=== PATIENT | female | born 1960 | race Caucasian/White ===

== ENCOUNTER 2017-03-12 10:37 | Emergency (ER) | payer MEDICARE, OTHER, SELFPAY ==
[2017-03-12 10:47] VITALS: RESP 28; TEMP 37.8; O2SAT 92; BMI 25.7
[2017-03-12 11:04] VITALS: BMI 86.0
--- NOTE | 2017-03-12 11:10 | XR_ITS ---
XR chest 2V CLINICAL INDICATION: ITS.REASON: SHORTNESS OF AIR ORDERING PHYSICIAN: Gerry Santiago MD PATIENT AGE: 56 years COMPARISON: None FINDINGS: Unremarkable cardiovascular structures. There is mild coarsening of the bronchovascular markings which may be seen with bronchitis. Please correlate clinically. No lobar consolidation or collapse. There is some increased density in right paratracheal region but may be related to patient rotation and overlying vasculature. Nonrotated follow-up may confirm. There is mild thoracic kyphosis with minimal loss of height anteriorly of T4, T5, and T6 which may be chronic. Please correlate clinically. IMPRESSION: Possible bronchitis, see above for detail
--- NOTE | 2017-03-12 11:17 | [facility]H.EDSOB ---
ED Disposition Clinical Impression: COPD exacerbation, Tobacco consumption, Acute exacerbation of chronic obstructive airways disease Disposition: Home, Self-Care Condition on Discharge: Fair Additional Instructions: 1- stop smoking completely. 2- start abx 3- duoneb q 4 4- medroil dose pack 5- see pcp in am 6- to returnif not better Prescriptions: Benzonatate [Tessalon Perle 100mg Cap] 100 mg PO Q4HP PRN #30 cap PRN Reason: Congestion Azithromycin [Z-Jason 250mg Tab] 250 mg PO UD DOSE PK #6 tab methylPREDNISolone [Medrol] 4 mg PO DIRECTED #21 tab.ds.pk Referrals: Sandra Orozco APRN [Primary Care Provider] - - Critical Care Critical Care Time: No Attestation: On , the high probability of a clinically significant, sudden or life threatening deterioration of the following system(s) required my full and direct attention, intervention and personal management. The time I documented below is in addition to time spent performing reported procedures but includes the following listed in this critical care notation. Medical Decision Making Vital Signs: 03/12/17 10:47 03/12/17 12:11 03/12/17 13:15 Temperature 100.1 F H 99.8 F H Temperature Source Oral Oral Pulse Rate 101 H Pulse Rate [Right Brachial] 82 Respiratory Rate 28 H 24 Blood Pressure [110/42] 107/54 Blood Pressure Mean [110/42] 71 Blood Pressure Source [110/42] Automatic Cuff Blood Pressure Position [110/42] Supine 02 Sat by Pulse Oximetry 92 L 99 Oxygen Delivery Method Room Air Nasal Cannula 03/12/17 13:22 Temperature Temperature Source Pulse Rate 101 H Pulse Rate [Right Brachial] Respiratory Rate Blood Pressure [110/42] Blood Pressure Mean [110/42] Blood Pressure Source [110/42] Blood Pressure Position [110/42] 02 Sat by Pulse Oximetry Oxygen Delivery Method - Lab Data Lab Results 03/12/17 11:30: WBC 8.8, RBC 4.92, Hgb 14.3, Hct 43.9, MCV 89.2, MCH 29.1, MCHC 32.6, RDW 15.1, Plt Count 203, MPV 7.4, Neut % (Auto) 89.1 H, Lymph % (Auto) 7.1 L, [place] % (Auto) 2.8, Eos % (Auto) 0.7, Baso % (Auto) 0.2, Neut # (Auto) 7.8, Lymph # (Auto) 0.6 L, [place] # (Auto) 0.3, Eos # (Auto) 0.1, Baso # (Auto) 0.0, Total Counted 100, Neutrophils % (Manual) 91 H, Lymphocytes % (Manual) 3 L, Monocytes % (Manual) 6, Platelet Estimate Normal, RBC Morphology Normal 03/12/17 11:30: Sodium 135 L, Potassium 3.2 L, Chloride 96 L, Carbon Dioxide 30, Anion Gap 12.2, BUN 15, Creatinine 1.17 H, Estimated Creat Clear 38, Estimated GFR 48 L, Est GFR ( Amer) 57 L, Glucose 101, Calcium 7.8 L, Total Bilirubin 0.3, AST 26, ALT 23, Alkaline Phosphatase 154 H, Total Creatine Kinase 293 H, CK-MB (CK-2) 0.7, CK-MB (CK-2) Rel Index 0.2, Troponin I < 0.02, Total Protein 6.8, Albumin 3.2 L, Globulin 3.6 H, Albumin/Globulin Ratio 0.9 L 03/12/17 11:30: Lactic Acid 1.0 03/12/17 11:30: Influenza Type A Ag Negative, Influenza Type B Ag Negative, Group A Strep Rapid Negative 03/12/17 13:58: Specimen Source Right radial, O2 % 28, ABG pH 7.42, ABG pCO2 38.1, ABG pO2 62.3 L, ABG HCO3 24.3, ABG Total CO2 25.5, ABG O2 Saturation 93, ABG Base Excess -0.1, Augie Test Acceptable Result diagrams: 03/12/17 11:30 03/12/17 11:30 Orders (Tests/Meds): ED MEDICATIONS Discontinued Medications Generic Name Dose Route Start Last Admin Trade Name Freq PRN Reason Stop Dose Admin Albuterol/Ipratropium 3 ml 03/12/17 11:10 03/12/17 13:00 Duoneb 3ml [facility] 03/12/17 11:11 3 ml ONCE ONE Administration Albuterol/Ipratropium 3 ml 03/12/17 12:34 Duoneb 3ml [facility] 03/12/17 12:35 ONCE ONE Hydrocodone Bit/Homatropine Methylb 1 each 03/12/17 11:23 03/12/17 11:55 Hydocan 5mg Tablet PO 03/12/17 11:24 1 each ONCE ONE Administration Ceftriaxone Sodium 1 gm/ 50 mls @ 100 mls/hr 03/12/17 11:23 03/12/17 11:58 Sodium Chloride IV 03/12/17 11:52 100 mls/hr ONCE ONE Administration Methylprednisolone Sodium Succinate 125 mg
--- NOTE | 2017-03-12 11:20 | ED_ITS ---
ED Disposition Clinical Impression: COPD exacerbation, Tobacco consumption, Acute exacerbation of chronic obstructive airways disease Disposition: Home, Self-Care Condition on Discharge: Fair Additional Instructions: 1- stop smoking completely. 2- start abx 3- duoneb q 4 4- medroil dose pack 5- see pcp in am 6- to returnif not better Prescriptions: Benzonatate [Tessalon Perle 100mg Cap] 100 mg PO Q4HP PRN #30 cap PRN Reason: Congestion Azithromycin [Z-Jason 250mg Tab] 250 mg PO UD DOSE PK #6 tab methylPREDNISolone [Medrol] 4 mg PO DIRECTED #21 tab.ds.pk Referrals: Sandra Orozco APRN [Primary Care Provider] - - Critical Care Critical Care Time: No Attestation: On , the high probability of a clinically significant, sudden or life threatening deterioration of the following system(s) required my full and direct attention, intervention and personal management. The time I documented below is in addition to time spent performing reported procedures but includes the following listed in this critical care notation. Medical Decision Making Vital Signs: 03/12/17 10:47 03/12/17 12:11 03/12/17 13:15 Temperature 100.1 F H 99.8 F H Temperature Source Oral Oral Pulse Rate 101 H Pulse Rate [Right Brachial] 82 Respiratory Rate 28 H 24 Blood Pressure [110/42] 107/54 Blood Pressure Mean [110/42] 71 Blood Pressure Source [110/42] Automatic Cuff Blood Pressure Position [110/42] Supine 02 Sat by Pulse Oximetry 92 L 99 Oxygen Delivery Method Room Air Nasal Cannula 03/12/17 13:22 Temperature Temperature Source Pulse Rate 101 H Pulse Rate [Right Brachial] Respiratory Rate Blood Pressure [110/42] Blood Pressure Mean [110/42] Blood Pressure Source [110/42] Blood Pressure Position [110/42] 02 Sat by Pulse Oximetry Oxygen Delivery Method - Lab Data Lab Results 03/12/17 11:30: WBC 8.8, RBC 4.92, Hgb 14.3, Hct 43.9, MCV 89.2, MCH 29.1, MCHC 32.6, RDW 15.1, Plt Count 203, MPV 7.4, Neut % (Auto) 89.1 H, Lymph % (Auto) 7.1 L, [place] % (Auto) 2.8, Eos % (Auto) 0.7, Baso % (Auto) 0.2, Neut # (Auto) 7.8 , Lymph # (Auto) 0.6 L, [place] # (Auto) 0.3, Eos # (Auto) 0.1, Baso # (Auto) 0.0, Total Counted 100, Neutrophils % (Manual) 91 H, Lymphocytes % (Manual) 3 L, Monocytes % (Manual) 6, Platelet Estimate Normal, RBC Morphology Normal 03/12/17 11:30: Sodium 135 L, Potassium 3.2 L, Chloride 96 L, Carbon Dioxide 30 , Anion Gap 12.2, BUN 15, Creatinine 1.17 H, Estimated Creat Clear 38, Estimated GFR 48 L, Est GFR ( Amer) 57 L, Glucose 101, Calcium 7.8 L, Total Bilirubin 0.3, AST 26, ALT 23, Alkaline Phosphatase 154 H, Total Creatine Kinase 293 H, CK-MB (CK-2) 0.7, CK-MB (CK-2) Rel Index 0.2, Troponin I < 0.02, Total Protein 6.8, Albumin 3.2 L, Globulin 3.6 H, Albumin/Globulin Ratio 0.9 L 03/12/17 11:30: Lactic Acid 1.0 03/12/17 11:30: Influenza Type A Ag Negative, Influenza Type B Ag Negative, Group A Strep Rapid Negative 03/12/17 13:58: Specimen Source Right radial, O2 % 28, ABG pH 7.42, ABG pCO2 38.1, ABG pO2 62.3 L, ABG HCO3 24.3, ABG Total CO2 25.5, ABG O2 Saturation 93, ABG Base Excess -0.1, Augie Test Acceptable Result diagrams: 03/12/17 11:30 03/12/17 11:30 Orders (Tests/Meds): ED MEDICATIONS Discontinued Medications Generic Name Dose Rout
[2017-03-12 11:43] LABS: Basophils % 0.2 % (0.1-2.0); Eosinophils # 0.1 K/mm3 (0.0-0.4); Eosinophils % 0.7 % (0.1-12.0); Hematocrit 43.9 % (37.0-47.0); Hemoglobin 14.3 g/dL (12.2-16.2); Lymphocytes # 0.6 K/mm3 (0.7-4.5); Lymphocytes % 7.1 K/mm3 (10-50); Mean Corpuscular HGB Conc 32.6 g/dL (31.8-35.4); Mean Corpuscular Hemoglobin 29.1 pg (27.0-31.2); Mean Corpuscular Volume 89.2 fl (81-99); Mean Platelet Volume 7.4 fl (7.4-10.4); Monocytes # 0.3 K/mm3 (0.1-1.0); Monocytes % 2.8 % (1.7-9.3); Neutrophils # 7.8 K/mm3 (1.8-7.8); Neutrophils % 89.1 % (37.0-80.0); Platelet Count 203 K/mm3 (142-424); Red Blood Count 4.92 M/mm3 (4.20-5.40); Red Cell Distribution Width 15.1 % (11.5-17.5); White Blood Count 8.8 K/mm3 (4.8-10.8)
--- NOTE | 2017-03-12 11:43 | PC.NURSE ---
DR. CHRISTINA FLORES
[2017-03-12 11:48] LABS: MANUAL DIFFERENTIAL MANUAL DIFFERENTIAL (MANUAL DIFF)
[2017-03-12 12:07] LABS: Alanine Aminotransferase 23 U/L (12-78); Albumin Level 3.2 gm/dL (3.4-5.0); Albumin/Globulin Ratio 0.9 (1.1-1.8); Alkaline Phosphatase 154 U/L (46-116); Anion Gap 12.2 mEq/L (5-15); Aspartate Amino Transferase 26 U/L (15-37); Bilirubin,Total 0.3 mg/dL (0.2-1.0); Blood Urea Nitrogen 15 mg/dL (7-18); CKMB Relative Index 0.2 U/L (0-4.0); Calcium 7.8 mg/dL (8.5-10.1); Carbon Dioxide 30 mmol/L (21.0-32.0); Chloride 96 mmol/L (98-107); Creatine Kinase 293 U/L (26-140); Creatine Kinase MB 0.7 mg/ml (0.0-3.6); Creatinine Clearance Estimated 38 mg/ml (0-300); Creatinine,Serum 1.17 mg/dL (0.55-1.02); Estimated Glomerular Filt Rate 48 ml/min (>60); GFR (African American) 57 ML/MIN (>60); Globulin 3.6 gm/dl (1.3-3.2); Glucose 101 mg/dL (74-106); Potassium 3.2 mmoL/L (3.5-5.1); Sodium 135 mmol/L (136-145); Strep Scrn Group A (Rapid) Negative (Negative); Total Protein,Serum 6.8 gm/dL (6.4-8.2); Troponin I < 0.02 ng/ml (0.00-0.06)
[2017-03-12 12:11] VITALS: BP 107/54; PULSE 82; RESP 24; TEMP 37.7; O2SAT 99
[2017-03-12 12:26] LABS: Lymphocytes % 3 % (10-50); Monocytes % 6 % (2-9); Neutrophils % 91 % (42-76); Platelet Estimate Normal; Total Cells Counted 100
[2017-03-12 12:36] LABS: RBC Morphology Normal
[2017-03-12 13:15] VITALS: PULSE 100; PULSE 101
[2017-03-12 13:22] VITALS: PULSE 101
[2017-03-12 14:06] LABS: ABG Base Excess -0.1 mmol/L (-2.4-2.3); ABG HCO3 24.3 mmhg (22.0-26.0); ABG Oxygen Saturation 93 % (90-100); ABG PCO2 38.1 mmhg (35.0-45.0); ABG PH 7.42 mmol/L (7.35-7.45); ABG PO2 62.3 mmhg (80-100); ABG TCO2 25.5 mmhg (23-27)
[2017-03-12 14:07] LABS: Allen's Test Acceptable; Oxygen 28 %; Source Right Radial
[2017-03-12 15:07] VITALS: BP 121/78; PULSE 76; RESP 20; O2SAT 98
== END 2017-03-12 15:07 | disposition home or self-care (01) ==
PROVIDERS: Emergency Provider Emergency Medicine; PCP Nurse Practitioner Family
DX: J44.1 Chronic obstructive pulmonary disease with (acute) exacerbation (principal); F17.210 Nicotine dependence, cigarettes, uncomplicated
CPT/HCPCS: 71046; 80053; 82550; 82553; 82803; 83605; 84484; 85007; 85025; 87040; 87275; 87276; 87430; 96365; 96375; 99282; 99284

== ENCOUNTER → 2017-03-15 14:09 | Outpatient (CLI) | payer MEDICARE, OTHER, SELFPAY ==
--- NOTE | 2017-03-15 14:19 | XR_ITS ---
XR chest 2V HISTORY: Shortness of breath ITS.REASON: SOB ORDERING PHYSICIAN: Sandra Orozco PATIENT AGE: 56 years COMPARISON: 11/28/2016 FINDINGS: The cardiomediastinal silhouette and pulmonary vascularity are within normal limits. There is mild perihilar bronchial thickening. There is once again noted vague opacity overlying the right second rib possibly related to rib fracture not significantly changed. There is some patchy density present within the lingula having developed in the interval. The remaining lungs are clear.. No effusions No acute bony abnormalities. IMPRESSION: Patchy atelectasis or infiltrate within the lingula bronchial thickening suggesting bronchopneumonia No change right upper lobe nodular opacity
== END ==
PROVIDERS: PCP Nurse Practitioner Family; Visit Provider Nurse Practitioner Family
DX: R06.02 Shortness of breath (principal)
CPT/HCPCS: 71046

== ENCOUNTER → 2017-03-18 11:57 | Outpatient (CLI) | payer MEDICARE, OTHER, SELFPAY ==
--- NOTE | 2017-03-18 12:05 | XR_ITS ---
XR chest 2V HISTORY: ITS.REASON: SHORTNESS OF BREATH ORDERING PHYSICIAN: Sandra Orozco PATIENT AGE: 56 years COMPARISON: 03/15/2017 FINDINGS: The cardiomediastinal silhouette and pulmonary vascularity are within normal limits. Patchy density once again noted within the lingula consistent with an area of atelectasis and/or infiltrate overall not significantly changed. The remaining lungs are clear. There is a faint nodular opacity in the left midlung and may represent a granuloma as seen on the previous chest CT. No acute bony abnormalities. IMPRESSION: No change lingular atelectasis and/or infiltrate
== END ==
PROVIDERS: PCP Nurse Practitioner Family; Visit Provider Nurse Practitioner Family
DX: R06.02 Shortness of breath (principal)
CPT/HCPCS: 71046

== ENCOUNTER 2017-03-29 12:00 | Outpatient (CLI) | payer MEDICARE, OTHER, SELFPAY ==
[2017-03-29 12:10] VITALS: BP 101/63; PULSE 88; RESP 18; TEMP 36.6; O2SAT 94
== END 2017-03-29 12:30 | disposition home or self-care (01) ==
PROVIDERS: PCP Family Medicine; Visit Provider Family Medicine
DX: M81.0 Age-related osteoporosis without current pathological fracture (principal)
CPT/HCPCS: 96372; J0897

== ENCOUNTER → 2017-04-23 15:43 | Outpatient (CLI) | payer MEDICARE, OTHER, SELFPAY ==
--- NOTE | 2017-04-23 15:54 | XR_ITS ---
XR chest 2V HISTORY: ITS.REASON: BRONCHOPNEUMONIA ORDERING PHYSICIAN: Sandra Orozco PATIENT AGE: 56 years COMPARISON: 03/18/2017 FINDINGS: The cardiomediastinal silhouette and pulmonary vascularity are within normal limits. Patchy density is present in the left lung base consistent with atelectasis and/or infiltrate. This has developed since the previous exam. Faint nodular opacity in the left midlung is unchanged.. No acute bony abnormalities. IMPRESSION: Atelectasis or infiltrate in the left lung base
== END ==
PROVIDERS: PCP Nurse Practitioner Family; Visit Provider Nurse Practitioner Family
DX: J18.0 Bronchopneumonia, unspecified organism (principal)
CPT/HCPCS: 71046

== ENCOUNTER → 2017-07-05 14:14 | Outpatient (CLI) | payer MEDICARE, OTHER, SELFPAY ==
--- NOTE | 2017-07-05 14:19 | XR_ITS ---
XR elbow RT min 3V Ordering Physician: Sandra Orozco Patient Age: 57 years: Female HISTORY pain and swelling for 2 weeks. No reported injury: ITS.REASON: RT ELBOW PAIN TECHNIQUE: 3 views right elbow COMPARISON :None FINDINGS No fracture nor dislocation. No joint effusion. Anterior fat pad appears normal. The radial head is intact. The joint space appears well-maintained at the elbow.. Some minimal dystrophic calcification along the proximal margin of the olecranon. No radiopaque foreign bodies evident. IMPRESSION: Right elbow intact.. Unremarkable Joint space well maintained. No joint effusion.
== END ==
PROVIDERS: PCP Nurse Practitioner Family; Visit Provider Nurse Practitioner Family
DX: M25.521 Pain in right elbow (principal)
CPT/HCPCS: 73080

== ENCOUNTER → 2017-08-09 15:33 | Outpatient (CLI) | payer MEDICARE, OTHER, SELFPAY ==
[2017-08-09 16:24] LABS: Alanine Aminotransferase 32 U/L (12-78); Albumin Level 3.7 gm/dL (3.4-5.0); Albumin/Globulin Ratio 1.2 (1.1-1.8); Alkaline Phosphatase 176 U/L (46-116); Anion Gap 10.4 mEq/L (5-15); Aspartate Amino Transferase 29 U/L (15-37); Bilirubin,Total 0.2 mg/dL (0.2-1.0); Blood Urea Nitrogen 17 mg/dL (7-18); C-Reactive Protein < 0.2 mg/L (0.0-0.9); Calcium 9.3 mg/dL (8.5-10.1); Carbon Dioxide 32 mmol/L (21.0-32.0); Chloride 102 mmol/L (98-107); Creatinine,Serum 1.11 mg/dL (0.55-1.02); Estimated Glomerular Filt Rate 50 ml/min (>60); GFR (African American) 61 ML/MIN (>60); Globulin 3.1 gm/dl (1.3-3.2); Glucose 89 mg/dL (74-106); Magnesium 1.9 mg/dL (1.4-2.2); Potassium 3.4 mmoL/L (3.5-5.1); Sodium 141 mmol/L (136-145); Total Protein,Serum 6.8 gm/dL (6.4-8.2); Uric Acid 4.1 mg/dL (2.6-7.2)
[2017-08-09 17:26] LABS: Erythrocyte Sedimentation Rate 22 mm/hr (0-30)
[2017-08-11 17:28] LABS: RA Latex Turbid. 11.6 IU/mL (0.0-13.9)
[2017-08-13 06:10] LABS: Antinuclear Antibodies, IFA Negative (.)
== END ==
PROVIDERS: Visit Provider Nurse Practitioner Family
DX: M19.90 Unspecified osteoarthritis, unspecified site (principal)
CPT/HCPCS: 36415; 80053; 83735; 84550; 85651; 86038; 86140; 86431

== ENCOUNTER → 2017-08-16 11:25 | Outpatient (CLI) | payer MEDICARE, OTHER, SELFPAY ==
--- NOTE | 2017-08-16 11:36 | XR_ITS ---
XR foot LT min 3V Ordering Physician: Sandra Orozco Patient Age: 57 years: Female HISTORY: ITS.REASON: LEFT FOOT INJURY left foot pain and injury TECHNIQUE: 3 views left foot COMPARISON :October 2016 left foot FINDINGS No acute fracture or findings. Mild sclerosis at the old healed fracture of the proximal phalanx third toe. Progressive healing since 2017. Minor sclerosis at the first MTP joint may reflect some early degenerative changes here but unimpressive. The small focal exostosis arising from medial midportion first metatarsal and directed towards the plantar aspect of the foot, is again noted. This feature best seen on lateral view. It measures at least 6 mm length & may be palpable . Tarsalsunremarkable IMPRESSION: No acute fracture or findings. Other observations as in text
== END ==
PROVIDERS: PCP Nurse Practitioner Family; Visit Provider Nurse Practitioner Family
DX: S99.922A Unspecified injury of left foot, initial encounter (principal)
CPT/HCPCS: 73630

== ENCOUNTER → 2017-08-21 08:16 | Outpatient (CLI) | payer MEDICARE, OTHER, SELFPAY ==
--- NOTE | 2017-08-21 08:18 | US_ITS ---
US liver HISTORY: ITS.REASON: ELEVATED ALKALINE PHOSPHATASE LEVEL ORDERING PHYSICIAN: Sandra Orozco PATIENT AGE: 57 years COMPARISON: 09/27/2016 FINDINGS: PANCREAS:Unremarkable. No obvious mass or abnormal fluid collection. No ductal dilatation LIVER:No focal liver lesions demonstrated. Homogeneous echogenicity. No intrahepatic biliary ductal dilatation evident. There is appropriate direction of blood flow within the renal vein does not appear dilated RIGHT KIDNEY:Unremarkable. Normal size and echogenicity. No hydronephrosis There is been prior cholecystectomy. The common bile duct is normal at 3 mm. IMPRESSION: Prior cholecystectomy otherwise negative hepatic ultrasound
== END ==
PROVIDERS: PCP Nurse Practitioner Family; Visit Provider Nurse Practitioner Family
DX: R74.8 Abnormal levels of other serum enzymes (principal)
CPT/HCPCS: 76705

== ENCOUNTER → 2017-09-05 14:28 | Outpatient (CLI) | payer MEDICARE, OTHER, SELFPAY ==
--- NOTE | 2017-09-05 14:32 | XR_ITS ---
XR foot RT min 3V HISTORY: ITS.REASON: RT HEEL PAIN ORDERING PHYSICIAN: Sandra Orozco PATIENT AGE: 57 years COMPARISON: Is FINDINGS: No fracture or dislocation. No lytic or blastic change. There is normal mineralization.. The joint spaces are well-preserved. No significant degenerative/arthritic changes. No erosive changes evident. No heel spurs are evident IMPRESSION: Negative, no acute finding
== END ==
PROVIDERS: PCP Nurse Practitioner Family; Visit Provider Nurse Practitioner Family
DX: M79.671 Pain in right foot (principal)
CPT/HCPCS: 73630

== ENCOUNTER → 2017-09-16 08:44 | Outpatient (CLI) | payer MEDICARE, OTHER, SELFPAY ==
--- NOTE | 2017-09-16 08:46 | MM_ITS ---
MM Dig screening mamm BI w/CAD ORDERING PHYSICIAN : Jacek Boyer MD PATIENT AGE: 57 years GENDER: Female COMPARISON: September 2016. . & August 2010 Outside studies from March 2015 INDICATION: ITS.REASON: screening No hormones. No new complaints. Previous stereotactic biopsy left breast. Family history. Mother with breast cancer. TECHNIQUE: Standard CC and MLO images were obtained. R2 CAD reviewed. FINDINGS: Moderate density breast bilaterally. Prior films are helpful and supportive there is stable appearance to the overall architecture. Numerous scattered benign-appearing calcifications similar to previous studies in both breast. No dominant mass nor suspicious calcifications RIGHT BREAST:Stable overall appearance with no significant new findings. Stable benign-appearing focal dense calcifications. No significant new mass densities LEFT BREAST:Overall stable appearing calcifications. These include some stable small calcification superior left breast.] With Metallic clip seen in this region at site of previous biopsy superior left breast but. Given overall stability since last year follow-up in one year adequate IMPRESSION: ... No significant new findings. Follow-up in one year Numerous bilateral benign-appearing calcifications bilaterally . overall calcifications appear fairly stable with no significant change. Bilateral follow-up in one year recommended, and should be encouraged BI-RADS Category: 2 Benign Finding(s) RECOMMENDED FOLLOW-UP: 1YR 1 YEAR FOLLOW-UP (A letter has been sent to the patient regarding results of the study.)
--- NOTE | 2017-09-16 08:46 | XR_ITS ---
XR DEXA axial skeleton HISTORY: ITS.REASON: screening ORDERING PHYSICIAN: Jacek Boyer MD PATIENT AGE: 57 years COMPARISON: [id number] FINDINGS: The BMD measured at the left femoral neck is 0.745 g/cm squared with a T score of -2.1. This is considered Osteopenic according to the World Health Organization criteria. Fracture risk is Moderate. Treatment is advised. The L1 L4 density as described -1.6. There is been a 9% increase in bone density in the lumbar spine and a 6% increased density in bone density of the hips compared to the previous exam The scanogram images show a curvilinear area of decreased attenuation in the left femoral head. This could be due to artifact. Avascular necrosis could have a similar appearance. Left hip films may be of value. IMPRESSION: Osteopenia with moderate fracture risk. Treatment suggested. Recommend follow-up exam September 2019. Possible avascular sclerosis of the left femoral head which may be better evaluated with plain films of the hip
== END ==
PROVIDERS: PCP Nurse Practitioner Family; Visit Provider Obstetrics & Gynecology
DX: Z12.31 Encounter for screening mammogram for malignant neoplasm of breast (principal); Z13.820 Encounter for screening for osteoporosis; Z78.0 Asymptomatic menopausal state
CPT/HCPCS: 77067; 77080

== ENCOUNTER 2017-10-04 11:55 | Outpatient (CLI) | payer MEDICARE, OTHER, SELFPAY ==
[2017-10-04 12:30] VITALS: BP 117/70; PULSE 81; RESP 18; TEMP 36.8; O2SAT 100
== END 2017-10-04 12:45 | disposition home or self-care (01) ==
LOC: INF 12:11
PROVIDERS: PCP Nurse Practitioner Family; Visit Provider Family Medicine
DX: M81.0 Age-related osteoporosis without current pathological fracture (principal)
CPT/HCPCS: 96372; J0897

== ENCOUNTER → 2017-10-15 14:49 | Outpatient (CLI) | payer MEDICARE, OTHER, SELFPAY ==
--- NOTE | 2017-10-15 14:52 | XR_ITS ---
XR hip LT 2-3V w/pelvis HISTORY: Left hip pain ITS.REASON: left hip necrosis ORDERING PHYSICIAN: Jacek Boyer MD PATIENT AGE: 57 years COMPARISON: None FINDINGS: No fracture or dislocation is evident. No significant degenerative change. No lytic or blastic change. Unremarkable soft tissues. Left femoral head has an unremarkable appearance. There is no radiographic evidence of avascular necrosis. The abnormality noted on the DEXA scan represents overlapping bone. IMPRESSION: Negative left hip
== END ==
PROVIDERS: PCP Nurse Practitioner Family; Visit Provider Obstetrics & Gynecology
DX: M87.052 Idiopathic aseptic necrosis of left femur (principal)
CPT/HCPCS: 73502

== ENCOUNTER → 2017-10-31 12:07 | Outpatient (CLI) | payer MEDICARE, OTHER, SELFPAY ==
--- NOTE | 2017-10-31 12:16 | XR_ITS ---
XR chest 2V HISTORY: ITS.REASON: CHEST PAIN,EDEMA ORDERING PHYSICIAN: Sandra Orozco PATIENT AGE: 57 years COMPARISON: 04/23/2017 FINDINGS: There is borderline cardiomegaly. The pulmonary vessels are however somewhat congested. There is mild coarsening of the bronchovascular markings. Minimal atelectatic or fibrotic changes are present within the lingula. There is mild kyphosis of the thoracic spine. No lobar consolidation or collapse is evident. IMPRESSION: Pulmonary venous congestion suggesting mild CHF with chronic peribronchial inflammatory changes
[2017-10-31 14:38] LABS: Alanine Aminotransferase 23 U/L (12-78); Albumin Level 3.6 gm/dL (3.4-5.0); Albumin/Globulin Ratio 1.2 (1.1-1.8); Alkaline Phosphatase 158 U/L (46-116); Anion Gap 9.8 mEq/L (5-15); Aspartate Amino Transferase 17 U/L (15-37); Bilirubin,Total 0.3 mg/dL (0.2-1.0); Blood Urea Nitrogen 21 mg/dL (7-18); Calcium 9.2 mg/dL (8.5-10.1); Carbon Dioxide 31 mmol/L (21.0-32.0); Chloride 105 mmol/L (98-107); Creatinine,Serum 1.28 mg/dL (0.55-1.02); Estimated Glomerular Filt Rate 43 ml/min (>60); Free T4 (Free Thyroxine) 0.91 ng/dl (0.76-1.46); GFR (African American) 52 ML/MIN (>60); Globulin 2.9 gm/dl (1.3-3.2); Glucose 79 mg/dL (74-106); Potassium 4.8 mmoL/L (3.5-5.1); Sodium 141 mmol/L (136-145); Thyroid Stimulating Hormone 2.13 uIU/ml (0.358-3.740); Total Protein,Serum 6.5 gm/dL (6.4-8.2)
== END ==
PROVIDERS: PCP Nurse Practitioner Family; Visit Provider Nurse Practitioner Family
DX: R06.02 Shortness of breath (principal); R01.1 Cardiac murmur, unspecified; R07.9 Chest pain, unspecified; R09.89 Other specified symptoms and signs involving the circulatory and respiratory systems; J44.1 Chronic obstructive pulmonary disease with (acute) exacerbation
CPT/HCPCS: 36415; 71046; 80053; 83880; 84439; 84443

== ENCOUNTER → 2017-11-05 14:13 | Outpatient (CLI) | payer MEDICARE, OTHER, SELFPAY ==
--- NOTE | 2017-11-05 14:14 | CA_ITS ---
PROCEDURE: 2-D M-mode and color Doppler study INDICATIONS FOR THE TEST: Chest pain + COPD+ Heart Murmur+ Tobacco Smoking Palpitations Fatigue Syncope Edema+ Hypertension Diabetes Mellitus Rheumatic Fever SOB+SALDANA+Obesity Hyperlipidemia Family History HD Additional History CHF, TIA, HOME O2. PATIENT INFORMATION HEIGHT: 58 WEIGHT:168 GENDER: Female B/P:115/69 2-D/M-MODE INTERPRETATION: 2-D MEASUREMENTS OBSERVED VALUES IN CMS Right Ventricular Dimension (RVDd) 2.4 Interventricular Septum (Thickness)(IVsd) 1.3 Left Ventricular Internal Dimensions(LVIDd) 4.9 Left Ventricular Posterior Wall (Thickness)(LVPWd) 0.8 Aortic Root 2.9 Aortic Cusp Separation 1.9 Left Atrial Dimensions (LAD) 3.8 2D 1. Left atrium is mildly enlarged, left ventricle is normal size, mild concentric left ventricular hypertrophy, visually estimated ejection fraction 55% with no obvious regional wall motion abnormality. 2. The right atrium and right ventricle are mildly enlarged with normal contractility. 3. The aortic valve is thickened and calcified leaflet continue to display good mobility. 4. The mitral and tricuspid valve leaflets are minimally thickened. 5. The pulmonic valve is poorly visualized. 6. No significant pericardial effusion noted. DOPPLER INTERROGATION: Doppler interrogation of the aortic, mitral and tricuspid valvular presence of moderate aortic, mild mitral and tricuspid regurgitation, tricuspid regurgitant jet velocity is insufficient for calculation of the right ventricular systolic pressure, diastolic parameters are inconclusive. CONCLUSION: 1. Normal left ventricular size, preserved left ventricular systolic function, visually estimated ejection fraction 55% no wall motion abnormality, diastolic parameters are inconclusive. 2. Mildly enlarged with normal contractility. 3. Moderate aortic, mild mitral and tricuspid regurgitation 4. No significant pericardial effusion noted.
--- NOTE | 2017-11-05 14:14 | CI_ITS ---
Cerebrovascular Exam Indications: 785.9 Bruit. IMPRESSIONS 1. The bilateral vertebral arteries are patent with normal antegrade flow. 2. Study suggests 20-49% stenosis involving the right internal carotid artery, lower end of scale. 3. Study suggests less than 20% stenosis involving the left internal carotid artery. 4. Tortuous carotid arteries seen bilaterally. Carotid duplex study. Complete study and Doppler flow study including spectral analysis, color and posey scale imaging. Height: Height: 152.4cm. Height: 60in. Weight: Weight: 76.2kg. Weight: 167.7lb. Body mass index: BMI: 32.8kg/m^2. Body surface area: BSA: 1.83m^2. Location: Vascular laboratory. Patient status: Outpatient. Tables: Arterial flow: + +--------+--------+ Location V sys V ed + +--------+--------+ Right CCA - proximal 123cm/s 22cm/s + +--------+--------+ Right CCA - distal 88cm/s 31.4cm/s + +--------+--------+ Right ECA 112cm/s -------- + +--------+--------+ Right ICA - proximal 73.7cm/s 26cm/s + +--------+--------+ Right ICA - mid 97.7cm/s 32.4cm/s + +--------+--------+ Right ICA - distal 62.9cm/s 26.5cm/s + +--------+--------+ Right vertebral 58.1cm/s -------- + +--------+--------+ Left CCA - proximal 94.8cm/s 20.1cm/s + +--------+--------+ Left CCA - distal 69.2cm/s 21.1cm/s + +--------+--------+ Left ECA 59.4cm/s -------- + +--------+--------+ Left ICA - proximal 86.9cm/s 28cm/s + +--------+--------+ Left ICA - mid 113cm/s 35.8cm/s + +--------+--------+ Left ICA - distal 130cm/s 54.2cm/s + +--------+--------+ Left vertebral 40.3cm/s -------- + +--------+--------+ Velocity ratios: + + + + + + Right, V sys Right, V ed Left, V sys Left, V ed + + + + + + Max ICA/dist CCA 1.11 1.03 1.88 2.57 + + + + + + (Report amended ) Electronically signed by: Augie Syed [id number]
== END ==
PROVIDERS: PCP Nurse Practitioner Family; Visit Provider Internal Medicine Cardiovascular Disease
DX: R06.02 Shortness of breath (principal); R09.89 Other specified symptoms and signs involving the circulatory and respiratory systems
CPT/HCPCS: 93306; 93880

== ENCOUNTER → 2017-11-08 08:46 | Outpatient (CLI) | payer MEDICARE, OTHER, SELFPAY ==
--- NOTE | 2017-11-08 08:49 | US_ITS ---
US kidney retroperitoneal comp Ordering Physician: Sandra Orozco Patient Age: 57 years: Female HISTORY: ITS.REASON: EDEMA, DECREASED URIN OUTPUT Decreased renal function TECHNIQUE: Ultrasound both kidneys COMPARISON :Ultrasound right upper quadrant August 2017 reveal 9.8 cm length right kidney. FINDINGS The kidneys reveal no hydronephrosis nor mass. There does appear to be some mild cortical thinning of both kidneys. Would only question perhaps very slight relative hypoechoic appearance at renal pyramids, versus the overlying renal cortex. Nonspecific in this case we can be reflection of early intrinsic medical renal disease Good color Doppler flow to both kidneys observed. Right kidney:. Adequate size with right kidney measuring 9.9 cm x 4.2 cm x 7.4 cm. Left kidney: measuring 8.6 cm x 4.25 cm x 4.9 cm. . included limited images of the spleen appear upper normal size, unremarkable IMPRESSION: ...... No hydronephrosis or mass. Kidneys appear normal/adequate in size bilaterally. Mild cortical thinning Bilateral
== END ==
PROVIDERS: PCP Nurse Practitioner Family; Visit Provider Nurse Practitioner Family
DX: R60.9 Edema, unspecified (principal); R34 Anuria and oliguria
CPT/HCPCS: 76770

== ENCOUNTER → 2017-11-14 12:12 | Outpatient (CLI) | payer MEDICARE, OTHER, SELFPAY ==
[2017-11-14 13:44] LABS: Anion Gap 8.6 mEq/L (5-15); Blood Urea Nitrogen 20 mg/dL (7-18); Calcium 8.7 mg/dL (8.5-10.1); Carbon Dioxide 35 mmol/L (21.0-32.0); Chloride 103 mmol/L (98-107); Creatinine,Serum 1.27 mg/dL (0.55-1.02); Estimated Glomerular Filt Rate 43 ml/min (>60); GFR (African American) 52 ML/MIN (>60); Potassium 3.6 mmoL/L (3.5-5.1); Sodium 143 mmol/L (136-145)
[2017-11-14 14:34] LABS: Glucose 82 mg/dL (74-106)
== END ==
PROVIDERS: PCP Nurse Practitioner Family; Visit Provider Internal Medicine Cardiovascular Disease
DX: I50.9 Heart failure, unspecified (principal); J44.1 Chronic obstructive pulmonary disease with (acute) exacerbation; R01.1 Cardiac murmur, unspecified; R06.02 Shortness of breath; R07.89 Other chest pain; R09.89 Other specified symptoms and signs involving the circulatory and respiratory systems; R60.9 Edema, unspecified; Z87.891 Personal history of nicotine dependence
CPT/HCPCS: 36415; 80048; 83880

== ENCOUNTER → 2017-11-20 09:55 | Outpatient (CLI) | payer MEDICARE, OTHER, SELFPAY ==
[2017-11-20 10:35] VITALS: PULSE 79; PULSE 82
== END ==
PROVIDERS: PCP Nurse Practitioner Family; Visit Provider Nurse Practitioner Family
DX: R06.02 Shortness of breath (principal)
CPT/HCPCS: 94060; 94640

== ENCOUNTER → 2017-11-27 12:37 | Outpatient (CLI) | payer MEDICARE, OTHER, SELFPAY ==
[2017-11-27 15:21] LABS: Anion Gap 11.8 mEq/L (5-15); Blood Urea Nitrogen 19 mg/dL (7-18); Carbon Dioxide 33 mmol/L (21.0-32.0); Chloride 101 mmol/L (98-107); Creatinine,Serum 1.21 mg/dL (0.55-1.02); Estimated Glomerular Filt Rate 46 ml/min (>60); GFR (African American) 55 ML/MIN (>60); Potassium 3.8 mmoL/L (3.5-5.1); Sodium 142 mmol/L (136-145)
[2017-11-27 16:02] LABS: Glucose 86 mg/dL (74-106)
== END ==
PROVIDERS: PCP Nurse Practitioner Family; Visit Provider Physician Assistant
DX: I50.9 Heart failure, unspecified (principal); J44.1 Chronic obstructive pulmonary disease with (acute) exacerbation; R01.1 Cardiac murmur, unspecified; R06.09 Other forms of dyspnea; R07.89 Other chest pain; R09.89 Other specified symptoms and signs involving the circulatory and respiratory systems; R42 Dizziness and giddiness; R60.9 Edema, unspecified; Z86.73 Personal history of transient ischemic attack (TIA), and cerebral infarction without residual deficits; Z87.891 Personal history of nicotine dependence
CPT/HCPCS: 36415; 80048; 83880

== ENCOUNTER → 2017-12-09 12:22 | Outpatient (CLI) | payer MEDICARE, OTHER, SELFPAY ==
--- NOTE | 2017-12-09 12:24 | NM_ITS ---
History and Indications: Congestive heart failure, tobacco use, family history, chest pain, shortness of breath and fatigue Procedure: Patient received a 0.4 mg of intravenous Lexiscan, resting heart rate was 79 bpm resting blood pressure 119/70, with Lexiscan maximum heart rate achieved was 102 bpm just less than 85% of the maximum predicted heart rate and a blood pressure is 106/70. With Lexiscan patient complained of shortness of breath and stomach discomfort Electrocardiogram: Resting electrocardiogram showed sinus rhythm, with Lexiscan there is less than 1.[address] segment depression from the baseline EKG. The EKG portion of the Lexiscan Myoview is nondiagnostic. Cardiac stress and resting SPECT images: Cardiac stress and rest SPECT images were obtained using technetium 99 Myoview 31.8 mCi at stress and 10.3 mCi at rest, gated SPECT further analysis of segmental wall motion and calculation of ejection fraction also done. Cardiac stress and rest SPECT images show uniform myocardial activity without segmental perfusion abnormality, computer derived ejection fraction is 62% with no regional wall motion abnormality, right ventricle is normal size and contractility. Conclusion: 1. The EKG portion of the Lexiscan Myoview is nondiagnostic. 2. No scintigraphic evidence of reversible ischemia seen, computer ejection fraction is 62% with no regional wall motion abnormality, right ventricle is normal size and contractility. 3. Normal Lexiscan Myoview study.
== END ==
PROVIDERS: PCP Nurse Practitioner Family; Visit Provider Internal Medicine
DX: I50.9 Heart failure, unspecified (principal); J44.1 Chronic obstructive pulmonary disease with (acute) exacerbation; R01.1 Cardiac murmur, unspecified; R06.09 Other forms of dyspnea; R07.89 Other chest pain; R09.89 Other specified symptoms and signs involving the circulatory and respiratory systems; R42 Dizziness and giddiness; R60.9 Edema, unspecified; Z86.73 Personal history of transient ischemic attack (TIA), and cerebral infarction without residual deficits; Z87.891 Personal history of nicotine dependence
CPT/HCPCS: 78452; 93017; A9502; J2785

== ENCOUNTER → 2017-12-25 07:44 | Outpatient (CLI) | payer MEDICARE, OTHER, SELFPAY ==
--- NOTE | 2017-12-25 07:46 | CT_ITS ---
CT chest wo con HISTORY: Chest pain short of breath. Edema ITS.REASON: tobacco use, dyspnea ORDERING PHYSICIAN: Harris Hill MD PATIENT AGE: 57 years COMPARISON: Previous CT chest 12/06/2016 Technique: No no IV contrast utilized. Helical Axial images obtained. From these axial,] Degenerative disease in the CT will return Sagittal and coronal reformatted images are also generated and reviewed. All CT scans at the facility use one or more dose reduction, viz: automated exposure control, ma/kV adjustment per patient size (including targeted exams where dose is matched to indication, i.e. head), or iterative reconstruction technique. FINDINGS: No significant new findings at the chest Lungs well expanded and clear with no active disease. No pneumonia.. Thin Linear areas scarring and atelectasis at the left base both at the inferior lingula and LLL are again seen, with diffuse perhaps slightly more evident today.. Vs 2017. At least 4 Stable small calcified granulomas at left lung base, LLL again noted.. Benign feature. No pleural effusion nor pleural lesions. No pleural thickening. Mediastinum. No significant adenopathy. Calcified subcarinal nodes collection reflects old granulomatous disease. HEART: Unremarkable. Normal heart size. Coronary artery calcification. No pericardial effusion. Bones. T-spine stable minor degenerative changes. Stable sclerotic area at the anterolateral second rib supports is benign nature Uppermost abdomen. No significant additional findings. The cholecystectomy. . IMPRESSION: No significant new findings at chest. No focal pneumonia. Only Thin linear areas of scarring and atelectasis left lung base noted No significant mass. Only benign calcified granulomatousObserved Stable sclerotic area second rib. . Heart normal size. Coronary artery calcification. No CHF
== END ==
PROVIDERS: PCP Nurse Practitioner Family; Visit Provider Internal Medicine Cardiovascular Disease
DX: F17.200 Nicotine dependence, unspecified, uncomplicated (principal); I50.9 Heart failure, unspecified; J44.1 Chronic obstructive pulmonary disease with (acute) exacerbation; R01.1 Cardiac murmur, unspecified; R06.00 Dyspnea, unspecified; R07.9 Chest pain, unspecified; R09.89 Other specified symptoms and signs involving the circulatory and respiratory systems; R42 Dizziness and giddiness; R60.9 Edema, unspecified
CPT/HCPCS: 71250

== ENCOUNTER → 2018-01-20 11:13 | Outpatient (CLI) | payer MEDICARE, OTHER, SELFPAY ==
[2018-01-20 13:43] LABS: Anion Gap 15.6 mEq/L (5-15); Blood Urea Nitrogen 20 mg/dL (7-18); Calcium 9.1 mg/dL (8.5-10.1); Carbon Dioxide 31 mmol/L (21.0-32.0); Chloride 99 mmol/L (98-107); Creatinine,Serum 1.23 mg/dL (0.55-1.02); Estimated Glomerular Filt Rate 45 ml/min (>60); GFR (African American) 54 ML/MIN (>60); Glucose 92 mg/dL (74-106); Potassium 3.6 mmoL/L (3.5-5.1); Sodium 142 mmol/L (136-145)
== END ==
PROVIDERS: PCP Nurse Practitioner Family; Visit Provider Urology
DX: I50.9 Heart failure, unspecified (principal); J44.1 Chronic obstructive pulmonary disease with (acute) exacerbation; R01.1 Cardiac murmur, unspecified; R06.09 Other forms of dyspnea; R09.89 Other specified symptoms and signs involving the circulatory and respiratory systems; R41.82 Altered mental status, unspecified; R42 Dizziness and giddiness; R60.9 Edema, unspecified; Z72.0 Tobacco use; Z86.73 Personal history of transient ischemic attack (TIA), and cerebral infarction without residual deficits; Z87.891 Personal history of nicotine dependence
CPT/HCPCS: 36415; 80048

== ENCOUNTER → 2018-01-22 15:16 | Outpatient (CLI) | payer MEDICARE, OTHER, SELFPAY ==
--- NOTE | 2018-01-22 15:18 | CT_ITS ---
CT head/brain wo con HISTORY: Extraluminal status changes 5 days ago that lasted 10 minutes ITS.REASON: altered mental status ORDERING PHYSICIAN: Anna Castle PATIENT AGE: 57 years COMPARISON: MR brain from April 2011. Also CT head from February 2008 TECHNIQUE: Axial images obtained without contrast. Brain and bone windows reviewed. All CT scans at the facility use one or more dose reduction, viz: automated exposure control, ma/kV adjustment per patient size (including targeted exams where dose is matched to indication, i.e. head), or iterative reconstruction technique. FINDINGS: No acute intracranial findings.. As seen on the previous thousand 12 MRI the patient does have some modest chronic small vessel deep white matter ischemic gliotic changes at cerebral hemispheres. Likely account for subtle low-density area at the right frontal lobe axial image 21 subcortical region minor feature. Likely similar a feature previous CT head study 2007 No acute findings. No significant new findings. The posey-white matter interface appear satisfactory. The ventricles and basal cisterns appear satisfactory. The skull is intact. Bone windows satisfactory. Visualized paranasal sinuses and orbits are clear. The mastoid air cells, middle ear and IACs unremarkable. Posterior fossa is unremarkable.. IMPRESSION: ------ 1. No acute intracranial findings.. No significant new findings 2. No mass effect or mass lesion evident on this noncontrast study 3.. Mild chronic small vessel deep white matter ischemic/gliotic changes are again seen similar to prior studies.
== END ==
PROVIDERS: PCP Nurse Practitioner Family; Visit Provider Urology
DX: R41.82 Altered mental status, unspecified (principal)
CPT/HCPCS: 70450

== ENCOUNTER → 2018-02-07 08:59 | Outpatient (CLI) | payer MEDICARE, OTHER, SELFPAY ==
--- NOTE | 2018-02-07 09:03 | MR_ITS ---
MR head/brain wo con HISTORY: Dizziness, memory loss, visual changes ITS.REASON: TIA, VISUAL CHANGES, MEMORY CHANGES ORDERING PHYSICIAN: Sandra Orozco PATIENT AGE: 57 years Comparison: 04/12/2011 TECHNIQUE: Standard multiplanar multiecho sequences are performed without contrast. FINDINGS: There is mild generalized motion artifact which does decrease fine detail. No midline shift, mass effect, intracranial hemorrhage, or hydrocephalus is evident. The cerebellopontine angles, cerebellum, and brainstem are unremarkable. There are multiple periventricular and subcortical T2 white matter hyperintensities consistent with ischemic gliotic change from microvascular disease. These have shown some increase in number compared to the previous study. Small T2 white matter hyperintensity is present in the left aspect of the kelsey not readily apparent previously. These areas do not show restricted diffusion nor demonstrate contrast enhancement.. No pituitary mass. There is mild mucosal thickening of the ethmoid sinuses and moderate mucosal thickening in the left maxillary sinus. No mastoid effusion. IMPRESSION: 1. No acute intracranial findings. 2. Slight progression of the periventricular and subcortical T2 white matter hyperintensities consistent with ischemic gliotic change from microvascular disease. 3. Sinus disease
== END ==
PROVIDERS: PCP Nurse Practitioner Family; Visit Provider Nurse Practitioner Family
DX: G45.9 Transient cerebral ischemic attack, unspecified (principal); H53.9 Unspecified visual disturbance; R41.3 Other amnesia
CPT/HCPCS: 70551

== ENCOUNTER → 2018-02-10 15:24 | Outpatient (CLI) | payer MEDICARE, OTHER, SELFPAY ==
--- NOTE | 2018-02-10 15:42 | XR_ITS ---
XR foot LT min 3V HISTORY: Posttraumatic pain ITS.REASON: INJURY OF LEFT FOOT ORDERING PHYSICIAN: Sandra Orozco PATIENT AGE: 57 years COMPARISON: 08/16/2017 FINDINGS: No acute fracture or dislocation. Exostosis within the midportion of the first metatarsal not significant change. This projects toward the plantar surface of the foot. There is some sclerosis of the proximal phalanx of the third toe centrally and may be due to an old fracture. IMPRESSION: No acute finding. No significant change
== END ==
PROVIDERS: PCP Nurse Practitioner Family; Visit Provider Nurse Practitioner Family
DX: S99.922A Unspecified injury of left foot, initial encounter (principal)
CPT/HCPCS: 73630

== ENCOUNTER 2018-04-08 12:02 | Outpatient (CLI) | payer MEDICARE, OTHER, SELFPAY ==
[2018-04-08 12:14] VITALS: BP 116/75; PULSE 93; RESP 18; TEMP 36.4; O2SAT 93
== END 2018-04-08 12:30 | disposition home or self-care (01) ==
LOC: INF 12:02
PROVIDERS: Visit Provider Obstetrics & Gynecology
DX: M81.0 Age-related osteoporosis without current pathological fracture (principal)
CPT/HCPCS: 96372; J0897

== ENCOUNTER → 2018-04-15 11:38 | Outpatient (CLI) | payer MEDICARE, OTHER, SELFPAY ==
[2018-04-15 11:53] LABS: Basophils % 0.1 % (0.1-2.0); Eosinophils % 0.4 % (0.1-12.0); Hematocrit 45.3 % (37.0-47.0); Hemoglobin 14.6 g/dL (12.2-16.2); Lymphocytes # 2.4 K/mm3 (0.7-4.5); Lymphocytes % 27.2 % (10-50); Mean Corpuscular HGB Conc 32.3 g/dL (31.8-35.4); Mean Corpuscular Hemoglobin 27.8 pg (27.0-31.2); Mean Corpuscular Volume 86.1 fl (81-99); Mean Platelet Volume 7.5 fl (7.4-10.4); Monocytes # 0.4 K/mm3 (0.1-1.0); Monocytes % 4.1 % (1.7-9.3); Neutrophils # 6.1 K/mm3 (1.8-7.8); Neutrophils % 68.2 % (37.0-80.0); Platelet Count 260 K/mm3 (142-424); Red Blood Count 5.27 M/mm3 (4.20-5.40); Red Cell Distribution Width 15.8 % (11.5-17.5); White Blood Count 8.9 K/mm3 (4.8-10.8)
[2018-04-15 12:32] LABS: Blood Urea Nitrogen 19 mg/dL (7-18); Chloride 95 mmol/L (98-107)
[2018-04-15 12:33] LABS: Albumin Level 3.9 gm/dL (3.4-5.0); Albumin/Globulin Ratio 1.1 (1.1-1.8); Alkaline Phosphatase 234 U/L (46-116); Globulin 3.5 gm/dl (1.3-3.2); Total Protein,Serum 7.4 gm/dL (6.4-8.2)
[2018-04-15 13:03] LABS: Alanine Aminotransferase 18 U/L (12-78); Anion Gap 14.8 mEq/L (5-15); Aspartate Amino Transferase 16 U/L (15-37); Bilirubin,Total 0.4 mg/dL (0.2-1.0); Calcium 8.7 mg/dL (8.5-10.1); Carbon Dioxide 33 mmol/L (21.0-32.0); Creatinine,Serum 1.27 mg/dL (0.55-1.02); Estimated Glomerular Filt Rate 43 ml/min (>60); GFR (African American) 52 ML/MIN (>60); Glucose 114 mg/dL (74-106); Sodium 140 mmol/L (136-145); Thyroid Stimulating Hormone 3.22 uIU/ml (0.358-3.740)
[2018-04-15 13:11] LABS: Potassium 2.8 mmoL/L (3.5-5.1)
[2018-04-17 06:13] LABS: Folate >20.0 ng/mL (>3.0); Vitamin B12 734 pg/mL (232-1245)
== END ==
PROVIDERS: Visit Provider Podiatrist
DX: R53.1 Weakness (principal); M79.673 Pain in unspecified foot
CPT/HCPCS: 36415; 80053; 82607; 82746; 84443; 85025

== ENCOUNTER → 2018-04-18 13:40 | Outpatient (CLI) | payer MEDICARE, OTHER, SELFPAY ==
[2018-04-18 14:14] LABS: Potassium 2.8 mmoL/L (3.5-5.1)
== END ==
PROVIDERS: Visit Provider Nurse Practitioner Family
DX: E87.6 Hypokalemia (principal)
CPT/HCPCS: 36415; 84132

== ENCOUNTER → 2018-04-21 13:24 | Outpatient (CLI) | payer MEDICARE, OTHER, SELFPAY ==
[2018-04-21 13:42] LABS: Potassium 3.6 mmoL/L (3.5-5.1)
== END ==
PROVIDERS: Visit Provider Nurse Practitioner Family
DX: E87.6 Hypokalemia (principal)
CPT/HCPCS: 36415; 84132

== ENCOUNTER → 2018-04-23 12:01 | Outpatient (CLI) | payer MEDICARE, OTHER, SELFPAY ==
--- NOTE | 2018-04-23 12:04 | NM_ITS ---
History and Indications: Tobacco use, family history, chest pain, shortness of breath, palpitations and fatigue Procedure: Patient received a 0.4 mg of intravenous Lexiscan, resting heart rate was 82 bpm resting blood pressure 130/71, with Lexiscan maximum heart rate achieved was 108 bpm which is less than 85% of the maximum predicted heart rate and a blood pressure was 113/65. With Lexiscan patient complained shortness of breath and stomach discomfort Electrocardiogram: Resting electrocardiogram showed sinus rhythm, with Lexiscan there is less than 1.[address] segment depression noted from the baseline EKG. The EKG portion of the Lexiscan Myoview is nondiagnostic. Cardiac stress and resting SPECT images: Cardiac stress and resting SPECT images were obtained using technetium 99 Myoview 32.1 mCi stress and 10.9 mCi at rest. Gated SPECT further analysis of segmental wall motion and calculation of the ejection fraction also done. Cardiac stress and resting SPECT images show uniform myocardial activity without segmental perfusion abnormality, computer derived ejection fraction is over 65% with no regional wall motion abnormality, right ventricle is normal size and contractility. Conclusion: 1. The EKG portion of the Lexiscan Myoview is nondiagnostic. 2. No scintigraphic evidence of reversible ischemia seen, computer derived ejection fraction is over 65% with no regional wall motion abnormality, right ventricle is normal size and contractility. 3. Normal Lexiscan Myoview study.
--- NOTE | 2018-04-23 14:28 | US_ITS ---
US Arterial Ankle Brachial Ind History: Claudication, rest pain, smoker, ITS.REASON: Skin Changes ORDERING PHYSICIAN: Harris Hill MD PATIENT AGE: 57 years TECHNIQUE: Segmental pressures obtained of both right and left leg. These are compared to brachial blood pressure to yield index at each level sampled including summary SUNDAY. The data sheets from the procedure are available in PACS FINDINGS Rest study only performed today No prior studies available for comparison. Blood pressures reported are in millimeters mercury. RIGHT LEG SUNDAY = 1.01. RIGHT LEG TBI=0.7 Brachial BP: 118 Thigh BP: 115 Calf BP: 120 Ankle PT: 120 Ankle DP : 118 Digit =87 LEFT LEG SUNDAY = 1.05 LEFT LEG TBI= 0.5 Brachial BPD: 117 Thigh BP: 124 Calf BP: 113 Ankle PT:125 Ankle DP: 105 Digit = 60 Pulses and waveforms: Normal IMPRESSION: The ABIs as reported above are within normal limits. Waveforms and pulses are also unremarkable. The left TBI is slightly low at 0.5 which may be seen with small vessel disease. The right TBI is lower limits of normal
== END ==
PROVIDERS: PCP Nurse Practitioner Family; Visit Provider Internal Medicine Cardiovascular Disease
DX: I10 Essential (primary) hypertension (principal); R00.0 Tachycardia, unspecified; R06.02 Shortness of breath; R07.9 Chest pain, unspecified; R09.89 Other specified symptoms and signs involving the circulatory and respiratory systems; R68.89 Other general symptoms and signs; L97.511 Non-pressure chronic ulcer of other part of right foot limited to breakdown of skin
CPT/HCPCS: 78452; 93017; 93922; A9502; J2785

== ENCOUNTER → 2018-04-29 14:22 | Outpatient (CLI) | payer MEDICARE, OTHER, SELFPAY ==
[2018-04-29 16:16] LABS: Potassium 3.1 mmoL/L (3.5-5.1)
== END ==
PROVIDERS: Visit Provider Nurse Practitioner Family
DX: E87.6 Hypokalemia (principal)
CPT/HCPCS: 36415; 84132

== ENCOUNTER → 2018-05-05 13:43 | Outpatient (CLI) | payer MEDICARE, OTHER, SELFPAY ==
[2018-05-05 14:54] LABS: Potassium 3.3 mmoL/L (3.5-5.1)
== END ==
PROVIDERS: Visit Provider Nurse Practitioner Family
DX: E87.6 Hypokalemia (principal)
CPT/HCPCS: 36415; 84132

== ENCOUNTER → 2018-06-09 15:42 | Outpatient (CLI) | payer MEDICARE, OTHER, SELFPAY ==
[2018-06-09 17:48] LABS: Anion Gap 12.9 mEq/L (5-15); Blood Urea Nitrogen 21 mg/dL (7-18); Calcium 8.8 mg/dL (8.5-10.1); Carbon Dioxide 32 mmol/L (21.0-32.0); Chloride 101 mmol/L (98-107); Creatinine,Serum 1.23 mg/dL (0.55-1.02); Estimated Glomerular Filt Rate 45 ml/min (>60); GFR (African American) 54 ML/MIN (>60); Glucose 90 mg/dL (74-106); Potassium 3.9 mmoL/L (3.5-5.1); Sodium 142 mmol/L (136-145)
== END ==
PROVIDERS: Visit Provider Internal Medicine Cardiovascular Disease
DX: E78.5 Hyperlipidemia, unspecified (principal); I10 Essential (primary) hypertension; R06.02 Shortness of breath; Z72.0 Tobacco use
CPT/HCPCS: 36415; 80048

== ENCOUNTER → 2018-07-01 12:20 | Outpatient (CLI) | payer MEDICARE, OTHER, SELFPAY ==
[2018-07-01 13:26] LABS: Blood Urea Nitrogen 29 mg/dL (7-18); Calcium 9.5 mg/dL (8.5-10.1); Carbon Dioxide 33 mmol/L (21.0-32.0); Chloride 100 mmol/L (98-107); Creatinine,Serum 1.31 mg/dL (0.55-1.02); Estimated Glomerular Filt Rate 41 ml/min (>60); GFR (African American) 50 ML/MIN (>60); Glucose 92 mg/dL (74-106); Sodium 141 mmol/L (136-145)
== END ==
PROVIDERS: Internal Medicine; Visit Provider Internal Medicine Cardiovascular Disease
DX: E78.5 Hyperlipidemia, unspecified (principal); I10 Essential (primary) hypertension; R00.2 Palpitations; R06.02 Shortness of breath; R07.9 Chest pain, unspecified
CPT/HCPCS: 36415; 80048; 83880

== ENCOUNTER 2018-07-11 15:00 | Outpatient (RCR) | payer MEDICARE, OTHER, SELFPAY ==
--- NOTE | 2018-06-17 10:13 | [facility].PTOPEV ---
PT Outpatient Evaluation Rehab PT Outpatient Evaluation Start: 06/17/18 09:11 Freq: Status: Active Protocol: Document 06/17/18 09:12 WINIFRED (Rec: 06/17/18 10:13 WINIFRED [id number]) Electronically Signed By Frank Berrios PT 06/17/18 09:12 Outpatient Therapy Subjective History Subjective History This is the initial physical therapy evaluation for Casi Cruz. Pt reports she has had B foot pain for years but reports last 5-6 months has shown sig. increase . Pt reports she has spurs on her heels. Pt reports she also has been told she has neuropathy but is not diabetic . Pt reports she has constant burning in whole foot but point tenderness in met heads and heel. Chief Complaint Pain Swelling Paresthesia Weakness Other Symptom Type Ache Throb Sharp Dull Stabbing Burning Numbness Tingling Shooting Symptoms Relieved By Rest/Positioning Symptoms Aggravated By Standing Physical Activity Walking Current Functional Limitations Housework Recreation Activity Walking Stairs Symptom Description Constant but Variable Level of pain today (0-10) 4 Pain scale - at its best (0-10) 4 Pain scale - at its worst (0-10) 9 Ankle/Foot Eval Gait Observation General Gait Pattern Observation Antalgic Gait Assistive Device Ambulation Assistive Device None Palpation Tenderness bilateral Ankle/Foot Palpation Findings Tenderness Ankle/Foot Palpation Overall Comment B PF origin and Achilles insertion ATF TTP negative PTF TTP negative CF TTP negative Deltoid ligament TTP negative ROM left Ankle/Foot Dorsiflexion w/Knee Extended 15 Active Range Motion (degrees) Ankle/Foot Plantar Flexion Active Range 40 of Motion (degrees)
== END 2018-07-11 15:05 | disposition home or self-care (01) ==
LOC: PT 15:00
PROVIDERS: Visit Provider Podiatrist
DX: M76.62 Achilles tendinitis, left leg (principal); M72.2 Plantar fascial fibromatosis
CPT/HCPCS: 97010; 97014; 97035; 97110; 97163; G0283

== ENCOUNTER → 2018-09-15 09:54 | Outpatient (POV) | payer MEDICARE, OTHER, SELFPAY ==
--- NOTE | 2018-09-15 15:50 | XR_ITS ---
XR foot LT min 3V HISTORY: ITS.REASON: LT FOOT PAIN ORDERING PHYSICIAN: Caroline Jain MD PATIENT AGE: 58 years COMPARISON: 02/10/2018 FINDINGS: There remains a small area of exostosis involving the mid shaft the first metatarsal as well as mild sclerosis of the proximal phalanx third toe. No fracture or dislocation. No lytic or blastic change. There is a thin linear area of calcification along the plantar surface of the calcaneus not readily apparent on the previous exam. IMPRESSION: 1. There is a new thin linear area of calcified patient noted at the plantar surface of the calcaneus. This could reflect an avulsion type injury or an area of calcification from inflammation such as plantar fasciitis. 2. No other significant changes apparent
== END ==
PROVIDERS: PCP Nurse Practitioner Family; Visit Provider Specialist
DX: M79.672 Pain in left foot (principal); M54.16 Radiculopathy, lumbar region; R29.898 Other symptoms and signs involving the musculoskeletal system
CPT/HCPCS: 73630; 95886; 95910

== ENCOUNTER → 2018-09-19 10:15 | Outpatient (CLI) | payer MEDICARE, OTHER, SELFPAY ==
[2018-09-19 12:16] LABS: Alanine Aminotransferase 11 U/L (12-78); Albumin Level 3.6 gm/dL (3.4-5.0); Alkaline Phosphatase 197 U/L (46-116); Aspartate Amino Transferase 17 U/L (15-37); Bilirubin,Direct 0.1 mg/dL (0.0-0.2); Bilirubin,Indirect 0.2 mg/dL (0.0-0.9); Bilirubin,Total 0.3 mg/dL (0.2-1.0); Chol/HDL Ratio 3.2 (1-3.5); Cholesterol 158 mg/dL (140-200); HDL Cholesterol 49 mg/dL (29-89); LDL Cholesterol 86 mg/dL (0-130); Total Protein,Serum 6.6 gm/dL (6.4-8.2); Triglycerides 113 mg/dL (30-200); VLDL Cholesterol 23 mg/dL (0-40)
== END ==
PROVIDERS: Visit Provider Internal Medicine Interventional Cardiology
DX: E78.00 Pure hypercholesterolemia, unspecified (principal)
CPT/HCPCS: 36415; 80061; 80076

== ENCOUNTER 2018-10-15 11:13 | Outpatient (CLI) | payer MEDICARE, OTHER, SELFPAY ==
[2018-10-15 14:28] VITALS: BP 111/65; PULSE 83; RESP 18; TEMP 36.4; O2SAT 96
== END 2018-10-15 11:30 | disposition home or self-care (01) ==
LOC: INF 11:13
PROVIDERS: Visit Provider Obstetrics & Gynecology
DX: M85.89 Other specified disorders of bone density and structure, multiple sites (principal)
CPT/HCPCS: 96372; J0897

== ENCOUNTER → 2018-12-04 09:22 | Outpatient (CLI) | payer MEDICARE, OTHER, SELFPAY ==
[2018-12-04 11:36] LABS: Alanine Aminotransferase 13 U/L (12-78); Albumin Level 3.6 gm/dL (3.4-5.0); Alkaline Phosphatase 146 U/L (46-116); Aspartate Amino Transferase 13 U/L (15-37); Bilirubin,Direct 0.1 mg/dL (0.0-0.2); Bilirubin,Indirect 0.2 mg/dL (0.0-0.9); Bilirubin,Total 0.3 mg/dL (0.2-1.0); Chol/HDL Ratio 2.5 (1-3.5); Cholesterol 130 mg/dL (140-200); HDL Cholesterol 51 mg/dL (29-89); LDL Cholesterol 65 mg/dL (0-130); Total Protein,Serum 6.5 gm/dL (6.4-8.2); Triglycerides 71 mg/dL (30-200); VLDL Cholesterol 14 mg/dL (0-40)
== END ==
PROVIDERS: Visit Provider Internal Medicine Interventional Cardiology
DX: E78.00 Pure hypercholesterolemia, unspecified (principal)
CPT/HCPCS: 36415; 80061; 80076

== ENCOUNTER → 2018-12-25 14:30 | Outpatient (CLI) | payer MEDICARE, OTHER, SELFPAY ==
--- NOTE | 2018-12-25 14:36 | XR_ITS ---
PROCEDURE: XR CHEST 2V CLINICAL HISTORY: COPD Cough, shortness of air, smoker COMPARISON: CXR2V XR chest 2V from 03/18/2017 CXR2V XR chest 2V from 04/23/2017 CXR2V XR chest 2V from 10/31/[address] chest wo con from 12/25/2017 FINDINGS: Normal heart size. Loop recorder device is present along the anterior chest wall. There are mild fibrotic changes in the left lung base. No lobar consolidation or collapse. There is mild hyperinflation consistent with COPD. No acute bony abnormalities. IMPRESSION: COPD with chronic changes, no acute finding Dictated by: Augie Syed MD 12/25/2018 16:06 Electronically signed by Augie Syed MD in [facility] 12/25/2018 16:06
== END ==
PROVIDERS: PCP Nurse Practitioner Family; Visit Provider Nurse Practitioner Family
DX: J44.0 Chronic obstructive pulmonary disease with (acute) lower respiratory infection (principal)
CPT/HCPCS: 71046

== ENCOUNTER → 2019-03-20 10:12 | Outpatient (CLI) | payer MEDICARE, OTHER, SELFPAY ==
--- NOTE | 2019-03-20 10:16 | CT_ITS ---
PROCEDURE: CT SINUS WO CON CLINICAL HISTORY: CHRONIC SINUSITIS The little the COMPARISON: HEADWO CT head/brain wo con from 01/22/2018 TECHNIQUE: Axial images obtained with sagittal and coronal reformats. All CT scans at the facility use one or more dose reduction, viz: automated exposure control, ma/kV adjustment per patient size (including targeted exams where dose is matched to indication, i.e. head), or iterative reconstruction technique. FINDINGS: There is mild mucosal thickening of the ethmoid sinuses. Frontal sinuses are unremarkable. Postsurgical changes are present involving the maxillary sinuses with bilateral antrostomies. There is mild mucosal thickening of the maxillary sinuses with some secretions layering posteriorly on the right with some interspersed gas. Suspect a small retention cyst in the left maxillary sinus laterally at 10 mm. The sphenoid sinus is unremarkable. The mastoid sinuses are unremarkable. The globes are unremarkable. Unremarkable appearing TMJs. IMPRESSION: Postsurgical changes with mild mucosal thickening of the ethmoid and maxillary sinuses. No air-fluid levels Dictated by: Augie Syed MD 03/21/2019 09:47 Electronically signed by Augie Syed MD in [facility] 03/21/2019 09:47
[2019-03-20 12:56] LABS: Blood Urea Nitrogen 29 mg/dL (7-18); Creatinine,Serum 0.95 mg/dL (0.55-1.02); Estimated Glomerular Filt Rate 60 ml/min (>60); GFR (African American) 73 ML/MIN (>60)
== END ==
PROVIDERS: PCP Nurse Practitioner Family; Visit Provider Allergy & Immunology
DX: J32.9 Chronic sinusitis, unspecified (principal)
CPT/HCPCS: 36415; 70486; 82565; 84520

== ENCOUNTER → 2019-03-26 08:06 | Outpatient (CLI) | payer MEDICARE, OTHER, SELFPAY ==
--- NOTE | 2019-03-26 08:30 | US_ITS ---
PROCEDURE: US ABDOMEN LIMITED CLINICAL INDICATION: ELEVATED LIVER ENZYMES COMPARISON: RUQ US RUQ-(ABD LTD)1ORGAN/QUAD/FU from 09/27/2016 FINDINGS: PANCREAS: Unremarkable. No obvious mass or abnormal fluid collection. No ductal dilatation LIVER: No focal liver lesions demonstrated. Homogeneous echogenicity. No intrahepatic biliary ductal dilatation evident. There is appropriate direction of blood flow within a non dilated portal vein RIGHT KIDNEY: Unremarkable. Normal size and echogenicity. No hydronephrosis GALLBLADDER: Status post cholecystectomy. Common bile duct is normal at 4 mm. IMPRESSION: Post cholecystectomy otherwise negative Dictated by: Augie Syed MD 03/26/2019 17:24 Electronically signed by Augie Syed MD in [facility] 03/26/2019 17:24
--- NOTE | 2019-03-26 09:00 | CT_ITS ---
PROCEDURE: CT CHEST W CON CLINCAL INDICATION: LUNG NODULE Lung nodule follow-up, cough COMPARISON: CHESTWO CT chest wo con from 12/25/2017 TECHNIQUE: IV Contrast: 75ml Optiray 350 Axial images obtained with sagittal and coronal reformats. All CT scans at the facility use one or more dose reduction, viz: automated exposure control, ma/kV adjustment per patient size (including targeted exams where dose is matched to indication, i.e. head), or iterative reconstruction technique. FINDINGS: There are coronary artery calcifications. There is mild ectasia of the ascending aorta. No mediastinal or hilar mass or adenopathy. There is scattered calcified mediastinal lymph nodes mainly in the subcarinal region. Coronary artery calcifications are present. Changes of COPD with with scattered areas of scarring and old granulomatous disease with scattered calcified granulomas.. No suspicious nodules apparent. No central obstructing lesions. Upper abdominal images show a small hypodensity in the left hepatic lobe at 4 mm unchanged a loop recorder device is in place in the subcutaneous tissues of the upper chest medially on the left. An area of sclerosis of the right 2nd rib anteriorly is noted unchanged. IMPRESSION: Overall stable CT appearance of the chest. COPD with scattered areas of scarring an old granulomatous disease. No suspicious nodules evident Dictated by: Augie Syed MD 03/27/2019 06:58 Electronically signed by Augie Syed MD in [facility] 03/27/2019 06:58
== END ==
PROVIDERS: PCP Nurse Practitioner Family; Visit Provider Nurse Practitioner Family
DX: R91.1 Solitary pulmonary nodule (principal); R74.8 Abnormal levels of other serum enzymes
CPT/HCPCS: 71260; 76705; Q9967

== ENCOUNTER 2019-04-23 12:00 | Outpatient (CLI) | payer MEDICARE, OTHER, SELFPAY ==
[2019-04-23 12:20] VITALS: BP 113/71; PULSE 70; RESP 20; O2SAT 98
--- NOTE | 2019-04-23 15:03 | XR_ITS ---
PROCEDURE: XR CHEST 2V CLINICAL HISTORY: HTN, PRE OP COMPARISON: XR CHEST PORTABLE from 12/26/2018 CT CHEST W CON from 03/26/2019 FINDINGS: The cardiomediastinal silhouette and pulmonary vascularity are within normal limits. The lungs are clear without infiltrates, suspicious nodules, or pleural effusions. There is a loop recorder device present. There is mild kyphosis of the thoracic spine the IMPRESSION: No acute findings. Dictated by: Augie Syed MD 04/23/2019 17:14 Electronically signed by Augie Syed MD in [facility] 04/23/2019 17:14
[2019-04-23 16:16] LABS: Basophils % 0.4 % (0.1-2.0); Eosinophils % 0.2 % (0.1-12.0); Hematocrit 41.1 % (37.0-47.0); Hemoglobin 12.4 g/dL (12.2-16.2); Lymphocytes % 25.5 % (10-50); Mean Corpuscular HGB Conc 30.3 g/dL (31.8-35.4); Mean Corpuscular Hemoglobin 24.3 pg (27.0-31.2); Mean Corpuscular Volume 80.3 fl (81-99); Mean Platelet Volume 7.9 fl (7.4-10.4); Monocytes # 0.3 K/mm3 (0.1-1.0); Monocytes % 4.3 % (1.7-9.3); Neutrophils # 5.5 K/mm3 (1.8-7.8); Neutrophils % 69.6 % (37.0-80.0); Platelet Count 243 K/mm3 (142-424); Red Blood Count 5.11 M/mm3 (4.20-5.40); Red Cell Distribution Width 16.3 % (11.5-17.5); White Blood Count 7.8 K/mm3 (4.8-10.8)
[2019-04-23 16:19] LABS: INR 1.16 (0.9-1.1)
[2019-04-23 17:23] LABS: Alanine Aminotransferase 23 U/L (9-52); Albumin Level 3.7 g/dL (3.4-5.0); Albumin/Globulin Ratio 1.4 (1.1-1.8); Alkaline Phosphatase 122 U/L (46-116); Anion Gap 12.8 mEq/L (5-15); Aspartate Amino Transferase 19 U/L (15-37); Bilirubin,Total 0.2 mg/dL (0.2-1.0); Blood Urea Nitrogen 19 mg/dL (7-18); Calcium 8.8 mg/dL (8.5-10.1); Carbon Dioxide 29 mmol/L (21.0-32.0); Chloride 108 mmol/L (98-107); Creatinine,Serum 1.02 mg/dL (0.55-1.02); Estimated Glomerular Filt Rate 55 ml/min (>60); GFR (African American) 67 ML/MIN (>60); Globulin 2.6 gm/dl (1.3-3.2); Glucose 82 mg/dL (74-106); Potassium 4.8 mmoL/L (3.5-5.1); Sodium 145 mmol/L (137-145); Total Protein,Serum 6.3 g/dL (6.4-8.2)
== END 2019-04-23 12:35 | disposition home or self-care (01) ==
PROVIDERS: PCP Nurse Practitioner Family; Visit Provider Nurse Practitioner Family
DX: Z01.818 Encounter for other preprocedural examination (principal); M81.0 Age-related osteoporosis without current pathological fracture; Z51.81 Encounter for therapeutic drug level monitoring
CPT/HCPCS: 36415; 71046; 80053; 85025; 85610; 96372; J0897

== ENCOUNTER → 2019-06-23 15:31 | Outpatient (CLI) | payer MEDICARE, OTHER, SELFPAY ==
--- NOTE | 2019-06-23 15:35 | XR_ITS ---
PROCEDURE: XR LUMBAR SPINE MIN 4V CLINICAL INDICATION: LUMBAGO W/SCIATICA COMPARISON: No exams were available for comparison FINDINGS: Mild chronic wedging of L5. Normal alignment. No acute fracture or dislocation. Mild facet arthritic changes L5-S1. Generalized vascular calcification. IMPRESSION: No acute findings. Dictated by: Augie Syed MD 06/23/2019 16:51 Electronically signed by Augie Syed MD in [facility] 06/23/2019 16:51
== END ==
PROVIDERS: PCP Nurse Practitioner Family; Visit Provider Nurse Practitioner Family
DX: M54.42 Lumbago with sciatica, left side (principal); M54.41 Lumbago with sciatica, right side
CPT/HCPCS: 72110

== ENCOUNTER → 2019-07-10 14:18 | Outpatient (CLI) | payer MEDICARE, OTHER, SELFPAY ==
--- NOTE | 2019-07-10 14:33 | MR_ITS ---
PROCEDURE: MR LUMBAR SPINE WO CON CLINICAL INDICATION: LUMBAGO W/SCIATICA LT SIDE, LUMBAGO W/SCIATICA RT SIDE, RADI Low back pain, bilateral leg numbness and tingling, stabbing pain and burning COMPARISON: BRAINWO MR head/brain wo con from 02/07/2018 XR LUMBAR SPINE MIN 4V from 06/23/2019 TECHNIQUE: Standard multiplanar multiecho sequences are performed without contrast. 3-D MIP and myelographic images are also rendered and reviewed FINDINGS: There is normal alignment. The spinal cord ends at the T12-L1 level. T11-T12, T12-L1, and L1-L2 have an unremarkable appearance. L2-L3: There is mild degenerative disc disease with concentric bulging disc along with facet and ligamentum hypertrophy causing moderate bilateral lateral recess narrowing and mild bilateral foraminal narrowing. L3-L4: Mild concentric bulging disc with mild facet ligamentum hypertrophy with mild bilateral lateral recess and foraminal narrowing L4-5: Mild bulging disc with facet ligamentum hypertrophy. There is moderate right lateral recess and mild left lateral recess narrowing. L5-S1: Minimal bulging disc with mild facet hypertrophic change. No extruded herniated disc or bony canal stenosis. IMPRESSION: 1. No canal stenosis or extruded herniated disc. 2. L2-L3: There is mild degenerative disc disease with concentric bulging disc along with facet and ligamentum hypertrophy causing moderate bilateral lateral recess narrowing and mild bilateral foraminal narrowing. 3. L3-L4: Mild concentric bulging disc with mild facet ligamentum hypertrophy with mild bilateral lateral recess and foraminal narrowing 4. L4-5: Mild bulging disc with facet ligamentum hypertrophy. There is moderate right lateral recess and mild left lateral recess narrowing. 5. L5-S1: Minimal bulging disc with mild facet hypertrophic change. Dictated by: Augie Syed MD 07/11/2019 10:55 Electronically signed by Augie Syed MD in [place] 07/11/2019 10:55
== END ==
PROVIDERS: PCP Nurse Practitioner Family; Visit Provider Nurse Practitioner Family
DX: M54.42 Lumbago with sciatica, left side (principal); M54.41 Lumbago with sciatica, right side; M54.16 Radiculopathy, lumbar region
CPT/HCPCS: 72148; 76376

== ENCOUNTER → 2019-08-10 15:28 | Outpatient (CLI) | payer MEDICARE, OTHER, SELFPAY ==
--- NOTE | 2019-08-10 16:09 | XR_ITS ---
PROCEDURE: XR CHEST CHP 1V CLINICAL HISTORY: POSSIBLE COVID PATIENT Cough and congestion with fever COMPARISON: XR CHEST 2V from 12/25/2018 XR CHEST PORTABLE from 12/26/2018 CT CHEST W CON from 03/26/2019 XR CHEST 2V from 04/23/2019 FINDINGS: The cardiomediastinal silhouette and pulmonary vascularity are within normal limits. There is a loop recorder device present Lungs are clear. No lobar consolidation or collapse. No acute bony anomalies. IMPRESSION: No change with no acute finding Dictated by: Augie Syed MD 08/10/2019 16:25 Electronically signed by Augie Syed MD in [facility] 08/10/2019 16:25
[2019-08-10 16:17] LABS: Basophils # 0.1 K/mm3 (0-0.2); Basophils % 0.6 % (0.1-2.0); Eosinophils % 0.1 % (0.1-12.0); Hematocrit 36.1 % (37.0-47.0); Hemoglobin 10.7 g/dL (12.2-16.2); Lymphocytes % 10.6 % (10-50); Mean Corpuscular HGB Conc 29.7 g/dL (31.8-35.4); Mean Corpuscular Volume 77.4 fl (81-99); Mean Platelet Volume 7.4 fl (7.4-10.4); Monocytes # 0.3 K/mm3 (0.1-1.0); Monocytes % 2.9 % (1.7-9.3); Neutrophils # 7.8 K/mm3 (1.8-7.8); Neutrophils % 85.8 % (37.0-80.0); Platelet Count 201 K/mm3 (142-424); Red Blood Count 4.67 M/mm3 (4.20-5.40); Red Cell Distribution Width 17.6 % (11.5-17.5); White Blood Count 9.1 K/mm3 (4.8-10.8)
[2019-08-10 16:27] LABS: MANUAL DIFFERENTIAL MANUAL DIFFERENTIAL (MANUAL DIFF)
[2019-08-10 20:57] LABS: Coronavirus 19 IgG Antibody Negative (Negative); Coronavirus 19 IgM Antibody Negative (Negative)
[2019-08-10 21:25] LABS: Lymphocytes % 21 % (10-50); Microcytosis 1+; Neutrophils % 79 % (42-76); Platelet Estimate Normal; Total Cells Counted 100
[2019-08-10 21:26] LABS: Hypochromasia 2+; Ovalocytes 1+; Target Cells 1+
== END ==
PROVIDERS: PCP Nurse Practitioner Family; Visit Provider Nurse Practitioner Family
DX: Z03.818 Encounter for observation for suspected exposure to other biological agents ruled out (principal)
CPT/HCPCS: 71010; 85007; 85025; 86328

== ENCOUNTER → 2019-09-03 09:51 | Outpatient (CLI) | payer MEDICARE, OTHER, SELFPAY ==
[2019-09-03 10:16] LABS: Basophils # 0.1 K/mm3 (0-0.2); Basophils % 0.6 % (0.1-2.0); Eosinophils % 0.4 % (0.1-12.0); Hematocrit 36.9 % (37.0-47.0); Hemoglobin 11.1 g/dL (12.2-16.2); Lymphocytes # 2.6 K/mm3 (0.7-4.5); Lymphocytes % 28.3 % (10-50); Mean Corpuscular HGB Conc 29.9 g/dL (31.8-35.4); Mean Corpuscular Hemoglobin 22.8 pg (27.0-31.2); Mean Corpuscular Volume 76.2 fl (81-99); Monocytes # 0.5 K/mm3 (0.1-1.0); Monocytes % 5.5 % (1.7-9.3); Neutrophils # 5.9 K/mm3 (1.8-7.8); Neutrophils % 65.2 % (37.0-80.0); Platelet Count 237 K/mm3 (142-424); Red Blood Count 4.85 M/mm3 (4.20-5.40); Red Cell Distribution Width 17.9 % (11.5-17.5); White Blood Count 9.1 K/mm3 (4.8-10.8)
[2019-09-03 11:13] LABS: Alanine Aminotransferase 11 U/L (12-78); Albumin Level 3.8 g/dl (3.5-5.0); Alkaline Phosphatase 125 U/L (38-126); Anion Gap 7.4 mEq/L (5-15); Aspartate Amino Transferase 22 U/L (14-36); Bilirubin,Indirect 0.2 mg/dL (0.0-0.9); Bilirubin,Total 0.2 mg/dl (0.2-1.3); Bilirubin,Unconjugated 0.2 mg/dL (0.0-1.1); Blood Urea Nitrogen 23 mg/dl (7-17); Calcium 9.3 mg/dl (8.4-10.2); Carbon Dioxide 33 mmol/L (22.0-30.0); Chloride 100 mmol/L (98-107); Chol/HDL Ratio 2.4 (1-3.5); Cholesterol 154 mg/dl (140-200); Estimated Glomerular Filt Rate 56 ml/min (>60); GFR (African American) 68 ML/MIN (>60); Glucose 91 mg/dl (74-100); HDL Cholesterol 65 mg/dl (40-60); Potassium 4.4 mmoL/L (3.5-5.1); Sodium 136 mmol/L (136-145); Total Protein,Serum 6.4 g/dl (6.3-8.2); Triglycerides 123 mg/dl (30-150); VLDL Cholesterol 25 mg/dL (0-40)
[2019-09-03 11:21] LABS: NT Pro Brain Natriuretic Pep. 331 pg/mL (0-125)
[2019-09-03 11:23] LABS: Direct LDL Cholesterol 66.97 mg/dL (100-129)
== END ==
PROVIDERS: Visit Provider Internal Medicine Interventional Cardiology
DX: E78.00 Pure hypercholesterolemia, unspecified (principal); D64.9 Anemia, unspecified; G93.3 Postviral and related fatigue syndromes; R06.02 Shortness of breath
CPT/HCPCS: 36415; 80048; 80061; 80076; 83880; 85025

== ENCOUNTER → 2019-09-10 10:35 | Outpatient (CLI) | payer MEDICARE, OTHER, SELFPAY ==
--- NOTE | 2019-09-10 11:25 | CT_ITS ---
PROCEDURE: CT HEAD/BRAIN WO CON CLINICAL INDICATION: H/A STUTTERING Sudden onset speech difficulty with dizziness and headache COMPARISON: HEADWO CT head/brain wo con from 01/22/2018 BRAINWO MR head/brain wo con from 02/07/2018 TECHNIQUE: Axial images obtained. All CT scans at the facility use one or more dose reduction, viz: automated exposure control, ma/kV adjustment per patient size (including targeted exams where dose is matched to indication, i.e. head), or iterative reconstruction technique. FINDINGS: No midline shift, mass effect, intracranial hemorrhage, hydrocephalus, or extra-axial fluid collection is evident. There is generalized atrophy with hypoattenuation of the periventricular white matter consistent with microangiopathic changes.. There is a defect within the left frontal bone. This is stable no mastoid effusion. No sinus air-fluid level. IMPRESSION: No acute intracranial finding Dictated by: Augie Syed MD 09/10/2019 18:01 Electronically signed by Augie Syed MD in [place] 09/10/2019 18:01
== END ==
PROVIDERS: PCP Nurse Practitioner Family; Visit Provider Nurse Practitioner Family
DX: R51 Headache (principal); F80.81 Childhood onset fluency disorder
CPT/HCPCS: 70450

== ENCOUNTER → 2019-09-16 13:52 | Outpatient (CLI) | payer MEDICARE, OTHER, SELFPAY ==
[2019-09-16 14:15] LABS: Adenovirus F 40/41, stool Not Detected (NotDetected); Astrovirus Not Detected (NotDetected); Campylobacter Not Detected (NotDetected); Clostridium Difficile A/B, PCR Not Detected (NotDetected); Cryptosporidium Not Detected (NotDetected); Cyclospora Cayetanesis Not Detected (NotDetected); Entamoeba histolytica Not Detected (NotDetected); Enteroaggregative E coli Not Detected (NotDetected); Enteropathogenic E coli Not Detected (NotDetected); Enterotoxigenic E coli Not Detected (NotDetected); Giardia lamblia Not Detected (NotDetected); Norovirus Not Detected (NotDetected); Plesimonas Shigalloides, PCR Not Detected (NotDetected); Rotavirus A Not Detected (NotDetected); Salmonella, PCR Not Detected (NotDetected); Sapovirus Not Detected (NotDetected); Shiga-like toxin E coli Not Detected (NotDetected); Shigella Enterovasive E coli Not Detected (NotDetected); Vibrio Cholerae Not Detected (NotDetected); Vibrio, PCR Not Detected (NotDetected); Yersinia Entercolitica, PCR Not Detected (NotDetected)
== END ==
PROVIDERS: Visit Provider Nurse Practitioner Family
DX: R19.7 Diarrhea, unspecified (principal)
CPT/HCPCS: 87506

== ENCOUNTER → 2019-10-21 15:30 | Outpatient (CLI) | payer MEDICARE, OTHER, SELFPAY | PROVIDERS: Visit Provider Nurse Practitioner Family | DX: R19.7 Diarrhea, unspecified (principal) | CPT/HCPCS: 87045; 87205; 87493 ==

== ENCOUNTER 2019-10-28 12:45 | Outpatient (CLI) | payer MEDICARE, OTHER, SELFPAY ==
[2019-10-28 13:00] VITALS: BP 119/68; PULSE 66; RESP 18; TEMP 36.2
== END 2019-10-28 13:00 | disposition home or self-care (01) ==
LOC: INF 12:51
PROVIDERS: Visit Provider Nurse Practitioner Family
DX: M81.0 Age-related osteoporosis without current pathological fracture (principal)
CPT/HCPCS: 96372; J0897

== ENCOUNTER → 2019-11-03 13:32 | Outpatient (CLI) | payer MEDICARE, OTHER, SELFPAY ==
[2019-11-03 14:04] LABS: Basophils % 0.5 % (0.1-2.0); Eosinophils % 0.5 % (0.1-12.0); Hematocrit 40.6 % (37.0-47.0); Hemoglobin 12.3 g/dL (12.2-16.2); Lymphocytes # 2.2 K/mm3 (0.7-4.5); Lymphocytes % 35.4 % (10-50); Mean Corpuscular HGB Conc 30.3 g/dL (31.8-35.4); Mean Corpuscular Hemoglobin 23.1 pg (27.0-31.2); Mean Corpuscular Volume 76.3 fl (81-99); Mean Platelet Volume 8.8 fl (7.4-10.4); Monocytes # 0.3 K/mm3 (0.1-1.0); Monocytes % 4.8 % (1.7-9.3); Neutrophils # 3.7 K/mm3 (1.8-7.8); Neutrophils % 58.7 % (37.0-80.0); Platelet Count 219 K/mm3 (142-424); Red Blood Count 5.32 M/mm3 (4.20-5.40); White Blood Count 6.3 K/mm3 (4.8-10.8)
[2019-11-07 07:31] LABS: Immunoglobulin E, Total 32 IU/mL (6-495)
== END ==
PROVIDERS: Visit Provider Allergy & Immunology
DX: T78.40XA Allergy, unspecified, initial encounter (principal); Z79.899 Other long term (current) drug therapy; E55.9 Vitamin D deficiency, unspecified
CPT/HCPCS: 36415; 82306; 82785; 85025

== ENCOUNTER → 2019-12-17 16:49 | Outpatient (CLI) | payer MEDICARE, OTHER, SELFPAY ==
--- NOTE | 2019-12-17 | XR_ITS ---
PROCEDURE: XR SHOULDER LT MIN 2V CLINICAL INDICATION: PAIN IN LT SHOULDER COMPARISON: No exams were available for comparison FINDINGS: No fracture or dislocation. No lytic or blastic change. There is normal mineralization. There are minimal osteoarthritic changes of the AC joint with mild subacromial stenosis. Faint calcific density is present along the lateral proximal shaft of the humerus. This is of unknown clinical significance only visualized on the external rotation view. Other findings:None. IMPRESSION: No acute finding. Please see above for detail Dictated by: Augie Syed MD 12/17/2019 17:40 Augie Syed MD in [place] 12/17/2019 17:40
--- NOTE | 2019-12-17 | XR_ITS ---
PROCEDURE: XR SHOULDER RT MIN 2V CLINICAL INDICATION: PAIN IN RT SHOULDER COMPARISON: CR SHOU3R [id number] VIEWS from 06/13/2016 FINDINGS: No fracture or dislocation. No lytic or blastic change. There is normal mineralization. Mild subacromial stenosis on the right. No significant arthritic change. Other findings:None. IMPRESSION: Subacromial stenosis otherwise negative Dictated by: Augie Syed MD 12/17/2019 17:55 Augie Syed MD in [place] 12/17/2019 17:55
--- NOTE | 2019-12-17 16:56 | XR_ITS ---
PROCEDURE: XR CHEST 2V CLINICAL HISTORY: COPD COMPARISON: CR XR CHEST PORTABLE from 12/26/[address] CHEST W CON from 03/26/2019 DX XR CHEST 2V from 04/23/2019 CR XR CHEST CHP 1V from 08/10/2019 FINDINGS: The cardiomediastinal silhouette and pulmonary vascularity are within normal limits. There is a loop recorder device present On the lateral view there are increased markings overlying the lower aspect of the heart suggesting areas of atelectasis or infiltrate which may be in the lingula and left lower lobe not well demonstrated on the frontal view. No acute bony findings. IMPRESSION: Loop recorder device in place. Patchy infiltrate or atelectatic change in the lingula and left lower lobe Dictated by: Augie Syed MD 12/17/2019 17:58 Augie Syed MD in [place] 12/17/2019 17:58
== END ==
PROVIDERS: PCP Nurse Practitioner Family; Visit Provider Nurse Practitioner Family
DX: J44.0 Chronic obstructive pulmonary disease with (acute) lower respiratory infection (principal); M25.512 Pain in left shoulder; M25.511 Pain in right shoulder
CPT/HCPCS: 71046; 73030

== ENCOUNTER → 2019-12-29 08:21 | Outpatient (CLI) | payer MEDICARE, OTHER, SELFPAY ==
--- NOTE | 2019-12-29 08:33 | XR_ITS ---
PROCEDURE: XR SHOULDER LT MIN 2V CLINICAL INDICATION: left shoulder pain COMPARISON: CR XR SHOULDER RT MIN 2V from 12/17/2019 FINDINGS: With displaced superiorly approximately 1/2 cortical with relation to the acromion process of the scapula. The humeral head and glenoid appear normal. There is no subacromial stenosis. There are no soft tissue calcifications. IMPRESSION: Possible mild chronic subluxation AC joint otherwise grossly in normal left shoulder Dictated by: Dr. Edwin Salas MD 12/29/2019 09:00 Dr. Edwin Salas MD in [place] 12/29/2019 09:00
--- NOTE | 2019-12-29 08:33 | XR_ITS ---
PROCEDURE: XR SHOULDER RT MIN 2V CLINICAL INDICATION: right shoulder pain COMPARISON: CR XR SHOULDER LT MIN 2V from 12/29/2019 FINDINGS: The clavicle and AC joint appear normal. The humeral head and glenoid appear normal. There are no soft tissue calcifications. IMPRESSION: No acute findings. Dictated by: Dr. Edwin Salas MD 12/29/2019 09:02 Dr. Edwin Salas MD in [place] 12/29/2019 09:02
== END ==
PROVIDERS: PCP Nurse Practitioner Family; Visit Provider Orthopaedic Surgery
DX: M25.512 Pain in left shoulder (principal); M25.511 Pain in right shoulder
CPT/HCPCS: 73030

== ENCOUNTER 2020-01-08 08:51 | Outpatient (CLI) | payer MEDICARE, OTHER, SELFPAY ==
--- NOTE | 2020-01-08 08:51 | XR_ITS ---
PROCEDURE: XR CHEST 2V CLINICAL HISTORY: needed before MRI; patient has loop recorder COMPARISON: CT CT CHEST W CON from 03/26/2019 DX XR CHEST 2V from 04/23/2019 CR XR CHEST CHP 1V from 08/10/2019 CR XR CHEST 2V from 12/17/2019 FINDINGS: There is mild generalized cardiomegaly, the pulmonary vascularity is normal and there is no pleural fluid.. There is a loop recorder device projecting over the cardiac silhouette. The lungs are clear without infiltrates, suspicious nodules.. There is a moderate-sized calcified subcarinal node No acute bony abnormalities. IMPRESSION: Mild cardiomegaly, no acute chest pathology noted Dictated by: Dr. Edwin Salas MD 01/08/2020 09:22 Dr. Edwin Salas MD in [facility] 01/08/2020 09:22
--- NOTE | 2020-01-08 09:21 | MR_ITS ---
PROCEDURE: MR SHOULDER LT WO CON CLINICAL INDICATION: left shoulder pain/ evaluate for rotator cuff tear COMPARISON: CR XR SHOULDER LT MIN 2V from 12/29/2019 TECHNIQUE: Routine multiplanar multi echo sequences are performed without gadolinium enhancement. FINDINGS: There is subacromial stenosis with a type 2 downsloping a chromium anteriorly with a subacromial space measuring 4 mm. There are mild hypertrophic changes of the acromioclavicular joint. There is some slight increased T2 signal of the supraspinatus tendon suggesting mild tendinopathy/tendinosis. There is a small focal area of increased T2 signal involving the distal aspect of the infraspinatus tendon suggesting an incomplete tear. The supraspinatus tendon and teres minor tendons are intact. No labral tear apparent. There is a small amount of fluid in the subacromial region at the AC joint.. IMPRESSION: 1. Suspect partial tear of the infraspinatus tendon. 2. 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 Dictated by: Augie Syed MD 01/10/2020 08:17 Augie Syed MD in [place] 01/10/2020 08:17
--- NOTE | 2020-01-08 09:21 | MR_ITS ---
PROCEDURE: MR SHOULDER RT WO CON CLINICAL INDICATION: evaluate for rotator cuff tear Right sided shoulder pain COMPARISON: CR XR SHOULDER RT MIN 2V from 12/29/2019 MR MR SHOULDER LT WO CON from 01/08/2020 TECHNIQUE: Routine multiplanar multi echo sequences are performed without gadolinium enhancement. FINDINGS: There is a moderate degree of motion artifact which does decrease the fine detail. There is a low lying a chromium. There is thickening of the supraspinatus and infraspinatus tendons with increased T2 signal. There is a small focal area of increased T2 signal involving the distal aspect of the supraspinatus tendon consistent with partial tear. There is also some increased T2 signal in the subscapularis tendon distally suggesting tendinopathy/tendinosis. The bicipital tendon is in place. There is a small amount fluid within the bicipital tendon sheath. No obvious labral tear. There is slight increased T2 signal of the humeral head at the greater tuberosity suggesting some underlying edematous change IMPRESSION: Subacromial stenosis with tendinopathy/tendinosis of the supraspinatus, infraspinatus, and subscapularis tendons with suspected partial tear of the supraspinatus tendon distally Fluid in the bicipital tendon sheath suggesting tenosynovitis. Dictated by: Augie Syed MD 01/10/2020 08:25 Augie Syed MD in [place] 01/10/2020 08:25
[2020-01-08 11:35] VITALS: BP 120/71; PULSE 76; RESP 18; TEMP 36.5; O2SAT 96
== END 2020-01-08 11:35 | disposition home or self-care (01) ==
LOC: RAD 08:51 → INF 09:09
PROVIDERS: PCP Nurse Practitioner Family; Visit Provider Orthopaedic Surgery
DX: Z98.890 Other specified postprocedural states (principal); M25.511 Pain in right shoulder; M25.512 Pain in left shoulder; J45.50 Severe persistent asthma, uncomplicated
CPT/HCPCS: 71046; 73221; 96372; J2182

== ENCOUNTER → 2020-01-13 12:16 | Outpatient (CLI) | payer MEDICARE, OTHER, SELFPAY ==
[2020-01-14 17:46] LABS: Covid-19 Nasal PCR Sendout Lex Not Detected
== END ==
PROVIDERS: PCP Nurse Practitioner Family; Visit Provider Family Medicine
DX: Z03.818 Encounter for observation for suspected exposure to other biological agents ruled out (principal)
CPT/HCPCS: U0004

== ENCOUNTER 2020-02-01 10:30 | Outpatient (CLI) | payer MEDICARE, OTHER, SELFPAY ==
[2020-02-01 10:35] VITALS: BP 129/79; PULSE 79; RESP 20; TEMP 36.9; O2SAT 95
== END 2020-02-01 11:00 | disposition home or self-care (01) ==
LOC: INF 10:30
PROVIDERS: Visit Provider Allergy & Immunology
DX: J45.50 Severe persistent asthma, uncomplicated (principal)
CPT/HCPCS: 96372; J2182

== ENCOUNTER 2020-03-09 11:40 | Outpatient (CLI) | payer MEDICARE, OTHER, SELFPAY ==
[2020-03-09 12:10] VITALS: BP 137/74; PULSE 68; RESP 18; TEMP 36.3; O2SAT 100
== END 2020-03-09 12:25 | disposition home or self-care (01) ==
LOC: INF 11:45
PROVIDERS: Visit Provider Allergy & Immunology
DX: J45.50 Severe persistent asthma, uncomplicated (principal)
CPT/HCPCS: 96372; J2182

== ENCOUNTER 2020-03-11 19:46 | Emergency (ER) | payer MEDICARE, OTHER, SELFPAY ==
[2020-03-11 19:47] VITALS: BP 126/82; PULSE 93; RESP 16; TEMP 36.8; O2SAT 95; BMI 27.7
--- NOTE | 2020-03-11 20:18 | HMH.EDDENT ---
ED Disposition Clinical Impression: Dental caries Disposition: Home, Self-Care Condition on Discharge: Good Additional Instructions: Return the emergency department for swelling or expanding area of infection to tooth difficulty breathing or chills or any other concerns within the weekend otherwise follow-up with your dentist on Saturday Referrals: Sandra Orozco APRN [Primary Care Provider] - - Critical Care Critical Care Time: No Attestation: On 03/11/20, the high probability of a clinically significant, sudden or life threatening deterioration of the following system(s) required my full and direct attention, intervention and personal management. The time I documented below is in addition to time spent performing reported procedures but includes the following listed in this critical care notation. Medical Decision Making - Medical Records Medical records reviewed: Yes: I reviewed the patient's medical records. - Rashaad Inquiry Pt receiving controlled substance: No Vital Signs: 03/11/20 19:47 Temperature 98.3 F Temperature Source Oral Pulse Rate [Left Radial] 93 H Respiratory Rate 16 Blood Pressure [Right Arm] 126/82 Blood Pressure Mean [Right Arm] 96 Blood Pressure Source [Right Arm] Automatic Cuff Blood Pressure Position [Right Arm] Sitting 02 Sat by Pulse Oximetry 95 Oxygen Delivery Method Room Air Medical Decision Narrative: 59-year-old female presented with dental pain. She did have mild purulent area around the extracted tooth however no fluctuance or concern for abscess. She is on appropriate dose of clindamycin and she is only 2 days of her 7-day treatment. I recommended that she follow-up for dentistry on Saturday however no indication to drain the tooth at this time and I would recommend continuing the clindamycin. Given strict return precautions for the weekend for facial swelling or any other concerns. Dental HPI - General Chief complaint: Dental/Oral Stated complaint: dental pain Time Seen by Provider: 03/11/20 20:20 Mode of Arrival: Ambulatory Limitations: No Limitations Description of Symptoms (Recalled from ER Triage Doc. by RN): pt complains of dental pain on the right side of her upper jaw. pt stated she had a tooth extracted yesterday and hasnt been able to get ahold of her dentist. - History of Present Illness HPI Narrative: 59-year-old female with history of COPD presents with dental pain. She says that she had an abscessed tooth this week and had a tooth extraction on Saturday. She has had 2 days of clindamycin 300 3 times daily however did have mild purulent drainage from just behind the tube site. No redness or swelling to the face. No difficulty swallowing or airway difficulty. No fever chills nausea vomiting headaches. MD Complaint: tooth pain Location: Tooth # (1) Duration: intermittent Severity: mild - Related Data Home Medications Medication Instructions Recorded Confirmed buspirone 15 mg tablet 15 mg PO TID 07/30/17 03/09/20 dexlansoprazole 60 mg 60 mg PO DAILY 07/30/17 03/09/20 capsule,biphase delayed release dicyclomine 20 mg tablet 20 mg PO Q6HP PRN 07/30/17 03/09/20 fluconazole 200 mg tablet 200 mg PO DIRECTED PRN 07/30/17 03/09/20 fluticasone propionate 50 1 spray INTRANASAL DAILY 07/30/17 03/09/20 mcg/actuation nasal spray,suspension levocetirizine 5 mg tablet 5 mg PO QHS 07/30/17 03/09/20 tiotropium bromide 2.5 2 inh INHALATION QAM 07/30/17 03/09/20 mcg/actuation mist for inhalation venlafaxine 150 mg tablet,extended 300 mg PO DAILY 07/30/17 03/09/20 release 24 hr pramipexole 1 mg tablet 1.5 mg PO TID tab 02/17/18 03/09/20 Spironolactone [Spironolactone 25 mg PO DAILY 10/15/18 03/09/20 25mg Tablet] Simvastatin 40 mg PO DAILY 12/26/18 03/09/20 Fluticasone/Salmeterol [Advair 1 inh IH BID 04/23/19 03/09/20 250/50mcg Diskus] Montelukast Sodium [Singulair 10mg 10 mg PO PM 04/23/19 03/09/20 tablet] Primidone 50 mg PO TIDP
[2020-03-11 20:29] VITALS: BP 129/86; PULSE 87; RESP 16; TEMP 36.8; O2SAT 96
== END 2020-03-11 20:33 | disposition home or self-care (01) ==
PROVIDERS: Emergency Provider Family Medicine; PCP Nurse Practitioner Family
DX: K02.9 Dental caries, unspecified (principal); K21.9 Gastro-esophageal reflux disease without esophagitis; F41.8 Other specified anxiety disorders; E78.5 Hyperlipidemia, unspecified; I10 Essential (primary) hypertension; M79.7 Fibromyalgia; F17.210 Nicotine dependence, cigarettes, uncomplicated; Z79.899 Other long term (current) drug therapy
CPT/HCPCS: 99281

== ENCOUNTER → 2020-04-04 15:10 | Outpatient (CLI) | payer MEDICARE, OTHER, SELFPAY ==
--- NOTE | 2020-04-04 15:19 | XR_ITS ---
PROCEDURE: XR ANKLE RT MIN 3V CLINICAL INDICATION: RT ANKLE PAIN COMPARISON: No exams were available for comparison FINDINGS: No fracture or dislocation. No lytic or blastic change. There is normal mineralization. The joint spaces are well-preserved. No significant degenerative/arthritic changes. No erosive changes evident. Other findings:None. IMPRESSION: No acute findings. Dictated by: Augie Syed MD 04/04/2020 16:20 Augie Syed MD in [place] 04/04/2020 16:20
== END ==
PROVIDERS: PCP Nurse Practitioner Family; Visit Provider Nurse Practitioner Family
DX: M25.571 Pain in right ankle and joints of right foot (principal)
CPT/HCPCS: 73610

== ENCOUNTER 2020-05-04 11:45 | Outpatient (CLI) | payer MEDICARE, OTHER, SELFPAY ==
[2020-05-04 11:57] VITALS: BP 121/69; PULSE 73; RESP 18; TEMP 36.5; O2SAT 96
== END 2020-05-04 11:57 | disposition home or self-care (01) ==
LOC: INF 11:45
PROVIDERS: Visit Provider Nurse Practitioner Family
DX: M81.0 Age-related osteoporosis without current pathological fracture (principal)
CPT/HCPCS: 96372; J0897

== ENCOUNTER → 2020-05-23 14:51 | Outpatient (CLI) | payer MEDICARE, OTHER, SELFPAY ==
[2020-05-25 16:41] LABS: C difficile Toxins AB, EIA Positive (Negative)
== END ==
PROVIDERS: Visit Provider Nurse Practitioner Family
DX: R19.7 Diarrhea, unspecified (principal); A04.72 Enterocolitis due to Clostridium difficile, not specified as recurrent
CPT/HCPCS: 87045; 87324

== ENCOUNTER → 2020-06-20 10:18 | Outpatient (CLI) | payer MEDICARE, OTHER, SELFPAY ==
[2020-06-20 11:02] LABS: Basophils # 0.1 K/mm3 (0-0.2); Basophils % 0.5 % (0.1-2.0); Eosinophils % 0.2 % (0.1-12.0); Hematocrit 40.5 % (37.0-47.0); Hemoglobin 11.8 g/dL (12.2-16.2); Lymphocytes # 1.9 K/mm3 (0.7-4.5); Lymphocytes % 18.4 % (10-50); Mean Corpuscular HGB Conc 29.2 g/dL (31.8-35.4); Mean Corpuscular Hemoglobin 21.6 pg (27.0-31.2); Mean Platelet Volume 8.1 fl (7.4-10.4); Monocytes # 0.6 K/mm3 (0.1-1.0); Monocytes % 5.8 % (1.7-9.3); Neutrophils # 7.8 K/mm3 (1.8-7.8); Neutrophils % 75.1 % (37.0-80.0); Platelet Count 289 K/mm3 (142-424); Red Blood Count 5.47 M/mm3 (4.20-5.40); Red Cell Distribution Width 16.7 % (11.5-17.5); White Blood Count 10.4 K/mm3 (4.8-10.8)
[2020-06-20 11:31] LABS: Alanine Aminotransferase 14 U/L (12-78); Albumin Level 4.3 g/dl (3.5-5.0); Albumin/Globulin Ratio 1.7 (1.1-1.8); Alkaline Phosphatase 114 U/L (38-126); Anion Gap 10.9 mEq/L (5-15); Aspartate Amino Transferase 26 U/L (14-36); Bilirubin,Total 0.4 mg/dl (0.2-1.3); Blood Urea Nitrogen 24 mg/dl (7-17); Calcium 9.1 mg/dl (8.4-10.2); Carbon Dioxide 30 mmol/L (22.0-30.0); Chloride 104 mmol/L (98-107); Estimated Glomerular Filt Rate 73 ml/min (>60); GFR (African American) 88 ML/MIN (>60); Globulin 2.6 g/dL (1.3-3.2); Glucose 97 mg/dl (74-100); Potassium 3.9 mmoL/L (3.5-5.1); Sodium 141 mmol/L (136-145); Total Protein,Serum 6.9 g/dl (6.3-8.2)
[2020-06-20 12:05] LABS: Thyroid Stimulating Hormone 2.05 uIU/mL (0.465-4.68)
[2020-06-20 12:23] LABS: Vitamin B12 342 pg/mL (239-931)
== END ==
PROVIDERS: Visit Provider Nurse Practitioner Family
DX: J44.9 Chronic obstructive pulmonary disease, unspecified (principal); R53.1 Weakness
CPT/HCPCS: 36415; 80053; 82607; 84443; 85025

== ENCOUNTER 2020-07-12 10:30 | Outpatient (RCR) | payer MEDICARE, OTHER, SELFPAY | END 2020-07-12 10:35 | disposition home or self-care (01) | LOC: PT 10:30 | PROVIDERS: Visit Provider Nurse Practitioner Family | DX: L03.116 Cellulitis of left lower limb (principal); L08.9 Local infection of the skin and subcutaneous tissue, unspecified; T14.8XXA Other injury of unspecified body region, initial encounter | CPT/HCPCS: 97162; 97597 ==

== ENCOUNTER → 2020-07-14 09:09 | Outpatient (CLI) | payer MEDICARE, OTHER, SELFPAY ==
--- NOTE | 2020-07-14 09:12 | US_ITS ---
PROCEDURE: US SOFT TISSUE HEAD AND NECK CLINICAL INDICATION: CERVICAL LYMPHADENOPATHY COMPARISON: No exams were available for comparison FINDINGS: No cervical nodule is identified. No abnormal fluid collection. The submandibular and parotid glands have unremarkable appearance. IMPRESSION: Unremarkable ultrasound of the neck. If there is indeed a palpable nodule then CT without and with contrast of the neck may provide more thorough evaluation. Dictated by: Augie Syed MD 07/14/2020 16:53 Augie Syed MD in [place] 07/14/2020 16:53
== END ==
PROVIDERS: PCP Nurse Practitioner Family; Visit Provider Nurse Practitioner Family
DX: R59.0 Localized enlarged lymph nodes (principal)
CPT/HCPCS: 76536

== ENCOUNTER → 2020-07-18 12:17 | Outpatient (CLI) | payer MEDICARE, OTHER, SELFPAY ==
--- NOTE | 2020-07-18 12:25 | XR_ITS ---
PROCEDURE: XR CHEST 2V CLINICAL HISTORY: SOB,COPD COMPARISON: CT CT CHEST W CON from 03/26/2019 CR XR CHEST CHP 1V from 08/10/2019 CR XR CHEST 2V from 12/17/2019 CR XR CHEST 2V from 01/08/2020 FINDINGS: Loop recorder device is noted projecting over the heart. The heart size is normal. Central pulmonary vasculature is within normal limits. Background of minor chronic interstitial changes. Subsegmental atelectasis versus infiltrate in the left lower zone. No lobar consolidation or pleural effusions. Degenerative changes of the visualized thoracic spine. IMPRESSION: Subsegmental atelectasis versus infiltrate in the left lower zone. Background of chronic interstitial changes. Dictated by: Naya Caputo 07/18/2020 15:27 Naya Caputo in [place] 07/18/2020 15:27
== END ==
PROVIDERS: PCP Nurse Practitioner Family; Visit Provider Nurse Practitioner Family
DX: R06.02 Shortness of breath (principal); J44.9 Chronic obstructive pulmonary disease, unspecified
CPT/HCPCS: 71046

== ENCOUNTER → 2020-07-26 15:56 | Outpatient (CLI) | payer MEDICARE, OTHER, SELFPAY ==
[2020-07-26 16:45] LABS: Blood Urea Nitrogen 17 mg/dl (7-17); Estimated Glomerular Filt Rate 85 ml/min (>60); GFR (African American) 103 ML/MIN (>60)
== END ==
PROVIDERS: Visit Provider Nurse Practitioner Family
DX: R22.1 Localized swelling, mass and lump, neck (principal)
CPT/HCPCS: 36415; 82565; 84520

== ENCOUNTER → 2020-07-28 10:33 | Outpatient (CLI) | payer MEDICARE, OTHER, SELFPAY ==
--- NOTE | 2020-07-28 10:37 | CT_ITS ---
PROCEDURE INFORMATION: Exam: CT Neck With Contrast Exam date and time: 07/28/2020 10:37 AM Age: 60 years old Clinical indication: Mass, lump, or swelling in neck; Additional info: Localized swelling, mass lump and neck, marked with bb TECHNIQUE: Imaging protocol: Computed tomography images of the neck with contrast. Radiation optimization: All CT scans at this facility use at least one of these dose optimization techniques: automated exposure control; mA and/or kV adjustment per patient size (includes targeted exams where dose is matched to clinical indication); or iterative reconstruction. Contrast material: ISOVUE; Contrast volume: 75 ml; Contrast route: IV; COMPARISON: NECKW CT SOFT TISSUE NECK W/CONTRAST 04/26/2016 9:04 AM FINDINGS: Nasopharynx: Unremarkable. Oropharynx: Unremarkable. No significant tonsillar enlargement. Hypopharynx: Unremarkable. Larynx: Unremarkable. Normal epiglottis. Retropharyngeal space: Unremarkable. Submandibular/Parotid glands: Normal. Glands are normal in size. Thyroid: Normal. No enlarged or calcified nodules. Lymph nodes: Unremarkable. No lymphadenopathy. Trachea: Visualized trachea is unremarkable. Lungs: Unremarkable as visualized. Bones/joints: Unremarkable. No acute fracture. Soft tissues: Unremarkable. No significant soft tissue swelling. IMPRESSION: No acute findings.
--- NOTE | 2020-07-28 10:52 | XR_ITS ---
PROCEDURE: XR CHEST 2V CLINICAL HISTORY: COPD,SOB COMPARISON: CT CT CHEST W CON from 03/26/2019 CR XR CHEST 2V from 12/17/2019 CR XR CHEST 2V from 01/08/2020 CR XR CHEST 2V from 07/18/2020 FINDINGS: Borderline cardiomegaly without failure. There is a loop recorder device present. Lungs are clear of acute infiltrate. Mild thoracic kyphosis not significantly changed. Minimal thoracic scoliosis convex left. Contrast noted within the renal collecting system from recent CT scan. IMPRESSION: No change with no acute finding Dictated by: Augie Syed MD 07/28/2020 11:10 Augie Syed MD in [place] 07/28/2020 11:10
== END ==
PROVIDERS: PCP Nurse Practitioner Family; Visit Provider Nurse Practitioner Family
DX: R22.1 Localized swelling, mass and lump, neck (principal); J44.9 Chronic obstructive pulmonary disease, unspecified; R06.02 Shortness of breath
CPT/HCPCS: 70491; 71046; Q9967

== ENCOUNTER 2020-11-02 12:08 | Outpatient (CLI) | payer MEDICARE, OTHER, SELFPAY ==
[2020-11-02 12:28] VITALS: BP 118/66; PULSE 66; RESP 18; O2SAT 96
== END 2020-11-02 12:45 | disposition home or self-care (01) ==
LOC: INF 12:09
PROVIDERS: PCP Nurse Practitioner Family; Visit Provider Nurse Practitioner Family
DX: M81.0 Age-related osteoporosis without current pathological fracture (principal)
CPT/HCPCS: 96372; J0897

== ENCOUNTER → 2021-01-31 11:17 | Outpatient (CLI) | payer MEDICARE, OTHER, SELFPAY ==
--- NOTE | 2021-01-31 11:23 | XR_ITS ---
PROCEDURE: XR CHEST 2V CLINICAL HISTORY: COPD, PNEUMONIA OF RLL DUE TO INFECTIOUS ORGANISM COMPARISON: CT CT CHEST W CON from 03/26/2019 CR XR CHEST 2V from 01/08/2020 CR XR CHEST 2V from 07/18/2020 CR XR CHEST 2V from 07/28/2020 FINDINGS: The cardiomediastinal silhouette and pulmonary vascularity are within normal limits. Loop recorder device is in place. Lungs are clear bilaterally. No acute bony abnormalities. IMPRESSION: No change no acute finding Dictated by: Augie Syed MD 01/31/2021 14:08 Augie Syed MD in [place] 01/31/2021 14:08
== END ==
PROVIDERS: PCP Nurse Practitioner Family; Visit Provider Nurse Practitioner Family
DX: J18.9 Pneumonia, unspecified organism (principal); J44.9 Chronic obstructive pulmonary disease, unspecified
CPT/HCPCS: 71046

== ENCOUNTER → 2021-02-20 12:26 | Outpatient (CLI) | payer MEDICARE, OTHER, SELFPAY | PROVIDERS: Visit Provider Pain Medicine Interventional Pain Medicine | DX: Z01.812 Encounter for preprocedural laboratory examination (principal); Z11.52 Encounter for screening for COVID-19 | CPT/HCPCS: C9803; U0003; U0005 ==

== ENCOUNTER 2021-02-22 10:20 | Emergency (ER) | payer MEDICARE, OTHER, SELFPAY ==
[2021-02-22 12:15] VITALS: BP 147/81; PULSE 86; RESP 19; TEMP 36.8; O2SAT 98; BMI 27.3
--- NOTE | 2021-02-22 12:46 | HMH.EDUTC ---
[facility] [place] Clinical Impression: Shingles Qualifiers: Herpes zoster complications: without complications Qualified Code(s): B02.9 - Zoster without complications Disposition: Home, Self-Care Condition on Discharge: Good Instructions: Shingles, DI for Shingles, Acyclovir Additional Instructions: Self-care: Keep your rash clean and dry. Cover your rash with a bandage or clothing. Do not use bandages that stick to your skin. The sticky part may irritate your skin and make your rash last longer Wash your hands often. Wash your hands several times each day. Wash after you use the bathroom, change a child's diaper, and before you prepare or eat food. Use soap and water every time. Rub your soapy hands together, lacing your fingers. Wash the front and back of your hands, and in between your fingers. Use the fingers of one hand to scrub under the fingernails of the other hand. Wash for at least 20 seconds. Rinse with warm, running water for several seconds. Then dry your hands with a clean towel or paper towel. Use hand lean coach that contains alcohol if soap and water are not available. Do not touch your eyes, nose, or mouth without washing your hands first Cover a sneeze or cough. Use a tissue that covers your mouth and nose. Throw the tissue away in a trash can right away. Use the bend of your arm if a tissue is not available. Wash your hands well with soap and water or use a hand lean coach. Stay away from others while you are sick. Avoid crowds as much as possible Follow up with your doctor as directed: Return if needed Follow up with Family Doctor if no improvement or any worsening of symptoms Prescriptions: Acyclovir 800 mg PO 5XDAY 7 Days #35 tab Transmission Status: Pending to [facility] Referrals: Sandra Orozco APRN [Primary Care Provider] - As needed Time of Disposition: 12:58 Medical Decision Making - Rashaad Inquiry Pt receiving controlled substance: No Rashaad was queried for this patient: No Vital Signs: 02/22/21 12:15 Temperature 98.3 F Temperature Source Oral Pulse Rate [Right Brachial] 86 Respiratory Rate 19 Blood Pressure [Right Arm] 147/81 H Blood Pressure Mean [Right Arm] 103 Blood Pressure Source [Right Arm] Automatic Cuff Blood Pressure Position [Right Arm] Sitting 02 Sat by Pulse Oximetry 98 Oxygen Delivery Method Room Air [facility] [place]PI - General Stated complaint: possible shingles Time Seen by Provider: 02/22/21 12:47 Mode of Arrival: Ambulatory Source of Information: Patient Limitations: No Limitations Description of Symptoms (Recalled from Triage Doc. by RN): PATIENT C/O RASH TO BOTTOM SINCE LAST NIGHT HEENT Symptoms (Recalled from RN notes): No Resp Symptoms (Recalled from RN notes): No Skin Symptoms (Recalled from RN notes): Yes MS Symptoms (Recalled from RN notes): No Functional Status (Recalled from RN notes): WNL - History of Present Illness Provider Complaint: Patient states that she had a rash on her right buttock area that started last night that itched and would burn when she would scratch it State that she seen someone in [place] today to get epidural in her back due to pinched nerve in her back and they told her she had shingles and needed to see PCP [facility] for it States that she called and her PCP was out today and they told her to come in here so she did - Related Data Home Medications Medication Instructions Recorded Confirmed dexlansoprazole 60 mg 60 mg PO DAILY 07/30/17 11/02/20 capsule,biphase delayed release dicyclomine 20 mg tablet 20 mg PO Q6HP PRN 07/30/17 11/02/20 fluconazole 200 mg tablet 200 mg PO DIRECTED PRN 07/30/17 11/02/20 levocetirizine 5 mg tablet 5 mg PO QHS 07/30/17 11/02/20 venlafaxine 150 mg tablet,extended 300 mg PO DAILY 07/30/17 11/02/20 release 24 hr pramipexole 1 mg tablet 1.5 mg PO TID tab 02/17/18 11/02/20 Spironolactone [Spironolactone 25 mg PO DAILY 10/15/18 11/02/20 25mg Tablet] Simvastatin 40 mg PO DAILY
[2021-02-22 13:04] VITALS: BP 147/81; PULSE 86; RESP 19; TEMP 36.8; O2SAT 98
== END 2021-02-22 13:05 | disposition home or self-care (01) ==
PROVIDERS: Emergency Provider Nurse Practitioner; PCP Nurse Practitioner Family
DX: B02.9 Zoster without complications (principal); I50.9 Heart failure, unspecified; J44.9 Chronic obstructive pulmonary disease, unspecified; F41.8 Other specified anxiety disorders; K21.9 Gastro-esophageal reflux disease without esophagitis; E78.5 Hyperlipidemia, unspecified; I10 Essential (primary) hypertension; M81.0 Age-related osteoporosis without current pathological fracture; M79.7 Fibromyalgia
CPT/HCPCS: 99202; G0463

== ENCOUNTER 2021-03-07 15:55 | Inpatient (IN) | payer MEDICARE, OTHER, SELFPAY ==
[2021-03-07] VITALS (12 sets, daily range): BP systolic 76–162; BP diastolic 49–91; PULSE 64–95; RESP 22–30; TEMP 36.9–37.9; O2SAT 2–97; BMI 32.2; BMI 31.6
--- NOTE | 2021-03-07 16:00 | XR_ITS ---
PROCEDURE INFORMATION: Exam: XR Right Ribs with PA Chest Exam date and time: 03/07/2021 4:00 PM Age: 60 years old Clinical indication: Pain; Other: Right side of ribs; Additional info: RT rib pain poss FX TECHNIQUE: Imaging protocol: XR Right ribs with PA chest. Views: 3 views COMPARISON: CR XR CHEST 2V 01/31/2021 11:32 AM FINDINGS: Tubes, catheters and devices: Biomedical device in the left chest. Lungs: Right lower lung consolidation. Minimal left lower lung atelectasis. Pleural spaces: Unremarkable. No pleural effusion. No pneumothorax. Heart/Mediastinum: Unremarkable. No cardiomegaly. Bones/joints: No acute findings. Organs: Cholecystectomy. IMPRESSION: Right lower lung consolidation consistent with pneumonia, minimal left lower lung atelectasis.
--- NOTE | 2021-03-07 16:00 | ECG_ITS ---
APPROVED REPORT Exam: Resting ECG HR:59 bpm ECG Measurements Heart Rate 59 AXES LA 200 P 67 QRSd 100 QRS 1 QT 428 T 38 QTc 423 Conclusion Sinus bradycardia Late r wave progression Abnormal ECG Electronically signed by : Adryan Cooper MD 03/08/2021 13:23:12
--- NOTE | 2021-03-07 16:01 | HMH.EDGENADL ---
ED Disposition Clinical Impression: CAP (community acquired pneumonia) Qualifiers: Laterality: unspecified laterality Qualified Code(s): J18.9 - Pneumonia, unspecified organism Disposition: Admitted as Observation Condition on Discharge: Good - Critical Care Critical Care Time: No Attestation: On , the high probability of a clinically significant, sudden or life threatening deterioration of the following system(s) required my full and direct attention, intervention and personal management. The time I documented below is in addition to time spent performing reported procedures but includes the following listed in this critical care notation. Medical Decision Making - Rashaad Inquiry Pt receiving controlled substance: No Vital Signs: 03/07/21 15:56 Temperature 99.5 F Temperature Source Oral Pulse Rate [Radial] 95 H Respiratory Rate 30 H Blood Pressure [Right Arm] 162/91 H Blood Pressure Mean [Right Arm] 114 Blood Pressure Position [Right Arm] Sitting 02 Sat by Pulse Oximetry 97 Oxygen Delivery Method Nasal Cannula Oxygen Flow Rate (LPM) 2 - Lab Data Lab Results 03/07/21 16:00: WBC 15.5 H, RBC 5.50 H, Hgb 15.9, Hct 51.9 H, MCV 94.5, MCH 28.9, MCHC 30.6 L, RDW 15.0, Plt Count 259, MPV 8.2, Neut % (Auto) 88.8 H, Lymph % (Auto) 7.2 L, Kimball % (Auto) 1.7, Eos % (Auto) 0.9, Baso % (Auto) 1.4, Neut # (Auto) 13.8 H, Lymph # (Auto) 1.1, Kimball # (Auto) 0.3, Eos # (Auto) 0.1, Baso # (Auto) 0.2, Total Counted 100, Neutrophils % (Manual) 89 H, Lymphocytes % (Manual) 10, Monocytes % (Manual) 1 L, Platelet Estimate Normal, Hypochromasia 2+, Stomatocytes 1+ 03/07/21 16:00: Sodium 137, Potassium 4.1, Chloride 97 L, Carbon Dioxide 31 H, Anion Gap 13.1, BUN 21 H, Creatinine 0.80, Estimated Creat Clear 69, Estimated GFR 73, Est GFR ( Amer) 88, Glucose 111 H, Calcium 9.4, Total Bilirubin 0.4, AST 36, ALT 17, Alkaline Phosphatase 125, Troponin I < 0.01, Total Protein 7.2, Albumin 4.4, Globulin 2.8, Albumin/Globulin Ratio 1.6 03/07/21 16:00: D-Dimer 0.50 03/07/21 16:44: Lactate 1.2 03/07/21 17:00: SARS-CoV-2 (PCR) Not detected, Influenza A Untype (PCR) Not detected, Influenza Type B (PCR) Not detected Result diagrams: 03/07/21 16:00 03/07/21 16:00 Orders (Tests/Meds): ED MEDICATIONS Generic Name Dose Route Start Last Admin Trade Name Frecheryl PRN Reason Stop Dose Admin Sodium Chloride 1,000 mls @ 125 mls/hr 03/07/21 16:45 03/07/21 17:01 Sod Chlor 0.9% 1000ml Bag IV 04/06/21 16:44 125 mls/hr .Q8H MARIO Administration Azithromycin 500 mg/ Sodium 250 mls @ 250 mls/hr 03/07/21 17:00 03/07/21 16:59 Chloride IV 03/21/21 16:59 250 mls/hr Q24H MARIO Administration Ceftriaxone Sodium 1 gm/ 50 mls @ 100 mls/hr 03/07/21 17:30 Sodium Chloride IV 03/21/21 17:29 Q24H MARIO Morphine Sulfate 4 mg 03/07/21 17:24 Morphine 4mg/Ml Syringe IV 04/06/21 17:23 Q4HP PRN Moderate Pain Discontinued Medications Generic Name Dose Route Start Last Admin Trade Name Addie PRN Reason Stop Dose Admin Methylprednisolone Sodium Succinate 125 mg 03/07/21 17:22 Methylprednisolone Sod Succ 125mg Vial IV 03/07/21 17:23 ONCE ONE Morphine Sulfate 4 mg 03/07/21 15:59 03/07/21 16:09 Morphine 4mg/Ml Syringe IV 03/07/21 16:00 4 mg ONCE ONE Administration Ondansetron HCl 8 mg 03/07/21 15:59 03/07/21 16:09 Ondansetron 4mg/2ml Vial IV 03/07/21 16:00 8 mg ONCE ONE Administration ORDERS Category Date Time Status Troponin I Q3H Lab 03/07/21 19:15 Ordered Troponin I Q3H Lab 03/07/21 22:15 Ordered Blood Culture Stat Micro 03/07/21 16:44 Received - ECG Data Tracing #1 ekg by me sinus 59, qrs narrow, no st elev General Adult HPI - General Stated complaint: RIB PAIN Time Seen by Provider: 03/07/21 16:01 Mode of Arrival: EMS Source of Information: Patient, EMS Limitations: No Limitations - History of Present Illness HPI narrative: says she has sudden ons
[2021-03-07 16:19] LABS: Basophils # 0.2 K/mm3 (0-0.2); Basophils % 1.4 % (0.1-2.0); Eosinophils # 0.1 K/mm3 (0.0-0.4); Eosinophils % 0.9 % (0.1-12.0); Hematocrit 51.9 % (37.0-47.0); Hemoglobin 15.9 g/dL (12.2-16.2); Lymphocytes # 1.1 K/mm3 (0.7-4.5); Lymphocytes % 7.2 % (10-50); Mean Corpuscular HGB Conc 30.6 g/dL (31.8-35.4); Mean Corpuscular Hemoglobin 28.9 pg (27.0-31.2); Mean Corpuscular Volume 94.5 fl (81-99); Mean Platelet Volume 8.2 fl (7.4-10.4); Monocytes # 0.3 K/mm3 (0.1-1.0); Monocytes % 1.7 % (1.7-9.3); Neutrophils # 13.8 K/mm3 (1.8-7.8); Neutrophils % 88.8 % (37.0-80.0); Platelet Count 259 K/mm3 (142-424); White Blood Count 15.5 K/mm3 (4.8-10.8)
[2021-03-07 16:25] LABS: MANUAL DIFFERENTIAL MANUAL DIFFERENTIAL (MANUAL DIFF)
[2021-03-07 17:03] LABS: Lymphocytes % 10 % (10-50); Monocytes % 1 % (2-9); Neutrophils % 89 % (42-76); Platelet Estimate Normal; Total Cells Counted 100
[2021-03-07 17:03] LABS: Lactic Acid 1.2 mmol/L (0.7-2.1)
[2021-03-07 17:04] LABS: Alanine Aminotransferase 17 U/L (12-78); Albumin Level 4.4 g/dl (3.5-5.0); Albumin/Globulin Ratio 1.6 (1.1-1.8); Alkaline Phosphatase 125 U/L (38-126); Anion Gap 13.1 mEq/L (5-15); Aspartate Amino Transferase 36 U/L (14-36); Bilirubin,Total 0.4 mg/dl (0.2-1.3); Blood Urea Nitrogen 21 mg/dl (7-17); Calcium 9.4 mg/dl (8.4-10.2); Carbon Dioxide 31 mmol/L (22.0-30.0); Chloride 97 mmol/L (98-107); Creatinine Clearance Estimated 69 mL/min (50-200); Estimated Glomerular Filt Rate 73 ml/min (>60); GFR (African American) 88 ML/MIN (>60); Globulin 2.8 g/dL (1.3-3.2); Glucose 111 mg/dl (74-100); Hypochromasia 2+; Potassium 4.1 mmoL/L (3.5-5.1); Sodium 137 mmol/L (136-145); Stomatocytes 1+; Total Protein,Serum 7.2 g/dl (6.3-8.2)
[2021-03-07 17:16] LABS: Coronavirus 19, PCR Not Detected (NotDetected); Influenza A, PCR Not Detected (NotDetected); Influenza B, PCR Not Detected (NotDetected)
[2021-03-07 17:16] LABS: Troponin I < 0.01 ng/ml (0.00-0.034)
--- NOTE | 2021-03-07 18:36 | PC.NURSE ---
report called to floor
[2021-03-07 20:48] LABS: Troponin I < 0.01 ng/ml (0.00-0.034)
[2021-03-07 22:35] LABS: Troponin I < 0.01 ng/ml (0.00-0.034)
[2021-03-08] VITALS (7 sets, daily range): BP systolic 84–98; BP diastolic 51–88; PULSE 70–91; RESP 18–22; TEMP 36.4–36.8; O2SAT 93–96; BMI 31.2; BMI 31.4
--- NOTE | 2021-03-08 07:19 | P.CONPHA_ITS ---
[facility] VTE Monitoring - Patient Demographics Admission date: 03/07/21 Report Date: 03/08/21 Time: 07:19 Allergies/Adverse Reactions: Patient Allergies celecoxib [From Celebrex] Allergy (Severe, Verified 03/07/21 16:03) RECTAL BLEEDING leflunomide Allergy (Severe, Verified 03/07/21 16:03) M-[id number]/THROAT,TINGLING OF HANDS, SORE THROAT nortriptyline Allergy (Severe, Verified 03/07/21 16:03) Weakness cefdinir Allergy (Intermediate, Verified 03/07/21 16:03) I-ITCHING ciprofloxacin Allergy (Intermediate, Verified 03/07/21 16:03) I-HIVES, ITCHING gabapentin Allergy (Intermediate, Verified 03/07/21 16:03) BODY SWELLING nitrofurantoin [From Macrobid] Allergy (Intermediate, Verified 03/07/21 16:03) I-HIVES, ITCHING naproxen [From NAPROSYN] Allergy (Unknown, Verified 03/07/21 16:03) THROAT SWELLS Penicillins Allergy (Verified 03/07/21 16:03) levofloxacin [From Levaquin] Adverse Reaction (Intermediate, Verified 03/07/21 16:03) HYPER , SHAKES dexamethasone Adverse Reaction (Mild, Verified 03/07/21 16:03) SHAKES Height: 1.52 m Weight: 72.15 kg Patient Problems: Current Active Problems (This Medical Record has been edited. Action required.) CAP (community acquired pneumonia) (Acute) - VTE Risk Labs: VTE Related Lab Results Hgb 15.9 g/dL (12.2-16.2) 03/07/21 16:00 Hct 51.9 % (37.0-47.0) H 03/07/21 16:00 Plt Count 259 K/mm3 (142-424) 03/07/21 16:00 BUN 21 mg/dl (7-17) H 03/07/21 16:00 Creatinine 0.80 mg/dl (0.52-1.04) 03/07/21 16:00 Estimated Creat Clear 69 mL/min (50-200) 03/07/21 16:00 VTE Score: 4 VTE Risk Level: Low Risk - Prophylaxis VTE Prophylaxis Ordered?: Yes Types of VTE Prophylaxis: TEDS Knee High, Pharmacological Location of Applied Device: Bilateral Lower Extremeties Pharmacologic Type: Other (XARELTO)
--- NOTE | 2021-03-08 07:19 | HMH.HP ---
*Admission Date: 03/07/21 *Chief complaint: Rib pain *History of present illness: 60-year-old female presented to the emergency department with right anterior and lateral pain in the rib cage after she had leaned over an object and rested her chest against an edge. Patient has a history of broken ribs and thought she had refractured her ribs. In the ER she underwent evaluation that included a right rib series and she was found to have a right lower lobe pneumonia. Patient claims she was treated for pneumonia about a month ago. There is evidence of x-ray from January which did not reveal any pneumonia at that time. Patient admits to hot and cold spells as well as increased cough that is loose. She has not identified any discolored sputum. Patient does have a history of COPD. She uses oxygen at night attached to her CPAP machine. In the ER white blood cell count was elevated. Patient was requiring supplemental oxygen. She was admitted for treatment of community-acquired pneumonia [facility] History I have reviewed the patient's past medical history: Yes Medical History: Reports:: Anxiety, Asthma, Congestive Heart Failure, Chronic Obstructive Pulmonary Disease (COPD), Depression, Gastroesophageal Reflux Disease(GERD), Home Oxygen, Hyperlipidemia, Hypertension, Lung Disease, Osteoporosis, Seizures, Transient Ischemic Attacks (TIA), Valvular Heart Disease Denies:: Cancer, Diabetes Mellitus Type 1, Diabetes Mellitus Type 2, MRSA *Have you ever received a pneumonia vaccine?: No *Have you received a flu vaccine this season?: No Other Medical History: Reports: Arthritis, Fibromyalgia, Osteoporosis, Sinus Problems. Denies: Blood Transfusion Reaction Laterality Cases: Bilateral: Myringotomy (Ear Tubes), Tonsillectomy, Other Other Surgeries: Yes: BSO, Cholecystectomy, Hysterectomy-Total, Hysterectomy-Partial, Sinus Surgery, Other Amputation: No Fractures: No - *Social History Smoking Status: Current every day smoker Tobacco Type: cigarettes # Packs/Day (cigarettes): 1 Alcohol Intake: never Alcohol Intake Frequency:: other Substance Use Type: denies use *Occupational Status:: disabled Housing: house Household Members: none *Travel in the last 8 weeks: None - Psychiatric History Pschychiatric History:: Reports:: Anxiety, Depression Family Hx:: Cancer Review of Systems - Constitutional Reports body ache(s), Reports chills, Reports lack of energy, Denies anorexia - Eyes Denies blurry vision - ENT Denies abnormal hearing - *Cardiovascular Denies chest pain, Denies chest pain at rest - *Respiratory Reports chest congestion, Reports cough, Reports shortness of breath, Reports shortness of breath with activity, Denies change in phlegm color - *Gastrointestinal Denies abdominal pain - *Genitourinary Denies difficulty urinating - *Musculoskeletal Reports back pain, Denies joint pain - Integumentary/Breasts Denies change in hair - *Neurologic Reports abnormal walking, Reports burning sensations - Psychiatric Denies lack of enjoyment, Denies anxiety Meds Home Medications Medication Instructions Recorded Confirmed Type dexlansoprazole 60 mg 60 mg PO DAILY 07/30/17 03/07/21 History capsule,biphase delayed release dicyclomine 20 mg tablet 20 mg PO Q6HP PRN 07/30/17 03/07/21 History fluconazole 200 mg tablet 200 mg PO DIRECTED PRN 07/30/17 03/07/21 History levocetirizine 5 mg tablet 5 mg PO QHS 07/30/17 03/07/21 History venlafaxine 150 mg tablet,extended 300 mg PO DAILY 07/30/17 03/07/21 History release 24 hr pramipexole 1 mg tablet 1.5 mg PO TID tab 02/17/18 03/07/21 History Spironolactone [Spironolactone 25 mg PO DAILY 10/15/18 03/07/21 History 25mg Tablet] Simvastatin 40 mg PO DAILY 12/26/18 03/07/21 History Montelukast Sodium [Singulair 10mg 10 mg PO PM 04/23/19 03/07/21 History tablet] Primidone 50 mg PO TIDP PRN 04/23/19 03/07/21 History rivaroxaban 15 mg tablet 15 mg PO DAILY 12/29/19 03/07/21 History albut
--- NOTE | 2021-03-08 07:37 | PC.NURSE ---
reported positive blood culture bottle to .
[2021-03-08 07:41] LABS: Chloride 104 mmol/L (98-107); Potassium 4.3 mmoL/L (3.5-5.1); Sodium 136 mmol/L (136-145)
[2021-03-08 07:42] LABS: Basophils # 0.4 K/mm3 (0-0.2); Basophils % 1.3 % (0.1-2.0); Eosinophils # 0.1 K/mm3 (0.0-0.4); Eosinophils % 0.2 % (0.1-12.0); Hematocrit 41.8 % (37.0-47.0); Lymphocytes # 0.7 K/mm3 (0.7-4.5); Lymphocytes % 2.7 % (10-50); Mean Corpuscular HGB Conc 30.9 g/dL (31.8-35.4); Mean Corpuscular Volume 93.9 fl (81-99); Mean Platelet Volume 8.6 fl (7.4-10.4); Monocytes # 0.7 K/mm3 (0.1-1.0); Monocytes % 2.4 % (1.7-9.3); Neutrophils # 25.5 K/mm3 (1.8-7.8); Neutrophils % 93.4 % (37.0-80.0); Platelet Count 225 K/mm3 (142-424); Red Blood Count 4.45 M/mm3 (4.20-5.40); White Blood Count 27.3 K/mm3 (4.8-10.8)
[2021-03-08 07:44] LABS: Anion Gap 7.3 mEq/L (5-15); Blood Urea Nitrogen 21 mg/dl (7-17); Carbon Dioxide 29 mmol/L (22.0-30.0); Creatinine Clearance Estimated 66 mL/min (50-200); Estimated Glomerular Filt Rate 73 ml/min (>60); GFR (African American) 88 ML/MIN (>60)
[2021-03-08 07:50] LABS: Calcium 7.4 mg/dl (8.4-10.2); Glucose 118 mg/dl (74-100)
[2021-03-08 08:26] LABS: MANUAL DIFFERENTIAL MANUAL DIFFERENTIAL (MANUAL DIFF)
[2021-03-08 10:40] LABS: Hypochromasia 2+; Lymphocytes % 4 % (10-50); Monocytes % 2 % (2-9); Neutrophils % 86 % (42-76); Platelet Estimate Normal; Total Cells Counted 100
--- NOTE | 2021-03-08 12:17 | HMH.PHAINT ---
MEDICATION RECONCILIATION COMPLETED ON PATIENT USING EXTERNAL FILL HISTORY FROM PHARMACY AND LIST FROM PCP OFFICE. -[facility]
[2021-03-09] VITALS (8 sets, daily range): BP systolic 94–110; BP diastolic 51–65; PULSE 56–90; RESP 17–21; TEMP 36.6–36.9; O2SAT 91–96; BMI 31.4
--- NOTE | 2021-03-09 05:16 | PC.NURSE ---
pt has been pleasant t/o shift, has rested intermittently, has remained on 3L NC with O2 sats 94-95%, humidification added to O2 at beginning of shift, has complained of back pain twice this shift and was treated per MAY, no complaints of SOA, has ambulated with standby assist in room and to and from bathroom
[2021-03-09 06:48] LABS: Basophils # 0.1 K/mm3 (0-0.2); Basophils % 0.6 % (0.1-2.0); Eosinophils # 0.1 K/mm3 (0.0-0.4); Eosinophils % 0.3 % (0.1-12.0); Hematocrit 39.3 % (37.0-47.0); Hemoglobin 12.1 g/dL (12.2-16.2); Lymphocytes # 1.9 K/mm3 (0.7-4.5); Mean Corpuscular HGB Conc 30.9 g/dL (31.8-35.4); Mean Corpuscular Hemoglobin 29.2 pg (27.0-31.2); Mean Corpuscular Volume 94.4 fl (81-99); Mean Platelet Volume 8.3 fl (7.4-10.4); Monocytes # 0.5 K/mm3 (0.1-1.0); Monocytes % 3.3 % (1.7-9.3); Neutrophils # 13.6 K/mm3 (1.8-7.8); Neutrophils % 83.9 % (37.0-80.0); Platelet Count 210 K/mm3 (142-424); Red Blood Count 4.16 M/mm3 (4.20-5.40); Red Cell Distribution Width 15.2 % (11.5-17.5); White Blood Count 16.2 K/mm3 (4.8-10.8)
[2021-03-09 06:57] LABS: Chloride 105 mmol/L (98-107); Sodium 139 mmol/L (136-145)
[2021-03-09 06:58] LABS: Potassium 3.5 mmoL/L (3.5-5.1)
[2021-03-09 07:00] LABS: Blood Urea Nitrogen 19 mg/dl (7-17); Creatinine Clearance Estimated 67 mL/min (50-200); Estimated Glomerular Filt Rate 73 ml/min (>60); GFR (African American) 88 ML/MIN (>60)
[2021-03-09 07:01] LABS: Anion Gap 6.5 mEq/L (5-15); Calcium 7.7 mg/dl (8.4-10.2); Carbon Dioxide 31 mmol/L (22.0-30.0); Glucose 102 mg/dl (74-100)
--- NOTE | 2021-03-09 07:01 | HMH.ACPN2 ---
Internal Medicine - PN: Subj *Date: 03/09/21 *Time: 07:01 Interval history: Patient is remained stable. Primary complaint is lumbar radiculopathy pain. Cough remains dry. Exam Vital signs and Labs for Last 24 Hours: Temp Pulse Resp BP Pulse Ox 98.4 F 77 19 99/52 L 95 03/09/21 04:00 03/09/21 04:00 03/09/21 04:00 03/09/21 04:00 03/09/21 04:00 Laboratory Results - last 24 hr 03/08/21 07:22: WBC 27.3 H* D, RBC 4.45, Hgb 13.0 D, Hct 41.8, MCV 93.9, MCH 29.0, MCHC 30.9 L, RDW 15.0, Plt Count 225, MPV 8.6, Neut % (Auto) 93.4 H, Lymph % (Auto) 2.7 L, [place] % (Auto) 2.4, Eos % (Auto) 0.2, Baso % (Auto) 1.3, Neut # (Auto) 25.5 H, Lymph # (Auto) 0.7, [place] # (Auto) 0.7, Eos # (Auto) 0.1, Baso # (Auto) 0.4 H, Total Counted 100, Neutrophils % (Manual) 86 H, Band Neutrophils % 8.0, Lymphocytes % (Manual) 4 L, Monocytes % (Manual) 2, Platelet Estimate Normal, RBC Morphology Not Reportable, Hypochromasia 2+ 03/08/21 07:22: Sodium 136, Potassium 4.3, Chloride 104, Carbon Dioxide 29, Anion Gap 7.3, BUN 21 H, Creatinine 0.80, Estimated Creat Clear 66, Estimated GFR 73, Est GFR ( Amer) 88, Glucose 118 H, Calcium 7.4 L I & O for Last 24 hours: Intake & Output 03/06/21 03/07/21 03/08/21 03/09/21 11:59 11:59 11:59 11:59 Intake Total 250 / 250 540 / 540 Balance 250 / 250 540 / 540 Weight 159 lb 1 oz 160 lb Microbiology Reports for the Last 24 Hours: Microbiology 03/07/21 16:44 Blood Blood Culture - Preliminary Narrative: Patient is sitting up in the side of the bed eating breakfast. She appears comfortable with no increased work of breathing. Lung exam reveals persistence of right lower lobe rhonchi best heard posteriorly. Wheezing is absent this morning. Heart has a regular rate and rhythm Assessment and Plan (1) CAP (community acquired pneumonia) Status: Acute Qualifiers: Laterality: unspecified laterality Qualified Code(s): J18.9 - Pneumonia, unspecified organism Category: Medical Code(s): J18.9 - Pneumonia, unspecified organism (2) Gram-positive bacteremia Status: Acute Category: Medical Code(s): R78.81 - Bacteremia - Assessment and plan all Dx Assessment and Plan for all problems:: 1. Continue Rocephin and azithromycin for community-acquired pneumonia 2. Early blood culture results suggest strep pneumonia. Patient has been made aware this will require a longer course of IV antibiotics
[2021-03-09 07:22] LABS: MANUAL DIFFERENTIAL MANUAL DIFFERENTIAL (MANUAL DIFF)
[2021-03-09 08:48] LABS: Eosinophils % 1 % (0-3); Lymphocytes % 10 % (10-50); Monocytes % 2 % (2-9); Neutrophils % 86 % (42-76); Total Cells Counted 100
[2021-03-09 08:49] LABS: Hypochromasia 2+; Platelet Estimate Normal
--- NOTE | 2021-03-09 13:47 | SW/DCPLANNER ---
SPOKE WITH DR EDWARDS THIS MORNING AFTER HE MADE ROUNDS AND HE STATED PATIENT IS GOING TO NEED IV ANTIBIOTICS.. SHE ADMITTED TO [facility] WITH PNEUMONIA AND HYPOXIA...IF PATIENT SHOULD DISCHARGE HOME THIS WILL BE SET UP OR PATIENT MAY PREFER TO COME BACK TO THE HOSPITAL FOR OUT PATIENT SERVICES... DISPOSITION UNCERTAIN, CM WILL FOLLOW AND ASSIST INDICATED.
--- NOTE | 2021-03-09 18:30 | PC.NURSE ---
Pt has been pleasant and cooperative this shift. A&O X4. Pt has had 1 complaint of back pain thus far this shift and has been medicated with Powell per MAY. Pt reports favorable results. Pt is currently receiving humidified O2 via NC @ 3 LPM with sats. >90%. Lung sounds reveal expiratory rhonchi. No edema noted. Skin is C/D/I. Pt ambulates independently to/from the bathroom and throughout the room. Urine is clear and yellow. No BM thus far today. Appetite is good and pt eats the majority of all meals. 20 G peripheral IV in the RT wrist is patent and SL. VSS. Call light within reach. Will continue to monitor.
[2021-03-10] VITALS (7 sets, daily range): BP systolic 101–112; BP diastolic 60–78; PULSE 75–88; RESP 14–20; TEMP 36.7; O2SAT 86–97; BMI 32.0
--- NOTE | 2021-03-10 04:27 | PC.NURSE ---
Pt a + o x4. Pt tolerating 3 L nc well with sats above 90%. Pt c/o pain in lower back rating it 10/10. Pain medication administered per MAR with favorable results.
[2021-03-10 06:41] LABS: Basophils % 0.5 % (0.1-2.0); Eosinophils # 0.1 K/mm3 (0.0-0.4); Eosinophils % 1.1 % (0.1-12.0); Hematocrit 39.2 % (37.0-47.0); Hemoglobin 12.2 g/dL (12.2-16.2); Lymphocytes # 1.9 K/mm3 (0.7-4.5); Lymphocytes % 20.5 % (10-50); Mean Corpuscular Volume 93.4 fl (81-99); Mean Platelet Volume 8.3 fl (7.4-10.4); Monocytes # 0.4 K/mm3 (0.1-1.0); Monocytes % 3.7 % (1.7-9.3); Neutrophils # 6.9 K/mm3 (1.8-7.8); Neutrophils % 74.2 % (37.0-80.0); Platelet Count 205 K/mm3 (142-424); White Blood Count 9.3 K/mm3 (4.8-10.8)
[2021-03-10 06:48] LABS: Chloride 107 mmol/L (98-107)
[2021-03-10 06:49] LABS: Potassium 3.8 mmoL/L (3.5-5.1); Sodium 142 mmol/L (136-145)
[2021-03-10 06:51] LABS: Blood Urea Nitrogen 13 mg/dl (7-17); Creatinine Clearance Estimated 68 mL/min (50-200); Estimated Glomerular Filt Rate 73 ml/min (>60); GFR (African American) 88 ML/MIN (>60)
[2021-03-10 06:52] LABS: Anion Gap 7.8 mEq/L (5-15); Calcium 8.1 mg/dl (8.4-10.2); Carbon Dioxide 31 mmol/L (22.0-30.0); Glucose 83 mg/dl (74-100)
--- NOTE | 2021-03-10 08:03 | P.PN_ITS ---
Internal Medicine - PN: Subj *Date: 03/10/21 *Time: 08:03 Interval history: Patient is in no distress. She is getting less short of breath each day. Exam Vital signs and Labs for Last 24 Hours: Temp Pulse Resp BP Pulse Ox 98.0 F 86 20 110/60 86 L 03/10/21 07:29 03/10/21 07:29 03/10/21 07:29 03/10/21 07:29 03/10/21 07:29 Laboratory Results - last 24 hr 03/09/21 06:02: Total Counted 100, Neutrophils % (Manual) 86 H, Band Neutrophils % 1.0, Lymphocytes % (Manual) 10, Monocytes % (Manual) 2, Eosinophils % (Manual) 1, Platelet Estimate Normal, Hypochromasia 2+ 03/10/21 06:05: WBC 9.3 D, RBC 4.20, Hgb 12.2, Hct 39.2, MCV 93.4, MCH 29.0, MCHC 31.0 L, RDW 15.0, Plt Count 205, MPV 8.3, Neut % (Auto) 74.2, Lymph % (Auto) 20.5, [place] % (Auto) 3.7, Eos % (Auto) 1.1, Baso % (Auto) 0.5, Neut # (Auto) 6.9, Lymph # (Auto) 1.9, [place] # (Auto) 0.4, Eos # (Auto) 0.1, Baso # (Auto) 0.0 03/10/21 06:05: Sodium 142, Potassium 3.8, Chloride 107, Carbon Dioxide 31 H, Anion Gap 7.8, BUN 13 D, Creatinine 0.80, Estimated Creat Clear 68, Estimated GFR 73, Est GFR ( Amer) 88, Glucose 83, Calcium 8.1 L I & O for Last 24 hours: Intake & Output 03/07/21 03/08/21 03/09/21 03/10/21 11:59 11:59 11:59 11:59 Intake Total 250 / 250 780 / 780 890 / 890 Balance 250 / 250 780 / 780 890 / 890 Weight 159 lb 1 oz 160 lb 163 lb Microbiology Reports for the Last 24 Hours: Microbiology 03/07/21 16:44 Blood Blood Culture - Preliminary NO GROWTH AFTER 48 HOURS 03/07/21 16:44 Blood Blood Culture - Preliminary Gram Positive Cocci Narrative: Patient is in no distress. Lung exam has clear right lung base and some rhonchi at the left lung base.. Heart has a regular rate and rhythm Assessment and Plan (1) CAP (community acquired pneumonia) Status: Acute Qualifiers: Laterality: unspecified laterality Qualified Code(s): J18.9 - Pneumonia, unspecified organism Category: Medical Code(s): J18.9 - Pneumonia, unspecified organism (2) Gram-positive bacteremia Status: Acute Category: Medical Code(s): R78.81 - Bacteremia - Assessment and plan all Dx Assessment and Plan for all problems:: 1. Patient will receive her scheduled antibiotics today and then be discharged. She will continue 3 additional days of IV Rocephin here at the hospital as an outpatient. She will be given 1 additional dose of azithromycin for home use.
--- NOTE | 2021-03-10 08:05 | HMH.DCSUM ---
General - General Admission date:: 03/07/21 Discharge date: 03/10/21 HPI HPI: 60-year-old female presented to the emergency department with right anterior and lateral pain in the rib cage after she had leaned over an object and rested her chest against an edge. Patient has a history of broken ribs and thought she had refractured her ribs. In the ER she underwent evaluation that included a right rib series and she was found to have a right lower lobe pneumonia. Patient claims she was treated for pneumonia about a month ago. There is evidence of x-ray from January which did not reveal any pneumonia at that time. Patient admits to hot and cold spells as well as increased cough that is loose. She has not identified any discolored sputum. Patient does have a history of COPD. She uses oxygen at night attached to her CPAP machine. In the ER white blood cell count was elevated. Patient was requiring supplemental oxygen. She was admitted for treatment of community-acquired pneumonia Hospital Course Hospital Course: Patient was admitted and placed on Rocephin and azithromycin for right lower lobe pneumonia. Patient did require supplemental oxygen during the day (patient uses supplemental oxygen at night). Patient's white count was elevated and peaked at 27,000 and then gradually decreased to 9000 at discharge. I believe the white count adebayo due to administration of steroids in the emergency department. Clinically patient improved each day. Her oxygen requirement persisted at at 3 L/min. Room air sat was 86% at rest on the day of discharge. Patient was growing what appeared to be streptococcal pneumonia and a blood culture. Decision was made to continue IV antibiotics for a total of 7 days with Rocephin and patient would finish a course of oral azithromycin. On March 10 patient was discharged home. Patient will follow up in the office in 5 to 6 days. Objective Vital signs: Temp Pulse Resp BP Pulse Ox 98.0 F 86 20 110/60 86 L 03/10/21 07:29 03/10/21 07:29 03/10/21 07:29 03/10/21 07:29 03/10/21 07:29 Results Labs on day of discharge: Labs from last 24 hours 03/10/21 03/10/21 03/09/21 06:05 06:05 06:02 WBC 9.3 D RBC 4.20 Hgb 12.2 Hct 39.2 MCV 93.4 MCH 29.0 MCHC 31.0 L RDW 15.0 Plt Count 205 MPV 8.3 Neut % (Auto) 74.2 Lymph % (Auto) 20.5 [place] % (Auto) 3.7 Eos % (Auto) 1.1 Baso % (Auto) 0.5 Neut # (Auto) 6.9 Lymph # (Auto) 1.9 [place] # (Auto) 0.4 Eos # (Auto) 0.1 Baso # (Auto) 0.0 Total Counted 100 Neutrophils % (Manual) 86 H Band Neutrophils % 1.0 Lymphocytes % (Manual) 10 Monocytes % (Manual) 2 Eosinophils % (Manual) 1 Platelet Estimate Normal Hypochromasia 2+ Sodium 142 Potassium 3.8 Chloride 107 Carbon Dioxide 31 H Anion Gap 7.8 BUN 13 D Creatinine 0.80 Estimated Creat Clear 68 Estimated GFR 73 Est GFR ( Amer) 88 Glucose 83 Calcium 8.1 L Preliminary micro results at discharge 03/07/21 16:44 Blood Culture - Preliminary Blood NO GROWTH AFTER 48 HOURS 03/07/21 16:44 Blood Culture - Preliminary Blood Gram Positive Cocci DS: Diagnosis - Discharge Diagnosis (1) CAP (community acquired pneumonia) Status: Acute (2) Gram-positive bacteremia Status: Acute Discharge Plan - Patient Discharge Instructions ACTIVITY: Continue current activity DIET: continue same diet Patient Instructions: Pneumonia-Adult, Home Oxygen Therapy, DI for Pneumonia -- Adult, DI for Hypoxia - Follow up Plan Follow up with: Adryan Cheng MD [Staff Physician] - 03/14/21 Disposition: Home, Self-Care Condition at discharge:: Improved Home Medications: Home Medications Medication Instructions Recorded Confirmed Type dexlansoprazole 60 mg 60 mg PO DAILY 07/30/17 03/07/21 History capsule,biphase delayed release dicyclomine 20 mg tablet
--- NOTE | 2021-03-10 10:18 | SW/DCPLANNER ---
PATIENT IS DISCHARGING HOME AFTER SHE RECEIVES HER IV ANTIBIOTIC.. SHE WEARS 02 AT HOME AND IS GOING TO NEED A PORTABLE TANK IN ORDER TO RETURN HOME WITH SATS DROPPING INTO THE LOW 80'S... SHE WILL COME BACK TO THE HOSPITAL OUT PATIENT DEPT FOR THE NEXT 3 DAYS TO COMPLETE HER ANTIBIOTICS..I HAVE ASKED [place] TO BRING TANK UP PRIOR TO HER DISCHARGING TODAY..
--- NOTE | 2021-03-10 12:01 | P.PN_ITS ---
Internal Medicine - PN: Subj *Date: 03/10/21 *Time: 12:01 Exam Vital signs and Labs for Last 24 Hours: Temp Pulse Resp BP Pulse Ox 98.1 F 75 20 112/78 95 03/10/21 11:40 03/10/21 11:40 03/10/21 11:40 03/10/21 11:40 03/10/21 11:40 Laboratory Results - last 24 hr 03/10/21 06:05: WBC 9.3 D, RBC 4.20, Hgb 12.2, Hct 39.2, MCV 93.4, MCH 29.0, MCHC 31.0 L, RDW 15.0, Plt Count 205, MPV 8.3, Neut % (Auto) 74.2, Lymph % (Auto) 20.5, [place] % (Auto) 3.7, Eos % (Auto) 1.1, Baso % (Auto) 0.5, Neut # (Auto) 6.9, Lymph # (Auto) 1.9, [place] # (Auto) 0.4, Eos # (Auto) 0.1, Baso # (Auto) 0.0 03/10/21 06:05: Sodium 142, Potassium 3.8, Chloride 107, Carbon Dioxide 31 H, Anion Gap 7.8, BUN 13 D, Creatinine 0.80, Estimated Creat Clear 68, Estimated GFR 73, Est GFR ( Amer) 88, Glucose 83, Calcium 8.1 L I & O for Last 24 hours: Intake & Output 03/07/21 03/08/21 03/09/21 03/10/21 23:59 23:59 23:59 23:59 Intake Total 730 / 790 830 / 830 360 / 360 Balance 730 / 790 830 / 830 360 / 360 Weight 73.539 kg 72.57 kg 72.575 kg 73.936 kg Microbiology Reports for the Last 24 Hours: Microbiology 03/07/21 16:44 Blood Blood Culture - Final Streptococcus pneumoniae 03/07/21 16:44 Blood Blood Culture - Preliminary NO GROWTH AFTER 48 HOURS Assessment and Plan (1) CAP (community acquired pneumonia) Status: Acute Qualifiers: Laterality: unspecified laterality Qualified Code(s): J18.9 - Pneumonia, unspecified organism Category: Medical Code(s): J18.9 - Pneumonia, unspecified organism (2) Gram-positive bacteremia Status: Acute Category: Medical Code(s): R78.81 - Bacteremia The patient's infection will respond to the chosen ABx?: Yes Is the patient receiving the right drug, dose, and route?: Yes Could a more targeted ABx be ordered?: No
== END 2021-03-10 13:07 | disposition home or self-care (01) | DRG 194 ==
LOC: ER 16:00 → 2ND 17:41
PROVIDERS: Admitting Provider Family Medicine; Emergency Provider Emergency Medicine; PCP Nurse Practitioner Family; Visit Provider Family Medicine
DX: J18.9 Pneumonia, unspecified organism (principal); J44.0 Chronic obstructive pulmonary disease with (acute) lower respiratory infection; Z99.81 Dependence on supplemental oxygen; Z20.822 Contact with and (suspected) exposure to COVID-19; F17.210 Nicotine dependence, cigarettes, uncomplicated; Z79.899 Other long term (current) drug therapy; I11.0 Hypertensive heart disease with heart failure; I50.9 Heart failure, unspecified; Z86.73 Personal history of transient ischemic attack (TIA), and cerebral infarction without residual deficits; R56.9 Unspecified convulsions; M79.7 Fibromyalgia; M81.0 Age-related osteoporosis without current pathological fracture; F32.A Depression, unspecified
CPT/HCPCS: 36415; 71101; 80048; 80053; 83605; 84484; 85007; 85025; 85378; 87040; 87077; 87186; 93005; 94640; 94761; 96365; 96367; 99284; C9803; J0456; J2405; U0003; U0005

== ENCOUNTER 2021-03-11 11:59 | Outpatient (CLI) | payer MEDICARE, OTHER, SELFPAY ==
[2021-03-11 12:27] VITALS: BP 99/59; PULSE 64; RESP 18; TEMP 36.6; O2SAT 96
== END 2021-03-11 13:08 | disposition home or self-care (01) ==
PROVIDERS: PCP Nurse Practitioner Family; Visit Provider Family Medicine
DX: R78.81 Bacteremia (principal)
CPT/HCPCS: 96365; J0696

== ENCOUNTER 2021-03-12 11:39 | Outpatient (CLI) | payer MEDICARE, OTHER, SELFPAY | END 2021-03-12 12:53 | disposition home or self-care (01) | PROVIDERS: PCP Nurse Practitioner Family; Visit Provider Family Medicine | DX: R78.81 Bacteremia (principal) | CPT/HCPCS: 96365; J0696 ==

== ENCOUNTER 2021-03-13 11:47 | Outpatient (CLI) | payer MEDICARE, OTHER, SELFPAY ==
[2021-03-13 12:10] VITALS: BP 130/73; PULSE 78; RESP 20; TEMP 36.3; O2SAT 98
[2021-03-13 12:54] VITALS: BP 133/71; PULSE 74; RESP 20; O2SAT 98
== END 2021-03-13 12:58 | disposition home or self-care (01) ==
LOC: INF 11:49
PROVIDERS: PCP Family Medicine; Visit Provider Family Medicine
DX: R78.81 Bacteremia (principal)
CPT/HCPCS: 96365; J0696

== ENCOUNTER → 2021-03-21 11:32 | Outpatient (CLI) | payer MEDICARE, OTHER, SELFPAY ==
--- NOTE | 2021-03-21 11:40 | XR_ITS ---
FINAL REPORT CLINICAL HISTORY: PNEUMONIA DUE TO STREPTOCCUS COMPARISON: March 07, 2021 FINDINGS: Two views of the chest were obtained. The heart size and pulmonary vascularity are within normal limits. The mediastinum is normal. There is improved right base opacity with persistent mild bibasilar opacity. There is no pneumothorax. The bony thorax is intact. IMPRESSION: Improved pneumonia. Reviewed, Interpreted and Dictated by Mamadou Dutton III, MD Transcribed by Tacho Mendoza Authenticated by Mamadou Dutton III, MD on 03/21/2021 12:54:[address] [facility]
[2021-03-21 12:08] LABS: Basophils # 0.2 K/mm3 (0-0.2); Basophils % 1.7 % (0.1-2.0); Eosinophils # 0.2 K/mm3 (0.0-0.4); Eosinophils % 1.8 % (0.1-12.0); Hematocrit 48.8 % (37.0-47.0); Hemoglobin 15.3 g/dL (12.2-16.2); Lymphocytes # 2.5 K/mm3 (0.7-4.5); Lymphocytes % 25.6 % (10-50); Mean Corpuscular HGB Conc 31.3 g/dL (31.8-35.4); Mean Corpuscular Hemoglobin 29.7 pg (27.0-31.2); Mean Corpuscular Volume 94.6 fl (81-99); Mean Platelet Volume 8.4 fl (7.4-10.4); Monocytes # 0.4 K/mm3 (0.1-1.0); Monocytes % 4.4 % (1.7-9.3); Neutrophils # 6.4 K/mm3 (1.8-7.8); Neutrophils % 66.6 % (37.0-80.0); Platelet Count 210 K/mm3 (142-424); Red Blood Count 5.16 M/mm3 (4.20-5.40); Red Cell Distribution Width 15.3 % (11.5-17.5); White Blood Count 9.6 K/mm3 (4.8-10.8)
== END ==
PROVIDERS: PCP Family Medicine; Visit Provider Family Medicine
DX: R05.9 Cough, unspecified (principal); J15.4 Pneumonia due to other streptococci
CPT/HCPCS: 36415; 71046; 85025

== ENCOUNTER → 2021-04-17 13:32 | Outpatient (CLI) | payer MEDICARE, OTHER, SELFPAY | PROVIDERS: PCP Nurse Practitioner Family; Visit Provider Nurse Practitioner | DX: Z20.822 Contact with and (suspected) exposure to COVID-19 (principal) | CPT/HCPCS: C9803; U0003; U0005 ==

== ENCOUNTER → 2021-04-24 10:54 | Outpatient (CLI) | payer MEDICARE, OTHER, SELFPAY ==
[2021-04-25 08:38] LABS: Covid-19 Nasal PCR Sendout Lex NOT DETECTED
== END ==
PROVIDERS: PCP Nurse Practitioner Family; Visit Provider Nurse Practitioner
DX: Z20.822 Contact with and (suspected) exposure to COVID-19 (principal)
CPT/HCPCS: C9803; U0004; U0005

== ENCOUNTER → 2021-04-25 12:30 | Outpatient (CLI) | payer MEDICARE, OTHER, SELFPAY ==
--- NOTE | 2021-04-25 12:36 | XR_ITS ---
FINAL REPORT CLINICAL HISTORY: COPD,SOB COMPARISON: 03/21/2021 FINDINGS: TWO VIEWS OF THE CHEST The heart is normal in size. The mediastinum is unremarkable. The lungs are hyperinflated consistent with COPD. Note is made of mild scarring. There is a presumed loop recorder device in the anterior thorax. There is no pneumothorax. IMPRESSION: Overall stable findings. Reviewed, Interpreted and Dictated by Mamadou Dutton III, MD Transcribed by Deidre South Authenticated by Mamadou Dutton III, MD on 04/25/2021 02:35:02 PM [facility]
[2021-04-25 14:44] LABS: Basophils # 0.1 K/mm3 (0-0.2); Basophils % 0.7 % (0.1-2.0); Eosinophils # 0.2 K/mm3 (0.0-0.4); Eosinophils % 2.5 % (0.1-12.0); Hematocrit 46.5 % (37.0-47.0); Hemoglobin 14.5 g/dL (12.2-16.2); Lymphocytes # 2.3 K/mm3 (0.7-4.5); Lymphocytes % 36.7 % (10-50); Mean Corpuscular HGB Conc 31.2 g/dL (31.8-35.4); Mean Corpuscular Hemoglobin 28.9 pg (27.0-31.2); Mean Corpuscular Volume 92.8 fl (81-99); Mean Platelet Volume 7.9 fl (7.4-10.4); Monocytes # 0.3 K/mm3 (0.1-1.0); Monocytes % 5.3 % (1.7-9.3); Neutrophils # 3.4 K/mm3 (1.8-7.8); Neutrophils % 54.9 % (37.0-80.0); Platelet Count 230 K/mm3 (142-424); Red Blood Count 5.01 M/mm3 (4.20-5.40); Red Cell Distribution Width 14.4 % (11.5-17.5); White Blood Count 6.1 K/mm3 (4.8-10.8)
== END ==
PROVIDERS: PCP Nurse Practitioner Family; Visit Provider Nurse Practitioner Family
DX: R06.02 Shortness of breath (principal); J44.9 Chronic obstructive pulmonary disease, unspecified
CPT/HCPCS: 36415; 71046; 85025

== ENCOUNTER 2021-05-10 11:42 | Outpatient (CLI) | payer MEDICARE, OTHER, SELFPAY ==
[2021-05-10 12:04] VITALS: BP 105/54; PULSE 60; RESP 20; TEMP 36.2; O2SAT 94
== END 2021-05-10 12:19 | disposition home or self-care (01) ==
LOC: INF 11:43
PROVIDERS: PCP Nurse Practitioner Family; Visit Provider Nurse Practitioner Family
DX: M85.89 Other specified disorders of bone density and structure, multiple sites (principal)
CPT/HCPCS: 96372; J0897

== ENCOUNTER → 2021-05-12 12:17 | Outpatient (CLI) | payer MEDICARE, OTHER, SELFPAY ==
--- NOTE | 2021-05-12 12:26 | XR_ITS ---
FINAL REPORT CLINICAL HISTORY: FEVER/CHILLS-- hx od copd-- smoker COMPARISON: April 25, 2021 FINDINGS: Two views of the chest were obtained. An implantable loop recorder is seen. The heart size and pulmonary vascularity are within normal limits. The mediastinum is normal. There is mild scarring noted. There is no pneumothorax. The bony thorax is intact. IMPRESSION: No active cardiopulmonary disease. Reviewed, Interpreted and Dictated by Mamadou Dutton III, MD Transcribed by Tacho Mendoza Authenticated by Mamadou Dutton III, MD on 05/12/2021 01:28:27 PM [facility]
[2021-05-12 12:58] LABS: Basophils # 0.2 K/mm3 (0-0.2); Basophils % 2.3 % (0.1-2.0); Eosinophils # 0.2 K/mm3 (0.0-0.4); Eosinophils % 1.8 % (0.1-12.0); Hematocrit 49.9 % (37.0-47.0); Hemoglobin 15.5 g/dL (12.2-16.2); Lymphocytes # 2.4 K/mm3 (0.7-4.5); Lymphocytes % 28.5 % (10-50); Mean Corpuscular HGB Conc 31.1 g/dL (31.8-35.4); Mean Corpuscular Hemoglobin 28.5 pg (27.0-31.2); Mean Corpuscular Volume 91.8 fl (81-99); Mean Platelet Volume 8.4 fl (7.4-10.4); Monocytes # 0.4 K/mm3 (0.1-1.0); Monocytes % 5.3 % (1.7-9.3); Neutrophils # 5.1 K/mm3 (1.8-7.8); Neutrophils % 62.1 % (37.0-80.0); Platelet Count 219 K/mm3 (142-424); Red Blood Count 5.44 M/mm3 (4.20-5.40); Red Cell Distribution Width 15.1 % (11.5-17.5); White Blood Count 8.3 K/mm3 (4.8-10.8)
[2021-05-12 13:48] LABS: Alanine Aminotransferase 13 U/L (12-78); Albumin Level 4.6 g/dl (3.5-5.0); Alkaline Phosphatase 117 U/L (38-126); Anion Gap 9.2 mEq/L (5-15); Aspartate Amino Transferase 26 U/L (14-36); Bilirubin,Total 0.5 mg/dl (0.2-1.3); Blood Urea Nitrogen 19 mg/dl (7-17); Calcium 9.2 mg/dl (8.4-10.2); Carbon Dioxide 31 mmol/L (22.0-30.0); Chloride 101 mmol/L (98-107); Estimated Glomerular Filt Rate 63 ml/min (>60); GFR (African American) 77 ML/MIN (>60); Globulin 2.3 g/dL (1.3-3.2); Glucose 94 mg/dl (74-100); Potassium 4.2 mmoL/L (3.5-5.1); Sodium 137 mmol/L (136-145); Total Protein,Serum 6.9 g/dl (6.3-8.2)
== END ==
PROVIDERS: PCP Nurse Practitioner Family; Visit Provider Nurse Practitioner Family
DX: R50.9 Fever, unspecified (principal)
CPT/HCPCS: 36415; 71046; 80053; 85025

== ENCOUNTER 2021-05-16 11:57 | Emergency (ER) | payer MEDICARE, OTHER, SELFPAY ==
--- NOTE | 2021-05-16 13:23 | HMH.EDUTC ---
[facility] [place] Disposition Clinical Impression: Encounter for laboratory testing for COVID-19 virus Disposition: Home, Self-Care Condition on Discharge: Good Instructions: DI for COVID-19 (Suspected or Confirmed ), Preventing the Spread of Coronavirus Discharge Instructions Additional Instructions: Drink plenty of fluids. Take tylenol for pain or fever. Return if you begin to have difficulty breathing. Follow up with your regular doctor. GO TO THE ER FOR ANY WORSENING SYMPTOMS Quarantine until you know the results of your covid-19 test. If it is positive, the health department should call you and give you further instructions about your length of Quarantine and other things. Notify your school or workplace of your results and follow their instructions regarding return to work/school. Referrals: Sandra Orozco APRN [Primary Care Provider] - Time of Disposition: 13:47 Medical Decision Making - Medical Records Medical records reviewed: No: I reviewed the patient's medical records. - Rashaad Inquiry Pt receiving controlled substance: No Vital Signs: 05/16/21 13:27 05/16/21 13:29 Temperature 98 F 98 F Temperature Source Oral Pulse Rate 74 Pulse Rate [Left] 74 Respiratory Rate 20 20 Blood Pressure 125/66 Blood Pressure [Right Arm] 125/66 Blood Pressure Mean [Right Arm] 85 02 Sat by Pulse Oximetry 97 [facility] [place] HPI - General Stated complaint: covid test Time Seen by Provider: 05/16/21 13:23 - History of Present Illness Provider Complaint: She needs a covid-19 test for a medical procedure she is scheduled to have. She denies any symptoms. - Related Data Home Medications Medication Instructions Recorded Confirmed dexlansoprazole 60 mg 60 mg PO DAILY 07/30/17 05/10/21 capsule,biphase delayed release dicyclomine 20 mg tablet 20 mg PO Q6HP PRN 07/30/17 05/10/21 levocetirizine 5 mg tablet 5 mg PO HS 07/30/17 05/10/21 venlafaxine 150 mg tablet,extended 300 mg PO DAILY 07/30/17 05/10/21 release 24 hr Spironolactone [Spironolactone 25 mg PO DAILY 10/15/18 05/10/21 25mg Tablet] Simvastatin 40 mg PO HS 12/26/18 05/10/21 Montelukast Sodium [Singulair 10mg 10 mg PO PM 04/23/19 05/10/21 tablet] Primidone 50 mg PO TID PRN 04/23/19 05/10/21 rivaroxaban 15 mg tablet 15 mg PO DAILY 12/29/19 05/10/21 albuterol sulfate 90 mcg/actuation 1 inh INHALATION QID PRN 08/10/20 05/10/21 aerosol inhaler tiotropium bromide 2.5 2 puff INHALATION DAILY 08/10/20 05/10/21 mcg/actuation mist for inhalation Bisoprolol Fumarate [Bisoprolol 5 mg PO DAILY 11/02/20 05/10/21 5mg Tablet] Hydrocodone/Acetaminophen [Lortab 1 tab PO Q4HP PRN 11/02/20 05/10/21 10/325mg tablet] Zolpidem Tartrate [Ambien 5mg 5 mg PO HS 11/02/20 05/10/21 tablet] methocarbamoL [Methocarbamol] 750 mg PO TID PRN 11/02/20 05/10/21 Albuterol Sulfate [Albuterol 3 ml IH Q6H PRN 03/08/21 05/10/21 0.083% 2.5mg/3mL neb] Denosumab [Denosumab 60mg/mL 1 ml SQ Q6M 03/08/21 05/10/21 syringe] Ferrous Gluconate [Ferrous 324 mg PO DAILY 03/08/21 05/10/21 Gluconate 324mg Tab] Furosemide [Furosemide 20mg Tab*] 20 mg PO DAILY PRN 03/08/21 05/10/21 Meclizine HCl 1 tab PO TID PRN 03/08/21 05/10/21 Potassium Chloride [Klor-Con 10mEq 10 meq PO DAILY 03/08/21 05/10/21 tab] Pramipexole Di-HCl [Mirapex] 1.5 mg PO TID 03/08/21 05/10/21 Tizanidine HCl [Tizanidine HCl 2 mg PO BID PRN 05/10/21 05/10/21 2mg] Allergies Allergy/AdvReac Type Severity Reaction Status Date / Time celecoxib [From Celebrex] Allergy Severe RECTAL Verified 03/07/21 16:03 BLEEDING leflunomide Allergy Severe O-MDFHGB-RYPE/THROAT,TINGLING Verified 03/07/21 16:03 OF HANDS, SORE THROAT nortriptyline Allergy Severe Weakness Verified 03/07/21 16:03 cefdinir Allergy Intermediate I-ITCHING Verified 03/07/21 16:03 ciprofloxacin Allergy Intermediate I-HIVES, Verified 03/07/21 16:03 ITCHING gabapentin Allergy Intermediate
[2021-05-16 13:27] VITALS: BP 125/66; PULSE 74; RESP 20; TEMP 36.6; O2SAT 97
[2021-05-16 13:29] VITALS: BP 125/66; PULSE 74; RESP 20; TEMP 36.6
== END 2021-05-16 13:55 | disposition home or self-care (01) ==
PROVIDERS: Emergency Provider Nurse Practitioner Family; PCP Nurse Practitioner Family
DX: Z11.52 Encounter for screening for COVID-19 (principal)
CPT/HCPCS: G0463; 99211; C9803; U0003; U0005

== ENCOUNTER → 2021-06-12 08:41 | Outpatient (CLI) | payer MEDICARE, OTHER, SELFPAY ==
[2021-06-12 10:07] LABS: Bilirubin,Unconjugated 0.1 mg/dL (0.0-1.1)
[2021-06-12 10:08] LABS: Alanine Aminotransferase 13 U/L (12-78); Albumin Level 3.9 g/dl (3.5-5.0); Alkaline Phosphatase 119 U/L (38-126); Aspartate Amino Transferase 28 U/L (14-36); Bilirubin,Direct 0.3 mg/dl (0.0-0.4); Bilirubin,Indirect 0.1 mg/dL (0.0-0.9); Bilirubin,Total 0.4 mg/dl (0.2-1.3); Chol/HDL Ratio 3.1 (1-3.5); Cholesterol 150 mg/dl (140-200); HDL Cholesterol 49 mg/dl (40-60); Total Protein,Serum 6.3 g/dl (6.3-8.2); Triglycerides 96 mg/dl (30-150); VLDL Cholesterol 19 mg/dL (0-40)
[2021-06-12 10:19] LABS: Direct LDL Cholesterol 76.32 mg/dL (100-129)
== END ==
PROVIDERS: Internal Medicine Interventional Cardiology; PCP Nurse Practitioner Family; Visit Provider Pain Medicine Interventional Pain Medicine
DX: Z01.812 Encounter for preprocedural laboratory examination (principal); Z11.52 Encounter for screening for COVID-19; Z79.899 Other long term (current) drug therapy
CPT/HCPCS: 80061; 80076; C9803; U0003; U0005

== ENCOUNTER → 2021-08-01 10:54 | Outpatient (CLI) | payer MEDICARE, OTHER, SELFPAY ==
--- NOTE | 2021-08-01 11:03 | XR_ITS ---
FINAL REPORT CLINICAL HISTORY: RADICULOPATHY, LUMBAR REGION FINDINGS: SPINE LUMBOSACRAL BENDING VIEWS ONLY Two views were obtained. The vertebral body heights are preserved. There is no change in alignment with flexion and extension views. No gross soft tissue abnormality is identified. IMPRESSION: No acute process. Reviewed, Interpreted and Dictated by Priya Villalobos MD Transcribed by Deidre South Authenticated by Priya Villalobos MD on 08/01/2021 01:22:17 PM [facility]
[2021-08-01 12:24] LABS: Alanine Aminotransferase 13 U/L (12-78); Albumin Level 3.9 g/dl (3.5-5.0); Alkaline Phosphatase 97 U/L (38-126); Anion Gap 9.2 mEq/L (5-15); Aspartate Amino Transferase 27 U/L (14-36); Bilirubin,Indirect 0.2 mg/dL (0.0-0.9); Bilirubin,Total 0.2 mg/dl (0.2-1.3); Bilirubin,Unconjugated 0.3 mg/dL (0.0-1.1); Blood Urea Nitrogen 23 mg/dl (7-17); Calcium 8.9 mg/dl (8.4-10.2); Carbon Dioxide 35 mmol/L (22.0-30.0); Chloride 100 mmol/L (98-107); Chol/HDL Ratio 3.5 (1-3.5); Cholesterol 156 mg/dl (140-200); Estimated Glomerular Filt Rate 63 ml/min (>60); GFR (African American) 77 ML/MIN (>60); Glucose 91 mg/dl (74-100); HDL Cholesterol 44 mg/dl (40-60); Potassium 4.2 mmoL/L (3.5-5.1); Sodium 140 mmol/L (136-145); Total Protein,Serum 6.2 g/dl (6.3-8.2); Triglycerides 104 mg/dl (30-150); VLDL Cholesterol 21 mg/dL (0-40)
[2021-08-01 12:35] LABS: Direct LDL Cholesterol 82.25 mg/dL (100-129)
== END ==
PROVIDERS: PCP Nurse Practitioner Family; Referring Provider Physician Assistant Medical; Visit Provider Physician Assistant
DX: E78.00 Pure hypercholesterolemia, unspecified (principal); M54.16 Radiculopathy, lumbar region
CPT/HCPCS: 36415; 72120; 80048; 80061; 80076

== ENCOUNTER → 2021-10-13 15:17 | Outpatient (CLI) | payer MEDICARE, OTHER, SELFPAY ==
--- NOTE | 2021-10-13 15:20 | CA_ITS ---
FINAL REPORT TECHNIQUE: Color Doppler, duplex Doppler and compression sonography of the right lower extremity venous system was performed. CLINICAL HISTORY: PAIN AND SWELLING RLE X SEVERAL DAYS,NKI, PT ON ELIQUS FINDINGS: There is no evidence of deep venous thrombosis from the level of the groin to the calf. The veins are patent and compressible. There is a 2.7 cm complex collection in the popliteal fossa. IMPRESSION: No evidence of deep venous thrombosis right lower extremity. Collection in the popliteal fossa could represent a complicated popliteal cyst or other complicated fluid collection. If indicated, follow-up ultrasound or MRI. Reviewed, Interpreted and Dictated by Mamadou Dutton III, MD Transcribed by Tacho Mendoza Authenticated and [facility]
[2021-10-13 15:58] LABS: Basophils # 0.1 K/mm3 (0-0.2); Basophils % 1.3 % (0.1-2.0); Eosinophils # 0.2 K/mm3 (0.0-0.4); Eosinophils % 2.1 % (0.1-12.0); Hemoglobin 14.5 g/dL (12.2-16.2); Lymphocytes # 2.2 K/mm3 (0.7-4.5); Lymphocytes % 26.4 % (10-50); Mean Corpuscular HGB Conc 30.2 g/dL (31.8-35.4); Mean Corpuscular Hemoglobin 29.3 pg (27.0-31.2); Mean Platelet Volume 8.9 fl (7.4-10.4); Monocytes # 0.4 K/mm3 (0.1-1.0); Monocytes % 4.8 % (1.7-9.3); Neutrophils # 5.6 K/mm3 (1.8-7.8); Neutrophils % 65.5 % (37.0-80.0); Platelet Count 179 K/mm3 (142-424); Red Blood Count 4.95 M/mm3 (4.20-5.40); White Blood Count 8.5 K/mm3 (4.8-10.8)
[2021-10-13 17:19] LABS: Alanine Aminotransferase 17 U/L (12-78); Albumin/Globulin Ratio 1.7 (1.1-1.8); Alkaline Phosphatase 143 U/L (38-126); Aspartate Amino Transferase 30 U/L (14-36); Blood Urea Nitrogen 18 mg/dl (7-17); Calcium 8.8 mg/dl (8.4-10.2); Carbon Dioxide 32 mmol/L (22.0-30.0); Chloride 104 mmol/L (98-107); Estimated Glomerular Filt Rate 63 ml/min (>60); GFR (African American) 77 ML/MIN (>60); Globulin 2.4 g/dL (1.3-3.2); Glucose 86 mg/dl (74-100); Sodium 141 mmol/L (136-145); Total Protein,Serum 6.4 g/dl (6.3-8.2)
[2021-10-13 17:27] LABS: Bilirubin,Total < 0.1 mg/dl (0.2-1.3)
[2021-10-13 17:50] LABS: Thyroid Stimulating Hormone 1.82 uIU/mL (0.465-4.68)
== END ==
PROVIDERS: PCP Nurse Practitioner Family; Visit Provider Nurse Practitioner Family
DX: M79.604 Pain in right leg (principal); M79.89 Other specified soft tissue disorders; Z79.899 Other long term (current) drug therapy
CPT/HCPCS: 36415; 80053; 84443; 85025; 93971

== ENCOUNTER → 2021-10-30 15:41 | Outpatient (CLI) | payer MEDICARE, OTHER, SELFPAY ==
[2021-10-30 17:28] LABS: Alanine Aminotransferase 23 U/L (12-78); Albumin Level 3.8 g/dl (3.5-5.0); Alkaline Phosphatase 138 U/L (38-126); Anion Gap 7.9 mEq/L (5-15); Aspartate Amino Transferase 36 U/L (14-36); Blood Urea Nitrogen 15 mg/dl (7-17); Calcium 8.8 mg/dl (8.4-10.2); Carbon Dioxide 32 mmol/L (22.0-30.0); Chloride 102 mmol/L (98-107); Chol/HDL Ratio 2.6 (1-3.5); Cholesterol 121 mg/dl (140-200); Estimated Glomerular Filt Rate 63 ml/min (>60); GFR (African American) 77 ML/MIN (>60); Glucose 99 mg/dl (74-100); HDL Cholesterol 46 mg/dl (40-60); Potassium 3.9 mmoL/L (3.5-5.1); Sodium 138 mmol/L (136-145); Total Protein,Serum 6.1 g/dl (6.3-8.2); Triglycerides 172 mg/dl (30-150); VLDL Cholesterol 34 mg/dL (0-40)
[2021-10-30 18:03] LABS: Bilirubin,Total < 0.1 mg/dl (0.2-1.3)
[2021-10-30 22:54] LABS: Bilirubin,Indirect 0.1 mg/dL (0.0-0.9)
[2021-11-01 13:51] LABS: Direct LDL Cholesterol 48 mg/dL (100-129)
== END ==
PROVIDERS: PCP Nurse Practitioner Family; Visit Provider Internal Medicine Interventional Cardiology
DX: I10 Essential (primary) hypertension (principal); E78.00 Pure hypercholesterolemia, unspecified
CPT/HCPCS: 36415; 80048; 80061; 80076

== ENCOUNTER → 2021-11-09 11:01 | Outpatient (CLI) | payer MEDICARE, OTHER, SELFPAY ==
--- NOTE | 2021-11-09 11:07 | MR_ITS ---
FINAL REPORT CLINICAL HISTORY: RADICULOPATHY LUMBAR LOWER BACK PAIN WITH BILATERAL SCIATICA TINGLING , NUMBNESS AND PAIN DOWN LEGS PER PATIENT : CUTS CIRCULATION OFF ON THE LATERAL SIDE OF LEFT FOOT COMPARISON: 07/10/2019 FINDINGS: Multiplanar MR imaging of the lumbar spine was performed without contrast. On the sagittal T2-weighted images, disc degeneration is seen throughout. The vertebral alignment is normal. There is no evidence of fracture. The conus has an unremarkable appearance. L1-2: An annular bulge and facet arthropathy are present. There is mild bilateral neural foraminal narrowing. L2-3: An annular bulge is present. Facet arthropathy and osteophytes are present. There is a left posterolateral disc protrusion with mild right moderate left neural foraminal narrowing, stable. L3-4: An annular bulge and facet arthropathy are present. There is mild bilateral neural foraminal narrowing. L4-5: An annular bulge and facet arthropathy are present. There is mild bilateral neural foraminal narrowing. L5-S1: An annular bulge and facet arthropathy are present. There is a small right paracentral disc protrusion which contacts the right S1 nerve root, new. IMPRESSION: New, right paracentral disc protrusion at L5-S1 contacts the right S1 nerve root. Stable left posterolateral disc protrusion at L2-3. Multilevel degenerative disc disease and spondylosis. Reviewed, Interpreted and Dictated by Mamadou Dutton III, MD Transcribed by Deidre South Authenticated and [facility]
== END ==
PROVIDERS: PCP Nurse Practitioner Family; Visit Provider Physician Assistant Medical
DX: M54.16 Radiculopathy, lumbar region (principal)
CPT/HCPCS: 72148; 76376

== ENCOUNTER 2021-11-15 10:50 | Outpatient (CLI) | payer MEDICARE, OTHER, SELFPAY ==
[2021-11-15 11:01] VITALS: BP 119/67; PULSE 68; RESP 18; TEMP 36.2; O2SAT 95
== END 2021-11-15 11:24 | disposition home or self-care (01) ==
LOC: INF 10:51
PROVIDERS: PCP Nurse Practitioner Family; Visit Provider Nurse Practitioner Family
DX: M85.89 Other specified disorders of bone density and structure, multiple sites (principal)
CPT/HCPCS: 96372; J0897

== ENCOUNTER 2021-11-24 15:27 | Emergency (ER) | payer MEDICARE, OTHER, SELFPAY ==
[2021-11-24 16:25] VITALS: BP 122/67; PULSE 81; RESP 16; TEMP 36.7; O2SAT 99; BMI 27.1
--- NOTE | 2021-11-24 16:29 | EXP.UTC ---
Discharge Plan Disposition Patient Disposition: Home, Self-Care Condition: Good Prescriptions Prescriptions: New cephalexin 500 mg capsule 500 mg PO Q8H 7 Days Qty: 21 0RF No Action levocetirizine 5 mg tablet 5 mg PO HS venlafaxine 150 mg tablet extended release 24hr 300 mg PO DAILY Rx Instructions: take with food dexlansoprazole [Dexilant] 60 mg capsule,biphase delayed releas 60 mg PO DAILY dicyclomine 20 mg tablet 20 mg PO Q6HP PRN (Reason: STOMACH) Spiriva Respimat 2.5 mcg/actuation mist 2 puff INHALATION DAILY albuterol sulfate [Ventolin HFA] 90 mcg/actuation HFA aerosol inhaler 1 inh INHALATION QID PRN (Reason: Shortness Of Breath) Xarelto 15 mg tablet 15 mg PO DAILY Rx Instructions: must administer with evening meal spironolactone 25 MG tablet 25 mg PO DAILY hydrocodone-acetaminophen 1 TAB tablet 1 tab PO Q4HP PRN (Reason: PAIN) bisoprolol fumarate 5 MG tablet 5 mg PO DAILY methocarbamol 750 MG tablet 750 mg PO TID PRN (Reason: MUSCLE SPASMS) zolpidem 5 MG tablet 5 mg PO HS tizanidine 2 MG tablet 2 mg PO BID PRN (Reason: restless legs) simvastatin 40 tablet 40 mg PO HS primidone 50 MG tablet 50 mg PO TID PRN (Reason: Tremors) montelukast 10 MG tablet 10 mg PO PM potassium chloride 10 MEQ tablet extended release 10 meq PO DAILY Rx Instructions: take with furosemide furosemide 20 MG tablet 20 mg PO DAILY PRN (Reason: Edema) albuterol sulfate 2.5 MG/NEB solution for nebulization 3 ml IH Q6H PRN (Reason: Shortness Of Breath) meclizine 12.5 MG tablet 1 tab PO TID PRN (Reason: motion sickness) pramipexole 1.5 MG tablet 1.5 mg PO TID ferrous gluconate 324 MG tablet 324 mg PO DAILY Rx Instructions: take between meals denosumab 60 MG/ML syringe 1 ml SQ Q6M Referrals Follow up/Referrals: Sandra Orozco APRN [Primary Care Provider] - See instructions Activity Restrictions/Add. Instructions Additional Instructions/Restrictions: Take medications As prescribed Keep area clean and dry Allow steri strips to fall off Follow up with your Family Doctor if no improvement or any worsening of symptoms Even though you have taken medication in the past if you start breaking out in hives, itching or having signs of reaction stop medication immediately and go straight to the Closest Emergency room Clinical Impressions Clinical Impression: Skin tear Instructions Patient Instructions: Cephalexin Discharge ED Provider: Kaykay Watson [facility] [place] HPI General Stated complaint: AO 11/22@2300@home injured Left Leg Mode of Arrival: Ambulatory Source of Information: Patient Limitations: No Limitations Time Seen by Provider: 11/24/21 16:29 Description of Symptoms (Recalled from Triage Doc. by RN): C/O skin tear on left blair from bird feeder x3 days ago HEENT Symptoms (Recalled from RN notes): No Resp Symptoms (Recalled from RN notes): No Skin Symptoms (Recalled from RN notes): Yes (Skin tear left blair) MS Symptoms (Recalled from RN notes): No Functional Status (Recalled from RN notes): n/a History of Present Illness Provider Complaint: Patient states that she struck the side of her left lower leg on the bird feeder a couple days ago and has a skin tear States that they cleaned it and pulled the skin up over it but it keeps wanting to fold down States that she gets infected easy so she came in to see if she could get some antibiotics to help because she thinks it may be getting infected Related Data Home Medications Medication Instructions Recorded Confirmed dexlansoprazole 60 mg 60 mg PO DAILY acid reflux 07/30/17 11/15/21 capsule,biphase delayed release (Dexilant) dicyclomine 20 mg tablet 20 mg PO Q6HP PRN STOMACH 07/30/17 11/15/21 levocetirizine 5 mg tablet 5 mg PO HS Allergy symptoms 07/30/17 11/15/21 venlafaxine 150 mg tab
[2021-11-24 17:16] VITALS: BP 122/67; PULSE 81; RESP 16; TEMP 36.7; O2SAT 99
== END 2021-11-24 17:18 | disposition home or self-care (01) ==
PROVIDERS: Emergency Provider Nurse Practitioner; PCP Nurse Practitioner Family
DX: S81.812A Laceration without foreign body, left lower leg, initial encounter (principal); F17.210 Nicotine dependence, cigarettes, uncomplicated
CPT/HCPCS: 99212; G0463

== ENCOUNTER 2021-11-29 19:08 | Emergency (ER) | payer MEDICARE, OTHER, SELFPAY ==
[2021-11-29 19:10] VITALS: BP 132/76; PULSE 74; RESP 19; TEMP 36.8; O2SAT 96; BMI 29.9
--- NOTE | 2021-11-29 19:24 | EXP.UTC ---
Discharge Plan Disposition Patient Disposition: Home, Self-Care Condition: Good Prescriptions Prescriptions: New clindamycin HCl 300 mg capsule 300 mg PO Q8H 7 Days Qty: 21 0RF No Action levocetirizine 5 mg tablet 5 mg PO HS venlafaxine 150 mg tablet extended release 24hr 300 mg PO DAILY Rx Instructions: take with food dexlansoprazole [Dexilant] 60 mg capsule,biphase delayed releas 60 mg PO DAILY dicyclomine 20 mg tablet 20 mg PO Q6HP PRN (Reason: STOMACH) Spiriva Respimat 2.5 mcg/actuation mist 2 puff INHALATION DAILY albuterol sulfate [Ventolin HFA] 90 mcg/actuation HFA aerosol inhaler 1 inh INHALATION QID PRN (Reason: Shortness Of Breath) Xarelto 15 mg tablet 15 mg PO DAILY Rx Instructions: must administer with evening meal spironolactone 25 MG tablet 25 mg PO DAILY hydrocodone-acetaminophen 1 TAB tablet 1 tab PO Q4HP PRN (Reason: PAIN) bisoprolol fumarate 5 MG tablet 5 mg PO DAILY methocarbamol 750 MG tablet 750 mg PO TID PRN (Reason: MUSCLE SPASMS) zolpidem 5 MG tablet 5 mg PO HS tizanidine 2 MG tablet 2 mg PO BID PRN (Reason: restless legs) simvastatin 40 tablet 40 mg PO HS primidone 50 MG tablet 50 mg PO TID PRN (Reason: Tremors) montelukast 10 MG tablet 10 mg PO PM potassium chloride 10 MEQ tablet extended release 10 meq PO DAILY Rx Instructions: take with furosemide furosemide 20 MG tablet 20 mg PO DAILY PRN (Reason: Edema) albuterol sulfate 2.5 MG/NEB solution for nebulization 3 ml IH Q6H PRN (Reason: Shortness Of Breath) meclizine 12.5 MG tablet 1 tab PO TID PRN (Reason: motion sickness) pramipexole 1.5 MG tablet 1.5 mg PO TID ferrous gluconate 324 MG tablet 324 mg PO DAILY Rx Instructions: take between meals denosumab 60 MG/ML syringe 1 ml SQ Q6M cephalexin 500 mg capsule 500 mg PO Q8H 7 Days Qty: 21 0RF Referrals Follow up/Referrals: Sandra Orozco APRN [Primary Care Provider] - See instructions Activity Restrictions/Add. Instructions Additional Instructions/Restrictions: *Start antibiotic(s) immediately and be sure to take as ordered for the FULL length of time although you may be feeling better or start to see improvement in the next 24-48 hours *Monitor closely. Outlined redness so that you can monitor easier. Follow up immediately for new or worsening symptoms including but not limited to redness, swelling, streaking from site fever or chills. *Warm compress 15 minutes 3-4 times day *Never squeeze or pop these on your own. Seek immediate medical attention next time this occurs *Monitor Temp. Tylenol every 4 hours as needed and ibuprofen every 6 hours as needed (as long as your primary care doctor has told you that it is ok to take both. For fever, aches, pain. ER if no less that 101 despite Tylenol and ibuprofen ?Follow up with your family doctor/primary care physician in the next 48-72 hours if no improvement Clinical Impressions Clinical Impression: Cellulitis Instructions Patient Instructions: Cellulitis, Clindamycin Discharge ED Provider: Kaykay Watson [facility] [place] General Stated complaint: AO 11/22 SOMETHING FELL ON LEG Mode of Arrival: Ambulatory Source of Information: Patient Limitations: No Limitations Time Seen by Provider: 11/29/21 19:15 Description of Symptoms (Recalled from Triage Doc. by RN): PATIENT C/O INFECTED SKIN TEAR ON LEFT LEG. SHE WAS RECENTLY STARTED ON ANTIBIOTICS, BUT STATES IT SEEMS TO BE GETTING WORSE HEENT Symptoms (Recalled from RN notes): No Resp Symptoms (Recalled from RN notes): No Skin Symptoms (Recalled from RN notes): Yes MS Symptoms (Recalled from RN notes): No Functional Status (Recalled from RN notes): WNL History of Present Illness Provider Complaint: Patient states that she was seen and started on antibiotics recently for skin tear on her left lower le
[2021-11-29 19:37] VITALS: BP 132/76; PULSE 74; RESP 19; TEMP 36.8; O2SAT 96
== END 2021-11-29 19:43 | disposition home or self-care (01) ==
PROVIDERS: Emergency Provider Nurse Practitioner; PCP Nurse Practitioner Family
DX: L03.116 Cellulitis of left lower limb (principal)
CPT/HCPCS: 99212; G0463

== ENCOUNTER 2022-04-28 15:41 | Observation (INO) | payer MEDICARE, OTHER, SELFPAY ==
[2022-04-28] VITALS (9 sets, daily range): BP systolic 112–133; BP diastolic 59–79; PULSE 63–76; RESP 14–18; TEMP 36.4–36.7; O2SAT 94–96; BMI 29.2; BMI 29.4; BMI 31.2; BMI 31.6
--- NOTE | 2022-04-28 16:22 | EXP.UTC ---
Discharge Plan Disposition Patient Disposition: Still a Patient Prescriptions Prescriptions: No Action levocetirizine 5 mg tablet 5 mg PO HS venlafaxine 150 mg tablet extended release 24hr 300 mg PO DAILY Rx Instructions: take with food dexlansoprazole [Dexilant] 60 mg capsule,biphase delayed releas 60 mg PO DAILY dicyclomine 20 mg tablet 20 mg PO Q6HP PRN (Reason: STOMACH) Spiriva Respimat 2.5 mcg/actuation mist 2 puff INHALATION DAILY albuterol sulfate [Ventolin HFA] 90 mcg/actuation HFA aerosol inhaler 1 inh INHALATION QID PRN (Reason: Shortness Of Breath) Xarelto 15 mg tablet 15 mg PO DAILY Rx Instructions: must administer with evening meal spironolactone 25 MG tablet 25 mg PO DAILY hydrocodone-acetaminophen 1 TAB tablet 1 tab PO Q4HP PRN (Reason: PAIN) bisoprolol fumarate 5 MG tablet 5 mg PO DAILY methocarbamol 750 MG tablet 750 mg PO TID PRN (Reason: MUSCLE SPASMS) zolpidem 5 MG tablet 5 mg PO HS tizanidine 2 MG tablet 2 mg PO BID PRN (Reason: restless legs) clindamycin HCl 300 mg capsule 300 mg PO Q8H 7 Days Qty: 21 0RF simvastatin 40 tablet 40 mg PO HS primidone 50 MG tablet 50 mg PO TID PRN (Reason: Tremors) montelukast 10 MG tablet 10 mg PO PM potassium chloride 10 MEQ tablet extended release 10 meq PO DAILY Rx Instructions: take with furosemide furosemide 20 MG tablet 20 mg PO DAILY PRN (Reason: Edema) albuterol sulfate 2.5 MG/NEB solution for nebulization 3 ml IH Q6H PRN (Reason: Shortness Of Breath) meclizine 12.5 MG tablet 1 tab PO TID PRN (Reason: motion sickness) pramipexole 1.5 MG tablet 1.5 mg PO TID ferrous gluconate 324 MG tablet 324 mg PO DAILY Rx Instructions: take between meals denosumab 60 MG/ML syringe 1 ml SQ Q6M cephalexin 500 mg capsule 500 mg PO Q8H 7 Days Qty: 21 0RF Referrals Follow up/Referrals: Sandra Orozco APRN [Primary Care Provider] - See instructions Clinical Impressions Clinical Impression: Wound cellulitis Discharge ED Provider: Anant ([facility])Aaron [facility] [place] HPI General Stated complaint: AO 0129@home@1500 injured l leg Mode of Arrival: Ambulatory Source of Information: Patient Limitations: No Limitations Time Seen by Provider: 04/28/22 16:33 Description of Symptoms (Recalled from Triage Doc. by RN): PATIENT C/O WOUND TO LEFT LEG. SHE STATES SHE HIT IT ON A DOOR APPROX 2 WEEKS AGO. SHE REPORTS IT TURNED INTO A BLOOD BLISTER THAT POPPED YESTERDAY HEENT Symptoms (Recalled from RN notes): No Resp Symptoms (Recalled from RN notes): No Skin Symptoms (Recalled from RN notes): Yes MS Symptoms (Recalled from RN notes): No Functional Status (Recalled from RN notes): WNL History of Present Illness Provider Complaint: 62 yr old female presents for a wound to left leg. pt states 2 weeks ago she hit her leg on a car door the area turned into a blood blister and she seen her pcp and was told to soak area. pt states the blister opened up and many clots came out. today area is a open deep wound with redness. Related Data Home Medications Medication Instructions Recorded Confirmed dexlansoprazole 60 mg 60 mg PO DAILY acid reflux 07/30/17 11/15/21 capsule,biphase delayed release (Dexilant) dicyclomine 20 mg tablet 20 mg PO Q6HP PRN STOMACH 07/30/17 11/15/21 levocetirizine 5 mg tablet 5 mg PO HS Allergy symptoms 07/30/17 11/15/21 venlafaxine 150 mg tablet,extended 300 mg PO DAILY Depression 07/30/17 11/15/21 release 24 hr spironolactone 25 mg tablet 25 mg PO DAILY High blood pressure 10/15/18 11/15/21 simvastatin 40 mg tablet 40 mg PO HS High cholesterol 12/26/18 11/15/21 montelukast 10 mg tablet 10 mg PO PM ALLERGIES 04/23/19 11/15/21 primidone 50 mg tablet 50 mg PO TID PRN Tremors 04/23/19 11/15/21 rivaroxaban 15 mg tablet (Xarelto) 15 mg PO DAILY Blood thinner 12/29/19
--- NOTE | 2022-04-28 17:18 | PC.NURSE ---
ER AT BEDSIDE
--- NOTE | 2022-04-28 17:18 | HMH.EDGENADL ---
Discharge Plan Disposition Patient Disposition: Admitted as Observation Condition: Good Prescriptions Prescriptions: No Action levocetirizine 5 mg tablet 5 mg PO HS venlafaxine 150 mg tablet extended release 24hr 300 mg PO DAILY Rx Instructions: take with food dexlansoprazole [Dexilant] 60 mg capsule,biphase delayed releas 60 mg PO DAILY dicyclomine 20 mg tablet 20 mg PO Q6HP PRN (Reason: STOMACH) Spiriva Respimat 2.5 mcg/actuation mist 2 puff INHALATION DAILY albuterol sulfate [Ventolin HFA] 90 mcg/actuation HFA aerosol inhaler 1 inh INHALATION QID PRN (Reason: Shortness Of Breath) Xarelto 15 mg tablet 15 mg PO DAILY Rx Instructions: must administer with evening meal spironolactone 25 MG tablet 25 mg PO DAILY hydrocodone-acetaminophen 1 TAB tablet 1 tab PO Q4HP PRN (Reason: PAIN) bisoprolol fumarate 5 MG tablet 5 mg PO DAILY methocarbamol 750 MG tablet 750 mg PO TID PRN (Reason: MUSCLE SPASMS) zolpidem 5 MG tablet 5 mg PO HS tizanidine 2 MG tablet 2 mg PO BID PRN (Reason: restless legs) clindamycin HCl 300 mg capsule 300 mg PO Q8H 7 Days Qty: 21 0RF simvastatin 40 tablet 40 mg PO HS primidone 50 MG tablet 50 mg PO TID PRN (Reason: Tremors) montelukast 10 MG tablet 10 mg PO PM potassium chloride 10 MEQ tablet extended release 10 meq PO DAILY Rx Instructions: take with furosemide furosemide 20 MG tablet 20 mg PO DAILY PRN (Reason: Edema) albuterol sulfate 2.5 MG/NEB solution for nebulization 3 ml IH Q6H PRN (Reason: Shortness Of Breath) meclizine 12.5 MG tablet 1 tab PO TID PRN (Reason: motion sickness) pramipexole 1.5 MG tablet 1.5 mg PO TID ferrous gluconate 324 MG tablet 324 mg PO DAILY Rx Instructions: take between meals denosumab 60 MG/ML syringe 1 ml SQ Q6M cephalexin 500 mg capsule 500 mg PO Q8H 7 Days Qty: 21 0RF Referrals Follow up/Referrals: Sandra Orozco APRN [Primary Care Provider] - See instructions Clinical Impressions Clinical Impression: Ulcer of left lower leg, Cellulitis of left leg Instructions Patient Instructions: DI for Laceration Repair Discharge ED Provider: Michele Martinez General Adult HPI General Chief complaint: Wound/Laceration Stated complaint: AO 0129@home@1500 injured l leg Time Seen by Provider: 04/28/22 16:33 Mode of Arrival: Ambulatory Source of Information: Patient and Relative Limitations: No Limitations Description of Symptoms (Recalled from ER Triage Doc. by RN): Pt reports banged my left leg in the car door two weeks ago and it hadn't gotten any better , surrounding erythema marked and ttp, nad History of Present Illness HPI narrative: The patient is sent from the urgent treatment center. States she closed a car door on her left leg on about April 03, 2022. She says it formed a very large blood blister the size of a baseball. It eventually ruptured and then had some blood clots within the wound and she cleaned out with some Q-tips. She says her leg hurts when she is up on it but she does not have significant pain when recumbent. She has been seeing her primary care provider who has been having her treat with Epsom salt soaks. She has not been on any medications. She now has redness around the wound, and because of the depth of the wound that became evident after the clots were cleaned out she was convinced by family members to come into the emergency department. She denies fevers or chills. She does not have diabetes. Related Data Home Medications Medication Instructions Recorded Confirmed dexlansoprazole 60 mg 60 mg PO DAILY acid reflux 07/30/17 11/15/21 capsule,biphase delayed release (Dexilant) dicyclomine 20 mg tablet 20 mg PO Q6HP PRN STOMACH 07/30/17 11/15/21 levocetirizine 5 mg tablet 5 mg PO HS Allergy symptoms 07/30/17 11/15/21 abi
[2022-04-28 17:19] LABS: Coronavirus 19, PCR Not Detected (NotDetected); Influenza A, PCR Not Detected (NotDetected); Influenza B, PCR Not Detected (NotDetected)
[2022-04-28 17:22] LABS: Alanine Aminotransferase 20 U/L (12-78); Albumin Level 4.4 g/dl (3.5-5.0); Albumin/Globulin Ratio 1.5 (1.1-1.8); Alkaline Phosphatase 132 U/L (38-126); Anion Gap 7.1 mEq/L (5-15); Aspartate Amino Transferase 32 U/L (14-36); Bilirubin,Total 0.3 mg/dl (0.2-1.3); Blood Urea Nitrogen 20 mg/dl (7-17); Calcium 8.7 mg/dl (8.4-10.2); Carbon Dioxide 33 mmol/L (22.0-30.0); Chloride 105 mmol/L (98-107); Creatinine Clearance Estimated 59 mL/min (50-200); Estimated Glomerular Filt Rate 50 ml/min (>60); GFR (African American) 61 ML/MIN (>60); Globulin 2.9 g/dL (1.3-3.2); Glucose 126 mg/dl (74-100); Lactic Acid 0.7 mmol/L (0.7-2.1); Potassium 4.1 mmoL/L (3.5-5.1); Sodium 141 mmol/L (136-145); Total Protein,Serum 7.3 g/dl (6.3-8.2)
[2022-04-28 17:24] LABS: Basophils # 0.1 K/mm3 (0-0.2); Basophils % 1.1 % (0.1-2.0); Eosinophils # 0.1 K/mm3 (0.0-0.4); Eosinophils % 1.6 % (0.1-12.0); Hematocrit 42.7 % (37.0-47.0); Hemoglobin 13.7 g/dL (12.2-16.2); Lymphocytes # 2.1 K/mm3 (0.7-4.5); Lymphocytes % 26.6 % (10-50); Mean Corpuscular HGB Conc 32.2 g/dL (31.8-35.4); Mean Corpuscular Hemoglobin 28.4 pg (27.0-31.2); Mean Corpuscular Volume 88.2 fl (81-99); Monocytes # 0.4 K/mm3 (0.1-1.0); Monocytes % 4.4 % (1.7-9.3); Neutrophils # 5.3 K/mm3 (1.8-7.8); Neutrophils % 66.3 % (37.0-80.0); Platelet Count 229 K/mm3 (142-424); Red Blood Count 4.84 M/mm3 (4.20-5.40); Red Cell Distribution Width 15.3 % (11.5-17.5)
[2022-04-28 17:27] LABS: C-Reactive Protein 1.4 mg/L (0-4)
[2022-04-28 18:04] LABS: Erythrocyte Sedimentation Rate 14 mm/hr (0-30)
--- NOTE | 2022-04-28 18:37 | PC.NURSE ---
spoke with house fellow about admission
--- NOTE | 2022-04-28 19:08 | PC.NURSE ---
report called to marylou Fischer for pt admission to rm 210, no further questions, inpt team will come down and transport pt
--- NOTE | 2022-04-28 19:26 | PC.NURSE ---
Vancomycin completed. IV site flushed. Patient being transported to room per HARLEY Elizabeth.
--- NOTE | 2022-04-28 19:29 | PC.NURSE ---
Pt arrived to floor via stretcher @ 192.
--- NOTE | 2022-04-28 20:37 | EXP.HP ---
History of Present Illness *Admission Date: 04/28/22 *Reason for visit:: wound check *History of present illness: this is a 62-year-old female with past medical history of COPD, hypertension, hyperlipidemia who presents to the emergency department today with complaints of left lower leg wound. She reports being on Xarelto for prior CVA and had a car door's close on her leg approximately 2 weeks ago. She developed large hematoma of her left lower extremity with a spontaneous rupture of the surface of the skin over the last 2 days. She does endorse large blood clot was self removed after skin rupture. She does have a nurse in her family who has been helping her doctor her wound but recommended being seen for further recommendations. She reports mild tenderness, but denies fever. She reports feeling in her normal state of health otherwise. Emergency department work-up significant for mild LISA noted on labs with a creatinine of 1.1. Surgery was consulted and recommends local wound care and will see patient in the morning for further recommendations. she received vancomycin in the emergency department empirically. She is admitted to the hospital service for further evaluation. [facility] Disclaimer: The information contained in this section may have been updated after the patient was seen, as this information can be updated by other users. Medical History Anxiety Bulging disc Cataract Chest pain Degenerative disc disease Depression Fibromyalgia History of transient ischemic attack (TIA) HLD (hyperlipidemia) HTN (hypertension) Irritable bowel syndrome (IBS) Palpitations Pinched nerve Restless leg syndrome Rheumatoid arthritis Sleep apnea SOB (shortness of breath) Spinal stenosis Tachycardia Tobacco abuse Valvular heart disease White matter disease Surgical History History of partial hysterectomy History of removal of both ovaries Hx of cholecystectomy Previous back surgery Social History Smoking Status: Former smoker years smoked: 45 smoking status stop date: 2 months ago second hand exposure: Yes alcohol intake: former substance use type: denies use current occupational status: disabled Travel in the last 8 weeks: Inside the [place] household members: none housing: house current occupational exposures/hazards: No caffeine: Yes Review of Systems Review of Systems Review of systems:: pertinent systems reviewed and negative unless documented below Constitutional Constitutional: Denies headache(s) and Denies weakness ENT Ears, Nose, Mouth, and Throat: Denies headache(s) *Musculoskeletal Musculoskeletal: Denies numbness Integumentary/Breasts Comments: Large necrotic area to the left lower extremity with surrounding erythema *Neurologic Neurologic: Denies headache(s), Denies numbness and Denies weakness Meds Home Medications and Allergies Home Medications Medication Instructions Recorded Confirmed Type levocetirizine 5 mg tablet 5 mg PO HS Allergy symptoms 07/30/17 04/28/22 History venlafaxine 150 mg tablet,extended 300 mg PO DAILY Depression 07/30/17 04/28/22 History release 24 hr spironolactone 25 mg tablet 25 mg PO DAILY Fluid 10/15/18 04/28/22 History montelukast 10 mg tablet 10 mg PO PM ALLERGIES 04/23/19 04/29/22 History rivaroxaban 15 mg tablet (Xarelto) 15 mg PO DAILY Blood thinner 12/29/19 04/28/22 History albuterol sulfate 90 mcg/actuation 1 inh inhalation QIDP PRN 08/10/20 04/29/22 History aerosol inhaler (Ventolin HFA) Shortness Of Breath bisoprolol fumarate 5 mg tablet 5 mg PO DAILY Hypertension 11/02/20 04/28/22 History pramipexole 1.5 mg tablet 1.5 mg PO TID parkinsons disease 03/08/21 04/29/22 History tizanidine 2 mg tablet 4 mg PO BIDP PRN Muscle Spasm 05/10/21 04/29/22 History budesonide-formotero
--- NOTE | 2022-04-28 23:41 | PC.NURSE ---
SUNDAY value for pt left side 0.86, right side 0.98
[2022-04-29] VITALS: BP 109/64; PULSE 66; RESP 16; TEMP 36.9; O2SAT 98
[2022-04-29 04:00] VITALS: BMI 31.8
[2022-04-29 07:14] VITALS: BP 110/52; PULSE 65; RESP 17; TEMP 36.6; O2SAT 100
[2022-04-29 07:42] LABS: Basophils # 0.1 K/mm3 (0-0.2); Basophils % 1.2 % (0.1-2.0); Eosinophils # 0.1 K/mm3 (0.0-0.4); Eosinophils % 1.9 % (0.1-12.0); Hematocrit 40.4 % (37.0-47.0); Hemoglobin 12.8 g/dL (12.2-16.2); Lymphocytes # 2.1 K/mm3 (0.7-4.5); Lymphocytes % 33.7 % (10-50); Mean Corpuscular HGB Conc 31.6 g/dL (31.8-35.4); Mean Corpuscular Hemoglobin 28.5 pg (27.0-31.2); Mean Corpuscular Volume 90.1 fl (81-99); Mean Platelet Volume 7.9 fl (7.4-10.4); Monocytes # 0.3 K/mm3 (0.1-1.0); Monocytes % 4.9 % (1.7-9.3); Neutrophils # 3.6 K/mm3 (1.8-7.8); Neutrophils % 58.3 % (37.0-80.0); Platelet Count 194 K/mm3 (142-424); Red Blood Count 4.49 M/mm3 (4.20-5.40); Red Cell Distribution Width 15.2 % (11.5-17.5); White Blood Count 6.1 K/mm3 (4.8-10.8)
[2022-04-29 07:46] LABS: Chloride 108 mmol/L (98-107); Potassium 4.4 mmoL/L (3.5-5.1); Sodium 142 mmol/L (136-145)
[2022-04-29 07:49] LABS: Alanine Aminotransferase 16 U/L (12-78); Albumin Level 3.6 g/dl (3.5-5.0); Albumin/Globulin Ratio 1.5 (1.1-1.8); Alkaline Phosphatase 119 U/L (38-126); Anion Gap 5.4 mEq/L (5-15); Aspartate Amino Transferase 25 U/L (14-36); Bilirubin,Total 0.3 mg/dl (0.2-1.3); Blood Urea Nitrogen 15 mg/dl (7-17); Carbon Dioxide 33 mmol/L (22.0-30.0); Creatinine Clearance Estimated 66 mL/min (50-200); Estimated Glomerular Filt Rate 72 ml/min (>60); GFR (African American) 87 ML/MIN (>60); Globulin 2.4 g/dL (1.3-3.2); Glucose 92 mg/dl (74-100); Magnesium 2.1 mg/dl (1.6-2.3)
--- NOTE | 2022-04-29 07:52 | EXP.PHA.CONS ---
Pharmacy Consult Date: 04/29/22 Time: 07:52 Referring provider: DR. WHITE Reason for Consult:: VANCOMYCIN DOSING Allergies Allergy/AdvReac Type Severity Reaction Status Date / Time celecoxib [From Celebrex] Allergy Severe RECTAL Verified 03/07/21 16:03 BLEEDING leflunomide Allergy Severe S-FERFJD-XNTD/THROAT,TINGLING Verified 03/07/21 16:03 OF HANDS, SORE THROAT nortriptyline Allergy Severe Weakness Verified 03/07/21 16:03 cefdinir Allergy Intermediate I-ITCHING Verified 03/07/21 16:03 ciprofloxacin Allergy Intermediate I-HIVES, Verified 03/07/21 16:03 ITCHING gabapentin Allergy Intermediate BODY Verified 03/07/21 16:03 SWELLING nitrofurantoin Allergy Intermediate I-HIVES, Verified 03/07/21 16:03 [From Macrobid] ITCHING naproxen [From NAPROSYN] Allergy Unknown THROAT Verified 03/07/21 16:03 SWELLS Penicillins Allergy Verified 03/07/21 16:03 levofloxacin [From Levaquin] AdvReac Intermediate HYPER , Verified 03/07/21 16:03 SHAKES dexamethasone AdvReac Mild SHAKES Verified 03/07/21 16:03 Home Medications Medication Instructions Recorded Confirmed Type dexlansoprazole 60 mg 60 mg PO DAILY acid reflux 07/30/17 04/28/22 History capsule,biphase delayed release (Dexilant) dicyclomine 20 mg tablet 20 mg PO Q6HP PRN STOMACH 07/30/17 04/28/22 History levocetirizine 5 mg tablet 5 mg PO HS Allergy symptoms 07/30/17 04/28/22 History venlafaxine 150 mg tablet,extended 300 mg PO DAILY Depression 07/30/17 04/28/22 History release 24 hr spironolactone 25 mg tablet 25 mg PO DAILY High blood pressure 10/15/18 04/28/22 History simvastatin 40 mg tablet 40 mg PO HS High cholesterol 12/26/18 04/28/22 History montelukast 10 mg tablet 10 mg PO DAILY ALLERGIES 04/23/19 04/28/22 History primidone 50 mg tablet 5 mg PO TID PRN Tremors 04/23/19 04/28/22 History rivaroxaban 15 mg tablet (Xarelto) 15 mg PO DAILY Blood thinner 12/29/19 04/28/22 History albuterol sulfate 90 mcg/actuation 1 inh inhalation QID PRN Shortness 08/10/20 04/28/22 History aerosol inhaler (Ventolin HFA) Of Breath tiotropium bromide 2.5 2 puff inhalation DAILY COPD 08/10/20 04/28/22 History mcg/actuation mist for inhalation (Spiriva Respimat) bisoprolol fumarate 5 mg tablet 5 mg PO DAILY Hypertension 11/02/20 04/28/22 History hydrocodone 10 mg-acetaminophen 1 tab PO Q6 PRN PAIN 11/02/20 04/28/22 History 325 mg tablet albuterol sulfate 2.5 mg/3 mL 3 ml IH Q6H PRN Shortness Of Breath 03/08/21 04/28/22 History (0.083 %) solution for nebulization pramipexole 1.5 mg tablet 1.5 mg PO AMLAB parkinsons disease 03/08/21 04/28/22 History tizanidine 2 mg tablet 2 mg PO BID restless legs 05/10/21 04/28/22 History New Prescriptions to Start Prescriptions: Height: 1.52 m Weight: 73.539 kg Laboratory Results:: Laboratory Results - last 24 hr 04/28/22 16:58: WBC 8.0, RBC 4.84, Hgb 13.7, Hct 42.7, MCV 88.2, MCH 28.4, MCHC 32.2, RDW 15.3, Plt Count 229, MPV 8.0, Neut % (Auto) 66.3, Lymph % (Auto) 26.6, Gulf % (Auto) 4.4, Eos % (Auto) 1.6, Baso % (Auto) 1.1, Neut # (Auto) 5.3, Lymph # (Auto) 2.1, Gulf # (Auto) 0.4, Eos # (Auto) 0.1, Baso # (Auto) 0.1, ESR 14 04/28/22 16:58: Sodium 141, Potassium 4.1, Chloride 105, Carbon Dioxide 33 H, Anion Gap 7.1, BUN 20 H, Creatinine 1.10 H, Estimated Creat Clear 59, Estimated GFR 50 L, Est GFR ( Amer) 61, Glucose 126 H, Calcium 8.7, Total Bilirubin 0.3, AST 32, ALT 20, Alkaline Phosphatase 132 H, C-Reactive Protein 1.4, Total Protein 7.3, Albumin 4.4, Globulin 2.9, Albumin/Globulin Ratio 1.5 04/28/22 16:58: Lactate 0.7 04/28/22 17:10: SARS-CoV-2 (PCR) Not detected, Influenza A Untype (PCR) Not detected, Influenza Type B (PCR) Not detected 04/29/22 07:21: WBC 6.1, RBC 4.49, Hgb 12.8, Hct 40.4, MCV 90.1, MCH 28.5, MCHC 31.6 L, RDW 15.2, Plt Count 194, MPV 7.9, Neut % (Auto) 58.3, Lymph % (Auto) 33.7, Gulf % (Auto) 4.9, Eos % (Auto) 1.9, Baso % (Auto) 1.2, Neut # (Auto) 3.6, Lymph # (Auto) 2.1,
--- NOTE | 2022-04-29 10:41 | EXP.SURG.CON ---
History of Present Illness *Admission Date: 04/28/22 *History of present illness: From H&P: this is a 62-year-old female with past medical history of COPD, hypertension, hyperlipidemia who presents to the emergency department today with complaints of left lower leg wound. She reports being on Xarelto for prior CVA and had a car door's close on her leg approximately 2 weeks ago. She developed large hematoma of her left lower extremity with a spontaneous rupture of the surface of the skin over the last 2 days. She does endorse large blood clot was self removed after skin rupture. She does have a nurse in her family who has been helping her doctor her wound but recommended being seen for further recommendations. She reports mild tenderness, but denies fever. She reports feeling in her normal state of health otherwise. Emergency department work-up significant for mild LISA noted on labs with a creatinine of 1.1. Surgery was consulted and recommends local wound care and will see patient in the morning for further recommendations. she received vancomycin in the emergency department empirically. She is admitted to the hospital service for further evaluation. HPI: Ms. Cruz is a 62-year-old female who is admitted with nonhealing leg wound of the left lower extremity. She is therapeutically anticoagulated for prevention of stroke (possible A-fib per patient) and about 2 weeks ago she had some trauma to her leg from a car door. A blood blister raised up and popped 4 to 5 days ago with expression of clot from the wound. She reports that she cleaned the wound extensively with a Q-tip and peroxide, but presented to the ER with concern that the wound was not healing. She denies fever or other systemic symptoms. Of note, she has a history of nonhealing wounds on lower extremities, usually from trauma. She showed me a place on her right blair from where a dog had scratched her and she actually saw wound care as an outpatient for this wound. She denies diabetes, and she reports that she is a former smoker. [facility] Disclaimer: The information contained in this section may have been updated after the patient was seen, as this information can be updated by other users. Medical History Anxiety Bulging disc Cataract Chest pain Degenerative disc disease Depression Fibromyalgia History of transient ischemic attack (TIA) HLD (hyperlipidemia) HTN (hypertension) Irritable bowel syndrome (IBS) Palpitations Pinched nerve Restless leg syndrome Rheumatoid arthritis Sleep apnea SOB (shortness of breath) Spinal stenosis Tachycardia Tobacco abuse Valvular heart disease White matter disease Surgical History History of partial hysterectomy History of removal of both ovaries Hx of cholecystectomy Previous back surgery Social History Smoking Status: Former smoker years smoked: 45 smoking status stop date: 2 months ago second hand exposure: Yes alcohol intake: former substance use type: denies use current occupational status: disabled Travel in the last 8 weeks: Inside the [place] household members: none housing: house current occupational exposures/hazards: No caffeine: Yes Review of Systems Review of Systems Review of systems:: pertinent systems reviewed and negative unless documented below Constitutional Constitutional: Denies fever(s), Denies headache(s) and Denies weakness ENT Ears, Nose, Mouth, and Throat: Denies headache(s) *Musculoskeletal Musculoskeletal: Denies numbness Integumentary/Breasts Skin/Breast: Reports non-healing lesions and Reports wounds *Neurologic Neurologic: Denies headache(s), Denies numbness and Denies weakness Hematologic/Lymphatic Hematologic/Lymphatic: Reports easy bleeding Meds Home Medications and A
--- NOTE | 2022-04-29 10:56 | HMH.PTWOUND ---
Rehab Inpt Wound Evaluation Rehab IP Wound Evaluation Start: 04/28/22 18:38 Freq: ONCE Status: Active Protocol: Document 04/29/22 10:20 SUGAR (Rec: 04/29/22 10:55 SUGAR [id number]) Rehab PT Wound Assessment Subjective Subjective Pt is a 62 y/o female who presented to [facility] ER on 04/28/22 with complaints of LLE wound. Pt reports she had a car door close on her left leg ~2 weeks ago and is taking Xarelto for prior CVA. PEr history & physical note, she developed a large hematoma of her left lower extremity with a spontaneous rupture of the surface of the skin over the last 2 days. She does endorse large blood clot was self removed after skin rupture. She does have a nurse in her family who has been helping her doctor her wound but recommended being seen for further recommendations. She reports mild tenderness, but denies fever. Emergency department work-up significant for mild LISA noted on labs with a creatinine of 1.1. Surgery was consulted and recommends local wound care and will see patient in the morning for further recommendations. she received vancomycin in the emergency department empirically. She is admitted to the hospital service for further evaluation . She reports feeling in her normal state of health otherwise. Pt reports history of other wounds and reports she is having pain of the LLE this date. Medical History: COPD, hypertension, hyperlipidemia Wound Left Leg Wound Type Laceration Is This a Chronic Wound No Wound Staging Unstageable Query Text:Stage I - Unbroken, red skin, no blanching. Stage II - Skin br
[2022-04-29 11:13] VITALS: BP 112/60; PULSE 68; RESP 17; TEMP 36.5; O2SAT 99
--- NOTE | 2022-04-29 11:15 | HMH.PHAINT1 ---
Pharmacy Intervention Comments: MEDICATION RECONCILIATION COMPLETED ON PATIENT USING EXTERNAL FILL HISTORY FROM PHARMACY, MOHSEN REPORT, AND PATIENT INTERVIEW. -COURTNEY PACHECOD
--- NOTE | 2022-04-29 13:16 | EXP.DC.SUM ---
General Admission date:: 04/28/22 Discharge date: 04/29/22 HPI HPI HPI: From H&P: this is a 62-year-old female with past medical history of COPD, hypertension, hyperlipidemia who presents to the emergency department today with complaints of left lower leg wound. She reports being on Xarelto for prior CVA and had a car door's close on her leg approximately 2 weeks ago. She developed large hematoma of her left lower extremity with a spontaneous rupture of the surface of the skin over the last 2 days. She does endorse large blood clot was self removed after skin rupture. She does have a nurse in her family who has been helping her doctor her wound but recommended being seen for further recommendations. She reports mild tenderness, but denies fever. She reports feeling in her normal state of health otherwise. Emergency department work-up significant for mild LISA noted on labs with a creatinine of 1.1. Surgery was consulted and recommends local wound care and will see patient in the morning for further recommendations. she received vancomycin in the emergency department empirically. She is admitted to the hospital service for further evaluation. HPI: Ms. Cruz is a 62-year-old female who is admitted with nonhealing leg wound of the left lower extremity. She is therapeutically anticoagulated for prevention of stroke (possible A-fib per patient) and about 2 weeks ago she had some trauma to her leg from a car door. A blood blister raised up and popped 4 to 5 days ago with expression of clot from the wound. She reports that she cleaned the wound extensively with a Q-tip and peroxide, but presented to the ER with concern that the wound was not healing. She denies fever or other systemic symptoms. Of note, she has a history of nonhealing wounds on lower extremities, usually from trauma. She showed me a place on her right blair from where a dog had scratched her and she actually saw wound care as an outpatient for this wound. She denies diabetes, and she reports that she is a former smoker. Hospital Course Hospital Course Hospital Course: On my exam patient is resting comfortably in her hospital bed with no distress.? Baseball sized wound to the left lower extremity with possible necrosis of center.? Surrounding erythema noted.? Patient does have chronic varicosities of her bilateral lower extremities.? On my exam skin is cool to touch with a bluish color.? Pulses are intact and palpable.? Patient states that she has had some type of procedure done but it did not take to her left lower extremity.? She is unsure if she has had ultrasounds of her lower extremities to evaluate for PAD.? She reports the discoloration, varicosities and coldness is chronic. ?Wound of left lower extremity ?surgery consulted, appreciate recommendations. Evaluated patient in the morning. No surgical intervention. Recommend outpatient wound care management. At this time there is no signs of infection, no indication to initiate systemic antibiotics, especially in light of patient's significant antibiotic allergies and concern for increased risk of side effect over benefit. PT evaluated, clean dressing placed. We will of case management assist with scheduling for outpatient wound care management in the coming days. Would benefit from formal lower extremity scans to evaluate peripheral artery disease. Dressing in place to stay on for up to 7 days. Wound care as outpatient will give further direction on changing dressing and use of Santyl cream to aid in debridement and healing. ?HLD, chronic ?continue home atorvastatin. resume home Xarelto at discharge. ?hypertension ?continue bisoprolol ?chronic obstructive pulmonary disease ?stable, continue home bronchodilators Stable for discharge home. Plan for outpatient wound care. Exam Data for Last 24 hours Vital signs and Labs for Last 24 Hours: Temp Pulse Resp BP Pulse Ox 97.7 F 68 17 11
--- NOTE | 2022-04-29 14:46 | PC.NURSE ---
SPOKE WITH PT ABOUT F/U WITH CARE MANAGEMENT TO SET UP TIME FOR WOUND CARE APPOINTMENT.
--- NOTE | 2022-04-30 14:36 | CARE MANAGER ---
Spoke with patient to set up outpatient PT appointment, patient states that she has an appointment today with her primary care doctor to set up the PT. I did tell the patient if she has trouble getting set up to call me back. No other issues noted.
== END 2022-04-29 15:10 | disposition home or self-care (01) ==
LOC: UTC 16:35 → ER 16:44 → 2ND 18:50
PROVIDERS: Admitting Provider Internal Medicine Adolescent Medicine; Emergency Provider Emergency Medicine; PCP Nurse Practitioner Family; Visit Provider Internal Medicine Adolescent Medicine
DX: S80.12XA Contusion of left lower leg, initial encounter (principal); E78.5 Hyperlipidemia, unspecified; I10 Essential (primary) hypertension; J44.9 Chronic obstructive pulmonary disease, unspecified; Z79.01 Long term (current) use of anticoagulants; Z79.899 Other long term (current) drug therapy; F17.210 Nicotine dependence, cigarettes, uncomplicated; X58.XXXA Exposure to other specified factors, initial encounter; Z20.822 Contact with and (suspected) exposure to COVID-19
CPT/HCPCS: G0378; 36415; 80053; 83605; 83735; 85025; 85651; 86140; 87040; 87070; 87077; 87186; 87205; 99285; C9803; U0003; U0005

== ENCOUNTER → 2022-04-30 14:17 | Outpatient (CLI) | payer MEDICARE, OTHER, SELFPAY ==
[2022-04-30 15:43] LABS: Alanine Aminotransferase 19 U/L (12-78); Albumin Level 4.2 g/dl (3.5-5.0); Alkaline Phosphatase 134 U/L (38-126); Anion Gap 2.5 mEq/L (5-15); Aspartate Amino Transferase 31 U/L (14-36); Bilirubin,Direct 0.3 mg/dl (0.0-0.4); Bilirubin,Indirect 0.1 mg/dL (0.0-0.9); Bilirubin,Total 0.4 mg/dl (0.2-1.3); Bilirubin,Unconjugated 0.1 mg/dL (0.0-1.1); Blood Urea Nitrogen 16 mg/dl (7-17); Calcium 8.8 mg/dl (8.4-10.2); Carbon Dioxide 35 mmol/L (22.0-30.0); Chloride 106 mmol/L (98-107); Chol/HDL Ratio 2.6 (1-3.5); Cholesterol 136 mg/dl (140-200); Estimated Glomerular Filt Rate 63 ml/min (>60); GFR (African American) 76 ML/MIN (>60); Glucose 88 mg/dl (74-100); HDL Cholesterol 52 mg/dl (40-60); Potassium 4.5 mmoL/L (3.5-5.1); Sodium 139 mmol/L (136-145); Total Protein,Serum 6.7 g/dl (6.3-8.2); Triglycerides 112 mg/dl (30-150); VLDL Cholesterol 22 mg/dL (0-40)
[2022-04-30 15:54] LABS: Direct LDL Cholesterol 63.11 mg/dL (100-129)
== END ==
PROVIDERS: PCP Nurse Practitioner Family; Visit Provider Internal Medicine Interventional Cardiology
DX: E78.00 Pure hypercholesterolemia, unspecified (principal)
CPT/HCPCS: 36415; 80048; 80061; 80076

== ENCOUNTER 2022-05-11 11:34 | Inpatient (IN) | payer MEDICARE, OTHER, SELFPAY ==
[2022-05-11] VITALS (8 sets, daily range): BP systolic 106–134; BP diastolic 58–78; PULSE 79–94; RESP 20–38; TEMP 36.5–37; O2SAT 82–94; BMI 31.6; BMI 31.9
--- NOTE | 2022-05-11 11:42 | ECG_ITS ---
APPROVED REPORT Exam: Resting ECG HR:92 bpm ECG Measurements Heart Rate 92 AXES SC 149 P 71 QRSd 94 QRS 62 QT 359 T 52 QTc 408 Conclusion SINUS RHYTHM POSSIBLE RIGHT VENTRICULAR CONDUCTION DELAY [RSR (QR) IN V1/V2] ST DEVIATION AND MODERATE T-WAVE ABNORMALITY, CONSIDER ANTERIOR ISCHEMIA [-0.1+ mV T-WAVE IN V3/V4] ABNORMAL ECG UNCONFIRMED REPORT Electronically signed by : Adryan Cooper MD 05/11/2022 15:49:11
--- NOTE | 2022-05-11 11:43 | HMH.EDGENADL ---
Discharge Plan Disposition Patient Disposition: Admitted As Inpatient Condition: Fair Prescriptions Prescriptions: No Action levocetirizine 5 mg tablet 5 mg PO HS venlafaxine 150 mg tablet extended release 24hr 300 mg PO DAILY albuterol sulfate [Ventolin HFA] 90 mcg/actuation HFA aerosol inhaler 1 inh INHALATION QIDP PRN (Reason: Shortness Of Breath) Xarelto 15 mg tablet 15 mg PO DAILY Rx Instructions: must administer with evening meal spironolactone 25 MG tablet 25 mg PO DAILY bisoprolol fumarate 5 MG tablet 5 mg PO DAILY tizanidine 2 MG tablet 4 mg PO BIDP PRN (Reason: Muscle Spasm) pantoprazole 40 mg tablet,delayed release (DR/EC) 40 mg PO DAILY budesonide-formoterol [Symbicort] 160-4.5 mcg/actuation HFA aerosol inhaler 2 puff INHALATION BID Santyl 250 unit/gram Ointment 1 applic topical BID 10 Days Qty: 0 0RF montelukast 10 MG tablet 10 mg PO PM pramipexole 1.5 MG tablet 1.5 mg PO TID Referrals Follow up/Referrals: Sandra Orozco APRN [Primary Care Provider] - See instructions Clinical Impressions Clinical Impression: Community acquired pneumonia, Acute and chronic respiratory failure with hypoxia, Acute exacerbation of chronic obstructive pulmonary disease Discharge ED Provider: Michele Martinez General Adult HPI General Chief complaint: Shortness of Breath/Dyspnea Stated complaint: soa, chest congestion, cough Time Seen by Provider: 05/11/22 11:45 History of Present Illness HPI narrative: Patient states she has been sick since about Saturday. She has increased shortness of breath and wheezing, nonproductive cough. She saw her primary care provider on Saturday or Saturday and states she was started on antibiotics and steroids. She says she was prescribed 60 mg of prednisone but she can only tolerate 20 mg per dose. She has been doing that 1-2 times per day. She says if she takes more she turns very flushed and red in the face. She denies fever. Denies chest pain. Denies rhinorrhea or sore throat. Denies any specific exposure to any illnesses. States she was tested for flu and COVID at her primary care provider's office visit and was negative. She is a former smoker, quit in February 2022. She has COPD and is on oxygen at home, typically only at night, but because of her increased shortness of breath with this illness has been using it during the day as well and has increased her FiO2 from 2 L to 3 L. Related Data Home Medications Medication Instructions Recorded Confirmed levocetirizine 5 mg tablet 5 mg PO HS Allergy symptoms 07/30/17 04/28/22 venlafaxine 150 mg tablet,extended 300 mg PO DAILY Depression 07/30/17 04/28/22 release 24 hr spironolactone 25 mg tablet 25 mg PO DAILY Fluid 10/15/18 04/28/22 montelukast 10 mg tablet 10 mg PO PM ALLERGIES 04/23/19 04/29/22 rivaroxaban 15 mg tablet (Xarelto) 15 mg PO DAILY Blood thinner 12/29/19 04/28/22 albuterol sulfate 90 mcg/actuation 1 inh inhalation QIDP PRN 08/10/20 04/29/22 aerosol inhaler (Ventolin HFA) Shortness Of Breath bisoprolol fumarate 5 mg tablet 5 mg PO DAILY Hypertension 11/02/20 04/28/22 pramipexole 1.5 mg tablet 1.5 mg PO TID parkinsons disease 03/08/21 04/29/22 tizanidine 2 mg tablet 4 mg PO BIDP PRN Muscle Spasm 05/10/21 04/29/22 budesonide-formoterol HFA 160 2 puff inhalation BID Breathing 04/29/22 04/29/22 mcg-4.5 mcg/actuation aerosol problems inhaler (Symbicort) pantoprazole 40 mg tablet,delayed 40 mg PO DAILY GERD 04/29/22 04/29/22 release Previous Rx's Medication Instructions Recorded collagenase clostridium histo. 250 1 applic topical BID 10 days #0 04/29/22 unit/gram topical ointment (Santyl) grams Allergies Allergy/AdvReac Type Severity Reaction Status Date / Time celecoxib [From Celebrex] Allergy Severe RECTAL Verified 03/07/21 16:03 BLEEDING leflunomide Allergy Severe T-[id number]-FJKU/THROAT,TINGLING Verified 03/07/21 16
--- NOTE | 2022-05-11 11:50 | XR_ITS ---
FINAL REPORT CLINICAL HISTORY: soa, cough COMPARISON: 05/12/2021 FINDINGS: A single PA view of the chest was obtained. There is no prior exam for comparison. The cardiac and mediastinal silhouettes are within normal limits. There are bibasilar opacities which are new from the prior exam and could represent atelectasis or pneumonia. There is no effusion or pneumothorax. No acute osseous abnormality is identified. IMPRESSION: Bibasilar opacities could represent atelectasis or pneumonia. Reviewed, Interpreted and Dictated by Priya Villalobos MD Transcribed by Noreen Gomes Authenticated and [facility]
--- NOTE | 2022-05-11 11:52 | PC.NURSE ---
MD notified of Respiratory Distress. MD to bedside. RT phoned for VO continuous neb. Pharm phoned for Mg 1gm IV order.
--- NOTE | 2022-05-11 12:05 | PC.NURSE ---
Warm blanket provided. RT at bedside. Pt updated on plan of care. Meds administered.
[2022-05-11 12:08] LABS: Coronavirus 19, PCR Not Detected (NotDetected); Influenza A, PCR Not Detected (NotDetected); Influenza B, PCR Not Detected (NotDetected)
[2022-05-11 12:09] LABS: Basophils # 0.1 K/mm3 (0-0.2); Basophils % 1.7 % (0.1-2.0); Eosinophils # 0.1 K/mm3 (0.0-0.4); Eosinophils % 0.8 % (0.1-12.0); Hematocrit 46.4 % (37.0-47.0); Hemoglobin 14.5 g/dL (12.2-16.2); Lymphocytes % 12.8 % (10-50); Mean Corpuscular HGB Conc 31.3 g/dL (31.8-35.4); Mean Corpuscular Hemoglobin 28.2 pg (27.0-31.2); Mean Corpuscular Volume 90.2 fl (81-99); Monocytes # 0.2 K/mm3 (0.1-1.0); Neutrophils # 6.5 K/mm3 (1.8-7.8); Neutrophils % 82.7 % (37.0-80.0); Platelet Count 236 K/mm3 (142-424); Red Blood Count 5.14 M/mm3 (4.20-5.40); Red Cell Distribution Width 15.3 % (11.5-17.5); White Blood Count 7.9 K/mm3 (4.8-10.8)
[2022-05-11 12:13] LABS: Chloride 103 mmol/L (98-107); Potassium 3.5 mmoL/L (3.5-5.1); Sodium 140 mmol/L (136-145)
[2022-05-11 12:15] LABS: Alanine Aminotransferase 29 U/L (12-78); Aspartate Amino Transferase 43 U/L (14-36); Blood Urea Nitrogen 19 mg/dl (7-17); Creatinine Clearance Estimated 66 mL/min (50-200); Estimated Glomerular Filt Rate 63 ml/min (>60); GFR (African American) 76 ML/MIN (>60)
[2022-05-11 12:16] LABS: Albumin Level 4.3 g/dl (3.5-5.0); Albumin/Globulin Ratio 1.3 (1.1-1.8); Alkaline Phosphatase 154 U/L (38-126); Anion Gap 11.5 mEq/L (5-15); Bilirubin,Total 0.3 mg/dl (0.2-1.3); Calcium 8.2 mg/dl (8.4-10.2); Carbon Dioxide 29 mmol/L (22.0-30.0); Globulin 3.2 g/dL (1.3-3.2); Glucose 142 mg/dl (74-100); Lactic Acid 2.5 mmol/L (0.7-2.1); Total Protein,Serum 7.5 g/dl (6.3-8.2)
--- NOTE | 2022-05-11 12:36 | PC.NURSE ---
RT notified of need for ABG
--- NOTE | 2022-05-11 13:28 | PC.NURSE ---
KALYANI ABRAMS at reassessing pt
--- NOTE | 2022-05-11 13:40 | PC.NURSE ---
Spoke with Care Management for admission accepted by hospitalist. Admitting dx Pne, COPD exacerbation, & hypoxia.
[2022-05-11 13:41] LABS: ABG Base Excess 1.6 mmol/L (-2.4-2.3); ABG HCO3 26.8 mmhg (22.0-26.0); ABG Oxygen Saturation 87 % (90-100); ABG PCO2 47.5 mmhg (35.0-45.0); ABG PH 7.37 mmol/L (7.35-7.45); ABG PO2 51.9 mmhg (80-100); ABG TCO2 28.3 mmhg (23-27)
[2022-05-11 13:42] LABS: Allen's Test ACCEPTABLE; Oxygen 3 LPM %; Source Right Radial
--- NOTE | 2022-05-11 13:50 | PC.NURSE ---
Pt resting at this time. Provided peanut butter/crackers per patients request. Slight improvement.
--- NOTE | 2022-05-11 14:06 | CT_ITS ---
FINAL REPORT TECHNIQUE: Thin section axial images were obtained from the lung apices through the upper abdomen without contrast. This study was performed with techniques to keep radiation doses as low as reasonably achievable (ALARA). Individualized dose reduction techniques using automated exposure control or adjustment of mA and/or kV according to the patient's size were employed. CLINICAL HISTORY: Smoker, COPD, Hypoxia COMPARISON: 03/26/2019 FINDINGS: There is no mediastinal, hilar, or axillary lymphadenopathy. There is no pleural or pericardial effusion. There is evidence of old granulomatous disease. There are new, faint right greater than left nodular opacities in the lower lobes, pneumonia is not excluded. There are changes of emphysema. The lungs are otherwise clear. Limited images of the upper abdomen reveal a tiny lesion in the left lobe of the liver which is stable, likely a cyst. There is no acute osseous abnormality. IMPRESSION: New, faint reticular opacities in the right greater than left lower lobes, may represent bronchopneumonia. Short term follow-up is recommended. Reviewed, Interpreted and Dictated by Priya Villalobos MD Transcribed by Deidre South Authenticated and [facility]
--- NOTE | 2022-05-11 14:25 | PC.NURSE ---
contacted [facility] worker to check on bed status, states she is calling now to registration
--- NOTE | 2022-05-11 14:28 | EXP.HP ---
History of Present Illness *Admission Date: 05/11/22 *Reason for visit:: Chief complaint: Shortness of air *History of present illness: This is a 62-year-old female who presents to [facility] emergency department with concerns of shortness of air. She reports several days of dyspnea that have gotten worse with exertion. She identifies a croupy cough that is nonproductive. She went to see her PCP earlier in the week and was prescribed medications with no improvement in her symptomatology. Today she identified ongoing shortness of air that was worse with ambulation and then occurring at rest. She denied associated retrosternal chest pain, palpitations, confusion or hallucinations. She has not identified any fever but reports subjective chills. She denies associated hemoptysis, pedal edema or nausea vomiting and diarrhea. She has been using her home nebulizer therapy and O2 with no relief of her symptomatology. In the ED her room air oxygen saturation was 82% and improved with supplemental oxygen at 3 L. Her labs identified a mildly elevated lactic acid with a normal white blood cell count normal electrolytes and creatinine. Her chest x-ray was concerning for atelectasis and early pneumonia. Blood cultures were acquired and she was started on IV antibiotic therapy. She reports her CPAP machine has been recalled and she has been unable to wear it. [facility] Medical History (Updated 05/11/22 @ 14:50 by Maurizio Lopez MD) Anxiety Degenerative disc disease Depression Fibromyalgia History of transient ischemic attack (TIA) HLD (hyperlipidemia) HTN (hypertension) Irritable bowel syndrome (IBS) Restless leg syndrome Sleep apnea Spinal stenosis Tobacco abuse Surgical History (Updated 05/11/22 @ 14:52 by Maurizio Lopez MD) History of cataract surgery History of partial hysterectomy History of removal of both ovaries History of tonsillectomy Hx of cholecystectomy Previous back surgery Family History (Updated 05/11/22 @ 14:51 by Maurizio Lopez MD) Father Hypertension Coronary artery disease Mother Pancreatic cancer Social History Smoking Status: Former smoker years smoked: 45 smoking status stop date: 2 months ago second hand exposure: Yes alcohol intake: former substance use type: denies use current occupational status: disabled Travel in the last 8 weeks: Inside the [place] household members: none housing: house current occupational exposures/hazards: No caffeine: Yes Review of Systems Review of Systems Review of systems:: pertinent systems reviewed and negative unless documented below Constitutional Constitutional: Denies headache(s) and Denies weakness ENT Ears, Nose, Mouth, and Throat: Denies headache(s) *Cardiovascular Cardiovascular: Denies chest pain, Denies chest pain at rest, Reports dyspnea, Reports dyspnea on exertion, Denies orthopnea, Denies palpitations, Denies pedal edema and Denies rapid heart rate *Respiratory Respiratory: Reports cough, Reports dyspnea, Reports dyspnea on exertion, Denies excessive phlegm production, Denies hemoptysis and Denies pain on inspiration *Gastrointestinal Gastrointestinal: Denies loose stools, Denies nausea and Denies vomiting *Musculoskeletal Musculoskeletal: Denies numbness *Neurologic Neurologic: Denies headache(s), Denies numbness and Denies weakness Endocrine Endocrine: Denies palpitations Meds Home Medications and Allergies Home Medications Medication Instructions Recorded Confirmed Type levocetirizine 5 mg tablet 5 mg PO HS Allergy symptoms 07/30/17 04/28/22 History venlafaxine 150 mg tablet,extended 300 mg PO DAILY Depression 07/30/17 04/28/22 History release 24 hr spironolactone 25 mg tablet 25 mg PO DAILY Fluid 10/15/18 04/28/22 History montelukast 10 mg tablet 10 mg PO PM ALLERGIES 04/23/19 04/29/22 History rivaroxaban 15 mg tablet (Xarelto) 15
--- NOTE | 2022-05-11 14:34 | PC.NURSE ---
Attempted report x 1
--- NOTE | 2022-05-11 14:56 | PC.NURSE ---
Attempted report x 2
--- NOTE | 2022-05-11 15:00 | PC.NURSE ---
Report provided to BERNICE Schumacher
--- NOTE | 2022-05-11 15:07 | PC.NURSE ---
Pt updated on plan of care. Report provided. Personal belongings placed in bag.
--- NOTE | 2022-05-11 15:07 | PC.NURSE ---
Wound noted to LLE. Inpatient RN informed. Pt sees wound care for management.
--- NOTE | 2022-05-11 15:25 | PC.NURSE ---
arrived by w/c from ED
[2022-05-11 16:05] LABS: Reflex Lactic Add Lactic Reflex
--- NOTE | 2022-05-11 16:31 | PC.WOUNDNOTE ---
LACERATION NOTED TO OUTSIDE OF LEFT LEG. BEING TREATED BY WOUND CARE. COLLAGEN FILM IN PLACE.
[2022-05-11 16:36] LABS: Lactic Acid Follow Up (RFLX 1) 3.4 mmol/L (0.7-2.1)
[2022-05-11 18:24] LABS: Reflex Lactic (2 hrs) Add Lactic Reflex
[2022-05-11 19:20] LABS: Lactic Acid Follow up (RFLX 2) 2.4 mmol/L (0.7-2.1)
--- NOTE | 2022-05-11 19:38 | PC.NURSE ---
A&OX4. TOLERATING 3LNC WELL. UP INDEPENDENTLY IN ROOM, NO NEEDS OR C/O NOTED SINCE ARRIVAL TO FLOOR. VSS.
[2022-05-12] VITALS (10 sets, daily range): BP systolic 118–146; BP diastolic 65–75; PULSE 70–84; RESP 14–20; TEMP 36.4–37; O2SAT 93–100; BMI 32.5
--- NOTE | 2022-05-12 03:52 | PC.NURSE ---
Pt has had no complaints this shift. Remains on 3L NC, tolerating well. LS diminished. Pt has ambulated to BR with standby assist, gets SOA with exertion.
[2022-05-12 07:05] LABS: Alanine Aminotransferase 27 U/L (12-78); Albumin Level 3.4 g/dl (3.5-5.0); Albumin/Globulin Ratio 1.4 (1.1-1.8); Alkaline Phosphatase 125 U/L (38-126); Anion Gap 6.8 mEq/L (5-15); Aspartate Amino Transferase 41 U/L (14-36); Bilirubin,Total 0.3 mg/dl (0.2-1.3); Blood Urea Nitrogen 14 mg/dl (7-17); Calcium 7.4 mg/dl (8.4-10.2); Carbon Dioxide 29 mmol/L (22.0-30.0); Chloride 105 mmol/L (98-107); Creatinine Clearance Estimated 68 mL/min (50-200); Estimated Glomerular Filt Rate 84 ml/min (>60); GFR (African American) 102 ML/MIN (>60); Globulin 2.4 g/dL (1.3-3.2); Glucose 106 mg/dl (74-100); Magnesium 2.6 mg/dl (1.6-2.3); Potassium 3.8 mmoL/L (3.5-5.1); Sodium 137 mmol/L (136-145); Total Protein,Serum 5.8 g/dl (6.3-8.2)
[2022-05-12 07:14] LABS: NT Pro Brain Natriuretic Pep. 652 pg/mL (0-125)
[2022-05-12 07:17] LABS: Lactic Acid 1.8 mmol/L (0.7-2.1)
[2022-05-12 07:21] LABS: Procalcitonin 0.041 ng/mL (0.0-2.0)
[2022-05-12 08:41] LABS: Basophils # 0.1 K/mm3 (0-0.2); Basophils % 0.6 % (0.1-2.0); Eosinophils % 0.2 % (0.1-12.0); Hematocrit 39.6 % (37.0-47.0); Lymphocytes # 1.4 K/mm3 (0.7-4.5); Mean Corpuscular HGB Conc 31.7 g/dL (31.8-35.4); Mean Corpuscular Hemoglobin 28.2 pg (27.0-31.2); Mean Corpuscular Volume 88.9 fl (81-99); Mean Platelet Volume 7.9 fl (7.4-10.4); Monocytes # 0.5 K/mm3 (0.1-1.0); Monocytes % 4.8 % (1.7-9.3); Neutrophils # 7.5 K/mm3 (1.8-7.8); Neutrophils % 79.5 % (37.0-80.0); Platelet Count 230 K/mm3 (142-424); Red Blood Count 4.46 M/mm3 (4.20-5.40); Red Cell Distribution Width 15.3 % (11.5-17.5); White Blood Count 9.4 K/mm3 (4.8-10.8)
[2022-05-12 09:08] LABS: Hemoglobin 12.7 g/dL (12.2-16.2)
--- NOTE | 2022-05-12 16:29 | EXP.PN ---
Subjective *Date: 05/12/22 *Time: 16:29 Interval history: Date of service May 12, 2022 The patient reports that she is breathing better. Nursing staff report that she remains afebrile with stable vital signs and saturating appropriately on 3 L of oxygen via nasal cannula. Exam Data for Last 24 hours Vital signs and Labs for Last 24 Hours: Temp Pulse Resp BP Pulse Ox 98.6 F 84 18 128/75 96 05/12/22 15:27 05/12/22 15:27 05/12/22 15:27 05/12/22 15:27 05/12/22 15:27 Laboratory Results - last 24 hr 05/11/22 16:14: Lactate 3.4 H 05/11/22 18:38: Lactate 2.4 H 05/12/22 06:40: WBC 9.4, RBC 4.46, Hgb 12.7 D, Hct 39.6, MCV 88.9, MCH 28.2, MCHC 31.7 L, RDW 15.3, Plt Count 230, MPV 7.9, Neut % (Auto) 79.5, Lymph % (Auto) 15.0, [place] % (Auto) 4.8, Eos % (Auto) 0.2, Baso % (Auto) 0.6, Neut # (Auto) 7.5, Lymph # (Auto) 1.4, [place] # (Auto) 0.5, Eos # (Auto) 0.0, Baso # (Auto) 0.1 05/12/22 06:40: Sodium 137, Potassium 3.8, Chloride 105, Carbon Dioxide 29, Anion Gap 6.8, BUN 14 D, Creatinine 0.70 D, Estimated Creat Clear 68, Estimated GFR 84, Est GFR ( Amer) 102 D, Glucose 106 H D, Calcium 7.4 L, Magnesium 2.6 H, Total Bilirubin 0.3, AST 41 H, ALT 27, Alkaline Phosphatase 125, NT-Pro-B Natriuret Pep 652 H, Total Protein 5.8 L, Albumin 3.4 L D, Globulin 2.4, Albumin/Globulin Ratio 1.4, Procalcitonin 0.041 05/12/22 06:40: Lactate 1.8 I & O for Last 24 hours: Intake & Output 05/09/22 05/10/22 05/11/22 05/12/22 23:59 23:59 23:59 23:59 Intake Total 240 / 240 1353 / 1353 Output Total 0 / 0 0 / 0 Balance 240 / 240 1353 / 1353 Weight 74.162 kg 75.353 kg Microbiology Reports for the Last 24 Hours: Microbiology 05/12/22 13:10 Sputum - Expectorated Sputum Gram Stain - Final Constitutional Constitutional: no acute distress, obese and cooperative *Routine HEENT Exam Head: Present normocephalic Eye: Present EOMI and PERRL ENT: Present mucous membranes moist *Routine Neck Exam Neck: Present supple; Absent lymphadenopathy *Routine Respiratory Exam Respiratory: Present rhonchi, normal respiratory effort and symmetric chest movement *Routine Cardiovascular Exam Cardiovascular: Present RRR *Routine Abdominal Exam Abdominal: Present soft and normoactive bowel sounds; Absent tenderness *Routine Extremities Exam Extremities: Present full ROM, pulses intact and normal capillary refill; Absent cyanosis, clubbing or edema *Routine Skin Exam Skin: Present warm; Absent rash *Routine Neurological Exam Neurological: Present alert, oriented X3, moving all extremities, vision grossly intact, hearing grossly intact and normal speech; Absent sensory deficit or motor deficit Routine Psychiatric Exam Psychiatric: Present normal affect, normal thought process, cooperative, good insight and good judgment Assessment and Plan *Assessment and plan (1) Acute and chronic respiratory failure with hypoxia: Status: Acute Category: Medical Code(s): J96.21 - Acute and chronic respiratory failure with hypoxia (2) Community acquired pneumonia: Status: Acute Category: Medical Code(s): J18.9 - Pneumonia, unspecified organism (3) HTN (hypertension): Status: Chronic Qualifiers: Hypertension type: essential hypertension Qualified Code(s): I10 - Essential (primary) hypertension Category: Medical Code(s): I10 - Essential (primary) hypertension (4) Tobacco abuse: Status: Acute Category: Medical Code(s): Z72.0 - Tobacco use Plan 62-year-old female who presents to the emergency department with concerns of shortness of air. She reports noncompliance with her nightly positive pressure ventilation secondary to device recall. She reached out to her PCP and was prescribed therapy that is not improving her symptomatology. She reports her last pulmonology evaluation is over 2 years ago and does not know her FEV1. She describes a significant smoking histor
[2022-05-13] VITALS (7 sets, daily range): BP systolic 113–144; BP diastolic 65–76; PULSE 73–86; RESP 17–22; TEMP 36.4–37.1; O2SAT 92–99; BMI 32.5
--- NOTE | 2022-05-13 04:24 | PC.NURSE ---
no changes since previous assessment
--- NOTE | 2022-05-13 12:31 | EXP.DC.SUM ---
General Admission date:: 05/11/22 Discharge date: 05/13/22 HPI HPI HPI: This is a 62-year-old female who presents to [facility] emergency department with concerns of shortness of air. She reports several days of dyspnea that have gotten worse with exertion. She identifies a croupy cough that is nonproductive. She went to see her PCP earlier in the week and was prescribed medications with no improvement in her symptomatology. Today she identified ongoing shortness of air that was worse with ambulation and then occurring at rest. She denied associated retrosternal chest pain, palpitations, confusion or hallucinations. She has not identified any fever but reports subjective chills. She denies associated hemoptysis, pedal edema or nausea vomiting and diarrhea. She has been using her home nebulizer therapy and O2 with no relief of her symptomatology. In the ED her room air oxygen saturation was 82% and improved with supplemental oxygen at 3 L. Her labs identified a mildly elevated lactic acid with a normal white blood cell count normal electrolytes and creatinine. Her chest x-ray was concerning for atelectasis and early pneumonia. Blood cultures were acquired and she was started on IV antibiotic therapy. She reports her CPAP machine has been recalled and she has been unable to wear it. Hospital Course Hospital Course Hospital Course: The patient is admitted to the medical unit with pulse oximetry monitoring and oxygen supplementation. Blood and sputum cultures are acquired. She is started on broad-spectrum IV antibiotic therapy. Her labs and inflammatory markers are trended and identify improved and stable results. Her blood cultures are no growth to date. She was maintained on inhalation therapy and she identified improvement. She inquired about discharge home. She will be discharged with a short course of antibiotic therapy. She will continue with her home inhalation therapy and oxygen therapy. She quit smoking in February she is encouraged to continue to abstain. I have recommended a follow-up visit with her PCP in 1 week and then dry talc racker in 2 weeks. Exam Data for Last 24 hours Vital signs and Labs for Last 24 Hours: Temp Pulse Resp BP Pulse Ox FiO2 98.7 F 86 19 135/76 96 32 05/13/22 11:08 05/13/22 11:08 05/13/22 11:08 05/13/22 11:08 05/13/22 11:08 05/12/22 20:02 I & O for Last 24 hours: Intake & Output 05/10/22 05/11/22 05/12/22 05/13/22 23:59 23:59 23:59 23:59 Intake Total 240 / 240 1593 / 1593 120 / 120 Output Total 0 / 0 0 / 0 0 / 0 Balance 240 / 240 1593 / 1593 120 / 120 Weight 74.162 kg 75.353 kg 75.041 kg Microbiology Reports for the Last 24 Hours: Microbiology 05/11/22 11:57 Blood Blood Culture - Preliminary NO GROWTH AFTER 48 HOURS 05/11/22 11:57 Blood Blood Culture - Preliminary NO GROWTH AFTER 48 HOURS 05/12/22 13:10 Sputum - Expectorated Sputum Gram Stain - Final Constitutional Constitutional: no acute distress, obese and cooperative *Routine HEENT Exam Head: Present normocephalic Eye: Present EOMI and PERRL ENT: Present mucous membranes moist *Routine Neck Exam Neck: Present supple; Absent lymphadenopathy *Routine Respiratory Exam Respiratory: Present rhonchi, normal respiratory effort and symmetric chest movement *Routine Cardiovascular Exam Cardiovascular: Present RRR *Routine Abdominal Exam Abdominal: Present soft and normoactive bowel sounds; Absent tenderness *Routine Extremities Exam Extremities: Present full ROM, pulses intact and normal capillary refill; Absent cyanosis, clubbing or edema *Routine Skin Exam Skin: Present warm; Absent rash *Routine Neurological Exam Neurological: Present alert, oriented X3, moving all extremities, vision grossly intact, hearing grossly intact and normal speech; Absent sensory deficit or motor deficit Routine Psychiatric Exam Psychiatric:
--- NOTE | 2022-05-13 13:31 | PC.NURSE ---
pt currently 92% on RA. Has o2 if needed @ home.
--- NOTE | 2022-05-13 14:23 | PC.NURSE ---
pt has been discahrged form the unit. Bison all belongigns with her and voiced understanding of all dc education and follow up appts. Pt has been tolerating room air and has maintained saturation between 92-94%.
--- NOTE | 2022-05-14 14:09 | CARE MANAGER ---
Attempted post-discharge phone interview, no answer.
--- NOTE | 2022-05-15 14:52 | CARE MANAGER ---
Called patient to discuss recent discharge. Patient stated that her PCP just called her today to change her Abx r/t culture results. She plans to berry picker new prescription today and attend f/u appt on Saturday.
== END 2022-05-13 14:24 | disposition home or self-care (01) | DRG 177 ==
LOC: ER 12:53 → 2ND 14:52
PROVIDERS: Admitting Provider Family Medicine; Emergency Provider Emergency Medicine; PCP Nurse Practitioner Family; Visit Provider Family Medicine
DX: J15.1 Pneumonia due to Pseudomonas (principal); J96.21 Acute and chronic respiratory failure with hypoxia; J44.1 Chronic obstructive pulmonary disease with (acute) exacerbation; Z99.81 Dependence on supplemental oxygen; F32.A Depression, unspecified; M79.7 Fibromyalgia; G25.81 Restless legs syndrome; M06.9 Rheumatoid arthritis, unspecified; Z87.891 Personal history of nicotine dependence
CPT/HCPCS: 36415; 71045; 71250; 80053; 82803; 83605; 83735; 83880; 84145; 85025; 87040; 87070; 87077; 87186; 87205; 93005; 94640; 94761; 97140; 97597; 99285; C9803; J0456; J0696; U0003; U0005

== ENCOUNTER 2022-05-16 13:56 | Outpatient (CLI) | payer MEDICARE, OTHER, SELFPAY ==
[2022-05-16 14:02] VITALS: BP 117/63; PULSE 63; RESP 18; TEMP 36.2; O2SAT 95
== END 2022-05-16 14:27 | disposition home or self-care (01) ==
LOC: INF 13:56
PROVIDERS: PCP Nurse Practitioner Family; Visit Provider Nurse Practitioner Family
DX: M85.89 Other specified disorders of bone density and structure, multiple sites (principal)
CPT/HCPCS: 96372; J0897

== ENCOUNTER 2022-06-06 10:30 | Outpatient (RCR) | payer MEDICARE, OTHER, SELFPAY | END 2022-06-06 10:35 | disposition home or self-care (01) | LOC: PT 10:30 | PROVIDERS: PCP Nurse Practitioner Family; Visit Provider Nurse Practitioner Family | DX: S80.12XD Contusion of left lower leg, subsequent encounter (principal) | CPT/HCPCS: 97140; 97162; 97164; 97597; 97606 ==

== ENCOUNTER → 2022-08-16 17:04 | Outpatient (CLI) | payer MEDICARE, OTHER, SELFPAY ==
[2022-08-16 17:44] LABS: Basophils # 0.1 K/mm3 (0-0.2); Basophils % 0.7 % (0.1-2.0); Eosinophils # 0.1 K/mm3 (0.0-0.4); Eosinophils % 1.7 % (0.1-12.0); Hematocrit 41.1 % (37.0-47.0); Hemoglobin 12.6 g/dL (12.2-16.2); Lymphocytes % 30.4 % (10-50); Mean Corpuscular HGB Conc 30.7 g/dL (31.8-35.4); Mean Corpuscular Hemoglobin 25.8 pg (27.0-31.2); Mean Corpuscular Volume 84.1 fl (81-99); Monocytes # 0.3 K/mm3 (0.1-1.0); Monocytes % 4.9 % (1.7-9.3); Neutrophils # 4.2 K/mm3 (1.8-7.8); Neutrophils % 62.4 % (37.0-80.0); Platelet Count 216 K/mm3 (142-424); Red Blood Count 4.89 M/mm3 (4.20-5.40); Red Cell Distribution Width 15.6 % (11.5-17.5); White Blood Count 6.7 K/mm3 (4.8-10.8)
[2022-08-16 18:19] LABS: Chloride 103 mmol/L (98-107); Sodium 140 mmol/L (136-145)
[2022-08-16 18:21] LABS: Amylase 47 U/L (30-110)
[2022-08-16 18:22] LABS: Alanine Aminotransferase 21 U/L (12-78); Albumin Level 4.1 g/dl (3.5-5.0); Albumin/Globulin Ratio 1.6 (1.1-1.8); Alkaline Phosphatase 128 U/L (38-126); Aspartate Amino Transferase 36 U/L (14-36); Blood Urea Nitrogen 21 mg/dl (7-17); Calcium 8.5 mg/dl (8.4-10.2); Carbon Dioxide 31 mmol/L (22.0-30.0); Estimated Glomerular Filt Rate 63 ml/min (>60); GFR (African American) 76 ML/MIN (>60); Globulin 2.6 g/dL (1.3-3.2); Glucose 93 mg/dl (74-100); Lipase 92 U/L (23-300); Total Protein,Serum 6.7 g/dl (6.3-8.2)
[2022-08-16 18:28] LABS: Bilirubin,Total < 0.1 mg/dl (0.2-1.3)
== END ==
PROVIDERS: PCP Nurse Practitioner Family; Visit Provider Nurse Practitioner Family
DX: R10.10 Upper abdominal pain, unspecified (principal); R11.0 Nausea
CPT/HCPCS: 36415; 80053; 82150; 83690; 85025

== ENCOUNTER → 2022-10-02 16:21 | Outpatient (CLI) | payer MEDICARE, OTHER, SELFPAY ==
--- NOTE | 2022-10-02 16:33 | XR_ITS ---
PROCEDURE INFORMATION: Exam: XR Chest Exam date and time: 10/02/2022 4:37 PM Age: 62 years old Clinical indication: Shortness of breath; Additional info: Copd, shortness of breath TECHNIQUE: Imaging protocol: Radiologic exam of the chest. Views: 2 views. COMPARISON: 1. CT CHEST WO CON 05/11/2022 2:43 PM; 2. CR XR CHEST PORTABLE 05/11/2022 12:10 PM FINDINGS: Lungs: Mild subsegmental atelectasis in the left lung base. No consolidation or pulmonary edema. Pleural spaces: No pleural effusion. No pneumothorax. Heart/Mediastinum: Borderline enlarged heart. Aortic calcifications. Bones/joints: No acute abnormality. IMPRESSION: Mild subsegmental atelectasis in the left lung base. No consolidation or pulmonary edema.
[2022-10-02 16:38] LABS: Basophils # 0.1 K/mm3 (0-0.2); Basophils % 0.7 % (0.1-2.0); Eosinophils # 0.2 K/mm3 (0.0-0.4); Eosinophils % 3.2 % (0.1-12.0); Hematocrit 40.8 % (37.0-47.0); Hemoglobin 12.3 g/dL (12.2-16.2); Lymphocytes # 2.1 K/mm3 (0.7-4.5); Lymphocytes % 32.2 % (10-50); Mean Corpuscular HGB Conc 30.2 g/dL (31.8-35.4); Mean Corpuscular Hemoglobin 24.5 pg (27.0-31.2); Mean Corpuscular Volume 80.9 fl (81-99); Mean Platelet Volume 8.8 fl (7.4-10.4); Monocytes # 0.3 K/mm3 (0.1-1.0); Monocytes % 5.2 % (1.7-9.3); Neutrophils # 3.8 K/mm3 (1.8-7.8); Neutrophils % 58.7 % (37.0-80.0); Platelet Count 211 K/mm3 (142-424); Red Blood Count 5.04 M/mm3 (4.20-5.40); Red Cell Distribution Width 16.6 % (11.5-17.5); White Blood Count 6.5 K/mm3 (4.8-10.8)
[2022-10-02 16:58] LABS: D-Dimer 0.74 ug/mL (0.0-0.5)
[2022-10-02 17:42] LABS: Alanine Aminotransferase 21 U/L (12-78); Albumin/Globulin Ratio 1.7 (1.1-1.8); Alkaline Phosphatase 132 U/L (38-126); Anion Gap 8.6 mEq/L (5-15); Aspartate Amino Transferase 34 U/L (14-36); Bilirubin,Total 0.1 mg/dl (0.2-1.3); Blood Urea Nitrogen 23 mg/dl (7-17); Calcium 8.6 mg/dl (8.4-10.2); Carbon Dioxide 32 mmol/L (22.0-30.0); Chloride 104 mmol/L (98-107); Estimated Glomerular Filt Rate 63 ml/min (>60); GFR (African American) 76 ML/MIN (>60); Globulin 2.4 g/dL (1.3-3.2); Glucose 97 mg/dl (74-100); Potassium 4.6 mmoL/L (3.5-5.1); Sodium 140 mmol/L (136-145); Total Protein,Serum 6.4 g/dl (6.3-8.2)
[2022-10-02 17:56] LABS: Troponin I < 0.01 ng/ml (0.00-0.034)
[2022-10-03 09:56] LABS: Magnesium 1.9 mg/dl (1.6-2.3)
== END ==
PROVIDERS: PCP Nurse Practitioner Family; Visit Provider Nurse Practitioner Family
DX: J44.9 Chronic obstructive pulmonary disease, unspecified (principal); R06.02 Shortness of breath; R53.1 Weakness
CPT/HCPCS: 36415; 71046; 80050; 80053; 83735; 84484; 85025; 85378

== ENCOUNTER → 2022-10-04 14:37 | Outpatient (CLI) | payer MEDICARE, OTHER, SELFPAY ==
--- NOTE | 2022-10-04 14:42 | CT_ITS ---
FINAL REPORT TECHNIQUE: Postcontrast axial images of the chest were performed in a CTA protocol. The study was performed with techniques to keep radiation dose as low as reasonably achievable, (ALARA). Individual dose reduction techniques using automated exposure control or adjustment of mA and/or kV according to the patient's size were employed. CLINICAL HISTORY: SOB,ELEVATED D DIMER. Hx asthma, emphysema, COPD. Smoker COMPARISON: 05/11/2022 FINDINGS: The heart is normal in size. No adenopathy is identified. No pleural or pericardial effusion is identified. The thoracic aorta is normal in caliber with no focal aneurysm or dissection identified. Previously seen bronchopneumonia has resolved. There is right middle lobe and lingular atelectasis with underlying emphysematous change. The images of the upper abdomen are unremarkable. IMPRESSION: 1. No PE, aneurysm or dissection. 2. Right middle lobe and lingular atelectasis with underlying emphysema. Reviewed, Interpreted and Dictated by Pushpa Villanueva MD Transcribed by Courtney Gomes Authenticated and [facility]
== END ==
PROVIDERS: PCP Nurse Practitioner Family; Visit Provider Nurse Practitioner Family
DX: R06.02 Shortness of breath (principal); R79.89 Other specified abnormal findings of blood chemistry
CPT/HCPCS: 71275; Q9967

== ENCOUNTER → 2022-10-08 10:51 | Outpatient (CLI) | payer MEDICARE, OTHER, SELFPAY ==
--- NOTE | 2022-10-08 10:56 | XR_ITS ---
FINAL REPORT CLINICAL HISTORY: SOB COPD ismael lung on COMPARISON: 10/02/2022 FINDINGS: TWO VIEW CHEST The heart size is normal. The mediastinum is normal. There is mild scarring of the left lung base that is stable. There is no pneumothorax. IMPRESSION: Mild scarring of the left lung base that is stable. Reviewed, Interpreted and Dictated by Mamadou Dutton III, MD Transcribed by Cleve Higgins Authenticated and [facility]
== END ==
PROVIDERS: PCP Nurse Practitioner Family; Visit Provider Nurse Practitioner Family
DX: R06.02 Shortness of breath (principal); J44.9 Chronic obstructive pulmonary disease, unspecified; J98.11 Atelectasis; Z72.0 Tobacco use
CPT/HCPCS: 71046

== ENCOUNTER 2022-11-20 09:54 | Outpatient (CLI) | payer MEDICARE, OTHER, SELFPAY ==
[2022-11-20 10:21] VITALS: BP 123/62; PULSE 75; RESP 20; TEMP 35.9; O2SAT 97
== END 2022-11-20 10:24 | disposition home or self-care (01) ==
LOC: INF 09:55
PROVIDERS: PCP Nurse Practitioner Family; Visit Provider Nurse Practitioner Family
DX: M85.89 Other specified disorders of bone density and structure, multiple sites (principal)
CPT/HCPCS: 96372; J0897

== ENCOUNTER → 2022-11-26 08:19 | Outpatient (POV) | payer MEDICARE, OTHER, SELFPAY ==
--- NOTE | 2022-11-26 08:47 | EXP.PAIN.OV ---
HPI Data of Consult Patient: new to practice Consult date: 11/26/22 Requesting Physician: Sharron Guzman APRN Primary Care Provider: Sandra Orozco APRN Consult Narrative Reason for consult: Low back pain, bilateral leg pain History of present illness: Ms. Cruz is a 62 year old female who presents today as a new patient. She is a referral from Ayanna Orozco's office. Today she rates her pain an 8 out of 10. Patient states her pain is all in her low back with radiating symptoms into her lower extremities. Patient describes this as an aching, throbbing sensation with occasional sharp sensations. Patient states this has been going on for years and unrelated to any specific trauma. 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 Patient does state that here lately it has progressively worsened. Patient has tried Tylenol and ibuprofen in the past with minimal improvement. She states she cannot tolerate NSAIDs due to worsening GI symptoms. Patient has also tried heat and ice along with multiple creams including Voltaren, hemp cream and Aspercreme with minimal relief. Patient has had physical therapy with no additional change of her sensations and also went to the chiropractor for years with some improvement. Patient did just recently have a back surgery by Dr. Fernández in February for a pinched nerve. Patient does state that this did help as long as she stayed in a seated position or did not move around much. Patient does state the pain is worse when she is up ambulating. She states it does interfere with her ability perform activities of daily living such as cooking and cleaning. Patient does state that she has a history of rheumatoid arthritis and did even have injections however it caused stomach upset. Patient does also states she has fibromyalgia and a history of strokes. She states that they also think she may have A-fib however she has not been officially diagnosed. She is currently on a blood thinner as a precaution. Patient does state that she takes a medication for her stomach, Dexilant and will switch between it and Protonix. Patient is currently managed with tizanidine 2 mg 3 times daily as needed that states this did help her fibromyalgia. She is currently managed with Preston 10 mg 3 times a day from her primary care doctor. She is requesting that we take over this medication. Her Rashaad is [phone]. It has been reviewed and appropriate. CC: Sharron Guzman APRN [facility] Disclaimer: The information contained in this section may have been updated after the patient was seen, as this information can be updated by other users. Medical History (Updated 11/26/22 @ 09:11 by Sharron Guzman APRN) Anxiety Degenerative disc disease Depression Fibromyalgia History of transient ischemic attack (TIA) HLD (hyperlipidemia) HTN (hypertension) Irritable bowel syndrome (IBS) Restless leg syndrome Sleep apnea Spinal stenosis Tobacco abuse Surgical History History of cataract surgery History of partial hysterectomy History of removal of both ovaries History of tonsillectomy Hx of cholecystectomy Previous back surgery Family History Father Hypertension Coronary artery disease Mother Pancreatic cancer Social History Smoking Status: Current some day smoker tobacco type: cigarettes packs per day: 2 years smoked: 43 smoking status stop date: 2 months ago second hand exposure: Yes alcohol intake: former substance use type: denies use current occupational status: disabled Travel in the last 8 weeks: None household members: none housing: house current occupational exposures/hazards: No caffeine: Yes Review of Systems Review of Systems Review of systems:: pertinent
[2022-11-26 08:48] VITALS: BP 110/65; PULSE 75; RESP 19; O2SAT 91; BMI 33.5
== END ==
PROVIDERS: PCP Nurse Practitioner Family; Visit Provider Nurse Practitioner Family
DX: M51.16 Intervertebral disc disorders with radiculopathy, lumbar region; M47.26 Other spondylosis with radiculopathy, lumbar region; G89.4 Chronic pain syndrome; M46.1 Sacroiliitis, not elsewhere classified
CPT/HCPCS: 99202; G0463

== ENCOUNTER 2022-12-04 13:19 | Day surgery (SDC) | payer MEDICARE, OTHER, SELFPAY ==
[2022-12-04 13:34] VITALS: BP 123/68; PULSE 78; RESP 16; TEMP 36.2; O2SAT 90; BMI 33.5
[2022-12-04 13:51] VITALS: BP 125/72; PULSE 77; RESP 18; O2SAT 94
--- NOTE | 2022-12-04 13:53 | P.PCN_ITS ---
Procedure Date: 12/04/22 Time: 13:50 Anesthesiologist:: Francisco Li CRNA Complications:: None Pre-procedure Diagnosis:: Bilateral sacroiliitis. Post-procedure Diagnosis:: Same. Indications for Procedure:: Patient is a very pleasant 62-year-old female that comes our clinic today for bilateral sacroiliac joint injections of cortisone. Patient complains of low lumbar back pain. Posterior hip pain bilaterally. Difficulty transitioning from sitting to standing. Difficulty with flexion, extension, left and right rotation. She rates her pain 7/10. Patient reports she has responded well to bilateral sacroiliac joint injections in the past Procedure Details:: Procedure: Bilateral sacroiliac joint injections under fluoroscopy Informed consent was obtained and the risks and benefits of the procedure were explained to the patient.~ The patient was taken to the procedure room and noninvasive monitors were placed including a noninvasive blood pressure cuff and pulse oximeter.~ The patient was placed prone on the procedure table. Both hips were cleansed using Betadine as a cleansing solution. C-arm fluoroscopy was used to view the right sacroiliac joint.~ The skin and subcutaneous tissues were anesthetized using lidocaine 1.5% and a 25-gauge needle.~ After this, a 22-gauge spinal needle was inserted under fluoroscopic guidance into the inferior aspect of the right sacroiliac joint.~ Omnipaque dye was injected and good spread was seen throughout the joint.~ After this, approximately 5 mL of bupivacaine, 0.25% and Depo-Medrol, 40 mg was incrementally injected into the right sacroiliac joint. We then moved to the left sacroiliac joint.~ The skin and subcutaneous tissues were anesthetized using lidocaine 1.5% and a 25-gauge needle.~ After this, a 22- gauge spinal needle was inserted under fluoroscopic guidance into the inferior aspect of the left sacroiliac joint.~ Omnipaque dye was injected and good spread was seen throughout the joint. After this, approximately 5 mL of bupivacaine, 0.25% and Depo-Medrol, 40 mg was incrementally injected into the left sacroiliac joint.~ The patient tolerated the procedure well with no complications. The patient was observed in the Pain Clinic and then was discharged home neurologically intact. Plan and Disposition:: Patient was discharged without incident.
[2022-12-04 13:54] VITALS: BP 117/65; PULSE 74; RESP 18; O2SAT 90
[2022-12-04 13:57] VITALS: BP 125/72; PULSE 77; RESP 18; O2SAT 94
== END 2022-12-04 13:54 | disposition home or self-care (01) ==
PROVIDERS: PCP Nurse Practitioner Family; Visit Provider Nurse Anesthetist, Certified Registered
DX: M46.1 Sacroiliitis, not elsewhere classified (principal)
CPT/HCPCS: 27096; G0260; J1040

== ENCOUNTER → 2022-12-26 10:01 | Outpatient (POV) | payer MEDICARE, OTHER, SELFPAY ==
--- NOTE | 2022-12-26 10:41 | EXP.PAIN.SOA ---
[facility] Pain Management SOAP Note Subjective:: Patient is a pleasant 62-year-old female who presents today for follow-up of bilateral SI injections on 12/04/2022. We are currently treating the patient for low back pain, degenerative disc disease of lumbar spine with lumbar radiculopathy symptoms, bilateral sacroiliitis, S1 nerve impingement. Today she rates her pain a 9 out of 10. Patient states that she continues to have constant pain in her low back and hips as well as radiating symptoms into her lower extremities. She does describe this as an aching, throbbing sensation that is worse with increased activity. She does state the pain interferes with her ability perform activities of daily living such as cooking and cleaning. Patient does state that the SI injections only made minimal improvement. She does state that she is currently sick with a sinus infection and is on steroids and antibiotics. She does states since our last visit that she has a blockage in her femoral artery that her doctor is wanting to take a look at it. Patient states she is unsure what the plan of care is for this. Patient is currently managed with [place] 10 mg 3 times a day from her primary care doctor however she states that she is no longer able to do this medication and asking if we can take it over. Patient states she is currently also on tizanidine 2 mg 3 times daily as needed and that this was initially helping her fibromyalgia however its not been as effective lately. Her Rashaad has been reviewed and is appropriate. Patient denies any heart or kidney issues. Review of Systems: General: No recent weight changes, no fever, no sleep disturbances Respiratory: No cough, no shortness of air, no recurring pulmonary infections Cardiovascular/peripheral vascular: No chest pain, no palpitations, no edema, no shortness of breath Gastrointestinal: No new onset incontinence, normal bowel movements reported Genitourinary: No new onset incontinence Musculoskeletal: Low back pain, bilateral leg pain Psychiatric: [Normal mood/affect] Neurological: [Denies weakness in extremities], [denies balance issues] Objective:: Physical Exam: General: Alert and oriented x3, no acute distress, pleasant and cooperative Lungs: Respirations even and unlabored, symmetrical chest expansion Eyes: PERRL Musculoskeletal: Flexion and extension of lumbar [spine] somewhat guarded secondary to pain, [antalgic gait noted] Neurological: Speech clear, no gross sensory deficit Assessment:: Degenerative disc disease of lumbar spine with lumbar radiculopathy symptoms, S1 nerve root impingement, bilateral sacroiliitis, low back Plan:: Patient is experiencing significant pain in her low back with limited range of motion. Patient does have pain going down her bilateral lower extremities with numbness and heaviness. 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 Risk and benefits were discussed with the patient. I will send in a prescription of tizanidine 4 mg 4 times daily as needed and tramadol 50 mg daily and provide a 1 month supply of these medications. I have counseled the patient if she does get updated information regarding her blockage and wants to proceed forward with her injection she can call and schedule this over the phone. Patient will return to clinic in 1 month for reevaluation of symptoms and plan of care. Patient has been instructed to contact the clinic with any concerns before the next appointment. Dr. Rosales has reviewed this note and agrees with this plan of care. This note was dictated using voice recognition software and make contain errors or omissions. Patient did contact our office and states that she had a previous itching response to tramadol. We will discontinue this prescription an
[2022-12-26 12:41] VITALS: BP 137/78; PULSE 81; RESP 18; O2SAT 94; BMI 34.0
== END | disposition home or self-care (01) ==
PROVIDERS: PCP Nurse Practitioner Family; Visit Provider Nurse Practitioner Family
DX: M51.16 Intervertebral disc disorders with radiculopathy, lumbar region (principal); M46.1 Sacroiliitis, not elsewhere classified
CPT/HCPCS: 99212; G0463

== ENCOUNTER → 2023-01-04 11:58 | Outpatient (CLI) | payer MEDICARE, OTHER, SELFPAY ==
--- NOTE | 2023-01-04 12:01 | XR_ITS ---
FINAL REPORT CLINICAL HISTORY: shortness of breath x 3-4 weeks, cough, COPD former smoker for 45 years COMPARISON: FINDINGS: Two views of the chest were obtained. Cardiomegaly is noted. The pulmonary vascularity is within normal limits. The mediastinum is normal. Mild bibasilar opacities are favored to represent atelectasis. There is no pneumothorax. The bony thorax is intact. IMPRESSION: Mild bibasilar opacities favor atelectasis. Reviewed, Interpreted and Dictated by Mamadou Dutton III, MD Transcribed by Kailey Castro Authenticated and . [facility]
== END ==
PROVIDERS: PCP Nurse Practitioner Family; Visit Provider Nurse Practitioner Family
DX: R06.02 Shortness of breath (principal)
CPT/HCPCS: 71046

== ENCOUNTER → 2023-01-08 14:31 | Outpatient (CLI) | payer MEDICARE, OTHER, SELFPAY ==
[2023-01-08 12:00] LABS: Basophils % 0.2 % (0.1-2.0); Eosinophils % 0.3 % (0.1-12.0); Hematocrit 40.9 % (37.0-47.0); Hemoglobin 13.1 g/dL (12.2-16.2); Lymphocytes # 1.1 K/mm3 (0.7-4.5); Lymphocytes % 8.8 % (10-50); Mean Corpuscular Hemoglobin 24.3 pg (27.0-31.2); Mean Corpuscular Volume 76.1 fl (81-99); Mean Platelet Volume 8.3 fl (7.4-10.4); Monocytes # 0.4 K/mm3 (0.1-1.0); Monocytes % 2.7 % (1.7-9.3); Neutrophils # 11.3 K/mm3 (1.8-7.8); Platelet Count 269 K/mm3 (142-424); Red Blood Count 5.38 M/mm3 (4.20-5.40); Red Cell Distribution Width 18.4 % (11.5-17.5); White Blood Count 12.8 K/mm3 (4.8-10.8)
[2023-01-08 12:02] LABS: MANUAL DIFFERENTIAL MANUAL DIFFERENTIAL (MANUAL DIFF)
[2023-01-08 12:41] LABS: Chloride 103 mmol/L (98-107); Lymphocytes % 11 % (10-50); Monocytes % 4 % (2-9); Neutrophils % 85 % (42-76); Potassium 4.6 mmoL/L (3.5-5.1); Sodium 139 mmol/L (136-145); Total Cells Counted 100
[2023-01-08 12:43] LABS: Platelet Estimate Normal; RBC Morphology Normal
[2023-01-08 12:44] LABS: Alanine Aminotransferase 31 U/L (12-78); Albumin Level 4.6 g/dl (3.5-5.0); Albumin/Globulin Ratio 1.8 (1.1-1.8); Alkaline Phosphatase 121 U/L (38-126); Anion Gap 10.6 mEq/L (5-15); Aspartate Amino Transferase 31 U/L (14-36); Bilirubin,Total 0.2 mg/dl (0.2-1.3); Blood Urea Nitrogen 25 mg/dl (7-17); Carbon Dioxide 30 mmol/L (22.0-30.0); Estimated Glomerular Filt Rate 63 ml/min (>60); GFR (African American) 76 ML/MIN (>60); Globulin 2.5 g/dL (1.3-3.2); Total Protein,Serum 7.1 g/dl (6.3-8.2)
[2023-01-08 12:45] LABS: Calcium 9.2 mg/dl (8.4-10.2); Glucose 93 mg/dl (74-100)
[2023-01-08 12:53] LABS: NT Pro Brain Natriuretic Pep. 267 pg/mL (0-125)
[2023-01-08 12:56] LABS: Troponin I 0.02 ng/ml (0.00-0.034)
== END ==
PROVIDERS: PCP Nurse Practitioner Family; Visit Provider Nurse Practitioner Family
DX: E78.5 Hyperlipidemia, unspecified (principal); I10 Essential (primary) hypertension; R06.02 Shortness of breath
CPT/HCPCS: 80053; 83880; 84484; 85007; 85025

== ENCOUNTER → 2023-01-16 09:21 | Outpatient (CLI) | payer MEDICARE, OTHER, SELFPAY ==
--- NOTE | 2023-01-16 09:31 | CA_ITS ---
APPROVED REPORT EXAM: Comprehensive 2D, Doppler, and color-flow Echocardiogram Fermentologist: Kenzie Fernandez, ELAINE, RVS Ht: 4 ft 11 in Wt: 170lbs BSA: 1.72 BP: 100/66 mmHg Indications: COPD, Smoker, HTN, PAD, Cardiomegaly, Murmur 2D Dimensions IVSd 1.04 cm LVEF (Visual) 57.30 % PWd 1.06 cm LA Volume 66.00 mL LVDd 4.54 cm LA Volume Index 37.50 mL/m2 (M/F) 16-34 LVDs 3.18 cm Aortic Root 2.90 cm Left Atrium 3.36 cm LVOT 1.78 cm (M/F) 1.5-2.5 M-Mode Dimensions LA Diam 3.93 cm (1.9-4.0) Ao Diam 2.90 cm (2.0-3.7) EPSs 0.40 cm TAPSE 2.19 (<1.7) LV Diastology E Decel Time 207.00 (160-240 msec) E/A Ratio 1.13 MED E' 7.60 (< 7 cm/sec) MED A' 13.70 cm/s E'/MED E' Ratio 16.36 (>14) LAT E' 9.30 (<10 cm/sec) LAT A' 8.10 cm/s E/LAT E' Ratio 13.37 (>14) Aortic Valve LVOT Max 114.00 (70-110 cm/s) LVOT VTI 22.90 cm AoV Peak Parveen. 170.00 (50-130 cm/s) AI PHT 413.00 ms AO Peak GR. 11.60 mmHg AO Mean GR. 5.70 (<5 mmHg) AO VTI 35.64 (18-25 cm) CHANDLER (VTI) 1.60 (2.5-4.5 cm2) Mitral Valve MV A Velocity 110.00 (40-130 cm/s) E/A Ratio 1.13 MV Decel. Time 207.00 (160-240 ms) Tricuspid Valve TR P. Velocity 245.00 cm/s RAP Estimate 10.00 mmHg RVSP 34.00 mmHg Left Ventricle The left ventricle is normal size. The left ventricular systolic function is normal. The left ventricular ejection fraction is within the normal range. There is increased LV wall thickness. There is normal LV segmental wall motion. The left ventricular diastolic function is normal. LVEF is 55%. Right Ventricle The right ventricle is normal size. The right ventricular systolic function is normal. Atria The left atrium size is normal. The right atrium size is normal. There is no Doppler evidence of interatrial shunt. Aortic Valve Aortic valve is mildly thickened. There is no aortic valvular stenosis. Moderate aortic regurgitation. Mitral Valve The mitral valve is normal in structure. Trace mitral regurgitation. Tricuspid Valve The tricuspid valve leaflets are thin and pliable. Trace tricuspid regurgitation. RVSP is 25-30 mmHg. Pulmonic Valve The pulmonary valve is normal in structure. Trace pulmonic regurgitation. Great Vessels The aortic root is normal in size. The ascending aorta is normal in size. IVC is normal in size and collapses >50% with inspiration. Pericardium There is no pericardial effusion. Other Information Study Quality: Fair Conclusion Normal biventricular systolic function. Normal LV size. Moderate AI. Electronically signed by : Yolie Brooks MD 01/21/2023 13:51:40
== END ==
PROVIDERS: PCP Nurse Practitioner Family; Visit Provider Nurse Practitioner Family
DX: I51.7 Cardiomegaly (principal)
CPT/HCPCS: 93306

== ENCOUNTER → 2023-01-24 10:21 | Outpatient (POV) | payer MEDICARE, OTHER, SELFPAY ==
[2023-01-24 10:34] VITALS: BP 124/66; PULSE 86; RESP 18; O2SAT 94; BMI 33.2
--- NOTE | 2023-01-24 12:07 | EXP.PAIN.SOA ---
[facility] Pain Management SOAP Note Subjective:: Patient is a pleasant 62-year-old female who presents today for follow-up. We are currently treating the patient for degenerative disc disease of lumbar spine with lumbar radiculopathy symptoms, bilateral sacroiliitis, S1 nerve root impingement, low back pain. Today she rates her pain a 9 out of 10. Patient denies any new trauma or injury. She states that she continues to have significant pain in her low back and legs. She does describe this as an aching, throbbing sensation that is worse with increased activity. She states that her legs constantly feel weak and heavy and will frequently swell around her ankles when her back pain is worse. Patient does state from our last visit that she did have a cardiac cath and had an 0 blockage from the femoral artery. Patient has had injections in the past however these have not provided significant improvement. From our last visit she was prescribed tizanidine 4 mg 4 times a day and tramadol 50 mg daily. Patient states that the tizanidine has helped and is requesting a refill at today's visit. She does state that the tramadol however caused significant rash and itching and she discontinued this medication. Patient does state that she forgot years ago she had tried it and cause similar symptoms in the past. Patient is currently managed with compounded cream and has in the past had prescriptions of [place] 10 mg 3 times a day. Patient does have a history of fibromyalgia. Her Rashaad has been reviewed and is appropriate. Review of Systems: General: No recent weight changes, no fever, no sleep disturbances Respiratory: No cough, no shortness of air, no recurring pulmonary infections Cardiovascular/peripheral vascular: No chest pain, no palpitations, no edema, no shortness of breath Gastrointestinal: No new onset incontinence, normal bowel movements reported Genitourinary: No new onset incontinence Musculoskeletal: Low back pain, bilateral leg pain Psychiatric: [Normal mood/affect] Neurological: [Denies weakness in extremities], [denies balance issues] Objective:: Physical Exam: General: Alert and oriented x3, no acute distress, pleasant and cooperative Lungs: Respirations even and unlabored, symmetrical chest expansion Eyes: PERRL Musculoskeletal: Flexion and extension of lumbar [spine] somewhat guarded secondary to pain, [antalgic gait noted] Neurological: Speech clear, no gross sensory deficit Assessment:: Degenerative disc disease of lumbar spine with lumbar radiculopathy symptoms, bilateral sacroiliitis, S1 nerve root impingement, low back pain, chronic pain syndrome Plan:: I will refill the patient's tizanidine 4 mg 4 times a day and provide a 1 month supply of this medication. I have discussed with the patient due to her chronic pain she may be a beneficial candidate of a spinal cord stimulator trial. Risk and benefits and educational handouts were given at today's visit. We will discuss this at her upcoming visit if she would like to proceed forward. Patient will return to clinic in 1 month for reevaluation of symptoms and plan of care. Patient has been instructed to contact the clinic with any concerns before the next appointment. Dr. Rosales has reviewed this note and agrees with this plan of care. This note was dictated using voice recognition software and make contain errors or omissions. [facility] Disclaimer: The information contained in this section may have been updated after the patient was seen, as this information can be updated by other users. Medical History Anxiety Degenerative disc disease Depression Fibromyalgia History of transient ischemic attack (TIA) HLD (hyperlipidemia) HTN (hypertension) Irritable bowel syndrome (IBS) Restless leg syndrome Sleep apnea Spinal stenosis Tobacco abuse Surgical History History of cataract lanier
== END | disposition home or self-care (01) ==
PROVIDERS: PCP Nurse Practitioner Family; Visit Provider Nurse Practitioner Family
DX: M51.16 Intervertebral disc disorders with radiculopathy, lumbar region (principal); M46.1 Sacroiliitis, not elsewhere classified; G89.4 Chronic pain syndrome
CPT/HCPCS: 99212; G0463

== ENCOUNTER → 2023-02-08 14:28 | Outpatient (CLI) | payer MEDICARE, OTHER, SELFPAY | PROVIDERS: PCP Nurse Practitioner Family; Visit Provider Nurse Practitioner Family | DX: R10.9 Unspecified abdominal pain (principal) | CPT/HCPCS: 87086 ==

== ENCOUNTER → 2023-02-25 10:47 | Outpatient (POV) | payer MEDICARE, OTHER, SELFPAY ==
[2023-02-25 11:00] VITALS: BP 114/66; PULSE 66; RESP 18; O2SAT 94; BMI 34.2
--- NOTE | 2023-02-25 11:04 | EXP.PAIN.SOA ---
[facility] Pain Management SOAP Note Subjective:: Patient is a pleasant 62-year-old female who presents today for follow-up. We are currently treating the patient for degenerative disc disease of lumbar spine with lumbar radiculopathy symptoms, bilateral sacroiliitis, S1 nerve root impingement and low back pain. Today she rates her pain a 9 out of 10. Patient denies any new trauma or injury. She denies any change to location or type of pain she experiences. Patient states that she feels like her low back and leg symptoms have increased from our last visit. She states it goes into her buttocks and down her entire legs. Patient does describe this as an aching, throbbing sensation with numbness and tingling. Patient does state that it interferes with her activities of daily living such as cooking and cleaning. Patient does state that mornings typically are worse and she frequently has to take a pain pill to even get up and started. Patient states she does normally break her medication in half and takes half a tablet. Patient is currently managed with tizanidine 4 mg 4 times a day and compounded cream. Patient denies any side effects from these medications. She states that she does not need any refills on her muscle relaxer. She also states that she typically alternates between the compounded cream and 2 other topicals for better relief. Patient was previously tried on tramadol however it caused rash and itching and was discontinued. Patient does state that she is planning on making a follow-up appointment with Dr. Fernández to see if he recommends surgery. Patient is on [place] 10 mg 3 times a day from her PCP. Her Rashaad has been reviewed and is appropriate. Review of Systems: General: No recent weight changes, no fever, no sleep disturbances Respiratory: No cough, no shortness of air, no recurring pulmonary infections Cardiovascular/peripheral vascular: No chest pain, no palpitations, no edema, no shortness of breath Gastrointestinal: No new onset incontinence, normal bowel movements reported Genitourinary: No new onset incontinence Musculoskeletal: Low back pain, bilateral leg pain Psychiatric: [Normal mood/affect] Neurological: [Denies weakness in extremities], [denies balance issues] Objective:: Physical Exam: General: Alert and oriented x3, no acute distress, pleasant and cooperative Lungs: Respirations even and unlabored, symmetrical chest expansion Eyes: PERRL Musculoskeletal: Flexion and extension of lumbar [spine] somewhat guarded secondary to pain, [antalgic gait noted] Neurological: Speech clear, no gross sensory deficit Assessment:: Degenerative disc disease of lumbar spine with lumbar radiculopathy symptoms, bilateral sacroiliitis, S1 nerve root impingement, low back pain Plan:: Patient continues to experience significant pain in her low back and legs with limited range of motion. I have discussed with the patient that she may benefit from a lumbar epidural steroid injection. Risk and benefits were discussed with the patient however at this time she would like to wait and talk to Dr. Fernández before proceeding forward. I have counseled the patient that she can call and schedule this injection over the phone. It would be for a LESI L5-S1. Patient will return to clinic in 2 months for reevaluation of symptoms and plan of care. Patient has been instructed to contact the clinic with any concerns before the next appointment. Dr. Rosales has reviewed this note and agrees with this plan of care. This note was dictated using voice recognition software and make contain errors or omissions. [facility] Disclaimer: The information contained in this section may have been updated after the patient was seen, as this information can be updated by other users. Medical History Anxiety Degenerative disc disease Depression Fibromyalgia History of transient ischemic attack (TIA) HLD (hyperlipidemia) HTN (hypertensi
== END ==
PROVIDERS: PCP Nurse Practitioner Family; Visit Provider Nurse Practitioner Family
DX: M51.16 Intervertebral disc disorders with radiculopathy, lumbar region (principal); M46.1 Sacroiliitis, not elsewhere classified
CPT/HCPCS: 99212; G0463

== ENCOUNTER 2023-03-12 10:20 | Outpatient (CLI) | payer MEDICARE, OTHER, SELFPAY ==
[2023-03-12 10:53] LABS: Basophils # 0.1 K/mm3 (0-0.2); Basophils % 0.9 % (0.1-2.0); Eosinophils # 0.2 K/mm3 (0.0-0.4); Eosinophils % 2.8 % (0.1-12.0); Hematocrit 39.8 % (37.0-47.0); Hemoglobin 12.2 g/dL (12.2-16.2); Lymphocytes # 2.2 K/mm3 (0.7-4.5); Lymphocytes % 30.8 % (10-50); Mean Corpuscular HGB Conc 30.7 g/dL (31.8-35.4); Mean Corpuscular Hemoglobin 22.9 pg (27.0-31.2); Mean Corpuscular Volume 74.7 fl (81-99); Mean Platelet Volume 9.2 fl (7.4-10.4); Monocytes # 0.4 K/mm3 (0.1-1.0); Monocytes % 5.4 % (1.7-9.3); Neutrophils # 4.3 K/mm3 (1.8-7.8); Neutrophils % 60.1 % (37.0-80.0); Platelet Count 246 K/mm3 (142-424); Red Blood Count 5.34 M/mm3 (4.20-5.40); Red Cell Distribution Width 17.8 % (11.5-17.5); White Blood Count 7.2 K/mm3 (4.8-10.8)
[2023-03-12 11:22] LABS: Alanine Aminotransferase 22 U/L (12-78); Albumin Level 3.8 g/dl (3.5-5.0); Alkaline Phosphatase 100 U/L (38-126); Anion Gap 5.6 mEq/L (5-15); Aspartate Amino Transferase 31 U/L (14-36); Bilirubin,Indirect 0.2 mg/dL (0.0-0.9); Bilirubin,Total 0.2 mg/dl (0.2-1.3); Bilirubin,Unconjugated 0.3 mg/dL (0.0-1.1); Blood Urea Nitrogen 25 mg/dl (7-17); Calcium 8.4 mg/dl (8.4-10.2); Carbon Dioxide 34 mmol/L (22.0-30.0); Chloride 102 mmol/L (98-107); Chol/HDL Ratio 3.2 (1-3.5); Cholesterol 139 mg/dl (140-200); Estimated Glomerular Filt Rate 63 ml/min (>60); GFR (African American) 76 ML/MIN (>60); Glucose 90 mg/dl (74-100); HDL Cholesterol 43 mg/dl (40-60); Potassium 3.6 mmoL/L (3.5-5.1); Sodium 138 mmol/L (136-145); Total Protein,Serum 6.1 g/dl (6.3-8.2); Triglycerides 100 mg/dl (30-150); VLDL Cholesterol 20 mg/dL (0-40)
[2023-03-12 11:44] LABS: Direct LDL Cholesterol 77.72 mg/dL (100-129)
== END 2023-03-12 23:59 ==
LOC: LAB 10:23
PROVIDERS: Internal Medicine Interventional Cardiology; PCP Nurse Practitioner Family; Visit Provider Nurse Practitioner Family
DX: E78.00 Pure hypercholesterolemia, unspecified (principal)
CPT/HCPCS: 80048; 80061; 80076; 85025

== ENCOUNTER 2023-03-18 12:24 | Outpatient (CLI) | payer MEDICARE, OTHER, SELFPAY ==
--- NOTE | 2023-03-18 12:29 | XR_ITS ---
FINAL REPORT CLINICAL HISTORY: cough, edema COMPARISON: 01/04/2023 FINDINGS: Two views of the chest were obtained. The heart size and pulmonary vascularity are within normal limits. The mediastinum is normal. There is mild left base atelectasis or scarring. There is no pneumothorax. The bony thorax is intact. IMPRESSION: Mild left base atelectasis or scarring. Reviewed, Interpreted and Dictated by Mamadou Dutton III, MD Transcribed by Kailey Castro Authenticated and [facility]
== END 2023-03-18 23:59 ==
LOC: RAD 12:25
PROVIDERS: PCP Nurse Practitioner Family; Visit Provider Nurse Practitioner Family
DX: R05.1 Acute cough (principal); R60.0 Localized edema
CPT/HCPCS: 71046

== ENCOUNTER 2023-03-27 17:53 | Outpatient (CLI) | payer MEDICARE, OTHER, SELFPAY ==
[2023-03-27 18:35] LABS: Amphetamine/Metha Screen,Urine Negative ng/ml (<1000)
[2023-03-27 18:36] LABS: Barbiturates Screen,Urine Negative ng/ml (<200); Benzodiazepines Screen,Urine Negative ng/ml (<200)
[2023-03-27 18:37] LABS: Cannabinoid Screen,Urine Negative ng/ml (<50)
[2023-03-27 18:38] LABS: Cocaine Screen,Urine Negative ng/ml (<300); Methadone Screen,Urine Negative ng/ml (<300)
[2023-03-27 18:42] LABS: Opiate Screen,Urine Positive ng/ml (<300)
[2023-03-27 18:43] LABS: Phencyclidine Screen,Urine Negative ng/ml (<25)
== END 2023-03-27 23:59 ==
LOC: LAB.DROPOF 17:54
PROVIDERS: PCP Nurse Practitioner Family; Visit Provider Nurse Practitioner Family
DX: Z79.899 Other long term (current) drug therapy (principal)
CPT/HCPCS: 80307

== ENCOUNTER → 2023-04-25 11:16 | Outpatient (POV) | payer MEDICARE, OTHER, SELFPAY ==
--- NOTE | 2023-04-25 11:39 | EXP.PAIN.SOA ---
[facility] Pain Management SOAP Note Subjective:: Patient is a pleasant 62-year-old female who presents today for 2-month follow-up. We are currently treating the patient for degenerative disc disease of lumbar spine with lumbar radiculopathy symptoms, bilateral sacroiliitis, S1 nerve root impingement and low back pain. Today she rates her pain a 9 out of 10. She does state since her last visit that she feels like her pain has changed and that it will also go up into her mid back and upper neck. Patient denies any recent imaging of these areas. Patient does also state recently she was dog sitting and she ended up getting drug to where she landed on her chest area and left hip and did have significant bruising. Patient states that she is continue to have pain now at the left hip and frequently experiences difficulty sleeping on that side or difficulty moving the joint when she has been in prolonged positioning. She does state that she continues to have her low back pain and radiating down into her buttocks and her legs. She does describe this as a aching, throbbing sensation with numbness and tingling and does interfere with her ADLs. At our last visit we did discuss possible epidural injection however at that time she wanted to wait due to having a neurosurgery appointment coming up. Patient does state that she is scheduled still for the appointment with Dr. Fernández on June 05. Patient is currently managed with tizanidine 4 mg 4 times a day and compounded cream. Patient denies any side effects from these medications. Patient is on [place] 10 mg 3 times a day from her PCP. Her Rashaad has been reviewed and is appropriate. Review of Systems: General: No recent weight changes, no fever, no sleep disturbances Respiratory: No cough, no shortness of air, no recurring pulmonary infections Cardiovascular/peripheral vascular: No chest pain, no palpitations, no edema, no shortness of breath Gastrointestinal: No new onset incontinence, normal bowel movements reported Genitourinary: No new onset incontinence Musculoskeletal: Low back pain, bilateral leg pain Psychiatric: [Normal mood/affect] Neurological: [Denies weakness in extremities], [denies balance issues] Objective:: Physical Exam: General: Alert and oriented x3, no acute distress, pleasant and cooperative Lungs: Respirations even and unlabored, symmetrical chest expansion Eyes: PERRL Musculoskeletal: Flexion and extension of lumbar [spine] somewhat guarded secondary to pain, [antalgic gait noted] Neurological: Speech clear, no gross sensory deficit Assessment:: Degenerative disc disease of lumbar spine with lumbar radiculopathy symptoms, bilateral sacroiliitis, and S1 nerve root, mid back pain, neck pain, left hip pain Plan:: Due to the patient's change in pain sensations with it now radiating up into her mid back and neck I will order x-ray imaging of both her cervical, thoracic and left hip. I have discussed with the patient I will also order more advanced imaging of an MRI without contrast of her cervical and thoracic spine. Patient has been counseled that she may benefit from injection therapy still and that we can follow-up with this at future visits. Patient will return to clinic in 1 month following imaging for reevaluation of symptoms and plan of care. Patient has been instructed to contact the clinic with any concerns before the next appointment. Dr. Rosales has reviewed this note and agrees with this plan of care. This note was dictated using voice recognition software and make contain errors or omissions. [facility] Disclaimer: The information contained in this section may have been updated after the patient was seen, as this information can be updated by other users. Medical History Anxiety Degenerative disc disease Depression Fibromyalgia History of transient ischemic attack (TIA) HLD (hyperlipidemia) HTN (hypertension) Irritable bowel syndrome (IBS) Restless leg syndrome Sleep apnea Spinal stenosis Tobacco abuse Surgical History History of cataract surgery History of partial hysterectomy History of removal of both ovaries History of tonsillectomy Hx of cholecystectomy Previous back surgery Family History Father Hypertension Coronary artery disease Mother Pancreatic cancer Social History Smoking Status: Current some day smoker tobacco type: cigarettes packs per day: 2 years smoked: 45 smoking status stop date: 2 months ago second hand exposure: Yes alcohol intake: former substance use type: denies use current occupational status: retired Travel in the last 8 weeks: None household members: none housing: house current occupational exposures/hazards: No caffeine: Yes
--- NOTE | 2023-04-25 12:08 | XR_ITS ---
FINAL REPORT CLINICAL HISTORY: Mid back pain COMPARISON: None FINDINGS: 2 views of the thoracic spine were obtained. There is no fracture present. There is no malalignment. There is mild degenerative change. There is mild S-shaped curvature of the thoracic spine. IMPRESSION: Degenerative change without acute process. Reviewed, Interpreted and Dictated by Mamadou Dutton III, MD Transcribed by Kailey Castro Authenticated and [facility]
--- NOTE | 2023-04-25 12:08 | XR_ITS ---
FINAL REPORT CLINICAL HISTORY: NECK AND MID BACK PAIN COMPARISON: None FINDINGS: CERVICAL SPINE 5 views were obtained. There is no acute fracture. There is mild anterolisthesis of C2 on C3, C3 on C4, and C4 on C5. There is multilevel mild degenerative change with osteophytes. There is no evidence of neuroforaminal narrowing. IMPRESSION: Degenerative change without acute process. Reviewed, Interpreted and Dictated by Mamadou Dutton III, MD Transcribed by Kailey Castro Authenticated and [facility]
[2023-04-25 12:13] VITALS: BP 114/69; PULSE 65; RESP 18; O2SAT 90; BMI 33.5
== END ==
PROVIDERS: PCP Nurse Practitioner Family; Visit Provider Nurse Practitioner Family
DX: M51.16 Intervertebral disc disorders with radiculopathy, lumbar region (principal); M46.1 Sacroiliitis, not elsewhere classified; M54.2 Cervicalgia; M25.552 Pain in left hip
CPT/HCPCS: 72050; 72072; 99212; G0463

== ENCOUNTER 2023-05-01 15:43 | Outpatient (CLI) | payer MEDICARE, OTHER, SELFPAY ==
--- NOTE | 2023-05-01 15:50 | XR_ITS ---
FINAL REPORT TECHNIQUE: Chest PA & Lateral CLINICAL HISTORY: acute cough FINDINGS: 2 views of the chest were performed. The heart size is normal. The mediastinum is within normal limits. There is a linear density in the left lung base consistent with scar. There is no acute cardiopulmonary process. There are no pleural effusions. There is no pneumothorax. The bony thorax appears intact. IMPRESSION: No acute cardiopulmonary process. Reviewed, Interpreted and Dictated by Delbert Boo MD Transcribed by Florinda Braden Authenticated and [facility]
[2023-05-01 16:45] LABS: Basophils % 0.5 % (0.1-2.0); Eosinophils # 0.2 K/mm3 (0.0-0.4); Eosinophils % 2.2 % (0.1-12.0); Hematocrit 40.6 % (37.0-47.0); Hemoglobin 12.2 g/dL (12.2-16.2); Lymphocytes # 1.8 K/mm3 (0.7-4.5); Mean Corpuscular HGB Conc 30.2 g/dL (31.8-35.4); Mean Corpuscular Hemoglobin 23.4 pg (27.0-31.2); Mean Corpuscular Volume 77.4 fl (81-99); Mean Platelet Volume 8.6 fl (7.4-10.4); Monocytes # 0.3 K/mm3 (0.1-1.0); Monocytes % 4.5 % (1.7-9.3); Neutrophils # 4.5 K/mm3 (1.8-7.8); Neutrophils % 66.7 % (37.0-80.0); Platelet Count 225 K/mm3 (142-424); Red Blood Count 5.24 M/mm3 (4.20-5.40); Red Cell Distribution Width 17.9 % (11.5-17.5); White Blood Count 6.8 K/mm3 (4.8-10.8)
[2023-05-01 17:04] LABS: Alanine Aminotransferase 14 U/L (12-78); Albumin/Globulin Ratio 1.6 (1.1-1.8); Alkaline Phosphatase 139 U/L (38-126); Anion Gap 8.9 mEq/L (5-15); Aspartate Amino Transferase 25 U/L (14-36); Bilirubin,Total 0.3 mg/dl (0.2-1.3); Blood Urea Nitrogen 23 mg/dl (7-17); Calcium 9.2 mg/dl (8.4-10.2); Carbon Dioxide 32 mmol/L (22.0-30.0); Chloride 103 mmol/L (98-107); Estimated Glomerular Filt Rate 72 ml/min (>60); GFR (African American) 87 ML/MIN (>60); Globulin 2.5 g/dL (1.3-3.2); Glucose 95 mg/dl (74-100); Potassium 3.9 mmoL/L (3.5-5.1); Sodium 140 mmol/L (136-145); Total Protein,Serum 6.5 g/dl (6.3-8.2)
[2023-05-01 17:36] LABS: Thyroid Stimulating Hormone 2.23 uIU/mL (0.465-4.68)
== END 2023-05-01 23:59 ==
PROVIDERS: PCP Nurse Practitioner Family; Visit Provider Nurse Practitioner Family
DX: R05.1 Acute cough (principal); R50.9 Fever, unspecified; R68.89 Other general symptoms and signs
CPT/HCPCS: 36415; 71046; 80053; 84443; 85025; 87040; 87635

== ENCOUNTER 2023-05-10 10:33 | Outpatient (CLI) | payer MEDICARE, OTHER, SELFPAY ==
[2023-05-10 11:50] LABS: NT Pro Brain Natriuretic Pep. 115 pg/mL (0-125)
== END 2023-05-10 23:59 ==
PROVIDERS: PCP Nurse Practitioner Family; Visit Provider Internal Medicine Interventional Cardiology
DX: R06.02 Shortness of breath (principal)
CPT/HCPCS: 36415; 83880

== ENCOUNTER 2023-05-15 13:26 | Inpatient (IN) | payer MEDICARE, OTHER, SELFPAY ==
[2023-05-15] VITALS (7 sets, daily range): BP systolic 107–135; BP diastolic 49–84; PULSE 62–75; RESP 18–22; TEMP 36.5–37.2; O2SAT 79–96; BMI 33.5; BMI 31.7
--- NOTE | 2023-05-15 13:41 | XR_ITS ---
FINAL REPORT CLINICAL HISTORY: shortness of breath COMPARISON: 03/18/2023 FINDINGS: TWO-VIEW CHEST The heart size is normal. The mediastinum is normal. There are mild bibasilar opacities, favor atelectasis or scar. There is no pneumothorax. IMPRESSION: Bibasilar atelectasis versus scar. Reviewed, Interpreted and Dictated by Mamadou Dutton III, MD Transcribed by Deidre South Authenticated and [facility]
[2023-05-15 13:55] LABS: Basophils % 0.7 % (0.1-2.0); Eosinophils % 0.5 % (0.1-12.0); Hematocrit 42.6 % (37.0-47.0); Lymphocytes # 0.7 K/mm3 (0.7-4.5); Lymphocytes % 24.9 % (10-50); Mean Corpuscular HGB Conc 30.6 g/dL (31.8-35.4); Mean Corpuscular Hemoglobin 23.3 pg (27.0-31.2); Mean Platelet Volume 9.3 fl (7.4-10.4); Monocytes # 0.1 K/mm3 (0.1-1.0); Platelet Count 148 K/mm3 (142-424); Red Cell Distribution Width 18.1 % (11.5-17.5); White Blood Count 2.9 K/mm3 (4.8-10.8)
--- NOTE | 2023-05-15 14:02 | ED_ITS ---
Discharge Plan Disposition Patient Disposition: Admitted Prescriptions Prescriptions: No Action levocetirizine 5 mg tablet 5 mg PO HS 90 Days Qty: 90 1RF albuterol sulfate [Ventolin HFA] 90 mcg/actuation HFA aerosol inhaler 1 inh INHALATION QIDP PRN (Reason: Shortness Of Breath) albuterol sulfate 2.5 mg /3 mL (0.083 %) solution for nebulization 2.5 mg inhalation Q6H PRN (Reason: Breathing Problems) budesonide 1 mg/2 mL suspension for nebulization 1 mg inhalation BID PRN (Reason: Breathing Problems) Patient Comments: INHALE 1 VIAL TWICE DAILY primidone 50 mg tablet 5 mg PO TID PRN (Reason: circulation) Qty: 30 2RF potassium chloride 10 mEq capsule, extended release 10 meq PO DAILY 90 Days Qty: 90 1RF clotrimazole-betamethasone 1-0.05 % cream 1 applic topical BID 14 Days Qty: 45 0RF dicyclomine 10 mg capsule 10 mg PO QID 90 Days Qty: 360 2RF venlafaxine [Effexor XR] 150 mg capsule,extended release 24hr 300 mg PO DAILY 90 Days Qty: 180 2RF Xarelto 15 mg tablet 15 mg PO QPMWITHMEAL 90 Days Qty: 90 2RF Rx Instructions: must administer with evening meal bumetanide 1 mg tablet 1 mg PO DAILY 90 Days Qty: 90 1RF Eucrisa 2 % ointment 1 applic topical BID 14 Days Qty: 100 0RF Trelegy Ellipta 100-62.5-25 mcg blister with device 1 inh inhalation DAILY ceftriaxone 1 gram recon soln 1 g IM ONCE Qty: 1 0RF methylprednisolone acetate [Depo-Medrol] 40 mg/mL suspension 40 mg IM ONCE Qty: 0.5 0RF fluconazole 100 mg tablet 100 mg PO DAILY 10 Days Qty: 10 0RF cefdinir 300 mg capsule 300 mg PO BID 10 Days Qty: 20 0RF hydrocodone-acetaminophen 10-325 mg tablet 1 tab PO Q8H PRN (Reason: Pain) Qty: 30 0RF azithromycin [Zithromax Z-Jason] 250 mg tablet See Rx Instructions PO .COMPLEX Qty: 6 0RF Rx Instructions: For 250 mg dose pack: take 500 mg today (day 1), then 250 mg for 4 days (days 2-5) PO spironolactone 25 mg tablet 25 mg PO DAILY 90 Days Qty: 90 1RF bisoprolol fumarate 5 mg tablet 5 mg PO DAILY 90 Days Qty: 90 1RF tizanidine [Zanaflex] 4 mg tablet 4 mg PO QID 90 Days Qty: 360 1RF montelukast 10 mg tablet 10 mg PO PM 90 Days Qty: 90 1RF pramipexole 1.5 MG tablet 1.5 mg PO TID dexlansoprazole [Dexilant] 60 mg capsule,biphase delayed releas 60 mg PO DAILY diclofenac sodium [Pennsaid] 20 mg/gram /actuation(2 %) solution in metered- dose pump 2 pump topical BID Rx Instructions: apply to single affected knee Referrals Follow up/Referrals: Sandra Orozco APRN [Primary Care Provider] - See instructions Clinical Impressions Clinical Impression: Acute exacerbation of chronic obstructive pulmonary disease, Acute hypoxic respiratory failure Discharge ED Provider: Julia Benjamin [facility] General Chief Complaint: Shortness of Breath/Dyspnea Stated Complaint: v/d not eaten since 05/09 Time Seen by Provider: 05/15/23 13:52 Mode of Arrival: Ambulatory Source of Information: Patient Limitations: No Limitations Description of Symptoms (Recalled from ER Triage Doc. by RN): Patient reports shortness of breath since Saturday that has increasingly gotten worse. Also complains of diarrhea and not being able to eat. States that she wears oxygen at night sometimes and that she has been requiring it during the day since Saturday. History of Present Illness HPI narrative: Patient is a 63-year-old female with a history of COPD wears oxygen at night presents today with worsening cough shortness of breath and wheezing over the last several days. Also complains of a mild headache some nausea and has had some diarrhea. No fevers or chills that she is aware of. Does have some mild chest pain associated with coughing. No exertional chest pain. Related Data Home Medications Medication Instructions Recorded Confirmed albuterol sulfate 90 mcg/actuation 1 inh inhalation QIDP PRN 08/10/20 05/03/23 aerosol inhaler (Ventolin HFA) Shortness Of Breath pramipexole 1.5 mg tablet 1.5 mg PO TID parkinsons disease 03/08/21 05/03/23 albuterol sulfate 2.5 mg/3 mL 2.5 mg inhalation Q6H PRN 11/19/22 05/03/23 (0.083 %) solution for nebulization Breathing Problems budesonide 1 mg/2 mL suspension 1 mg inhalation BID PRN Breathing 11/19/22 05/03/23 for nebulization Problems dexlansoprazole 60 mg 60 mg PO DAILY stomach 11/20/22 05/03/23 capsule,biphase delayed release (Dexilant) diclofenac sodium 20 2 pump topical BID Pain 11/20/22 05/03/23 mg/gram/actuation (2 %) topical soln metered-dose pump (Pennsaid) fluticasone fur. 100 mcg-umeclid 1 inh inhalation DAILY 05/01/23 05/03/23 62.5 mcg-vilant 25 mcg inhalat.powder (Trelegy Ellipta) Previous Rx's Medication Instructions Recorded primidone 50 mg tablet 5 mg (0.1 x 50 mg) PO TID PRN 11/19/22 circulation #30 tabs rivaroxaban 15 mg tablet (Xarelto) 15 mg PO QPMWITHMEAL Blood thinner 12/24/22 90 days #90 tabs bumetanide 1 mg tablet 1 mg PO DAILY 90 days #90 tabs 03/18/23 crisaborole 2 % topical ointment 1 applic topical BID 14 days #100 03/18/23 (Eucrisa) grams bisoprolol fumarate 5 mg tablet 5 mg PO DAILY Hypertension 90 days 03/27/23 #90 tabs clotrimazole-betamethasone 1 1 applic topical BID 14 days #45 03/27/23 %-0.05 % topical cream grams dicyclomine 10 mg capsule 10 mg PO QID 90 days #360 caps 03/27/23 levocetirizine 5 mg tablet 5 mg PO HS Allergy symptoms 90 03/27/23 days #90 tabs montelukast 10 mg tablet 10 mg PO PM ALLERGIES 90 days #90 03/27/23 tabs potassium chloride 10 mEq 10 meq PO DAILY 90 days #90 caps 03/27/23 capsule,extended release spironolactone 25 mg tablet 25 mg PO DAILY Fluid 90 days #90 03/27/23 tabs tizanidine 4 mg tablet (Zanaflex) 4 mg PO QID 90 days #360 tabs 03/27/23 venlafaxine 150 mg 300 mg (2 x 150 mg) PO DAILY 90 03/29/23 capsule,extended release 24 hr days #180 caps (Effexor XR) hydrocodone 10 mg-acetaminophen 1 tab PO Q8H PRN Pain #30 tabs 05/01/23 325 mg tablet cefdinir 300 mg capsule 300 mg PO BID 10 days #20 caps 05/03/23 fluconazole 100 mg tablet 100 mg PO DAILY 10 days #10 tabs 05/03/23 azithromycin 250 mg tablet See Rx Instructions PO .COMPLEX #6 05/07/23 (Zithromax Z-Jason) tabs Allergies Allergy/AdvReac Type Severity Reaction Status Date / Time celecoxib [From Celebrex] Allergy Severe RECTAL Verified 05/03/23 15:27 BLEEDING leflunomide Allergy Severe X-TBRLHE-UWKA/THROAT,TINGLING Verified 05/03/23 15:27 OF HANDS, SORE THROAT nortriptyline Allergy Severe Weakness Verified 05/03/23 15:27 cefdinir Allergy Intermediate I-ITCHING Verified 05/03/23 15:27 ciprofloxacin Allergy Intermediate I-HIVES, Verified 05/03/23 15:27 ITCHING gabapentin Allergy Intermediate BODY Verified 05/03/23 15:27 SWELLING nitrofurantoin Allergy Intermediate I-HIVES, Verified 05/03/23 15:27 [From Macrobid] ITCHING budesonide Allergy Mild Swelling Verified 05/03/23 15:27 [From Breztri Aerosphere] of Lip/Tongue/Throat formoterol Allergy Mild Swelling Verified 05/03/23 15:27 [From Breztri Aerosphere] of Lip/Tongue/Throat glycopyrrolate Allergy Mild Swelling Verified 05/03/23 15:27 [From Breztri Aerosphere] of Lip/Tongue/Throat naproxen [From NAPROSYN] Allergy Unknown THROAT Verified 05/03/23 15:27 SWELLS Penicillins Allergy Verified 05/03/23 15:27 tramadol Allergy Other Verified 05/03/23 15:27 levofloxacin [From Levaquin] AdvReac Intermediate HYPER , Verified 05/03/23 15:27 SHAKES dexamethasone AdvReac Mild SHAKES Verified 05/03/23 15:27 PFSH PFS Disclaimer: The information contained in this section may have been updated after the patient was seen, as this information can be updated by other users. Medical History Anxiety Degenerative disc disease Depression Fibromyalgia History of transient ischemic attack (TIA) HLD (hyperlipidemia) HTN (hypertension) Irritable bowel syndrome (IBS) Restless leg syndrome Sleep apnea Spinal stenosis Tobacco abuse Surgical History History of cataract surgery History of partial hysterectomy History of removal of both ovaries History of tonsillectomy Hx of cholecystectomy Previous back surgery Family History Father Hypertension Coronary artery disease Mother Pancreatic cancer Social History Smoking Status: Current every day smoker tobacco type: cigarettes packs per day: 2 years smoked: 45 smoking status stop date: 2 months ago second hand exposure: Yes alcohol intake: former substance use type: denies use current occupational status: retired Travel in the last 8 weeks: None household members: none housing: house current occupational exposures/hazards: No caffeine: Yes ROS Obtained: Yes All systems reviewed & no additional complaints except as documented Physical Exam General General appearance: alert Respiratory Respiratory exam: Present other (Oxygen saturation 79% on room air 90% on 2 L 95% on 4 L which is what she is currently on diffuse expiratory wheezing with prolonged expiratory phase no significant respiratory distress) Cardiovascular Cardiovascular exam: Present regular rate Neurological Exam Neurological exam: Present alert and oriented X3 HEART Score HEART Score HEART Score assessment performed?: Yes History (anamnesis): Slightly suspicious ECG: Non-specific disturbance Age: 45-65 years Risk factors: 1-2 risk factors Troponin: </= normal limit HEART Score: 3 Critical Care Critical Care Time Critical Care Time: Yes Attestation: On 05/15/23, the high probability of a clinically significant, sudden or life threatening deterioration of the following system(s) required my full and direct attention, intervention and personal management. The time I documented below is in addition to time spent performing reported procedures but includes the following listed in this critical care notation. Total Time Total Critical Care Time: 35 Medical Decision Making Rashaad Inquiry Pt receiving controlled substance: No Vital Signs Vital Signs: 05/15/23 13:27 05/15/23 14:00 Temperature 98.0 F Temperature Source Oral Pulse Rate 64 Pulse Rate [Radial] 75 Respiratory Rate 22 Blood Pressure [Right Arm] 135/84 Blood Pressure Mean [Right Arm] 101 Blood Pressure Source [Right Arm] Automatic Cuff Blood Pressure Position [Right Arm] Sitting 02 Sat by Pulse Oximetry 79 L 96 Oxygen Delivery Method Room Air Lab Data Lab results reviewed: Yes I reviewed the patient's lab results. Labs: Lab Results 05/15/23 13:39: WBC 2.9 L, RBC 5.60 H, Hgb 13.0, Hct 42.6, MCV 76.0 L, MCH 23.3 L, MCHC 30.6 L, RDW 18.1 H, Plt Count 148, MPV 9.3, Neut % (Auto) 69.0, Lymph % (Auto) 24.9, [place] % (Auto) 5.0, Eos % (Auto) 0.5, Baso % (Auto) 0.7, Neut # (Auto) 2.0, Lymph # (Auto) 0.7, [place] # (Auto) 0.1, Eos # (Auto) 0.0, Baso # (Auto) 0.0, Sodium 136, Potassium 3.6, Chloride 99, Carbon Dioxide 30, Anion Gap 10.6, BUN 19 H, Creatinine 1.00, Estimated Creat Clear 69, Estimated GFR 56 L, Est GFR ( Amer) 67, Glucose 135 H, Calcium 8.6, Total Bilirubin 0.5, AST 42 H, ALT 18, Alkaline Phosphatase 141 H, Troponin I < 0.01, Total Protein 7.0, Albumin 4.0, Globulin 3.0, Albumin/Globulin Ratio 1.3 05/15/23 13:41: VBG pH 7.32, VBG pCO2 57.3 H, VBG pO2 33.0, VBG HCO3 29.1, VBG Total CO2 30.9 H, VBG O2 Saturation 57.9, VBG Base Excess 1.8, VBG Lactic Acid 2.2 H 05/15/23 13:39 05/15/23 13:39 Response Orders (Tests/Meds): ED MEDICATIONS Generic Name Dose Route Start Last Admin Trade Name Freq PRN Reason Stop Dose Admin Sodium Chloride 10 ml 05/15/23 13:42 Sodium Chloride 0.9% 10ml Flush Syringe IV 06/14/23 13:41 NEEDED PRN Maintain IV Site Discontinued Medications Generic Name Dose Route Start Last Admin Trade Name Addie PRN Reason Stop Dose Admin Albuterol/Ipratropium 3 ml 05/15/23 13:58 05/15/23 14:26 Ipratropium/Albuterol 3 Ml Neb IH 05/15/23 13:59 3 ml ONCE ONE Administration Dexamethasone Sodium Phosphate 10 mg 05/15/23 13:58 05/15/23 14:26 Dexamethasone 4mg/Ml 1ml Vial IV 05/15/23 13:59 10 mg ONCE ONE Administration Doxycycline Hyclate 100 mg 05/15/23 14:00 05/15/23 14:26 Doxycycline Hycl 100 Mg Tablet PO 05/15/23 14:01 100 mg ONCE ONE Administration Magnesium Sulfate 2 gm in 50 mls @ 50 mls/hr 05/15/23 13:58 05/15/23 14:26 Magnesium Sulfate 2gm/50ml Premix IV 05/15/23 14:57 50 mls/hr ONCE ONE Administration Ketorolac Tromethamine 15 mg 05/15/23 13:58 05/15/23 14:26 Ketorolac 30mg/Ml Vial IV 05/15/23 13:59 15 mg ONCE ONE Administration ORDERS Category Date Time Status Chest XR 2 view (NOT portable) [XR chest 2V] Stat Exams 05/15/23 13:41 Taken Complete Blood Count Auto Diff Stat Lab 05/15/23 13:39 Completed Comprehensive Metabolic Panel Stat Lab 05/15/23 13:39 Completed Lactate Venous Stat Lab 05/15/23 13:41 Completed Rapid PCR Covid and Flu A/B Stat Lab 05/15/23 14:14 Received Trop I [Troponin I] Stat Lab 05/15/23 13:39 Completed Troponin I Q3H Lab 05/15/23 17:00 Ordered Troponin I Q3H Lab 05/15/23 20:00 Ordered Blood Culture Stat Micro 05/15/23 14:25 Received Venous Blood Gas Stat RT 05/15/23 13:41 Completed MDM Narrative Medical Decision Narrative: 63-year-old female with above history consistent with a COPD exacerbation with worsening cough shortness of breath and wheezing. Her exam is consistent with this as well. Will give nebs steroids antibiotic magnesium also give Toradol for her headache and her chest discomfort. EKG was performed which shows a ventricular rate of 61 there are some T wave inversions in V2 and V3 but no acute ST abnormalities this is nonspecific there is a normal axis no conduction abnormalities. Unlikely that this is acute coronary syndrome is possible we will get a single troponin to rule this out. Chest x-ray will be performed to evaluate for possible pneumonia pneumothorax etc. Will reassess after her initial treatment is complete as is possible should be admitted depending on her response to therapy. Assessment 259 patient not significantly improved. She is still tachypneic still has diffuse expiratory wheezing. Given the fact that she has ongoing increased work of breathing in the setting of her hypoxic respiratory failure and COPD exacerbation we will admit her for further evaluation and treatment. I will discuss the case with Dr. Dirk Parikh for further management inpatient.
[2023-05-15 14:05] LABS: Alanine Aminotransferase 18 U/L (12-78); Albumin/Globulin Ratio 1.3 (1.1-1.8); Alkaline Phosphatase 141 U/L (38-126); Anion Gap 10.6 mEq/L (5-15); Aspartate Amino Transferase 42 U/L (14-36); Bilirubin,Total 0.5 mg/dl (0.2-1.3); Blood Urea Nitrogen 19 mg/dl (7-17); Calcium 8.6 mg/dl (8.4-10.2); Carbon Dioxide 30 mmol/L (22.0-30.0); Chloride 99 mmol/L (98-107); Creatinine Clearance Estimated 69 mL/min (50-200); Estimated Glomerular Filt Rate 56 ml/min (>60); GFR (African American) 67 ML/MIN (>60); Glucose 135 mg/dl (74-100); Potassium 3.6 mmoL/L (3.5-5.1); Sodium 136 mmol/L (136-145)
--- NOTE | 2023-05-15 14:07 | PC.NURSE ---
Respiratory notified of vbg.
--- NOTE | 2023-05-15 14:10 | ECG_ITS ---
APPROVED REPORT Exam: Resting ECG HR:61 bpm ECG Measurements Heart Rate 61 AXES IN 142 P 91 QRSd 94 QRS 76 QT 413 T 63 QTc [address] DEVIATION AND MODERATE T-WAVE ABNORMALITY, CONSIDER ANTERIOR ISCHEMIA [-0.1+ mV T-WAVE IN V3/V4] ABNORMAL ECG UNCONFIRMED REPORT Electronically signed by : Heron Benjamin, 05/15/2023 15:06:29
[2023-05-15 14:20] LABS: VBG PH 7.32 mmol/L (7.31-7.41)
[2023-05-15 14:21] LABS: VBG PCO2 57.3 mmol/L (35-51)
--- NOTE | 2023-05-15 14:21 | PC.NURSE ---
aware of pco2 57.3 and lactate of 2.21
[2023-05-15 14:22] LABS: Lactate Venous 2.2 mmol/L (0.4-2.0); VBG Base Excess 1.8 mmol/L (-2.4-2.3); VBG HCO3 29.1 mmol/L (23-30); VBG Oxygen Saturation 57.9 % (50-70); VBG Total CO2 30.9 mmol/L (23-27)
[2023-05-15] MEDS: DEXAMETHASONE 4MG/ML 1ML VIAL 10 MG IV (14:26)
[2023-05-15] MEDS: KETOROLAC 30MG/ML VIAL 15 MG IV (14:26)
[2023-05-15] MEDS: MAGNESIUM SULFATE IN WATER 2 GM/50 ML PIGGYBACK IV (14:26)
[2023-05-15] MEDS: IPRATROPIUM/ALBUTEROL 3 ML NEB IH ×2 (14:26→18:51)
[2023-05-15] MEDS: DOXYCYCLINE HYCL 100 MG TABLET PO (14:26)
[2023-05-15 14:30] LABS: Influenza A, PCR Not Detected (NotDetected); Influenza B, PCR Not Detected (NotDetected)
[2023-05-15 14:48] LABS: Troponin I < 0.01 ng/ml (0.00-0.034)
--- NOTE | 2023-05-15 15:05 | P.HP_ITS ---
[facility] Disclaimer: The information contained in this section may have been updated after the patient was seen, as this information can be updated by other users. Medical History Anxiety Degenerative disc disease Depression Fibromyalgia History of transient ischemic attack (TIA) HLD (hyperlipidemia) HTN (hypertension) Irritable bowel syndrome (IBS) Restless leg syndrome Sleep apnea Spinal stenosis Tobacco abuse Surgical History History of cataract surgery History of partial hysterectomy History of removal of both ovaries History of tonsillectomy Hx of cholecystectomy Previous back surgery Family History Father Hypertension Coronary artery disease Mother Pancreatic cancer Social History Smoking Status: Current every day smoker tobacco type: cigarettes packs per day: 2 years smoked: 45 smoking status stop date: 2 months ago second hand exposure: Yes alcohol intake: former substance use type: denies use current occupational status: retired Travel in the last 8 weeks: None household members: none housing: house current occupational exposures/hazards: No caffeine: Yes Meds Home Medications and Allergies Home Medications Medication Instructions Recorded Confirmed Type albuterol sulfate 90 mcg/actuation 1 inh inhalation QIDP PRN 08/10/20 05/03/23 History aerosol inhaler (Ventolin HFA) Shortness Of Breath pramipexole 1.5 mg tablet 1.5 mg PO TID parkinsons disease 03/08/21 05/03/23 History albuterol sulfate 2.5 mg/3 mL 2.5 mg inhalation Q6H PRN 11/19/22 05/03/23 History (0.083 %) solution for nebulization Breathing Problems budesonide 1 mg/2 mL suspension 1 mg inhalation BID PRN Breathing 11/19/22 05/03/23 History for nebulization Problems primidone 50 mg tablet 5 mg (0.1 x 50 mg) PO TID PRN 11/19/22 05/03/23 Rx circulation #30 tabs dexlansoprazole 60 mg 60 mg PO DAILY stomach 11/20/22 05/03/23 History capsule,biphase delayed release (Dexilant) diclofenac sodium 20 2 pump topical BID Pain 11/20/22 05/03/23 History mg/gram/actuation (2 %) topical soln metered-dose pump (Pennsaid) rivaroxaban 15 mg tablet (Xarelto) 15 mg PO QPMWITHMEAL Blood thinner 12/24/22 05/03/23 Rx 90 days #90 tabs bumetanide 1 mg tablet 1 mg PO DAILY 90 days #90 tabs 03/18/23 05/03/23 Rx crisaborole 2 % topical ointment 1 applic topical BID 14 days #100 03/18/23 05/03/23 Rx (Eucrisa) grams bisoprolol fumarate 5 mg tablet 5 mg PO DAILY Hypertension 90 days 03/27/23 05/03/23 Rx #90 tabs clotrimazole-betamethasone 1 1 applic topical BID 14 days #45 03/27/23 05/03/23 Rx %-0.05 % topical cream grams dicyclomine 10 mg capsule 10 mg PO QID 90 days #360 caps 03/27/23 05/03/23 Rx levocetirizine 5 mg tablet 5 mg PO HS Allergy symptoms 90 03/27/23 05/03/23 Rx days #90 tabs montelukast 10 mg tablet 10 mg PO PM ALLERGIES 90 days #90 03/27/23 05/03/23 Rx tabs potassium chloride 10 mEq 10 meq PO DAILY 90 days #90 caps 03/27/23 05/03/23 Rx capsule,extended release spironolactone 25 mg tablet 25 mg PO DAILY Fluid 90 days #90 03/27/23 05/03/23 Rx tabs tizanidine 4 mg tablet (Zanaflex) 4 mg PO QID 90 days #360 tabs 03/27/23 05/03/23 Rx venlafaxine 150 mg 300 mg (2 x 150 mg) PO DAILY 90 03/29/23 05/03/23 Rx capsule,extended release 24 hr days #180 caps (Effexor XR) fluticasone fur. 100 mcg-umeclid 1 inh inhalation DAILY 05/01/23 05/03/23 History 62.5 mcg-vilant 25 mcg inhalat.powder (Trelegy Ellipta) hydrocodone 10 mg-acetaminophen 1 tab PO Q8H PRN Pain #30 tabs 05/01/23 05/03/23 Rx 325 mg tablet cefdinir 300 mg capsule 300 mg PO BID 10 days #20 caps 05/03/23 05/03/23 Rx fluconazole 100 mg tablet 100 mg PO DAILY 10 days #10 tabs 05/03/23 05/03/23 Rx azithromycin 250 mg tablet See Rx Instructions PO .COMPLEX #6 05/07/23 Rx (Zithromax Z-Jason) tabs New Prescriptions to Start Prescriptions: Allergies Allergy/AdvReac Type Severity Reaction Status Date / Time celecoxib [From Celebrex] Allergy Severe RECTAL Verified 05/03/23 15:27 BLEEDING leflunomide Allergy Severe T-HDVBCM-RJJD/THROAT,TINGLING Verified 05/03/23 15:27 OF HANDS, SORE THROAT nortriptyline Allergy Severe Weakness Verified 05/03/23 15:27 cefdinir Allergy Intermediate I-ITCHING Verified 05/03/23 15:27 ciprofloxacin Allergy Intermediate I-HIVES, Verified 05/03/23 15:27 ITCHING gabapentin Allergy Intermediate BODY Verified 05/03/23 15:27 SWELLING nitrofurantoin Allergy Intermediate I-HIVES, Verified 05/03/23 15:27 [From Macrobid] ITCHING budesonide Allergy Mild Swelling Verified 05/03/23 15:27 [From Breztri Aerosphere] of Lip/Tongue/Throat formoterol Allergy Mild Swelling Verified 05/03/23 15:27 [From Breztri Aerosphere] of Lip/Tongue/Throat glycopyrrolate Allergy Mild Swelling Verified 05/03/23 15:27 [From Breztri Aerosphere] of Lip/Tongue/Throat naproxen [From NAPROSYN] Allergy Unknown THROAT Verified 05/03/23 15:27 SWELLS Penicillins Allergy Verified 05/03/23 15:27 tramadol Allergy Other Verified 05/03/23 15:27 levofloxacin [From Levaquin] AdvReac Intermediate HYPER , Verified 05/03/23 15:27 SHAKES dexamethasone AdvReac Mild SHAKES Verified 05/03/23 15:27 Exam Data for Last 24 hours Vital signs and Labs for Last 24 Hours: Temp Pulse Resp BP Pulse Ox O2 Del Method 98.0 F 64 22 135/84 96 Room Air 05/15/23 13:27 05/15/23 14:00 05/15/23 13:27 05/15/23 13:27 05/15/23 14:00 05/15/23 13:27 Laboratory Results - last 24 hr 05/15/23 13:39: WBC 2.9 L, RBC 5.60 H, Hgb 13.0, Hct 42.6, MCV 76.0 L, MCH 23.3 L, MCHC 30.6 L, RDW 18.1 H, Plt Count 148, MPV 9.3, Neut % (Auto) 69.0, Lymph % (Auto) 24.9, Coleman % (Auto) 5.0, Eos % (Auto) 0.5, Baso % (Auto) 0.7, Neut # (Auto) 2.0, Lymph # (Auto) 0.7, Coleman # (Auto) 0.1, Eos # (Auto) 0.0, Baso # (Auto) 0.0, Sodium 136, Potassium 3.6, Chloride 99, Carbon Dioxide 30, Anion Gap 10.6, BUN 19 H, Creatinine 1.00, Estimated Creat Clear 69, Estimated GFR 56 L, Est GFR ( Amer) 67, Glucose 135 H, Calcium 8.6, Total Bilirubin 0.5, AST 42 H, ALT 18, Alkaline Phosphatase 141 H, Troponin I < 0.01, Total Protein 7.0, Albumin 4.0, Globulin 3.0, Albumin/Globulin Ratio 1.3 05/15/23 13:41: VBG pH 7.32, VBG pCO2 57.3 H, VBG pO2 33.0, VBG HCO3 29.1, VBG Total CO2 30.9 H, VBG O2 Saturation 57.9, VBG Base Excess 1.8, VBG Lactic Acid 2.2 H I & O for Last 24 hours: Intake & Output 05/12/23 05/13/23 05/14/23 05/15/23 23:59 23:59 23:59 23:59 Weight 78.018 kg
--- NOTE | 2023-05-15 15:05 | PC.NURSE ---
called charge for bed. pt going to [facility]. admission called.
--- NOTE | 2023-05-15 15:17 | PC.NURSE ---
Report called to BERNICE Barlow on Med Surg.
--- NOTE | 2023-05-15 15:29 | PC.NURSE ---
CALLED LAB TO CHECK ON SWAB LIZY STATED THERE WAS A SWAB RUNNING WITH 15 MINUTES LEFT THEM THIS ON WOULD BE PUT ON NEXT
--- NOTE | 2023-05-15 15:39 | PC.NURSE ---
arrived by w/c from ED
[2023-05-15 16:13] LABS: Coronavirus 19, PCR Detected (NotDetected)
[2023-05-15 17:39] LABS: Troponin I < 0.01 ng/ml (0.00-0.034)
[2023-05-15 19:33] LABS: Lactate Venous 1.2 mmol/L (0.4-2.0)
--- NOTE | 2023-05-15 19:40 | P.HP_ITS ---
History of Present Illness *Admission Date: 05/15/23 *Reason for visit:: COVID/ COPD exacerbation *History of present illness: 63 year old female presented to [facility] ED for c/o diarrhea, SOA, fevers, and headache since Saturday morning. PMHX of COPD (2L at night baseline), PAD, tobacco abuse, anxiety, depression, HLD, HTN, and rest leg syndrome. The pt states that she has been sweating on and off since Saturday. She decided to come to the ED today because her symptoms were not improving. Her ED workup revealed neutropenia 2.9, PCO2 of 57.3, negative troponins, and her chest xray revealed bilateral atelectasis. The ED physician consulted the hospitalist team for further medical management. I admitted the pt to the medical floor. Currently she is requiring 3L of NC. She is covid poisitive upon admission. She will receive steroids, remdesivir, and treatment for associated symptoms. [facility] Disclaimer: The information contained in this section may have been updated after the silva ent was seen, as this information can be updated by other users. Medical History (Updated 05/15/23 @ 20:02 by SUNG Howe) Spinal stenosis Degenerative disc disease Anxiety Depression Fibromyalgia Sleep apnea Restless leg syndrome History of transient ischemic attack (TIA) Irritable bowel syndrome (IBS) Tobacco abuse HLD (hyperlipidemia) HTN (hypertension) Surgical History History of tonsillectomy History of cataract surgery Previous back surgery Hx of cholecystectomy History of removal of both ovaries History of partial hysterectomy Family History Father Hypertension Coronary artery disease Mother Pancreatic cancer Social History (Updated 05/15/23 @ 15:58 by Mally Kaiser RN) Smoking Status: Current every day smoker tobacco type: cigarettes packs per day: 2 years smoked: 45 smoking status stop date: 2 months ago second hand exposure: Yes alcohol intake: former substance use type: denies use current occupational status: retired Travel in the last 8 weeks: None household members: none housing: house current occupational exposures/hazards: No caffeine: Yes Review of Systems Review of Systems Review of systems:: pertinent systems reviewed and negative unless documented below Constitutional Constitutional: Reports body ache(s) and Reports night sweats *Cardiovascular Cardiovascular: Reports dyspnea *Respiratory Respiratory: Reports dyspnea Meds Home Medications and Allergies Home Medications Medication Instructions Recorded Confirmed Type albuterol sulfate 90 mcg/actuation 1 inh inhalation QIDP PRN 08/10/20 05/15/23 History aerosol inhaler (Ventolin HFA) Shortness Of Breath pramipexole 1.5 mg tablet 1.5 mg PO BID parkinsons disease 03/08/21 05/15/23 History albuterol sulfate 2.5 mg/3 mL 2.5 mg inhalation Q6H PRN 11/19/22 05/15/23 History (0.083 %) solution for nebulization Breathing Problems budesonide 1 mg/2 mL suspension 1 mg inhalation BID PRN Breathing 11/19/22 05/15/23 History for nebulization Problems primidone 50 mg tablet 5 mg (0.1 x 50 mg) PO TID PRN 11/19/22 05/15/23 Rx circulation #30 tabs dexlansoprazole 60 mg 60 mg PO DAILY stomach 11/20/22 05/15/23 History capsule,biphase delayed release (Dexilant) rivaroxaban 15 mg tablet (Xarelto) 15 mg PO QPMWITHMEAL Blood thinner 12/24/22 05/15/23 Rx 90 days #90 tabs bisoprolol fumarate 5 mg tablet 5 mg PO DAILY Hypertension 90 days 03/27/23 05/15/23 Rx #90 tabs dicyclomine 10 mg capsule 10 mg PO QID 90 days #360 caps 03/27/23 05/15/23 Rx levocetirizine 5 mg tablet 5 mg PO HS Allergy symptoms 90 03/27/23 05/15/23 Rx days #90 tabs montelukast 10 mg tablet 10 mg PO PM ALLERGIES 90 days #90 03/27/23 05/15/23 Rx tabs potassium chloride 10 mEq 10 meq PO DAILY 90 days #90 caps 03/27/23 05/15/23 Rx capsule,extended release spironolactone 25 mg tablet 25 mg PO DAILY Fluid 90 days #90 03/27/23 05/15/23 Rx tabs tizanidine 4 mg tablet (Zanaflex) 4 mg PO QID 90 days #360 tabs 03/27/23 05/15/23 Rx venlafaxine 150 mg 300 mg (2 x 150 mg) PO DAILY 90 03/29/23 05/15/23 Rx capsule,extended release 24 hr days #180 caps (Effexor XR) hydrocodone 10 mg-acetaminophen 1 tab PO Q8H PRN Pain #30 tabs 05/01/23 05/15/23 Rx 325 mg tablet tiotropium bromide 2.5 2 puff inhalation DAILY 05/15/23 05/15/23 History mcg/actuation mist for inhalation (Spiriva Respimat) New Prescriptions to Start Prescriptions: Allergies Allergy/AdvReac Type Severity Reaction Status Date / Time celecoxib [From Celebrex] Allergy Severe RECTAL Verified 05/15/23 16:24 BLEEDING leflunomide Allergy Severe [id number]/THROAT,TINGLING Verified 05/15/23 16:24 OF HANDS, SORE THROAT nortriptyline Allergy Severe Weakness Verified 05/15/23 16:24 cefdinir Allergy Intermediate I-ITCHING Verified 05/15/23 16:24 ciprofloxacin Allergy Intermediate I-HIVES, Verified 05/15/23 16:24 ITCHING gabapentin Allergy Intermediate BODY Verified 05/15/23 16:24 SWELLING nitrofurantoin Allergy Intermediate I-HIVES, Verified 05/15/23 16:24 [From Macrobid] ITCHING budesonide Allergy Mild Swelling Verified 05/15/23 16:24 [From Breztri Aerosphere] of Lip/Tongue/Throat formoterol Allergy Mild Swelling Verified 05/15/23 16:24 [From Breztri Aerosphere] of Lip/Tongue/Throat glycopyrrolate Allergy Mild Swelling Verified 05/15/23 16:24 [From Breztri Aerosphere] of Lip/Tongue/Throat naproxen [From NAPROSYN] Allergy Unknown THROAT Verified 05/15/23 16:24 SWELLS Penicillins Allergy Verified 05/15/23 16:24 tramadol Allergy Other Verified 05/15/23 16:24 levofloxacin [From Levaquin] AdvReac Intermediate HYPER , Verified 05/15/23 16:24 SHAKES dexamethasone AdvReac Mild SHAKES Verified 05/15/23 16:24 Exam Data for Last 24 hours Vital signs and Labs for Last 24 Hours: Temp Pulse Resp BP Pulse Ox O2 Del Method O2 Flow Rate 97.7 F 64 18 107/58 L 95 Nasal Cannula 3 05/15/23 16:00 05/15/23 18:53 05/15/23 16:00 05/15/23 16:00 05/15/23 16:00 05/15/23 17:55 05/15/23 17:55 Laboratory Results - last 24 hr 05/15/23 13:39: WBC 2.9 L, RBC 5.60 H, Hgb 13.0, Hct 42.6, MCV 76.0 L, MCH 23.3 L, MCHC 30.6 L, RDW 18.1 H, Plt Count 148, MPV 9.3, Neut % (Auto) 69.0, Lymph % (Auto) 24.9, [place] % (Auto) 5.0, Eos % (Auto) 0.5, Baso % (Auto) 0.7, Neut # (Auto) 2.0, Lymph # (Auto) 0.7, [place] # (Auto) 0.1, Eos # (Auto) 0.0, Baso # (Auto) 0.0, Sodium 136, Potassium 3.6, Chloride 99, Carbon Dioxide 30, Anion Gap 10.6, BUN 19 H, Creatinine 1.00, Estimated Creat Clear 69, Estimated GFR 56 L, Est GFR ( Amer) 67, Glucose 135 H, Calcium 8.6, Total Bilirubin 0.5, AST 42 H, ALT 18, Alkaline Phosphatase 141 H, Troponin I < 0.01, Total Protein 7.0, Albumin 4.0, Globulin 3.0, Albumin/Globulin Ratio 1.3 05/15/23 13:41: VBG pH 7.32, VBG pCO2 57.3 H, VBG pO2 33.0, VBG HCO3 29.1, VBG Total CO2 30.9 H, VBG O2 Saturation 57.9, VBG Base Excess 1.8, VBG Lactic Acid 2.2 H 05/15/23 14:14: SARS-CoV-2 (PCR) Detected A, Influenza A Untype (PCR) Not detected, Influenza Type B (PCR) Not detected 05/15/23 16:49: Troponin I < 0.01 05/15/23 18:30: VBG Lactic Acid 1.2 I & O for Last 24 hours: Intake & Output 05/12/23 05/13/23 05/14/23 05/15/23 23:59 23:59 23:59 23:59 Intake Total 240 / 240 Balance 240 / 240 Weight 73.68 kg Constitutional Constitutional: chronically ill appearing *Routine HEENT Exam Head: Present normocephalic Eye: Present EOMI ENT: Present mucous membranes dry *Routine Neck Exam Neck: Present full ROM *Routine Respiratory Exam Respiratory: Present wheezes and symmetric chest movement *Routine Cardiovascular Exam Cardiovascular: Present RRR *Routine Abdominal Exam Abdominal: Present soft and normoactive bowel sounds; Absent tenderness *Routine Rectal Exam Rectal:: deferred *Routine Genitalia Exam Genitalia:: deferred *Routine Extremities Exam Extremities: Present full ROM and pulses intact *Routine Skin Exam Skin: Present intact *Routine Neurological Exam Neurological: Present alert and oriented X3 Assessment and Plan *Assessment and plan (1) COVID: Status: Acute Category: Medical Code(s): U07.1 - COVID-19 (2) Acute hypoxic respiratory failure: Status: Acute Category: Medical Code(s): J96.01 - Acute respiratory failure with hypoxia (3) Acute exacerbation of chronic obstructive pulmonary disease: Status: Acute Category: Medical Code(s): J44.1 - Chronic obstructive pulmonary disease with (acute) exacerbation (4) HTN (hypertension): Status: Chronic Qualifiers: Hypertension type: essential hypertension Qualified Code(s): I10 - Essential (primary) hypertension Category: Medical Code(s): I10 - Essential (primary) hypertension (5) HLD (hyperlipidemia): Status: Chronic Qualifiers: Hyperlipidemia type: unspecified Qualified Code(s): E78.5 - Hyperlip idemia, unspecified Category: Medical Code(s): E78.5 - Hyperlipidemia, unspecified (6) PAD (peripheral artery disease): Status: Acute Category: Medical Code(s): I73.9 - Peripheral vascular disease, unspecified (7) Edema: Status: Acute Category: Medical Code(s): R60.9 - Edema, unspecified (8) Anxiety: Status: Acute Category: Medical Code(s): F41.9 - Anxiety disorder, unspecified (9) Tobacco abuse: Status: Acute Category: Medical Code(s): Z72.0 - Tobacco use Plan 63 year old female presented to [facility] ED for c/o diarrhea, SOA, fevers, and headache since Saturday morning. PMHX of COPD (2L at night baseline), PAD, tobacco abuse, anxiety, depression, HLD, HTN, and rest leg syndrome. The pt states that she has been sweating on and off since Saturday. She decided to come to the ED today because her symptoms were not improving. Her ED workup revealed neutropenia 2.9, PCO2 of 57.3, negative troponins, and her chest xray revealed bilateral atelectasis. The ED physician consulted the hospitalist team for further medical management. I admitted the pt to the medical floor. Currently she is requiring 3L of NC. She is covid poisitive upon admission. She will receive steroids, remdesivir, and treatment for associated symptoms. COVID COPD EXACERBATION HYPOXIC RESP FAILURE -SOB, RODRIGUEZ, fever since Saturday -neutropenia 2.9 -> repeat cbc ordered for morning -PCO2 of 57.3-> 3L of nc, please maintain 02 above 92% -blood cultures, sputum cultures pending -airborne precautions -Continue Zinc sulfate 220mg, remdesivir 100mg, dexamethasone 6mg, ascorbic acid 500mg for COVID -tylenol 650mg PRN for pain/febrile -Duonebs q 6hr [facility] -chest xray reviewed and reveals bilateral atelectasis. No pneumothorax, enlargement of heart, or infectious opacities. Will continue to treat for viral illness HTN HLD PAD EDEMA ANXIETY -continue effexor 300mg, rivaroxaban 15mg, primidone 5mg, pramipexole 1.5mg, singulair 10mg, [place] 10mg, Ergocalciferol 50,000 units TOBACCO ABUSE -complicates aspects of care -nicotine patch prn FULL CODE CARDIAC DIET DVT: XARELTO 15MG Rounded on patient before nurse practitioner. Personally examined and interviewed patient. Agree with exam findings and care plan as documented.
[2023-05-15] MEDS: REMDESIVIR 200 MG in 0.9 % SODIUM CHLORIDE 250 ML 250 MG IV (20:31)
[2023-05-15] MEDS: FAMOTIDINE 20MG TABLET 20 MG PO (20:32)
[2023-05-15] MEDS: ASCORBIC ACID 500MG TAB 500 MG PO (20:32)
[2023-05-15] MEDS: ERGOCALCIFEROL 50,000 UNITS (1.25MG) CAPSULE 50000 UNIT PO (20:32)
[2023-05-15] MEDS: HYDROCODONE 10MG/APAP 325MG TAB 1 TAB PO (20:33)
[2023-05-15 21:13] LABS: Troponin I < 0.01 ng/ml (0.00-0.034)
[2023-05-16] VITALS (10 sets, daily range): BP systolic 90–136; BP diastolic 48–99; PULSE 50–75; RESP 17–22; TEMP 36.4–37.1; O2SAT 90–96; BMI 31.8
[2023-05-16] MEDS: IPRATROPIUM/ALBUTEROL 3 ML NEB IH ×2 (00:42→06:40)
[2023-05-16] MEDS: HYDROCODONE 10MG/APAP 325MG TAB 1 TAB PO ×2 (04:50→13:53)
--- NOTE | 2023-05-16 04:56 | PC.NURSE ---
Pt is alert and oriented. Uncomfortable in the bed, up to recliner to sleep. Pt remains on 3L NC, O2 sat >90%. Lung sounds wheezing. Ambulates to the restroom. Airborne/contact precautions for COVID+. Has complained of pain twice, treated per mar. Pt has had no other complaints. Call light in reach.
[2023-05-16 06:07] LABS: Basophils % 0.7 % (0.1-2.0); Hematocrit 37.3 % (37.0-47.0); Lymphocytes # 0.3 K/mm3 (0.7-4.5); Lymphocytes % 26.6 % (10-50); Mean Corpuscular HGB Conc 30.7 g/dL (31.8-35.4); Mean Corpuscular Hemoglobin 23.1 pg (27.0-31.2); Mean Corpuscular Volume 75.5 fl (81-99); Mean Platelet Volume 8.8 fl (7.4-10.4); Monocytes % 2.5 % (1.7-9.3); Neutrophils # 0.9 K/mm3 (1.8-7.8); Neutrophils % 70.2 % (37.0-80.0); Platelet Count 134 K/mm3 (142-424); Red Blood Count 4.94 M/mm3 (4.20-5.40); White Blood Count 1.3 K/mm3 (4.8-10.8)
[2023-05-16 06:13] LABS: Alanine Aminotransferase 14 U/L (12-78); Albumin Level 3.3 g/dl (3.5-5.0); Albumin/Globulin Ratio 1.2 (1.1-1.8); Alkaline Phosphatase 120 U/L (38-126); Anion Gap 7.4 mEq/L (5-15); Aspartate Amino Transferase 35 U/L (14-36); Bilirubin,Total 0.2 mg/dl (0.2-1.3); Blood Urea Nitrogen 24 mg/dl (7-17); Calcium 7.9 mg/dl (8.4-10.2); Carbon Dioxide 30 mmol/L (22.0-30.0); Chloride 101 mmol/L (98-107); Creatinine Clearance Estimated 65 mL/min (50-200); Estimated Glomerular Filt Rate 63 ml/min (>60); GFR (African American) 76 ML/MIN (>60); Globulin 2.7 g/dL (1.3-3.2); Glucose 149 mg/dl (74-100); Magnesium 2.4 mg/dl (1.6-2.3); Potassium 3.4 mmoL/L (3.5-5.1); Sodium 135 mmol/L (136-145)
[2023-05-16 06:14] LABS: Hemoglobin 11.4 g/dL (12.2-16.2)
--- NOTE | 2023-05-16 07:35 | HMH.PHAINT1 ---
Pharmacy Intervention Comments: Verified home medications using external fill history and spoke with patient at bedside; patient is a poor historian. Of note, she said she only takes primidone when her tremors get really bad - she takes it for a couple of days and then stops when the tremors go away. She admitted to not taking her budesonide inhaler regularly; stated she takes 1/2 tablet hydrocodone/APAP 10/325mg tablet ~2x/day.
--- NOTE | 2023-05-16 07:51 | EXP.ACUTE.PN ---
Subjective *Date: 05/16/23 *Time: 11:45 Interval history: Feeling weak this morning and short of breath. No nausea or vomiting but does complain of heartburn. No fever overnight. On 3 L. Medical Exam Vital signs and Labs for Last 24 Hours: Vital Signs Temp Pulse Pulse Resp BP BP Pulse Ox 05/16/23 06:44 05/16/23 06:40 65 05/16/23 06:40 62 05/16/23 06:40 96 05/16/23 05:00 05/16/23 04:00 98.7 F 68 17 90/48 L 94 L 05/16/23 04:00 103/61 L 05/16/23 04:00 70 05/16/23 03:00 05/16/23 01:00 05/16/23 00:43 65 05/16/23 00:43 68 05/16/23 00:00 50 L 05/16/23 00:00 98.6 F 68 17 122/74 90 L 05/15/23 23:00 05/15/23 21:00 05/15/23 20:00 05/15/23 20:00 70 05/15/23 19:51 98.9 F 68 21 107/49 L 93 L 05/15/23 18:53 64 05/15/23 18:53 69 05/15/23 17:55 05/15/23 17:00 05/15/23 16:00 97.7 F 62 18 107/58 L 95 05/15/23 15:32 98.0 F 64 22 107/58 L 05/15/23 14:00 64 96 05/15/23 13:27 98.0 F 75 22 135/84 79 L O2 Del Method O2 Flow Rate 05/16/23 06:44 Nasal Cannula 3 05/16/23 06:40 05/16/23 06:40 05/16/23 06:40 Nasal Cannula 4 05/16/23 05:00 Nasal Cannula 3 05/16/23 04:00 Nasal Cannula 3 05/16/23 04:00 05/16/23 04:00 05/16/23 03:00 Nasal Cannula 3 05/16/23 01:00 Nasal Cannula 3 05/16/23 00:43 05/16/23 00:43 05/16/23 00:00 05/16/23 00:00 Nasal Cannula 3 05/15/23 23:00 Nasal Cannula 3 05/15/23 21:00 Nasal Cannula 3 05/15/23 20:00 Nasal Cannula 3 05/15/23 20:00 05/15/23 19:51 Nasal Cannula 3 05/15/23 18:53 05/15/23 18:53 05/15/23 17:55 Nasal Cannula 3 05/15/23 17:00 Nasal Cannula 4 05/15/23 16:00 Nasal Cannula 3 05/15/23 15:32 Nasal Cannula 4 05/15/23 14:00 05/15/23 13:27 Room Air Intake and Output 05/15/23 05/15/23 05/16/23 15:59 23:59 07:59 Intake Total 240 / 490 250 / 250 Output Total 0 / 0 Balance 240 / 490 250 / 250 Intake: Intake, Oral Amount 240 / 240 Intake, Total IV Amount 250 / 250 Remdesivir 200 mg In 0.9 % 250 / 250 Sodium Chloride 250 ml @ 250 mls/hr IV ONCE ONE Rx#:[id number] Output: Output, Urine Amount 0 / 0 Other: Number of Unmeasured Voids 1 Weight 78.018 kg 73.68 kg 73.68 kg Patient Weight 05/16/23 23:59 Weight 73.68 kg Laboratory Results - last 24 hr 05/15/23 13:39: WBC 2.9 L, RBC 5.60 H, Hgb 13.0, Hct 42.6, MCV 76.0 L, MCH 23.3 L, MCHC 30.6 L, RDW 18.1 H, Plt Count 148, MPV 9.3, Neut % (Auto) 69.0, Lymph % (Auto) 24.9, [place] % (Auto) 5.0, Eos % (Auto) 0.5, Baso % (Auto) 0.7, Neut # (Auto) 2.0, Lymph # (Auto) 0.7, [place] # (Auto) 0.1, Eos # (Auto) 0.0, Baso # (Auto) 0.0, Sodium 136, Potassium 3.6, Chloride 99, Carbon Dioxide 30, Anion Gap 10.6, BUN 19 H, Creatinine 1.00, Estimated Creat Clear 69, Estimated GFR 56 L, Est GFR ( Amer) 67, Glucose 135 H, Calcium 8.6, Total Bilirubin 0.5, AST 42 H, ALT 18, Alkaline Phosphatase 141 H, Troponin I < 0.01, Total Protein 7.0, Albumin 4.0, Globulin 3.0, Albumin/Globulin Ratio 1.3 05/15/23 13:41: VBG pH 7.32, VBG pCO2 57.3 H, VBG pO2 33.0, VBG HCO3 29.1, VBG Total CO2 30.9 H, VBG O2 Saturation 57.9, VBG Base Excess 1.8, VBG Lactic Acid 2.2 H 05/15/23 14:14: SARS-CoV-2 (PCR) Detected A, Influenza A Untype (PCR) Not detected, Influenza Type B (PCR) Not detected 05/15/23 16:49: Troponin I < 0.01 05/15/23 18:30: VBG Lactic Acid 1.2 05/15/23 20:15: Troponin I < 0.01 05/16/23 05:10: WBC 1.3 L* D, RBC 4.94, Hgb 11.4 L D, Hct 37.3, MCV 75.5 L, MCH 23.1 L, MCHC 30.7 L, RDW 18.0 H, Plt Count 134 L, MPV 8.8, Neut % (Auto) 70.2, Lymph % (Auto) 26.6, [place] % (Auto) 2.5, Eos % (Auto) 0.0 L, Baso % (Auto) 0.7, Neut # (Auto) 0.9 L*, Lymph # (Auto) 0.3 L, [place] # (Auto) 0.0 L, Eos # (Auto) 0.0, Baso # (Auto) 0.0, Sodium 135 L, Potassium 3.4 L, Chloride 101, Carbon Dioxide 30, Anion Gap 7.4, BUN 24 H D, Creatinine 0.90, Estimated Creat Clear 65, Estimated GFR 63, Est GFR ( Amer) 76, Glucose 149 H, Calcium 7.9 L, Magnesium 2.4 H, Total Bilirubin 0.2, AST 35, ALT 14, Alkaline Phosphatase 120, Total Protein 6.0 L, Albumin 3.3 L D, Globulin 2.7, Albumin/Globulin Ratio 1.2 I & O for Labs for Last 24 Hours: Intake & Output 05/13/23 05/14/23 05/15/23 05/16/23 23:59 23:59 23:59 23:59 Intake Total 240 / 490 250 / 250 Output Total 0 / 0 Balance 240 / 490 250 / 250 Weight 73.68 kg 73.68 kg Constitutional: Present no acute distress, obese and cooperative Head: Present atraumatic and normocephalic ENT: Present normal exam Neck: Present normal inspection Respiratory: Present prolonged expiratory phase, rhonchi, wheezes and normal respiratory effort; Absent crackles Cardiac: Present Reg Rate and Rhythm GI: Present soft and normal bowel sounds; Absent distention or tenderness Extremities: Present normal inspection and full ROM Skin: Present intact; Absent erythema Neuro: Present Grossly Intact, alert, awake, oriented x 3 and moves all extremities Assessment and Plan *Assessment and plan (1) COVID: Status: Acute Category: Medical Code(s): U07.1 - COVID-19 (2) Acute hypoxic respiratory failure: Status: Acute Category: Medical Code(s): J96.01 - Acute respiratory failure with hypoxia (3) Acute exacerbation of chronic obstructive pulmonary disease: Status: Acute Category: Medical Code(s): J44.1 - Chronic obstructive pulmonary disease with (acute) exacerbation (4) HTN (hypertension): Status: Chronic Qualifiers: Hypertension type: essential hypertension Qualified Code(s): I10 - Essential (primary) hypertension Category: Medical Code(s): I10 - Essential (primary) hypertension (5) HLD (hyperlipidemia): Status: Chronic Qualifiers: Hyperlipidemia type: unspecified Qualified Code(s): E78.5 - Hyperlipidemia, unspecified Category: Medical Code(s): E78.5 - Hyperlipidemia, unspecified (6) PAD (peripheral artery disease): Status: Acute Category: Medical Code(s): I73.9 - Peripheral vascular disease, unspecified (7) Edema: Status: Acute Category: Medical Code(s): R60.9 - Edema, unspecified (8) Anxiety: Status: Acute Category: Medical Code(s): F41.9 - Anxiety disorder, unspecified (9) Tobacco abuse: Status: Acute Category: Medical Code(s): Z72.0 - Tobacco use Plan 63 year old female presented to [facility] ED for c/o diarrhea, SOA, fevers, and headache since Saturday morning. PMHX of COPD (2L at night baseline), PAD, tobacco abuse, anxiety, depression, HLD, HTN, and rest leg syndrome. The pt states that she has been sweating on and off since Saturday. She decided to come to the ED today because her symptoms were not improving. Her ED workup revealed neutropenia 2.9, PCO2 of 57.3, negative troponins, and her chest xray revealed bilateral atelectasis. The ED physician consulted the hospitalist team for further medical management. Medicine agreed to admit. Continues to require 3 L nasal cannula oxygen. COVID-positive. Pulmonology assisting with care. Continues to require inpatient management. Problems addressed as follows: COVID COPD EXACERBATION HYPOXIC RESP FAILURE -Pulmonology consulted, discussed case this morning. Recommend continuing steroids, remdesivir. -Supplemental oxygen as needed, goal sats greater 90%. Currently on 3 L -Neutropenia, likely secondary to viral suppression. Will monitor closely. White cell count 1.3 this morning. Repeat CBC, CMP, magnesium ordered for the morning -Blood culture and sputum cultures pending -Airborne precaution -Continue Zinc sulfate 220mg, remdesivir 100mg, dexamethasone 6mg daily, ascorbic acid 500mg for COVID -tylenol 650mg PRN for pain/febrile -Duonebs q 6hr [place] HTN HLD PAD EDEMA ANXIETY -continue effexor 300mg, rivaroxaban 15mg, primidone 5mg, pramipexole 1.5mg, singulair 10mg, [place] 10mg, Ergocalciferol 50,000 units TOBACCO ABUSE -complicates aspects of care -nicotine patch prn FULL CODE CARDIAC DIET DVT: XARELTO 15MG
[2023-05-16] MEDS: ASCORBIC ACID 500MG TAB 500 MG PO ×4 (08:43→20:18)
[2023-05-16] MEDS: PRAMIPEXOLE 1MG TAB 1.5 MG PO ×2 (08:44→20:32)
[2023-05-16] MEDS: FAMOTIDINE 20MG TABLET 20 MG PO ×2 (08:44→20:33)
[2023-05-16] MEDS: DEXAMETHASONE 4MG/ML 1ML VIAL 6 MG IV (08:44)
[2023-05-16] MEDS: ZINC SULFATE 220MG CAPSULE 220 MG PO (08:45)
[2023-05-16] MEDS: VENLAFAXINE XR 75MG CAPSULE 300 MG PO (08:45)
--- NOTE | 2023-05-16 09:54 | EXP.PULM.CON ---
History of Present Illness History of present illness: Ms. Cruz is a 63-year-old female COPD chronic hypoxic respiratory failure presented to ER with worsening respiratory status found to be COVID-19 positive and increasing oxygen consult pulmonary was called for further evaluation and management. [facility] Disclaimer: The information contained in this section may have been updated after the patient was seen, as this information can be updated by other users. Medical History (Updated 05/15/23 @ 20:02 by SUNG Howe) Spinal stenosis Degenerative disc disease Anxiety Depression Fibromyalgia Sleep apnea Restless leg syndrome History of transient ischemic attack (TIA) Irritable bowel syndrome (IBS) Tobacco abuse HLD (hyperlipidemia) HTN (hypertension) Surgical History History of tonsillectomy History of cataract surgery Previous back surgery Hx of cholecystectomy History of removal of both ovaries History of partial hysterectomy Family History Father Hypertension Coronary artery disease Mother Pancreatic cancer Social History (Updated 05/15/23 @ 15:58 by Mally Kaiser RN) Smoking Status: Current every day smoker tobacco type: cigarettes packs per day: 2 years smoked: 45 smoking status stop date: 2 months ago second hand exposure: Yes alcohol intake: former substance use type: denies use current occupational status: retired Travel in the last 8 weeks: None household members: none housing: house current occupational exposures/hazards: No caffeine: Yes Review of Systems Constitutional Constitutional: Reports anorexia, Reports body ache(s) and Reports fatigue Eyes Eyes: Denies eye discharge, Denies dry eyes, Denies irritation and Denies itchy eyes ENT Ears, Nose, Mouth, and Throat: Denies epistaxis, Denies facial pain, Denies lip swelling and Denies throat swelling *Cardiovascular Cardiovascular: Reports dyspnea and Reports dyspnea on exertion *Respiratory Respiratory: Reports chest congestion, Reports cough, Reports dyspnea, Reports dyspnea on exertion, Reports excessive phlegm production and Reports wheezing *Gastrointestinal Gastrointestinal: Denies abdominal pain, Denies belching, Reports change in bowel habits, Denies cramping and Reports vomiting *Musculoskeletal Musculoskeletal: Reports back pain, Reports myalgias and Reports other (No small joint swelling or Pain) Psychiatric Psychiatric: Denies homicidal ideation and Denies suicidal ideation Endocrine Endocrine: Reports fatigue and Denies heat intolerance Hematologic/Lymphatic Hematologic/Lymphatic: Denies easy bleeding and Denies lymphadenopathy Allergic/Immunologic Allergic/Immunologic: Denies itchy eyes, Denies lip swelling, Denies throat swelling and Reports wheezing Pulmonology Exam Inpatient Vital signs and Labs for Last 24 Hours: Temp Pulse Resp BP Pulse Ox O2 Del Method O2 Flow Rate 97.6 F 66 22 99/60 L 94 L Nasal Cannula 4 05/16/23 08:00 05/16/23 08:00 05/16/23 08:00 05/16/23 08:00 05/16/23 08:00 05/16/23 08:00 05/16/23 08:00 Laboratory Results - last 24 hr 05/15/23 13:39: WBC 2.9 L, RBC 5.60 H, Hgb 13.0, Hct 42.6, MCV 76.0 L, MCH 23.3 L, MCHC 30.6 L, RDW 18.1 H, Plt Count 148, MPV 9.3, Neut % (Auto) 69.0, Lymph % (Auto) 24.9, [place] % (Auto) 5.0, Eos % (Auto) 0.5, Baso % (Auto) 0.7, Neut # (Auto) 2.0, Lymph # (Auto) 0.7, [place] # (Auto) 0.1, Eos # (Auto) 0.0, Baso # (Auto) 0.0, Sodium 136, Potassium 3.6, Chloride 99, Carbon Dioxide 30, Anion Gap 10.6, BUN 19 H, Creatinine 1.00, Estimated Creat Clear 69, Estimated GFR 56 L, Est GFR ( Amer) 67, Glucose 135 H, Calcium 8.6, Total Bilirubin 0.5, AST 42 H, ALT 18, Alkaline Phosphatase 141 H, Troponin I < 0.01, Total Protein 7.0, Albumin 4.0, Globulin 3.0, Albumin/Globulin Ratio 1.3 05/15/23 13:41: VBG pH 7.32, VBG pCO2 57.3 H, VBG pO2 33.0, VBG HCO3 29.1, VBG Total CO2 30.9 H, VBG O2 Saturation 57.9, VBG Base Excess 1.8, VBG Lactic Acid 2.2 H 05/15/23 14:14: SARS-CoV-2 (PCR) Detected A, Influenza A Untype (PCR) Not detected, Influenza Type B (PCR) Not detected 05/15/23 16:49: Troponin I < 0.01 05/15/23 18:30: VBG Lactic Acid 1.2 05/15/23 20:15: Troponin I < 0.01 05/16/23 05:10: WBC 1.3 L* D, RBC 4.94, Hgb 11.4 L D, Hct 37.3, MCV 75.5 L, MCH 23.1 L, MCHC 30.7 L, RDW 18.0 H, Plt Count 134 L, MPV 8.8, Neut % (Auto) 70.2, Lymph % (Auto) 26.6, [place] % (Auto) 2.5, Eos % (Auto) 0.0 L, Baso % (Auto) 0.7, Neut # (Auto) 0.9 L*, Lymph # (Auto) 0.3 L, [place] # (Auto) 0.0 L, Eos # (Auto) 0.0, Baso # (Auto) 0.0, Sodium 135 L, Potassium 3.4 L, Chloride 101, Carbon Dioxide 30, Anion Gap 7.4, BUN 24 H D, Creatinine 0.90, Estimated Creat Clear 65, Estimated GFR 63, Est GFR ( Amer) 76, Glucose 149 H, Calcium 7.9 L, Magnesium 2.4 H, Total Bilirubin 0.2, AST 35, ALT 14, Alkaline Phosphatase 120, Total Protein 6.0 L, Albumin 3.3 L D, Globulin 2.7, Albumin/Globulin Ratio 1.2 I & O for Labs for Last 24 Hours: Intake & Output 05/13/23 05/14/23 05/15/23 05/16/23 23:59 23:59 23:59 23:59 Intake Total 240 / 490 370 / 370 Output Total 0 / 0 Balance 240 / 490 370 / 370 Weight 162 lb 7 oz 162 lb 6.985 oz Constitutional: Present moderate distress Head: Present normocephalic and atraumatic ENT: Present normal exam, normal oropharynx and mucous membranes moist Neck: Present normal inspection and full ROM Respiratory: Present respiratory distress, wheezes, diminished air movement and able to speak in complete sentences Cardiac: Present S1/S2, Tachycardia and radial pulses present GI: Present soft and distention; Absent tenderness or guarding Rectal (female): Present deferred (female): Present deferred Skin: Present intact; Absent cyanosis or jaundice Neuro: Present alert, awake and oriented x 3 Extremities: Present normal inspection; Absent clubbing or cyanosis Psychiatric: Present normal affect and cooperative Meds Home Medications and Allergies Home Medications Medication Instructions Recorded Confirmed Type albuterol sulfate 90 mcg/actuation 1 inh inhalation QIDP PRN 08/10/20 05/15/23 History aerosol inhaler (Ventolin HFA) Shortness Of Breath pramipexole 1.5 mg tablet 1.5 mg PO BID parkinsons disease 03/08/21 05/15/23 History albuterol sulfate 2.5 mg/3 mL 2.5 mg inhalation Q6H PRN 11/19/22 05/15/23 History (0.083 %) solution for nebulization Breathing Problems dexlansoprazole 60 mg 60 mg PO DAILY stomach 11/20/22 05/15/23 History capsule,biphase delayed release (Dexilant) rivaroxaban 15 mg tablet (Xarelto) 15 mg PO QPMWITHMEAL Blood thinner 12/24/22 05/15/23 Rx 90 days #90 tabs bisoprolol fumarate 5 mg tablet 5 mg PO DAILY Hypertension 90 days 03/27/23 05/15/23 Rx #90 tabs dicyclomine 10 mg capsule 10 mg PO QID 90 days #360 caps 03/27/23 05/15/23 Rx levocetirizine 5 mg tablet 5 mg PO HS Allergy symptoms 90 03/27/23 05/15/23 Rx days #90 tabs montelukast 10 mg tablet 10 mg PO PM ALLERGIES 90 days #90 03/27/23 05/15/23 Rx tabs potassium chloride 10 mEq 10 meq PO DAILY 90 days #90 caps 03/27/23 05/15/23 Rx capsule,extended release tizanidine 4 mg tablet (Zanaflex) 4 mg PO QID 90 days #360 tabs 03/27/23 05/15/23 Rx venlafaxine 150 mg 300 mg (2 x 150 mg) PO DAILY 90 03/29/23 05/15/23 Rx capsule,extended release 24 hr days #180 caps (Effexor XR) hydrocodone 10 mg-acetaminophen 1 tab PO Q8H PRN Pain #30 tabs 02/21/24 03/06/24 Rx 325 mg tablet ascorbic acid 125 mg-collagen, 1 cap PO DAILY 05/16/23 05/16/23 History hydrolyzed 740 mg capsule (Collagen Plus Vitamin C) coenzyme Q10 100 mg capsule 300 mg PO DAILY 05/16/23 05/16/23 History (CoQ-10) New Prescriptions to Start Prescriptions: Allergies Allergy/AdvReac Type Severity Reaction Status Date / Time celecoxib [From Celebrex] Allergy Severe RECTAL Verified 05/15/23 16:24 BLEEDING leflunomide Allergy Severe Q-[id number]-SHWE/THROAT,TINGLING Verified 05/15/23 16:24 OF HANDS, SORE THROAT nortriptyline Allergy Severe Weakness Verified 05/15/23 16:24 cefdinir Allergy Intermediate I-ITCHING Verified 05/15/23 16:24 ciprofloxacin Allergy Intermediate I-HIVES, Verified 05/15/23 16:24 ITCHING gabapentin Allergy Intermediate BODY Verified 05/15/23 16:24 SWELLING nitrofurantoin Allergy Intermediate I-HIVES, Verified 05/15/23 16:24 [From Macrobid] ITCHING budesonide Allergy Mild Swelling Verified 05/15/23 16:24 [From Breztri Aerosphere] of Lip/Tongue/Throat formoterol Allergy Mild Swelling Verified 05/15/23 16:24 [From Breztri Aerosphere] of Lip/Tongue/Throat glycopyrrolate Allergy Mild Swelling Verified 05/15/23 16:24 [From Breztri Aerosphere] of Lip/Tongue/Throat naproxen [From NAPROSYN] Allergy Unknown THROAT Verified 05/15/23 16:24 SWELLS Penicillins Allergy Verified 05/15/23 16:24 tramadol Allergy Other Verified 05/15/23 16:24 levofloxacin [From Levaquin] AdvReac Intermediate HYPER , Verified 05/15/23 16:24 SHAKES dexamethasone AdvReac Mild SHAKES Verified 05/15/23 16:24 Results Laboratory Findings 05/16/23 05:10 05/16/23 05:10 Abnormal lab findings: Abnormal Labs 05/15/23 05/15/23 05/15/23 13:39 13:41 14:14 WBC 2.9 L RBC 5.60 H Hgb MCV 76.0 L MCH 23.3 L MCHC 30.6 L RDW 18.1 H Plt Count Eos % (Auto) Neut # (Auto) Lymph # (Auto) [place] # (Auto) VBG pCO2 57.3 H VBG Total CO2 30.9 H VBG Lactic Acid 2.2 H Sodium Potassium BUN 19 H Estimated GFR 56 L Glucose 135 H Calcium Magnesium AST 42 H Alkaline Phosphatase 141 H Total Protein Albumin SARS-CoV-2 (PCR) Detected A 05/16/23 05:10 WBC 1.3 L* D RBC Hgb 11.4 L D MCV 75.5 L MCH 23.1 L MCHC 30.7 L RDW 18.0 H Plt Count 134 L Eos % (Auto) 0.0 L Neut # (Auto) 0.9 L* Lymph # (Auto) 0.3 L [place] # (Auto) 0.0 L VBG pCO2 VBG Total CO2 VBG Lactic Acid Sodium 135 L Potassium 3.4 L BUN 24 H D Estimated GFR Glucose 149 H Calcium 7.9 L Magnesium 2.4 H AST Alkaline Phosphatase Total Protein 6.0 L Albumin 3.3 L D SARS-CoV-2 (PCR) Assessment and Plan *Assessment and plan (1) COVID: Status: Acute Category: Medical Code(s): U07.1 - COVID-19 (2) Acute hypoxic respiratory failure: Status: Acute Category: Medical Code(s): J96.01 - Acute respiratory failure with hypoxia (3) Acute and chronic respiratory failure with hypoxia: Status: Resolved Category: Medical Code(s): J96.21 - Acute and chronic respiratory failure with hypoxia Plan Ms. Cruz is a 63-year-old female with reported history of COPD, chronic hypoxic respiratory failure, PAD hypertension description tobacco use presented to the ER with complaints of worsening respiratory distress diarrhea subjective fevers and headaches. Chest x-ray upon admission no evidence of dense consolidation or airspace disease noted. Bronchial prominence noted. CT chest from May 2022 bilateral micronodules ALONG with lower lobe bronchectasis noted. Leukopenia noted upon admission,ANC at 900. COVID-19 PCR panel resulted positive upon admission. Auscultation Wheezing noted. on 3 to 4 L nasal cannula. Plan: Initiate levofloxacin 750 mg daily x 5 days -Continue remdesivir x 5 days OR untill Discharge -Continue dexamethasone x10 days OR untill Discharge -Initiate Advair 250 daily along with DuoNebs every 6 hours on as-needed basis -Recommend chemical prophylactic anticoagulation and GI ulcer prophylaxis # Thank you for involving pulmonary in this patient care. Will continue to follow.
[2023-05-16] MEDS: ACETAMINOPHEN 325MG TAB 650 MG PO (10:55)
[2023-05-16] MEDS: CALCIUM CARBONATE 500MG CHEWTAB 500 MG PO ×2 (10:55→13:47)
[2023-05-16] MEDS: LEVOFLOXACIN/D5W 750 MG/150 ML 750 MG/150 ML PIGGYBACK 100 MG IV (13:35)
--- NOTE | 2023-05-16 13:46 | ECG_ITS ---
APPROVED REPORT Exam: Resting ECG HR:66 bpm ECG Measurements Heart Rate 66 AXES HI 153 P 73 QRSd 93 QRS 65 QT 430 T 46 QTc 444 Conclusion SINUS RHYTHM NORMAL ECG UNCONFIRMED REPORT Electronically signed by : Adryan Cooper MD 05/16/2023 19:52:17
[2023-05-16 14:41] LABS: Troponin I < 0.01 ng/ml (0.00-0.034)
[2023-05-16] MEDS: RIVAROXABAN 15MG TABLET 15 MG PO (17:48)
[2023-05-16] MEDS: MONTELUKAST SODIUM 10MG TAB 10 MG PO (17:48)
[2023-05-16] MEDS: FLUTICASONE/SALMETEROL 250/50MCG DISKUS 1 PUFF IH (18:14)
--- NOTE | 2023-05-16 19:15 | PC.NURSE ---
Patient a&ox4 and vss, patient requiring increased O2 from home dose and is having some soa. Patient c/o chest pain once MD nitified and troponin, and EKG obtained.
[2023-05-16] MEDS: REMDESIVIR 100 MG in 0.9 % SODIUM CHLORIDE 100 ML IV (20:41)
[2023-05-17] VITALS (14 sets, daily range): BP systolic 103–143; BP diastolic 53–82; PULSE 60–90; RESP 16–31; TEMP 36.4–36.9; O2SAT 89–96; BMI 32.8
--- NOTE | 2023-05-17 03:32 | PC.NURSE ---
Patient VS WNL, Lungs fine crackles throughout, O2 4L NC; Patient continues with dry cough; receiving antibiotic therapy; Denies pain & voices no concerns at this time.
[2023-05-17] MEDS: FLUTICASONE/SALMETEROL 250/50MCG DISKUS 1 PUFF IH ×2 (06:34→18:49)
--- NOTE | 2023-05-17 07:39 | EXP.ACUTE.PN ---
Subjective *Date: 05/17/23 *Time: 18:44 Interval history: Patient slept better last night. Increased oxygen requirement however. Up to 4 L this morning, by the time patient was seen by pulmonology, she was up to 5 to 6 L. White cell count rebounding, still within a normal range. Denies any nausea or vomiting. No fever overnight. No chest pain. Having slow response to treatment. Medical Exam Vital signs and Labs for Last 24 Hours: Vital Signs Temp Pulse Pulse Resp BP Pulse Ox O2 Del Method 05/17/23 06:35 92 L Nasal Cannula 05/17/23 06:22 Nasal Cannula 05/17/23 05:00 Nasal Cannula 05/17/23 04:00 60 05/17/23 04:00 97.6 F 66 16 128/73 94 L Nasal Cannula 05/17/23 03:00 Nasal Cannula 05/17/23 01:00 Nasal Cannula 05/17/23 00:00 62 05/16/23 23:33 98.6 F 67 17 100/59 L 93 L Nasal Cannula 05/16/23 23:00 Nasal Cannula 05/16/23 21:00 Nasal Cannula 05/16/23 20:00 70 05/16/23 20:00 95 Nasal Cannula 05/16/23 20:00 98.4 F 69 17 108/57 L 95 Nasal Cannula 05/16/23 18:44 95 Nasal Cannula 05/16/23 16:00 98.1 F 63 22 136/99 H 94 L Nasal Cannula 05/16/23 16:00 75 05/16/23 12:00 97.6 F 73 18 115/61 91 L Nasal Cannula 05/16/23 12:00 70 05/16/23 08:00 70 05/16/23 08:00 97.6 F 66 22 99/60 L 94 L Nasal Cannula O2 Flow Rate 05/17/23 06:35 4 05/17/23 06:22 4 05/17/23 05:00 05/17/23 04:00 05/17/23 04:00 05/17/23 03:00 4 05/17/23 01:00 4 05/17/23 00:00 05/16/23 23:33 05/16/23 23:00 4 05/16/23 21:00 4 05/16/23 20:00 03/07/24 20:00 4 05/16/23 20:00 05/16/23 18:44 4 05/16/23 16:00 4 05/16/23 16:00 05/16/23 12:00 4 05/16/23 12:00 05/16/23 08:00 05/16/23 08:00 4 Intake and Output 05/16/23 05/16/23 05/17/23 15:59 23:59 07:59 Intake Total 360 / 950 340 / 950 Output Total 0 / 0 0 / 0 Balance 360 / 950 340 / 950 Intake: Intake, Oral Amount 360 / 700 340 / 700 Output: Output, Urine Amount 0 / 0 0 / 0 Other: Number of Unmeasured Voids 1 1 Weight 75.886 kg Patient Weight 05/17/23 23:59 Weight 75.886 kg Laboratory Results - last 24 hr 05/16/23 14:00: Troponin I < 0.01 I & O for Labs for Last 24 Hours: Intake & Output 05/14/23 05/15/23 05/16/23 05/17/23 23:59 23:59 23:59 23:59 Intake Total 240 / 490 950 / 950 Output Total 0 / 0 Balance 240 / 490 950 / 950 Weight 73.68 kg 73.68 kg 75.886 kg Constitutional: Present no acute distress, obese and cooperative Head: Present atraumatic and normocephalic ENT: Present normal exam Neck: Present normal inspection Respiratory: Present prolonged expiratory phase, rhonchi, wheezes and normal respiratory effort; Absent crackles Cardiac: Present Reg Rate and Rhythm GI: Present soft and normal bowel sounds; Absent distention or tenderness Extremities: Present normal inspection and full ROM Skin: Present intact; Absent erythema Neuro: Present Grossly Intact, alert, awake, oriented x 3 and moves all extremities Assessment and Plan *Assessment and plan (1) COVID: Status: Acute Category: Medical Code(s): U07.1 - COVID-19 (2) Acute hypoxic respiratory failure: Status: Acute Category: Medical Code(s): J96.01 - Acute respiratory failure with hypoxia (3) Acute exacerbation of chronic obstructive pulmonary disease: Status: Acute Category: Medical Code(s): J44.1 - Chronic obstructive pulmonary disease with (acute) exacerbation (4) HTN (hypertension): Status: Chronic Qualifiers: Hypertension type: essential hypertension Qualified Code(s): I10 - Essential (primary) hypertension Category: Medical Code(s): I10 - Essential (primary) hypertension (5) HLD (hyperlipidemia): Status: Chronic Qualifiers: Hyperlipidemia type: unspecified Qualified Code(s): E78.5 - Hyperlipidemia, unspecified Category: Medical Code(s): E78.5 - Hyperlipidemia, unspecified (6) PAD (peripheral artery disease): Status: Acute Category: Medical Code(s): I73.9 - Peripheral vascular disease, unspecified (7) Edema: Status: Acute Category: Medical Code(s): R60.9 - Edema, unspecified (8) Anxiety: Status: Acute Category: Medical Code(s): F41.9 - Anxiety disorder, unspecified (9) Tobacco abuse: Status: Acute Category: Medical Code(s): Z72.0 - Tobacco use Plan 63 year old female presented to [facility] ED for c/o diarrhea, SOA, fevers, and headache since Saturday morning. PMHX of COPD (2L at night baseline), PAD, tobacco abuse, anxiety, depression, HLD, HTN, and rest leg syndrome. The pt states that she has been sweating on and off since Saturday. She decided to come to the ED today because her symptoms were not improving. Her ED workup revealed neutropenia 2.9, PCO2 of 57.3, negative troponins, and her chest xray revealed bilateral atelectasis. The ED physician consulted the hospitalist team for further medical management. Medicine agreed to admit. Increasing oxygen requirement. Escalate to stepdown level of care. Pulmonology assisting with care. Continues to require inpatient management. Problems addressed as follows: COVID COPD EXACERBATION HYPOXIC RESP FAILURE -Pulmonology consulted, discussed case this morning. - Given increased oxygen requirement, pulmonology recommends transitioning to stepdown unit, escalating care. Continue supplemental oxygen with goal sats greater 90%. Currently on 6 L. Low threshold to transition to high flow nasal cannula. -Continue levofloxacin 750 mg daily for 5 days, remdesivir for 5 days or until discharge. Continue dexamethasone 6 mg for 10 days or until discharge. -Continue Advair 250 daily along with DuoNebs every 6 hours scheduled. -Continue famotidine and xarelto. -Neutropenia resolved, white cell count 6.8. Repeat CBC, CMP, magnesium ordered for the morning -Blood culture and sputum cultures pending -Airborne precaution -Continue Zinc sulfate 220mg, ascorbic acid 500mg for COVID -tylenol 650mg PRN for pain/febrile HTN HLD PAD EDEMA ANXIETY -continue effexor 300mg, rivaroxaban 15mg, primidone 5mg, pramipexole 1.5mg, singulair 10mg, [place] 10mg, Ergocalciferol 50,000 units TOBACCO ABUSE -complicates aspects of care -nicotine patch prn FULL CODE CARDIAC DIET DVT: XARELTO 15MG
[2023-05-17 07:42] LABS: Basophils % 0.2 % (0.1-2.0); Eosinophils % 0.1 % (0.1-12.0); Hematocrit 41.8 % (37.0-47.0); Hemoglobin 12.9 g/dL (12.2-16.2); Lymphocytes # 0.8 K/mm3 (0.7-4.5); Lymphocytes % 11.1 % (10-50); Mean Corpuscular HGB Conc 30.9 g/dL (31.8-35.4); Mean Corpuscular Hemoglobin 23.6 pg (27.0-31.2); Mean Corpuscular Volume 76.4 fl (81-99); Mean Platelet Volume 9.1 fl (7.4-10.4); Monocytes # 0.3 K/mm3 (0.1-1.0); Monocytes % 3.8 % (1.7-9.3); Neutrophils # 5.8 K/mm3 (1.8-7.8); Neutrophils % 84.7 % (37.0-80.0); Platelet Count 172 K/mm3 (142-424); Red Blood Count 5.48 M/mm3 (4.20-5.40); Red Cell Distribution Width 18.2 % (11.5-17.5); White Blood Count 6.8 K/mm3 (4.8-10.8)
[2023-05-17 07:58] LABS: Alanine Aminotransferase 26 U/L (12-78); Albumin Level 3.6 g/dl (3.5-5.0); Albumin/Globulin Ratio 1.3 (1.1-1.8); Alkaline Phosphatase 126 U/L (38-126); Anion Gap 8.6 mEq/L (5-15); Aspartate Amino Transferase 44 U/L (14-36); Bilirubin,Total 0.2 mg/dl (0.2-1.3); Blood Urea Nitrogen 23 mg/dl (7-17); Calcium 9.1 mg/dl (8.4-10.2); Carbon Dioxide 34 mmol/L (22.0-30.0); Chloride 101 mmol/L (98-107); Creatinine Clearance Estimated 67 mL/min (50-200); Estimated Glomerular Filt Rate 72 ml/min (>60); GFR (African American) 87 ML/MIN (>60); Globulin 2.7 g/dL (1.3-3.2); Glucose 101 mg/dl (74-100); Potassium 3.6 mmoL/L (3.5-5.1); Sodium 140 mmol/L (136-145); Total Protein,Serum 6.3 g/dl (6.3-8.2)
[2023-05-17] MEDS: PRAMIPEXOLE 1MG TAB 1.5 MG PO ×2 (08:07→22:09)
[2023-05-17] MEDS: FAMOTIDINE 20MG TABLET 20 MG PO ×2 (08:07→22:09)
[2023-05-17] MEDS: ASCORBIC ACID 500MG TAB 500 MG PO ×4 (08:07→22:09)
[2023-05-17] MEDS: ZINC SULFATE 220MG CAPSULE 220 MG PO (08:08)
[2023-05-17] MEDS: VENLAFAXINE XR 75MG CAPSULE 300 MG PO (08:08)
[2023-05-17] MEDS: DEXAMETHASONE 4MG/ML 1ML VIAL 6 MG IV (08:08)
--- NOTE | 2023-05-17 09:26 | EXP.PULM.PN ---
Subjective *Date: 05/17/23 *Time: 12:14 Interval history: Patient admits worsening respiratory distress. Pulmonology Exam Inpatient Vital signs and Labs for Last 24 Hours: Temp Pulse Resp BP Pulse Ox O2 Del Method O2 Flow Rate 97.5 F L 82 19 110/53 L 91 L Nasal Cannula 4 05/17/23 08:00 05/17/23 08:00 05/17/23 08:00 05/17/23 08:00 05/17/23 08:00 05/17/23 08:13 05/17/23 08:13 Laboratory Results - last 24 hr 05/16/23 14:00: Troponin I < 0.01 05/17/23 07:20: WBC 6.8 D, RBC 5.48 H, Hgb 12.9, Hct 41.8, MCV 76.4 L, MCH 23.6 L, MCHC 30.9 L, RDW 18.2 H, Plt Count 172 D, MPV 9.1, Neut % (Auto) 84.7 H, Lymph % (Auto) 11.1, [place] % (Auto) 3.8, Eos % (Auto) 0.1, Baso % (Auto) 0.2, Neut # (Auto) 5.8, Lymph # (Auto) 0.8, [place] # (Auto) 0.3, Eos # (Auto) 0.0, Baso # (Auto) 0.0, Sodium 140, Potassium 3.6, Chloride 101, Carbon Dioxide 34 H, Anion Gap 8.6, BUN 23 H, Creatinine 0.80, Estimated Creat Clear 67, Estimated GFR 72, Est GFR ( Amer) 87, Glucose 101 H, Calcium 9.1, Magnesium 2.0 D, Total Bilirubin 0.2, AST 44 H D, ALT 26 D, Alkaline Phosphatase 126, Total Protein 6.3, Albumin 3.6, Globulin 2.7, Albumin/Globulin Ratio 1.3 I & O for Labs for Last 24 Hours: Intake & Output 05/14/23 05/15/23 05/16/23 05/17/23 23:59 23:59 23:59 23:59 Intake Total 240 / 490 950 / 950 240 / 240 Output Total 0 / 0 Balance 240 / 490 950 / 950 240 / 240 Weight 162 lb 7 oz 162 lb 6.985 oz 167 lb 4.8 oz Constitutional: Present moderate distress Head: Present normocephalic and atraumatic ENT: Present normal exam, normal oropharynx and mucous membranes moist Neck: Present normal inspection and full ROM Respiratory: Present respiratory distress, wheezes and diminished air movement; Absent able to speak in complete sentences Cardiac: Present S1/S2, Tachycardia and radial pulses present GI: Present soft and distention; Absent tenderness or guarding Rectal (female): Present deferred (female): Present deferred Skin: Present intact; Absent cyanosis or jaundice Neuro: Present alert, awake and oriented x 3 Extremities: Present normal inspection; Absent clubbing or cyanosis Psychiatric: Present normal affect and cooperative Assessment and Plan *Assessment and plan (1) COVID: Status: Acute Category: Medical Code(s): U07.1 - COVID-19 (2) Acute hypoxic respiratory failure: Status: Acute Category: Medical Code(s): J96.01 - Acute respiratory failure with hypoxia (3) Acute and chronic respiratory failure with hypoxia: Status: Resolved Category: Medical Code(s): J96.21 - Acute and chronic respiratory failure with hypoxia Plan Ms. Cruz is a 63-year-old female with reported history of COPD, chronic hypoxic respiratory failure, PAD hypertension description tobacco use presented to the ER with complaints of worsening respiratory distress diarrhea subjective fevers and headaches. Chest x-ray upon admission no evidence of dense consolidation or airspace disease noted. Bronchial prominence noted. CT chest from May 2022 bilateral micronodules ALONG with lower lobe bronchectasis noted. Leukopenia noted upon admission,ANC at 900. COVID-19 PCR panel resulted positive upon admission. On initial auscultation Wheezing noted. on 3 to 4 L nasal cannula. Interval update: Worsening respiratory distress since yesterday for increasing currently on 6 L. Improving leukopenia. Continue to receive remdesivir Tamiflu dexamethasone and levofloxacin. Received levofloxacin yesterday. Denies any rash or itching/hives. Will continue. Plan: -Transfer to stepdown. -Increasing oxygen supplementation to 6 L to maintain O2 saturation goal of 90% and above. Will have low threshold to escalate high flow nasal cannula need to maintain desired O2 saturation. -Continue levofloxacin 750 mg daily x 5 days -Continue remdesivir x 5 days OR untill Discharge -Continue dexamethasone x10 days OR untill Discharge -Continue Advair 250 daily along with DuoNebs every 6 hours on as-needed basis -Recommend chemical prophylactic anticoagulation and GI ulcer prophylaxis # Thank you for involving pulmonary in this patient care. Will continue to follow.
[2023-05-17] MEDS: IPRATROPIUM/ALBUTEROL 3 ML NEB IH (11:33)
--- NOTE | 2023-05-17 11:33 | PC.NURSE ---
MARC Rizzo, obtained vitals, O2 89%; upon checking at manager economic, O2 was 85%, RT called
--- NOTE | 2023-05-17 12:52 | PC.NURSE ---
pt moved to 216 via chair, pt has 6LNC in place and oxygen saturations 91%, HR 80, rhythm NSR on tele, pt has 20G PIV in place in right AC, pt coughing frequently, respirations very labored and short of air with pursed lip breathing, when asked pt how felt pt stated hard to catch her breath , lung sounds very diminished, hypoactive bowel sounds, +1 pedal pulses, pt has dusky feet and toes with numerous small purple veins all over feet, bp 112/67 (82), call light within reach
[2023-05-17] MEDS: LEVOFLOXACIN/D5W 750 MG/150 ML 750 MG/150 ML PIGGYBACK 100 MG IV (13:56)
--- NOTE | 2023-05-17 14:32 | PC.NURSE ---
20G PIV right AC leaking, removed, house TJ placed 22G PIV left hand
[2023-05-17] MEDS: RIVAROXABAN 15MG TABLET 15 MG PO (17:08)
[2023-05-17] MEDS: CALCIUM CARBONATE 500MG CHEWTAB 500 MG PO (17:08)
[2023-05-17] MEDS: MONTELUKAST SODIUM 10MG TAB 10 MG PO (17:08)
[2023-05-17] MEDS: HYDROCODONE 10MG/APAP 325MG TAB 1 TAB PO (17:10)
[2023-05-17] MEDS: REMDESIVIR 100 MG in 0.9 % SODIUM CHLORIDE 100 ML IV (22:08)
[2023-05-18] VITALS (13 sets, daily range): BP systolic 110–140; BP diastolic 58–89; PULSE 74–108; RESP 19–26; TEMP 36.5–36.9; O2SAT 90–94; BMI 32.1
[2023-05-18] MEDS: FLUTICASONE/SALMETEROL 250/50MCG DISKUS 1 PUFF IH ×2 (06:35→18:11)
[2023-05-18 07:37] LABS: Basophils % 0.4 % (0.1-2.0); Hematocrit 38.8 % (37.0-47.0); Hemoglobin 11.7 g/dL (12.2-16.2); Lymphocytes # 0.7 K/mm3 (0.7-4.5); Lymphocytes % 11.7 % (10-50); Mean Corpuscular HGB Conc 30.2 g/dL (31.8-35.4); Mean Corpuscular Hemoglobin 22.7 pg (27.0-31.2); Mean Corpuscular Volume 75.2 fl (81-99); Mean Platelet Volume 8.7 fl (7.4-10.4); Monocytes # 0.3 K/mm3 (0.1-1.0); Monocytes % 4.2 % (1.7-9.3); Neutrophils # 4.9 K/mm3 (1.8-7.8); Neutrophils % 83.6 % (37.0-80.0); Platelet Count 167 K/mm3 (142-424); Red Blood Count 5.16 M/mm3 (4.20-5.40); Red Cell Distribution Width 18.4 % (11.5-17.5); White Blood Count 5.9 K/mm3 (4.8-10.8)
[2023-05-18 07:44] LABS: Alanine Aminotransferase 15 U/L (12-78); Albumin Level 3.3 g/dl (3.5-5.0); Albumin/Globulin Ratio 1.3 (1.1-1.8); Alkaline Phosphatase 123 U/L (38-126); Anion Gap 7.5 mEq/L (5-15); Aspartate Amino Transferase 39 U/L (14-36); Bilirubin,Total 0.2 mg/dl (0.2-1.3); Blood Urea Nitrogen 24 mg/dl (7-17); Calcium 8.7 mg/dl (8.4-10.2); Carbon Dioxide 31 mmol/L (22.0-30.0); Chloride 103 mmol/L (98-107); Creatinine Clearance Estimated 66 mL/min (50-200); Estimated Glomerular Filt Rate 72 ml/min (>60); GFR (African American) 87 ML/MIN (>60); Globulin 2.5 g/dL (1.3-3.2); Glucose 87 mg/dl (74-100); Potassium 3.5 mmoL/L (3.5-5.1); Sodium 138 mmol/L (136-145); Total Protein,Serum 5.8 g/dl (6.3-8.2)
[2023-05-18 07:59] LABS: Magnesium 1.7 mg/dl (1.6-2.3)
[2023-05-18] MEDS: PRAMIPEXOLE 1MG TAB 1.5 MG PO ×2 (09:12→21:48)
[2023-05-18] MEDS: HYDROCODONE 10MG/APAP 325MG TAB 1 TAB PO ×2 (09:13→16:19)
[2023-05-18] MEDS: ASCORBIC ACID 500MG TAB 500 MG PO ×4 (09:13→21:48)
[2023-05-18] MEDS: VENLAFAXINE XR 75MG CAPSULE 300 MG PO (09:13)
[2023-05-18] MEDS: FAMOTIDINE 20MG TABLET 20 MG PO ×2 (09:13→21:48)
[2023-05-18] MEDS: DEXAMETHASONE 4MG/ML 1ML VIAL 6 MG IV (09:13)
[2023-05-18] MEDS: ZINC SULFATE 220MG CAPSULE 220 MG PO (09:13)
[2023-05-18] MEDS: CALCIUM CARBONATE 500MG CHEWTAB 500 MG PO (10:13)
[2023-05-18] MEDS: MAGNESIUM SULFATE IN WATER 2 GM/50 ML PIGGYBACK IV (12:26)
[2023-05-18] MEDS: ONDANSETRON 4MG/2ML VIAL 4 MG IV (12:27)
--- NOTE | 2023-05-18 15:40 | P.PN_ITS ---
Subjective *Date: 05/18/23 *Time: 15:40 Interval history: Patient continues stepdown level of care. On 6 L nasal cannula this morning. Did not require Vapotherm overnight. Quite fatigued this morning. Having wheeze and cough. No nausea or vomiting. Trying to eat. Becoming more weak, will consider PT consult Medical Exam Vital signs and Labs for Last 24 Hours: Vital Signs Temp Pulse Pulse Pulse Resp BP Pulse Ox 05/18/23 12:00 80 20 114/58 L 94 L 05/18/23 12:00 97.8 F 05/18/23 12:00 80 05/18/23 11:00 05/18/23 10:00 108 H 20 123/68 91 L 05/18/23 09:00 05/18/23 08:00 90 05/18/23 08:00 81 21 113/68 92 L 05/18/23 08:00 97.7 F 05/18/23 06:59 05/18/23 06:00 74 19 121/76 93 L 05/18/23 05:00 05/18/23 04:00 97.9 F 05/18/23 04:00 97.9 F 87 23 110/68 92 L 05/18/23 04:00 05/18/23 03:00 05/18/23 02:00 81 26 H 117/71 90 L 05/18/23 01:00 05/18/23 00:00 98.4 F 85 20 126/76 91 L 05/17/23 23:00 05/17/23 22:00 79 31 H 140/82 93 L 05/17/23 21:00 05/17/23 20:00 72 22 134/79 91 L 05/17/23 20:00 05/17/23 20:00 98.5 F 05/17/23 19:13 96 05/17/23 18:36 05/17/23 18:00 81 25 H 122/77 92 L 05/17/23 17:00 05/17/23 16:00 90 05/17/23 16:00 97.6 F 83 26 H 143/81 H 92 L O2 Del Method O2 Flow Rate 05/18/23 12:00 Nasal Cannula 6 05/18/23 12:00 05/18/23 12:00 05/18/23 11:00 Nasal Cannula 6 05/18/23 10:00 Nasal Cannula 05/18/23 09:00 Nasal Cannula 6 05/18/23 08:00 05/18/23 08:00 Nasal Cannula 05/18/23 08:00 05/18/23 06:59 Nasal Cannula 05/18/23 06:00 Nasal Cannula 05/18/23 05:00 Nasal Cannula 05/18/23 04:00 05/18/23 04:00 Nasal Cannula 05/18/23 04:00 Nasal Cannula 6 05/18/23 03:00 Nasal Cannula 05/18/23 02:00 Nasal Cannula 05/18/23 01:00 Nasal Cannula 05/18/23 00:00 Nasal Cannula 05/17/23 23:00 Nasal Cannula 05/17/23 22:00 Nasal Cannula 6 05/17/23 21:00 Nasal Cannula 05/17/23 20:00 Nasal Cannula 6 05/17/23 20:00 Nasal Cannula 6 05/17/23 20:00 05/17/23 19:13 Nasal Cannula 6 05/17/23 18:36 Nasal Cannula 6 05/17/23 18:00 Nasal Cannula 6 05/17/23 17:00 Nasal Cannula 6 05/17/23 16:00 05/17/23 16:00 Nasal Cannula 6 Intake and Output 05/17/23 05/18/23 05/18/23 23:59 07:59 15:59 Intake Total 340 / 820 100 / 100 Output Total 0 / 0 0 / 0 Balance 340 / 820 100 / 100 Intake: Intake, Oral Amount 340 / 820 100 / 100 Output: Output, Urine Amount 0 / 0 0 / 0 Other: Number of Unmeasured Voids 1 1 Weight 74.134 kg Patient Weight 05/18/23 23:59 Weight 74.134 kg Laboratory Results - last 24 hr 05/18/23 06:46: WBC 5.9, RBC 5.16, Hgb 11.7 L, Hct 38.8, MCV 75.2 L, MCH 22.7 L, MCHC 30.2 L, RDW 18.4 H, Plt Count 167, MPV 8.7, Neut % (Auto) 83.6 H, Lymph % (Auto) 11.7, [place] % (Auto) 4.2, Eos % (Auto) 0.0 L, Baso % (Auto) 0.4, Neut # (Auto) 4.9, Lymph # (Auto) 0.7, [place] # (Auto) 0.3, Eos # (Auto) 0.0, Baso # (Auto) 0.0, Sodium 138, Potassium 3.5, Chloride 103, Carbon Dioxide 31 H, Anion Gap 7.5, BUN 24 H, Creatinine 0.80, Estimated Creat Clear 66, Estimated GFR 72, Est GFR ( Amer) 87, Glucose 87, Calcium 8.7, Magnesium 1.7 D, Total Bilirubin 0.2, AST 39 H, ALT 15 D, Alkaline Phosphatase 123, Total Protein 5.8 L, Albumin 3.3 L, Globulin 2.5, Albumin/Globulin Ratio 1.3 I & O for Labs for Last 24 Hours: Intake & Output 05/15/23 05/16/23 05/17/23 05/18/23 23:59 23:59 23:59 23:59 Intake Total 240 / 490 950 / 950 820 / 820 100 / 100 Output Total 0 / 0 0 / 0 0 / 0 Balance 240 / 490 950 / 950 820 / 820 100 / 100 Weight 73.68 kg 73.68 kg 75.88 kg 74.134 kg Microbiology Reports for the Last 24 Hours: Microbiology 05/15/23 14:25 Blood Blood Culture - Preliminary 05/15/23 14:25 Blood Blood Culture - Preliminary Constitutional: Present no acute distress, obese and cooperative Head: Present atraumatic and normocephalic ENT: Present normal exam Neck: Present normal inspection Respiratory: Present prolonged expiratory phase, rhonchi, wheezes and normal respiratory effort; Absent crackles Cardiac: Present Reg Rate and Rhythm GI: Present soft and normal bowel sounds; Absent distention or tenderness Extremities: Present normal inspection and full ROM Skin: Present intact; Absent erythema Neuro: Present Grossly Intact, alert, awake, oriented x 3 and moves all extremities Assessment and Plan *Assessment and plan (1) COVID: Status: Acute Category: Medical Code(s): U07.1 - COVID-19 (2) Acute hypoxic respiratory failure: Status: Acute Category: Medical Code(s): J96.01 - Acute respiratory failure with hypoxia (3) Acute exacerbation of chronic obstructive pulmonary disease: Status: Acute Category: Medical Code(s): J44.1 - Chronic obstructive pulmonary disease with (acute) exacerbation (4) HTN (hypertension): Status: Chronic Qualifiers: Hypertension type: essential hypertension Qualified Code(s): I10 - Essential (primary) hypertension Category: Medical Code(s): I10 - Essential (primary) hypertension (5) HLD (hyperlipidemia): Status: Chronic Qualifiers: Hyperlipidemia type: unspecified Qualified Code(s): E78.5 - Hyperlipidemia, unspecified Category: Medical Code(s): E78.5 - Hyperlipidemia, unspecified (6) PAD (peripheral artery disease): Status: Acute Category: Medical Code(s): I73.9 - Peripheral vascular disease, unspecified (7) Edema: Status: Acute Category: Medical Code(s): R60.9 - Edema, unspecified (8) Anxiety: Status: Acute Category: Medical Code(s): F41.9 - Anxiety disorder, unspecified (9) Tobacco abuse: Status: Acute Category: Medical Code(s): Z72.0 - Tobacco use Plan 63 year old female presented to [facility] ED for c/o diarrhea, SOA, fevers, and headache since Saturday morning. PMHX of COPD (2L at night baseline), PAD, tobacco abuse, anxiety, depression, HLD, HTN, and rest leg syndrome. The pt states that she has been sweating on and off since Saturday. She decided to come to the ED today because her symptoms were not improving. Her ED workup revealed neutropenia 2.9, PCO2 of 57.3, negative troponins, and her chest xray revealed bilateral atelectasis. The ED physician consulted the hospitalist team for further medical management. Medicine agreed to admit. Increasing oxygen requirement. Continue stepdown level of care, low threshold to escalate to Vapotherm/high flow nasal cannula if oxygen requirement increases. Pulmonology assisting with care. Continues to require inpatient management. Problems addressed as follows: COVID COPD EXACERBATION HYPOXIC RESP FAILURE -Pulmonology consulted, discussed case this morning. Continue supplemental oxygen with goal sats greater 90%. Currently on 6 L. Low threshold to transition to high flow nasal cannula. -Continue levofloxacin 750 mg daily for 5 days, remdesivir for 5 days or until discharge. Continue dexamethasone 6 mg for 10 days or until discharge. -Continue Advair 250 daily along with DuoNebs every 6 hours scheduled. -Continue famotidine and xarelto. -Neutropenia resolved, white cell count 5.8. Repeat CBC, CMP, magnesium ordered for the morning -Blood culture and sputum cultures pending -Airborne precaution -Continue Zinc sulfate 220mg, ascorbic acid 500mg for COVID -tylenol 650mg PRN for pain/febrile HTN HLD PAD EDEMA ANXIETY -continue effexor 300mg, rivaroxaban 15mg, primidone 5mg, pramipexole 1.5mg, singulair 10mg, Eleva 10mg, Ergocalciferol 50,000 units TOBACCO ABUSE -complicates aspects of care -nicotine patch prn FULL CODE CARDIAC DIET DVT: XARELTO 15MG
[2023-05-18] MEDS: RIVAROXABAN 15MG TABLET 15 MG PO (16:19)
[2023-05-18] MEDS: MONTELUKAST SODIUM 10MG TAB 10 MG PO (16:19)
[2023-05-18] MEDS: IPRATROPIUM/ALBUTEROL 3 ML NEB IH (18:11)
[2023-05-18] MEDS: REMDESIVIR 100 MG in 0.9 % SODIUM CHLORIDE 100 ML IV (21:47)
[2023-05-18] MEDS: BENZONATATE 100MG CAPSULE 200 MG PO (21:48)
[2023-05-19] VITALS (15 sets, daily range): BP systolic 102–147; BP diastolic 58–88; PULSE 68–107; RESP 18–31; TEMP 36.6–36.9; O2SAT 87–96; BMI 32.1
[2023-05-19] MEDS: GUAIFENESIN/DEXTROMETHORPHAN 200MG/20MG 10ML UDC 10 ML PO (05:52)
[2023-05-19] MEDS: FLUTICASONE/SALMETEROL 250/50MCG DISKUS 1 PUFF IH ×2 (06:39→18:33)
--- NOTE | 2023-05-19 06:59 | PC.NURSE ---
Pt a/o x4. Pt has had hacking cough t/o shift. cough medication administered 2x -see may. pt has been weaned down to 4L nc, tolerating well with sat >90% while at rest. Pt does get SOA with o2 in mid 80s w/ exertion and coughing episodes. Pt has not not voiced any complaints to staff. Call light within reach.
[2023-05-19] MEDS: ASCORBIC ACID 500MG TAB 500 MG PO ×4 (08:30→20:11)
[2023-05-19] MEDS: PRAMIPEXOLE 1MG TAB 1.5 MG PO ×2 (08:31→20:11)
[2023-05-19] MEDS: VENLAFAXINE XR 75MG CAPSULE 300 MG PO (08:31)
[2023-05-19] MEDS: ZINC SULFATE 220MG CAPSULE 220 MG PO (08:31)
[2023-05-19] MEDS: FAMOTIDINE 20MG TABLET 20 MG PO ×2 (08:31→20:11)
[2023-05-19] MEDS: DEXAMETHASONE 4MG/ML 1ML VIAL 6 MG IV (08:31)
[2023-05-19] MEDS: SODIUM CHLORIDE 0.9% 10ML FLUSH SYRINGE 10 ML IV (08:34)
[2023-05-19 08:58] LABS: Alanine Aminotransferase 26 U/L (12-78); Albumin Level 3.3 g/dl (3.5-5.0); Albumin/Globulin Ratio 1.3 (1.1-1.8); Alkaline Phosphatase 124 U/L (38-126); Anion Gap 6.6 mEq/L (5-15); Aspartate Amino Transferase 45 U/L (14-36); Bilirubin,Total 0.2 mg/dl (0.2-1.3); Blood Urea Nitrogen 24 mg/dl (7-17); Calcium 8.4 mg/dl (8.4-10.2); Carbon Dioxide 34 mmol/L (22.0-30.0); Chloride 102 mmol/L (98-107); Creatinine Clearance Estimated 66 mL/min (50-200); Estimated Glomerular Filt Rate 63 ml/min (>60); GFR (African American) 76 ML/MIN (>60); Globulin 2.6 g/dL (1.3-3.2); Glucose 113 mg/dl (74-100); Potassium 3.6 mmoL/L (3.5-5.1); Sodium 139 mmol/L (136-145); Total Protein,Serum 5.9 g/dl (6.3-8.2)
[2023-05-19 09:02] LABS: Basophils % 0.5 % (0.1-2.0); Eosinophils % 0.1 % (0.1-12.0); Hematocrit 40.6 % (37.0-47.0); Hemoglobin 12.4 g/dL (12.2-16.2); Lymphocytes # 0.7 K/mm3 (0.7-4.5); Lymphocytes % 13.8 % (10-50); Mean Corpuscular HGB Conc 30.4 g/dL (31.8-35.4); Mean Corpuscular Hemoglobin 23.1 pg (27.0-31.2); Monocytes # 0.3 K/mm3 (0.1-1.0); Neutrophils % 79.7 % (37.0-80.0); Platelet Count 185 K/mm3 (142-424); Red Blood Count 5.35 M/mm3 (4.20-5.40); Red Cell Distribution Width 18.5 % (11.5-17.5); White Blood Count 5.1 K/mm3 (4.8-10.8)
[2023-05-19 09:03] LABS: C-Reactive Protein 28.9 mg/L (0-4)
[2023-05-19] MEDS: BENZONATATE 100MG CAPSULE 200 MG PO ×3 (09:52→20:11)
--- NOTE | 2023-05-19 12:09 | EXP.ACUTE.PN ---
Subjective *Date: 05/19/23 *Time: 12:09 Interval history: Feeling a little better today. Oxygen decreased to 4 L. Afebrile. No nausea or vomiting. Weak but ambulating around the room and to the bathroom. Medical Exam Vital signs and Labs for Last 24 Hours: Vital Signs Temp Pulse Pulse Resp BP Pulse Ox O2 Del Method 05/19/23 11:30 97.8 F 05/19/23 11:00 Nasal Cannula 05/19/23 10:00 84 23 102/60 L 94 L Nasal Cannula 05/19/23 09:00 Nasal Cannula 05/19/23 08:00 90 05/19/23 08:00 98.3 F 05/19/23 08:00 86 31 H 105/66 L 92 L Room Air 05/19/23 08:00 92 L Nasal Cannula 05/19/23 06:58 Nasal Cannula 05/19/23 06:40 91 L Nasal Cannula 05/19/23 06:00 83 23 107/67 L 92 L Nasal Cannula 05/19/23 06:00 98.0 F 05/19/23 05:20 94 L Nasal Cannula 05/19/23 05:00 Nasal Cannula 05/19/23 04:00 107 H 05/19/23 04:00 91 L Nasal Cannula 05/19/23 04:00 88 22 128/73 90 L Nasal Cannula 05/19/23 03:00 Nasal Cannula 05/19/23 03:00 91 H 23 123/76 92 L Nasal Cannula 05/19/23 01:00 Nasal Cannula 05/19/23 00:00 97 H 05/19/23 00:00 94 H 24 136/69 96 Nasal Cannula 05/19/23 00:00 98.1 F 05/18/23 23:00 Nasal Cannula 05/18/23 22:00 97.9 F 05/18/23 21:00 Nasal Cannula 05/18/23 20:00 86 05/18/23 20:00 94 L Nasal Cannula 05/18/23 20:00 98.0 F 05/18/23 18:10 90 L Nasal Cannula 05/18/23 16:23 Nasal Cannula 05/18/23 16:00 90 05/18/23 16:00 105 H 24 140/89 92 L Nasal Cannula 05/18/23 15:55 94 L Nasal Cannula 05/18/23 15:00 Nasal Cannula 05/18/23 13:00 Nasal Cannula 05/18/23 12:00 80 20 114/58 L 94 L Nasal Cannula 05/18/23 12:00 97.8 F 05/18/23 12:00 80 O2 Flow Rate 05/19/23 11:30 05/19/23 11:00 4 05/19/23 10:00 4 05/19/23 09:00 4 05/19/23 08:00 05/19/23 08:00 05/19/23 08:00 05/19/23 08:00 4 05/19/23 06:58 4 05/19/23 06:40 4 05/19/23 06:00 4 05/19/23 06:00 05/19/23 05:20 3 05/19/23 05:00 4 05/19/23 04:00 05/19/23 04:00 4 05/19/23 04:00 4 05/19/23 03:00 5 05/19/23 03:00 5 05/19/23 01:00 5 05/19/23 00:00 05/19/23 00:00 6 05/19/23 00:00 05/18/23 23:00 05/18/23 22:00 05/18/23 21:00 05/18/23 20:00 05/18/23 20:00 05/18/23 20:00 05/18/23 18:10 6 05/18/23 16:23 6 05/18/23 16:00 05/18/23 16:00 6 05/18/23 15:55 6 05/18/23 15:00 6 05/18/23 13:00 6 05/18/23 12:00 6 05/18/23 12:00 05/18/23 12:00 Intake and Output 05/18/23 05/19/23 05/19/23 22:59 07:59 15:59 Intake Total 0 / 90 Output Total 0 / 0 Balance 0 / 90 Intake: Intake, Oral Amount 0 / 0 Intake, Total IV Amount Remdesivir 100 mg In 0.9 % Sodium Chloride 100 ml @ 100 mls/hr IV Q24H [facility] Rx#:[id number] Output: Output, Urine Amount 0 / 0 Other: Number of Unmeasured Voids Weight Patient Weight 05/20/23 00:59 Weight 74.134 kg Laboratory Results - last 24 hr 05/19/23 08:13: WBC 5.1, RBC 5.35, Hgb 12.4, Hct 40.6, MCV 76.0 L, MCH 23.1 L, MCHC 30.4 L, RDW 18.5 H, Plt Count 185, MPV 9.0, Neut % (Auto) 79.7, Lymph % (Auto) 13.8, [place] % (Auto) 6.0, Eos % (Auto) 0.1, Baso % (Auto) 0.5, Neut # (Auto) 4.0, Lymph # (Auto) 0.7, [place] # (Auto) 0.3, Eos # (Auto) 0.0, Baso # (Auto) 0.0, Sodium 139, Potassium 3.6, Chloride 102, Carbon Dioxide 34 H, Anion Gap 6.6, BUN 24 H, Creatinine 0.90, Estimated Creat Clear 66, Estimated GFR 63, Est GFR ( Amer) 76, Glucose 113 H, Calcium 8.4, Magnesium 2.0 D, Total Bilirubin 0.2, AST 45 H, ALT 26 D, Alkaline Phosphatase 124, C-Reactive Protein 28.9 H, Total Protein 5.9 L, Albumin 3.3 L, Globulin 2.6, Albumin/Globulin Ratio 1.3 I & O for Labs for Last 24 Hours: Intake & Output 05/16/23 05/17/23 05/18/23 05/20/23 23:59 23:59 23:59 00:59 Intake Total 950 / 950 820 / 820 660 / 750 90 / 90 Output Total 0 / 0 0 / 0 0 / 0 0 / 0 Balance 950 / 950 820 / 820 660 / 750 90 / 90 Weight 73.68 kg 75.88 kg 74.134 kg 74.134 kg Microbiology Reports for the Last 24 Hours: Microbiology 05/15/23 14:25 Blood Blood Culture - Preliminary 05/15/23 14:25 Blood Blood Culture - Preliminary Constitutional: Present no acute distress, obese and cooperative Head: Present atraumatic and normocephalic ENT: Present normal exam Neck: Present normal inspection Respiratory: Present prolonged expiratory phase, crackles ([place]) and normal respiratory effort; Absent rhonchi or wheezes Cardiac: Present Reg Rate and Rhythm GI: Present soft and normal bowel sounds; Absent distention or tenderness Extremities: Present normal inspection and full ROM Skin: Present intact; Absent erythema Neuro: Present Grossly Intact, alert, awake, oriented x 3 and moves all extremities Assessment and Plan *Assessment and plan (1) COVID: Status: Acute Category: Medical Code(s): U07.1 - COVID-19 (2) Acute hypoxic respiratory failure: Status: Acute Category: Medical Code(s): J96.01 - Acute respiratory failure with hypoxia (3) Acute exacerbation of chronic obstructive pulmonary disease: Status: Acute Category: Medical Code(s): J44.1 - Chronic obstructive pulmonary disease with (acute) exacerbation (4) HTN (hypertension): Status: Chronic Qualifiers: Hypertension type: essential hypertension Qualified Code(s): I10 - Essential (primary) hypertension Category: Medical Code(s): I10 - Essential (primary) hypertension (5) HLD (hyperlipidemia): Status: Chronic Qualifiers: Hyperlipidemia type: unspecified Qualified Code(s): E78.5 - Hyperlipidemia, unspecified Category: Medical Code(s): E78.5 - Hyperlipidemia, unspecified (6) PAD (peripheral artery disease): Status: Acute Category: Medical Code(s): I73.9 - Peripheral vascular disease, unspecified (7) Edema: Status: Acute Category: Medical Code(s): R60.9 - Edema, unspecified (8) Anxiety: Status: Acute Category: Medical Code(s): F41.9 - Anxiety disorder, unspecified (9) Tobacco abuse: Status: Acute Category: Medical Code(s): Z72.0 - Tobacco use Plan 63 year old female presented to [facility] ED for c/o diarrhea, SOA, fevers, and headache since Saturday morning. PMHX of COPD (2L at night baseline), PAD, tobacco abuse, anxiety, depression, HLD, HTN, and rest leg syndrome. The pt states that she has been sweating on and off since Saturday. She decided to come to the ED today because her symptoms were not improving. Her ED workup revealed neutropenia 2.9, PCO2 of 57.3, negative troponins, and her chest xray revealed bilateral atelectasis. The ED physician consulted the hospitalist team for further medical management. Medicine agreed to admit. Increasing oxygen requirement. De-escalate to progressive level of care. Pulmonology assisting with care. Continues to require inpatient management. Problems addressed as follows: COVID COPD EXACERBATION HYPOXIC RESP FAILURE -Pulmonology consulted, discussed case this morning. Continue supplemental oxygen with goal sats greater 90%. Currently on 4 L. Seeing improvement. Continue treatment as follows: -Continue levofloxacin 750 mg daily for 5 days, remdesivir for 5 days or until discharge. Continue dexamethasone 6 mg for 10 days or until discharge. -Continue Advair 250 daily along with DuoNebs every 6 hours scheduled. -Continue famotidine and xarelto. -Neutropenia resolved, white cell count 5.1. Repeat CBC, CMP, magnesium ordered for the morning -Blood culture and sputum cultures pending, remain negative to date -Airborne precaution -Continue Zinc sulfate 220mg, ascorbic acid 500mg for COVID -tylenol 650mg PRN for pain/febrile HTN HLD PAD EDEMA ANXIETY -continue effexor 300mg, rivaroxaban 15mg, primidone 5mg, pramipexole 1.5mg, singulair 10mg, [place] 10mg, Ergocalciferol 50,000 units TOBACCO ABUSE -complicates aspects of care -nicotine patch prn FULL CODE CARDIAC DIET DVT: XARELTO 15MG
[2023-05-19] MEDS: LEVOFLOXACIN/D5W 750 MG/150 ML 750 MG/150 ML PIGGYBACK 100 MG IV (14:07)
[2023-05-19] MEDS: MONTELUKAST SODIUM 10MG TAB 10 MG PO (17:20)
[2023-05-19] MEDS: RIVAROXABAN 15MG TABLET 15 MG PO (17:20)
[2023-05-19] MEDS: HYDROCODONE 10MG/APAP 325MG TAB 1 TAB PO (20:11)
[2023-05-19] MEDS: REMDESIVIR 100 MG in 0.9 % SODIUM CHLORIDE 100 ML IV (20:13)
[2023-05-20] VITALS (9 sets, daily range): BP systolic 105–129; BP diastolic 58–77; PULSE 74–99; RESP 17–20; TEMP 36.6–36.9; O2SAT 83–95; BMI 32.0
[2023-05-20] MEDS: ROPINIROLE HCL 0.25 MG TABLET PO (00:51)
[2023-05-20] MEDS: GUAIFENESIN/DEXTROMETHORPHAN 200MG/20MG 10ML UDC 10 ML PO (00:57)
--- NOTE | 2023-05-20 05:20 | PC.NURSE ---
This RN took over care for pt at 0510. Received report from Davin QUEEN.
[2023-05-20 06:26] LABS: Basophils % 0.5 % (0.1-2.0); Eosinophils % 0.1 % (0.1-12.0); Hematocrit 37.2 % (37.0-47.0); Hemoglobin 11.3 g/dL (12.2-16.2); Lymphocytes # 0.6 K/mm3 (0.7-4.5); Lymphocytes % 12.9 % (10-50); Mean Corpuscular HGB Conc 30.5 g/dL (31.8-35.4); Mean Corpuscular Hemoglobin 23.2 pg (27.0-31.2); Mean Platelet Volume 8.8 fl (7.4-10.4); Monocytes # 0.3 K/mm3 (0.1-1.0); Neutrophils % 80.6 % (37.0-80.0); Platelet Count 179 K/mm3 (142-424); Red Blood Count 4.89 M/mm3 (4.20-5.40); Red Cell Distribution Width 18.6 % (11.5-17.5)
[2023-05-20 06:30] LABS: Alanine Aminotransferase 24 U/L (12-78); Albumin Level 3.1 g/dl (3.5-5.0); Albumin/Globulin Ratio 1.3 (1.1-1.8); Alkaline Phosphatase 114 U/L (38-126); Anion Gap 5.8 mEq/L (5-15); Aspartate Amino Transferase 45 U/L (14-36); Bilirubin,Total 0.2 mg/dl (0.2-1.3); Blood Urea Nitrogen 22 mg/dl (7-17); Calcium 7.9 mg/dl (8.4-10.2); Carbon Dioxide 33 mmol/L (22.0-30.0); Chloride 103 mmol/L (98-107); Creatinine Clearance Estimated 66 mL/min (50-200); Estimated Glomerular Filt Rate 72 ml/min (>60); GFR (African American) 87 ML/MIN (>60); Globulin 2.4 g/dL (1.3-3.2); Glucose 101 mg/dl (74-100); Potassium 3.8 mmoL/L (3.5-5.1); Sodium 138 mmol/L (136-145); Total Protein,Serum 5.5 g/dl (6.3-8.2)
[2023-05-20] MEDS: FLUTICASONE/SALMETEROL 250/50MCG DISKUS 1 PUFF IH (06:42)
--- NOTE | 2023-05-20 08:09 | PC.NURSE ---
in room talking with patient at this time.
[2023-05-20] MEDS: VENLAFAXINE XR 75MG CAPSULE 300 MG PO (08:47)
[2023-05-20] MEDS: ASCORBIC ACID 500MG TAB 500 MG PO ×2 (08:47→12:16)
[2023-05-20] MEDS: PRAMIPEXOLE 1MG TAB 1.5 MG PO (08:47)
[2023-05-20] MEDS: BENZONATATE 100MG CAPSULE 200 MG PO ×2 (08:47→12:16)
[2023-05-20] MEDS: ZINC SULFATE 220MG CAPSULE 220 MG PO (08:47)
[2023-05-20] MEDS: DEXAMETHASONE 4MG/ML 1ML VIAL 6 MG IV (08:48)
[2023-05-20] MEDS: FAMOTIDINE 20MG TABLET 20 MG PO (08:48)
--- NOTE | 2023-05-20 09:03 | PC.NURSE ---
PT/OT in room with patient at this time.
--- NOTE | 2023-05-20 09:40 | HMH.PTEV ---
Physical Therapy Evaluation Rehab PT IP Evaluation Start: 05/19/23 08:00 Freq: ONCE Status: Active Protocol: Document 05/20/23 09:35 JOSSELYN (Rec: 05/20/23 09:40 JOSSELYN [id number]) Subjective/History History History Per H&P: 63 year old female presented to [facility] ED for c/o diarrhea, SOA, fevers, and headache since Saturday morning. PMHX of COPD (2L at night baseline) , PAD, tobacco abuse, anxiety, depression, HLD, HTN, and rest leg syndrome. Subjective Subjective PLOF per pt report: Lives alone in a single-story home with 0 LUPILL[address]. Pt driving prior to admission and IND with functional mobility with intermittent use of SPC. New diagnosis of cancer in past 12 No months? Rehab PT IP Eval Objective Appearance Patient Behavior Appropriate,Cooperative Patient Orientation Person,Place Difficulty following instructions none Speech Pattern Clear Ambulation Patient Able to Ambulate Yes Ambulation Observation Ambulation Distance (feet) 5 Ambulation Ability Supervision/Stand by Balance Ability to Arise Able, uses arms to help Sitting Balance Steady, safe Standing Balance Steady, wide stance Transfers Bed Transfer Ability Independent Chair Transfer Ability Supervision/Stand by Rehab PT IP prob,goals,plan Problems Date of Evaluation: 05/20/23 Rehab Potential Rehab Potential Innapropriate for Skilled Therapy Discharge Plan PT Discharge Plan Pt safe to d/c home when deemed medically necessary d/t current level of mobility and home set-up. Pt not appropriate for skilled acute care PT at this time d/t pt?s mobility being at baseline. Eval Complexity Eval Charge Codes 67486 - High Complexity PHYSICIAN CERTIFICATION: I certify the specified therapy services for Casi Cruz are required, authorized, and reviewed every 30 days.
--- NOTE | 2023-05-20 09:43 | HMH.OTEV ---
OT Inpatient Evaluation Rehab OT IP Evaluation Start: 05/19/23 08:00 Freq: ONCE Status: Active Protocol: Document 05/20/23 09:40 WILLI (Rec: 05/20/23 09:43 [facility] [id number]) Rehab OT IP Assessment Subjective History Pt oriented x 3 on arrival. Pt agreeable to engage in therapy evaluation. Pt was admitted on 05/15/23 due to COVID and COPD exacerbation. History and Physical report: 63 year old female presented to [facility] ED for c/o diarrhea, SOA, fevers, and headache since Saturday morning. PMHX of COPD (2L at night baseline) , PAD, tobacco abuse, anxiety, depression, HLD, HTN, and rest leg syndrome. The pt states that she has been sweating on and off since Saturday. She decided to come to the ED today because her symptoms were not improving. Her ED workup revealed neutropenia 2.9, PCO2 of 57.3, negative troponins, and her chest xray revealed bilateral atelectasis. The ED physician consulted the hospitalist team for further medical management. I admitted the pt to the medical floor. Currently she is requiring 3L of NC. She is covid poisitive upon admission. She will receive steroids, remdesivir, and treatment for associated symptoms. Subjective I lived alone. Pt claims prior to being in the hospital, she lived alone. She is normally independent with all ADLs and IADLs. Pt still drives. She uses a cane intermittently; oxygen required at night. Objective Patient Orientation Person,Place,Birthday Right Upper Extremity Gross ROM WFL Left Upper Extremity Gross ROM WFL Bed Mobility bed mobility-scooting,bed mobility - supine/sit Assist Level Supervision/Stand by Transfer Training Sit/Stand Transfer Assist Level Supervision/Stand by Chair Transfer Ability Supervision/Stand by Chair Transfer Technique Sit to/from Ambulatory Chair Transfer Assistive Devices None Lower Body Dressing Ability Standby Assistance Rehab OT IP prob,goals,plan Problems Date of Evaluation: 05/20/23 Rehab Potential Rehab Potential Innapropriate for Skilled Therapy Discharge Plan OT Discharge Plan At this time, pt appears to be at her baseline with functional transfers and ADL independence. Pt can return home once medically stable per physician. Therapist recommends HH OT evaluation as needed. Eval Complexity Eval Charge Codes 29926 - Low Complexity PHYSICIAN CERTIFICATION: I certify the specified therapy services for Casi T Cruz are required, authorized, and reviewed every 30 days.
--- NOTE | 2023-05-20 10:07 | P.PN_ITS ---
Subjective *Date: 05/20/23 *Time: 12:00 Interval history: No acute respiratory vents over the weekend. Patient admits continued improvement in her respiratory symptoms. Pulmonology Exam Inpatient Vital signs and Labs for Last 24 Hours: Temp Pulse Resp BP Pulse Ox O2 Del Method O2 Flow Rate 98.4 F 89 17 105/58 L 94 L Nasal Cannula 5 05/20/23 04:00 05/20/23 07:53 05/20/23 04:00 05/20/23 07:53 05/20/23 07:53 05/20/23 09:00 05/20/23 09:00 Laboratory Results - last 24 hr 05/20/23 05:18: WBC 5.0, RBC 4.89, Hgb 11.3 L, Hct 37.2, MCV 76.0 L, MCH 23.2 L, MCHC 30.5 L, RDW 18.6 H, Plt Count 179, MPV 8.8, Neut % (Auto) 80.6 H, Lymph % (Auto) 12.9, [place] % (Auto) 6.0, Eos % (Auto) 0.1, Baso % (Auto) 0.5, Neut # (Auto) 4.0, Lymph # (Auto) 0.6 L, [place] # (Auto) 0.3, Eos # (Auto) 0.0, Baso # (Auto) 0.0, Sodium 138, Potassium 3.8, Chloride 103, Carbon Dioxide 33 H, Anion Gap 5.8, BUN 22 H, Creatinine 0.80, Estimated Creat Clear 66, Estimated GFR 72, Est GFR ( Amer) 87, Glucose 101 H, Calcium 7.9 L, Magnesium 2.0, Total Bilirubin 0.2, AST 45 H, ALT 24, Alkaline Phosphatase 114, Total Protein 5.5 L, Albumin 3.1 L, Globulin 2.4, Albumin/Globulin Ratio 1.3 I & O for Labs for Last 24 Hours: Intake & Output 05/17/23 05/18/23 05/19/23 05/20/23 22:59 22:59 23:59 23:59 Intake Total 100 / 100 Output Total 0 / 0 Balance 100 / 100 Weight 163 lb 2.273 oz Microbiology Reports for the Last 24 Hours: Microbiology 05/15/23 14:25 Blood Blood Culture - Preliminary 05/15/23 14:25 Blood Blood Culture - Preliminary Constitutional: Present moderate distress Head: Present normocephalic and atraumatic ENT: Present normal exam, normal oropharynx and mucous membranes moist Neck: Present normal inspection and full ROM Respiratory: Present respiratory distress, wheezes and able to speak in complete sentences Cardiac: Present S1/S2, Tachycardia and radial pulses present GI: Present soft and distention; Absent tenderness or guarding Rectal (female): Present deferred (female): Present deferred Skin: Present intact; Absent cyanosis or jaundice Neuro: Present alert, awake and oriented x 3 Extremities: Present normal inspection; Absent clubbing or cyanosis Psychiatric: Present normal affect and cooperative Assessment and Plan *Assessment and plan (1) COVID: Status: Acute Category: Medical Code(s): U07.1 - COVID-19 (2) Acute hypoxic respiratory failure: Status: Acute Category: Medical Code(s): J96.01 - Acute respiratory failure with hypoxia (3) Acute and chronic respiratory failure with hypoxia: Status: Resolved Category: Medical Code(s): J96.21 - Acute and chronic respiratory failure with hypoxia Plan Ms. Cruz is a 63-year-old female with reported history of COPD, chronic hypoxic respiratory failure, PAD hypertension description tobacco use presented to the ER with complaints of worsening respiratory distress diarrhea subjective fevers and headaches. Chest x-ray upon admission no evidence of dense consolidation or airspace disease noted. Bronchial prominence noted. CT chest from May 2022 bilateral micronodules ALONG with lower lobe bronchectasis noted. Leukopenia noted upon admission,ANC at 900. COVID-19 PCR panel resulted positive upon admission. On initial auscultation Wheezing noted. on 3 to 4 L nasal cannula. Interval update: No acute respiratory events over the weekend. Stable/slight improvement in her oxygen requirements from needing 6 L previously. Improving wheezing and respiratory distress on examination today. Continue to receive levofloxacin remdesivir and dexamethasone . Chest x-ray from this morning personally reviewed, stable with no new pulmonary infiltrates. Plan: -Incentive spirometry -Continue oxygen supplementation to maintain O2 saturation goal of 90 to 95%. Currently on 4 L -Trelegy 100 inhaler along with DuoNebs every 8 are scheduled -Continue levofloxacin 750 mg daily x 7 days -Continue remdesivir x 5 days OR untill Discharge -Continue dexamethasone x10 days OR untill Discharge -Recommend chemical prophylactic anticoagulation and GI ulcer prophylaxis # Thank you for involving pulmonary in this patient care. Will continue to follow.
--- NOTE | 2023-05-20 10:08 | XR_ITS ---
FINAL REPORT CLINICAL HISTORY: PNM COMPARISON: 05/15/2023 FINDINGS: A single portable view of the chest was obtained. The heart size and pulmonary vascularity are within normal limits. The mediastinum is within normal limits. Mild bibasilar opacities are favored to represent atelectasis over pneumonia. The bony thorax is intact. IMPRESSION: Mild bibasilar opacities favor atelectasis over pneumonia. Reviewed, Interpreted and Dictated by Mamadou Dutton III, MD Transcribed by Kailey Castro Authenticated and [facility]
--- NOTE | 2023-05-20 11:09 | PC.NURSE ---
in room talking with patient at this time.
[2023-05-20] MEDS: LEVOFLOXACIN/D5W 750 MG/150 ML 750 MG/150 ML PIGGYBACK 100 MG IV (13:10)
--- NOTE | 2023-05-20 13:42 | P.PN_ITS ---
Subjective *Date: 05/20/23 *Time: 13:42 Interval history: Patient looks a little bit better this morning. Still on significant oxygen. Baseline oxygen at home is 2 L at night, room air during the day. Still requiring 4 L oxygen. No nausea or vomiting. Tremor overnight but this is norm al for her. 83% on room air. Labs normalized. Tolerating p.o. intake. Afebrile. Medical Exam Vital signs and Labs for Last 24 Hours: Vital Signs Temp Pulse Pulse Resp BP Pulse Ox O2 Del Method 05/20/23 11:51 74 125/77 95 Nasal Cannula 05/20/23 11:00 Nasal Cannula 05/20/23 09:00 Nasal Cannula 05/20/23 08:00 85 05/20/23 08:00 Nasal Cannula 05/20/23 07:53 89 105/58 L 94 L Nasal Cannula 05/20/23 06:43 91 L Nasal Cannula 05/20/23 06:40 Nasal Cannula 05/20/23 05:00 Nasal Cannula 05/20/23 04:00 98.4 F 90 17 127/76 90 L Nasal Cannula 05/20/23 03:00 Nasal Cannula 05/20/23 01:00 Nasal Cannula 05/20/23 00:00 99 H 05/20/23 00:00 97.9 F 80 20 129/65 94 L Nasal Cannula 05/19/23 23:00 Nasal Cannula 05/19/23 22:50 87 L Nasal Cannula 05/19/23 21:00 Nasal Cannula 05/19/23 20:00 93 L Nasal Cannula 05/19/23 20:00 85 05/19/23 20:00 98.5 F 95 H 28 H 147/88 H 92 L Nasal Cannula 05/19/23 19:00 Nasal Cannula 05/19/23 18:48 Nasal Cannula 05/19/23 18:00 84 18 127/78 95 Nasal Cannula 05/19/23 17:00 Nasal Cannula 05/19/23 16:00 96 H 05/19/23 16:00 82 22 128/74 95 Nasal Cannula 05/19/23 16:00 95 Nasal Cannula 05/19/23 15:00 Nasal Cannula 05/19/23 14:00 78 21 112/69 94 L Nasal Cannula, Venturi Mask O2 Flow Rate 05/20/23 11:51 4 05/20/23 11:00 4 05/20/23 09:00 4 05/20/23 08:00 05/20/23 08:00 5 05/20/23 07:53 5 05/20/23 06:43 5 05/20/23 06:40 5 05/20/23 05:00 5 05/20/23 04:00 5 05/20/23 03:00 5 05/20/23 01:00 5 05/20/23 00:00 05/20/23 00:00 5 05/19/23 23:00 5 05/19/23 22:50 4 05/19/23 21:00 4 05/19/23 20:00 4 05/19/23 20:00 05/19/23 20:00 05/19/23 19:00 4 05/19/23 18:48 4 05/19/23 18:00 4 05/19/23 17:00 4 05/19/23 16:00 05/19/23 16:00 4 05/19/23 16:00 4 05/19/23 15:00 4 05/19/23 14:00 Intake and Output 05/19/23 05/20/23 05/20/23 23:59 07:59 15:59 Intake Total 60 / 370 100 / 100 Output Total 0 / 0 0 / 0 0 / 0 Balance 60 / 370 100 / 100 0 / 100 Intake: Intake, Oral Amount 60 / 180 Intake, Total IV Amount 100 / 100 Remdesivir 100 mg In 0.9 % 100 / 100 Sodium Chloride 100 ml @ 100 mls/hr IV Q24H [facility] Rx#:[id number] Output: Output, Urine Amount 0 / 0 0 / 0 0 / 0 Other: Number of Unmeasured Voids 1 1 1 Weight 74 kg Patient Weight 05/20/23 23:59 Weight 74 kg Laboratory Results - last 24 hr 05/20/23 05:18: WBC 5.0, RBC 4.89, Hgb 11.3 L, Hct 37.2, MCV 76.0 L, MCH 23.2 L, MCHC 30.5 L, RDW 18.6 H, Plt Count 179, MPV 8.8, Neut % (Auto) 80.6 H, Lymph % (Auto) 12.9, [place] % (Auto) 6.0, Eos % (Auto) 0.1, Baso % (Auto) 0.5, Neut # (Auto) 4.0, Lymph # (Auto) 0.6 L, [place] # (Auto) 0.3, Eos # (Auto) 0.0, Baso # (Auto) 0.0, Sodium 138, Potassium 3.8, Chloride 103, Carbon Dioxide 33 H, Anion Gap 5.8, BUN 22 H, Creatinine 0.80, Estimated Creat Clear 66, Estimated GFR 72, Est GFR ( Amer) 87, Glucose 101 H, Calcium 7.9 L, Magnesium 2.0, Total Bilirubin 0.2, AST 45 H, ALT 24, Alkaline Phosphatase 114, Total Protein 5.5 L, Albumin 3.1 L, Globulin 2.4, Albumin/Globulin Ratio 1.3 I & O for Labs for Last 24 Hours: Intake & Output 05/17/23 05/18/23 05/19/23 05/20/23 22:59 22:59 23:59 23:59 Intake Total 100 / 100 Output Total 0 / 0 Balance 100 / 100 Weight 74 kg Microbiology Reports for the Last 24 Hours: Microbiology 05/15/23 14:25 Blood Blood Culture - Preliminary 05/15/23 14:25 Blood Blood Culture - Preliminary Constitutional: Present no acute distress, obese and cooperative Head: Present atraumatic and normocephalic ENT: Present normal exam Neck: Present normal inspection Respiratory: Present prolonged expiratory phase and normal respiratory effort; Absent rhonchi, wheezes or crackles Cardiac: Present Reg Rate and Rhythm GI: Present soft and normal bowel sounds; Absent distention or tenderness Extremities: Present normal inspection and full ROM Skin: Present intact; Absent erythema Neuro: Present Grossly Intact, alert, awake, oriented x 3 and moves all extremities Assessment and Plan *Assessment and plan (1) COVID: Status: Acute Category: Medical Code(s): U07.1 - COVID-19 (2) Acute hypoxic respiratory failure: Status: Acute Category: Medical Code(s): J96.01 - Acute respiratory failure with hypoxia (3) Acute exacerbation of chronic obstructive pulmonary disease: Status: Acute Category: Medical Code(s): J44.1 - Chronic obstructive pulmonary disease with (acute) exacerbation (4) HTN (hypertension): Status: Chronic Qualifiers: Hypertension type: essential hypertension Qualified Code(s): I10 - Essential (primary) hypertension Category: Medical Code(s): I10 - Essential (primary) hypertension (5) HLD (hyperlipidemia): Status: Chronic Qualifiers: Hyperlipidemia type: unspecified Qualified Code(s): E78.5 - Hyperlipidemia, unspecified Category: Medical Code(s): E78.5 - Hyperlipidemia, unspecified (6) PAD (peripheral artery disease): Status: Acute Category: Medical Code(s): I73.9 - Peripheral vascular disease, unspecified (7) Edema: Status: Acute Category: Medical Code(s): R60.9 - Edema, unspecified (8) Anxiety: Status: Acute Category: Medical Code(s): F41.9 - Anxiety disorder, unspecified (9) Tobacco abuse: Status: Acute Category: Medical Code(s): Z72.0 - Tobacco use Plan 63 year old female presented to [facility] ED for c/o diarrhea, SOA, fevers, and headache since Saturday morning. PMHX of COPD (2L at night baseline), PAD, tobacco abuse, anxiety, depression, HLD, HTN, and rest leg syndrome. The pt states that she has been sweating on and off since Saturday. She decided to come to the ED today because her symptoms were not improving. Her ED workup revealed neutropenia 2.9, PCO2 of 57.3, negative troponins, and her chest xray revealed bilateral atelectasis. The ED physician consulted the hospitalist team for further medical management. Medicine agreed to admit. Oxygen requirement improving at 4 L. Repeat x-ray personally reviewed showing persistent atelectasis but no focal consolidation. Anticipate discharge in the next day or 2. Pulmonology assisting with care. Problems addressed as follows: COVID COPD EXACERBATION HYPOXIC RESP FAILURE -Pulmonology consulted, discussed case this morning. Continue supplemental oxygen with goal saturation greater 90%. Currently on 4 L. Seeing improvement. -Continue levofloxacin 750 mg daily for 5 days, remdesivir for 5 days or until discharge. Continue dexamethasone 6 mg for 10 days or until discharge. -Transition to Trelegy 100 daily and dexamethasone scheduled every 8 hours. -Continue famotidine and xarelto. -White cell count normal at 5. Hemoglobin 11. Kidney function electrolytes normal. Potassium 3.8, creatinine 0.8. Lab holiday in the morning. -Blood culture and sputum cultures pending, remain negative to date -Airborne precaution -Continue Zinc sulfate 220mg, ascorbic acid 500mg for COVID -tylenol 650mg PRN for pain/febrile HTN HLD PAD EDEMA ANXIETY -continue effexor 300mg, rivaroxaban 15mg, primidone 5mg, pramipexole 1.5mg, singulair 10mg, [place] 10mg, Ergocalciferol 50,000 units TOBACCO ABUSE -complicates aspects of care -nicotine patch prn FULL CODE CARDIAC DIET DVT: XARELTO 15MG
--- NOTE | 2023-05-20 13:57 | CARE MANAGER ---
Patient will require O2 during the day. She currently has O2 at night through [facility]. Sent updated order to [facility] and asked for delivery of portable.
[2023-05-20] MEDS: IPRATROPIUM/ALBUTEROL 3 ML NEB IH (14:36)
--- NOTE | 2023-05-20 15:17 | P.DS_ITS ---
General Admission date:: 05/15/23 Discharge date: 05/20/23 HPI HPI HPI: 63 year old female presented to [facility] ED for c/o diarrhea, SOA, fevers, and headache since Saturday morning. PMHX of COPD (2L at night baseline), PAD, tobacco abuse, anxiety, depression, HLD, HTN, and rest leg syndrome. The pt states that she has been sweating on and off since Saturday. She decided to come to the ED today because her symptoms were not improving. Her ED workup revealed neutropenia 2.9, PCO2 of 57.3, negative troponins, and her chest xray revealed bilateral atelectasis. The ED physician consulted the hospitalist team for f urther medical management. I admitted the pt to the medical floor. Currently she is requiring 3L of NC. She is covid poisitive upon admission. She will receive steroids, remdesivir, and treatment for associated symptoms. Hospital Course Hospital Course Hospital Course: 63 year old female presented to [facility] ED for c/o diarrhea, SOA, fevers, and headache since Saturday morning. PMHX of COPD (2L at night baseline), PAD, tobacco abuse, anxiety, depression, HLD, HTN, and rest leg syndrome. The pt stat es that she has been sweating on and off since Saturday. She decided to come to the ED today because her symptoms were not improving. Her ED workup revealed neutropenia 2.9, PCO2 of 57.3, negative troponins, and her chest xray revealed bilateral atelectasis. The ED physician consulted the hospitalist team for further medical management. Medicine agreed to admit. Oxygen requirement improving at 4 L. Repeat x-ray personally reviewed showing persistent atelectasis but no focal consolidation. Stable for discharge home to continue oxygen therapy. Will complete antibiotics orally and follow with pulmonology in the outpatient setting. Problems addressed as follows: COVID COPD EXACERBATION HYPOXIC RESP FAILURE -Pulmonology consulted, assisted with care. Patient requiring supplemental oxygen. Goal saturation greater 90%. Gradually weaned during admission, tolerating as low as 2 L briefly at rest but will continue supplemental oxygen at discharge at 4 L continuous. Home oxygen ordered at discharge. Room air saturation at rest on day of discharge 83%. Patient was treated with Levaquin, remdesivir, steroids. Completed her remdesivir and steroids. Will complete 5 days total of levofloxacin, remainder of course sent for outpatient therapy. Transition to Trelegy inhaler. Will continue DuoNebs at home 3-4 times a day. White cell count normal on day of discharge. Kidney function normal. Sputum and blood cultures remain negative. Son is going to stay with patient for the next week. Overall doing well. Counseled on expected time course of resolution of symptoms over the coming weeks. HTN HLD PAD EDEMA ANXIETY -continue effexor 300mg, rivaroxaban 15mg, primidone 5mg, pramipexole 1.5mg, singulair 10mg, [place] 10mg, Ergocalciferol 50,000 units TOBACCO ABUSE: Continues to smoke. Counseled on nicotine cessation. Patch provided at discharge Total time spent on discharge 35 minutes in counseling, documentation, chart review, and direct care with patient. Exam Data for Last 24 hours Vital signs and Labs for Last 24 Hours: Temp Pulse Resp BP Pulse Ox O2 Del Method O2 Flow Rate 98.4 F 90 17 125/77 95 Nasal Cannula 3 05/20/23 04:00 05/20/23 14:37 05/20/23 04:00 05/20/23 11:51 05/20/23 14:37 05/20/23 14:37 05/20/23 14:37 Laboratory Results - last 24 hr 05/20/23 05:18: WBC 5.0, RBC 4.89, Hgb 11.3 L, Hct 37.2, MCV 76.0 L, MCH 23.2 L, MCHC 30.5 L, RDW 18.6 H, Plt Count 179, MPV 8.8, Neut % (Auto) 80.6 H, Lymph % (Auto) 12.9, [place] % (Auto) 6.0, Eos % (Auto) 0.1, Baso % (Auto) 0.5, Neut # (Auto) 4.0, Lymph # (Auto) 0.6 L, [place] # (Auto) 0.3, Eos # (Auto) 0.0, Baso # (Auto) 0.0, Sodium 138, Potassium 3.8, Chloride 103, Carbon Dioxide 33 H, Anion Gap 5.8, BUN 22 H, Creatinine 0.80, Estimated Creat Clear 66, Estimated GFR 72, Est GFR ( Amer) 87, Glucose 101 H, Calcium 7.9 L, Magnesium 2.0, Total Bilirubin 0.2, AST 45 H, ALT 24, Alkaline Phosphatase 114, Total Protein 5.5 L, Albumin 3.1 L, Globulin 2.4, Albumin/Globulin Ratio 1.3 I & O for Last 24 hours: Intake & Output 05/17/23 05/18/23 05/19/23 05/20/23 22:59 22:59 23:59 23:59 Intake Total 100 / 100 Output Total 0 / 0 Balance 100 / 100 Weight 74 kg Constitutional Constitutional: no acute distress, obese, chronically ill appearing and cooperative *Routine HEENT Exam Head: Present normocephalic Eye: Present EOMI and PERRL ENT: Present mucous membranes moist *Routine Neck Exam Neck: Present supple; Absent lymphadenopathy *Routine Respiratory Exam Respiratory: Present prolonged expiratory phase, diminished air movement and normal respiratory effort; Absent rhonchi, wheezes or crackles *Routine Cardiovascular Exam Cardiovascular: Present RRR *Routine Abdominal Exam Abdominal: Present soft and normoactive bowel sounds; Absent tenderness *Routine Rectal Exam Patient deferred: visual exam *Routine Exam Patient deferred: external exam *Routine Extremities Exam Extremities: Absent cyanosis, clubbing or edema *Routine Skin Exam Skin: Present warm; Absent rash *Routine Neurological Exam Neurological: Present alert, oriented X3 and moving all extremities; Absent altered mental status Results Data Completed and Pending Labs on day of discharge: Labs from last 24 hours 05/20/23 05:18 WBC 5.0 RBC 4.89 Hgb 11.3 L Hct 37.2 MCV 76.0 L MCH 23.2 L MCHC 30.5 L RDW 18.6 H Plt Count 179 MPV 8.8 Neut % (Auto) 80.6 H Lymph % (Auto) 12.9 [place] % (Auto) 6.0 Eos % (Auto) 0.1 Baso % (Auto) 0.5 Neut # (Auto) 4.0 Lymph # (Auto) 0.6 L [place] # (Auto) 0.3 Eos # (Auto) 0.0 Baso # (Auto) 0.0 Sodium 138 Potassium 3.8 Chloride 103 Carbon Dioxide 33 H Anion Gap 5.8 BUN 22 H Creatinine 0.80 Estimated Creat Clear 66 Estimated GFR 72 Est GFR ( Amer) 87 Glucose 101 H Calcium 7.9 L Magnesium 2.0 Total Bilirubin 0.2 AST 45 H ALT 24 Alkaline Phosphatase 114 Total Protein 5.5 L Albumin 3.1 L Globulin 2.4 Albumin/Globulin Ratio 1.3 Preliminary micro results at discharge 05/15/23 14:25 Blood Culture - Preliminary Blood 05/15/23 14:25 Blood Culture - Preliminary Blood DS: Diagnosis Discharge Diagnosis (1) COVID: Status: Acute Code(s): U07.1 - COVID-19 (2) Acute hypoxic respiratory failure: Status: Acute Code(s): J96.01 - Acute respiratory failure with hypoxia (3) Acute exacerbation of chronic obstructive pulmonary disease: Status: Acute Code(s): J44.1 - Chronic obstructive pulmonary disease with (acute) exacerbation (4) HTN (hypertension): Status: Chronic Code(s): I10 - Essential (primary) hypertension Qualifiers: Hypertension type: essential hypertension Qualified Code(s): I10 - Essential (primary) hypertension (5) HLD (hyperlipidemia): Status: Chronic Code(s): E78.5 - Hyperlipidemia, unspecified Qualifiers: Hyperlipidemia type: unspecified Qualified Code(s): E78.5 - Hyperlipidemia, unspecified (6) PAD (peripheral artery disease): Status: Acute Code(s): I73.9 - Peripheral vascular disease, unspecified (7) Edema: Status: Acute Code(s): R60.9 - Edema, unspecified (8) Anxiety: Status: Acute Code(s): F41.9 - Anxiety disorder, unspecified (9) Tobacco abuse: Status: Acute Code(s): Z72.0 - Tobacco use Meds Home Medications and Allergies Home Medications Medication Instructions Recorded Confirmed Type albuterol sulfate 90 mcg/actuation 1 inh inhalation QIDP PRN 08/10/20 05/15/23 History aerosol inhaler (Ventolin HFA) Shortness Of Breath pramipexole 1.5 mg tablet 1.5 mg PO BID parkinsons disease 03/08/21 05/15/23 History albuterol sulfate 2.5 mg/3 mL 2.5 mg inhalation Q6H PRN 11/19/22 05/15/23 History (0.083 %) solution for nebulization Breathing Problems dexlansoprazole 60 mg 60 mg PO DAILY stomach 11/20/22 05/15/23 History capsule,biphase delayed release (Dexilant) rivaroxaban 15 mg tablet (Xarelto) 15 mg PO QPMWITHMEAL Blood thinner 12/24/22 05/15/23 Rx 90 days #90 tabs bisoprolol fumarate 5 mg tablet 5 mg PO DAILY Hypertension 90 days 03/27/23 05/15/23 Rx #90 tabs dicyclomine 10 mg capsule 10 mg PO QID 90 days #360 caps 03/27/23 05/15/23 Rx levocetirizine 5 mg tablet 5 mg PO HS Allergy symptoms 90 03/27/23 05/15/23 Rx days #90 tabs montelukast 10 mg tablet 10 mg PO PM ALLERGIES 90 days #90 03/27/23 05/15/23 Rx tabs potassium chloride 10 mEq 10 meq PO DAILY 90 days #90 caps 03/27/23 05/15/23 Rx capsule,extended release tizanidine 4 mg tablet (Zanaflex) 4 mg PO QID 90 days #360 tabs 03/27/23 05/15/23 Rx venlafaxine 150 mg 300 mg (2 x 150 mg) PO DAILY 90 03/29/23 05/15/23 Rx capsule,extended release 24 hr days #180 caps (Effexor XR) hydrocodone 10 mg-acetaminophen 1 tab PO Q8H PRN Pain #30 tabs 05/01/23 05/15/23 Rx 325 mg tablet ascorbic acid 125 mg-collagen, 1 cap PO DAILY 05/16/23 05/16/23 History hydrolyzed 740 mg capsule (Collagen Plus Vitamin C) coenzyme Q10 100 mg capsule 300 mg PO DAILY 05/16/23 05/16/23 History (CoQ-10) denosumab 60 mg/mL subcutaneous 60 mg SQ [id number] #1 mL 05/17/23 Rx syringe (Prolia) dextromethorphan-guaifenesin 10 10 ml PO Q6HP PRN Cough 5 days 05/20/23 Rx mg-100 mg/5 mL oral syrup #200 mL fluticasone fur. 100 mcg-umeclid 1 inh inhalation HS 30 days #1 ea 05/20/23 Rx 62.5 mcg-vilant 25 mcg inhalat.powder (Trelegy Ellipta) levofloxacin 750 mg tablet 750 mg PO 1200 3 days #3 tabs 05/20/23 Rx nicotine 21 mg/24 hr daily 21 mg transdermal DAILYP PRN 05/20/23 Rx transdermal patch Nicotine Cravings 30 days #30 ea New Prescriptions to Start Prescriptions: dextromethorphan-guaifenesin Heron Parikh [id number]-[id number] [Trelegy Ellipta] Heron Parikh levofloxacin Heron Parikh nicotine Heron Parikh Allergies Allergy/AdvReac Type Severity Reaction Status Date / Time celecoxib [From Celebrex] Allergy Severe RECTAL Verified 05/15/23 16:24 BLEEDING leflunomide Allergy Severe I-[id number]-DJOT/THROAT,TINGLING Verified 05/15/23 16:24 OF HANDS, SORE THROAT nortriptyline Allergy Severe Weakness Verified 05/15/23 16:24 cefdinir Allergy Intermediate I-ITCHING Verified 05/15/23 16:24 ciprofloxacin Allergy Intermediate I-HIVES, Verified 05/15/23 16:24 ITCHING gabapentin Allergy Intermediate BODY Verified 05/15/23 16:24 SWELLING nitrofurantoin Allergy Intermediate I-HIVES, Verified 05/15/23 16:24 [From Macrobid] ITCHING budesonide Allergy Mild Swelling Verified 05/15/23 16:24 [From Breztri Aerosphere] of Lip/Tongue/Throat formoterol Allergy Mild Swelling Verified 05/15/23 16:24 [From Breztri Aerosphere] of Lip/Tongue/Throat glycopyrrolate Allergy Mild Swelling Verified 05/15/23 16:24 [From Breztri Aerosphere] of Lip/Tongue/Throat naproxen [From NAPROSYN] Allergy Unknown THROAT Verified 05/15/23 16:24 SWELLS Penicillins Allergy Verified 05/15/23 16:24 tramadol Allergy Other Verified 05/15/23 16:24 levofloxacin [From Levaquin] AdvReac Intermediate HYPER , Verified 05/15/23 16:24 SHAKES dexamethasone AdvReac Mild SHAKES Verified 05/15/23 16:24 Discharge Plan Disposition Patient Disposition: Home Health Service Condition: Fair Discharge Order Discharge Orders: Discharge Order (Routine); Ordered 05/20/23 Ordered By: Heron Parikh Follow up Plan Follow up with: Sandra Orozco APRN [Primary Care Provider] - 05/24/23 3:00 pm Amara Espinoza MD [Physician] - 06/05/23 1:00 pm Prescriptions/Medication Reconciliation: [place] 100-62.5-25 mcg Blister With Device 1 inh inhalation HS 30 Days Qty: 1 0RF nicotine 21 mg/24 hr Patch 24 Hour 21 mg transdermal DAILYP PRN (Reason: Nicotine Cravings) 30 Days Qty: 30 0RF dextromethorphan-guaifenesin 10-100 mg/5 mL Syrup 10 ml PO Q6HP PRN (Reason: Cough) 5 Days Qty: 200 0RF levofloxacin 750 mg Tablet 750 mg PO 1200 3 Days Qty: 3 0RF Continued levocetirizine 5 mg tablet 5 mg PO HS 90 Days Qty: 90 1RF albuterol sulfate [Ventolin HFA] 90 mcg/actuation HFA aerosol inhaler 1 inh INHALATION QIDP PRN (Reason: Shortness Of Breath) albuterol sulfate 2.5 mg /3 mL (0.083 %) solution for nebulization 2.5 mg inhalation Q6H PRN (Reason: Breathing Problems) potassium chloride 10 mEq capsule, extended release 10 meq PO DAILY 90 Days Qty: 90 1RF dicyclomine 10 mg capsule 10 mg PO QID 90 Days Qty: 360 2RF venlafaxine [Effexor XR] 150 mg capsule,extended release 24hr 300 mg PO DAILY 90 Days Qty: 180 2RF Xarelto 15 mg tablet 15 mg PO QPMWITHMEAL 90 Days Qty: 90 2RF Rx Instructions: must administer with evening meal hydrocodone-acetaminophen 10-325 mg tablet 1 tab PO Q8H PRN (Reason: Pain) Qty: 30 0RF Prolia 60 mg/mL syringe 60 mg SQ [id number] Qty: 1 1RF bisoprolol fumarate 5 mg tablet 5 mg PO DAILY 90 Days Qty: 90 1RF tizanidine [Zanaflex] 4 mg tablet 4 mg PO QID 90 Days Qty: 360 1RF coenzyme Q10 [CoQ-10] 100 mg Capsule 300 mg PO DAILY Collagen Plus Vitamin C 125-740 mg Capsule 1 cap PO DAILY montelukast 10 mg tablet 10 mg PO PM 90 Days Qty: 90 1RF pramipexole 1.5 MG tablet 1.5 mg PO BID dexlansoprazole [Dexilant] 60 mg capsule,biphase delayed releas 60 mg PO DAILY Other Ambulatory Orders: Home Medical Equipment (Routine) Location: None Selected Ordered By: Heron Parikh Problem Reconciliation Problems Reviewed?: Yes Patient Discharge Instructions ACTIVITY: Continue current activity DIET: continue same diet Patient Instructions: Heart-Healthy Diet, DI for Chronic Obstructive Pulmonary Disease, Respiratory Failure, DI for COVID-19 (Suspected or Confirmed ) Providers Primary Care Provider: Sandra Orozco Admit Provider: Heron Parikh Attending Provider: Heron Parikh
--- NOTE | 2023-05-20 15:28 | SW/DCPLANNER ---
Addendum entered by Luann Luke 05/21/23 07:26: Celeste hernandez/ [facility] stated that services will start this week for patient. Original Note: I spoke w/ patient and her son regarding plans once medically stable for discharge. PT/OT evaluated patient and recommended home health services. Patient is agreeable to home health and does not have a preferred agency. Patient information/order will be faxed to [facility]: I will follow up once reviewed. Patient will discharge home today.
--- NOTE | 2023-05-21 10:46 | CARE MANAGER ---
Spoke with patient for post-discharge follow-up phone call, no issues noted.
== END 2023-05-20 16:18 | disposition home health service (06) | DRG 177 ==
LOC: ER 14:56 → 2ND 15:15 → ICU 05-20 04:42
PROVIDERS: Admitting Provider Internal Medicine Adolescent Medicine; Emergency Provider Student in an Organized Health Care Education/Training Program; PCP Nurse Practitioner Family; Visit Provider Internal Medicine Adolescent Medicine
DX: U07.1 COVID-19 (principal); J96.21 Acute and chronic respiratory failure with hypoxia; J44.1 Chronic obstructive pulmonary disease with (acute) exacerbation; I24.1 Dressler's syndrome; I10 Essential (primary) hypertension; M79.7 Fibromyalgia; Z86.73 Personal history of transient ischemic attack (TIA), and cerebral infarction without residual deficits; G25.81 Restless legs syndrome; G47.30 Sleep apnea, unspecified; F17.210 Nicotine dependence, cigarettes, uncomplicated; Z99.81 Dependence on supplemental oxygen; I73.9 Peripheral vascular disease, unspecified; F41.9 Anxiety disorder, unspecified; F32.A Depression, unspecified; E78.5 Hyperlipidemia, unspecified
CPT/HCPCS: 36415; 71045; 71046; 80053; 82803; 83605; 83735; 84484; 85025; 86140; 87040; 87636; 93005; 94640; 94761; 97163; 97165; 99291; J1956; J2405; J3475

== ENCOUNTER 2023-05-24 15:43 | Outpatient (CLI) | payer MEDICARE, OTHER, SELFPAY ==
--- NOTE | 2023-05-24 15:48 | XR_ITS ---
FINAL REPORT CLINICAL HISTORY: f/u COVID-19 COMPARISON: 05/20/2023 FINDINGS: TWO-VIEW CHEST The heart size is normal. The mediastinum is normal. There are worsening bibasilar opacities consistent with worsening atelectasis or pneumonia. Small bilateral effusions are identified. There is no pneumothorax. IMPRESSION: Worsening bibasilar opacities with small effusions. Reviewed, Interpreted and Dictated by Mamadou Dutton III, MD Transcribed by Deidre South Authenticated and [facility]
== END 2023-05-24 23:59 ==
PROVIDERS: PCP Nurse Practitioner Family; Visit Provider Nurse Practitioner Family
DX: U07.1 COVID-19 (principal); J44.1 Chronic obstructive pulmonary disease with (acute) exacerbation; Z87.891 Personal history of nicotine dependence
CPT/HCPCS: 71046

== ENCOUNTER 2023-05-27 11:48 | Emergency (ER) | payer MEDICARE, OTHER, SELFPAY ==
[2023-05-27] VITALS (8 sets, daily range): BP systolic 96–120; BP diastolic 55–80; PULSE 57–87; RESP 14–25; TEMP 36.5–36.8; O2SAT 91–98; BMI 32.0
--- NOTE | 2023-05-27 11:54 | ECG_ITS ---
APPROVED REPORT Exam: Resting ECG HR:57 bpm ECG Measurements Heart Rate 57 AXES TX 140 P 71 QRSd 85 QRS 64 QT 388 T 52 QTc 383 Conclusion SINUS BRADYCARDIA Electronically signed by : AISM MCKEON, 05/27/2023 15:34:37
--- NOTE | 2023-05-27 12:06 | XR_ITS ---
FINAL REPORT CLINICAL HISTORY: worsening cough since recent covid/flu COMPARISON: 05/24/2023 FINDINGS: A single portable view of the chest was obtained. The heart size and pulmonary vascularity are within normal limits. The mediastinum is within normal limits. Worsening bibasilar opacities likely represent atelectasis or pneumonia. The bony thorax is intact. IMPRESSION: Worsening bibasilar opacities, likely atelectasis or pneumonia. Reviewed, Interpreted and Dictated by Mamadou Dutton III, MD Transcribed by Kailey Castro Authenticated and [facility]
--- NOTE | 2023-05-27 12:09 | ED_ITS ---
Discharge Plan Disposition Chief Complaint: Shortness of Breath/Dyspnea Prescriptions Prescriptions: No Action levocetirizine 5 mg tablet 5 mg PO HS 90 Days Qty: 90 1RF albuterol sulfate [Ventolin HFA] 90 mcg/actuation HFA aerosol inhaler 1 inh INHALATION QIDP PRN (Reason: Shortness Of Breath) albuterol sulfate 2.5 mg /3 mL (0.083 %) solution for nebulization 2.5 mg inhalation Q6H PRN (Reason: Breathing Problems) potassium chloride 10 mEq capsule, extended release 10 meq PO DAILY 90 Days Qty: 90 1RF dicyclomine 10 mg capsule 10 mg PO QID 90 Days Qty: 360 2RF venlafaxine [Effexor XR] 150 mg capsule,extended release 24hr 300 mg PO DAILY 90 Days Qty: 180 2RF Xarelto 15 mg tablet 15 mg PO QPMWITHMEAL 90 Days Qty: 90 2RF Rx Instructions: must administer with evening meal hydrocodone-acetaminophen 10-325 mg tablet 1 tab PO Q8H PRN (Reason: Pain) Qty: 30 0RF Prolia 60 mg/mL syringe 60 mg SQ [id number] Qty: 1 1RF bisoprolol fumarate 5 mg tablet 5 mg PO DAILY 90 Days Qty: 90 1RF tizanidine [Zanaflex] 4 mg tablet 4 mg PO QID 90 Days Qty: 360 1RF coenzyme Q10 [CoQ-10] 100 mg Capsule 300 mg PO DAILY Collagen Plus Vitamin C 125-740 mg Capsule 1 cap PO DAILY Trelegy Ellipta 100-62.5-25 mcg Blister With Device 1 inh inhalation HS 30 Days Qty: 1 0RF nicotine 21 mg/24 hr Patch 24 Hour 21 mg transdermal DAILYP PRN (Reason: Nicotine Cravings) 30 Days Qty: 30 0RF dextromethorphan-guaifenesin 10-100 mg/5 mL Syrup 10 ml PO Q6HP PRN (Reason: Cough) 5 Days Qty: 200 0RF montelukast 10 mg tablet 10 mg PO PM 90 Days Qty: 90 1RF pramipexole 1.5 MG tablet 1.5 mg PO BID dexlansoprazole [Dexilant] 60 mg capsule,biphase delayed releas 60 mg PO DAILY Referrals Follow up/Referrals: Sandra Orozco APRN [Primary Care Provider] - See instructions Clinical Impressions Clinical Impression: Chronic respiratory failure, Acute exacerbation of chronic obstructive pulmonary disease, Pulmonary edema Discharge ED Provider: Sharron Roblero General Adult HPI General Chief complaint: Shortness of Breath/Dyspnea Stated complaint: Poss pnemonia, low O2 Time Seen by Provider: 05/27/23 11:52 History of Present Illness HPI narrative: This patient is a 63-year-old female with a history of COPD previously on O2 supplementation at night but has been wearing it throughout the day since discharge from the hospital 05/20/23, hypertension, hyperlipidemia, degenerative disc disease, chronic pain, anxiety, cardiomegaly, and bilateral lower extremity edema presenting to the emergency department for evaluation with concern for shortness of breath. Patient was admitted here in the hospital 05/15/2023 through 05/20/2023 for acute respiratory failure in the setting of COVID 19 and influenza pneumonia. She was discharged home on Levaquin and home oxygen with instructions to continue using her inhalers and breathing treatments at home. She notes she has been using them approximately every 4 hours but has continued to be short of breath, especially with exertion. She also notes that she previously only wear oxygen at night, however she has been wearing it all the time since discharge. She has been on 2 L. Home health has been evaluating her as well as her primary care provider with noted that she is continue to have low oxygen. Repeat chest x-ray was obtained 05/24/2023, and I independently reviewed it and noted that she had concerns for bilateral pleural effusions and worsened atelectasis. No obvious large focal consolidation that I feel is consistent with pneumonia, and she has not been having fevers. No other concerns noted at this time. Related Data Home Medications Medication Instructions Recorded Confirmed albuterol sulfate 90 mcg/actuation 1 inh inhalation QIDP PRN 08/10/20 05/24/23 aerosol inhaler (Ventolin HFA) Shortness Of Breath pramipexole 1.5 mg tablet 1.5 mg PO BID parkinsons disease 03/08/21 05/24/23 albuterol sulfate 2.5 mg/3 mL 2.5 mg inhalation Q6H PRN 11/19/22 05/24/23 (0.083 %) solution for nebulization Breathing Problems dexlansoprazole 60 mg 60 mg PO DAILY stomach 11/20/22 05/24/23 capsule,biphase delayed release (Dexilant) ascorbic acid 125 mg-collagen, 1 cap PO DAILY 05/16/23 05/24/23 hydrolyzed 740 mg capsule (Collagen Plus Vitamin C) coenzyme Q10 100 mg capsule 300 mg PO DAILY 05/16/23 05/24/23 (CoQ-10) Previous Rx's Medication Instructions Recorded rivaroxaban 15 mg tablet (Xarelto) 15 mg PO QPMWITHMEAL Blood thinner 12/24/22 90 days #90 tabs bisoprolol fumarate 5 mg tablet 5 mg PO DAILY Hypertension 90 days 03/27/23 #90 tabs dicyclomine 10 mg capsule 10 mg PO QID 90 days #360 caps 03/27/23 levocetirizine 5 mg tablet 5 mg PO HS Allergy symptoms 90 03/27/23 days #90 tabs montelukast 10 mg tablet 10 mg PO PM ALLERGIES 90 days #90 03/27/23 tabs potassium chloride 10 mEq 10 meq PO DAILY 90 days #90 caps 03/27/23 capsule,extended release tizanidine 4 mg tablet (Zanaflex) 4 mg PO QID 90 days #360 tabs 03/27/23 venlafaxine 150 mg 300 mg (2 x 150 mg) PO DAILY 90 03/29/23 capsule,extended release 24 hr days #180 caps (Effexor XR) hydrocodone 10 mg-acetaminophen 1 tab PO Q8H PRN Pain #30 tabs 05/01/23 325 mg tablet denosumab 60 mg/mL subcutaneous 60 mg SQ [id number] #1 mL 05/17/23 syringe (Prolia) dextromethorphan-guaifenesin 10 10 ml PO Q6HP PRN Cough 5 days 05/20/23 mg-100 mg/5 mL oral syrup #200 mL fluticasone fur. 100 mcg-umeclid 1 inh inhalation HS 30 days #1 ea 05/20/23 62.5 mcg-vilant 25 mcg inhalat.powder (Trelegy Ellipta) nicotine 21 mg/24 hr daily 21 mg transdermal DAILYP PRN 05/20/23 transdermal patch Nicotine Cravings 30 days #30 ea Allergies Allergy/AdvReac Type Severity Reaction Status Date / Time celecoxib [From Celebrex] Allergy Severe RECTAL Verified 05/24/23 14:46 BLEEDING leflunomide Allergy Severe [id number]/THROAT,TINGLING Verified 05/24/23 14:46 OF HANDS, SORE THROAT nortriptyline Allergy Severe Weakness Verified 05/24/23 14:46 cefdinir Allergy Intermediate I-ITCHING Verified 05/24/23 14:46 ciprofloxacin Allergy Intermediate I-HIVES, Verified 05/24/23 14:46 ITCHING gabapentin Allergy Intermediate BODY Verified 05/24/23 14:46 SWELLING nitrofurantoin Allergy Intermediate I-HIVES, Verified 05/24/23 14:46 [From Macrobid] ITCHING budesonide Allergy Mild Swelling Verified 05/24/23 14:46 [From Breztri Aerosphere] of Lip/Tongue/Throat formoterol Allergy Mild Swelling Verified 05/24/23 14:46 [From Breztri Aerosphere] of Lip/Tongue/Throat glycopyrrolate Allergy Mild Swelling Verified 05/24/23 14:46 [From Breztri Aerosphere] of Lip/Tongue/Throat naproxen [From NAPROSYN] Allergy Unknown THROAT Verified 05/24/23 14:46 SWELLS Penicillins Allergy Verified 05/24/23 14:46 tramadol Allergy Other Verified 05/24/23 14:46 levofloxacin [From Levaquin] AdvReac Intermediate HYPER , Verified 05/24/23 14:46 SHAKES dexamethasone AdvReac Mild SHAKES Verified 05/24/23 14:46 PFSH PFSH Disclaimer: The information contained in this section may have been updated after the patient was seen, as this information can be updated by other users. Medical History Spinal stenosis Degenerative disc disease Anxiety Depression Fibromyalgia Sleep apnea Restless leg syndrome History of transient ischemic attack (TIA) Irritable bowel syndrome (IBS) Tobacco abuse HLD (hyperlipidemia) HTN (hypertension) Surgical History History of tonsillectomy History of cataract surgery Previous back surgery Hx of cholecystectomy History of removal of both ovaries History of partial hysterectomy Family History Father Hypertension Coronary artery disease Mother Pancreatic cancer Social History Smoking Status: Former smoker tobacco type: cigarettes packs per day: 2 years smoked: 45 smoking status stop date: 2 months ago second hand exposure: Yes alcohol intake: former substance use type: denies use current occupational status: retired Travel in the last 8 weeks: None household members: none housing: house current occupational exposures/hazards: No caffeine: Yes ROS Obtained: Yes All systems reviewed & no additional complaints except as documented Physical Exam General General appearance: alert, in no apparent distress and obese Head Head exam: atraumatic and normocephalic Eye Eye exam: Present normal appearance, PERRL and EOMI ENT ENT exam: Present normal exam, normal oropharynx, mucous membranes moist and normal external ear exam Neck Neck exam: Present normal inspection, full ROM and trachea midline; Absent tenderness Chest Chest inspection: Present normal inspection and symmetric chest wall rise; Absent tenderness Respiratory Respiratory exam: Present wheezes, prolonged expiratory phase and other (Wheezes, worse in the lung bases bilaterally. No increased work of breathing.); Absent respiratory distress, stridor or accessory muscle use Cardiovascular Cardiovascular exam: Present regular rate and normal rhythm Abdominal Exam Abdominal exam: Present soft; Absent distention, tenderness or guarding Extremities Exam Extremities exam: Present full ROM, normal capillary refill and edema (1+ bilateral lower extremity edema that is symmetric); Absent tenderness Back Exam Back exam: Present normal inspection and full ROM; Absent tenderness Neurological Exam Neurological exam: Present alert, oriented X3, CN II-XII intact and normal gait; Absent motor sensory deficit Psychiatric Psychiatric exam: Present normal affect and normal mood Skin Skin exam: Present warm and dry Medical Decision Making Medical Records Medical records reviewed: Yes I reviewed the patient's medical records. Rashaad Inquiry Pt receiving controlled substance: No Vital Signs: 05/27/23 11:49 05/27/23 12:01 Temperature 97.7 F Temperature Source Oral Pulse Rate 59 L Pulse Rate [Right] 57 L Respiratory Rate 23 22 Blood Pressure 109/63 L Blood Pressure [Right Arm] 109/63 L Blood Pressure Mean 78 Blood Pressure Mean [Right Arm] 78 Blood Pressure Source [Right Arm] Automatic Cuff 02 Sat by Pulse Oximetry 92 L 94 L Oxygen Delivery Method Nasal Cannula Nasal Cannula Oxygen Flow Rate (LPM) 3 3 Lab Data Lab results reviewed: Yes I reviewed the patient's lab results. Lab Results 05/27/23 11:55: WBC 9.5, RBC 4.88, Hgb 11.6 L, Hct 37.4, MCV 76.6 L, MCH 23.7 L, MCHC 30.9 L, RDW 18.9 H, Plt Count 304, MPV 8.0, Neut % (Auto) 70.0, Lymph % (Auto) 22.5, Kidder % (Auto) 4.3, Eos % (Auto) 1.7, Baso % (Auto) 1.4, Neut # (Auto) 6.7, Lymph # (Auto) 2.1, Kidder # (Auto) 0.4, Eos # (Auto) 0.2, Baso # (Auto) 0.1, Sodium 138, Potassium 3.9, Chloride 103, Carbon Dioxide 33 H, Anion Gap 5.9, BUN 16, Creatinine 0.90, Estimated GFR 63, Est GFR ( Amer) 76, Glucose 91, Calcium 8.8, Total Bilirubin 0.4, AST 31, ALT 22, Alkaline Phosphatase 121, Troponin I < 0.01, NT-Pro-B Natriuret Pep 196 H, Total Protein 5.9 L, Albumin 3.1 L, Globulin 2.8, Albumin/Globulin Ratio 1.1 05/27/23 12:06: VBG pH 7.42 H, VBG pCO2 48.3, VBG pO2 124.4 H, VBG HCO3 30.6 H, VBG Total CO2 32.0 H, VBG O2 Saturation 98.6 H, VBG Base Excess 6.1 H, VBG Lactic Acid 1.6 05/27/23 11:55 05/27/23 11:55 Orders (Tests/Meds): ED MEDICATIONS Discontinued Medications Generic Name Dose Route Start Last Admin Trade Name Freq PRN Reason Stop Dose Admin Albuterol/Ipratropium 9 ml 05/27/23 12:07 05/27/23 12:31 Ipratropium/Albuterol 3 Ml Neb IH 05/27/23 12:08 9 ml ONCE ONE Administration Furosemide 40 mg 05/27/23 14:39 05/27/23 15:12 Furosemide 40mg/4ml Vial IV 05/27/23 14:40 40 mg ONCE ONE Administration Methylprednisolone Sodium Succinate 125 mg 05/27/23 12:07 05/27/23 12:31 Methylprednisolone Sod Succ 125mg Vial IV 05/27/23 12:08 125 mg ONCE ONE Administration ORDERS Category Date Time Status CTA Chest [CT angio chest PE protocol] Stat Cat Scan 05/27/23 15:29 Ordered XR chest portable Stat Exams 05/27/23 12:06 Completed Brain Natriuretic Peptide Stat Lab 05/27/23 11:55 Completed Complete Blood Count Auto Diff AMLAB Lab 05/28/23 06:00 Ordered Complete Blood Count Auto Diff Stat Lab 05/27/23 11:55 Completed Comprehensive Metabolic Panel AMLAB Lab 05/28/23 06:00 Ordered Comprehensive Metabolic Panel Stat Lab 05/27/23 11:55 Completed Magnesium AMLAB Lab 05/28/23 06:00 Ordered Troponin I Q3H Lab 05/27/23 13:14 Received Troponin I Q3H Lab 05/27/23 18:15 Ordered Troponin I Stat Lab 05/27/23 11:55 Completed Venous Blood Gas Stat RT 05/27/23 12:06 Completed ECG Data Tracing #1: I reviewed this ECG and interpreted as documented below: Sinus bradycardia with a ventricular rate of [address] elevations concerning for ischemia. Normal axis and intervals ECG initial impression date: 05/27/23 ECG initial impression time: 11:56 HEART Score History (anamnesis): Slightly suspicious ECG: Normal Age: 45-65 years Risk factors: Atherosclerosis history Troponin: </= normal limit HEART Score: 3 Medical Decision Narrative: In summary, this patient is a 63-year-old female presenting to the Emergency Department for evaluation of shortness of breath. Differential diagnoses considered include but are not limited to acute on chronic respiratory failure, COPD exacerbation, CHF, pneumonia, ACS, dysrhythmia. Ruling out the most morbid conditions drove assessment. On exam, the patient is well-appearing. She has no increased work of breathing and vitals are reassuring on 2 L nasal cannula. She notes that she has been wearing oxygen since discharge, though she was only previously on it at night. Workup included CBC, CMP, troponin, VBG, BNP, chest x-ray, and EKG. She was given 3 DuoNebs as well as IV methylprednisolone for wheezing. Based on her x- ray that I reviewed, it is possible her wheezing is from volume overload. I do not see a prior echocardiogram in our medical records or any previous definitive diagnosis of CHF, though the patient does have history of cardiomegaly and edema. EKG is reassuring. I independently interpreted x-ray prior to the radiologist read and noted for cardiomegaly and pulmonary edema. Please see their read for final interpretation. They noted concern for infection, though the patient is not having fevers and she has no significant leukocytosis. It is possible this could be pneumonia, however feel it is more likely to be related to volume overload. Labs demonstrated mildly elevated BNP but are otherwise not overtly concerning. Ultimately after nebulizer treatments, the patient had improvement in her cardiopulmonary exam but she continues to have hypoxia. We titrated her oxygen up to 5 L nasal cannula with her maintaining anywhere from 88 to 90%. We were unable to successfully wean her down without her desaturating. Given concerns for volume overload, I did give 40 of IV Lasix. She does not take diuretic at home per her medical records or for the patient. Ultimately, I had a discussion with the patient regarding potentially going home with continued oxygen at home and diuresis, however patient and her family states they do not feel comfortable with this because her oxygen has been fluctuating so much and she has been feeling so bad. Given this, I had an interactive discussion with Dr. Parikh who admitted the patient for further evaluation and management. Critical Care Critical Care Time Critical Care Time: No
[2023-05-27 12:21] LABS: Basophils # 0.1 K/mm3 (0-0.2); Basophils % 1.4 % (0.1-2.0); Eosinophils # 0.2 K/mm3 (0.0-0.4); Eosinophils % 1.7 % (0.1-12.0); Hematocrit 37.4 % (37.0-47.0); Hemoglobin 11.6 g/dL (12.2-16.2); Lymphocytes # 2.1 K/mm3 (0.7-4.5); Lymphocytes % 22.5 % (10-50); Mean Corpuscular HGB Conc 30.9 g/dL (31.8-35.4); Mean Corpuscular Hemoglobin 23.7 pg (27.0-31.2); Mean Corpuscular Volume 76.6 fl (81-99); Monocytes # 0.4 K/mm3 (0.1-1.0); Monocytes % 4.3 % (1.7-9.3); Neutrophils # 6.7 K/mm3 (1.8-7.8); Platelet Count 304 K/mm3 (142-424); Red Blood Count 4.88 M/mm3 (4.20-5.40); Red Cell Distribution Width 18.9 % (11.5-17.5); White Blood Count 9.5 K/mm3 (4.8-10.8)
[2023-05-27 12:31] LABS: Chloride 103 mmol/L (98-107); Potassium 3.9 mmoL/L (3.5-5.1); Sodium 138 mmol/L (136-145)
[2023-05-27] MEDS: IPRATROPIUM/ALBUTEROL 3 ML NEB 9 ML IH (12:31)
[2023-05-27] MEDS: METHYLPREDNISOLONE SOD SUCC 125MG VIAL 125 MG IV (12:31)
[2023-05-27 12:34] LABS: Alanine Aminotransferase 22 U/L (12-78); Albumin Level 3.1 g/dl (3.5-5.0); Albumin/Globulin Ratio 1.1 (1.1-1.8); Alkaline Phosphatase 121 U/L (38-126); Anion Gap 5.9 mEq/L (5-15); Aspartate Amino Transferase 31 U/L (14-36); Bilirubin,Total 0.4 mg/dl (0.2-1.3); Blood Urea Nitrogen 16 mg/dl (7-17); Carbon Dioxide 33 mmol/L (22.0-30.0); Estimated Glomerular Filt Rate 63 ml/min (>60); GFR (African American) 76 ML/MIN (>60); Globulin 2.8 g/dL (1.3-3.2); Total Protein,Serum 5.9 g/dl (6.3-8.2)
[2023-05-27 12:35] LABS: Calcium 8.8 mg/dl (8.4-10.2); Glucose 91 mg/dl (74-100)
[2023-05-27 12:38] LABS: Lactate Venous 1.6 mmol/L (0.4-2.0); VBG Base Excess 6.1 mmol/L (-2.4-2.3); VBG HCO3 30.6 mmol/L (23-30); VBG Oxygen Saturation 98.6 % (50-70); VBG PCO2 48.3 mmol/L (35-51); VBG PH 7.42 mmol/L (7.31-7.41); VBG PO2 124.4 mmol/L (28-40)
[2023-05-27 12:44] LABS: NT Pro Brain Natriuretic Pep. 196 pg/mL (0-125)
[2023-05-27 13:23] LABS: Troponin I < 0.01 ng/ml (0.00-0.034)
--- NOTE | 2023-05-27 13:36 | PC.NURSE ---
Rounded on patient, no needs at this time.
--- NOTE | 2023-05-27 14:39 | PC.NURSE ---
Dr Moncada speaking to Dr Parikh
[2023-05-27] MEDS: FUROSEMIDE 40MG/4ML VIAL 40 MG IV (15:12)
--- NOTE | 2023-05-27 15:16 | PC.NURSE ---
Bedside commode set up in pt's room with hat to record duiresis. Lasix given at this time.
--- NOTE | 2023-05-27 15:29 | CT_ITS ---
FINAL REPORT TECHNIQUE: Then section axial CT images of the chest were obtained with contrast. Three-D reformatted images were also obtained.This study was performed with techniques to keep radiation doses as low as reasonably achievable (ALARA). Individualized dose reduction techniques using automated exposure control or adjustment of mA and/or kV according to the patient''s size were employed. CLINICAL HISTORY: increased hypoxia FINDINGS: There is no evidence of pulmonary embolism. There is no evidence of thoracic aortic aneurysm or dissection. There is mild mediastinal and hilar adenopathy which is nonspecific and favored to be reactive. There is moderate peripheral fibrosis/scarring. Bilateral lower lobe consolidation is favored to represent atelectasis. Superimposed pneumonia is not excluded. Limited images of the upper abdomen demonstrate postoperative changes from cholecystectomy. IMPRESSION: No evidence of pulmonary embolism. Bilateral lower lobe consolidation, favor atelectasis. Superimposed pneumonia is not excluded. Reviewed, Interpreted and Dictated by Mamadou Dutton III, MD Transcribed by Florinda Braden Authenticated and [facility]
--- NOTE | 2023-05-27 15:47 | PC.NURSE ---
Pt gone to CT at this time
[2023-05-27] MEDS: IOPAMIDOL-370 (76%);100ML BOTTLE 75 ML IV (15:57)
[2023-05-27] MEDS: 0.9 % SODIUM CHLORIDE 50 ML VIAL IV (15:57)
[2023-05-27] MEDS: SODIUM CHLORIDE 0.9% 10ML SYR (RAD ONLY) 10 ML IV (15:57)
[2023-05-27 16:08] LABS: Troponin I < 0.01 ng/ml (0.00-0.034)
[2023-05-27] MEDS: IPRATROPIUM/ALBUTEROL 3 ML NEB IH (18:15)
--- NOTE | 2023-05-27 18:40 | PC.NURSE ---
This RN s/e Dr. Benjamin regarding pt's understood Admit vs diurese & d/c . Pt had been diuresing in ER and decreased 5lpm nc to 3 lpm nc after 1,[address]. [address] Benjamin, he stated I thought Sharron [Dr. Roblero] talked to Dirk [Dr. Parikh] about admitting her [Ms Cruz] . I then s/w freight loading supervisor, Arnulfo Abel RN, states Dr. Parikh he was admitting her but because it was taking so long he cancelled his orders and we could call again when you're [ER] ready to admit . Dr. Benjamin was updated to this information and he s/w Dr. Parikh & pt. It was agreed pt is ok to d/c on 3lpm nc. Dr. Benjamin s/w with patient for 12 minutes, she felt comfortable going home. Educated to return to ER with any changes.
== END 2023-05-27 19:35 | disposition home or self-care (01) ==
PROVIDERS: Emergency Provider Emergency Medicine; PCP Nurse Practitioner Family
DX: J44.1 Chronic obstructive pulmonary disease with (acute) exacerbation (principal); J96.20 Acute and chronic respiratory failure, unspecified whether with hypoxia or hypercapnia; J81.0 Acute pulmonary edema; I10 Essential (primary) hypertension; E78.5 Hyperlipidemia, unspecified; G47.30 Sleep apnea, unspecified; Z86.73 Personal history of transient ischemic attack (TIA), and cerebral infarction without residual deficits; Z87.891 Personal history of nicotine dependence; R00.1 Bradycardia, unspecified
CPT/HCPCS: 71045; 71275; 80053; 82803; 83880; 84484; 85025; 93005; 96374; 96375; 99285; Q9967

== ENCOUNTER 2023-06-05 13:53 | Outpatient (CLI) | payer MEDICARE, OTHER, SELFPAY ==
[2023-06-05 15:13] LABS: C-Reactive Protein 9.5 mg/L (0-4)
[2023-06-07 10:20] LABS: Antinuclear Antibodies (ANA) Negative
== END 2023-06-05 23:59 ==
PROVIDERS: PCP Nurse Practitioner Family; Visit Provider Internal Medicine Pulmonary Disease
DX: R06.09 Other forms of dyspnea (principal); J84.9 Interstitial pulmonary disease, unspecified; Z87.891 Personal history of nicotine dependence
CPT/HCPCS: 36415; 86038; 86140

== ENCOUNTER 2023-06-26 16:42 | Outpatient (CLI) | payer MEDICARE, OTHER, SELFPAY ==
[2023-06-26 17:48] LABS: Alanine Aminotransferase 28 U/L (12-78); Albumin Level 4.6 g/dl (3.5-5.0); Albumin/Globulin Ratio 1.6 (1.1-1.8); Alkaline Phosphatase 131 U/L (38-126); Anion Gap 15.7 mEq/L (5-15); Aspartate Amino Transferase 34 U/L (14-36); Bilirubin,Total 0.4 mg/dl (0.2-1.3); Blood Urea Nitrogen 31 mg/dl (7-17); Carbon Dioxide 31 mmol/L (22.0-30.0); Chloride 99 mmol/L (98-107); Estimated Glomerular Filt Rate 50 ml/min (>60); GFR (African American) 60 ML/MIN (>60); Globulin 2.8 g/dL (1.3-3.2); Glucose 102 mg/dl (74-100); Potassium 4.7 mmoL/L (3.5-5.1); Sodium 141 mmol/L (136-145); Total Protein,Serum 7.4 g/dl (6.3-8.2)
[2023-06-26 18:18] LABS: Thyroid Stimulating Hormone 0.73 uIU/mL (0.465-4.68)
== END 2023-06-26 23:59 | disposition home or self-care (01) ==
LOC: LAB.DROPOF 16:43
PROVIDERS: PCP Nurse Practitioner Family; Visit Provider Nurse Practitioner Family
DX: E78.5 Hyperlipidemia, unspecified (principal); I10 Essential (primary) hypertension; J84.10 Pulmonary fibrosis, unspecified; J84.9 Interstitial pulmonary disease, unspecified
CPT/HCPCS: 80053; 84443

== ENCOUNTER 2023-07-23 13:55 | Outpatient (CLI) | payer MEDICARE, OTHER, SELFPAY ==
[2023-07-23 18:53] LABS: Alanine Aminotransferase 24 U/L (12-78); Albumin/Globulin Ratio 1.6 (1.1-1.8); Alkaline Phosphatase 134 U/L (38-126); Anion Gap 11.8 mEq/L (5-15); Aspartate Amino Transferase 34 U/L (14-36); Bilirubin,Total 0.3 mg/dl (0.2-1.3); Blood Urea Nitrogen 26 mg/dl (7-17); Calcium 9.6 mg/dl (8.4-10.2); Carbon Dioxide 34 mmol/L (22.0-30.0); Chloride 98 mmol/L (98-107); Estimated Glomerular Filt Rate 63 ml/min (>60); GFR (African American) 76 ML/MIN (>60); Globulin 2.5 g/dL (1.3-3.2); Glucose 94 mg/dl (74-100); Magnesium 2.1 mg/dl (1.6-2.3); Potassium 4.8 mmoL/L (3.5-5.1); Sodium 139 mmol/L (136-145); Total Protein,Serum 6.5 g/dl (6.3-8.2)
== END 2023-07-23 23:59 | disposition home or self-care (01) ==
LOC: LAB.DROPOF 07-24 10:14
PROVIDERS: PCP Nurse Practitioner Family; Visit Provider Nurse Practitioner Family
DX: R25.2 Cramp and spasm (principal)
CPT/HCPCS: 80053; 83735

== ENCOUNTER 2023-08-13 12:39 | Outpatient (CLI) | payer MEDICARE, OTHER, SELFPAY ==
[2023-08-13 13:40] VITALS: PULSE 75; PULSE 80
[2023-08-13] MEDS: ALBUTEROL 0.083% 2.5 MG/3 ML NEB IH (13:40)
== END 2023-08-13 23:59 | disposition home or self-care (01) ==
LOC: RT 12:40
PROVIDERS: PCP Nurse Practitioner Family; Visit Provider Internal Medicine Pulmonary Disease
DX: R06.09 Other forms of dyspnea (principal)
CPT/HCPCS: 94060; 94618; 94640; 94726; 94729

== ENCOUNTER 2023-08-22 08:57 | Outpatient (CLI) | payer MEDICARE, OTHER, SELFPAY | END 2023-08-22 23:59 | disposition home or self-care (01) | LOC: LAB 08:59 | PROVIDERS: PCP Nurse Practitioner Family; Visit Provider Nurse Practitioner Family | DX: Z02.9 Encounter for administrative examinations, unspecified (principal) ==

== ENCOUNTER 2023-09-02 08:36 | Outpatient (CLI) | payer MEDICARE, OTHER, SELFPAY ==
[2023-09-02 09:23] LABS: Basophils # 0.1 K/mm3 (0-0.2); Basophils % 0.9 % (0.1-2.0); Eosinophils # 0.2 K/mm3 (0.0-0.4); Eosinophils % 2.3 % (0.1-12.0); Hematocrit 35.5 % (37.0-47.0); Hemoglobin 10.9 g/dL (12.2-16.2); Lymphocytes # 2.1 K/mm3 (0.7-4.5); Lymphocytes % 30.7 % (10-50); Mean Corpuscular HGB Conc 30.6 g/dL (31.8-35.4); Mean Corpuscular Hemoglobin 25.9 pg (27.0-31.2); Mean Corpuscular Volume 84.7 fl (81-99); Mean Platelet Volume 8.2 fl (7.4-10.4); Monocytes # 0.4 K/mm3 (0.1-1.0); Monocytes % 6.2 % (1.7-9.3); Neutrophils % 59.9 % (37.0-80.0); Platelet Count 261 K/mm3 (142-424); Red Cell Distribution Width 17.9 % (11.5-17.5); White Blood Count 6.7 K/mm3 (4.8-10.8)
[2023-09-02 10:37] LABS: Thyroid Stimulating Hormone 2.94 uIU/mL (0.465-4.68)
[2023-09-02 10:41] LABS: Ferritin 11.9 ng/ml (11.1-264)
[2023-09-02 11:54] LABS: Vitamin B12 564 pg/mL (239-931)
[2023-09-03 10:14] LABS: Insulin Level Total 27.2 uIU/mL (2.6-24.9)
== END 2023-09-02 23:59 | disposition home or self-care (01) ==
LOC: LAB 08:37
PROVIDERS: PCP Nurse Practitioner Family; Visit Provider Nurse Practitioner Family
DX: R53.83 Other fatigue (principal); D64.9 Anemia, unspecified; Z68.33 Body mass index [BMI] 33.0-33.9, adult
CPT/HCPCS: 82533; 82607; 82728; 83525; 84443; 85025

== ENCOUNTER 2023-09-14 07:59 | Outpatient (CLI) | payer MEDICARE, OTHER, SELFPAY | END 2023-09-14 23:59 | disposition home or self-care (01) | LOC: LAB 08:01 | PROVIDERS: PCP Nurse Practitioner Family; Visit Provider Nurse Practitioner Family | DX: R79.89 Other specified abnormal findings of blood chemistry (principal); R53.83 Other fatigue | CPT/HCPCS: 36415; 82024; 82533 ==

== ENCOUNTER 2023-09-25 08:17 | Outpatient (CLI) | payer MEDICARE, OTHER, SELFPAY ==
--- NOTE | 2023-09-25 10:28 | XR_ITS ---
FINAL REPORT CLINICAL HISTORY: LBP COMPARISON: None available. FINDINGS: AP, lateral, and oblique views of the lumbar spine were obtained. There is a compression fracture of the superior endplate of L2 of age indeterminant. There is 25% loss of vertebral body height anteriorly. Remaining vertebral body height is preserved. Alignment is normal in the sagittal plane. Multilevel degenerative disc disease is noted. No acute paraspinal abnormality is identified. IMPRESSION: L2 compression fracture with 25% loss of vertebral body height of age-indeterminate. Consider MRI if indicated. Authenticated and [facility]
--- NOTE | 2023-09-25 10:29 | XR_ITS ---
FINAL REPORT CLINICAL HISTORY: LBP FINDINGS: AP and lateral views of the sacrum and coccyx were obtained. There is no prior exam for comparison. There is no acute fracture or other acute osseous abnormality. There is degenerative joint disease at the SI joints bilaterally. The sacrococcygeal articulation appears within normal limits. No acute soft tissue abnormality is present. IMPRESSION: No acute abnormality of the sacrum or coccyx. Authenticated and [facility]
== END 2023-09-25 23:59 | disposition home or self-care (01) ==
PROVIDERS: PCP Nurse Practitioner Family; Visit Provider Nurse Practitioner Family
DX: M54.50 Low back pain, unspecified (principal)
CPT/HCPCS: 72110; 72220

== ENCOUNTER 2023-09-28 10:14 | Outpatient (CLI) | payer MEDICARE, OTHER, SELFPAY | END 2023-09-28 23:59 | disposition home or self-care (01) | LOC: LAB.DROPOF 10:15 | PROVIDERS: PCP Nurse Practitioner Family; Visit Provider Nurse Practitioner Family | DX: R79.89 Other specified abnormal findings of blood chemistry (principal); R53.83 Other fatigue | CPT/HCPCS: 82533 ==

== ENCOUNTER 2023-11-04 09:24 | Outpatient (CLI) | payer MEDICARE, OTHER, SELFPAY ==
--- NOTE | 2023-11-04 09:25 | CT_ITS ---
FINAL REPORT TECHNIQUE: Axial images through the chest were performed by computed tomography. This study was performed with techniques to keep radiation doses as low as reasonably achievable, (ALARA). Individualized dose reduction techniques using automated exposure control or adjustment of mA and/or kV according to the patient's size were employed. CLINICAL HISTORY: Abnormal CT/Effusion/Fibrosis/PNM COMPARISON: CTA of the chest 05/27/2023 FINDINGS: CT CHEST WITHOUT CONTRAST: There are calcified precarinal and subcarinal lymph nodes present. There are dense calcifications present in the aortic arch. The heart size is normal. There is no pericardial or pleural effusion. Limited images of the upper abdomen are unremarkable. When compared to the prior exam of May 26, the infiltrates noted on the prior exam have markedly improved along with aeration in the lung bases bilaterally. There is minimal residual atelectasis noted. IMPRESSION: The infiltrates noted on the prior exam of May 26 have markedly improved with minimal residual atelectasis in the bases. Reviewed, Interpreted and Dictated by Delbert Boo MD Transcribed by Anais Fierro Authenticated and [facility]
== END 2023-11-04 23:59 | disposition home or self-care (01) ==
LOC: RAD 09:25
PROVIDERS: PCP Nurse Practitioner Family; Visit Provider Internal Medicine Pulmonary Disease
DX: R91.8 Other nonspecific abnormal finding of lung field (principal)
CPT/HCPCS: 71250

== ENCOUNTER 2023-12-16 15:27 | Outpatient (CLI) | payer MEDICARE, OTHER, SELFPAY ==
[2023-12-16 16:55] LABS: Basophils # 0.1 K/mm3 (0-0.2); Basophils % 1.1 % (0.1-2.0); Eosinophils # 0.2 K/mm3 (0.0-0.4); Eosinophils % 4.5 % (0.1-12.0); Hematocrit 37.2 % (37.0-47.0); Hemoglobin 11.2 g/dL (12.2-16.2); Lymphocytes # 1.3 K/mm3 (0.7-4.5); Lymphocytes % 25.8 % (10-50); Mean Corpuscular HGB Conc 30.3 g/dL (31.8-35.4); Mean Corpuscular Hemoglobin 23.1 pg (27.0-31.2); Mean Corpuscular Volume 76.2 fl (81-99); Mean Platelet Volume 8.5 fl (7.4-10.4); Monocytes # 0.3 K/mm3 (0.1-1.0); Monocytes % 4.8 % (1.7-9.3); Neutrophils # 3.3 K/mm3 (1.8-7.8); Neutrophils % 63.7 % (37.0-80.0); Platelet Count 238 K/mm3 (142-424); Red Blood Count 4.88 M/mm3 (4.20-5.40); White Blood Count 5.2 K/mm3 (4.8-10.8)
[2023-12-16 17:14] LABS: Alanine Aminotransferase 12 U/L (12-78); Albumin Level 4.3 g/dl (3.5-5.0); Albumin/Globulin Ratio 1.8 (1.1-1.8); Alkaline Phosphatase 180 U/L (38-126); Anion Gap 4.9 mEq/L (5-15); Aspartate Amino Transferase 28 U/L (14-36); Bilirubin,Total 0.5 mg/dl (0.2-1.3); Blood Urea Nitrogen 24 mg/dl (7-17); Calcium 9.5 mg/dl (8.4-10.2); Carbon Dioxide 38 mmol/L (22.0-30.0); Chloride 98 mmol/L (98-107); Chol/HDL Ratio 4.4 (1-3.5); Cholesterol 222 mg/dl (140-200); Estimated Glomerular Filt Rate 63 ml/min (>60); GFR (African American) 76 ML/MIN (>60); Globulin 2.4 g/dL (1.3-3.2); Glucose 85 mg/dl (74-100); HDL Cholesterol 51 mg/dl (40-60); Magnesium 1.7 mg/dl (1.6-2.3); Potassium 3.9 mmoL/L (3.5-5.1); Sodium 137 mmol/L (136-145); Total Protein,Serum 6.7 g/dl (6.3-8.2); Triglycerides 112 mg/dl (30-150); VLDL Cholesterol 22 mg/dL (0-40)
[2023-12-16 17:25] LABS: Direct LDL Cholesterol 117.11 mg/dL (100-129)
[2023-12-16 17:44] LABS: Thyroid Stimulating Hormone 1.81 uIU/mL (0.465-4.68)
[2023-12-20 15:20] LABS: Alkaline Phosphatase 230 IU/L (44-121); Bone Fraction: 29 % (14-68); Intestinal Frac.: 56 % (0-18); Liver Fraction: 14 % (18-85)
== END 2023-12-16 23:59 | disposition home or self-care (01) ==
LOC: LAB.DROPOF 12-17 09:04
PROVIDERS: PCP Nurse Practitioner Family; Visit Provider Nurse Practitioner Family
DX: S32.020A Wedge compression fracture of second lumbar vertebra, initial encounter for closed fracture (principal); L29.9 Pruritus, unspecified; R53.83 Other fatigue; I10 Essential (primary) hypertension; E78.5 Hyperlipidemia, unspecified; R74.8 Abnormal levels of other serum enzymes
CPT/HCPCS: 80053; 80061; 83735; 84075; 84080; 84443; 85025

== ENCOUNTER 2023-12-23 09:08 | Outpatient (CLI) | payer MEDICARE, OTHER, SELFPAY ==
--- NOTE | 2023-12-23 09:08 | XR_ITS ---
FINAL REPORT TECHNIQUE: Bone densitometry calculations of the lumbar spine and left hip were obtained. CLINICAL HISTORY: osteoporosis FINDINGS: Using left forearm, the bone mineral density of the mid is -2 0.494 g/cm2, corresponding to T-score of -2.1. Using the left hip, the bone mineral density of the femoral neck is 0.689 g/cm2, corresponding to a T-score of -2.1. NOTE: T-score: Standard deviation compared with peak bone mass of young adult mean. *Following the recommendations of the International Society of Bone densitometry, classification of hip BMD is based on the lower of two T-scores; total hip or femoral neck. IMPRESSION: Diminished bone mineral density of the left forearm and left hip consistent with osteopenia. Reviewed, Interpreted and Dictated by Delbert Boo MD Transcribed by Anais Fierro Authenticated and [facility]
== END 2023-12-23 23:59 | disposition home or self-care (01) ==
LOC: RAD 09:08
PROVIDERS: PCP Nurse Practitioner Family; Visit Provider Nurse Practitioner Family
DX: M81.0 Age-related osteoporosis without current pathological fracture (principal)
CPT/HCPCS: 77080

== ENCOUNTER 2024-01-23 11:33 | Outpatient (CLI) | payer MEDICARE, OTHER, SELFPAY ==
[2024-01-23 11:50] VITALS: BP 133/74; PULSE 69; RESP 18; O2SAT 97
[2024-01-23] MEDS: DENOSUMAB 60 MG/ML SYRINGE SUBCUT (11:50)
== END 2024-01-23 12:05 | disposition home or self-care (01) ==
LOC: INF 11:35
PROVIDERS: PCP Nurse Practitioner Family; Visit Provider Nurse Practitioner Family
DX: M81.0 Age-related osteoporosis without current pathological fracture (principal)
CPT/HCPCS: 96372; J0897

== ENCOUNTER 2024-03-23 14:00 | Observation (INO) | payer MEDICARE, OTHER, SELFPAY ==
[2024-03-23] VITALS (12 sets, daily range): BP systolic 127–150; BP diastolic 63–84; PULSE 68–79; RESP 17–31; TEMP 36.6–36.9; O2SAT 90–100; BMI 37.1; BMI 37.0
--- NOTE | 2024-03-23 14:06 | ECG_ITS ---
APPROVED REPORT Exam: Resting ECG HR:68 bpm ECG Measurements Heart Rate 68 AXES KS 143 P 90 QRSd 88 QRS 77 QT 390 T 74 QTc 407 Conclusion SINUS RHYTHM NORMAL ECG UNCONFIRMED REPORT Electronically signed by : CHANEL CASTELLANOS, 03/23/2024 23:03:44
--- NOTE | 2024-03-23 14:07 | HMH.EDGENADL ---
Discharge Plan Disposition Patient Disposition: Admitted Condition: Fair Clinical Impressions Clinical Impression: Acute and chronic respiratory failure with hypercapnia Discharge ED Provider: Gurjit Ryan General Adult HPI <CALOS Armas - Last Filed: 03/23/24 17:50> General Chief complaint: Shortness of Breath/Dyspnea Stated complaint: SOA/CP SENT BY [facility] Time Seen by Provider: 03/23/24 14:07 History of Present Illness HPI narrative: Patient presents for evaluation of shortness of breath. Patient gives a history of a week of increasing shortness of breath. She denies any fever chills hemoptysis hematochezia melena nausea vomiting diarrhea. She has COPD specifically fibrosis of the lung and is O2 dependent on 2 L by nasal cannula. Additionally she reports bilateral lower extremity swelling that has been worse over the last week as well. She cannot tell me if or how much weight she has potentially gained. She also has a past medical history of cardiomegaly with a last echo in showing an EF of 55%, peripheral artery disease, hyperlipidemia hypertension is on Eliquis. Related Data Home Medications ?Medication ?Instructions ?Recorded ?Confirmed pramipexole 1.5 mg tablet 1.5 mg PO BID 03/08/21 03/24/24 albuterol sulfate 2.5 mg/3 mL 2.5 mg inhalation Q6HP PRN 11/19/22 03/24/24 (0.083 %) solution for nebulization Shortness Of Breath dexlansoprazole 60 mg 60 mg PO DAILY 11/20/22 03/24/24 capsule,biphase delayed release (Dexilant) ascorbic acid 125 mg-collagen, 1 cap PO DAILY 05/16/23 03/24/24 hydrolyzed 740 mg capsule (Collagen Plus Vitamin C) coenzyme Q10 100 mg capsule 300 mg PO DAILY 05/16/23 03/24/24 (CoQ-10) hydrocortisone 2.5 % topical cream 1 applic topical DIRECTED PRN 01/08/24 03/24/24 Itching triamcinolone acetonide 0.1 % 1 applic topical DIRECTED PRN 01/08/24 03/24/24 topical cream Itching albuterol sulfate 90 mcg/actuation 2 puff inhalation Q4HP PRN 01/23/24 03/24/24 aerosol inhaler Shortness Of Breath bisoprolol fumarate 5 mg tablet 5 mg PO DAILY 01/23/24 03/24/24 pregabalin 25 mg capsule 25 mg PO TID 02/11/24 03/24/24 potassium chloride 10 mEq 30 meq PO DAILY 03/23/24 03/24/24 capsule,extended release levocetirizine 5 mg tablet 5 mg PO HS 03/24/24 03/24/24 montelukast 10 mg tablet 10 mg PO PM 03/24/24 03/24/24 rivaroxaban 15 mg tablet (Xarelto) 15 mg PO QPMWITHMEAL 03/24/24 03/24/24 Previous Rx's ?Medication ?Instructions ?Recorded dicyclomine 10 mg capsule 10 mg PO QID 90 days #360 caps 03/27/23 tizanidine 4 mg tablet (Zanaflex) 4 mg PO QID 90 days #360 tabs 06/26/23 venlafaxine 150 mg 300 mg (2 x 150 mg) PO DAILY 90 09/11/23 capsule,extended release 24 hr days #180 caps (Effexor XR) spironolactone 25 mg tablet 25 mg PO DAILY #90 tabs 09/23/23 budesonide 0.5 mg/2 mL suspension 0.5 mg (2 mL) inhalation BID 90 11/21/23 for nebulization (Pulmicort) days #360 mL denosumab 60 mg/mL subcutaneous 60 mg SQ [id number] #1 mL 01/10/24 syringe (Prolia) bumetanide 1 mg tablet 1 mg PO DAILY 30 days #30 tabs 03/24/24 Allergies Allergy/AdvReac Type Severity Reaction Status Date / Time celecoxib (From Celebrex) Allergy Severe RECTAL Verified 02/28/24 14:37 BLEEDING leflunomide Allergy Severe Q-ZKEHIV-SHOR/THROAT,TINGLING Verified 02/28/24 14:37 OF HANDS, SORE THROAT nortriptyline Allergy Severe Weakness Verified 02/28/24 14:37 cefdinir Allergy Intermediate I-ITCHING Verified 02/28/24 14:37 ciprofloxacin Allergy Intermediate I-HIVES, Verified 02/28/24 14:37 ITCHING gabapentin Allergy Intermediate BODY Verified 02/28/24 14:37 SWELLING nitrofurantoin (From Allergy Intermediate I-HIVES, Verified 02/28/24 14:37 Macrobid) ITCHING budesonide (From Breztri Allergy Mild Swelling Verified 02/28/24 14:37 Aerosphere) of Lip/Tongue/Throat formoterol (From Breztri Allergy Mild Swelling Verified 02/28/24 14:37 Aerosphere) of Lip/Tongue/Throat glycopyrrolate (From Breztri Allergy Mild Swelling Verified 02/28/24 14:37 Aerosphere) of Lip/Tongue/Throat naproxen (From NAPROSYN) Allergy Unknown THROAT Verified 02/28/24 14:37 SWELLS Penicillins Allergy Verified 02/28/24 14:37 tramadol Allergy Other Verified 02/28/24 14:37 levofloxacin (From Levaquin) AdvReac Intermediate HYPER , Verified 02/28/24 14:37 SHAKES dexamethasone AdvReac Mild SHAKES Verified 02/28/24 14:37 pregabalin (From Lyrica) AdvReac Verified 03/23/24 13:01 vancomycin AdvReac hearing Verified 02/28/24 14:37 loss PFSH <CALOS Armas - Last Filed: 03/23/24 17:50> [facility] Disclaimer: The information contained in this section may have been updated after the patient was seen, as this information can be updated by other users. Medical History Anxiety Degenerative disc disease Depression Fibromyalgia Fibrosis of lung History of 2019 novel coronavirus disease (COVID-19) History of transient ischemic attack (TIA) HLD (hyperlipidemia) HTN (hypertension) ILD (interstitial lung disease) Irritable bowel syndrome (IBS) Pulmonary emphysema Restless leg syndrome Sleep apnea Smoking greater than 30 pack years Spinal stenosis Tobacco abuse Surgical History History of cataract surgery History of partial hysterectomy History of removal of both ovaries History of tonsillectomy Hx of cholecystectomy Previous back surgery Family History Father Hypertension Coronary artery disease Mother Pancreatic cancer Social History (Updated 03/23/24 @ 18:22 by Kaykay Avila RN) Smoking Status: Former smoker tobacco type: cigarettes packs per day: 2 years smoked: 45 smoking status stop date: 05/10/2023 second hand exposure: Yes alcohol intake: former substance use type: denies use current occupational status: retired Travel in the last 8 weeks: None household members: none housing: house current occupational exposures/hazards: No caffeine: Yes Other Medical History Have you received the Flu Vaccine for this season: No Have you received the Pneumonia Vaccine: No <CALOS Armas - Last Filed: 03/23/24 17:50> ROS Obtained: Yes Systems reviewed as appropriate & no additional complaints except as documented Physical Exam <CALOS Armas - Last Filed: 03/23/24 17:50> General General appearance: alert and in no apparent distress Eye Eye exam: Present normal appearance and PERRL Neck Neck exam: Absent trachea midline Respiratory Respiratory exam: Present respiratory distress (Increased work of breathing but no accessory muscle use), wheezes and prolonged expiratory phase; Absent normal lung sounds bilaterally (Diminished air entry throughout with late end expiratory wheezes and diminished breath sounds at the bases) or accessory muscle use Cardiovascular Cardiovascular exam: Present regular rate Extremities Exam Extremities exam: Present edema (3+ pitting edema in the bilateral lower extremities to the level of the thigh) Neurological Exam Neurological exam: Present alert and oriented X3 Medical Decision Making <CALOS Armas - Last Filed: 03/23/24 17:50> Medical Records Medical records reviewed: Yes I reviewed the patient's medical records. Screening: Per USPSTF and CDC recommendations, given the prevalence of disease in our region, it is our hospital?s policy to screen for HIV and viral Hepatitis for all patients aged 18 and over and those with ongoing risk factors. Rashaad Inquiry Pt receiving controlled substance: No Vital Signs: 03/23/24 14:00 03/23/24 14:08 03/23/24 14:30 Temperature 98.5 F Temperature Source Oral Pulse Rate 70 70 Pulse Rate [Left Radial] 68 Respiratory Rate 20 17 26 H Blood Pressure 131/81 128/76 Blood Pressure [Right Arm] 131/81 Blood Pressure Mean [Right Arm] 97 Blood Pressure Source Blood Pressure Source [Right Arm] Blood Pressure Position [Right Arm] 02 Sat by Pulse Oximetry 90 L 99 99 Oxygen Delivery Method Nasal Cannula Nasal Cannula Nasal Cannula Oxygen Flow Rate (LPM) 2 Fraction of Inspired Oxygen 03/23/24 15:01 03/23/24 15:23 03/23/24 15:30 Temperature Temperature Source Pulse Rate 71 72 Pulse Rate [Left Radial] Respiratory Rate 20 19 Blood Pressure 131/63 131/80 Blood Pressure [Right Arm] Blood Pressure Mean [Right Arm] Blood Pressure Source Blood Pressure Source [Right Arm] Blood Pressure Position [Right Arm] 02 Sat by Pulse Oximetry 99 95 Oxygen Delivery Method Nasal Cannula BiPAP Oxygen Flow Rate (LPM) Fraction of Inspired Oxygen 30 03/23/24 16:56 03/23/24 17:00 03/23/24 17:30 Temperature 98.0 F Temperature Source Axillary Pulse Rate 73 69 78 Pulse Rate [Left Radial] Respiratory Rate 20 25 H 22 Blood Pressure 150/84 H 132/79 127/71 Blood Pressure [Right Arm] Blood Pressure Mean [Right Arm] Blood Pressure Source Automatic Cuff Blood Pressure Source [Right Arm] Blood Pressure Position [Right Arm] 02 Sat by Pulse Oximetry 97 100 Oxygen Delivery Method BiPAP BiPAP Nasal Cannula Oxygen Flow Rate (LPM) 2 Fraction of Inspired Oxygen 03/23/24 17:31 03/23/24 18:00 Temperature Temperature Source Pulse Rate Pulse Rate [Left Radial] 70 Respiratory Rate 24 Blood Pressure Blood Pressure [Right Arm] 132/79 Blood Pressure Mean [Right Arm] 96 Blood Pressure Source Blood Pressure Source [Right Arm] Automatic Cuff Blood Pressure Position [Right Arm] Supine 02 Sat by Pulse Oximetry 100 Oxygen Delivery Method Nasal Cannula BiPAP Oxygen Flow Rate (LPM) 2 Fraction of Inspired Oxygen Lab Data Lab results reviewed: Yes I reviewed the patient's lab results. Lab Results 03/23/24 14:05: WBC 7.4, RBC 4.45, Hgb 10.2 L, Hct 36.8 L, MCV 82.7, MCH 22.9 L, MCHC 27.7 L, RDW 18.0 H, Plt Count 268, MPV 10.6 H, Neut % (Auto) 66.6, Lymph % (Auto) 22.9, Wolfe % (Auto) 7.0, Eos % (Auto) 2.0, Baso % (Auto) 0.8, Neut # (Auto) 4.9, Lymph # (Auto) 1.7, Wolfe # (Auto) 0.5, Eos # (Auto) 0.2, Baso # (Auto) 0.1, Sodium 136, Potassium 4.6, Chloride 97 L, Carbon Dioxide 38 H, Anion Gap 5.6, BUN 32 H, Creatinine 0.80, Estimated Creat Clear 74, Estimated GFR 72, Est GFR ( Amer) 87, Glucose 92, Calcium 8.3 L, Magnesium 1.8, Total Bilirubin 0.3, AST 36, ALT 18, Alkaline Phosphatase 141 H, Troponin I < 0.01, NT-Pro-B Natriuret Pep 149 H, Total Protein 6.8, Albumin 4.1, Globulin 2.7, Albumin/Globulin Ratio 1.5 03/23/24 14:24: VBG pH 7.30 L, VBG pCO2 67.4 H, VBG pO2 48.0 H, VBG HCO3 32.6 H, VBG Total CO2 34.6 H, VBG O2 Saturation 81.3 H, VBG Base Excess 6.2 H, VBG Lactic Acid 1.1 03/23/24 15:25: SARS-CoV-2 (PCR) Not detected, Influenza Type A (PCR) Not detected, Influenza Type B (PCR) Not detected, RSV (PCR) Not detected, Rhinovirus (PCR) Not detected 03/23/24 17:36: Troponin I < 0.01 03/24/24 06:20 03/24/24 06:20 Orders (Tests/Meds): ED MEDICATIONS Discontinued Medications Generic Name Dose Route Start Last Admin Trade Name Freq PRN Reason Stop Dose Admin Acetaminophen 650 mg 03/23/24 21:25 03/24/24 09:56 Acetaminophen 325mg Tab PO 04/22/24 21:24 650 mg Q4HP PRN Administration Fever or Mild Pain (1-3) Albuterol Sulfate 2.5 mg 03/23/24 22:00 03/24/24 09:44 Albuterol 0.083% 2.5 Mg/3 Ml [facility] 04/22/24 21:59 2.5 mg Q4RT MARIO Administration Albuterol/Ipratropium 3 ml 03/23/24 22:00 Ipratropium/Albuterol 3 Ml [facility] 04/22/24 21:59 Q4RT MARIO Bumetanide 1 mg 03/24/24 09:00 03/24/24 08:25 Bumetanide 1mg/4ml Vial IV 04/23/24 08:59 1 mg BIDL MARIO Administration Furosemide 80 mg 03/23/24 14:49 03/23/24 14:58 Furosemide 40mg/4ml Vial IV 03/23/24 14:50 80 mg ONCE ONE Administration Magnesium Sulfate 2 gm in 50 mls @ 50 mls/hr 03/23/24 14:50 03/23/24 14:55 Magnesium Sulfate 2gm/50ml Premix IV 03/23/24 15:49 50 mls/hr ONCE ONE Administration Magnesium Sulfate 2 gm in 50 mls @ 50 mls/hr 03/24/24 01:25 03/24/24 01:41 Magnesium Sulfate 2gm/50ml Premix IV 03/24/24 02:24 50 mls/hr ONCE ONE Administration Methylprednisolone Sodium Succinate 80 mg 03/23/24 16:00 03/23/24 16:31 Methylprednisolone Sod Succ 125mg Vial IV 03/23/24 16:01 80 mg ONCE ONE Administration Ondansetron HCl 4 mg 03/23/24 21:25 Ondansetron 4mg/2ml Vial IV 04/22/24 21:24 Q8HP PRN Nausea Prednisone 40 mg 03/24/24 09:00 03/24/24 08:25 Prednisone 20mg Tab PO 04/23/24 08:59 40 mg DAILY MARIO Administration Tizanidine HCl 4 mg 03/23/24 20:02 03/23/24 20:20 Tizanidine 4mg Tablet PO 04/22/24 20:01 4 mg NEEDED PRN Administration Breakthru Moderate Pain (4-6) Tizanidine HCl 4 mg 03/24/24 01:26 03/24/24 07:19 Tizanidine 4mg Tablet PO 04/23/24 01:22 4 mg Q6HP PRN Administration Breakthru Moderate Pain (4-6) ORDERS Category Date Time Status Chest XR -- portable [XR chest portable] Stat Exams 03/23/24 14:48 Completed Complete Blood Count Auto Diff AMLAB Lab 03/24/24 06:20 Completed Complete Blood Count Auto Diff Stat Lab 03/23/24 14:05 Completed Comprehensive Metabolic Panel AMLAB Lab 03/24/24 06:20 Completed Comprehensive Metabolic Panel Stat Lab 03/23/24 14:05 Completed Magnesium AMLAB Lab 03/24/24 06:20 Completed Magnesium Stat Lab 03/23/24 14:05 Completed Mini Respiratory Panel Stat Lab 03/23/24 15:25 Completed NT Pro Brain Natriuretic Pep. Stat Lab 03/23/24 14:05 Completed Troponin I Q3H Lab 03/23/24 17:36 Completed Troponin I Q3H Lab 03/23/24 20:15 Completed Troponin I Stat Lab 03/23/24 14:05 Completed Venous Blood Gas Stat RT 03/23/24 14:24 Completed CA echo doppler complete Stat Y 03/23/24 15:56 Completed HEART Score History (anamnesis): Slightly suspicious ECG: Non-specific disturbance Age: >65 years Risk factors: Atherosclerosis history Troponin: </= normal limit HEART Score: 5 Medical Decision Narrative: In summary patient is a 83-year-old female who presents to the emergency department for evaluation of dyspnea. Patient is hemodynamically stable with a blood pressure 131/81 pulse 68 respiratory rate is 20 satting at 90% on 2 L by nasal cannula upon arrival, afebrile at 98.5. Physical exam is remarkable for increased work of breathing but no muscle use, diminished air entry in all 4 larios but significantly so at the bases with late end expiratory wheezes, normal sinus rhythm on the bedside monitor satting at 90% on 2 L by nasal cannula which is her baseline, 3+ pitting edema to the level of the thighs and her bilateral lower extremities.. Differential diagnosis includes COPD exacerbation versus CHF exacerbation versus viral or bacterial infection etc. Initial workup will be conducted with hematologic labs VBG plain film chest x-ray respiratory swabs. Initial interventions include DuoNeb Solu-Medrol. Initial workup reviewed by me shows a venous blood gas with a pH of 7.30 pCO2 of 67.4 pCO2 of 48 VBG lactic acid of 1.1 normal white count stable H&H with no left shift, CMP is significant for a chloride of 97 CO2 of 38 gap of 5.6 with a BUN of 32 creatinine 0.8 calcium of 8.3 alk phos of 141 and undetectable initial troponin of less than 0.01, and NT proBNP of 149 and the remainder of her hematologic labs are nonactionable. My informal interpretation of her plain film chest x-ray does not show acute infiltrates but does show some cephalization and questionable bibasilar fluffiness prior to radiology read.. Upon repeat evaluation I placed the patient on BiPAP giving her hypoxemia and hypercarbia. I have ordered an echocardiogram. Given this had interactive discussion with hospital medicine regarding patient management and she will be admitted for further evaluation and care. <Gurjit Ryan MD - Last Filed: 03/25/24 07:39> Vital Signs: 03/23/24 14:00 03/23/24 14:08 03/23/24 14:30 Temperature 98.5 F Temperature Source Oral Pulse Rate 70 70 Pulse Rate [Left Radial] 68 Respiratory Rate 20 17 26 H Blood Pressure 131/81 128/76 Blood Pressure [Right Arm] 131/81 Blood Pressure Mean [Right Arm] 97 Blood Pressure Source Blood Pressure Source [Right Arm] Blood Pressure Position [Right Arm] 02 Sat by Pulse Oximetry 90 L 99 99 Oxygen Delivery Method Nasal Cannula Nasal Cannula Nasal Cannula Oxygen Flow Rate (LPM) 2 Fraction of Inspired Oxygen 03/23/24 15:01 03/23/24 15:23 03/23/24 15:30 Temperature Temperature Source Pulse Rate 71 72 Pulse Rate [Left Radial] Respiratory Rate 20 19 Blood Pressure 131/63 131/80 Blood Pressure [Right Arm] Blood Pressure Mean [Right Arm] Blood Pressure Source Blood Pressure Source [Right Arm] Blood Pressure Position [Right Arm] 02 Sat by Pulse Oximetry 99 95 Oxygen Delivery Method Nasal Cannula BiPAP Oxygen Flow Rate (LPM) Fraction of Inspired Oxygen 30 03/23/24 16:56 03/23/24 17:00 03/23/24 17:30 Temperature 98.0 F Temperature Source Axillary Pulse Rate 73 69 78 Pulse Rate [Left Radial] Respiratory Rate 20 25 H 22 Blood Pressure 150/84 H 132/79 127/71 Blood Pressure [Right Arm] Blood Pressure Mean [Right Arm] Blood Pressure Source Automatic Cuff Blood Pressure Source [Right Arm] Blood Pressure Position [Right Arm] 02 Sat by Pulse Oximetry 97 100 Oxygen Delivery Method BiPAP BiPAP Nasal Cannula Oxygen Flow Rate (LPM) 2 Fraction of Inspired Oxygen 03/23/24 17:31 03/23/24 18:00 Temperature Temperature Source Pulse Rate Pulse Rate [Left Radial] 70 Respiratory Rate 24 Blood Pressure Blood Pressure [Right Arm] 132/79 Blood Pressure Mean [Right Arm] 96 Blood Pressure Source Blood Pressure Source [Right Arm] Automatic Cuff Blood Pressure Position [Right Arm] Supine 02 Sat by Pulse Oximetry 100 Oxygen Delivery Method Nasal Cannula BiPAP Oxygen Flow Rate (LPM) 2 Fraction of Inspired Oxygen Lab Data Lab Results 03/23/24 14:05: WBC 7.4, RBC 4.45, Hgb 10.2 L, Hct 36.8 L, MCV 82.7, MCH 22.9 L, MCHC 27.7 L, RDW 18.0 H, Plt Count 268, MPV 10.6 H, Neut % (Auto) 66.6, Lymph % (Auto) 22.9, Wolfe % (Auto) 7.0, Eos % (Auto) 2.0, Baso % (Auto) 0.8, Neut # (Auto) 4.9, Lymph # (Auto) 1.7, Wolfe # (Auto) 0.5, Eos # (Auto) 0.2, Baso # (Auto) 0.1, Sodium 136, Potassium 4.6, Chloride 97 L, Carbon Dioxide 38 H, Anion Gap 5.6, BUN 32 H, Creatinine 0.80, Estimated Creat Clear 74, Estimated GFR 72, Est GFR ( Amer) 87, Glucose 92, Calcium 8.3 L, Magnesium 1.8, Total Bilirubin 0.3, AST 36, ALT 18, Alkaline Phosphatase 141 H, Troponin I < 0.01, NT-Pro-B Natriuret Pep 149 H, Total Protein 6.8, Albumin 4.1, Globulin 2.7, Albumin/Globulin Ratio 1.5 03/23/24 14:24: VBG pH 7.30 L, VBG pCO2 67.4 H, VBG pO2 48.0 H, VBG HCO3 32.6 H, VBG Total CO2 34.6 H, VBG O2 Saturation 81.3 H, VBG Base Excess 6.2 H, VBG Lactic Acid 1.1 03/23/24 15:25: SARS-CoV-2 (PCR) Not detected, Influenza Type A (PCR) Not detected, Influenza Type B (PCR) Not detected, RSV (PCR) Not detected, Rhinovirus (PCR) Not detected 03/23/24 17:36: Troponin I < 0.01 Orders (Tests/Meds): ED MEDICATIONS Discontinued Medications Generic Name Dose Route Start Last Admin Trade Name Freq PRN Reason Stop Dose Admin Acetaminophen 650 mg 03/23/24 21:25 03/24/24 09:56 Acetaminophen 325mg Tab PO 04/22/24 21:24 650 mg Q4HP PRN Administration Fever or Mild Pain (1-3) Albuterol Sulfate 2.5 mg 03/23/24 22:00 03/24/24 09:44 Albuterol 0.083% 2.5 Mg/3 Ml [facility] 04/22/24 21:59 2.5 mg Q4RT MARIO Administration Albuterol/Ipratropium 3 ml 03/23/24 22:00 Ipratropium/Albuterol 3 Ml [facility] 04/22/24 21:59 Q4RT MARIO Bumetanide 1 mg 03/24/24 09:00 03/24/24 08:25 Bumetanide 1mg/4ml Vial IV 04/23/24 08:59 1 mg BIDL MARIO Administration Furosemide 80 mg 03/23/24 14:49 03/23/24 14:58 Furosemide 40mg/4ml Vial IV 03/23/24 14:50 80 mg ONCE ONE Administration Magnesium Sulfate 2 gm in 50 mls @ 50 mls/hr 03/23/24 14:50 03/23/24 14:55 Magnesium Sulfate 2gm/50ml Premix IV 03/23/24 15:49 50 mls/hr ONCE ONE Administration Magnesium Sulfate 2 gm in 50 mls @ 50 mls/hr 03/24/24 01:25 03/24/24 01:41 Magnesium Sulfate 2gm/50ml Premix IV 03/24/24 02:24 50 mls/hr ONCE ONE Administration Methylprednisolone Sodium Succinate 80 mg 03/23/24 16:00 03/23/24 16:31 Methylprednisolone Sod Succ 125mg Vial IV 03/23/24 16:01 80 mg ONCE ONE Administration Ondansetron HCl 4 mg 03/23/24 21:25 Ondansetron 4mg/2ml Vial IV 04/22/24 21:24 Q8HP PRN Nausea Prednisone 40 mg 03/24/24 09:00 03/24/24 08:25 Prednisone 20mg Tab PO 04/23/24 08:59 40 mg DAILY MARIO Administration Tizanidine HCl 4 mg 03/23/24 20:02 03/23/24 20:20 Tizanidine 4mg Tablet PO 04/22/24 20:01 4 mg NEEDED PRN Administration Breakthru Moderate Pain (4-6) Tizanidine HCl 4 mg 03/24/24 01:26 03/24/24 07:19 Tizanidine 4mg Tablet PO 04/23/24 01:22 4 mg Q6HP PRN Administration Breakthru Moderate Pain (4-6) ORDERS Category Date Time Status Chest XR -- portable [XR chest portable] Stat Exams 03/23/24 14:48 Completed Complete Blood Count Auto Diff AMLAB Lab 03/24/24 06:20 Completed Complete Blood Count Auto Diff Stat Lab 03/23/24 14:05 Completed Comprehensive Metabolic Panel AMLAB Lab 03/24/24 06:20 Completed Comprehensive Metabolic Panel Stat Lab 03/23/24 14:05 Completed Magnesium AMLAB Lab 03/24/24 06:20 Completed Magnesium Stat Lab 03/23/24 14:05 Completed Mini Respiratory Panel Stat Lab 03/23/24 15:25 Completed NT Pro Brain Natriuretic Pep. Stat Lab 03/23/24 14:05 Completed Troponin I Q3H Lab 03/23/24 17:36 Completed Troponin I Q3H Lab 03/23/24 20:15 Completed Troponin I Stat Lab 03/23/24 14:05 Completed Venous Blood Gas Stat RT 03/23/24 14:24 Completed CA echo doppler complete Stat Y 03/23/24 15:56 Completed ECG Data Tracing #1: I reviewed this ECG and interpreted as documented below: (Sinus rhythm [address] or T wave changes concern for acute ischemia NC 143, QRS 88, QTc 407. Normal axis) HEART Score HEART Score: 5 Medical Decision Narrative: In summary patient is a 83-year-old female who presents to the emergency department for evaluation of dyspnea. Patient is hemodynamically stable with a blood pressure 131/81 pulse 68 respiratory rate is 20 satting at 90% on 2 L by nasal cannula upon arrival, afebrile at 98.5. Physical exam is remarkable for increased work of breathing but no muscle use, diminished air entry in all 4 larios but significantly so at the bases with late end expiratory wheezes, normal sinus rhythm on the bedside monitor satting at 90% on 2 L by nasal cannula which is her baseline, 3+ pitting edema to the level of the thighs and her bilateral lower extremities.. Differential diagnosis includes COPD exacerbation versus CHF exacerbation versus viral or bacterial infection etc. Initial workup will be conducted with hematologic labs VBG plain film chest x-ray respiratory swabs. Initial interventions include DuoNeb Solu-Medrol. Initial workup reviewed by me shows a venous blood gas with a pH of 7.30 pCO2 of 67.4 pCO2 of 48 VBG lactic acid of 1.1 normal white count stable H&H with no left shift, CMP is significant for a chloride of 97 CO2 of 38 gap of 5.6 with a BUN of 32 creatinine 0.8 calcium of 8.3 alk phos of 141 and undetectable initial troponin of less than 0.01, and NT proBNP of 149 and the remainder of her hematologic labs are nonactionable. My informal interpretation of her plain film chest x-ray does not show acute infiltrates but does show some cephalization and questionable bibasilar fluffiness prior to radiology read.. Upon repeat evaluation I placed the patient on BiPAP giving her hypoxemia and hypercarbia. I have ordered an echocardiogram. Given this had interactive discussion with hospital medicine regarding patient management and she will be admitted for further evaluation and care. I was consulted by the VICTORIA, and we discussed the complexity of the problems being addressed. I approved the treatment and management plan for this patient's care in the Emergency Department, thus performing a substantive portion of the medical decision making. Gurjit Ryan MD Critical Care <CALOS Armas - Last Filed: 03/23/24 17:50> Critical Care Time Critical Care Time: Yes Attestation: On 03/23/24, the high probability of a clinically significant, sudden or life threatening deterioration of the following system: Cardiopulmonary; required my full and direct attention, intervention and personal management. The time I documented below is in addition to time spent performing reported procedures but includes the following listed in this critical care notation. Total Time Total Critical Care Time: 30 <Gurjit Ryan MD - Last Filed: 03/25/24 07:39> Critical Care Time Critical Care Time: Yes (respiratory) Total Time Total Critical Care Time: 35
--- NOTE | 2024-03-23 14:23 | PC.NURSE ---
SPOKE WITH JASON FROM [facility] ABOUT VBG ORDER
[2024-03-23 14:30] LABS: Basophils # 0.1 K/mm3 (0-0.2); Basophils % 0.8 % (0.1-2.0); Eosinophils # 0.2 K/mm3 (0.0-0.4); Hematocrit 36.8 % (37.0-47.0); Hemoglobin 10.2 g/dL (12.2-16.2); Lymphocytes # 1.7 K/mm3 (0.7-4.5); Lymphocytes % 22.9 % (10-50); Mean Corpuscular HGB Conc 27.7 g/dL (31.8-35.4); Mean Corpuscular Hemoglobin 22.9 pg (27.0-31.2); Mean Corpuscular Volume 82.7 fl (81-99); Mean Platelet Volume 10.6 fl (7.4-10.4); Monocytes # 0.5 K/mm3 (0.1-1.0); Neutrophils # 4.9 K/mm3 (1.8-7.8); Neutrophils % 66.6 % (37.0-80.0); Platelet Count 268 K/mm3 (142-424); Red Blood Count 4.45 M/mm3 (4.20-5.40); White Blood Count 7.4 K/mm3 (4.8-10.8)
[2024-03-23 14:30] LABS: Lactate Venous 1.1 mmol/L (0.4-2.0); VBG Base Excess 6.2 mmol/L (-2.4-2.3); VBG HCO3 32.6 mmol/L (23-30); VBG Oxygen Saturation 81.3 % (50-70); VBG Total CO2 34.6 mmol/L (23-27)
[2024-03-23 14:34] LABS: VBG PCO2 67.4 mmol/L (35-51)
[2024-03-23 14:34] LABS: Albumin Level 4.1 g/dl (3.5-5.0); Chloride 97 mmol/L (98-107); Potassium 4.6 mmoL/L (3.5-5.1); Sodium 136 mmol/L (136-145)
[2024-03-23 14:37] LABS: Alanine Aminotransferase 18 U/L (12-78); Albumin/Globulin Ratio 1.5 (1.1-1.8); Alkaline Phosphatase 141 U/L (38-126); Anion Gap 5.6 mEq/L (5-15); Aspartate Amino Transferase 36 U/L (14-36); Bilirubin,Total 0.3 mg/dl (0.2-1.3); Blood Urea Nitrogen 32 mg/dl (7-17); Calcium 8.3 mg/dl (8.4-10.2); Carbon Dioxide 38 mmol/L (22.0-30.0); Creatinine Clearance Estimated 74 mL/min (50-200); Estimated Glomerular Filt Rate 72 ml/min (>60); GFR (African American) 87 ML/MIN (>60); Globulin 2.7 g/dL (1.3-3.2); Glucose 92 mg/dl (74-100); Total Protein,Serum 6.8 g/dl (6.3-8.2)
[2024-03-23 14:47] LABS: NT Pro Brain Natriuretic Pep. 149 pg/mL (0-125)
--- NOTE | 2024-03-23 14:48 | XR_ITS ---
FINAL REPORT CLINICAL HISTORY: Shortness of breath COMPARISON: 05/27/2023 FINDINGS: No acute pulmonary opacity is present. There is no evidence of effusion or pneumothorax. Mediastinum is unremarkable. Heart size is normal. IMPRESSION: No acute abnormality. Reviewed, Interpreted and Dictated by Pushpa Villanueva MD Transcribed by Kailey Castro Authenticated and [facility]
[2024-03-23 14:53] LABS: Troponin I < 0.01 ng/ml (0.00-0.034)
[2024-03-23] MEDS: MAGNESIUM SULFATE IN WATER 2 GM/50 ML PIGGYBACK IV (14:55)
[2024-03-23] MEDS: FUROSEMIDE 40MG/4ML VIAL 80 MG IV (14:58)
[2024-03-23 15:08] LABS: Magnesium 1.8 mg/dl (1.6-2.3)
--- NOTE | 2024-03-23 15:18 | HMH.ITSTN ---
medical record technician in with patient. Rad will be back to do p.cxr.
--- NOTE | 2024-03-23 15:19 | PC.NURSE ---
rt at bedside for placement of bipap
[2024-03-23 15:30] LABS: Coronavirus 19, PCR Not Detected (NotDetected); Human Rhinovirus Not Detected (NotDetected); Influenza A, PCR Not Detected (NotDetected); Influenza B, PCR Not Detected (NotDetected); Respiratory Syncytial Virus Not Detected (NotDetected)
--- NOTE | 2024-03-23 15:56 | CA_ITS ---
APPROVED REPORT EXAM: Comprehensive 2D, Doppler, and color-flow Echocardiogram Parent Educator: Kareen Snider RVT Ht: 4 ft 11 in Wt: 184lbs BSA: 1.78 BP: 124/79 mmHg Indications: SOA,HTN,HLD,EX SMOKER,FIBROSIS LUNG,PT ON BIPAP 2D Dimensions IVSd 0.89 cm F: 0.6-1.0 LVEF (Visual) 59.40 % PWd 0.92 cm F: 0.6 - 1.0 LA Volume 24.50 mL LVDd 4.08 cm F: 3.9 - 5.3 LA Volume Index 13.76 mL/m2 (M/F) 16-34 LVDs 2.81 cm F: 2.2 - 3.5 M-Mode Dimensions LA Diam 3.86 cm (1.9-4.0) TAPSE 2.38 (<1.7) LV Diastology E Decel Time 223 (160-240 msec) E/A Ratio 0.9 Aortic Valve CHANDLER Index 1.58 cm2/m2 AoV Peak Parveen. 142.0 (50-130 cm/s) AI PHT 513.00 ms AO Peak GR. 8.00 mmHg AO Mean GR. 4.00 (<5 mmHg) AO VTI 23.8 (18-25 cm) CHANDLER (VTI) 2.87 (2.5-4.5 cm2) Mitral Valve MV E Max Parveen. 75.0 (40-130 cm/s) MV A Velocity 84.0 (40-130 cm/s) E/A Ratio 0.89 MV PHT 65.0 ms Pulmonary Valve PV Peak Velocity 76.0 (50-150 cm/s) Tricuspid Valve TR P. Velocity 194.00 cm/s RAP Estimate 10.00 mmHg RVSP 25.10 mmHg Left Ventricle The left ventricle is normal size. The left ventricular systolic function is normal. The left ventricular ejection fraction is within the normal range. There is increased LV wall thickness. There is normal LV segmental wall motion. Diastolic function is indeterminate. LVEF is 60%. Right Ventricle Right ventricle is moderately dilated. Right ventricle is mildly hypokinetic. Atria The left atrium size is normal. The right atrium is mildly dilated. There is no Doppler evidence of interatrial shunt. Aortic Valve The aortic valve is mildly thickened. There is no aortic valvular stenosis. Mild aortic regurgitation. Mitral Valve The mitral valve is normal in structure. No evidence of mitral valve stenosis. Trace mitral regurgitation. Tricuspid Valve Tricuspid valve is grossly normal in structure and function. Trace tricuspid regurgitation. There is insufficient TR jet to estimate RVSP. Pulmonic Valve The pulmonary valve is normal in structure. Trace pulmonic regurgitation. Great Vessels The aortic root is normal in size. The ascending aorta is not well-visualized. IVC is normal in size and collapses >50% with inspiration. Pericardium There is no pericardial effusion. Other Information Study Quality: Fair Conclusion Normal LV systolic function. Moderate RV dilation with mild reduction in RV function. Mild RA dilation. Mild AI. When directly compared to prior study from 01/16/2023, the RV dysfunction is new. Further evaluation for RV dysfunction is recommended. Electronically signed by : Yolie Brooks MD 03/24/2024 12:48:56
[2024-03-23] MEDS: METHYLPREDNISOLONE SOD SUCC 125MG VIAL 80 MG IV (16:31)
--- NOTE | 2024-03-23 17:30 | PC.NURSE ---
gave pt report to Kaykay Andrade RN on Med/Surg
--- NOTE | 2024-03-23 17:38 | PC.NURSE ---
Pt up to the bsc with minimal assistance
--- NOTE | 2024-03-23 18:04 | PC.NURSE ---
PT GONE TO [facility] AT THIS TIME
--- NOTE | 2024-03-23 18:05 | PC.NURSE ---
arrived by w/c from ED
[2024-03-23 18:19] LABS: Troponin I < 0.01 ng/ml (0.00-0.034)
[2024-03-23] MEDS: TIZANIDINE 4MG TABLET 4 MG PO (20:20)
[2024-03-23 20:40] LABS: VBG Base Excess 10.3 mmol/L (-2.4-2.3); VBG HCO3 36.2 mmol/L (23-30); VBG Oxygen Saturation 77.1 % (50-70); VBG PH 7.33 mmol/L (7.31-7.41); VBG PO2 42.6 mmol/L (28-40); VBG Total CO2 38.4 mmol/L (23-27)
[2024-03-23 20:48] LABS: VBG PCO2 70.3 mmol/L (35-51)
[2024-03-23 20:49] LABS: Lactate Venous 2.2 mmol/L (0.4-2.0)
[2024-03-23 20:55] LABS: Troponin I < 0.01 ng/ml (0.00-0.034)
[2024-03-23 20:56] LABS: Adenovirus,PCR Not Detected (NotDetected); Bordetella Pertussis Not Detected (NotDetected); Chlamydophila Pneumoniae, PCR Not Detected (NotDetected); Coronavirus 19, PCR Not Detected (NotDetected); Coronavirus 229E Not Detected (NotDetected); Coronavirus NL63 Not Detected (NotDetected); Coronavirus OC43 Not Detected (NotDetected); Coronovirus HKU1,PCR Not Detected (NotDetected); Human Metapneumovirus Not Detected (NotDetected); Influenza A, PCR Not Detected (NotDetected); Influenza AH1, 2009 Not Detected (NotDetected); Influenza AH1, PCR Not Detected (NotDetected); Influenza AH3,PCR Not Detected (NotDetected); Influenza B, PCR Not Detected (NotDetected); Mycoplasma Pneumoniae, PCR Not Detected (NotDetected); Parainfluenza 1, PCR Not Detected (NotDetected); Parainfluenza 2, PCR Not Detected (NotDetected); Parainfluenza 3, PCR Not Detected (NotDetected); Parainfluenza 4, PCR Not Detected (NotDetected); Respiratory Syncytial Virus Not Detected (NotDetected); Rhinovirus/Enterovirus Not Detected (NotDetected)
--- NOTE | 2024-03-23 21:53 | EXP.HP ---
History of Present Illness *Admission Date: 03/23/24 *Reason for visit:: Shortness of breath *History of present illness: This is a 63-year-old female with a past medical history of COPD on 2 L at baseline, chronic pain, pulmonary fibrosis, PAD, hypertension, hyperlipidemia who presents emergency department today with complaints of shortness of breath. She states worsening shortness of breath for approximately 1 week. Endorses increased lower extremity edema. States that 3 days ago her legs were so swollen she could not put her shoes on. States that she is having worsening dyspnea and orthopnea. Also reports increased wheezing. She denies any productive cough. Denies any vomiting or diarrhea or chills. Emergency Department workup notable for likely COPD exacerbation as well as element of volume overload. VBG shows mild hypercapnic respiratory failure with a pH of 7.3 and pCO2 of 67. BiPAP was applied at the the time of this result in the emergency department. Mildly elevated BNP of 149. Troponin negative. Chest x-ray without overt abnormality. Patient also reports feeling overtly tired recently. States that she will wake up from sleep overnight still tired throughout the day. Investigated this questionable to further and states that she had a CPAP machine at one point but it was recalled. States that she was unable to tolerate the CPAP mask due to skin breakdown. [facility] Disclaimer: The information contained in this section may have been updated after the patient was seen, as this information can be updated by other users. Medical History Anxiety Degenerative disc disease Depression Fibromyalgia Fibrosis of lung History of 2019 novel coronavirus disease (COVID-19) History of transient ischemic attack (TIA) HLD (hyperlipidemia) HTN (hypertension) ILD (interstitial lung disease) Irritable bowel syndrome (IBS) Pulmonary emphysema Restless leg syndrome Sleep apnea Smoking greater than 30 pack years Spinal stenosis Tobacco abuse Surgical History History of cataract surgery History of partial hysterectomy History of removal of both ovaries History of tonsillectomy Hx of cholecystectomy Previous back surgery Family History Father Hypertension Coronary artery disease Mother Pancreatic cancer Social History (Updated 03/23/24 @ 18:22 by Kaykay Avila RN) Smoking Status: Former smoker tobacco type: cigarettes packs per day: 2 years smoked: 45 smoking status stop date: 05/10/2023 second hand exposure: Yes alcohol intake: former substance use type: denies use current occupational status: retired Travel in the last 8 weeks: None household members: none housing: house current occupational exposures/hazards: No caffeine: Yes Other Medical History Have you received the Flu Vaccine for this season: Yes Have you received the Pneumonia Vaccine: Yes Review of Systems Review of Systems Review of systems:: pertinent systems reviewed and negative unless documented below Review of systems (narrative): Negative except for HPI Meds Home Medications and Allergies Home Medications ?Medication ?Instructions ?Recorded ?Confirmed ?Type pramipexole 1.5 mg tablet 1.5 mg PO BID 03/08/21 03/24/24 History albuterol sulfate 2.5 mg/3 mL 2.5 mg inhalation Q6HP PRN 11/19/22 03/24/24 History (0.083 %) solution for nebulization Shortness Of Breath dexlansoprazole 60 mg 60 mg PO DAILY 11/20/22 03/24/24 History capsule,biphase delayed release (Dexilant) dicyclomine 10 mg capsule 10 mg PO QID 90 days #360 caps 03/27/23 03/24/24 Rx ascorbic acid 125 mg-collagen, 1 cap PO DAILY 05/16/23 03/24/24 History hydrolyzed 740 mg capsule (Collagen Plus Vitamin C) coenzyme Q10 100 mg capsule 300 mg PO DAILY 05/16/23 03/24/24 History (CoQ-10) tizanidine 4 mg tablet (Zanaflex) 4 mg PO QID 90 days #360 tabs 06/26/23 03/24/24 Rx venlafaxine 150 mg 300 mg (2 x 150 mg) PO DAILY 90 09/11/23 03/24/24 Rx capsule,extended release 24 hr days #180 caps (Effexor XR) spironolactone 25 mg tablet 25 mg PO DAILY #90 tabs 09/23/23 03/24/24 Rx budesonide 0.5 mg/2 mL suspension 0.5 mg (2 mL) inhalation BID 90 11/21/23 03/24/24 Rx for nebulization (Pulmicort) days #360 mL hydrocortisone 2.5 % topical cream 1 applic topical DIRECTED PRN 01/08/24 03/24/24 History Itching triamcinolone acetonide 0.1 % 1 applic topical DIRECTED PRN 01/08/24 03/24/24 History topical cream Itching denosumab 60 mg/mL subcutaneous 60 mg SQ V4AUSOKE #1 mL 01/10/24 03/24/24 Rx syringe (Prolia) albuterol sulfate 90 mcg/actuation 2 puff inhalation Q4HP PRN 01/23/24 03/24/24 History aerosol inhaler Shortness Of Breath bisoprolol fumarate 5 mg tablet 5 mg PO DAILY 01/23/24 03/24/24 History pregabalin 25 mg capsule 25 mg PO TID 02/11/24 03/24/24 History potassium chloride 10 mEq 30 meq PO DAILY 03/23/24 03/24/24 History capsule,extended release bumetanide 1 mg tablet 1 mg PO DAILY 30 days #30 tabs 03/24/24 Rx levocetirizine 5 mg tablet 5 mg PO HS 03/24/24 03/24/24 History montelukast 10 mg tablet 10 mg PO PM 03/24/24 03/24/24 History rivaroxaban 15 mg tablet (Xarelto) 15 mg PO QPMWITHMEAL 03/24/24 03/24/24 History New Prescriptions to Start Prescriptions: bumetanide Heron Parikh Allergies Allergy/AdvReac Type Severity Reaction Status Date / Time celecoxib (From Celebrex) Allergy Severe RECTAL Verified 02/28/24 14:37 BLEEDING leflunomide Allergy Severe T-[id number]/THROAT,TINGLING Verified 02/28/24 14:37 OF HANDS, SORE THROAT nortriptyline Allergy Severe Weakness Verified 02/28/24 14:37 cefdinir Allergy Intermediate I-ITCHING Verified 02/28/24 14:37 ciprofloxacin Allergy Intermediate I-HIVES, Verified 02/28/24 14:37 ITCHING gabapentin Allergy Intermediate BODY Verified 02/28/24 14:37 SWELLING nitrofurantoin (From Allergy Intermediate I-HIVES, Verified 02/28/24 14:37 Macrobid) ITCHING budesonide (From Breztri Allergy Mild Swelling Verified 02/28/24 14:37 Aerosphere) of Lip/Tongue/Throat formoterol (From Breztri Allergy Mild Swelling Verified 02/28/24 14:37 Aerosphere) of Lip/Tongue/Throat glycopyrrolate (From Breztri Allergy Mild Swelling Verified 02/28/24 14:37 Aerosphere) of Lip/Tongue/Throat naproxen (From NAPROSYN) Allergy Unknown THROAT Verified 02/28/24 14:37 SWELLS Penicillins Allergy Verified 02/28/24 14:37 tramadol Allergy Other Verified 02/28/24 14:37 levofloxacin (From Levaquin) AdvReac Intermediate HYPER , Verified 02/28/24 14:37 SHAKES dexamethasone AdvReac Mild SHAKES Verified 02/28/24 14:37 pregabalin (From Lyrica) AdvReac Verified 03/23/24 13:01 vancomycin AdvReac hearing Verified 02/28/24 14:37 loss Exam Data for Last 24 hours Vital signs and Labs for Last 24 Hours: Temp Pulse Resp BP Pulse Ox O2 Del Method O2 Flow Rate 97.9 F 79 20 128/74 95 Nasal Cannula 2 03/23/24 20:00 03/23/24 20:00 03/23/24 20:00 03/23/24 20:00 03/23/24 20:00 03/23/24 21:00 03/23/24 21:00 FiO2 30 03/23/24 15:23 Laboratory Results - last 24 hr 03/23/24 14:05: WBC 7.4, RBC 4.45, Hgb 10.2 L, Hct 36.8 L, MCV 82.7, MCH 22.9 L, MCHC 27.7 L, RDW 18.0 H, Plt Count 268, MPV 10.6 H, Neut % (Auto) 66.6, Lymph % (Auto) 22.9, [place] % (Auto) 7.0, Eos % (Auto) 2.0, Baso % (Auto) 0.8, Neut # (Auto) 4.9, Lymph # (Auto) 1.7, [place] # (Auto) 0.5, Eos # (Auto) 0.2, Baso # (Auto) 0.1, Sodium 136, Potassium 4.6, Chloride 97 L, Carbon Dioxide 38 H, Anion Gap 5.6, BUN 32 H, Creatinine 0.80, Estimated Creat Clear 74, Estimated GFR 72, Est GFR ( Amer) 87, Glucose 92, Calcium 8.3 L, Magnesium 1.8, Total Bilirubin 0.3, AST 36, ALT 18, Alkaline Phosphatase 141 H, Troponin I < 0.01, NT-Pro-B Natriuret Pep 149 H, Total Protein 6.8, Albumin 4.1, Globulin 2.7, Albumin/Globulin Ratio 1.5 03/23/24 14:24: VBG pH 7.30 L, VBG pCO2 67.4 H, VBG pO2 48.0 H, VBG HCO3 32.6 H, VBG Total CO2 34.6 H, VBG O2 Saturation 81.3 H, VBG Base Excess 6.2 H, VBG Lactic Acid 1.1 03/23/24 15:25: SARS-CoV-2 (PCR) Not detected, Influenza Type A (PCR) Not detected, Influenza Type B (PCR) Not detected, RSV (PCR) Not detected, Rhinovirus (PCR) Not detected 03/23/24 17:36: Troponin I < 0.01 03/23/24 19:53: VBG pH 7.33, VBG pCO2 70.3 H, VBG pO2 42.6 H, VBG HCO3 36.2 H, VBG Total CO2 38.4 H, VBG O2 Saturation 77.1 H, VBG Base Excess 10.3 H, VBG Lactic Acid 2.2 H 03/23/24 20:15: Troponin I < 0.01 I & O for Last 24 hours: Intake & Output 03/20/24 03/21/24 03/22/24 03/23/24 23:59 23:59 23:59 23:59 Intake Total 280 / 280 Balance 280 / 280 Weight 83.461 kg Constitutional Constitutional: no acute distress *Routine HEENT Exam Head: Present normocephalic Eye: Present EOMI and PERRL ENT: Present mucous membranes moist *Routine Neck Exam Neck: Present supple; Absent lymphadenopathy *Routine Respiratory Exam Respiratory: Present wheezes Comments: Pursed lip breathing noted, mild. Wheezing noted bilateral anterior and posterior lung larios *Routine Cardiovascular Exam Cardiovascular: Present RRR Comments: +2 pitting edema noted bilateral lower extremity *Routine Abdominal Exam Abdominal: Present soft and normoactive bowel sounds; Absent tenderness *Routine Rectal Exam Rectal:: deferred *Routine Genitalia Exam Genitalia:: deferred *Routine Extremities Exam Extremities: Absent cyanosis, clubbing or edema *Routine Skin Exam Skin: Present intact and warm; Absent rash *Routine Neurological Exam Neurological: Present alert and oriented X3 Assessment and Plan *Assessment and plan (1) Acute and chronic respiratory failure with hypercapnia: Status: Acute Category: Medical Code(s): J96.22 - Acute and chronic respiratory failure with hypercapnia (2) Acute exacerbation of chronic obstructive pulmonary disease: Status: Acute Category: Medical Code(s): J44.1 - Chronic obstructive pulmonary disease with (acute) exacerbation (3) CHF exacerbation: Status: Acute Qualifiers: Heart failure type: unspecified Qualified Code(s): I50.9 - Heart failure, unspecified Category: Medical Code(s): I50.9 - Heart failure, unspecified (4) HLD (hyperlipidemia): Status: Chronic Qualifiers: Hyperlipidemia type: unspecified Qualified Code(s): E78.5 - Hyperlipidemia, unspecified Category: Medical Code(s): E78.5 - Hyperlipidemia, unspecified (5) HTN (hypertension): Status: Chronic Qualifiers: Hypertension type: essential hypertension Qualified Code(s): I10 - Essential (primary) hypertension Category: Medical Code(s): I10 - Essential (primary) hypertension (6) PAD (peripheral artery disease): Status: Acute Category: Medical Code(s): I73.9 - Peripheral vascular disease, unspecified Plan #Acute respiratory failure with hypercapnia #COPD exacerbation #SMOOTH Self-reports obstructive sleep apnea but does not use CPAP due to discomfort at home. Initial VBG with pH of 7.30 and CO2 of 67. Repeat with improved pH but increase in CO2 to 70. Will continue BiPAP overnight. Oxygenating well on home 2 L nasal cannula Diffuse wheezing noted. Continue bronchodilators and corticosteroid #CHF exacerbation, unspecified Prior echo cardiogram with EF 55% with normal diastolic function. RVSP of 25 to 30 mmHg. Moderate aortic regurgitation. Bilateral lower extremity edema, orthopnea and dyspnea on exertion, likely has worsening echocardiogram. Repeat echocardiogram completed, formal read pending Continue twice daily dosing of Bumex. Patient reports intermittent use at home but is compliant with spironolactone Monitor electrolytes with diuresis Strict intake and output #HTN #HLD #PAD Continue home medicines including bisoprolol, Xarelto Rounded on patient after nurse practitioner. Personally examined and interviewed patient. Agree with exam findings and care plan as documented.
[2024-03-23] MEDS: ALBUTEROL 0.083% 2.5 MG/3 ML NEB IH (22:04)
[2024-03-24] VITALS (7 sets, daily range): BP systolic 105–114; BP diastolic 58–67; PULSE 72–87; RESP 17–20; TEMP 36.4–36.6; O2SAT 92–97; BMI 36.9
[2024-03-24 00:12] LABS: Reflex Lactic Add Lactic Reflex
[2024-03-24 00:48] LABS: Lactic Acid Follow Up (RFLX 1) 0.8 mmol/L (0.7-2.1)
[2024-03-24] MEDS: ALBUTEROL 0.083% 2.5 MG/3 ML NEB IH ×3 (01:18→09:44)
[2024-03-24] MEDS: MAGNESIUM SULFATE IN WATER 2 GM/50 ML PIGGYBACK IV (01:41)
--- NOTE | 2024-03-24 06:16 | PC.NURSE ---
Pt A&OX4. Currently on 2L nasal cannula but has been on BiPap most of the night. Lung sounds diminished and bowel sounds active. She has ambulated with standby assist. She did complain of leg cramps twice this shift and was medicated per MAY. Currently resting in bed with call light within reach.
[2024-03-24 06:28] LABS: Lactate Venous 1.3 mmol/L (0.4-2.0); VBG HCO3 30.3 mmol/L (23-30); VBG Oxygen Saturation 93.6 % (50-70); VBG PCO2 47.2 mmol/L (35-51); VBG PH 7.43 mmol/L (7.31-7.41); VBG PO2 63.7 mmol/L (28-40); VBG Total CO2 31.8 mmol/L (23-27)
[2024-03-24 07:06] LABS: Basophils % 0.2 % (0.1-2.0); Hematocrit 34.9 % (37.0-47.0); Hemoglobin 9.9 g/dL (12.2-16.2); Lymphocytes # 0.6 K/mm3 (0.7-4.5); Lymphocytes % 10.3 % (10-50); Mean Corpuscular HGB Conc 28.4 g/dL (31.8-35.4); Mean Corpuscular Hemoglobin 22.9 pg (27.0-31.2); Mean Corpuscular Volume 80.8 fl (81-99); Mean Platelet Volume 11.1 fl (7.4-10.4); Monocytes # 0.1 K/mm3 (0.1-1.0); Monocytes % 1.9 % (1.7-9.3); Neutrophils # 4.7 K/mm3 (1.8-7.8); Neutrophils % 86.7 % (37.0-80.0); Platelet Count 278 K/mm3 (142-424); Red Blood Count 4.32 M/mm3 (4.20-5.40); Red Cell Distribution Width 17.3 % (11.5-17.5); White Blood Count 5.4 K/mm3 (4.8-10.8)
[2024-03-24 07:14] LABS: Alanine Aminotransferase 19 U/L (12-78); Albumin Level 3.9 g/dl (3.5-5.0); Albumin/Globulin Ratio 1.6 (1.1-1.8); Alkaline Phosphatase 146 U/L (38-126); Anion Gap 7.2 mEq/L (5-15); Aspartate Amino Transferase 36 U/L (14-36); Bilirubin,Total 0.3 mg/dl (0.2-1.3); Blood Urea Nitrogen 26 mg/dl (7-17); Calcium 7.9 mg/dl (8.4-10.2); Carbon Dioxide 38 mmol/L (22.0-30.0); Chloride 96 mmol/L (98-107); Creatinine Clearance Estimated 74 mL/min (50-200); Estimated Glomerular Filt Rate 72 ml/min (>60); GFR (African American) 87 ML/MIN (>60); Globulin 2.5 g/dL (1.3-3.2); Glucose 121 mg/dl (74-100); Magnesium 2.9 mg/dl (1.6-2.3); Potassium 4.2 mmoL/L (3.5-5.1); Sodium 137 mmol/L (136-145); Total Protein,Serum 6.4 g/dl (6.3-8.2)
[2024-03-24] MEDS: TIZANIDINE 4MG TABLET 4 MG PO (07:19)
--- NOTE | 2024-03-24 07:52 | HMH.PHAINT1 ---
Pharmacy Intervention Comments: VERIFIED MEDICATIONS WITH OUTPATIENT PHARMACY, CONFIRMED WITH PATIENT.
[2024-03-24] MEDS: predniSONE 20MG TAB 40 MG PO (08:25)
[2024-03-24] MEDS: BUMETANIDE 1MG/4ML VIAL 1 MG IV (08:25)
[2024-03-24] MEDS: ACETAMINOPHEN 325MG TAB 650 MG PO (09:56)
--- NOTE | 2024-03-24 10:28 | EXP.DC.SUM ---
General Admission date:: 03/23/24 Discharge date: 03/24/24 HPI HPI HPI: This is a 63-year-old female with a past medical history of COPD on 2 L at baseline, chronic pain, pulmonary fibrosis, PAD, hypertension, hyperlipidemia who presents emergency department today with complaints of shortness of breath. She states worsening shortness of breath for approximately 1 week. Endorses increased lower extremity edema. States that 3 days ago her legs were so swollen she could not put her shoes on. States that she is having worsening dyspnea and orthopnea. Also reports increased wheezing. She denies any productive cough. Denies any vomiting or diarrhea or chills. Emergency Department workup notable for likely COPD exacerbation as well as element of volume overload. VBG shows mild hypercapnic respiratory failure with a pH of 7.3 and pCO2 of 67. BiPAP was applied at the the time of this result in the emergency department. Mildly elevated BNP of 149. Troponin negative. Chest x-ray without overt abnormality. Patient also reports feeling overtly tired recently. States that she will wake up from sleep overnight still tired throughout the day. Investigated this questionable to further and states that she had a CPAP machine at one point but it was recalled. States that she was unable to tolerate the CPAP mask due to skin breakdown. Hospital Course Hospital Course Hospital Course: Ms. Cruz is a 63-year-old female history of CHF, ex-smoker, pulmonary fibrosis who presented with increased respiratory distress. Does not wear CPAP at home. Initiated on diuretics and BiPAP. Was alert and oriented at time of admission. Responded well to treatment during admission. At baseline level of health. Stable to discharge home with adjustments to medications. Problems addressed as follows: Acute on chronic HFpEF: Prior echo cardiogram with EF 55% with normal diastolic function. RVSP of 25 to 30 mmHg. Moderate aortic regurgitation. Patient lower extremity edema, orthopnea, and dyspnea upon exertion. Repeat echo obtained showing essentially the same findings, normal LV systolic function, mild RV dilation with mild reduction in RV function. Mild AI. Needs follow-up with cardiology to further evaluate RV dysfunction. Continued twice daily diuresis during admission. Transition to Bumex 1 mg daily ontinue twice daily dosing of Bumex. Patient reports intermittent use at home but is compliant with spironolactone Monitor electrolytes with diuresis Strict intake and output #Acute respiratory failure with hypercapnia #COPD exacerbation #SMOOTH Self-reports obstructive sleep apnea but does not use CPAP due to discomfort at home. Initial VBG with pH of 7.30 and CO2 of 67. Repeat with improvement, maintained baseline mentation throughout duration of hospitalization. Wore BiPAP overnight. Oxygenation stable on 2 L. Bronchodilators and steroids initiated for COPD exacerbation. Patient overall did well. Strongly encouraged her to wear her CPAP that she has at home. States she does not like to wear it because the mask does not fit well. Encouraged her to reach out to her supplier DME supplier. May benefit from repeat sleep study. Continue butyryl and budesonide breathing treatments at discharge. #HTN #HLD #PAD Continue home medicines including bisoprolol, Xarelto Total time spent on discharge 32 minutes in counseling, documentation, chart review, and direct care with patient. Exam Data for Last 24 hours Vital signs and Labs for Last 24 Hours: Temp Pulse Resp BP Pulse Ox O2 Del Method O2 Flow Rate 97.9 F 87 18 105/58 L 95 Nasal Cannula 2 03/24/24 08:00 03/24/24 09:46 03/24/24 08:00 03/24/24 08:00 03/24/24 09:46 03/24/24 09:46 03/24/24 09:46 FiO2 30 03/24/24 01:17 Laboratory Results - last 24 hr 03/23/24 14:05: WBC 7.4, RBC 4.45, Hgb 10.2 L, Hct 36.8 L, MCV 82.7, MCH 22.9 L, MCHC 27.7 L, RDW 18.0 H, Plt Count 268, MPV 10.6 H, Neut % (Auto) 66.6, Lymph % (Auto) 22.9, [place] % (Auto) 7.0, Eos % (Auto) 2.0, Baso % (Auto) 0.8, Neut # (Auto) 4.9, Lymph # (Auto) 1.7, [place] # (Auto) 0.5, Eos # (Auto) 0.2, Baso # (Auto) 0.1, Sodium 136, Potassium 4.6, Chloride 97 L, Carbon Dioxide 38 H, Anion Gap 5.6, BUN 32 H, Creatinine 0.80, Estimated Creat Clear 74, Estimated GFR 72, Est GFR ( Amer) 87, Glucose 92, Calcium 8.3 L, Magnesium 1.8, Total Bilirubin 0.3, AST 36, ALT 18, Alkaline Phosphatase 141 H, Troponin I < 0.01, NT-Pro-B Natriuret Pep 149 H, Total Protein 6.8, Albumin 4.1, Globulin 2.7, Albumin/Globulin Ratio 1.5 03/23/24 14:24: VBG pH 7.30 L, VBG pCO2 67.4 H, VBG pO2 48.0 H, VBG HCO3 32.6 H, VBG Total CO2 34.6 H, VBG O2 Saturation 81.3 H, VBG Base Excess 6.2 H, VBG Lactic Acid 1.1 03/23/24 15:25: SARS-CoV-2 (PCR) Not detected, Influenza Type A (PCR) Not detected, Influenza Type B (PCR) Not detected, RSV (PCR) Not detected, Rhinovirus (PCR) Not detected 03/23/24 17:36: Troponin I < 0.01 03/23/24 19:53: VBG pH 7.33, VBG pCO2 70.3 H, VBG pO2 42.6 H, VBG HCO3 36.2 H, VBG Total CO2 38.4 H, VBG O2 Saturation 77.1 H, VBG Base Excess 10.3 H, VBG Lactic Acid 2.2 H 03/23/24 20:15: Troponin I < 0.01 03/23/24 20:46: Chlamy pneumoniae PCR Not detected, Adenovirus (PCR) Not detected, B. pertussis DNA (PCR) Not detected, Coronavirus OC43 (PCR) Not detected, Coronavirus HKU1 (PCR) Not detected, Coronavirus 229E (PCR) Not detected, SARS-CoV-2 (PCR) Not detected, Coronavirus NL63 (PCR) Not detected, Human Metapneumovir PCR Not detected, Influenza A (H1) PCR Not detected, Influ A (H1N1/09) PCR Not detected, Influenza A (H3) PCR Not detected, Influenza Type A (PCR) Not detected, Influenza Type B (PCR) Not detected, M. pneumoniae (PCR) Not detected, Parainfluenza 1 (PCR) Not detected, Parainfluenza 2 (PCR) Not detected, Parainfluenza 3 (PCR) Not detected, Parainfluenza 4 (PCR) Not detected, RSV (PCR) Not detected, Entero/Rhino (PCR) Not detected 03/24/24 00:23: Lactate 0.8 03/24/24 06:00: VBG pH 7.43 H, VBG pCO2 47.2, VBG pO2 63.7 H, VBG HCO3 30.3 H, VBG Total CO2 31.8 H, VBG O2 Saturation 93.6 H, VBG Base Excess 6.0 H, VBG Lactic Acid 1.3 03/24/24 06:20: WBC 5.4 D, RBC 4.32, Hgb 9.9 L, Hct 34.9 L, MCV 80.8 L, MCH 22.9 L, MCHC 28.4 L, RDW 17.3, Plt Count 278, MPV 11.1 H, Neut % (Auto) 86.7 H, Lymph % (Auto) 10.3, [place] % (Auto) 1.9, Eos % (Auto) 0.0 L, Baso % (Auto) 0.2, Neut # (Auto) 4.7, Lymph # (Auto) 0.6 L, [place] # (Auto) 0.1, Eos # (Auto) 0.0, Baso # (Auto) 0.0, Sodium 137, Potassium 4.2, Chloride 96 L, Carbon Dioxide 38 H, Anion Gap 7.2, BUN 26 H, Creatinine 0.80, Estimated Creat Clear 74, Estimated GFR 72, Est GFR ( Amer) 87, Glucose 121 H D, Calcium 7.9 L, Magnesium 2.9 H D, Total Bilirubin 0.3, AST 36, ALT 19, Alkaline Phosphatase 146 H, Total Protein 6.4, Albumin 3.9, Globulin 2.5, Albumin/Globulin Ratio 1.6 I & O for Last 24 hours: Intake & Output 03/21/24 03/22/24 03/23/24 03/24/24 23:59 23:59 23:59 23:59 Intake Total 280 / 530 400 / 400 Output Total 500 / 500 Balance 280 / 530 -100 / -100 Weight 83.461 kg 83.098 kg Constitutional Constitutional: no acute distress, obese, chronically ill appearing and cooperative *Routine HEENT Exam Head: Present normocephalic Eye: Present EOMI and PERRL ENT: Present mucous membranes moist *Routine Neck Exam Neck: Present supple; Absent lymphadenopathy *Routine Respiratory Exam Respiratory: Present prolonged expiratory phase, diminished air movement and normal respiratory effort; Absent rhonchi, wheezes or crackles *Routine Cardiovascular Exam Cardiovascular: Present RRR *Routine Abdominal Exam Abdominal: Present soft and normoactive bowel sounds; Absent tenderness *Routine Rectal Exam Patient deferred: visual exam *Routine Exam Patient deferred: external exam *Routine Extremities Exam Extremities: Absent cyanosis, clubbing or edema *Routine Skin Exam Skin: Present warm; Absent rash *Routine Neurological Exam Neurological: Present alert, oriented X3 and moving all extremities; Absent altered mental status Results Data Completed and Pending Labs on day of discharge: Labs from last 24 hours 03/24/24 03/24/24 03/24/24 06:20 06:00 00:23 WBC 5.4 D RBC 4.32 Hgb 9.9 L Hct 34.9 L MCV 80.8 L MCH 22.9 L MCHC 28.4 L RDW 17.3 Plt Count 278 MPV 11.1 H Neut % (Auto) 86.7 H Lymph % (Auto) 10.3 [place] % (Auto) 1.9 Eos % (Auto) 0.0 L Baso % (Auto) 0.2 Neut # (Auto) 4.7 Lymph # (Auto) 0.6 L [place] # (Auto) 0.1 Eos # (Auto) 0.0 Baso # (Auto) 0.0 VBG pH 7.43 H VBG pCO2 47.2 VBG pO2 63.7 H VBG HCO3 30.3 H VBG Total CO2 31.8 H VBG O2 Saturation 93.6 H VBG Base Excess 6.0 H VBG Lactic Acid 1.3 Sodium 137 Potassium 4.2 Chloride 96 L Carbon Dioxide 38 H Anion Gap 7.2 BUN 26 H Creatinine 0.80 Estimated Creat Clear 74 Estimated GFR 72 Est GFR ( Amer) 87 Glucose 121 H D Lactate 0.8 Calcium 7.9 L Magnesium 2.9 H D Total Bilirubin 0.3 AST 36 ALT 19 Alkaline Phosphatase 146 H Troponin I NT-Pro-B Natriuret Pep Total Protein 6.4 Albumin 3.9 Globulin 2.5 Albumin/Globulin Ratio 1.6 Chlamy pneumoniae PCR Adenovirus (PCR) B. pertussis DNA (PCR) Coronavirus OC43 (PCR) Coronavirus HKU1 (PCR) Coronavirus 229E (PCR) SARS-CoV-2 (PCR) Coronavirus NL63 (PCR) Human Metapneumovir PCR Influenza A (H1) PCR Influ A (H1N1/09) PCR Influenza A (H3) PCR Influenza Type A (PCR) Influenza Type B (PCR) M. pneumoniae (PCR) Parainfluenza 1 (PCR) Parainfluenza 2 (PCR) Parainfluenza 3 (PCR) Parainfluenza 4 (PCR) RSV (PCR) Rhinovirus (PCR) Entero/Rhino (PCR) 03/23/24 03/23/24 03/23/24 20:46 20:15 19:53 WBC RBC Hgb Hct MCV MCH MCHC RDW Plt Count MPV Neut % (Auto) Lymph % (Auto) [place] % (Auto) Eos % (Auto) Baso % (Auto) Neut # (Auto) Lymph # (Auto) [place] # (Auto) Eos # (Auto) Baso # (Auto) VBG pH 7.33 VBG pCO2 70.3 H VBG pO2 42.6 H VBG HCO3 36.2 H VBG Total CO2 38.4 H VBG O2 Saturation 77.1 H VBG Base Excess 10.3 H VBG Lactic Acid 2.2 H Sodium Potassium Chloride Carbon Dioxide Anion Gap BUN Creatinine Estimated Creat Clear Estimated GFR Est GFR ( Amer) Glucose Lactate Calcium Magnesium Total Bilirubin AST ALT Alkaline Phosphatase Troponin I < 0.01 NT-Pro-B Natriuret Pep Total Protein Albumin Globulin Albumin/Globulin Ratio Chlamy pneumoniae PCR Not detected Adenovirus (PCR) Not detected B. pertussis DNA (PCR) Not detected Coronavirus OC43 (PCR) Not detected Coronavirus HKU1 (PCR) Not detected Coronavirus 229E (PCR) Not detected SARS-CoV-2 (PCR) Not detected Coronavirus NL63 (PCR) Not detected Human Metapneumovir PCR Not detected Influenza A (H1) PCR Not detected Influ A (H1N1/09) PCR Not detected Influenza A (H3) PCR Not detected Influenza Type A (PCR) Not detected Influenza Type B (PCR) Not detected M. pneumoniae (PCR) Not detected Parainfluenza 1 (PCR) Not detected Parainfluenza 2 (PCR) Not detected Parainfluenza 3 (PCR) Not detected Parainfluenza 4 (PCR) Not detected RSV (PCR) Not detected Rhinovirus (PCR) Entero/Rhino (PCR) Not detected 03/23/24 03/23/24 03/23/24 17:36 15:25 14:24 WBC RBC Hgb Hct MCV MCH MCHC RDW Plt Count MPV Neut % (Auto) Lymph % (Auto) [place] % (Auto) Eos % (Auto) Baso % (Auto) Neut # (Auto) Lymph # (Auto) [place] # (Auto) Eos # (Auto) Baso # (Auto) VBG pH 7.30 L VBG pCO2 67.4 H VBG pO2 48.0 H VBG HCO3 32.6 H VBG Total CO2 34.6 H VBG O2 Saturation 81.3 H VBG Base Excess 6.2 H VBG Lactic Acid 1.1 Sodium Potassium Chloride Carbon Dioxide Anion Gap BUN Creatinine Estimated Creat Clear Estimated GFR Est GFR ( Amer) Glucose Lactate Calcium Magnesium Total Bilirubin AST ALT Alkaline Phosphatase Troponin I < 0.01 NT-Pro-B Natriuret Pep Total Protein Albumin Globulin Albumin/Globulin Ratio Chlamy pneumoniae PCR Adenovirus (PCR) B. pertussis DNA (PCR) Coronavirus OC43 (PCR) Coronavirus HKU1 (PCR) Coronavirus 229E (PCR) SARS-CoV-2 (PCR) Not detected Coronavirus NL63 (PCR) Human Metapneumovir PCR Influenza A (H1) PCR Influ A (H1N1/09) PCR Influenza A (H3) PCR Influenza Type A (PCR) Not detected Influenza Type B (PCR) Not detected M. pneumoniae (PCR) Parainfluenza 1 (PCR) Parainfluenza 2 (PCR) Parainfluenza 3 (PCR) Parainfluenza 4 (PCR) RSV (PCR) Not detected Rhinovirus (PCR) Not detected Entero/Rhino (PCR) 03/23/24 14:05 WBC 7.4 RBC 4.45 Hgb 10.2 L Hct 36.8 L MCV 82.7 MCH 22.9 L MCHC 27.7 L RDW 18.0 H Plt Count 268 MPV 10.6 H Neut % (Auto) 66.6 Lymph % (Auto) 22.9 [place] % (Auto) 7.0 Eos % (Auto) 2.0 Baso % (Auto) 0.8 Neut # (Auto) 4.9 Lymph # (Auto) 1.7 [place] # (Auto) 0.5 Eos # (Auto) 0.2 Baso # (Auto) 0.1 VBG pH VBG pCO2 VBG pO2 VBG HCO3 VBG Total CO2 VBG O2 Saturation VBG Base Excess VBG Lactic Acid Sodium 136 Potassium 4.6 Chloride 97 L Carbon Dioxide 38 H Anion Gap 5.6 BUN 32 H Creatinine 0.80 Estimated Creat Clear 74 Estimated GFR 72 Est GFR ( Amer) 87 Glucose 92 Lactate Calcium 8.3 L Magnesium 1.8 Total Bilirubin 0.3 AST 36 ALT 18 Alkaline Phosphatase 141 H Troponin I < 0.01 NT-Pro-B Natriuret Pep 149 H Total Protein 6.8 Albumin 4.1 Globulin 2.7 Albumin/Globulin Ratio 1.5 Chlamy pneumoniae PCR Adenovirus (PCR) B. pertussis DNA (PCR) Coronavirus OC43 (PCR) Coronavirus HKU1 (PCR) Coronavirus 229E (PCR) SARS-CoV-2 (PCR) Coronavirus NL63 (PCR) Human Metapneumovir PCR Influenza A (H1) PCR Influ A (H1N1/09) PCR Influenza A (H3) PCR Influenza Type A (PCR) Influenza Type B (PCR) M. pneumoniae (PCR) Parainfluenza 1 (PCR) Parainfluenza 2 (PCR) Parainfluenza 3 (PCR) Parainfluenza 4 (PCR) RSV (PCR) Rhinovirus (PCR) Entero/Rhino (PCR) DS: Diagnosis Discharge Diagnosis (1) Acute and chronic respiratory failure with hypercapnia: Status: Acute Code(s): J96.22 - Acute and chronic respiratory failure with hypercapnia (2) Acute exacerbation of chronic obstructive pulmonary disease: Status: Acute Code(s): J44.1 - Chronic obstructive pulmonary disease with (acute) exacerbation (3) CHF exacerbation: Status: Acute Code(s): I50.9 - Heart failure, unspecified Qualifiers: Heart failure type: unspecified Qualified Code(s): I50.9 - Heart failure, unspecified (4) HLD (hyperlipidemia): Status: Chronic Code(s): E78.5 - Hyperlipidemia, unspecified Qualifiers: Hyperlipidemia type: unspecified Qualified Code(s): E78.5 - Hyperlipidemia, unspecified (5) HTN (hypertension): Status: Chronic Code(s): I10 - Essential (primary) hypertension Qualifiers: Hypertension type: essential hypertension Qualified Code(s): I10 - Essential (primary) hypertension (6) PAD (peripheral artery disease): Status: Acute Code(s): I73.9 - Peripheral vascular disease, unspecified Meds Home Medications and Allergies Home Medications ?Medication ?Instructions ?Recorded ?Confirmed ?Type pramipexole 1.5 mg tablet 1.5 mg PO BID 03/08/21 03/24/24 History albuterol sulfate 2.5 mg/3 mL 2.5 mg inhalation Q6HP PRN 11/19/22 03/24/24 History (0.083 %) solution for nebulization Shortness Of Breath dexlansoprazole 60 mg 60 mg PO DAILY 11/20/22 03/24/24 History capsule,biphase delayed release (Dexilant) dicyclomine 10 mg capsule 10 mg PO QID 90 days #360 caps 03/27/23 03/24/24 Rx ascorbic acid 125 mg-collagen, 1 cap PO DAILY 05/16/23 03/24/24 History hydrolyzed 740 mg capsule (Collagen Plus Vitamin C) coenzyme Q10 100 mg capsule 300 mg PO DAILY 05/16/23 03/24/24 History (CoQ-10) tizanidine 4 mg tablet (Zanaflex) 4 mg PO QID 90 days #360 tabs 06/26/23 03/24/24 Rx venlafaxine 150 mg 300 mg (2 x 150 mg) PO DAILY 90 09/11/23 03/24/24 Rx capsule,extended release 24 hr days #180 caps (Effexor XR) spironolactone 25 mg tablet 25 mg PO DAILY #90 tabs 09/23/23 03/24/24 Rx budesonide 0.5 mg/2 mL suspension 0.5 mg (2 mL) inhalation BID 90 11/21/23 03/24/24 Rx for nebulization (Pulmicort) days #360 mL hydrocortisone 2.5 % topical cream 1 applic topical DIRECTED PRN 01/08/24 03/24/24 History Itching triamcinolone acetonide 0.1 % 1 applic topical DIRECTED PRN 01/08/24 03/24/24 History topical cream Itching denosumab 60 mg/mL subcutaneous 60 mg SQ [id number] #1 mL 01/10/24 03/24/24 Rx syringe (Prolia) albuterol sulfate 90 mcg/actuation 2 puff inhalation Q4HP PRN 01/23/24 03/24/24 History aerosol inhaler Shortness Of Breath bisoprolol fumarate 5 mg tablet 5 mg PO DAILY 01/23/24 03/24/24 History pregabalin 25 mg capsule 25 mg PO TID 02/11/24 03/24/24 History potassium chloride 10 mEq 30 meq PO DAILY 03/23/24 03/24/24 History capsule,extended release bumetanide 1 mg tablet 1 mg PO DAILY 30 days #30 tabs 03/24/24 Rx levocetirizine 5 mg tablet 5 mg PO HS 03/24/24 03/24/24 History montelukast 10 mg tablet 10 mg PO PM 03/24/24 03/24/24 History rivaroxaban 15 mg tablet (Xarelto) 15 mg PO QPMWITHMEAL 03/24/24 03/24/24 History New Prescriptions to Start Prescriptions: bumetanide Heron Parikh Allergies Allergy/AdvReac Type Severity Reaction Status Date / Time celecoxib (From Celebrex) Allergy Severe RECTAL Verified 02/28/24 14:37 BLEEDING leflunomide Allergy Severe [id number]/THROAT,TINGLING Verified 02/28/24 14:37 OF HANDS, SORE THROAT nortriptyline Allergy Severe Weakness Verified 02/28/24 14:37 cefdinir Allergy Intermediate I-ITCHING Verified 02/28/24 14:37 ciprofloxacin Allergy Intermediate I-HIVES, Verified 02/28/24 14:37 ITCHING gabapentin Allergy Intermediate BODY Verified 02/28/24 14:37 SWELLING nitrofurantoin (From Allergy Intermediate I-HIVES, Verified 02/28/24 14:37 Macrobid) ITCHING budesonide (From Breztri Allergy Mild Swelling Verified 02/28/24 14:37 Aerosphere) of Lip/Tongue/Throat formoterol (From Breztri Allergy Mild Swelling Verified 02/28/24 14:37 Aerosphere) of Lip/Tongue/Throat glycopyrrolate (From Breztri Allergy Mild Swelling Verified 02/28/24 14:37 Aerosphere) of Lip/Tongue/Throat naproxen (From NAPROSYN) Allergy Unknown THROAT Verified 02/28/24 14:37 SWELLS Penicillins Allergy Verified 02/28/24 14:37 tramadol Allergy Other Verified 02/28/24 14:37 levofloxacin (From Levaquin) AdvReac Intermediate HYPER , Verified 02/28/24 14:37 SHAKES dexamethasone AdvReac Mild SHAKES Verified 02/28/24 14:37 pregabalin (From Lyrica) AdvReac Verified 03/23/24 13:01 vancomycin AdvReac hearing Verified 02/28/24 14:37 loss Discharge Plan Disposition Patient Disposition: Home, Self-Care Condition: Fair Follow up Plan Follow up with: Sandra Orozco APRN [Primary Care Provider] - 03/31/24 3:45 pm Prescriptions/Medication Reconciliation: Continued albuterol sulfate 2.5 mg /3 mL (0.083 %) solution for nebulization 2.5 mg inhalation Q6HP PRN (Reason: Shortness Of Breath) dicyclomine 10 mg capsule 10 mg PO QID 90 Days Qty: 360 2RF budesonide [Pulmicort] 0.5 mg/2 mL suspension for nebulization 0.5 mg inhalation BID 90 Days Qty: 360 2RF triamcinolone acetonide 0.1 % cream 1 applic topical DIRECTED PRN (Reason: Itching) hydrocortisone 2.5 % cream 1 applic topical DIRECTED PRN (Reason: Itching) pregabalin 25 mg capsule 25 mg PO TID tizanidine [Zanaflex] 4 mg tablet 4 mg PO QID 90 Days Qty: 360 3RF venlafaxine [Effexor XR] 150 mg capsule,extended release 24hr 300 mg PO DAILY 90 Days Qty: 180 2RF potassium chloride 10 mEq capsule, extended release 30 meq PO DAILY spironolactone 25 mg tablet 25 mg PO DAILY Qty: 90 3RF Prolia 60 mg/mL syringe 60 mg SQ [id number] Qty: 1 1RF coenzyme Q10 [CoQ-10] 100 mg Capsule 300 mg PO DAILY Collagen Plus Vitamin C 125-740 mg Capsule 1 cap PO DAILY bisoprolol fumarate 5 mg tablet 5 mg PO DAILY albuterol sulfate 90 mcg/actuation HFA aerosol inhaler 2 puff inhalation Q4HP PRN (Reason: Shortness Of Breath) montelukast 10 mg tablet 10 mg PO PM levocetirizine 5 mg tablet 5 mg PO HS Xarelto 15 mg tablet 15 mg PO QPMWITHMEAL Rx Instructions: must administer with evening meal bumetanide 1 mg tablet 1 mg PO DAILY 30 Days Qty: 30 0RF pramipexole 1.5 MG tablet 1.5 mg PO BID dexlansoprazole [Dexilant] 60 mg capsule,biphase delayed releas 60 mg PO DAILY Problem Reconciliation Problems Reviewed?: Yes Patient Discharge Instructions ACTIVITY: Continue current activity DIET: continue same diet Patient Instructions: DI for Shortness of Breath, How to Manage Shortness of Breath Print Language: Czech Providers Primary Care Provider: Sandra Orozco Admit Provider: Heron Parikh Attending Provider: Heron Parikh
--- NOTE | 2024-03-24 13:45 | HMH.PHAINT1 ---
Pharmacy Intervention Comments: COUNSELED PATIENT ON MEDICATIONS, SHE IS FAMILIAR WITH ALL SHE IS CONTINUING ALL OF HER MEDS. PATIENT VERBALIZED UNDERSTANDING.
--- NOTE | 2024-03-25 11:06 | SW/DCPLANNER ---
Spoke with patient on the phone. Patient stated that she is doing well. Patient stated that she is waiting on her primary care provider to get her order for her new head gear for her cpap machine. Patient stated that she is aware of her upcoming appointment and that she has no concerns or questions at this time. Dayanara Kramer
== END 2024-03-24 14:08 | disposition home or self-care (01) ==
LOC: ER 14:15 → 2ND 17:20
PROVIDERS: Nurse Practitioner Acute Care; Physician Assistant; Admitting Provider Internal Medicine Adolescent Medicine; Emergency Provider Emergency Medicine; PCP Nurse Practitioner Family; Visit Provider Internal Medicine Adolescent Medicine
DX: J44.1 Chronic obstructive pulmonary disease with (acute) exacerbation (principal); I50.33 Acute on chronic diastolic (congestive) heart failure; J96.22 Acute and chronic respiratory failure with hypercapnia; E78.5 Hyperlipidemia, unspecified; I73.9 Peripheral vascular disease, unspecified; I10 Essential (primary) hypertension; G47.33 Obstructive sleep apnea (adult) (pediatric); Z79.899 Other long term (current) drug therapy; Z79.51 Long term (current) use of inhaled steroids; Z79.01 Long term (current) use of anticoagulants; Z99.81 Dependence on supplemental oxygen; Z87.891 Personal history of nicotine dependence
CPT/HCPCS: 36415; 71045; 80053; 82803; 83605; 83735; 83880; 84484; 85025; 87631; 87633; 93005; 93306; 94640; 99291; G0378; J1939; J1940; J2919; J3475; J7613

== ENCOUNTER 2024-04-01 09:58 | Outpatient (CLI) | payer MEDICARE, OTHER, SELFPAY ==
--- NOTE | 2024-04-01 10:22 | MM_ITS ---
PROCEDURE INFORMATION: Exam: MG Bilateral Diagnostic Breast Tomosynthesis Exam date and time: 04/01/2024 10:07 AM Age: 63 years old Clinical indication: Due for annual screening. Chronic right nipple inversion. Apparently, the patient noticed a yellow spot on right nipple . Specifically, however, the patient worksheet says no nipple discharge. TECHNIQUE: Imaging protocol: Bilateral Diagnostic tomosynthesis and 2D mammography including computer-aided detection (CAD) when performed. Unilateral or bilateral exam. COMPARISON: 1. MG SCBI MM Dig screening mamm BI w/CAD 09/16/2017 8:55 AM 2. MG DMSB DIG MAMM-SCREEN ERNESTINA W/CAD 09/13/2016 10:04 AM 3. 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 MG BM ERNESTINA SCREEN MAMM W SUNNI PNL 04/06/2015 9:15 AM FINDINGS: MAMMOGRAPHY: Breast composition: There are scattered areas of fibroglandular density. Breast mammogram findings: Stable benign-appearing calcifications are present. No new mass, architectural distortion, or suspicious cluster of calcifications has developed to suggest malignancy. No axillary adenopathy. IMPRESSION: No mammographic evidence of malignancy. Recommend annual screening mammography unless otherwise clinically indicated. Please carefully confirm the clinical history provided to me. If there is history of nipple discharge or new nipple inversion then retroareolar ultrasound should be performed. ASSESSMENT: BI-RADS category 2: Benign
== END 2024-04-01 23:59 | disposition home or self-care (01) ==
LOC: RAD 10:00
PROVIDERS: PCP Nurse Practitioner Family; Visit Provider Nurse Practitioner Family
DX: N64.53 Retraction of nipple (principal)
CPT/HCPCS: 77062; 77066; G0279

== ENCOUNTER 2024-04-10 10:03 | Outpatient (CLI) | payer MEDICARE, OTHER, SELFPAY ==
--- NOTE | 2024-04-10 10:05 | US_ITS ---
PROCEDURE INFORMATION: Exam: US Right Breast, Complete Exam date and time: 04/10/2024 10:20 AM Age: 63 years old Clinical indication: Changes in appearance of the right nipple. Diagnostic mammogram performed on 04/01/2024 was normal. TECHNIQUE: Imaging protocol: Complete ultrasound of all four quadrants of the right breast and the retroareolar regions, including ultrasound of the axilla when performed. COMPARISON: MG MM DIG MAMM BI DX W/CAD 04/01/2024 10:07 AM FINDINGS: ULTRASOUND: Breast ultrasound findings: Ultrasound of the right breast is performed. There are areas of shadowing in fat necrosis throughout the right breast consistent with benign oil cysts are also seen mammographically. No abnormality of the nipple is seen. No suspicious solid mass or distortion. No axillary adenopathy. IMPRESSION: No sonographic evidence of malignancy in the right breast. Continued clinical monitoring for further changes of the nipple is recommended, with breast MRI or referral to a breast surgeon if there is worsening of signs or symptoms related to the nipple. ASSESSMENT: BI-RADS Category 2: Benign.
== END 2024-04-10 23:59 | disposition home or self-care (01) ==
LOC: RAD 10:05
PROVIDERS: PCP Nurse Practitioner Family; Visit Provider Nurse Practitioner Family
DX: N64.53 Retraction of nipple (principal)
CPT/HCPCS: 76641

== ENCOUNTER 2024-04-15 13:23 | Outpatient (CLI) | payer MEDICARE, OTHER, SELFPAY ==
--- NOTE | 2024-04-15 13:26 | XR_ITS ---
FINAL REPORT CLINICAL HISTORY: Right knee pain post fall FINDINGS: Right knee Three views were obtained. There is no fracture or dislocation. The joint spaces appear normal. No soft tissue abnormality is identified. IMPRESSION: No acute process. Reviewed, Interpreted and Dictated by Delbert Boo MD Transcribed by Deidre South Authenticated and [facility]
--- NOTE | 2024-04-15 13:26 | XR_ITS ---
FINAL REPORT CLINICAL HISTORY: Left knee pain post fall FINDINGS: Left knee Three views were obtained. There is no fracture or dislocation. The joint spaces appear normal. No soft tissue abnormality is identified. IMPRESSION: No acute process. Reviewed, Interpreted and Dictated by Delbert Boo MD Transcribed by Deidre South Authenticated and [facility]
== END 2024-04-15 23:59 | disposition home or self-care (01) ==
LOC: RAD 13:24
PROVIDERS: PCP Nurse Practitioner Family; Visit Provider Nurse Practitioner Family
DX: M25.561 Pain in right knee (principal); M25.562 Pain in left knee
CPT/HCPCS: 73562

== ENCOUNTER 2024-04-23 11:36 | Outpatient (CLI) | payer MEDICARE, OTHER, SELFPAY ==
[2024-04-23 13:02] LABS: Albumin Level 4.4 g/dl (3.5-5.0); Chloride 98 mmol/L (98-107); Sodium 138 mmol/L (136-145)
[2024-04-23 13:04] LABS: Blood Urea Nitrogen 30 mg/dl (7-17); Estimated Glomerular Filt Rate 63 ml/min (>60); GFR (African American) 76 ML/MIN (>60)
[2024-04-23 13:05] LABS: Alanine Aminotransferase 16 U/L (12-78); Alkaline Phosphatase 98 U/L (38-126); Aspartate Amino Transferase 27 U/L (14-36); Bilirubin,Indirect 0.2 mg/dL (0.0-0.9); Bilirubin,Total 0.2 mg/dl (0.2-1.3); Bilirubin,Unconjugated 0.2 mg/dL (0.0-1.1); Calcium 8.7 mg/dl (8.4-10.2); Carbon Dioxide 35 mmol/L (22.0-30.0); Chol/HDL Ratio 4.5 (1-3.5); Cholesterol 225 mg/dl (140-200); Glucose 104 mg/dl (74-100); HDL Cholesterol 50 mg/dl (40-60); Total Protein,Serum 6.7 g/dl (6.3-8.2); Triglycerides 163 mg/dl (30-150); VLDL Cholesterol 33 mg/dL (0-40)
[2024-04-23 13:18] LABS: Direct LDL Cholesterol 120.62 mg/dL (100-129)
[2024-04-24 13:21] LABS: C-Reactive Protein, Cardiac 2.51 mg/L (0.00-3.00)
[2024-04-27 12:25] LABS: Lipoprotein A 215.7
== END 2024-04-23 23:59 | disposition home or self-care (01) ==
LOC: LAB 11:37
PROVIDERS: PCP Nurse Practitioner Family; Visit Provider Internal Medicine Interventional Cardiology
DX: E78.00 Pure hypercholesterolemia, unspecified (principal); Z79.899 Other long term (current) drug therapy
CPT/HCPCS: 36415; 80048; 80061; 80076; 83036; 83695; 86141

== ENCOUNTER 2024-06-22 14:25 | Outpatient (CLI) | payer MEDICARE, OTHER, SELFPAY ==
--- NOTE | 2024-06-22 14:28 | XR_ITS ---
FINAL REPORT CLINICAL HISTORY: acute cough, soa COMPARISON: 03/23/2024 FINDINGS: 2 views of the chest were obtained . The heart is mildly enlarged. The mediastinum is within normal limits. There are mild chronic changes in the lung bases. Lungs are otherwise clear. There is no pneumothorax. Osseous structures are unremarkable. IMPRESSION: No acute cardiopulmonary process. Reviewed, Interpreted and Dictated by Delbert Boo MD Transcribed by Courtney Gomes Authenticated and [facility]
[2024-06-22 18:01] LABS: Chloride 100 mmol/L (98-107)
[2024-06-22 18:02] LABS: Albumin Level 4.2 g/dl (3.5-5.0); Sodium 141 mmol/L (136-145)
[2024-06-22 18:05] LABS: Alanine Aminotransferase 15 U/L (12-78); Albumin/Globulin Ratio 1.6 (1.1-1.8); Alkaline Phosphatase 121 U/L (38-126); Aspartate Amino Transferase 30 U/L (14-36); Bilirubin,Total 0.3 mg/dl (0.2-1.3); Blood Urea Nitrogen 25 mg/dl (7-17); Calcium 8.5 mg/dl (8.4-10.2); Carbon Dioxide 33 mmol/L (22.0-30.0); Estimated Glomerular Filt Rate 50 ml/min (>60); GFR (African American) 60 ML/MIN (>60); Globulin 2.7 g/dL (1.3-3.2); Glucose 81 mg/dl (74-100); Total Protein,Serum 6.9 g/dl (6.3-8.2)
[2024-06-22 18:41] LABS: Thyroid Stimulating Hormone 2.67 uIU/mL (0.465-4.68)
[2024-06-22 19:17] LABS: Uric Acid 5.1 mg/dl (2.5-6.2)
[2024-06-22 21:21] LABS: Erythrocyte Sedimentation Rate 17 mm/hr (0-30)
[2024-06-23 08:43] LABS: HBsAg Screen Negative (Negative); HCV Ab Non Reactive (Non Reactive); Hep A Ab, IGM Negative (Negative); Hep B Core Ab, IgM Negative (Negative)
[2024-06-23 14:25] LABS: RA Latex Turbid. 16.6 IU/mL (<14.0)
[2024-06-23 19:10] LABS: Antinuclear Antibodies, IFA Negative (.)
== END 2024-06-22 23:59 | disposition home or self-care (01) ==
LOC: RAD 14:26
PROVIDERS: PCP Nurse Practitioner Family; Visit Provider Nurse Practitioner Family
DX: J44.1 Chronic obstructive pulmonary disease with (acute) exacerbation (principal); R05.1 Acute cough; E78.5 Hyperlipidemia, unspecified; R74.8 Abnormal levels of other serum enzymes; M25.50 Pain in unspecified joint; R20.2 Paresthesia of skin; R20.0 Anesthesia of skin
CPT/HCPCS: 71046; 80053; 80074; 84443; 84550; 85651; 86038; 86431; 86803

== ENCOUNTER 2024-07-06 08:59 | Outpatient (CLI) | payer MEDICARE, OTHER, SELFPAY ==
--- OUTSIDE RECORDS SUMMARY | 2024-07-06 09:02 | XMS_ITS ---
Laboratory report Created on: June 25, 2024 JACKELYN GRECO : 1960 Sex: Female Author Organization Unknown PROBLEMS Problems List Code Description RESULTS Laboratory Orders Date Order Code Test 2024-06-22 [id number] ACUTE HEPATITIS 2024-06-22 [id number] RHEUMATOID FACTO R (RF) 2024-06-22 [id number] MARSHALL BY IFA RFX T ITER/PATTERN Laboratory Results Date LOINC Test Value Unit Reference Range Interpre tation 2024-06-22 [id number] HEP A AB, IGM N NEGATIVE 2024-06-22 [id number] HBSAG SCREEN N NEGATIVE 2024-06-22 [id number] HEP B CORE AB, IGM N NEGATIVE 2024-06-22 [id number] HCV AB NR NON REACTIVE 2024-06-22 [id number] RHEUMATOID FACTOR (RF) 16.6 IU/ML <14.0 H 2024-06-22 [id number] MARSHALL BY IFA RFX TITER/PATTERN N
[2024-07-06 10:33] LABS: Alanine Aminotransferase 15 U/L (12-78); Albumin Level 3.7 g/dl (3.5-5.0); Alkaline Phosphatase 117 U/L (38-126); Aspartate Amino Transferase 25 U/L (14-36); Bilirubin,Direct 0.1 mg/dl (0.0-0.4); Bilirubin,Indirect 0.3 mg/dL (0.0-0.9); Bilirubin,Total 0.4 mg/dl (0.2-1.3); Bilirubin,Unconjugated 0.3 mg/dL (0.0-1.1); Chol/HDL Ratio 2.3 (1-3.5); Cholesterol 127 mg/dl (140-200); HDL Cholesterol 56 mg/dl (40-60); Total Protein,Serum 6.4 g/dl (6.3-8.2); Triglycerides 79 mg/dl (30-150); VLDL Cholesterol 16 mg/dL (0-40)
[2024-07-06 10:44] LABS: Direct LDL Cholesterol 42.55 mg/dL (100-129)
[2024-07-07 08:13] LABS: C-Reactive Protein, Cardiac 4.39 mg/L (0.00-3.00)
[2024-07-07 11:27] LABS: Lipoprotein A 148.3 nmol/L (<75.0)
== END 2024-07-06 23:59 | disposition home or self-care (01) ==
PROVIDERS: PCP Nurse Practitioner Family; Visit Provider Internal Medicine Interventional Cardiology
DX: E78.5 Hyperlipidemia, unspecified (principal)
CPT/HCPCS: 36415; 80061; 80076; 83695; 86141

== ENCOUNTER 2024-07-23 11:36 | Outpatient (CLI) | payer MEDICARE, OTHER, SELFPAY ==
[2024-07-23 11:44] VITALS: BP 117/72; PULSE 78; RESP 22; TEMP 36.4; O2SAT 94
[2024-07-23] MEDS: DENOSUMAB 60 MG/ML SYRINGE SUBCUT (11:44)
== END 2024-07-23 12:00 | disposition home or self-care (01) ==
LOC: INF 11:38
PROVIDERS: PCP Nurse Practitioner Family; Visit Provider Nurse Practitioner Family
DX: M81.0 Age-related osteoporosis without current pathological fracture (principal)
CPT/HCPCS: 96372; J0897

== ENCOUNTER 2024-08-04 12:32 | Outpatient (CLI) | payer MEDICARE, OTHER, SELFPAY ==
[2024-08-04 13:45] VITALS: PULSE 63
[2024-08-04] MEDS: ALBUTEROL 0.083% 2.5 MG/3 ML NEB IH (13:45)
== END 2024-08-04 23:59 | disposition home or self-care (01) ==
LOC: RT 12:32
PROVIDERS: PCP Nurse Practitioner Family; Visit Provider Internal Medicine Pulmonary Disease
DX: J44.9 Chronic obstructive pulmonary disease, unspecified (principal)
CPT/HCPCS: 94060; 94618; 94640; 94726; 94729

== ENCOUNTER 2024-08-18 08:21 | Outpatient (CLI) | payer MEDICARE, OTHER, SELFPAY ==
--- OUTSIDE RECORDS SUMMARY | 2024-08-18 08:28 | XMS_ITS | Encounter Summary ---
Author Organization [employer] Address [address] [place] [address] Care Team Providers Care Diamond Selector Name Role Phone Orozco Sandra MIRANDA Primary Care Provider Encounter Details Date Type Department Care Team (Late st Contact Info) Description 05/19/2021 Transcribed Document [facility] Family Medicine [address] [place] [address] ProviderAide MD [address] [place] [address] Social History Tobacco Use Types Packs/Day Years Used Date Smoking Tobacco: Never Assessed Comments Unknown Sex and Gender Information Value Date Recorded Sex Assigned at Not on file Legal Sex Female 2:35 PM CDT Gender Identity Not on file Sexual Orientation Not on file documented as of this encounter Miscellaneous Notes * Cerner Conversion Note - Historical ProviderMD - 05/19/2021 2:36 PM DOUPER Nursing Discharge Summary Entered On: 05/19/2021 14:37 EST Performed On: 05/19/2021 14:36 EST by AZUCENA PALACIO Discharge Documentation Discharge Date/Time : 05/19/2021 14:36 EST Transporter Signature : AZUCENA PALACIO Patient Disposition, General : Discharge Discharge To : Home with ambulatory/outpatient follow-up Mode Of Departure, General Discharge : Ambulatory Accompanied By, Discharge : Mother IV Discontinued : Yes Personal Belongings With Patient : Yes Discharge Instructions Reviewed With, Opportunity For Questions Given : Patient Patient Education Completed : Yes Teaching Method : Explanation, Printed materials Teaching Evaluation : Verbalizes understanding Education Comment : SKIN WDP RESP UNLABORED/EVEN/A+OX4. VITALIY PROCEDURE WITHOUT DIFFICLTY AZUCENA PALACIO - 05/19/2021 14:36 EST Electronically signed by Interface, [facility] Conversion Administrative Support Assistant Cerner at 06/27/2022 8:11 AM CDT documented in this encounter Plan of Treatment Not on file documented as of this encounter Visit Diagnoses Not on filedocumented in this encounter Care Teams Diamond Selector Relationship Specialty Start Date End Date Sandra Orozco, COMMUNITY MANAGER [address] [place] [address] PCP - General Nurse Practitioner 01/24/22 documented as of this encounter
--- OUTSIDE RECORDS SUMMARY | 2024-08-18 08:28 | XMS_ITS | Encounter Summary ---
Author Organization [employer] Address [address] [place] [address] Care Team Providers Care Nuclear Weapons Mechanical Specialist Name Role Phone Sandra Orozco APRN Primary Care Provider Encounter Details Date Type Department Care Team (Late st Contact Info) Description 05/19/2021 Transcribed Document [facility] Family Medicine [address] [place] [address] ProviderAide MD [address] [place] [address] Social History Tobacco Use Types Packs/Day Years Used Date Smoking Tobacco: Never Assessed Comments Unknown Sex and Gender Information Value Date Recorded Sex Assigned at Not on file Legal Sex Female 2:35 PM CDT Gender Identity Not on file Sexual Orientation Not on file documented as of this encounter Miscellaneous Notes * Cerner Conversion Note - Historical ProviderMD - 05/19/2021 12:51 PM PRICE CHANGER PAT Adult Entered On: 05/19/2021 12:55 EST Performed On: 05/19/2021 12:51 EST by AZUCENA PALACIO Vital Measurements Temperature Source : Tympanic Temperature Mode : Fahrenheit Temperature, Fahrenheit : 97.5 Deg F Clinical Temperature, C : 36.4 Deg C Pulse Method : Pulse Oximetry Peripheral Pulse Rate : 67 bpm Respiratory Rate : 18 Breaths/Min Blood Pressure Location : Arm, right upper Blood Pressure Source : Non-Invasive BP Device Blood Pressure Position : Sitting Systolic Blood Pressure : 127 mmHg Diastolic Blood Pressure : 63 mmHg Oxygen Saturation : 92 % (LOW) LULUSHANICEAZUCENA 05/19/2021 12:51 EST Pain Assessment Pain Assessment : Initial assessment Pain Scale Used : 0-10 Scale PIA AZUCENA 05/19/2021 12:51 EST Height and Weight, Clinical Dosing Height Source : Stated Height Entry Format : [place] Height, Feet : 5 ft(Converted to: 152 cm, 60 Inch) Height, Inches : 0 Inch(Converted to: 0 ft 0 Inch, 0.00 cm) Clinical Height : 152.4 cm Weight Source : Standing scale Weight Entry Format : [place] Clinical Dosing Weight : 69.09 kg Weight, Pounds : 152 lb Body Surface Area (BSA) : 1.66 m2 Body Mass Index : 29.7 kg/m2 (HI) Rozel Body Weight : 45 kg PIAAZUCENA 05/19/2021 12:51 EST Health Histories Smoking Status : 5-9 cigarettes (between 1/4 to 1/2 pack)/day in last 30 days Smokeless Tobacco Status : Never Desires Tobacco Cessation Medication : No Reason for No Tobacco Cessation Medication : Refuses FDA approved medications AZUCENA PALACIO 05/19/2021 12:51 EST Social History (As Of: 05/19/2021 12:55:56 EST) Infectious Disease History Does patient have symptoms of COVID-19? : No Has the Patient Been Tested for COVID-19 in the last 14 days? : Yes, Patient stated results Negative Does the Patient state known exposure to a COVID-19 positive case in the last 14 days? : No Patient Vaccinated for COVID-19 : Fully vaccinated AZUCENA PALACIO 05/19/2021 12:51 EST Infectious Disease Risk Screening Grid Cough < 2 wks of unknown origin : NO Cough > 2 weeks : NO Blood in Sputum : NO Fever or self-reported Fever : NO Rash of unknown origin : NO Headache : NO Stiff neck : NO Night Sweats : NO Unexplained Weight Loss : NO Diarrhea (3 episode per day) : NO AZUCENA PALACIO 05/19/2021 12:51 EST Physical contact outside [place] in the last 30 days : No Hospitalized in Foreign Country : No Infectious Disease History : None INF Disease TB Screening Calc : 0 INF Disease Recent Travel Calc : 0 AZUCENA PALACIO 05/19/2021 12:51 EST COVID19 PreProcedure Screening Is this an Emergent or Add on Procedure? : No Date PreProcedure COVID-19 test known? : Yes Date of PreProcedure COVID-19 : 05/16/2021 EST Has patient been isolated since the test : No Exposed to COVID19 symptoms since test? : No AZUCENA PALACIO 05/19/2021 12:51 EST Anesthesia/Transfusion History Family History of Anesthesia Reaction : No prior transfusion(s) Blood Transfusion Acceptable to Patient : Yes Transfusion History : Prior anesthesia reaction Type of Anesthesia Reaction : Excessive somnolence Family History of Anesthesia Reaction : None [facility]/19[facility]20[facility] 12:51 EST Advance Directive Patient has Advance Directive *Q : No, patient refuses Advance Directive information [facility] 05/19/2021 12:51 EST [place] Suicide Severity Rating Scale (C-SSRS) CSSRS Past Month Wish to be : No CSSRS Past Month Suicidal Thoughts : No CSSRS Lifetime Suicide Behavior : No Suicide Severity Rating Score : 0 Suicide Severity Rating : No Additional Care Required at this time AZUCENA PALACIO 05/19/2021 12:51 EST Psychosocial History Currently in Unsafe Situation : No [facility] 05/19/2021 12:51 EST General Info Support Person/Pt Rep Contact Information : LUDWIN FOOTE [phone] STEP MOM Want Family/Rep/Phys Notified of Admit : No Communication Barrier : None [facility] 05/19/2021 12:51 EST Larry Scale Larry Sensory Perception : Slightly limited Larry Moisture : Rarely moist Larry Activity : Walks occasionally Larry Mobility : Slightly limited Larry Nutrition : Adequate Larry Friction and Shear : Potential problem Larry Score : 18 [facility] 05/19/2021 12:51 EST Sleep Apnea Risk Assmt BiPAP/CPAP Ordered for Home Use : Yes Hx of Obstructive Sleep Apnea Diagnosis : Yes BiPAP/CPAP Used at Home : No Reason BiPAP/CPAP Not Used at Home : DIDN'T DO NO GOOD Age over 50 Years Old : Yes Gender Male : No AZUCENA PALACIO 05/19/2021 12:51 EST Pain Scale Intensity : 0 [facility] 05/19/2021 12:51 EST Image 4 - Images currently included in the form version of this document have not been included in the text rendition version of the form. documented in this encounter Plan of Treatment Not on file documented as of this encounter Visit Diagnoses Not on filedocumented in this encounter Care Teams Nuclear Weapons Mechanical Specialist Relationship Specialty Start Date End Date Sandra Orozco, REGISTER CLERK [address] [place] [address] PCP - General Nurse Practitioner 01/24/22 documented as of this encounter
--- OUTSIDE RECORDS SUMMARY | 2024-08-18 08:28 | XMS_ITS | Encounter Summary ---
Author Organization [facility] In [facility]atives Address [address] [place] [address] Care Team Providers Care Solid Waste Engineer Name Role Phone Gladis Orozco APRN Primary Care Provider Encounter Details Date Type Department Care Team (Late st Contact Info) Description 05/19/2021 Transcribed Document [facility] Family Medicine [address] [place] [address] ProviderAide MD [address] [place] [address] Social History Tobacco Use Types Packs/Day Years Used Date Smoking Tobacco: Never Assessed Comments Unknown Sex and Gender Information Value Date Recorded Sex Assigned at Not on file Legal Sex Female 2:35 PM CDT Gender Identity Not on file Sexual Orientation Not on file documented as of this encounter Miscellaneous Notes * Cerner Conversion Note - Aide ProviderMD - 05/19/2021 12:58 PM SHIRT SEWER [address] [address] CASI GRECO :1960 Visit Time:05/19/2021 Your Visit Summary Your Care Team Admitting Physician - GERMÁN BERTRAND MD-CAR Attending Physician - GERMÁN BERTRAND MD-VIV Primary Care Physician - GLADIS OROZCO APRN-FAM Referring Physician - GERMÁN BERTRAND MD-CAR These Are Your Goals No qualifying data available. Discharge Vitals Temperature 36.4 ??C Respiratory Rate 18 Blood Pressure 127/63 What to do next Instructions From Your Care Team Diet after Discharge: Resume usual diet as tolerated, _, _ Activity after Discharge: _, Rest and relax today, No strenuous activity Lifting Restrictions: No heavy lifting over 10 pounds Driving after Discharge: Do not drive until 24 hours after no longer taking pain medications Showering/Bathing: _, No tub bathing, soaking or swimming. Keep site completely dry for 24 hours. Notify Provider of: New/worsening symptoms Wound/Incision Care after Discharge: Keep operative site/wound site clean and dry, Change dressing with dry dressing daily and as needed. Follow-Up Appointments Follow Up with GERMÁN BERTRAND MD-CAR When Within As needed Comments Follow-up as instructed Follow-up as instructed Where: [place] [address] [place] [address]- Medications What How Much When Instructions Next Dose acetaminophen-hydrocodone (acetaminophen-HYDROcodone 325 mg-10 mg oral tablet) 1 Tablet(s) Oral Every 6 Hours as needed for for pain WHEN DUE acyclovir (acyclovir 800 mg oral tablet) 1 Tablet(s) Oral Two Times A Day WHEN DUE bisoprolol (bisoprolol 5 mg oral tablet) 1 Tablet(s) Oral Every Day WHEN DUE levocetirizine (levocetirizine 5 mg oral tablet) 1 Tablet(s) Oral Every Evening WHEN DUE montelukast (montelukast 10 mg oral tablet) WHEN DUE rivaroxaban (Xarelto 15 mg oral tablet) 1 Tablet(s) Oral Every Evening WHEN DUE simvastatin (simvastatin 40 mg oral tablet) 1 Tablet(s) Oral At Bedtime WHEN DUE spironolactone (spironolactone 25 mg oral tablet) 1 Tablet(s) Oral Every Day WHEN DUE tiZANidine (tiZANidine 2 mg oral tablet) 1 Tablet(s) Oral Two Times A Day WHEN DUE venlafaxine (venlafaxine 150 mg oral capsule, extended release) WHEN DUE Take your medications faithfully. Do NOT skip medication. Do NOT stop taking medications without the direction of a physician. Carry a list of your medications with you at all times, and take this medication list with you to your first follow up visit. Report any side effects. Avoid herbal remedies unless discussed with your physician. As part of your treatment plan, your physician may have prescribed a limited course of a controlled substance. This medication may be given to help people with moderate or severe pain or for other medical conditions, but there are risks involved with treatment. Common side effects may include nausea, constipation, drowsiness, sweating, itching, dry mouth, and rash. More serious side effects may include cognitive and motor impairment, like problems with thinking, concentrating, alertness, and movement (e.g. slowed reflexes), and driving and operating heavy machinery can be dangerous. It is important for you to talk to your physician if you have these side effects or questions. These controlled substances can produce physical dependence and be habit-forming if taken for an extended period of time, which means that the body has gotten used to them and may experience withdrawal symptoms if they are abruptly stopped. Withdrawal symptoms can include runny nose, sweating, goose bumps, diarrhea, abdominal cramping, rapid heartbeat, difficulty sleeping, and nervousness. Please dispose of unused and medications per your retail pharmacy guidance. Allergies CeleBREX Levaquin Macrobid Naprosyn Omnicef dexamethasone (Shakes) gabapentin leflunomide nortriptyline penicillin Immunizations This Visit No Immunizations Found Education Materials Heart-Healthy Eating Plan Heart-healthy meal planning includes: ??? Eating less unhealthy fats. ??? Eating more healthy fats. ??? Making other changes in your diet. Talk with your doctor or a diet specialist (dietitian) to create an eating plan that is right for you. What is my plan? Your doctor may recommend an eating plan that includes: ??? Total fat: % or less of total calories a day. ??? Saturated fat: % or less of total calories a day. ??? Cholesterol: less than mg a day. What are tips for following this plan? Cooking Avoid frying your food. Try to bake, boil, grill, or broil it instead. You can also reduce fat by: ??? Removing the skin from poultry. ??? Removing all visible fats from meats. ??? Steaming vegetables in water or broth. Meal planning ??? At meals, divide your plate into four equal parts: ? Fill one-half of your plate with vegetables and green salads. ? Fill one-fourth of your plate with whole grains. ? Fill one-fourth of your plate with lean protein foods. ??? Eat 4???5 servings of vegetables per day. A serving of vegetables is: ? 1 cup of raw or cooked vegetables. ? 2 cups of raw leafy greens. ??? Eat 4???5 servings of fruit per day. A serving of fruit is: ? 1 medium whole fruit. ? ?? cup of dried fruit. ? ?? cup of fresh, frozen, or canned fruit. ? ?? cup of 100% fruit juice. ??? Eat more foods that have soluble fiber. These are apples, broccoli, carrots, beans, peas, and barley. Try to get 20???30 g of fiber per day. ??? Eat 4???5 servings of nuts, legumes, and seeds per week: ? 1 serving of dried beans or legumes equals ?? cup after being cooked. ? 1 serving of nuts is ?? cup. ? 1 serving of seeds equals 1 tablespoon. General information ??? Eat more home-cooked food. Eat less restaurant, buffet, and fast food. ??? Limit or avoid alcohol. ??? Limit foods that are high in starch and sugar. ??? Avoid fried foods. ??? Lose weight if you are overweight. ??? Keep track of how much salt (sodium) you eat. This is important if you have high blood pressure. Ask your doctor to tell you more about this. ??? Try to add vegetarian meals each week. Fats ??? Choose healthy fats. These include olive oil and canola oil, flaxseeds, walnuts, almonds, and seeds. ??? Eat more omega-3 fats. These include salmon, mackerel, sardines, tuna, flaxseed oil, and ground flaxseeds. Try to eat fish at least 2 times each week. ??? Check food labels. Avoid foods with trans fats or high amounts of saturated fat. ??? Limit saturated fats. ? These are often found in animal products, such as meats, butter, and cream. ? These are also found in plant foods, such as palm oil, palm kernel oil, and coconut oil. ??? Avoid foods with partially hydrogenated oils in them. These have trans fats. Examples are stick margarine, some tub margarines, cookies, crackers, and other baked goods. What foods can I eat? Fruits All fresh, canned (in natural juice), or frozen fruits. Vegetables Fresh or frozen vegetables (raw, steamed, roasted, or grilled). Green salads. Grains Most grains. Choose whole wheat and whole grains most of the time. Rice and pasta, including brown rice and pastas made with whole wheat. Meats and other proteins Lean, well-trimmed beef, veal, pork, and graves. Chicken and turkey without skin. All fish and shellfish. Wild duck, rabbit, pheasant, and venison. Egg whites or low-cholesterol egg substitutes. Dried beans, peas, lentils, and tofu. Seeds and most nuts. Dairy Low-fat or nonfat cheeses, including ricotta and mozzarella. Skim or 1% milk that is liquid, powdered, or evaporated. Buttermilk that is made with low-fat milk. Nonfat or low-fat yogurt. Fats and oils Non-hydrogenated (trans-free) margarines. Vegetable oils, including soybean, sesame, sunflower, olive, peanut, safflower, corn, canola, and cottonseed. Salad dressings or mayonnaise made with a vegetable oil. Beverages Mineral water. Coffee and tea. Diet carbonated beverages. Sweets and desserts Sherbet, gelatin, and fruit ice. Small amounts of dark chocolate. Limit all sweets and desserts. Seasonings and condiments All seasonings and condiments. The items listed above may not be a complete list of foods and drinks you can eat. Contact a dietitian for more options. What foods should I avoid? Fruits Canned fruit in heavy syrup. Fruit in cream or butter sauce. Fried fruit. Limit coconut. Vegetables Vegetables cooked in cheese, cream, or butter sauce. Fried vegetables. Grains Breads that are made with saturated or trans fats, oils, or whole milk. Croissants. Sweet rolls. Donuts. High-fat crackers, such as cheese crackers. Meats and other proteins Fatty meats, such as hot dogs, ribs, sausage, virk, rib-eye roast or steak. High-fat deli meats, such as salami and bologna. Caviar. Domestic duck and goose. Organ meats, such as liver. Dairy Cream, sour cream, cream cheese, and creamed cottage cheese. Whole-milk cheeses. Whole or 2% milk that is liquid, evaporated, or condensed. Whole buttermilk. Cream sauce or high-fat cheese sauce. Yogurt that is made from whole milk. Fats and oils Meat fat, or shortening. [place] butter, hydrogenated oils, palm oil, coconut oil, palm kernel oil. Solid fats and shortenings, including virk fat, salt pork, lard, and butter. Nondairy cream substitutes. Salad dressings with cheese or sour cream. Beverages Regular sodas and juice drinks with added sugar. Sweets and desserts Frosting. Pudding. Cookies. Cakes. Pies. Milk chocolate or white chocolate. Buttered syrups. Full-fat ice cream or ice cream drinks. The items listed above may not be a complete list of foods and drinks to avoid. Contact a dietitian for more information. Summary ??? Heart-healthy meal planning includes eating less unhealthy fats, eating more healthy fats, and making other changes in your diet. ??? Eat a balanced diet. This includes fruits and vegetables, low-fat or nonfat dairy, lean protein, nuts and legumes, whole grains, and heart-healthy oils and fats. This information is not intended to replace advice given to you by your health care provider. Make sure you discuss any questions you have with your health care provider. Document Revised: 05/01/2018 Document Reviewed: 04/04/2018 [employer] Patient Education ?? 2020 [employer] It???s Cold and Flu Season ??? How are you protecting yourself? The start of each year is often met with the peak of cold and flu season. This year is no different except that we are facing the new strain of coronavirus, COVID-19, and the widespread media attention this public health outbreak is causing. It is understandable that many are feeling overwhelmed by the thought of catching coronavirus and are concerned about how to best care for ourselves and our loved ones during this challenging time. Take comfort in knowing there are simple things you can do each and every day to help ensure your health is protected. Scrub a dub! Wash your hands! As simple as this sounds, it truly is the most effective way to stop the spread of germs. Be sure to use soap, and to make sure you are being thorough enough, sing the ???Happy Birthday?? song which is just the right length to ensure a thorough cleaning of your hands. Wash all parts of your hands, including the ???webs?? between your fingers and thumbs. When without, use a squeeze! If you are unable to get to a sink for soap and water to thoroughly wash your hands, use hand special needs caregiver. While handwashing is best, hand special needs caregiver helps to reduce the spread of germs when you are out and about. Have hand special needs caregiver in several locations so you can always have some on hand ??? think about placing some bottles in your car, your purse, your suitcase, the diaper bag, or even in your coat pocket. Don???t rub, don???t touch! As tempting as it is to rub those scratchy eyes during allergy season or to rub a runny nose, don???t. In fact, if you can, try to avoid touching your face as much as possible, especially with unclean hands. Our eyes, nose, and mouth are easy access points for germs to enter our bodies. When in doubt, don???t go out! If you are feeling under the weather, stay home. If your child is feeling sick, keep them home. It is so important to not only rest when you are starting to get sick or are already under the weather, but also staying home and away from others helps to keep people from also getting sick. Don???t [place] It! Sneezing this time of year is part of life, especially if you suffer from allergies or do have the cold or flu. To help minimize the spread of germs from sneezing or coughing, use a Kleenex or your elbow to protect against rogue spray and to help keep your hands clean. And remember, most people will have a runny nose, coughs and sneezes these days either from seasonal allergies, the cold or the flu, but if you do feel ill or feel like you need some help to feel better, please contact your Primary Care Provider to determine the best course of treatment for you which may include home care for mild cases or making an appointment to be seen to address more moderate needs. To find a PCP near you, please visit HYPERLINK [email or web address]. May 15, 2019 Emergency Awareness and Preventative Care STROKE is an EMERGENCY Every Minute Counts Act FAST and Check for these signs: FACE Does the face look uneven? ARM Does one arm drift down? SPEECH Does their speech sound strange? TIME Call at any sign of stroke Stroke Risk Factors Atrial Fibrillation (irregular heartbeat) Diabetes Family history of stroke Heart Disease Heavy alcohol use High Blood Pressure High Cholesterol Physical inactivity and obesity Smoking Cigarette Smoking The facts are clear, cigarette smoking will shorten your life. Smoking can cause many illnesses along the way. As a healthcare provider, we recommend that you stop smoking. Assistance with quitting is available by contacting 5-744-YRJP-NOW. This is a free resource providing counseling, support, and referral. Or you may contact your personal physician. National Suicide Prevention Lifeline: The National Suicide Prevention Lifeline is a national network of local crisis centers that provides free and confidential emotional support to people in suicidal crisis or emotional distress 24 hours a day, 7 days a week. Don't Wait! Stop a Heart Attack Before it Starts What is a heart attack? A heart attack is damage or to a part of the heart from severely decreased or lack of blood flow to the heart. Over time, arteries can become narrow from the buildup of fat and cholesterol, which is called plaque. The plaque can rupture causing a blood clot to form. When the blood clot forms, the artery can become severely narrowed or completely blocked, causing a heart attack. Heart attack is the leading cause of in the [place]. 85% of muscle damage occurs within the first 2 hours. Delay in the recognition of heart attack symptoms increases the chances of . Know the early symptoms of a heart attack: Nausea Feeling of fullness in chest Jaw Pain Pain that travels down one or both arms Fatigue/being tired Anxiety Back Pain Chest pressure, squeezing, or discomfort Shortness of breath Sweating, or a cold sweat Feeling of impending doom There are unusual signs of a heart attack, too! Women, the elderly, and diabetics may present with atypical symptoms: Fainting/dizziness Weakness Confusion Risk Factors for a Heart Attack Some heart disease risk factors, such as age and family history, cannot be changed. Others, like smoking and lack of exercise, can be changed. Smoking High Cholesterol High Blood Pressure Family History Obesity Age Gender (Males are at higher risk) Lack of Exercise Diabetes Diet Stress Excessive Alcohol Intake If you or someone you know is experiencing the signs and symptoms of a heart attack, DON???T DELAY. Call immediately and seek help. If someone collapses, perform CPR! Do not attempt to drive if you are having symptoms of heart attack. Hands-Only CPR Why Hands-Only CPR? Hands-Only CPR has been shown to be as effective as conventional CPR for cardiac arrests that occur outside of a hospital. Survival depends on immediately receiving CPR from someone nearby. How do you perform Hands-Only CPR? There are two easy steps: Call if you see a teen or adult collapse Push hard and fast in the center of the chest at a beat of 100 beats per minute. Save a life! 4 WAYS TO GET AHEAD OF SEPSIS SEPSIS is a MEDICAL EMERGENCY. Time matters! Infections put you and your family at risk for a life-threatening condition called sepsis. Sepsis is the body's extreme response to an infection. It is life-threatening, and without timely treatment, sepsis can rapidly lead to tissue damage, organ failure, and . Sepsis happens when an infection you already have-in your skin, lungs, urinary tract or somewhere else-triggers a chain reaction throughout your body. 1 PREVENT INFECTIONS Take good care of chronic conditions. Talk to your doctor about getting the recommended vaccines. 2 PRACTICE GOOD HYGIENE Wash your hands frequently. Keep cuts or open sores clean and covered until they are healed. 3 KNOW THE SYMPTOMS Confusion or disorientation Shortness of breath High heart rate Fever, shivering, or feeling very cold Extreme pain or discomfort Clammy or sweaty skin 4 ACT FAST Get medical care IMMEDIATELY if you suspect sepsis or if you have an infection that is not getting better or is getting worse. To learn more about sepsis and how to prevent infections, visit www.cdc.gov/sepsis. Test Results Laboratory or Other Results This Visit (last charted value for your 05/19/2021 visit) No Laboratory or Other Results This Visit Patient Name:CASI GRECO I have received and understand this information and was given the opportunity to ask questions. Patient/Sales Team Member Name: Patient/Sales Team Member Signature: Relationship to Patient: Clinician/Hospital Sales Team Member Signature: Date: documented in this encounter Plan of Treatment Not on file documented as of this encounter Visit Diagnoses Not on filedocumented in this encounter Care Teams Solid Waste Engineer Relationship Specialty Start Date End Date Gladis Orozco, SECURITY GUARD DISPATCHER [address] [address] PCP - General Nurse Practitioner 01/24/22 documented as of this encounter
--- OUTSIDE RECORDS SUMMARY | 2024-08-18 08:28 | XMS_ITS | Encounter Summary ---
Author Organization [facility] Address [address] [place] [address] Care Team Providers Care Thread Dresser Name Role Phone Sandra Orozco APRN Primary Care Provider Encounter Details Date Type Department Care Team (Late st Contact Info) Description 05/19/2021 Transcribed Document [facility] Family Medicine [address] [place] [address] ProviderAide MD [address] [place] [address] Social History Tobacco Use Types Packs/Day Years Used Date Smoking Tobacco: Never Assessed Comments Unknown Sex and Gender Information Value Date Recorded Sex Assigned at Not on file Legal Sex Female 2:35 PM CDT Gender Identity Not on file Sexual Orientation Not on file documented as of this encounter Miscellaneous Notes * Cerner Conversion Note - Historical ProviderMD - 05/19/2021 12:57 PM RIVET TESTER Stroke/Warfarin Instructions Entered On: 05/19/2021 12:57 EST Performed On: 05/19/2021 12:57 EST by AZUCENA PALACIO Stroke/Warfarin Instructions Stroke/TIA Discharge Ins : N/A Warfarin Discharge Ins : N/A AZUCENA PALACIO - 05/19/2021 12:57 EST Electronically signed by [facility] Conversion Police Manager Cerner at 06/27/2022 8:14 AM CDT documented in this encounter Plan of Treatment Not on file documented as of this encounter Visit Diagnoses Not on filedocumented in this encounter Care Teams Thread Dresser Relationship Specialty Start Date End Date Sandra Orozco, RUBEN [address] [id number] PCP - General Nurse Practitioner 01/24/22 documented as of this encounter
--- OUTSIDE RECORDS SUMMARY | 2024-08-18 08:28 | XMS_ITS | Encounter Summary ---
Author Organization [employer] [facility] Address [address] [place] [address] Care Team Providers Care Cow Rider Name Role Phone Sandra Orozco APRN Primary Care Provider Encounter Details Date Type Department Care Team (Late st Contact Info) Description 05/19/2021 Transcribed Document [facility] Family Medicine [address] [place] [address] ProviderAide MD [address] [place] [address] Social History Tobacco Use Types Packs/Day Years Used Date Smoking Tobacco: Never Assessed Comments Unknown Sex and Gender Information Value Date Recorded Sex Assigned at Not on file Legal Sex Female 2:35 PM CDT Gender Identity Not on file Sexual Orientation Not on file documented as of this encounter Miscellaneous Notes * Cerner Conversion Note - Historical ProviderMD - 05/19/2021 2:23 PM TRUCK DRIVER FLATBED DATE OF SERVICE: 05/19/2021 INDICATIONS: Palpitations, . PROCEDURE PERFORMED: Loop recorder explantation. DESCRIPTION OF PROCEDURE: Patient was brought to the cardiac catheterization laboratory in stable condition. The left parasternal area between the 1st and 4th ribs was prepped and draped in the usual sterile fashion and anesthetized with 1% Xylocaine solution. A small transverse skin incision was performed along intercostal space 2. Loop recorder was identified and explanted using a pair of forceps. The skin was apposed with 2.0 Vicryl sutures. Good hemostasis noted. No complications were noted. She was transferred to her room in stable condition. SUMMARY: Successful loop recorder explantation. PLAN: Follow up at our office in 1-2 weeks for suture removal and wound check. /[id number] Christy Kirk MD AE/AQ / AE / MODL /[id number] documented in this encounter Plan of Treatment Not on file documented as of this encounter Visit Diagnoses Not on filedocumented in this encounter Care Teams Cow Rider Relationship Specialty Start Date End Date Sandra Orozco, RUBEN [address] [address] PCP - General Nurse Practitioner 01/24/22 documented as of this encounter
--- OUTSIDE RECORDS SUMMARY | 2024-08-18 08:28 | XMS_ITS | Encounter Summary ---
Author Organization [employer] Address [address] [place] [address] Care Team Providers Care Medical Supply Technician Name Role Phone ErnestoSheriSandraagustin MIRANDA Primary Care Provider Encounter Details Date Type Department Care Team (Late st Contact Info) Description 03/01/2020 Transcribed Document [facility] [place] Family Medicine [facility] [place] [address] ProviderAide MD [address] [place] [address] [id number] Social History Tobacco Use Types Packs/Day Years Used Date Smoking Tobacco: Never Assessed Comments Unknown Sex and Gender Information Value Date Recorded Sex Assigned at Not on file Legal Sex Female 2:35 PM CDT Gender Identity Not on file Sexual Orientation Not on file documented as of this encounter Miscellaneous Notes * Cerner Conversion Note - Aide Reed MD - 03/01/2020 11:34 AM WASTE REDUCTION COORDINATOR DATE OF PROCEDURE: 03/01/2020 SURGEON: Noemi Mayfield MD, JELANI Pain Certified PROCEDURE: Lumbar epidural steroid injection LEVEL: L4-5. SEDATION: We did not give any sedation. PREPROCEDURE PAIN LEVEL: 8/10 to 9/10. POSTPROCEDURE PAIN LEVEL: 6/10 DIAGNOSIS: Lumbosacral radiculopathy. PROCEDURE SUMMARY: After explaining the risks and benefits of the procedure, an informed consent was obtained. The patient was transferred to the procedure room and placed on the table in the prone position. Noninvasive monitors were applied by the procedural room nurse and monitored per standard protocol. Prior to beginning the procedure, a timeout was performed. The lumbar area was then prepped and draped in sterile fashion. The skin and tissues overlying the specific target levels were anesthetized with 1% lidocaine mixed with bicarbonate, using a 25-guage needle. An 18-gauge Tuohy needle was advanced by the [id number] technique under direct fluoroscopic guidance into the posterior epidural space without difficulties. Aspiration was negative for blood and/or CSF. The epidural needle position was confirmed in the lateral view and also with injection of 2 mL of Isovue which showed good cephalad and caudad spread in the epidural space. Intravascular and intrathecal injection was excluded. There was no paresthesia during needle placement. A total of 10 mL of volume was injected containing 80 mg of Depo-Medrol and 1 mL of bupivacaine 0.25%. The remaining volume includes preservative free normal saline. The needle was then withdrawn and a dressing was used to cover the injection site. The patient tolerated the procedure well and without incident. Upon completion of the procedure, the patient was transferred to the recovery area in stable condition. The patient was monitored per protocol and discharged from the clinic neurologically intact and with appropriate discharge instructions. The patient has been instructed to contact my office with any questions or difficulties. Pre and post procedure pain levels are documented in the chart. Total fluoroscopy time is 10 seconds. The patient stopped the Xarelto 2 weeks before the procedure since she did not have a new prescription for that. I encouraged the patient to go back to her Xarelto and check with her family physician. I am going to see the patient after 1 month to re-evaluate her. The patient has been screened for symptoms or risk factors related to COVID-19 both prior to arrival for the visit and upon arrival at the clinic for the visit today. No risk factors or symptoms are identified at today's visit and the patient has been afebrile. /[id number] Noemi Mayfield MD, JELANI Pain Certified DELILAH/ANTHONY / KR / MODL /[id number] documented in this encounter Plan of Treatment Not on file documented as of this encounter Visit Diagnoses Not on filedocumented in this encounter Care Teams Medical Supply Technician Relationship Specialty Start Date End Date Sandra Orozco, HYDRAULIC LIFT DRIVER [address] [id number] PCP - General Nurse Practitioner 01/24/22 documented as of this encounter
--- OUTSIDE RECORDS SUMMARY | 2024-08-18 08:28 | XMS_ITS | Encounter Summary ---
Author Organization [facility] Address [address] [place] [address] Care Team Providers Care Income Tax Investigator Name Role Phone Sandra Orozco APRN Primary Care Provider Encounter Details Date Type Department Care Team (Late st Contact Info) Description 01/25/2020 Transcribed Document [facility] [place] [address] [place] [address] ProviderAide MD [address] [place] [address] [id number] Social History Tobacco Use Types Packs/Day Years Used Date Smoking Tobacco: Never Assessed Comments Unknown Sex and Gender Information Value Date Recorded Sex Assigned at Not on file Legal Sex Female 2:35 PM CDT Gender Identity Not on file Sexual Orientation Not on file documented as of this encounter Miscellaneous Notes * Cerner Conversion Note - Historical MD Derek - 01/25/2020 6:55 AM UPHOLSTERY BUNDLER DATE OF ADMISSION: 01/22/2020 HISTORY OF PRESENT ILLNESS: This is a 59-year-old female with a chief complaint of chronic lower back pain radiating to both lower extremities for several years' duration, became worse for the last 3 to 4 years. The patient described her pain as a constant combination of burning, stabbing, spasming, stinging, aching, tender, throbbing, sharp pain, localized in lower back, radiated to both lower extremities all the way down to the right more than the left lower extremity. Her pain is associated with tingling and numbness on the left side more than the right as well as she noticed some discoloration of the lower extremities and sometimes burning as a hot poker. She had also symptoms related to neuropathy as well as restless legs syndrome and weakness. Her average pain 8/10, and this pain affects her general activity and enjoyment of life on the scale 8/10. The patient also gave symptoms related to neurogenic claudication that she cannot stand or walk more than 5 to 10 minutes, and she has to sit down or bend over to relieve the pressure of her back. Her pain increased by coughing, sitting, bending forward, bending backwards, climbing stairs, lifting, driving, walking, laying, twisting. The pain decreased by applying ice and heat, physical therapy, exercise, [id number] medication, bed rest going to Pain Clinic, have an injection with steroid. The patient mentioned that she had her pain since the 80s. She used to go to the chiropractor and she has some adjustment that felt better. The last 3 years she had a problem with hardly walking. She saw Dr. Rosales, who did injection to her back that gave her some help. This spring, the pain started getting worse and she could not get out of bed. She saw her family physician, Ernesto Monique, who referred her to Dr. Emeka Fernández. Dr. Emeka Fernández referred her to our clinic to see if interventional treatment can give the patient more help and relief. The patient also recently had a bronchial and sinus infection and she had the recent injection to her shoulder with cortisone. PHYSICAL EXAMINATION: The patient is alert, oriented to people, time, place. Patient has mild to moderate pain behavior and discomfort. The rest of physical examination including HEENT, heart, lungs and abdomen were unremarkable. Directed physical examination: The patient has left antalgic gait. She has difficulty walking heel more than toes. Flexion and extension of the trunk are moderately limited causing more pain in the extension compared to flexion. Palpation of her back revealed tenderness on bilateral lumbosacral facet area with facet loading. NEUROLOGICAL: Cranial nerves 2 to 12 were unremarkable. Motors 5/5 bilateral symmetrical in the upper and lower extremities. Straight leg raise negative bilaterally. Sensory decreased on the left lower extremity more than the right, could be consistent with L4-L5 distribution and deep tendon reflex +3/4 bilateral symmetrical in the knee, +2/4 bilateral symmetrical in the ankles. The nurse's note and MOHSEN were reviewed and evaluated. We did chronic pain psychology evaluation in our clinic with SOVICTORIA-R, which is documented in the chart. I did not have any MRI images at the time of the visit. ASSESSMENT: 1. Chronic lower back pain secondary to degenerative joint disease and degenerative disk disease to the lumbosacral spine. 2. Lumbosacral radiculopathy. 3. History of spinal stenosis. 4. Lumbosacral spondylosis. 5. The patient on long-term blood thinner related to heart disease. PLAN: 1. I had a lengthy discussion with the patient in regard to her condition. I am going to get the MRI report to evaluate the patient; however, I agree. 2. with Dr. Emeka Fernández that most of her symptoms correlated with lumbosacral radiculopathy, could be consistent with L4-L5 distribution. I am going to schedule her for lumbar epidural steroid injection targeting that area to give the patient more help and relief after I evaluate her MRI. 3. The patient currently on Xarelto. I am going to contact her primary physician and her matte cutter to see if we can hold the Xarelto 3 days before the procedure. 4. Once we get the patient some help and relief, we will start her on intense physical therapy to improve the range of movement of back and lower extremities; however, if the patient does not show any improvement, I will advice her to continue follow up with the neurosurgeon, Dr. Fernández. Thank you for letting me participate in the management of this patient. I will keep you informed of this patient's progress. If you have any questions or you need further information, please do not hesitate to contact our clinic. The patient has been screened for symptoms or risk factors related to COVID-19 both prior to arrival for the visit and upon arrival at the clinic for the visit today. No risk factors or symptoms are identified at today's visit and the patient has been afebrile. /[id number] Noemi Mayfield MD, JELANI Pain Certified KR/AQ / KR / MODL CC: MD Sandra Valero APRN Electronically signed by [facility] Conversion Survey Engineer Cerner at 06/27/2022 8:04 AM CDT documented in this encounter Plan of Treatment Not on file documented as of this encounter Visit Diagnoses Not on filedocumented in this encounter Care Teams Income Tax Investigator Relationship Specialty Start Date End Date Sandra Orozco APRN [address] [address] PCP - General Nurse Practitioner 01/24/22 documented as of this encounter
--- OUTSIDE RECORDS SUMMARY | 2024-08-18 08:28 | XMS_ITS | Encounter Summary ---
Author Organization [facility] Address [address] [place] [address] Care Team Providers Care Dobby Looms Pegger Name Role Phone Sandra Orozco APRN Primary Care Provider Encounter Details Date Type Department Care Team (Late st Contact Info) Description 05/19/2021 Transcribed Document [facility] [place] Family Medicine [address] [place] [address] ProviderAide MD [address] [place] [id number] Social History Tobacco Use Types Packs/Day Years Used Date Smoking Tobacco: Never Assessed Comments Unknown Sex and Gender Information Value Date Recorded Sex Assigned at Not on file Legal Sex Female 2:35 PM CDT Gender Identity Not on file Sexual Orientation Not on file documented as of this encounter Miscellaneous Notes * Cerner Conversion Note - Historical ProviderMD - 05/19/2021 12:56 PM EDITORIAL WRITER Patient Education Materials Follows: It???s Cold and Flu Season ??? How [...] to thoroughly wash your hands, use hand manager cosmetic. While handwashing is best, hand manager cosmetic helps to reduce the spread of germs when you are out and about. Have hand manager cosmetic in several locations so you can always [...] keep people from also getting sick. Don???t [place] It! Sneezing this time of year is [...] a PCP near you, please visit [facility]PER[facility] [email or web address]. May 15, 2019 Nutrition Heart-Healthy Eating Plan Heart-healthy meal planning includes: [...] plate with lean protein foods. ??? Eat 4?5 servings of vegetables per day. A serving of vegetables is: ? 1 cup of raw or cooked vegetables. ? 2 cups of raw leafy greens. ??? Eat 4?5 servings of fruit per day. A serving of fruit is: ? 1 medium whole fruit. ? ? cup of dried fruit. ? ? cup of fresh, frozen, or canned fruit. ? ? cup of 100% fruit juice. ??? Eat more foods that have soluble fiber. These are apples, broccoli, carrots, beans, peas, and barley. Try to get 20?30 g of fiber per day. ??? Eat 4?5 servings of nuts, legumes, and seeds per week: ? 1 serving of dried beans or legumes equals ? cup after being cooked. ? 1 serving of nuts is ? cup. ? 1 serving of seeds equals [...] Fats and oils Meat fat, or shortening. [place] butter, hydrogenated oils, palm oil, coconut oil, [...] provider. Document Revised: 05/01/2018 Document Reviewed: 04/04/2018 [employer] Patient Education ? 2020 [employer]. documented in this encounter Plan of Treatment Not on file documented as of this encounter Visit Diagnoses Not on filedocumented in this encounter Care Teams Dobby Looms Pegger Relationship Specialty Start Date End Date Sandra Orozco APRN [address] [address] PCP - General Nurse Practitioner 01/24/22 documented as of this encounter
--- OUTSIDE RECORDS SUMMARY | 2024-08-18 08:29 | XMS_ITS | Clinical Summary ---
Author Organization [employer] [facility] [employer] Address [address] [place] [address] Care Team Providers Care Porcelain Enamel Sprayer Name Role Phone OrozcoKrystenrafael MIRANDA Primary Care Provider Allergies Active Allergy Reactions Criticality Noted Date Comments Cefdinir Itching High 01/24/2022 Celecoxib Other (See Comments) High 05/01/2011 GI BLEED Ciprofloxacin Itching High 05/01/2011 Dexamethasone Other (See Comments) High 01/24/2022 SHAKES REALLY BAD Gabapentin Swelling High 01/24/2022 LEG SWELLING Leflunomide Other (See Comments) High 01/24/2022 REALLY BAD SORE THROAT, TINGLING IN HANDS, FELT LIKE THROAT WAS CLOSING UP Levofloxacin Anxiety High 05/01/2011 SHAKES, CLIMBS AVERY, CANNOT SLEEP Naproxen Other (See Comments) High 01/24/2022 SORE THROAT, HANDS TINGLING, FELT LIKE THROAT WAS CLOSING UP Nitrofurantoin Monohyd/M-Cryst Hives,Itching High 05/01/2011 Nortriptyline Other (See Comments) High 01/24/2022 SWELLING, TROUBLE TALKING, CRAMPS & WEAKNESS Penicillins Hives,Itching High 01/24/2022 Medications levocetirizine (XYZAL) 5 MG tablet Take 5 mg by mouth every evening. 2 Active venlafaxine (EFFEXOR-XR) 150 MG 24 hr capsule Take 300 mg by mouth daily. 2 Active pramipexole (MIRAPEX) 1.5 MG tablet Take 1.5 mg by mouth 2 (two) times daily. 2 Active montelukast (SINGULAIR) 10 mg tablet Take 10 mg by mouth every evening. 2 Active spironolactone (ALDACTONE) 25 MG tablet Take 25 mg by mouth daily. 2 Active bisoprolol (ZEBETA) 5 MG tablet Take 5 mg by mouth daily. 2 Active Xarelto 15 mg tablet Take 1 tablet (15 mg total) by mouth daily. 2 Active fluconazole (DIFLUCAN) 200 MG tablet Take 200 mg by mouth daily as needed. Active albuterol HFA (VENTOLIN HFA) 90 mcg/actuation inhaler Inhale 2 puffs by mouth via inhaler every 6 (six) hours as needed for wheezing or shortness of breath. 2 Active mupirocin (BACTROBAN) ointment Apply 1 application topically nightly. 2 Active dicyclomine (BENTYL) 20 mg tablet Take 10 mg by mouth every 6 (six) hours if needed. Active bumetanide (BUMEX) 1 MG tablet Take 1 tablet (1 mg total) by mouth daily as needed (swelling). Active potassium chloride (KLOR-CON-M) 10 MEQ CR tablet Take 1 tablet (10 mEq total) by mouth daily as needed (with bumetanide). Active dexlansoprazole (Dexilant) 30 mg delayed release capsule Take 1 capsule (30 mg total) by mouth daily. Active Active Problems Problem Noted Date Diagnosed Date Closed compression fracture of body of L1 verteb ra 10/13/2023 Lumbar stenosis with neurogenic claudication Acid reflux 01/24/2022 COPD (chronic obstructive pulmonary disease) Depression 01/24/2022 Fibromyalgia 01/24/2022 Herniated lumbar intervertebral disc 01/24/2022 History of obstructive sleep apnea 01/24/2022 IBS (irritable bowel syndrome) 01/24/2022 Meniere disease 01/24/2022 OCD (obsessive compulsive disorder) 01/24/2022 Rheumatoid arthritis 01/24/2022 RLS (restless legs syndrome) 01/24/2022 Sleep apnea 01/24/2022 TIA (transient ischemic attack) 01/24/2022 Spinal stenosis 01/05/2016 Tremor of unknown origin Stroke Overview (01/24/2022): TIA Slow to wake up after anesthesia Restless leg syndrome Mitral valve regurgitation Meniere's disease Fibromyalgia COPD (chronic obstructive pulmonary disease) Social History Tobacco Use Types Packs/Day Years Used Date Smoking Tobacco: Former Cigarettes 0.3 48 Smokeless Tobacco: Never Comments:Quit May 2023 Alcohol Use Standard Drinks/Week Comments Not Currently 0 (1 standard drink = 0.6 oz pur e alcohol) Humiliation, Afraid, Rape, and Kick questionnair e Answer Date Recorded Within the last year, have y ou been afraid of your partner or ex-partner? No 01/24/2022 Within the last year, have y ou been humiliated or emotionally abused in other ways by your partner or ex-partner? No Within the last year, have y ou been kicked, hit, slapped, or otherwise physically hurt by your partner or ex-partner? No 01/24/2022 Within the last year, have y ou been raped or forced to have any kind of sexual activity by your partner or ex-partner? No 01/24/2022 Utilities Answer Date Recorded In the past 12 months, has t he electric, gas, oil, or water company threatened to shut off services in your home? No 10/13/2023 Interpersonal Safety Answer Date Record ed How often does anyone, kaleb fine family and friends, physically hurt you? Never 10/13/2023 How often does anyone, kaleb fine family and friends, insult or talk down to you? Never 10/13/2023 How often does anyone, kaleb fine family and friends, threaten you with harm? Never 10/13/2023 How often does anyone, kaleb fine family and friends, scream or curse at you? Never 10/13/2023 Housing Stability Answer Date Recorded What is your living situation today? [facility] place to live 10/13/[address] you li ve. Do you have problems with any of the following? None of the above 10/13/2023 Food Insecurity Answer Date Recorded Within the past 12 months, y ou worried that your food would run out before you got money to buy more. Never true 10/13/2023 Within the past 12 months, t he food you bought just didn't last and you didn't have money to get more. Never true 10/13/2023 Transportation Needs Answer Date Record ed In the past 12 months, has l ack of reliable transportation kept you from medical appointments, meetings, work or from getting things needed for daily living? Yes 10/13/2023 Financial Resource Strain Answer Date R ecorded How hard is it for you to pa y for the very basics like food, housing, medical care, and heating? Would you say it is: Not hard at all 10/13/2023 Employment Answer Date Recorded Do you want help finding or keeping work or a job? I do not need or want help 10/13/2023 Family and Community Support Answer Rex e Recorded If for any reason you need h elp with day-to-day activities such as bathing, preparing meals, shopping, managing finances, etc., do you get the help you need? I don't need any help 10/13/2023 Feeling Lonely or Isolated 1 10/12 Educational Attainment Answer Date Carlos rded Do you speak a language other than [place] at [facility]? No 10/13/2023 Do you want help with school or training? For example, starting or completing job training or getting a high school diploma, GED or equivalent. No 10/13/2023 Physical Activity Answer Date Recorded Number of minutes of exercise per week 0 10/13/2023 Alcohol Use Answer Date Recorded 5 or More Drinks Per Day Past 12 Months 0 01/25/2024 Depression Answer Date Recorded Calculation of above two rows 6 Stress Answer Date Recorded Stress means a situation in which a person feels tense, restless, nervous, or anxious, or is unable to sleep at night because his or her mind is troubled all the time. Do you feel this kind of stress these days? Somewhat 10/13/2023 Disabilities Answer Date Recorded Because of a physical, menta l, or emotional condition, do you have serious difficulty concentrating, remembering, or making decisions? (5 years or older) Yes 10/13/2023 Because of a physical, menta l, or emotional condition, do you have difficulty doing errands alone such as visiting a doctor's office or shopping? (15 years or older) No 10/13/2023 Substance Use Answer Date Recorded How many times in the past y ear have you used prescription drugs for non-medical reasons? Never 10/13/2023 How many times in the past year have you used [place] legal drugs? Never 10/13/2023 Comments No Sex and Gender Information Value Date Recorded Sex Assigned at Not on file Legal Sex Female 2:35 PM CDT Gender Identity Not on file Sexual Orientation Not on file Last Filed Vital Signs Vital Sign Reading Time Taken Comments Blood Pressure 104/57 10/15/2023 11:57 AM EDT Pulse 81 10/15/2023 11:57 AM EDT Temperature 37.1 C (98.8 F) 10/15/2023 11:54 AM EDT Respiratory Rate 17 10/15/2023 11:54 AM EDT Oxygen Saturation 99% 10/15/2023 11:54 AM EDT Inhaled Oxygen Concentration - - Weight 83.9 kg (185 lb) 10/13/2023 2:00 AM EDT Height 152.4 cm (5') 10/12/2023 8:37 PM EDT Body Mass Index 36.13 10/12/2023 8:37 PM EDT Plan of Treatment Health Maintenance Due Date Last Done Comments Medicare Initial AWV G0438 CT Colonography 1958 Colonoscopy 1958 Colorectal Cancer Screening 1958 DXA SCAN 1958 FOBT/FIT 1958 Fit-DNA (Cologuard) 1958 Sigmoidoscopy 1958 Hepatitis C Screening 1976 Pneumococcal 50+ years (1 of 2 - PCV) 1977 Shingles Vaccine (Zoster) (1 of 2) 2008 Breast Cancer Screening 04/06/2017 04/06/2015 Respiratory Syncytial Virus (RSV) Adult or (1 - Risk 60-74 years 1-dose series) 2018 COVID-19 VACCINE ( season) 11/10/202302/2021, 06/16/2020 Falls Risk Screening 03/11/2024 Tobacco Cessation Counseling and Screening (12+) 10/13/2024 10/14/2023 Influenza Vaccine (Season Ended) 2024 02/23/20 DTAP/TDAP/TD VACCINES (4 - T d or Tdap) 11/09/2027 11/08/2017, 06/22/2009, 08/29/2001 Medical Devices Implanted Type Area Teacher Private Device Identifier Shelf Expiration Date Model / Serial / Lot Sealant Durasl Spine 5ml [id number] - [id number] Implanted:Qty: 1 on 01/31/2022 by Emeka Fernández MD at [facility] IMPLANTS N/A: Back [employer] 07/09/[id number] / / [id number] Cement Spinal Confidence 2839-10-000 - [id number] Implanted:Qty: 2 on 10/14/2023 at [facility] IMPLANTS N/A: Back J &J:DEPUY:DEPUY SPINE 06/08/2025 0 / / [id number] Insurance MEDICARE PART A B GENERIC COMMERCIAL Advance Directives For more information, please contact: [phone] Documents on File Type Date Recorded Patient Derrick Man Expl anation Advance Directives and Livin g Will 01/31/2022 8:44 AM * Full Code (Latest Code Status on File) Date Activated Date Inactivated Comments 10/12/2023 11:08 PM 10/15/2023 6:49 PM * Full Code Date Activated Date Inactivated Comments 01/31/2022 5:41 PM 02/01/2022 4:50 PM Healthcare Agents on File Name Relationship [facility] Luis Cruz Son First Alternate Healthcare Decision-Maker Care Teams Porcelain Enamel Sprayer Relationship Specialty Start Date End Date Sandra Orozco, CONFERENCE MANAGER [address] [place] [address] PCP - General Nurse Practitioner 01/24/22
--- OUTSIDE RECORDS SUMMARY | 2024-08-18 08:29 | XMS_ITS | Referral Summary ---
Author Organization [email or web address] Address [address] [place] [address] Care Team Providers Care Textile Supervisor Name Role Phone Orozco Sandra APRN Primary Care Provider [phone] Allergies Active Allergy Reactions Criticality Noted Date [...] your living situation today? [facility] 10/13/2023 Think about the [...] Do you speak a language other than [place] at [facility]? No 10/13/2023 Do you want help with [...] 10/12/2023 8:37 PM EDT Plan of Treatment Not on file Medical Devices Implanted Type Area Resort Desk Clerk Device Identifier Shelf Expiration Date Model / Serial / Lot Sealant Durasl Spine 5ml [id number] - [id number] Implanted:Qty: 1 on 01/31/2022 by Emeka Fernández MD at [facility] IMPLANTS N/A: Back [employer] 07/09/[id number] / / [id number] Cement Spinal Confidence 2839-10-000 - [id number] Implanted:Qty: 2 on 10/14/2023 at [facility] IMPLANTS N/A: Back J &J:DEPUY:DEPUY SPINE 06/08/2025 0 / / [id number] Insurance MEDICARE PART A B GENERIC COMMERCIAL Advance Directives For more information, please contact: [phone] Documents on File Type Date Recorded Patient Head Chopper Expl anation Advance Directives and Livin g Will 01/31/2022 8:44 AM * Full Code (Latest Code Status on File) Date Activated Date Inactivated Comments 10/12/2023 11:08 PM 10/15/2023 6:49 PM * Full Code Date Activated Date Inactivated Comments 01/31/2022 5:41 PM 02/01/2022 4:50 PM Healthcare Agents on File Name Relationship Healthcare Agent Relationshi p Communication Luis Cruz Son First Alternate Healthcare Decision-Maker Care Teams Textile Supervisor Relationship Specialty Start Date End Date Sandra Orozco APRN [address] [place] [address] PCP - General Nurse Practitioner 01/24/22
--- OUTSIDE RECORDS SUMMARY | 2024-08-18 08:29 | XMS_ITS | Data Portability ---
Author Organization [facility] Address [address] [place] [address] Care Team Providers Care Catering Barista Name Role Phone GLADIS DELCID Primary Care Provider Assessment Encounter Date Assessment Date Assessment LastModified by Organization Details LastModified Time 02/20/2024 02/20/2024 Plan: I have personally reviewed this patient's MOHSEN report as per [facility] board guidelines and it was found to be appropriate. Patient signed pain management agreement per clinic policy. The medication is or continues to be in the best interest of patient centered care. Schedule II, III or IV medications were provided for symptom or disease control. Risks and benefits of such medications were discussed with the patient. Labs: The pt was not sent for urine drug testing today. The pt is prescribed chronic pain medication. The confirmation of urine testing on 11/19/23 was positive for hydrocodone, norhydrocodone, and hydromorphone. Appears appropriate. Psychological Evaluation: The pt will be referred to the psychologist for evaluation of the chronic pain and risk assessment. The pt is aware of this. Physical Therapy/Activiti es/Exercise: (From initial ov: She states the last time she went to PT has been a good while. She does do a HEP most days. She does have a TENs unit but can't put it on.) Injections: (From previous ov: The pt states the injections have not helped her.) Medications: Will continue norco 5/325, 2x/day. She does not have any problems with the pain medication. She states it allows her to get up and move. She states she is able to do a little more. (Will increase medication to hydrocodone 5/325, 2x/day. The pt states she has been getting 3/day for 30 days. I reviewed the previous fill dates and # of days with the pt and she voiced understanding.) (From ov on 11/26/23: Will start norco 5/325, 1 tablet daily. The pt would like to have 2 tablets/day.) (From initial ov: We have discussed topicals-she has used topicals, including hempvana-I have advised her to not use this again. It could show up marijuana metabolites. She has used Blue Emu, compounded creams, aspercream. We have also discussed essential oils. We have discussed oral pain medication and risks. Will start hydrocodone 5/325, as indicated, 1 tablet daily at the next ov.) Dates: 02/19-03/21-. The pt filled the prescription for hydrocodone on 01/31/24, but has not taken any of the medication. I have advised her I will send in a prescription for 03/21/24, since she has a full one at this time. Preventative Care: Referred by Juanita Gallagher APRN. Return to Clinic in two month to f/u on the treatment plan. [email or web address] Not available 02/20/2024 17:06:39 04/14/2024 04/14/2024 Casi Cruz is a 63-year-old female on oxygen with a history of COPD, TIAs, and CHF who is status post L1 and L2 kyphoplasties with Dr. Roque on 10/14/2023 and L2-[address] Fernández 11/28/2021 presenting to the clinic for a follow-up. When studying her MRI from October 2023 at [facility], there is no clear cause for the pain down the posterior aspect of her lower extremities. X-rays reveal the previous kyphoplasties with no instability noted. The patient's symptoms are tolerable on her current pain regimen. Given her extensive medical history and oxygen dependence, we do not recommend surgery at this time. The patient is in agreement. No specific follow-up is needed at this time. She should contact the office with any questions, concerns, or new or worsening symptoms. [email or web address] Not available 04/14/2024 13:41:43 04/16/2024 04/16/2024 Plan: I have personally reviewed this patient's MOHSEN report as per [facility] board guidelines and it was found to be appropriate. Patient signed pain management agreement per clinic policy. The medication is or continues to be in the best interest of patient centered care. Schedule II, III or IV medications were provided for symptom or disease control. Risks and benefits of such medications were discussed with the patient. Labs: The pt was not sent for urine drug testing today. The pt is prescribed chronic pain medication. The confirmation of urine testing on 11/19/23 was positive for hydrocodone, norhydrocodone, and hydromorphone. Appears appropriate. Psychological Evaluation: The pt will be referred to the psychologist for evaluation of the chronic pain and risk assessment. The pt is aware of this. Physical Therapy/Activiti es/Exercise: (From initial ov: She states the last time she went to PT has been a good while. She does do a HEP most days. She does have a TENs unit but can't put it on.) Injections: (From previous ov: The pt states the injections have not helped her.) Medications: Will continue norco 5/325, 2x/day. She does not have any problems with the pain medication. She states it allows her to get up and move. She states she is able to do a little more. (Will increase medication to hydrocodone 5/325, 2x/day. The pt states she has been getting 3/day for 30 days. I reviewed the previous fill dates and # of days with the pt and she voiced understanding.) (From ov on 11/26/23: Will start norco 5/325, 1 tablet daily. The pt would like to have 2 tablets/day.) (From initial ov: We have discussed topicals-she has used topicals, including hempvana-I have advised her to not use this again. It could show up marijuana metabolites. She has used Blue Emu, compounded creams, aspercream. We have also discussed essential oils. We have discussed oral pain medication and risks. Will start hydrocodone 5/325, as indicated, 1 tablet daily at the next ov.) Dates: 05/03-06/02-07/02/ 5. (From ov on 02/20/24: The pt filled the prescription for hydrocodone on 01/31/24, but has not taken any of the medication. I have advised her I will send in a prescription for 03/21/24, since she has a full one at this time.) Preventative Care: Referred by Juanita Gallagher APRN. Return to Clinic in two month to f/u on the treatment plan. lina Not available 04/16/2024 11:47:18 06/25/2024 06/25/2024 Plan: I have personally reviewed this patient's MOHSEN report as per [place] medical board guidelines and it was found to be appropriate. Patient signed pain management agreement per clinic policy. The medication is or continues to be in the best interest of patient centered care. Schedule II, III or IV medications were provided for symptom or disease control. Risks and benefits of such medications were discussed with the patient. Labs: The pt was not sent for urine drug testing today. The pt is prescribed chronic pain medication. The confirmation of urine testing on 11/19/23 was positive for hydrocodone, norhydrocodone, and hydromorphone. Appears appropriate. Psychological Evaluation: The pt will be referred to the psychologist for evaluation of the chronic pain and risk assessment. The pt is aware of this. Physical Therapy/Activiti es/Exercise: We discussed that the pt needs to keep moving.(From initial ov: She states the last time she went to PT has been a good while. She does do a HEP most days. She does have a TENs unit but can't put it on.) Injections: (From previous ov: The pt states the injections have not helped her.) Medications: Will continue norco 5/325, but will increase to 3x/day. She does not have any problems with the pain medication. She states it allows her to get up and move. (Will increase medication to hydrocodone 5/325, 2x/day. The pt states she has been getting 3/day for 30 days. I reviewed the previous fill dates and # of days with the pt and she voiced understanding.) (From ov on 11/26/23: Will start norco 5/325, 1 tablet daily. The pt would like to have 2 tablets/day.) (From initial ov: We have discussed topicals-she has used topicals, including hempvana-I have advised her to not use this again. It could show up marijuana metabolites. She has used Blue Emu, compounded creams, aspercream. We have also discussed essential oils. We have discussed oral pain medication and risks. Will start hydrocodone 5/325, as indicated, 1 tablet daily at the next ov.) Dates: 07/03-08/02- 5 Preventative Care: Referred by Juanita Gallagher APRN. Return to Clinic in two month to f/u on the treatment plan. [email or web address] Not available 06/25/2024 12:11:48 Plan of Treatment Reminders Order Date Submit Date Provider Last Modified By Organization Details Last Modified Time Details Appointments RECHECK 2024 11:30A Matt KINSEY MD Not available Not available Not available Lab None recorded. Referral None recorded. Procedures None recorded. Surgeries None recorded. Imaging None recorded. Medication Orders hydrocodo ne 5 mg-acetam inophen 325 mg tablet 2024 025 [facility], [address], [address], 06/25/2024 11:29:57 hydrocodo ne 5 mg-acetam inophen 325 mg tablet 2024 025 [facility], [address], [id number], 06/25/2024 11:29:56 hydrocodo ne 5 mg-acetam inophen 325 mg tablet 2024 025 [facility], [address], [address], 04/16/2024 11:30:43 hydrocodo ne 5 mg-acetam inophen 325 mg tablet 2024 025 [facility], [address], [id number], 04/16/2024 11:30:42 hydrocodo ne 5 mg-acetam inophen 325 mg tablet 2023 024 eflinCounts include 234 beds at the [facility], [address] [facility] [place], [address], 02/20/2024 17:05:18 Patient TargetsNo targets recorded. Patient InstructionsNo instructions recorded. Reason for Referral None Reported. Results Created Date Observation Date Name Description Value Unit Range Abnormal Flag Note LastModifiedBy Organization Detail LastModifiedTime 04/14/1904/14/2024 XR, lumbo sacra l spine , 2 or 3 view, bendi ng only [facility] [address] [place] [address] Patishashi t Name: MARTHA morse : 959 Patishashi t Orderi ng Provid er: LIA ROQUE EXAM DATE: 2024 EXAM: XR LUMBAR SPINE FLEX/E XT ONLY CLINIC AL INFORM ATION: Back pain. IMAGES PROVID ED: Latera l views of the lumbar spine in flexio n and extens ion. COMPAR SÁNCHEZ: 024 FINDIN GS: Previo us L1 and L2 compre ssion deform ities which have been treate d with kyphop lasty. Stable appear ance with no compli cation s indica abbie. Mild diffus e degene rative endpla te spurri ng. Disc spaces are well-m aintai eula. No abnorm ality of alignm ent is seen. No instab ility is seen on flexio n or extens ion. No radiog raphic eviden ce of injury is noted. IMPRES JUAN LUIS: Mild DDD with previo us L1 and L2 kyphop lasty proced ures. No instab ility. Interp reted By: Edin Luke MD Electr onical ly Signed By: Edin Luke MD on 04/14/19 12:15 PM [facility] [address] [place] [address], [id number], 06/23/2024 15:57:27 Result Notes None recorded. 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 Procedures Surgical History Date Name Laterality Status Provider Name and Address Organization Details Recorded Time 04/10/19 Date of Last Mammogram completed Amiradary Hogan [facility] 05/04/2024 14:53:23 tonsillectomy completed [facility] 06/29/2021 11:07:23 partial hysterectomy completed [facility] 06/29/2021 11:07:41 cholecystectomy completed [facility] 06/29/2021 11:07:49 Unlisted px accessory sinus completed [facility] 06/29/2021 11:08:12 Unlisted px phrnx adnd/tnsl completed [facility] 06/29/2021 11:08:24 procedure on vein completed [facility] 06/29/2021 11:08:40 Appendectomy completed [facility] 05/04/2024 14:53:09 Imaging Results None recorded. Procedure Notes None recorded. Medical Equipment None Reported. Allergies Allergen ID Allergen Name Allergen Category Reaction Reaction Severity Criticality Documentation Date Start Date Code Code System Note Provider Name and Address Organization Details Recorded Time 084081 Cipro medicatio n Not available Not available Not available 02/02/2016201156 3 RxNorm Comme nt: Creat ed By: Preet nieves d Date: 2011 10:08 :22 AM; Not Available Count includes the [facility] 6 12:52:49 180069 Celebrex medicatio n Not available Not available Not available 02/03/20162011 39642 7 RxNorm Comme nt: Creat ed By: Preet nieves d Date: 2011 10:08 :34 AM; Not Available Count includes the [facility] 6 05:46:24 [id number] Levaquin medicatio n Not available Not available Not available 02/03/20162011 60619 2 RxNorm Comme nt: Creat ed By: Storm Bonner;Ruthie nieves d Date: 2011 10:07 :37 AM; Not Available Count includes the [facility] 6 08:06:37 [id number] Macrobid medicatio n Not available Not available Not available 02/03/20162011 09354 1 RxNorm Comme nt: Creat ed By: Storm Bonner;Ruthie nieves d Date: 2011 10:08 :04 AM; Not Available Count includes the [facility] 6 08:06:37 555448 Product containin g penicilli n (product) medicatio n Not available Not available Not available 06/29/2021 89725 8001 SNOMED [facility] 11:02:22 [id number] gabapenti n medicatio n Not available Not available Not available 06/29/2021 50209 RxNorm Kailey Valerie null, [facility] 2 11:02:39 [id number] leflunomi de medicatio n Not available Not available Not available 06/29/2021 80118 RxNorm Kailey Valerie null, [facility] 2 11:02:54 [id number] Naprosyn medicatio n Not available Not available Not available 06/29/2021 2 RxNorm Kailey Valerie null, [facility] 2 11:03:06 [id number] dextromet horphan hydrobrom mónica medicatio n Not available Not available Not available 05/04/2024 37759 0 RxNorm Amira Hogan null, [facility] 5 15:09:56 [id number] Omnicef medicatio n Not available Not available Not available 05/04/2024 33795 RxNorm Amira Hogan null, [facility] 5 15:10:19 [id number] nortripty line medicatio n Not available Not available Not available 05/04/2024 7531 RxNolavon Hogan [facility] 5 15:10:37 [id number] Simone crawfordo n Not available Not available Not available 05/04/2024 81187 1 RxFabrizio Hogan [facility] 5 15:10:45 Medications Name Sig Start Date Stop Date Status Note LastModified by Organization Details LastModified Time cyclobenz aprine 10 mg tablet 12/23 completed Not Available Not Available Not Available Tussin DM 10 mg-100 mg/5 mL oral syrup active 05/04/24 per med list no longer taking Not Available Not Available Not Available fluconazo le 100 mg tablet 12/23 completed Not Available Not Available Not Available Aggrenox 25 mg-200 mg capsule, extended release Two times a day 12/23 completed Duration : 30 days;Cesar quency: bid;Medi cation Descript ion: aspirin- dipyrida mole; Dosage:1 ; Route:or al; refills: 0; Quantity :60 capsule, extended release Not Available Not Available Not Available potassium chloride ER 10 mEq capsule,e xtended release active Not Available Not Available Not Available prednison e 10 mg tablet 12/23 completed Not Available Not Available Not Available doxycycli ne hyclate 100 mg capsule active 05/04/24 per med list no longer taking Not Available Not Available Not Available Neurontin 300 mg capsule Every night at bedtime 11/18 completed Duration : 30 days;Ins truction s: Begin 1 qhs x 1 wk, then 2 qhs x 1 wk, then if needed, increase to 3 caps qhs;Freq uency: qhs;Medi cation Descript ion: gabapent in; Dosage:a s directed ; Route:or al; refills: 6; Quantity :90 capsule Not Available Not Available Not Available ipratropi um 0.5 mg-albute rol 3 mg (2.5 mg base)/3 mL nebulizat ion soln USE 3 ML IN NEBULIZE R EVERY 8 HOURS active Not Available Not Available No t Available tizanidin e 2 mg tablet Three times a day 12/23 completed Not Available Not Available Not Available clindamyc in HCl 300 mg capsule 11/18 completed Not Available Not Available Not Available albuterol sulfate 2.5 mg/3 mL (0.083 %) solution for nebulizat ion USE 1 VIAL IN NEBULIZE R EVERY 4 TO 6 HOURS NEEDED FOR PERSISTE NT COUGH WHEEZE CHEST TIGHTNES S OR SHORTNES S OF BREATH active Not Available Not Available No t Available azithromy catalina 250 mg tablet 11/18 completed Not Available Not Available Not Available pravastat in 40 mg tablet Daily 11/18 completed Frequenc y: daily;Me dication Descript ion: pravasta tin; Dosage:1 ; Route:or al; refills: 0 Not Available Not Available Not Available tizanidin e 4 mg tablet active Not Available Not Available Not Available fluconazo le 150 mg tablet TAKE 1 TABLET BY MOUTH today MAY REPEAT DOSE in 72 HOURS if SYMPTOMS persist active Not Available Not Available No t Available valacyclo vir 1 gram tablet 12/23 completed Not Available Not Available Not Available clarithro mycin 500 mg tablet active 05/04/24 per med list no longer taking Not Available Not Available Not Available hydrocodo ne 5 mg-acetam inophen 325 mg tablet TAKE 1 TABLET BY MOUTH THREE TIMES DAILY active Not Available Not Available No t Available fluconazo le 200 mg tablet active Not Available Not Available Not Available prednison e 20 mg tablet active 05/04/24 per med list no longer taking Not Available Not Available Not Available prednison e 5 mg tablet 12/23 completed Not Available Not Available Not Available clindamyc in HCl 150 mg capsule 11/18 completed Not Available Not Available Not Available venlafaxi ne ER 150 mg capsule,e xtended release 24 hr Daily active Not Available Not Available Not Available Neurontin 600 mg tablet As Directed 11/18 completed Duration : 30 days;Ins truction s: 2 - 3 qhs;Freq uency: as direct.; Medicati on Descript ion: gabapent in; Dosage:a s directed ; Route:or al; refills: 0; Quantity :90 tablet Not Available Not Available Not Available potassium chloride ER 10 mEq tablet,ex tended release 12/23 completed Not Available Not Available Not Available metronida zole 500 mg tablet 11/18 completed Not Available Not Available Not Available acyclovir 400 mg tablet 11/18 completed Not Available Not Available Not Available sulfameth oxazole 800 mg-trimet hoprim 160 mg tablet 11/18 completed Not Available Not Available Not Available hydrocodo ne 10 mg-acetam inophen 325 mg tablet 12/23 completed Not Available Not Available Not Available triamcino lone acetonide 0.1 % topical cream active Not Available Not Available Not Available spironola ctone 25 mg tablet active Not Available Not Available No t Available simvastat in 40 mg tablet 12/23 completed Not Available Not Available Not Available acyclovir 800 mg tablet 12/23 completed Not Available Not Available Not Available bisoprolo l fumarate 5 mg tablet active Not Available Not Available Not Available nortripty line 25 mg capsule 12/23 completed Not Available Not Available Not Available amoxicill in 875 mg tablet 11/18 completed Not Available Not Available Not Available dipyridam ole 75 mg tablet Two times a day 12/23 completed Duration : 10 days;Cesar quency: bid;Medi cation Descript ion: dipyrida mole; Route:or al; refills: 0 Not Available Not Available Not Available meclizine 25 mg tablet active 05/04/24 per med list no longer taking Not Available Not Available Not Available hydrocodo ne 7.5 mg-acetam inophen 325 mg tablet TAKE 1 TABLET BY MOUTH EVERY 6 HOURS NEEDED 12/23 completed Not Available Not Available Not Available cephalexi n 500 mg capsule TAKE 1 CAPSULE BY MOUTH EVERY 8 HOURS FOR 10 DAYS active Not Available Not Available No t Available pantopraz ole 40 mg tablet,de layed release 12/23 completed Not Available Not Available Not Available bumetanid e 0.5 mg tablet 12/23 completed Not Available Not Available Not Available clotrimaz ole-betam ethasone 1 %-0.05 % topical cream active Not Available Not Available Not Available Cozaar 100 mg tablet Daily 12/23 completed Frequenc y: daily;Me dication Descript ion: losartan ; Dosage:1 ; Route:or al; refills: 5; Quantity :30 tablet Not Available Not Available Not Available Requip 4 mg tablet Two times a day 12/23 completed Frequenc y: bid;Medi cation Descript ion: ropiniro le; Dosage:1 ; Route:or al; refills: 0; Quantity :3 tablet Not Available Not Available Not Available budesonid e 0.5 mg/2 mL suspensio n for nebulizat ion USE 1 VIAL IN NEBULIZE R TWICE DAILY active Not Available Not Available No t Available bumetanid e 1 mg tablet TAKE 1 TABLET BY MOUTH EVERY DAY active Not Available Not Available No t Available hydrocort isone 2.5 % topical cream active Not Available Not Available Not Available monteluka st 10 mg tablet Daily active Not Available Not Available Not Available hydroxyzi ne HCl 25 mg tablet active Not Available Not Available No t Available mometason e 0.1 % topical ointment active 05/04/24 per med list no longer taking Not Available Not Available Not Available mupirocin 2 % topical ointment 11/18 completed Not Available Not Available Not Available furosemid e 20 mg tablet 12/23 completed Not Available Not Available Not Available triamtere ne 75 mg-hydroc hlorothia zide 50 mg tablet Daily 12/23 completed Duration : 10 days;Cesar quency: daily;Me dication Descript ion: hydrochl orothiaz mónica-tria mterene; Dosage:1 ; Route:or al; refills: 0 Not Available Not Available Not Available metoprolo l succinate ER 25 mg tablet,ex tended release 24 hr 11/18 completed Not Available Not Available Not Available levalbute rol 1.25 mg/3 mL solution for nebulizat ion USE 1 VIAL IN NEBULIZE R EVERY 4 TO 6 HOURS NEEDED FOR PERSISTE NT COUGH WHEEZE CHEST TIGHTNES S SHORTNES S OF BREATH 12/23 completed Not Available Not Available Not Available Pulmicort 0.25 mg/2 mL suspensio n for nebulizat ion 11/18 completed Medicati on Descript ion: budesoni de; Route:in halation ; refills: 0 Not Available Not Available Not Available levofloxa catalina 750 mg tablet 12/23 completed Not Available Not Available Not Available cefdinir 300 mg capsule active 05/04/24 per med list no longer taking Not Available Not Available Not Available dicyclomi ne 10 mg capsule active Not Available Not Available Not Available pramipexo le 1.5 mg tablet active Not Available Not Available Not Available ipratropi um bromide 0.02 % solution for inhalatio n 12/23 completed Medicati on Descript ion: ipratrop ium; Route:in halation ; refills: 0 Not Available Not Available Not Available nortripty line 50 mg capsule 12/23 completed Not Available Not Available Not Available metoclopr amide 10 mg tablet 12/23 completed Medicati on Descript ion: metoclop ramide; Route:or al; refills: 0 Not Available Not Available Not Available Ventolin HFA 90 mcg/actua tion aerosol inhaler Inhale 2 puffs every 4 hours by inhalati on route as directed . active Not Available Not Available No t Available buspirone 15 mg tablet Three times a day 12/23 completed Not Available Not Available Not Available azithromy catalina 500 mg tablet 11/18 completed Not Available Not Available Not Available ezetimibe 10 mg tablet 12/23 completed Not Available Not Available Not Available rosuvasta tin 40 mg tablet 12/23 completed Not Available Not Available Not Available Klor-Con M20 mEq tablet,ex tended release 12/23 completed Not Available Not Available Not Available Co Q-10 300 mg capsule Take 1 capsule every day by oral route as directed . active Not Available Not Available No t Available Spiriva with [employer] r 18 mcg and inhalatio n capsules 12/23 completed Medicati on Descript ion: tiotropi um; Route:in halation ; refills: 0 Not Available Not Available Not Available pregabali n 25 mg capsule Take 1 capsule 3 times a day by oral route. active 05/04/24 per med list no longer taking Not Available Not Available Not Available pregabali n 75 mg capsule Take 1 capsule twice a day by oral route. 02/19 completed Not Available Not Available Not Available Antifunga l (clotrima zole) 1 % topical cream active Not Available Not Available Not Available primidone 12/23 completed Not Available Not Available Not Available Collagen Plus Vitamin C active Not Available Not Available No t Available levocetir izine 5 mg tablet TAKE 1 TABLET NIGHTLY AT BEDTIME FOR ALLERGY SYMPTOMS active Not Available Not Available No t Available budesonid e 1 mg/2 mL suspensio n for nebulizat ion INHALE 1 VIAL TWICE DAILY active Not Available Not Available No t Available Pro Fe 180 mg iron capsule 12/23 completed Not Available Not Available Not Available Astepro 205.5 mcg (0.15 %) nasal spray 12/23 completed Medicati on Descript ion: azelasti ne nasal; Route:na saman; refills: 0 Not Available Not Available Not Available Dexilant 60 mg capsule, delayed release Take 1 capsule every day by oral route as directed for 56 days. active Not Available Not Available No t Available Dexilant 11/18 completed Medicati on Descript ion: dexlanso prazole; Route:or al; refills: 0 Not Available Not Available Not Available Dulera 100 mcg-5 mcg/actua tion HFA aerosol inhaler 12/23 completed Medicati on Descript ion: formoter ol-momet asone; Route:in halation ; refills: 0 Not Available Not Available Not Available Xarelto 15 mg tablet TAKE 1 TABLET BY MOUTH EVERY DAY WITH DINNER active Not Available Not Available No t Available Flonase Allergy Relief 50 mcg/actua tion nasal spray,samm pension Daily 12/23 completed Frequenc y: daily;Me dication Descript ion: fluticas one nasal; Dosage:1 spray; Route:na saamn; refills: 0; Quantity :1 spray Not Available Not Available Not Available Folinic-P candice 4 mg-50 mg-2 mg tablet 12/23 completed Not Available Not Available Not Available Repatha SureClick 140 mg/mL subcutane ous pen injector INJECT 1 ML SUBCUTAN EOUSLY ONCE EVERY 14 DAYS active Patient states she is not taking due to side effects. Not Available Not Available Not Available Vitals Date Recorded Body height Body mass index (BMI) Body weight Systolic blood pressure Diastolic blood pressure Provider Name and Address Organization Details Last Updated DateTime 04/14/2024 152.4 cm 34.2 kg/m2 82418.6 6 g 124 mm[Hg] 84 mm[Hg] [facility] 13:20:34 Date Recorded Body height Body mass index (BMI) Body weight Oxygen saturation Oxygen saturation in Arterial blood by Pulse oximetry Inhaled oxygen flow rate Heart rate Systolic blood pressure Diastolic blood pressure Provider Name and Address Organization Details Last Updated DateTime 5 152.4 cm 35.3 kg/m2 29179.2 2 g 96 % 96 % 2 L/min 70 /min 120 mm[Hg] 68 mm[Hg] Blanca Gannno [facility] 5 11:13:33 Date Recorded Body height Body mass index (BMI) Body weight Heart rate Oxygen saturation Oxygen saturation in Arterial blood by Pulse oximetry Systolic blood pressure Diastolic blood pressure Provider Name and Address Organization Details Last Updated DateTime 5 152.4 cm 35.3 kg/m2 84155.4 3 g 69 /min 86 % 86 % 110 mm[Hg] 50 mm[Hg] Amira Hogan [facility] 5 15:03:21 Date Recorded Body height Body mass index (BMI) Body weight Oxygen saturation Oxygen saturation in Arterial blood by Pulse oximetry Inhaled oxygen flow rate Provider Name and Address Organization Details Last Updated DateTime 5 152.4 cm 35.7 kg/m2 36611.4 g 94 % 94 % 2 L/min Blancalalo Gannon [facility] 5 11:11:53 Date Recorded Body height Oxygen saturation Oxygen saturation in Arterial blood by Pulse oximetry Inhaled oxygen flow rate Heart rate Systolic blood pressure Diastolic blood pressure Provider Name and Address Organization Details Last Updated DateTime 4 152.4 cm 97 % 97 % 2 L/min 61 /min 128 mm[Hg] 82 mm[Hg] Blanca Gannon [facility] 4 12:51:26 Social History Question Answer Notes LastModified by Organizat ion Details LastModified Time Tobacco Smoking Status Former Smoker Blancalalo Gannon [facility] 11/19/2023 14:27:06 What Was The Date Of Your Most Recent Tobacco Screening? 06/25/2024 [email or web address] Information not available 06/25/2024 How Much Tobacco Do You Smoke? 0.5 PPD Information not available 06/29/2021 Has Tobacco Cessation Counseling Been Provided? No Information not available 06/29/2021 How Many Years Have You Smoked Tobacco? 45 Information not available 06/29/2021 Sex: Female Functional Status Question Answer Note LastModified by Organizat ion Details LastModified Time Do you use any illicit or recreational drugs? No Information not available 06/29/2021 Do you or have you ever used any other forms of tobacco or nicotine? No Information not available 06/29/2021 What is your level of alcohol consumption? None Information not available 06/29/2021 Are you currently employed? No disabled [place] [id number] Information not available 05/04/2024 Mental Status None recorded. Family History Relationship Description Onset Age of this Age Resolved Age Notes LastModified by Organization Details LastModified Time Unspecified Relation Malignant neoplastic disease Not available 04/12 14:49:35 Unspecified Relation Diabetes mellitus [email or web address] Not available 04/12 14:49:35 Mother Familial cancer of breast [email or web address] Not available 04/12 14:49:35 Mother Malignant tumor of pancreas [email or web address] Not available 2024 14:51:13 Mother Chronic obstructive pulmonary disease [email or web address] Not available 2024 14:51:40 Father Hypercholest erolemia [email or web address] Not available 2024 14:51:58 Medical History Condition Response Ovarian Cancer N Diabetes N Other N Thyroid Disease N Arthritis Y Blood Transfusion N Breast Cancer N Congestive Heart Failure (CHF) Y Eczema N Stroke Y Diverticulitis N Asthma Y COPD Y Crohn's Disease N Breast Problem Y Osteoporosis/Osteopenia Y Sleep Apnea Y Liver Disease N Heart Disease N Heart Attack ([place]) N Fibromyalgia Y Mental Illness Y Kidney Disease N Gynecological History Statement/Question Response # of Pregnancies 2 Age at first live 19 Date of Last Mammogram 04/10/2024 # of Births 1 # of Miscarriages 1 Age at Menarche 9 Obstetrics History GPAL:G 2 P 1 0 1 0 Type Value Full Term 1 Spontaneous 1 Total 2 Past Encounters Encounter ID Performer Location Encounter Start Date Encounter Closed Date Diagnosis/Indication Diagnosis SNOMED-CT Code Diagnosis ICD10 Code Diagnosis Note [id number] LUX FERNÁNDEZ MD [facility] [address] [facility] [place] [address] 01/18/2020 12:49:41 01/18/2020 15:14:53 Lumbar radiculopathy 755256964 M54.16 Time spent reviewing images, discussing the diagnosis and coordinati ng care: 30min [id number] IDLIP BILL PA-C [facility] [address] [place] [address] 06/29/2021 10:15:51 07/04/2021 09:16:52 Lumbar radiculopathy 642711192 M54.16 [id number] GLENDA TUTTLE PA-C [facility] [address] [place] [address] 11/20/2021 10:07:54 11/27/2021 14:55:22 Lumbar spondylosis 769258930 M47.896 [id number] LUX FERNÁNDEZ MD SURGERY SCHEDULE [address] [place] [address] 02/09/2022 09:11:14 02/09/2022 10:30:20 [id number] LUX FERNÁNDEZ MD [facility] [address] [place] [address] 02/14/2022 13:50:04 02/26/2022 16:15:54 [id number] LUX FERNÁNDEZ MD [facility] [address] [place] [address] 03/15/2022 09:39:55 03/16/2022 16:35:55 Postoperative care [id number] Z48.89 [id number] JUANITA VALDERRAMA APRN [facility] [address] [place] [address] 10/03/2023 12:25:46 10/04/2023 04:49:26 Lumbar radiculopathy 298310357 M54.16 Compressio n fracture of lumbar spine 529845273 M48.56XA Impairment of balance 38 2985370 R26.89 Poor manual dexterity 30 9716331 R29.898 [id number] LIA ROQUE MD SURGERY SCHEDULE [address] [place] [address] 1 11/01/2023 13:01:26 11/05/2023 10:00:09 [id number] RAOUL KINSEY MD [facility] CLOSED [address] [place] [address] 1 11/19/2023 13:39:01 11/19/2023 15:00:53 Chronic low back pain 771703195 M54.50 Degenerati on of lumbar intervertebral disc 26559520 M51.36 Spinal hilda nosis of lumbar region 20107088 M48.062 [id number] RAOUL KINSEY MD [facility] CLOSED [address] [place] [address] 1 11/26/2023 12:42:31 11/26/2023 12:56:48 Chronic low back pain 658965425 M54.50 Degenerati on of lumbar intervertebral disc 72178321 M51.36 Spinal hilda nosis of lumbar region 22260769 M48.062 [id number] BIANCA ESPAÑA PA-C [facility] [address] [facility] [address] [place] [address] 11/26/2023 13:56:01 11/27/2023 04:57:02 Postoperative visit 121910385 Z48.89 [id number] RAOUL KINSEY MD [facility]IC[facility] CLOSED [address] [place] [address] 1 12/24/2023 12:33:05 12/24/2023 13:02:45 Chronic low back pain 760419971 M54.50 The prescripti on to be filled on 12/27/23 was cancelled. The prescripti on sent to [facility] was cancelled. Degenerati on of lumbar intervertebral disc 00593619 M51.362 Spinal hilda nosis of lumbar region 37251898 M48.062 [id number] BIANCA ESPAÑA PA-C [facility] [address] [facility] [address] [place] [id number] 01/10/2024 09:40:04 01/11/2024 04:31:11 Lumbar radiculopathy 258085560 M54.16 [id number] RAOUL KINSEY MD [facility] MEDICINE CLOSED [address] [place] [address] 1 02/20/2024 12:35:26 02/20/2024 12:58:34 Chronic low back pain 838997757 M54.50 Degenerati on of lumbar intervertebral disc 74643189 M51.362 Spinal hilda nosis of lumbar region 69068549 M48.062 [id number] BIANCA ESPAÑA [facility]-C [facility] [address] [facility] [address] 0 04/14/2024 13:13:45 04/15/2024 08:29:03 Lumbar radiculopathy 091492861 M54.16 [id number] RAOUL KINSEY MD PAIN MEDICINE CLOSED [address] [place] [address] 1 04/16/2024 11:04:40 04/16/2024 11:22:08 Chronic low back pain 716886218 M54.50 Degenerati on of lumbar intervertebral disc 25790833 M51.362 Spinal hilda nosis of lumbar region 78438302 M48.062 [id number] NIHAR[place] [address] [place] [address] 1 05/04/2024 14:30:28 05/10/2024 04:08:11 Inversion of right nipple 4021424633 3088293 N64.59 Patient and I reviewed her medical history, breast symptoms, most recent negative mammogram, and today s clinical exam findings. Her nipple inversion is longstandi ng and unchanged. There are no underlying palpable masses and no abnormalit ies seen on mammogram. Discussed yellow nipple discolorat ion and it appears this is not a true discolorat ion, but related to poor perfusion. Patient reassured. She is encouraged to continue routine screenings , may see us on an as-needed basis. Decreased capillary filling time 07913570 R94.39 [id number] RAOUL KINSEY MD PAIN MEDICINE CLOSED [address] [place] [address] 1 06/25/2024 11:02:23 06/25/2024 11:26:16 Chronic low back pain 214376935 M54.50 Degenerati on of lumbar intervertebral disc 68878044 M51.362 Spinal hilda nosis of lumbar region 43125431 M48.062 Health Concerns Section Related Observation LastModified by Organization Detai ls LastModified Time None Recorded Concern Status LastModified by Organization Details LastModified Time None Recorded Advance Directives Directive None Recorded Payers Insurance Date Sequence Insurance Name Policy Number Policy Sanchez Covered Member ID Sanchez Member ID Guarantor Name 06/22/2024 1 [place] Casi Cruz [id number] Casi Cruz 10/15/2023 2 [employer] - [employer] (MEDICARE SUPPLEMENT) Casi Cruz [id number] Casi Cruz Notes Date Note Type Note Provider Name and Address Organization Details Recorded Time 02/20/2024 text/html The pt complains of low back pain and multijoint pain. The pt states she was started on a 75 mg dose of pregabalin, but then it was decreased to 25 mg of pregabalin. She states she believes it make be helping her. (From ov on 12/24/23: The pt states she is having increased pain. She is having pain down the back of her legs. She is having increased back pain. She has been taking her pain medication daily, had some left over from her pcp, and took that, too.) (From initial ov: The pt states she has had back pain for about 5-10 years before the laminectomy by Dr. Fernández in 2021. The pt developed an acute back pain this past summer. She had sustained a L2 compression fx and underwent a L1/L2 kyphoplasty on 10/14/23. This did help her back pain. The pt states she did work hard when she was young. 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 The pt is on 2l of O2 since covid and flu. She is followed at [facility] and has tried enbrel and humira, and several others. She does have sleep apnea.) The pt states she has IBS, and bladder-leaks. The pt is sleeping approximately 2-3 hours per night. The pt is not working. The pt reports that she has not fallen since her last ov. The pt ambulates without an AD. The pt is alone at today s visit.Etoh-Denied. Tobacco-Quit 6 months ago. CBD-Denied. RAOUL KINSEY MD [address] [place] [address], [phone], [facility] 02/20/2024 17:07:14 04/14/2024 text/html Casi Cruz i s a 63-year-old female on oxygen with a history of COPD, TIAs, and CHF who is status post L1 and L2 kyphoplasties with Dr. Roque on 10/14/2023 and L2-[address] Fernández 11/28/2021 presenting to the clinic for a follow-up. The back pain she was experiencing prior to her kyphoplasty's has resolved. However, she continues to complain of lower back pain. The back pain is her main concern. However, at times she will experience pain radiating down the posterior aspect of her lower extremities along with numbness and paresthesias. Her lower extremity symptoms are worse with standing or walking. She is on chronic narcotic pain medication which she advises does help alleviate the pain. She is unable to participate in physical therapy, as she is oxygen dependent and gets out of breath quickly with minimal physical activity. She is not interested in receiving any injections with pain management. She advises that she has had several recent illnesses and that she is now having to wear CPAP at night on top of the nasal cannula during the day. BIANCA ESPAÑA PA-C [address] [place] [address], [phone], [facility] 04/14/2024 13:42:27 04/16/2024 text/html The pt complains of low back pain and multijoint pain. The pt did not have any new pain complaints. The pt did have her f/u with neurosurgery on 04/14/24. She reports being in the hospital for one night due to O2 levels. She states she now uses a C-pap machine. (From ov on 02/20/24: The pt states she was started on a 75 mg dose of pregabalin, but then it was decreased to 25 mg of pregabalin. She states she believes it make be helping her.) (From ov on 12/24/23: The pt states she is having increased pain. She is having pain down the back of her legs. She is having increased back pain. She has been taking her pain medication daily, had some left over from her pcp, and took that, too.) (From initial ov: The pt states she has had back pain for about 5-10 years before the laminectomy by Dr. Fernández in 2021. The pt developed an acute back pain this past summer. She had sustained a L2 compression fx and underwent a L1/L2 kyphoplasty on 10/14/23. This did help her back pain. The pt states she did work hard when she was young. 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 The pt is on 2l of O2 since covid and flu. She is followed at the [facility] and has tried enbrel and humira, and several others. She does have sleep apnea.) The pt states she has IBS, and bladder-leaks. The pt is sleeping approximately 2-3 hours per night. The pt is not working. The pt reports that she has fallen since her last ov-1x-on the ice. The pt ambulates without an AD. The pt is accompanied by a friend at today s visit.Etoh-Denied. Tobacco-Quit 6 months ago. CBD-Denied. RAOUL KINSEY MD [facility] [place], [phone], [facility] 04/16/2024 11:47:45 05/04/2024 text/html Casi Cruz i s a 63 yo female, new to our office, referred by Gladis Delcid APRN for evaluation of right nipple retraction and discoloration. Patient c/o long-standing right nipple retraction that is unchanged, but new yellow discoloration to the nipple. Discoloration is more prominent when she is cold. She denies any palpable breast masses or changes to the breast skin. She has occasional nipple itching, no discharge. Her mammogram was completed last month at [facility] (images and reports in PACS), resulted BiRADS II. Her personal history is remarkable for poor pulmonary health secondary to lifelong smoking and COVID/pneumonia 2 years ago. She is on continuous supplemental O2. She did recently quit smoking. Risk factors: , menarche at 9, first baby at 19. Postmenopausal, s/p hysterectomy 1987 for fibroids, BSO 2007 for benign ovarian mass. Family history of breast (late 60 s) and pancreatic cancers in her mother, lymphoma in sister, and colon cancer in maternal aunt. Personal h/o left breast biopsy x1 and right breast cyst aspiration in past. Lifetime risk = 3.85% by Raisa, v8. NIHARIKA SANDRITA BOCANEGRA, [employer]URE INSTRU[employer] [address] [place], [phone], [facility] 05/09/2024 18:34:17 06/25/2024 text/html The pt complains of low back pain and multijoint pain. The pt states her pain is worse. Her arthritis is flaring up. She states the pain medication is not lasting for her. (From ov on 04/16/24: The pt did have her f/u with neurosurgery on 04/14/24. She reports being in the hospital for one night due to O2 levels. She states she now uses a C-pap machine.) (From ov on 02/20/24: The pt states she was started on a 75 mg dose of pregabalin, but then it was decreased to 25 mg of pregabalin. She states she believes it make be helping her.) (From ov on 12/24/23: The pt states she is having increased pain. She is having pain down the back of her legs. She is having increased back pain. She has been taking her pain medication daily, had some left over from her pcp, and took that, too.) (From initial ov: The pt states she has had back pain for about 5-10 years before the laminectomy by Dr. Fernández in 2021. The pt developed an acute back pain this past summer. She had sustained a L2 compression fx and underwent a L1/L2 kyphoplasty on 10/14/23. This did help her back pain. The pt states she did work hard when she was young. 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 The pt is on 2l of O2 since covid and flu. She is followed at the [facility] and has tried enbrel and humira, and several others. She does have sleep apnea.) The pt states she has IBS, and bladder-leaks. The pt is sleeping approximately 2-3 hours per night. The pt is not working. The pt reports that she has not fallen since her last ov. The pt ambulates without an AD. The pt is accompanied by a friend at today s visit.Etoh-Denied. Tobacco-Quit 6 months ago. CBD-Denied. RAOUL KINSEY MD [facility] [place], [phone], [facility] 06/25/2024 12:12:21 OBGyn Episode No OBEpisode recorded.
--- OUTSIDE RECORDS SUMMARY | 2024-08-18 08:29 | XMS_ITS | Continuity of Care Document ---
Author Organization [facility], PAIN MEDICINE CLOSED Address [address] [place] [address] Care Team Providers Care Picker Packer Name Role Phone GLADIS DELCID Primary Care Provider Assessment Encounter Date Assessment Date Assessment LastModified by Organization Details LastModified Time 06/25/2024 06/25/2024 Plan: I have personally reviewed this patient's MOHSEN report as per [facility] board guidelines and it was found to [...] The pt is aware of this. Physical Therapy/Activit ies/Exercise: We discussed that the pt needs to [...] daily at the next ov.) Dates: 07/03-08/02- Preventative Care: Referred by Winsome Gallagher APRN. Return to Clinic in two [...] mg-acetam inophen 325 mg tablet 2024 025 [facility] [place], [address], 06/25/2024 11:29:57 hydrocodo ne 5 mg-acetam inophen 325 mg tablet 2024 025 [facility], [address] [place], [address], 06/25/2024 11:29:56 Patient TargetsNo targets recorded. Patient InstructionsNo instructions recorded. Reason for Referral None Reported. Problems Name Problem SNOMED Code Status Onset Date Resolution Date Notes Provider Name and Address Organization Details Recorded Time Disorder of bone and articular cartilage 230868302 Active 2015 Status: Active Not Available [facility] 6 05:37:02 Low back pain 369399042 Active Status: Active Not Available [facility] 7 06:47:46 Lumbosacr al radiculop athy 8168620 Active 2015 From Automated Load;Provi boris: PradeepEmeka; atus: Active Not Available [facility] 7 08:30:56 Problem Notes None recorded. Procedures Surgical History Date Name Laterality Status Provider Name and Address Organization Details Recorded Time 04/10/19 Date of Last Mammogram completed Amira [facility] 05/04/2024 14:53:23 tonsillectomy completed [facility] 06/29/2021 11:07:23 partial hysterectomy completed [facility] 06/29/2021 11:07:41 cholecystectomy completed [facility] 06/29/2021 11:07:49 Unlisted px accessory sinus completed [facility] 06/29/2021 11:08:12 Unlisted px phrnx adnd/tnsl completed [facility] 06/29/2021 11:08:24 procedure on vein completed [facility] 06/29/2021 11:08:40 Appendectomy completed Amira [facility] 05/04/2024 14:53:09 Imaging Results None recorded. Procedure Notes None recorded. Medical Equipment None Reported. Allergies Allergen ID Allergen Name Allergen Category Reaction Reaction Severity Criticality Documentation Date Start Date Code Code System Note Provider Name and Address Organization Details Recorded Time 273997 Cipro medicatio n Not available Not available Not available 02/02/2016201156 3 RxNorm Comme nt: Creat ed By: Preet patrick Date: 2011 10:08 :22 AM; Not Available [facility] 6 12:52:49 531800 Celebrex medicatio n Not available Not available Not available 02/03/20162011 58972 7 RxNorm Comme nt: Creat ed By: Preet patrick Date: 2011 10:08 :34 AM; Not Available [facility] 6 05:46:24 816494 Levaquin medicatio n Not available Not available Not available 02/03/20162011 27744 2 RxNorm Comme nt: Creat ed By: Storm Bonner;C reate d Date: 2011 10:07 :37 AM; Not Available [facility] 6 08:06:37 865792 Macrobid medicatio n Not available Not available Not available 02/03/20162011 80985 1 RxNorm Comme nt: Creat ed By: Storm Bonner;C reate d Date: 2011 10:08 :04 AM; Not Available [facility] 6 08:06:37 246447 Product containin g penicilli n (product) medicatio n Not available Not available Not available 06/29/2021 94257 8001 SNOMED [facility] 11:02:22 717038 gabapenti n medicatio n Not available Not available Not available 06/29/2021 19734 RxNorm Kailey Valerie null, [facility] 2 11:02:39 683999 leflunomi de medicatio n Not available Not available Not available 06/29/2021 83477 RxNorm Kailey Valerie null, [facility] 2 11:02:54 055919 Naprosyn medicatio n Not available Not available Not available 06/29/2021 2 RxNorm Kailey Valerie null, [facility] 2 11:03:06 074314 dextromet horphan hydrobrom mónica medicatio n Not available Not available Not available 05/04/2024 50446 0 RxNorm Amira Hogan [facility] 5 15:09:56 286487 Omnicef medicatio n Not available Not available Not available 05/04/2024 94736 RxNorm Amira Hogan null, [facility] 5 15:10:19 305550 nortripty line medicatio n Not available Not available Not available 05/04/2024 7531 RxNorm Amira Hogan [facility] 15:10:37 853467 Lyrica medicatio n Not available Not available Not available 05/04/2024 65481 1 RxNorm Amira Hogan [facility] 15:10:45 Medications Name Sig Start Date Stop [...] completed Frequenc y: bid;Medi cation Descript ion: bridger le; Dosage:1 ; Route:or al; refills: 0; [...] ion: fluticas one nasal; Dosage:1 spray; Route:na saman; refills: 0; Quantity :1 spray Not Available [...] Updated DateTime 5 152.4 cm 35.7 kg/m2 39181.4 g 94 % 94 % 2 L/min Blanca Gannon [facility] 5 11:11:53 Social History Question Answer Notes LastModified by Organizat ion Details LastModified Time Tobacco Smoking Status Former Smoker Blanca Gannon [facility] 11/19/2023 14:27:06 What Was The Date [...] 06/29/2021 Are you currently employed? No disabled [place] [address] Information not available 05/04/2024 Mental Status None recorded. Family History Relationship Description Onset Age of this Age Resolved Age Notes LastModified by Organization Details LastModified Time Unspecified Relation Malignant neoplastic disease [email or web address] Not available 04/12 14:49:35 Unspecified Relation Diabetes mellitus Not available 04/12 14:49:35 Mother Familial cancer of breast [email or web address] Not available 04/12 14:49:35 Mother Malignant tumor of pancreas Not available 2024 14:51:13 Mother Chronic obstructive pulmonary disease [email or web address] Not available 2024 14:51:40 Father Hypercholest erolemia [email or web address] Not available 2024 14:51:58 Medical History Condition Response Ovarian Cancer N Diabetes N Other N Thyroid Disease N Arthritis Y Blood Transfusion N Breast Cancer N Congestive Heart Failure (CHF) Y Eczema N Stroke Y Diverticulitis N Asthma Y COPD Y Crohn's Disease N Breast Problem Y Osteoporosis/Osteopenia Y Sleep Apnea Y Liver Disease N Heart Disease N Heart Attack (DE) N Fibromyalgia Y Mental Illness Y Kidney [...] SNOMED-CT Code Diagnosis ICD10 Code Diagnosis Note [id number] RAOUL KINSEY MD [facility]OSED [address] [place] [address] 06/25/2024 11:02:23 06/25/2024 11:26:16 Chronic low back pain 738195391 M54.50 Degenerati on of lumbar intervertebral disc 51167645 M51.362 Spinal hilda nosis of lumbar region 32426821 M48.062 Health Concerns Section Related Observation LastModified by Organization Detai ls LastModified Time None Recorded Concern Status LastModified by Organization Details LastModified Time None Recorded Payers Encounter Date Sequence Insurance Name Policy Number Policy Sanchez Covered Member ID Sanchez Member ID Guarantor Name 06/25/2024 1 [place]ARE[place] Casi Cruz [id number] Casi Cruz 06/25/2024 2 [employer]BINED INSURANCE - [employer] (MEDICARE SUPPLEMENT) Casi Cruz [id number] Casi Cruz Notes Date Note Type Note Provider Name and Address Organization Details Recorded Time 06/25/2024 text/html The pt complains of low [...] 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 CBD-Denied. RAOUL KINSEY MD [address] [place], [address], [facility] 06/25/2024 12:12:21 OBGyn Episode No OBEpisode recorded.
--- OUTSIDE RECORDS SUMMARY | 2024-08-18 08:29 | XMS_ITS | Data Portability ---
Author Organization [facility] Office Address [address] [address] Care Team Providers Care Ingot Header Name Role Phone GLADIS DELCID Primary Care Provider Assessment Encounter Date Assessment Date Assessment LastModified by Organization Details LastModified Time 12/06/2021 12/06/2021 The patient has been fairly well controlled on current medication. The patient has a good compliance with pain clinic regulation in regard to urine drug screen, MOHSEN, psych evaluation. We spent more than half of the time discussing the risks, benefits of the medication, how to keep it in a safe place, not to share with other people, not to mix with alcohol, or self-escalate it. [email or web address] Not available 12/10/2021 19:02:32 Plan of Treatment Reminders Order Date Submit Date Provider Last Modified By Organization Details Last Modified Time Details Appointments None recorded. Lab None recorded. Referral None recorded. Procedures None recorded. Surgeries None recorded. Imaging None recorded. Medication Orders [place] 10 mg-325 mg tablet 2021 022 PATR[facility], [address] [facility] [address] [place], [id number], 2 17:21:53 tizanidine 2 mg tablet 2021 022 PATRICK Hill [facility], [address] [facility] [address] [place], [id number], 2 16:55:31 Patient TargetsNo targets recorded. Patient Instructions Encounter Date Encounter Id Patient Instructions Last Modified By Organization Details Last Modified Time 12/06/2021 [id number] Patient is to us e non-pharmacologic measures for mild pain and use opioid as needed only for moderate pain, to use before pain is severe to be most effective. patient is to try heat, ice, rest, repositioning, tens, massage, stretching, walking, and meditation prior to opioid use. [email or web address] Not available 12/10/2021 19:03:33 Patient seen today incident to a physician s previously established diagnosis and plan of care. Follow-up care provided today under the plan of care of: Aaliyah Olson MD and supervision of: Aaliyah Olson MD. Not available 12/10/2021 19:03:54 Reason for Referral None Reported. Problems Name Problem SNOMED Code Status Onset Date Resolution Date Notes Provider Name and Address Organization Details Recorded Time Opioid dependenc e 31899647 Active 2020 (F11.20)O pioid dependenc e, uncomplic ated Not Available [facility] 2 22:51:15 Chronic pain 15111537 Active 2020 (G89.29)O ther chronic pain Not Available [facility] 2 22:51:15 Lumbar spondylos is 076750849 Active 2020 (M47.26)O ther spondylos is with radiculop athy, lumbar region Not Available [facility] 2 22:51:15 Lumbosacr al spondylos is with radiculop athy 153263343 Active 2020 (M47.27)O ther spondylos is with radiculop athy, lumbosacr al region Not Available [facility] 2 22:51:15 Spondylos is without myelopath y 51755295 Active 2020 (M47.816) Spondylos is without myelopath y or radiculop athy, lumbar region Not Available [facility] 2 22:51:15 Lumbosacr al spondylos is without myelopath y 62050842 Active 2020 (M47.817) Spondylos is without myelopath y or radiculop athy, lumbosacr al region Not Available [facility] 2 22:51:15 Degenerat ion of lumbosacr al intervert ebral disc 88859108 Active 2020 (M51.37)O ther intervert ebral disc degenerat ion, lumbosacr al region Not Available [facility] 2 22:51:15 Lumbosacr al radiculop athy 1756648 Active 2020 (M54.17)R adiculopa thy, lumbosacr al region Not Available [facility] 2 22:51:15 Muscle pain 95438100 Active 2020 (M79.1)My algia Not Available [facility] 2 22:51:15 Pre-surge ry testing Active 2020 (Z01.812) Encounter for preproced ural laborator y examinati on Not Available [facility] 2 22:51:16 Long-term current use of opiate analgesic drug 24037809873 4108 Active 2020 (Z79.891) group home (current) use of opiate analgesic Not Available [facility] 2 22:51:16 Spasm of back muscles 408284845 Active 2021 [facility] 2 16:53:49 Problem Notes None recorded. Medical Equipment None Reported. Allergies Allergen ID Allergen Name Allergen Category Reaction Reaction Severity Criticality Documentation Date Start Date Code Code System Note Provider Name and Address Organization Details Recorded Time 05433 Celebrex medicatio n Not available Not available Not available 07/11/20212020 82993 7 RxNorm React ion: Blood in stool s(Mil d) Not Available [facility] 2 22:02:48 24692 leflunomi de Not available Not available Not available Not available 07/11/20212020 07134 RxNorm React ion: reall y bad sores (Mild ) Not Available [facility] 2 22:02:48 48376 Penicilli n Not available itching mild Not available 07/11/20212020 88737 RxNorm Not Available [facility] 2 22:02:48 53162 gabapenti n medicatio n Not available Not available Not available 07/11/20212020 47185 RxNorm React ion: BAD swell ing(M ild) Not Available [facility] 2 22:02:48 67962 nortripty line hydrochlo ride medicatio n Not available Not available Not available 07/11/2021202013 0 RxNorm Not Available [facility] 2 22:02:48 68861 Naprosyn medicatio n Not available Not available Not available 07/11/20212020 2 RxNorm React ion: throa t clos ed (M ild) Not Available [facility] 2 22:02:48 19242 Macrobid medicatio n Not available Not available Not available 07/11/20212020 96963 1 RxNorm React ion: hives and itchi ng(Mi ld) Not Available [facility] 2 22:02:48 Medications Name Sig Start Date Stop Date Status Note LastModified by Organization Details LastModified Time primidone 50 mg tablet Tid 2020 active Not Available Not Available Not Avai lable tizanidin e 2 mg tablet 1 po bid and 2 at bedtime prn 2021 active Not Available Not Available Not Avai lable clindamyc in HCl 300 mg capsule active Not Available Not Available Not Available trazodone 50 mg tablet 1 po at HS 12/27 completed unable to tolerate Not Available Not Available Not Available azithromy catalina 250 mg tablet active Not Available Not Available No t Available valacyclo vir 1 gram tablet active Not Available Not Available Not Available fluconazo le 200 mg tablet Prn active Not Available Not Available Not Available prednison e 20 mg tablet active Not Available Not Available Not Available clindamyc in HCl 150 mg capsule active Not Available Not Available Not Available venlafaxi ne ER 150 mg capsule,e xtended release 24 hr active Not Available Not Available Not Available potassium chloride ER 10 mEq tablet,ex tended release active Not Available Not Available Not Available metronida zole 500 mg tablet active Not Available Not Available No t Available acyclovir 400 mg tablet active Not Available Not Available Not Available sulfameth oxazole 800 mg-trimet hoprim 160 mg tablet active Not Available Not Available Not Available hydrocodo ne 10 mg-acetam inophen 325 mg tablet Take 1 PO TID prn pain active Not Available Not Available No t Available spironola ctone 25 mg tablet daily active Not Available Not Available No t Available simvastat in 40 mg tablet daily active Not Available Not Available Not Available acyclovir 800 mg tablet active Not Available Not Available Not Available bisoprolo l fumarate 5 mg tablet daily active Not Available Not Available Not Available dicyclomi ne 20 mg tablet 3-4 times daily 2020 active Not Available Not Available Not Avai lable cephalexi n 500 mg capsule active Not Available Not Available Not Available Robaxin-7 50 750 mg tablet tid 2020 active Not Available Not Available Not Avai lable monteluka st 10 mg tablet daily active Not Available Not Available Not Available mupirocin 2 % topical ointment active Not Available Not Available Not Available zolpidem 5 mg tablet take 1 q hs active Not Available Not Available No t Available furosemid e 20 mg tablet active Not Available Not Available Not Available cefdinir 300 mg capsule active Not Available Not Available Not Available dicyclomi ne 10 mg capsule active Not Available Not Available Not Available pramipexo le 1.5 mg tablet tid active Not Available Not Available Not Available Ventolin HFA 90 mcg/actua tion aerosol inhaler Prn 2020 active Not Available Not Available Not Avai lable buspirone 15 mg tablet daily prn 06/06 completed Not Available Not Available Not Available back brace 2020 active Not Available Not Available Not Avai lable azithromy catalina 500 mg tablet active Not Available Not Available No t Available rosuvasta tin 40 mg tablet active Not Available Not Available Not Available Lyrica 50 mg capsule 1 po bid 08/03 completed Not Available Not Available Not Available levocetir izine 5 mg tablet daily active Not Available Not Available No t Available venlafaxi ne ER 150 mg tablet,ex tended release 24 hr daily 2020 active Not Available Not Available Not Avai lable Daily Multivita min with Iron 18 mg-400 mcg tablet take daily 2020 active Not Available Not Available Not Avai lable Xarelto 15 mg tablet daily active Not Available Not Available Not Available Spiriva Respimat 2.5 mcg/actua tion solution for inhalatio n As directio n 06/06 completed Not Available Not Available Not Available COVID-19 test specimen collectio n Rapid test - PLease FAX results to DX Z01.812 2021 active Not Available Not Available Not Avai lable Vitals Date Recorded Body height Body mass index (BMI) Body weight Body temperature Heart rate Oxygen saturation Oxygen saturation in Arterial blood by Pulse oximetry Systolic blood pressure Diastolic blood pressure Provider Name and Address Organization Details Last Updated DateTime 2 152.4 cm 28.1 kg/m2 12933.3 g 98.9 [degF] 62 /min 97 % 97 % 101 mm[Hg] 69 mm[Hg] [facility] 2 16:21:09 Social History None recorded. Functional Status None recorded. Mental Status None recorded. Family History Nothing Reported. Medical History No medical history recorded. Gynecological HistoryNo gynecological history recorded. Obstetrics History GPAL:G 0 P 0 0 0 0 Past Encounters Encounter ID Performer Location Encounter Start Date Encounter Closed Date Diagnosis/Indication Diagnosis SNOMED-CT Code Diagnosis ICD10 Code Diagnosis Note [id number] Claribel Ramsay, [facility] [address] [facility] [address] [place] [address] 12/06/2021 16:00:41 12/07/2021 16:37:14 Long-term current use of opiate analgesic drug 7124473985 48140 Z79.891 Patient is noted to be low risk for opioids due to: previous hx of compliance UDS reviewed on and is Appropriat e all previous MOHSEN reviewed and is Appropriat e Opioid dependence 403514 00 F11.20 Medication compliance : According to patient medication s are working well. Patient denies any side effects to medication s prescribed . There are no signs of tolerance. Pattern of medication use is as previously prescribed . The patient states he/she is taking his/her medication s as prescribed . He/She still has symptoms on a continuous basis, but they are alleviated somewhat by current meds. He/She understand s that his/her symptoms will not be completely eliminated by medication s. The patient has been instructed as to the type of medication prescribed along with directions for use. Potential side effects have been discussed, along with risks and benefits of taking this medication . He/She was instructed what to do if he/she experience s side effects, including when to discontinu e the medication and was advised to call this office in this event. Prescripti on refills: Medication s refilled for 2 months with no changes. Medication changes are as follows none Lumbosacra l spondylosis with radiculopathy 829346835 M47.27 patient says she is able to usually make this this Rx last about 2 month is using only prn would like to come back in 2 months Spasm of back muscles 20 1066800 M62.830 stable with meds, no changes Health Concerns Section Related Observation LastModified by Organization Detai ls LastModified Time None Recorded Concern Status LastModified by Organization Details LastModified Time None Recorded Advance Directives Directive None Recorded Payers Encounter Date Sequence Insurance Name Policy Number Policy Sanchez Covered Member ID Sanchez Member ID Guarantor Name 12/06/2021 1 [place] Casi Cruz [id number] Casi Cruz 12/06/2021 2 [employer]BINED INS[employer]ANCE - [employer] (MEDICARE SUPPLEMENT) Casi Cruz [id number] Casi Cruz Notes Date Note Type Note Provider Name and Address Organization Details Recorded Time 12/06/2021 text/html patient is seen for f/u visit chronic LBPhas not had surgery yet for lower back says they want to do cleaning out for the back to help with leg painsays she has been moving and not taking meds except what she had left over she said when she had only been using meds prn she had some left over so she was taking now about 1/2 bid and she says it has been helping her with norcoshe says otherwise she had been doing wellPatient is here for med refills today, reports compliance, states use of medication gives some relief and allows more physical function. Patient reports tolerating the medication well and denies any adverse effects including toxic effects, respiratory sedation, driving problems, or GI problems. [facility] 12/10/2021 19:04:04 OBGyn Episode No OBEpisode recorded.
--- OUTSIDE RECORDS SUMMARY | 2024-08-18 08:29 | XMS_ITS | Clinical Summary ---
Author Organization [facility] Address [address] [place] [address] Care Team Providers Care [employer] Team Member Name Role Phone Adryan Cooper MD Primary Care Provider + [phone] Allergies Active Allergy Reactions Criticality Noted Date Comments Cefdinir Itching,Unknown - Pa tient states they do not know rxn details High 05/28/2016 Celecoxib Other - please docum ent in the comment field,Unknown - Patient states they do not know rxn details High 05/01/2011 GI BLEED Dexamethasone Other - please docum ent in the comment field High 01/24/2022 SHAKES REALLY BAD Formoterol Anaphylaxis High 09/25/2023 Gabapentin Swelling,Unknown - Patient states they do not know rxn details High 05/28/2016 LEG SWELLING Glycopyrrolate Anaphylaxis High 09/25/2023 Leflunomide Other - please docum ent in the comment field,Unknown - Patient states they do not know rxn details High 05/28/2016 REALLY BAD SORE THROAT, TINGLING IN HANDS, FELT LIKE THROAT WAS CLOSING UP Levofloxacin Other - please docum ent in the comment field,Anxiety,Unknown - Patient states they do not know rxn details High 05/01/2011 SHAKES, CLIMBS AVERY, CANNOT SLEEP Naproxen Other - please docum ent in the comment field,Swelling,Unknown - Patient states they do not know rxn details High 05/28/2016 SORE THROAT, HANDS TINGLING, FELT LIKE THROAT WAS CLOSING UP Nitrofurantoin Hives,Itching,Unknow n - Patient states they do not know rxn details High 05/01/2011 Nortriptyline Other - please docum ent in the comment field High 01/24/2022 SWELLING, TROUBLE TALKING, CRAMPS & WEAKNESS Penicillins Hives,Itching,Unknow n - Patient states they do not know rxn details High 02/05/2017 Tramadol Other - please docum ent in the comment field Low 09/25/2023 Vancomycin Other - please docum ent in the comment field Low 09/25/2023 Medications albuterol 108 (90 Base) MCG/ACT inhaler Every 4 (Four) to 6 (six) hours. 08/28/2016 Active ASPIRIN 81 MG chewable tablet 05/28/2016 Act sp albuterol (2.5 MG/3ML) 0.083% nebulizer solution 3 mL (2.5 mg). 11/19/2022 Active budesonide (Pulmicort) 1 MG/2ML nebulizer solution INHALE 1 VIAL TWICE DAILY 07/23/2023 Active bumetanide (Bumex) 1 MG tablet 1 tablet (1 mg). 06/12/2023 Active busPIRone (Buspar) 15 MG tablet 05/28/2016 Active venlafaxine XR (Effexor-XR) 150 MG 24 hr capsule 2 capsules (300 mg). 09/11/2023 Active tiZANidine (Zanaflex) 4 MG tablet 1 tablet (4 mg). 06/26/2023 Active spironolactone (Aldactone) 25 MG tablet 1 tablet (25 mg). 09/23/2023 Active Xarelto 15 MG tablet TAKE ONE (15 MG) TABLET BY MOUTH DAILY Active pramipexole (Mirapex) 1 MG tablet 05/28/2016 Active potassium chloride ER (Micro-K) 10 MEQ ER capsule 1 capsule (10 mEq). 03/27/2023 Active montelukast (Singulair) 10 MG tablet 1 tablet (10 mg). 05/28/2016 Active levocetirizine (Xyzal) 5 MG tablet 1 tablet (5 mg). 05/28/2016 Active HYDROcodone-gudelia taminophen ([place]oe) 10-325 MG tablet 1 tablet (10 mg of hydrocodone). 05/01/2023 Active dicyclomine (Bentyl) 10 MG capsule 1 capsule (10 mg). 03/27/2023 Active dexlansoprazole (Dexilant) [address] capsule 1 capsule (60 mg). 05/28/2016 Active fluconazole (Diflucan) 100 MG tablet 1 tablet (100 mg). 08/16/2023 Active Family History Medical History Relation Name Comments Hypertension Father Cardiac disorder Mother Diabetes Mother Hypertension Mother Relation Name Status Comments Father Mother Social History Tobacco Use Types Packs/Day Years Used Date Smoking Tobacco: Former Cigarettes Tobacco Cessation:Counseling Given: Not Answered Comments Unknown Sex and Gender Information Value Date Recorded Sex Assigned at Not on file Legal Sex Female 8:24 PM EDT Gender Identity Not on file Sexual Orientation Not on file Last Filed Vital Signs Vital Sign Reading Time Taken Comments Blood Pressure 117/75 10/10/2023 10:50 AM EDT Pulse 66 10/10/2023 10:50 AM EDT Temperature - - Respiratory Rate - - Oxygen Saturation - - Inhaled Oxygen Concentration - - Weight 81.6 kg (179 lb 14.3 oz) 024 10:50 AM EDT Height 152.4 cm (5') 10/10/2023 10:50 AM EDT Body Mass Index 35.13 10/10/2023 10:50 AM EDT Plan of Treatment Health Maintenance Due Date Last Done Comments [facility]-Bone Density Scan 1960 [facility]-Depression Screening 1960 [facility]-Hepatitis C Screening 1960 [facility]-Medicare Annual Wellness (AWV) 1960 [facility]-/Child/Adol SDOH Screenings 1960 [facility]- SDOH Screenings 1976 [facility]-Adult SDOH Screenings 1976 CT Colonography 2003 Colonoscopy 2003 FIT-DNA 2003 FIT 2003 FOBT 2003 Sigmoidoscopy 2003 [facility]-Colorectal Cancer Screening 2003 [facility]-Pneumococcal Vaccine: 50 + Years (1 of 1 - PCV) 2008 [facility]-Zoster Vaccines (1 of 2) 2008 [facility]-Breast Cancer Screening 04/06/201703/12, 04/06/2015 [id number] Vaccine ( season) 2023 01/20/2021, 06/16/2020 [facility]-Influenza Vaccine (Seaso n Ended) 2024 02/22/2023 [facility]-DTaP,Tdap,and Td Vaccine s (3 - Td or Tdap) 11/09/2027 11/08/2017, 06/22/2009, 08/29/2001 [facility]-RSV Vaccine: 60+ Years o r (1 - 1-dose 75+ series) 2033 [facility]-Obesity Intervention Completed 024, 10/10/2023 HPV Vaccines Aged Out No longer eligi ble based on patient's age to complete this topic [facility]-HIB Vaccines Aged Out No longer e ligible based on patient's age to complete this topic [facility]-Hepatitis A Vaccines Aged Out No longer eligible based on patient's age to complete this topic [facility]-IPV Vaccines Aged Out No longer e ligible based on patient's age to complete this topic [facility]-Rotavirus Vaccines Aged Out No lo nger eligible based on patient's age to complete this topic Insurance MEDICARE COMBINED PRIORITY 1 CARD Care Teams [employer] Team Member Relationship Specialty Start Date End Date Adryan Cooper MD [address] [place] [address] PCP - General 07/22/20
== END 2024-08-18 23:59 | disposition home or self-care (01) ==
LOC: LAB 08:22
PROVIDERS: PCP Nurse Practitioner Family; Visit Provider Nurse Practitioner Family
DX: R79.89 Other specified abnormal findings of blood chemistry (principal)
CPT/HCPCS: 36415; 82024; 82533

== ENCOUNTER 2024-08-24 09:25 | Outpatient (CLI) | payer MEDICARE, OTHER, SELFPAY ==
--- OUTSIDE RECORDS SUMMARY | 2024-08-24 09:27 | XMS_ITS | Clinical Summary ---
Author Organization [facility] Address [address] [place] [address] Care Team Providers Care Builder Beam Name Role Phone Adryan Cooper MD Primary Care Provider + [phone] Allergies Active Allergy Reactions Criticality Noted Date [...] tablet (5 mg). 05/28/2016 Active HYDROcodone-gudelia taminophen ([place]) 10-325 MG tablet 1 tablet (10 mg [...] 2) 2008 [facility]-Breast Cancer Screening 04/06/201703/12, 04/06/2015 [id number] Vaccine ( season) 2023 01/20/2021, 06/16/2020 [facility]-Influenza [...] MEDICARE COMBINED PRIORITY 1 CARD Care Teams Builder Beam Relationship Specialty Start Date End Date Adryan Cooper MD [address] [place] [address] PCP - General 07/22/20
--- OUTSIDE RECORDS SUMMARY | 2024-08-24 09:27 | XMS_ITS ---
Laboratory report Created on: August 21, 2024 JACKELYN GRECO : 1960 Sex: Female Author Organization Unknown PROBLEMS Problems List Code Description RESULTS Laboratory Orders Date Order Code Test 2024-08-18 [id number] CORTISOL Laboratory Results Date LOINC Test Value Unit Reference Range [facility] tation 2024-08-18 2143-6 CORTISOL 5.6 UG/DL 6.2-19.4 L
--- OUTSIDE RECORDS SUMMARY | 2024-08-24 09:27 | XMS_ITS ---
Laboratory report Created on: August 21, 2024 JACKELYN GRECO : 1960 Sex: Female Author Organization Unknown PROBLEMS Problems List Code Description RESULTS Laboratory Orders Date Order Code Test 2024-08-18 534959 ACTH, PLASMA Laboratory Results Date LOINC Test Value Unit Reference Range Interpre tation 2024-08-18 2141-0 ACTH, PLASMA 12 PG/ML 7.2-63.3
--- OUTSIDE RECORDS SUMMARY | 2024-08-24 09:28 | XMS_ITS | Data Portability ---
Author Organization [facility] Office Address [address] [address] Care Team Providers Care Hearing Consultant Name Role Phone GLADIS DELCID Primary Care Provider [phone] Assessment Encounter Date Assessment Date Assessment LastModified [...] to mix with alcohol, or self-escalate it. [email or web address] Not available 12/10/2021 19:02:32 Plan of Treatment Reminders Order Date Submit Date Provider Last Modified By Organization Details Last Modified Time Details Appointments None recorded. Lab None recorded. Referral None recorded. Procedures None recorded. Surgeries None recorded. Imaging None recorded. Medication Orders Amasa 10 mg-325 mg tablet 2021 022 [facility], [address] [facility] [address] [place], [id number], 2 17:21:53 tizanidine 2 mg tablet 2021 022 [facility], [address] [facility] [address] [place], [id number], 2 16:55:31 Patient TargetsNo targets recorded. Patient Instructions Encounter Date Encounter Id Patient Instructions Last Modified By Organization Details Last Modified Time 12/06/2021 [id number] Patient is to us e non-pharmacologic measures for mild pain and use opioid as needed only for moderate pain, to use before pain is severe to be most effective. patient is to try heat, ice, rest, repositioning, tens, massage, stretching, walking, and meditation prior to opioid use. [email or web address] Not available 12/10/2021 19:03:33 Patient seen today incident to a physician s previously established diagnosis and plan of care. Follow-up care provided today under the plan of care of: Aaliyah Olson MD and supervision of: Aaliyah Olson MD. [email or web address] Not available 12/10/2021 19:03:54 Reason for Referral None Reported. Problems Name Problem SNOMED Code Status Onset Date Resolution Date Notes Provider Name and Address Organization Details Recorded Time Opioid dependenc e 01585538 Active 2020 (F11.20)O pioid dependenc e, uncomplic ated Not Available [facility] 2 22:51:15 Chronic pain 23219663 Active 2020 (G89.29)O ther chronic pain Not Available [facility] 2 22:51:15 Lumbar spondylos is 749167001 Active 2020 (M47.26)O ther spondylos is with radiculop athy, lumbar region Not Available [facility] 2 22:51:15 Lumbosacr al spondylos is with radiculop athy 142741932 Active 2020 (M47.27)O ther spondylos is with radiculop athy, lumbosacr al region Not Available [facility] 2 22:51:15 Spondylos is without myelopath y 53714741 Active 2020 (M47.816) Spondylos is without myelopath y or radiculop athy, lumbar region Not Available [facility] 2 22:51:15 Lumbosacr al spondylos is without myelopath y 79285200 Active 2020 (M47.817) Spondylos is without myelopath y or radiculop athy, lumbosacr al region Not Available [facility] 2 22:51:15 Degenerat ion of lumbosacr al intervert ebral disc 96373751 Active 2020 (M51.37)O ther intervert ebral disc degenerat ion, lumbosacr al region Not Available [facility] 2 22:51:15 Lumbosacr al radiculop athy 4030598 Active 2020 (M54.17)R adiculopa thy, lumbosacr al region Not Available [facility] 2 22:51:15 Muscle pain 26507816 Active 2020 (M79.1)My algia Not Available [facility] 2 22:51:15 Pre-surge ry testing Active 2020 (Z01.812) Encounter for preproced ural laborator y examinati on Not Available [facility] 2 22:51:16 Long-term current use of opiate analgesic drug 20887891153 4108 Active 2020 (Z79.891) alf (current) use of opiate analgesic Not Available [facility] 2 22:51:16 Spasm of back muscles 574228874 Active 2021 [facility] 2 16:53:49 Problem Notes None recorded. Medical Equipment None Reported. Allergies Allergen ID Allergen Name Allergen Category Reaction Reaction Severity Criticality Documentation Date Start Date Code Code System Note Provider Name and Address Organization Details Recorded Time 88167 Celebrex medicatio n Not available Not available Not available 07/11/20212020 52223 7 RxNorm React ion: Blood in stool s(Mil d) Not Available [facility] 2 22:02:48 89832 leflunomi de Not available Not available Not available Not available 07/11/20212020 29817 RxNorm React ion: reall y bad sores (Mild ) Not Available [facility] 2 22:02:48 50756 Penicilli n Not available itching mild Not available 07/11/20212020 18523 RxNorm Not Available [facility] 2 22:02:48 82984 gabapenti n medicatio n Not available Not available Not available 07/11/20212020 69946 RxNorm React ion: BAD swell ing(M ild) Not Available [facility] 2 22:02:48 43096 nortripty line hydrochlo ride medicatio n Not available Not available Not available 07/11/2021202013 0 RxNorm Not Available [facility] 2 22:02:48 03491 Naprosyn medicatio n Not available Not available Not available 07/11/20212020 2 RxNorm React ion: throa t clos ed (M ild) Not Available [facility] 2 22:02:48 07009 Macrobid medicatio n Not available Not available Not available 07/11/20212020 06024 1 RxNorm React ion: hives and itchi ng(Mi ld) Not Available [facility] 2 22:02:48 Medications Name Sig Start Date [...] Rapid test - PLease FAX results to [phone] DX Z01.812 2021 active Not Available Not Available Not Avai lable Vitals Date Recorded Body height Body mass index (BMI) Body weight Body temperature Heart rate Oxygen saturation Oxygen saturation in Arterial blood by Pulse oximetry Systolic blood pressure Diastolic blood pressure Provider Name and Address Organization Details Last Updated DateTime 2 152.4 cm 28.1 kg/m2 16026.3 g 98.9 [degF] 62 /min 97 % [...] SNOMED-CT Code Diagnosis ICD10 Code Diagnosis Note [id number] Claribel Ramsay, VESSEL [employer]TAIN [address] [facility] [address] [place] [address] 12/06/2021 16:00:41 12/07/2021 16:37:14 Long-term current use of opiate analgesic drug 3096371415 41228 Z79.891 Patient is noted to be low risk for opioids due to: previous hx of compliance UDS reviewed on and is Appropriat e all previous MOHSEN reviewed and is Appropriat e Opioid dependence 593575 00 F11.20 Medication compliance : According to [...] follows none Lumbosacra l spondylosis with radiculopathy 998677375 M47.27 patient says she is able to usually make this this Rx last about 2 month is using only prn would like to come back in 2 months Spasm of back muscles 20 8018945 M62.830 stable with meds, no changes Health Concerns Section Related Observation LastModified by Organization Detai ls LastModified Time None Recorded Concern Status LastModified by Organization Details LastModified Time None Recorded Advance Directives Directive None Recorded Payers Insurance Date Sequence Insurance Name Policy Number Policy Sanchez Covered Member ID Sanchez Member ID Guarantor Name 12/06/2021 1 [place] Casi Cruz [id number] Casi Cruz 12/06/2021 2 [employer]BINED [employer]ANCE - [employer] (MEDICARE SUPPLEMENT) Casi Cruz [id number] Casi Cruz Notes Date Note Type Note [...]
--- OUTSIDE RECORDS SUMMARY | 2024-08-24 09:28 | XMS_ITS | Continuity of Care Document ---
Author Organization [facility], [facility] Address [address] [place] [address] Care Team Providers Care Sheet Metal Shop Supervisor Name Role Phone GLADIS DELCID Primary Care Provider Assessment Encounter Date Assessment Date Assessment LastModified by Organization Details LastModified Time 06/25/2024 06/25/2024 Plan: I have personally reviewed this patient's MOHSEN report as per [facility] board guidelines and it was [...] mg-acetam inophen 325 mg tablet 2024 025 [facility] [address] [place], [address], 06/25/2024 11:29:57 hydrocodo ne 5 mg-acetam inophen 325 mg tablet 2024 025 [facility] [address] [place], [address], 06/25/2024 11:29:56 Patient TargetsNo targets recorded. Patient InstructionsNo instructions recorded. Reason for Referral None Reported. Problems Name Problem SNOMED Code Status Onset Date Resolution Date Notes Provider Name and Address Organization Details Recorded Time Disorder of bone and articular cartilage 626000319 Active 2015 Status: Active Not Available [facility] 6 05:37:02 Low back pain 503986893 Active Status: Active Not Available [facility] 7 06:47:46 Lumbosacr al radiculop athy 2238735 Active 2015 From Automated Load;Provi boris: PradeepEmeka; atus: Active Not Available [facility] 7 08:30:56 Problem Notes None recorded. Procedures Surgical History Date Name Laterality Status Provider Name and Address Organization Details Recorded Time 04/10/19 Date of Last Mammogram completed Am[facility] 05/04/2024 14:53:23 tonsillectomy completed [facility] 06/29/2021 11:07:23 partial hysterectomy completed [facility] 06/29/2021 11:07:41 cholecystectomy completed [facility] 06/29/2021 11:07:49 Unlisted px accessory sinus completed [facility] 06/29/2021 11:08:12 Unlisted px phrnx adnd/tnsl completed [facility] 06/29/2021 11:08:24 procedure on vein completed [facility] 06/29/2021 11:08:40 Appendectomy completed Amira [facility] 05/04/2024 14:53:09 Imaging Results None recorded. Procedure Notes None recorded. Medical Equipment None Reported. Allergies Allergen ID Allergen Name Allergen Category Reaction Reaction Severity Criticality Documentation Date Start Date Code Code System Note Provider Name and Address Organization Details Recorded Time 254591 Cipro medicatio n Not available Not available Not available 02/02/2016201156 3 RxNorm Comme nt: Creat ed By: Preet patrick Date: 2011 10:08 :22 AM; Not Available [facility] 6 12:52:49 465174 Celebrex medicatio n Not available Not available Not available 02/03/20162011 93421 7 RxNorm Comme nt: Creat ed By: Preet patrick Date: 2011 10:08 :34 AM; Not Available [facility] 6 05:46:24 285819 Levaquin medicatio n Not available Not available Not available 02/03/20162011 40808 2 RxNorm Comme nt: Creat ed By: Storm Bonner;C reate d Date: 2011 10:07 :37 AM; Not Available [facility] 6 08:06:37 018877 Macrobid medicatio n Not available Not available Not available 02/03/20162011 06104 1 RxNorm Comme nt: Creat ed By: Storm Bonner;C reate d Date: 2011 10:08 :04 AM; Not Available [facility] 6 08:06:37 030473 Product containin g penicilli n (product) medicatio n Not available Not available Not available 06/29/2021 45968 8001 [facility]ED [facility] 606314 gabapenti n medicatio n Not available Not available Not available 06/29/2021 06371 RxNorm Kailey Valerie null, [facility] 2 11:02:39 846306 leflunomi de medicatio n Not available Not available Not available 06/29/2021 20042 RxNorm Kailey Valerie null, [facility] 2 11:02:54 618455 Naprosyn medicatio n Not available Not available Not available 06/29/2021 2 RxNorm Kailey Valerie null, [facility] 2 11:03:06 479228 dextromet horphan hydrobrom mónica medicatio n Not available Not available Not available 05/04/2024 58468 0 RxNorm Amira Hogan [facility] 5 15:09:56 520599 Omnicef medicatio n Not available Not available Not available 05/04/2024 86670 RxNorm Amira Hogan null, [facility] 5 15:10:19 187402 nortripty line medicatio n Not available Not available Not available 05/04/2024 7531 RxNorm Amira Hogan [facility] 5 15:10:37 108571 Lyrica medicatio n Not available Not available Not available 05/04/2024 31165 1 RxNorm Amira Hogan [facility] 5 15:10:45 Medications Name Sig Start Date Stop Date Status Note LastModified by Organization Details LastModified Time cyclobenz aprine 10 mg tablet 12/23 completed Not Available Not Available Not Available Tussin DM 10 mg-100 mg/5 mL oral syrup active 05/04/24 per med list no longer taking Not Available Not Available Not Available fluconazo le 100 mg tablet TAKE 1 TABLET BY MOUTH ONCE A DAY FOR 14 DAYS active Not Available Not Available No t Available Aggrenox 25 mg-200 mg capsule, extended release Two times a day 12/23 completed Duration : 30 days;Cesar quency: bid;Medi cation Descript ion: aspirin- dipyrida mole; Dosage:1 ; Route:or al; refills: 0; Quantity :60 capsule, extended release Not Available Not Available Not Available clotrimaz ole 10 mg brad DISSOLVE 1 TABLET BY MOUTH 5 TIMES a DAY FOR 14 DAYS active Not Available Not Available No t Available potassium chloride ER 10 mEq capsule,e xtended release active Not Available Not Available Not Available prednison e 10 mg tablet 12/23 completed Not Available Not Available Not Available doxycycli ne hyclate 100 mg capsule TAKE 1 CAPSULE BY MOUTH TWICE DAILY active Not Available Not Available No t Available Neurontin 300 mg capsule Every night [...] Not Available prednison e 20 mg tablet TAKE 1 TABLET BY MOUTH TWICE DAILY FOR 7 DAYS active Not Available Not Available No t Available prednison e 5 mg tablet 12/23 [...] completed Frequenc y: bid;Medi cation Descript ion: ropcollettero le; Dosage:1 ; Route:or al; refills: 0; [...] Available Not Available Not Available rosuvasta tin 5 mg tablet TAKE 1 TABLET BY MOUTH ONCE A DAY active Not Available Not Available No t Available rosuvasta tin 40 mg tablet 12/23 [...] Not Available Not Available No t Available olopatadi ne 0.2 % eye drops instill 1 drop into THE affected eye(s) EVERY 24 HOURS NEEDED FOR ITCHING active Not Available Not Available No t [...] Not Available Not Available No t Available Probiotic (S.boular dii) 250 mg capsule TAKE 1 CAPSULE BY MOUTH 2 TIMES A DAY active Not Available Not Available No [...] and Address Organization Details Last Updated DateTime 152.4 cm 35.7 kg/m2 63682.4 g 94 % 94 % 2 L/min Blanca Gannon [facility] 5 11:11:53 Social History Question Answer Notes LastModified by [place] Details LastModified Time Tobacco Smoking Status Former Smoker Blanca Gannon [facility] 11/19/2023 14:27:06 What Was The Date Of Your Most Recent Tobacco Screening? 06/25/2024 [email or web address] Information not available 06/25/2024 How Much Tobacco Do You Smoke? 0.5 PPD Information not available 06/29/2021 Has Tobacco Cessation Counseling Been Provided? No Information not available 06/29/2021 How Many Years Have You Smoked Tobacco? 45 Information not available 06/29/2021 Sex: Female Functional Status Question Answer Note LastModified by [place] Details LastModified Time Do you use any illicit or recreational drugs? No Information not available 06/29/2021 Do you or have you ever used any other forms of tobacco or nicotine? No Information not available 06/29/2021 What is your level of alcohol consumption? None Information not available 06/29/2021 Are you currently employed? No disabled [place] [id number] Information not available 05/04/2024 Mental Status None recorded. Family History Relationship Description Onset Age of this Age Resolved Age Notes LastModified by Organization Details LastModified Time Unspecified Relation Malignant neoplastic disease [email or web address] Not available 04/12 14:49:35 Unspecified Relation Diabetes mellitus [email or web address] Not available 04/12 14:49:35 Mother Familial cancer of breast [email or web address] Not available 04/12 14:49:35 Mother Malignant tumor of pancreas Not available 2024 14:51:13 Mother Chronic obstructive pulmonary disease [email or web address] Not available 2024 14:51:40 Father Hypercholest david [email or web address] Not available 2024 14:51:58 Medical History Condition Response Other N Thyroid Disease N Breast Cancer N Blood Transfusion N COPD Y Breast Problem Y Osteoporosis/Osteopenia Y Heart Attack ([place]) N Mental Illness Y Diabetes N Ovarian Cancer N Arthritis Y Congestive Heart Failure (CHF) Y Eczema N Stroke Y Diverticulitis N Asthma Y Crohn's Disease N Sleep Apnea Y Liver Disease N Heart Disease N Fibromyalgia Y Kidney Disease N Gynecological History Statement/Question [...] SNOMED-CT Code Diagnosis ICD10 Code Diagnosis Note [id number] RAOUL KINSEY MD [facility] [address] [place] [address] 06/25/2024 11:02:23 06/25/2024 11:26:16 Chronic low back pain 825395004 M54.50 Degenerati on of lumbar intervertebral disc 62725387 M51.362 Spinal hilda nosis of lumbar region 73543337 M48.062 Health Concerns Section Related Observation LastModified by Organization Detai ls LastModified Time None Recorded Concern Status LastModified by Organization Details LastModified Time None Recorded Payers Encounter Date Sequence Insurance Name Policy Number Policy Sanchez Covered Member ID Sanchez Member ID Guarantor Name 06/25/2024 1 [place] Casi Cruz [id number] Casi Cruz 06/25/2024 2 [employer]BINED INS[employer]ANCE - [employer] (MEDICARE SUPPLEMENT) Casi Cruz [id number] Casi Cruz Notes Date Note Type Note [...] 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 CBD-Denied. RAOUL KINSEY MD [facility] [place], [address], [facility] 06/25/2024 12:12:21 OBGyn Episode No OBEpisode recorded.
--- OUTSIDE RECORDS SUMMARY | 2024-08-24 09:28 | XMS_ITS | Data Portability ---
Author Organization SANDER NASEEM Rivera [facility] Address [address] [place] [address] Care Team Providers Care Manager Salt Name Role Phone GLADIS DELCID Primary Care Provider Assessment Encounter Date Assessment Date Assessment LastModified by Organization Details LastModified Time 02/20/2024 02/20/2024 Plan: I have personally reviewed this patient's MOHSEN report as per [facility] board guidelines and it was found to [...] [email or web address] Not available 02/20/2024 17:06:39 04/14/2024 04/14/2024 Jackelyn Cruz is a 63-year-old female on oxygen with a history of COPD, TIAs, and CHF who is status post L1 and L2 kyphoplasties with Dr. Roque on 10/14/2023 and L2-[address] Fernández 11/28/2021 presenting to the clinic for a follow-up. When studying her MRI from October 2023 at [place], there is no clear cause for the [...] questions, concerns, or new or worsening symptoms. Not available 04/14/2024 13:41:43 04/16/2024 04/16/2024 Plan: I have personally reviewed this patient's MOHSEN report as per [facility] board guidelines and it was found to [...] reviewed this patient's MOHSEN report as per [place] medical board guidelines and it was found [...] inophen 325 mg tablet 2024 025 [facility], [address], [address], 06/25/2024 11:29:57 hydrocodo ne 5 mg-acetam inophen 325 mg tablet 2024 025 [facility], [address], [address], 06/25/2024 11:29:56 hydrocodo ne 5 mg-acetam inophen 325 mg tablet 2024 025 [facility], [address], [address], 04/16/2024 11:30:43 hydrocodo ne 5 mg-acetam inophen 325 mg tablet 2024 025 [facility]91, [address], [address], 04/16/2024 11:30:42 hydrocodo ne 5 mg-acetam inophen 325 mg tablet 2023 [facility] [address], [address], 02/20/2024 17:05:18 Patient TargetsNo targets recorded. Patient InstructionsNo instructions recorded. Reason for Referral None Reported. Results Created Date Observation Date Name Description Value Unit Range Abnormal Flag Note LastModifiedBy Organization Detail LastModifiedTime 04/14/1904/14/2024 XR, lumbo sacra l spine , 2 or 3 view, bendi ng only [address] [address] Patishashi t Name: MARTHA Minaya t : 959 Patien t Orderi ng Provid er: LIA ROQUE [...] Edin Luke MD on 04/14/19 12:15 PM [email or web address] [facility] [address], [address], 06/23/2024 15:57:27 Result Notes Documentation Provider Name and Address Organization Details Recorded Time Xr, Lumbosacral Spine, 2 Or 3 View, Bending Only : [address] [address] Patient Name: JACKELYN CRUZ Patient : 1960 Patient Ordering Provider: LIA ROQUE EXAM DATE: 04/14/2024 EXAM: XR LUMBAR SPINE FLEX/EXT ONLY CLINICAL INFORMATION: Back pain. IMAGES PROVIDED: Lateral views of the lumbar spine in flexion and extension. COMPARISON: 01/10/2024 FINDINGS: Previous L1 and L2 compression deformities which have been treated with kyphoplasty. Stable appearance with no complications indicated. Mild diffuse degenerative endplate spurring. Disc spaces are well-maintained. No abnormality of alignment is seen. No instability is seen on flexion or extension. No radiographic evidence of injury is noted. IMPRESSION: Mild DDD with previous L1 and L2 kyphoplasty procedures. No instability. Interpreted By: Edin Luke MD ROQUE MD [address] [place] [address], [phone] 06/23/2024 15:57:27 Problems Name Problem SNOMED Code Status Onset Date Resolution Date Notes Provider Name and Address Organization Details Recorded Time Disorder of bone and articular cartilage 663929000 Active 2015 Status: Active Not Available [facility] 6 05:37:02 Low back pain 497471425 Active Status: Active Not Available [facility] 7 06:47:46 Lumbosacr al radiculop athy 9765381 Active 2015 From Automated Load;Provi boris: Lux Fernández;St atus: Active Not Available Critical [facility] hospital 7 08:30:56 Problem Notes None recorded. Procedures Surgical History Date Name Laterality Status Provider Name and Address Organization Details Recorded Time 04/10/19 Date of Last Mammogram completed Amira Hogan [facility] 05/04/2024 14:53:23 tonsillectomy completed [facility] 06/29/2021 11:07:23 partial hysterectomy completed [facility] 06/29/2021 11:07:41 cholecystectomy completed [facility] 06/29/2021 11:07:49 Unlisted px accessory sinus completed [facility] 06/29/2021 11:08:12 Unlisted px phrnx adnd/tnsl completed Kailey Padilla [facility] 06/29/2021 11:08:24 procedure on vein completed Kailey Arroyo [facility] 06/29/2021 11:08:40 Appendectomy completed Amira Samira [facility] 05/04/2024 14:53:09 Imaging Results None recorded. Procedure Notes None recorded. Medical Equipment None Reported. Allergies Allergen ID Allergen Name Allergen Category Reaction Reaction Severity Criticality Documentation Date Start Date Code Code System Note Provider Name and Address Organization Details Recorded Time 22101015 Cipro medicatio n Not available Not available Not available 02/02/2016201156 3 RxNorm Comme nt: Creat ed By: Storm Bonner;C reate d Date: 2011 10:08 :22 AM; Not Available [facility] 6 12:52:49 522391 Celebrex medicatio n Not available Not available Not available 02/03/20162011 04961 7 RxNorm Comme nt: Creat ed By: Storm Bonner;C reate d Date: 2011 10:08 :34 AM; Not Available [facility] 6 05:46:24 459917 Levaquin medicatio n Not available Not available Not available 02/03/20162011 76664 2 RxNorm Comme nt: Creat ed By: Storm Bonner;C reate d Date: 2011 10:07 :37 AM; Not Available [facility] 6 08:06:37 007486 Macrobid medicatio n Not available Not available Not available 02/03/20162011 79047 1 RxNorm Comme nt: Creat ed By: Storm Bonner;C reate d Date: 2011 10:08 :04 AM; Not Available Critical [facility] hospital 6 08:06:37 147286 Product containin g penicilli n (product) medicatio n Not available Not available Not available 06/29/2021 95928 8001 SNOMED Kailey haney [facility] 11:02:22 368597 gabapenti n medicatio n Not available Not available Not available 06/29/2021 29949 RxNorm [facility] 2 11:02:39 170441 leflunomi de medicatio n Not available Not available Not available 06/29/2021 06339 RxNorm Kailey [facility] 2 11:02:54 967096 Naprosyn medicatio n Not available Not available Not available 06/29/2021 2 RxNorm Kailey [facility] 2 11:03:06 656778 dextromet horphan hydrobrom mónica medicatio n Not available Not available Not available 05/04/2024 67387 0 RxNorm Amira Hogan [facility] 5 15:09:56 616279 Omnicef medicatio n Not available Not available Not available 05/04/2024 34208 RxNorm Amira Hogan [facility] 5 15:10:19 514484 nortripty line medicatio n Not available Not available Not available 05/04/2024 7531 RxNorm Amira Hogan [facility] 5 15:10:37 425923 Lyrica medicatio n Not available Not available Not available 05/04/2024 58942 1 RxNorm Amira [facility] 5 15:10:45 Medications Name Sig Start Date [...] Updated DateTime 04/14/2024 152.4 cm 34.2 kg/m2 68641.6 6 g 124 mm[Hg] 84 mm[Hg] [facility] 13:20:34 Date Recorded Body height Body mass index (BMI) Body weight Oxygen saturation Oxygen saturation in Arterial blood by Pulse oximetry Inhaled oxygen flow rate Heart rate Systolic blood pressure Diastolic blood pressure Provider Name and Address Organization Details Last Updated DateTime 5 152.4 cm 35.3 kg/m2 87920.2 2 g 96 % 96 % 2 L/min 70 /min 120 mm[Hg] 68 mm[Hg] Blanca Gannon [facility] 5 11:13:33 Date Recorded Body height Body mass index (BMI) Body weight Heart rate Oxygen saturation Oxygen saturation in Arterial blood by Pulse oximetry Systolic blood pressure Diastolic blood pressure Provider Name and Address Organization Details Last Updated DateTime 5 152.4 cm 35.3 kg/m2 12702.4 3 g 69 /min 86 % 86 % 110 mm[Hg] 50 mm[Hg] Amira Hogan [facility] 5 15:03:21 Date Recorded Body height Body mass index (BMI) Body weight Oxygen saturation Oxygen saturation in Arterial blood by Pulse oximetry Inhaled oxygen flow rate Provider Name and Address Organization Details Last Updated DateTime 5 152.4 cm 35.7 kg/m2 99648.4 g 94 % 94 % 2 L/min Blanca Gannon [facility] 5 11:11:53 Date Recorded Body height Oxygen saturation Oxygen saturation in Arterial blood by Pulse oximetry Inhaled oxygen flow rate Heart rate Systolic blood pressure Diastolic blood pressure Provider Name and Address Organization Details Last Updated DateTime 4 152.4 cm 97 % 97 % 2 L/min 61 /min 128 mm[Hg] 82 mm[Hg] Blanca Gannon [facility] 4 12:51:26 Social History Question Answer Notes LastModified by [employer] ion Details LastModified Time Tobacco Smoking Status Former Smoker Blan[facility] 11/19/2023 14:27:06 What Was The Date Of [...] 06/29/2021 Are you currently employed? No disabled [email or web address] Information not available 05/04/2024 Mental Status None recorded. Family History Relationship Description Onset Age of this Age Resolved Age Notes LastModified by Organization Details LastModified Time Unspecified Relation Malignant neoplastic disease [email or web address] Not available 04/12 14:49:35 Unspecified Relation Diabetes mellitus [email or web address] Not available 04/12 14:49:35 Mother Familial cancer of breast Not available 04/12 14:49:35 Mother Malignant tumor of pancreas [email or web address] Not available 2024 14:51:13 Mother Chronic obstructive pulmonary disease [email or web address] Not available 2024 14:51:40 Father Hypercholest erolemia [email or web address] Not available 2024 14:51:58 Medical History Condition Response Ovarian Cancer N Diabetes N Other N Thyroid Disease N Arthritis Y Blood Transfusion N Breast Cancer N Congestive Heart Failure (CHF) Y Eczema N Stroke Y Diverticulitis N Asthma Y COPD Y Crohn's Disease N Breast Problem Y Osteoporosis/Osteopenia Y Sleep Apnea Y Liver Disease N Heart Disease N Heart Attack (NM) N Fibromyalgia Y Mental Illness Y Kidney [...] SNOMED-CT Code Diagnosis ICD10 Code Diagnosis Note [id number] LUX FERNÁNDEZ MD [facility] [address] [place] [address] 01/18/2020 12:49:41 01/18/2020 15:14:53 Lumbar radiculopathy 456978202 M54.16 Time spent reviewing images, discussing the diagnosis and coordinati ng care: 30min [id number] DILIP BILL PA-C [facility] [address] [place] [address] 06/29/2021 10:15:51 07/04/2021 09:16:52 Lumbar radiculopathy 204340288 M54.16 [id number] GLENDA TUTTLE PA-C [facility] [address] [place] [address] 11/20/2021 10:07:54 11/27/2021 14:55:22 Lumbar spondylosis 819890005 M47.896 [id number] LUX FERNÁNDEZ MD SURGERY SCHEDULE [address] [place] [address] 02/09/2022 09:11:14 02/09/2022 10:30:20 [id number] LUX FERNÁNDEZ MD [facility] [address] [place] [address] 02/14/2022 13:50:04 02/26/2022 16:15:54 [id number] LUX FERNÁNDEZ MD [facility] [address] [place] [address] 03/15/2022 09:39:55 03/16/2022 16:35:55 Postoperative care 360007668 Z48.89 [id number] JUANITA VALDERRAMA APRN [facility] [address] [place] [address] 10/03/2023 12:25:46 10/04/2023 04:49:26 Lumbar radiculopathy 642928239 M54.16 Compressio n fracture of lumbar spine 026284788 M48.56XA Impairment of balance 38 2944614 R26.89 Poor manual dexterity 30 0858507 R29.898 [id number] LIA ROQUE MD SURGERY SCHEDULE [address] [place] [address] 11/01/2023 13:01:26 11/05/2023 10:00:09 [id number] RAOUL KINSEY MD [facility] [address] [place] [address] 1 11/19/2023 13:39:01 11/19/2023 15:00:53 Chronic low back pain 916127506 M54.50 Degenerati on of lumbar intervertebral disc 06099065 M51.36 Spinal hilda nosis of lumbar region 89580730 M48.062 [id number] RAOUL KINSEY MD [facility] [address] [place] [address] 11/26/2023 12:42:31 11/26/2023 12:56:48 Chronic low back pain 716143699 M54.50 Degenerati on of lumbar intervertebral disc 35426088 M51.36 Spinal hilda nosis of lumbar region 74375464 M48.062 [id number] BIANCA ESPAÑA PA-C [facility] [address] [place] [address] 11/26/2023 13:56:01 11/27/2023 04:57:02 Postoperative visit 734592847 Z48.89 [id number] RAOUL KINSEY MD [facility] [address] [place] [address] 12/24/2023 12:33:05 12/24/2023 13:02:45 Chronic low back pain 332413157 M54.50 The prescripti on to be filled on 12/27/23 was cancelled. The prescripti on sent to [facility] was cancelled. Degenerati on of lumbar intervertebral disc 06554136 M51.362 Spinal hilda nosis of lumbar region 45287591 M48.062 [id number] BIANCA ESPAÑA PA-C [facility] [address] [place] [address] 01/10/2024 09:40:04 01/11/2024 04:31:11 Lumbar radiculopathy 059030365 M54.16 [id number] RAOUL KINSEY MD [facility] [address] [place] [address] 02/20/2024 12:35:26 02/20/2024 12:58:34 Chronic low back pain 392930090 M54.50 Degenerati on of lumbar intervertebral disc 42284690 M51.362 Spinal hilda nosis of lumbar region 04338487 M48.062 [id number] BIANCA ESPAÑA PA-C [facility] [address] [place] [address] 04/14/2024 13:13:45 04/15/2024 08:29:03 Lumbar radiculopathy 172563803 M54.16 [id number] RAOUL KINSEY MD [facility] [address] [place] [address] 04/16/2024 11:04:40 04/16/2024 11:22:08 Chronic low back pain 433413033 M54.50 Degenerati on of lumbar intervertebral disc 47592987 M51.362 Spinal hilda nosis of lumbar region 44185506 M48.062 [id number] NIHARIKA BOCANEGRA, SIMULATION [place] [address] [place] [address] 1 05/04/2024 14:30:28 05/10/2024 04:08:11 Inversion of right nipple 9110989703 1750066 N64.59 Patient and I reviewed her medical [...] an as-needed basis. Decreased capillary filling time 19092670 R94.39 [id number] RAOUL KINSEY MD [facility] [address] [place] [address] 1 06/25/2024 11:02:23 06/25/2024 11:26:16 Chronic low back pain 440522320 M54.50 Degenerati on of lumbar intervertebral disc 41541565 M51.362 Spinal hilda nosis of lumbar region 62934724 M48.062 Health Concerns Section Related Observation LastModified by Organization Detai ls LastModified Time None Recorded Concern Status LastModified by Organization Details LastModified Time None Recorded Advance Directives Directive None Recorded Payers Insurance Date Sequence Insurance Name Policy Number Policy Sanchez Covered Member ID Sanchez Member ID Guarantor Name 08/22/2024 1 [place] Jackelyn Cruz [id number] Jackelyn Cruz 10/15/2023 2 COMBINED INSURANCE - [employer] (MEDICARE SUPPLEMENT) Jackelyn Curz [id number] Jackelyn Cruz Notes Date Note Type Note Provider [...] 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 CBD-Denied. RAOUL [place]IN[place], [address], [place] [facility] 02/20/2024 17:07:14 04/14/2024 text/html Jackelyn Cruz i s a 63-year-old female on [...] cannula during the day. BIANCA ESPAÑA PA-C [address] [place] [address], [phone], [facility] 04/14/2024 13:42:27 04/16/2024 text/html The pt complains [...] 6 months ago. CBD-Denied. RAOUL KINSEY MD [address] [place] [address], [phone], [facility] 04/16/2024 11:47:45 05/04/2024 text/html Jackelyn Cruz i s a 63 yo female, [...] Her mammogram was completed last month at [facility] (images and reports in PACS), resulted [...] past. Lifetime risk = 3.85% by Raisa, vArnulfo. 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 CBD-Denied. RAOUL KINSEY MD [facility] [place], [address], [facility] 06/25/2024 12:12:21 OBGyn Episode No OBEpisode recorded.
== END 2024-08-24 23:59 | disposition home or self-care (01) ==
LOC: LAB 09:26
PROVIDERS: PCP Nurse Practitioner Family; Visit Provider Nurse Practitioner Family
DX: R79.89 Other specified abnormal findings of blood chemistry (principal)
CPT/HCPCS: 82530

== ENCOUNTER 2024-09-18 14:31 | Outpatient (CLI) | payer MEDICARE, OTHER, SELFPAY ==
--- OUTSIDE RECORDS SUMMARY | 2024-09-18 14:34 | XMS_ITS | Encounter Summary ---
Author Organization [employer] ([place], [place], [place], [place]) Address [address] [place] [address] Care Team Providers Care Garnett Machine Operator Name Role Phone OrozcoSandra randhawa RUBEN Primary Care Provider Encounter Details Date Type Department Care Team (Late st Contact Info) Description 01/25/2020 Transcribed Document [facility] Family Medicine [address] [place] [address] ProviderAide MD [address] [place] [address] Social History Tobacco Use Types Packs/Day Years Used Date Smoking Tobacco: Never Assessed Comments Unknown Sex and Gender Information Value Date Recorded Sex Assigned at Not on file Legal Sex Female 2:35 PM CDT Gender Identity Not on file Sexual Orientation Not on file documented as of this encounter Miscellaneous Notes * Cerner Conversion Note - Historical ProviderMD - 01/25/2020 6:55 AM PRODUCTION SUPV DATE OF ADMISSION: 01/22/2020 HISTORY OF PRESENT [...] applying ice and heat, physical therapy, exercise, hlwu-xfd-wxwnmie medication, bed rest going to Pain Clinic, [...] pain psychology evaluation in our clinic with SAROJ-R, which is documented in the chart. I [...] to contact her primary physician and her canvass manager to see if we can hold the [...] visit and the patient has been afebrile. /[id number] Karim Chaparro, MD, JELANI Pain Certified KR/AQ / KR / MODL CC: MD Sandra Valero APRN Electronically signed by Interface, [facility] Conversion Dam Tender Assistant Cerner at 06/27/2022 8:04 AM CDT documented in this encounter Plan of Treatment Not on file documented as of this encounter Visit Diagnoses Not on filedocumented in this encounter Care Teams Garnett Machine Operator Relationship Specialty Start Date End Date Sandra Orozco, RUBEN [address] [address] PCP - General Nurse Practitioner 01/24/22 documented as of this encounter
--- OUTSIDE RECORDS SUMMARY | 2024-09-18 14:34 | XMS_ITS | Encounter Summary ---
Author Organization [employer] ([place], [place], [place], [place]) Address [address] [place] [address] Care Team Providers Care Outside Energy Sales Representatives Name Role Phone Gladis Orozco APRN Primary Care Provider [phone] Encounter Details Date Type Department Care Team (Late st Contact Info) Description 05/19/2021 Transcribed Document [facility] [place] [address] [place] [address] ProviderAide MD [address] [place] [address] Social History Tobacco Use Types Packs/Day Years Used Date Smoking Tobacco: Never Assessed Utilities Answer Date Recorded In the past [...] your living situation today? I have a [facility] to live 10/13/2023 Think about the [...] Do you speak a language other than [facility]? No 10/13/2023 Do you want help with school or training? For example, starting or completing job training or getting a high school diploma, GED or equivalent. No 10/13/2023 Physical Activity Answer Date Recorded Number of minutes of exercise per week 0 10/13/2023 Self Management Answer Date Recorded Because of a physical, [...] you used [place] legal drugs? Never 10/13/2023 Mental Health Answer Date Recorded Calculation of above two rows 6 Comments Unknown Sex and Gender Information Value Date Recorded Sex Assigned at Not on file Legal Sex Female 2:35 PM CDT Gender Identity Not on file Sexual Orientation Not on file COVID-19 Exposure Response Date Recorded In the last 10 days, have yo u been in contact with someone who was confirmed or suspected to have Coronavirus/COVID-19? No / Unsure 01/31/2022 10:02 AM EST documented as of this encounter Miscellaneous Notes * Cerner Conversion Note - Historical ProviderMD - 05/19/2021 12:58 PM POWERHOUSE ENGINEER [place] [address] [address] [place] [id number] CASI GRECO :1960 Visit Time:05/19/2021 Your Visit Summary Your Care Team Admitting Physician - GERMÁN BERTRAND MD-CAR Attending Physician - GERMÁN BERTRAND MD-CAR Primary Care Physician - GLADIS OROZCO APRN-FAM [...] Follow-up as instructed Follow-up as instructed Where: [address] [place] [address]- Medications What How Much When Instructions Next [...] Fats and oils Meat fat, or shortening. [place]irdwood butter, hydrogenated oils, palm oil, coconut oil, [...] provider. Document Revised: 05/01/2018 Document Reviewed: 04/04/2018 [employer] Patient Education ?? 2020 [employer]. It???s Cold and Flu Season ??? How [...] to thoroughly wash your hands, use hand auto transmission mechanic. While handwashing is best, hand auto transmission mechanic helps to reduce the spread of germs when you are out and about. Have hand auto transmission mechanic in several locations so you can always [...] keep people from also getting sick. Don???t [place] It! Sneezing this time of year is [...] a PCP near you, please visit [employer] [email or web address]/ [email or web address]s.org. May 15, 2019 Emergency Awareness and Preventative [...] Assistance with quitting is available by contacting 6-824-ENDYNOW. This is a free resource providing counseling, support, and referral. Or you may contact your personal physician. [place] Suicide Prevention Lifeline: The National Suicide Prevention [...] CPR? There are two easy steps: Call 11-09-1 if you see a teen or adult [...] was given the opportunity to ask questions. Patient/Journeyman Patternmaker Name: Patient/Journeyman Patternmaker Signature: Relationship to Patient: Clinician/Hospital Journeyman Patternmaker Signature: Date: documented in this encounter Plan of Treatment Not on file documented as of this encounter Visit Diagnoses Not on filedocumented in this encounter Care Teams Outside Energy Sales Representatives Relationship Specialty Start Date End Date Gladis Orozco APRN [address] [address] PCP - General Nurse Practitioner 01/24/22 documented as of this encounter
--- OUTSIDE RECORDS SUMMARY | 2024-09-18 14:34 | XMS_ITS | Clinical Summary ---
Author Organization [facility] Address [address] [place] [address] Care Team Providers Care Media Developer Name Role Phone Adryan Cooper MD Primary Care Provider + [phone] Allergies Active Allergy Reactions Criticality Noted Date [...] tablet (5 mg). 05/28/2016 Active HYDROcodone-gudelia taminophen ([place]) 10-325 MG tablet 1 tablet (10 mg [...] 2) 2008 [facility]-Breast Cancer Screening 04/06/201703/12, 04/06/2015 [id number]-30 Vaccine ( season) 2023 01/20/2021, 06/16/2020 [facility]-Influenza Vaccine (#1) 2024 02/22/2023 [facility]-DTaP,Tdap,and Td Vaccine s (3 [...] MEDICARE COMBINED PRIORITY 1 CARD Care Teams Media Developer Relationship Specialty Start Date End Date Adryan Cooper MD [address] [place] [address] PCP - General 07/22/20
--- OUTSIDE RECORDS SUMMARY | 2024-09-18 14:34 | XMS_ITS | Encounter Summary ---
Author Organization [employer] ([place], [place], [place], [place]) Address [address] [place] [address] Care Team Providers Care Electrical Drafter Name Role Phone Sandra Orozco APRN Primary Care Provider [phone] Encounter Details Date Type Department Care Team (Late st Contact Info) Description 05/19/2021 Transcribed Document [facility] [place] [address] [place] [address] ProviderAide MD [address] [place] [address] Social History Tobacco Use Types [...] your living situation today? I have a [facility] place to live 10/13/2023 Think about [...] Do you speak a language other than Setswana at [facility]? No 10/13/2023 Do you want [...] Notes * Cerner Conversion Note - Historical Provider, - 05/19/2021 2:36 PM KNIFE CUTTER Nursing Discharge Summary Entered On: 05/19/2021 14:37 [...] DIFFICLTY AZUCENA PALACIO - 05/19/2021 14:36 EST documented in this encounter Plan of Treatment Not on file documented as of this encounter Visit Diagnoses Not on filedocumented in this encounter Care Teams Electrical Drafter Relationship Specialty Start Date End Date Sandra Orozco APRN [address] [id number] PCP - General Nurse Practitioner 01/24/22 documented as of this encounter
--- OUTSIDE RECORDS SUMMARY | 2024-09-18 14:34 | XMS_ITS | Encounter Summary ---
Author Organization [employer] ([place], [place], [place], [place]) Address [address] [place] [address] Care Team Providers Care Gin Operator Name Role Phone Sandra Orozco APRN Primary Care Provider [phone] Encounter Details Date Type Department Care Team (Late st Contact Info) Description 05/19/2021 Transcribed Document [facility] [place] Family Medicine [address] [place] [address] ProviderAide MD [address] [place] [address] Social History Tobacco Use Types [...] Do you speak a language other than Sami at [facility]? No 10/13/2023 Do you want help with [...] Conversion Note - Historical Provider, - 05/19/2021 12:56 PM CLINICAL INTERVIEWER Patient Education Materials Follows: It???s Cold and [...] to thoroughly wash your hands, use hand accounting intern. While handwashing is best, hand accounting intern helps to reduce the spread of germs when you are out and about. Have hand accounting intern in several locations so you can always [...] keep people from also getting sick. Don???t [place] It! Sneezing this time of year is [...] visit HYPERLINK http://[email or web address]s.org/ www.catholichealthinitiatives.org. May 15, 2019 Nutrition Heart-Healthy Eating Plan [...] Fats and oils Meat fat, or shortening. [place] butter, hydrogenated oils, palm oil, coconut oil, [...] provider. Document Revised: 05/01/2018 Document Reviewed: 04/04/2018 [employer] Patient Education ? 2020 [employer] documented in this encounter Plan of Treatment Not on file documented as of this encounter Visit Diagnoses Not on filedocumented in this encounter Care Teams Gin Operator Relationship Specialty Start Date End Date Sandra Orozco, ROADING ENGINEER [address] [phone] PCP - General Nurse Practitioner 01/24/22 documented as of this encounter
--- OUTSIDE RECORDS SUMMARY | 2024-09-18 14:34 | XMS_ITS | Encounter Summary ---
Author Organization [employer] ([place], [place], [place], [place]) Address [address] [place] [address] Care Team Providers Care Fuse Spooler Name Role Phone OrozcoSandra randhawa RUBEN Primary Care Provider Encounter Details Date Type Department Care Team (Late st Contact Info) Description 03/01/2020 Transcribed Document [facility] [place] Family Medicine [facility] [place] [address] ProviderAide MD [address] [place] [address] Social History Tobacco Use Types Packs/Day Years Used Date Smoking Tobacco: Never Assessed Comments Unknown Sex and Gender Information Value Date Recorded Sex Assigned at Not on file Legal Sex Female 2:35 PM CDT Gender Identity Not on file Sexual Orientation Not on file documented as of this encounter Miscellaneous Notes * Cerner Conversion Note - Historical MD Derek - 03/01/2020 11:34 AM HYDROELECTRIC PLANT MAINTAINER DATE OF PROCEDURE: 03/01/2020 SURGEON: Noemi Mayfield [...] 18-gauge Tuohy needle was advanced by the mafb-pf-[id number] technique under direct fluoroscopic guidance into the [...] visit and the patient has been afebrile. /[id number] Noemi Mayfield MD, JELANI Pain Certified DELILAH/ANTHONY / KR / MODL /[id number] documented in this encounter Plan of Treatment Not on file documented as of this encounter Visit Diagnoses Not on filedocumented in this encounter Care Teams Fuse Spooler Relationship Specialty Start Date End Date Sandra Orozco, POWDER MIXER [address] [place] [address] PCP - General Nurse Practitioner 01/24/22 documented as of this encounter
--- OUTSIDE RECORDS SUMMARY | 2024-09-18 14:34 | XMS_ITS | Clinical Summary ---
Author Organization [employer] ([place], [place], [place], [place]) Address [address] [place] [address] Care Team Providers Care Hammer Operator Name Role Phone OrozcoKrystenrafael MIRANDA Primary Care [...] drink = 0.6 oz pur e alcohol) Utilities Answer Date Recorded In the past [...] your living situation today? I have a [facility] place to live 10/13/2023 Think about [...] Do you speak a language other than Vietnamese at [facility]? No 10/13/2023 Do you want help [...] Calculation of above two rows 6 Comments No Sex and Gender Information Value [...] and Screening (12+) 10/13/2024 10/14/2023 Influenza Vaccine (#1) 2024 02/22/2023 DTAP/TDAP/TD VACCINES (4 - T d or Tdap) 11/09/2027 11/08/2017, 06/22/2009, 08/29/2001 Medical Devices Implanted Type Area Apartment Leasing Manager Device Identifier Shelf Expiration Date Model / Serial / Lot Sealant Durasl Spine 5ml [id number] - [id number] Implanted:Qty: 1 on 01/31/2022 by Emeka Fernández MD at [facility] IMPLANTS N/A: Back [employer] 07/09/[id number] / / [id number] Cement Spinal Confidence 2839-10-000 - [id number] Implanted:Qty: 2 on 10/14/2023 at [facility] IMPLANTS N/A: Back J &J:DEPUY:DEPUY SPINE 06/08/2025 [id number] Insurance MEDICARE PART A B GENERIC COMMERCIAL Advance Directives For more information, please contact: [phone] Documents on File Type Date Recorded Patient Felt Hat Steamer Expl anation Advance Directives and Livin g Will 01/31/2022 8:44 AM * Full Code (Latest Code Status on File) Date Activated Date Inactivated Comments 10/12/2023 11:08 PM 10/15/2023 6:49 PM * Full Code Date Activated Date Inactivated Comments 01/31/2022 5:41 PM 02/01/2022 4:50 PM Healthcare Agents on File Name Relationship Healthcare Agent [facility] Communication Luis Anthony Son First Alternate Healthcare Decision-Maker Care Teams Hammer Operator Relationship Specialty Start Date End Date Sandra Orozco APRN [address] [address] PCP - General Nurse Practitioner 01/24/22
--- OUTSIDE RECORDS SUMMARY | 2024-09-18 14:34 | XMS_ITS | Encounter Summary ---
Author Organization [employer] ([place], [place], [place], [place]) Address [address] [place] [address] Care Team Providers Care Director Of Market Research Name Role Phone Sandra Orozco APRN Primary Care Provider [phone] Encounter Details Date Type Department Care Team (Late st Contact Info) Description 05/19/[address] [facility] [place] [address] [place] [address] ProviderAide MD [address] [place] [address] Social History Tobacco Use Types [...] your living situation today? I have a [facility] place to live 10/13/2023 Think about the [...] Do you speak a language other than Irish at [facility]? No 10/13/2023 Do you want help [...] Conversion Note - Historical Provider, - 05/19/2021 12:57 PM LANDSCAPE ARCHITECTURE PROFESSOR Stroke/Warfarin Instructions Entered On: 05/19/2021 12:57 EST Performed On: 05/19/2021 12:57 EST by AZUCENA PALACIO Stroke/Warfarin Instructions Stroke/TIA Discharge Ins : N/A Warfarin Discharge Ins : N/A AZUCENA PALACIO - 05/19/2021 12:57 EST Electronically signed by Kamron [facility] Conversion Alteration Workroom Supervisor Cerner at 06/27/2022 8:14 AM CDT documented in this encounter Plan of Treatment Not on file documented as of this encounter Visit Diagnoses Not on filedocumented in this encounter Care Teams Director Of Market Research Relationship Specialty Start Date End Date Sandra Orozco APRN [address] [phone] PCP - General Nurse Practitioner 01/24/22 documented as of this encounter
--- OUTSIDE RECORDS SUMMARY | 2024-09-18 14:34 | XMS_ITS | Referral Summary ---
Author Organization [employer] ([place], [place], [place], [place]) Address [address] [place] [address] Care Team Providers Care Pad Cutter Name Role Phone OrozcoKrystenrafael MIRANDA Primary Care [...] your living situation today? I have a [facility] place to live 10/13/2023 Think about [...] Do you speak a language other than Faroese at [facility]? No 10/13/2023 Do you want help with [...] on file Medical Devices Implanted Type Area Shuttleless Loom Weaver Device Identifier Shelf Expiration Date Model / Serial / Lot Sealant Durasl Spine 5ml [id number] - [id number] Implanted:Qty: 1 on 01/31/2022 by Emeka Fernández MD at [facility] IMPLANTS N/A: Back [employer] 07/09/[id number] / [id number] Cement Spinal Confidence 2839-10-000 - [id number] Implanted:Qty: 2 on 10/14/2023 at [facility] IMPLANTS N/A: Back J &J:DEPUY:DEPUY SPINE 06/08/2025 0 / / [id number] Insurance MEDICARE PART A B GENERIC COMMERCIAL Advance Directives For more information, please contact: [phone] Documents on File Type Date Recorded Patient Acid Mixer Expl anation Advance Directives and Marixa g Will 01/31/2022 8:44 AM * Full Code (Latest Code Status on File) Date Activated Date Inactivated Comments 10/12/2023 11:08 PM 10/15/2023 6:49 PM * Full Code Date Activated Date Inactivated Comments 01/31/2022 5:41 PM 02/01/2022 4:50 PM Healthcare Agents on File Name Relationship Healthcare Agent Relationshi p Communication Luis Cruz Son First Alternate Healthcare Decision-Maker Care Teams Pad Cutter Relationship Specialty Start Date End Date Sandra Orozco, RUBEN [address] [place] [address] PCP - General Nurse Practitioner 01/24/22
--- OUTSIDE RECORDS SUMMARY | 2024-09-18 14:34 | XMS_ITS | Encounter Summary ---
Author Organization [employer] ([place], [place], [place], [place]) Address [address] [place] [address] Care Team Providers Care Revenue Investigator Name Role Phone Sandra Orozco APRN Primary Care Provider [phone] Encounter Details Date Type Department Care Team (Late st Contact Info) Description 05/19/2021 Transcribed Document [facility] [place] Family [place] [address] [place] [address] ProviderAide MD [address] [place] [address] Social History Tobacco Use Types [...] your living situation today? I have a [facility] place to live 10/13/2023 Think about [...] Do you speak a language other than Yakut at [facility]? No 10/13/2023 Do you want help [...] Conversion Note - Historical Provider, - 05/19/2021 2:23 PM DATA MANAGEMENT MANAGER DATE OF SERVICE: 05/19/2021 INDICATIONS: Palpitations, . [...] weeks for suture removal and wound check. /[id number] Christy Kirk MD AE/AQ / AE / MODL /[id number] Electronically signed by Kamron [facility] Conversion Concentrator Operator Cerner at 06/27/2022 8:05 AM CDT documented in this encounter Plan of Treatment Not on file documented as of this encounter Visit Diagnoses Not on filedocumented in this encounter Care Teams Revenue Investigator Relationship Specialty Start Date End Date Orozco Sandra, VOCATIONAL NURSING INSTRUCTOR [address] [place] [address] PCP - General Nurse Practitioner 01/24/22 documented as of this encounter
--- OUTSIDE RECORDS SUMMARY | 2024-09-18 14:34 | XMS_ITS | Encounter Summary ---
Author Organization [employer] ([place], [place], [place], [place]) Address [address] [place] [address] Care Team Providers Care Factory Superintendent Name Role Phone Sandra Orozco APRN Primary Care Provider [phone] Encounter Details Date Type Department Care Team (Late st Contact Info) Description 05/19/2021 Transcribed Document [facility] [place] [address] [place] [address] ProviderAide MD [address] [place] [address] Social History Tobacco Use Types [...] your living situation today? I have a [facility] place to live 10/13/2023 Think about [...] Do you speak a language other than Mongolian at [facility]? No 10/13/2023 [...] Conversion Note - Historical Provider, - 05/19/2021 12:51 PM EARLY CHILDHOOD SPECIALIST PAT Adult Entered On: 05/19/2021 12:55 EST [...] mmHg Oxygen Saturation : 92 % (LOW) AZUCENA PALACIO - 05/19/2021 12:51 EST Pain Assessment Pain Assessment : Initial assessment Pain Scale Used : 0-10 Scale AZUCENA PALACIO 05/19/2021 12:51 EST Height and Weight, Clinical Dosing Height Source : Stated Height Entry Format : [place] Height, Feet : 5 ft(Converted to: 152 cm, 60 Inch) Height, Inches : 0 Inch(Converted to: 0 ft 0 Inch, 0.00 cm) Clinical Height : 152.4 cm Weight Source : Standing scale Weight Entry Format : [place] Clinical Dosing Weight : 69.09 kg Weight, Pounds : 152 lb Body Surface Area (BSA) : 1.66 m2 Body Mass Index : 29.7 kg/m2 ([place]) [place] Body Weight : 45 kg AZUCENA PALACIO 05/19/2021 12:51 EST Health Histories Smoking Status : 5-9 cigarettes (between 1/4 to 1/2 pack)/day in last 30 days Smokeless Tobacco Status : Never Desires Tobacco Cessation Medication : No Reason for No Tobacco Cessation Medication : Refuses FDA approved medications AZUCENA PALACIO - 05/19/2021 12:51 EST Social History (As Of: [...] COVID19 symptoms since test? : No AZUCENA PAALCIO 05/19/2021 12:51 EST Anesthesia/Transfusion History Family History of Anesthesia Reaction : No prior transfusion(s) Blood Transfusion Acceptable to Patient : Yes Transfusion History : Prior anesthesia reaction Type of Anesthesia Reaction : Excessive somnolence Family History of Anesthesia Reaction : None AZUCENA PALACIO 05/19/2021 12:51 EST Advance Directive Patient has Advance Directive *Q : No, patient refuses Advance Directive information AZUCENA PALACIO 05/19/2021 12:51 EST [place] Suicide Severity Rating Scale (C-SSRS) CSSRS Past Month Wish to be : No CSSRS Past Month Suicidal Thoughts : No CSSRS Lifetime Suicide Behavior : No Suicide Severity Rating Score : 0 Suicide Severity Rating : No Additional Care Required at this time LULUSHANICEAZUCENA 05/19/2021 12:51 EST Psychosocial History Currently in Unsafe Situation : No AZUCENA PALACIO 05/19/2021 12:51 EST General Info Support Person/Pt Rep Contact Information : LUDWIN FOOTE [phone] STEP MOM Want Family/Rep/Phys Notified of Admit : No Communication Barrier : None AZUCENA PALACIO 05/19/2021 12:51 EST Larry Scale Larry Sensory Perception : Slightly limited Larry Moisture : Rarely moist Larry Activity : Walks occasionally Larry Mobility : Slightly limited Larry Nutrition : Adequate Larry Friction and Shear : Potential problem Larry Score : 18 LULUSHANICEAZUCENA 05/19/2021 12:51 EST Sleep Apnea Risk Assmt BiPAP/CPAP Ordered for Home Use : Yes Hx of Obstructive Sleep Apnea Diagnosis : Yes BiPAP/CPAP Used at Home : No Reason BiPAP/CPAP Not Used at Home : DIDN'T DO NO GOOD Age over 50 Years Old : Yes Gender Male : No AZUCENA PALACIO 05/19/2021 12:51 EST Pain Scale Intensity : 0 LULUSHANICEAZUCENA 05/19/2021 12:51 EST Image 4 - Images currently included in the form version of this document have not been included in the text rendition version of the form. documented in this encounter Plan of Treatment Not on file documented as of this encounter Visit Diagnoses Not on filedocumented in this encounter Care Teams Factory Superintendent Relationship Specialty Start Date End Date Sandra Orozco APRN [address] [address] PCP - General Nurse Practitioner 01/24/22 documented as of this encounter
--- NOTE | 2024-09-18 14:38 | XR_ITS ---
FINAL REPORT CLINICAL HISTORY: SALDANA, edema COMPARISON: 06/22/2024 FINDINGS: No acute pulmonary density is evident. There is no evidence of effusion or other pleural disease. The mediastinum has a normal appearance. The cardiac silhouette is unremarkable. IMPRESSION: Unremarkable chest exam. Reviewed, Interpreted and Dictated by Pushpa Villanueva MD Transcribed by Deidre South Authenticated and [facility]
[2024-09-18 14:58] LABS: Hematocrit 33.1 % (37.0-47.0); Hemoglobin 9.1 g/dL (12.2-16.2); Immature Granulocytes % 1.0 %; Mean Corpuscular HGB Conc 27.5 g/dL (31.8-35.4); Mean Corpuscular Hemoglobin 21.1 pg (27.0-31.2); Mean Corpuscular Volume 76.6 fl (81-99); Nucleated Red Blood Cells % 0 %; Platelet Count 234 K/mm3 (142-424); Red Blood Count 4.32 M/mm3 (4.20-5.40); Red Cell Distribution Width-SD 50.7 fL; White Blood Count 6.2 K/mm3 (4.8-10.8)
[2024-09-18 16:20] LABS: Alanine Aminotransferase 13 U/L (12-78); Albumin Level 4.2 g/dl (3.5-5.0); Albumin/Globulin Ratio 1.8 (1.1-1.8); Alkaline Phosphatase 117 U/L (38-126); Anion Gap 13.0 mEq/L (5-15); Aspartate Amino Transferase 27 U/L (14-36); Bilirubin,Total 0.4 mg/dl (0.2-1.3); Blood Urea Nitrogen 28 mg/dl (7-17); Calcium 8.6 mg/dl (8.4-10.2); Carbon Dioxide 34 mmol/L (22.0-30.0); Chloride 97 mmol/L (98-107); Creatinine,Serum 1.00 mg/dl (0.52-1.04); Estimated Glomerular Filt Rate 55 ml/min (>60); GFR (African American) 67 ML/MIN (>60); Globulin 2.3 g/dL (1.3-3.2); Glucose 102 mg/dl (74-100); Potassium 4.0 mmoL/L (3.5-5.1); Sodium 140 mmol/L (136-145); Total Protein,Serum 6.5 g/dl (6.3-8.2)
[2024-09-18 16:29] LABS: NT Pro Brain Natriuretic Pep. 398 pg/mL (0-125)
[2024-09-18 16:50] LABS: Thyroid Stimulating Hormone 2.63 uIU/mL (0.465-4.68)
[2024-09-18 17:10] LABS: Vitamin B12 416 pg/mL (239-931)
[2024-09-18 18:55] LABS: Hemoglobin A1C 6.1 % (4.0-6.0)
== END 2024-09-18 23:59 | disposition home or self-care (01) ==
LOC: LAB 14:32
PROVIDERS: PCP Nurse Practitioner Family; Visit Provider Nurse Practitioner Family
DX: I50.9 Heart failure, unspecified (principal); G47.33 Obstructive sleep apnea (adult) (pediatric); R42 Dizziness and giddiness; R47.81 Slurred speech; R73.9 Hyperglycemia, unspecified
CPT/HCPCS: 36415; 71046; 80053; 82607; 83036; 83880; 84207; 84425; 84443; 85025

== ENCOUNTER 2024-09-24 09:33 | Outpatient (CLI) | payer MEDICARE, OTHER, SELFPAY ==
--- OUTSIDE RECORDS SUMMARY | 2024-09-24 09:35 | XMS_ITS | Encounter Summary ---
Author Organization [employer] ([place], [place], [place], [place]) Address [address] [place] [address] Care Team Providers Care Beveler Name Role Phone Sandra Orozco APRN Primary Care Provider [phone] Encounter Details Date Type Department Care Team (Late st Contact Info) Description 05/19/2021 Transcribed Document [facility] [place] Family Medicine [address] [place] [address] ProviderAide MD [address] [place] [address] Social History Tobacco Use Types [...] your living situation today? I have a [facility] place to live 10/13/2023 Think about [...] Do you speak a language other than [place] at [facility]? No 10/13/2023 [...] - Historical Provider, - 05/19/2021 12:51 PM DRIVER MEDIC PAT Adult Entered On: 05/19/2021 12:55 EST [...] Source : Stated Height Entry Format : [place] Height, Feet : 5 ft(Converted to: 152 cm, 60 Inch) Height, Inches : 0 Inch(Converted to: 0 ft 0 Inch, 0.00 cm) Clinical Height : 152.4 cm Weight Source : Standing scale Weight Entry Format : [place] Clinical Dosing Weight : 69.09 kg Weight, Pounds : 152 lb Body Surface Area (BSA) : 1.66 m2 Body Mass Index : 29.7 kg/m2 ([place]) [place] Body Weight : 45 kg AZUCENA PALACIO [...] Directive information AZUCENA PALACIO 05/19/2021 12:51 EST [place] Suicide Severity Rating Scale (C-SSRS) CSSRS Past [...] Person/Pt Rep Contact Information : LUDWIN FOOTE [phone] STEP MOM Want Family/Rep/Phys Notified of Admit [...] on filedocumented in this encounter Care Teams Beveler Relationship Specialty Start Date End Date Sandra Orozco APRN [address] [address] PCP - General Nurse Practitioner 01/24/22 documented as of this encounter
--- OUTSIDE RECORDS SUMMARY | 2024-09-24 09:35 | XMS_ITS | Continuity of Care Document ---
Author Organization [facility], PAIN MEDICINE [address] [place] [address] Care Team Providers Care Privacy Director Name Role Phone GLADIS DELCID Primary Care Provider [phone] Assessment Encounter Date Assessment Date Assessment LastModified by Organization Details LastModified Time 08/25/2024 08/25/2024 Plan: I have personally reviewed this patient's MOHSEN report as per [place] medical board guidelines and it was found to be appropriate. Patient signed pain management agreement per clinic policy. The medication is or continues to be in the best interest of patient centered care. Schedule II, III or IV medications were provided for symptom or disease control. Risks and benefits of such medications were discussed with the patient. Labs: The pt was sent for urine drug testing today. The pt is prescribed chronic pain medication. The confirmation of urine testing on 11/19/23 was positive for hydrocodone, norhydrocodone, and hydromorphone. Appears appropriate. The confirmation of urine testing on 08/25/24 will be f/u at the next ov. Psychological Evaluation: The pt will be referred to the psychologist for evaluation of the chronic pain and risk assessment. The pt is aware of this. Physical Therapy/Activit ies/Exercise: We did not discuss exercise, today. (From ov on 06/25/24: We discussed that the pt needs to keep moving.)(From initial ov: She states the last time she went to PT has been a good while. She does do a HEP most days. She does have a TENs unit but can't put it on.) Injections: (From previous ov: The pt states the injections have not helped her.) Medications: Will continue norco 5/325, 3x/day. She does not have any problems with the pain medication. She states it allows her to get up and move, and do everything that she does. (Will increase medication to hydrocodone 5/325, 2x/day. [...] tablet daily at the next ov.) Dates: 09/02-10/02- Preventative Care: Referred by Winsome Gallagher APRN. Return to Clinic in two month to f/u on the treatment plan. [email or web address] Not available 08/25/2024 11:04:56 Plan of Treatment Reminders Order Date Submit Date Provider Last Modified By Organization Details Last Modified Time Details Appointments RECHECK 2024 11:15A Matt KINSEY MD Not available Not available Not available Lab None recorded. Referral None recorded. Procedures None recorded. Surgeries None recorded. Imaging None recorded. Medication Orders hydrocodo ne 5 mg-acetam inophen 325 mg tablet 2024 025 [facility], [address] [place] [address], [phone], 08/25/2024 11:08:17 hydrocodo ne 5 mg-acetam inophen 325 mg tablet 2024 025 [facility], [address] [place] [address] [place], [place], [phone], 08/25/2024 11:08:18 Patient TargetsNo targets recorded. Patient InstructionsNo instructions recorded. Reason for Referral None Reported. 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 Procedures Surgical History Date Name Laterality Status Provider Name and Address Organization Details Recorded Time 04/10/19 Date of Last Mammogram completed Amira Hogan [facility] 05/04/2024 14:53:23 [facility]lectomy [facility]2021 11:07:23 partial hysterectomy completed [facility] Valerie [facility] 06/29/2021 11:07:41 cholecystectomy completed [facility] Valerie [facility] 06/29/2021 11:07:49 Unlisted px accessory sinus completed [facility] Valerie [facility] 06/29/2021 11:08:12 Unlisted px phrnx adnd/tnsl completed [facility] Valerie [facility] 06/29/2021 11:08:24 procedure on vein [facility] 11:08:40 Appendectomy completed Amira [facility] 05/04/2024 14:53:09 Imaging Results None recorded. Procedure Notes None recorded. Medical Equipment None Reported. Allergies Allergen ID Allergen Name Allergen Category Reaction Reaction Severity Criticality Documentation Date Start Date Code Code System Note Provider Name and Address Organization Details Recorded Time 845955 Cipro medicatio n Not available Not available Not available 02/02/2016201156 3 RxNorm Comme nt: Creat ed By: Storm Bonner;Ruthie patrick Date: 2011 10:08 :22 AM; Not Available [facility] 6 12:52:49 349409 Celebrex medicatio n Not available Not available Not available 02/03/20162011 64853 7 RxNorm Comme nt: Creat ed By: Storm Bonner;C reate d Date: 2011 10:08 :34 AM; Not Available [facility] 6 05:46:24 370288 Levaquin medicatio n Not available Not available Not available 02/03/20162011 60999 2 RxNorm Comme nt: Creat ed By: Storm Bonner;C reate d Date: 2011 10:07 :37 AM; Not Available [facility] 6 08:06:37 663290 Macrobid medicatio n Not available Not available Not available 02/03/20162011 24001 1 RxNorm Comme nt: Creat ed By: Storm Bonner;C reate d Date: 2011 10:08 :04 AM; Not Available [facility] 6 08:06:37 854464 Product containin g penicilli n (product) medicatio n Not available Not available Not available 06/29/2021 39686 8001 SNOMED [facility] 11:[facility]22 040449 gabapenti n medicatio n Not available Not available Not available 06/29/2021 80931 RxNorm Kailey Valerie null, [facility] 2 11:02:39 687090 leflunomi de medicatio n Not available Not available Not available 06/29/2021 87192 RxNorm Kailey Valerie null, [facility] 2 11:02:54 281311 Naprosyn medicatio n Not available Not available Not available 06/29/2021 2 RxNorm Kailey Valerie null, [facility] 2 11:03:06 877185 dextromet horphan hydrobrom mónica medicatio n Not available Not available Not available 05/04/2024 55482 0 RxNorm Amira Hogan null, [facility] 5 15:09:56 686182 Omnicef medicatio n Not available Not available Not available 05/04/2024 13017 RxNorm Amira Hogan [facility] 5 15:10:19 487981 nortripty line medicatio n Not available Not available Not available 05/04/2024 7531 RxNorm Amira Hogan [facility] 5 15:10:37 225935 Lyrica medicatio n Not available Not available Not available 05/04/2024 95076 1 RxNorm Amira Hogan [facility] 5 15:10:45 Medications Name Sig Start Date Stop Date Status Note LastModified by Organization Details LastModified Time cyclobenz aprine 10 mg tablet 12/23 completed Not Available Not Available Not Available Tussin DM 10 mg-100 mg/5 mL oral syrup 08/25 completed 05/04/24 per med list no longer taking Not Available Not Available Not Available fluconazo le 100 mg tablet TAKE 1 TABLET BY MOUTH ONCE A DAY FOR 14 DAYS 08/25 completed Not Available Not Available Not Available [...] 5 TIMES a DAY FOR 14 DAYS 08/25 completed Not Available Not Available Not Available potassium chloride ER 10 mEq capsule,e xtended release active Not Available Not Available Not Available prednison e 10 mg tablet 12/23 completed Not Available Not Available Not Available doxycycli ne hyclate 100 mg capsule TAKE 1 CAPSULE BY MOUTH TWICE DAILY 08/25 completed Not Available Not Available Not Available Neurontin [...] DOSE in 72 HOURS if SYMPTOMS persist 08/25 completed Not Available Not Available Not Available valacyclo vir 1 gram tablet 12/23 completed Not Available Not Available Not Available clarithro mycin 500 mg tablet 08/25 completed 05/04/24 per med list no longer taking Not Available Not Available Not Available hydrocodo ne 5 mg-acetam inophen 325 mg tablet TAKE 1 TABLET BY MOUTH 3 TIMES A DAY active Not Available Not Available No t Available fluconazo le 200 mg tablet 08/25 completed Not Available Not Available Not Available prednison [...] Available Not Available meclizine 25 mg tablet 08/25 completed 05/04/24 per med list no longer taking Not Available Not Available Not Available hydrocodo ne 7.5 mg-acetam inophen 325 mg tablet TAKE 1 TABLET BY MOUTH EVERY 6 HOURS NEEDED 12/23 completed Not Available Not Available Not Available cephalexi n 500 mg capsule TAKE 1 CAPSULE BY MOUTH EVERY 8 HOURS FOR 10 DAYS 06/17 /2025 completed Not Available Not Available Not Available pantopraz ole 40 mg tablet,de layed release 12/23 completed Not Available Not Available Not Available bumetanid e 0.5 mg tablet 12/23 completed Not Available Not Available Not Available clotrimaz ole-betam ethasone 1 %-0.05 % topical cream APPLY TO THE AFFECTED AREA(S) 2 TIMES A DAY active Not Available Not Available No t Available Cozaar 100 mg tablet Daily 12/23 [...] Available mometason e 0.1 % topical ointment 08/25 completed 05/04/24 per med list no longer taking [...] Available Not Available cefdinir 300 mg capsule 08/25 completed 05/04/24 per med list no longer taking [...] 3 times a day by oral route. 08/25 completed 05/04/24 per med list no longer taking [...] ML SUBCUTAN EOUSLY ONCE EVERY 14 DAYS 08/25 completed Patient states she is not taking due to side effects. Not Available Not Available Not Available Vitals Date Recorded Body height Body mass index (BMI) Body weight Oxygen saturation Oxygen saturation in Arterial blood by Pulse oximetry Inhaled oxygen flow rate Heart rate Systolic And Diastolic Provider Name and Address Organization Details Last Updated DateTime 5 152.4 cm 34.8 kg/m2 66215.4 4 g 94 % 94 % 1 L/min 79 /min 122/64 mm[Hg] Blanca Gannon [facility] 5 10:45:12 Social History Question Answer Notes LastModified by Organizat ion Details LastModified Time Tobacco Smoking Status Former Smoker Blanca Gannon [facility] 11/19/2023 14:27:06 What Was The Date Of Your Most Recent Tobacco Screening? 08/25/2024 [email or web address] Information not available 08/25/2024 How Much Tobacco Do You Smoke? 0.5 [...] 06/29/2021 Are you currently employed? No disabled [place] [id number] Information not available 05/04/2024 Mental Status None recorded. Family History Relationship Description Onset Age of this Age Resolved Age Notes LastModified by Organization Details LastModified Time Unspecified Relation Malignant neoplastic disease [email or web address] Not available 04/12 14:49:35 Unspecified Relation Diabetes mellitus [email or web address] Not available 04/12 14:49:35 Mother Familial cancer of breast [email or web address] Not available 04/12 14:49:35 Mother Malignant tumor of pancreas [email or web address] Not available 2024 14:51:13 Mother Chronic obstructive pulmonary disease [email or web address] Not available 2024 14:51:40 Father Hypercholest erolemia [email or web address] Not available 2024 14:51:58 Medical History Condition Response Other N Kidney Stones N Blood Transfusion N Emphysema Y Sexually Transmitted Disease N COPD Y Depression Y Pneumonia Y Anxiety Disorder Y Arthritis Y Cancer N Stroke Y Crohn's Disease N Headaches N Fibromyalgia Y Endocrine Disorder N Kidney Disease N Skin Problems Y Ulcers N Bleeding Disorder N AIDS/HIV N Asthma Y Thyroid Disorder N Thyroid Disease N Breast Cancer N Colon/Rectal Disorders N Glaucoma N Breast Problem Y Attempted Suicide N Varicose Veins Y Hearing Loss Y Radiation Therapy N Blood Thinners N Liver Disease N Osteoporosis/Osteopenia Y Heart Attack ([place]) N Mental Illness Y Diabetes N Ovarian Cancer N Congestive Heart Failure (CHF) Y Eczema N Diverticulitis N Epilepsy/Seizures N Sleep Apnea Y Heart Disease N Osteoporosis N Gynecological History Statement/Question Response # of [...] SNOMED-CT Code Diagnosis ICD10 Code Diagnosis Note [id number] RAOUL KINSEY MD PAIN MEDICINE [address] [place] [address] 08/25/2024 10:26:44 08/25/2024 10:55:10 Chronic low back pain 007320503 M54.50 Degenerati on of lumbar intervertebral disc 33518537 M51.362 Spinal hilda nosis of lumbar region 26290737 M48.062 Health Concerns Section Related Observation LastModified by Organization Detai ls LastModified Time None Recorded Concern Status LastModified by Organization Details LastModified Time None Recorded Payers Encounter Date Sequence Insurance Name Policy Number Policy Sanchez Covered Member ID Sanchez Member ID Guarantor Name 08/25/2024 1 [place] Casi Cruz [id number] Casi Cruz 08/25/2024 2 COMBINED INSURANCE - [employer] (MEDICARE SUPPLEMENT) Casi Cruz [id number] Casi Cruz Notes Date Note Type Note Provider Name and Address Organization Details Recorded Time 08/25/2024 text/html The pt complains of low back pain and multijoint pain. The pt did not have any new pain complaints. (From ov on 06/25/24: The pt states her pain is worse. Her arthritis is flaring up. She states the pain medication is not lasting for her.) (From ov on 04/16/24: The pt did [...] pt states she has IBS, and bladder-leaks. She states she does take an ggud-nfz-yovweah stool softener/laxative. She does not want to use anything regularly. The pt is sleeping approximately 2-3 hours per night. The pt is not working. The pt reports that she has not fallen since her last ov. The pt ambulates without an AD. The pt is accompanied by a friend at today s visit.Etoh-Denied. Tobacco-Denied. CBD-Denied. RAOUL KINSEY MD [facility] [place], [address], [facility] 08/25/2024 11:07:39 OBGyn Episode No OBEpisode recorded.
--- OUTSIDE RECORDS SUMMARY | 2024-09-24 09:35 | XMS_ITS | Encounter Summary ---
Author Organization [employer] ([place], [place], [place], [place]) Address [address] [place] [address] Care Team Providers Care Leach Cell Operator Name Role Phone Sandra Orozco RUBEN Primary Care Provider Encounter Details Date Type Department Care Team (Late st Contact Info) Description 01/25/2020 Transcribed Document [facility] [place] [address] [place] [address] ProviderAide MD [address] [place] [address] Social History Tobacco Use Types Packs/Day Years Used Date Smoking Tobacco: Never Assessed Comments Unknown Sex and Gender Information Value Date Recorded Sex Assigned at Not on file Legal Sex Female 2:35 PM CDT Gender Identity Not on file Sexual Orientation Not on file documented as of this encounter Miscellaneous Notes * Cerner Conversion Note - Historical ProviderMD - 01/25/2020 6:55 AM DOCUMENTATION COORDINATOR DATE OF ADMISSION: 01/22/2020 HISTORY OF PRESENT [...] applying ice and heat, physical therapy, exercise, ireq-aab-ivkacub medication, bed rest going to Pain Clinic, [...] to contact her primary physician and her karate black belt to see if we can hold the [...] visit and the patient has been afebrile. /[id number] Karim Chaparro, MD, JELANI Pain Certified KR/AQ / KR / MODL CC: MD Sandra Valero APRN Electronically signed by Interface, [facility] Conversion Keeper Head Cerner at 06/27/2022 8:04 AM CDT documented in this encounter Plan of Treatment Not on file documented as of this encounter Visit Diagnoses Not on filedocumented in this encounter Care Teams Leach Cell Operator Relationship Specialty Start Date End Date Sandra Orozco, RUBEN [address] [address] PCP - General Nurse Practitioner 01/24/22 documented as of this encounter
--- OUTSIDE RECORDS SUMMARY | 2024-09-24 09:35 | XMS_ITS | Encounter Summary ---
Author Organization [employer] ([place], [place], [place], [place]) Address [address] [place] [address] Care Team Providers Care Vamp Maker Name Role Phone Sandra Orozco APRN Primary Care Provider [phone] Encounter Details Date Type Department Care Team (Late st Contact Info) Description 05/19/2021 Transcribed Document [facility] [place] Medicine [address] [place] [address] ProviderAide MD [address] [place] [address] Social History Tobacco Use Types [...] your living situation today? I have a [facility] place to live 10/13/2023 Think about [...] Do you speak a language other than [place] at [facility]? No 10/13/2023 Do you want help with [...] - Historical Provider, - 05/19/2021 2:23 PM DANCE PROFESSOR DATE OF SERVICE: 05/19/2021 INDICATIONS: Palpitations, . [...] weeks for suture removal and wound check. /[id number] Christy Kirk MD AE/AQ / AE / MODL /[id number] Electronically signed by Kamron [facility] Conversion Riding Double Cerner at 06/27/2022 8:05 AM CDT documented in this encounter Plan of Treatment Not on file documented as of this encounter Visit Diagnoses Not on filedocumented in this encounter Care Teams Vamp Maker Relationship Specialty Start Date End Date Orozco Sandra, PAYROLL ACCOUNTING SPECIALIST [address] [place] [address] PCP - General Nurse Practitioner 01/24/22 documented as of this encounter
--- OUTSIDE RECORDS SUMMARY | 2024-09-24 09:35 | XMS_ITS | Encounter Summary ---
Author Organization [employer] ([place], [place], [place], [place]) Address [address] [place] [address] Care Team Providers Care Poultry Scalder Name Role Phone Sandra Orozco APRN Primary Care Provider [phone] Encounter Details Date Type Department Care Team (Late st Contact Info) Description 05/19/2021 Transcribed Document [facility] [place] [address] [place] [address] ProviderAide MD [address] [place] [address] Social History Tobacco Use Types [...] your living situation today? I have a [facility] place to live 10/13/2023 Think about the [...] Do you speak a language other than Maori at [facility]? No 10/13/2023 Do you want help [...] - Historical Provider, - 05/19/2021 12:56 PM HIDE WASHER Patient Education Materials Follows: It???s Cold and [...] to thoroughly wash your hands, use hand vice president of development. While handwashing is best, hand vice president of development helps to reduce the spread of germs when you are out and about. Have hand vice president of development in several locations so you can always [...] keep people from also getting sick. Don???t Bruin It! Sneezing this time of year is [...] Fats and oils Meat fat, or shortening. Butterfield butter, hydrogenated oils, palm oil, coconut oil, [...] provider. Document Revised: 05/01/2018 Document Reviewed: 04/04/2018 [facility] Patient Education ? 2020 [facility] documented in this encounter Plan of Treatment Not on file documented as of this encounter Visit Diagnoses Not on filedocumented in this encounter Care Teams Poultry Scalder Relationship Specialty Start Date End Date Sandra Orozco, SUSTAINABLE LANDSCAPE ARCHITECT [address] [place] [id number] PCP - General Nurse Practitioner 01/24/22 documented as of this encounter
--- OUTSIDE RECORDS SUMMARY | 2024-09-24 09:35 | XMS_ITS | Encounter Summary ---
Author Organization [employer] ([place], [place], [place], [place]) Address [address] [place] [address] Care Team Providers Care Car Tracer Name Role Phone Sandra Orozco APRN Primary Care Provider [phone] Encounter Details Date Type Department Care Team (Late st Contact Info) Description 05/19/[address] [facility] [place] [address] [place] [address] ProviderAide MD [address] [place] [address] Social History Tobacco Use Types [...] speak a language other than Sam[place] [facility]? No 10/13/2023 Do you want [...] - Historical Provider, - 05/19/2021 2:36 PM BLAST FURNACE TENDER Nursing Discharge Summary Entered On: 05/19/2021 14:37 [...] - 05/19/2021 14:36 EST Electronically signed by Kamron [facility] Conversion Sub Prior Cerner at 06/27/2022 8:11 AM CDT documented in this encounter Plan of Treatment Not on file documented as of this encounter Visit Diagnoses Not on filedocumented in this encounter Care Teams Car Tracer Relationship Specialty Start Date End Date Sandra Orozco APRN [address] [id number] PCP - General Nurse Practitioner 01/24/22 documented as of this encounter
--- OUTSIDE RECORDS SUMMARY | 2024-09-24 09:35 | XMS_ITS | Encounter Summary ---
Author Organization [employer] ([place], [place], [place], [place]) Address [address] [place] [address] Care Team Providers Care Promotional Marketing Analyst Name Role Phone OrozcoSandra randhawa RUBEN Primary Care Provider Encounter Details Date Type Department Care Team (Late st Contact Info) Description 03/01/2020 Transcribed Document [facility] [place] [facility] [place] [address] ProviderAide MD [address] [place] [address] Social History Tobacco Use Types Packs/Day [...] Historical MD Derek - 03/01/2020 11:34 AM CALCULATION CLERK DATE OF PROCEDURE: 03/01/2020 SURGEON: Noemi Mayfield [...] 18-gauge Tuohy needle was advanced by the xlnu-uq-fotbejiqaa technique under direct fluoroscopic guidance into the [...] visit and the patient has been afebrile. /[id number] Noemi Mayfield MD, JELANI Pain Certified DELILAH/ANTHONY / KR / MODL /[id number] documented in this encounter Plan of Treatment Not on file documented as of this encounter Visit Diagnoses Not on filedocumented in this encounter Care Teams Promotional Marketing Analyst Relationship Specialty Start Date End Date Sandra Orozco, SUPPOSITORY MOLDING MACHINE OPERATOR [address] [place] [address] PCP - General Nurse Practitioner 01/24/22 documented as of this encounter
--- OUTSIDE RECORDS SUMMARY | 2024-09-24 09:35 | XMS_ITS | Encounter Summary ---
Author Organization [employer] ([place], [place], [place], [place]) Address [address] [place] [address] Care Team Providers Care Supervisor Loading Name Role Phone Sandra Oorzco APRN Primary Care Provider [phone] Encounter Details Date Type Department Care Team (Late st Contact Info) Description 05/19/2021 Transcribed Document [facility] [place] [address] [place] [address] ProviderAide MD [address] [place] [address] Social History Tobacco Use Types [...] your living situation today? I have a [facility] 10/13/2023 Think about the [...] Do you speak a language other than [place] at [facility]? No 10/13/2023 Do you want help with [...] - Historical Provider, - 05/19/2021 12:57 PM BEAUTY SCHOOL INSTRUCTOR Stroke/Warfarin Instructions Entered On: 05/19/2021 12:57 EST Performed On: 05/19/2021 12:57 EST by AZUCENA PALACIO Stroke/Warfarin Instructions Stroke/TIA Discharge Ins : N/A Warfarin Discharge Ins : N/A AZUCENA PALACIO - 05/19/2021 12:57 EST Electronically signed by Kamron [facility] Conversion Generator Assembler Cerner at 06/27/2022 8:14 AM CDT documented in this encounter Plan of Treatment Not on file documented as of this encounter Visit Diagnoses Not on filedocumented in this encounter Care Teams Supervisor Loading Relationship Specialty Start Date End Date Sandra Orozco APRN [address] [phone] PCP - General Nurse Practitioner 01/24/22 documented as of this encounter
--- OUTSIDE RECORDS SUMMARY | 2024-09-24 09:35 | XMS_ITS | Encounter Summary ---
Author Organization [employer] ([place], [place], [place], [place]) Address [address] [place] [address] Care Team Providers Care Fiberglass Boat Builder Name Role Phone Gladis Orozco APRN Primary Care Provider [phone] Encounter Details Date Type Department Care Team (Late st Contact Info) Description 05/19/2021 Transcribed Document [facility] [place] [address] [place] [address] ProviderAide MD [address] [place] [address] Social History Tobacco Use Types [...] your living situation today? I have a [facility] place to live 10/13/2023 Think about [...] speak a language other than Mongolian at [facility]? 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 [place] [address]- Medications What How Much When Instructions Next [...] Fats and oils Meat fat, or shortening. Rochelle butter, hydrogenated oils, palm oil, coconut oil, [...] provider. Document Revised: 05/01/2018 Document Reviewed: 04/04/2018 [employer] Patient Education ?? 2020 [employer]. It???s Cold and Flu Season ??? How [...] to thoroughly wash your hands, use hand lot boss. While handwashing is best, hand lot boss helps to reduce the spread of germs when you are out and about. Have hand lot boss in several locations so you can always [...] keep people from also getting sick. Don???t [place] It! Sneezing this time of year is [...] Assistance with quitting is available by contacting 6-419-PQUTNOW. This is a free resource providing counseling, support, and referral. Or you may contact your personal physician. [place] Suicide Prevention Lifeline: The National Suicide Prevention [...] was given the opportunity to ask questions. Patient/Gas Utility Worker Name: Patient/Gas Utility Worker Signature: Relationship to Patient: Clinician/Hospital Gas Utility Worker Signature: Date: Electronically signed by Hao Lundy Conversion Bioprocessing Manufacturing Technician Christal at 06/27/2022 7:57 AM CDT documented in this encounter Plan of Treatment Not on file documented as of this encounter Visit Diagnoses Not on filedocumented in this encounter Care Teams Fiberglass Boat Builder Relationship Specialty Start Date End Date Gladis Orozco APRN [address] [address] PCP - General Nurse Practitioner 01/24/22 documented as of this encounter
--- OUTSIDE RECORDS SUMMARY | 2024-09-24 09:36 | XMS_ITS | Clinical Summary ---
Author Organization [employer] ([place], [place], [place], [place]) Address [address] [place] [address] Care Team Providers Care Creping Machine Operator Name Role Phone OrozcoKrystenrafael MIRANDA Primary Care Provider [phone] Allergies Active Allergy Reactions Criticality Noted Date [...] your living situation today? I have a [facility] place to live 10/13/2023 Think about [...] Do you speak a language other than Tajik at [facility]? No 10/13/2023 Do you [...] 06/22/2009, 08/29/2001 Medical Devices Implanted Type Area Gusset Stitcher Device Identifier Shelf Expiration Date Model / Serial / Lot Sealant Durasl Spine 5ml [id number] - [id number] Implanted:Qty: 1 on 01/31/2022 by Emeka Fernández MD at [facility] IMPLANTS N/A: Back [employer] 07/09/[id number] / / [id number] Cement Spinal Confidence 2839-10-000 - [id number] Implanted:Qty: 2 on 10/14/2023 at [facility] IMPLANTS N/A: Back J &J:DEPUY:DEPUY SPINE 06/08/2025 [id number] Insurance MEDICARE PART A B GENERIC COMMERCIAL Advance Directives For more information, please contact: [phone] Documents on File Type Date Recorded Patient Lead Process Engineer Expl anation Advance Directives and Livin g Will 01/31/2022 8:44 AM * Full Code (Latest Code Status on File) Date Activated Date Inactivated Comments 10/12/2023 11:08 PM 10/15/2023 6:49 PM * Full Code Date Activated Date Inactivated Comments 01/31/2022 5:41 PM 02/01/2022 4:50 PM Healthcare Agents on File Name Relationship [facility] Luis Anthony Son First Alternate Healthcare Decision-Maker Care Teams Creping Machine Operator Relationship Specialty Start Date End Date Sandra Orozco APRN [address] [address] PCP - General Nurse Practitioner 01/24/22
--- OUTSIDE RECORDS SUMMARY | 2024-09-24 09:36 | XMS_ITS | Clinical Summary ---
Author Organization [facility] Address [address] [place] [address] Care Team Providers Care Production Bow Maker Name Role Phone Adryan Cooper MD Primary Care Provider + [phone] Allergies Active Allergy Reactions Criticality Noted Date [...] tablet (5 mg). 05/28/2016 Active HYDROcodone-gudelia taminophen (Bynum) 10-325 MG tablet 1 tablet (10 mg [...] 2) 2008 [facility]-Breast Cancer Screening 04/06/201703/12, 04/06/2015 [id number] Vaccine ( season) 2023 01/20/2021, 06/16/2020 [facility]-Influenza [...] age to complete this topic [place] [address] COMBINED PRIORITY 1 CARD Care Teams Production Bow Maker Relationship Specialty Start Date End Date Adryan Cooper MD [address] [place] [address] PCP - General 07/22/20
--- OUTSIDE RECORDS SUMMARY | 2024-09-24 09:36 | XMS_ITS | Data Portability ---
Author Organization [facility] Office Address [address] [address] Care Team Providers Care Doctor Of Radiology Name Role Phone GLADIS DELCID Primary Care Provider [phone] Assessment Encounter Date Assessment Date Assessment LastModified [...] to mix with alcohol, or self-escalate it. [email or web address] Not available 12/10/2021 19:02:32 Plan of Treatment Reminders Order Date Submit Date Provider Last Modified By Organization Details Last Modified Time Details Appointments None recorded. Lab None recorded. Referral None recorded. Procedures None recorded. Surgeries None recorded. Imaging None recorded. Medication Orders [place] 10 mg-325 mg tablet 2021 022 PATRICK [facility], [facility] [place] [address] [address] [place], [id number], 17:21:53 tizanidine 2 mg tablet 2021 022 [facility], [facility] [address] [place], [id number], 2 16:55:31 Patient TargetsNo targets recorded. Patient Instructions Encounter Date Encounter Id Patient Instructions Last Modified By Organization Details Last Modified Time 12/06/2021 [id number] Patient is to us e non-pharmacologic measures for mild pain and use opioid as needed only for moderate pain, to use before pain is severe to be most effective. patient is to try heat, ice, rest, repositioning, tens, massage, stretching, walking, and meditation prior to opioid use. [email or web address] Not available 12/10/2021 19:03:33 Patient seen today incident to a physician s previously established diagnosis and plan of care. Follow-up care provided today under the plan of care of: Aaliyah Olson MD and supervision of: Aaliyah Olson MD. [email or web address] Not available 12/10/2021 19:03:54 Reason for Referral None Reported. Problems Name Problem SNOMED Code Status Onset Date Resolution Date Notes Provider Name and Address Organization Details Recorded Time Chronic pain 07486814 Active 2020 (G89.29)O ther chronic pain Not Available [facility] 2 22:51:15 Spondylos is without myelopath y 06531318 Active 2020 (M47.816) Spondylos is without myelopath y or radiculop athy, lumbar region [facility] Available [facility] 2 22:51:15 Lumbosacr al spondylos is without myelopath y 09408710 Active 2020 (M47.817) Spondylos is without myelopath y or radiculop athy, lumbosacr al region Not Available [facility] 2 22:51:15 Degenerat ion of lumbosacr al intervert ebral disc 93649747 Active 2020 (M51.37)O ther intervert ebral disc degenerat ion, lumbosacr al region Not Available [facility] 2 22:51:15 Lumbosacr al radiculop athy 6130515 Active 2020 (M54.17)R adiculopa thy, lumbosacr al region Not Available [facility] 2 22:51:15 Muscle pain 79101218 Active 2020 (M79.1)My algia Not Available [facility] 2 22:51:15 Pre-surge ry testing Active 2020 (Z01.812) Encounter for preproced ural laborator y examinati on Not Available [facility] 2 22:51:16 Opioid dependenc e 14704796 Active 2020 (F11.20)O pioid dependenc e, uncomplic ated Not Available [facility] 2 22:51:15 Long-term current use of opiate analgesic drug 08645485545 4108 Active 2020 (Z79.891) halfway (current) use of opiate analgesic Not Available [facility] 2 22:51:16 Lumbar spondylos is 780907400 Active 2020 (M47.26)O ther spondylos is with radiculop athy, lumbar region Not Available [facility] 2 22:51:15 Lumbosacr al spondylos is with radiculop athy 617398940 Active 2020 (M47.27)O ther spondylos is with radiculop athy, lumbosacr al region Not Available [facility] 2 22:51:15 Spasm of back muscles 304726115 Active 2021 [facility] 2 16:53:49 Problem Notes None recorded. Medical Equipment None Reported. Allergies Allergen ID Allergen Name Allergen Category Reaction Reaction Severity Criticality Documentation Date Start Date Code Code System Note Provider Name and Address Organization Details Recorded Time 30508 Celebrex medicatio n Not available Not available Not available 07/11/20212020 45557 7 RxNorm React ion: Blood in stool s(Mil d) Not Available [facility] 2 22:02:48 63227 leflunomi de Not available Not available Not available Not available 07/11/20212020 81007 RxNorm React ion: reall y bad sores (Mild ) Not Available [facility] 2 22:02:48 96387 Penicilli n Not available itching mild Not available 07/11/20212020 43200 RxNorm Not Available [facility] 2 22:02:48 76329 gabapenti n medicatio n Not available Not available Not available 07/11/20212020 33003 RxNorm React ion: BAD swell ing(M ild) Not Available [facility] 2 22:02:48 72154 nortripty line hydrochlo ride medicatio n Not available Not available Not available 07/11/2021202013 0 RxNorm Not Available [facility] 2 22:02:48 98247 Naprosyn medicatio n Not available Not available Not available 07/11/20212020 2 RxNorm React ion: throa t clos ed (M ild) Not Available [facility] 2 22:02:48 27454 Macrobid medicatio n Not available Not available Not available 07/11/20212020 84345 1 RxNorm React ion: hives and itchi [...] Rapid test - PLease FAX results to [phone] DX Z01.812 2021 active Not Available Not Available Not Avai lable Vitals Date Recorded Body height Body mass index (BMI) Body weight Body temperature Heart rate Oxygen saturation Oxygen saturation in Arterial blood by Pulse oximetry Systolic And Diastolic Provider Name and Address Organization Details Last Updated DateTime 2 152.4 cm 28.1 kg/m2 74641.3 g 98.9 [degF] 62 /min 97 % 97 % 101/69 mm[Hg] [facility] 2 16:21:09 [...] SNOMED-CT Code Diagnosis ICD10 Code Diagnosis Note [id number] Claribel Ramsay, LEACH CELL OPERATOR [address] [facility] [address] [place] [address] 12/06/2021 16:00:41 12/07/2021 16:37:14 Long-term current use of opiate analgesic drug 6567030062 24212 Z79.891 Patient is noted to be low risk for opioids due to: previous hx of compliance UDS reviewed on and is Appropriat e all previous MOHSEN reviewed and is Appropriat e Opioid dependence 307075 00 F11.20 Medication compliance : According to [...] follows none Lumbosacra l spondylosis with radiculopathy 766480042 M47.27 patient says she is able to usually make this this Rx last about 2 month is using only prn would like to come back in 2 months Spasm of back muscles 20 5128974 M62.830 stable with meds, no changes Health Concerns Section Related Observation LastModified by Organization Detai ls LastModified Time None Recorded Concern Status LastModified by Organization Details LastModified Time None Recorded Advance Directives Directive None Recorded Payers Insurance Date Sequence Insurance Name Policy Number Policy Sanchez Covered Member ID Sanchez Member ID Guarantor Name 12/06/2021 1 [place] Casi Cruz [id number] Casi rCuz 12/06/2021 2 COMBINED INSURANCE - [employer] (MEDICARE SUPPLEMENT) Casi Cruz [id number] Casi Cruz Notes Date Note Type Note [...]
--- OUTSIDE RECORDS SUMMARY | 2024-09-24 09:36 | XMS_ITS | Data Portability ---
Author Organization SANDER NASEEM Rivera [place] [facility] Address [address] [facility] [address] [place] [address] Care Team Providers Care Fruit And Vegetable Inspector Name Role Phone GLADIS DELCID Primary Care Provider Assessment Encounter Date Assessment Date Assessment LastModified by Organization Details LastModified Time 04/14/2024 04/14/2024 Jackelyn Cruz is a 63-year-old female on oxygen with a history of COPD, TIAs, and CHF who is status post L1 and L2 kyphoplasties with Dr. Roque on 10/14/2023 and L2-[address] Fernández 11/28/2021 presenting to the clinic for a follow-up. When studying her MRI from October 2023 at [place], there is no clear cause for the [...] questions, concerns, or new or worsening symptoms. [email or web address] Not available 04/14/2024 13:41:43 04/16/2024 04/16/2024 Plan: I have personally reviewed this patient's MOHSEN report as per [place] medical board guidelines and it was found [...] on the treatment plan. [email or web address] Not available 04/16/2024 11:47:18 06/25/2024 06/25/2024 Plan: I have personally reviewed this patient's MOHSEN report as per [place] medical board guidelines and it was found [...] tablet daily at the next ov.) Dates: 07/03-08/02-09/01/ 5 Preventative Care: Referred by Juanita Gallagher APRN. Return to Clinic in two month to f/u on the treatment plan. [email or web address] Not available 06/25/2024 12:11:48 08/25/2024 08/25/2024 Plan: I have personally reviewed this patient's MOHSEN report as per [facility] board guidelines and it was found [...] aware of this. Physical Therapy/Activiti es/Exercise: We did not discuss exercise, today. (From [...] ov.) Dates: 09/02-10/02- Preventative Care: Referred by Juanita Gallagher APRN. [...] mg-acetam inophen 325 mg tablet 2024 025 [facility], [address] [place] [address], [phone], 08/25/2024 11:08:17 hydrocodo ne 5 mg-acetam inophen 325 mg tablet 2024 025 [facility], [facility] [address], [phone], 08/25/2024 11:08:18 hydrocodo ne 5 mg-acetam inophen 325 mg tablet 2024 025 [facility] [address], [address], [address], 06/25/2024 11:29:57 hydrocodo ne 5 mg-acetam inophen 325 mg tablet 2024 025 [facility] 591, [address], [address], 06/25/2024 11:29:56 hydrocodo ne 5 mg-acetam inophen 325 mg tablet 2024 025 [facility]91, [address], [address], 04/16/2024 11:30:43 hydrocodo ne 5 mg-acetam inophen 325 mg tablet 2024 025 [facility]91, [address], [address], 04/16/2024 11:30:42 Patient TargetsNo targets recorded. Patient InstructionsNo instructions recorded. Reason for Referral None Reported. Results Created Date Observation Date Name Description Value Unit Range Abnormal Flag Note LastModifiedBy Organization Detail LastModifiedTime 08/26/1908/27/2024 HIGH RISK DRUG PANEL gabapentin NEGATI VE NG/mL <1000 normal Not Available [facility] [address] [place] [address], [phone], 08/30/2024 17:49:46 08/26/19 25 08/27/2024 HIGH RISK DRUG PANEL pregabalin, qt ur NEGATI VE NG/mL <1000 normal Not Available [facility] [address] [place], [address], 08/30/2024 17:49:46 08/26/19 25 08/27/2024 HIGH RISK DRUG PANEL desmethyltra madol NEGATI VE NG/mL <100 normal Not Available [facility] [address] [place], [address], 08/30/2024 17:49:46 08/26/19 25 08/27/2024 HIGH RISK DRUG PANEL tramadol NEGATI VE NG/mL <100 normal Not Available [facility] [address] [place], [address], 08/30/2024 17:49:46 08/26/19 25 08/27/2024 HIGH RISK DRUG PANEL tapentadol NEGATI VE NG/mL <50 normal Not Available [facility] [address] [place], [address], 08/30/2024 17:49:46 08/26/19 25 08/27/2024 HIGH RISK DRUG PANEL nortapentado l NEGATI VE NG/mL <50 normal Not Available [facility] [address] [place] [address], [phone], 08/30/2024 17:49:46 08/26/19 25 08/27/2024 HIGH RISK DRUG PANEL ethyl glucuronide NEGATI VE NG/mL <500 normal Not Available [facility] [address] [place] [address], [phone], 08/30/2024 17:49:46 08/26/19 25 08/27/2024 HIGH RISK DRUG PANEL ethyl sulfate NEGATI VE NG/mL <100 normal Not Available [facility] [address] [place] [address], [address], 08/30/2024 17:49:46 08/26/19 25 08/27/2024 HIGH RISK DRUG PANEL buprenorphin e NEGATI VE NG/mL <2 normal Not Available [facility] [address] [place] [address], [address], 08/30/2024 17:49:46 08/26/19 25 08/27/2024 HIGH RISK DRUG PANEL norbuprenorp shadi NEGATI VE NG/mL <2 normal Not Available [facility] [address] [place] [address], [phone], 08/30/2024 17:49:46 08/26/19 25 08/27/2024 HIGH RISK DRUG PANEL naloxone NEGATI VE NG/mL <2 normal Not Available [facility] [address] [place] [address], [address], 08/30/2024 17:49:46 08/26/19 25 08/30/2024 HIGH RISK DRUG PANEL amphetamines NEGATI VE NG/mL <500 normal Not Available [facility] [address] [place] [address], [address], 08/30/2024 17:49:46 08/26/19 25 08/30/2024 HIGH RISK DRUG PANEL barbiturates NEGATI VE NG/mL <300 normal Not Available [facility] [address] [place] [address], [address], 08/30/2024 17:49:46 08/26/19 25 08/30/2024 HIGH RISK DRUG PANEL benzodiazepi rufus NEGATI VE NG/mL <100 normal Not Available [facility] [address] [place] [address], [address], 08/30/2024 17:49:46 08/26/19 25 08/30/2024 HIGH RISK DRUG PANEL marijuana metabolite NEGATI VE NG/mL <20 normal Not Available [facility] [address] [place] [address], [address], 08/30/2024 17:49:46 08/26/19 25 08/30/2024 HIGH RISK DRUG PANEL cocaine metabolite NEGATI VE NG/mL <150 normal Not Available [facility] [address] [place] [address], [address], 08/30/2024 17:49:46 08/26/1908/30/2024 HIGH RISK DRUG PANEL methadone metabolite NEGATI VE NG/mL <100 normal Not Available [facility] [address] [place] [address], [address], 08/30/2024 17:49:46 08/26/19 25 08/30/2024 HIGH RISK DRUG PANEL opiates POSITI VE NG/mL <100 abnormal Not Available [facility] [address] [place] [address], [address], 08/30/2024 17:49:46 08/26/19 25 08/30/2024 HIGH RISK DRUG PANEL codeine NEGATI VE NG/mL <50 normal Not Available [facility] [address] [place] [address], [address], 08/30/2024 17:49:46 08/26/19 25 08/30/2024 HIGH RISK DRUG PANEL hydrocodone 3424 NG/mL <50 high Not Available [facility] [address] [place] [address], [address], 08/30/2024 17:49:46 08/26/19 25 08/30/2024 HIGH RISK DRUG PANEL hydromorphon e 186 NG/mL <50 high Not Available [facility] [address] [place] [address], [address], 08/30/2024 17:49:46 08/26/19 25 08/30/2024 HIGH RISK DRUG PANEL morphine NEGATI VE NG/mL <50 normal Not Available [facility] [address] [place] [address], [address], 08/30/2024 17:49:46 08/26/19 25 08/30/2024 HIGH RISK DRUG PANEL norhydrocodo ne 1612 NG/mL <50 high Not Available [facility] [address] [place] [address], [address], 08/30/2024 17:49:46 08/26/19 25 08/30/2024 HIGH RISK DRUG PANEL oxycodone NEGATI VE NG/mL <100 normal Not Available [facility] [address] [place] [address], [address], 08/30/2024 17:49:46 08/26/19 25 08/30/2024 HIGH RISK DRUG PANEL phencyclidin e NEGATI VE NG/mL <25 normal Not Available [facility] [address] [place] [address], [address], 08/30/2024 17:49:46 08/26/19 25 08/30/2024 HIGH RISK DRUG PANEL creatinine 226.2 mg/dL > or = 20.0 normal Not Available [facility] [address] [place] [address], [address], 08/30/2024 17:49:46 08/26/19 25 08/30/2024 HIGH RISK DRUG PANEL specific gravity 1.012 > or = 1.003 normal Not Available [facility] [address] [place], [address], 08/30/2024 17:49:46 08/26/1908/30/2024 HIGH RISK DRUG PANEL pH 5.7 4.5-9. 0 normal Not Available [facility] [address] [place], [address], 08/30/2024 17:49:46 08/26/1908/30/2024 HIGH RISK DRUG PANEL oxidant NEGATI VE mcg/m L <200 normal Not Available [facility] [address] [place], [address], 08/30/2024 17:49:46 08/26/1908/30/2024 HIGH RISK DRUG PANEL comment SEE NOTE normal This drug testi ng is for medic al treat ment only. Casey sis was perfo rmed as non-f orens ic testi ng and these resul ts shoul d be used only by healt hcare provi ders to rende r diagn osis or treat ment, or to monit or progr ess of medic al condi tions . Opiat es Notes : [place] codon e, Norhy droco done, [place] morph one detec abbie is consi stent with the use of the drug [place] codon e. [place] morph one detec abbie is consi stent with the use of the drug [place] morph one. [place] morph one can be a presc ribed drug and is also a metab olite of [place] codon e. Confi rmati on testi ng Perfo rmed at: [facility] [address] [place] [address] Labor atory Direc tor: ZEUS PEGUERO S CLIA: [id number] LDT Notes : Confi rmati on tests were devel oped and their casey tical perfo rmanc e cassidy cteri stics have been deter mined by [facility]. It has not been clear ed or appro do by the FDA. This assay has been valid ated pursu ant to the CLIA regul ation s and is used for clini jolanta purpo ses. Healt hcare Provi ders needi ng Inter preta tion paul tance , pleas e conta ct us at 1.877 .40.R XTOX (1.87 7.407 .9869 ) M-F, 8am to 10pm EST Not Available [facility] [address] [place] [address], [address], 08/30/2024 17:49:46 08/26/1908/30/2024 HIGH RISK DRUG PANEL fentanyl NEGATI VE NG/mL <0.5 normal Not Available [facility] [address] [place] [address], [address], 08/30/2024 17:49:46 08/26/1908/30/2024 HIGH RISK DRUG PANEL heroin metabolite, qt ur NEGATI VE NG/mL <10 normal Not Available [facility] [address] [place] [address], [address], 08/30/2024 17:49:46 04/14/19 25 04/14/2024 XR, lumbo sacra l spine , 2 or 3 view, bendi ng only [facility] [address] [place] [address], [place] [address] Patishashi morse Name: MARTHA morse : [address] Patish[address] t [...] Edin Luke MD on 04/14/19 12:15 PM [email or web address] [facility] [address], [address], 06/23/2024 15:57:27 Result Notes Documentation Provider Name and Address Organization Details Recorded Time Xr, Lumbosacral Spine, 2 Or 3 View, Bending Only : [address] [address] Patient Name: JACKELYN CRUZ Patient : 1960 [...] Interpreted By: Edin Luke MD ROQUE MD [address] [place] [address], [address], [facility] 06/23/2024 15:57:27 Problems Name Problem SNOMED Code Status Onset Date Resolution Date Notes Provider Name and Address Organization Details Recorded Time Low back pain 794717508 Active Status: Active Not Available [facility] 7 06:47:46 Disorder of bone and articular cartilage 115863319 Active 2015 Status: Active Not Available [facility] 6 05:37:02 Lumbosacr al radiculop athy 4218411 Active 2015 From Automated Load;Provi boris: Lux Fernández; atus: Active Not Available [facility] 7 08:30:56 Problem Notes None recorded. Procedures Surgical History Date Name Laterality Status Provider Name and Address Organization Details Recorded Time 04/10/19 Date of Last Mammogram completed Amira Hogan [facility] 05/04/2024 14:53:23 tonsillectomy completed [facility] 06/29/2021 11:07:23 partial hysterectomy completed [facility] 06/29/2021 11:07:41 cholecystectomy completed [facility] Ere SANDER [facility] 06/29/2021 11:07:49 Unlisted px accessory sinus completed [facility] 06/29/2021 11:08:12 Unlisted px phrnx adnd/tnsl completed [facility] 06/29/2021 11:08:24 procedure on vein completed [facility] 06/29/2021 11:08:40 Appendectomy completed [facility] 05/04/2024 14:53:09 Imaging Results None recorded. [...] Date: 2011 10:08 :22 AM; Not Available [facility] 6 12:52:49 902220 Celebrex medicatio n Not available Not available Not available 02/03/20162011 83730 7 RxNorm Comme nt: Creat ed By: Storm Cantu reneha d Date: 2011 10:08 :34 AM; Not Available [facility] 6 05:46:24 244911 Levaquin medicatio n Not available Not available Not available 02/03/20162011 33080 2 RxNorm Comme nt: Creat ed By: Storm Cantu reneha d Date: 2011 10:07 :37 AM; Not Available [facility] 6 08:06:37 920634 Macrobid medicatio n Not available Not available Not available 02/03/20162011 78420 1 RxNorm Comme nt: Creat ed By: Storm Bonner;Ruthie patrick Date: 2011 10:08 :04 AM; Not Available [facility] 6 08:06:37 119552 Product containin g penicilli n (product) medicatio n Not available Not available Not available 06/29/2021 88740 8001 SNOMED Kailey Valerie null, [facility] 2 11:02:22 965505 gabapenti n medicatio n Not available Not available Not available 06/29/2021 61313 RxNorm Kailey Valerie null, [facility] 2 11:02:39 765477 leflunomi de medicatio n Not available Not available Not available 06/29/2021 27063 RxNorm Kailey Valerie null, [facility] 2 11:02:54 037292 Naprosyn medicatio n Not available Not available Not available 06/29/2021 2 RxNorm Kailey Valerie null, [facility] 2 11:03:06 260554 dextromet horphan hydrobrom mónica medicatio n Not available Not available Not available 05/04/2024 53205 0 RxNorm Amira Hogan null, [facility] 5 15:09:56 915110 Omnicef medicatio n Not available Not available Not available 05/04/2024 17719 RxNorm Amiradary Hogan null, [facility] 5 15:10:19 826192 nortripty line medicatio n Not available Not available Not available 05/04/2024 7531 RxNorm Amira Hogan null, [facility] 5 15:10:37 929437 Lyrica medicatio n Not available Not available Not available 05/04/2024 82571 1 RxNorm Amira Hogan [facility] 15:10:45 Medications Name Sig Start Date [...] MOUTH EVERY 8 HOURS FOR 10 DAYS 08/25 completed Not Available Not Available [...] Body mass index (BMI) Body weight Systolic And Diastolic Provider Name and Address Organization Details Last Updated DateTime 04/14/2024 152.4 cm 34.2 kg/m2 68709.66 g 124/84 mm[Hg] Monse Prettymalachi [facility] 04/14/2024 13:20:34 Date Recorded Body height Body mass index (BMI) Body weight Oxygen saturation Oxygen saturation in Arterial blood by Pulse oximetry Inhaled oxygen flow rate Heart rate Systolic And Diastolic Provider Name and Address Organization Details Last Updated DateTime 5 152.4 cm 35.3 kg/m2 95612.2 2 g 96 % 96 % 2 L/min 70 /min 120/68 mm[Hg] [facility] 5 11:13:33 Date Recorded Body height Body mass index (BMI) Body weight Heart rate Oxygen saturation Oxygen saturation in Arterial blood by Pulse oximetry Systolic And Diastolic Provider Name and Address Organization Details Last Updated DateTime 5 152.4 cm 35.3 kg/m2 75289.4 3 g 69 /min 86 % 86 % 110/50 mm[Hg] Amira Hogan [facility] 5 15:03:21 Date Recorded Body height Body mass index (BMI) Body weight Oxygen saturation Oxygen saturation in Arterial blood by Pulse oximetry Inhaled oxygen flow rate Provider Name and Address Organization Details Last Updated DateTime 5 152.4 cm 35.7 kg/m2 00031.4 g 94 % 94 % 2 L/min [facility] 5 11:11:53 Date Recorded Body height Body mass index (BMI) Body weight Oxygen saturation Oxygen saturation in Arterial blood by Pulse oximetry Inhaled oxygen flow rate Heart rate Systolic And Diastolic Provider Name and Address Organization Details Last Updated DateTime 5 152.4 cm 34.8 kg/m2 08453.4 4 g 94 % 94 % 1 L/min 79 /min 122/64 mm[Hg] [facility] 10:45:12 Social History Question Answer Notes LastModified by Organizat ion Details LastModified Time Tobacco Smoking Status Former Smoker Blanca Gannon [facility] 11/19/2023 14:27:06 What Was The Date [...] 06/29/2021 Are you currently employed? No disabled [place] [address] Information not available 05/04/2024 Mental Status None recorded. Family History Relationship Description Onset Age of this Age Resolved Age Notes LastModified by Organization Details LastModified Time Unspecified Relation Malignant neoplastic disease [email or web address] Not available 04/12 14:49:35 Unspecified Relation Diabetes mellitus [email or web address] Not available 04/12 14:49:35 Mother Familial cancer of breast [email or web address] Not available 04/12 14:49:35 Mother Malignant tumor of pancreas [email or web address] Not available 2024 14:51:13 Mother Chronic obstructive pulmonary disease [email or web address] Not available 2024 14:51:40 Father Hypercholest erolemia [email or web address] Not available 2024 14:51:58 Medical History Condition [...] Liver Disease N Osteoporosis/Osteopenia Y Heart Attack ([place]) N Mental Illness Y Diabetes N Ovarian [...] SNOMED-CT Code Diagnosis ICD10 Code Diagnosis Note [id number] LUX FERNÁNDEZ MD [facility] [address] [place] [address] 01/18/2020 12:49:41 01/18/2020 15:14:53 Lumbar radiculopathy 276946585 M54.16 Time spent reviewing images, discussing the diagnosis and coordinati ng care: 30min [id number] DILIP BILL PA-C [facility] [address] [place] [address] 06/29/2021 10:15:51 07/04/2021 09:16:52 Lumbar radiculopathy 010819139 M54.16 [id number] GLENDA TUTTLE PA-C [facility] [address] [place] [address] 11/20/2021 10:07:54 11/27/2021 14:55:22 Lumbar spondylosis 928119760 M47.896 [id number] LUX FERNÁNDEZ MD SURGERY SCHEDULE [address] [place] [address] 02/09/2022 09:11:14 02/09/2022 10:30:20 [id number] LUX FERNÁNDEZ MD [facility] [address] [place] [address] 02/14/2022 13:50:04 02/26/2022 16:15:54 [id number] LUX FERNÁNDEZ MD [facility] [address] [facility] [address] [place] [address] 03/15/2022 09:39:55 03/16/2022 16:35:55 Postoperative care 924410184 Z48.89 [id number] JUANITA VALDERRAMA APRN [facility] [address] [place] [address] 10/03/2023 12:25:46 10/04/2023 04:49:26 Lumbar radiculopathy 662347661 M54.16 Compressio n fracture of lumbar spine 776724746 M48.56XA Impairment of balance 38 1046897 R26.89 Poor manual dexterity 30 4268084 R29.898 [id number] LIA ROQUE MD SURGERY SCHEDULE [address] [place] [address] 11/01/2023 13:01:26 11/05/2023 10:00:09 [id number] RAOUL KINSEY MD [facility] CLOSED [address] [place] [address] 1 11/19/2023 13:39:01 11/19/2023 15:00:53 Chronic low back pain 632167412 M54.50 Degenerati on of lumbar intervertebral disc 00164590 M51.36 Spinal hilda nosis of lumbar region 57026533 M48.062 [id number] RAOUL KINSEY MD [facility] [address] [place] [address] 1 11/26/2023 12:42:31 11/26/2023 12:56:48 Chronic low back pain 060826260 M54.50 Degenerati on of lumbar intervertebral disc 35742568 M51.36 Spinal hilda nosis of lumbar region 85261870 M48.062 [id number] BIANCA ESPAÑA PA-C [facility] [address] [place] [address] 11/26/2023 13:56:01 11/27/2023 04:57:02 Postoperative visit 887240318 Z48.89 [id number] RAOUL KINSEY MD [facility] CLOSED [address] [place] [address] 12/24/2023 12:33:05 12/24/2023 13:02:45 Chronic low back pain 962101041 M54.50 The prescripti on to be filled on 12/27/23 was cancelled. The prescripti on sent to [facility] was cancelled. Degenerati on of lumbar intervertebral disc 24713483 M51.362 Spinal hilda nosis of lumbar region 73686905 M48.062 [id number] BIANCA ESPAÑA PA-C [facility] [address] [facility] [address] 01/10/2024 09:40:04 01/11/2024 04:31:11 Lumbar radiculopathy 740703301 M54.16 [id number] RAOUL KINSEY MD PAIN MEDICINE CLOSED [address] [place] [address] 02/20/2024 12:35:26 02/20/2024 12:58:34 Chronic low back pain 234666266 M54.50 Degenerati on of lumbar intervertebral disc 55307028 M51.362 Spinal hilda nosis of lumbar region 28699129 M48.062 [id number] BIANCA ESPAÑA PA-C [facility] [address] [facility],[address] [place] [address] 04/14/2024 13:13:45 04/15/2024 08:29:03 Lumbar radiculopathy 817050753 M54.16 [id number] RAOUL KINSEY MD [facility] MED[facility]INE CLOSED [address] [place] [address] 04/16/2024 11:04:40 04/16/2024 11:22:08 Chronic low back pain 993166168 M54.50 Degenerati on of lumbar intervertebral disc 92336192 M51.362 Spinal hilda nosis of lumbar region 30878064 M48.062 [id number] NIHARIKA BOCANEGRA [place]N [place] [address] 05/04/2024 14:30:28 05/10/2024 04:08:11 Inversion of right nipple 0984949191 [id number] N64.59 Patient and I reviewed her medical [...] an as-needed basis. Decreased capillary filling time 69709753 R94.39 [id number] RAOUL KINSEY MD PAIN MEDICINE CLOSED [address] [place] [address] 06/25/2024 11:02:23 06/25/2024 11:26:16 Chronic low back pain 097974011 M54.50 Degenerati on of lumbar intervertebral disc 14941387 M51.362 Spinal hilda nosis of lumbar region 03049621 M48.062 [id number] RAOUL KINSEY MD PAIN MEDICINE [address] [place] [address] 08/25/2024 10:26:44 08/25/2024 10:55:10 Chronic low back pain 519183739 M54.50 Degenerati on of lumbar intervertebral disc 85032014 M51.362 Spinal hilda nosis of lumbar region 89756019 M48.062 Health Concerns Section Related Observation LastModified by Organization Detai ls LastModified Time None Recorded Concern Status LastModified by Organization Details LastModified Time None Recorded Advance Directives Directive None Recorded Payers Insurance Date Sequence Insurance Name Policy Number Policy Sanchez Covered Member ID Sanchez Member ID Guarantor Name 08/22/2024 1 [place] Jackelyn Cruz [id number] Jackelyn Cruz 10/15/2023 2 COMBINED INSURANCE - [employer] (MEDICARE SUPPLEMENT) Jackelyn Cruz [id number] Jackelyn Cruz Notes Date Note Type Note Provider Name and Address Organization Details Recorded Time 04/14/2024 text/html Jackelyn Cruz i s a [...] cannula during the day. 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 CBD-Denied. RAOUL KINSEY MD [address] [place] [address], [address], [facility] 04/16/2024 11:47:45 05/04/2024 text/html Jackelyn Cruz i [...] Her mammogram was completed last month at [facility] (images and reports in PACS), resulted BiRADS [...] risk = 3.85% by Raisa, v8. 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 CBD-Denied. RAOUL KINSEY MD [address] [place] [address], [phone], [facility] 06/25/2024 12:12:21 08/25/2024 text/html The pt complains of low [...] bladder-leaks. She states she does take an rctj-shd-iaebvor stool softener/laxative. She does not want to use anything regularly. The pt is sleeping approximately 2-3 hours per night. The pt is not working. The pt reports that she has not fallen since her last ov. The pt ambulates without an AD. The pt is accompanied by a friend at today s visit.Etoh-Denied. Tobacco-Denied. CBD-Denied. RAOUL KINSEY MD [facility] [place], [phone], [facility] 08/25/2024 11:07:39 OBGyn Episode No OBEpisode recorded.
--- OUTSIDE RECORDS SUMMARY | 2024-09-24 09:36 | XMS_ITS | Referral Summary ---
Author Organization [employer] ([place], [place], [place], [place]) Address [address] [place] [address] Care Team Providers Care Automotive Collision Repair Instructor Name Role Phone OrozcoKrystenrafael MIRANDA Primary Care [...] your living situation today? I have a [facility] place to live 10/13/2023 Think about [...] Do you speak a language other than Japanese at [facility]? No 10/13/2023 Do you want [...] on file Medical Devices Implanted Type Area Senior Electronics Technician Device Identifier Shelf Expiration Date Model / Serial / Lot Sealant Durasl Spine 5ml [id number] - [id number] Implanted:Qty: 1 on 01/31/2022 by Emeka Fernández MD at [facility] IMPLANTS N/A: Back [employer] L[employer] 07/09/2023202044 / [id number] Cement Spinal Confidence 2839-10-000 - [id number] Implanted:Qty: 2 on 10/14/2023 at [facility] IMPLANTS N/A: Back J &J:DEPUY:DEPUY SPINE 06/08/2025 0 / / [id number] Insurance MEDICARE PART A B GENERIC COMMERCIAL Advance Directives For more information, please contact: [phone] Documents on File Type Date Recorded Patient Nursing Agency Manager Expl anation Advance Directives and Marixa g [...] Son First Alternate Healthcare Decision-Maker Care Teams Automotive Collision Repair Instructor Relationship Specialty Start Date End Date Sandra Orozco, RUBEN [address] [place] [address] PCP - General Nurse Practitioner 01/24/22
--- NOTE | 2024-09-24 09:45 | MR_ITS ---
FINAL REPORT TECHNIQUE: Multiplanar MR, without contrast administration CLINICAL HISTORY: dizziness, slurred speech. history mini strokes. fatigue COMPARISON: 02/07/2018 FINDINGS: Diffusion sequences show no signal abnormalities to indicate acute infarct. There is mild generalized atrophy. There are numerous periventricular and subcortical white matter changes in both hemispheres, right greater than left. White matter signal changes have mildly progressed since prior exam. There is a tiny lacunar infarct in the left central kelsey having a chronic appearance. Ventricles are normal. No edema or hemorrhage is seen. Major vessel flow-voids are intact. IMPRESSION: Mild progression of chronic microvascular changes. No acute infarct or mass. Reviewed, Interpreted and Dictated by Pushpa Villanueva MD Transcribed by Deidre South Authenticated and [facility]
--- NOTE | 2024-09-24 10:30 | CA_ITS ---
FINAL REPORT CLINICAL HISTORY: dizziness, slurred speech, portable O2 COMPARISON: None FINDINGS: RIGHT CAROTID: CCA PSV -100.2 cm/sec ICA PSV -133 cm/sec ICA/CCA PSV ratio -2.15. Comments: Moderate plaque disease is noted. LEFTCAROTID: CCA PSV -81. cm/sec ICA PSV -154. cm/sec ICA/CCA PSV ratio -2.4. Comments: Moderate plaque disease is noted. Antegrade flow is seen within the vertebral arteries. IMPRESSION: Carotid stenosis classified less than 50%, with moderate plaque present. Reviewed, Interpreted and Dictated by Pushpa Villanueva MD Transcribed by Anais Fierro Authenticated and [facility]
== END 2024-09-24 23:59 | disposition home or self-care (01) ==
LOC: RAD 09:34
PROVIDERS: PCP Nurse Practitioner Family; Visit Provider Nurse Practitioner Family
DX: I65.23 Occlusion and stenosis of bilateral carotid arteries (principal); R90.89 Other abnormal findings on diagnostic imaging of central nervous system; R47.81 Slurred speech
CPT/HCPCS: 70551; 93880

== ENCOUNTER 2024-10-05 12:08 | Outpatient (CLI) | payer MEDICARE, OTHER, SELFPAY ==
--- OUTSIDE RECORDS SUMMARY | 2024-08-13 12:30 | XMS_ITS | Encounter Summary ---
Author Organization [facility] Address [address] [place] [address] Care Team Providers Care Trimming Department Blocker Name Role Phone Sandra Orozco APRN Primary Care Provider Reason for Visit * Reason Comments Hyperlipidemia Atrial Fibrillation SET PAD Shortness of Breath Encounter Details Date Type Department Care Team (Latest Contact Info) Description 08/13/2024 12:30 PM EDT Office Visit [facility] CARDIOLOGY [address] [facility] [address] [address] Dina Solano APRN [address] [facility] [address] [place] [address] Paroxysmal atrial fibrillation (Primary Dx); Chronic respiratory failure with hypoxia, on home O2 therapy; Moderate aortic valve regurgitation; Hyperlipidemia, unspecified hyperlipidemia type Social History Tobacco Use Types Packs/Day Years Used Date Smoking Tobacco: Former Cigarettes Smokeless Tobacco: Never Comments:Smoked since 1973 Alcohol Use Standard Drinks/Week Comments Not Currently 0 (1 standard drink = 0.6 oz pur e alcohol) former Comments Unknown Sex and Gender Information Value Date Recorded Sex Assigned at Female 07/09/2024 8:35 PM EDT Legal Sex Female 8:53 AM EST Gender Identity Not on file Sexual Orientation Straight 07/09/2024 8: 35 PM EDT documented as of this encounter Last Filed Vital Signs Vital Sign Reading Time Taken Comments Blood Pressure 114/70 08/13/2024 11:55 AM EDT Pulse 83 08/13/2024 11:55 AM EDT Temperature - - Respiratory Rate - - Oxygen Saturation - - Inhaled Oxygen Concentration - - Weight 81.2 kg (179 lb) 08/13/2024 11:55 AM EDT Height 152.4 cm (5') 08/13/2024 11:55 AM EDT Body Mass Index 34.96 08/13/2024 11:55 AM EDT documented in this encounter Patient Instructions * Attachments The following attachments cannot be sent through Care Everywhere. * ADVANCE CARE PLANNING AVS documented in this encounter Progress Notes * Dina Solano APRN - 08/13/2024 12:30 PM EDTAssociated Problem(s): Paroxysmal atrial fibrillation Continue bisoprolol 5 mg p.o. daily Continue Xarelto 15 mg p.o. daily Orders: CBC (No Diff); Future Comprehensive Metabolic Panel; Future * Dina Solano APRN - 08/13/2024 12:30 PM EDTAssociated Problem(s): Chronic respiratory failure with hypoxia, on home O2 therapy Continue follow-up with pulmonary Discussed with patient she becomes short of breath or wheezing is where she should follow-up with him or present to the emergency department * Dina Solano APRN - 08/13/2024 12:30 PM EDTAssociated Problem(s): Moderate aortic valve regurgitation 2D echo 1 year from now * Dina Solano APRN - 08/13/2024 12:30 PM EDT Images from the original note were not included. Cardiology Established Patient Note Name: Casi Cruz : 1960 PCP: Sandra Orozco APRN Date: 08/13/2024 Department: [facility] CARDIOLOGY [address] [facility] [address] [facility] [address] Chief Complaint: Chief Complaint Patient presents with Hyperlipidemia Atrial Fibrillation SET PAD Shortness of Breath Problem list: Paroxysmal atrial fibrillation/History of ischemic CVA/TIAs status post loop explant [id number] (Female, Age, CVA, PAD) PAF noted on loop from 2018 2. Moderate AR 2D echo 01/2023 EF 55% moderate aortic valve regurgitation Cardiac PET 04/15/2020 summed stress score 0 summed difference were 0 no ischemia 3. Hyperlipidemia 4. Peripheral arterial disease Abdominal duplex 10/2022 diffuse plaque noted in proximal and mid distal aorta. Focal plaque noted in the right distal and left distal LYDIA. Focal plaque noted in the right mid and left mid EIA AAA with runoff 01/2023 normal AAA with runoff 5. Chronic venous insufficiency Venous duplex 01/2024 negative for DVT, positive deep system reflux bilaterally, bilateral GSV's remain occluded following cath closure, incidental finding of interstitial edema. Subjective History of Present Illness Casi Cruz is a 64 y.o. female who presents today for routine follow-up. At last visit patient expressed concern over her declining functional capacity. Patient also reported to me that she has difficulty getting to our office and wanted to do most of her follow-ups with her primary care. Due to patient's worsening dyspnea on Exertion orthopnea and lower extremity edema a proBNP was ordered at last visit which was normal asalong with a chest x-ray revealed cardiopulmonary process. [facility] function, moderate RV dilation, mild AI. 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 Patient reports she feels that she is wheezing due to her allergies, patient has DuoNebs at home that she can use. Patient reports that sharp stabbing reproducible chest pain, discussed with patient symptoms that would warrant further evaluation. Current Outpatient Medications Medication Instructions bisoprolol (ZEBETA) 5 mg, Daily budesonide (PULMICORT) 0.5 mg, Daily - RT bumetanide (BUMEX) 1 mg, Daily clotrimazole (MYCELEX) 10 mg, 3 Times Daily dexlansoprazole (DEXILANT) 60 mg, Daily dicyclomine (BENTYL) 10 mg, 4 Times Daily Before Meals & Nightly fluconazole (DIFLUCAN) 200 MG tablet As Needed HYDROcodone-acetaminophen (NORCO) 10-325 MG per tablet 1 tablet, Every 4 Hours PRN hydrocortisone 2.5 % cream levocetirizine (XYZAL) 5 mg, Daily montelukast (SINGULAIR) 10 mg, Daily potassium chloride 10 MEQ CR tablet pramipexole (MIRAPEX) 1.5 MG tablet 3 Times Daily rosuvastatin (CRESTOR) 5 mg, Oral, Daily spironolactone (ALDACTONE) 25 mg, Daily tiZANidine (ZANAFLEX) 4 mg, Every 6 Hours PRN venlafaxine XR (EFFEXOR-XR) 150 MG 24 hr capsule Ventolin HFA 108 (90 Base) MCG/ACT inhaler Inhale 2 puffs every 4 hours by inhalation route as directed. Xarelto 15 mg, Oral, Daily With Dinner Lab Results Component Value Date GLUCOSE 77 07/16/2024 BUN 26 (H) 07/16/2024 CREATININE 0.84 07/16/2024 BCR 31.0 (H) 07/16/2024 K 4.2 07/16/2024 CO2 31.0 (H) 07/16/2024 CALCIUM 8.9 07/16/2024 No results found for: WBC , RBC , HGB , HCT , MCV , PLT No results found for: TSH No results found for: HGBA1C No results found for: CHOL , CHLPL , TRIG , HDL , LDL , LDLDIRECT No results found for: LIPOA No results found for: MICROALBUR No results found for: MALBCRERATIO eGFR Date Value Ref Range Status 07/16/2024 76.8 >60.0 mL/min/1.73 Final Objective Vital Signs: BP 114/70 (BP Location: Left arm, Patient Position: Sitting) Pulse 83 Ht 152.4 cm (60 ) Wt 81.2 kg (179 lb) BMI 34.96 kg/m?? Estimated body mass index is 34.96 kg/m?? as calculated from the following: Height as of this encounter: 152.4 cm (60 ). Weight as of this encounter: 81.2 kg (179 lb). Constitutional: Appearance: Healthy appearance. Eyes: Pupils: Pupils are equal, round, and reactive to light. HENT: Nose: Nose normal. Pulmonary: Effort: Pulmonary effort is normal. Breath sounds: Wheezing present. Cardiovascular: Normal rate. Regular rhythm. Pulses: Intact distal pulses. Abdominal: General: Bowel sounds are normal. Musculoskeletal: Normal range of motion. Cervical back: Normal range of motion. Skin: General: Skin is warm and dry. Neurological: General: No focal deficit present. Mental Status: Alert and oriented to person, place and time. Gait: Gait is intact. Assessment and Plan Assessment & Plan Paroxysmal atrial fibrillation Continue bisoprolol 5 mg p.o. daily Continue Xarelto 15 mg p.o. daily Orders: CBC (No Diff); Future Comprehensive Metabolic Panel; Future Chronic respiratory failure with hypoxia, on home O2 therapy Continue follow-up with pulmonary Discussed with patient she becomes short of breath or wheezing is where she should follow-up with him or present to the emergency department Moderate aortic valve regurgitation 2D echo 1 year from now Hyperlipidemia, unspecified hyperlipidemia type Patient has history of elevated lipoprotein a, not able to tolerate Repatha History of statin intolerance, but willing to try low-dose rosuvastatin FLP LFTs 8 weeks from now Orders: rosuvastatin (CRESTOR) 5 MG tablet; Take 1 tablet by mouth Daily. Comprehensive Metabolic Panel; Future Lipid Panel; Future Follow Up Return in about 3 months (around 11/13/2024). [facility] Cardiology documented in this encounter Plan of Treatment Upcoming Encounters Date Type Department Care Team (Late st Contact Info) Description 11/17/2024 12:30 PM EDT Office Visit [facility] CARDIOLOGY [address] [facility] [address] [place] [address] Dina Solano APRN [address] [facility] [address] [place] [address] Scheduled Orders Name Type Priority Associated Diagnoses Orde r Schedule CBC (No Diff) Lab Routine Paroxysmal atrial fibrillation Expected: 11/11/2024 (Approximate), Expires: 08/13/2025 Comprehensive Metabolic Panel Lab Routine Paroxysmal atrial fibrillation Hyperlipidemia, unspecified hyperlipidemia type Expected: 11/11/2024 (Approximate), Expires: 08/13/2025 Lipid Panel Lab Routine Hyperlipidemia, unspecified hyperlipidemia type Expected: 11/11/2024 (Approximate), Expires: 08/13/2025 documented as of this encounter Visit Diagnoses Diagnosis Paroxysmal atrial fibrillation- Primary Atrial fibrillation Chronic respiratory failure with hypoxia, on home O2 therapy Moderate aortic valve regurgitation Hyperlipidemia, unspecified hyperlipidemia type documented in this encounter Care Teams Trimming Department Blocker Relationship Specialty Start Date End Date Sandra Orozco APRN [address] [address] PCP - General Internal Medicine 05/11/24 documented as of this encounter
[2024-10-05 14:35] LABS: Uric Acid 4.4 mg/dl (2.5-6.2)
[2024-10-06 08:12] LABS: RA Latex Turbid. 13.3 IU/mL (<14.0)
[2024-10-06 11:38] LABS: Antinuclear Antibodies, IFA Negative (.)
--- OUTSIDE RECORDS SUMMARY | 2024-10-06 15:30 | XMS_ITS | Clinical Summary ---
Author Organization [facility] Address [address] [place] [address] Care Team Providers Care Coil Cleaner Name Role Phone Adryan Cooper MD Primary Care Provider + [phone] Allergies Active Allergy Reactions Criticality Noted Date [...] tablet (5 mg). 05/28/2016 Active HYDROcodone-gudelia taminophen ([place]) 10-325 MG tablet 1 tablet (10 mg [...] 2) 2008 [facility]-Breast Cancer Screening 04/06/201703/12, 04/06/2015 LXY-ETAPL-87 Vaccine ( season) 2023 01/20/2021, 06/16/2020 [facility]-Influenza [...] MEDICARE COMBINED PRIORITY 1 CARD Care Teams Coil Cleaner Relationship Specialty Start Date End Date Adryan Cooper MD [address] [address] [place] [address] PCP - General 07/22/20
--- OUTSIDE RECORDS SUMMARY | 2024-10-06 15:30 | XMS_ITS | Data Portability ---
Author Organization [facility] Office Address [address] [address] Care Team Providers Care Assisted Living Executive Director Name Role Phone GLADIS DELCID Primary [...] to mix with alcohol, or self-escalate it. [email or web address] Not available 12/10/2021 19:02:32 Plan of Treatment Reminders Order Date Submit Date Provider Last Modified By Organization Details Last Modified Time Details Appointments None recorded. Lab None recorded. Referral None recorded. Procedures None recorded. Surgeries None recorded. Imaging None recorded. Medication Orders [place] 10 mg-325 mg tablet 2021 022 [facility], [facility] [address] [place], [phone], 17:21:53 tizanidine 2 mg tablet 2021 022 [place] [facility] [address] [place], [phone], 2 16:55:31 Patient TargetsNo targets recorded. Patient Instructions Encounter Date Encounter Id Patient Instructions Last Modified By Organization Details Last Modified Time 12/06/2021 [id number] Patient is to us e non-pharmacologic measures for mild pain and use opioid as needed only for moderate pain, to use before pain is severe to be most effective. patient is to try heat, ice, rest, repositioning, tens, massage, stretching, walking, and meditation prior to opioid use. Not available 12/10/2021 19:03:33 Patient seen today incident to a physician s previously established diagnosis and plan of care. Follow-up care provided today under the plan of care of: Aaliyah Olson MD and supervision of: Aaliyah Olson MD. [email or web address] Not available 12/10/2021 19:03:54 Reason for Referral None Reported. Problems Name Problem SNOMED Code Status Onset Date Resolution Date Notes Provider Name and Address Organization Details Recorded Time Chronic pain 36658758 Active 2020 (G89.29)O ther chronic pain Not Available [facility] 2 22:51:15 Spondylos is without myelopath y 49386861 Active 2020 (M47.816) Spondylos is without myelopath y or radiculop athy, lumbar region Not Available [facility] 2 22:51:15 Lumbosacr al spondylos is without myelopath y 18980793 Active 2020 (M47.817) Spondylos is without myelopath y or radiculop athy, lumbosacr al region Not Available [facility] 2 22:51:15 Degenerat ion of lumbosacr al intervert ebral disc 79736319 Active 2020 (M51.37)O ther intervert ebral disc degenerat ion, lumbosacr al region Not Available [facility] 2 22:51:15 Lumbosacr al radiculop athy 9650027 Active 2020 (M54.17)R adiculopa thy, lumbosacr al region Not Available [facility] 2 22:51:15 Muscle pain 58256543 Active 2020 (M79.1)My algia Not Available [facility] 2 22:51:15 Pre-surge ry testing Active 2020 (Z01.812) Encounter for preproced ural laborator y examinati on Not Available [facility] 2 22:51:16 Opioid dependenc e 47305165 Active 2020 (F11.20)O pioid dependenc e, uncomplic ated Not Available [facility] 2 22:51:15 Long-term current use of opiate analgesic drug 72681837174 4108 Active 2020 (Z79.891) [facility] (current) use of opiate analgesic Not Available [facility] 2 22:51:16 Lumbar spondylos is 420568073 Active 2020 (M47.26)O ther spondylos is with radiculop athy, lumbar region Not Available [facility] 2 22:51:15 Lumbosacr al spondylos is with radiculop athy 931068978 Active 2020 (M47.27)O ther spondylos is with radiculop athy, lumbosacr al region Not Available [facility] 2 22:51:15 Spasm of back muscles 712027598 Active 2021 [facility] 2 16:53:49 Problem Notes None recorded. Medical Equipment None Reported. Allergies Allergen ID Allergen Name Allergen Category Reaction Reaction Severity Criticality Documentation Date Start Date Code Code System Note Provider Name and Address Organization Details Recorded Time 75581 Celebrex medicatio n Not available Not available Not available 07/11/20212020 61910 7 RxNorm React ion: Blood in stool s(Mil d) Not Available [facility] 2 22:02:48 73496 leflunomi de Not available Not available Not available Not available 07/11/20212020 42839 RxNorm React ion: reall y bad sores (Mild ) Not Available [facility] 2 22:02:48 12963 Penicilli n Not available itching mild Not available 07/11/20212020 14379 RxNorm Not Available [facility] 2 22:02:48 31427 gabapenti n medicatio n Not available Not available Not available 07/11/20212020 89386 RxNorm React ion: BAD swell ing(M ild) Not Available [facility] 2 22:02:48 98177 nortripty line hydrochlo ride medicatio n Not available Not available Not available 07/11/2021202013 0 RxNorm Not Available [facility] 2 22:02:48 91733 Naprosyn medicatio n Not available Not available Not available 07/11/20212020 2 RxNorm React ion: throa t clos ed (M ild) Not Available [facility] 2 22:02:48 16739 Macrobid medicatio n Not available Not available Not available 07/11/20212020 13382 1 RxNorm React ion: hives and itchi ng(Mi ld) Not Available [facility] 2 22:02:48 Medications Name Sig Start Date [...] Updated DateTime 2 152.4 cm 28.1 kg/m2 54007.3 g 98.9 [degF] 62 /min 97 % [...] SNOMED-CT Code Diagnosis ICD10 Code Diagnosis Note [id number] Claribel Ramsay, SOLUTIONS CONSULTANT [address] [facility] [address] [place] [address] 12/06/2021 16:00:41 12/07/2021 16:37:14 Long-term current use of opiate analgesic drug 7434636882 38856 Z79.891 Patient is noted to be low risk for opioids due to: previous hx of compliance UDS reviewed on and is Appropriat e all previous MOHSEN reviewed and is Appropriat e Opioid dependence 625764 00 F11.20 Medication compliance : According to [...] follows none Lumbosacra l spondylosis with radiculopathy 616167184 M47.27 patient says she is able to usually make this this Rx last about 2 month is using only prn would like to come back in 2 months Spasm of back muscles 20 7025226 M62.830 stable with meds, no changes Health Concerns Section Related Observation LastModified by Organization Detai ls LastModified Time None Recorded Concern Status LastModified by Organization Details LastModified Time None Recorded Advance Directives Directive None Recorded Payers Insurance Date Sequence Insurance Name Policy Number Policy Sanchez Covered Member ID Sanchez Member ID Guarantor Name 12/06/2021 1 [place] Casi Cruz [id number] Casi Cruz 12/06/2021 2 COMBINED INSURANCE - [employer] (MEDICARE SUPPLEMENT) Casi Cruz [id number] Casi Cruz OBGyn Episode No OBEpisode recorded.
--- OUTSIDE RECORDS SUMMARY | 2024-10-06 15:30 | XMS_ITS | Referral Summary ---
Author Organization [employer] ([place], [place], [place], [place]) Address [address] [place] [address] Care Team Providers Care Deputy Sheriff Generalist/Bailiff Name Role Phone OrozcoKrystenrafael MIRANDA Primary Care [...] you? Never 10/13/2023 How often does anyone, klaeb fine family and friends, insult or talk down to you? Never 10/13/2023 How often does anyone, kaleb fine family and friends, threaten you with harm? Never 10/13/2023 How often does anyone, kaleb fine family and friends, scream or curse at you? Never 10/13/2023 Housing Stability Answer Date Recorded What is your living situation today? I have a [facility] place to live 10/13/2023 Think about the [...] speak a language other than Maori at [facility]? No 10/13/2023 Do you want [...] on file Medical Devices Implanted Type Area Data Management Device Identifier Shelf Expiration Date Model / Serial / Lot Sealant Durasl Spine 5ml [id number] - [id number] Implanted:Qty: 1 on 01/31/2022 by Emeka Fernández MD at [facility] IMPLANTS N/A: Back [employer] 07/09/2023733412 / [id number] Cement Spinal Confidence 2839-10-000 - [id number] Implanted:Qty: 2 on 10/14/2023 at [facility] IMPLANTS N/A: Back J &J:DEPUY:DEPUY SPINE 06/08/2025 0 / / [id number] Insurance MEDICARE PART A B GENERIC COMMERCIAL Advance Directives For more information, please contact: [phone] Documents on File Type Date Recorded Patient Securities Broker Expl anation Advance Directives and Marixa g [...] Son First Alternate Healthcare Decision-Maker Care Teams Deputy Sheriff Generalist/Bailiff Relationship Specialty Start Date End Date Sandra Orozco, RUBEN [address] [place] [address] PCP - General Nurse Practitioner 01/24/22
--- OUTSIDE RECORDS SUMMARY | 2024-10-06 15:30 | XMS_ITS | Continuity of Care Document ---
Author Organization [facility], PAIN MEDICINE [address] [place] [address] Care Team Providers Care Datapower Developer Name Role Phone GLADIS DELCID Primary Care Provider [phone] Assessment Encounter Date Assessment Date Assessment LastModified by Organization Details LastModified Time 08/25/2024 08/25/2024 Plan: I have personally reviewed this patient's MOHSEN report as per [facility] board guidelines and it was [...] mg-acetam inophen 325 mg tablet 2024 025 [facility], [address] [place] [address] Sergio Dumont [place], [phone], 08/25/2024 11:08:17 hydrocodo ne 5 mg-acetam inophen 325 mg tablet 2024 025 [facility], [address] [place] [address] Sergio Dumont [place], [phone], 08/25/2024 11:08:18 Patient TargetsNo targets recorded. Patient InstructionsNo instructions recorded. Reason for Referral None Reported. Results Created Date Observation Date Name Description Value Unit Range Abnormal Flag Note LastModifiedBy Organization Detail LastModifiedTime 08/26/1908/27/2024 HIGH RISK DRUG PANEL gabapentin NEGATI VE NG/mL <1000 normal Not Available [facility] [address] [place] [address], [address], 08/30/2024 17:49:46 08/26/19 25 08/27/2024 HIGH RISK DRUG PANEL pregabalin, qt ur NEGATI VE NG/mL <1000 normal Not Available [facility] [address] [place] [address], [address], 08/30/2024 17:49:46 08/26/19 25 08/27/2024 HIGH RISK DRUG PANEL desmethyltra madol NEGATI VE NG/mL <100 normal Not Available [facility] [address] [place] [address], [address], 08/30/2024 17:49:46 08/26/19 25 08/27/2024 HIGH RISK DRUG PANEL tramadol NEGATI VE NG/mL <100 normal Not Available [facility] [address] [place] [address], [address], 08/30/2024 17:49:46 08/26/19 25 08/27/2024 HIGH RISK DRUG PANEL tapentadol NEGATI VE NG/mL <50 normal Not Available [facility] [address] [place] [address], [address], 08/30/2024 17:49:46 08/26/19 25 08/27/2024 HIGH RISK DRUG PANEL nortapentado l NEGATI VE NG/mL <50 normal Not Available [facility] [address] [place] [address], [address], 08/30/2024 17:49:46 08/26/19 25 08/27/2024 HIGH RISK DRUG PANEL ethyl glucuronide NEGATI VE NG/mL <500 normal Not Available [facility] [address] [place], [address], 08/30/2024 17:49:46 08/26/19 25 08/27/2024 HIGH RISK DRUG PANEL ethyl sulfate NEGATI VE NG/mL <100 normal Not Available [facility] [address] [place] [address], [address], 08/30/2024 17:49:46 08/26/19 25 08/27/2024 HIGH RISK DRUG PANEL buprenorphin e NEGATI VE NG/mL <2 normal Not Available [facility] [address] [place] [address], [address], 08/30/2024 17:49:46 08/26/19 25 08/27/2024 HIGH RISK DRUG PANEL norbuprenorp shadi NEGATI VE NG/mL <2 normal Not Available [facility] [address] [place] [address], [address], 08/30/2024 17:49:46 08/26/19 25 08/27/2024 HIGH RISK DRUG PANEL naloxone NEGATI VE NG/mL <2 normal Not Available [facility] [address] [place] [address], [address], 08/30/2024 17:49:46 08/26/19 25 08/30/2024 HIGH RISK DRUG PANEL amphetamines NEGATI VE NG/mL <500 normal Not Available [facility] [address] [place] [address], [address], 08/30/2024 17:49:46 08/26/19 25 08/30/2024 HIGH RISK DRUG PANEL barbiturates NEGATI VE NG/mL <300 normal Not Available [facility] [address] [place] [address], [address], 08/30/2024 17:49:46 08/26/19 25 08/30/2024 HIGH RISK DRUG PANEL benzodiazepi rufus NEGATI VE NG/mL <100 normal Not Available [facility] [address] [place] [address], [address], 08/30/2024 17:49:46 08/26/19 25 08/30/2024 HIGH RISK DRUG PANEL marijuana metabolite NEGATI VE NG/mL <20 normal Not Available [facility] [address] [place] [address], [address], 08/30/2024 17:49:46 08/26/19 25 08/30/2024 HIGH RISK DRUG PANEL cocaine metabolite NEGATI VE NG/mL <150 normal Not Available [facility] [address] [place] [address], [address], 08/30/2024 17:49:46 08/26/19 25 08/30/2024 HIGH RISK DRUG PANEL methadone metabolite NEGATI VE NG/mL <100 normal Not Available [facility] [address] [place] [address], [address], 08/30/2024 17:49:46 08/26/19 25 08/30/2024 HIGH RISK DRUG PANEL opiates POSITI VE NG/mL <100 abnormal Not Available [facility] [address] [place] [address], [address], 08/30/2024 17:49:46 08/26/19 25 08/30/2024 HIGH RISK DRUG PANEL codeine NEGATI VE NG/mL <50 normal Not Available [facility] [address] [place] [address], [address], 08/30/2024 17:49:46 08/26/19 25 08/30/2024 HIGH RISK DRUG PANEL hydrocodone 3424 NG/mL <50 high Not Available [facility] [address] [place] [address], [address], 08/30/2024 17:49:46 08/26/19 25 08/30/2024 HIGH RISK DRUG PANEL hydromorphon e 186 NG/mL <50 high Not Available [facility] [address] [place] [address], [address], 08/30/2024 17:49:46 08/26/19 25 08/30/2024 HIGH RISK DRUG PANEL morphine NEGATI VE NG/mL <50 normal Not Available [facility] [address] [place] [address], [address], 08/30/2024 17:49:46 08/26/19 25 08/30/2024 HIGH RISK DRUG PANEL norhydrocodo ne 1612 NG/mL <50 high Not Available [facility] [address] [place] [address], [address], 08/30/2024 17:49:46 08/26/19 25 08/30/2024 HIGH RISK DRUG PANEL oxycodone NEGATI VE NG/mL <100 normal Not Available [facility] [address] [place] [address], [address], 08/30/2024 17:49:46 08/26/19 25 08/30/2024 HIGH RISK DRUG PANEL phencyclidin e NEGATI VE NG/mL <25 normal Not Available [facility] [address] [place] [address], [address], 08/30/2024 17:49:46 08/26/19 25 08/30/2024 HIGH RISK DRUG PANEL creatinine 226.2 mg/dL > or = 20.0 normal Not Available [facility] [address] [place] [address], [address], 08/30/2024 17:49:46 08/26/19 25 08/30/2024 HIGH RISK DRUG PANEL specific gravity 1.012 > or = 1.003 normal Not Available [facility] [address] [place] [address], [address], 08/30/2024 17:49:46 08/26/19 25 08/30/2024 HIGH RISK DRUG PANEL pH 5.7 4.5-9. 0 normal Not Available [facility] [address] [place] [address], [address], 08/30/2024 17:49:46 08/26/19 25 08/30/2024 HIGH RISK DRUG PANEL oxidant NEGATI VE mcg/m L <200 normal Not Available [facility] [place], [address], 08/30/2024 17:49:46 08/26/19 25 08/30/2024 HIGH RISK DRUG PANEL comment SEE NOTE [...] condi tions . Opiat es Notes : [place] codon e, Norhy droco done, [place] morph one detec abbie is consi stent with the use of the drug [place] codon e. [place] morph one detec abbie is consi stent with the use of the drug [place] morph one. [place] morph one can be a presc ribed drug and is also a metab olite of [place] codon e. Confi rmati on testi ng Perfo rmed at: [facility] [address] [place] [address] Labor atory Direc tor: ZEUS Dumont CLIA: [id number] LDT Notes : Confi rmati on tests [...] M-F, 8am to 10pm EST Not Available [facility] [address] [place], [address], 08/30/2024 17:49:46 08/26/19 25 08/30/2024 HIGH RISK DRUG PANEL fentanyl NEGATI VE NG/mL <0.5 normal Not Available [facility] [address] [place], [address], 08/30/2024 17:49:46 08/26/19 25 08/30/2024 HIGH RISK DRUG PANEL heroin metabolite, qt ur NEGATI VE NG/mL <10 normal Not Available [facility] [address] [place], [address], 08/30/2024 17:49:46 Result Notes None recorded. 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 Procedures Surgical History Date Name Laterality Status Provider Name and Address Organization Details Recorded Time 04/10/19 Date of Last Mammogram completed Amira Hogan [facility] 05/04/2024 14:53:23 tonsillectomy completed [facility] Valerie [facility] 06/29/2021 11:07:23 partial hysterectomy completed Kailey BOUCHER [facility] 06/29/2021 11:07:41 cholecystectomy completed Kailey BOUCHER [facility] 06/29/2021 11:07:49 Unlisted px accessory sinus completed Kailey Padilla [facility] 06/29/2021 11:08:12 Unlisted px phrnx adnd/tnsl completed Kailey Valerie [facility] 06/29/2021 11:08:24 procedure on vein completed [facility] Valerie Arroyo [facility] 06/29/2021 11:08:40 Appendectomy completed Amira Hogan [facility] 05/04/2024 14:53:09 Imaging Results None recorded. Procedure Notes None recorded. Medical Equipment None Reported. Allergies Allergen ID Allergen Name Allergen Category Reaction Reaction Severity Criticality Documentation Date Start Date Code Code System Note Provider Name and Address Organization Details Recorded Time 488588 Cipro medicatio n Not available Not available Not available 02/02/2016201156 3 RxNorm Comme nt: Creat ed By: Storm Bonner;C reate d Date: 2011 10:08 :22 AM; Not Available [facility] 6 12:52:49 446481 Celebrex medicatio n Not available Not available Not available 02/03/20162011 49110 7 RxNorm Comme nt: Creat ed By: Storm Bonner;C reate d Date: 2011 10:08 :34 AM; Not Available [facility] 6 05:46:24 498778 Levaquin medicatio n Not available Not available Not available 02/03/20162011 52234 2 RxNorm Comme nt: Creat ed By: Storm Bonner;C reate d Date: 2011 10:07 :37 AM; Not Available [facility] 6 08:06:37 752384 Macrobid medicatio n Not available Not available Not available 02/03/20162011 43270 1 RxNorm Comme nt: Creat ed By: Storm Bonner;C reate d Date: 2011 10:08 :04 AM; Not Available [facility] 6 08:06:37 208745 Product containin g penicilli n (product) medicatio n Not available Not available Not available 06/29/2021 78835 8001 SNOMED Kailey haney [facility] 2 11:02:22 491382 gabapenti n medicatio n Not available Not available Not available 06/29/2021 73076 RxNorm Kailey haney [facility] 2 11:02:39 615462 leflunomi de medicatio n Not available Not available Not available 06/29/2021 52659 RxNorm Kailey Valerie [facility] 2 11:02:54 232976 Naprosyn medicatio n Not available Not available Not available 06/29/2021 2 RxNorm Kailey Castellanodie [facility] 2 11:03:06 178563 dextromet horphan hydrobrom mónica medicatio n Not available Not available Not available 05/04/2024 20444 0 RxNorm Amira Hogan [facility] 5 15:09:56 305166 Omnicef medicatio n Not available Not available Not available 05/04/2024 91809 RxNorm Amira Hogan [facility] 5 15:10:19 847388 nortripty line medicatio n Not available Not available Not available 05/04/2024 7531 RxNorm Amira Hogan [facility] 5 15:10:37 583264 Lyrica medicatio n Not available Not available Not available 05/04/2024 67748 1 RxNorm Amira Hogan [facility] 5 15:10:45 Medications Name Sig Start [...] Available Not Available No t Available Dexilant 09/10 /2024 completed Medicati on Descript ion: dexlanso prazole; [...] height Body mass index (BMI) Body weight Pain severity - 0-10 verbal numeric rating [Score] - Reported Oxygen saturation Oxygen saturation in Arterial blood by Pulse oximetry Inhaled oxygen flow rate Heart rate Systolic And Diastolic Provider Name and Address Organization Details Last Updated DateTime 152.4 cm 34.8 kg/m2 17214.4 4 g 9 94 % 94 % 1 L/min 79 /min 122/64 mm[Hg] Blanca Gannon [facility] 10:45:12 Social History Question Answer Notes LastModified by Organizat ion Details LastModified Time Tobacco Smoking Status Former Smoker Blanca Gannon [facility] 11/19/2023 14:27:06 What Was The Date Of Your Most Recent Tobacco Screening? 08/25/2024 [email or web address] Information not available 08/25/2024 How Much Tobacco [...] 06/29/2021 Are you currently employed? No disabled [place] [address] Information not available 05/04/2024 Mental Status None recorded. Family History Relationship Description Onset Age of this Age Resolved Age Notes LastModified by Organization Details LastModified Time Unspecified Relation Malignant neoplastic disease [email or web address] Not available 04/12 14:49:35 Unspecified Relation Diabetes mellitus [email or web address] Not available 04/12 14:49:35 Mother Familial cancer of breast [email or web address] Not available 04/12 14:49:35 Mother Malignant tumor of pancreas [email or web address] Not available 2024 14:51:13 Mother Chronic obstructive pulmonary disease [email or web address] Not available 2024 14:51:40 Father Hypercholest erolemia Not available 2024 14:51:58 Medical History Condition Response Other N Thyroid Disease N Kidney Stones N Breast Cancer N Blood Transfusion N Emphysema Y Colon/Rectal Disorders N Sexually Transmitted Disease N Glaucoma N COPD Y Depression Y Pneumonia Y Breast Problem Y Attempted Suicide N Varicose Veins Y Anxiety Disorder Y Hearing Loss Y Arthritis Y Cancer N Stroke Y Crohn's Disease N Radiation Therapy N Blood Thinners N Liver Disease N Fibromyalgia Y Headaches N Kidney Disease N Endocrine Disorder N Skin Problems Y Osteoporosis/Osteopenia Y Heart Attack ([place]) N Ulcers N Mental Illness Y Ovarian Cancer N Diabetes N Bleeding Disorder N AIDS/HIV N Congestive Heart Failure (CHF) Y Eczema N Diverticulitis N Asthma Y Epilepsy/Seizures N Sleep Apnea Y Thyroid Disorder N Heart Disease N Osteoporosis N Gynecological History [...] SNOMED-CT Code Diagnosis ICD10 Code Diagnosis Note [id number] RAOUL KINSEY MD PAIN MEDICINE [address] [facility] [place] [address] 08/25/2024 10:26:44 08/25/2024 10:55:10 Chronic low back pain 478553407 M54.50 Degenerati on of lumbar intervertebral disc 65721173 M51.362 Spinal hilda nosis of lumbar region 71289893 M48.062 Health Concerns Section Related Observation LastModified by Organization Detai ls LastModified Time None Recorded Concern Status LastModified by Organization Details LastModified Time None Recorded Payers Encounter Date Sequence Insurance Name Policy Number Policy Sanchez Covered Member ID Sanchez Member ID Guarantor Name 08/25/2024 1 [place] Casi Cruz [id number] Casi Cruz 08/25/2024 2 [employer]BINED INS[employer]ANCE - [employer] (MEDICARE SUPPLEMENT) Casi Cruz [id number] Casi Cruz OBGyn Episode No OBEpisode recorded.
--- OUTSIDE RECORDS SUMMARY | 2024-10-06 15:31 | XMS_ITS | Encounter Summary ---
Author Organization [employer] ([place], [place], [place], [place]) Address [address] [place] [address] Care Team Providers Care Hide Splitter Name Role Phone Sandra Orozco APRN Primary Care Provider [phone] Encounter Details Date Type Department Care Team (Late st Contact Info) Description 05/19/2021 Transcribed Document [facility] [place] [address] [place] [address] ProviderAide MD [address] [place] [address] Social History Tobacco Use Types [...] your living situation today? I have a [facility] place to live 10/13/2023 Think [...] Do you speak a language other than Bulgarian at [facility]? No 10/13/2023 [...] - Historical Provider, - 05/19/2021 12:51 PM PRODUCTION WELDER PAT Adult Entered On: 05/19/2021 12:55 EST [...] Source : Stated Height Entry Format : [place] Height, Feet : 5 ft(Converted to: 152 cm, 60 Inch) Height, Inches : 0 Inch(Converted to: 0 ft 0 Inch, 0.00 cm) Clinical Height : 152.4 cm Weight Source : Standing scale Weight Entry Format : [place] Clinical Dosing Weight : 69.09 kg Weight, Pounds : 152 lb Body Surface Area (BSA) : 1.66 m2 Body Mass Index : 29.7 kg/m2 (HI) [place] Body Weight : 45 kg AZUCENA PALACIO [...] Directive information AZUCENA PALACIO 05/19/2021 12:51 EST [place] Suicide Severity Rating Scale (C-SSRS) CSSRS Past [...] Person/Pt Rep Contact Information : LUDWIN FOOTE [phone] STEP MOM Want Family/Rep/Phys Notified of Admit : No Communication Barrier : None AZUCENA PALACIO 05/19/2021 12:51 EST Lrary Scale Larry Sensory Perception : Slightly limited [...] on filedocumented in this encounter Care Teams Hide Splitter Relationship Specialty Start Date End Date Sandra Orozco APRN [address] [address] PCP - General Nurse Practitioner 01/24/22 documented as of this encounter
--- OUTSIDE RECORDS SUMMARY | 2024-10-06 15:31 | XMS_ITS | Encounter Summary ---
Author Organization [facility] y[facility] Address [address] [place] [address] Care Team Providers Care Glass Frame Fitter Name Role Phone Sandra Orozco APRN Primary Care Provider [phone] Reason for Visit * Reason Onset Date Comments Med Refill 08/27/2024 Encounter Details Date Type Department Care Team (Late st Contact Info) Description 08/27/2024 Refill [facility] [address] [facility] [address] [place] [phone] Christy Bertrand MD [address] [facility] [address] [place] [address] Med Refill Social History Tobacco Use Types Packs/Day Years [...] PM EDT documented as of this encounter Miscellaneous Notes * Telephone Encounter - Radha Goodman MA - 08/27/2024 10:28 AM EDT PER FAX REQUEST: Rx Refill Note Requested Prescriptions Signed Prescriptions Disp Refills Xarelto 15 MG tablet 90 tablet 1 Sig: Take 1 tablet by mouth Daily With Dinner. Authorizing Provider: CHRISTY BERTRAND Ordering User: RADHA GOODMAN Last office visit with prescribing clinician: 05/11/2024 Last telemedicine visit with prescribing clinician: Visit date not found Next office visit with prescribing clinician: 11/17/24 Pharmacy Info Last Fill Date: Rx Written Date: Prescribed Qty: Additional Details from Pharmacy: Patient passed protocols per ed. Radha Goodman MA 08/27/24, 10:30 EDT documented in this encounter Plan of Treatment Upcoming Encounters Date Type Department Care Team (Late st Contact Info) Description 11/17/2024 12:30 PM EDT Office Visit [facility] [address] [facility] [address] [place] [address] Dina Solano APRN [address] [facility] [address] [place] [address] documented as of this encounter Visit Diagnoses Not on filedocumented in this encounter Care Teams Glass Frame Fitter Relationship Specialty Start Date End Date Sandra Orozco APRN [address] [address] PCP - General Internal Medicine 05/11/24 documented as of this encounter
--- OUTSIDE RECORDS SUMMARY | 2024-10-06 15:31 | XMS_ITS | Encounter Summary ---
Author Organization [employer] ([place], [place], [place], [place]) Address [address] [place] [address] Care Team Providers Care Mailroom Coordinator Name Role Phone OrozcoSandra randhawa RUBEN Primary Care Provider Encounter Details Date Type Department Care Team (Late st Contact Info) Description 03/01/2020 Transcribed Document [facility] [place] Medicine [facility] [place] [address] ProviderAide MD [address] [place] [address] Social History Tobacco Use Types Packs/Day [...] Historical MD Derek - 03/01/2020 11:34 AM EXTRUDING DEPARTMENT SUPERVISOR DATE OF PROCEDURE: 03/01/2020 SURGEON: Noemi Mayfield [...] 18-gauge Tuohy needle was advanced by the [id number]-[id number] technique under direct fluoroscopic guidance into the [...] visit and the patient has been afebrile. /[id number] Noemi Mayfield MD, JELANI Pain Certified DELILAH/ANTHONY / KR / MODL /[id number] documented in this encounter Plan of Treatment Not on file documented as of this encounter Visit Diagnoses Not on filedocumented in this encounter Care Teams Mailroom Coordinator Relationship Specialty Start Date End Date Sandra Orozco, WATER QUALITY CONTROL ENGINEER [address] [place] [address] PCP - General Nurse Practitioner 01/24/22 documented as of this encounter
--- OUTSIDE RECORDS SUMMARY | 2024-10-06 15:31 | XMS_ITS | Encounter Summary ---
Author Organization [employer] ([place], [place], [place], [place]) Address [address] [place] [address] Care Team Providers Care Engineering Manager Name Role Phone Sandra Orozco APRN Primary Care Provider [phone] Encounter Details Date Type Department Care Team (Late st Contact Info) Description 05/19/2021 Transcribed Document [facility] [place] [address] [place] [address] ProviderAide MD [address] [place] [address] Social History Tobacco Use Types [...] your living situation today? I have a [facility] place to live 10/13/2023 Think [...] Do you speak a language other than Turkmen at [facility]? No 10/13/2023 Do you [...] - Historical Provider, - 05/19/2021 12:56 PM AIR POLLUTION INSPECTOR Patient Education Materials Follows: It???s Cold and [...] to thoroughly wash your hands, use hand software recruiter. While handwashing is best, hand software recruiter helps to reduce the spread of germs when you are out and about. Have hand software recruiter in several locations so you can always [...] keep people from also getting sick. Don???t [place] It! Sneezing this time of year is [...] Fats and oils Meat fat, or shortening. [place] butter, hydrogenated oils, palm oil, coconut oil, [...] provider. Document Revised: 05/01/2018 Document Reviewed: 04/04/2018 [employer] Patient Education ? 2020 [employer] documented in this encounter Plan of Treatment Not on file documented as of this encounter Visit Diagnoses Not on filedocumented in this encounter Care Teams Engineering Manager Relationship Specialty Start Date End Date Sandra Orozco, DONKEY RIDE OPERATOR [address] [place] [phone] PCP - General Nurse Practitioner 01/24/22 documented as of this encounter
--- OUTSIDE RECORDS SUMMARY | 2024-10-06 15:31 | XMS_ITS | Encounter Summary ---
Author Organization [facility] ([place], [place], [place], [place]) Address [address] [place] [address] Care Team Providers Care Violin Tutor Name Role Phone Sandra Orozco APRN Primary Care Provider [phone] Encounter Details Date Type Department Care Team (Late st Contact Info) Description 05/19/2021 Transcribed Document [facility] Family Medicine [address] [place] [address] ProviderAide MD [address] [place] [address] Social History Tobacco Use Types [...] your living situation today? I have a [facility] place to live 10/13/2023 Think about [...] Do you speak a language other than [place] at [facility]? No 10/13/2023 Do you want [...] - Historical Provider, - 05/19/2021 2:36 PM KETTLE WORKER Nursing Discharge Summary Entered On: 05/19/2021 14:37 [...] 14:36 EST Electronically signed by Kamron [facility] Conversion Wire [employer]ner at 06/27/2022 8:11 AM CDT documented in this encounter Plan of Treatment Not on file documented as of this encounter Visit Diagnoses Not on filedocumented in this encounter Care Teams Violin Tutor Relationship Specialty Start Date End Date Sandra Orozco APRN [address] [phone] PCP - General Nurse Practitioner 01/24/22 documented as of this encounter
--- OUTSIDE RECORDS SUMMARY | 2024-10-06 15:31 | XMS_ITS | Encounter Summary ---
Author Organization [facility] yste Address [address] [place] [address] Care Team Providers Care Clinical Secretary Name Role Phone Sandra Orozco APRN Primary Care Provider Encounter Details Date Type Department Care Team (Latest Contact Info) Description 08/13/2024 Travel Social History Tobacco Use Types Packs/Day Years [...] PM EDT documented as of this encounter Plan of Treatment Upcoming Encounters Date Type Department Care Team (Late st Contact Info) Description 11/17/2024 12:30 PM EDT Office Visit [facility] [address] [place] [address] Dina Solano APRN [address] [facility] [address] [place] [address] documented as of this encounter Visit Diagnoses Not on filedocumented in this encounter Care Teams Clinical Secretary Relationship Specialty Start Date End Date Sandra Orozco, RUBEN [address] [address] [place] [id number] PCP - General Internal Medicine 05/11/24 documented as of this encounter
--- OUTSIDE RECORDS SUMMARY | 2024-10-06 15:31 | XMS_ITS | Data Portability ---
Author Organization SANDER NASEEM Rivera CROWDER CLOSED Address [address] [facility] [address] [place] [address] Care Team Providers Care Sales Lead Generator Name Role Phone GLADIS DELCID Primary Care [...] studying her MRI from October 2023 at [facility], there is no clear cause for the [...] questions, concerns, or new or worsening symptoms. [email or web address] Not available 04/14/2024 13:41:43 04/16/2024 04/16/2024 Plan: I have personally reviewed this patient's MOHSEN report as per [place] medical board guidelines and it was found [...] reviewed this patient's MOHSEN report as per [place] medical board guidelines and it was found [...] reviewed this patient's MOHSEN report as per [facility] board guidelines and it was found [...] mg-acetam inophen 325 mg tablet 2024 025 [facility], [address] [place] [address], [id number], 08/25/2024 11:08:17 hydrocodo ne 5 mg-acetam inophen 325 mg tablet 2024 025 [facility], [facility] [address], [id number], 08/25/2024 11:08:18 hydrocodo ne 5 mg-acetam inophen 325 mg tablet 2024 025 [facility] 591, [address], [address], 06/25/2024 11:29:57 hydrocodo ne 5 mg-acetam inophen 325 mg tablet 2024 025 [facility] 591, [address], [address], 06/25/2024 11:29:56 hydrocodo ne 5 mg-acetam inophen 325 mg tablet 2024 025 [facility] 591, [address], [address], 04/16/2024 11:30:43 hydrocodo ne 5 mg-acetam inophen 325 mg tablet 2024 025 [facility] 591, [address], [address], 04/16/2024 11:30:42 Patient TargetsNo targets recorded. Patient InstructionsNo instructions recorded. Reason for Referral None Reported. Results Created Date Observation Date Name Description Value Unit Range Abnormal Flag Note LastModifiedBy Organization Detail LastModifiedTime 08/26/1908/27/2024 HIGH RISK DRUG PANEL gabapentin NEGATI VE NG/mL <1000 normal Not Available [facility] [address] [place] [address], [address], 08/30/2024 17:49:46 08/26/19 25 08/27/2024 HIGH RISK DRUG PANEL pregabalin, qt ur NEGATI VE NG/mL <1000 normal Not Available [facility] [address] [place], [address], 08/30/2024 17:49:46 08/26/19 25 08/27/2024 HIGH RISK DRUG PANEL desmethyltra madol NEGATI VE NG/mL <100 normal Not Available [facility] [address] [place], [address], 08/30/2024 17:49:46 08/26/19 25 08/27/2024 HIGH RISK DRUG PANEL tramadol NEGATI VE NG/mL <100 normal Not Available [facility] [address] [place], [address], 08/30/2024 17:49:46 08/26/19 25 08/27/2024 HIGH RISK DRUG PANEL tapentadol NEGATI VE NG/mL <50 normal Not Available [facility] [address] [place], [address], 08/30/2024 17:49:46 08/26/19 25 08/27/2024 HIGH RISK DRUG PANEL nortapentado l NEGATI VE NG/mL <50 normal Not Available [facility] [address] [place] [address], [address], 08/30/2024 17:49:46 08/26/19 25 08/27/2024 HIGH RISK DRUG PANEL ethyl glucuronide NEGATI VE NG/mL <500 normal Not Available [facility] [address] [place] [address], [address], 08/30/2024 17:49:46 08/26/19 25 08/27/2024 HIGH RISK DRUG PANEL ethyl sulfate NEGATI VE NG/mL <100 normal Not Available [facility] [address] [place] [address], [address], 08/30/2024 17:49:46 08/26/19 25 08/27/2024 HIGH RISK DRUG PANEL buprenorphin e NEGATI VE NG/mL <2 normal Not Available [facility] [address] [place] [address], [address], 08/30/2024 17:49:46 08/26/19 25 08/27/2024 HIGH RISK DRUG PANEL norbuprenorp shadi NEGATI VE NG/mL <2 normal Not Available [facility] [address] [place] [address], [address], 08/30/2024 17:49:46 08/26/19 25 08/27/2024 HIGH RISK DRUG PANEL naloxone NEGATI VE NG/mL <2 normal Not Available [facility] [address] [place] [address], [address], 08/30/2024 17:49:46 08/26/19 25 08/30/2024 HIGH RISK DRUG PANEL amphetamines NEGATI VE NG/mL <500 normal Not Available [facility] [address] [place] [address], [address], 08/30/2024 17:49:46 08/26/19 25 08/30/2024 HIGH RISK DRUG PANEL barbiturates NEGATI VE NG/mL <300 normal Not Available [facility] [address] [place] [address], [address], 08/30/2024 17:49:46 08/26/19 25 08/30/2024 HIGH RISK DRUG PANEL benzodiazepi rufus NEGATI VE NG/mL <100 normal Not Available [facility] [address] [place] [address], [address], 08/30/2024 17:49:46 08/26/19 25 08/30/2024 HIGH RISK DRUG PANEL marijuana metabolite NEGATI VE NG/mL <20 normal Not Available [facility] [address] [place] [address], [address], 08/30/2024 17:49:46 08/26/19 25 08/30/2024 HIGH RISK DRUG PANEL cocaine metabolite NEGATI VE NG/mL <150 normal Not Available [facility] [address] [place] [address], [address], 08/30/2024 17:49:46 08/26/1908/30/2024 HIGH RISK DRUG PANEL methadone metabolite NEGATI VE NG/mL <100 normal Not Available [facility] [address] [place] [address], [address], 08/30/2024 17:49:46 08/26/19 25 08/30/2024 HIGH RISK DRUG PANEL opiates POSITI VE NG/mL <100 abnormal Not Available [facility] [address] [place] [address], [address], 08/30/2024 17:49:46 08/26/19 25 08/30/2024 HIGH RISK DRUG PANEL codeine NEGATI VE NG/mL <50 normal Not Available [facility] [address] [place] [address], [address], 08/30/2024 17:49:46 08/26/19 25 08/30/2024 HIGH RISK DRUG PANEL hydrocodone 3424 NG/mL <50 high Not Available [facility] [address] [place] [address], [address], 08/30/2024 17:49:46 08/26/19 25 08/30/2024 HIGH RISK DRUG PANEL hydromorphon e 186 NG/mL <50 high Not Available [facility] [address] [place] [address], [address], 08/30/2024 17:49:46 08/26/19 25 08/30/2024 HIGH RISK DRUG PANEL morphine NEGATI VE NG/mL <50 normal Not Available [facility] [address] [place] [address], [address], 08/30/2024 17:49:46 08/26/19 25 08/30/2024 HIGH RISK DRUG PANEL norhydrocodo ne 1612 NG/mL <50 high Not Available [facility] [address] [place] [address], [address], 08/30/2024 17:49:46 08/26/19 25 08/30/2024 HIGH RISK DRUG PANEL oxycodone NEGATI VE NG/mL <100 normal Not Available [facility] [address] [place] [address], [address], 08/30/2024 17:49:46 08/26/19 25 08/30/2024 HIGH RISK DRUG PANEL phencyclidin e NEGATI VE NG/mL <25 normal Not Available [facility] [address] [place] [address], [address], 08/30/2024 17:49:46 08/26/19 25 08/30/2024 HIGH RISK DRUG PANEL creatinine 226.2 mg/dL > or = 20.0 normal Not Available [facility] [address] [place] [address], [address], 08/30/2024 17:49:46 08/26/19 25 08/30/2024 HIGH RISK DRUG PANEL specific gravity 1.012 > or = 1.003 normal Not Available [facility] [address] [place], [address], 08/30/2024 17:49:46 08/26/1908/30/2024 HIGH RISK DRUG PANEL pH 5.7 4.5-9. 0 normal Not Available [facility] [address] [place], [address], 08/30/2024 17:49:46 08/26/1908/30/2024 HIGH RISK DRUG PANEL oxidant NEGATI VE mcg/m L <200 normal Not Available [facility] [address] [place], [address], 08/30/2024 17:49:46 08/26/1908/30/2024 HIGH RISK DRUG PANEL [...] condi tions . Opiat es Notes : Porcupine codon e, Norhy droco done, Porcupine morph one detec abbie is consi stent with the use of the drug Porcupine codon e. Porcupine morph one detec abbie is consi stent with the use of the drug Porcupine morph one. Porcupine morph one can be a presc ribed drug and is also a metab olite of Porcupine codon e. Confi rmati on testi ng Perfo rmed at: [facility] [place] [address] [place] [address] Labor atory Direc tor: ZEUS PEGUERO S CLIA: [id number] LDT Notes : Confi rmati on tests [...] M-F, 8am to 10pm EST Not Available [facility] [address] [place] [address], [address], 08/30/2024 17:49:46 08/26/1908/30/2024 HIGH RISK DRUG PANEL fentanyl NEGATI VE NG/mL <0.5 normal Not Available [facility] [address] [place] [address], [address], 08/30/2024 17:49:46 08/26/1908/30/2024 HIGH RISK DRUG PANEL heroin metabolite, qt ur NEGATI VE NG/mL <10 normal Not Available [facility] [address] [place] [address], [address], 08/30/2024 17:49:46 04/14/19 25 04/14/2024 XR, lumbo sacra l spine , 2 or 3 view, bendi ng only [facility] [address] [place] [address], [place] [address] Patishashi morse Name: MARTHA morse : 89 [...] Edin Luke MD on 04/14/19 12:15 PM [email or web address] [facility] [address], [address], 06/23/2024 15:57:27 Result Notes Documentation Provider Name and Address Organization Details Recorded Time Xr, Lumbosacral Spine, 2 Or 3 View, Bending Only : [address] [address] Patient Name: JACKELYN CRUZ Patient : 1960 [...] Interpreted By: Edin Luke MD ROQUE MD [address] [place] [address], [address], [facility] 06/23/2024 15:57:27 Problems Name Problem SNOMED Code Status Onset Date Resolution Date Notes Provider Name and Address Organization Details Recorded Time Low back pain 841502343 Active Status: Active Not Available [facility] 7 06:47:46 Disorder of bone and articular cartilage 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 Procedures Surgical History Date Name Laterality Status Provider Name and Address Organization Details Recorded Time 04/10/19 Date of Last Mammogram completed Amira Hogan [facility] 05/04/2024 14:53:23 tonsillectomy completed [facility] 06/29/2021 11:07:23 partial hysterectomy completed [facility] 06/29/2021 11:07:41 [facility] 06/29/2021 11:07:49 Unlisted px accessory sinus completed [facility] 06/29/2021 11:08:12 Unlisted px phrnx adnd/tnsl completed [facility] 06/29/2021 11:08:24 procedure on vein completed [facility] 06/29/2021 11:08:40 Appendectomy completed [facility] 05/04/2024 14:53:09 Imaging Results None recorded. Procedure [...] Date: 2011 10:08 :22 AM; Not Available [facility] 6 12:52:49 405329 Celebrex medicatio n Not available Not available Not available 02/03/20162011 32105 7 RxNorm Comme nt: Creat ed By: Storm Cantu reneha d Date: 2011 10:08 :34 AM; Not Available [facility] 6 05:46:24 066348 Levaquin medicatio n Not available Not available Not available 02/03/20162011 79195 2 RxNorm Comme nt: Creat ed By: Storm Cantu reneha d Date: 2011 10:07 :37 AM; Not Available [facility] 6 08:06:37 203833 Macrobid medicatio n Not available Not available Not available 02/03/20162011 99323 1 RxNorm Comme nt: Creat ed By: Storm Bonner;Ruthie patrick Date: 2011 10:08 :04 AM; Not Available [facility] 6 08:06:37 884487 Product containin g penicilli n (product) medicatio n Not available Not available Not available 06/29/2021 16611 8001 SNOMED Kailey Valerie null, [facility] 2 11:02:22 074326 gabapenti n medicatio n Not available Not available Not available 06/29/2021 63735 RxNorm Kailey Valerie null, [facility] 2 11:02:39 071993 leflunomi de medicatio n Not available Not available Not available 06/29/2021 93154 RxNorm Kailey Valerie null, [facility] 2 11:02:54 388216 Naprosyn medicatio n Not available Not available Not available 06/29/2021 2 RxNorm Kailye Valerie null, [facility] 2 11:03:06 [id number] dextromet horphan hydrobrom mónica medicatio n Not available Not available Not available 05/04/2024 18095 0 RxNorm Amira Hogan null, [facility] 5 15:09:56 049423 Omnicef medicatio n Not available Not available Not available 05/04/2024 45342 RxNorm Amiradary Hogan null, [facility] 5 15:10:19 171882 nortripty line medicatio n Not available Not available Not available 05/04/2024 7531 RxNorm Amira Hogan null, [facility] 5 15:10:37 008995 Lyrica medicatio n Not available Not available Not available 05/04/2024 68112 1 RxNorm Amira Hogan [facility] 15:10:45 Medications Name Sig Start Date [...] Updated DateTime 04/14/2024 152.4 cm 34.2 kg/m2 33431.66 g 124/84 mm[Hg] [facility] 04/14/2024 13:20:34 Date Recorded Body height Body mass index (BMI) Body weight Pain severity - 0-10 verbal numeric rating [Score] - Reported Oxygen saturation Oxygen saturation in Arterial blood by Pulse oximetry Inhaled oxygen flow rate Heart rate Systolic And Diastolic Provider Name and Address Organization Details Last Updated DateTime 5 152.4 cm 35.3 kg/m2 11657.2 2 g 8 96 % 96 % 2 L/min 70 /min 120/68 mm[Hg] [facility] 5 11:13:33 Date Recorded Body height Body mass index (BMI) Body weight Heart rate Oxygen saturation Oxygen saturation in Arterial blood by Pulse oximetry Systolic And Diastolic Provider Name and Address Organization Details Last Updated DateTime 5 152.4 cm 35.3 kg/m2 13636.4 3 g 69 /min 86 % 86 % 110/50 mm[Hg] Amira Hogan [facility] 5 15:03:21 Date Recorded Body height Body mass index (BMI) Body weight Pain severity - 0-10 verbal numeric rating [Score] - Reported Oxygen saturation Oxygen saturation in Arterial blood by Pulse oximetry Inhaled oxygen flow rate Provider Name and Address Organization Details Last Updated DateTime 5 152.4 cm 35.7 kg/m2 03916.4 g 8 94 % 94 % 2 L/min [facility] 5 11:11:53 Date Recorded Body height Body mass index (BMI) Body weight Pain severity - 0-10 verbal numeric rating [Score] - Reported Oxygen saturation Oxygen saturation in Arterial blood by Pulse oximetry Inhaled oxygen flow rate Heart rate Systolic And Diastolic Provider Name and Address Organization Details Last Updated DateTime 5 152.4 cm 34.8 kg/m2 81204.4 4 g 9 94 % 94 % 1 L/min 79 /min 122/64 mm[Hg] Blanca Gannon [facility] 10:45:12 Social History Question Answer Notes LastModified by Organizat ion Details LastModified Time Tobacco Smoking Status Former Smoker Blanca Gannon [facility] 11/19/2023 14:27:06 What Was The Date [...] 06/29/2021 Are you currently employed? No disabled [place] [id number] Information not available 05/04/2024 Mental Status None recorded. Family History Relationship Description Onset Age of this Age Resolved Age Notes LastModified by Organization Details LastModified Time Unspecified Relation Malignant neoplastic disease [email or web address] Not available 04/12 14:49:35 Unspecified Relation Diabetes mellitus [email or web address] Not available 04/12 14:49:35 Mother Familial cancer of breast Not available 04/12 14:49:35 Mother Malignant tumor of pancreas [email or web address] Not available 2024 14:51:13 Mother Chronic obstructive pulmonary disease Not available 2024 14:51:40 Father Hypercholest erolemia [email or web address] Not available 2024 14:51:58 Medical History Condition Response Other N Thyroid Disease N Kidney Stones N Blood Transfusion N Breast Cancer N Emphysema Y Colon/Rectal Disorders N Sexually Transmitted Disease N COPD Y Depression Y Glaucoma N Pneumonia Y Skin Problems Y Breast Problem Y Osteoporosis/Osteopenia Y Heart Attack ([place]) N Ulcers N Mental Illness Y Diabetes N Ovarian Cancer N Attempted Suicide N Varicose Veins Y Anxiety Disorder Y Bleeding Disorder N Hearing Loss Y Arthritis Y AIDS/HIV N Congestive Heart Failure (CHF) Y Eczema N Cancer N Diverticulitis N Stroke Y Asthma Y Crohn's Disease N Radiation Therapy N Epilepsy/Seizures N Blood Thinners N Sleep Apnea Y Thyroid Disorder N Liver Disease N Heart Disease N Headaches N Fibromyalgia Y Osteoporosis N Endocrine Disorder N Kidney Disease N Gynecological History Statement/Question Response [...] SNOMED-CT Code Diagnosis ICD10 Code Diagnosis Note [id number] LUX FERNÁNDEZ MD [facility] [address] [place] [address] 01/18/2020 12:49:41 01/18/2020 15:14:53 Lumbar radiculopathy 156663655 M54.16 Time spent reviewing images, discussing the diagnosis and coordinati ng care: 30min [id number] DILIP BILL PA-C [facility] [address] [place] [address] 06/29/2021 10:15:51 07/04/2021 09:16:52 Lumbar radiculopathy 881894574 M54.16 [id number] GLENDA TUTTLE PA-C [facility] [address] [place] [address] 11/20/2021 10:07:54 11/27/2021 14:55:22 Lumbar spondylosis 573522231 M47.896 [id number] LUX FERNÁNDEZ MD SURGERY SCHEDULE [address] [place] [address] 02/09/2022 09:11:14 02/09/2022 10:30:20 [id number] LUX FERNÁNDEZ MD [facility] [address] [place] [address] 02/14/2022 13:50:04 02/26/2022 16:15:54 [id number] LUX FERNÁNDEZ MD [facility] [address] [place] [address] 03/15/2022 09:39:55 03/16/2022 16:35:55 Postoperative care 037400428 Z48.89 [id number] JUANITA VALDERRAMA APRN [facility] [address] [place] [address] 10/03/2023 12:25:46 10/04/2023 04:49:26 Lumbar radiculopathy 515079493 M54.16 Compressio n fracture of lumbar spine 734247530 M48.56XA Impairment of balance 38 4468726 R26.89 Poor manual dexterity 30 7073172 R29.898 [id number] LIA ROQUE MD SURGERY SCHEDULE [address] [place] [address] 11/01/2023 13:01:26 11/05/2023 10:00:09 [id number] RAOUL KINSEY MD [facility] CLOSED [address] [place] [address] 11/19/2023 13:39:01 11/19/2023 15:00:53 Chronic low back pain 953288188 M54.50 Degenerati on of lumbar intervertebral disc 44450124 M51.36 Spinal hilda nosis of lumbar region 49091125 M48.062 [id number] RAOUL KINSEY MD [facility]OS[facility] [address] [place] [address] 11/26/2023 12:42:31 11/26/2023 12:56:48 Chronic low back pain 638437618 M54.50 Degenerati on of lumbar intervertebral disc 89147917 M51.36 Spinal hilda nosis of lumbar region 24163464 M48.062 [id number] BIANCA ESPAÑA PA-C [facility] [address] [place] [address] 11/26/2023 13:56:01 11/27/2023 04:57:02 Postoperative visit 636425126 Z48.89 [id number] RAOUL KINSEY MD [facility] CLOSED [address] [place] [address] 12/24/2023 12:33:05 12/24/2023 13:02:45 Chronic low back pain 113918517 M54.50 The prescripti on to be filled on 12/27/23 was cancelled. The prescripti on sent to [facility] was cancelled. Degenerati on of lumbar intervertebral disc 97989964 M51.362 Spinal hilda nosis of lumbar region 84702251 M48.062 [id number] BIANCA ESPAÑA PA-C [facility] [address] [place] [address] 01/10/2024 09:40:04 01/11/2024 04:31:11 Lumbar radiculopathy 547251503 M54.16 [id number] RAOUL KINSEY MD [facility] CLOSED [address] [place] [address] 02/20/2024 12:35:26 02/20/2024 12:58:34 Chronic low back pain 014503359 M54.50 Degenerati on of lumbar intervertebral disc 45726543 M51.362 Spinal hilda nosis of lumbar region 93459255 M48.062 [id number] BIANCA ESPAÑA PA-C [facility] [address] [place] [address] 04/14/2024 13:13:45 04/15/2024 08:29:03 Lumbar radiculopathy 283476935 M54.16 [id number] RAOUL KINSEY MD PAIN MEDICINE CLOSED [address] [place] [address] 04/16/2024 11:04:40 04/16/2024 11:22:08 Chronic low back pain 173432063 M54.50 Degenerati on of lumbar intervertebral disc 43875252 M51.362 Spinal hilda nosis of lumbar region 75919053 M48.062 [id number] NIHARIKA BOCANEGRA APRN BREAST SURGERY [address] [place] [address] 05/04/2024 14:30:28 05/10/2024 04:08:11 Inversion of right nipple 2864814351 [id number] N64.59 Patient and I reviewed her medical [...] an as-needed basis. Decreased capillary filling time 11564719 R94.39 [id number] RAOUL KINSEY MD PAIN MEDICINE CLOSED [address] [place] [address] 06/25/2024 11:02:23 06/25/2024 11:26:16 Chronic low back pain 820330518 M54.50 Degenerati on of lumbar intervertebral disc 65331508 M51.362 Spinal hilda nosis of lumbar region 08215001 M48.062 [id number] RAOUL KINSEY MD PAIN MEDICINE [address] [place] [address] 08/25/2024 10:26:44 08/25/2024 10:55:10 Chronic low back pain 106316342 M54.50 Degenerati on of lumbar intervertebral disc 79236588 M51.362 Spinal hilda nosis of lumbar region 38117653 M48.062 Health Concerns Section Related Observation LastModified by Organization Detai ls LastModified Time None Recorded Concern Status LastModified by Organization Details LastModified Time None Recorded Advance Directives Directive None Recorded Payers Insurance Date Sequence Insurance Name Policy Number Policy Sanchez Covered Member ID Sanchez Member ID Guarantor Name 08/22/2024 1 [place] Jackelyn Cruz [id number] Jackelyn Cruz 10/15/2023 2 COMBINED INSURANCE - CITIZEN OF [place] [employer] (MEDICARE SUPPLEMENT) Jackelyn Cruz [id number] Jackelyn Cruz OBGyn Episode No OBEpisode recorded.
--- OUTSIDE RECORDS SUMMARY | 2024-10-06 15:31 | XMS_ITS | Clinical Summary ---
Author Organization [employer] ([place], [place], [place], [place]) Address [address] [place] [address] Care Team Providers Care Planer Operator / Grader Name Role Phone OrozcorKystenrafael MIRANDA Primary Care Provider Allergies Active Allergy [...] speak a language other than Faroese at [facility]? No 10/13/2023 Do you want help [...] 06/22/2009, 08/29/2001 Medical Devices Implanted Type Area Research Analyst Device Identifier Shelf Expiration Date Model / Serial / Lot Sealant Durasl Spine 5ml [id number] - [id number] Implanted:Qty: 1 on 01/31/2022 by Emeka Fernández MD at [facility] IMPLANTS N/A: Back [employer] 07/09/2023144809 / / [id number] Cement Spinal Confidence 2839-10-000 - [id number] Implanted:Qty: 2 on 10/14/2023 at [facility] IMPLANTS N/A: Back J &J:DEPUY:DEPUY SPINE 06/08/2025 [id number] Insurance MEDICARE PART A B GENERIC COMMERCIAL Advance Directives For more information, please contact: [phone] Documents on File Type Date Recorded 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 Expl 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
--- OUTSIDE RECORDS SUMMARY | 2024-10-06 15:31 | XMS_ITS | Encounter Summary ---
Author Organization [facility] ([place], [place], [place], [place]) Address [address] [place] [address] Care Team Providers Care Pediatric Immunologist Name Role Phone Sandra Orozco RUBEN Primary Care Provider Encounter Details Date Type Department Care Team (Late st Contact Info) Description 01/25/2020 Transcribed Document [facility] [place] Family Medicine [address] [place] [address] ProviderAide MD [address] [place] [address] Social History Tobacco Use Types Packs/Day Years Used Date Smoking Tobacco: Never Assessed Comments Unknown Sex and Gender Information Value Date Recorded Sex Assigned at Not on file Legal Sex Female 2:35 PM CDT Gender Identity Not on file Sexual Orientation Not on file documented as of this encounter Miscellaneous Notes * Cerner Conversion Note - Historical ProviderMD - 01/25/2020 6:55 AM METHODS ANALYST DATA PROCESSING DATE OF ADMISSION: 01/22/2020 HISTORY OF PRESENT [...] applying ice and heat, physical therapy, exercise, [id number] medication, bed rest going to [facility], [...] to contact her primary physician and her credit clerk to see if we can hold the [...] visit and the patient has been afebrile. /[id number] Karim Chaparro, MD, JELANI Pain Certified KR/AQ / KR / MODL CC: MD Sandra Valero APRN Electronically signed by Interface, [facility] Conversion Molder Punch Cerner at 06/27/2022 8:04 AM CDT documented in this encounter Plan of Treatment Not on file documented as of this encounter Visit Diagnoses Not on filedocumented in this encounter Care Teams Pediatric Immunologist Relationship Specialty Start Date End Date Sandra Orozco, RUBEN [address] [address] PCP - General Nurse Practitioner 01/24/22 documented as of this encounter
--- OUTSIDE RECORDS SUMMARY | 2024-10-06 15:31 | XMS_ITS | Encounter Summary ---
Author Organization [facility] yste Address [address] [place] [address] Care Team Providers Care Braille And Talking Books Clerk Name Role Phone Sandra Orozco APRN Primary Care Provider [phone] Reason for Visit * Reason Onset Date Comments Med Refill 08/28/2024 Encounter Details Date Type Department Care Team (Late st Contact Info) Description 08/28/2024 Refill [facility] [address] [facility] [address] [place] [phone] Christy Bertrand MD [address] [place] [address] Med Refill Social History Tobacco Use Types [...] Telephone Encounter - Radha Goodman MA - 08/28/2024 8:51 AM EDT PER FAX REQUEST Rx Refill Note Requested Prescriptions Signed Prescriptions Disp Refills Xarelto 15 MG tablet 90 tablet 3 Sig: Take 1 tablet by mouth Daily With Dinner. Authorizing Provider: CHRISTY BERTRAND Ordering User: RADHA GOODMAN Last office visit with prescribing clinician: 05/11/2024 Last telemedicine visit with prescribing clinician: Visit date not found Next office visit with prescribing clinician: Visit date not found Pharmacy Info Last Fill Date: Rx Written Date: Prescribed Qty: Additional Details from Pharmacy: Patient passed protocols per ed. Radha Goodman MA 08/28/24, 08:52 EDT documented in this encounter Plan of Treatment Upcoming Encounters Date Type Department Care Team (Late st Contact Info) Description 11/17/2024 12:30 PM EDT Office Visit [facility] [address] [facility] [address] [place] [id number] Dina Solano APRN [address] [place] [address] documented as of this encounter Visit Diagnoses Not on filedocumented in this encounter Care Teams Braille And Talking Books Clerk Relationship Specialty Start Date End Date Sandra Orozco APRN [address] [place] [address] PCP - General Internal Medicine 05/11/24 documented as of this encounter
--- OUTSIDE RECORDS SUMMARY | 2024-10-06 15:31 | XMS_ITS | Encounter Summary ---
Author Organization [employer] ([place], [place], [place], [place]) Address [address] [place] [address] Care Team Providers Care Weatherization Field Technician Name Role Phone Sandra Orozco APRN Primary Care Provider [phone] Encounter Details Date Type Department Care Team (Late st Contact Info) Description 05/19/2021 Transcribed Document [facility] [place] Family Medicine [address] [place] [address] ProviderAide MD [address] [place] [address] Social History Tobacco Use Types [...] your living situation today? [facility] 10/13/2023 Think about [...] speak a language other than Japanese at the rehabilitation institute? No 10/13/2023 Do you want help with [...] - Historical Provider, - 05/19/2021 12:57 PM TYPEWRITER REPAIRER Stroke/Warfarin Instructions Entered On: 05/19/2021 12:57 EST Performed On: 05/19/2021 12:57 EST by AZUCENA PALACIO Stroke/Warfarin Instructions Stroke/TIA Discharge Ins : N/A Warfarin Discharge Ins : N/A AZUCENA PALACIO - 05/19/2021 12:57 EST Electronically signed by [facility] Conversion Bellmaker Cerner at 06/27/2022 8:14 AM CDT documented in this encounter Plan of Treatment Not on file documented as of this encounter Visit Diagnoses Not on filedocumented in this encounter Care Teams Weatherization Field Technician Relationship Specialty Start Date End Date Sandra Orozco APRN [address] [id number] PCP - General Nurse Practitioner 01/24/22 documented as of this encounter
--- OUTSIDE RECORDS SUMMARY | 2024-10-06 15:31 | XMS_ITS | Clinical Summary ---
Author Organization [facility] Address [address] [place] [address] Care Team Providers Care Retail Support Associate Name Role Phone Sandra Orozco APRN Primary Care Provider [phone] Allergies Active Allergy Reactions Criticality Noted Date Comments Celecoxib GI Bleeding Medium 04/15/2024 Ciprofloxacin Hcl Itching Low 04/15/2024 Dexamethasone Other (See Comments) Low 04/15/2024 Off balance Gabapentin Swelling Low 04/15/2024 Swelling in legs Hydrocodone Hives,Itching,Swell ing,Other (See Comments) Medium 04/15/2024 Abdominal pain, difficulty swallowing Levofloxacin Other (See Comments) Low 04/15/2024 Shakes Nitrofurantoin Other (See Comments) Low 04/15/2024 Swelling all over Nortriptyline Swelling Low 04/15/2024 Poison Mack Extract Hives,Itching,Swell ing,Rash Low 04/15/2024 Poison oak/poison sabrina Evolocumab Other (See Comments) Low 07/16/2024 Everything it had listed Wound Dressing Adhesive Itching,Swelling Low 2024 Medications Ventolin HFA 108 (90 Base) MCG/ACT inhaler Inhale 2 puffs every 4 hours by inhalation route as directed. Active bisoprolol (ZEBeta) 5 MG tablet Take 1 tablet by mouth Daily. Active budesonide (PULMICORT) 0.5 MG/2ML nebulizer solution Take 2 mL by nebulization Daily. Active bumetanide (BUMEX) 1 MG tablet Take 1 tablet by mouth Daily. Active dexlansoprazole (Dexilant) 60 MG capsule Take 1 capsule by mouth Daily. Active dicyclomine (BENTYL) 10 MG capsule Take 1 capsule by mouth 4 (Four) Times a Day Before Meals & at Bedtime. Active fluconazole (DIFLUCAN) 200 MG tablet As Needed. Active HYDROcodone-acetam inophen (NORCO) 10-325 MG per tablet Take 1 tablet by mouth Every 4 (Four) Hours As Needed. Active hydrocortisone 2.5 % cream Active levocetirizine (XYZAL) 5 MG tablet Take 1 tablet by mouth Daily. Active montelukast (SINGULAIR) 10 MG tablet Take 1 tablet by mouth Daily. Active potassium chloride 10 MEQ CR tablet Act sp pramipexole (MIRAPEX) 1.5 MG tablet 3 (Three) Times a Day. Active spironolactone (ALDACTONE) 25 MG tablet Take 1 tablet by mouth Daily. Active tiZANidine (ZANAFLEX) 4 MG tablet Take 1 tablet by mouth Every 6 (Six) Hours As Needed. Active venlafaxine XR (EFFEXOR-XR) 150 MG 24 hr capsule Act sp clotrimazole (MYCELEX) 10 MG brad Take 1 tablet by mouth 3 (Three) Times a Day. 08/13/19 25 Active rosuvastatin (CRESTOR) 5 MG tabletIndications: Hyperlipidemia, unspecified hyperlipidemia type Take 1 tablet by mouth Daily. 90 tablet 1 08/14/19 25 Active Xarelto 15 MG tablet Take 1 tablet by mouth Daily With Dinner. 90 tablet 3 08/29/19 25 Active Active Problems Problem Noted Date Diagnosed Date Chronic respiratory failure with hypoxia, on home O2 therapy 08/12/2024 Assessment & Plan (08/13/2024 1:06 PM EDT): Continue follow-up with pulmonary Discussed with patient she becomes short of breath or wheezing is where she should follow-up with him or present to the emergency department Paroxysmal atrial fibrillation 07/16/2024 Assessment & Plan (08/13/2024 1:06 PM EDT): Continue bisoprolol 5 mg p.o. daily Continue Xarelto 15 mg p.o. daily Orders: CBC (No Diff); Future Comprehensive Metabolic Panel; Future Assessment & Plan (07/16/2024 12:10 PM EDT): [id number] 5 Continue Xarelto 15 mg p.o. daily, need to check and make sure patient does not need the 20 mg dosing. Continue bisoprolol 5 mg p.o. daily Orders: Basic Metabolic Panel; Future Peripheral arterial disease 07/16/2024 Assessment & Plan (07/16/2024 12:10 PM EDT): Continue Xarelto 15 mg p.o. daily History of CVA (cerebrovascular accident) 2024 Assessment & Plan (07/16/2024 12:10 PM EDT): No further recurrence Elevated lipoprotein(a) 05/11/2024 Assessment & Plan (07/16/2024 12:10 PM EDT): Patient attempted Repatha, reports she had significant side effects and her primary care physician has stopped Repatha. Consider statin at next visit, did not see statin listed on patient's medical record. Assessment & Plan (05/11/2024 2:05 PM EST): Add Repatha Orders: Evolocumab (REPATHA) solution prefilled syringe injection; Inject 1 mL under the skin into the appropriate area as directed Every 14 (Fourteen) Days for 6 doses. Moderate aortic valve regurgitation 05/09/2024 Assessment & Plan (08/13/2024 1:06 PM EDT): 2D echo 1 year from now Assessment & Plan (07/16/2024 12:10 PM EDT): 2D echo was ordered at last visit, patient reports she will be unable to come back for her 2D echo due to her functional status at this time. Patient reports she will have her primary care physician order her 2D echo and bring the results to Dr. Kirk. Assessment & Plan (05/11/2024 2:05 PM EST): Worsening dyspnea Pro bnp Orders: Adult Transthoracic Echo Complete W/ Cont if Necessary Per Protocol; Future Dyspnea on exertion 05/09/2024 Assessment & Plan (05/11/2024 2:05 PM EST): Orders: Adult Transthoracic Echo Complete W/ Cont if Necessary Per Protocol; Future Hyperlipidemia LDL goal <55 05/09/2024 Assessment & Plan (07/16/2024 12:10 PM EDT): Routine FLP Consider statin next visit if recommended Assessment & Plan (05/11/2024 2:05 PM EST): Orders: Hepatic Function Panel; Future High Sensitivity CRP; Future Lipoprotein A (LPA); Future Lipid Panel; Future Chronic venous insufficiency of lower extremity 05/09/2024 Assessment & Plan (05/11/2024 2:05 PM EST): 30 mm/hg knee high compression stockings. Leg elevation x 30 minutes 3 times daily. Increase your walking schedule and distance covered. Weight loss diet. Encounters Date Type Department Care Team Description 08/28/2024 Refill [facility] [address] [place] [address] [address] [place] [id number] Christy Kirk MD Med Refill 08/27/2024 Refill [facility] [address] [place] [address] [place] [place] [address] Christy Kirk MD Med Refill 08/13/2024 12:30 PM EDT Office Visit [facility] [address] [place] [address] [address] [place] [address] Dina Solano APRN Paroxysmal atrial fibrillation (Primary Dx); Chronic respiratory failure with hypoxia, on home O2 therapy; Moderate aortic valve regurgitation; Hyperlipidemia, unspecified hyperlipidemia type 08/13/2024 Travel 07/16/2024 12:30 PM EDT Lab [facility] [place] [address] [facility] [address] [place] [address] Shortness of breath; Paroxysmal atrial fibrillation 07/16/2024 11:42 AM EDT - 07/16/2024 11:59 PM EDT Hospital Encounter [facility] [address] [facility] [address] [place] [address] Shortness of breath Discharge Disposition: Home or Self Care 07/16/2024 11:30 AM EDT Office Visit [facility] [address] [facility] [address] [place] [address] Dina Solano APRN Paroxysmal atrial fibrillation (Primary Dx); Chronic respiratory failure with hypoxia; History of CHF (congestive heart failure); Shortness of breath; Peripheral arterial disease; History of CVA (cerebrovascular accident); Moderate aortic valve regurgitation; Hyperlipidemia LDL goal <55; Elevated lipoprotein(a) 07/16/2024 Patient rounding ([facility] only) [facility] [address] [facility] [address] [place] [address] Grant Still MD 07/16/2024 Travel from Last 3 Months Family History Medical History Relation Name Comments Hyperlipidemia Father Hypertension Father Coronary artery disease Mother Heart attack Mother Relation Name Status Comments Father Mother Social History Tobacco Use Types Packs/Day Years Used Date Smoking Tobacco: Former Cigarettes Smokeless Tobacco: Never Tobacco Cessation:Counseling Given: Not Answered Comments:Smoked since 1973 Alcohol Use Standard Drinks/Week Comments Not Currently 0 (1 standard drink = 0.6 oz pur e alcohol) former Comments Unknown Sex and Gender Information Value Date Recorded Sex Assigned at Female 07/09/2024 8:35 PM EDT Legal Sex Female 8:53 AM EST Gender Identity Not on file Sexual Orientation Straight 07/09/2024 8: 35 PM EDT Last Filed Vital Signs Vital Sign Reading [...] Mass Index 34.96 08/13/2024 11:55 AM EDT Plan of Treatment Upcoming Encounters Date Type Department Care Team (Late st Contact Info) Description 11/17/2024 12:30 PM EDT Office Visit [facility] [address] [facility] [address] [place] [phone] Dina Solano APRN [address] [facility] [address] [place] [address] Health Maintenance Due Date Last Done Comments DXA SCAN 1960 Pneumococcal Vaccine 50+ (1 of 2 - PCV) 1977 COLOGUARD 2003 COLON CANCER SCREENING 5 YEA R SIGMOIDOSCOPY 2003 COLONOSCOPY 2003 COL[address]AL CANCER SCREENING 2003 CT COLONOGRAPHY 2003 FECAL OCCULT BLOOD TEST 2003 FIT Testing (1 year) 2003 MAMMOGRAM 04/06/2017 04/06/2015 COVID-19 Vaccine ( season) 11/10/202302/2021, 06/16/2020 ANNUAL WELLNESS VISIT 04/15/2024 HEPATITIS C SCREENING 04/15/2024 INFLUENZA VACCINE 12/09/2024 12/27/2023, 02/22/2023 LIPID PANEL 07/06/2025 07/06/2024 TDAP/TD VACCINES (4 - Td or Tdap) 11/09/2027 11/08/2017, 06/22/2009, 08/29/2001 ZOSTER VACCINE Completed 04/28/2024, 12/27/2023 Procedures Procedure Name Priority Date/Time Associated Diagnosis Comments BASIC METABOLIC PANEL Routine 07/16/2024 12:05 PM EDT Paroxysmal atrial fibrillation Shortness of breath PROBNP Routine 07/16/2024 12:05 PM EDT Shortness of breath XR CHEST 2 VW Routine 07/16/2024 11:59 AM EDT Shortness of breath LIPID PANEL Routine 07/06/2024 Hyperlipidemia LDL goal <55 MAMMO SCREENING DIGITAL TOMOSYNTHESIS BILATERAL W CAD Routine 04/06/2015 9:03 AM EST from Last 3 Months or Most Recently Relevant to Health Maintenance Results * proBNP (07/16/2024 12:05 PM EDT) proBNP 221.0 0.0 - 900.0 pg/mL 07/16/2024 11:21 PM EDT [facility] Blood Venipuncture / Unknown 07/16/2024 12:05 PM EDT 07/16/2024 12:05 PM EDT Narrative [facility] - 07/16/2024 11:21 PM EDT This assay is used as an aid in the diagnosis of individuals suspected of having heart failure. It can be used as an aid in the diagnosis of acute decompensated heart failure (ADHF) in patients presenting with signs and symptoms of ADHF to the emergency department (ED). In addition, NT-proBNP of <300 pg/mL indicates ADHF is not likely. Age Range Result Interpretation NT-proBNP Concentration (pg/mL: <50 Positive >450 Castellano 300-450 Negative <300 50-75 Positive >900 Castellano 300-900 Negative <300 >75 Positive >1800 Castellano 300-1800 Negative <300 Dina Solano APRN LAB BLOOD ORDERABLES Final Re sult [facility]
[address] [place] [address], * (ABNORMAL) Basic Metabolic Panel (07/16/2024 12:05 PM EDT) Glucose 77 65 - 99 mg/dL 07/16/2024 11:19 PM EDT [facility] BUN 26(H) 8 - 23 mg/dL 07/16/2024 11:19 PM EDT [facility] Creatinine 0.84 0.57 - 1.00 mg/dL 07/16/2024 11:19 PM EDT [facility] Sodium 142 136 - 145 mmol/L 07/16/2024 11:19 PM EDT [facility] Potassium 4.2 3.5 - 5.2 mmol/L 07/16/2024 11:19 PM EDT [facility] Chloride 103 98 - 107 mmol/L 07/16/2024 11:19 PM EDT [facility] CO2 31.0(H) 22.0 - 29.0 mmol/L 07/16/2024 11:19 PM EDT [facility] Calcium 8.9 8.6 - 10.5 mg/dL 07/16/2024 11:19 PM T [facility] BUN/Creatinine Ratio 31.0(H) 7.0 - 25.0 07/16/2024 11:19 PM EDT [facility] Anion Gap 8.0 5.0 - 15.0 mmol/L 07/16/2024 11:19 PM [facility] eGFR 76.8 >60.0 mL/min/1.7 3 07/16/2024 11:19 PM T [facility] Blood Venipuncture / Unknown 07/16/2024 12:05 PM EDT 07/16/2024 12:05 PM EDT [facility] - 07/16/2024 11:19 PM EDT GFR Categories in Chronic Kidney Disease (CKD) GFR Category GFR (mL/min/1.73) Interpretation G1 90 or greater Normal or high (1) G2 60-89 Mild decrease (1) G3a 45-59 Mild to moderate decrease G3b 30-44 Moderate to severe decrease G4 15-29 Severe decrease G5 14 or less Kidney failure (1)In the absence of evidence of kidney disease, neither GFR category G1 or G2 fulfill the criteria for CKD. eGFR calculation 2020 CKD-EPI creatinine equation, which does not include race as a factor Dina Solano APRN LAB BLOOD ORDERABLES Final Re sult [facility]
[address] [place] [address], * XR Chest 2 View (07/16/2024 11:59 AM EDT) Anatomical Region Laterality Modality Body N/A Radiographic Tatyana ging 07/20/2024 10:3 6 AM EDT Impressions 07/20/2024 10:36 AM EDT Impression: No acute process. Electronically Signed: Judah Armstrong MD 07/20/2024 10:36 AM EDT Workstation ID: [id number] Narrative 07/20/2024 10:36 AM EDT XR CHEST 2 VW Date of Exam: 07/16/2024 11:50 AM EDT Indication: Shortness of breath, hx CHF Comparison: None available. Findings: The cardiomediastinal silhouette is within normal limits. Lungs are clear. No focal consolidation, pneumothorax, or significant pleural effusion. Osseous structures grossly intact. 2 level kyphoplasty noted in the upper lumbar spine. Procedure Note Judah Armstrong MD - 07/20/2024 XR CHEST 2 VW Date of Exam: 07/16/2024 11:50 AM EDT Indication: Shortness of breath, hx CHF Comparison: None available. Findings: The cardiomediastinal silhouette is within normal limits. Lungs are clear.No focal consolidation, pneumothorax, or significant pleural effusion.Osseous structures grossly intact. 2 level kyphoplasty noted in the upperlumbar spine. IMPRESSION: Impression: No acute process. Electronically Signed: Judah Armstrong MD 07/20/2024 10:36 AM EDT Workstation ID: [id number] us Dina Solano APRN IMG DIAGNOSTIC IMAGING ORDERA BLES Final Result * Lipid Panel (07/06/2024) Blood us Christy Kirk MD LAB BLOOD ORDERABLES Final Resul t [facility] * Mammo screening digital tomosynthesis bilateral (04/06/2015 9:03 AM EST) Anatomical Region Laterality Modality Breast N/A Mammography 04/06/2015 9:03 AM EST Narrative 04/06/2015 10:55 AM EST ADDENDUM- Patient's previous studies are now available dated 08/22/2010 and 01/12/2010. Patient has had previous biopsy. The overall appearance is stable. IMPRESSION- BIRADS 2- Benign findings. RECOMMENDATION- Recommend routine follow-up for continued breast evaluation. Today's study was evaluated in conjunction with computer-aided detection. PLEASE NOTE THE FOLLOWING ACR RECOMMENDATIONS- A- Only 80% of breast cancers can be diagnosed by mammography. B- A negative mammogram does not exclude cancer in clinically palpable abnormalities. Biopsy should be done based on ultrasound findings and clinical judgment. C- A mammogram has limited value in detecting cancer in patients with adenosis or dense breasts. [employer] For breast cancer detection in asymptomatic women- Age ACR Recommendations 35-40 Baseline Mammogram 40-49 Annual or Biannual Mammogram 50+ Annual Mammogram Annual physical and frequent self breast examination. Patient has been entered into an automatic reminder system. Addendum Reading Radiologist- DIYA LIGHT Addendum Releasing Radiologist- DIYA LIGHT Addendum Released Date Time- 04/19/15 1550 Addendum Candy Bar Attendant- Jaylen BILATERAL SCREENING MAMMOGRAM WITH TOMOSYNTHESIS PNL- CLINICAL INDICATION- Screening mammography. FAMILY HISTORY- Intermediate. Shabana Model lifetime risk 18.3%. TECHNIQUE- Standard craniocaudal and oblique views of both breasts were obtained digitally and are supplemented with tomographic images of both the right and left breast. COMPARISON- Not immediately available. FINDINGS- The breast tissue is heterogeneously dense. There are no spiculated masses or suspicious microcalcifications. No focal parenchymal distortion is present. Calcifications are noted bilaterally and probably benign. Also nodular densities bilaterally. I need the patient's outside films to compare. IMPRESSION- BIRADS 0- Incomplete. RECOMMENDATION- Need outside images for comparison. Today's study was evaluated in conjunction with computer-aided detection. PLEASE NOTE THE FOLLOWING ACR RECOMMENDATIONS- A- Only 80% of breast cancers can be diagnosed by mammography. B- A negative mammogram does not exclude cancer in clinically palpable abnormalities. Biopsy should be done based on ultrasound findings and clinical judgment. C- A mammogram has limited value in detecting cancer in patients with adenosis or dense breasts. [employer]UID[employer] For breast cancer detection in asymptomatic women- Age ACR Recommendations 35-40 Baseline Mammogram 40-49 Annual or Biannual Mammogram 50+ Annual Mammogram Annual physical and frequent self breast examination. Patient has been entered into an automatic reminder system. Reading Akash LIGHT Releasing Akash LIGHT Released Date Time- 04/06/15 1055 Candy Bar Attendant- Dave Procedure Note Diya Light Jr., MD - 04/19/2015 ADDENDUM- Patient's previous studies are now available dated 08/22/2010 and 01/12/2010. Patient has had previous biopsy. The overall appearance is stable. IMPRESSION- BIRADS 2- Benign findings. RECOMMENDATION- Recommend routine follow-up for continued breast evaluation. Today's study was evaluated in conjunction with computer-aided detection. PLEASE NOTE THE FOLLOWING ACR RECOMMENDATIONS- A- Only 80% of breast cancers can be diagnosed by mammography. B- A negative mammogram does not exclude cancer in clinically palpable abnormalities. Biopsy should be done based on ultrasound findings and clinical judgment. C- A mammogram has limited value in detecting cancer in patients with adenosis or dense breasts. [employer] GUID[employer] For breast cancer detection in asymptomatic women- Age ACR Recommendations 35-40 Baseline Mammogram 40-49 Annual or Biannual Mammogram 50+ Annual Mammogram Annual physical and frequent self breast examination. Patient has been entered into an automatic reminder system. Addendum Reading Akash LIGHT Addendum Releasing Akash LIGHT Addendum Released Date Time- 04/19/15 1550 Addendum Candy Bar Attendant- Jaylen BILATERAL SCREENING MAMMOGRAM WITH TOMOSYNTHESIS PNL- CLINICAL INDICATION- Screening mammography. FAMILY HISTORY- Intermediate. Shabana Model lifetime risk 18.3%. TECHNIQUE- Standard craniocaudal and oblique views of both breasts were obtained digitally and are supplemented with tomographic images of both the right and left breast. COMPARISON- Not immediately available. FINDINGS- The breast tissue is heterogeneously dense. There are no spiculated masses or suspicious microcalcifications. No focal parenchymal distortion is present. Calcifications are noted bilaterally and probably benign. Also nodular densities bilaterally. I need the patient's outside films to compare. IMPRESSION- BIRADS 0- Incomplete. RECOMMENDATION- Need outside images for comparison. Today's study was evaluated in conjunction with computer-aided detection. PLEASE NOTE THE FOLLOWING ACR RECOMMENDATIONS- A- Only 80% of breast cancers can be diagnosed by mammography. B- A negative mammogram does not exclude cancer in clinically palpable abnormalities. Biopsy should be done based on ultrasound findings and clinical judgment. C- A mammogram has limited value in detecting cancer in patients with adenosis or dense breasts. [employer] For breast cancer detection in asymptomatic women- Age ACR Recommendations 35-40 Baseline Mammogram 40-49 Annual or Biannual Mammogram 50+ Annual Mammogram Annual physical and frequent self breast examination. Patient has been entered into an automatic reminder system. Reading Radiologist- DIYA LIGHT Releasing Radiologist- DIYA LIGHT Released Date Time- 04/06/15 5787 Fernando Acosta us Gregorio Mcgee MD IMG MAMMOGRAPHY ORDERABLES Edite d Result - Final from Last 3 Months or Most Recently Relevant to Health Maintenance Insurance [facility] MEDICARE A & B Care Teams Retail Support Associate Relationship Specialty Start Date End Date Sandra Orozco APRN [address] [place] [address] SANDER BERMUDEZ [id number] PCP - General Internal Medicine 05/11/24
--- OUTSIDE RECORDS SUMMARY | 2024-10-06 15:31 | XMS_ITS | Encounter Summary ---
Author Organization [facility] ([place], [place], [place], [place]) Address [address] [place] [address] Care Team Providers Care Lock Maintenance Supervisor Name Role Phone Gladis Orozco APRN Primary Care Provider [phone] Encounter Details Date Type Department Care Team (Late st Contact Info) Description 05/19/2021 Transcribed Document [facility] Family Medicine [address] [place] [address] ProviderAide MD [address] [place] [address] Social History Tobacco Use Types [...] your living situation today? I have a [facility] place to live 10/13/2023 Think about the [...] Do you speak a language other than [place] at [facility]? No 10/13/2023 Do you want help with [...] - Historical ProviderMD - 05/19/2021 12:58 PM CHINA DECORATOR [place] [address] [place] [phone] CASI GRECO :1960 Visit Time:05/19/2021 Your Visit [...] Where: [address] [place] [address]- Medications What How Much When Instructions Next [...] Fats and oils Meat fat, or shortening. [place] butter, hydrogenated oils, palm oil, coconut oil, [...] provider. Document Revised: 05/01/2018 Document Reviewed: 04/04/2018 [employer] Patient Education ?? 2020 [employer]. It???s Cold and Flu Season ??? How [...] to thoroughly wash your hands, use hand scientific programmer analyst. While handwashing is best, hand scientific programmer analyst helps to reduce the spread of germs when you are out and about. Have hand scientific programmer analyst in several locations so you can always [...] keep people from also getting sick. Don???t [place] It! Sneezing this time of year is [...] Assistance with quitting is available by contacting 9-308-KVJHNOW. This is a free resource providing counseling, support, and referral. Or you may contact your personal physician. [place] Suicide Prevention Lifeline: The National Suicide Prevention [...] was given the opportunity to ask questions. Patient/Sausage Grinder Name: Patient/Sausage Grinder Signature: Relationship to Patient: Clinician/Hospital Sausage Grinder Signature: Date: documented in this encounter Plan of Treatment Not on file documented as of this encounter Visit Diagnoses Not on filedocumented in this encounter Care Teams Lock Maintenance Supervisor Relationship Specialty Start Date End Date Gladis Orozco APRN [address] [address] PCP - General Nurse Practitioner 01/24/22 documented as of this encounter
--- OUTSIDE RECORDS SUMMARY | 2024-10-06 15:31 | XMS_ITS | Encounter Summary ---
Author Organization [employer] ([place], [place], [place], [place]) Address [address] [place] [address] Care Team Providers Care Clinical Orthoptist Name Role Phone Sandra Orozco APRN Primary Care Provider [phone] Encounter Details Date Type Department Care Team (Late st Contact Info) Description 05/19/2021 Transcribed Document [facility] [place] [address] [place] [address] ProviderAide MD [address] [place] [address] Social History Tobacco Use Types [...] living situation today? I have a [facility] place to live 10/13/2023 Think about [...] speak a language other than Bulgarian at [facility]? No 10/13/2023 Do you want [...] - Historical Provider, - 05/19/2021 2:23 PM LOAN DOCUMENTATION SPECIALIST DATE OF SERVICE: 05/19/2021 INDICATIONS: Palpitations, . [...] weeks for suture removal and wound check. /[id number] Christy Kirk MD AE/AQ / AE / MODL /[id number] Electronically signed by Kamron [facility] Conversion Certified Emergency Vehicle Technician Cerner at 06/27/2022 8:05 AM CDT documented in this encounter Plan of Treatment Not on file documented as of this encounter Visit Diagnoses Not on filedocumented in this encounter Care Teams Clinical Orthoptist Relationship Specialty Start Date End Date Orozco Sandra, FIRE CREW WORKER [address] [place] [address] PCP - General Nurse Practitioner 01/24/22 documented as of this encounter
== END 2024-10-05 23:59 | disposition home or self-care (01) ==
LOC: LAB.DROPOF 10-06 15:28
PROVIDERS: PCP Nurse Practitioner Family; Visit Provider Nurse Practitioner Family
DX: M25.50 Pain in unspecified joint (principal)
CPT/HCPCS: 84550; 85651; 86038; 86431

== ENCOUNTER 2024-11-04 09:19 | Outpatient (CLI) | payer MEDICARE, OTHER, SELFPAY ==
--- OUTSIDE RECORDS SUMMARY | 2024-11-04 09:27 | XMS_ITS | Encounter Summary ---
Author Organization [employer] ([place], [place], [place], [place]) Address [address] [place] [address] Care Team Providers Care Microfilm Equipment Inspector Name Role Phone Gladis Orozco APRN Primary Care Provider [phone] Encounter Details Date Type Department Care Team (Late st Contact Info) Description 05/19/2021 Transcribed Document [facility] [place] Family Medicine [address] [place] [address] ProviderAide MD [address] [place] [address] Social History Tobacco Use Types [...] your living situation today? I have a [facility] place to live 10/13/2023 Think about [...] Do you speak a language other than Barbadian at [facility]? No 10/13/2023 Do you want help with [...] - Historical ProviderMD - 05/19/2021 12:58 PM BIOMEDICAL EQUIPMENT SUPPORT SPECIALIST [place] [address] [address] [place] [id number] CASI GRECO :1960 Visit Time:05/19/2021 Your Visit [...] Where: [address] [place] [address]- Medications What How Much When Instructions Next [...] Fats and oils Meat fat, or shortening. [place] butter, hydrogenated oils, palm oil, coconut oil, [...] provider. Document Revised: 05/01/2018 Document Reviewed: 04/04/2018 [employer] Patient Education ?? 2020 [employer]. It???s Cold and Flu Season ??? How [...] to thoroughly wash your hands, use hand noc analyst. While handwashing is best, hand noc analyst helps to reduce the spread of germs when you are out and about. Have hand noc analyst in several locations so you can [...] keep people from also getting sick. Don???t [place] It! Sneezing this time of year is [...] Assistance with quitting is available by contacting 1-408-FDDONOW. This is a free resource providing counseling, support, and referral. Or you may contact your personal physician. [place] Suicide Prevention Lifeline: The National Suicide Prevention [...] was given the opportunity to ask questions. Patient/Second Baker Name: Patient/Second Baker Signature: Relationship to Patient: Clinician/Hospital Second Baker Signature: Date: documented in this encounter Plan of Treatment Not on file documented as of this encounter Visit Diagnoses Not on filedocumented in this encounter Care Teams Microfilm Equipment Inspector Relationship Specialty Start Date End Date Gladis Orozco APRN [address] [address] PCP - General Nurse Practitioner 01/24/22 documented as of this encounter
--- OUTSIDE RECORDS SUMMARY | 2024-11-04 09:27 | XMS_ITS | Encounter Summary ---
Author Organization [employer] ([place], [place], [place], [place]) Address [address] [place] [address] Care Team Providers Care Buck Presser Name Role Phone Sandra Orozco APRN Primary Care Provider [phone] Encounter Details Date Type Department Care Team (Late st Contact Info) Description 05/19/2021 Transcribed Document [facility] [place] Family Medicine [address] [place] [address] ProviderAide MD [address] [place] [address] Social History Tobacco Use Types [...] your living situation today? I have a [facility] place to live 10/13/2023 Think about [...] Do you speak a language other than Malaysian at [facility]? No 10/13/2023 Do you want [...] - Historical Provider, - 05/19/2021 12:56 PM WIRE HARNESS ASSEMBLER Patient Education Materials Follows: It???s Cold and [...] to thoroughly wash your hands, use hand electron beam operator. While handwashing is best, hand electron beam operator helps to reduce the spread of germs when you are out and about. Have hand electron beam operator in several locations so you can always [...] keep people from also getting sick. Don???t [place] It! Sneezing this time of year is [...] Fats and oils Meat fat, or shortening. [place] butter, hydrogenated oils, palm oil, coconut oil, [...] provider. Document Revised: 05/01/2018 Document Reviewed: 04/04/2018 [employer] Patient Education ? 2020 [employer] documented in this encounter Plan of Treatment Not on file documented as of this encounter Visit Diagnoses Not on filedocumented in this encounter Care Teams Buck Presser Relationship Specialty Start Date End Date Sandra Orozco, BRIDGE BUILDER [address] [place] [id number] PCP - General Nurse Practitioner 01/24/22 documented as of this encounter
--- OUTSIDE RECORDS SUMMARY | 2024-11-04 09:27 | XMS_ITS | Encounter Summary ---
Author Organization [employer] ([place], [place], [place], [place]) Address [address] [place] [address] Care Team Providers Care Solutions Consultant Name Role Phone Sandra Orozco RUBEN Primary Care Provider Encounter Details Date Type Department Care Team (Late st Contact Info) Description 03/01/2020 Transcribed Document [facility] [place] [facility] [place] [address] ProviderAide MD [address] [place] [address] Social History Tobacco Use Types Packs/Day [...] Historical MD Derek - 03/01/2020 11:34 AM GIS SOFTWARE DEVELOPER DATE OF PROCEDURE: 03/01/2020 SURGEON: Noemi Mayfield [...] 18-gauge Tuohy needle was advanced by the zvrt-wf-zuyieohppn technique under direct fluoroscopic guidance into the [...] visit and the patient has been afebrile. /[id number] Noemi Mayfield MD, JELANI Pain Certified DELILAH/ANTHONY / KR / MODL /[id number] documented in this encounter Plan of Treatment Not on file documented as of this encounter Visit Diagnoses Not on filedocumented in this encounter Care Teams Solutions Consultant Relationship Specialty Start Date End Date Sandra Orozco, LEATHER GOODS I ASSEMBLER [address] [place] [address] PCP - General Nurse Practitioner 01/24/22 documented as of this encounter
--- OUTSIDE RECORDS SUMMARY | 2024-11-04 09:27 | XMS_ITS | Encounter Summary ---
Author Organization [employer] ([place], [place], [place], [place]) Address [address] [place] [address] Care Team Providers Care Mine Equipment Design Engineer Name Role Phone Sandra Orozco APRN Primary Care Provider [phone] Encounter Details Date Type Department Care Team (Late st Contact Info) Description 05/19/2021 Transcribed Document [facility] [place] Family Medicine [address] [place] [address] ProviderAide MD [address] [place] [address] Social History Tobacco Use Types [...] Do you speak a language other than Tuvaluan at [facility]? No 10/13/2023 Do you want help with [...] - Historical Provider, - 05/19/2021 2:36 PM HARDWARE PRESS OPERATOR Nursing Discharge Summary Entered On: 05/19/2021 14:37 [...] 14:36 EST Electronically signed by Kamron [facility] Conversion Orbitread Operator Cerner at 06/27/2022 8:11 AM CDT documented in this encounter Plan of Treatment Not on file documented as of this encounter Visit Diagnoses Not on filedocumented in this encounter Care Teams Mine Equipment Design Engineer Relationship Specialty Start Date End Date Sandra Orozco APRN [address] [id number] PCP - General Nurse Practitioner 01/24/22 documented as of this encounter
--- OUTSIDE RECORDS SUMMARY | 2024-11-04 09:27 | XMS_ITS | Encounter Summary ---
Author Organization [employer] ([place], [place], [place], [place]) Address [address] [place] [address] Care Team Providers Care Supervisor Leaf Spring Fabrication Name Role Phone Sandra Orozco APRN Primary Care Provider [phone] Encounter Details Date Type Department Care Team (Late st Contact Info) Description 05/19/2021 Transcribed Document [facility] [place] [address] [place] [address] ProviderAide MD [address] [place] [address] Social History Tobacco Use Types [...] your living situation today? I have a [facility] place to live 10/13/2023 Think about the [...] Do you speak a language other than Macanese at [facility]? No 10/13/2023 Do you want help with [...] - Historical Provider, - 05/19/2021 12:51 PM HEAD OF MATHEMATICS PAT Adult Entered On: 05/19/2021 12:55 EST [...] Source : Stated Height Entry Format : [place] Height, Feet : 5 ft(Converted to: 152 cm, 60 Inch) Height, Inches : 0 Inch(Converted to: 0 ft 0 Inch, 0.00 cm) Clinical Height : 152.4 cm Weight Source : Standing scale Weight Entry Format : [place] Clinical Dosing Weight : 69.09 kg Weight, Pounds : 152 lb Body Surface Area (BSA) : 1.66 m2 Body Mass Index : 29.7 kg/m2 (HI) [place] Body Weight : 45 kg AZUCENA PALACIO [...] Directive information AZUCENA PALACIO 05/19/2021 12:51 EST [place] Suicide Severity Rating Scale (C-SSRS) CSSRS Past [...] Person/Pt Rep Contact Information : LUDWIN FOOTE [phone] STEP MOM Want Family/Rep/Phys Notified of Admit [...] filedocumented in this encounter Care Teams Supervisor [employer]ation Relationship Specialty Start Date End Date Sandra Orozco APRN [address] [address] PCP - General Nurse Practitioner 01/24/22 documented as of this encounter
--- OUTSIDE RECORDS SUMMARY | 2024-11-04 09:27 | XMS_ITS | Clinical Summary ---
Author Organization [facility] Address [address] [place] [address] Care Team Providers Care Ship Surveyor Name Role Phone Adryan Cooper MD Primary Care Provider [phone] Allergies Active Allergy Reactions Criticality Noted Date [...] tablet (5 mg). 05/28/2016 Active HYDROcodone-gudelia taminophen ([place]) 10-325 MG tablet 1 tablet (10 mg [...] Screening 1960 [facility]-Medicare Annual Wellness (AWV) 1960 [facility]-Infant/Child/Adol SDOH Screenings 1960 [facility]- SDOH Screenings 1976 [facility]-Adult SDOH Screenings 1976 CT Colonography 2003 Colonoscopy 2003 FIT-DNA 2003 FIT 2003 FOBT 2003 Sigmoidoscopy 2003 [facility]-Colorectal Cancer Screening 2003 [facility]-Pneumococcal Vaccine: 50 + Years (1 of 1 - PCV) 2008 [facility]-Zoster Vaccines (1 of 2) 2008 [facility]-Breast Cancer Screening 04/06/201703/12, 04/06/2015 [id number]-[id number] Vaccine ( season) 2023 01/20/2021, 06/16/2020 [facility]-Influenza [...] MEDICARE COMBINED PRIORITY 1 CARD Care Teams Ship Surveyor Relationship Specialty Start Date End Date Adryan Cooper MD [address] [place] [address] PCP - General 07/22/20
--- OUTSIDE RECORDS SUMMARY | 2024-11-04 09:27 | XMS_ITS | Encounter Summary ---
Author Organization [employer] ([place], [place], [place], [place]) Address [address] [place] [address] Care Team Providers Care Supervisor Machine Setter Name Role Phone Sandra Orozco APRN Primary Care Provider [phone] Encounter Details Date Type Department Care Team (Late st Contact Info) Description 05/19/2021 Transcribed Document [facility] [address] [place] [address] ProviderAide MD [address] [place] [address] Social History Tobacco Use Types [...] your living situation today? [facility] place [facility] live 10/13/2023 Think about [...] Do you speak a language other than Burundian at [facility]? No 10/13/2023 Do you want [...] - Historical Provider, - 05/19/2021 12:57 PM OUTPATIENT PHARMACY MANAGER Stroke/Warfarin Instructions Entered On: 05/19/2021 12:57 EST Performed On: 05/19/2021 12:57 EST by AZUCENA PALACIO Stroke/Warfarin Instructions Stroke/TIA Discharge Ins : N/A Warfarin Discharge Ins : N/A AZUCENA PALACIO - 05/19/2021 12:57 EST Electronically signed by Kamron [facility] Conversion Cupola Operator Insulation Cerner at 06/27/2022 8:14 AM CDT documented in this encounter Plan of Treatment Not on file documented as of this encounter Visit Diagnoses Not on filedocumented in this encounter Care Teams Supervisor Machine Setter Relationship Specialty Start Date End Date Sandra Orozco APRN [address] [phone] PCP - General Nurse Practitioner 01/24/22 documented as of this encounter
--- OUTSIDE RECORDS SUMMARY | 2024-11-04 09:27 | XMS_ITS | Referral Summary ---
Author Organization [employer] ([place], [place], [place], [place]) Address [address] [place] [address] Care Team Providers Care Mint Machine Operator Name Role Phone OrozcoKrystenrafael MIRANDA Primary Care Provider [phone] Allergies Active Allergy Reactions Criticality Noted Date [...] your living situation today? I have a [facility] place to live 10/13/2023 Think about [...] Do you speak a language other than Citizen Of [place] at [facility]? No [...] on file Medical Devices Implanted Type Area Railroad Brakeman Device Identifier Shelf Expiration Date Model / Serial / Lot Sealant Durasl Spine 5ml [id number] - [id number] Implanted:Qty: 1 on 01/31/2022 by Emeka Fernández MD at [facility] IMPLANTS N/A: Back [employer] 07/09/2023905850 / [id number] Cement Spinal Confidence 2839-10-000 - [id number] Implanted:Qty: 2 on 10/14/2023 at [facility] IMPLANTS N/A: Back J &J:DEPUY:DEPUY SPINE 06/08/2025 0 / / [id number] Insurance MEDICARE PART A B GENERIC COMMERCIAL Advance Directives For more information, please contact: [phone] Documents on File Type Date Recorded Patient Scientific Associate Expl anation Advance Directives and Marixa g [...] Son First Alternate Healthcare Decision-Maker Care Teams Mint Machine Operator Relationship Specialty Start Date End Date Sandra Orozco, BOTTLE PACKING MACHINE CLEANER [address] [place] [address] PCP - General Nurse Practitioner 01/24/22
--- OUTSIDE RECORDS SUMMARY | 2024-11-04 09:27 | XMS_ITS | Clinical Summary ---
Author Organization [employer] ([place], [place], [place], [place]) Address [address] [place] [address] Care Team Providers Care Hand Button Splitter Name Role Phone OrozcoKrysten randhawarafael MIRANDA Primary Care Provider [phone] Allergies Active Allergy Reactions Criticality Noted Date [...] your living situation today? I have a [facility] place to live 10/13/2023 Think about [...] Do you speak a language other than Cay[place] Islander at [facility]? No 10/13/2023 Do you want [...] 06/22/2009, 08/29/2001 Medical Devices Implanted Type Area Title I Coordinator Device Identifier Shelf Expiration Date Model / Serial / Lot Sealant Durasl Spine 5ml [id number] - [id number] Implanted:Qty: 1 on 01/31/2022 by Emeka Fernández MD at [facility] IMPLANTS N/A: Back [employer] 07/09/[id number] / / [id number] Cement Spinal Confidence 2839-10-000 - [id number] Implanted:Qty: 2 on 10/14/2023 at [facility] IMPLANTS N/A: Back J &J:DEPUY:DEPUY SPINE 06/08/2025 [id number] Insurance MEDICARE PART A B GENERIC COMMERCIAL Advance Directives For more information, please contact: [phone] Documents on File Type Date Recorded Patient Rn Paralegal Expl anation Advance Directives and Livin g Will 01/31/2022 8:44 AM * Full Code (Latest Code Status on File) Date Activated Date Inactivated Comments 10/12/2023 11:08 PM 10/15/2023 6:49 PM * Full Code Date Activated Date Inactivated Comments 01/31/2022 5:41 PM 02/01/2022 4:50 PM Healthcare Agents on File Name Relationship Healthcare Agent [facility] Communication Luis Anthony Son First Alternate Healthcare Decision-Maker Care Teams Hand Button Splitter Relationship Specialty Start Date End Date Sandra Orozco APRN [address] [address] PCP - General Nurse Practitioner 01/24/22
--- OUTSIDE RECORDS SUMMARY | 2024-11-04 09:27 | XMS_ITS | Encounter Summary ---
Author Organization [employer] ([place], [place], [place], [place]) Address [address] [place] [address] Care Team Providers Care Sales Training Coordinator Name Role Phone Sandra Orozco APRN Primary Care Provider [phone] Encounter Details Date Type Department Care Team (Late st Contact Info) Description 05/19/2021 Transcribed Document [facility] [place] [address] [place] [address] ProviderAide MD [address] [place] [address] Social History Tobacco Use Types [...] your living situation today? I have a [facility] place to live 10/13/2023 Think about [...] Do you speak a language other than Mauritian at [facility]? No 10/13/2023 Do you want [...] - Historical Provider, - 05/19/2021 2:23 PM PLASTIC AND RECONSTRUCTIVE SURGEON DATE OF SERVICE: 05/19/2021 INDICATIONS: Palpitations, . [...] weeks for suture removal and wound check. /[id number] Christy Kirk MD AE/AQ / AE / MODL /[id number] Electronically signed by Kamron [facility] Conversion Electric Motor Repair Supervisor Cerner at 06/27/2022 8:05 AM CDT documented in this encounter Plan of Treatment Not on file documented as of this encounter Visit Diagnoses Not on filedocumented in this encounter Care Teams Sales Training Coordinator Relationship Specialty Start Date End Date Orozco Sandra, TEST BORER HELPER [address] [place] [address] PCP - General Nurse Practitioner 01/24/22 documented as of this encounter
--- OUTSIDE RECORDS SUMMARY | 2024-11-04 09:27 | XMS_ITS | Encounter Summary ---
Author Organization [employer] ([place], [place], [place], [place]) Address [address] [place] [address] Care Team Providers Care Environmental Analyst Name Role Phone Sandra Orozco RUBEN Primary Care Provider Encounter Details Date Type Department Care Team (Late st Contact Info) Description 01/25/2020 Transcribed Document [facility] [place] Family Medicine [address] [place] [address] ProviderAide MD [address] [place] [address] Social History Tobacco Use Types Packs/Day Years Used Date Smoking Tobacco: Never Assessed Comments Unknown Sex and Gender Information Value Date Recorded Sex Assigned at Not on file Legal Sex Female 2:35 PM CDT Gender Identity Not on file Sexual Orientation Not on file documented as of this encounter Miscellaneous Notes * Cerner Conversion Note - Historical ProviderMD - 01/25/2020 6:55 AM DRAMA THERAPIST DATE OF ADMISSION: 01/22/2020 HISTORY OF PRESENT [...] applying ice and heat, physical therapy, exercise, [id number] medication, bed rest going to [facility], [...] to contact her primary physician and her senior service aide to see if we can hold the [...] visit and the patient has been afebrile. /[id number] Karim Chaparro, MD, JELANI Pain Certified KR/AQ / KR / MODL CC: MD Sandra Valero APRN Electronically signed by Interface, [facility] Conversion Cray Fishing Hand Cerner at 06/27/2022 8:04 AM CDT documented in this encounter Plan of Treatment Not on file documented as of this encounter Visit Diagnoses Not on filedocumented in this encounter Care Teams Environmental Analyst Relationship Specialty Start Date End Date Sandra Orozco, RUBEN [address] [address] PCP - General Nurse Practitioner 01/24/22 documented as of this encounter
--- OUTSIDE RECORDS SUMMARY | 2024-11-04 09:28 | XMS_ITS | Clinical Summary ---
[facility] Address [address] [place] [address] Care Team Providers Care Planner Intern Name Role Phone Sandra Orozco APRN Primary Care Provider Allergies Active Allergy Reactions [...] all over Nortriptyline Swelling Low 04/15/2024 Poison [place] Extract Hives,Itching,Swell ing,Rash Low 04/15/2024 Poison oak/poison [...] Assessment & Plan (07/16/2024 12:10 PM EDT): [id number] Continue Xarelto 15 mg p.o. daily, [...] Type Department Care Team Description 08/28/2024 Refill [facility] [address] [place] [address] [address] [place] [address] Christy Kirk MD Med Refill 08/27/2024 Refill [facility] [address] [facility] [address] [place] [address] Christy Kirk MD Med Refill 08/13/2024 12:30 PM EDT Office Visit [facility] [address] [facility] [address] [place] [address] Dina Solano APRN Paroxysmal atrial fibrillation (Primary Dx); Chronic respiratory failure with hypoxia, on home O2 therapy; Moderate aortic valve regurgitation; Hyperlipidemia, unspecified hyperlipidemia type 08/13/2024 Travel from Last 3 Months Family History [...] Description 11/17/2024 12:30 PM EDT Office Visit [facility] [address] [facility] [facility] [address] [phone] Dina Solano APRN [address] [facility] [address] [place] [address] Health Maintenance Due Date Last Done Comments [...] Procedure Name Priority Date/Time Associated Diagnosis Comments LIPID PANEL Routine 07/06/2024 Hyperlipidemia LDL goal <55 MAMMO SCREENING DIGITAL TOMOSYNTHESIS BILATERAL W CAD Routine 04/06/2015 9:03 AM EST from Last 3 Months or Most Recently Relevant to Health Maintenance Results * Lipid Panel (07/06/2024) Blood Christy Kirk MD LAB BLOOD ORDERABLES Final Resul t [facility] * Mammo screening digital [...] in patients with adenosis or dense breasts. [employer] For breast cancer detection in asymptomatic women- Age ACR Recommendations 35-40 Baseline Mammogram 40-49 Annual or Biannual Mammogram 50+ Annual Mammogram Annual physical and frequent self breast examination. Patient has been entered into an automatic reminder system. Addendum Reading Radiologist- DIYA W KULDEEP Addendum Releasing Akash LIGHT Addendum Released Date Time- 04/19/15 1550 Addendum Supervisor Powdered Sugar- Jaylen BILATERAL SCREENING MAMMOGRAM WITH TOMOSYNTHESIS PNL- [...] in patients with adenosis or dense breasts. [employer] For breast cancer detection in asymptomatic women- Age ACR Recommendations 35-40 Baseline Mammogram 40-49 Annual or Biannual Mammogram 50+ Annual Mammogram Annual physical and frequent self breast examination. Patient has been entered into an automatic reminder system. Reading SharAndre LIGHT Releasing Akash LIGHT Released Date Time- 04/06/15 1055 Fernando Acosta Procedure Note Diya Light Jr., MD - [...] in patients with adenosis or dense breasts. [employer] For breast cancer detection in asymptomatic women- Age ACR Recommendations 35-40 Baseline Mammogram 40-49 Annual or Biannual Mammogram 50+ Annual Mammogram Annual physical and frequent self breast examination. Patient has been entered into an automatic reminder system. Addendum Reading Radiologist- DIYA LIGHT Addendum Releasing Radiologist- DIYA LIGHT Addendum Released Date Time- 04/19/15 1550 Addendum Supervisor Powdered Sugar- Jaylen BILATERAL SCREENING MAMMOGRAM WITH TOMOSYNTHESIS PNL- [...] in patients with adenosis or dense breasts. [employer] For breast cancer detection in asymptomatic women- Age ACR Recommendations 35-40 Baseline Mammogram 40-49 Annual or Biannual Mammogram 50+ Annual Mammogram Annual physical and frequent self breast examination. Patient has been entered into an automatic reminder system. Reading Radiologist- DIYA LIGHT Releasing Radiologist- DIYA LIGHT Released Date Time- 04/06/15 1055 Supervisor Powdered SugarAndre Acosta Gregorio Mcgee MD IMG MAMMOGRAPHY ORDERABLES Edite d Result - Final from Last 3 Months or Most Recently Relevant to Health Maintenance Insurance MEDICARE A & B Care Teams Planner Intern Relationship Specialty Start Date End Date Sandra Orozco APRN [address] [place] [address] [place] [address] PCP - General Internal Medicine 05/11/24
--- NOTE | 2024-11-04 09:30 | CT_ITS ---
FINAL REPORT TECHNIQUE: Thin section axial images were obtained through the lungs using a low-dose technique per lung cancer screening protocol. Reconstruction images were obtained using the axial data. Exam was performed using dose reduction technique. This study was performed with techniques to keep radiation doses as low as reasonably achievable (ALARA). Individualized dose reduction techniques using automated exposure control or adjustment of mA and/or kV according to the patient's size were employed. CLINICAL HISTORY: lung cancer screening former smoker x 1 year 2 ppd x 45 years COMPARISON: CT of the chest 11/04/2023 FINDINGS: CTDLvol: 2.90 DLP: 96.38 Former smoker for 1 year [id number] pack year history Lungs: Changes of emphysema are noted. There is a 3 mm left apical nodule present best seen on image #10 of series 4, stable. There is evidence of prior granulomatous disease. There is posterior left upper lobe atelectasis, which is stable in appearance. There is also right middle lobe atelectasis or scar present, also stable. Lymph nodes: No thoracic lymphadenopathy. Mediastinum: Heart size is normal. Prominent coronary artery calcifications are present. Pleura/pericardium: No pleural or pericardial effusion. Other: No acute abnormality in the upper abdomen. IMPRESSION: Stable 3 mm nodule in the left apex as described. No new nodules are identified. Lung RADS: 2S, the S designation for coronary artery calcifications. Recommendation: 12-month follow-up LDCT Reviewed, Interpreted and Dictated by Priya Villalobos MD Transcribed by Anais Fierro Authenticated and [facility]
== END 2024-11-04 23:59 | disposition home or self-care (01) ==
LOC: RAD 09:19
PROVIDERS: PCP Nurse Practitioner Family; Visit Provider Internal Medicine Pulmonary Disease
DX: Z12.2 Encounter for screening for malignant neoplasm of respiratory organs (principal); R91.1 Solitary pulmonary nodule; J43.9 Emphysema, unspecified; R06.09 Other forms of dyspnea; Z87.891 Personal history of nicotine dependence
CPT/HCPCS: 71271; 94618

== ENCOUNTER 2024-11-23 09:45 | Outpatient (CLI) | payer MEDICARE, OTHER, SELFPAY ==
--- OUTSIDE RECORDS SUMMARY | 2024-11-12 12:30 | XMS_ITS | Encounter Summary ---
[facility] Address [address] [place] [address] Care Team Providers Care Director Of Application Development Name Role Phone Sandra Orozco APRN Primary Care Provider Reason for Visit * Reason Comments Hyperlipidemia Chronic Venous Insufficiency Atrial Fibrillation Encounter Details Date Type Department Care Team (Late st Contact Info) Description 11/12/2024 12:30 PM EDT Office Visit [facility] CARDIOLOGY [address] [facility] [address], [place] [address] Dina Solano APRN 3000 [facility] [address] [place] [address] Shortness of breath (Primary Dx); Generalized edema; [...] = 0.6 oz pur e alcohol) former [facility] Utilities Answer Date Recorded In the past 12 months has [employer] electric, gas, oil, or water company threatened [...] care, and heating? Not very hard 11/13/2024 [facility] of Occupat ional Health - Occupational [...] GED or equivalent No 11/13/2024 Preferred Language Danish 11/13/2024 PHQ-2 Answer Date Recorded Patient Health [...] 12:30 PM EDTAssociated Problem(s): Peripheral arterial disease Continue Xarelto 15 mg p.o. daily Patient previously intolerant to statins Consider Repatha * Dina Solano APRN - 11/12/2024 12:30 PM EDTAssociated Problem(s): Shortness of breath Patient presents to the office today after following up with pulmonology yesterday with concerns ofworsening shortness of breath and lower extremity edema. Her operator control room was concerned about heart failure and advised [...] PCP: Sandra Orozco APRN Date: 11/12/2024 Department: [facility] CARDIOLOGY [address] [facility] [address] [facility] [phone] Chief Complaint: Chief Complaint Patient presents with Hyperlipidemia Chronic Venous Insufficiency Atrial Fibrillation Problem list: Paroxysmal atrial fibrillation/History of ischemic CVA/TIAs status post loop explant [id number] (Female, Age, CVA, PAD) PAF noted [...] has been diagnosed with COPD by her operator control room who she was at a follow-up with [...] of breath and lower extremity edema. Her operator control room was concerned about heart failure and advised [...] evaluation. Patient reports she will go to [facility] this afternoon. Follow Up Return in about 2 weeks (around 11/26/2024) for With Me. Patient or patient health and safety representative verbalized consent for the use of Ambient Listening during the visit with Dina Solano APRN for chart documentation. 11/12/2024 12:47 EDT Dina Solano APRN [facility] Cardiology documented in this encounter Plan of Treatment Upcoming Encounters Date Type Department Care Team (Late st Contact Info) Description 11/26/2024 11:00 AM EDT Office Visit [facility] CARDIOLOGY [address] [facility] [address] [place] [id number] Dina Solano APRN [address] [facility] [address] [place] [address] documented as of this encounter Visit Diagnoses Diagnosis Shortness of breath- Primary Generalized edema Edema Chronic respiratory failure with hypoxia Paroxysmal atrial fibrillation Atrial fibrillation History of CVA (cerebrovascular accident) Transient ischemic attack (TIA), and cerebral infarction without residual deficits Moderate aortic valve regurgitation Peripheral arterial disease Unspecified peripheral vascular disease documented in this encounter Care Teams Director Of Application Development Relationship Specialty Start Date End Date Sandra Orozco APRN [facility] [address] [address] PCP - General Internal Medicine 05/11/24 documented as of this encounter
--- OUTSIDE RECORDS SUMMARY | 2024-11-12 21:36 | XMS_ITS | Encounter Summary ---
[facility] Organization [facility] Address [address] [place] [address] Care Team Providers Care Casing Fluid Tender Name Role Phone Sandra Orozco APRN Primary Care Provider Reason for Visit * Reason Comments Shortness of Breath * Auth/Cert Specialty Diagnoses / Procedures Referred By Contac t Referred To Contact Diagnoses Respiratory failure with hypoxia Referral ID Status Reason Start Date Expiration Date Visits Re quested Visits Authorized [id number] 1 1 Encounter Details Date Type Department Care Team (Late st Contact Info) Description 11/12/2024 9:36 PM EDT - 11/14/2024 4:38 PM EDT Hospital Encounter [address] [place] [phone] Vasu Mckeon MD [address] [place] [address] Domitila Villalobos MD [address] [facility] 4[address] [place], [place] [id number] Mel Palma DO [address] [place] [address] Vasu Luke MD [address] [address] Referred by health direct support professional caregiver (Primary Dx); Dyspnea on exertion; Chronic respiratory failure with hypoxia, on home O2 therapy; SMOOTH (obstructive sleep apnea); Elevated troponin; Moderate aortic valve regurgitation Discharge Disposition: Home or Self Care Social History Tobacco Use Types Packs/Day Years Used Date Smoking Tobacco: Former Cigarettes Smokeless Tobacco: Never Comments:Smoked since 1973 Alcohol Use Standard Drinks/Week Comments Not Currently 0 (1 standard drink = 0.6 oz pur e alcohol) former [facility] Utilities Answer Date Recorded In the past 12 months has [employer] electric, gas, oil, or water [place] threatened to shut off services in your [...] care, and heating? Not very hard 11/13/2024 [facility] [place] of Occupat ional Health - Occupational Stress [...] Answer Date Recorded Current Living Arrangements home 08/2024 Potentially Unsafe Housing Conditions none 11/14/2024 Family and Community Support Answer Rex e [...] GED or equivalent No 11/13/2024 Preferred Language Kittitian 11/13/2024 PHQ-2 Answer Date Recorded Patient Health [...] Sign Reading Time Taken Comments Blood Pressure 121/47 11/14/2024 11:29 AM EDT Pulse 95 11/14/2024 12:09 AM EDT Temperature 36.7 C (98.1 F) 11/14/2024 7:00 AM EDT Respiratory Rate 16 11/14/2024 7:00 AM EDT Oxygen Saturation 95% 11/13/2024 1:35 PM EDT Inhaled Oxygen Concentration - - Weight 84.1 kg (185 lb 6.5 oz) 11/14/2024 11:29 AM EDT Height 152.4 cm (5') 11/14/2024 11:29 AM EDT Body Mass Index 36.21 11/14/2024 11:29 AM EDT documented in this encounter Functional Status * Audit-C Score Answer Date of Assessment Author 0 11/13/2024 2:21 PM EDT Geno Helms RN * Question Answer Date of Assessment Author Q1: How often do you have a drink containing alcohol? Never 11/13/2024 2:21 PM EDT Kelley Helms RN Q2: How many drinks containing alcohol do you have on a typical day when you are drinking? Patient does not drink 11/13/2024 2:21 PM EDT Geno Helms RN Q3: How often do you have six or more drinks on one occasion? Never 11/13/2024 2:21 PM EDT Kelley Helms RN * Over the past 2 weeks, how often have you been bothered by any of the following problems? Question Answer Date of Assessment Author Patient Health Questionnaire-2 Score 0 11/13/2024 2:21 PM EDT Sasha Helms RN * Calculated C-SSRS Risk Score (Lifetime/Recent) Answer Date of Assessment Author No Risk Indicated 11/12/2024 4:43 PM Minna Vazquez RN * [place] Suicide Severity Rating Scale (Screener/Recent Self-Report) Question Answer Date of Assessment Author 1. Wish to be (Past 1 Month) No 025 4:43 PM Minna Vazquez RN 2. Non-Specific Active Suici jesús Thoughts (Past 1 Month) No 11/12/2024 4:43 PM Minna Vazquez RN 6. Suicidal Behavior (Lifetime) No 4:43 PM EDT Minna Gamez RN * Question Answer Date of Assessment Author Little interest or pleasure in doing things Not at all 11/13/2024 2:21 PM EDT Ruthie Hemls RN Feeling down, depressed, or hopeless Not at all 11/13/2024 2:21 PM EDT Kelley Helms RN documented as of this encounter Discharge Summaries * Vasu Luke MD - 11/14/2024 1:15 PM EDT Images from the original note were not included. [facility] Medicine Services DISCHARGE SUMMARY Patient Name: Casi Cruz : 1960 Date of Admission: 11/12/2024 9:36 PM Date of Discharge: 11/14/2024 Primary Care Physician: Sandra Orozco APRN Consults Date and Time Order Name Status Description 11/13/2024 10:16 AM Inpatient Pulmonology Consult Completed 11/13/2024 2:46 AM Inpatient Cardiology Consult Completed 11/12/2024 5:20 PM Inpatient Cardiology Consult Completed Hospital Course Presenting Problem: Active Hospital Problems Diagnosis POA Respiratory failure with hypoxia [J96.91] Yes Edema [R60.9] Yes SMOOTH (obstructive sleep apnea) [G47.33] Yes Anemia [D64.9] Yes Stage 3a chronic kidney disease [N18.31] Yes Elevated troponin [R79.89] Yes Pyuria [R82.81] Yes COPD (chronic obstructive pulmonary disease) [J44.9] Yes GERD without esophagitis [K21.9] Yes Anxiety associated with depression [F41.8] Yes Primary hypertension [I10] Yes Shortness of breath [R06.02] Yes Chronic respiratory failure with hypoxia, on home O2 therapy [J96.11, Z99.81] Not Applicable Paroxysmal atrial fibrillation [I48.0] Yes History of CVA (cerebrovascular accident) [Z86.73] Not Applicable Hyperlipidemia LDL goal <55 [E78.5] Yes Moderate aortic valve regurgitation [I35.1] Yes Resolved Hospital Problems No resolved problems to display. final diagnoses Acute on chronic hypoxic resp failure, resolved -multifactorial including HFpEF & copd exacerbation Acute HFpEF Parox afib Chronic venous insufficiency of lower extremities -echo: ef normal ~65% -BLE duplex negative for dvt -on xarelto, b-lucita, bumex -cards followed; continue current meds and f/u as outpatient COPD w/ acute exacerbation Chronic 2L o2 dependence Obesity/smooth -s/p pulm evaluation -improved, prednisone x 3 more days, continue bronchodilators/inhalants; f/u regular pulm as outpatient -cpap Ckd 2-3 -baseline cr ~1.0 Chronic anemia -hgb ~8, denies overt bleeding; f/u pcp Hospital Course: Casi Cruz is a 64 y.o. female w/ hx parox afib (on xarelto), chronic 1L o2 dep copd, HFpEF, ckd 2-3 (baseline cr ~1), chronic anemia who presented w/ dyspnea. Cardiology & pulmonary consulted. CT angio chest negative. BLe venous duplex negative for dvt. Patient improved w/ diuresis, steroids and bronchodilators. Echo revealed normal EF. Patient now back to baseline respiratory status andeager to go home. Discharge Follow Up Recommendations for outpatient labs/diagnostics: Pcp [address] Kirk ([facility]) ~1 week Regular pulmonary physician 1st available Day of Discharge HPI: Feeling well, near baseline. Wants to go home. No bleeding. 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 Normal work of breathing GI: abd soft, nontender, obese Skin: No extremity rash Musculoskeletal/extremities: no cyanosis of extremities; no significant ankle edema Pertinent and/or Most Recent Results LAB RESULTS: Lab 11/13/24120611/12/241716 WBC 5.41 5.82 HEMOGLOBIN 8.1* 9.0* HEMATOCRIT 29.1* 32.5* PLATELETS 227 240 NEUTROS ABS 3.44 3.43 IMMATURE GRANS (ABS) 0.04 0.05 LYMPHS ABS 1.26 1.54 MONOS ABS 0.48 0.44 EOS ABS 0.15 0.32 MCV 74.8* 75.1* LACTATE -- 1.6 D DIMER QUANT -- 10.36* Lab 11/13/24120611/12/241716 SODIUM 143 139 POTASSIUM 3.8 4.4 CHLORIDE 102 101 CO2 31.1* 27.9 ANION GAP 9.9 10.1 BUN 19.7 24.7* CREATININE 0.93 1.06* EGFR 67.9 58.1* GLUCOSE 100* 96 CALCIUM 8.6 9.1 MAGNESIUM 1.9 1.9 PHOSPHORUS -- 4.1 HEMOGLOBIN A1C 5.84* -- TSH 2.770 2.480 Lab 11/12/241716 TOTAL PROTEIN 6.4 ALBUMIN 4.0 GLOBULIN 2.4 ALT (SGPT) 15 AST (SGOT) 27 BILIRUBIN 0.2 ALK PHOS 113 LIPASE 20 Lab 11/12/24191511/12/241716 PROBNP -- 247.0 HSTROP T 16* 17* Lab 11/12/24191511/12/241716 IRON 21* -- IRON SATURATION (TSAT) 4* -- TIBC 478 -- TRANSFERRIN 321 -- FERRITIN 13.80 -- FOLATE -- >20.00 VITAMIN B 12 -- 1,669* Lab 11/12/24 2316 FIO2 28 CARBOXYHEMOGLOBIN (VENOUS) 1.7 Brief Urine Lab Results (Last result in the past 365 days) Color Clarity Blood Leuk Est Nitrite Protein CREAT Urine HCG 11/12/24 192 276.6 11/12/241919 Yellow Clear Negative Small (1+) Negative Trace Microbiology Results (last 10 days) Procedure Component Value - Date/Time Respiratory Panel PCR w/COVID-19(SARS-CoV-2) SIDRA/CHECO/SAUD/PAD/COR/ERIC In-House, 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 Swab in UTM/VTM, 2 HR TAT - Swab, Nasopharynx [[id number]] (Normal) Collected: 11/13/24 0326 Lab Status: Final result Specimen: Swab from Nasopharynx Updated: 11/13/24 0448 ADENOVIRUS, PCR Not Detected Coronavirus 229E Not Detected Coronavirus HKU1 Not Detected Coronavirus NL63 Not Detected Coronavirus OC43 Not Detected COVID19 Not Detected Human Metapneumovirus Not Detected Human Rhinovirus/Enterovirus Not Detected Influenza A PCR Not Detected Influenza B PCR Not Detected Parainfluenza Virus 1 Not Detected Parainfluenza Virus 2 Not Detected Parainfluenza Virus 3 Not Detected Parainfluenza Virus 4 Not Detected RSV, PCR Not Detected Bordetella pertussis pcr Not Detected Bordetella parapertussis PCR Not Detected Chlamydophila pneumoniae PCR Not Detected Mycoplasma pneumo by PCR Not Detected Narrative: In the setting of a positive respiratory panel with a viral infection PLUS a negative procalcitoninwithout other underlying concern for bacterial infection, consider observing off antibiotics or discontinuation of antibiotics and continue supportive care. If the respiratory panel is positive for atypical bacterial infection (Bordetella pertussis, Chlamydophila pneumoniae, or Mycoplasma pneumoniae), consider antibiotic de-escalation to target atypical bacterial infection. COVID PRE-OP / PRE-PROCEDURE SCREENING ORDER (NO ISOLATION) - Swab, Nasopharynx [[id number]] (Normal) Collected: 11/12/24 192 Lab Status: Final result Specimen: Swab from Nasopharynx Updated: 11/12/242023 Narrative: The following orders were created for panel order COVID PRE-OP / PRE-PROCEDURE SCREENING ORDER (NO ISOLATION) - Swab, Nasopharynx. Procedure Abnormality Status --------- ------ COVID-19, FLU A/B, RSV P...[[id number]] Normal Final result Please view results for these tests on the individual orders. COVID-19, FLU A/B, RSV PCR 1 HR TAT - Swab, Nasopharynx [[id number]] (Normal) Collected: 11/12/241920 Lab Status: Final result Specimen: Swab from Nasopharynx Updated: 11/12/242023 COVID19 Not Detected Influenza A PCR Not Detected Influenza B PCR Not Detected RSV, PCR Not Detected Urine Culture - Urine, Urine, Clean Catch [[id number]] (Normal) Collected: 11/12/241919 Lab Status: Final result Specimen: Urine, Clean Catch Updated: 11/14/24 1226 Urine Culture No growth Duplex Venous Lower Extremity - Bilateral CAR Result Date: 11/13/2024 This study is negative for DVT of the right or left lower extremity. CT Angiogram Chest Pulmonary Embolism Result Date: 11/12/2024 CT ANGIOGRAM CHEST PULMONARY EMBOLISM Date of Exam: 11/12/2024 7:35 PM EDT Indication: Shortness of Breath. Comparison: None available. Technique: Axial CT images were obtained of the chest after the uneventful intravenous administration of iodinated contrast utilizing pulmonary embolism protocol. In addition, a 3-D volume rendered image was created for interpretation. Reconstructed coronal and sagittal images were also obtained. Automated exposure control and iterative construction methods were used. Findings: Pulmonary Arteries: Pulmonary artery is borderline enlarged. No evidence of pulmonary embolus Hilum and Mediastinum: No evidence of adenopathy. Heart size is normal. There is moderate coronary artery calcification. Lung Parenchyma and Pleura: There is moderate centrilobular emphysema. Central airways are patent there is atelectasis and scarring lingula and middle lobe. 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 Osseous structures: No aggressive focal lytic or sclerotic osseous lesions. No evidence of pulmonary embolus. No acute abnormality. Electronically Signed: Jed Machuca MD 11/12/2024 8:31 PM EDT Workstation ID: [id number] XR Chest 1 View Result Date: 11/12/2024 XR CHEST 1 VW Date of Exam: 11/12/2024 6:28 PM EDT Indication: SOA triage protocol. Comparison: 07/16/2024 Findings: Heart size at the upper limits of normal. Pulmonary vessels normal. Lungs are clear. No pleural effusion. No pneumothorax. Impression: 1. No acute cardiopulmonary disease. Electronically Signed: Arben Neely MD 11/12/2024 7:02 PM EDT Workstation ID: [id number] Results for orders placed during the hospital encounter of 11/12/24 Duplex Venous Lower Extremity - Bilateral CAR 11/13/2024 4:41 PM Interpretation Summary This study is negative for DVT of the right or left lower extremity. Results for orders placed during the hospital encounter of 11/12/24 Duplex Venous Lower Extremity - Bilateral CAR 11/13/2024 4:41 PM Interpretation Summary This study is negative for DVT of the right or left lower extremity. Results for orders placed during the hospital encounter of 11/12/24 Adult Transthoracic Echo Complete W/ Cont if Necessary Per Protocol 11/14/2024 12:17 PM Interpretation Summary Normal chamber size. Normal LV systolic function without segmental abnormalities. EF estimated at 65%. Normal diastolic function. Aortic valve sclerosis without stenosis. Suggest normal pulmonary artery pressure. I have personally reviewed the therapy plans: [] PT/OT/ ST Therapy Plans Plan for Follow-up of Pending Labs/Results: Pending Labs Order Current Status Folate RBC In process Discharge Details Discharge Medications New Medications Instructions Start Date PHARMACY MEDS TO BED CONSULT Not Applicable, Daily predniSONE 20 MG tablet Commonly known as: DELTASONE 40 mg, Oral, Daily Start Date: November 15, 2024 Changes to Medications Instructions Start Date potassium chloride 10 MEQ CR tablet What changed: See the new instructions. venlafaxine XR 150 MG 24 hr capsule Commonly known as: EFFEXOR-XR What changed: See the new instructions. Continue These Medications Instructions Start Date bisoprolol 5 MG tablet Commonly known as: ZEBeta 5 mg, Daily budesonide 0.5 MG/2ML nebulizer solution Commonly known as: PULMICORT 0.5 mg, Daily - RT bumetanide 1 MG tablet Commonly known as: BUMEX 1 mg, Daily Dexilant 60 MG capsule Generic drug: dexlansoprazole 60 mg, Daily dicyclomine 10 MG capsule Commonly known as: BENTYL 10 mg, 4 Times Daily Before Meals & Nightly HYDROcodone-acetaminophen 10-325 MG per tablet Commonly known as: NORCO 1 tablet, Every 4 Hours PRN levocetirizine 5 MG tablet Commonly known as: XYZAL 5 mg, Daily montelukast 10 MG tablet Commonly known as: SINGULAIR 10 mg, Daily pramipexole 1.5 MG tablet Commonly known as: MIRAPEX 3 Times Daily spironolactone 25 MG tablet Commonly known as: ALDACTONE 25 mg, Daily tiZANidine 4 MG tablet Commonly known as: ZANAFLEX 4 mg, Every 6 Hours PRN triamcinolone 0.1 % cream Commonly known as: KENALOG 1 Application, 2 Times Daily Ventolin HFA 108 (90 Base) MCG/ACT inhaler Generic drug: albuterol sulfate HFA Inhale 2 puffs every 4 hours by inhalation route as directed. Xarelto 15 MG tablet Generic drug: rivaroxaban 15 mg, Oral, Daily With Dinner Stop These Medications clotrimazole 10 MG brad Commonly known as: MYCELEX fluconazole 200 MG tablet Commonly known as: DIFLUCAN hydrocortisone 2.5 % cream Allergies Allergen Reactions Celecoxib GI Bleeding Hydrocodone Hives, Itching, Swelling and Other (See Comments) Abdominal pain, difficulty swallowing Cipro [Ciprofloxacin Hcl] Itching Dexamethasone Other (See Comments) Off balance Gabapentin Swelling Swelling in legs Levofloxacin Other (See Comments) Shakes Nitrofurantoin Other (See Comments) Swelling all over Nortriptyline Swelling Poison [place] Extract Hives, Itching, Swelling and Rash Poison oak/poison sabrina Repatha [Evolocumab] Other (See Comments) Everything it had listed Wound Dressing Adhesive Itching and Swelling Discharge Disposition: Home or Self Care Diet: Hospital: Diet Order Procedures Diet: Regular/House, Cardiac; Healthy Heart (2-3 Na+); Fluid Consistency: Thin (IDDSI 0) Standing Status: Standing Number of Occurrences: 1 Diets:: Regular/House Diets:: Cardiac Cardiac Diet:: Healthy Heart (2-3 Na+) Fluid Consistency:: Thin (IDDSI 0) Activity: CODE STATUS: Code Status and Medical Interventions: CPR (Attempt to Resuscitate); Full Support Ordered at: 11/13/24 0201 Code Status (Patient has no pulse and is not breathing): CPR (Attempt to Resuscitate) Medical Interventions (Patient has pulse or is breathing): Full Support Future Appointments Date Time Provider Department Center 11/26/2024 11:00 AM Dina Solano APRN [facility] None Additional Instructions for the Follow-ups that You Need to Schedule Discharge Follow-up with PCP As directed Currently Documented PCP: Sandra Orozco APRN PCP Follow Up Details: 1 week Discharge Follow-up with Specialty: Dr. Kirk ([facility]) 1 week As directed Specialty: Dr. Kirk ([facility]) 1 week Discharge Follow-up with Specialty: regular registered travel nurse (2 weeks or 1st available) As directed Specialty: regular registered travel nurse (2 weeks or 1st available) Vasu Luke MD 11/14/24 Time Spent on Discharge: I spent 35 minutes on this discharge activity which included: [id number]-[id number] with the patient, reviewing the data in the system, coordination of the care with the nursing staff as well as consultants, documentation, and entering orders. * Libertad Urbano, PT - 11/14/2024 7:40 AM EDT Patient Name: Casi Cruz : 1960 Today's Date: 11/14/2024 Admit Date: 11/12/2024 Visit Dx: ICD-10-CM ICD-9-CM 1. Referred by health direct support professional caregiver Z02.89 V68.89 2. Dyspnea on exertion R06.09 786.09 3. Chronic respiratory failure with hypoxia, on home O2 therapy J96.11 518.83 Z99.81 799.02 V46.2 4. SMOOTH (obstructive sleep apnea) G47.33 327.23 5. Elevated troponin R79.89 790.6 6. Moderate aortic valve regurgitation I35.1 424.1 Patient Active Problem List Diagnosis Moderate aortic valve regurgitation Dyspnea on exertion Hyperlipidemia LDL goal <55 Chronic venous insufficiency of lower extremity Elevated lipoprotein(a) Paroxysmal atrial fibrillation Peripheral arterial disease History of CVA (cerebrovascular accident) Chronic respiratory failure with hypoxia, on home O2 therapy Shortness of breath Respiratory failure with hypoxia Edema SMOOTH (obstructive sleep apnea) Anemia Stage 3a chronic kidney disease Elevated troponin Pyuria COPD (chronic obstructive pulmonary disease) GERD without esophagitis Anxiety associated with depression Primary hypertension Past Medical History: Diagnosis Date Anemia 11/13/2024 Anxiety associated with depression 11/13/2024 Aortic insufficiency MODERATE BY ECHO Aortic regurgitation MODERATE BY [facility] ECHO Arthritis Asthma Chronic respiratory failure with hypoxia, on home O2 therapy 08/12/2024 Chronic venous insufficiency CKD (chronic kidney disease) COPD (chronic obstructive pulmonary disease) Gastroesophageal reflux GERD with apnea GERD without esophagitis 11/13/2024 Heart murmur History of CVA (cerebrovascular accident) 07/16/2024 Hyperlipidemia LDL goal <55 05/09/2024 Mitral regurgitation MILD TO MODERATE BY ECHO SMOOTH (obstructive sleep apnea) 11/13/2024 Paroxysmal atrial fibrillation 07/16/2024 Primary hypertension 11/13/2024 Seizures Sleep apnea Stage 3a chronic kidney disease 11/13/2024 Stroke TIA (transient ischemic attack) Tricuspid regurgitation MILD BY ECHO Past Surgical History: Procedure Laterality Date CATARACT EXTRACTION Bilateral 11/2020 OTHER SURGICAL HISTORY 01/22/2023 AA with runoff#1- [facility] ERES/IOP: CLAUDICATION OF LLE. NORMAL AA W/RO OTHER SURGICAL HISTORY LOOP RECORDER EXPLANTATION: 05/19/21- EXPLANT- DR. KIRK; LOOP RECORDER PLACEMENT: 11/06/2018- AE. LOOP RECORDER SERIAL #[id number] SINUS SURGERY General Information Row Name 11/14/24 0740 Physical Therapy Time and Intention Document Type evaluation;discharge evaluation/summary - Mode of Treatment physical therapy - Row Name 11/14/24 0740 General Information Patient Profile Reviewed yes - Prior Level of Function independent:;gait;transfer;bed mobility - Existing Precautions/Restrictions oxygen therapy device and L/min - Barriers to Rehab none identified - Row Name 11/14/24 0740 Living Environment Current Living Arrangements home - People in Home alone - Row Name 11/14/24 0740 Home Main Entrance Number of Stairs, Main Entrance one -LS Stair Railings, Main Entrance railings safe and in good condition - Row Name 11/14/24 0740 Stairs Within Home, Primary Number of Stairs, Within Home, Primary none -LS Row Name 11/14/24 0740 Cognition Orientation Status (Cognition) oriented x 4 - User Tierney (r) = Recorded By, (t) = Taken By, (c) = Cosigned By Initials Name Provider Type Libertad Moseley, PT Physical Therapist Mobility Row Name 11/14/24 0721 Bed Mobility Bed Mobility supine-sit -LS Supine-Sit [place] (Bed Mobility) independent -LS Comment, (Bed Mobility) Pt transitioned supine to sit indep on flat bed surface without a rail. PerPT's clinical judgement, pt would be indep sit to supine as well. -LS Row Name 11/14/24 0740 Sit-Stand Transfer Sit-Stand [place] (Transfers) independent -LS Comment, (Sit-Stand Transfer) indep without AD -LS Row Name 11/14/24 0740 Gait/Stairs (Locomotion) [place] Level (Gait) independent -LS Patient was able to Ambulate yes -LS Distance in Feet (Gait) 220 -LS Comment, (Gait/Stairs) step-through gait pattern. no LOB. -LS User Tierney (r) = Recorded By, (t) = Taken By, (c) = Cosigned By Initials Name Provider Type Libertad Moseley, TOAN Physical Therapist Obj/Interventions Row Name 11/14/24 0740 Range of Motion Comprehensive General Range of Motion bilateral lower extremity ROM WFL - Row Name 11/14/24 0740 Strength Comprehensive (MMT) Comment, General Manual Muscle Testing (MMT) Assessment B hip flexors, knee extensors, ankle dorsiflexors 5/5 - Row Name 11/14/24 0740 Balance Static Standing Balance independent -LS Dynamic Standing Balance independent -LS Position/Device Used, Standing Balance unsupported -LS Balance Interventions standing;sit to stand;weight shifting activity -LS User Tierney (r) = Recorded By, (t) = Taken By, (c) = Cosigned By Initials Name Provider Type Libertad Moseley, PT Physical Therapist Goals/Plan No documentation. Clinical Impression Row Name 11/14/24 0740 Pain Pretreatment Pain Rating 0/10 - no pain -LS Posttreatment Pain Rating 0/10 - no pain -LS Row Name 11/14/24 0740 Plan of Care Review Plan of Care Reviewed With patient -LS Outcome Evaluation Pt is indep with mobility. She has good BLE strength and good balance. Skilled PT services are not indicated; this was discussed and agreed upon with patient. Discharge PT., -LS Row Name 11/14/24 0740 Therapy Assessment/Plan (PT) Criteria for Skilled Interventions Met (PT) no;no problems identified which require skilled intervention -LS Therapy Frequency (PT) evaluation only -LS Row Name 11/14/24 0740 Positioning and Restraints Pre-Treatment Position in bed -LS Post Treatment Position chair -LS In Bed notified nsg;sitting;call light within reach -LS User Tierney (r) = Recorded By, (t) = Taken By, (c) = Cosigned By Initials Name Provider Type Libertad Moseley, PT Physical Therapist Outcome Measures Row Name 11/14/24 0740 How much help from another person do you currently need... Turning from your back to your side while in flat bed without using bedrails? 4 -LS Moving from lying on back to sitting on the side of a flat bed without bedrails? 4 -LS Moving to and from a bed to a chair (including a wheelchair)? 4 -LS Standing up from a chair using your arms (e.g., wheelchair, bedside chair)? 4 -LS Climbing 3-5 steps with a railing? 4 -LS To walk in hospital room? 4 -LS AM-PAC 6 Clicks Score (PT) 24 -LS Highest Level of Mobility Goal Walk 250 Feet or More - 8 - Row Name 11/14/24 0740 Functional Assessment Outcome Measure Options AM-PAC 6 Clicks Basic Mobility (PT) - User Tierney (r) = Recorded By, (t) = Taken By, (c) = Cosigned By Initials Name Provider Type Libertad Moseley, PT Physical Therapist Physical Therapy Education Title: PT OT [facility] [employer] Therapies (In Progress) Topic: Physical Therapy (Resolved) Point: Home exercise program (Resolved) Learning Progress Summary Patient Acceptance, E, VU by at 11/14/2024 0740 Comment: Benefits of amb within tolerance User Tierney Initials Effective Dates Name Provider Type Discipline 09/18/22 - Libertad Urbano, PT Physical Therapist PT PT Recommendation and Plan Recommended discharge disposition is based on the functional assessment performed by PT/OT/Speech therapy (as applicable) and may not reflect the medical necessity determined by your provider or services covered by an individual patient's insurance plan or patient resource. Therapy Frequency (PT): evaluation only Outcome Evaluation: Pt is indep with mobility. She has good BLE strength and good balance. Skilled PT services are not indicated; this was discussed and agreed upon with patient. Discharge PT., Time Calculation: PT Evaluation Complexity History, PT Evaluation Complexity: 3 or more personal factors and/or comorbidities Examination of Body Systems (PT Eval Complexity): total of 4 or more elements Clinical Presentation (PT Evaluation Complexity): stable Clinical Decision Making (PT Evaluation Complexity): low complexity Overall Complexity (PT Evaluation Complexity): low complexity PT Charges Row Name 11/14/24 0740 Time Calculation Start Time 0740 -LS PT Received On 11/14/24 -LS Untimed Charges PT Eval/Re-eval Minutes 47 -LS Total Minutes Untimed Charges Total Minutes 47 -LS Total Minutes 47 -LS User Tierney (r) = Recorded By, (t) = Taken By, (c) = Cosigned By Initials Name Provider Type Libertad Moseley, PT Physical Therapist Therapy Charges for Today Code Description Service Date Service Provider Modifiers Qty [id number] HC PT EVAL LOW COMPLEXITY 4 11/14/2024 Libertad Urbano, PT GP 1 PT G-Codes Outcome Measure Options: AM-PAC 6 Clicks Basic Mobility (PT) AM-PAC 6 Clicks Score (PT): 24 AM-PAC 6 Clicks Score (OT): 24 PT Discharge Summary Anticipated Discharge Disposition (PT): home Reason for Discharge: Independent Libertad Urbano, PT 11/14/2024 * Che Velazquez, OT - 11/13/2024 1:05 PM EDT Acute Care - Occupational Therapy Discharge [facility] Patient Name: Casi Cruz : 1960 Today's Date: 11/13/2024 Admit Date: 11/12/2024 Visit Dx: ICD-10-CM ICD-9-CM 1. Referred by health direct support professional caregiver Z02.89 V68.89 2. Dyspnea on exertion R06.09 786.09 3. Chronic respiratory failure with hypoxia, on home O2 therapy J96.11 518.83 Z99.81 799.02 V46.2 4. SMOOTH (obstructive sleep apnea) G47.33 327.23 5. Elevated troponin R79.89 790.6 6. Moderate aortic valve regurgitation I35.1 424.1 Patient Active Problem List Diagnosis Moderate aortic valve regurgitation Dyspnea on exertion Hyperlipidemia LDL goal <55 Chronic venous insufficiency of lower extremity Elevated lipoprotein(a) Paroxysmal atrial fibrillation Peripheral arterial disease History of CVA (cerebrovascular accident) Chronic respiratory failure with hypoxia, on home O2 therapy Shortness of breath Respiratory failure with hypoxia Edema SMOOTH (obstructive sleep apnea) Anemia Stage 3a chronic kidney disease Elevated troponin Pyuria COPD (chronic obstructive pulmonary disease) GERD without esophagitis Anxiety associated with depression Past Medical History: Diagnosis Date Aortic insufficiency MODERATE BY ECHO Aortic regurgitation MODERATE BY [facility] ECHO Arthritis Asthma Chronic venous insufficiency CKD (chronic kidney disease) COPD (chronic obstructive pulmonary disease) Gastroesophageal reflux GERD with apnea Heart murmur Mitral regurgitation MILD TO MODERATE BY ECHO Seizures Sleep apnea Stroke TIA (transient ischemic attack) Tricuspid regurgitation MILD BY ECHO Past Surgical History: Procedure Laterality Date CATARACT EXTRACTION Bilateral 11/2020 OTHER SURGICAL HISTORY 01/22/2023 AA with runoff#1- [facility] ERES/IOP: CLAUDICATION OF LLE. NORMAL AA W/RO OTHER SURGICAL HISTORY LOOP RECORDER EXPLANTATION: 05/19/21- EXPLANT- DR. KIRK; LOOP RECORDER PLACEMENT: 11/06/2018- AE. LOOP RECORDER SERIAL #[id number] SINUS SURGERY General Information Row Name 11/13/24 1420 OT Time and Intention Document Type discharge evaluation/summary -AN Mode of Treatment occupational therapy -AN Row Name 11/13/24 142 General Information Patient Profile Reviewed yes -AN Prior Level of Function independent:;all household mobility;gait;community mobility;ADL's -AN Existing Precautions/Restrictions no known precautions/restrictions -AN Barriers to Rehab none identified -AN Row Name 11/13/24 142 Living Environment Current Living Arrangements home -AN People in Home spouse;other relative(s) -AN Row Name 11/13/24 142 Home Main Entrance Number of Stairs, Main Entrance two -AN Stair Railings, Main Entrance railings safe and in good condition -AN Row Name 11/13/24 142 Stairs Within Home, Primary Number of Stairs, Within Home, Primary none -AN Row Name 11/13/24 142 Cognition Orientation Status (Cognition) oriented x 4 -AN Row Name 11/13/24 142 Safety Issues/Impairments Affecting Functional Mobility Safety Issues Affecting Function (Mobility) safety precaution awareness;safety precautions follow-through/compliance;impulsivity -AN User Tierney (r) = Recorded By, (t) = Taken By, (c) = Cosigned By Initials Name Provider Type AN Che Velazquez OT Occupational Therapist Mobility/ADL's Row Name 11/13/24 142 Bed Mobility Bed Mobility [id number] -AN Dhwzpq-Fke-Nxcbyf [place] (Bed Mobility) independent -AN [facility] 11/13/24 142 Transfers Transfers sit-stand transfer;stand-sit transfer -AN [facility] 11/13/24 142 Sit-Stand Transfer Sit-Stand [place] (Transfers) supervision -AN [facility] 11/13/24 142 Stand-Sit Transfer Stand-Sit [place] (Transfers) supervision -AN [facility] 11/13/24 142 Functional Mobility Functional Mobility- Ind. Level supervision required -AN [facility] 11/13/24 142 Activities of Daily Living BADL Assessment/Intervention lower body dressing;upper body dressing -AN [facility] 11/13/24 142 Lower Body Dressing Assessment/Training [place] Level (Lower Body Dressing) don;socks;independent -AN Position (Lower Body Dressing) edge of bed sitting -AN [facility] 11/13/241421 Upper Body Dressing Assessment/Training [place] Level (Upper Body Dressing) don;pajama/robe;independent -AN Position (Upper Body Dressing) edge of bed sitting -AN User Tierney (r) = Recorded By, (t) = Taken By, (c) = Cosigned By Initials Name Provider Type Che Poole OT Occupational Therapist Obj/Interventions [facility] Name 11/13/24 142 Sensory Assessment (Somatosensory) Sensory Assessment (Somatosensory) right UE -AN Sensory Subjective Reports numbness -AN Sensory Assessment hx of nerve damage -AN [facility] 11/13/24 142 Vision Assessment/Intervention Visual Impairment/Limitations WFL -AN [facility] 11/13/24 142 Range of Motion Comprehensive General Range of Motion no range of motion deficits identified -AN [facility] 11/13/24 142 Strength Comprehensive (MMT) General Manual Muscle Testing (MMT) Assessment no strength deficits identified -AN [facility] 11/13/24 142 Balance Balance Assessment sitting static balance;sit to stand dynamic balance;sitting dynamic balance;standing static balance;standing dynamic balance -AN Static Sitting Balance independent -AN Dynamic Sitting Balance independent -AN Position, Sitting Balance unsupported -AN Sit to Stand Dynamic Balance supervision -AN Static Standing Balance supervision -AN Dynamic Standing Balance supervision -AN User Tierney (r) = Recorded By, (t) = Taken By, (c) = Cosigned By Initials Name Provider Type Che Poole OT Occupational Therapist Goals/Plan No documentation. Clinical Impression Row Name 11/13/24 142 Pain Assessment Pretreatment Pain Rating 0/10 - no pain -AN Posttreatment Pain Rating 0/10 - no pain -AN [facility] Name 11/13/241425 Plan of Care Review Plan of Care Reviewed With patient -AN Progress no change -AN Outcome Evaluation Pt presents at her functional baseline with all ADLs and mobility at this time. No skilled OT services warranted. OT will dc. -AN Row Name 11/13/241425 Therapy Assessment/Plan (OT) Criteria for Skilled Therapeutic Interventions Met (OT) no problems identified which require skilled intervention -AN Therapy Frequency (OT) evaluation only -AN Row Name 11/13/241425 Therapy Plan Review/Discharge Plan (OT) Anticipated Discharge Disposition (OT) home -AN [facility] Name 11/13/241425 Vital Signs Pre SpO2 (%) 95 -AN O2 Delivery Pre Treatment room air -AN O2 Delivery Intra Treatment room air -AN Post SpO2 (%) 95 -AN O2 Delivery Post Treatment room air -AN Pre Patient Position Supine -AN Intra Patient Position Standing -AN Post Patient Position Supine -AN [facility] 11/13/241425 Positioning and Restraints Pre-Treatment Position in bed -AN Post Treatment Position bed -AN In Bed notified nsg;supine;call light within reach;encouraged to call for assist;exit alarm on;siderails up x2 -AN User Tierney (r) = Recorded By, (t) = Taken By, (c) = Cosigned By Initials Name Provider Type AN Che Velazquez OT Occupational Therapist Outcome Measures Row Name 11/13/24 142 How much help from another is currently needed... Putting on and taking off regular lower body clothing? 4 -AN Bathing (including washing, rinsing, and drying) 4 -AN Toileting (which includes using toilet bed miles or urinal) 4 -AN Putting on and taking off regular upper body clothing 4 -AN Taking care of personal grooming (such as brushing teeth) 4 -AN Eating meals 4 -AN AM-PAC 6 Clicks Score (OT) 24 -AN Row Name 11/13/24 0251 11/13/24 0248 How much help from another person do you currently need... Turning from your back to your side while in flat bed without using bedrails? 4 -CY 4 -CY Moving from lying on back to sitting on the side of a flat bed without bedrails? 4 -CY 4 -CY Moving to and from a bed to a chair (including a wheelchair)? 4 -CY 4 -CY Standing up from a chair using your arms (e.g., wheelchair, bedside chair)? 4 - CY 4 -CY Climbing 3-5 steps with a railing? 4 -CY 4 -CY To walk in hospital room? 4 -CY 4 -CY AM-PAC 6 Clicks Score (PT) 24 -CY 24 -CY Row Name 11/13/24 1427 Functional Assessment Outcome Measure Options AM-PAC 6 Clicks Daily Activity (OT) -AN User Tierney (r) = Recorded By, (t) = Taken By, (c) = Cosigned By Initials Name Provider Type Vale Levy, RN Registered Nurse Che Poole OT Occupational Therapist Occupational Therapy Education Title: PT OT [employer]ER Therapies (In Progress) Topic: Occupational Therapy (In Progress) Point: ADL training (Done) Learning Progress Summary Patient Acceptance, E, VU by AN at 11/13/2024 142 Point: Precautions (Done) Learning Progress Summary Patient Acceptance, E, VU by AN at 11/13/20241427 Point: Body mechanics (Done) Learning Progress Summary Patient Acceptance, E, VU by AN at 11/13/20241427 User Tierney Initials Effective Dates Name Provider Type Discipline AN 11/29/20 - Che Velazquez OT Occupational Therapist OT OT Recommendation and Plan Recommended discharge disposition is based on the functional assessment performed by PT/OT/Speech therapy (as applicable) and may not reflect the medical necessity determined by your provider or services covered by an individual patient's insurance plan or patient resource. Therapy Frequency (OT): evaluation only Plan of Care Review Plan of Care Reviewed With: patient Progress: no change Outcome Evaluation: Pt presents at her functional baseline with all ADLs and mobility at this time.No skilled OT services warranted. OT will dc. Plan of Care Reviewed With: patient Outcome Evaluation: Pt presents at her functional baseline with all ADLs and mobility at this time.No skilled OT services warranted. OT will dc. Time Calculation: Evaluation Complexity (OT) Review Occupational Profile/Medical/Therapy History Complexity: brief/low complexity Assessment, Occupational Performance/Identification of Deficit Complexity: 1-3 performance deficits Clinical Decision Making Complexity (OT): problem focused assessment/low complexity Overall Complexity of Evaluation (OT): low complexity Time Calculation- OT Row Name 11/13/24 1429 Time Calculation- OT OT Start Time 1305 -AN OT Received On 11/13/24 -AN Untimed Charges OT Eval/Re-eval Minutes 35 -AN Total Minutes Untimed Charges Total Minutes 35 -AN Total Minutes 35 -AN User Tierney (r) = Recorded By, (t) = Taken By, (c) = Cosigned By Initials Name Provider Type Che Poole OT Occupational Therapist Therapy Charges for Today Code Description Service Date Service Provider Modifiers Qty [id number] HC OT EVAL LOW COMPLEXITY 3 11/13/2024 Che Velazquez OT GO 1 OT Discharge Summary Anticipated Discharge Disposition (OT): home Reason for Discharge: Independent Discharge Destination: Home Che Velazquez OT 11/13/2024 documented in this encounter Discharge Instructions * Attachments The following attachments cannot be sent through Care Everywhere. * Heart Failure and Exercise: What to Know (Kittitian) * Prednisone Tablets (Kittitian) documented in this encounter Medications at Time of Discharge bisoprolol (ZEBeta) 5 MG tablet Take 1 tablet by mouth Daily. budesonide (PULMICORT) 0.5 MG/2ML nebulizer solution Take 2 mL by nebulization Daily. bumetanide (BUMEX) 1 MG tablet Take 1 tablet by mouth Daily. dexlansoprazole (Dexilant) 60 MG capsule Take 1 capsule by mouth Daily. dicyclomine (BENTYL) 10 MG capsule Take 1 capsule by mouth 4 (Four) Times a Day Before Meals & at Bedtime. HYDROcodone-acet aminophen (NORCO) 10-325 MG per tablet Take 1 tablet by mouth Every 4 (Four) Hours As Needed. levocetirizine (XYZAL) 5 MG tablet Take 1 tablet by mouth Daily. montelukast (SINGULAIR) 10 MG tablet Take 1 tablet by mouth Daily. PHARMACY MEDS TO BED CONSULT Use Daily. 11/14/2024 potassium chloride 10 MEQ CR tablet pramipexole (MIRAPEX) 1.5 MG tablet 3 (Three) Times a Day. spironolactone (ALDACTONE) 25 MG tablet Take 1 tablet by mouth Daily. tiZANidine (ZANAFLEX) 4 MG tablet Take 1 tablet by mouth Every 6 (Six) Hours As Needed. triamcinolone (KENALOG) 0.1 % cream Apply 1 Application topically to the appropriate area as directed 2 (Two) Times a Day. venlafaxine XR (EFFEXOR-XR) 150 MG 24 hr capsule Ventolin HFA 108 (90 Base) MCG/ACT inhaler Inhale 2 puffs every 4 hours by inhalation route as directed. Xarelto 15 MG tablet Take 1 tablet by mouth Daily With Dinner. 90 tablet 3 08/28/2024 predniSONE (DELTASONE) 20 MG tablet Take 2 tablets by mouth Daily for 3 doses. 6 tablet 11/14/2024 4:15 PM EDT 11/15/2024 5 documented as of this encounter Progress Notes * Christy Kirk MD - 11/14/2024 12:18 PM EDT Images from the original note were not included. Cardiology Progress Note Date:11/14/24 Subjective:Feels great, SOB and led edema resolved. Physical Exam Vitals and nursing note reviewed. Exam conducted with a ios software engineer present. HENT: Mouth/Throat: Mouth: Mucous membranes are moist. Pharynx: Oropharynx is clear. Neck: Vascular: No carotid bruit. Cardiovascular: Rate and Rhythm: Normal rate and regular rhythm. Pulses: Normal pulses. Heart sounds: Normal heart sounds. No murmur heard. No friction rub. No gallop. Comments: No JVD Pulmonary: Effort: Pulmonary effort is normal. Breath sounds: Normal breath sounds. Skin: General: Skin is warm and dry. Capillary Refill: Capillary refill takes more than 3 seconds. Neurological: General: No focal deficit present. Mental Status: She is alert. Psychiatric: Mood and Affect: Mood normal. Labs: Results from last 7 days Lab Units 11/12/24 1916 11/12/24 1717 PROBNP pg/mL -- 247.0 HSTROP T ng/L 16* 17* Sodium Sodium Date Value Ref Range Status 11/13/2024 143 136 - 145 mmol/L Final 11/12/2024 139 136 - 145 mmol/L Final Potassium Potassium Date Value Ref Range Status 11/13/2024 3.8 3.5 - 5.2 mmol/L Final 11/12/2024 4.4 3.5 - 5.2 mmol/L Final Chloride Chloride Date Value Ref Range Status 11/13/2024 102 98 - 107 mmol/L Final 11/12/2024 101 98 - 107 mmol/L Final Bicarbonate No results found for: PLASMABICARB BUN BUN Date Value Ref Range Status 11/13/2024 19.7 8.0 - 23.0 mg/dL Final 11/12/2024 24.7 (H) 8.0 - 23.0 mg/dL Final Creatinine Creatinine Date Value Ref Range Status 11/13/2024 0.93 0.57 - 1.00 mg/dL Final 11/12/2024 1.06 (H) 0.57 - 1.00 mg/dL Final Calcium Calcium Date Value Ref Range Status 11/13/2024 8.6 8.6 - 10.5 mg/dL Final 11/12/2024 9.1 8.6 - 10.5 mg/dL Final Glucose No components found for: GLUCOSE.* eGFR Estimated Glomerular Filtration Rate: 67.9 mL/min/1.73m2 (by CKD-EPI based on SCr of 0.93 mg/dL). Urinalysis Brief Urine Lab Results (Last result in the past 365 days) Color Clarity Blood Leuk Est Nitrite Protein CREAT Urine HCG 11/12/24 1920 276.6 11/12/24 1920 Yellow Clear Negative Small (1+) Negative Trace Lab Results Component Value Date CREATININEUR 276.6 11/12/2024 NAUR <20 11/12/2024 Assessment & Plan 1-acute on chronic hypoxic respiratory failure-resolved. -55-[id number]-[id number] history of smoking-stopped last year -Likely COPD exacerbation as chest x-ray and proBNP do not support heart failure. -2 D Echocardiogram- Nl EF 65%, nl diastolic function, aortic valve sclerosis without stenosis.. -Pulmonary consult appreciated. 2-chronic venous insufficiency of the lower extremities -SP bilateral greater saphenous ablation. -Venous duplex-no DVT Rec- -30 mm/hg knee high compression stockings. -Leg elevation x 30 minutes 3 times daily. -Increase your walking schedule and distance covered. -Weight loss diet. 3-mild to moderate aortic insufficiency . -2D echo pending. 4- obesity Recommend- Weight loss diet and exercise program will consider Carol as an outpatient. The patient can be discharged home on current medications. Clinic FU with me in 1 week. Christy Kirk MD 11/14/24 12:18 EDT * Mel Palma DO - 11/13/2024 12:25 PM EDT Images from the original note were not included. [facility] Medicine Services ADMISSION FOLLOW-UP NOTE Patient admitted after midnight, H&P by my partner performed earlier on today's date reviewed. Interim findings, labs, and charting also reviewed. [facility] Hospital Problem List has been managed and updated to include any new diagnoses: Active Hospital Problems Diagnosis POA Respiratory failure with hypoxia [J96.91] Yes Edema [R60.9] Yes SMOOTH (obstructive sleep apnea) [G47.33] Yes Anemia [D64.9] Yes Stage 3a chronic kidney disease [N18.31] Yes Elevated troponin [R79.89] Yes Pyuria [R82.81] Yes COPD (chronic obstructive pulmonary disease) [J44.9] Yes GERD without esophagitis [K21.9] Yes Anxiety associated with depression [F41.8] Yes Shortness of breath [R06.02] Yes Chronic respiratory failure with hypoxia, on home O2 therapy [J96.11, Z99.81] Not Applicable Paroxysmal atrial fibrillation [I48.0] Yes History of CVA (cerebrovascular accident) [Z86.73] Not Applicable Hyperlipidemia LDL goal <55 [E78.5] Yes Resolved Hospital Problems No resolved problems to display. ADDITIONAL PLAN: - detailed assessment and plan from admission reviewed Casi Cruz is a 64 y.o. female w/ a hx of COPD, chronic respiratory failure on ~1 liter during the day, SMOOTH on CPAP nightly, hx of tobacco use, HTN, HLD, PAF on Xarelto, PAD, PVD, hx of CVA/TIA, CKD Stage III, anemia who presented to the ED w/ c/o shortness of breath. Chronic respiratory failure w/ hypoxia Worsening Exertional Dyspnea LE edema Hx of COPD -baseline pt on 1 liter NC and CPAP nightly -noted to have ambulatory saturation of 83% on 2 liters in ED -CTA Chest unremarkable -continue routine Pulmicort, Xyzal, Singulair - continue PRN and scheduled nebs -venous duplex BLE pending, suspect chronic venous insufficiency -proBNP 247, not supportive of cardiac etiology for her symptoms -ECHO Pending -s/p Bumex 2mg IV given in ED, patient reports improvement in her swelling -Dr. Kirk following, feel symptoms more consistent with COPD PAF -continue Xarelto ROSE MARY -hemoglobin stable, anemia panel consistent with ROSE MARY and AofCD Pyuria -pt denies urinary symptoms, hold on further abx CKD Stage III - appears to be at baseline, monitor -pt does not currently follow w/ Nephrology SMOOTH -CPAP nightly GERD -continue PPI Anxiety Depression -continue Effexor Expected Discharge home Expected Discharge Date: 11/15/2024; Expected Discharge Time: Mel Palma DO 11/13/24 documented in this encounter H&P Notes * Aaliyah Jha APRN - 11/13/2024 1:32 AM EDT Images from the original note were not included. [facility] Medicine Services HISTORY AND PHYSICAL Patient Name: Casi Cruz : 1960 Primary Care Physician: Sandra Orozco APRN Date of admission: 11/12/2024 Subjective Subjective Chief Complaint: Shortness of breath HPI: Casi Cruz is a 64 y.o. female w/ a hx of COPD, chronic respiratory failure on ~1 liter during the day, SMOOTH on CPAP nightly, hx of tobacco use, HTN, HLD, PAF on Xarelto, PAD, PVD, hx of CVA/TIA, CKD Stage III, anemia who presented to the ED w/ c/o shortness of breath. Pt c/o progressively worsening dyspnea x ~2 weeks. Shortness of breath worse w/ exertion. Pt c/o progressively worsening generalized edema (hand, legs, feet). Pt also c/o a dry cough, orthopnea and fatigue. Pt denies known fever, chest pain, N/V/D, abdominal pain urinary symptoms. Pt follows w/ Pulmonology in [place]. Pt was seen for evaluation this week and told that her lungs were not the source of her dyspnea and to f/u w/ Cardiology. Pt was seen by Cardiology and sent to the ED for further evaluation. Pt evaluated in the ED. CTA Chest unremarkable. EKG stable, proBNP WNL, troponin 17, 16. Pt noted to be 83% on 2 liter NC. Pt admitted to the hospital medicine service for further evaluation. Review of Systems Constitutional: Positive for fatigue. Negative for chills and fever. HENT: Negative. Negative for congestion, postnasal drip, rhinorrhea, sinus pressure, sinus pain andtrouble swallowing. Eyes: Negative. Respiratory: Positive for cough and shortness of breath. Negative for chest tightness. Cardiovascular: Positive for leg swelling. Negative for chest pain and palpitations. Gastrointestinal: Negative. Negative for abdominal distention, abdominal pain, constipation, diarrhea, nausea and vomiting. Endocrine: Negative. Genitourinary: Negative. Negative for difficulty urinating, dysuria, flank pain, frequency and urgency. Musculoskeletal: Negative. Negative for arthralgias and myalgias. Skin: Negative. Negative for wound. Allergic/Immunologic: Negative. Negative for immunocompromised state. Neurological: Negative. Negative for dizziness, syncope, light-headedness and headaches. Hematological: Negative. Does not bruise/bleed easily. Psychiatric/Behavioral: Negative. Negative for confusion. All other systems reviewed and are negative. Personal History Past Medical History: Diagnosis Date Aortic insufficiency MODERATE BY ECHO Aortic regurgitation MODERATE BY [facility] ECHO Arthritis Asthma Chronic venous insufficiency CKD (chronic kidney disease) COPD (chronic obstructive pulmonary disease) Gastroesophageal reflux GERD with apnea Heart murmur Mitral regurgitation MILD TO MODERATE BY ECHO Seizures Sleep apnea Stroke TIA (transient ischemic attack) Tricuspid regurgitation MILD BY ECHO Past Surgical History: Procedure Laterality Date CATARACT EXTRACTION Bilateral 11/2020 OTHER SURGICAL HISTORY 01/22/2023 AA with runoff#1- [facility] ERES/IOP: CLAUDICATION OF LLE. NORMAL AA W/RO OTHER SURGICAL HISTORY LOOP RECORDER EXPLANTATION: 05/19/21- EXPLANT- DR. KIRK; LOOP RECORDER PLACEMENT: 11/06/2018- AE. LOOP RECORDER SERIAL #[id number] SINUS SURGERY Family History: family history includes Coronary artery disease in her mother; Heart attack in her mother; Hyperlipidemia in her father; Hypertension in her father. Social History: reports that she has quit smoking. Her smoking use included cigarettes. She has never used smokeless tobacco. She reports that she does not currently use alcohol. She reports that shedoes not use drugs. Social History Social History Narrative Not on file Medications: HYDROcodone-acetaminophen, albuterol sulfate HFA, bisoprolol, budesonide, bumetanide, clotrimazole,dexlansoprazole, dicyclomine, fluconazole, hydrocortisone, levocetirizine, montelukast, potassium chloride, pramipexole, rivaroxaban, spironolactone, tiZANidine, triamcinolone, and venlafaxine XR Allergies Allergen Reactions Celecoxib GI Bleeding Hydrocodone Hives, Itching, Swelling and Other (See Comments) Abdominal pain, difficulty swallowing Cipro [Ciprofloxacin Hcl] Itching Dexamethasone Other (See Comments) Off balance Gabapentin Swelling Swelling in legs Levofloxacin Other (See Comments) Shakes Nitrofurantoin Other (See Comments) Swelling all over Nortriptyline Swelling Poison [place] Extract Hives, Itching, Swelling and Rash Poison oak/poison sabrina Repatha [Evolocumab] Other (See Comments) Everything it had listed Wound Dressing Adhesive Itching and Swelling Objective Objective Vital Signs: Temp: [97.8 ??F (36.6 ??C)-98.1 ??F (36.7 ??C)] 97.8 ??F (36.6 ??C) Heart Rate: [69-96] 78 Resp: [16-20] 16 BP: (95-122)/(49-85) 95/49 Flow (L/min) (Oxygen Therapy): [2] 2 Physical Exam Constitutional: Awake, alert; non-toxic appearing Eyes: PERRLA, sclerae anicteric, no conjunctival injection HENT: NCAT, mucous membranes moist Neck: Supple, no thyromegaly, no lymphadenopathy, trachea midline Respiratory: Course/diminished throughout w/ faint rhonchi; increased respiratory effort w/ conversation/movement Cardiovascular: RRR, no murmurs, rubs, or gallops, RLE w/ trace edema, LLE w/ +1-2 pitting edema Gastrointestinal: Positive bowel sounds, soft, nontender, nondistended Musculoskeletal: Normal ROM bilaterally Psychiatric: Appropriate affect, cooperative Neurologic: Oriented x 3, strength symmetric in all extremities, speech clear Skin: No rashes, lesions or wounds Result Review: I have personally reviewed the results from the time of this admission to 11/13/2024 02:15 EDT and agree with these findings: [x] Laboratory list / accordion [] Microbiology [x] Radiology [x] EKG/Telemetry [] Cardiology/Vascular [] Pathology [x] Old records LAB RESULTS: Lab 11/12/24 1717 WBC 5.82 HEMOGLOBIN 9.0* HEMATOCRIT 32.5* PLATELETS 240 NEUTROS ABS 3.43 IMMATURE GRANS (ABS) 0.05 LYMPHS ABS 1.54 MONOS ABS 0.44 EOS ABS 0.32 MCV 75.1* LACTATE 1.6 D DIMER QUANT 10.36* Lab 11/12/24 1717 SODIUM 139 POTASSIUM 4.4 CHLORIDE 101 CO2 27.9 ANION GAP 10.1 BUN 24.7* CREATININE 1.06* EGFR 58.1* GLUCOSE 96 CALCIUM 9.1 MAGNESIUM 1.9 PHOSPHORUS 4.1 TSH 2.480 Lab 11/12/24 1717 TOTAL PROTEIN 6.4 ALBUMIN 4.0 GLOBULIN 2.4 ALT (SGPT) 15 AST (SGOT) 27 BILIRUBIN 0.2 ALK PHOS 113 LIPASE 20 Lab 11/12/24 1916 11/12/24 1717 PROBNP -- 247.0 HSTROP T 16* 17* Lab 11/12/24 2316 FIO2 28 CARBOXYHEMOGLOBIN (VENOUS) 1.7 Brief Urine Lab Results (Last result in the past 365 days) Color Clarity Blood Leuk Est Nitrite Protein CREAT Urine HCG 11/12/241919 Yellow Clear Negative Small (1+) Negative Trace Microbiology Results (last 10 days) Procedure Component Value - Date/Time COVID PRE-OP / PRE-PROCEDURE SCREENING ORDER (NO ISOLATION) - Swab, Nasopharynx [[id number]] (Normal) Collected: 11/12/241920 Lab Status: Final result Specimen: Swab from Nasopharynx Updated: 11/12/242023 Narrative: The following orders were created for panel order COVID PRE-OP / PRE-PROCEDURE SCREENING ORDER (NO ISOLATION) - Swab, Nasopharynx. Procedure Abnormality Status --------- ------ COVID-19, FLU A/B, RSV P...[[id number]] Normal Final result Please view results for these tests on the individual orders. COVID-19, FLU A/B, RSV PCR 1 HR TAT - Swab, Nasopharynx [[id number]] (Normal) Collected: 11/12/24 192 Lab Status: Final result Specimen: Swab from Nasopharynx Updated: 11/12/242023 COVID19 Not Detected Influenza A PCR Not Detected Influenza B PCR Not Detected RSV, PCR Not Detected CT Angiogram Chest Pulmonary Embolism Result Date: 11/12/2024 CT ANGIOGRAM CHEST PULMONARY EMBOLISM Date of Exam: 11/12/2024 7:35 PM EDT Indication: Shortness of Breath. Comparison: None available. Technique: Axial CT images were obtained of the chest after the uneventful intravenous administration of iodinated contrast utilizing pulmonary embolism protocol. In addition, a 3-D volume rendered image was created for interpretation. Reconstructed coronal and sagittal images were also obtained. Automated exposure control and iterative construction methods were used. Findings: Pulmonary Arteries: Pulmonary artery is borderline enlarged. No evidence of pulmonary embolus Hilum and Mediastinum: No evidence of adenopathy. Heart size is normal. There is moderate coronary artery calcification. Lung Parenchyma and Pleura: There is moderate centrilobular emphysema. Central airways are patent there is atelectasis and scarring lingula and middle lobe. 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 Osseous structures: No aggressive focal lytic or sclerotic osseous lesions. Impression: No evidence of pulmonary embolus. No acute abnormality. Electronically Signed: Jed Machuca MD 11/12/2024 8:31 PM EDT Workstation ID: [id number] XR Chest 1 View Result Date: 11/12/2024 XR CHEST 1 VW Date of Exam: 11/12/2024 6:28 PM EDT Indication: SOA triage protocol. Comparison: 07/16/2024 Findings: Heart size at the upper limits of normal. Pulmonary vessels normal. Lungs are clear. No pleural effusion. No pneumothorax. Impression: Impression: 1. No acute cardiopulmonary disease. Electronically Signed: Arben Neely MD 11/12/2024 7:02 PM EDT Workstation ID: [id number] Assessment & Plan Assessment & Plan Respiratory failure with hypoxia Hyperlipidemia LDL goal <55 Paroxysmal atrial fibrillation History of CVA (cerebrovascular accident) Chronic respiratory failure with hypoxia, on home O2 therapy Shortness of breath Edema SMOOTH (obstructive sleep apnea) Anemia Stage 3a chronic kidney disease Elevated troponin Pyuria COPD (chronic obstructive pulmonary disease) GERD without esophagitis Anxiety associated with depression Casi Cruz is a 64 y.o. female w/ a hx of COPD, chronic respiratory failure on ~1 liter during the day, SMOOTH on CPAP nightly, hx of tobacco use, HTN, HLD, PAF on Xarelto, PAD, PVD, hx of CVA/TIA, CKD Stage III, anemia who presented to the ED w/ c/o shortness of breath. Chronic respiratory failure w/ hypoxia Elevated troponin Shortness of breath; exertional dyspnea Generalized edema Hx of PAF, HTN, HLD -pt c/o progressively worsening dyspnea, exertional dyspnea, generalized edema x ~2 weeks; evaluated by Pulmonary outpt this week and referred to Cardiology, seen by Cardiology and sent to ED -reports chronic LLE edema compared to RLE- but worse currently than baseline -baseline pt on 1 liter NC and CPAP nightly -noted to have ambulatory saturation of 83% on 2 liters in ED -currently 93% on 2 liters at rest -D.Dimer 10.36 (pt on Xarelto, denies missed doses) -CTA Chest unremarkable -venous duplex BLE pending -troponin 17, 16 -proBNP 247 -ECHO Pending -EKG stable -s/p Bumex 2mg IV given in ED; additional IV diuresis pending Cardiology recommendations -continue Zebeta, Aldactone -continue Xarelto -monitor I/Os; daily weights -pt/ot and case mgt consult -Cardiology consult this morning; known to Dr. Kirk (ED provider discussed case w/ Dr. Kirk- ECHO ordered) COPD Hx of tobacco use -pt on ~1 liter supplemental oxygen during the day at baseline (w/ CPAP nightly) -currently on 2 liters -CTA Chest unremarkable -continue routine Pulmicort, Xyzal, Singulair -prn and scheduled nebs -pt follows w/ Pulmonary in [place]- seen this week and referred to Cardiology Anemia -pt reports a hx of ROSE MARY -previous H/H 9.4/33.3 in 10/2023 -current H/H 32.5 -anemia panel pending -repeat CBC w/ am labs Pyuria -UA: small leuks, trace protein, 11-20 WBCs, no bacteria, 3-6 epi cells -urine cx pending -pt denies urinary symptoms -s/p Rocephin dose given in ED; will hold on further antibiotic pending urine cx results CKD Stage III -previous creatinine 1.07 w/ eGFR 58 in 10/2023 -creatinine 0.84 w/ eGFR 76.8 in 07/2024 -current creatinine 1.06 w/ eGFR 58.1 -urine studies pending -monitor closely -pt does not currently follow w/ Nephrology SMOOTH -CPAP nightly GERD -continue PPI Anxiety Depression -continue routine Effexor DVT prophylaxis: Xarelto CODE STATUS: Code Status (Patient has no pulse and is not breathing): CPR (Attempt to Resuscitate) Medical Interventions (Patient has pulse or is breathing): Full Support Expected Discharge Expected Discharge Date: 11/15/2024; Expected Discharge Time: Signature: Electronically signed by Aaliyah Jha APRN, 11/13/24, 2:15 AM EDT. Time spent: 55 minutes Cosigned by Domitila Villalobos MD at 11/13/2024 4:27 AM EDT Associated attestation - Domitila Villalobos MD - 11/13/2024 4:27 AM EDT I have reviewed this documentation and agree. The patient was seen independently by the APC. I was available for any questions or concerns. Electronically signed by Domitila Villalobos MD, 11/13/24, 4:27 AM EDT. documented in this encounter Consult Notes * Michele Sanchez MD - 11/13/2024 2:45 PM EDTAssociated Order(s): IP CONSULT TO PULMONOLOGY Pulmonary Consult LOS: 0 days Patient Care Team: Sandra Orozco APRN as PCP - General (Internal Medicine) Gregorio Mcgee MD as PCP - Family Medicine Christy Kirk MD as Consulting Physician (Cardiology) Dina Solano APRN as Nurse Practitioner (Cardiology) Chief Complaint Patient presents with Shortness of Breath Subjective 64 y.o. former smoker who quit about a year ago with history of emphysema/COPD, asthma, CKD, moderate aortic insufficiency, moderate mitral regurgitation, PAF on Xarelto, GERD, SMOOTH on CPAP and compliant, chronic hypoxemic respiratory failure on 1 L supplemental oxygen, CKD 3, HTN, HLD, admitted to the hospitalist service on 11/12/2024 with increasing dyspnea and lower extremity edema over 2 weeks duration. Patient apparently was seen by pulmonology in [place] and was told that her lungs were not the source of her dyspnea. Since admission she was seen by cardiology here who felt that her heartwas not the source of her dyspnea and that her lungs were the source of her dyspnea. proBNP was notelevated on admission. Initially, the patient was satting 83% on 2 L nasal cannula and was admittedto the hospitalist service for further evaluation. She had significant lower extremity edema and was aggressively diuresed. She is currently satting in the mid to upper 90s on 2 L. She does have a cough. Patient had a CT angiogram of the chest with no evidence of pulmonary embolism. She does have emphysema. There is no evidence of pneumonia. I reviewed the scans myself. Echocardiogram has been ordered but has not been completed yet at this point. Interval History: History taken from: Patient, chart PMH/FH/Social History were reviewed and updated appropriately in the electronic medical record. Past Medical History: Diagnosis Date Anemia 11/13/2024 Anxiety associated with depression 11/13/2024 Aortic insufficiency MODERATE BY ECHO Aortic regurgitation MODERATE BY [facility] ECHO Arthritis Asthma Chronic respiratory failure with hypoxia, on home O2 therapy 08/12/2024 Chronic venous insufficiency CKD (chronic kidney disease) COPD (chronic obstructive pulmonary disease) Gastroesophageal reflux GERD with apnea GERD without esophagitis 11/13/2024 Heart murmur History of CVA (cerebrovascular accident) 07/16/2024 Hyperlipidemia LDL goal <55 05/09/2024 Mitral regurgitation MILD TO MODERATE BY ECHO SMOOTH (obstructive sleep apnea) 11/13/2024 Paroxysmal atrial fibrillation 07/16/2024 Primary hypertension 11/13/2024 Seizures Sleep apnea Stage 3a chronic kidney disease 11/13/2024 Stroke TIA (transient ischemic attack) Tricuspid regurgitation MILD BY ECHO Past Surgical History: Procedure Laterality Date CATARACT EXTRACTION Bilateral 11/2020 OTHER SURGICAL HISTORY 01/22/2023 AA with runoff#1- [facility] ERES/IOP: CLAUDICATION OF LLE. NORMAL AA W/RO OTHER SURGICAL HISTORY LOOP RECORDER EXPLANTATION: 05/19/21- EXPLANT- DR. KIRK; LOOP RECORDER PLACEMENT: 11/06/2018- AE. LOOP RECORDER SERIAL #[id number] SINUS SURGERY Family History Problem Relation Age of Onset Coronary artery disease Mother Heart attack Mother Hyperlipidemia Father Hypertension Father Social History Socioeconomic History Marital status: Tobacco Use Smoking status: Former Types: Cigarettes Smokeless tobacco: Never Tobacco comments: Smoked since 1973 Vaping Use Vaping status: Never Used Substance and Sexual Activity Alcohol use: Not Currently Comment: former Drug use: Never Sexual activity: Defer Review of Systems: Review of 14 systems was completed with positives and pertinent negatives noted in the subjective section. All other systems reviewed and are negative. Objective Vital Signs Temp: [97.6 ??F (36.4 ??C)-98.6 ??F (37 ??C)] 98.1 ??F (36.7 ??C) Heart Rate: [66-96] 78 Resp: [16-18] 18 BP: (95-129)/(49-85) 103/57 No intake/output data recorded. Body mass index is 34.57 kg/m??. IV drips: Physical Exam: Constitutional: Alert, in no acute distress Head: Normocephalic, atraumatic Eyes: Lids and lashes normal, conjunctivae and sclerae normal. PER ENMT: Ears appear intact with no abnormalities noted Lips normal. Neck: Trachea midline, no JVD Lungs/Resp: Normal effort, patient does have volitional stridor when she closes her vocal cords andforces air out. When I had her stop this, she has some mild rales in the right midlung but is otherwise clear/slightly diminished diffusely. Heart/CV: Regular rhythm and normal rate, no murmur Abdomen/GI: Soft, nontender, nondistended : Deferred Extremities/MSK: No clubbing or cyanosis. 1+ bilateral lower extremity edema. Pulses: Pulses palpable and equal bilaterally Skin: No bleeding, bruising or rash Heme/Lymph: No cervical or supraclavicular adenopathy. Neurologic: Psychiatric: Moves all extremities with no obvious focal motor deficit. Cranial nerves 2 - 12 grossly intact Non-agitated, normal affect. The above physical exam findings were reviewed and reflect my exam findings as of today's exam. Electronically signed by: Michele Sanchez MD 11/13/24 18:31 EDT Results Review: I reviewed the patient's new clinical results. Results from last 7 days Lab Units 11/13/24 1207 11/12/24 1717 SODIUM mmol/L 143 139 POTASSIUM mmol/L 3.8 4.4 CHLORIDE mmol/L 102 101 CO2 mmol/L 31.1* 27.9 BUN mg/dL 19.7 24.7* CREATININE mg/dL 0.93 1.06* CALCIUM mg/dL 8.6 9.1 BILIRUBIN mg/dL -- 0.2 ALK PHOS U/L -- 113 ALT (SGPT) U/L -- 15 AST (SGOT) U/L -- 27 GLUCOSE mg/dL 100* 96 Results from last 7 days Lab Units 11/13/24 1207 11/12/24 1717 WBC 10*3/mm3 5.41 5.82 HEMOGLOBIN g/dL 8.1* 9.0* HEMATOCRIT % 29.1* 32.5* PLATELETS 10*3/mm3 227 240 Results from last 7 days Lab Units 11/13/24 1207 11/12/24 1717 MAGNESIUM mg/dL 1.9 1.9 PHOSPHORUS mg/dL -- 4.1 I reviewed the patient's new imaging including images and reports. Lower extremity duplex 11/13/2024: Interpretation Summary This study is negative for DVT of the right or left lower extremity. CTA chest 11/2024 reviewed. My interpretation is as noted in HPI. Radiologist's impression follows: IMPRESSION: No evidence of pulmonary embolus. No acute abnormality. Medication Review: bisoprolol, 5 mg, Oral, Daily budesonide, 0.5 mg, Nebulization, Daily - RT cetirizine, 10 mg, Oral, Daily dicyclomine, 10 mg, Oral, 4x Daily AC & at Bedtime ipratropium-albuterol, 3 mL, Nebulization, 4x Daily - RT montelukast, 10 mg, Oral, Daily pantoprazole, 40 mg, Oral, BID AC rivaroxaban, 15 mg, Oral, Daily With Dinner senna-docusate sodium, 2 tablet, Oral, BID sodium chloride, 10 mL, Intravenous, Q12H spironolactone, 25 mg, Oral, Daily venlafaxine XR, 150 mg, Oral, BID Assessment & Plan Respiratory failure with hypoxia Moderate aortic valve regurgitation Hyperlipidemia LDL goal <55 Paroxysmal atrial fibrillation History of CVA (cerebrovascular accident) Chronic respiratory failure with hypoxia, on home O2 therapy Shortness of breath Edema SMOOTH (obstructive sleep apnea) Anemia Stage 3a chronic kidney disease Elevated troponin Pyuria COPD (chronic obstructive pulmonary disease) GERD without esophagitis Anxiety associated with depression Primary hypertension 64 y.o. former smoker who quit about a year ago with history of emphysema/COPD, asthma, CKD, moderate aortic insufficiency, moderate mitral regurgitation, PAF on Xarelto, GERD, SMOOTH on CPAP and compliant, chronic hypoxemic respiratory failure on 1 L supplemental oxygen, CKD 3, HTN, HLD, admitted to the hospitalist service on 11/12/2024 with increasing dyspnea and lower extremity edema over 2 weeks duration. Patient apparently was seen by pulmonology in [place] and was told that her lungs were not the source of her dyspnea. Since admission she was seen by cardiology here who felt that her heartwas not the source of her dyspnea and that her lungs were the source of her dyspnea. proBNP was notelevated on admission. Initially, the patient was satting 83% on 2 L nasal cannula and was admittedto the hospitalist service for further evaluation. She had significant lower extremity edema and was aggressively diuresed. She is currently satting in the mid to upper 90s on 2 L. She does have a cough. Patient had a CT angiogram of the chest with no evidence of pulmonary embolism. She does have emphysema. There is no evidence of pneumonia. I reviewed the scans myself. Echocardiogram has been ordered but has not been completed yet at this point. At this point is unclear what caused the patient's decompensation from her baseline. What is clear is that she has improved with diuresis, antibiotic, and with continuation of her home COPD regimen of DuoNebs and budesonide. I do not see that she has been given systemic steroids to this point. She does report significant decrease in lower extremity edema along with her improvement in respiratory status. This suggests that fluid overload may have been contributing. It is also possible that she had a COPD exacerbation. We are awaiting an echocardiogram. She seems better compensated regardless. I do not have any PFT data available to review nor do I think PFTs in the acute setting here would be of much use. Plan: 1. For COPD-possible acute exacerbation: Currently on DuoNebs and budesonide, which home regimen. It would be reasonable to put her on budesonide and Yupelri while she was here and potentially continue these as an outpatient. I will go ahead and treat give her some steroids as well to cover the base of COPD exacerbation. 2. For volume overload/potential heart failure of some sort-possibly related to her known history of valvular heart disease and apparently significantly improved with diuresis. Will await echocardiogram. Cardiology is following. Creatinine has improved with diuresis. Ongoing diuresis as tolerated would be reasonable in light of her improvement and lower extremity edema. 3. For CKD 3: Creatinine improved with diuresis. 4. For anemia: Hemoglobin is 8 and this could be contributing to her dyspnea as well. Recommend further evaluation per primary team or appropriate guidance consultant. 5. For SMOOTH on CPAP: Continue CPAP. 6. For acute on chronic hypoxemic respiratory failure: Back to baseline oxygen requirement after diuresis. Continue supplemental oxygen. Wean as tolerated. Electronically signed by: Michele Sanchez MD 11/13/24 18:31 EDT *. Please note that portions of this note were completed with datatracker - a voice recognition program. * Christy Kirk MD - 11/13/2024 9:58 AM EDT Images from the original note were not included. Cardiology Consult / H&P Date: 11/12/2024 Reason for Consultation: Loss of breath cough and fatigue Chief complaint shortness of breath cough and fatigue. History of present illness: The patient is a very pleasant 64-year-old female who is well-known to our service for several years. She has history of COPD with greater than [id number] history of smoking. Quit 1 year ago. She encountered COVID several years ago followed by bilateral pulmonary atelectasis and chronic respiratory failure requiring home O2. She has mild to moderate aortic insufficiency on 2D echocardiogram from 2022 which was performed in [place]. Her last echo was over 2 years ago. In addition she has history of chronic venous insufficiency of the lower extremities status post bilateral greater saphenous vein ablation several years ago. Over the last several weeks she has been complaining of progressive fatigue 01/10 associated with worsening shortness of breath to the point that she can barelyget through the house. She has occasional sharp retrosternal pain associated with cough and deep breath as well as worsening shortness of breath. This is short lived and does not radiate. In addition noted worsening lower extremity swelling 01/10. She was seen by our nurse practitioner at the office yesterday and sent in for admission. In ED significant desaturations of oxygen which were noted upon minimal ambulation as well as wheezing. Chest x-ray was normal. Chest CTA was negative for pulmonary embolus. EKG showed normal sinus rhythm with no acute changes. The patient appears clinically better this morning with improvement in lower extremity edema following diuretics. Family history-negative for premature coronary artery disease Smoking history: Tobacco Use: Medium Risk (11/13/2024) Patient History Smoking Tobacco Use: Former Smokeless Tobacco Use: Never Passive Exposure: Not on file Review of systems Review of Systems Constitutional: Positive for activity change and fatigue. Respiratory: Positive for cough, choking and wheezing. Cardiovascular: Positive for leg swelling. Past Medical History Past Medical History: Diagnosis Date Aortic insufficiency MODERATE BY ECHO Aortic regurgitation MODERATE BY [facility] ECHO Arthritis Asthma Chronic venous insufficiency CKD (chronic kidney disease) COPD (chronic obstructive pulmonary disease) Gastroesophageal reflux GERD with apnea Heart murmur Mitral regurgitation MILD TO MODERATE BY ECHO Seizures Sleep apnea Stroke TIA (transient ischemic attack) Tricuspid regurgitation MILD BY ECHO , Past Surgical History: Procedure Laterality Date CATARACT EXTRACTION Bilateral 11/2020 OTHER SURGICAL HISTORY 01/22/2023 AA with runoff#1- [facility] ERES/IOP: CLAUDICATION OF LLE. NORMAL AA W/RO OTHER SURGICAL HISTORY LOOP RECORDER EXPLANTATION: 05/19/21- EXPLANT- DR. KIRK; LOOP RECORDER PLACEMENT: 11/06/2018- AE. LOOP RECORDER SERIAL #[id number] SINUS SURGERY , Family History Problem Relation Age of Onset Coronary artery disease Mother Heart attack Mother Hyperlipidemia Father Hypertension Father , and Allergies: Celecoxib, Hydrocodone, Cipro [ciprofloxacin hcl], Dexamethasone, Gabapentin, Levofloxacin, Nitrofurantoin, Nortriptyline, Poison oak extract, Repatha [evolocumab], and Wound dressing adhesive Physical Exam Vitals and nursing note reviewed. Exam conducted with a ios software engineer present. HENT: Mouth/Throat: Mouth: Mucous membranes are moist. Pharynx: Oropharynx is clear. Neck: Vascular: No carotid bruit. Cardiovascular: Rate and Rhythm: Normal rate and regular rhythm. Pulses: Normal pulses. Heart sounds: Normal heart sounds. No murmur heard. No friction rub. No gallop. Comments: No JVD Pulmonary: Effort: Pulmonary effort is normal. Breath sounds: Normal breath sounds. Musculoskeletal: Right lower leg: Edema present. Left lower leg: Edema present. Skin: General: Skin is warm and dry. Capillary Refill: Capillary refill takes more than 3 seconds. Neurological: General: No focal deficit present. Mental Status: She is alert. Psychiatric: Mood and Affect: Mood normal. Labs: Results from last 7 days Lab Units 11/12/24 1916 11/12/24 1717 PROBNP pg/mL -- 247.0 HSTROP T ng/L 16* 17* Sodium Sodium Date Value Ref Range Status 11/12/2024 139 136 - 145 mmol/L Final Potassium Potassium Date Value Ref Range Status 11/12/2024 4.4 3.5 - 5.2 mmol/L Final Chloride Chloride Date Value Ref Range Status 11/12/2024 101 98 - 107 mmol/L Final Bicarbonate No results found for: PLASMABICARB BUN BUN Date Value Ref Range Status 11/12/2024 24.7 (H) 8.0 - 23.0 mg/dL Final Creatinine Creatinine Date Value Ref Range Status 11/12/2024 1.06 (H) 0.57 - 1.00 mg/dL Final Calcium Calcium Date Value Ref Range Status 11/12/2024 9.1 8.6 - 10.5 mg/dL Final Glucose No components found for: GLUCOSE.* eGFR Estimated Glomerular Filtration Rate: 58.1 mL/min/1.73m2 (A) (by CKD-EPI based on SCr of 1.06 mg/dL (H)). Urinalysis Brief Urine Lab Results (Last result in the past 365 days) Color Clarity Blood Leuk Est Nitrite Protein CREAT Urine HCG 11/12/24 1920 276.6 11/12/24 1920 Yellow Clear Negative Small (1+) Negative Trace Lab Results Component Value Date CREATININEUR 276.6 11/12/2024 NAUR <20 11/12/2024 Assessment & Plan 1-acute on chronic hypoxic respiratory failure -[id number] history of smoking-stopped last year -Likely COPD exacerbation as chest x-ray and proBNP do not support heart failure. Recommend-2D echocardiogram-ordered. -Pulmonary consult. 2-chronic venous insufficiency of the lower extremities -SP bilateral greater saphenous ablation. Recommend-venous duplex-ordered. 3-mild to moderate aortic insufficiency . -2D echo pending. 4- obesity Recommend- Weight loss diet and exercise program will consider Wegovy as an outpatient. Will follow with you thank you Christy Kirk MD 11/13/24 09:58 EDT documented in this encounter Nursing Notes * Jill Altamirano RN - 11/14/2024 1:53 PM EDT Problem: Adult Inpatient Plan of Care Goal: Plan of Care Review 11/14/2024 135 by Jill Altamirano RN Outcome: Adequate for Care Transition 11/14/2024 1352 by Jill Altamirano RN Outcome: Progressing 11/14/2024 1351 by Jill Altamirano RN Outcome: Progressing Flowsheets (Taken 11/14/2024 0740 by Libertad Urbano, PT) Outcome Evaluation: Pt is indep with mobility. She has good BLE strength and good balance. Skilled PT services are not indicated this was discussed and agreed upon with patient. Discharge PT., Goal: Patient-Specific Goal (Individualized) 11/14/2024 135 by Jill Altamirano RN Outcome: Adequate for Care Transition 11/14/2024 1352 by Jill Altamirano, BERNICE Outcome: Progressing 11/14/2024 1351 by Jill Altamirano RN Outcome: Progressing Goal: Absence of Hospital-Acquired Illness or Injury 11/14/2024 1352 by Jill Altamirano RN Outcome: Adequate for Care Transition 11/14/2024 1352 by Jill Altamirano RN Outcome: Progressing 11/14/2024 1351 by Jill Altamirano RN Outcome: Progressing Intervention: Identify and Manage Fall Risk Recent Flowsheet Documentation Taken 11/14/2024 1200 by Jill Altamirano RN Safety Promotion/Fall Prevention: safety round/check completed Taken 11/14/2024 1019 by Jill Altamirano RN Safety Promotion/Fall Prevention: safety round/check completed Taken 11/14/2024 0800 by Jill Altamirano RN Safety Promotion/Fall Prevention: safety round/check completed Intervention: Prevent Skin Injury Recent Flowsheet Documentation Taken 11/14/2024 1200 by Jill Altamirano RN Body Position: position changed independently Taken 11/14/2024 1019 by Jill Altamirano RN Body Position: position changed independently Taken 11/14/2024 0800 by Jill Altamirano RN Body Position: position changed independently Skin Protection: incontinence pads utilized Intervention: Prevent Infection Recent Flowsheet Documentation Taken 11/14/2024 1200 by Jill Altamirano RN Infection Prevention: cohorting utilized environmental surveillance performed equipment surfaces disinfected hand hygiene promoted personal protective equipment utilized rest/sleep promoted Taken 11/14/2024 1019 by Jill Altamirano RN Infection Prevention: cohorting utilized environmental surveillance performed hand hygiene promoted equipment surfaces disinfected personal protective equipment utilized rest/sleep promoted single patient room provided Taken 11/14/2024 0800 by Jill Altamirano RN Infection Prevention: cohorting utilized environmental surveillance performed equipment surfaces disinfected hand hygiene promoted personal protective equipment utilized rest/sleep promoted Goal: Optimal Comfort and Wellbeing 11/14/2024 1352 by Jill Altamirano RN Outcome: Adequate for Care Transition 11/14/2024 1352 by Jill Altamirano RN Outcome: Progressing 11/14/2024 1351 by Jill Altamirano RN Outcome: Progressing Goal: Readiness for Transition of Care 11/14/2024 1352 by Jill Altamirano RN Outcome: Adequate for Care Transition 11/14/2024 1352 by Jill Altamirano RN Outcome: Progressing 11/14/2024 1351 by Jill Altamirano RN Outcome: Progressing Problem: Comorbidity Management Goal: Maintenance of COPD Symptom Control 11/14/2024 1352 by Jill Altamirano RN Outcome: Adequate for Care Transition 11/14/2024 1352 by Jill Altamirano RN Outcome: Progressing 11/14/2024 1351 by Jill Altamirano RN Outcome: Progressing Intervention: Maintain COPD (Chronic Obstructive Pulmonary Disease) Symptom Control Recent Flowsheet Documentation Taken 11/14/2024 1200 by Jill Altamirano RN Medication Review/Management: medications reviewed Taken 11/14/2024 1019 by Jill Altamirano RN Medication Review/Management: medications reviewed Taken 11/14/2024 0800 by Jill Altamirano RN Medication Review/Management: medications reviewed Problem: Noninvasive Ventilation Acute Goal: Effective Unassisted Ventilation and Oxygenation 11/14/2024 1352 by Jill Altamirano RN Outcome: Adequate for Care Transition 11/14/2024 1352 by Jill Altamirano RN Outcome: Progressing 11/14/2024 1351 by Jill Altamirano RN Outcome: Progressing Problem: Fall Injury Risk Goal: Absence of Fall and Fall-Related Injury 11/14/2024 1352 by Jill Altamirano RN Outcome: Adequate for Care Transition 11/14/2024 1352 by Jill Altamirano RN Outcome: Progressing 11/14/2024 1351 by Jill Altamirano RN Outcome: Progressing Intervention: Identify and Manage Contributors Recent Flowsheet Documentation Taken 11/14/2024 1200 by Jill Altamirano RN Medication Review/Management: medications reviewed Taken 11/14/2024 1019 by Jill Altamirano RN Medication Review/Management: medications reviewed Taken 11/14/2024 0800 by Jill Altamirano RN Medication Review/Management: medications reviewed Intervention: Promote Injury-Free Environment Recent Flowsheet Documentation Taken 11/14/2024 1200 by Jill Altamirano RN Safety Promotion/Fall Prevention: safety round/check completed Taken 11/14/2024 1019 by Jill Altamirano RN Safety Promotion/Fall Prevention: safety round/check completed Taken 11/14/2024 0800 by Jill Altamirano RN Safety Promotion/Fall Prevention: safety round/check completed Goal Outcome Evaluation: Outcome Evaluation: Pt resting in bed, VS wnl. Cardiolgy following, still monitor I&O's * Jill Altamirano RN - 11/14/2024 1:51 PM EDT Problem: Adult Inpatient Plan of Care Goal: Plan of Care Review Outcome: Progressing Flowsheets (Taken 11/14/2024 0740 by Libertad Urbano, PT) Outcome Evaluation: Pt is indep with mobility. She has good BLE strength and good balance. Skilled PT services are not indicated this was discussed and agreed upon with patient. Discharge PT., Goal: Patient-Specific Goal (Individualized) Outcome: Progressing Goal: Absence of Hospital-Acquired Illness or Injury Outcome: Progressing Intervention: Identify and Manage Fall Risk Recent Flowsheet Documentation Taken 11/14/2024 1200 by Jill Altamirano RN Safety Promotion/Fall Prevention: safety round/check completed Taken 11/14/2024 1019 by Jill Altamirano RN Safety Promotion/Fall Prevention: safety round/check completed Taken 11/14/2024 0800 by Jill Altamirano RN Safety Promotion/Fall Prevention: safety round/check completed Intervention: Prevent Skin Injury Recent Flowsheet Documentation Taken 11/14/2024 1200 by Jill Altamirano RN Body Position: position changed independently Taken 11/14/2024 1019 by Jill Altamirano RN Body Position: position changed independently Taken 11/14/2024 0800 by Jill Altamirano RN Body Position: position changed independently Skin Protection: incontinence pads utilized Intervention: Prevent Infection Recent Flowsheet Documentation Taken 11/14/2024 1200 by Jill Altamirano RN Infection Prevention: cohorting utilized environmental surveillance performed equipment surfaces disinfected hand hygiene promoted personal protective equipment utilized rest/sleep promoted Taken 11/14/2024 1019 by Jill Altamirano RN Infection Prevention: cohorting utilized environmental surveillance performed hand hygiene promoted equipment surfaces disinfected personal protective equipment utilized rest/sleep promoted single patient room provided Taken 11/14/2024 0800 by Jill Altamirano RN Infection Prevention: cohorting utilized environmental surveillance performed equipment surfaces disinfected hand hygiene promoted personal protective equipment utilized rest/sleep promoted Goal: Optimal Comfort and Wellbeing Outcome: Progressing Goal: Readiness for Transition of Care Outcome: Progressing Problem: Comorbidity Management Goal: Maintenance of COPD Symptom Control Outcome: Progressing Intervention: Maintain COPD (Chronic Obstructive Pulmonary Disease) Symptom Control Recent Flowsheet Documentation Taken 11/14/2024 1200 by Jill Altamirano RN Medication Review/Management: medications reviewed Taken 11/14/2024 1019 by Jill Altamirano RN Medication Review/Management: medications reviewed Taken 11/14/2024 0800 by Jill Altamirano RN Medication Review/Management: medications reviewed Problem: Noninvasive Ventilation Acute Goal: Effective Unassisted Ventilation and Oxygenation Outcome: Progressing Problem: Fall Injury Risk Goal: Absence of Fall and Fall-Related Injury Outcome: Progressing Intervention: Identify and Manage Contributors Recent Flowsheet Documentation Taken 11/14/2024 1200 by Jill Altamirano RN Medication Review/Management: medications reviewed Taken 11/14/2024 1019 by Jill Altamirano RN Medication Review/Management: medications reviewed Taken 11/14/2024 0800 by Jill Altamirano RN Medication Review/Management: medications reviewed Intervention: Promote Injury-Free Environment Recent Flowsheet Documentation Taken 11/14/2024 1200 by Jill Altamirano RN Safety Promotion/Fall Prevention: safety round/check completed Taken 11/14/2024 1019 by Jill Altamirano RN Safety Promotion/Fall Prevention: safety round/check completed Taken 11/14/2024 0800 by Jill Altamirano RN Safety Promotion/Fall Prevention: safety round/check completed Goal Outcome Evaluation: Outcome Evaluation: Pt resting in bed, VS wnl. Cardiolgy following, still monitor I&O's * Libertad Urbano, PT - 11/14/2024 7:40 AM EDT Goal Outcome Evaluation: Plan of Care Reviewed With: patient Outcome Evaluation: Pt is indep with mobility. She has good BLE strength and good balance. Skilled PT services are not indicated; this was discussed and agreed upon with patient. Discharge PT., * Jill Altamirano RN - 11/13/2024 6:02 PM EDT Problem: Adult Inpatient Plan of Care Goal: Plan of Care Review Outcome: Not Progressing Flowsheets (Taken 11/13/2024 1801) Outcome Evaluation: Pt resting in bed, VS wnl. Cardiolgy following, still monitor I&O's Goal: Patient-Specific Goal (Individualized) Outcome: Not Progressing Goal: Absence of Hospital-Acquired Illness or Injury Outcome: Not Progressing Intervention: Identify and Manage Fall Risk Recent Flowsheet Documentation Taken 11/13/2024 1801 by Jill Altamirano RN Safety Promotion/Fall Prevention: safety round/check completed activity supervised assistive device/personal items within reach clutter free environment maintained fall prevention program maintained Taken 11/13/2024 1600 by Jill Altamirano RN Safety Promotion/Fall Prevention: assistive device/personal items within reach activity supervised clutter free environment maintained safety round/check completed Taken 11/13/2024 1400 by Jill Altamirano RN Safety Promotion/Fall Prevention: activity supervised assistive device/personal items within reach clutter free environment maintained safety round/check completed Taken 11/13/2024 1216 by Jill Altamirano RN Safety Promotion/Fall Prevention: safety round/check completed activity supervised assistive device/personal items within reach clutter free environment maintained Taken 11/13/2024 1000 by Jill Altamirano RN Safety Promotion/Fall Prevention: activity supervised assistive device/personal items within reach safety round/check completed Taken 11/13/2024 0800 by Jill Altamirano RN Safety Promotion/Fall Prevention: safety round/check completed assistive device/personal items within reach activity supervised clutter free environment maintained fall prevention program maintained Intervention: Prevent Skin Injury Recent Flowsheet Documentation Taken 11/13/2024 1801 by Jill Altamirano RN Body Position: position changed independently Taken 11/13/2024 1600 by Jill Altamirano RN Body Position: position changed independently Taken 11/13/2024 1400 by Jill Altamirano RN Body Position: position changed independently Taken 11/13/2024 1216 by Jill Altamirano RN Body Position: position changed independently Taken 11/13/2024 1000 by Jill Altamirano RN Body Position: position changed independently Taken 11/13/2024 0800 by Jill Altamirano RN Body Position: position changed independently Intervention: Prevent Infection Recent Flowsheet Documentation Taken 11/13/2024 1801 by Jill Altamirano RN Infection Prevention: cohorting utilized environmental surveillance performed equipment surfaces disinfected hand hygiene promoted personal protective equipment utilized rest/sleep promoted Taken 11/13/2024 1600 by Jill Altamirano RN Infection Prevention: cohorting utilized environmental surveillance performed hand hygiene promoted rest/sleep promoted single patient room provided personal protective equipment utilized equipment surfaces disinfected Taken 11/13/2024 1400 by Jill Altamirano RN Infection Prevention: cohorting utilized environmental surveillance performed equipment surfaces disinfected hand hygiene promoted personal protective equipment utilized rest/sleep promoted Taken 11/13/2024 1216 by Jill Altamirano RN Infection Prevention: cohorting utilized environmental surveillance performed equipment surfaces disinfected personal protective equipment utilized hand hygiene promoted rest/sleep promoted Taken 11/13/2024 1000 by Jill Altamirano RN Infection Prevention: cohorting utilized environmental surveillance performed equipment surfaces disinfected hand hygiene promoted personal protective equipment utilized rest/sleep promoted Taken 11/13/2024 0800 by Jill Altamirano RN Infection Prevention: cohorting utilized environmental surveillance performed equipment surfaces disinfected hand hygiene promoted personal protective equipment utilized rest/sleep promoted Goal: Optimal Comfort and Wellbeing Outcome: Not Progressing Intervention: Monitor Pain and Promote Comfort Recent Flowsheet Documentation Taken 11/13/2024 0800 by Jill Altamirano RNwell logging mud analysis captain Interventions: no interventions per patient request Intervention: Provide Person-Centered Care Recent Flowsheet Documentation Taken 11/13/2024 0800 by Jill Altamirano RN Trust Relationship/Rapport: care explained choices provided thoughts/feelings acknowledged Goal: Readiness for Transition of Care Outcome: Not Progressing Problem: Comorbidity Management Goal: Maintenance of COPD Symptom Control Outcome: Not Progressing Intervention: Maintain COPD (Chronic Obstructive Pulmonary Disease) Symptom Control Recent Flowsheet Documentation Taken 11/13/2024 1801 by Jill Altamirano RN Medication Review/Management: medications reviewed Taken 11/13/2024 1600 by Jill Altamirano RN Medication Review/Management: medications reviewed Taken 11/13/2024 1400 by Jill Altamirano RN Medication Review/Management: medications reviewed Taken 11/13/2024 1216 by Jill Altamirano RN Medication Review/Management: medications reviewed Taken 11/13/2024 1000 by Jill Altamirano RN Medication Review/Management: medications reviewed Taken 11/13/2024 0800 by Jill Altamirano RN Medication Review/Management: medications reviewed Problem: Noninvasive Ventilation Acute Goal: Effective Unassisted Ventilation and Oxygenation Outcome: Not Progressing Goal Outcome Evaluation: Outcome Evaluation: Pt resting in bed, VS wnl. Cardiolgy following, still monitor I&O's * Che Velazquez OT - 11/13/2024 1:05 PM EDT Goal Outcome Evaluation: Plan of Care Reviewed With: patient Progress: no change Outcome Evaluation: Pt presents at her functional baseline with all ADLs and mobility at this time.No skilled OT services warranted. OT will dc. Anticipated Discharge Disposition (OT): home * Vale Hammond RN - 11/13/2024 5:10 AM EDT Problem: Adult Inpatient Plan of Care Goal: Plan of Care Review Outcome: Progressing Flowsheets (Taken 11/13/2024 0509) Progress: improving Outcome Evaluation: Pt is A&Ox4, VSS, NSR on the monitor, resting on 2L nc. Pt complained of some knee and back pain when arriving to the floor, controlled by oral PRNs. Pt o2 sat drops with exertion. Pt has received abx as ordered. Pt is sleeping with CPaP. No further complaints at this time. Will continue plan of care. Plan of Care Reviewed With: patient Goal: Patient-Specific Goal (Individualized) Outcome: Progressing Goal: Absence of Hospital-Acquired Illness or Injury Outcome: Progressing Intervention: Identify and Manage Fall Risk Recent Flowsheet Documentation Taken 11/13/2024 0400 by Vale Hammond RN Safety Promotion/Fall Prevention: activity supervised assistive device/personal items within reach clutter free environment maintained nonskid shoes/slippers when out of bed room organization consistent safety round/check completed toileting scheduled Taken 11/13/2024 0251 by Vale Hammond RN Safety Promotion/Fall Prevention: activity supervised assistive device/personal items within reach clutter free environment maintained nonskid shoes/slippers when out of bed room organization consistent safety round/check completed toileting scheduled Intervention: Prevent Skin Injury Recent Flowsheet Documentation Taken 11/13/2024 040 by Vale Hammond RN Body Position: position changed independently side-lying right Skin Protection: incontinence pads utilized skin sealant/moisture barrier applied Taken 11/13/2024250 by Vale Hammond RN Body Position: position changed independently Skin Protection: incontinence pads utilized skin sealant/moisture barrier applied Intervention: Prevent and Manage VTE (Venous Thromboembolism) Risk Recent Flowsheet Documentation Taken 11/13/2024250 by Vale Hammond RN VTE Prevention/Management: (see MAR) other (see comments) Intervention: Prevent Infection Recent Flowsheet Documentation Taken 11/13/2024 040 by Vale Hammond RN Infection Prevention: environmental surveillance performed rest/sleep promoted single patient room provided Taken 11/13/2024250 by Vale Hammond RN Infection Prevention: environmental surveillance performed rest/sleep promoted single patient room provided Goal: Optimal Comfort and Wellbeing Outcome: Progressing Intervention: Monitor Pain and Promote Comfort Recent Flowsheet Documentation Taken 11/13/2024399 by Vale Hammond RN Pain Management Interventions: quiet environment facilitated relaxation techniques promoted Taken 11/13/2024 0325 by Vale Hammond RN Pain Management Interventions: pain medication given quiet environment facilitated relaxation techniques promoted Taken 11/13/2024250 by Vale Hammond RN Pain Management Interventions: pain management plan reviewed with patient/caregiver quiet environment facilitated relaxation techniques promoted Intervention: Provide Person-Centered Care Recent Flowsheet Documentation Taken 11/13/2024250 by Vale Hammond RN Trust Relationship/Rapport: care explained choices provided questions answered reassurance provided thoughts/feelings acknowledged Goal: Readiness for Transition of Care Outcome: Progressing Intervention: Mutually Develop Transition Plan Recent Flowsheet Documentation Taken 11/13/2024255 by Vale Hammond RN Transportation Anticipated: family or friend will provide Patient/Family Anticipated Services at Transition: none Patient/Family Anticipates Transition to: home Taken 11/13/2024 025 by Yantz, Coltin H., RN Equipment Currently Used at Home: cpap bp cuff oxygen Problem: Comorbidity Management Goal: Maintenance of COPD Symptom Control Outcome: Progressing Intervention: Maintain COPD (Chronic Obstructive Pulmonary Disease) Symptom Control Recent Flowsheet Documentation Taken 11/13/2024 0400 by Vale Hammond RN Medication Review/Management: medications reviewed Taken 11/13/2024 0251 by Vale Hammond RN Medication Review/Management: medications reviewed Goal Outcome Evaluation: Plan of Care Reviewed With: patient Progress: improving Outcome Evaluation: Pt is A&Ox4, VSS, NSR on the monitor, resting on 2L nc. Pt complained of some knee and back pain when arriving to the floor, controlled by oral PRNs. Pt o2 sat drops with exertion. Pt has received abx as ordered. Pt is sleeping with CPaP. No further complaints at this time. Will continue plan of care. documented in this encounter ED Notes * Vasu Mckeon MD - 11/12/2024 5:17 PM EDT EMERGENCY DEPARTMENT ENCOUNTER Pt Name: Casi Cruz Pt : 1960 Room Number: 10/16 Date of encounter: 11/12/2024 PCP: Sandra Orozco APRN ED Provider: Vasu Mckeon MD Historian: Patient, family HPI: Chief Complaint: Sent by cardiology, leg swelling and dyspnea Context: Casi Cruz is a 64-year-old with COPD, chronic respiratory failure, aortic valve regurgitation on Bumex, who was sent by her psychiatry teacher for worsening leg swelling and dyspnea. This hasbeen getting worse over the last week despite her taking her diuretics. She saw her lung doctor whosaid it was not related to her COPD and was likely cardiac in nature she saw the midlevel and Dr. Kirk office and was told to come to the emergency department for her symptoms. She denies illness or fevers. No other complaints at this time. PAST MEDICAL HISTORY Past Medical History: Diagnosis Date Aortic insufficiency MODERATE BY ECHO Aortic regurgitation MODERATE BY [facility] ECHO Arthritis Asthma Chronic venous insufficiency CKD (chronic kidney disease) COPD (chronic obstructive pulmonary disease) Gastroesophageal reflux GERD with apnea Heart murmur Mitral regurgitation MILD TO MODERATE BY ECHO Seizures Sleep apnea Stroke TIA (transient ischemic attack) Tricuspid regurgitation MILD BY ECHO PAST SURGICAL HISTORY Past Surgical History: Procedure Laterality Date CATARACT EXTRACTION Bilateral 11/2020 OTHER SURGICAL HISTORY 01/22/2023 AA with runoff#1- [facility] ERES/IOP: CLAUDICATION OF LLE. NORMAL AA W/RO OTHER SURGICAL HISTORY LOOP RECORDER EXPLANTATION: 05/19/21- EXPLANT- DR. KIRK; LOOP RECORDER PLACEMENT: 11/06/2018- AE. LOOP RECORDER SERIAL #[id number] SINUS SURGERY FAMILY HISTORY Family History Problem Relation Age of Onset Coronary artery disease Mother Heart attack Mother Hyperlipidemia Father Hypertension Father SOCIAL HISTORY Social History Socioeconomic History Marital status: Tobacco Use Smoking status: Former Types: Cigarettes Smokeless tobacco: Never Tobacco comments: Smoked since 1973 Vaping Use Vaping status: Never Used Substance and Sexual Activity Alcohol use: Not Currently Comment: former Drug use: Never Sexual activity: Defer ALLERGIES Celecoxib, Hydrocodone, Cipro [ciprofloxacin hcl], Dexamethasone, Gabapentin, Levofloxacin, Nitrofurantoin, Nortriptyline, Poison oak extract, Repatha [evolocumab], and Wound dressing adhesive REVIEW OF SYSTEMS Review of Systems All systems reviewed and negative except for those discussed in HPI. PHYSICAL EXAM I have reviewed the triage vital signs and nursing notes. ED Triage Vitals [11/12/24 1642] Temp Heart Rate Resp BP SpO2 98.1 ??F (36.7 ??C) 77 20 107/65 94 % Temp src Heart Rate Source Patient Position BP Location FiO2 (%) -- -- -- -- -- Physical Exam GENERAL: Appears chronically ill HENT: Nares patent. EYES: No scleral icterus. CV: Regular rhythm, regular rate. RESPIRATORY: Normal effort. No audible wheezes, rales or rhonchi. ABDOMEN: Soft, nontender MUSCULOSKELETAL: No deformities. Symmetric pitting lower extremity edema NEURO: Alert, moves all extremities, follows commands. SKIN: Warm, dry, no rash visualized. LAB RESULTS Recent Results (from the past 24 hours) ECG 12 Lead Dyspnea Collection Time: 11/12/24 4:45 PM Result Value Ref Range QT Interval 404 ms QTC Interval 445 ms Comprehensive Metabolic Panel Collection Time: 11/12/24 5:17 PM Specimen: Blood Result Value Ref Range Glucose 96 65 - 99 mg/dL BUN 24.7 (H) 8.0 - 23.0 mg/dL Creatinine 1.06 (H) 0.57 - 1.00 mg/dL Sodium 139 136 - 145 mmol/L Potassium 4.4 3.5 - 5.2 mmol/L Chloride 101 98 - 107 mmol/L CO2 27.9 22.0 - 29.0 mmol/L Calcium 9.1 8.6 - 10.5 mg/dL Total Protein 6.4 6.0 - 8.5 g/dL Albumin 4.0 3.5 - 5.2 g/dL ALT (SGPT) 15 1 - 33 U/L AST (SGOT) 27 1 - 32 U/L Alkaline Phosphatase 113 39 - 117 U/L Total Bilirubin 0.2 0.0 - 1.2 mg/dL Globulin 2.4 gm/dL A/G Ratio 1.7 g/dL BUN/Creatinine Ratio 23.3 7.0 - 25.0 Anion Gap 10.1 5.0 - 15.0 mmol/L eGFR 58.1 (L) >60.0 mL/min/1.73 BNP Collection Time: 11/12/24 5:17 PM Specimen: Blood Result Value Ref Range proBNP 247.0 0.0 - 900.0 pg/mL High Sensitivity Troponin T Collection Time: 11/12/24 5:17 PM Specimen: Blood Result Value Ref Range HS Troponin T 17 (H) <14 ng/L Green Top (Gel) Collection Time: 11/12/24 5:17 PM Result Value Ref Range Extra Tube Hold for add-ons. Lavender Top Collection Time: 11/12/24 5:17 PM Result Value Ref Range Extra Tube hold for add-on Gold Top - SST Collection Time: 11/12/24 5:17 PM Result Value Ref Range Extra Tube Hold for add-ons. Castellano Top Collection Time: 11/12/24 5:17 PM Result Value Ref Range Extra Tube Hold for add-ons. Light Blue Top Collection Time: 11/12/24 5:17 PM Result Value Ref Range Extra Tube Hold for add-ons. CBC Auto Differential Collection Time: 11/12/24 5:17 PM Specimen: Blood Result Value Ref Range WBC 5.82 3.40 - 10.80 10*3/mm3 RBC 4.33 3.77 - 5.28 10*6/mm3 Hemoglobin 9.0 (L) 12.0 - 15.9 g/dL Hematocrit 32.5 (L) 34.0 - 46.6 % MCV 75.1 (L) 79.0 - 97.0 fL MCH 20.8 (L) 26.6 - 33.0 pg MCHC 27.7 (L) 31.5 - 35.7 g/dL RDW 19.1 (H) 12.3 - 15.4 % RDW-SD 51.8 37.0 - 54.0 fl MPV 9.5 6.0 - 12.0 fL Platelets 240 140 - 450 10*3/mm3 Neutrophil % 58.8 42.7 - 76.0 % Lymphocyte % 26.5 19.6 - 45.3 % Monocyte % 7.6 5.0 - 12.0 % Eosinophil % 5.5 0.3 - 6.2 % Basophil % 0.7 0.0 - 1.5 % Immature Grans % 0.9 (H) 0.0 - 0.5 % Neutrophils, Absolute 3.43 1.70 - 7.00 10*3/mm3 Lymphocytes, Absolute 1.54 0.70 - 3.10 10*3/mm3 Monocytes, Absolute 0.44 0.10 - 0.90 10*3/mm3 Eosinophils, Absolute 0.32 0.00 - 0.40 10*3/mm3 Basophils, Absolute 0.04 0.00 - 0.20 10*3/mm3 Immature Grans, Absolute 0.05 0.00 - 0.05 10*3/mm3 nRBC 0.0 0.0 - 0.2 /100 WBC D-dimer, Quantitative Collection Time: 11/12/24 5:17 PM Specimen: Blood Result Value Ref Range D-Dimer, Quantitative 10.36 (H) 0.00 - 0.66 MCGFEU/mL Lactic Acid, Plasma Collection Time: 11/12/24 5:17 PM Specimen: Blood Result Value Ref Range Lactate 1.6 0.5 - 2.0 mmol/L Lipase Collection Time: 11/12/24 5:17 PM Specimen: Blood Result Value Ref Range Lipase 20 13 - 60 U/L TSH Rfx On Abnormal To Free T4 Collection Time: 11/12/24 5:17 PM Specimen: Blood Result Value Ref Range TSH 2.480 0.270 - 4.200 uIU/mL Phosphorus Collection Time: 11/12/24 5:17 PM Specimen: Blood Result Value Ref Range Phosphorus 4.1 2.5 - 4.5 mg/dL Magnesium Collection Time: 11/12/24 5:17 PM Specimen: Blood Result Value Ref Range Magnesium 1.9 1.6 - 2.4 mg/dL Scan Slide Collection Time: 11/12/24 5:17 PM Specimen: Blood Result Value Ref Range Anisocytosis Slight/1+ None Seen Hypochromia Slight/1+ None Seen Microcytes Mod/2+ None Seen WBC Morphology Normal Normal Platelet Morphology Normal Normal High Sensitivity Troponin T 1Hr Collection Time: 11/12/24 7:16 PM Specimen: Blood Result Value Ref Range HS Troponin T 16 (H) <14 ng/L Troponin T Numeric Delta -1 ng/L Troponin T % Delta -6 Abnormal if >/= 20% Urinalysis With Microscopic If Indicated (No Culture) - Urine, Clean Catch Collection Time: 11/12/24 7:20 PM Specimen: Urine, Clean Catch Result Value Ref Range Color, UA Yellow Yellow, Straw Appearance, UA Clear Clear pH, UA 5.5 5.0 - 8.0 Specific [place], UA >1.030 (H) 1.005 - 1.030 Glucose, UA Negative Negative Ketones, UA Negative Negative Bilirubin, UA Negative Negative Blood, UA Negative Negative Protein, UA Trace (A) Negative Leuk Esterase, UA Small (1+) (A) Negative Nitrite, UA Negative Negative Urobilinogen, UA 1.0 E.U./dL 0.2 - 1.0 E.U./dL Urinalysis, Microscopic Only - Urine, Clean Catch Collection Time: 11/12/24 7:20 PM Specimen: Urine, Clean Catch Result Value Ref Range RBC, UA 0-2 None Seen, 0-2 /HPF WBC, UA 11-20 (A) None Seen, 0-2 /HPF Bacteria, UA None Seen None Seen /HPF Squamous Epithelial Cells, UA 3-6 (A) None Seen, 0-2 /HPF Hyaline Casts, UA 0-2 None Seen /LPF Methodology Automated Microscopy COVID-19, FLU A/B, RSV PCR 1 HR TAT - Swab, Nasopharynx Collection Time: 11/12/24 7:21 PM Specimen: Nasopharynx; Swab Result Value Ref Range COVID19 Not Detected Not Detected - Ref. Range Influenza A PCR Not Detected Not Detected Influenza B PCR Not Detected Not Detected RSV, PCR Not Detected Not Detected Blood Gas, Venous With Co-Ox Collection Time: 11/12/24 11:16 PM Specimen: Venous Blood Result Value Ref Range Site Nurse/Dr Draw pH, Venous 7.337 7.310 - 7.410 pH Units pCO2, Venous 59.6 (H) 41.0 - 51.0 mm Hg pO2, Venous 30.4 27.0 - 53.0 mm Hg HCO3, Venous 31.9 (H) 22.0 - 28.0 mmol/L Base Excess, Venous 5.0 (H) -2.0 - 2.0 mmol/L Hemoglobin, Blood Gas 9.3 (L) 14 - 18 g/dL Oxyhemoglobin Venous 48.3 % Methemoglobin Venous 0.4 % Carboxyhemoglobin Venous 1.7 % CO2 Content 33.7 (H) 22 - 33 mmol/L Temperature 37.0 Barometric Pressure for Blood Gas Modality Nasal Cannula FIO2 28 % Rate 0 Breaths/minute PIP 0 cmH2O IPAP 0 EPAP 0 If labs were ordered, I independently reviewed the results and considered them in treating the patient. RADIOLOGY CT Angiogram Chest Pulmonary Embolism Result Date: 11/12/2024 CT ANGIOGRAM CHEST PULMONARY EMBOLISM Date of Exam: 11/12/2024 7:35 PM EDT Indication: Shortness of Breath. Comparison: None available. Technique: Axial CT images were obtained of the chest after the uneventful intravenous administration of iodinated contrast utilizing pulmonary embolism protocol. In addition, a 3-D volume rendered image was created for interpretation. Reconstructed coronal and sagittal images were also obtained. Automated exposure control and iterative construction methods were used. Findings: Pulmonary Arteries: Pulmonary artery is borderline enlarged. No evidence of pulmonary embolus Hilum and Mediastinum: No evidence of adenopathy. Heart size is normal. There is moderate coronary artery calcification. Lung Parenchyma and Pleura: There is moderate centrilobular emphysema. Central airways are patent there is atelectasis and scarring lingula and middle lobe. 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 Osseous structures: No aggressive focal lytic or sclerotic osseous lesions. No evidence of pulmonary embolus. No acute abnormality. Electronically Signed: Jed Machuca MD 11/12/2024 8:31 PM EDT Workstation ID: [id number] XR Chest 1 View Result Date: 11/12/2024 XR CHEST 1 VW Date of Exam: 11/12/2024 6:28 PM EDT Indication: SOA triage protocol. Comparison: 07/16/2024 Findings: Heart size at the upper limits of normal. Pulmonary vessels normal. Lungs are clear. No pleural effusion. No pneumothorax. Impression: 1. No acute cardiopulmonary disease. Electronically Signed: Arben Neely MD 11/12/2024 7:02 PM EDT Workstation ID: [id number] I ordered and independently reviewed the above noted radiographic studies. I viewed images of chest x-ray which showed borderline cardiomegaly but otherwise no acute pathology per my independent interpretation. CTA of the chest not showing pulmonary embolism or other acute pathology that I can appreciate See radiologist's dictation for official interpretation. PROCEDURES Procedures ECG 12 Lead Dyspnea Preliminary Result Test Reason : Dyspnea Blood Pressure : */* mmHG Vent. Rate : 73 BPM Atrial Rate : 73 BPM P-R Int : 146 ms QRS Dur : 86 ms QT Int : 404 ms P-R-T Axes : 51 49 32 degrees QTcB Int : 445 ms Normal sinus rhythm Normal ECG No previous ECGs available Referred By: Confirmed By: MEDICATIONS GIVEN IN ER Medications sodium chloride 0.9 % flush 10 mL (has no administration in time range) cefTRIAXone (ROCEPHIN) 2,000 mg in sodium chloride 0.9 % 100 mL MBP (has no administration in time range) bumetanide (BUMEX) injection 2 mg (2 mg Intravenous Given 11/12/242148) ipratropium-albuterol (DUO-NEB) nebulizer solution 3 mL (3 mL Nebulization Given 11/12/24 9342) iopamidol (ISOVUE-370) 76 % injection 75 mL (75 mL Intravenous Given 11/12/24 194) MEDICAL DECISION MAKING, PROGRESS, and CONSULTS All labs, if obtained, have been independently reviewed by me. All radiology studies, if obtained, have been reviewed by me and the radiologist dictating the report. All EKGs, if obtained, have been independently viewed and interpreted by me/my attending physician. Discussion below represents my analysis of pertinent findings related to patient's condition, differential diagnosis, treatment plan and final disposition. Differential diagnosis: CHF, COPD, pneumonia, pulmonary embolism, aortic dissection, acute respiratory failure, anemia, electrolyte abnormality Additional sources: - Discussed/ obtained information from independent historians: Family - External (non-ED) record review: Chart review shows history of: Paroxysmal atrial fibrillation Chronic respiratory failure with hypoxia, on home O2 therapy Moderate aortic valve regurgitation Hyperlipidemia, unspecified hyperlipidemia type Chart also shows history of COPD and CKD - Chronic or social conditions impacting care: Aortic regurgitation, COPD, chronic hypoxia, BMI 35 Orders placed during this visit: Orders Placed This Encounter Procedures COVID PRE-OP / PRE-PROCEDURE SCREENING ORDER (NO ISOLATION) - Swab, Nasopharynx COVID-19, FLU A/B, RSV PCR 1 HR TAT - Swab, Nasopharynx Urine Culture - Urine, Urine, Clean Catch XR Chest [address] Angiogram Chest Pulmonary Embolism [facility] Draw Comprehensive Metabolic Panel BNP High Sensitivity Troponin T CBC Auto Differential Urinalysis With Microscopic If Indicated (No Culture) - Urine, Clean Catch Blood Gas, Arterial -With Co-Ox Panel: Yes D-dimer, Quantitative Lactic Acid, Plasma Lipase TSH Rfx On Abnormal To Free T4 Phosphorus Magnesium Scan Slide High Sensitivity Troponin T 1Hr Urinalysis, Microscopic Only - Urine, Clean Catch Blood Gas, Venous With Co-Ox Diet: Regular/House, Cardiac; Healthy Heart (2-3 Na+); Fluid Consistency: Thin (IDDSI 0) Undress & Gown Continuous Pulse Oximetry Vital Signs Inpatient Cardiology Consult Oxygen Therapy- Nasal Cannula; Titrate 1-6 LPM Per SpO2; 90 - 95% Adult Transthoracic Echo Complete W/ Cont if Necessary Per Protocol Insert Peripheral IV Inpatient Admission CBC & Differential Green Top (Gel) Lavender Top Gold Top - SST Castellano Top Light Blue Top Additional orders considered but not ordered: ED Course: Consultants: Cardiology, hospital medicine ED Course as of 11/13/24 0141 Chantelle Nov 12, 2024 1640 Chart review shows history of: Paroxysmal atrial fibrillation Chronic respiratory failure with hypoxia, on home O2 therapy Moderate aortic valve regurgitation Hyperlipidemia, unspecified hyperlipidemia type Chart also shows history of COPD and CKD [CC] 1715 This is 64-year-old with COPD, chronic respiratory failure, aortic valve regurgitation on Bumex, who was sent by her psychiatry teacher for worsening leg swelling and dyspnea. This has been getting worse over the last week despite her taking her diuretics. She saw her lung doctor who said it was notrelated to her COPD and was likely cardiac in nature she saw the midlevel and Dr. Kirk office and was told to come to the emergency department for her symptoms. She denies illness or fevers. No othercomplaints at this time. [CC] 1717 She arrived awake and alert vitals within normal limit she satting well on her baseline 2 L nasal cannula she does have moderate pitting lower extremity edema empirically treating with 2 mg of IV Bumex mild wheezing on exam giving a nebulizer treatment obtaining basic cardiac and respiratory workup will reevaluate pending initial workup. [CC] SatNov 13, 2024 0138 X-ray showing borderline cardiomegaly Metabolic panel reassuring and actionable She does have anemia hemoglobin of 9 she says she has chronic anemia but is not sure what her baseline hemoglobin is No elevation in lactate D-dimer was significantly elevated more than [address] of the chest which does not show pulmonary embolism I have ordered duplex ultrasound but I do not have this overnight and will be performed in the morning. [CC] 0139 Troponin mildly elevated at 17 but no delta on repeat troponin Urinalysis showing UTI I am starting on Rocephin and sending for culture blood gas showing chronic hypercapnia that is compensated. Even after the Bumex and nebulizer treatment she remains significantly dyspneic satting in the low 90s on her baseline nasal cannula but we ambulated her in the emergency department she immediately dropped to the low 80s. I have contacted Dr. Kirk her psychiatry teacher who agrees with admission does not want any special orders at this time but will evaluate in the morning. Hospitalist team consulted for admission. [CC] ED Course User Index [CC] Vasu Mckeon MD Shared Decision Making: After my consideration of clinical presentation and any laboratory/radiology studies obtained, I discussed the findings with the patient/patient client representative who is in agreement with the treatment plan and the final disposition. Risks and benefits of discharge and/or observation/admission were discussed. OF 01:41 EDT VITALS: BP - 95/49 HR - 87 TEMP - 97.8 ??F (36.6 ??C) (Oral) O2 SATS - 95% DIAGNOSIS Final diagnoses: Referred by health direct support professional caregiver Dyspnea on exertion Chronic respiratory failure with hypoxia, on home O2 therapy SMOOTH (obstructive sleep apnea) Elevated troponin Moderate aortic valve regurgitation DISPOSITION Admit Please note that portions of this document were completed with voice recognition software. Vasu Mckeon MD 11/13/24 0141 documented in this encounter Miscellaneous Notes * Case Management/Social Work - Nikki Saleh RN - 11/14/2024 2:13 PM EDT Case Management Discharge Note Final Note: Pt is discharging home today. RN states spouse is bringing a portable O2 tank for the ride home. Spouse will provide transportation via private vehicle. Selected Continued Care - Admitted Since 11/12/2024 Destination No services have been selected for the patient. Durable Medical Equipment No services have been selected for the patient. Dialysis/Infusion No services have been selected for the patient. Home Medical Care No services have been selected for the patient. Therapy No services have been selected for the patient. Community Resources No services have been selected for the patient. Community & DME No services have been selected for the patient. Transportation Services Transportation: Private Transportation Private: Car Final Discharge Disposition Code: 01 - home or self-care * Case Management/Social Work - Geno Helms RN - 11/13/2024 2:31 PM EDT Discharge Planning Assessment [facility] Patient Name: Casi Cruz Today's Date: 11/13/2024 Admit Date: 11/12/2024 Plan[place] Discharge Needs Assessment Row Name 11/13/24 1425 Living Environment People in Home alone Current Living Arrangements home Resource/Environmental Concerns Resource/Environmental Concerns none Transportation Concerns none Discharge Needs Assessment Equipment Currently Used at Home cane, straight;cpap;oxygen Concerns to be Addressed denies needs/concerns at this time Discharge Plan Row Name 11/13/24 1426 Plan Plan [place] Patient/Family in Agreement with Plan yes Plan Comments Spoke with patient at the bedside. Patient lives alone in a home in [facility]. Wears 2L of oxygen and CPAP provided by [employer]. Independent and ambulates with a straight cane as needed. Not current with and outpatient services. PCP is Sandra Orozco APRN. Pharmacy is [facility]. Insurance is Medicare A & B. Plan is [place] and has transportation. Denies concerns and needs at this time. CM will follow. Final Discharge Disposition Code 01 - home or self-care Continued Care and Services - Admitted Since 11/12/2024 No active coordination exists. Expected Discharge Date and Time Expected Discharge Date Expected Discharge Time Nov 15, 2024 Demographic Summary No documentation. Functional Status Row Name 11/13/24 1422 Functional Status Usual Activity Tolerance moderate Current Activity Tolerance moderate Functional Status, IADL Medications independent Meal Preparation independent Housekeeping independent Laundry independent Shopping independent Employment/ Employment Status disabled Psychosocial No documentation. Abuse/Neglect No documentation. Legal No documentation. Substance Abuse No documentation. Patient Forms No documentation. Geno Helms RN documented in this encounter Plan of Treatment Upcoming Encounters Date Type Department Care Team (Late st Contact Info) Description 11/26/2024 11:00 AM EDT Office Visit [facility] [address] [place] [id number] Dina Solano APRN [address] [facility] [address] [place] [address] documented as of this encounter Procedures Procedure Name Priority Date/Time Associated Diagnosis Comments ECHO COMPLETE W/ DOPPLER AND COLOR FLOW Routine 11/14/2024 11:32 AM EDT CBC WITH AUTO DIFFERENTIAL Routine 11/13/2024 12:07 PM EDT RETICULOCYTES Routine 11/13/2024 12:07 PM EDT CBC AND DIFFERENTIAL Routine 11/13/2024 12:07 PM EDT TSH Routine 11/13/2024 12:07 PM EDT MAGNESIUM Routine 11/13/2024 12:07 PM EDT HEMOGLOBIN A1C Routine 11/13/2024 12:07 PM EDT FOLATE RBC Routine 11/13/2024 12:07 PM EDT BASIC METABOLIC PANEL Routine 11/13/2024 12:07 PM EDT DUPLEX VENOUS LOWER EXTREMITY BILATERAL CAR STAT 11/13/2024 8:50 AM EDT ECG 12-LEAD Routine 11/13/2024 5:53 AM EDT RESPIRATORY PANEL PCR W/ COVID-19 (SARS-COV-2), 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 SWAB IN UTM/VTP, 2 HR TAT Routine 11/13/2024 3:26 AM EDT BLOOD GAS, VENOUS W/CO-OXIMETRY STAT 11/12/2024 11:[address] ANGIOGRAM CHEST PULMONARY EMBOLISM STAT 11/12/2024 7:46 PM EDT COVID-19/FLUA&B/RSV, 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 SWAB IN TRANSPORT MEDIA 1 HR TAT STAT 11/12/2024 7:21 PM EDT COVID PRE-OP / PRE-PROCEDURE SCREENING ORDER (NO ISOLATION) STAT 11/12/2024 7:21 PM EDT URINALYSIS, MICROSCOPIC ONLY STAT 11/12/2024 7:20 PM EDT URINALYSIS W/ MICROSCOPIC IF INDICATED (NO CULTURE) STAT 11/12/2024 7:20 PM EDT SODIUM, URINE, RANDOM Add-On 11/12/2024 7:20 PM EDT OSMOLALITY, URINE Add-On 11/12/2024 7:2 0 PM EDT CREATININE URINE RANDOM (KIDNEY FUNCTION) GFR COMPONENT Add-On 11/12/2024 7:20 PM EDT URINE CULTURE STAT 11/12/2024 7:20 PM EDT HIGH SENSITIVITIY TROPONIN T 1HR STAT 11/12/2024 7:16 PM EDT IRON PROFILE Add-On 11/12/2024 7:16 PM EDT FERRITIN Add-On 11/12/2024 7:16 PM EDT XR CHEST 1 VW STAT 11/12/2024 6:30 PM EDT CASTELLANO TOP STAT 11/12/2024 5:17 PM EDT TSH RFX ON ABNORMAL TO FREE T4 STAT 11/12/2024 5:17 PM EDT GOLD TOP - SST STAT 11/12/2024 5:17 PM EDT DK GREEN TOP STAT 11/12/2024 5:17 PM EDT SCAN SLIDE STAT 11/12/2024 5:17 PM EDT CBC WITH AUTO DIFFERENTIAL STAT 11/12/2024 5:17 PM EDT LAVENDER TOP STAT 11/12/2024 5:17 PM EDT LIGHT BLUE TOP STAT 11/12/2024 5:17 PM EDT RAINBOW DRAW STAT 11/12/2024 5:17 PM EDT TROPONIN STAT 11/12/2024 5:17 PM EDT D-DIMER, QUANTITATIVE STAT 11/12/2024 5:17 PM EDT CBC AND DIFFERENTIAL STAT 11/12/2024 5:17 PM EDT PHOSPHORUS STAT 11/12/2024 5:17 PM EDT B-TYPE NATRIURETIC PEPTIDE STAT 11/12/2024 5:17 PM EDT MAGNESIUM STAT 11/12/2024 5:17 PM EDT LIPASE STAT 11/12/2024 5:17 PM EDT LACTIC ACID, PLASMA STAT 11/12/2024 5 :17 PM EDT FOLATE Add-On 11/12/2024 5:17 PM EDT VITAMIN B12 Add-On 11/12/2024 5:17 PM EDT COMPREHENSIVE METABOLIC PANEL STAT 11/12/2024 5:17 PM EDT ECG 12-LEAD STAT 11/12/2024 4:45 PM EDT documented in this encounter Results * ECHO COMPLETE W/ DOPPLER AND COLOR FLOW (11/14/2024 11:32 AM EDT) EF(MOD-bp) 72.2 % LVIDd 4.3 cm LVIDs 2.7 cm IVSd 0.80 cm LVPWd 0.90 cm FS 36.5 % IVS/LVPW 0.89 cm ESV(cubed) 19.7 ml LV Sys Vol (BSA corrected) 14.7 cm2 EDV(cubed) 76.8 ml LV Simpson Vol (BSA corrected) 50.2 cm2 LV mass(C)d 112.0 grams LVOT area 3.1 cm2 LVOT diam 2.00 cm EDV(MOD-sp2) 56.7 ml EDV(MOD-sp4) 90.7 ml ESV(MOD-sp2) 15.0 ml ESV(MOD-sp4) 26.6 ml SV(MOD-sp2) 41.7 ml SV(MOD-sp4) 64.1 ml SVi(MOD-SP2) 23.1 ml/m2 SVi(MOD-SP4) 35.5 ml/m2 SVi (LVOT) 54.3 ml/m2 EF(MOD-sp2) 73.5 % EF(MOD-sp4) 70.7 % MV E max parveen 124.0 cm/sec MV A max parveen 122.0 cm/sec MV dec time 0.11 sec MV E/A 1.02 IVRT 120.0 ms LA ESV Index (BP) 18.8 ml/m2 Med Peak E' Parveen 12.1 cm/sec TR max parveen 267.0 cm/sec SV(LVOT) 98.0 ml RV Base 2.9 cm RV Mid 2.30 cm RV Length 6.2 cm TAPSE (>1.6) 2.39 cm RV S' 9.9 cm/sec LA dimension (2D) 3.7 cm LV V1 max 148.0 cm/sec LV V1 max PG 8.8 mmHg LV V1 mean PG 4.0 mmHg LV V1 VTI 31.2 cm Ao pk parveen 155.0 cm/sec Ao max PG 9.6 mmHg Ao mean PG 5.0 mmHg Ao V2 VTI 34.8 cm CHANDLER(I,D) 2.8 cm2 Dimensionless Index 0.90 (DI) MV max PG 6.3 mmHg MV mean PG 4.0 mmHg MV V2 VTI 28.6 cm MVA(VTI) 3.4 cm2 MV dec slope 1,166 cm/sec2 TR max PG 28.5 mmHg PA V2 max 125.0 cm/sec PA acc time 0.11 sec Ao root diam 2.6 cm RVSP(TR) 31 mmHg RAP systole 3 mmHg Anatomical Region Laterality Modality Ultrasound Narrative 11/14/2024 12:17 PM EDT Normal chamber size. Normal LV systolic function without segmental abnormalities. EF estimated at 65%. Normal diastolic function. Aortic valve sclerosis without stenosis. Suggest normal pulmonary artery pressure. Left Ventricle Normal left ventricular cavity size and wall thickness noted. All left ventricular wall segments contract normally. Right Ventricle Normal right ventricular cavity size, wall thickness, systolic function and septal motion noted. Left Atrium Normal left atrial size and volume noted. Right Atrium Normal right atrial cavity size noted. Mitral Valve There is calcification of the mitral valve. Tricuspid Valve Estimated right ventricular systolic pressure from tricuspid regurgitation is normal (<35 mmHg). Calculated right ventricular systolic pressure from tricuspid regurgitation is 31 mmHg. Aortic Valve The aortic valve is abnormal in structure. The aortic valve exhibits sclerosis. There is calcification of the aortic valve. Pulmonic Valve The pulmonic valve is structurally normal with no regurgitation or significant stenosis present. Pericardium The pericardium is normal. There is no evidence of pericardial effusion. . Greater Vessels No dilation of the aortic root is present. Aortic root = 2.6 cm No dilation of the sinuses of Valsalva is present. The inferior vena cava is normally sized. Normal IVC inspiratory collapse of greater than 50% noted. Study Quality The study is technically adequate for diagnosis. Christy Kirk MD CV ECHO ORDERABLES Final Result * (ABNORMAL) CBC Auto Differential (11/13/2024 12:07 PM EDT) WBC 5.41 3.40 - 10.80 10*3/mm3 11/13/2024 12:36 PM EDT [facility] RBC 3.89 3.77 - 5.28 10*6/mm3 11/13/2024 12:36 PM EDT [facility] Hemoglobin 8.1(L) 12.0 - 15.9 g/dL 11/13/2024 12:36 PM EDT [facility] Hematocrit 29.1(L) 34.0 - 46.6 % 11/13/2024 12:36 PM EDT [facility] MCV 74.8(L) 79.0 - 97.0 fL 11/13/2024 12:36 PM EDT [facility] MCH 20.8(L) 26.6 - 33.0 pg 11/13/2024 12:36 PM EDT [facility] MCHC 27.8(L) 31.5 - 35.7 g/dL 11/13/2024 12:36 PM EDT [facility] RDW 19.0(H) 12.3 - 15.4 % 11/13/2024 12:36 PM EDT [facility] RDW-SD 51.3 37.0 - 54.0 fl 11/13/2024 12:36 PM EDT [facility] MPV 9.8 6.0 - 12.0 fL 11/13/2024 12:36 PM [facility] Platelets 227 140 - 450 10*3/mm3 11/13/2024 12:36 PM [facility] Neutrophil % 63.6 42.7 - 76.0 % 11/13/2024 12:36 PM [facility] Lymphocyte % 23.3 19.6 - 45.3 % 11/13/2024 12:36 PM [facility] Monocyte % 8.9 5.0 - 12.0 % 11/13/2024 12:36 PM [facility] Eosinophil % 2.8 0.3 - 6.2 % 11/13/2024 12:36 PM [facility] Basophil % 0.7 0.0 - 1.5 % 11/13/2024 12:36 PM [facility] Immature Grans % 0.7(H) 0.0 - 0.5 % 11/13/2024 12:36 PM [facility] Neutrophils, Absolute 3.44 1.70 - 7.00 10*3/mm3 11/13/2024 12:36 PM [facility] Lymphocytes, Absolute 1.26 0.70 - 3.10 10*3/mm3 11/13/2024 12:36 PM [facility] Monocytes, Absolute 0.48 0.10 - 0.90 10*3/mm3 11/13/2024 12:36 PM [facility] Eosinophils, Absolute 0.15 0.00 - 0.40 10*3/mm3 11/13/2024 12:36 PM [facility] Basophils, Absolute 0.04 0.00 - 0.20 10*3/mm3 11/13/2024 12:36 PM [facility] Immature Grans, Absolute 0.04 0.00 - 0.05 10*3/mm3 11/13/2024 12:36 PM [facility] nRBC 0.0 0.0 - 0.2 /100 WBC 11/13/2024 12:36 PM [facility] Blood Venipuncture / Unknown 11/13/2024 12:07 PM EDT 11/13/2024 12:26 PM EDT Aaliyah Jha RUBEN LAB BLOOD ORDERABLES Final Re sult Performing Organization Address City/[facility]/ZIP Co de Phone Number [facility]
[address] [place] [address], * (ABNORMAL) Reticulocytes (11/13/2024 12:07 PM EDT) Reticulocyte % 2.78(H) 0.70 - 1.90 % 11/13/2024 12:32 PM EDT [facility] Reticulocyte Absolute 0.1081 0.0200 - 0.1300 10*6/mm3 11/13/2024 12:32 PM EDT [facility] Blood Venipuncture / Unknown 11/13/2024 12:07 PM EDT 11/13/2024 12:26 PM EDT Aaliyahcolleen Jha APRN LAB BLOOD ORDERABLES Final Re sult [facility]
[address] [place] [address], * Folate RBC (11/13/2024 12:07 PM EDT) Folate, Hemolysate 538.0 Not Estab. ng/mL 11/16/2024 9:09 AM EDT [facility] Hematocrit 40.7 34.0 - 46.6 % 11/16/2024 9:09 AM EDT [facility] RBC Folate 1322 >498 ng/mL 11/16/2024 9:09 AM EDT [facility] Blood Venipuncture / Unknown 11/13/2024 12:07 PM EDT 11/13/2024 12:26 PM EDT Narrative [facility] - 11/16/2024 9:09 AM EDT Performed at: 01 - [facility] [address] [place], [place] [id number] Roller Leveler: Gomez Crooks PhD, Phone: [phone] Aaliyah Jha APRN LAB BLOOD ORDERABLES Edited R esult - Final [facility] [address] [place] [address], [place] [phone] * TSH (11/13/2024 12:07 PM EDT) Pathologist [facility] TSH 2.770 0.270 - 4.200 uIU/mL 11/13/2024 12:56 PM EDT [facility] Blood Venipuncture / Unknown 11/13/2024 12:07 PM EDT 11/13/2024 12:26 PM EDT Aaliyah Jha APRN LAB BLOOD ORDERABLES Final Re sult Performing Organization Address [facility]/ZIP Co de Phone Number [facility]
[address] [place] [address], * (ABNORMAL) Hemoglobin A1c (11/13/2024 12:07 PM EDT) Pathologist [facility] Hemoglobin A1C 5.84(H) 4.80 - 5.60 % 11/13/2024 1:23 PM EDT [facility] Blood Venipuncture / Unknown 11/13/2024 12:07 PM EDT 11/13/2024 12:26 PM EDT Narrative [facility] - 11/13/2024 1:23 PM EDT Hemoglobin A1C Ranges: Increased Risk for Diabetes 5.7% to 6.4% Diabetes >= 6.5% Diabetic Goal < 7.0% Aaliyahcolleen Jha APRN LAB BLOOD ORDERABLES Final Re sult Performing Organization Address City/[facility]/ZIP Co de Phone Number [facility]
[address] [place] [address], [place] [phone] * Magnesium (11/13/2024 12:07 PM EDT) Magnesium 1.9 1.6 - 2.4 mg/dL 11/13/2024 12:56 PM EDT [facility] Blood Venipuncture / Unknown 11/13/2024 12:07 PM EDT 11/13/2024 12:26 PM EDT Aaliyah Jha APRN LAB BLOOD ORDERABLES Final Re sult [facility]
[address] [place] [address], * (ABNORMAL) Basic Metabolic Panel (11/13/2024 12:07 PM EDT) Glucose 100(H) 65 - 99 mg/dL 11/13/2024 12:56 PM EDT [facility] BUN 19.7 8.0 - 23.0 mg/dL 11/13/2024 12:56 PM EDT [facility] Creatinine 0.93 0.57 - 1.00 mg/dL 11/13/2024 12:56 PM EDT [facility] Sodium 143 136 - 145 mmol/L 11/13/2024 12:56 PM EDT [facility] Potassium 3.8 3.5 - 5.2 mmol/L 11/13/2024 12:56 PM EDT [facility] Chloride 102 98 - 107 mmol/L 11/13/2024 12:56 PM EDT [facility] CO2 31.1(H) 22.0 - 29.0 mmol/L 11/13/2024 12:56 PM EDT [facility] Calcium 8.6 8.6 - 10.5 mg/dL 11/13/2024 12:56 PM EDT [facility] BUN/Creatinine Ratio 21.2 7.0 - 25.0 11/13/2024 12:56 PM EDT [facility] Anion Gap 9.9 5.0 - 15.0 mmol/L 11/13/2024 12:56 PM EDT [facility] eGFR 67.9 >60.0 mL/min/1.7 3 11/13/2024 12:56 PM EDT [facility] Blood Venipuncture / Unknown 11/13/2024 12:07 PM EDT 11/13/2024 12:26 PM EDT Narrative [facility] - 11/13/2024 12:56 PM EDT GFR Categories in Chronic Kidney [...] does not include race as a factor us Aaliyah Jha DIRECTOR OF CARDIOLOGY LAB BLOOD ORDERABLES Final Re sult [facility]
[address] [place] [address], * Duplex Venous Lower Extremity - Bilateral CAR (11/13/2024 8:50 AM EDT) Right Common Femoral Spont Y Right Common Femoral Phasic Y Right Common Femoral Compress C Right Saphenofemoral Junction Spont Y Right Saphenofemoral Junction Phasic Y Right Saphenofemoral Junction Compress C Right Profunda Femoral Spont Y Right Profunda Femoral Phasic Y Right Proximal Femoral Spont Y Right Proximal Femoral Phasic Y Right Proximal Femoral Compress C Right Mid Femoral Spont Y Right Mid Femoral Phasic Y Right Mid Femoral Compress C Right Distal Femoral Spont Y Right Distal Femoral Phasic Y Right Distal Femoral Compress C Right Popliteal Spont Y Right Popliteal Phasic Y Right Popliteal Compress C Right Posterior Tibial Compress C Right Posterior Tibial Augment Y Right Peroneal Compress C Right Peroneal Augment Y Right Gastronemius Compress C Right Greater Saph AK Compress C Right Greater Saph BK Compress C Right Lesser Saph Compress C Left Common Femoral Spont Y Left Common Femoral Phasic Y Left Common Femoral Compress C Left Saphenofemoral Junction Spont Y Left Saphenofemoral Junction Phasic Y Left Saphenofemoral Junction Compress C Left Profunda Femoral Spont Y Left Profunda Femoral Phasic Y Left Proximal Femoral Spont Y Left Proximal Femoral Phasic Y Left Proximal Femoral Compress C Left Mid Femoral Spont Y Left Mid Femoral Phasic Y Left Mid Femoral Compress C Left Distal Femoral Spont Y Left Distal Femoral Phasic Y Left Distal Femoral Compress C Left Popliteal Spont Y Left Popliteal Phasic Y Left Popliteal Compress C Left Posterior Tibial Compress C Left Posterior Tibial Augment Y Left Peroneal Compress C Left Peroneal Augment Y Left Gastronemius Compress C Left Greater Saph BK Compress C Left Lesser Saph Compress C Anatomical Region Laterality Modality Ultrasound Narrative 11/13/2024 4:41 PM EDT This study is negative for DVT of the right or left lower extremity. Study Findings - Right Right sided additional findings: All RLE deep and superficial veins appear patent and compressible during time of exam. No sonographic evidence of thrombus seen. No prior exam for comparison. Study Findings - Left Left sided additional findings: All LLE deep and superficial veins appear patent and compressible during time of exam. No sonographic evidence of thrombus seen. No prior exam for comparison. Additional Study Details Study performed at bedside. The study is technically adequate for diagnosis. The quality of the study is limited due to patient positioning. us Vasu Mckeon MD CV VASCULAR ORDERABLES F inal Result * ECG 12 Lead Dyspnea (11/13/2024 5:53 AM EDT) [facility] QT Interval 410 ms ECG QTC Interval 470 ms ECG 11/13/2024 5:53 AM EDT 11/13/2024 7:39 PM EDT Narrative ECG - 11/13/2024 7:39 PM EDT Test Reason : Dyspnea Blood Pressure : */* mmHG Vent. Rate : 79 BPM Atrial Rate : 79 BPM P-R Int : 146 ms QRS Dur : 92 ms QT Int : 410 ms P-R-T Axes : 68 62 55 degrees QTcB Int : 470 ms Normal sinus rhythm Normal ECG When compared with ECG of 12-Nov-2024 16:45, (Unconfirmed) No significant change was found Confirmed by ABDULLAHI HENDRICKSON ([id number]) on 11/13/2024 7:39:07 PM Referred By: Confirmed By: ABDULLAHI HENDRICKSON Procedure Note Abdullahi Hendrickson MD - 11/13/2024 Test Reason : Dyspnea Blood Pressure : */* mmHG Vent. 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 Swab in UTM/VTM, 2 HR TAT - Swab, Nasopharynx (11/13/2024 3:26 AM EDT) ADENOVIRUS, PCR Not Detected Not Detected [facility] 11/13/2024 4:48 AM EDT [facility] Coronavirus 229E Not Detected Not Detected [facility] 11/13/2024 4:48 AM EDT [facility] Coronavirus HKU1 Not Detected Not Detected [facility] 11/13/2024 4:48 AM EDT [facility] Coronavirus NL63 Not Detected Not Detected [facility] 11/13/2024 4:48 AM EDT [facility] Coronavirus OC43 Not Detected Not Detected [facility] 11/13/2024 4:48 AM EDT [facility] COVID19 Not Detected Not Detected - Ref. Range [facility] 11/13/2024 4:48 AM EDT [facility] Human Metapneumovirus Not Detected Not Detected [facility] 11/13/2024 4:48 AM EDT [facility] Human Rhinovirus/Enterov irus Not Detected Not Detected [facility] 11/13/2024 4:48 AM EDT [facility] Influenza A PCR Not Detected Not Detected [facility] 11/13/2024 4:48 AM EDT [facility] Influenza B PCR Not Detected Not Detected [facility] 11/13/2024 4:48 AM EDT [facility] Parainfluenza Virus 1 Not Detected Not Detected [facility] 11/13/2024 4:48 AM EDT [facility] Parainfluenza Virus 2 Not Detected Not Detected [facility] 11/13/2024 4:48 AM EDT [facility] Parainfluenza Virus 3 Not Detected Not Detected [facility] 11/13/2024 4:48 AM EDT [facility] Parainfluenza Virus 4 Not Detected Not Detected [facility] 11/13/2024 4:48 AM EDT [facility] RSV, PCR Not Detected Not Detected [facility] 11/13/2024 4:48 AM EDT [facility] Bordetella pertussis pcr Not Detected Not Detected [facility] 11/13/2024 4:48 AM EDT [facility] Bordetella parapertussis PCR Not Detected Not Detected [facility] 11/13/2024 4:48 AM EDT [facility] Chlamydophila pneumoniae PCR Not Detected Not Detected [facility] 11/13/2024 4:48 AM EDT [facility] Mycoplasma pneumo by PCR Not Detected Not Detected [facility] 11/13/2024 4:48 AM EDT [facility] Swab Nasopharyngeal structure / Unknown Collection / Unknown 11/13/2024 3:26 AM EDT 11/13/2024 4:00 AM EDT Narrative [facility] - 11/13/2024 4:48 AM EDT In the setting of a positive respiratory panel with a viral infection PLUS a negative procalcitonin without other underlying concern for bacterial infection, consider observing off antibiotics or discontinuation of antibiotics and continue supportive care. If the respiratory panel is positive for atypical bacterial infection (Bordetella pertussis, Chlamydophila pneumoniae, or Mycoplasma pneumoniae), consider antibiotic de-escalation to target atypical bacterial infection. Aaliyah Jha APRN MICROBIOLOGY - GENERAL ORDERA BLES Final Result [facility]
[address] [place] [address], * (ABNORMAL) Blood Gas, Venous With Co-Ox (11/12/2024 11:16 PM EDT) Site Nurse/Dr Mathias 11/12/2024 11:17 PM EDT [facility] pH, Venous 7.337 7.310 - 7.410 pH Units 11/12/2024 11:17 PM EDT [facility] pCO2, Venous 59.6(H) 41.0 - 51.0 mm Hg 11/12/2024 11:17 PM EDT [facility] Comment:83 Value above refer ence range pO2, Venous 30.4 27.0 - 53.0 mm Hg 11/12/2024 11:17 PM EDT [facility] HCO3, Venous 31.9(H) 22.0 - 28.0 mmol/L 11/12/2024 11:17 PM EDT [facility] Base Excess, Venous 5.0(H) -2.0 - 2.0 mmol/L 11/12/2024 11:17 PM EDT [facility] Hemoglobin, Blood Gas 9.3(L) 14 - 18 g/dL 11/12/2024 11:17 PM EDT [facility] Oxyhemoglobin Venous 48.3 % 06/2024 11:17 PM EDT [facility] Methemoglobin Venous 0.4 % 06/2024 11:17 PM EDT [facility] Carboxyhemoglobin Venous 1.7 % 11/12/2024 11:17 PM EDT [facility] CO2 Content 33.7(H) 22 - 33 mmol/L 11/12/2024 11:17 PM EDT [facility] Temperature 37.0 11/12/2024 11:17 PM EDT [facility] Barometric Pressure for Blood Gas 11/12/2024 11:17 PM EDT [facility] Comment:N/A Modality Nasal Cannula 11/12/2024 11:17 PM EDT [facility] FIO2 28 % 11/12/2024 11:17 PM EDT [facility] Rate 0 Breaths/ minute 11/12/2024 11:17 PM EDT [facility] PIP 0 cmH2O 11/12/2024 11:17 PM EDT [facility] Comment:Meter: [id number] Manager Shipping: [id number] IPAP 0 11/12/2024 11:17 PM EDT [facility] EPAP 0 11/12/2024 11:17 PM EDT [facility] Venous Blood 11/12/2024 11:1 6 PM EDT 11/12/2024 11:16 PM EDT us Vasu Mckeon MD LAB BLOOD ORDERABLES Fin al Result [facility]
[address] [place] [address], * CT Angiogram Chest Pulmonary Embolism (11/12/2024 7:46 PM EDT) Anatomical Region Laterality Modality Chest N/A Computed Tomogra phy 11/12/2024 8:22 PM EDT Impressions 11/12/2024 8:31 PM EDT No evidence of pulmonary embolus. No acute abnormality. Electronically Signed: Jed Machuca MD 11/12/2024 8:31 PM EDT Workstation ID: [id number] Narrative 11/12/2024 8:[address] ANGIOGRAM CHEST PULMONARY EMBOLISM Date of Exam: 11/12/2024 7:35 PM EDT Indication: Shortness of Breath. Comparison: None available. Technique: Axial CT images were obtained of the chest after the uneventful intravenous administration of iodinated contrast utilizing pulmonary embolism protocol. In addition, a 3-D volume rendered image was created for interpretation. Reconstructed coronal and sagittal images were also obtained. Automated exposure control and iterative construction methods were used. Findings: Pulmonary Arteries: Pulmonary artery is borderline enlarged. No evidence of pulmonary embolus Hilum and Mediastinum: No evidence of adenopathy. Heart size is normal. There is moderate coronary artery calcification. Lung Parenchyma and Pleura: There is moderate centrilobular emphysema. Central airways are patent there is atelectasis and scarring lingula and middle lobe. 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 Osseous structures: No aggressive focal lytic or sclerotic osseous lesions. Procedure Note Jed Machuca MD - 11/12/2024 CT ANGIOGRAM CHEST PULMONARY EMBOLISM Date of Exam: 11/12/2024 7:35 PM EDT Indication: Shortness of Breath. Comparison: None available. Technique: Axial CT images were obtained of the chest after the uneventfulintravenous administration of iodinated contrast utilizing pulmonaryembolism protocol. In addition, a 3-D volume rendered image was createdfor interpretation. Reconstructed coronal and sagittal images were also obtained. Automated exposure controland iterative construction methods were used. Findings: Pulmonary Arteries: Pulmonary artery is borderline enlarged. No evidenceof pulmonary embolus Hilum and Mediastinum: No evidence of adenopathy. Heart size is normal.There is moderate coronary artery calcification. Lung Parenchyma and Pleura: There is moderate centrilobular emphysema.Central airways are patent there is atelectasis and scarring lingula andmiddle lobe. 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 Osseous structures: No aggressive focal lytic or sclerotic osseouslesions. IMPRESSION: No evidence of pulmonary embolus. No acute abnormality. Electronically Signed: Jed Machuca MD 11/12/2024 8:31 PM EDT Workstation ID: [id number] Vasu Mckeon MD IMG CT ORDERABLES Final Result * COVID-19, FLU A/B, RSV PCR 1 HR TAT - Swab, Nasopharynx (11/12/2024 7:21 PM EDT) Pathologist [facility] COVID19 Not Detected Not Detected - Ref. Range CEPHEID [employer]EXPERT 11/12/2024 8:24 PM EDT [facility] Influenza A PCR Not Detected Not Detected CEP[employer]ID [employer]EXP[employer] 11/12/2024 8:24 PM EDT [facility] Influenza B PCR Not Detected Not Detected CEPHEID [employer]EXP[employer] 11/12/2024 8:24 PM EDT [facility] RSV, PCR Not Detected Not Detected CEPHEID GENEXPERT 11/12/2024 8:24 PM EDT [facility] Swab Nasopharyngeal structure / Unknown Collection / Unknown 11/12/2024 7:21 PM EDT 11/12/2024 7:46 PM EDT Vasu Mckeon MD MICROBIOLOGY - GENERAL O RDERABLES Final Result [facility]
[address] [place] [address], * Sodium, Urine, Random - Urine, Clean Catch (11/12/2024 7:20 PM EDT) Pathologist [facility] Sodium, Urine <20 mmol/L 11/13/2024 3:37 AM EDT [facility] Urine Urine specimen obtained by clean catch procedure / Unknown Collection / Unknown 11/12/2024 7:20 PM EDT 11/12/2024 7:46 PM EDT Narrative [facility] - 11/13/2024 3:37 AM EDT Reference intervals for random urine have not been established. Clinical usage is dependent upon physician's interpretation in combination with other laboratory tests. us Aaliyah Jha APRN URINE ORDERABLES Final Result Performing Organization Address City/[facility]/ZIP Co de Phone Number [facility]
[address] [place] [address], [place] [phone] * Osmolality, Urine - Urine, Clean Catch (11/12/2024 7:20 PM EDT) Osmolality, Urine 837 300 - 1,100 mOsm/kg 11/13/2024 4:00 AM EDT [facility] Urine Urine specimen obtained by clean catch procedure / Unknown Collection / Unknown 11/12/2024 7:20 PM EDT 11/12/2024 7:46 PM EDT us Aaliyah Jha APRN URINE ORDERABLES Final Result Performing Organization Address [facility] Co de Phone Number [facility]
[address] [place] [address], [place] [phone] * Creatinine Urine Random (kidney function) GFR component - Urine, Clean Catch (11/12/2024 7:20 PM EDT) Creatinine, Urine 276.6 mg/dL 11/13/2024 9:46 AM EDT [facility] Urine Urine specimen obtained by clean catch procedure / Unknown Collection / Unknown 11/12/2024 7:20 PM EDT 11/13/2024 3:13 AM EDT [facility] - 11/13/2024 9:46 AM EDT Reference intervals for random urine have not been established. Clinical usage is dependent upon physician's interpretation in combination with other laboratory tests. us Aaliyah Jha APRN URINE ORDERABLES Final Result Performing Organization Address City/[facility]/ZIP Co de Phone Number [facility]
[address] [place] [address], [place] [phone] * Urine Culture - Urine, Urine, Clean Catch (11/12/2024 7:20 PM EDT) Urine Culture No growth [id number] 11/14/2024 12:26 PM EDT [facility] Urine Urine specimen obtained by clean catch procedure / Unknown Collection / Unknown 11/12/2024 7:20 PM EDT 11/13/2024 12:57 AM EDT Vasu Mckeon MD MICROBIOLOGY - GENERAL O RDERABLES Final Result [facility]
[address] [place] [address], * (ABNORMAL) Urinalysis, Microscopic Only - Urine, Clean Catch (11/12/2024 7:20 PM EDT) RBC, UA 0-2 None Seen, 0-2 /HPF 11/12/2024 8:00 PM EDT [facility] WBC, UA 11-20(A) None Seen, 0-2 /HPF 11/12/2024 8:00 PM EDT [facility] Bacteria, UA None Seen None Seen /HPF 11/12/2024 8:00 PM EDT [facility] Squamous Epithelial Cells, UA 3-6(A) None Seen, 0-2 /HPF 11/12/2024 8:00 PM EDT [facility] Hyaline Casts, UA 0-2 None Seen /LPF 11/12/2024 8:00 PM EDT [facility] Methodology Automated Microscopy 11/12/2024 8:00 PM EDT [facility] Urine Urine specimen obtained by clean catch procedure / Unknown Collection / Unknown 11/12/2024 7:20 PM EDT 11/12/2024 7:46 PM EDT Vasu Mckeon MD URINE ORDERABLES Final R esult [facility]
[address] [place] [address], * (ABNORMAL) Urinalysis With Microscopic If Indicated (No Culture) - Urine, Clean Catch (11/12/2024 7:20 PM EDT) Color, UA Yellow Yellow, Straw 11/12/2024 8:00 PM EDT [facility] Appearance, UA Clear Clear 11/12/2024 8:00 PM EDT [facility] pH, UA 5.5 5.0 - 8.0 11/12/2024 8:00 PM EDT [facility] Specific [place], UA >1.030(H) 1.005 - 1.030 11/12/2024 8:00 PM EDT [facility] Glucose, UA Negative Negative 11/12/2024 8:00 PM EDT [facility] Ketones, UA Negative Negative 11/12/2024 8:00 PM EDT [facility] Bilirubin, UA Negative Negative 11/12/2024 8:00 PM EDT [facility] Blood, UA Negative Negative 11/12/2024 8:00 PM EDT [facility] Protein, UA Trace(A) Negative 11/12/2024 8:00 PM EDT [facility] Leuk Esterase, UA Small (1+)(A) Negative 11/12/2024 8:00 PM EDT [facility] Nitrite, UA Negative Negative 11/12/2024 8:00 PM EDT [facility] Urobilinogen, UA 1.0 E.U./dL 0.2 - 1.0 E.U./dL 11/12/2024 8:00 PM EDT [facility] Urine Urine specimen obtained by clean catch procedure / Unknown Collection / Unknown 11/12/2024 7:20 PM EDT 11/12/2024 7:46 PM EDT Vasu Mckeon MD URINE ORDERABLES Final R esult Performing Organization Address [facility]/ZIP Co de Phone Number [facility]
[address] [place] [address], [place] [phone] * Ferritin (11/12/2024 7:16 PM EDT) Ferritin 13.80 13.00 - 150.00 ng/mL 11/13/2024 3:24 AM EDT [facility] Blood Venipuncture / Unknown 11/12/2024 7:16 PM EDT 11/13/2024 2:57 AM EDT Narrative [facility] - 11/13/2024 3:24 AM EDT Results may be falsely decreased if patient taking Biotin. Aaliyah Jha APRN LAB BLOOD ORDERABLES Final Re sult Performing Organization Address [facility] Co de Phone Number [facility]
[address] [place] [address], [place] [phone] * (ABNORMAL) Iron Profile w/o Ferritin (11/12/2024 7:16 PM EDT) Iron 21(L) 37 - 145 mcg/dL 11/13/2024 3:24 AM EDT [facility] Iron Saturation (TSAT) 4(L) 20 - 50 % 11/13/2024 3:24 AM EDT [facility] Transferrin 321 200 - 360 mg/dL 11/13/2024 3:24 AM EDT [facility] TIBC 478 298 - 536 mcg/dL 11/13/2024 3:24 AM EDT [facility] Blood Venipuncture / Unknown 11/12/2024 7:16 PM EDT 11/13/2024 2:57 AM EDT us Aaliyah Jha APRN LAB BLOOD ORDERABLES Final Re sult Performing Organization Address City/[facility]/ZIP Co de Phone Number [facility]
[address] [place] [address], * (ABNORMAL) High Sensitivity Troponin T 1Hr (11/12/2024 7:16 PM EDT) HS Troponin T 16(H) <14 ng/L 11/12/2024 7:53 PM EDT [facility] Troponin T Numeric Delta -1 ng/L 11/12/2024 7:53 PM EDT [facility] Troponin T % Delta -6 Abnormal if >/= 20% 11/12/2024 7:53 PM EDT [facility] Blood Line / Unknown 11/12/2024 7: 16 PM EDT 11/12/2024 7:20 PM EDT Narrative [facility] - 11/12/2024 7:53 PM EDT High Sensitive Troponin T Reference Range: <14.0 ng/L- Negative Female for AMI <22.0 ng/L- Negative Male for AMI >=14 - Abnormal Female indicating possible myocardial injury. >=22 - Abnormal Male indicating possible myocardial injury. Clinicians would have to utilize clinical acumen, EKG, Troponin, and serial changes to determine if it is an Acute Myocardial Infarction or myocardial injury due to an underlying chronic condition. Vasu Mckeon MD LAB BLOOD ORDERABLES Fin al Result [facility]
[address] [place] [address], * XR Chest 1 View (11/12/2024 6:30 PM EDT) Anatomical Region Laterality Modality Body N/A Radiographic Tatyana ging 11/12/2024 7:00 PM EDT Impressions 11/12/2024 7:02 PM EDT Impression: 1. No acute cardiopulmonary disease. Electronically Signed: Arben Neely MD 11/12/2024 7:02 PM EDT Workstation ID: [id number] Narrative 11/12/2024 7:02 PM EDT XR CHEST 1 VW Date of Exam: 11/12/2024 6:28 PM EDT Indication: SOA triage protocol. Comparison: 07/16/2024 Findings: Heart size at the upper limits of normal. Pulmonary vessels normal. Lungs are clear. No pleural effusion. No pneumothorax. Procedure Note Nithin Neely MD - 11/12/2024 XR CHEST 1 VW Date of Exam: 11/12/2024 6:28 PM EDT Indication: SOA triage protocol. Comparison: 07/16/2024 Findings: Heart size at the upper limits of normal. Pulmonary vessels normal. Lungsare clear. No pleural effusion. No pneumothorax. IMPRESSION: Impression: 1. No acute cardiopulmonary disease. Electronically Signed: Arben Neely MD 11/12/2024 7:02 PM EDT Workstation ID: [id number] Vasu Mckeon MD IMG DIAGNOSTIC IMAGING O RDERABLES Final Result * (ABNORMAL) Vitamin B12 (11/12/2024 5:17 PM EDT) [facility] Vitamin B-12 1,669(H) 211 - 946 pg/mL 11/13/2024 9:54 AM EDT [facility] Blood Venipuncture / Unknown 11/12/2024 5:17 PM EDT 11/13/2024 2:59 AM EDT Narrative [facility] - 11/13/2024 9:54 AM EDT Results may be falsely increased if patient taking Biotin. Aaliyah Jha APRN LAB BLOOD ORDERABLES Final Re sult [facility]
[address] [place] [address], * Folate (11/12/2024 5:17 PM EDT) [facility] Folate >20.00 4.78 - 24.20 ng/mL 11/13/2024 9:54 AM EDT [facility] Blood Venipuncture / Unknown 11/12/2024 5:17 PM EDT 11/13/2024 2:59 AM EDT Narrative [facility] - 11/13/2024 9:54 AM EDT Results may be falsely increased if patient taking Biotin. Aaliyah Jha APRN LAB BLOOD ORDERABLES Final Re sult Performing Organization Address City/[facility]/ZIP Co de Phone Number [facility]
[address] [place] [address], * Scan Slide (11/12/2024 5:17 PM EDT) Anisocytosis Slight/1+ None Seen 11/12/2024 6:07 PM EDT [facility] Hypochromia Slight/1+ None Seen 11/12/2024 6:07 PM EDT [facility] Microcytes Mod/2+ None Seen 11/12/2024 6:07 PM EDT [facility] WBC Morphology Normal Normal 11/12/2024 6:07 PM EDT [facility] Platelet Morphology Normal Normal 11/12/2024 6:07 PM EDT [facility] Blood Venipuncture / Unknown 11/12/2024 5:17 PM EDT 11/12/2024 5:17 PM EDT Vasu Mckeon MD LAB BLOOD ORDERABLES Fin al Result Performing Organization Address City/[facility]/ZIP Co de Phone Number [facility]
[address] [place] [address], [place] [phone] * Magnesium (11/12/2024 5:17 PM EDT) Magnesium 1.9 1.6 - 2.4 mg/dL 11/12/2024 5:51 PM EDT [facility] Blood Venipuncture / Unknown 11/12/2024 5:17 PM EDT 11/12/2024 5:17 PM EDT Vasu Mckeon MD LAB BLOOD ORDERABLES Fin al Result [facility]
[address] [place] [address], * Phosphorus (11/12/2024 5:17 PM EDT) Phosphorus 4.1 2.5 - 4.5 mg/dL 11/12/2024 5:51 PM EDT [facility] Blood Venipuncture / Unknown 11/12/2024 5:17 PM EDT 11/12/2024 5:17 PM EDT Vasu Mckeon MD LAB BLOOD ORDERABLES Fin al Result Performing Organization Address [facility] Phone Number [facility]
[address] [place] [address], * TSH Rfx On Abnormal To Free T4 (11/12/2024 5:17 PM EDT) TSH 2.480 0.270 - 4.200 uIU/mL 11/12/2024 5:51 PM EDT [facility] Blood Venipuncture / Unknown 11/12/2024 5:17 PM EDT 11/12/2024 5:17 PM EDT Vasu Mckeon MD LAB BLOOD ORDERABLES Fin al Result Performing Organization Address [facility]/ZIP Co de Phone Number [facility]
[address] [place] [address], * Lipase (11/12/2024 5:17 PM EDT) Lipase 20 13 - 60 U/L 11/12/2024 5:51 PM EDT [facility] Blood Venipuncture / Unknown 11/12/2024 5:17 PM EDT 11/12/2024 5:17 PM EDT Vasu Mckeon MD LAB BLOOD ORDERABLES Fin al Result Performing Organization Address City/[facility]/ZIP Co de Phone Number [facility]
[address] [place] [address], * Lactic Acid, Plasma (11/12/2024 5:17 PM EDT) Pathologist [facility] Lactate 1.6 0.5 - 2.0 mmol/L 11/12/2024 5:49 PM EDT [facility] Comment:Falsely depressed re sults may occur on samples drawn from patients receiving N-Acetylcysteine (NAC) or Metamizole. Blood Venipuncture / Unknown 11/12/2024 5:17 PM EDT 11/12/2024 5:17 PM EDT Vasu Mckeon MD LAB BLOOD ORDERABLES Fin al Result Performing Organization Address [facility] Co de Phone Number [facility]
[address] [place] [address], * (ABNORMAL) D-dimer, Quantitative (11/12/2024 5:17 PM EDT) Pathologist [facility] D-Dimer, Quantitative 10.36(H) 0.00 - 0.66 MCGFEU/mL 11/12/2024 6:00 PM EDT [facility] Blood Venipuncture / Unknown 11/12/2024 5:17 PM EDT 11/12/2024 5:17 PM EDT Narrative [facility] - 11/12/2024 6:00 PM EDT According to the assay direct marketing specialist's published package insert, a normal (<0.50 MCGFEU/mL) D-dimer result in conjunction with a non-high clinical probability assessment, excludes deep vein thrombosis (DVT) and pulmonary embolism (PE) with high sensitivity. D-dimer values increase with age and this can make VTE exclusion of an older population difficult. To address this, the [employer], based on best available evidence and recent guidelines, recommends that clinicians use age-adjusted D-dimer thresholds in patients greater than 50 years of age with: a) a low probability of PE who do not meet all Pulmonary Embolism Rule Out Criteria, or b) in those with intermediate probability of PE. The formula for an age-adjusted D-dimer cut-off is age/100 . For example, a 60 year old patient would have an age-adjusted cut-off of 0.60 MCGFEU/mL and an 80 year old 0.80 MCGFEU/mL. us Vasu Mckeon MD LAB BLOOD ORDERABLES Fin al Result [facility]
[address] [place] [address], * (ABNORMAL) CBC Auto Differential (11/12/2024 5:17 PM EDT) [facility] WBC 5.82 3.40 - 10.80 10*3/mm3 11/12/2024 6:07 PM EDT [facility] RBC 4.33 3.77 - 5.28 10*6/mm3 11/12/2024 6:07 PM EDT [facility] Hemoglobin 9.0(L) 12.0 - 15.9 g/dL 11/12/2024 6:07 PM EDT [facility] Hematocrit 32.5(L) 34.0 - 46.6 % 11/12/2024 6:07 PM EDT [facility] MCV 75.1(L) 79.0 - 97.0 fL 11/12/2024 6:07 PM EDT [facility] MCH 20.8(L) 26.6 - 33.0 pg 11/12/2024 6:07 PM EDT [facility] MCHC 27.7(L) 31.5 - 35.7 g/dL 11/12/2024 6:07 PM EDT [facility] RDW 19.1(H) 12.3 - 15.4 % 11/12/2024 6:07 PM [facility] RDW-SD 51.8 37.0 - 54.0 fl 11/[facility] MPV 9.5 6.0 - 12.0 fL 11/12/2024 [facility] Platelets 240 140 - 450 10*3/mm3 11/12/2024 6:07 PM EDT [facility] Neutrophil % 58.8 42.7 - 76.0 % 11/12/2024 6:07 PM [facility] Lymphocyte % 26.5 19.6 - 45.3 % 11/12/2024 6:07 PM [facility] Monocyte % 7.6 5.0 - 12.0 % 11/12/2024 6:07 PM [facility] Eosinophil % 5.5 0.3 - 6.2 % 11/12/2024 6:[facility] Basophil % 0.7 0.0 - 1.5 % 11/12/2024 6:07 PM [facility] Immature Grans % 0.9(H) 0.0 - 0.5 % 11/12/2024 6:07 PM [facility] Neutrophils, Absolute 3.43 1.70 - 7.00 10*3/mm3 11/12/2024 6:07 PM [facility] Lymphocytes, Absolute 1.54 0.70 - 3.10 10*3/mm3 11/12/2024 6:07 PM [facility] Monocytes, Absolute 0.44 0.10 - 0.90 10*3/mm3 11/12/2024 6:[facility] Eosinophils, Absolute 0.32 0.00 - 0.40 10*3/mm3 11/12/2024 6:07 PM [facility] Basophils, Absolute 0.04 0.00 - 0.20 10*3/mm3 11/12/2024 6:07 PM EDT [facility] Immature Grans, Absolute 0.05 0.00 - 0.05 10*3/mm3 11/12/2024 6:07 PM EDT [facility] nRBC 0.0 0.0 - 0.2 /100 WBC 11/12/2024 6:07 PM EDT [facility] Blood Venipuncture / Unknown 11/12/2024 5:17 PM EDT 11/12/2024 5:17 PM EDT Narrative [facility] - 11/12/2024 6:07 PM EDT Appended report. These results have been appended to a previously verified report. us Vasu Mckeon MD LAB BLOOD ORDERABLES Fin al Result Performing Organization Address City/[facility]/ZIP Co de Phone Number [facility]
[address] [place] [address], * Light Blue Top (11/12/2024 5:17 PM EDT) Extra Tube Hold for add-ons. 11/12/2024 5:31 PM EDT [facility] Comment:Auto resulted Blood Venipuncture / Unknown 11/12/2024 5:17 PM EDT 11/12/2024 5:17 PM EDT Vasu Mckeon MD LAB BLOOD ORDER ONLY Fin al Result [facility]
[address] [place] [address], [place] [phone] * Castellano Top (11/12/2024 5:17 PM EDT) Extra Tube Hold for add-ons. 11/12/2024 5:32 PM EDT [facility] Comment:Auto resulted. Blood Venipuncture / Unknown 11/12/2024 5:17 PM EDT 11/12/2024 5:17 PM EDT Vasu Mckeon MD LAB BLOOD ORDER ONLY Fin al Result Performing Organization Address City/[facility]/ZIP Co de Phone Number [facility]
[address] [place] [address], * Gold Top - SST (11/12/2024 5:17 PM EDT) Extra Tube Hold for add-ons. 11/12/2024 5:32 PM EDT [facility] Comment:Auto resulted. Blood Venipuncture / Unknown 11/12/2024 5:17 PM EDT 11/12/2024 5:17 PM EDT Vasu Mckeon MD LAB BLOOD ORDER ONLY Fin al Result Performing Organization Address [facility] de Phone Number [facility]
[address] [place] [address], * Lavender Top (11/12/2024 5:17 PM EDT) Extra Tube hold for add-on 11/12/2024 5:31 PM EDT [facility] Comment:Auto resulted Blood Venipuncture / Unknown 11/12/2024 5:17 PM EDT 11/12/2024 5:17 PM EDT Vasu Mckeon MD LAB BLOOD ORDER ONLY Fin al Result Performing Organization Address [facility] Co de Phone Number [facility]
[address] [place] [address], * Green Top (Gel) (11/12/2024 5:17 PM EDT) Extra Tube Hold for add-ons. 11/12/2024 5:31 PM EDT [facility] Comment:Auto resulted. Blood Venipuncture / Unknown 11/12/2024 5:17 PM EDT 11/12/2024 5:17 PM EDT Vasu Mckeon MD LAB BLOOD ORDER ONLY Fin al Result Performing Organization Address [facility] de Phone Number [facility]
[address] [place] [address], * (ABNORMAL) High Sensitivity Troponin T (11/12/2024 5:17 PM EDT) HS Troponin T 17(H) <14 ng/L 11/12/2024 5:51 PM EDT [facility] Blood Venipuncture / Unknown 11/12/2024 5:17 PM EDT 11/12/2024 5:17 PM EDT [facility] - 11/12/2024 5:51 PM EDT High Sensitive Troponin T Reference Range: <14.0 ng/L- Negative Female for AMI <22.0 ng/L- Negative Male for AMI >=14 - Abnormal Female indicating possible myocardial injury. >=22 - Abnormal Male indicating possible myocardial injury. Clinicians would have to utilize clinical acumen, EKG, Troponin, and serial changes to determine if it is an Acute Myocardial Infarction or myocardial injury due to an underlying chronic condition. Vasu Mckeon MD LAB BLOOD ORDERABLES Fin al Result Performing Organization Address City/[facility] Co de Phone Number [facility]
[address] [place] [address], [place] [phone] * BNP (11/12/2024 5:17 PM EDT) proBNP 247.0 0.0 - 900.0 pg/mL 11/12/2024 5:51 PM EDT [facility] Blood Venipuncture / Unknown 11/12/2024 5:17 PM EDT 11/12/2024 5:17 PM EDT [facility] - 11/12/2024 5:51 PM EDT This assay is used as [...] >75 Positive >1800 Castellano 300-1800 Negative <300 us Vasu Mckeon MD LAB BLOOD ORDERABLES Fin al Result [facility]
[address] [place] [address], * (ABNORMAL) Comprehensive Metabolic Panel (11/12/2024 5:17 PM EDT) Glucose 96 65 - 99 mg/dL 11/12/2024 5:51 PM EDT [facility] BUN 24.7(H) 8.0 - 23.0 mg/dL 11/12/2024 5:51 PM EDT [facility] Creatinine 1.06(H) 0.57 - 1.00 mg/dL 11/12/2024 5:51 PM EDT [facility] Sodium 139 136 - 145 mmol/L 11/12/2024 5:51 PM EDT [facility] Potassium 4.4 3.5 - 5.2 mmol/L 11/12/2024 5:51 PM EDT [facility] Chloride 101 98 - 107 mmol/L 11/12/2024 5:51 PM EDT [facility] CO2 27.9 22.0 - 29.0 mmol/L 11/12/2024 5:51 PM EDT [facility] Calcium 9.1 8.6 - 10.5 mg/dL 11/12/2024 5:51 PM EDT [facility] Total Protein 6.4 6.0 - 8.5 g/dL 11/12/2024 5:51 PM EDT [facility] Albumin 4.0 3.5 - 5.2 g/dL 11/12/2024 5:51 PM EDT [facility] ALT (SGPT) 15 1 - 33 U/L 11/12/2024 5:51 PM EDT [facility] AST (SGOT) 27 1 - 32 U/L 11/12/2024 5:51 PM EDT [facility] Alkaline Phosphatase 113 39 - 117 U/L 11/12/2024 5:51 PM EDT [facility] Total Bilirubin 0.2 0.0 - 1.2 mg/dL 11/12/2024 5:51 PM EDT [facility] Globulin 2.4 gm/dL 11/12/2024 5:51 PM EDT [facility] Comment:Calculated Result A/G Ratio 1.7 g/dL 11/12/2024 5:51 PM T [facility] BUN/Creatinine Ratio 23.3 7.0 - 25.0 11/12/2024 5:51 PM EDT [facility] Anion Gap 10.1 5.0 - 15.0 mmol/L 11/12/2024 5:51 PM [facility] eGFR 58.1(L) >60.0 mL/min/1.7 3 11/12/2024 5:51 PM T [facility] Blood Venipuncture / Unknown 11/12/2024 5:17 PM EDT 11/12/2024 5:17 PM EDT [facility] - 11/12/2024 5:51 PM EDT GFR Categories in Chronic Kidney [...] does not include race as a factor Vasu Mckeon MD LAB BLOOD ORDERABLES Fin al Result [facility]
[address] [place] [address], * ECG 12 Lead Dyspnea (11/12/2024 4:45 PM EDT) QT Interval 404 ms ECG QTC Interval 445 ms ECG 11/12/2024 4:45 PM EDT 11/16/2024 1:16 PM EDT Narrative [facility] ECG - 11/16/2024 1:16 PM EDT Test Reason : Dyspnea Blood Pressure : */* mmHG Vent. Rate : 73 BPM Atrial Rate : 73 BPM P-R Int : 146 ms QRS Dur : 86 ms QT Int : 404 ms P-R-T Axes : 51 49 32 degrees QTcB Int : 445 ms Normal sinus rhythm Normal ECG No previous ECGs available Confirmed by VASU MCKEON ([id number]) on 11/16/2024 1:16:05 PM Referred By: Confirmed By: VASU MCKEON Procedure Note Vasu Mckeon MD - 11/16/2024 Test Reason : Dyspnea Blood Pressure : */* mmHG Vent. Rate : 73 BPM Atrial Rate : 73 BPM P-R Int : 146 ms QRS Dur : 86 ms QT Int : 404 ms P-R-T Axes : 51 49 32 degrees QTcB Int : 445 ms Normal sinus rhythm Normal ECG No previous ECGs available Confirmed by VASU MCKEON ([id number]) on 11/16/2024 1:16:05 PM Referred By: Confirmed By: VASU MCKEON Vasu Mckeon MD ECG ORDERABLES Final Re sult Performing Organization Address City/[facility]/ZIP Co de Phone Number ECG documented in this encounter Visit Diagnoses Diagnosis Respiratory failure with hypoxia- Primary Referred by health direct support professional caregiver Dyspnea on exertion Other dyspnea and respiratory abnormality Chronic respiratory failure with hypoxia, on home O2 therapy SMOOTH (obstructive sleep apnea) Obstructive sleep apnea (adult) (pediatric) Elevated troponin Other abnormal blood chemistry Moderate aortic valve regurgitation Shortness of breath Edema Paroxysmal atrial fibrillation Atrial fibrillation Hyperlipidemia LDL goal <55 History of CVA (cerebrovascular accident) Transient ischemic attack (TIA), and cerebral infarction without residual deficits Chronic respiratory failure with hypoxia, on home O2 therapy SMOOTH (obstructive sleep apnea) Obstructive sleep apnea (adult) (pediatric) Anemia Unspecified anemia Stage 3a chronic kidney disease Elevated troponin Other abnormal blood chemistry Pyuria Other nonspecific finding on examination of urine COPD (chronic obstructive pulmonary disease) Chronic airway obstruction, not elsewhere classified GERD without esophagitis Esophageal reflux Anxiety associated with depression Dysthymic disorder Primary hypertension Unspecified essential hypertension Moderate aortic valve regurgitation documented in this encounter Admitting Diagnoses Diagnosis Respiratory failure with hypoxia documented in this encounter Administered Medications Inactive Administered Medications - up to 3 most recent administrations Medication Order MAR Action Action Date Dose Rate Site bisacodyl (DULCOLAX) EC tablet 5 mg 5 mg, Oral, Daily PRN, Constipation, Use if polyethylene glycol is ineffective, Starting on Sat11/13/24 at 0246, Use if no bowel movement after 12 hours. Swallow whole. Do not crush, split, or chew tablet. bisacodyl (DULCOLAX) suppository 10 mg 10 mg, Rectal, Daily PRN, Constipation, Use if bisacodyl oral is ineffective, Starting on Sat11/13/24 at 0246, Use if no bowel movement after 12 hours. Hold for diarrhea bisoprolol (ZEBeta) tablet 5 mg 5 mg, Oral, Daily, First dose on Sat11/13/24 at 0900, Hold for SBP less than 100, DBP less than 60, or heart rate less than 50. If a dose is held, please contact the provider. Caution: Look alike/sound alike drug alert Given 11/14/2024 8:08 AM EDT 5 mg Given 11/13/2024 9:02 AM EDT 5 mg budesonide (PULMICORT) nebulizer solution 0.5 mg 0.5 mg, Nebulization, Daily - RT, First dose on Sat11/13/24 at 0930, Include Respiratory Treatment Education Do not shake. Protect from light. Given 11/14/2024 7:30 AM EDT 0.5 mg Given 11/13/2024 9:40 AM EDT 0.5 mg bumetanide (BUMEX) injection 2 mg 2 mg, Intravenous, Once, On Chantelle 11/12/24 at 1728, For 1 dose, Hold for SBP less than 100, DBP less than 60. Give slow IV push over 1-2 minutes. Given 11/12/2024 9:49 PM EDT 2 mg cefTRIAXone (ROCEPHIN) 2,000 mg in sodium chloride 0.9 % 100 mL MBP 2,000 mg, Intravenous, at 200 mL/hr, Administer over 30 Minutes, Once, On Sat11/13/24 at 0105, For 1 dose, LR should be paused and flushing of the line with NS is recommended prior to and after completion of ceftriaxone infusion due to incompatibility. Do not co-adminster with calcium-containing solutions. Caution: Look alike/sound alike drug alert, Indications: Uncomplicated CystitisIndications:Uncomplicated Cystitis New Bag 11/13/2024 2:29 AM EDT 2,000 mg 200 mL/hr cetirizine (zyrTEC) tablet 10 mg 10 mg, Oral, Daily, First dose on Sat11/13/24 at 0900 Given 11/14/2024 8:07 AM EDT 10 mg Given 11/13/2024 9:02 AM EDT 10 mg dicyclomine (BENTYL) capsule 10 mg 10 mg, Oral, 4 Times Daily Before Meals & Nightly, First dose on Sat11/13/24 at 0730 Given 11/14/2024 8:08 AM EDT 10 mg Given 11/13/2024 8:40 PM EDT 10 mg Given 11/13/2024 5:02 PM EDT 10 mg HYDROcodone-acetaminophen (NORCO) 5-325 MG per tablet 1 tablet 1 tablet, Oral, Every 8 Hours PRN, Moderate Pain, Starting on Sat11/13/24 at 0143, For 5 days, Based on patient request - if ordered for moderate or severe pain, provider allows for administration of a medication prescribed for a lower pain scale. [VIJAY] Do not exceed 4 grams of acetaminophen in a 24 hr period. Max dose of 2gm for AST/ALT greater than 120 units/L If given for pain, use the following pain scale: Mild Pain = Pain Score of 1-3, CPOT 1-2 Moderate Pain = Pain Score of 4-6, CPOT 3-4 Severe Pain = Pain Score of 7-10, CPOT 5-8 Given 11/14/2024 6:24 AM EDT 1 tablet Given 11/13/2024 8:45 PM EDT 1 tablet Given 11/13/2024 11:33 AM EDT 1 tablet iopamidol (ISOVUE-370) 76 % injection 75 mL 75 mL, Intravenous, Once in Imaging, On Chantelle 11/12/24 at 1952, For 1 dose Given 11/12/2024 7:46 PM EDT 75 mL ipratropium-albuterol (DUO-NEB) nebulizer solution 3 mL 3 mL, Nebulization, Once, On Chantelle 11/12/24 at 1728, For 1 dose, Include Respiratory Treatment Education Given 11/12/2024 10:52 PM EDT 3 mL ipratropium-albuterol (DUO-NEB) nebulizer solution 3 mL 3 mL, Nebulization, 4 Times Daily - RT, First dose on Sat11/13/24 at 0830, Include Respiratory Treatment Education Given 11/14/2024 1:35 PM EDT 3 mL Given 11/14/2024 7:29 AM EDT 3 mL Given 11/13/2024 8:19 PM EDT 3 mL Magnesium Standard Dose Replacement - Follow Nurse / BPA Driven Protocol Open Order & Select [facility] Electrolyte Replacement Protocol Algorithm to View Details melatonin tablet 5 mg 5 mg, Oral, Nightly PRN, Sleep, Starting on Sat11/13/24 at 0246 Given 11/13/2024 8:40 PM EDT 5 mg montelukast (SINGULAIR) tablet 10 mg 10 mg, Oral, Daily, First dose on Sat11/13/24 at 0900 Given 11/14/2024 8:09 AM EDT 10 mg Given 11/13/2024 9:03 AM EDT 10 mg pantoprazole (PROTONIX) EC tablet 40 mg 40 mg, Oral, 2 Times Daily Before Meals, First dose on Sat11/13/24 at 0730, Swallow whole; do not crush, split, or chew. Given 11/14/2024 8:08 AM EDT 40 mg Given 11/13/2024 5:02 PM EDT 40 mg Given 11/13/2024 9:03 AM EDT 40 mg Pharmacy Meds to Bed Consult Daily, First dose on Sat11/14/24 at 1400, Until Discontinued, Please contact Retail Pharmacy prior to patient discharge polyethylene glycol (MIRALAX) packet 17 g 17 g, Oral, Daily PRN, Constipation, Use if senna-docusate is ineffective, Starting on Sat11/13/24 at 0246, Use if no bowel movement after 12 hours. Mix in 6-8 ounces of water. Use 4-8 ounces of water, tea, or juice for each 17 gram dose. Potassium Replacement - Follow Nurse / BPA Driven Protocol Open Order & Select [facility] Electrolyte Replacement Protocol Algorithm to View Details predniSONE (DELTASONE) tablet 40 mg 40 mg, Oral, Daily, First dose on Sat11/13/24 at 2000, For 5 doses, Take with food. Given 11/14/2024 8:08 AM EDT 40 mg Given 11/13/2024 8:40 PM EDT 40 mg rivaroxaban (XARELTO) tablet 15 mg 15 mg, Oral, Daily With Dinner, First dose on Sat11/13/24 at 1800, If giving by tube: suspend in 50mL water, administer, and immediately follow with enteral feeding. Administer doses 15mg or greater with food; doses of 2.5mg and 10mg may be administered without regard to meals., Indications: Atrial Fibrillation - requiring full anticoagulationIndications:Atrial Fibrillation - requiring full anticoagulation Given 11/13/2024 5:02 PM EDT 15 mg sennosides-docusate (PERICOLACE) 8.6-50 MG per tablet 2 tablet 2 tablet, Oral, 2 Times Daily, First dose on Sat11/13/24 at 0900, HOLD MEDICATION IF PATIENT HAS HAD BOWEL MOVEMENT. Start bowel management regimen if patient has not had a bowel movement after 12 hours. Given 11/14/2024 8:08 AM EDT 2 tablets Given 11/13/2024 8:40 PM EDT 2 tablets Given 11/13/2024 9:03 AM EDT 2 tablets sodium chloride 0.9 % flush 10 mL 10 mL, Intravenous, As Needed, Line Care, Starting on Chantelle 11/12/24 at 1642 sodium chloride 0.9 % flush 10 mL 10 mL, Intravenous, Every 12 Hours Scheduled, First dose on Sat11/13/24 at 0900 Given 11/14/2024 8:10 AM EDT 10 mL Given 11/13/2024 9:03 AM EDT 10 mL spironolactone (ALDACTONE) tablet 25 mg 25 mg, Oral, Daily, First dose on Sat11/13/24 at 0900, Hold for SBP less than 100, DBP less than 60. Group 1 (Yellow) Hazardous Drug - See Handling Guide Given 11/14/2024 8:08 AM EDT 25 mg Given 11/13/2024 9:02 AM EDT 25 mg Sulfur Hexafluoride Microsph (LUMASON) 60.7-25 MG IV reconstituted suspension reconstituted suspension 2 mL 2 mL, Intravenous, Once in Imaging, On 11/14/24 at 1230, For 1 dose Given 11/14/2024 11:33 AM EDT 2 mL venlafaxine XR (EFFEXOR-XR) 24 hr capsule 150 mg 150 mg, Oral, 2 Times Daily, First dose on Sat11/13/24 at 0900, Do not crush or chew the capsules or tablets. The drug may not work as designed if the capsule or tablet is crushed or chewed. Swallow whole. Given 11/14/2024 8:09 AM EDT 150 mg Given 11/13/2024 8:40 PM EDT 150 mg Given 11/13/2024 9:02 AM EDT 150 mg documented in this encounter Active and Recently Administered Medications Times are shown in EDT. Scheduled Medication Order 11/12/2024 11/13/2024 11/14/2024 bisoprolol (ZEBeta) tablet 5 mg 5 mg, Oral, Daily, First dose on Sat11/13/24 at 0900, Hold for SBP less than 100, DBP less than 60, or heart rate less than 50. If a dose is held, please contact the provider. Caution: Look alike/sound alike drug alert 0902 (Given - Provider: Jill Altamirano RN) 0808 (Given - Provider: Jill Altamirano RN) budesonide (PULMICORT) nebulizer solution 0.5 mg 0.5 mg, Nebulization, Daily - RT, First dose on Sat11/13/24 at 0930, Include Respiratory Treatment Education Do not shake. Protect from light. 0940 (Given - Provider: Laine David, [employer]) 0730 (Given - Provider: Luz Maria Neely JOURNEYMAN PIPE WELDER)0930 (Canceled Entry - Provider: Luz Maria Neely RRT) bumetanide (BUMEX) injection 2 mg (COMPLETED) 2 mg, Intravenous, Once, On Chantelle 11/12/24 at 1728, For 1 dose, Hold for SBP less than 100, DBP less than 60. Give slow IV push over 1-2 minutes. 214 (Given - Provider: Ghanshyam Soni, BERNICE) cefTRIAXone (ROCEPHIN) 2,000 mg in sodium chloride 0.9 % 100 mL MBP (COMPLETED) 2,000 mg, Intravenous, at 200 mL/hr, Administer over 30 Minutes, Once, On Sat11/13/24 at 0105, For 1 dose, LR should be paused and flushing of the line with NS is recommended prior to and after completion of ceftriaxone infusion due to incompatibility. Do not co-adminster with calcium-containing solutions. Caution: Look alike/sound alike drug alert, Indications: Uncomplicated Cystitis 022 (New Bag - Provider: Ghanshyam Soni, BERNICE) cetirizine (zyrTEC) tablet 10 mg 10 mg, Oral, Daily, First dose on Sat11/13/24 at 0900 0902 (Given - Provider: Jill Altamirano, BERNICE) 0807 (Given - Provider: Jill Altamirano, BERNICE) dicyclomine (BENTYL) capsule 10 mg 10 mg, Oral, 4 Times Daily Before Meals & Nightly, First dose on Sat11/13/24 at 0730 0902 (Given - Provider: Jill Altamirano RN)1133 (Given - Provider: Jill Altamirano, BERNICE)1702 (Given - Provider: Jill Altamirano, BERNICE)2040 (Given - Provider: Merissa Wakefield RN) 0808 (Given - Provider: Jill Altamirano, BERNICE)1112 (Not Given - Provider: Jill Altamirano, BERNICE - Reason: Patient/family refused) iopamidol (ISOVUE-370) 76 % injection 75 mL (COMPLETED) 75 mL, Intravenous, Once in Imaging, On Chantelle 11/12/24 at 1952, For 1 dose 1946 (Given - Provider: Devon Rebolledo) ipratropium-albuterol (DUO-NEB) nebulizer solution 3 mL (COMPLETED) 3 mL, Nebulization, Once, On Chantelle 11/12/24 at 1728, For 1 dose, Include Respiratory Treatment Education 2252 (Given - Provider: Narciso Melton, JOURNEY[employer] P[employer]ELDER) ipratropium-albuterol (DUO-NEB) nebulizer solution 3 mL 3 mL, Nebulization, 4 Times Daily - RT, First dose on Sat11/13/24 at 0830, Include Respiratory Treatment Education 0940 (Given - Provider: Laine Hernandez J[employer] WEL[employer])1334 (Given - Provider: Laine Hernandez JOURNEYMAN PIPE WELDER)1651 (Given - Provider: Laine Hernandez JOURNEYMAN PIPE WELDER)2019 (Given - Provider: Eusebio Jade, TELE[employer] SERVICES SALES REPRESENTATIVE) 0729 (Given - Provider: Luz Maria Neely RRT)0733 (Canceled Entry - Provider: Luz Maria Neely RRT)1335 (Given - Provider: Luz Maria Neely RRT)1608 (Not Given - Provider: Luz Maria Neely RRT - Reason: Patient/family refused - Comment: Pt being D/C's waiting on transport) montelukast (SINGULAIR) tablet 10 mg 10 mg, Oral, Daily, First dose on Sat11/13/24 at 0900 0903 (Given - Provider: Jill Altamirano, BERNICE) 0809 (Given - Provider: Jill Altamirano, BERNICE) pantoprazole (PROTONIX) EC tablet 40 mg 40 mg, Oral, 2 Times Daily Before Meals, First dose on Sat11/13/24 at 0730, Swallow whole; do not crush, split, or chew. 0903 (Given - Provider: Jill Altamirano RN)1702 (Given - Provider: Jill Altamirano, BERNICE) 0808 (Given - Provider: Jill Altamirano, RN) Pharmacy Meds to Bed Consult Daily, First dose on Sat11/14/24 at 1400, Until Discontinued, Please contact Retail Pharmacy prior to patient discharge 1400 (Due) predniSONE (DELTASONE) tablet 40 mg 40 mg, Oral, Daily, First dose on Sat11/13/24 at 2000, For 5 doses, Take with food. 2039 (Given - Provider: Merissa Wakefield RN) 0808 (Given - Provider: Jill Altamirano, BERNICE) rivaroxaban (XARELTO) tablet 15 mg 15 mg, Oral, Daily With Dinner, First dose on Sat11/13/24 at 1800, If giving by tube: suspend in 50mL water, administer, and immediately follow with enteral feeding. Administer doses 15mg or greater with food; doses of 2.5mg and 10mg may be administered without regard to meals., Indications: Atrial Fibrillation - requiring full anticoagulation 170 (Given - Provider: Jill Altamirano, RN) sennosides-docusate (PERICOLACE) 8.6-50 MG per tablet 2 tablet(Linked Group 1) 2 tablet, Oral, 2 Times Daily, First dose on Sat11/13/24 at 0900, HOLD MEDICATION IF PATIENT HAS HAD BOWEL MOVEMENT. Start bowel management regimen if patient has not had a bowel movement after 12 hours. 0903 (Given - Provider: Jill Altamirano RN)2040 (Given - Provider: Merissa Wakefield, BERNICE) 0808 (Given - Provider: Jill Altamirano, RN) sodium chloride 0.9 % flush 10 mL 10 mL, Intravenous, Every 12 Hours Scheduled, First dose on Sat11/13/24 at 0900 0903 (Given - Provider: Jill Altamirano RN)0 (Canceled Entry - Provider: Merissa Wakefield, BERNICE) 0810 (Given - Provider: Jill Altamirano, RN) spironolactone (ALDACTONE) tablet 25 mg 25 mg, Oral, Daily, First dose on Sat11/13/24 at 0900, Hold for SBP less than 100, DBP less than 60. Group 1 (Yellow) Hazardous Drug - See Handling Guide 09 (Given - Provider: Jill Altamirano RN) 0808 (Given - Provider: Jill Altamirano, RN) Sulfur Hexafluoride Microsph (LUMASON) 60.7-25 MG IV reconstituted suspension reconstituted suspension 2 mL (COMPLETED) 2 mL, Intravenous, Once in Imaging, On Sat11/14/24 at 1230, For 1 dose 1133 (Given - Provider: Shady Palmer, [facility]) venlafaxine XR (EFFEXOR-XR) 24 hr capsule 150 mg 150 mg, Oral, 2 Times Daily, First dose on Sat11/13/24 at 0900, Do not crush or chew the capsules or tablets. The drug may not work as designed if the capsule or tablet is crushed or chewed. Swallow whole. 0902 (Given - Provider: Jill Altamirano, RN)2039 (Given - Provider: Merissa Wakefield, RN) 808 (Given - Provider: Jill Altamirano, RN) PRN Medication Order 11/12/2024 11/13/2024 11/14/2024 acetaminophen (TYLENOL) tablet 650 mg 650 mg, Oral, Every 4 Hours PRN, Mild Pain, Starting on Sat11/13/24 at 0246, If given for fever, use fever parameter: fever greater than 100.4 F Based on patient request - if ordered for moderate or severe pain, provider allows for administration of a medication prescribed for a lower pain scale. Do not exceed 4 grams of acetaminophen in a 24 hr period. Max dose of 2gm for AST/ALT greater than 120 units/L. If given for pain, use the following pain scale: Mild Pain = Pain Score of 1-3, CPOT 1-2 Moderate Pain = Pain Score of 4-6, CPOT 3-4 Severe Pain = Pain Score of 7-10, CPOT 5-8 bisacodyl (DULCOLAX) EC tablet 5 mg(Linked Group 1) 5 mg, Oral, Daily PRN, Constipation, Use if polyethylene glycol is ineffective, Starting on Sat11/13/24 at 0246, Use if no bowel movement after 12 hours. Swallow whole. Do not crush, split, or chew tablet. bisacodyl (DULCOLAX) suppository 10 mg(Linked Group 1) 10 mg, Rectal, Daily PRN, Constipation, Use if bisacodyl oral is ineffective, Starting on Sat11/13/24 at 0246, Use if no bowel movement after 12 hours. Hold for diarrhea HYDROcodone-acetaminophen (NORCO) 5-325 MG per tablet 1 tablet 1 tablet, Oral, Every 8 Hours PRN, Moderate Pain, Starting on Sat11/13/24 at 0143, For 5 days, Based on patient request - if ordered for moderate or severe pain, provider allows for administration of a medication prescribed for a lower pain scale. [VIJAY] Do not exceed 4 grams of acetaminophen in a 24 hr period. Max dose of 2gm for AST/ALT greater than 120 units/L If given for pain, use the following pain scale: Mild Pain = Pain Score of 1-3, CPOT 1-2 Moderate Pain = Pain Score of 4-6, CPOT 3-4 Severe Pain = Pain Score of 7-10, CPOT 5-8 0325 (Given - Provider: Vale Hammond RN)0917 (Not Given - Provider: Jill Altamirano, BERNICE - Reason: Contraindicated)1133 (Given - Provider: Jill Altamirano, RN)2044 (Given - Provider: Merissa Wakefield, BERNICE) 0624 (Given - Provider: Merissa Wakefield, BERNICE) ipratropium-albuterol (DUO-NEB) nebulizer solution 3 mL 3 mL, Nebulization, Every 4 Hours PRN, Wheezing, Shortness of Air, Starting on Sat11/13/24 at 0246 Magnesium Standard Dose Replacement - Follow Nurse / BPA Driven Protocol Open Order & Select [facility] Electrolyte Replacement Protocol Algorithm to View Details melatonin tablet 5 mg 5 mg, Oral, Nightly PRN, Sleep, Starting on Sat11/13/24 at 0246 2040 (Given - Provider: Merissa Wakefield, BERNICE) nitroglycerin (NITROSTAT) SL tablet 0.4 mg 0.4 mg, Sublingual, Every 5 Minutes PRN, Chest Pain, Starting on Sat11/13/24 at 0246, If Pain Unrelieved After 3 Doses Notify MD May administer up to 3 doses per episode. Hold if SBP less than 100. polyethylene glycol (MIRALAX) packet 17 g(Linked Group 1) 17 g, Oral, Daily PRN, Constipation, Use if senna-docusate is ineffective, Starting on Sat11/13/24 at 0246, Use if no bowel movement after 12 hours. Mix in 6-8 ounces of water. Use 4-8 ounces of water, tea, or juice for each 17 gram dose. Potassium Replacement - Follow Nurse / BPA Driven Protocol Open Order & Select [facility] Electrolyte Replacement Protocol Algorithm to View Details sodium chloride 0.9 % flush 10 mL 10 mL, Intravenous, As Needed, Line Care, Starting on Chantelle 11/12/24 at 1642 sodium chloride 0.9 % flush 10 mL 10 mL, Intravenous, As Needed, Line Care, Starting on Sat11/13/24 at 0246 sodium chloride 0.9 % infusion 40 mL 40 mL, Intravenous, at 100 mL/hr, As Needed, Line Care, Starting on Sat11/13/24 at 0246, Following administration of an IV intermittent medication, flush line with 40mL NS at 100mL/hr. Linked Groups Order Group 1: sennosides-docusate (PERICOLACE) 8.6-50 MG per tablet 2 tabletJump to med 2 tablet, Oral, 2 Times Daily, First dose on Sat11/13/24 at 0900, HOLD MEDICATION IF PATIENT HAS HAD BOWEL MOVEMENT. Start bowel management regimen if patient has not had a bowel movement after 12 hours. And polyethylene glycol (MIRALAX) packet 17 gJump to med 17 g, Oral, Daily PRN, Constipation, Use if senna-docusate is ineffective, Starting on Sat11/13/24 at 0246, Use if no bowel movement after 12 hours. Mix in 6-8 ounces of water. Use 4-8 ounces of water, tea, or juice for each 17 gram dose. And bisacodyl (DULCOLAX) EC tablet 5 mgJump to med 5 mg, Oral, Daily PRN, Constipation, Use if polyethylene glycol is ineffective, Starting on Sat11/13/24 at 0246, Use if no bowel movement after 12 hours. Swallow whole. Do not crush, split, or chew tablet. And bisacodyl (DULCOLAX) suppository 10 mgJump to med 10 mg, Rectal, Daily PRN, Constipation, Use if bisacodyl oral is ineffective, Starting on Sat11/13/24 at 0246, Use if no bowel movement after 12 hours. Hold for diarrhea documented in this encounter Care Teams Casing Fluid Tender Relationship Specialty Start Date End Date Sandra Orozco APRN [address] [place] [address] PCP - General Internal Medicine 05/11/24 documented as of this encounter
[2024-11-23 13:29] LABS: Hematocrit 34.3 % (37.0-47.0); Hemoglobin 9.5 g/dL (12.2-16.2); Immature Granulocytes % 2.8 %; Mean Corpuscular HGB Conc 27.7 g/dL (31.8-35.4); Mean Corpuscular Hemoglobin 20.7 pg (27.0-31.2); Mean Corpuscular Volume 74.6 fl (81-99); Nucleated Red Blood Cells % 0 %; Platelet Count 316 K/mm3 (142-424); Red Blood Count 4.60 M/mm3 (4.20-5.40); Red Cell Distribution Width-SD 50.5 fL; White Blood Count 8.0 K/mm3 (4.8-10.8)
[2024-11-23 14:39] LABS: Iron 46 ug/dL (37-170)
[2024-11-23 14:54] LABS: Total Iron Binding Capacity 416 ug/dL (265-497)
[2024-11-23 15:17] LABS: Ferritin 6.36 ng/ml (11.1-264)
--- OUTSIDE RECORDS SUMMARY | 2024-11-24 11:18 | XMS_ITS | Encounter Summary ---
Author Organization [facility] ystem Address [address] [place] [address] Care Team Providers Care Loader [facility] [employer] Name Role Phone Sandra Orozco APRN Primary Care Provider [phone] Encounter Details Date Type Department Care Team (Late st Contact Info) Description 11/16/2024 Readmission Management [facility] [address] [place] [address] Omaira Knapp RN Social History Tobacco Use Types Packs/Day Years Used Date Smoking Tobacco: Former Cigarettes Smokeless Tobacco: Never Comments:Smoked since 1973 Alcohol Use Standard Drinks/Week Comments Not Currently 0 (1 standard drink = 0.6 oz pur e alcohol) former [facility] Utilities Answer Date Recorded In the past 12 months has [employer], gas, oil, or water [employer] threatened to shut off services in your [...] GED or equivalent No 11/13/2024 Preferred Language [place] 11/13/2024 PHQ-2 Answer Date Recorded Patient Health Questionnaire-2 Score 0 11/13/2024 Comments No Sex and Gender Information Value Date Recorded Sex Assigned at Female 07/09/2024 8:35 PM EDT Legal Sex Female 8:53 AM EST Gender Identity Not on file Sexual Orientation Straight 07/09/2024 8: 35 PM EDT documented as of this encounter Miscellaneous Notes * Outreach Note - Omaira Knapp RN - 11/16/2024 7:50 AM EDT Prep Survey Flowsheet Row Responses [facility] [place], [facility] patient discharged from? [place] Is LACE score less than 10 ? No Eligibility Readm Mgmt Discharge diagnosis Acute on chronic hypoxic resp failure, Acute CHF, COPD with acute exacerbation Does the patient have one of the following disease processes/diagnoses(primary or secondary)? CHF Does the patient have Home health ordered? No Is there a DME ordered? No Prep survey completed? Yes Omaira Dumont - Registered Nurse documented in this encounter Plan of Treatment Upcoming Encounters Date Type Department Care Team (Late st Contact Info) Description 11/26/2024 11:00 AM EDT Office Visit [facility] [address] [facility] [address] [place] [address] Dina Solano APRN [address] [facility] [address] [place] [address] documented as of this encounter Visit Diagnoses Not on filedocumented in this encounter Care Teams Loader [employer] Relationship Specialty Start Date End Date Sandra Orozco APRN [address] [place] [address] [address] [place] [address] (work) PCP - General Internal Medicine 05/11/24 documented as of this encounter
--- OUTSIDE RECORDS SUMMARY | 2024-11-24 11:18 | XMS_ITS | Clinical Summary ---
[facility] Address [address] [place] [address] Care Team Providers Care Aerospace Medicine Physician Name Role Phone Sandra Orozco APRN Primary Care Provider [phone] Allergies Active Allergy Reactions Criticality Noted Date [...] all over Nortriptyline Swelling Low 04/15/2024 Poison Amelia Extract Hives,Itching,Swell ing,Rash Low 04/15/2024 Poison oak/poison [...] Day Before Meals & at Bedtime. Active HYDROcodone-aceta minophen (NORCO) 10-325 MG per tablet Take 1 tablet by mouth Every 4 (Four) Hours As Needed. Active levocetirizine (XYZAL) 5 MG tablet Take 1 tablet by mouth Daily. Active montelukast (SINGULAIR) 10 MG tablet Take 1 tablet by mouth Daily. Active potassium chloride 10 MEQ CR tablet Active pramipexole (MIRAPEX) 1.5 MG tablet 3 (Three) Times a Day. Active spironolactone (ALDACTONE) 25 MG tablet Take 1 tablet by mouth Daily. Active tiZANidine (ZANAFLEX) 4 MG tablet Take 1 tablet by mouth Every 6 (Six) Hours As Needed. Active venlafaxine XR (EFFEXOR-XR) 150 MG 24 hr capsule Act sp Xarelto 15 MG tablet Take 1 tablet by mouth Daily With Dinner. 90 tablet 3 08/29/19 25 Active triamcinolone (KENALOG) 0.1 % cream Apply 1 Application topically to the appropriate area as directed 2 (Two) Times a Day. Active PHARMACY MEDS TO BED CONSULT Use Daily. 11/15/19 25 Active fluconazole (DIFLUCAN) 200 MG tablet As Needed. Discontinu ed(Stop Taking at Discharge) hydrocortisone 2.5 % cream Discontinu ed(Stop Taking at Discharge) clotrimazole (MYCELEX) 10 MG brad Take 1 tablet by mouth 3 (Three) Times a Day. 08/13/19 25 Discontinu ed(Stop Taking at Discharge) rosuvastatin (CRESTOR) 5 MG tabletIndications :Hyperlipidemia, unspecified hyperlipidemia type Take 1 tablet by mouth Daily. 90 tablet 1 08/14/19 25 Discontinu ed(Patient Reported Not Taking) predniSONE (DELTASONE) 20 MG tablet Take 2 tablets by mouth Daily for 3 doses. 6 tablet 4:15 PM EDT 11/16/19 25 025 Active Problems Problem Noted Date Diagnosed Date Respiratory failure with hypoxia 11/13/2024 Edema 11/13/2024 SMOOTH (obstructive sleep apnea) 11/13/2024 Anemia 11/13/2024 Stage 3a chronic kidney disease 11/13/2024 Elevated troponin 11/13/2024 Pyuria 11/13/2024 COPD (chronic obstructive pulmonary disease) 07/2024 GERD without esophagitis 11/13/2024 Anxiety associated with depression 11/13/2024 Primary hypertension 11/13/2024 Shortness of breath 11/12/2024 Assessment & Plan (11/12/2024 12:51 PM EDT): Patient presents to the office today after following up with pulmonology yesterday with concerns of worsening shortness of breath and lower extremity edema. Her wind tunnel technician was concerned about heart failure and advised her to contact our office. I offered to order chest x-ray, proBNP, CMP and 2D echo for patient but advised her it may take some time to get echo and lab results back. Patient reports she is feeling terrible and would like to just present to the emergency department for possible admission. Chronic respiratory failure with hypoxia, on home O2 therapy 08/12/2024 Assessment & Plan (08/13/2024 1:06 PM EDT): Continue follow-up with pulmonary Discussed with patient she becomes short of breath or wheezing is where she should follow-up with him or present to the emergency department Paroxysmal atrial fibrillation 07/16/2024 Assessment & Plan (11/12/2024 12:51 PM EDT): Continue to monitor, continue Xarelto 50 mg p.o. daily Assessment & Plan (08/13/2024 1:06 PM EDT): Continue bisoprolol 5 mg p.o. daily Continue Xarelto 15 mg p.o. daily Orders: CBC (No Diff); Future Comprehensive Metabolic Panel; Future Assessment & Plan (07/16/2024 12:10 PM EDT): [id number] Continue Xarelto 15 mg p.o. daily, need to check and make sure patient does not need the 20 mg dosing. Continue bisoprolol 5 mg p.o. daily Orders: Basic Metabolic Panel; Future Peripheral arterial disease 07/16/2024 Assessment & Plan (11/12/2024 12:51 PM EDT): Continue Xarelto 15 mg p.o. daily Patient previously intolerant to statins Consider Repatha Assessment & Plan (07/16/2024 12:10 PM EDT): Continue Xarelto 15 mg p.o. daily History of CVA (cerebrovascular accident) 2024 Assessment & Plan (11/12/2024 12:51 PM EDT): Revisit next visit Assessment & Plan (07/16/2024 12:10 PM EDT): [...] aortic valve regurgitation 05/09/2024 Assessment & Plan (11/12/2024 12:51 PM EDT): Was going to order 2D echo today, patient will be going to the hospital and will likely have 2D echo there. Assessment & Plan (08/13/2024 1:06 PM EDT): [...] Encounters Date Type Department Care Team Description 11/23/2024 Readmission Management [facility] [address] [place] [address] Kaykay Farrar RN 11/16/2024 Readmission Management [facility] [address] [place] [address] Omaira Knapp RN 11/12/2024 9:36 PM EDT - 11/14/2024 4:38 PM EDT Hospital Encounter [address] [place] [address] Logan Araujo MD Butler, Jennifer, MD Barbato, Hayley R, DO West, Christopher R, MD Referred by health gericare aide teacher (Primary Dx); Dyspnea on exertion; Chronic respiratory failure with hypoxia, on home O2 therapy; SMOOTH (obstructive sleep apnea); Elevated troponin; Moderate aortic valve regurgitation Discharge Disposition: Home or Self Care 11/12/2024 12:30 PM EDT Office Visit [facility] [address] [place] [address] [address] [place] [phone] Dina Solano APRN Shortness of breath (Primary Dx); Generalized edema; Chronic respiratory failure with hypoxia; Paroxysmal atrial fibrillation; History of CVA (cerebrovascular accident); Moderate aortic valve regurgitation; Peripheral arterial disease 11/12/2024 Patient rounding ([facility] [place] [facility] [address] [place] [address] [place] [address] [phone] Dina Solano APRN 11/12/2024 Travel 11/10/2024 Telephone [facility] [address] [place] [address] [address] [phone] Christy Kirk MD 08/28/2024 Refill [facility] [address] [place] [address] [address] [phone] Christy Kirk MD Med Refill 08/27/2024 Refill [facility] [address] [place] [address] [address] [address] Christy Kirk MD Med Refill from Last 3 Months Family History Medical [...] = 0.6 oz pur e alcohol) former [facility] Utilities Answer Date Recorded In the past 12 months has [employer], oil, or water [facility] threatened to shut off services in your [...] care, and heating? Not very hard 11/13/2024 [facility] [place] [facility] Occupat ional Health - Occupational Stress [...] GED or equivalent No 11/13/2024 Preferred Language Barbadian 11/13/2024 PHQ-2 Answer Date Recorded Patient Health [...] Mass Index 36.21 11/14/2024 11:29 AM EDT Plan of Treatment Upcoming Encounters Date Type Department Care Team (Late st Contact Info) Description 11/26/2024 11:00 AM EDT Office Visit [facility] [address] [place] [phone] Dina Solano, DITCH RIDER [address] [facility] [address] [place] [address] Health Maintenance Due Date Last Done Comments DXA SCAN 1960 Pneumococcal Vaccine 50+ (1 of 2 - PCV) 1977 COLOGUARD 2003 COLON CANCER SCREENING 5 YEA R SIGMOIDOSCOPY 2003 COLONOSCOPY 2003 COL[address]ECTAL CANCER SCREENING 2003 CT COLONOGRAPHY 2003 FECAL OCCULT BLOOD TEST 2003 FIT Testing (1 year) 2003 MAMMOGRAM 04/06/2017 04/06/2015 ANNUAL WELLNESS VISIT 04/15/2024 HEPATITIS C SCREENING 04/15/2024 COVID-19 Vaccine ( season) 11/09/202402/2021, 06/16/2020 INFLUENZA VACCINE 12/09/2024 12/27/2023, 02/22/2023 LIPID PANEL 07/06/2025 07/06/2024 TDAP/TD VACCINES (4 - Td or Tdap) 11/09/2027 11/08/2017, 06/22/2009, 08/29/2001 ZOSTER VACCINE Completed 04/28/2024, 12/27/2023 Procedures Procedure Name Priority Date/Time Associated Diagnosis Comments ECHO COMPLETE W/ DOPPLER AND COLOR FLOW Routine 11/14/2024 11:32 AM EDT CBC AND DIFFERENTIAL Routine 11/13/2024 12:07 PM EDT CBC WITH AUTO DIFFERENTIAL Routine 11/13/2024 12:07 PM EDT RETICULOCYTES Routine 11/13/2024 12:07 PM EDT FOLATE RBC Routine 11/13/2024 12:07 PM EDT TSH Routine 11/13/2024 12:07 PM EDT HEMOGLOBIN A1C Routine 11/13/2024 12:07 PM EDT MAGNESIUM Routine 11/13/2024 12:07 PM EDT BASIC METABOLIC PANEL Routine 11/13/2024 12:07 PM EDT DUPLEX VENOUS LOWER EXTREMITY BILATERAL CAR STAT 11/13/2024 8:50 AM EDT ECG 12-LEAD Routine 11/13/2024 5:53 AM EDT RESPIRATORY PANEL PCR W/ COVID-19 (SARS-COV-2), SHEET METAL SMITH SWAB IN UTM/VTP, 2 HR TAT Routine 11/13/2024 3:26 AM EDT BLOOD GAS, VENOUS W/CO-OXIMETRY STAT 11/12/2024 11:[address] ANGIOGRAM CHEST PULMONARY EMBOLISM STAT 11/12/2024 7:46 PM EDT COVID-19/FLUA&B/RSV, SHEET METAL SMITH SWAB IN TRANSPORT MEDIA 1 HR TAT STAT 11/12/2024 7:21 PM EDT COVID PRE-OP / PRE-PROCEDURE SCREENING ORDER (NO ISOLATION) STAT 11/12/2024 7:21 PM EDT SODIUM, URINE, RANDOM Add-On 11/12/2024 7:20 PM EDT OSMOLALITY, URINE Add-On 11/12/2024 7:2 0 PM EDT CREATININE URINE RANDOM (KIDNEY FUNCTION) GFR COMPONENT Add-On 11/12/2024 7:20 PM EDT URINALYSIS, MICROSCOPIC ONLY STAT 11/12/2024 7:20 PM EDT URINALYSIS W/ MICROSCOPIC IF INDICATED (NO CULTURE) STAT 11/12/2024 7:20 PM EDT URINE CULTURE STAT 11/12/2024 7:20 PM EDT FERRITIN Add-On 11/12/2024 7:16 PM EDT IRON PROFILE Add-On 11/12/2024 7:16 PM EDT HIGH SENSITIVITIY TROPONIN T 1HR STAT 11/12/2024 7:16 PM EDT XR CHEST 1 VW STAT 11/12/2024 6:30 PM EDT LIGHT BLUE TOP STAT 11/12/2024 5:17 PM EDT CASTELLANO TOP STAT 11/12/2024 5:17 PM EDT GOLD TOP - SST STAT 11/12/2024 5:17 PM EDT LAVENDER TOP STAT 11/12/2024 5:17 PM EDT DK GREEN TOP STAT 11/12/2024 5:17 PM EDT CBC AND DIFFERENTIAL STAT 11/12/2024 5:17 PM EDT VITAMIN B12 Add-On 11/12/2024 5:17 PM EDT FOLATE Add-On 11/12/2024 5:17 PM EDT SCAN SLIDE STAT 11/12/2024 5:17 PM EDT MAGNESIUM STAT 11/12/2024 5:17 PM EDT PHOSPHORUS STAT 11/12/2024 5:17 PM EDT TSH RFX ON ABNORMAL TO FREE T4 STAT 11/12/2024 5:17 PM EDT LIPASE STAT 11/12/2024 5:17 PM EDT LACTIC ACID, PLASMA STAT 11/12/2024 5 :17 PM EDT D-DIMER, QUANTITATIVE STAT 11/12/2024 5:17 PM EDT CBC WITH AUTO DIFFERENTIAL STAT 11/12/2024 5:17 PM EDT TROPONIN STAT 11/12/2024 5:17 PM EDT B-TYPE NATRIURETIC PEPTIDE STAT 11/12/2024 5:17 PM EDT COMPREHENSIVE METABOLIC PANEL STAT 11/12/2024 5:17 PM EDT RAINBOW DRAW STAT 11/12/2024 5:17 PM EDT ECG 12-LEAD STAT 11/12/2024 4:45 PM EDT LIPID PANEL Routine 07/06/2024 Hyperlipidemia LDL goal <55 MAMMO SCREENING DIGITAL TOMOSYNTHESIS BILATERAL W CAD Routine 04/06/2015 9:03 AM EST from Last 3 Months or Most Recently Relevant to Health Maintenance Results * ECHO COMPLETE W/ DOPPLER AND [...] CBC Auto Differential (11/13/2024 12:07 PM EDT) Only the most recent of2 resultswithin the time period is included. WBC 5.41 3.40 - 10.80 10*3/mm3 11/13/2024 12:36 PM EDT [facility] RBC 3.89 3.77 - 5.28 10*6/mm3 11/13/2024 12:36 PM EDT [facility] Hemoglobin 8.1(L) 12.0 - 15.9 g/dL 11/13/2024 12:36 PM EDT [facility] Hematocrit 29.1(L) 34.0 - 46.6 % 11/13/2024 12:36 PM EDT [facility] MCV 74.8(L) 79.0 - 97.0 fL 11/13/2024 12:36 PM EDT [facility] MCH 20.8(L) 26.6 - 33.0 pg 11/13/2024 12:36 PM EDT [facility] MCHC 27.8(L) 31.5 - 35.7 g/dL 11/13/2024 12:36 PM EDT [facility] RDW 19.0(H) 12.3 - 15.4 % 11/13/2024 12:36 PM T [facility] RDW-SD 51.3 37.0 - 54.0 fl 11/13/2024 12:36 PM T [facility] MPV 9.8 6.0 - 12.0 fL 11/13/2024 12:[facility] Platelets 227 140 - 450 10*3/mm3 11/13/2024 12:36 PM EDT [facility] Neutrophil % 63.6 42.7 - 76.0 % 11/13/2024 12:36 PM [facility] Lymphocyte % 23.3 19.6 - 45.3 % 11/13/2024 12:36 PM [facility] Monocyte % 8.9 5.0 - 12.0 % 11/13/2024 12:36 PM [facility] Eosinophil % 2.8 0.3 - 6.2 % 11/13/2024 12:36 PM [facility] Basophil % 0.7 0.0 - 1.5 % 11/13/2024 12:36 PM [facility] Immature Grans % 0.7(H) 0.0 - 0.5 % 11/13/2024 12:36 PM [facility] Neutrophils, Absolute 3.44 1.70 - 7.00 10*3/mm3 11/13/2024 12:36 PM [facility] Lymphocytes, Absolute 1.26 0.70 - 3.10 10*3/mm3 11/13/2024 12:36 PM EDT [facility] Monocytes, Absolute 0.48 0.10 - 0.90 10*3/mm3 11/13/2024 12:36 PM EDT [facility] Eosinophils, Absolute 0.15 0.00 - 0.40 10*3/mm3 11/13/2024 12:36 [facility] Basophils, Absolute 0.04 0.00 - 0.20 10*3/mm3 11/13/2024 12:36 PM EDT [facility] Immature Grans, Absolute 0.04 0.00 - 0.05 10*3/mm3 11/13/2024 12:36 PM EDT [facility] nRBC 0.0 0.0 - 0.2 /100 WBC 11/13/2024 12:36 PM EDT [facility] Blood Venipuncture / Unknown 11/13/2024 12:07 PM EDT 11/13/2024 12:26 PM EDT Aaliyah Abhijeet MIRANDA LAB BLOOD ORDERABLES Final Re sult Performing Organization Address [facility]/ZIP Co de Phone Number [facility]
[address] [place] [address], * (ABNORMAL) Reticulocytes (11/13/2024 12:07 PM EDT) Reticulocyte % 2.78(H) 0.70 - 1.90 % 11/13/2024 12:32 PM EDT [facility] Reticulocyte Absolute 0.1081 0.0200 - 0.1300 10*6/mm3 11/13/2024 12:32 PM EDT [facility] Blood Venipuncture / Unknown 11/13/2024 12:07 PM EDT 11/13/2024 12:26 PM EDT Aaliyah Jha APRN LAB BLOOD ORDERABLES Final Re sult Performing Organization Address City/[facility]/ZIP Co de Phone Number [facility]
[address] [place] [address], * TSH (11/13/2024 12:07 PM EDT) TSH 2.770 0.270 - 4.200 uIU/mL 11/13/2024 12:56 PM EDT [facility] Blood Venipuncture / Unknown 11/13/2024 12:07 PM EDT 11/13/2024 12:26 PM EDT Aaliyahcolleen Jha APRN LAB BLOOD ORDERABLES Final Re sult Performing Organization Address City/[facility]/ZIP Co de Phone Number [facility]
[address] [place] [address], * Magnesium (11/13/2024 12:07 PM EDT) Only the most recent of2 resultswithin the time period is included. Magnesium 1.9 1.6 - 2.4 mg/dL 11/13/2024 12:56 PM EDT [facility] Blood Venipuncture / Unknown 11/13/2024 12:07 PM EDT 11/13/2024 12:26 PM EDT Aaliyah Jha APRN LAB BLOOD ORDERABLES Final Re sult Performing Organization Address [facility] Co de Phone Number [facility]
[address] [place] [address], * (ABNORMAL) Hemoglobin A1c (11/13/2024 12:07 PM EDT) Hemoglobin A1C 5.84(H) 4.80 - 5.60 % 11/13/2024 1:23 PM EDT [facility] Blood Venipuncture / Unknown 11/13/2024 12:07 PM EDT 11/13/2024 12:26 PM EDT Narrative [facility] - 11/13/2024 1:23 PM EDT Hemoglobin A1C Ranges: Increased Risk for Diabetes 5.7% to 6.4% Diabetes >= 6.5% Diabetic Goal < 7.0% Aaliyah Abhijeet MIRANDA LAB BLOOD ORDERABLES Final Re sult Performing Organization Address City/[facility]/ZIP Co de Phone Number [facility]
[address] [place] [address], * Folate RBC (11/13/2024 12:07 PM EDT) [facility] Folate, Hemolysate 538.0 Not Estab. ng/mL 11/16/2024 9:09 AM EDT [facility] Hematocrit 40.7 34.0 - 46.6 % 11/16/2024 9:09 AM EDT [facility] RBC Folate 1322 >498 ng/mL 11/16/2024 9:09 AM EDT [facility] Blood Venipuncture / Unknown 11/13/2024 12:07 PM EDT 11/13/2024 12:26 PM EDT Narrative [facility] - 11/16/2024 9:09 AM EDT Performed at: - [address] [id number] Daycare Director: Gomez Crooks PhD, Phone: [phone] us Aaliyah Jha APRN LAB BLOOD ORDERABLES Edited R esult - Final [facility] [address] [place], [place] [id number], * (ABNORMAL) Basic Metabolic Panel (11/13/2024 12:07 PM EDT) [facility] Glucose 100(H) 65 - 99 mg/dL 11/13/2024 12:56 PM EDT [facility] BUN 19.7 8.0 - 23.0 mg/dL 11/13/2024 12:56 PM EDT [facility] Creatinine 0.93 0.57 - 1.00 mg/dL 11/13/2024 12:56 PM EDT [facility] Sodium 143 136 - 145 mmol/L 11/13/2024 12:56 PM EDT [facility] Potassium 3.8 3.5 - 5.2 mmol/L 11/13/2024 12:56 PM EDT [facility] Chloride 102 98 - 107 mmol/L 11/13/2024 12:56 PM EDT [facility] CO2 31.1(H) 22.0 - 29.0 mmol/L 11/13/2024 12:56 PM EDT [facility] Calcium 8.6 8.6 - 10.5 mg/dL 11/13/2024 12:56 PM EDT [facility] BUN/Creatinine Ratio 21.2 7.0 - 25.0 11/13/2024 12:56 PM EDT [facility] Anion Gap 9.9 5.0 - 15.0 mmol/L 11/13/2024 12:56 PM EDT [facility] eGFR 67.9 >60.0 mL/min/1.7 3 11/13/2024 12:56 PM EDT [facility] Blood Venipuncture / Unknown 11/13/2024 12:07 PM EDT 11/13/2024 12:26 PM EDT Narrative [facility] - 11/13/2024 12:56 PM [...] race as a factor us Aaliyah Jha DITCH RIDER LAB BLOOD ORDERABLES Final Re sult [facility]
[address] [place] [address], * Duplex Venous Lower Extremity - Bilateral [...] is limited due to patient positioning. us Logan Araujo MD CV VASCULAR ORDERABLES F inal Result * ECG 12 Lead Dyspnea (11/13/2024 5:53 AM EDT) Only the most recent of2 resultswithin the time period is included. Pathologist [facility] QT Interval 410 ms ECG QTC [...] change was found Confirmed by ABDULLAHI HENDRICKSON ([id number]) on 11/13/2024 7:39:07 PM Referred By: Confirmed [...] change was found Confirmed by ABDULLAHI HENDRICKSON ([id number]) on 11/13/2024 7:39:07 PM Referred By: Confirmed By: ABDULLAHI HENDRICKSON us Aaliyah Jha APRN ECG ORDERABLES Final Result ECG * Respiratory Panel PCR w/COVID-19(SARS-CoV-2) SIDRA/CHECO/SAUD/PAD/COR/ERIC In-House, SHEET METAL SMITH Swab in UTM/VTM, 2 HR TAT - Swab, Nasopharynx (11/13/2024 3:26 AM EDT) ADENOVIRUS, PCR Not Detected Not Detected [facility] 11/13/2024 4:48 AM EDT [facility] Coronavirus 229E Not Detected Not Detected [facility] 11/13/2024 4:48 AM EDT [facility] Coronavirus HKU1 Not Detected Not Detected [facility] 11/13/2024 4:48 AM EDT [facility] Coronavirus NL63 Not Detected Not Detected [facility] 11/13/2024 4:48 AM EDT [facility] Coronavirus OC43 Not Detected Not Detected [facility] 11/13/2024 4:48 AM EDT [facility] COVID19 Not Detected Not Detected - Ref. Range [facility] 11/13/2024 4:48 AM EDT [facility] Human Metapneumovirus Not Detected Not Detected [facility] 11/13/2024 4:48 AM EDT [facility] Human Rhinovirus/Enterov irus Not Detected Not Detected [facility] 11/13/2024 4:48 AM EDT [facility] Influenza A PCR Not Detected Not Detected [facility] 11/13/2024 4:48 AM EDT [facility] Influenza B PCR Not Detected Not Detected [facility] 11/13/2024 4:48 AM EDT [facility] Parainfluenza Virus 1 Not Detected Not Detected [facility] 11/13/2024 4:48 AM EDT [facility] Parainfluenza Virus 2 Not Detected Not Detected [facility] 11/13/2024 4:48 AM EDT [facility] Parainfluenza Virus 3 Not Detected Not Detected [facility] 11/13/2024 4:48 AM EDT [facility] Parainfluenza Virus 4 Not Detected Not Detected [facility] 11/13/2024 4:48 AM EDT [facility] RSV, PCR Not Detected Not Detected [facility] 11/13/2024 4:48 AM EDT [facility] Bordetella pertussis pcr Not Detected Not Detected [facility] 11/13/2024 4:48 AM EDT [facility] Bordetella parapertussis PCR Not Detected Not Detected [facility] 11/13/2024 4:48 AM EDT [facility] Chlamydophila pneumoniae PCR Not Detected Not Detected [facility] 11/13/2024 4:48 AM EDT [facility] Mycoplasma pneumo by PCR Not Detected Not Detected [facility] 11/13/2024 4:48 AM EDT [facility] Swab Nasopharyngeal structure / Unknown Collection / Unknown 11/13/2024 3:26 AM EDT 11/13/2024 4:00 AM EDT [facility] - 11/13/2024 4:48 AM [...] MICROBIOLOGY - GENERAL ORDERA BLES Final Result [facility]
[address] [place] [address], * (ABNORMAL) Blood Gas, Venous With Co-Ox (11/12/2024 11:16 PM EDT) Site Nurse/Dr Draw 11/12/2024 11:17 PM EDT [facility] pH, Venous 7.337 7.310 - 7.410 pH Units 11/12/2024 11:17 PM EDT [facility] pCO2, Venous 59.6(H) 41.0 - 51.0 mm Hg 11/12/2024 11:17 PM EDT [facility] Comment:83 Value above refer ence range pO2, Venous 30.4 27.0 - 53.0 mm Hg 11/12/2024 11:17 PM EDT [facility] HCO3, Venous 31.9(H) 22.0 - 28.0 mmol/L 11/12/2024 11:17 PM EDT [facility]ER[facility] Base Excess, Venous 5.0(H) -2.0 - 2.0 mmol/L 11/12/2024 11:17 PM EDT [facility] Hemoglobin, Blood Gas 9.3(L) 14 - 18 g/dL 11/12/2024 11:17 PM EDT [facility] Oxyhemoglobin Venous 48.3 % 06/2024 11:17 PM EDT [facility] Methemoglobin Venous 0.4 % 06/2024 11:17 PM EDT [facility] Carboxyhemoglobin Venous 1.7 % 11/12/2024 11:17 PM EDT [facility] CO2 Content 33.7(H) 22 - 33 mmol/L 11/12/2024 11:17 PM EDT [facility] Temperature 37.0 11/12/2024 11:17 PM EDT [facility] Barometric Pressure for Blood Gas 11/12/2024 11:17 PM EDT [facility] Comment:N/A Modality Nasal Cannula 11/12/2024 11:17 PM EDT [facility] FIO2 28 % 11/12/2024 11:17 PM EDT [facility] Rate 0 Breaths/ minute 11/12/2024 11:17 PM EDT [facility] PIP 0 cmH2O 11/12/2024 11:17 PM EDT [facility] Comment:Meter: [id number] Basket Bottom Machine Operator: [id number] IPAP 0 11/12/2024 11:17 PM EDT [facility] EPAP 0 11/12/2024 11:17 PM EDT [facility] Venous Blood 11/12/2024 11:1 6 PM EDT 11/12/2024 11:16 PM EDT us Logan Araujo MD LAB BLOOD ORDERABLES Fin al Result [facility]
[address] [place] [address], * CT Angiogram Chest Pulmonary Embolism (11/12/2024 7:46 PM EDT) Anatomical Region Laterality Modality Chest N/A Computed Tomogra phy 11/12/2024 8:22 PM EDT Impressions 11/12/2024 8:31 PM EDT No evidence of pulmonary embolus. No acute abnormality. Electronically Signed: Jed Machuca MD 11/12/2024 8:31 PM EDT Workstation ID: [id number] Narrative 11/12/2024 8:[address] ANGIOGRAM [...] MD 11/12/2024 8:31 PM EDT Workstation ID: [id number] Logan Araujo MD IMG CT ORDERABLES Final Result * COVID-19, FLU A/B, RSV PCR 1 HR TAT - Swab, Nasopharynx (11/12/2024 7:21 PM EDT) COVID19 Not Detected Not Detected - Ref. Range CEPHEID GENEXPERT 11/12/2024 8:24 PM EDT [facility] Influenza A PCR Not Detected Not Detected CEPHEID GENEXPERT 11/12/2024 8:24 PM EDT [facility] Influenza B PCR Not Detected Not Detected CEPHEID GENEXPERT 11/12/2024 8:24 PM EDT [facility] RSV, PCR Not Detected Not Detected CEPHEID GENEXPERT 11/12/2024 8:24 PM EDT [facility] Swab Nasopharyngeal structure / Unknown Collection / Unknown 11/12/2024 7:21 PM EDT 11/12/2024 7:46 PM EDT Logan Araujo MD MICROBIOLOGY - GENERAL O RDERABLES Final Result [facility]
[address] [place] [address], * (ABNORMAL) Urinalysis, Microscopic Only - Urine, Clean Catch (11/12/2024 7:20 PM EDT) RBC, UA 0-2 None Seen, 0-2 /HPF 11/12/2024 8:00 PM EDT [facility] WBC, UA 11-20(A) None Seen, 0-2 /HPF 11/12/2024 8:00 PM EDT [facility] Bacteria, UA None Seen None Seen /HPF 11/12/2024 8:00 PM EDT [facility] Squamous Epithelial Cells, UA 3-6(A) None Seen, 0-2 /HPF 11/12/2024 8:00 PM EDT [facility] Hyaline Casts, UA 0-2 None Seen /LPF 11/12/2024 8:00 PM EDT [facility] Methodology Automated Microscopy 11/12/2024 8:00 PM EDT [facility] Urine Urine specimen obtained by clean catch procedure / Unknown Collection / Unknown 11/12/2024 7:20 PM EDT 11/12/2024 7:46 PM EDT us Logan Araujo MD URINE ORDERABLES Final R esult [facility]
[address] [place] [address], * (ABNORMAL) Urinalysis With Microscopic If Indicated (No Culture) - Urine, Clean Catch (11/12/2024 7:20 PM EDT) Color, UA Yellow Yellow, Straw 11/12/2024 8:00 PM EDT [facility] Appearance, UA Clear Clear 11/12/2024 8:00 PM EDT [facility] pH, UA 5.5 5.0 - 8.0 11/12/2024 8:00 PM EDT [facility] Specific Dexter, UA >1.030(H) 1.005 - 1.030 11/12/2024 8:00 PM EDT [facility] Glucose, UA Negative Negative 11/12/2024 8:00 PM EDT [facility] Ketones, UA Negative Negative 11/12/2024 8:00 PM EDT [facility] Bilirubin, UA Negative Negative 11/12/2024 8:00 PM EDT [facility] Blood, UA Negative Negative 11/12/2024 8:00 PM EDT [facility] Protein, UA Trace(A) Negative 11/12/2024 8:00 PM EDT [facility] Leuk Esterase, UA Small (1+)(A) Negative 11/12/2024 8:00 PM EDT [facility] Nitrite, UA Negative Negative 11/12/2024 8:00 PM EDT [facility] Urobilinogen, UA 1.0 E.U./dL 0.2 - 1.0 E.U./dL 11/12/2024 8:00 PM EDT [facility] Urine Urine specimen obtained by clean catch procedure / Unknown Collection / Unknown 11/12/2024 7:20 PM EDT 11/12/2024 7:46 PM EDT Logan Araujo MD URINE ORDERABLES Final R esult [facility]
[address] [place] [address], * Sodium, Urine, Random - Urine, Clean Catch (11/12/2024 7:20 PM EDT) Sodium, Urine <20 mmol/L 11/13/2024 3:37 AM EDT [facility] Urine Urine specimen obtained by clean catch procedure / Unknown Collection / Unknown 11/12/2024 7:20 PM EDT 11/12/2024 7:46 PM EDT Narrative [facility] - 11/13/2024 3:37 AM EDT Reference intervals for random urine have not been established. Clinical usage is dependent upon physician's interpretation in combination with other laboratory tests. us Aaliyah Jha APRN URINE ORDERABLES Final Result Performing Organization Address [facility]/ZIP Co de Phone Number [facility]
[address] [place] [address], [place] [phone] * Osmolality, Urine - Urine, Clean Catch (11/12/2024 7:20 PM EDT) Osmolality, Urine 837 300 - 1,100 mOsm/kg 11/13/2024 4:00 AM EDT [facility] Urine Urine specimen obtained by clean catch procedure / Unknown Collection / Unknown 11/12/2024 7:20 PM EDT 11/12/2024 7:46 PM EDT us Chatmancolleen Jha APRN URINE ORDERABLES Final Result Performing Organization Address [facility] de Phone Number [facility]
[address] [place] [address], [place] [phone] * Creatinine Urine Random (kidney function) GFR component - Urine, Clean Catch (11/12/2024 7:20 PM EDT) Creatinine, Urine 276.6 mg/dL 11/13/2024 9:46 AM EDT [facility] Urine Urine specimen obtained by clean catch procedure / Unknown Collection / Unknown 11/12/2024 7:20 PM EDT 11/13/2024 3:13 AM EDT Narrative [facility] - 11/13/2024 9:46 AM EDT Reference intervals for random urine have not been established. Clinical usage is dependent upon physician's interpretation in combination with other laboratory tests. us Chatmancolleen Jha APRN URINE ORDERABLES Final Result Performing Organization Address [facility] Co de Phone Number [facility]
[address] [place] [address], [place] [phone] * Urine Culture - Urine, Urine, Clean Catch (11/12/2024 7:20 PM EDT) Urine Culture No growth YUMIKO 11/14/2024 12:26 PM EDT [facility] Urine Urine specimen obtained by clean catch procedure / Unknown Collection / Unknown 11/12/2024 7:20 PM EDT 11/13/2024 12:57 AM EDT Logan Araujo MD MICROBIOLOGY - GENERAL O RDERABLES Final Result Performing Organization Address [facility]/ZIP Co de Phone Number [facility]
[address] [place] [address], [place] [phone] * (ABNORMAL) High Sensitivity Troponin T 1Hr (11/12/2024 7:16 PM EDT) [facility] HS Troponin T 16(H) <14 ng/L 11/12/2024 7:53 PM EDT [facility] Troponin T Numeric Delta -1 ng/L 11/12/2024 7:53 PM EDT [facility] Troponin T % Delta -6 Abnormal if >/= 20% 11/12/2024 7:53 PM EDT [facility] Blood Line / Unknown 11/12/2024 7: 16 PM EDT 11/12/2024 7:20 PM EDT [facility] - 11/12/2024 7:53 PM EDT High [...] injury due to an underlying chronic condition. Logan Araujo MD LAB BLOOD ORDERABLES Fin al Result Performing Organization Address City/[facility]/ZIP Co de Phone Number [facility]
[address] [place] [address], [place] [phone] * (ABNORMAL) Iron Profile w/o Ferritin (11/12/2024 7:16 PM EDT) Iron 21(L) 37 - 145 mcg/dL 11/13/2024 3:24 AM EDT [facility] Iron Saturation (TSAT) 4(L) 20 - 50 % 11/13/2024 3:24 AM EDT [facility] Transferrin 321 200 - 360 mg/dL 11/13/2024 3:24 AM EDT [facility] TIBC 478 298 - 536 mcg/dL 11/13/2024 3:24 AM EDT [facility] Blood Venipuncture / Unknown 11/12/2024 7:16 PM EDT 11/13/2024 2:57 AM EDT Aaliyah Jha APRN LAB BLOOD ORDERABLES Final Re sult Performing Organization Address [facility]/ZIP Co de Phone Number [facility]
[address] [place] [address], [place] [phone] * Ferritin (11/12/2024 7:16 PM EDT) Ferritin 13.80 13.00 - 150.00 ng/mL 11/13/2024 3:24 AM EDT [facility] Blood Venipuncture / Unknown 11/12/2024 7:16 PM EDT 11/13/2024 2:57 AM EDT Narrative [facility] - 11/13/2024 3:24 AM EDT Results may be falsely decreased if patient taking Biotin. Aaliyah Jha APRN LAB BLOOD ORDERABLES Final Re sult Performing Organization Address City/[facility]/ZIP Co de Phone Number [facility]
[address] [place] [address], [place] [phone] * XR Chest 1 View (11/12/2024 6:30 PM EDT) Anatomical Region Laterality Modality Body N/A Radiographic Tatyana ging 11/12/2024 7:00 PM EDT Impressions 11/12/2024 7:02 PM EDT Impression: 1. No acute cardiopulmonary disease. Electronically Signed: Arben Neely MD 11/12/2024 7:02 PM EDT Workstation ID: [id number] Narrative 11/12/2024 7:02 PM EDT XR CHEST [...] MD 11/12/2024 7:02 PM EDT Workstation ID: [id number] Logan Araujo MD IMG DIAGNOSTIC IMAGING O RDERABLES Final Result * Castellano Top (11/12/2024 5:17 PM EDT) Extra Tube Hold for add-ons. 11/12/2024 5:32 PM EDT [facility] Comment:Auto resulted. Blood Venipuncture / Unknown 11/12/2024 5:17 PM EDT 11/12/2024 5:17 PM EDT Logan Araujo MD LAB BLOOD ORDER ONLY Fin al Result [facility]
[address] [place] [address], * TSH Rfx On Abnormal To Free T4 (11/12/2024 5:17 PM EDT) TSH 2.480 0.270 - 4.200 uIU/mL 11/12/2024 5:51 PM EDT [facility] Blood Venipuncture / Unknown 11/12/2024 5:17 PM EDT 11/12/2024 5:17 PM EDT Logan Araujo MD LAB BLOOD ORDERABLES Fin al Result Performing Organization Address City/[facility]/ZIP Co de Phone Number [facility]
[address] [place] [address], * Gold Top - SST (11/12/2024 5:17 PM EDT) Extra Tube Hold for add-ons. 11/12/2024 5:32 PM EDT [facility] Comment:Auto resulted. Blood Venipuncture / Unknown 11/12/2024 5:17 PM EDT 11/12/2024 5:17 PM EDT Logan Araujo MD LAB BLOOD ORDER ONLY Fin al Result Performing Organization Address [facility]/ZIP Co de Phone Number [facility]
[address] [place] [address], [place] [phone] * Green Top (Gel) (11/12/2024 5:17 PM EDT) Extra Tube Hold for add-ons. 11/12/2024 5:31 PM EDT [facility] Comment:Auto resulted. Blood Venipuncture / Unknown 11/12/2024 5:17 PM EDT 11/12/2024 5:17 PM EDT Logan Araujo MD LAB BLOOD ORDER ONLY Fin al Result [facility]
[address] [place] [address], [place] [phone] * Scan Slide (11/12/2024 5:17 PM EDT) Anisocytosis Slight/1+ None Seen 11/12/2024 6:07 PM EDT [facility] Hypochromia Slight/1+ None Seen 11/12/2024 6:07 PM EDT [facility] Microcytes Mod/2+ None Seen 11/12/2024 6:07 PM EDT [facility] WBC Morphology Normal Normal 11/12/2024 6:07 PM EDT [facility] Platelet Morphology Normal Normal 11/12/2024 6:07 PM EDT [facility] Blood Venipuncture / Unknown 11/12/2024 5:17 PM EDT 11/12/2024 5:17 PM EDT Logan Araujo MD LAB BLOOD ORDERABLES Fin al Result [facility]
[address] [place] [address], [place] [phone] * Lavender Top (11/12/2024 5:17 PM EDT) Extra Tube hold for add-on 11/12/2024 5:31 PM EDT [facility] Comment:Auto resulted Blood Venipuncture / Unknown 11/12/2024 5:17 PM EDT 11/12/2024 5:17 PM EDT Logan Araujo MD LAB BLOOD ORDER ONLY Fin al Result [facility]
[address] [place] [address], [place] [phone] * Light Blue Top (11/12/2024 5:17 PM EDT) Extra Tube Hold for add-ons. 11/12/2024 5:31 PM EDT [facility] Comment:Auto resulted Blood Venipuncture / Unknown 11/12/2024 5:17 PM EDT 11/12/2024 5:17 PM EDT Logan Araujo MD LAB BLOOD ORDER ONLY Fin al Result Performing Organization Address City/[facility]/ZIP Co de Phone Number [facility]
[address] [place] [address], * (ABNORMAL) High Sensitivity Troponin T (11/12/2024 5:17 PM EDT) [facility] HS Troponin T 17(H) <14 ng/L 11/12/2024 5:51 PM EDT [facility] Blood Venipuncture / Unknown 11/12/2024 5:17 PM EDT 11/12/2024 5:17 PM EDT Narrative [facility] - 11/12/2024 5:51 PM [...] injury due to an underlying chronic condition. Logan Araujo MD LAB BLOOD ORDERABLES Fin al Result Performing Organization Address City/[facility]/ZIP Co de Phone Number [facility]
[address] [place] [address], * (ABNORMAL) D-dimer, Quantitative (11/12/2024 5:17 PM EDT) [facility] D-Dimer, Quantitative 10.36(H) 0.00 - 0.66 MCGFEU/mL 11/12/2024 6:00 PM EDT [facility] Blood Venipuncture / Unknown 11/12/2024 5:17 PM EDT 11/12/2024 5:17 PM EDT Narrative [facility] - 11/12/2024 6:00 PM EDT According to the assay custom shop worker's published package insert, a normal (<0.50 MCGFEU/mL) D-dimer result in conjunction with a non-high clinical probability assessment, excludes deep vein thrombosis (DVT) and pulmonary embolism (PE) with high sensitivity. D-dimer values increase with age and this can make VTE exclusion of an older population difficult. To address this, the [employer], based on best available [...] and an 80 year old 0.80 MCGFEU/mL. Logan Araujo MD LAB BLOOD ORDERABLES Fin al Result Performing Organization Address City/[facility]/ZIP Co de Phone Number [facility]
[address] [place] [address], * Phosphorus (11/12/2024 5:17 PM EDT) [facility] Signature Phosphorus 4.1 2.5 - 4.5 mg/dL 11/12/2024 5:51 PM EDT [facility] Blood Venipuncture / Unknown 11/12/2024 5:17 PM EDT 11/12/2024 5:17 PM EDT Logan Araujo MD LAB BLOOD ORDERABLES Fin al Result Performing Organization Address City/[facility]/ZIP Co de Phone Number [facility]
[address] [place] [address], [place] [phone] * BNP (11/12/2024 5:17 PM EDT) proBNP 247.0 0.0 - 900.0 pg/mL 11/12/2024 5:51 PM EDT [facility] Blood Venipuncture / Unknown 11/12/2024 5:17 PM EDT 11/12/2024 5:17 PM EDT Narrative [facility] - 11/12/2024 5:51 PM [...] >75 Positive >1800 Castellano 300-1800 Negative <300 Logan Araujo MD LAB BLOOD ORDERABLES Fin al Result [facility]
[address] [place] [address], [place] [phone] * Lipase (11/12/2024 5:17 PM EDT) Lipase 20 13 - 60 U/L 11/12/2024 5:51 PM EDT [facility] Blood Venipuncture / Unknown 11/12/2024 5:17 PM EDT 11/12/2024 5:17 PM EDT Logan Araujo MD LAB BLOOD ORDERABLES Fin al Result [facility]
[address] [place] [address], [place] [phone] * Lactic Acid, Plasma (11/12/2024 5:17 PM EDT) [facility] Lactate 1.6 0.5 - 2.0 mmol/L 11/12/2024 5:49 PM EDT [facility] Comment:Falsely depressed re sults may occur on samples drawn from patients receiving N-Acetylcysteine (NAC) or Metamizole. Blood Venipuncture / Unknown 11/12/2024 5:17 PM EDT 11/12/2024 5:17 PM EDT Logan Araujo MD LAB BLOOD ORDERABLES Fin al Result [facility]
[address] [place] [address], * Folate (11/12/2024 5:17 PM EDT) [facility] Folate >20.00 4.78 - 24.20 ng/mL 11/13/2024 9:54 AM EDT [facility] Blood Venipuncture / Unknown 11/12/2024 5:17 PM EDT 11/13/2024 2:59 AM EDT Narrative [facility] - 11/13/2024 9:54 AM EDT Results may be falsely increased if patient taking Biotin. Aaliyah Jha APRN LAB BLOOD ORDERABLES Final Re sult [facility]
[address] [place] [address], [place] [phone] * (ABNORMAL) Vitamin B12 (11/12/2024 5:17 PM EDT) [facility] Vitamin B-12 1,669(H) 211 - 946 pg/mL 11/13/2024 9:54 AM EDT [facility] Blood Venipuncture / Unknown 11/12/2024 5:17 PM EDT 11/13/2024 2:59 AM EDT Narrative [facility] - 11/13/2024 9:54 AM EDT Results may be falsely increased if patient taking Biotin. us Aaliyah Abhijeet MIRANDA LAB BLOOD ORDERABLES Final Re sult [facility]
[address] [place] [address], * (ABNORMAL) Comprehensive Metabolic Panel (11/12/2024 5:17 PM EDT) Glucose 96 65 - 99 mg/dL 11/12/2024 5:51 PM EDT [facility] BUN 24.7(H) 8.0 - 23.0 mg/dL 11/12/2024 5:51 PM EDT [facility] Creatinine 1.06(H) 0.57 - 1.00 mg/dL 11/12/2024 5:51 PM EDT [facility] Sodium 139 136 - 145 mmol/L 11/12/2024 5:51 PM EDT [facility] Potassium 4.4 3.5 - 5.2 mmol/L 11/12/2024 5:51 PM EDT [facility] Chloride 101 98 - 107 mmol/L 11/12/2024 5:51 PM EDT [facility] CO2 27.9 22.0 - 29.0 mmol/L 11/12/2024 5:51 PM EDT [facility] Calcium 9.1 8.6 - 10.5 mg/dL 11/12/2024 5:51 PM EDT [facility] Total Protein 6.4 6.0 - 8.5 g/dL 11/12/2024 5:51 PM EDT [facility] Albumin 4.0 3.5 - 5.2 g/dL 11/12/2024 5:51 PM EDT [facility] ALT (SGPT) 15 1 - 33 U/L 11/12/2024 5:51 PM EDT [facility] AST (SGOT) 27 1 - 32 U/L 11/12/2024 5:51 PM EDT [facility] Alkaline Phosphatase 113 39 - 117 U/L 11/12/2024 5:51 PM EDT [facility] Total Bilirubin 0.2 0.0 - 1.2 mg/dL 11/12/2024 5:51 PM EDT [facility] Globulin 2.4 gm/dL 11/12/2024 5:51 PM EDT [facility] Comment:Calculated Result A/G Ratio 1.7 g/dL 11/12/2024 5:51 PM EDT [facility] BUN/Creatinine Ratio 23.3 7.0 - 25.0 11/12/2024 5:51 PM EDT [facility] Anion Gap 10.1 5.0 - 15.0 mmol/L 11/12/2024 5:51 PM EDT [facility] eGFR 58.1(L) >60.0 mL/min/1.7 3 11/12/2024 5:51 PM EDT [facility] Blood Venipuncture / Unknown 11/12/2024 5:17 PM EDT 11/12/2024 5:17 PM EDT [facility] - 11/12/2024 5:51 PM [...] not include race as a factor us Logan Araujo MD LAB BLOOD ORDERABLES Fin al Result [facility]
[address] [place] [phone] * Lipid Panel (07/06/2024) Blood us Christy Kirk MD LAB BLOOD ORDERABLES Final Resul t [facility] * Mammo screening digital [...] in patients with adenosis or dense breasts. [employer] For breast cancer detection in asymptomatic women- Age ACR Recommendations 35-40 Baseline Mammogram 40-49 Annual or Biannual Mammogram 50+ Annual Mammogram Annual physical and frequent self breast examination. Patient has been entered into an automatic reminder system. Addendum Reading Radiologist- DIYA GOEL Addendum Releasing Radiologist- DIYA GOEL Addendum Released Date Time- 04/19/15 7960 Addendum History Professor- Jaylen BILATERAL SCREENING MAMMOGRAM WITH TOMOSYNTHESIS PNL- [...] in patients with adenosis or dense breasts. [employer] For breast cancer detection in asymptomatic women- Age ACR Recommendations 35-40 Baseline Mammogram 40-49 Annual or Biannual Mammogram 50+ Annual Mammogram Annual physical and frequent self breast examination. Patient has been entered into an automatic reminder system. Reading Radiologist- DIYA GOEL Releasing Radiologist- DIYA GOEL Released Date Time- 04/06/15 1055 History Professor- Dave Procedure Note Diya Goel Jr., MD - 04/19/2015 ADDENDUM- Patient's previous [...] in patients with adenosis or dense breasts. [employer] For breast cancer detection in asymptomatic women- Age ACR Recommendations 35-40 Baseline Mammogram 40-49 Annual or Biannual Mammogram 50+ Annual Mammogram Annual physical and frequent self breast examination. Patient has been entered into an automatic reminder system. Addendum Reading Radiologist- DIYA GOEL Addendum Releasing Radiologist- DIYA GOEL Addendum Released Date Time- 04/19/15 1460 Addendum History Professor- Jaylen BILATERAL SCREENING MAMMOGRAM WITH TOMOSYNTHESIS PNL- [...] in patients with adenosis or dense breasts. [employer] For breast cancer detection in asymptomatic women- Age ACR Recommendations 35-40 Baseline Mammogram 40-49 Annual or Biannual Mammogram 50+ Annual Mammogram Annual physical and frequent self breast examination. Patient has been entered into an automatic reminder system. Reading RadiologistAndre GOEL Releasing RadiologistAndre GOEL Released Date Time- 04/06/15 1055 History Professor- C.B. Gregorio HOWARD MAMMOGRAPHY ORDERABLES Edite d Result - Final from Last 3 Months or Most Recently Relevant to Health Maintenance Insurance MEDICARE A & B Advance Directives * CPR (Attempt to Resuscitate) (Latest Code Status on File) Date Activated Date Inactivated Comments 11/13/2024 2:01 AM 11/14/2024 6:43 PM Question Answer Comments Code Status (Patient has no pulse and is not breathing): CPR (Attempt to Resuscitate) Medical Interventions (Patie nt has pulse or is breathing): Full Support Care Teams Aerospace Medicine Physician Relationship Specialty Start Date End Date Sandra Orozco APRN [address] [address] [place] [address] PCP - General Internal Medicine 05/11/24
--- OUTSIDE RECORDS SUMMARY | 2024-11-24 11:19 | XMS_ITS | Encounter Summary ---
Author Organization [facility] Address [address] [place] [address] Care Team Providers Care Adolescent Coordinator Name Role Phone Sandra Orozco APRN Primary Care Provider [phone] Encounter Details Date Type Department Care Team (Late st Contact Info) Description 11/10/2024 Telephone [facility] [address] [facility] [address] [place] [phone] Christy Kirk MD [address] [facility] [address] [place] [address] Social History Tobacco Use Types Packs/Day Years [...] encounter Miscellaneous Notes * Telephone Encounter - Naman Harrington RegSched Rep - 11/10/2024 2:27 PM EDT LVM TO SCHED PT SOONER APPT - NEXT AVAIL THURS 11/12 Nick/ KALIN * Telephone Encounter - Karlee Benites MA - 11/10/2024 2:11 PM EDT THE PATIENT CALLED AND NEEDS SOONER APT. SHE SAW LUNG DOCTOR TODAY AND HE TOLD HER SHE NEEDED A SOONER APT. SHE CAN BE REACHED AT [phone] documented in this encounter Plan of Treatment Upcoming Encounters Date Type Department Care Team (Late st Contact Info) Description 11/26/2024 11:00 AM EDT Office Visit [facility] [address] [facility], [place] [address] Kalin Solano APRN [address] [facility] [address], [place] [address] documented as of this encounter Visit Diagnoses Not on filedocumented in this encounter Care Teams Adolescent Coordinator Relationship Specialty Start Date End Date Sandra Orozco APRN [facility] [address] [place] [address] PCP - General Internal Medicine 05/11/24 documented as of this encounter
--- OUTSIDE RECORDS SUMMARY | 2024-11-24 11:19 | XMS_ITS | Clinical Summary ---
Author Organization [facility] Address [address] [place] [address] Care Team Providers Care Jitterbug Operator Name Role Phone Adryan Cooper MD Primary Care Provider [phone] Allergies Active Allergy Reactions Criticality Noted Date [...] tablet (5 mg). 05/28/2016 Active HYDROcodone-gudelia taminophen ([place]) 10-325 MG tablet 1 tablet (10 mg [...] 2) 2008 [facility]-Breast Cancer Screening 04/06/201703/12, 04/06/2015 [id number] Vaccine ( season) 2024 01/20/2021, 06/16/2020 [facility]-Influenza Vaccine (#1) 2024 02/22/2023 [...] age to complete this [place] [phone] COMBINED PRIORITY 1 CARD Care Teams Jitterbug Operator Relationship Specialty Start Date End Date Adryan Cooper MD [address] [place] [address] PCP - General 07/22/20
--- OUTSIDE RECORDS SUMMARY | 2024-11-24 11:19 | XMS_ITS | Encounter Summary ---
Author Organization [employer] ([place], [place], [place], [place]) Address [address] [place] [address] Care Team Providers Care Arabic Translator Name Role Phone Sandra Orozco RUBEN Primary Care Provider [phone] Encounter Details Date Type Department Care Team (Late st Contact Info) Description 01/25/2020 Transcribed Document [facility] [place] [address] [place] [address] ProviderAide MD [address] [place] [address] Social History Tobacco Use Types Packs/Day Years Used Date Smoking Tobacco: Never Assessed Comments Unknown Sex and Gender Information Value Date Recorded Sex Assigned at Not on file Legal Sex Female 2:35 PM CDT Gender Identity Not on file Sexual Orientation Not on file documented as of this encounter Miscellaneous Notes * Cerner Conversion Note - Historical ProviderMD - 01/25/2020 6:55 AM REPEAT CHIEF DATE OF ADMISSION: 01/22/2020 HISTORY OF PRESENT [...] applying ice and heat, physical therapy, exercise, pyje-ols-cygqyqi medication, bed rest going to [facility], [...] to contact her primary physician and her calender let off operator to see if we can hold the [...] visit and the patient has been afebrile. /[id number] Karim Chaparro, MD, JELANI Pain Certified KR/AQ / KR / MODL CC: MD Sandra Valero APRN Electronically signed by Interface, [facility] Conversion Serology Teacher Cerner at 06/27/2022 8:04 AM CDT documented in this encounter Plan of Treatment Not on file documented as of this encounter Visit Diagnoses Not on filedocumented in this encounter Care Teams Arabic Translator Relationship Specialty Start Date End Date Sandra Orozco, RUBEN [address] [address] PCP - General Nurse Practitioner 01/24/22 documented as of this encounter
--- OUTSIDE RECORDS SUMMARY | 2024-11-24 11:19 | XMS_ITS | Encounter Summary ---
[facility] Organization [facility] Address [address] [place] [address] Care Team Providers Care Flat Bed Operator Name Role Phone Sandra Orozco APRN Primary Care Provider [phone] Encounter Details Date Type Department Care Team (Latest Contact Info) Description 11/12/2024 Travel Social History Tobacco Use Types Packs/Day Years Used Date Smoking Tobacco: Former Cigarettes Smokeless Tobacco: Never Comments:Smoked since 1973 Alcohol Use Standard Drinks/Week Comments Not Currently 0 (1 standard drink = 0.6 oz pur e alcohol) former [facility] Utilities Answer Date Recorded In the past 12 months has e electric, gas, oil, or water company threatened [...] care, and heating? Not very hard 11/13/2024 [facility] of Occupat ional Health - Occupational Stress [...] GED or equivalent No 11/13/2024 Preferred Language Salvadorean 11/13/2024 PHQ-2 Answer Date Recorded Patient Health Questionnaire-2 Score 0 11/13/2024 Comments No Sex and Gender Information Value Date Recorded Sex Assigned at Female 07/09/2024 8:35 PM EDT Legal Sex Female 8:53 AM EST Gender Identity Not on file Sexual Orientation Straight 07/09/2024 8: 35 PM EDT documented as of this encounter Functional Status * Calculated C-SSRS Risk Score (Lifetime/Recent) Answer Date of Assessment Author No Risk Indicated 11/12/2024 4:43 PM EDT Minna Gamez, BERNICE * [place] Suicide Severity Rating Scale (Screener/Recent Self-Report) Question Answer Date of Assessment Author 1. Wish to be (Past 1 Month) No 025 4:43 PM EDT Minna Gamez, BERNICE 2. Non-Specific Active Suici jesús Thoughts (Past 1 Month) No 11/12/2024 4:43 PM EDT Minna Gamez , BERNICE 6. Suicidal Behavior (Lifetime) No 4:43 PM EDT Minna Gamez, BERNICE documented as of this encounter Plan of Treatment Upcoming Encounters Date Type Department Care Team (Late st Contact Info) Description 11/26/2024 11:00 AM EDT Office Visit [facility] [address] [facility] [address] [address] Dina Solano APRN [address] [facility] [address] [place] [address] documented as of this encounter Visit Diagnoses Not on filedocumented in this encounter Additional Health Concerns Infection Onset Date Last Indicated Resolved Time COVID Screen (preop/placement) 11/12/2024 11/12/2024 11/12/2024 8:24 PM EDT documented as of this encounter Care Teams Flat Bed Operator Relationship Specialty Start Date End Date Sandra Orozco APRN [address] [place] [address] PCP - General Internal Medicine 05/11/24 documented as of this encounter
--- OUTSIDE RECORDS SUMMARY | 2024-11-24 11:19 | XMS_ITS | Referral Summary ---
Author Organization [employer] ([place], [place], [place], [place]) Address [address] [place] [address] Care Team Providers Care Patch Washer Name Role Phone OrozcoKrystenrafael MIRANDA Primary Care [...] your living situation today? I have a [facility] place to live 10/13/2023 Think [...] Do you speak a language other than Wolof at [facility]? No 10/13/2023 Do you want [...] on file Medical Devices Implanted Type Area Bleach Boiler Puller Device Identifier Shelf Expiration Date Model / Serial / Lot Sealant Durasl Spine 5ml [id number] - [id number] Implanted:Qty: 1 on 01/31/2022 by Emeka Fernández MD at [facility] IMPLANTS N/A: Back [employer] 07/09/[id number] / [id number] Cement Spinal Confidence 2839-10-000 - [id number] Implanted:Qty: 2 on 10/14/2023 at [facility] IMPLANTS N/A: Back J &J:DEPUY:DEPUY SPINE 06/08/2025 0 / / [id number] Insurance MEDICARE PART A B GENERIC COMMERCIAL Advance Directives For more information, please contact: [phone] Documents on File Type Date Recorded Patient Technology Professional Expl anation Advance Directives and Marixa g [...] Son First Alternate Healthcare Decision-Maker Care Teams Patch Washer Relationship Specialty Start Date End Date Sandra Orozco, RUBEN [address] [place] [address] PCP - General Nurse Practitioner 01/24/22
--- OUTSIDE RECORDS SUMMARY | 2024-11-24 11:19 | XMS_ITS | Encounter Summary ---
Author Organization [facility] Address [address] [place] [address] Care Team Providers Care Ramp Service Man Name Role Phone Sandra Orozco APRN Primary Care Provider Encounter Details Date Type Department Care Team (Late st Contact Info) Description 11/12/2024 Patient rounding ([facility] [place] [facility] [address] [facility] [address], [place] [address] Dina Solano APRN [address] [facility] [address] [place] [address] Social History Tobacco Use Types Packs/Day Years Used Date Smoking Tobacco: Former Cigarettes Smokeless Tobacco: Never Comments:Smoked since 1973 Alcohol Use Standard Drinks/Week Comments Not Currently 0 (1 standard drink = 0.6 oz pur e alcohol) former [facility] Utilities Answer Date Recorded In the past 12 months has [employer] electric, gas, oil, or water company threatened [...] care, and heating? Not very hard 11/13/2024 [facility] [place] of Occupat ional Health - Occupational Stress [...] GED or equivalent No 11/13/2024 Preferred Language Macanese 11/13/2024 PHQ-2 Answer Date Recorded Patient Health Questionnaire-2 Score 0 11/13/2024 Comments No Sex and Gender Information Value Date Recorded Sex Assigned at Female 07/09/2024 8:35 PM EDT Legal Sex Female 8:53 AM EST Gender Identity Not on file Sexual Orientation Straight 07/09/2024 8: 35 PM EDT documented as of this encounter Progress Notes * Evi Juarez RegSched Rep - 11/12/2024 4:20 PM EDT My name is Joaquina Sears, and I am the Flight Reservations Manager for [facility] [place]. I would like to thank you for being a loyal patient. If you do not mind, I would like to ask you questions about your recent visit with us. Please feel free to reply if you wish to provide us with feedback on your visit with our practice. First, could you tell me what went well with your recent visit? Secondly, we are always looking for ways to make our patients' experiences even better. Do you haveany recommendations on ways we may improve? Finally, overall were you satisfied with your visit with us as a [facility] facility? Over the next few days, you will be receiving a Patient Experience Survey. Please consider taking the survey, as it helps [facility] in improving their patient care. Thank you for taking the time to answer our questions today. I hope you have a good day. documented in this encounter Plan of Treatment Upcoming Encounters Date Type Department Care Team (Late st Contact Info) Description 11/26/2024 11:00 AM EDT Office Visit [facility] [address] [facility] [address] [place] [address] Dina Solano APRN [address] [facility] [address] [place] [address] documented as of this encounter Visit Diagnoses Not on filedocumented in this encounter Care Teams Ramp Service Man Relationship Specialty Start Date End Date Sandra Orozco APRN Counts include 234 beds at the [facility] [address] [facility] [address] [place] [address] PCP - General Internal Medicine 05/11/24 documented as of this encounter
--- OUTSIDE RECORDS SUMMARY | 2024-11-24 11:19 | XMS_ITS | Encounter Summary ---
Author Organization [employer] ([place], [place], [place], [place]) Address [address] [place] [address] Care Team Providers Care Line Manager Name Role Phone Sandra Orozco RUBEN Primary Care Provider [phone] Encounter Details Date Type Department Care Team (Late st Contact Info) Description 03/01/2020 Transcribed Document [facility] [place] [facility] [place] [address] ProviderAide MD [address] [place] [address] Social History Tobacco Use Types Packs/Day [...] Historical MD Derek - 03/01/2020 11:34 AM FUNDING ANALYST DATE OF PROCEDURE: 03/01/2020 SURGEON: Noemi Mayfield [...] 18-gauge Tuohy needle was advanced by the frye-mz-lbeicnsdjl technique under direct fluoroscopic guidance into the [...] visit and the patient has been afebrile. /[id number] Noemi Mayfield MD, JELANI Pain Certified DELILAH/ANTHONY / KR / MODL /[id number] documented in this encounter Plan of Treatment Not on file documented as of this encounter Visit Diagnoses Not on filedocumented in this encounter Care Teams Line Manager Relationship Specialty Start Date End Date Sandra Orozco, SUPERVISOR ADULT EDUCATION [address] [place] [address] PCP - General Nurse Practitioner 01/24/22 documented as of this encounter
--- OUTSIDE RECORDS SUMMARY | 2024-11-24 11:19 | XMS_ITS | Encounter Summary ---
Author Organization [facility]stem Address [address] [place] [address] Care Team Providers Care Supervisor Sandblaster Name Role Phone Sandra Orozco APRN Primary Care Provider [phone] Encounter Details Date Type Department Care Team (Late st Contact Info) Description 11/23/2024 Readmission Management [facility] [address] [place] [address] Eloise Farrar RN Social History Tobacco Use Types Packs/Day Years Used Date Smoking Tobacco: Former Cigarettes Smokeless Tobacco: Never Comments:Smoked since 1973 Alcohol Use Standard Drinks/Week Comments Not Currently 0 (1 standard drink = 0.6 oz pur e alcohol) former [facility] Utilities Answer Date Recorded In the past 12 months has [employer], gas, oil, or water [employer] threatened to shut off services in your [...] care, and heating? Not very hard 11/13/2024 [facility] of Occupat ional Health - Occupational [...] GED or equivalent No 11/13/2024 Preferred Language Mosotho 11/13/2024 PHQ-2 Answer Date Recorded Patient Health Questionnaire-2 Score 0 11/13/2024 Comments No Sex and Gender Information Value Date Recorded Sex Assigned at Female 07/09/2024 8:35 PM EDT Legal Sex Female 8:53 AM EST Gender Identity Not on file Sexual Orientation Straight 07/09/2024 8: 35 PM EDT documented as of this encounter Miscellaneous Notes * Outreach Note - Eloise Farrar, RN - 11/23/2024 9:04 AM EDT CHF Week 1 Survey Flowsheet Row Responses [facility] patient discharged from? [place] Does the patient have one of the following disease processes/diagnoses(primary or secondary)? CHF CHF Week 1 attempt successful? No Unsuccessful attempts Attempt 1 ELOISE Cruz - Registered Nurse documented in this encounter Plan of Treatment Upcoming Encounters Date Type Department Care Team (Late st Contact Info) Description 11/26/2024 11:00 AM EDT Office Visit [facility] [address] [facility] [address] [place] [address] Dina Solano APRN [address] [place] [address] documented as of this encounter Visit Diagnoses Not on filedocumented in this encounter Care Teams Supervisor Sandblaster Relationship Specialty Start Date End Date Sandra Orozco APRN [address] [facility] [address] [place] [address] PCP - General Internal Medicine 05/11/24 documented as of this encounter
--- OUTSIDE RECORDS SUMMARY | 2024-11-24 11:19 | XMS_ITS | Clinical Summary ---
Author Organization [employer] ([place], [place], [place], [place]) Address [address] [place] [address] Care Team Providers Care Laborer Operator Name Role Phone OrozcoKrysten randhawarafael MIRANDA Primary Care Provider [phone] Allergies Active Allergy Reactions Criticality Noted Date [...] today? I have a [facility] place to live 10/13/2023 Think about [...] Do you speak a language other than Lao at [facility]? No 10/13/2023 Do you want help [...] - Risk 60-74 years 1-dose series) 2018 Falls Risk Screening 03/11/2024 Tobacco Cessation Counseling and Screening (12+) 10/13/2024 10/14/2023 COVID-19 VACCINE (3 - 2024- season) 11/09/202402/2021, 06/16/2020 Influenza Vaccine (#1) 2024 02/22/2023 DTAP/TDAP/TD VACCINES (4 - T d or Tdap) 11/09/2027 11/08/2017, 06/22/2009, 08/29/2001 Medical Devices Implanted Type Area Secondary Education Professor Device Identifier Shelf Expiration Date Model / Serial / Lot Sealant Durasl Spine 5ml [id number] - [id number] Implanted:Qty: 1 on 01/31/2022 by Emeka Fernández MD at [facility] IMPLANTS N/A: Back [employer] 07/09/[id number] / / [id number] Cement Spinal Confidence 2839-10-000 - [id number] Implanted:Qty: 2 on 10/14/[address] [facility] IMPLANTS N/A: Back J &J:DEPUY:DEPUY SPINE 06/08/2025 [id number] Insurance MEDICARE PART A B GENERIC COMMERCIAL Advance Directives For more information, please contact: [phone] Documents on File Type Date Recorded Patient Die Cutter Operator Expl anation Advance Directives and Livin g Will 01/31/2022 8:44 AM * Full Code (Latest Code Status on File) Date Activated Date Inactivated Comments 10/12/2023 11:08 PM 10/15/2023 6:49 PM * Full Code Date Activated Date Inactivated Comments 01/31/2022 5:41 PM 02/01/2022 4:50 PM Healthcare Agents on File Name Relationship Healthcare Agent [facility] Luis Anthony Son First Alternate Healthcare Decision-Maker Care Teams Laborer Operator Relationship Specialty Start Date End Date Sandra Orozco APRN [address] [address] PCP - General Nurse Practitioner 01/24/22
== END 2024-11-23 23:59 ==
LOC: LAB.DROPOF 11-24 11:01
PROVIDERS: PCP Nurse Practitioner Family; Visit Provider Nurse Practitioner Family
DX: D50.9 Iron deficiency anemia, unspecified (principal)
CPT/HCPCS: 82728; 83540; 83550; 85025

== ENCOUNTER 2024-12-01 10:00 | Outpatient (CLI) | payer MEDICARE, OTHER, SELFPAY ==
--- OUTSIDE RECORDS SUMMARY | 2024-11-12 12:30 | XMS_ITS | Encounter Summary ---
[facility] Address [address] [place] [address] Care Team Providers Care Roving Can Tender Name Role Phone Sandra Orozco APRN Primary Care Provider [phone] Reason for Visit * Reason Comments Hyperlipidemia Chronic Venous Insufficiency Atrial Fibrillation Encounter Details Date Type Department Care Team (Late st Contact Info) Description 11/12/2024 12:30 PM EDT Office Visit [facility] CARDIOLOGY [address] [facility] [address], [place] [address] Dina Solano APRN [address] [facility] [address] [place] [address] Shortness of breath (Primary Dx); Generalized edema; [...] = 0.6 oz pur e alcohol) former [facility] Utilities Answer Date Recorded In the past 12 months has [employer] electric, gas, oil, or water company threatened [...] care, and heating? Not very hard 11/13/2024 [facility] of Occupat ional Health - Occupational Stress [...] GED or equivalent No 11/13/2024 Preferred Language Tristanian 11/13/2024 PHQ-2 Answer Date Recorded Patient Health [...] of breath and lower extremity edema. Her sed high school teacher was concerned about heart failure and advised [...] Orozco APRN Date: 11/12/2024 Department: Minh REYES [facility] CARDIOLOGY [address] [place] [address] [address] [facility] [id number] Chief Complaint: Chief Complaint Patient presents with Hyperlipidemia Chronic Venous Insufficiency Atrial Fibrillation Problem list: Paroxysmal atrial fibrillation/History of ischemic CVA/TIAs status post loop explant [id number] (Female, Age, CVA, PAD) PAF noted [...] has been diagnosed with COPD by her sed high school teacher who she was at a follow-up with [...] of breath and lower extremity edema. Her sed high school teacher was concerned about heart failure and advised [...] 11/26/2024) for With Me. Patient or patient aircraft sales representative verbalized consent for the use of Ambient Listening during the visit with Dina Solano APRN for chart documentation. 11/12/2024 12:47 EDT Dina Solano APRN [facility] Cardiology documented in this encounter Plan of Treatment Upcoming Encounters Date Type Department Care Team (Late st Contact Info) Description 02/16/2025 11:00 AM EST Office Visit [facility] CARDIOLOGY [address] [facility] [address] [place] [address] Dina Solano APRN [address] [facility] [address] [place] [address] documented as of this encounter Visit Diagnoses Diagnosis Shortness of breath- Primary Generalized edema Edema Chronic respiratory failure with hypoxia Paroxysmal atrial fibrillation Atrial fibrillation History of CVA (cerebrovascular accident) Transient ischemic attack (TIA), and cerebral infarction without residual deficits Moderate aortic valve regurgitation Peripheral arterial disease Unspecified peripheral vascular disease documented in this encounter Care Teams Roving Can Tender Relationship Specialty Start Date End Date Sandra Orozco APRN [address] [place] [id number] PCP - General Internal Medicine 05/11/24 documented as of this encounter
--- OUTSIDE RECORDS SUMMARY | 2024-11-12 21:36 | XMS_ITS | Encounter Summary ---
[facility] Address [address] [place] [address] Care Team Providers Care Innersole Maker Name Role Phone Sandra Orozco APRN Primary Care Provider Reason for Visit * Reason Comments Shortness of Breath * Auth/Cert Specialty Diagnoses / Procedures Referred By Contac t Referred To Contact Diagnoses Respiratory failure with hypoxia Referral ID Status Reason Start Date Expiration Date Visits Re quested Visits Authorized [id number] 1 1 Encounter Details Date Type Department Care Team (Late st Contact Info) Description 11/12/2024 9:36 PM EDT - 11/14/2024 4:38 PM EDT Hospital Encounter [address] [place] [phone] Vasu Mckeon MD [address] [place] [address] Domitila Villalobos MD [address] [facility] 4Th [place] [address] Mel Palma DO [address] [place] [address] Vasu Luke MD [address] [address] Referred by health client care coordinator (Primary Dx); Dyspnea on exertion; Chronic respiratory [...] = 0.6 oz pur e alcohol) former [facility] Utilities Answer Date Recorded In the past 12 months has Global Weather electric, gas, oil, or water [employer] threatened to shut off services in your [...] care, and heating? Not very hard 11/13/2024 [facility] of Occupat ional Health - Occupational Stress [...] GED or equivalent No 11/13/2024 Preferred Language Sri Lankan 11/13/2024 PHQ-2 Answer Date Recorded Patient Health [...] 11/12/2024 4:43 PM Minna Vazquez RN * [place] Suicide Severity Rating Scale (Screener/Recent Self-Report) Question [...] from the original note were not included. [facility] DISCHARGE SUMMARY Patient Name: Casi [...] outpatient labs/diagnostics: Pcp [address] Kirk ([facility]) ~1 week Regular pulmonary physician 1st available [...] motion Neuro: Face symmetric, speech clear, equal fruit packer face and fill, moves all extremities Cardiac: rrr Resp: slightly [...] Date/Time Respiratory Panel PCR w/COVID-19(SARS-CoV-2) SIDRA/CHECO/SAUD/PAD/COR/ERIC In-House, CORRECTIONAL MEDICINE PHYSICIAN Swab in UTM/VTM, 2 HR TAT - Swab, Nasopharynx [[id number]] (Normal) Collected: 11/13/24 0326 Lab Status: Final [...] SCREENING ORDER (NO ISOLATION) - Swab, Nasopharynx [[id number]] (Normal) Collected: 11/12/24 192 Lab Status: Final result Specimen: Swab from Nasopharynx Updated: 11/12/242023 Narrative: The following orders were created for panel order COVID PRE-OP / PRE-PROCEDURE SCREENING ORDER (NO ISOLATION) - Swab, Nasopharynx. Procedure Abnormality Status --------- ------ COVID-19, FLU A/B, RSV P...[[id number]] Normal Final result Please view results for these tests on the individual orders. COVID-19, FLU A/B, RSV PCR 1 HR TAT - Swab, Nasopharynx [[id number]] (Normal) Collected: 11/12/241920 Lab Status: Final result Specimen: Swab from Nasopharynx Updated: 11/12/242023 COVID19 Not Detected Influenza A PCR Not Detected Influenza B PCR Not Detected RSV, PCR Not Detected Urine Culture - Urine, Urine, Clean Catch [[id number]] (Normal) Collected: 11/12/241919 Lab Status: Final result [...] MD 11/12/2024 8:31 PM EDT Workstation ID: [id number] XR Chest 1 View Result Date: 11/12/2024 XR CHEST 1 VW Date of Exam: 11/12/2024 6:28 PM EDT Indication: SOA triage protocol. Comparison: 07/16/2024 Findings: Heart size at the upper limits of normal. Pulmonary vessels normal. Lungs are clear. No pleural effusion. No pneumothorax. Impression: 1. No acute cardiopulmonary disease. Electronically Signed: Arben Neley MD 11/12/2024 7:02 PM EDT Workstation ID: [id number] Results for orders placed during the hospital [...] Comments) Swelling all over Nortriptyline Swelling Poison [place] Extract Hives, Itching, Swelling and Rash Poison [...] week Discharge Follow-up with Specialty: Dr. Kirk ([facility] [place], operated by [facility]) 1 week As directed Specialty: Dr. Kirk ([facility] [place], [facility]) 1 week Discharge Follow-up with Specialty: regular independent video producer (2 weeks or 1st available) As directed Specialty: regular independent video producer (2 weeks or 1st available) Vasu Luke MD 11/14/24 Time Spent on Discharge: I spent 35 minutes on this discharge activity which included: vhad-so-usosvyibhifka with the patient, reviewing the data in the system, coordination of the care with the nursing staff as well as consultants, documentation, and entering orders. * Libertad Urbano, PT - 11/14/2024 7:40 AM EDT Patient Name: Casi Cruz : 1960 Today's Date: 11/14/2024 Admit Date: 11/12/2024 Visit Dx: ICD-10-CM ICD-9-CM 1. Referred by health client care coordinator Z02.89 V68.89 2. Dyspnea on exertion R06.09 [...] MODERATE BY ECHO Aortic regurgitation MODERATE BY [facility] ECHO Arthritis Asthma Chronic respiratory failure [...] RECORDER PLACEMENT: 11/06/2018- AE. LOOP RECORDER SERIAL #[id number] SINUS SURGERY General Information Row Name 11/14/24 [...] PT Physical Therapist Mobility Row Name 11/14/24 0788 Bed Mobility Bed Mobility supine-sit -LS Supine-Sit [place] (Bed Mobility) independent -LS Comment, (Bed Mobility) Pt transitioned supine to sit indep on flat bed surface without a rail. PerPT's clinical judgement, pt would be indep sit to supine as well. -LS Row Name 11/14/24 0740 Sit-Stand Transfer Sit-Stand [place] (Transfers) independent -LS Comment, (Sit-Stand Transfer) indep without AD -LS Row Name 11/14/24 0740 Gait/Stairs (Locomotion) [place] Level (Gait) independent -LS Patient was able [...] Therapist Physical Therapy Education Title: PT OT ANIMAL RIDES MANAGER Therapies (In Progress) Topic: Physical Therapy (Resolved) [...] Description Service Date Service Provider Modifiers Qty [id number] HC PT EVAL LOW COMPLEXITY 4 11/14/2024 [...] EDT Acute Care - Occupational Therapy Discharge [facility] Patient Name: Casi Cruz : 1960 Today's Date: 11/13/2024 Admit Date: 11/12/2024 Visit Dx: ICD-10-CM ICD-9-CM 1. Referred by health client care coordinator Z02.89 V68.89 2. Dyspnea on exertion R06.09 [...] MODERATE BY ECHO Aortic regurgitation MODERATE BY [facility] ECHO Arthritis Asthma Chronic venous insufficiency [...] RECORDER PLACEMENT: 11/06/2018- AE. LOOP RECORDER SERIAL #[id number] SINUS SURGERY General Information Row Name 11/13/24 [...] Name 11/13/24 142 Bed Mobility Bed Mobility zihylg-ocf-rwnlte -AN Glzxpx-Wuc-Qzzsob [place] (Bed Mobility) independent -AN [facility] 11/13/24 142 Transfers Transfers sit-stand transfer;stand-sit transfer -AN [facility] 11/13/24 142 Sit-Stand Transfer Sit-Stand [place] (Transfers) supervision -AN [facility] 11/13/24 142 Stand-Sit Transfer Stand-Sit [place] (Transfers) supervision -AN [facility] 11/13/24 142 Functional Mobility Functional Mobility- Ind. Level supervision required -AN [facility] 11/13/24 142 Activities of Daily Living BADL Assessment/Intervention lower body dressing;upper body dressing -AN [facility] 11/13/24 142 Lower Body Dressing Assessment/Training [place] Level (Lower Body Dressing) don;socks;independent -AN Position (Lower Body Dressing) edge of bed sitting -AN [facility] 11/13/241421 Upper Body Dressing Assessment/Training [place] Level (Upper Body Dressing) don;pajama/robe;independent -AN Position (Upper Body Dressing) edge of bed sitting -AN User Tierney (r) = Recorded By, (t) = Taken By, (c) = Cosigned By Initials Name Provider Type Che Poole OT Occupational Therapist Obj/Interventions [facility] Name 11/13/24 142 Sensory Assessment (Somatosensory) Sensory Assessment (Somatosensory) right UE -AN Sensory Subjective Reports numbness -AN Sensory Assessment hx of nerve damage -AN [facility] 11/13/24 142 Vision Assessment/Intervention Visual Impairment/Limitations WFL -AN [facility] 11/13/24 142 Range of Motion Comprehensive General Range of Motion no range of motion deficits identified -AN [facility] 11/13/24 142 Strength Comprehensive (MMT) General Manual Muscle Testing (MMT) Assessment no strength deficits identified -AN [facility] 11/13/24 142 Balance Balance Assessment sitting static [...] Pain Rating 0/10 - no pain -AN [facility] Name 11/13/241425 Plan of Care Review Plan [...] (OT) Anticipated Discharge Disposition (OT) home -AN [facility] Name 11/13/241425 Vital Signs Pre SpO2 (%) 95 -AN O2 Delivery Pre Treatment room air -AN O2 Delivery Intra Treatment room air -AN Post SpO2 (%) 95 -AN O2 Delivery Post Treatment room air -AN Pre Patient Position Supine -AN Intra Patient Position Standing -AN Post Patient Position Supine -AN [facility] 11/13/241425 Positioning and Restraints Pre-Treatment Position in [...] Therapist Occupational Therapy Education Title: PT OT ANIMAL RIDES MANAGER Therapies (In Progress) Topic: Occupational Therapy (In [...] Description Service Date Service Provider Modifiers Qty [id number] HC OT EVAL LOW COMPLEXITY 3 11/13/2024 Che Velazquez OT GO 1 OT Discharge Summary Anticipated Discharge Disposition (OT): home Reason for Discharge: Independent Discharge Destination: Home Che Velazquez OT 11/13/2024 documented in this encounter Discharge Instructions * Attachments The following attachments cannot be sent through Care Everywhere. * Heart Failure and Exercise: What to Know (Sri Lankan) * Prednisone Tablets (Sri Lankan) documented in this encounter Medications at Time [...] nursing note reviewed. Exam conducted with a facilities project manager present. HENT: Mouth/Throat: Mouth: Mucous membranes are [...] Plan 1-acute on chronic hypoxic respiratory failure-resolved. -23-rxbu-rkfi history of smoking-stopped last year -Likely COPD [...] from the original note were not included. [facility] ADMISSION FOLLOW-UP NOTE Patient admitted after midnight, H&P by my partner performed earlier on today's date reviewed. Interim findings, labs, and charting also reviewed. The [facility] Problem List has been managed and [...] assessment and plan from admission reviewed Casi Curz is a 64 y.o. female w/ a [...] from the original note were not included. [facility] HISTORY AND PHYSICAL Patient Name: [...] urinary symptoms. Pt follows w/ Pulmonology in [place]. Pt was seen for evaluation this week [...] MODERATE BY ECHO Aortic regurgitation MODERATE BY [facility] ECHO Arthritis Asthma Chronic venous insufficiency [...] RECORDER PLACEMENT: 11/06/2018- AE. LOOP RECORDER SERIAL #[id number] SINUS SURGERY Family History: family history includes [...] Comments) Swelling all over Nortriptyline Swelling Poison [place] Extract Hives, Itching, Swelling and Rash Poison [...] SCREENING ORDER (NO ISOLATION) - Swab, Nasopharynx [[id number]] (Normal) Collected: 11/12/241920 Lab Status: Final result Specimen: Swab from Nasopharynx Updated: 11/12/242023 Narrative: The following orders were created for panel order COVID PRE-OP / PRE-PROCEDURE SCREENING ORDER (NO ISOLATION) - Swab, Nasopharynx. Procedure Abnormality Status --------- ------ COVID-19, FLU A/B, RSV P...[[id number]] Normal Final result Please view results for these tests on the individual orders. COVID-19, FLU A/B, RSV PCR 1 HR TAT - Swab, Nasopharynx [[id number]] (Normal) Collected: 11/12/241920 Lab Status: Final result [...] MD 11/12/2024 8:31 PM EDT Workstation ID: [id number] XR Chest 1 View Result Date: 11/12/2024 XR CHEST 1 VW Date of Exam: 11/12/2024 6:28 PM EDT Indication: SOA triage protocol. Comparison: 07/16/2024 Findings: Heart size at the upper limits of normal. Pulmonary vessels normal. Lungs are clear. No pleural effusion. No pneumothorax. Impression: Impression: 1. No acute cardiopulmonary disease. Electronically Signed: Arben Neely MD 11/12/2024 7:02 PM EDT Workstation ID: [id number] Assessment & Plan Assessment & Plan Respiratory [...] scheduled nebs -pt follows w/ Pulmonary in [place]- seen this week and referred to Cardiology [...] Patient apparently was seen by pulmonology in [place] and was told that her lungs were [...] MODERATE BY ECHO Aortic regurgitation MODERATE BY [facility] ECHO Arthritis Asthma Chronic respiratory failure [...] RECORDER PLACEMENT: 11/06/2018- AE. LOOP RECORDER SERIAL #[id number] SINUS SURGERY Family History Problem Relation Age [...] Patient apparently was seen by pulmonology in [place] and was told that her lungs were [...] further evaluation per primary team or appropriate independent crop consultant. 5. For SMOOTH on CPAP: Continue CPAP. 6. For acute on chronic hypoxemic respiratory failure: Back to baseline oxygen requirement after diuresis. Continue supplemental oxygen. Wean as tolerated. Electronically signed by: Michele Sanchez MD 11/13/24 18:31 EDT *. Please note that portions of this note were completed with [employer] - a voice recognition program. * Christy [...] has history of COPD with greater than 18-sxnt-bakr history of smoking. Quit 1 year ago. She encountered COVID several years ago followed by bilateral pulmonary atelectasis and chronic respiratory failure requiring home O2. She has mild to moderate aortic insufficiency on 2D echocardiogram from 2022 which was performed in [place]. Her last echo was over 2 years [...] MODERATE BY ECHO Aortic regurgitation MODERATE BY [facility] ECHO Arthritis Asthma Chronic venous insufficiency [...] RECORDER PLACEMENT: 11/06/2018- AE. LOOP RECORDER SERIAL #[id number] SINUS SURGERY , Family History Problem Relation Age of Onset Coronary artery disease Mother Heart attack Mother Hyperlipidemia Father Hypertension Father , and Allergies: Celecoxib, Hydrocodone, Cipro [ciprofloxacin hcl], Dexamethasone, Gabapentin, Levofloxacin, Nitrofurantoin, Nortriptyline, Poison oak extract, Repatha [evolocumab], and Wound dressing adhesive Physical Exam Vitals and nursing note reviewed. Exam conducted with a facilities project manager present. HENT: Mouth/Throat: Mouth: Mucous membranes are [...] Plan 1-acute on chronic hypoxic respiratory failure -56-yhlb-gsat history of smoking-stopped last year -Likely COPD [...] Documentation Taken 11/13/2024 0800 by Jill Altamirano RNdeveloper evangelist Interventions: no interventions per patient request Intervention: [...] on Bumex, who was sent by her positive printer operator for worsening leg swelling and dyspnea. This [...] MODERATE BY ECHO Aortic regurgitation MODERATE BY [facility] ECHO Arthritis Asthma Chronic venous insufficiency [...] RECORDER PLACEMENT: 11/06/2018- AE. LOOP RECORDER SERIAL #[id number] SINUS SURGERY FAMILY HISTORY Family History Problem [...] pH, UA 5.5 5.0 - 8.0 Specific [place], UA >1.030 (H) 1.005 - 1.030 Glucose, [...] MD 11/12/2024 8:31 PM EDT Workstation ID: [id number] XR Chest 1 View Result Date: 11/12/2024 XR CHEST 1 VW Date of Exam: 11/12/2024 6:28 PM EDT Indication: SOA triage protocol. Comparison: 07/16/2024 Findings: Heart size at the upper limits of normal. Pulmonary vessels normal. Lungs are clear. No pleural effusion. No pneumothorax. Impression: 1. No acute cardiopulmonary disease. Electronically Signed: Arben Neely MD 11/12/2024 7:02 PM EDT Workstation ID: [id number] I ordered and independently reviewed the above [...] [address] Angiogram Chest Pulmonary Embolism [place] Draw Comprehensive Metabolic Panel BNP High Sensitivity [...] shows history of COPD and CKD [CC] 1713 This is 64-year-old with COPD, chronic respiratory failure, aortic valve regurgitation on Bumex, who was sent by her positive printer operator for worsening leg swelling and dyspnea. This [...] 80s. I have contacted Dr. Kirk her positive printer operator who agrees with admission does not want any special orders at this time but will evaluate in the morning. Hospitalist team consulted for admission. [CC] ED Course User Index [CC] Vasu Mckeon MD Shared Decision Making: After my consideration of clinical presentation and any laboratory/radiology studies obtained, I discussed the findings with the patient/patient scheduling representative who is in agreement with the treatment plan and the final disposition. Risks and benefits of discharge and/or observation/admission were discussed. OF 01:41 EDT VITALS: BP - 95/49 HR - 87 TEMP - 97.8 ??F (36.6 ??C) (Oral) O2 SATS - 95% DIAGNOSIS Final diagnoses: Referred by health client care coordinator Dyspnea on exertion Chronic respiratory failure with [...] 11/13/2024 2:31 PM EDT Discharge Planning Assessment [facility] Patient Name: Csai Cruz Today's Date: 11/13/2024 Admit Date: 11/12/2024 [...] Name 11/13/24 1426 Plan Plan Home at [place] Patient/Family in Agreement with Plan yes Plan Comments Spoke with patient at the bedside. Patient lives alone in a home in [facility]. Wears 2L of oxygen and CPAP provided by [facility]. Independent and ambulates with a straight cane as needed. Not current with and outpatient services. PCP is Sandra Orozco APRN. Pharmacy is [facility]. Insurance is Medicare A & B. Plan is home at [place] and has transportation. Denies concerns and needs [...] Description 02/16/2025 11:00 AM EST Office Visit [facility] [address], [place] [address] Dina Solano APRN [address] [place] [address] documented as of this encounter Procedures Procedure [...] EDT RESPIRATORY PANEL PCR W/ COVID-19 (SARS-COV-2), CORRECTIONAL MEDICINE PHYSICIAN SWAB IN UTM/VTP, 2 HR TAT Routine 11/13/2024 3:26 AM EDT BLOOD GAS, VENOUS W/CO-OXIMETRY STAT 11/12/2024 11:[address] ANGIOGRAM CHEST PULMONARY EMBOLISM STAT 11/12/2024 7:46 PM EDT COVID-19/FLUA&B/RSV, CORRECTIONAL MEDICINE PHYSICIAN SWAB IN TRANSPORT MEDIA 1 HR TAT [...] AND COLOR FLOW (11/14/2024 11:32 AM EDT) [facility] EF(MOD-bp) 72.2 % LVIDd 4.3 cm LVIDs [...] - 10.80 10*3/mm3 11/13/2024 12:36 PM EDT [facility] RBC 3.89 3.77 - 5.28 10*6/mm3 11/13/2024 12:36 PM EDT [facility] Hemoglobin 8.1(L) 12.0 - 15.9 g/dL 11/13/2024 12:36 PM EDT [facility] Hematocrit 29.1(L) 34.0 - 46.6 % 11/13/2024 12:36 PM EDT [facility] MCV 74.8(L) 79.0 - 97.0 fL 11/13/2024 12:36 PM EDT [facility] MCH 20.8(L) 26.6 - 33.0 pg 11/13/2024 12:36 PM EDT [facility] MCHC 27.8(L) 31.5 - 35.7 g/dL 11/13/2024 12:36 PM EDT [facility] RDW 19.0(H) 12.3 - 15.4 % 11/13/2024 12:36 PM EDT [facility] RDW-SD 51.3 37.0 - 54.0 fl 11/13/2024 12:36 PM EDT [facility] MPV 9.8 6.0 - 12.0 fL 11/13/2024 12:36 PM EDT [facility] Platelets 227 140 - 450 10*3/mm3 11/13/2024 12:36 PM EDT [facility] Neutrophil % 63.6 42.7 - 76.0 % 11/13/2024 12:36 PM EDT [facility] Lymphocyte % 23.3 19.6 - 45.3 % 11/[facility] Monocyte % 8.9 5.0 - 12.0 % 11/13/2024 12:36 PM [facility] Eosinophil % 2.8 0.3 - 6.2 % 11/13/2024 12:36 PM [facility] Basophil % 0.7 0.0 - 1.5 % 11/13/2024 12:36 PM EDT [facility] Immature Grans % 0.7(H) 0.0 - 0.5 % 11/13/2024 12:36 PM [facility] Neutrophils, Absolute 3.44 1.70 - 7.00 10*3/mm3 11/13/2024 12:36 [facility] Lymphocytes, Absolute 1.26 0.70 - 3.10 10*3/mm3 11/13/2024 12:36 PM [facility] Monocytes, Absolute 0.48 0.10 - 0.90 10*3/mm3 11/13/2024 12:36 PM [facility] Eosinophils, Absolute 0.15 0.00 - 0.40 10*3/mm3 11/13/2024 12:36 PM EDT [facility] Basophils, Absolute 0.04 0.00 - 0.20 10*3/mm3 11/13/2024 12:36 PM [facility] Immature Grans, Absolute 0.04 0.00 - 0.05 10*3/mm3 11/13/2024 12:36 PM [facility] nRBC 0.0 0.0 - 0.2 /100 WBC 11/13/2024 12:36 PM EDT [facility] Blood Venipuncture / Unknown 11/13/2024 12:07 PM EDT 11/13/2024 12:26 PM EDT Aaliyah Abhijeet MIRANDA LAB BLOOD ORDERABLES Final Re sult [facility]
[address] [place] [address], * (ABNORMAL) Reticulocytes (11/13/2024 12:07 PM EDT) Pathologist [facility] Reticulocyte % 2.78(H) 0.70 - 1.90 % 11/13/2024 12:32 PM EDT [facility] Reticulocyte Absolute 0.1081 0.0200 - 0.1300 10*6/mm3 11/13/2024 12:32 PM EDT [facility] Blood Venipuncture / Unknown 11/13/2024 12:07 PM EDT 11/13/2024 12:26 PM EDT Aaliyah Jha APRN LAB BLOOD ORDERABLES Final Re sult Performing Organization Address City/[facility]/ZIP Co de Phone Number [facility]
[address] [place] [address], * Folate RBC (11/13/2024 12:07 PM EDT) Folate, Hemolysate 538.0 Not Estab. ng/mL 11/16/2024 9:09 AM EDT [facility] Hematocrit 40.7 34.0 - 46.6 % 11/16/2024 9:09 AM EDT [facility] RBC Folate 1322 >498 ng/mL 11/16/2024 9:09 AM EDT [facility] Blood Venipuncture / Unknown 11/13/2024 12:07 PM EDT 11/13/2024 12:26 PM EDT Narrative [facility] - 11/16/2024 9:09 AM EDT Performed at: [address] [place] [id number] Director Informatics: Gomez Crooks PhD, Phone: [phone] Aaliyah Jha APRN LAB BLOOD ORDERABLES Edited R esult - Final Performing Organization Address City/[facility]/ZIP Co de Phone Number [facility] [address] [place] [address], [place] [phone] * TSH (11/13/2024 12:07 PM EDT) TSH 2.770 0.270 - 4.200 uIU/mL 11/13/2024 12:56 PM EDT [facility] Blood Venipuncture / Unknown 11/13/2024 12:07 PM EDT 11/13/2024 12:26 PM EDT Aaliyah Jha APRN LAB BLOOD ORDERABLES Final Re sult Performing Organization Address City/[facility]/ZIP Co de Phone Number [facility]
[address] [place] [address], [place] [phone] * (ABNORMAL) Hemoglobin A1c (11/13/2024 12:07 PM EDT) Hemoglobin A1C 5.84(H) 4.80 - 5.60 % 11/13/2024 1:23 PM EDT [facility] Blood Venipuncture / Unknown 11/13/2024 12:07 PM EDT 11/13/2024 12:26 PM EDT Narrative [facility] - 11/13/2024 1:23 PM EDT Hemoglobin A1C Ranges: Increased Risk for Diabetes 5.7% to 6.4% Diabetes >= 6.5% Diabetic Goal < 7.0% Aaliyah Abhijeet CORRECTIONAL FACILITY PSYCHIATRIST LAB BLOOD ORDERABLES Final Re sult Performing Organization Address City/[facility]/ZIP Co de Phone Number [facility]
[address] [place] [address], * Magnesium (11/13/2024 12:07 PM EDT) Magnesium 1.9 1.6 - 2.4 mg/dL 11/13/2024 12:56 PM EDT [facility] Blood Venipuncture / Unknown 11/13/2024 12:07 PM EDT 11/13/2024 12:26 PM EDT Aaliyah Jha APRN LAB BLOOD ORDERABLES Final Re sult Performing Organization Address [facility] Co de Phone Number [facility]
[address] [place] [address], * (ABNORMAL) Basic Metabolic Panel (11/13/2024 12:07 PM EDT) Glucose 100(H) 65 - 99 mg/dL 11/13/2024 12:56 PM EDT [facility] BUN 19.7 8.0 - 23.0 mg/dL 11/13/2024 12:56 PM EDT [facility] Creatinine 0.93 0.57 - 1.00 mg/dL 11/13/2024 12:56 PM EDT [facility] Sodium 143 136 - 145 mmol/L 11/13/2024 12:56 PM EDT [facility] Potassium 3.8 3.5 - 5.2 mmol/L 11/13/2024 12:56 PM EDT [facility] Chloride 102 98 - 107 mmol/L 11/13/2024 12:56 PM EDT [facility] CO2 31.1(H) 22.0 - 29.0 mmol/L 11/13/2024 12:56 PM EDT [facility] Calcium 8.6 8.6 - 10.5 mg/dL 11/13/2024 12:56 PM EDT [facility] BUN/Creatinine Ratio 21.2 7.0 - 25.0 11/13/2024 12:56 PM EDT [facility] Anion Gap 9.9 5.0 - 15.0 mmol/L 11/13/2024 12:56 PM EDT [facility] eGFR 67.9 >60.0 mL/min/1.7 3 11/13/2024 12:56 PM EDT [facility] Blood Venipuncture / Unknown 11/13/2024 12:07 PM EDT 11/13/2024 12:26 PM EDT Narrative [facility] - 11/13/2024 12:56 PM EDT GFR [...] race as a factor us Aaliyah Jha [facility] LAB BLOOD ORDERABLES Final Re sult [facility]
[address] [place] [address], * Duplex Venous Lower Extremity - Bilateral [...] 12 Lead Dyspnea (11/13/2024 5:53 AM EDT) [facility] QT Interval 410 ms ECG QTC Interval [...] change was found Confirmed by ABDULLAHI HENDRICKSON ([id number]) on 11/13/2024 7:39:07 PM Referred By: Confirmed [...] change was found Confirmed by ABDULLAHI HENDRICKSON ([id number]) on 11/13/2024 7:39:07 PM Referred By: Confirmed By: ABDULLAHI HENDRICKSON aAliyah Jha APRN ECG ORDERABLES Final Result ECG * Respiratory Panel PCR w/COVID-19(SARS-CoV-2) SIDRA/CHECO/SAUD/PAD/COR/ERIC In-House, CORRECTIONAL MEDICINE PHYSICIAN Swab in UTM/VTM, 2 HR TAT - Swab, Nasopharynx (11/13/2024 3:26 AM EDT) ADENOVIRUS, PCR Not Detected Not Detected [facility] 11/13/2024 4:48 AM EDT [facility] Coronavirus 229E Not Detected Not Detected [facility] 11/13/2024 4:48 AM EDT [facility] Coronavirus HKU1 Not Detected Not Detected [facility] 11/13/2024 4:48 AM EDT [facility] Coronavirus NL63 Not Detected Not Detected [facility] 11/13/2024 4:48 AM EDT [facility] Coronavirus OC43 Not Detected Not Detected [facility] 11/13/2024 4:48 AM EDT [facility] COVID19 Not Detected Not Detected - Ref. Range [facility] 11/13/2024 4:48 AM EDT [facility] Human Metapneumovirus Not Detected Not Detected [facility] 11/13/2024 4:48 AM EDT [facility] Human Rhinovirus/Enterov irus Not Detected Not Detected [facility] 11/13/2024 4:48 AM EDT [facility] Influenza A PCR Not Detected Not Detected [facility] 11/13/2024 4:48 AM EDT [facility] Influenza B PCR Not Detected Not Detected [facility] 11/13/2024 4:48 AM EDT [facility] Parainfluenza Virus 1 Not Detected Not Detected [facility] 11/13/2024 4:48 AM EDT [facility] Parainfluenza Virus 2 Not Detected Not Detected [facility] 11/13/2024 4:48 AM EDT [facility] Parainfluenza Virus 3 Not Detected Not Detected [facility] 11/13/2024 4:48 AM EDT [facility] Parainfluenza Virus 4 Not Detected Not Detected [facility] 11/13/2024 4:48 AM EDT [facility] RSV, PCR Not Detected Not Detected [facility] 11/13/2024 4:48 AM EDT [facility] Bordetella pertussis pcr Not Detected Not Detected [facility] 11/13/2024 4:48 AM EDT [facility] Bordetella parapertussis PCR Not Detected Not Detected [facility] 11/13/2024 4:48 AM EDT [facility] Chlamydophila pneumoniae PCR Not Detected Not Detected [facility] 11/13/2024 4:48 AM EDT [facility] Mycoplasma pneumo by PCR Not Detected Not Detected [facility] 11/13/2024 4:48 AM EDT [facility] Swab Nasopharyngeal structure / Unknown Collection / Unknown 11/13/2024 3:26 AM EDT 11/13/2024 4:00 AM EDT [facility] - 11/13/2024 4:48 AM EDT In [...] MICROBIOLOGY - GENERAL ORDERA BLES Final Result [facility]
[address] [place] [address], * (ABNORMAL) Blood Gas, Venous With Co-Ox (11/12/2024 11:16 PM EDT) Site Nurse/Dr Draw 11/12/2024 11:17 PM EDT [facility] THERAPY pH, Venous 7.337 7.310 - 7.410 pH Units 11/12/2024 11:17 PM EDT [facility] THERAPY pCO2, Venous 59.6(H) 41.0 - 51.0 mm Hg 11/12/2024 11:17 PM EDT [facility] THERAPY Comment:83 Value above refer ence range pO2, Venous 30.4 27.0 - 53.0 mm Hg 11/12/2024 11:17 PM EDT [facility] THERAPY HCO3, Venous 31.9(H) 22.0 - 28.0 mmol/L 11/12/2024 11:17 PM EDT [facility] THERAPY Base Excess, Venous 5.0(H) -2.0 - 2.0 mmol/L 11/12/2024 11:17 PM EDT [facility] THERAPY Hemoglobin, Blood Gas 9.3(L) 14 - 18 g/dL 11/12/2024 11:17 PM EDT [facility] THERAPY Oxyhemoglobin Venous 48.3 % 06/2024 11:17 PM EDT [facility] THERAPY Methemoglobin Venous 0.4 % 06/2024 11:17 PM EDT [facility] THERAPY Carboxyhemoglobin Venous 1.7 % 11/12/2024 11:17 PM EDT [facility] THERAPY CO2 Content 33.7(H) 22 - 33 mmol/L 11/12/2024 11:17 PM EDT [facility] THERAPY Temperature 37.0 11/12/2024 11:17 PM EDT [facility] THERAPY Barometric Pressure for Blood Gas 11/12/2024 11:17 PM EDT [facility] THERAPY Comment:N/A Modality Nasal Cannula 11/12/2024 11:17 PM EDT [facility] THERAPY FIO2 28 % 11/12/2024 11:17 PM EDT [facility] THERAPY Rate 0 Breaths/ minute 11/12/2024 11:17 PM EDT [facility] THERAPY PIP 0 cmH2O 11/12/2024 11:17 PM EDT [facility] THERAPY Comment:Meter: [id number] Elevator Operator: [id number] IPAP 0 11/12/2024 11:17 PM EDT [facility] THERAPY EPAP 0 11/12/2024 11:17 PM EDT [facility] THERAPY Venous Blood 11/12/2024 11:1 6 PM EDT 11/12/2024 11:16 PM EDT us Vasu Mckeon MD LAB BLOOD ORDERABLES Fin al Result [facility] THERAPY
[address] [place] [address], * CT Angiogram Chest Pulmonary Embolism (11/12/2024 7:46 PM EDT) Anatomical Region Laterality Modality Chest N/A Computed Tomogra phy 11/12/2024 8:22 PM EDT Impressions 11/12/2024 8:31 PM EDT No evidence of pulmonary embolus. No acute abnormality. Electronically Signed: Jed Machuca MD 11/12/2024 8:31 PM EDT Workstation ID: [id number] Hermann 11/12/2024 8:[address] ANGIOGRAM [...] MD 11/12/2024 8:31 PM EDT Workstation ID: [id number] Vasu Mckeon MD IMG CT ORDERABLES Final Result * COVID-19, FLU A/B, RSV PCR 1 HR TAT - Swab, Nasopharynx (11/12/2024 7:21 PM EDT) Pathologist [facility] COVID19 Not Detected Not Detected - Ref. Range [facility] 11/12/2024 8:24 PM EDT [facility] Influenza A PCR Not Detected Not Detected [facility] 11/12/2024 8:24 PM EDT [facility] Influenza B PCR Not Detected Not Detected [facility] 11/12/2024 8:24 PM EDT [facility] RSV, PCR Not Detected Not Detected [facility] 11/12/2024 8:24 PM EDT [facility] Swab Nasopharyngeal structure / Unknown Collection / Unknown 11/12/2024 7:21 PM EDT 11/12/2024 7:46 PM EDT Vasu Mckeon MD MICROBIOLOGY - GENERAL O RDERABLES Final Result [facility]
[address] [place] [address], * Sodium, Urine, Random - Urine, Clean Catch (11/12/2024 7:20 PM EDT) Pathologist [facility] Sodium, Urine <20 mmol/L 11/13/2024 3:37 AM EDT [facility] Urine Urine specimen obtained by clean catch procedure / Unknown Collection / Unknown 11/12/2024 7:20 PM EDT 11/12/2024 7:46 PM EDT [facility] - 11/13/2024 3:37 AM EDT Reference intervals for random urine have not been established. Clinical usage is dependent upon physician's interpretation in combination with other laboratory tests. us Aaliyah Jha APRN URINE ORDERABLES Final Result [facility]
[address] [place] [address], * Osmolality, Urine - Urine, Clean Catch (11/12/2024 7:20 PM EDT) Osmolality, Urine 837 300 - 1,100 mOsm/kg 11/13/2024 4:00 AM EDT [facility] Urine Urine specimen obtained by clean catch procedure / Unknown Collection / Unknown 11/12/2024 7:20 PM EDT 11/12/2024 7:46 PM EDT us Aaliyah Jha APRN URINE ORDERABLES Final Result [facility]
[address] [place] [address], * Creatinine Urine Random (kidney function) GFR component - Urine, Clean Catch (11/12/2024 7:20 PM EDT) Creatinine, Urine 276.6 mg/dL 11/13/2024 9:46 AM EDT [facility] Urine Urine specimen obtained by clean catch procedure / Unknown Collection / Unknown 11/12/2024 7:20 PM EDT 11/13/2024 3:13 AM EDT [facility] - 11/13/2024 9:46 AM EDT Reference intervals for random urine have not been established. Clinical usage is dependent upon physician's interpretation in combination with other laboratory tests. us Aaliyah Jha APRN URINE ORDERABLES Final Result Performing Organization Address City/[facility]/ZIP Co de Phone Number [facility]
[address] [place] [address], * Urine Culture - Urine, Urine, Clean Catch (11/12/2024 7:20 PM EDT) Urine Culture No growth [id number] 11/14/2024 12:26 PM EDT [facility] Urine Urine specimen obtained by clean catch procedure / Unknown Collection / Unknown 11/12/2024 7:20 PM EDT 11/13/2024 12:57 AM EDT Vasu Mckeon MD MICROBIOLOGY - GENERAL O RDERABLES Final Result Performing Organization Address City/[facility]/ZIP Co de Phone Number [facility]
[address] [place] [address], * (ABNORMAL) Urinalysis, Microscopic Only - Urine, Clean Catch (11/12/2024 7:20 PM EDT) RBC, UA 0-2 None Seen, 0-2 /HPF 11/12/2024 8:00 PM EDT [facility] WBC, UA 11-20(A) None Seen, 0-2 /HPF 11/12/2024 8:00 PM EDT [facility] Bacteria, UA None Seen None Seen /HPF 11/12/2024 8:00 PM EDT [facility] Squamous Epithelial Cells, UA 3-6(A) None Seen, 0-2 /HPF 11/12/2024 8:00 PM EDT [facility] Hyaline Casts, UA 0-2 None Seen /LPF 11/12/2024 8:00 PM EDT [facility] Methodology Automated Microscopy 11/12/2024 8:00 PM EDT [facility] Urine Urine specimen obtained by clean catch procedure / Unknown Collection / Unknown 11/12/2024 7:20 PM EDT 11/12/2024 7:46 PM EDT us Vasu Mckeon MD URINE ORDERABLES Final R esult [facility]
[address] [place] [address], * (ABNORMAL) Urinalysis With Microscopic If Indicated (No Culture) - Urine, Clean Catch (11/12/2024 7:20 PM EDT) Color, UA Yellow Yellow, Straw 11/12/2024 8:00 PM EDT [facility] Appearance, UA Clear Clear 11/12/2024 8:00 PM EDT [facility] pH, UA 5.5 5.0 - 8.0 11/12/2024 8:00 PM EDT [facility] Specific [place], UA >1.030(H) 1.005 - 1.030 11/12/2024 8:00 PM EDT [facility] Glucose, UA Negative Negative 11/12/2024 8:00 PM EDT [facility] Ketones, UA Negative Negative 11/12/2024 8:00 PM EDT [facility] Bilirubin, UA Negative Negative 11/12/2024 8:00 PM EDT [facility] Blood, UA Negative Negative 11/12/2024 8:00 PM EDT [facility] Protein, UA Trace(A) Negative 11/12/2024 8:00 PM EDT [facility] Leuk Esterase, UA Small (1+)(A) Negative 11/12/2024 8:00 PM EDT [facility] Nitrite, UA Negative Negative 11/12/2024 8:00 PM EDT [facility] Urobilinogen, UA 1.0 E.U./dL 0.2 - 1.0 E.U./dL 11/12/2024 8:00 PM EDT [facility] Urine Urine specimen obtained by clean catch procedure / Unknown Collection / Unknown 11/12/2024 7:20 PM EDT 11/12/2024 7:46 PM EDT Vasu Mckeon MD URINE ORDERABLES Final R esult [facility]
[address] [place] [address], * Ferritin (11/12/2024 7:16 PM EDT) Ferritin 13.80 13.00 - 150.00 ng/mL 11/13/2024 3:24 AM EDT [facility] Blood Venipuncture / Unknown 11/12/2024 7:16 PM EDT 11/13/2024 2:57 AM EDT Narrative [facility] - 11/13/2024 3:24 AM EDT Results may be falsely decreased if patient taking Biotin. Aaliyah Jha APRN LAB BLOOD ORDERABLES Final Re sult Performing Organization Address City/[facility]/ZIP Co de Phone Number [facility]
[address] [place] [address], * (ABNORMAL) Iron Profile w/o Ferritin (11/12/2024 7:16 PM EDT) Iron 21(L) 37 - 145 mcg/dL 11/13/2024 3:24 AM EDT [facility] Iron Saturation (TSAT) 4(L) 20 - 50 % 11/13/2024 3:24 AM EDT [facility] Transferrin 321 200 - 360 mg/dL 11/13/2024 3:24 AM EDT [facility] TIBC 478 298 - 536 mcg/dL 11/13/2024 3:24 AM EDT [facility] Blood Venipuncture / Unknown 11/12/2024 7:16 PM EDT 11/13/2024 2:57 AM EDT Aaliyahcolleen Jha APRN LAB BLOOD ORDERABLES Final Re sult Performing Organization Address [facility] Co de Phone Number [facility]
[address] [place] [address], * (ABNORMAL) High Sensitivity Troponin T 1Hr (11/12/2024 7:16 PM EDT) HS Troponin T 16(H) <14 ng/L 11/12/2024 7:53 PM EDT [facility] Troponin T Numeric Delta -1 ng/L 11/12/2024 7:53 PM EDT [facility] Troponin T % Delta -6 Abnormal if >/= 20% 11/12/2024 7:53 PM EDT [facility] Blood Line / Unknown 11/12/2024 7: 16 PM EDT 11/12/2024 7:20 PM EDT Narrative [facility] - 11/12/2024 7:53 PM EDT High [...] ORDERABLES Fin al Result Performing Organization Address [facility]/ZIP Co de Phone Number [facility]
[address] [place] [address], * XR Chest 1 View (11/12/2024 6:30 PM EDT) Anatomical Region Laterality Modality Body N/A Radiographic Tatyana ging 11/12/2024 7:00 PM EDT Impressions 11/12/2024 7:02 PM EDT Impression: 1. No acute cardiopulmonary disease. Electronically Signed: Arben Neely MD 11/12/2024 7:02 PM EDT Workstation ID: [id number] Narrative 11/12/2024 7:02 PM EDT XR CHEST [...] MD 11/12/2024 7:02 PM EDT Workstation ID: [id number] Vasu Mckeon MD IMG DIAGNOSTIC IMAGING O RDERABLES Final Result * (ABNORMAL) Vitamin B12 (11/12/2024 5:17 PM EDT) [facility] Vitamin B-12 1,669(H) 211 - 946 pg/mL 11/13/2024 9:54 AM EDT [facility] Blood Venipuncture / Unknown 11/12/2024 5:17 PM EDT 11/13/2024 2:59 AM EDT Narrative [facility] - 11/13/2024 9:54 AM EDT Results may be falsely increased if patient taking Biotin. Aaliyah Jha APRN LAB BLOOD ORDERABLES Final Re sult [facility]
[address] [place] [address], * Folate (11/12/2024 5:17 PM EDT) [facility] Folate >20.00 4.78 - 24.20 ng/mL 11/13/2024 9:54 AM EDT [facility] Blood Venipuncture / Unknown 11/12/2024 5:17 PM EDT 11/13/2024 2:59 AM EDT Narrative [facility] - 11/13/2024 9:54 AM EDT Results may be falsely increased if patient taking Biotin. Aaliyah Jha APRN LAB BLOOD ORDERABLES Final Re sult [facility]
[address] [place] [address], * Scan Slide (11/12/2024 5:17 PM EDT) Anisocytosis Slight/1+ None Seen 11/12/2024 6:07 PM EDT [facility] Hypochromia Slight/1+ None Seen 11/12/2024 6:07 PM EDT [facility] Microcytes Mod/2+ None Seen 11/12/2024 6:07 PM EDT [facility] WBC Morphology Normal Normal 11/12/2024 6:07 PM EDT [facility] Platelet Morphology Normal Normal 11/12/2024 6:07 PM EDT [facility] Blood Venipuncture / Unknown 11/12/2024 5:17 PM EDT 11/12/2024 5:17 PM EDT Vasu Mckeon MD LAB BLOOD ORDERABLES Fin al Result [facility]
[address] [place] [address], [place] [phone] * Magnesium (11/12/2024 5:17 PM EDT) Magnesium 1.9 1.6 - 2.4 mg/dL 11/12/2024 5:51 PM EDT [facility] Blood Venipuncture / Unknown 11/12/2024 5:17 PM EDT 11/12/2024 5:17 PM EDT Vasu Mckeon MD LAB BLOOD ORDERABLES Fin al Result Performing Organization Address City/[facility]/ZIP Co de Phone Number [facility]
[address] [place] [address], * Phosphorus (11/12/2024 5:17 PM EDT) Phosphorus 4.1 2.5 - 4.5 mg/dL 11/12/2024 5:51 PM EDT [facility] Blood Venipuncture / Unknown 11/12/2024 5:17 PM EDT 11/12/2024 5:17 PM EDT Vasu Mckeon MD LAB BLOOD ORDERABLES Fin al Result Performing Organization Address [facility] Co de Phone Number [facility]
[address] [place] [address], * TSH Rfx On Abnormal To Free T4 (11/12/2024 5:17 PM EDT) TSH 2.480 0.270 - 4.200 uIU/mL 11/12/2024 5:51 PM EDT [facility] Blood Venipuncture / Unknown 11/12/2024 5:17 PM EDT 11/12/2024 5:17 PM EDT Vasu Mckeon MD LAB BLOOD ORDERABLES Fin al Result Performing Organization Address City/[facility]/ZIP Co de Phone Number [facility]
[address] [place] [address], * Lipase (11/12/2024 5:17 PM EDT) Lipase 20 13 - 60 U/L 11/12/2024 5:51 PM EDT [facility] Blood Venipuncture / Unknown 11/12/2024 5:17 PM EDT 11/12/2024 5:17 PM EDT Vasu Mckeon MD LAB BLOOD ORDERABLES Fin al Result Performing Organization Address [facility] Phone Number [facility]
[address] [place] [address], * Lactic Acid, Plasma (11/12/2024 5:17 PM EDT) [facility] Lactate 1.6 0.5 - 2.0 mmol/L 11/12/2024 5:49 PM EDT [facility] Comment:Falsely depressed re sults may occur on samples drawn from patients receiving N-Acetylcysteine (NAC) or Metamizole. Blood Venipuncture / Unknown 11/12/2024 5:17 PM EDT 11/12/2024 5:17 PM EDT Vasu Mckeon MD LAB BLOOD ORDERABLES Fin al Result Performing Organization Address [facility] Phone Number [facility]
[address] [place] [address], * (ABNORMAL) D-dimer, Quantitative (11/12/2024 5:17 PM EDT) [facility] D-Dimer, Quantitative 10.36(H) 0.00 - 0.66 MCGFEU/mL 11/12/2024 6:00 PM EDT [facility] Blood Venipuncture / Unknown 11/12/2024 5:17 PM EDT 11/12/2024 5:17 PM EDT Narrative [facility] - 11/12/2024 6:00 PM EDT According to the assay green plumber's published package insert, a normal (<0.50 MCGFEU/mL) D-dimer result in conjunction with a non-high clinical probability assessment, excludes deep vein thrombosis (DVT) and pulmonary embolism (PE) with high sensitivity. D-dimer values increase with age and this can make VTE exclusion of an older population difficult. To address this, the [employer], based on best available [...] MCGFEU/mL. Vasu Mckeon MD LAB BLOOD ORDERABLES [facility] al Result [facility]
[address] [place] [address] * (ABNORMAL) CBC Auto Differential (11/12/2024 5:17 PM EDT) [facility] WBC 5.82 3.40 - 10.80 10*3/mm3 11/12/2024 6:07 PM EDT [facility] RBC 4.33 3.77 - 5.28 10*6/mm3 11/12/2024 6:07 PM EDT [facility] Hemoglobin 9.0(L) 12.0 - 15.9 g/dL 11/12/2024 6:07 PM EDT [facility] Hematocrit 32.5(L) 34.0 - 46.6 % 11/12/2024 6:07 PM EDT [facility] MCV 75.1(L) 79.0 - 97.0 fL 11/12/2024 6:07 PM EDT [facility] MCH 20.8(L) 26.6 - 33.0 pg 11/12/2024 6:07 PM EDT [facility] MCHC 27.7(L) 31.5 - 35.7 g/dL 11/12/2024 6:07 PM EDT [facility] RDW 19.1(H) 12.3 - 15.4 % 11/12/2024 6:07 PM EDT [facility] RDW-SD 51.8 37.0 - 54.0 fl 11/12/2024 6:07 PM EDT [facility] MPV 9.5 6.0 - 12.0 fL 11/12/2024 6:07 PM EDT [facility] Platelets 240 140 - 450 10*3/mm3 11/12/2024 6:07 PM EDT [facility] Neutrophil % 58.8 42.7 - 76.0 % 11/12/2024 6:07 PM EDT [facility] Lymphocyte % 26.5 19.6 - 45.3 % 11/12/2024 6:07 PM EDT [facility] Monocyte % 7.6 5.0 - 12.0 % 11/12/2024 6:07 PM EDT [facility] Eosinophil % 5.5 0.3 - 6.2 % 11/12/2024 6:07 PM EDT [facility] Basophil % 0.7 0.0 - 1.5 % 11/12/2024 6:07 PM EDT [facility] Immature Grans % 0.9(H) 0.0 - 0.5 % 11/12/2024 6:07 PM EDT [facility] Neutrophils, Absolute 3.43 1.70 - 7.00 10*3/mm3 11/12/2024 6:07 PM EDT [facility] Lymphocytes, Absolute 1.54 0.70 - 3.10 10*3/mm3 11/12/2024 6:07 PM EDT [facility] Monocytes, Absolute 0.44 0.10 - 0.90 10*3/mm3 11/12/2024 6:07 PM EDT [facility] Eosinophils, Absolute 0.32 0.00 - 0.40 10*3/mm3 11/12/2024 6:07 PM EDT [facility] Basophils, Absolute 0.04 0.00 - 0.20 10*3/mm3 11/12/2024 6:07 PM EDT [facility] Immature Grans, Absolute 0.05 0.00 - 0.05 10*3/mm3 11/12/2024 6:07 PM EDT [facility] nRBC 0.0 0.0 - 0.2 /100 WBC 11/12/2024 6:07 PM EDT [facility] Blood Venipuncture / Unknown 11/12/2024 5:17 PM EDT 11/12/2024 5:17 PM EDT Narrative [facility] - 11/12/2024 6:07 PM EDT Appended report. These results have been appended to a previously verified report. Vasu Mckeon MD LAB BLOOD ORDERABLES Fin al Result [facility]
[id number] [place] [id number], * Light Blue Top (11/12/2024 5:17 PM EDT) Extra Tube Hold for add-ons. 11/12/2024 5:31 PM EDT [facility] Comment:Auto resulted Blood Venipuncture / Unknown 11/12/2024 5:17 PM EDT 11/12/2024 5:17 PM EDT Vasu Mckeon MD LAB BLOOD ORDER ONLY Fin al Result [facility]
[address] [place] [address], * [place] Top (11/12/2024 5:17 PM EDT) Extra Tube Hold for add-ons. 11/12/2024 5:[facility] Comment:Auto resulted. Blood Venipuncture / Unknown 11/12/2024 5:17 PM EDT 11/12/2024 5:17 PM EDT Vasu Mckeon MD LAB BLOOD ORDER ONLY Fin al Result Performing Organization Address City/[facility]/ZIP Co de Phone Number [facility]
[address] [place] [address], [place] [phone] * Gold Top - SST (11/12/2024 5:17 PM EDT) Extra Tube Hold for add-ons. 11/12/2024 5:32 PM EDT [facility] Comment:Auto resulted. Blood Venipuncture / Unknown 11/12/2024 5:17 PM EDT 11/12/2024 5:17 PM EDT Vasu Mckeon MD LAB BLOOD ORDER ONLY Fin al Result Performing Organization Address [facility] Co de Phone Number [facility]
[address] [place] [address], [place] [phone] * Lavender Top (11/12/2024 5:17 PM EDT) Extra Tube hold for add-on 11/12/2024 5:31 PM EDT [facility] Comment:Auto resulted Blood Venipuncture / Unknown 11/12/2024 5:17 PM EDT 11/12/2024 5:17 PM EDT Vasu Mckeon MD LAB BLOOD ORDER ONLY Fin al Result Performing Organization Address City/[facility]/ZIP Co de Phone Number [facility]
[address] [place] [address], [place] [phone] * Green Top (Gel) (11/12/2024 5:17 PM EDT) Extra Tube Hold for add-ons. 11/12/2024 5:31 PM EDT [facility] Comment:Auto resulted. Blood Venipuncture / Unknown 11/12/2024 5:17 PM EDT 11/12/2024 5:17 PM EDT Vasu Mckeon MD LAB BLOOD ORDER ONLY Fin al Result Performing Organization Address City/[facility]/ZIP Co de Phone Number [facility]
[address] [place] [address], * (ABNORMAL) High Sensitivity Troponin T (11/12/2024 5:17 PM EDT) [facility] HS Troponin T 17(H) <14 ng/L 11/12/2024 5:51 PM EDT [facility] Blood Venipuncture / Unknown 11/12/2024 5:17 PM EDT 11/12/2024 5:17 PM EDT Narrative [facility] - 11/12/2024 5:51 PM EDT High [...] ORDERABLES Fin al Result Performing Organization Address City/[facility]/ZIP Co de Phone Number [facility]
[address] [place] [address], * BNP (11/12/2024 5:17 PM EDT) [facility] proBNP 247.0 0.0 - 900.0 pg/mL 11/12/2024 5:51 PM EDT [facility] Blood Venipuncture / Unknown 11/12/2024 5:17 PM EDT 11/12/2024 5:17 PM EDT Narrative [facility] - 11/12/2024 5:51 PM EDT This [...] MD LAB BLOOD ORDERABLES Fin al Result [facility]
[address] [place] [address], * (ABNORMAL) Comprehensive Metabolic Panel (11/12/2024 5:17 PM EDT) Glucose 96 65 - 99 mg/dL 11/12/2024 5:51 PM EDT [facility] BUN 24.7(H) 8.0 - 23.0 mg/dL 11/12/2024 5:51 PM EDT [facility] Creatinine 1.06(H) 0.57 - 1.00 mg/dL 11/12/2024 5:51 PM EDT [facility] Sodium 139 136 - 145 mmol/L 11/12/2024 5:51 PM EDT [facility] Potassium 4.4 3.5 - 5.2 mmol/L 11/12/2024 5:51 PM EDT [facility] Chloride 101 98 - 107 mmol/L 11/12/2024 5:51 PM EDT [facility] CO2 27.9 22.0 - 29.0 mmol/L 11/12/2024 5:51 PM EDT [facility] Calcium 9.1 8.6 - 10.5 mg/dL 11/12/2024 5:51 PM EDT [facility] Total Protein 6.4 6.0 - 8.5 g/dL 11/12/2024 5:51 PM EDT [facility] Albumin 4.0 3.5 - 5.2 g/dL 11/12/2024 5:51 PM EDT [facility] ALT (SGPT) 15 1 - 33 U/L 11/12/2024 5:51 PM EDT [facility] AST (SGOT) 27 1 - 32 U/L 11/12/2024 5:51 PM EDT [facility] Alkaline Phosphatase 113 39 - 117 U/L 11/12/2024 5:51 PM EDT [facility] Total Bilirubin 0.2 0.0 - 1.2 mg/dL 11/12/2024 5:51 PM EDT [facility] Globulin 2.4 gm/dL 11/12/2024 5:51 PM EDT [facility] Comment:Calculated Result A/G Ratio 1.7 g/dL 11/12/2024 5:51 PM T [facility] BUN/Creatinine Ratio 23.3 7.0 - 25.0 11/12/2024 5:51 PM T [facility] Anion Gap 10.1 5.0 - 15.0 mmol/L 11/12/2024 5:51 PM T [facility] eGFR 58.1(L) >60.0 mL/min/1.7 3 11/12/2024 5:51 PM T [facility] Blood Venipuncture / Unknown 11/12/2024 5:17 PM EDT 11/12/2024 5:17 PM EDT [facility] - 11/12/2024 5:51 PM [...] MD LAB BLOOD ORDERABLES Fin al Result [facility]
[address] [place] [address], * ECG 12 Lead Dyspnea (11/12/2024 4:45 [...] failure with hypoxia- Primary Referred by health client care coordinator Dyspnea on exertion Other dyspnea and respiratory [...] BPA Driven Protocol Open Order & Select [facility] Electrolyte Replacement Protocol Algorithm to View Details [...] (Canceled Entry - Provider: Luz Maria Neely, FLEXIBLE NANNY) bumetanide (BUMEX) injection 2 mg (COMPLETED) 2 [...] Education 2252 (Given - Provider: Narciso Melton, FLEXIBLE NANNY) ipratropium-albuterol (DUO-NEB) nebulizer solution 3 mL 3 mL, Nebulization, 4 Times Daily - RT, First dose on Sat11/13/24 at 0830, Include Respiratory Treatment Education 0940 (Given - Provider: Laine Hernandez FLEXIBLE NANNY)1334 (Given - Provider: Laine Hernandez FLEXIBLE NANNY)1651 (Given - Provider: Laine Hernandez FLEXIBLE NANNY)2019 (Given - Provider: Eusebio Jade, [employer]) 0729 (Given - Provider: Luz Maria Neely, FLEXIBLE NANNY)0733 (Canceled Entry - Provider: Luz Maria Neely RRT)1335 (Given - Provider: Luz Maria Neely, FLEXIBLE NANNY)1608 (Not Given - Provider: Luz Maria Neely [...] dose 1133 (Given - Provider: Shady Palmer, [facility]) venlafaxine XR (EFFEXOR-XR) 24 hr capsule 150 [...] BPA Driven Protocol [employer] [facility] Electrolyte Replacement Protocol Algorithm to View Details [...] BPA Driven Protocol [employer] [facility] Electrolyte Replacement Protocol Algorithm to View Details [...] diarrhea documented in this encounter Care Teams Innersole Maker Relationship Specialty Start Date End Date Sandra Orozco APRN [address] [place] [address] [place] [address] PCP - General Internal Medicine 05/11/24 documented as of this encounter
--- OUTSIDE RECORDS SUMMARY | 2024-11-26 11:00 | XMS_ITS | Encounter Summary ---
Author Organization [facility] ystem Address [address] [place] [address] Care Team Providers Care Operating Systems Specialist Name Role Phone Sandra Orozco APRN Primary Care Provider [phone] Reason for Visit * Reason Comments Shortness of Breath Encounter Details Date Type Department Care Team (Latest Contact Info) Description 11/26/2024 11:00 AM EDT Office Visit [facility] CARDIOLOGY [address] [facility] [address], [place] [address] Dina Solano APRN [address] [facility] [address] [place] [address] Paroxysmal atrial fibrillation (Primary Dx); History of [...] = 0.6 oz pur e alcohol) former [facility] Utilities Answer Date Recorded In the past 12 months has [employer] electric, gas, oil, or water company threatened [...] care, and heating? Not very hard 11/13/2024 [facility] of Occupat ional Health - Occupational Stress [...] GED or equivalent No 11/13/2024 Preferred Language Bolivian 11/13/2024 PHQ-2 Answer Date Recorded Patient Health [...] 11:00 AM EDTAssociated Problem(s): Paroxysmal atrial fibrillation [id number] Continue Xarelto 15 mg p.o. daily Continue [...] Sandra Orozco APRN Date: 11/26/2024 Department: Minh [facility] CARDIOLOGY [address] [facility] [address] [facility] [phone] Chief Complaint: Chief Complaint Patient presents with Shortness of Breath Problem list: Paroxysmal atrial fibrillation/History of ischemic CVA/TIAs status post loop explant [id number] (Female, Age, CVA, PAD) PAF noted [...] to admission. She continues to see her bereavement coordinator and has a follow-up appointment scheduled. She [...] Plan Assessment & Plan Paroxysmal atrial fibrillation [id number] Continue Xarelto 15 mg p.o. daily Continue [...] 3 months (around 02/25/2025). Patient or patient civil rights representative verbalized consent for the use of Ambient Listening during the visit with Dina Solano APRN for chart documentation. 11/26/2024 10:42 EDT Dina Solano APRN [facility] Cardiology documented in this encounter Plan of Treatment Upcoming Encounters Date Type Department Care Team (Late st Contact Info) Description 02/16/2025 11:00 AM EST Office Visit [facility] CARDIOLOGY [address] [facility] [address] [place] [address] Dina Solano APRN [address] [facility] [address] [place] [address] Scheduled Orders Name Type Priority Associated Diagnoses [...] unspecified type Expected: 02/25/2025 (Approximate), Expires: 11/26/2025 Lipid Panel Lab Routine Hyperlipidemia LDL goal <55 Expected: 02/25/2025 (Approximate), Expires: 11/26/2025 Comprehensive Metabolic Panel Lab Routine Paroxysmal atrial fibrillation Expected: 12/01/2024 (Approximate), Expires: 11/26/2025 documented as of this encounter Visit Diagnoses [...] type documented in this encounter Care Teams Operating Systems Specialist Relationship Specialty Start Date End Date Sandra Orozco APRN Pending sale to [facility] [address] [place] [address] PCP - General Internal Medicine 05/11/24 documented as of this encounter
--- OUTSIDE RECORDS SUMMARY | 2024-12-01 10:12 | XMS_ITS | Encounter Summary ---
[facility] Organization [facility] Address [address] [place] [address] Care Team Providers Care Optical Technician Name Role Phone Sandra Orozco APRN Primary Care Provider [phone] Encounter Details Date Type Department Care Team (Latest Contact Info) Description 11/26/2024 Travel Social History Tobacco Use Types Packs/Day Years Used Date Smoking Tobacco: Former Cigarettes 2 45 Q uit: 05/10/2023 Smokeless Tobacco: Never Comments:Liked to smoke Alcohol Use Standard Drinks/Week Comments Not Currently 0 (1 standard drink = 0.6 oz pur e alcohol) former [facility] Utilities Answer Date Recorded In the past 12 months has [employer], gas, oil, or water company threatened [...] care, and heating? Not very hard 11/13/2024 [facility] [place] of Occupat ional Health - Occupational Stress [...] GED or equivalent No 11/13/2024 Preferred Language Central African 11/13/2024 PHQ-2 Answer Date Recorded Patient Health [...] Description 02/16/2025 11:00 AM EST Office Visit [facility] [address] [facility] [address], [place] [address] Dina Solano APRN [address] [facility] [address], [place] [address] documented as of this encounter Visit Diagnoses Not on filedocumented in this encounter Care Teams Optical Technician Relationship Specialty Start Date End Date Sandra Orozco APRN [address] [place] [address] [address] PCP - General Internal Medicine 05/11/24 documented as of this encounter
--- OUTSIDE RECORDS SUMMARY | 2024-12-01 10:12 | XMS_ITS | Encounter Summary ---
Author Organization [facility] ystem Address [address] [place] [address] Care Team Providers Care White Sugar Supervisor Name Role Phone Sandra Orozco APRN Primary Care Provider Encounter Details Date Type Department Care Team (Late st Contact Info) Description 11/30/2024 Readmission Management [facility] [address] [place] [address] Christiano Gresham, RN Social History Tobacco Use Types Packs/Day Years Used Date Smoking Tobacco: Former Cigarettes 2 45 Q uit: 05/10/2023 Smokeless Tobacco: Never Comments:Liked to smoke Alcohol Use Standard Drinks/Week Comments Not Currently 0 (1 standard drink = 0.6 oz pur e alcohol) former [facility] Utilities Answer Date Recorded In the past 12 months has [employer], gas, oil, or water [employer] threatened to shut off services in your [...] care, and heating? Not very hard 11/13/2024 [facility] - Occupational Stress Questionnaire Answer Date Recorded [...] GED or equivalent No 11/13/2024 Preferred Language Burmese 11/13/2024 PHQ-2 Answer Date Recorded Patient Health Questionnaire-2 Score 0 11/13/2024 Comments No Sex and Gender Information Value Date Recorded Sex Assigned at Female 07/09/2024 8:35 PM EDT Legal Sex Female 8:53 AM EST Gender Identity Not on file Sexual Orientation Straight 07/09/2024 8: 35 PM EDT documented as of this encounter Miscellaneous Notes * Outreach Note - Christiano Gresham RN - 11/30/2024 9:48 AM EDT \ CHF Week 1 Survey Flowsheet Row [facility] the [facility] have one of the following disease processes/diagnoses(primary or secondary)? CHF CHF Week 1 attempt successful? No Unsuccessful attempts Attempt 2 Christiano Romero - Registered Nurse documented in this encounter Plan of Treatment Upcoming Encounters Date Type Department Care Team (Late st Contact Info) Description 02/16/2025 11:00 AM EST Office Visit [facility] [address] [facility] [address] [place] [address] Dina Solano APRN [address] [facility] [address] [place] [address] documented as of this encounter Visit Diagnoses Not on filedocumented in this encounter Care Teams White Sugar Supervisor Relationship Specialty Start Date End Date Sandra Orozco APRN [address] [address] PCP - General Internal Medicine 05/11/24 documented as of this encounter
--- OUTSIDE RECORDS SUMMARY | 2024-12-01 10:13 | XMS_ITS | Encounter Summary ---
Author Organization [facility] ystem Address [address] [place] [address] Care Team Providers Care Agency Director Name Role Phone Sandra Orozco APRN Primary Care Provider Encounter Details Date Type Department Care Team (Late st Contact Info) Description 11/10/2024 Telephone [facility] C[facility]IOLOGY [address] [facility] [address] [place] [address] Christy Kirk MD [address] [facility] [address] [place] [address] Social History Tobacco Use Types Packs/Day Years [...] SOONER APT. SHE CAN BE REACHED AT [phone] documented in this encounter Plan of Treatment Upcoming Encounters Date Type Department Care Team (Late st Contact Info) Description 02/16/2025 11:00 AM EST Office Visit [facility] [address] [facility] [address] [address] Kalin Solano APRN [address] [facility] [address], [place] [address] documented as of this encounter Visit Diagnoses Not on filedocumented in this encounter Care Teams Agency Director Relationship Specialty Start Date End Date Sandra Orozco APRN [facility] [address] [place] [address] PCP - General Internal Medicine 05/11/24 documented as of this encounter
--- OUTSIDE RECORDS SUMMARY | 2024-12-01 10:13 | XMS_ITS | Clinical Summary ---
[facility] Address [address] [place] [address] Care Team Providers Care Wig Sales Consultant Name Role Phone Sandra Orozco APRN Primary Care Provider [phone] Allergies Active Allergy Reactions Criticality Noted Date [...] all over Nortriptyline Swelling Low 04/15/2024 Poison [place] Extract Hives,Itching,Swell ing,Rash Low 04/15/2024 Poison oak/poison [...] Day Before Meals & at Bedtime. Active levocetirizine (XYZAL) 5 MG tablet Take [...] BED CONSULT Use Daily. 11/15/19 25 Active HYDROcodone-aceta minophen (NORCO) 5-325 MG per tablet Take 1 tablet by mouth Every 4 (Four) Hours As Needed. 07/07/19 25 Active fluconazole (DIFLUCAN) 200 MG tablet As Needed. 025 Discontinu ed(Stop Taking at Discharge) HYDROcodone-aceta minophen (NORCO) 10-325 MG per tablet Take 1 tablet by mouth Every 4 (Four) Hours As Needed. 025 Discontinu ed(Patient Reported Not Taking) hydrocortisone 2.5 % cream Discontinu ed(Stop Taking at Discharge) clotrimazole (MYCELEX) 10 MG brad Take 1 tablet by mouth 3 (Three) Times a Day. 08/13/19 25 025 Discontinu ed(Stop Taking at Discharge) rosuvastatin (CRESTOR) 5 MG tabletIndications :Hyperlipidemia, unspecified hyperlipidemia type Take 1 tablet by mouth Daily. 90 tablet 1 08/14/19 25 025 Discontinu ed(Patient Reported Not Taking) predniSONE (DELTASONE) 20 MG tablet Take 2 tablets by mouth Daily for 3 doses. 6 tablet 4:15 PM EDT 11/16/19 25 025 Active Problems Problem Noted Date Diagnosed Date Respiratory failure with hypoxia 11/13/2024 Assessment & Plan (11/26/2024 10:50 AM EDT): Continue follow-up with pulmonary provider Edema 11/13/2024 SMOOTH (obstructive sleep apnea) 11/13/2024 Anemia 11/13/2024 Assessment & Plan (11/26/2024 2:20 PM EDT): Insurance pending iron infusions Orders: CBC & Differential; Future Stage 3a chronic kidney disease 11/13/2024 Elevated troponin 11/13/2024 Pyuria 11/13/2024 COPD (chronic obstructive pulmonary disease) 07/2024 Assessment & Plan (11/26/2024 2:20 PM EDT): Continue follow-up with pulmonary GERD without esophagitis 11/13/2024 Anxiety associated with depression 11/13/2024 Primary hypertension 11/13/2024 Shortness of breath 11/12/2024 Assessment & Plan (11/12/2024 12:51 PM EDT): Patient presents to the office today after following up with pulmonology yesterday with concerns of worsening shortness of breath and lower extremity edema. Her line maintenance supervisor was concerned about heart failure and advised [...] Paroxysmal atrial fibrillation 07/16/2024 Assessment & Plan (11/26/2024 2:20 PM EDT): [id number] Continue Xarelto 15 mg p.o. daily Continue bisoprolol 5 mg p.o. daily Orders: Comprehensive Metabolic Panel; Future Comprehensive Metabolic Panel; Future Assessment & Plan (11/12/2024 12:51 PM EDT): Continue to monitor, continue Xarelto 50 mg p.o. daily Assessment & Plan (08/13/2024 1:06 PM EDT): Continue bisoprolol 5 mg p.o. daily Continue Xarelto 15 mg p.o. daily Orders: CBC (No Diff); Future Comprehensive Metabolic Panel; Future Assessment & Plan (07/16/2024 12:10 PM EDT): [id number] Continue Xarelto 15 mg p.o. daily, need to check and make sure patient does not need the 20 mg dosing. Continue bisoprolol 5 mg p.o. daily Orders: Basic Metabolic Panel; Future History of CVA (cerebrovascular accident) 2024 Assessment & Plan (11/26/2024 2:20 PM EDT): Continue Xarelto 15 mg p.o. daily Orders: Comprehensive Metabolic Panel; Future Assessment & Plan (11/12/2024 12:51 PM EDT): [...] LDL goal <55 05/09/2024 Assessment & Plan (11/26/2024 10:50 AM EDT): History of statin intolerance Consider Repatha Orders: Lipid Panel; Future Lipoprotein A (LPA); Future High Sensitivity CRP; Future Lipid Panel; Future Assessment & Plan (07/16/2024 12:10 PM EDT): Routine FLP Consider statin next visit if recommended Assessment & Plan (05/11/2024 2:05 PM EST): Orders: Hepatic Function Panel; Future High Sensitivity CRP; Future Lipoprotein A (LPA); Future Lipid Panel; Future Chronic venous insufficiency of lower extremity 05/09/2024 Assessment & Plan (11/26/2024 2:20 PM EDT): Compression hose, leg elevation, exercise and weight loss Assessment & Plan (05/11/2024 2:05 PM EST): 30 mm/hg knee high compression stockings. Leg elevation x 30 minutes 3 times daily. Increase your walking schedule and distance covered. Weight loss diet. Resolved Problems Problem Noted Date Diagnosed Date Resolved Date Peripheral arterial disease 07/16/2024 11/26/2024 Assessment & Plan (11/12/2024 12:51 PM EDT): Continue Xarelto 15 mg p.o. daily Patient previously intolerant to statins Consider Repatha Assessment & Plan (07/16/2024 12:10 PM EDT): Continue Xarelto 15 mg p.o. daily Encounters Date Type Department Care Team Description 11/30/2024 Readmission Management [facility] NURSE CALL C[facility] [address] [place] [address] Christiano Gresham RN 11/26/2024 11:00 AM EDT Office Visit [facility] [address] [place] [address] Dina Solano APRN Paroxysmal atrial fibrillation (Primary Dx); History of CVA (cerebrovascular accident); Chronic respiratory failure with hypoxia; Hyperlipidemia LDL goal <55; Prediabetes; Anemia, unspecified type; Chronic venous insufficiency of lower extremity; Chronic obstructive pulmonary disease, unspecified COPD type 11/26/2024 Travel 11/23/2024 Readmission Management [facility] N[facility] CALL [facility] [address] [place] [address] Kaykay Farrar RN 11/16/2024 Readmission Management [facility] N[facility] [address] [place] [address] Omaira Knapp RN 11/12/2024 9:36 PM EDT - 11/14/2024 4:38 PM EDT Hospital Encounter [facility] [address] [place] [phone] Logan Araujo MD Butler, Jennifer, MD Barbato, Hayley R, DO West, Christopher R, MD Referred by health health care administrator (Primary Dx); Dyspnea on exertion; Chronic respiratory failure with hypoxia, on home O2 therapy; SMOOTH (obstructive sleep apnea); Elevated troponin; Moderate aortic valve regurgitation Discharge Disposition: Home or Self Care 11/12/2024 12:30 PM EDT Office Visit [facility]IOLOG[facility] [address] [place] [address] Dina Solano APRN Shortness of breath (Primary Dx); Generalized edema; Chronic respiratory failure with hypoxia; Paroxysmal atrial fibrillation; History of CVA (cerebrovascular accident); Moderate aortic valve regurgitation; Peripheral arterial disease 11/12/2024 Patient rounding ([facility] only) [facility] [address] [place] [address] Dina Solano APRN 11/12/2024 Travel 11/10/2024 Telephone [facility] [address] [place] [address] Christy Kirk MD from Last 3 Months Family History Medical History Relation Name Comments Hyperlipidemia Father Stanislaw Hypertension Father Stanislaw Anemia Mother Kera Prydeinig Arrhythmia Mother Kera Prydeinig Anemia Asthma Mother Kera Prydeinig Coronary artery disease Mother Kera Prydeinig Heart attack Mother Kera Prydeinig 2 different typ es of cancer. Heart stints, Heart disease Mother Kera Prydeinig Heart failure Mother Kera Prydeinig Relation Name Status Comments Father Stanislaw Mother Kera Prydeinig Social History Tobacco Use Types Packs/Day Years Used Date Smoking Tobacco: Former Cigarettes 2 45 Q uit: 05/10/2023 Smokeless Tobacco: Never Comments:Liked to smoke Alcohol Use Standard Drinks/Week Comments Not Currently 0 (1 standard drink = 0.6 oz pur e alcohol) former [facility] Utilities Answer Date Recorded In the past 12 months has th e [employer], gas, oil, or water [employer] threatened to shut off services in your [...] care, and heating? Not very hard 11/13/2024 [facility] - Occupational [...] GED or equivalent No 11/13/2024 Preferred Language Ukrainian 11/13/2024 PHQ-2 Answer Date Recorded Patient Health [...] Pulse 78 11/26/2024 10:27 AM EDT Temperature 36.7 C (98.1 F) 11/14/2024 7:00 AM EDT Respiratory Rate 16 11/14/2024 7:00 AM EDT Oxygen Saturation 95% 11/13/2024 1:35 PM EDT Inhaled Oxygen Concentration - - Weight 83.9 kg (185 lb) 11/26/2024 10:27 AM EDT Height 152.4 cm (5') 11/26/2024 10:27 AM EDT Body Mass Index 36.13 11/26/2024 10:27 AM EDT Plan of Treatment Upcoming Encounters Date Type Department Care Team (Late st Contact Info) Description 02/16/2025 11:00 AM EST Office Visit [facility] CARDIOLOGY [address] [place] [phone] Dina Solano APRN [address] [facility] [address] [place] [address] Health Maintenance Due Date Last Done Comments DXA SCAN 1960 Pneumococcal Vaccine 50+ (1 of 2 - PCV) 1977 COLOGUARD 2003 COLON CANCER SCREENING 5 YEA R SIGMOIDOSCOPY 2003 COLONOSCOPY 2003 [address] CANCER SCREENING 2003 CT COLONOGRAPHY 2003 FECAL OCCULT BLOOD TEST 2003 FIT Testing (1 year) 2003 MAMMOGRAM 04/06/2017 04/06/2015 ANNUAL WELLNESS VISIT 04/15/2024 HEPATITIS C SCREENING 04/15/2024 INFLUENZA VACCINE 10/09/2024 12/27/2023, 02/22/2023 COVID-19 Vaccine ( season) 11/09/202402/2021, 06/16/2020 LIPID PANEL 07/06/2025 07/06/2024 LUNG CANCER SCREENING 11/12/2025 11/12/2024 TDAP/TD VACCINES (4 - Td or Tdap) [...] EDT RESPIRATORY PANEL PCR W/ COVID-19 (SARS-COV-2), SLAT BASKET MAKER HELPER MACHINE SWAB IN UTM/VTP, 2 HR TAT Routine 11/13/2024 3:26 AM EDT BLOOD GAS, VENOUS W/CO-OXIMETRY STAT 11/12/2024 11:[address] ANGIOGRAM CHEST PULMONARY EMBOLISM STAT 11/12/2024 7:46 PM EDT COVID-19/FLUA&B/RSV, SLAT BASKET MAKER HELPER MACHINE SWAB IN TRANSPORT MEDIA 1 HR TAT [...] AND COLOR FLOW (11/14/2024 11:32 AM EDT) Pathologist [facility] EF(MOD-bp) 72.2 % LVIDd 4.3 cm LVIDs [...] - 10.80 10*3/mm3 11/13/2024 12:36 PM EDT [facility] RBC 3.89 3.77 - 5.28 10*6/mm3 11/13/2024 12:36 PM EDT [facility] Hemoglobin 8.1(L) 12.0 - 15.9 g/dL 11/13/2024 12:36 PM EDT [facility] Hematocrit 29.1(L) 34.0 - 46.6 % 11/13/2024 12:36 PM EDT [facility] MCV 74.8(L) 79.0 - 97.0 fL 11/13/2024 12:36 PM EDT [facility] MCH 20.8(L) 26.6 - 33.0 pg 11/13/2024 12:36 PM EDT [facility] MCHC 27.8(L) 31.5 - 35.7 g/dL 11/13/2024 12:36 PM [facility] RDW 19.0(H) 12.3 - 15.4 % 11/13/2024 12:36 PM [facility] RDW-SD 51.3 37.0 - 54.0 fl 11/13/2024 12:36 PM [facility] MPV 9.8 6.0 - 12.0 fL 11/13/2024 12:36 PM [facility] Platelets 227 140 - 450 10*3/mm3 11/13/2024 12:36 PM [facility] Neutrophil % 63.6 42.7 - 76.0 % 11/13/2024 12:36 PM [facility] Lymphocyte % 23.3 19.6 - 45.3 % 11/13/2024 12:36 PM [facility] Monocyte % 8.9 5.0 - 12.0 % 11/13/2024 12:36 PM [facility] Eosinophil % 2.8 0.3 - 6.2 % 11/13/2024 12:36 PM [facility] Basophil % 0.7 0.0 - 1.5 % 11/13/2024 12:36 PM [facility] Immature Grans % 0.7(H) 0.0 - 0.5 % 11/13/2024 12:36 PM [facility] Neutrophils, Absolute 3.44 1.70 - 7.00 10*3/mm3 11/13/2024 12:36 PM [facility] Lymphocytes, Absolute 1.26 0.70 - 3.10 10*3/mm3 11/13/2024 12:36 PM [facility] Monocytes, Absolute 0.48 0.10 - 0.90 10*3/mm3 11/13/2024 12:36 PM [facility] Eosinophils, Absolute 0.15 0.00 - 0.40 10*3/mm3 11/13/2024 12:36 PM [facility] Basophils, Absolute 0.04 0.00 - 0.20 10*3/mm3 11/13/2024 12:36 PM EDT [facility] Immature Grans, Absolute 0.04 0.00 - 0.05 10*3/mm3 11/13/2024 12:36 PM EDT [facility] nRBC 0.0 0.0 - 0.2 /100 WBC 11/13/2024 12:36 PM EDT [facility] Blood Venipuncture / Unknown 11/13/2024 12:07 PM EDT 11/13/2024 12:26 PM EDT Aaliyah Jha APRN LAB BLOOD ORDERABLES Final Re sult Performing Organization Address [facility]/ZIP Co de Phone Number [facility]
[address] [place] [address], * (ABNORMAL) Reticulocytes (11/13/2024 12:07 PM EDT) Reticulocyte % 2.78(H) 0.70 - 1.90 % 11/13/2024 12:32 PM EDT [facility] Reticulocyte Absolute 0.1081 0.0200 - 0.1300 10*6/mm3 11/13/2024 12:32 PM EDT [facility] Blood Venipuncture / Unknown 11/13/2024 12:07 PM EDT 11/13/2024 12:26 PM EDT Aaliyah Jha APRN LAB BLOOD ORDERABLES Final Re sult [facility]
[address] [place] [address], * TSH (11/13/2024 12:07 PM EDT) TSH 2.770 0.270 - 4.200 uIU/mL 11/13/2024 12:56 PM EDT [facility] Blood Venipuncture / Unknown 11/13/2024 12:07 PM EDT 11/13/2024 12:26 PM EDT Aaliyah Jha RUBEN LAB BLOOD ORDERABLES Final Re sult [facility]
[address] [place] [address], [place] [phone] * Magnesium (11/13/2024 12:07 PM EDT) Only the most recent of2 resultswithin the time period is included. Magnesium 1.9 1.6 - 2.4 mg/dL 11/13/2024 12:56 PM EDT [facility] Blood Venipuncture / Unknown 11/13/2024 12:07 PM EDT 11/13/2024 12:26 PM EDT Aaliyah Jha RUBEN LAB BLOOD ORDERABLES Final Re sult Performing Organization Address [facility]/ZIP Co de Phone Number [facility]
[address] [place] [address], [place] [phone] * (ABNORMAL) Hemoglobin A1c (11/13/2024 12:07 PM EDT) Hemoglobin A1C 5.84(H) 4.80 - 5.60 % 11/13/2024 1:23 PM EDT [facility] Blood Venipuncture / Unknown 11/13/2024 12:07 PM EDT 11/13/2024 12:26 PM EDT Narrative [facility] - 11/13/2024 1:23 PM EDT Hemoglobin A1C Ranges: Increased Risk for Diabetes 5.7% to 6.4% Diabetes >= 6.5% Diabetic Goal < 7.0% Aaliyah Jha MANAGER NURSING LAB BLOOD ORDERABLES Final Re sult [facility]
[address] [place] [id number], [place] [phone] * Folate RBC (11/13/2024 12:07 PM EDT) Pathologist [facility] Folate, Hemolysate 538.0 Not Estab. ng/mL 11/16/2024 9:09 AM EDT [facility] Hematocrit 40.7 34.0 - 46.6 % 11/16/2024 9:09 AM EDT [facility] RBC Folate 1322 >498 ng/mL 11/16/2024 9:09 AM EDT [facility] Blood Venipuncture / Unknown 11/13/2024 12:07 PM EDT 11/13/2024 12:26 PM EDT Narrative [facility] - 11/16/2024 9:09 AM EDT Performed at: - [address] [id number] Cutter Operator Helper: Gomez Crooks PhD, Phone: [phone] Aaliyah Jha APRN LAB BLOOD ORDERABLES Edited R esult - Final [facility] [address] [place] [address], [place] [phone] * (ABNORMAL) Basic Metabolic Panel (11/13/2024 12:07 PM EDT) [facility] Glucose 100(H) 65 - 99 mg/dL 11/13/2024 12:56 PM EDT [facility] BUN 19.7 8.0 - 23.0 mg/dL 11/13/2024 12:56 PM EDT [facility] Creatinine 0.93 0.57 - 1.00 mg/dL 11/13/2024 12:56 PM EDT [facility] Sodium 143 136 - 145 mmol/L 11/13/2024 12:56 PM EDT [facility] Potassium 3.8 3.5 - 5.2 mmol/L 11/13/2024 12:56 PM EDT [facility] Chloride 102 98 - 107 mmol/L 11/13/2024 12:56 PM EDT [facility] CO2 31.1(H) 22.0 - 29.0 mmol/L 11/13/2024 12:56 PM EDT [facility] Calcium 8.6 8.6 - 10.5 mg/dL 11/13/2024 12:56 PM EDT [facility] BUN/Creatinine Ratio 21.2 7.0 - 25.0 11/13/2024 12:56 PM EDT [facility] Anion Gap 9.9 5.0 - 15.0 mmol/L 11/13/2024 12:56 PM EDT [facility] eGFR 67.9 >60.0 mL/min/1.7 3 11/13/2024 12:56 PM EDT [facility] Blood Venipuncture / Unknown 11/13/2024 12:07 PM EDT 11/13/2024 12:26 PM EDT Narrative [facility] - 11/13/2024 12:56 PM [...] does not include race as a factor Aaliyah Jha APRN LAB BLOOD ORDERABLES Final Re sult [facility]
[address] [place] [address], * Duplex Venous Lower Extremity - Bilateral [...] of2 resultswithin the time period is included. QT Interval 410 ms ECG QTC Interval [...] change was found Confirmed by ABDULLAHI HENDRICKSON ([id number]) on 11/13/2024 7:39:07 PM Referred By: Confirmed [...] change was found Confirmed by ABDULLAHI HENDRICKSON ([id number]) on 11/13/2024 7:39:07 PM Referred By: Confirmed By: ABDULLAHI HENDRICKSON Aaliyah Jha APRN ECG ORDERABLES Final Result ECG * Respiratory Panel PCR w/COVID-19(SARS-CoV-2) SIDRA/CHCEO/SAUD/PAD/COR/ERIC In-House, SLAT BASKET MAKER HELPER MACHINE Swab in UTM/VTM, 2 HR TAT - Swab, Nasopharynx (11/13/2024 3:26 AM EDT) Pathologist [facility] ADENOVIRUS, PCR Not Detected Not Detected [facility]RE [facility] 11/13/2024 4:48 AM EDT [facility] Coronavirus 229E Not Detected Not Detected [facility] 11/13/2024 4:48 AM EDT [facility] Coronavirus HKU1 Not Detected Not Detected [facility] 11/13/2024 4:48 AM EDT [facility] Coronavirus NL63 Not Detected Not Detected [facility] 11/13/2024 4:48 AM EDT [facility] Coronavirus OC43 Not Detected Not Detected [facility] 11/13/2024 4:48 AM EDT [facility] COVID19 Not Detected Not Detected - Ref. Range [facility]RE [facility] 11/13/2024 4:48 AM EDT [facility] Human Metapneumovirus Not Detected Not Detected [facility]RE [facility] 11/13/2024 4:48 AM EDT [facility] Human Rhinovirus/Enterov irus Not Detected Not Detected [facility] 11/13/2024 4:48 AM EDT [facility] Influenza A PCR Not Detected Not Detected [facility] 11/13/2024 4:48 AM EDT [facility] Influenza B PCR Not Detected Not Detected [facility] 11/13/2024 4:48 AM EDT [facility] Parainfluenza Virus 1 Not Detected Not Detected [facility] 11/13/2024 4:48 AM EDT [facility] Parainfluenza Virus 2 Not Detected Not Detected [facility] 11/13/2024 4:48 AM EDT [facility] Parainfluenza Virus 3 Not Detected Not Detected [facility] 11/13/2024 4:48 AM EDT [facility] Parainfluenza Virus 4 Not Detected Not Detected [facility] 11/13/2024 4:48 AM EDT [facility] RSV, PCR Not Detected Not Detected [facility] 11/13/2024 4:48 AM EDT [facility] Bordetella pertussis pcr Not Detected Not Detected [facility] 11/13/[facility]24 [facility] Bordetella parapertussis PCR Not Detected Not Detected [facility] 11/13/2024 4:48 AM EDT [facility] Chlamydophila pneumoniae PCR Not Detected Not Detected [facility] 11/13/2024 4:48 AM EDT [facility] Mycoplasma pneumo by PCR Not Detected Not Detected [facility] 11/13/2024 4:48 AM EDT [facility] Swab Nasopharyngeal structure / Unknown Collection / Unknown 11/13/2024 3:26 AM EDT 11/13/2024 4:00 AM EDT [facility] - 11/13/2024 4:48 AM EDT In [...] MICROBIOLOGY - GENERAL ORDERA BLES Final Result [facility]
[address] [place] [address], * (ABNORMAL) Blood Gas, Venous With Co-Ox (11/12/2024 11:16 PM EDT) Site Nurse/Dr Mathias 11/12/2024 11:17 PM EDT [facility] THERAPY pH, Venous 7.337 7.310 - 7.410 pH Units 11/12/2024 11:17 PM EDT [facility] THERAP[facility] pCO2, Venous 59.6(H) 41.0 - 51.0 mm Hg 11/12/2024 11:17 PM EDT [facility]ER[facility] Comment:83 Value above refer ence range pO2, Venous 30.4 27.0 - 53.0 mm Hg 11/12/2024 11:17 PM EDT [facility] THER[facility] HCO3, Venous 31.9(H) 22.0 - 28.0 mmol/L 11/12/2024 11:17 PM EDT [facility] THER[facility] Base Excess, Venous 5.0(H) -2.0 - 2.0 mmol/L 11/12/2024 11:17 PM EDT [facility]ER[facility] Hemoglobin, Blood Gas 9.3(L) 14 - 18 g/dL 11/12/2024 11:17 PM EDT [facility] Oxyhemoglobin Venous 48.3 % 06/2024 11:17 PM EDT [facility] Methemoglobin Venous 0.4 % 06/2024 11:17 PM EDT [facility] Carboxyhemoglobin Venous 1.7 % 11/12/2024 11:17 PM EDT [facility] THER[facility] CO2 Content 33.7(H) 22 - 33 mmol/L 11/12/2024 11:17 PM EDT [facility] THER[facility] Temperature 37.0 11/12/2024 11:17 PM EDT [facility] THER[facility] Barometric Pressure for Blood Gas 11/12/2024 11:17 PM EDT [facility]ER[facility] Comment:N/A Modality Nasal Cannula 11/12/2024 11:17 PM EDT [facility] THER[facility] FIO2 28 % 11/12/2024 11:17 PM EDT [facility] THERAP[facility] Rate 0 Breaths/ minute 11/12/2024 11:17 PM EDT [facility] THER[facility] PIP 0 cmH2O 11/12/2024 11:17 PM EDT [facility]ER[facility] Comment:Meter: [id number] Reel Assembler: [id number] IPAP 0 11/12/2024 11:17 PM EDT [facility] THERAP[facility] EPAP 0 11/12/2024 11:17 PM EDT [facility] THERAPY Venous Blood 11/12/2024 11:1 6 PM EDT 11/12/2024 11:16 PM EDT Logan Araujo MD LAB BLOOD ORDERABLES Fin al Result [facility] THERAPY
[address] [place] [address], [place] * CT Angiogram Chest Pulmonary Embolism (11/12/2024 7:46 PM EDT) Anatomical Region Laterality Modality Chest N/A Computed Tomogra phy 11/12/2024 8:22 PM EDT Impressions 11/12/2024 8:31 PM EDT No evidence of pulmonary embolus. No acute abnormality. Electronically Signed: Jed Machuca MD 11/12/2024 8:31 PM EDT Workstation ID: [id number] Narrative 11/12/2024 8:[address] ANGIOGRAM [...] MD 11/12/2024 8:31 PM EDT Workstation ID: [id number] Logan Araujo MD IMG CT ORDERABLES Final Result * COVID-19, FLU A/B, RSV PCR 1 HR TAT - Swab, Nasopharynx (11/12/2024 7:21 PM EDT) COVID19 Not Detected Not Detected - Ref. Range CEPHEID GENEXPERT 11/12/2024 8:24 PM EDT [facility] Influenza A PCR Not Detected Not Detected CEPHEID GENEXPERT 11/12/2024 8:24 PM EDT [facility] Influenza B PCR Not Detected Not Detected CEPHEID GENEXPERT 11/12/2024 8:24 PM EDT [facility] RSV, PCR Not Detected Not Detected CEPHEID GENEXPERT 11/12/2024 8:24 PM EDT [facility] Swab Nasopharyngeal structure / Unknown Collection / Unknown 11/12/2024 7:21 PM EDT 11/12/2024 7:46 PM EDT Logan Araujo MD MICROBIOLOGY - GENERAL O RDERABLES Final Result [facility]
[address] [place] [address], * (ABNORMAL) Urinalysis, Microscopic Only - Urine, Clean Catch (11/12/2024 7:20 PM EDT) RBC, UA 0-2 None Seen, 0-2 /HPF 11/12/2024 8:00 PM EDT [facility] WBC, UA 11-20(A) None Seen, 0-2 /HPF 11/12/2024 8:00 PM EDT [facility] Bacteria, UA None Seen None Seen /HPF 11/12/2024 8:00 PM EDT [facility] Squamous Epithelial Cells, UA 3-6(A) None Seen, 0-2 /HPF 11/12/2024 8:00 PM EDT [facility] Hyaline Casts, UA 0-2 None Seen /LPF 11/12/2024 8:00 PM EDT [facility] Methodology Automated Microscopy 11/12/2024 8:00 PM EDT [facility] Urine Urine specimen obtained by clean catch procedure / Unknown Collection / Unknown 11/12/2024 7:20 PM EDT 11/12/2024 7:46 PM EDT us Logan Araujo MD URINE ORDERABLES Final R esult [facility]
[address] [place] [address], * (ABNORMAL) Urinalysis With Microscopic If Indicated (No Culture) - Urine, Clean Catch (11/12/2024 7:20 PM EDT) Color, UA Yellow Yellow, Straw 11/12/2024 8:00 PM EDT [facility] Appearance, UA Clear Clear 11/12/2024 8:00 PM EDT [facility] pH, UA 5.5 5.0 - 8.0 11/12/2024 8:00 PM EDT [facility] Specific [place], UA >1.030(H) 1.005 - 1.030 11/12/2024 8:00 PM EDT [facility] Glucose, UA Negative Negative 11/12/2024 8:00 PM EDT [facility] Ketones, UA Negative Negative 11/12/2024 8:00 PM EDT [facility] Bilirubin, UA Negative Negative 11/12/2024 8:00 PM EDT [facility] Blood, UA Negative Negative 11/12/2024 8:00 PM EDT [facility] Protein, UA Trace(A) Negative 11/12/2024 8:00 PM EDT [facility] Leuk Esterase, UA Small (1+)(A) Negative 11/12/2024 8:00 PM EDT [facility] Nitrite, UA Negative Negative 11/12/2024 8:00 PM EDT [facility] Urobilinogen, UA 1.0 E.U./dL 0.2 - 1.0 E.U./dL 11/12/2024 8:00 PM EDT [facility] Urine Urine specimen obtained by clean catch procedure / Unknown Collection / Unknown 11/12/2024 7:20 PM EDT 11/12/2024 7:46 PM EDT Logan Araujo MD URINE ORDERABLES Final R esult [facility]
[address] [place] [address], * Sodium, Urine, Random - Urine, Clean Catch (11/12/2024 7:20 PM EDT) Sodium, Urine <20 mmol/L 11/13/2024 3:37 AM EDT [facility] Urine Urine specimen obtained by clean catch procedure / Unknown Collection / Unknown 11/12/2024 7:20 PM EDT 11/12/2024 7:46 PM EDT Narrative [facility] - 11/13/2024 3:37 AM EDT Reference intervals for random urine have not been established. Clinical usage is dependent upon physician's interpretation in combination with other laboratory tests. us Aaliyah Jha APRN URINE ORDERABLES Final Result [facility]
[address] [place] [address], [place] [phone] * Osmolality, Urine - Urine, Clean Catch (11/12/2024 7:20 PM EDT) Osmolality, Urine 837 300 - 1,100 mOsm/kg 11/13/2024 4:00 AM EDT [facility] Urine Urine specimen obtained by clean catch procedure / Unknown Collection / Unknown 11/12/2024 7:20 PM EDT 11/12/2024 7:46 PM EDT us Aaliyah Jha APRN URINE ORDERABLES Final Result Performing Organization Address [facility] Co de Phone Number [facility]
[address] [place] [address], [place] [phone] * Creatinine Urine Random (kidney function) GFR component - Urine, Clean Catch (11/12/2024 7:20 PM EDT) Creatinine, Urine 276.6 mg/dL 11/13/2024 9:46 AM EDT [facility] Urine Urine specimen obtained by clean catch procedure / Unknown Collection / Unknown 11/12/2024 7:20 PM EDT 11/13/2024 3:13 AM EDT Narrative [facility] - 11/13/2024 9:46 AM EDT Reference intervals for random urine have not been established. Clinical usage is dependent upon physician's interpretation in combination with other laboratory tests. us Aaliyah Jha APRN URINE ORDERABLES Final Result Performing Organization Address City/[facility]/ZIP Co de Phone Number [facility]
[address] [place] [address], [place] [phone] * Urine Culture - Urine, Urine, Clean Catch (11/12/2024 7:20 PM EDT) Urine Culture No growth YUMIKO 11/14/2024 12:26 PM EDT [facility] Urine Urine specimen obtained by clean catch procedure / Unknown Collection / Unknown 11/12/2024 7:20 PM EDT 11/13/2024 12:57 AM EDT Logan Araujo MD MICROBIOLOGY - GENERAL O RDERABLES Final Result Performing Organization Address [facility]/ZIP Co de Phone Number [facility]
[address] [place] [address], * (ABNORMAL) High Sensitivity Troponin T 1Hr (11/12/2024 7:16 PM EDT) Pathologist [facility] HS Troponin T 16(H) <14 ng/L 11/12/2024 7:53 PM EDT [facility] Troponin T Numeric Delta -1 ng/L 11/12/2024 7:53 PM EDT [facility] Troponin T % Delta -6 Abnormal if >/= 20% 11/12/2024 7:53 PM EDT [facility] Blood Line / Unknown 11/12/2024 7: 16 PM EDT 11/12/2024 7:20 PM EDT Narrative [facility] - 11/12/2024 7:53 PM [...] MD LAB BLOOD ORDERABLES Fin al Result [facility]
[address] [place] [address], [place] [phone] * (ABNORMAL) Iron Profile w/o Ferritin (11/12/2024 7:16 PM EDT) Iron 21(L) 37 - 145 mcg/dL 11/13/2024 3:24 AM EDT [facility] Iron Saturation (TSAT) 4(L) 20 - 50 % 11/13/2024 3:24 AM EDT [facility] Transferrin 321 200 - 360 mg/dL 11/13/2024 3:24 AM EDT [facility] TIBC 478 298 - 536 mcg/dL 11/13/2024 3:24 AM EDT [facility] Blood Venipuncture / Unknown 11/12/2024 7:16 PM EDT 11/13/2024 2:57 AM EDT Aaliyah Jha APRN LAB BLOOD ORDERABLES Final Re sult Performing Organization Address City/[facility]/ZIP Co de Phone Number [facility]
[address] [place] [address], [place] [phone] * Ferritin (11/12/2024 7:16 PM EDT) Ferritin 13.80 13.00 - 150.00 ng/mL 11/13/2024 3:24 AM EDT [facility] Blood Venipuncture / Unknown 11/12/2024 7:16 PM EDT 11/13/2024 2:57 AM EDT Narrative [facility] - 11/13/2024 3:24 AM EDT Results may be falsely decreased if patient taking Biotin. Aaliyah Jha APRN LAB BLOOD ORDERABLES Final Re sult Performing Organization Address City/[facility]/ZIP Co de Phone Number [facility]
[address] [place] [address], [place] [phone] * XR Chest 1 View (11/12/2024 6:30 PM EDT) Anatomical Region Laterality Modality Body N/A Radiographic Tatyana ging 11/12/2024 7:00 PM EDT Impressions 11/12/2024 7:02 PM EDT Impression: 1. No acute cardiopulmonary disease. Electronically Signed: Arben Neely MD 11/12/2024 7:02 PM EDT Workstation ID: [id number] Narrative 11/12/2024 7:02 PM EDT XR CHEST [...] MD 11/12/2024 7:02 PM EDT Workstation ID: [id number] Logan Araujo MD IMG DIAGNOSTIC IMAGING O RDERABLES Final Result * Castellano Top (11/12/2024 5:17 PM EDT) Extra Tube Hold for add-ons. 11/12/2024 5:32 PM EDT [facility] Comment:Auto resulted. Blood Venipuncture / Unknown 11/12/2024 5:17 PM EDT 11/12/2024 5:17 PM EDT Logan Araujo MD LAB BLOOD ORDER ONLY Fin al Result [facility]
[address] [place] [address], * TSH Rfx On Abnormal To Free T4 (11/12/2024 5:17 PM EDT) TSH 2.480 0.270 - 4.200 uIU/mL 11/12/2024 5:51 PM EDT [facility] Blood Venipuncture / Unknown 11/12/2024 5:17 PM EDT 11/12/2024 5:17 PM EDT us Logan Araujo MD LAB BLOOD ORDERABLES Fin al Result [facility]
[address] [place] [address], * Gold Top - SST (11/12/2024 5:17 PM EDT) Extra Tube Hold for add-ons. 11/12/2024 5:32 PM EDT [facility] Comment:Auto resulted. Blood Venipuncture / Unknown 11/12/2024 5:17 PM EDT 11/12/2024 5:17 PM EDT us Logan Araujo MD LAB BLOOD ORDER ONLY Fin al Result [facility]
[address] [place] [address], * Green Top (Gel) (11/12/2024 5:17 PM EDT) Extra Tube Hold for add-ons. 11/12/2024 5:31 PM EDT [facility] Comment:Auto resulted. Blood Venipuncture / Unknown 11/12/2024 5:17 PM EDT 11/12/2024 5:17 PM EDT Logan Araujo MD LAB BLOOD ORDER ONLY Fin al Result Performing Organization Address City/[facility]/ZIP Co de Phone Number [facility]
[address] [place] [address], * Scan Slide (11/12/2024 5:17 PM EDT) Anisocytosis Slight/1+ None Seen 11/12/2024 6:07 PM EDT [facility] Hypochromia Slight/1+ None Seen 11/12/2024 6:07 PM EDT [facility] Microcytes Mod/2+ None Seen 11/12/2024 6:07 PM EDT [facility] WBC Morphology Normal Normal 11/12/2024 6:07 PM EDT [facility] Platelet Morphology Normal Normal 11/12/2024 6:07 PM EDT [facility] Blood Venipuncture / Unknown 11/12/2024 5:17 PM EDT 11/12/2024 5:17 PM EDT Logan Araujo MD LAB BLOOD ORDERABLES Fin al Result Performing Organization Address [facility] Co de Phone Number [facility]
[address] [place] [address], [place] [phone] * Lavender Top (11/12/2024 5:17 PM EDT) Extra Tube hold for add-on 11/12/2024 5:31 PM EDT [facility] Comment:Auto resulted Blood Venipuncture / Unknown 11/12/2024 5:17 PM EDT 11/12/2024 5:17 PM EDT Logan Araujo MD LAB BLOOD ORDER ONLY Fin al Result Performing Organization Address City/[facility]/ZIP Co de Phone Number [facility]
[address] [place] [address], [place] [phone] * Light Blue Top (11/12/2024 5:17 PM EDT) [facility] Extra Tube Hold for add-ons. 11/12/2024 5:31 PM EDT [facility] Comment:Auto resulted Blood Venipuncture / Unknown 11/12/2024 5:17 PM EDT 11/12/2024 5:17 PM EDT Logan Araujo MD LAB BLOOD ORDER ONLY Fin al Result Performing Organization Address City/[facility]/ZIP Co de Phone Number [facility]
[address] [place] [address], * (ABNORMAL) High Sensitivity Troponin T (11/12/2024 5:17 PM EDT) [facility] HS Troponin T 17(H) <14 ng/L 11/12/2024 5:51 PM EDT [facility] Blood Venipuncture / Unknown 11/12/2024 5:17 PM EDT 11/12/2024 5:17 PM EDT Narrative [facility] - 11/12/2024 5:51 PM [...] injury due to an underlying chronic condition. us Logan Araujo MD LAB BLOOD ORDERABLES Fin al Result Performing Organization Address City/[facility]/ZIP Co de Phone Number [facility]
[address] [place] [address], * (ABNORMAL) D-dimer, Quantitative (11/12/2024 5:17 PM EDT) [facility] D-Dimer, Quantitative 10.36(H) 0.00 - 0.66 MCGFEU/mL 11/12/2024 6:00 PM EDT [facility] Blood Venipuncture / Unknown 11/12/2024 5:17 PM EDT 11/12/2024 5:17 PM EDT Narrative [facility] - 11/12/2024 6:00 PM EDT According to the assay psychiatric technician assistant's published package insert, a normal (<0.50 MCGFEU/mL) D-dimer result in conjunction with a non-high clinical probability assessment, excludes deep vein thrombosis (DVT) and pulmonary embolism (PE) with high sensitivity. D-dimer values increase with age and this can make VTE exclusion of an older population difficult. To address this, the [employer], based on best available [...] an 80 year old 0.80 MCGFEU/mL. us Logan Araujo MD LAB BLOOD ORDERABLES Fin al Result [facility]
[address] [place] [address], * Phosphorus (11/12/2024 5:17 PM EDT) [facility] Phosphorus 4.1 2.5 - 4.5 mg/dL 11/12/2024 5:51 PM EDT [facility] Blood Venipuncture / Unknown 11/12/2024 5:17 PM EDT 11/12/2024 5:17 PM EDT us Logan Araujo MD LAB BLOOD ORDERABLES Fin al Result Performing Organization Address [facility] Co de Phone Number [facility]
[address] [place] [address], * BNP (11/12/2024 5:17 PM EDT) proBNP 247.0 0.0 - 900.0 pg/mL 11/12/2024 5:51 PM EDT [facility] Blood Venipuncture / Unknown 11/12/2024 5:17 PM EDT 11/12/2024 5:17 PM EDT Narrative [facility] - 11/12/2024 5:51 PM [...] ORDERABLES Fin al Result Performing Organization Address [facility] Co de Phone Number [facility]
[address] [place] [address], * Lipase (11/12/2024 5:17 PM EDT) Lipase 20 13 - 60 U/L 11/12/2024 5:51 PM EDT [facility] Blood Venipuncture / Unknown 11/12/2024 5:17 PM EDT 11/12/2024 5:17 PM EDT Logan Araujo MD LAB BLOOD ORDERABLES Fin al Result Performing Organization Address [facility] Co de Phone Number [facility]
[address] [place] [address], * Lactic Acid, Plasma (11/12/2024 5:17 PM EDT) [facility] Lactate 1.6 0.5 - 2.0 mmol/L 11/12/2024 5:49 PM EDT [facility] Comment:Falsely depressed re sults may occur on samples drawn from patients receiving N-Acetylcysteine (NAC) or Metamizole. Blood Venipuncture / Unknown 11/12/2024 5:17 PM EDT 11/12/2024 5:17 PM EDT Logan Araujo MD LAB BLOOD ORDERABLES Fin al Result Performing Organization Address [facility] Co de Phone Number [facility]
[address] [place] [address], * Folate (11/12/2024 5:17 PM EDT) [facility] Folate >20.00 4.78 - 24.20 ng/mL 11/13/2024 9:54 AM EDT [facility] Blood Venipuncture / Unknown 11/12/2024 5:17 PM EDT 11/13/2024 2:59 AM EDT Narrative [facility] - 11/13/2024 9:54 AM EDT Results may be falsely increased if patient taking Biotin. Aaliyah Jha APRN LAB BLOOD ORDERABLES Final Re sult Performing Organization Address [facility] Co de Phone Number [facility]
[address] [place] [address], * (ABNORMAL) Vitamin B12 (11/12/2024 5:17 PM EDT) Pathologist [facility] Vitamin B-12 1,669(H) 211 - 946 pg/mL 11/13/2024 9:54 AM EDT [facility] Blood Venipuncture / Unknown 11/12/2024 5:17 PM EDT 11/13/2024 2:59 AM EDT Narrative [facility] - 11/13/2024 9:54 AM EDT Results may be falsely increased if patient taking Biotin. Aaliyah Jha APRN LAB BLOOD ORDERABLES Final Re sult [facility]
[address] [place] [address], * (ABNORMAL) Comprehensive Metabolic Panel (11/12/2024 5:17 PM EDT) Glucose 96 65 - 99 mg/dL 11/12/2024 5:51 PM EDT [facility] BUN 24.7(H) 8.0 - 23.0 mg/dL 11/12/2024 5:51 PM EDT [facility] Creatinine 1.06(H) 0.57 - 1.00 mg/dL 11/12/2024 5:51 PM EDT [facility] Sodium 139 136 - 145 mmol/L 11/12/2024 5:51 PM EDT [facility] Potassium 4.4 3.5 - 5.2 mmol/L 11/12/2024 5:51 PM EDT [facility] Chloride 101 98 - 107 mmol/L 11/12/2024 5:51 PM EDT [facility] CO2 27.9 22.0 - 29.0 mmol/L 11/12/2024 5:51 PM EDT [facility] Calcium 9.1 8.6 - 10.5 mg/dL 11/12/2024 5:51 PM EDT [facility] Total Protein 6.4 6.0 - 8.5 g/dL 11/12/2024 5:51 PM EDT [facility] Albumin 4.0 3.5 - 5.2 g/dL 11/12/2024 5:51 PM EDT [facility] ALT (SGPT) 15 1 - 33 U/L 11/12/2024 5:51 PM EDT [facility] AST (SGOT) 27 1 - 32 U/L 11/12/2024 5:51 PM EDT [facility] Alkaline Phosphatase 113 39 - 117 U/L 11/12/2024 5:51 PM EDT [facility] Total Bilirubin 0.2 0.0 - 1.2 mg/dL 11/12/2024 5:51 PM EDT [facility] Globulin 2.4 gm/dL 11/12/2024 5:51 PM EDT [facility] Comment:Calculated Result A/G Ratio 1.7 g/dL 11/12/2024 5:51 PM EDT [facility] BUN/Creatinine Ratio 23.3 7.0 - 25.0 11/12/2024 5:51 PM EDT [facility] Anion Gap 10.1 5.0 - 15.0 mmol/L 11/12/2024 5:51 PM EDT [facility] eGFR 58.1(L) >60.0 mL/min/1.7 3 11/12/2024 5:51 PM EDT [facility] Blood Venipuncture / Unknown 11/12/2024 5:17 PM EDT 11/12/2024 5:17 PM EDT [facility] - 11/12/2024 5:51 PM EDT GFR [...] MD LAB BLOOD ORDERABLES Fin al Result [facility]
[address] [place] [address], * Lipid Panel (07/06/2024) Blood us Christy Kirk MD LAB BLOOD ORDERABLES Final Resul t [facility] * Mammo screening digital [...] in patients with adenosis or dense breasts. [employer] For breast cancer detection in asymptomatic women- Age ACR Recommendations 35-40 Baseline Mammogram 40-49 Annual or Biannual Mammogram 50+ Annual Mammogram Annual physical and frequent self breast examination. Patient has been entered into an automatic reminder system. Addendum Reading Radiologist- DIYA GOEL Addendum Releasing Radiologist- DIYA GOEL Addendum Released Date Time- 04/19/15 1550 Addendum Complaint Manager- Jaylen BILATERAL SCREENING MAMMOGRAM WITH TOMOSYNTHESIS PNL- [...] in patients with adenosis or dense breasts. [employer] For breast cancer detection in asymptomatic women- Age ACR Recommendations 35-40 Baseline Mammogram 40-49 Annual or Biannual Mammogram 50+ Annual Mammogram Annual physical and frequent self breast examination. Patient has been entered into an automatic reminder system. Reading Radiologist- DIYA GOEL Releasing Radiologist- DIYA GOEL Released Date Time- 04/06/15 1055 Complaint Manager- Dave Procedure Note Diya Goel Jr., MD [...] in patients with adenosis or dense breasts. [employer] For breast cancer detection in asymptomatic women- Age ACR Recommendations 35-40 Baseline Mammogram 40-49 Annual or Biannual Mammogram 50+ Annual Mammogram Annual physical and frequent self breast examination. Patient has been entered into an automatic reminder system. Addendum Reading Radiologist- DIYA GOEL Addendum Releasing Radiologist- DIYA GOEL Addendum Released Date Time- 04/19/15 3080 Addendum Complaint Manager- Jaylen BILATERAL SCREENING MAMMOGRAM WITH TOMOSYNTHESIS PNL- [...] in patients with adenosis or dense breasts. [employer] For breast cancer detection in asymptomatic women- Age ACR Recommendations 35-40 Baseline Mammogram 40-49 Annual or Biannual Mammogram 50+ Annual Mammogram Annual physical and frequent self breast examination. Patient has been entered into an automatic reminder system. Reading Radiologist- DIYA GEOL Releasing Radiologist- DIYA GOEL Released Date Time- 04/06/15 1055 Complaint ManagerAndre Acosta Gregorio HOWARD MAMMOGRAPHY ORDERABLES Edite d Result [...] or is breathing): Full Support Care Teams Wig Sales Consultant Relationship Specialty Start Date End Date Sandra Orozco APRN [address] [id number] PCP - General Internal Medicine 05/11/24
--- OUTSIDE RECORDS SUMMARY | 2024-12-01 10:13 | XMS_ITS | Encounter Summary ---
Author Organization [employer] ([place], [place], [place], [place]) Address [address] [place] [address] Care Team Providers Care Administrative Services Director Name Role Phone Sandra Orozco RUBEN Primary Care Provider [phone] Encounter Details Date Type Department Care Team (Late st Contact Info) Description 01/25/2020 Transcribed Document [facility] Family Medicine [address] [place] [address] ProviderAide MD [address] [place] [id number] Social History Tobacco Use Types Packs/Day Years Used Date Smoking Tobacco: Never Assessed Comments Unknown Sex and Gender Information Value Date Recorded Sex Assigned at Not on file Legal Sex Female 2:35 PM CDT Gender Identity Not on file Sexual Orientation Not on file documented as of this encounter Miscellaneous Notes * Cerner Conversion Note - Historical ProviderMD - 01/25/2020 6:55 AM SIZE MAKER DATE OF ADMISSION: 01/22/2020 HISTORY OF PRESENT [...] applying ice and heat, physical therapy, exercise, [id number] medication, bed rest going to [facility], [...] to contact her primary physician and her photograph editor to see if we can hold the [...] visit and the patient has been afebrile. /[id number] Karim Chaparro, MD, JELANI Pain Certified KR/AQ / KR / MODL CC: MD Sandra Valero APRN Electronically signed by Interface, [facility] Conversion Electric Range Assembler Cerner at 06/27/2022 8:04 AM CDT documented in this encounter Plan of Treatment Not on file documented as of this encounter Visit Diagnoses Not on filedocumented in this encounter Care Teams Administrative Services Director Relationship Specialty Start Date End Date Sandra Orozco, RUBEN [address] [address] PCP - General Nurse Practitioner 01/24/22 documented as of this encounter
--- OUTSIDE RECORDS SUMMARY | 2024-12-01 10:13 | XMS_ITS | Referral Summary ---
Author Organization [employer] ([place], [place], [place], [place]) Address [address] [place] [address] Care Team Providers Care Business Support Coordinator Name Role Phone OrozcoKrystenrafael MIRANDA Primary Care [...] your living situation today? [facility] a [facility] 10/13/2023 Think [...] a language other than [facility]? No 10/13/2023 Do [...] on file Medical Devices Implanted Type Area Personnel Research Scientist Device Identifier Shelf Expiration Date Model / Serial / Lot Sealant Durasl Spine 5ml [id number] - [id number] Implanted:Qty: 1 on 01/31/2022 by Emeka Fernández MD at [facility] IMPLANTS N/A: Back [employer] 07/09/[id number] / [id number] Cement Spinal Confidence 2839-10-000 - [id number] Implanted:Qty: 2 on 10/14/[address] [facility] IMPLANTS N/A: Back J &J:DEPUY:DEPUY SPINE 06/08/2025 0 / / [id number] Insurance MEDICARE PART A B GENERIC COMMERCIAL Advance Directives For more information, please contact: [phone] Documents on File Type Date Recorded Patient Forestry Patrolman Expl anation Advance Directives and Marixa g [...] Son First Alternate Healthcare Decision-Maker Care Teams Business Support Coordinator Relationship Specialty Start Date End Date Sandra Orozco, RUBEN [address] [place] [address] PCP - General Nurse Practitioner 01/24/22
--- OUTSIDE RECORDS SUMMARY | 2024-12-01 10:13 | XMS_ITS | Encounter Summary ---
[facility] Address [address] [place] [address] Care Team Providers Care Silo Tender Name Role Phone Sandra Orozco APRN Primary Care Provider [phone] Encounter Details Date Type Department Care Team [...] care, and heating? Not very hard 11/13/2024 [facility] [place] of Occupat ional Health - Occupational Stress [...] GED or equivalent No 11/13/2024 Preferred Language Norwegian 11/13/2024 PHQ-2 Answer Date Recorded Patient Health [...] 4:43 PM EDT Minna Gamez, BERNICE * [place] Suicide Severity Rating Scale (Screener/Recent Self-Report) Question [...] Description 02/16/2025 11:00 AM EST Office Visit [facility] C[facility] [address] [facility] [address], [place] [address] Dina Solano APRN [address] [facility] [address] [place] [address] documented as of this encounter Visit Diagnoses Not on filedocumented in this encounter Additional Health Concerns Infection Onset Date Last Indicated Resolved Time COVID Screen (preop/placement) 11/12/2024 11/12/2024 11/12/2024 8:24 PM EDT documented as of this encounter Care Teams Silo Tender Relationship Specialty Start Date End Date Sandra Orozco APRN [address] [place] [address] PCP - General Internal Medicine 05/11/24 documented as of this encounter
--- OUTSIDE RECORDS SUMMARY | 2024-12-01 10:13 | XMS_ITS | Encounter Summary ---
Author Organization [facility] Address [address] [place] [address] Care Team Providers Care Sewer Hand Name Role Phone Sandra Orozco APRN Primary Care Provider [phone] Encounter Details Date Type Department Care Team (Late st Contact Info) Description 11/16/2024 Readmission Management [facility] NURSE CALL CENTER [address] [place] [address] Omaira Knapp RN Social History Tobacco Use Types Packs/Day Years Used Date Smoking Tobacco: Former Cigarettes Smokeless Tobacco: Never Comments:Smoked since 1973 Alcohol Use Standard Drinks/Week Comments Not Currently 0 (1 standard drink = 0.6 oz pur e alcohol) former [facility] Utilities Answer Date Recorded In the past 12 months has [employer], gas, oil, or water [employer] threatened to shut off services in your [...] care, and heating? Not very hard 11/13/2024 [facility] of Occupat ional Health - [...] AM EDT Prep Survey Flowsheet Row Responses [facility] patient discharged from? [place] Is LACE score less than 10 ? [...] Description 02/16/2025 11:00 AM EST Office [facility] [address] [facility] [address] [place] [address] Dina Solano APRN [address] [facility] [address] [place] [address] documented as of this encounter Visit Diagnoses Not on filedocumented in this encounter Care Teams Sewer Hand Relationship Specialty Start Date End Date Sandra Orozco APRN [address] [place] [address] [address] [place] [address] PCP - General Internal Medicine 05/11/24 documented as of this encounter
--- OUTSIDE RECORDS SUMMARY | 2024-12-01 10:13 | XMS_ITS | Encounter Summary ---
Author Organization [facility] Address [address] [place] [address] Care Team Providers Care Data Management Manager Name Role Phone Sandra Orozco APRN Primary Care Provider Encounter Details Date Type Department Care Team (Late st Contact Info) Description 11/12/2024 Patient rounding ([facility]) [facility] CARDIOLOGY [address] [facility] [address], [place] [address] Dina Solano APRN [address] [facility] [address] [place] [address] Social History Tobacco Use Types Packs/Day Years Used Date Smoking Tobacco: Former Cigarettes Smokeless Tobacco: Never Comments:Smoked since 1973 Alcohol Use Standard Drinks/Week Comments Not Currently 0 (1 standard drink = 0.6 oz pur e alcohol) former [facility] Utilities Answer Date Recorded In the past 12 months has [employer], gas, oil, or water company threatened [...] care, and heating? Not very hard 11/13/2024 [facility] [place] of Occupat ional Health - Occupational Stress [...] GED or equivalent No 11/13/2024 Preferred Language Burundian 11/13/2024 PHQ-2 Answer Date Recorded Patient Health [...] is Joaquina Sears, and I am the Warp Hanger for [facility] [place]. I would like to thank you for [...] with your visit with us as a Islam facility? Over the next few days, you will be receiving a Patient Experience Survey. Please consider taking the survey, as it helps Islam in improving their patient care. Thank you for taking the time to answer our questions today. I hope you have a good day. documented in this encounter Plan of Treatment Upcoming Encounters Date Type Department Care Team (Late st Contact Info) Description 02/16/2025 11:00 AM EST Office Visit [facility] C[facility] [address] [facility] [address] [place] [address] Dina Solano APRN [address] [facility] [address] [place] [address] documented as of this encounter Visit Diagnoses Not on filedocumented in this encounter Care Teams Data Management Manager Relationship Specialty Start Date End Date Sandra Orozco APRN [facility] [address] [place] [address] PCP - General Internal Medicine 05/11/24 documented as of this encounter
--- OUTSIDE RECORDS SUMMARY | 2024-12-01 10:13 | XMS_ITS | Encounter Summary ---
Author Organization [employer] ([place], [place], [place], [place]) Address [address] [place] [address] Care Team Providers Care Budget Director Name Role Phone Sandra Orozco RUBEN Primary Care Provider Encounter Details Date Type Department Care Team (Late st Contact Info) Description 03/01/2020 Transcribed Document [facility] Family Medicine [facility] [place] [address] ProviderAide MD [address] [place] [address] Social History Tobacco Use Types Packs/Day [...] Historical MD Derek - 03/01/2020 11:34 AM [employer] DATE OF PROCEDURE: 03/01/2020 SURGEON: Noemi Mayfield [...] 18-gauge Tuohy needle was advanced by the ehpm-[id number] technique under direct fluoroscopic guidance into the [...] visit and the patient has been afebrile. /[id number] Noemi Mayfield MD, JELANI Pain Certified DELILAH/ANTHONY / KR / MODL /[id number] documented in this encounter Plan of Treatment Not on file documented as of this encounter Visit Diagnoses Not on filedocumented in this encounter Care Teams Budget Director Relationship Specialty Start Date End Date Sandra Orozco, WAREHOUSE PACKER [address] [place] [address] PCP - General Nurse Practitioner 01/24/22 documented as of this encounter
--- OUTSIDE RECORDS SUMMARY | 2024-12-01 10:13 | XMS_ITS | Clinical Summary ---
Author Organization [facility] Address [address] [place] [address] Care Team Providers Care Air Pumper Name Role Phone Adryan Cooper MD Primary Care Provider [phone] Allergies Active Allergy Reactions Criticality Noted Date [...] tablet (5 mg). 05/28/2016 Active HYDROcodone-gudelia taminophen ([place]) 10-325 MG tablet 1 tablet (10 mg [...] 2) 2008 [facility]-Breast Cancer Screening 04/06/201703/12, 04/06/2015 [id number] Vaccine ( season) 2024 01/20/2021, 06/16/2020 [facility]-Influenza [...] age to complete this [place] [address] COMBINED PRIORITY 1 CARD Care Teams Air Pumper Relationship Specialty Start Date End Date Adryan Cooper MD [address] [place] [address] PCP - General 07/22/20
--- OUTSIDE RECORDS SUMMARY | 2024-12-01 10:14 | XMS_ITS | Encounter Summary ---
Author Organization [facility] Address [address] [place] [address] Care Team Providers Care Ice Puller Name Role Phone Sandra Orozco APRN Primary Care Provider [phone] Encounter Details Date Type Department Care Team (Late st Contact Info) Description 11/23/2024 Readmission Management [facility] NURSE CALL CENTER [address] [place] [address] Eloise Farrar RN Social History Tobacco Use Types Packs/Day Years Used Date Smoking Tobacco: Former Cigarettes Smokeless Tobacco: Never Comments:Smoked since 1973 Alcohol Use Standard Drinks/Week Comments Not Currently 0 (1 standard drink = 0.6 oz pur e alcohol) former [facility] Utilities Answer Date Recorded In the past 12 months has [employer], gas, oil, or water [employer] threatened to shut off services in your [...] care, and heating? Not very hard 11/13/2024 [facility] of Occupat ional Health - [...] GED or equivalent No 11/13/[address] [place] 11/13/2024 PHQ-2 Answer Date Recorded Patient Health [...] CHF Week 1 Survey Flowsheet Row Responses [facility] patient discharged from? [place] Does the patient have one of the following disease processes/diagnoses(primary or secondary)? CHF CHF Week 1 attempt successful? No Unsuccessful attempts Attempt 1 ELOISE Cruz - Registered Nurse documented in this encounter Plan of Treatment Upcoming Encounters Date Type Department Care Team (Late st Contact Info) Description 02/16/2025 11:00 AM EST Office Visit [facility] CARDIOLOGY [address] [facility] [address] [place] [address] Dina Solano APRN [address] [facility] [address] [place] [address] documented as of this encounter Visit Diagnoses Not on filedocumented in this encounter Care Teams Ice Puller Relationship Specialty Start Date End Date Sandra Orozco APRN [address] [facility] [address] [facility] [address] [place] [address] PCP - General Internal Medicine 05/11/24 documented as of this encounter
--- OUTSIDE RECORDS SUMMARY | 2024-12-01 10:14 | XMS_ITS | Clinical Summary ---
Author Organization [employer] ([place], [place], [place], [place]) Address [address] [place] [address] Care Team Providers Care Engineering Intern Name Role Phone OrozcoKrysten randhawarafeal MIRANDA Primary Care Provider Allergies Active Allergy [...] your living situation today? I have a [facility] place to live 10/13/2023 Think about [...] Do you speak a language other than [facility]? No 10/13/2023 Do [...] 06/22/2009, 08/29/2001 Medical Devices Implanted Type Area Cancellation Clerk Device Identifier Shelf Expiration Date Model / Serial / Lot Sealant Durasl Spine 5ml [id number] - [id number] Implanted:Qty: 1 on 01/31/2022 by Emeka Fernández MD at [facility] IMPLANTS N/A: Back [employer] 07/09/[id number] / / [id number] Cement Spinal Confidence 2839-10-000 - [id number] Implanted:Qty: 2 on 10/14/2023 at [facility] IMPLANTS N/A: Back [employer]:DEPUY:DEPUY SPINE 06/08/2025 [id number] Insurance MEDICARE PART A B GENERIC COMMERCIAL Advance Directives For more information, please contact: [phone] Documents on File Type Date Recorded Patient Ben Day Artist Expl anation Advance Directives and Livin g Will 01/31/2022 8:44 AM * Full Code (Latest Code Status on File) Date Activated Date Inactivated Comments 10/12/2023 11:08 PM 10/15/2023 6:49 PM * Full Code Date Activated Date Inactivated Comments 01/31/2022 5:41 PM 02/01/2022 4:50 PM Healthcare Agents on File Name Relationship Healthcare Agent [facility] Communication Luis Anthony Son First Alternate Healthcare Decision-Maker Care Teams Engineering Intern Relationship Specialty Start Date End Date Sandra Orozco APRN [address] [address] PCP - General Nurse Practitioner 01/24/22
[2024-12-01 11:39] LABS: Cholesterol 180 mg/dl (140-200); HDL Cholesterol 41 mg/dl (40-60); Triglycerides 112 mg/dl (30-150)
== END 2024-12-01 23:59 | disposition home or self-care (01) ==
LOC: LAB 10:01
PROVIDERS: PCP Nurse Practitioner Family; Visit Provider Nurse Practitioner Family
DX: E78.5 Hyperlipidemia, unspecified (principal)
CPT/HCPCS: 36415; 80061

== ENCOUNTER 2024-12-23 09:59 | Outpatient (CLI) | payer MEDICARE, OTHER, SELFPAY ==
--- OUTSIDE RECORDS SUMMARY | 2024-11-12 12:30 | XMS_ITS | Encounter Summary ---
[facility] Address [address] [place] [address] Care Team Providers Care Front Counter Attendant Name Role Phone Sandra Orozco APRN Primary Care Provider [phone] Reason for Visit * Reason Comments Hyperlipidemia Chronic Venous Insufficiency Atrial Fibrillation Encounter Details Date Type Department Care Team (Late st Contact Info) Description 11/12/2024 12:30 PM EDT Office Visit [facility] CARDIOLOGY [address] [facility] [address] [address] Dina Solano APRN [address] [facility] [address] [place] [address] Shortness of breath (Primary Dx); Generalized edema; [...] = 0.6 oz pur e alcohol) former [facility] Utilities Answer Date Recorded In the past 12 months has [employer] electric, gas, oil, or water company threatened [...] care, and heating? Not very hard 11/13/2024 [facility] of Occupat ional Health - Occupational Stress [...] GED or equivalent No 11/13/2024 Preferred Language Omani 11/13/2024 PHQ-2 Answer Date Recorded Patient Health [...] of breath and lower extremity edema. Her recovery rn was concerned about heart failure and advised [...] Orozco APRN Date: 11/12/2024 Department: Minh REYES [facility] CARDIOLOGY [address] [place] [address] [address] [facility] [id number] Chief Complaint: Chief Complaint Patient presents with Hyperlipidemia Chronic Venous Insufficiency Atrial Fibrillation Problem list: Paroxysmal atrial fibrillation/History of ischemic CVA/TIAs status post loop explant [id number] (Female, Age, CVA, PAD) PAF noted [...] has been diagnosed with COPD by her recovery rn who she was at a follow-up with [...] of breath and lower extremity edema. Her recovery rn was concerned about heart failure and advised [...] evaluation. Patient reports she will go to [facility] this afternoon. Follow Up Return in about 2 weeks (around 11/26/2024) for With Me. Patient or patient registered representative verbalized consent for the use of Ambient Listening during the visit with Dina Solano APRN for chart documentation. 11/12/2024 12:47 EDT Dina Solano APRN [facility] Cardiology documented in this encounter Plan of Treatment Upcoming Encounters Date Type Department Care Team (Late st Contact Info) Description 02/16/2025 11:00 AM EST Office Visit [facility] CARDIOLOGY [address] [facility] [address] [place] [address] Dina Solano APRN [address] [facility] [address] [place] [address] documented as of this encounter Visit Diagnoses Diagnosis Shortness of breath- Primary Generalized edema Edema Chronic respiratory failure with hypoxia Paroxysmal atrial fibrillation Atrial fibrillation History of CVA (cerebrovascular accident) Transient ischemic attack (TIA), and cerebral infarction without residual deficits Moderate aortic valve regurgitation Peripheral arterial disease Unspecified peripheral vascular disease documented in this encounter Care Teams Front Counter Attendant Relationship Specialty Start Date End Date Sandra Orozco APRN [address] [place] [id number] PCP - General Internal Medicine 05/11/24 documented as of this encounter
--- OUTSIDE RECORDS SUMMARY | 2024-11-12 21:36 | XMS_ITS | Encounter Summary ---
[facility] Address [address] [place] [address] Care Team Providers Care Charter Boat Operator Name Role Phone Sandra Orozco APRN Primary Care Provider [phone] Reason for Visit * Reason Comments Shortness of Breath * Auth/Cert Specialty Diagnoses / Procedures Referred By Contac t Referred To Contact Diagnoses Respiratory failure with hypoxia Referral ID Status Reason Start Date Expiration Date Visits Re quested Visits Authorized [id number] 1 1 Encounter Details Date Type Department Care Team (Late st Contact Info) Description 11/12/2024 9:36 PM EDT - 11/14/2024 4:38 PM EDT Hospital Encounter [address] [place] [id number] Vasu Mckeon MD [address] [place] [address] Domitila Villalobos MD [address] [facility] 4Th [place] [address] Mel Palma DO [address] [place] [address] Vasu Luke MD [address] [address] Referred by health rn critical care (Primary Dx); Dyspnea on exertion; Chronic respiratory [...] = 0.6 oz pur e alcohol) former [facility] Utilities Answer Date Recorded In the past 12 months has [employer] electric, gas, oil, or water [employer] threatened to shut off services in your [...] care, and heating? Not very hard 11/13/2024 [facility] [place] of Occupat ional Health - Occupational Stress [...] GED or equivalent No 11/13/2024 Preferred Language Slovenian 11/13/2024 PHQ-2 Answer Date Recorded Patient Health [...] documented in this encounter Functional Status * AUDIT-C Score Answer Date of Assessment Author 0 [...] 11/12/2024 4:43 PM Minna Vazquez RN * [place] Suicide Severity Rating Scale (Screener/Recent Self-Report) Question [...] at all 11/13/2024 2:21 PM EDT Ruthie Helms RN Feeling down, depressed, or hopeless Not at all 11/13/2024 2:21 PM EDT Kelley Helms RN documented as of this encounter Discharge Summaries * Vasu Luke MD - 11/14/2024 1:15 PM EDT Images from the original note were not included. [facility] Medicine Services DISCHARGE SUMMARY Patient Name: Casi [...] outpatient labs/diagnostics: Pcp [address] Kirk ([facility]) ~1 week Regular pulmonary physician 1st available [...] motion Neuro: Face symmetric, speech clear, equal grocery stocker, moves all extremities Cardiac: rrr Resp: slightly [...] Date/Time Respiratory Panel PCR w/COVID-19(SARS-CoV-2) SIDRA/CHECO/SAUD/PAD/COR/ERIC In-House, SEQUINS STRINGER Swab in UTM/VTM, 2 HR TAT - Swab, Nasopharynx [[id number]] (Normal) Collected: 11/13/24 0326 Lab Status: Final [...] SCREENING ORDER (NO ISOLATION) - Swab, Nasopharynx [[id number]] (Normal) Collected: 11/12/24 192 Lab Status: Final result Specimen: Swab from Nasopharynx Updated: 11/12/242023 Narrative: The following orders were created for panel order COVID PRE-OP / PRE-PROCEDURE SCREENING ORDER (NO ISOLATION) - Swab, Nasopharynx. Procedure Abnormality Status --------- ------ COVID-19, FLU A/B, RSV P...[[id number]] Normal Final result Please view results for these tests on the individual orders. COVID-19, FLU A/B, RSV PCR 1 HR TAT - Swab, Nasopharynx [[id number]] (Normal) Collected: 11/12/241920 Lab Status: Final result Specimen: Swab from Nasopharynx Updated: 11/12/242023 COVID19 Not Detected Influenza A PCR Not Detected Influenza B PCR Not Detected RSV, PCR Not Detected Urine Culture - Urine, Urine, Clean Catch [[id number]] (Normal) Collected: 11/12/241919 Lab Status: Final result [...] MD 11/12/2024 8:31 PM EDT Workstation ID: [id number] XR Chest 1 View Result Date: 11/12/2024 XR CHEST 1 VW Date of Exam: 11/12/2024 6:28 PM EDT Indication: SOA triage protocol. Comparison: 07/16/2024 Findings: Heart size at the upper limits of normal. Pulmonary vessels normal. Lungs are clear. No pleural effusion. No pneumothorax. Impression: 1. No acute cardiopulmonary disease. Electronically Signed: Arben Neely MD 11/12/2024 7:02 PM EDT Workstation ID: [id number] Results for orders placed during the hospital [...] Comments) Swelling all over Nortriptyline Swelling Poison [place] Extract Hives, Itching, Swelling and Rash Poison [...] week Discharge Follow-up with Specialty: Dr. Kirk ([facility]) 1 week As directed Specialty: Dr. Kirk ([facility]) 1 week Discharge Follow-up with Specialty: regular fermenter operator (2 weeks or 1st available) As directed Specialty: regular fermenter operator (2 weeks or 1st available) Vasu Luke MD 11/14/24 Time Spent on Discharge: I spent 35 minutes on this discharge activity which included: hyde-wj-mrnovsowcuvpy with the patient, reviewing the data in the system, coordination of the care with the nursing staff as well as consultants, documentation, and entering orders. * Libertad Urbano, PT - 11/14/2024 7:40 AM EDT Patient Name: Casi Cruz : 1960 Today's Date: 11/14/2024 Admit Date: 11/12/2024 Visit Dx: ICD-10-CM ICD-9-CM 1. Referred by health rn critical care Z02.89 V68.89 2. Dyspnea on exertion R06.09 [...] MODERATE BY ECHO Aortic regurgitation MODERATE BY [facility] ECHO Arthritis Asthma Chronic respiratory failure with [...] RECORDER PLACEMENT: 11/06/2018- AE. LOOP RECORDER SERIAL #[id number] SINUS SURGERY General Information Row Name 11/14/24 [...] PT Physical Therapist Mobility Row Name 11/14/24 0719 Bed Mobility Bed Mobility supine-sit -LS Supine-Sit [place] (Bed Mobility) independent -LS Comment, (Bed Mobility) Pt transitioned supine to sit indep on flat bed surface without a rail. PerPT's clinical judgement, pt would be indep sit to supine as well. -LS Row Name 11/14/24 0740 Sit-Stand Transfer Sit-Stand [place] (Transfers) independent -LS Comment, (Sit-Stand Transfer) indep without AD -LS Row Name 11/14/24 0740 Gait/Stairs (Locomotion) [place] Level (Gait) independent -LS Patient was able [...] Therapist Physical Therapy Education Title: PT OT SITE SURVEYOR Therapies (In Progress) Topic: Physical Therapy (Resolved) [...] Description Service Date Service Provider Modifiers Qty [id number] HC PT EVAL LOW COMPLEXITY 4 11/14/2024 [...] EDT Acute Care - Occupational Therapy Discharge [facility] Patient Name: Casi Cruz : 1960 Today's Date: 11/13/2024 Admit Date: 11/12/2024 Visit Dx: ICD-10-CM ICD-9-CM 1. Referred by health rn critical care Z02.89 V68.89 2. Dyspnea on exertion R06.09 [...] MODERATE BY ECHO Aortic regurgitation MODERATE BY [facility] ECHO Arthritis Asthma Chronic venous insufficiency CKD [...] RECORDER PLACEMENT: 11/06/2018- AE. LOOP RECORDER SERIAL #[id number] SINUS SURGERY General Information Row Name 11/13/24 [...] Name 11/13/24 142 Bed Mobility Bed Mobility srsnvo-hhr-tmixfh -AN Zyvyjc-Dsq-Laufjl [place] (Bed Mobility) independent -AN [facility] 11/13/24 142 Transfers Transfers sit-stand transfer;stand-sit transfer -AN [facility] 11/13/24 142 Sit-Stand Transfer Sit-Stand [place] (Transfers) supervision -AN [facility] 11/13/24 142 Stand-Sit Transfer Stand-Sit [place] (Transfers) supervision -AN [facility] 11/13/24 142 Functional Mobility Functional Mobility- Ind. Level supervision required -AN [facility] 11/13/24 142 Activities of Daily Living BADL Assessment/Intervention lower body dressing;upper body dressing -AN [facility] 11/13/24 142 Lower Body Dressing Assessment/Training [place] Level (Lower Body Dressing) don;socks;independent -AN Position (Lower Body Dressing) edge of bed sitting -AN [facility] 11/13/241421 Upper Body Dressing Assessment/Training [place] Level (Upper Body Dressing) don;pajama/robe;independent -AN Position (Upper Body Dressing) edge of bed sitting -AN User Tierney (r) = Recorded By, (t) = Taken By, (c) = Cosigned By Initials Name Provider Type Che Poole OT Occupational Therapist Obj/Interventions [facility] Name 11/13/24 142 Sensory Assessment (Somatosensory) Sensory Assessment (Somatosensory) right UE -AN Sensory Subjective Reports numbness -AN Sensory Assessment hx of nerve damage -AN [facility] 11/13/24 142 Vision Assessment/Intervention Visual Impairment/Limitations WFL -AN [facility] 11/13/24 142 Range of Motion Comprehensive General Range of Motion no range of motion deficits identified -AN [facility] 11/13/24 142 Strength Comprehensive (MMT) General Manual Muscle Testing (MMT) Assessment no strength deficits identified -AN [facility] 11/13/24 142 Balance Balance Assessment sitting static [...] Pain Rating 0/10 - no pain -AN [facility] Name 11/13/241425 Plan of Care Review [...] (OT) Anticipated Discharge Disposition (OT) home -AN [facility] Name 11/13/241425 Vital Signs Pre SpO2 (%) 95 -AN O2 Delivery Pre Treatment room air -AN O2 Delivery Intra Treatment room air -AN Post SpO2 (%) 95 -AN O2 Delivery Post Treatment room air -AN Pre Patient Position Supine -AN Intra Patient Position Standing -AN Post Patient Position Supine -AN [facility] 11/13/241425 Positioning and Restraints Pre-Treatment Position in [...] Therapist Occupational Therapy Education Title: PT OT SITE SURVEYOR Therapies (In Progress) Topic: Occupational Therapy (In [...] Description Service Date Service Provider Modifiers Qty [id number] HC OT EVAL LOW COMPLEXITY 3 11/13/2024 Che Velazquez OT GO 1 OT Discharge Summary Anticipated Discharge Disposition (OT): home Reason for Discharge: Independent Discharge Destination: Home Che Velazquez OT 11/13/2024 documented in this encounter Discharge Instructions * Attachments The following attachments cannot be sent through Care Everywhere. * Heart Failure and Exercise: What to Know (Slovenian) * Prednisone Tablets (Slovenian) documented in this encounter Medications at Time [...] Meals & at Bedtime. HYDROcodone-acet aminophen (NORCO) 5-325 MG per tablet Take 1 tablet by mouth Every 4 (Four) Hours As Needed. 07/06/2024 levocetirizine (XYZAL) 5 MG tablet Take 1 [...] tablet 11/14/2024 4:15 PM EDT 11/15/2024 5 HYDROcodone-acet aminophen (NORCO) 10-325 MG per tablet Take 1 tablet by mouth Every 4 (Four) Hours As Needed. 5 documented as of this encounter Progress Notes * Christy Kirk MD - 11/14/2024 12:18 PM EDT Images from the original note were not included. Cardiology Progress Note Date:11/14/24 Subjective:Feels great, SOB and led edema resolved. Physical Exam Vitals and nursing note reviewed. Exam conducted with a photogrammetric technician present. HENT: Mouth/Throat: Mouth: Mucous membranes are [...] Results from last 7 days Lab Units 11/12/24191511/12/24 1717 PROBNP pg/mL -- 247.0 HSTROP T [...] Plan 1-acute on chronic hypoxic respiratory failure-resolved. -43-ocuo-pnro history of smoking-stopped last year -Likely COPD [...] loss diet and exercise program will consider Wechetnavy as an outpatient. The patient can be discharged home on current medications. Clinic FU with me in 1 week. Christy Kirk MD 11/14/24 12:18 EDT * Mel Palma DO - 11/13/2024 12:25 PM EDT Images from the original note were not included. [facility] Medicine Services ADMISSION FOLLOW-UP NOTE Patient admitted after midnight, H&P by my partner performed earlier on today's date reviewed. Interim findings, labs, and charting also reviewed. [facility] Hospital Problem List has been managed [...] from the original note were not included. [facility] Medicine Services HISTORY AND PHYSICAL Patient Name: [...] urinary symptoms. Pt follows w/ Pulmonology in [place]. Pt was seen for evaluation this week [...] MODERATE BY ECHO Aortic regurgitation MODERATE BY [facility] ECHO Arthritis Asthma Chronic venous insufficiency CKD [...] RECORDER PLACEMENT: 11/06/2018- AE. LOOP RECORDER SERIAL #[id number] SINUS SURGERY Family History: family history includes [...] Comments) Swelling all over Nortriptyline Swelling Poison [place] Extract Hives, Itching, Swelling and Rash Poison [...] SCREENING ORDER (NO ISOLATION) - Swab, Nasopharynx [[id number]] (Normal) Collected: 11/12/241920 Lab Status: Final result Specimen: Swab from Nasopharynx Updated: 11/12/242023 Narrative: The following orders were created for panel order COVID PRE-OP / PRE-PROCEDURE SCREENING ORDER (NO ISOLATION) - Swab, Nasopharynx. Procedure Abnormality Status --------- ------ COVID-19, FLU A/B, RSV P...[[id number]] Normal Final result Please view results for these tests on the individual orders. COVID-19, FLU A/B, RSV PCR 1 HR TAT - Swab, Nasopharynx [[id number]] (Normal) Collected: 11/12/241920 Lab Status: Final result [...] MD 11/12/2024 8:31 PM EDT Workstation ID: [id number] XR Chest 1 View Result Date: 11/12/2024 XR CHEST 1 VW Date of Exam: 11/12/2024 6:28 PM EDT Indication: SOA triage protocol. Comparison: 07/16/2024 Findings: Heart size at the upper limits of normal. Pulmonary vessels normal. Lungs are clear. No pleural effusion. No pneumothorax. Impression: Impression: 1. No acute cardiopulmonary disease. Electronically Signed: Arben Neely MD 11/12/2024 7:02 PM EDT Workstation ID: [id number] Assessment & Plan Assessment & Plan Respiratory [...] scheduled nebs -pt follows w/ Pulmonary in [place]- seen this week and referred to Cardiology Anemia -pt reports a hx of ROSE MARY -previous H/H 9.4/33.3 in 10/2023 -current H/H 9/32.5 -anemia panel pending -repeat CBC w/ am [...] Patient apparently was seen by pulmonology in [place] and was told that her lungs were [...] MODERATE BY ECHO Aortic regurgitation MODERATE BY [facility] ECHO Arthritis Asthma Chronic respiratory failure with [...] RECORDER PLACEMENT: 11/06/2018- AE. LOOP RECORDER SERIAL #[id number] SINUS SURGERY Family History Problem Relation Age [...] Patient apparently was seen by pulmonology in [place] and was told that her lungs were [...] further evaluation per primary team or appropriate vmware consultant. 5. For SMOOTH on CPAP: Continue CPAP. 6. For acute on chronic hypoxemic respiratory failure: Back to baseline oxygen requirement after diuresis. Continue supplemental oxygen. Wean as tolerated. Electronically signed by: Michele Sanchez MD 11/13/24 18:31 EDT *. Please note that portions of this note were completed with [employer] - a voice recognition program. * Christy [...] has history of COPD with greater than 70-oabb-qobw history of smoking. Quit 1 year ago. She encountered COVID several years ago followed by bilateral pulmonary atelectasis and chronic respiratory failure requiring home O2. She has mild to moderate aortic insufficiency on 2D echocardiogram from 2022 which was performed in [place]. Her last echo was over 2 years [...] short lived and does not radiate. In additionnoted worsening lower extremity swelling 01/10. She was seen by our nurse practitioner at the officeyesterday and sent in for admission. In ED [...] MODERATE BY ECHO Aortic regurgitation MODERATE BY [facility] ECHO Arthritis Asthma Chronic venous insufficiency CKD [...] RECORDER PLACEMENT: 11/06/2018- AE. LOOP RECORDER SERIAL #[id number] SINUS SURGERY , Family History Problem Relation Age of Onset Coronary artery disease Mother Heart attack Mother Hyperlipidemia Father Hypertension Father , and Allergies: Celecoxib, Hydrocodone, Cipro [ciprofloxacin hcl], Dexamethasone, Gabapentin, Levofloxacin, Nitrofurantoin, Nortriptyline, Poison oak extract, Repatha [evolocumab], and Wound dressing adhesive Physical Exam Vitals and nursing note reviewed. Exam conducted with a photogrammetric technician present. HENT: Mouth/Throat: Mouth: Mucous membranes are [...] Plan 1-acute on chronic hypoxic respiratory failure -66-syko-oceb history of smoking-stopped last year -Likely COPD exacerbation as chest x-ray and proBNP do not support heart failure. Recommend-2D echocardiogram-ordered. -Pulmonary consult. 2-chronic venous insufficiency of the lower extremities -SP bilateral greater saphenous ablation. Recommend-venous duplex-ordered. 3-mild to moderate aortic insufficiency . -2D echo pending. 4- obesity Recommend- Weight loss diet and exercise program will consider Wevy as an outpatient. Will follow with you thank you Christy Kirk MD 11/13/24 09:58 EDT documented in this encounter Nursing Notes * Jill Altamirano, BERNICE - 11/14/2024 1:53 PM EDT Problem: Adult Inpatient Plan of Care Goal: Plan of Care Review 11/14/2024 1352 by Jill Altamirano RN Outcome: Adequate for Care Transition 11/14/2024 1352 by Jill Altamirano, RN Outcome: Progressing 11/14/2024 1351 by Jill Altamirano, BERNICE Outcome: Progressing Flowsheets (Taken 11/14/2024 0740 by Libertad Urbano, PT) Outcome Evaluation: Pt is indep with mobility. She has good BLE strength and good balance. Skilled PT services are not indicated this was discussed and agreed upon with patient. Discharge PT., Goal: Patient-Specific Goal (Individualized) 11/14/2024 1352 by Jill Altamirano, RN Outcome: Adequate for Care Transition 11/14/2024 [...] Promotion/Fall Prevention: safety round/check completed Taken 11/14/2024 08 by Jill Altamirano RN Safety Promotion/Fall Prevention: [...] RN Medication Review/Management: medications reviewed Taken 11/14/2024 08 by Jill Altamirano RN Medication Review/Management: medications [...] Promotion/Fall Prevention: safety round/check completed Taken 11/14/2024 08 by Jill Altamirano RN Safety Promotion/Fall Prevention: [...] Documentation Taken 11/13/2024 0800 by Jill Altamirano RNdistillery miller Interventions: no interventions per patient request Intervention: [...] safety round/check completed toileting scheduled Taken 11/13/2024 025 by Vale Hammond RN Safety Promotion/Fall Prevention: activity supervised assistive device/personal items within reach clutter free environment maintained nonskid shoes/slippers when out of bed room organization consistent safety round/check completed toileting scheduled Intervention: Prevent Skin Injury Recent Flowsheet Documentation Taken 11/13/2024 0400 by Vale Hammond RN Body Position: position changed independently side-lying right Skin Protection: incontinence pads utilized skin sealant/moisture barrier applied Taken 11/13/2024 025 by Vale Hammond RN Body Position: position changed independently Skin Protection: incontinence pads utilized skin sealant/moisture barrier applied Intervention: Prevent and Manage VTE (Venous Thromboembolism) Risk Recent Flowsheet Documentation Taken 11/13/2024250 by Vale Hammond RN VTE Prevention/Management: (see MAR) other (see comments) Intervention: Prevent Infection Recent Flowsheet Documentation Taken 11/13/2024 0400 by Vale Hammond RN Infection Prevention: environmental surveillance performed rest/sleep promoted single patient room provided Taken 11/13/2024250 by Vale Hammond RN Infection Prevention: environmental surveillance performed rest/sleep promoted single patient room provided Goal: Optimal Comfort and Wellbeing Outcome: Progressing Intervention: Monitor Pain and Promote Comfort Recent Flowsheet Documentation Taken 11/13/2024 0400 by Vale Hammond RN Pain Management Interventions: [...] Patient/Family Anticipates Transition to: home Taken 11/13/2024 0254 by Vale Hammond RN Equipment Currently Used at Home: cpap [...] on Bumex, who was sent by her chromium plater for worsening leg swelling and dyspnea. This [...] MODERATE BY ECHO Aortic regurgitation MODERATE BY [facility] ECHO Arthritis Asthma Chronic venous insufficiency CKD [...] RECORDER PLACEMENT: 11/06/2018- AE. LOOP RECORDER SERIAL #[id number] SINUS SURGERY FAMILY HISTORY Family History Problem [...] pH, UA 5.5 5.0 - 8.0 Specific [place], UA >1.030 (H) 1.005 - 1.030 Glucose, [...] MD 11/12/2024 8:31 PM EDT Workstation ID: [id number] XR Chest 1 View Result Date: 11/12/2024 XR CHEST 1 VW Date of Exam: 11/12/2024 6:28 PM EDT Indication: SOA triage protocol. Comparison: 07/16/2024 Findings: Heart size at the upper limits of normal. Pulmonary vessels normal. Lungs are clear. No pleural effusion. No pneumothorax. Impression: 1. No acute cardiopulmonary disease. Electronically Signed: Arben Neely MD 11/12/2024 7:02 PM EDT Workstation ID: [id number] I ordered and independently reviewed the above [...] solution 3 mL (3 mL Nebulization Given 11/12/242251) iopamidol (ISOVUE-370) 76 % injection 75 mL (75 mL Intravenous Given 11/12/241945) MEDICAL DECISION MAKING, PROGRESS, and CONSULTS All [...] [address] Angiogram Chest Pulmonary Embolism [place] Draw Comprehensive Metabolic Panel BNP High Sensitivity [...] shows history of COPD and CKD [CC] 1717 This is 64-year-old with COPD, chronic respiratory failure, aortic valve regurgitation on Bumex, who was sent by her chromium plater for worsening leg swelling and dyspnea. This [...] 80s. I have contacted Dr. Kirk her chromium plater who agrees with admission does not want any special orders at this time but will evaluate in the morning. Hospitalist team consulted for admission. [CC] ED Course User Index [CC] Vasu Mckeon MD Shared Decision Making: After my consideration of clinical presentation and any laboratory/radiology studies obtained, I discussed the findings with the patient/patient unit support representative who is in agreement with the treatment plan and the final disposition. Risks and benefits of discharge and/or observation/admission were discussed. OF 01:41 EDT VITALS: BP - 95/49 HR - 87 TEMP - 97.8 ??F (36.6 ??C) (Oral) O2 SATS - 95% DIAGNOSIS Final diagnoses: Referred by health rn critical care Dyspnea on exertion Chronic respiratory failure with [...] 11/13/2024 2:31 PM EDT Discharge Planning Assessment [facility] Patient Name: Casi Cruz Today's Date: 11/13/2024 Admit Date: 11/12/2024 Plan: Home at [place] Discharge Needs Assessment Row Name 11/13/24 1425 Living Environment People in Home alone Current Living Arrangements home Resource/Environmental Concerns Resource/Environmental Concerns none Transportation Concerns none Discharge Needs Assessment Equipment Currently Used at Home cane, straight;cpap;oxygen Concerns to be Addressed denies needs/concerns at this time Discharge Plan Row Name 11/13/24 1426 Plan Plan Home at [place] Patient/Family in Agreement with Plan yes Plan Comments Spoke with patient at the bedside. Patient lives alone in a home in [facility]. Wears 2L of oxygen and CPAP provided by [employer]. Independent and ambulates with a straight cane as needed. Not current with and outpatient services. PCP is Sandra Orozco APRN. Pharmacy is [facility]. Insurance is Medicare A & B. Plan is home at [place] and has transportation. Denies concerns and needs [...] Office Visit [facility] [address], [place] [address] Dina Solano APRN [address] [place] [address] documented as of this encounter Procedures Procedure [...] EDT RESPIRATORY PANEL PCR W/ COVID-19 (SARS-COV-2), SEQUINS STRINGER SWAB IN UTM/VTP, 2 HR TAT Routine 11/13/2024 3:26 AM EDT BLOOD GAS, VENOUS W/CO-OXIMETRY STAT 11/12/2024 11:[address] ANGIOGRAM CHEST PULMONARY EMBOLISM STAT 11/12/2024 7:46 PM EDT COVID-19/FLUA&B/RSV, SEQUINS STRINGER SWAB IN TRANSPORT MEDIA 1 HR TAT [...] AND COLOR FLOW (11/14/2024 11:32 AM EDT) [facility] EF(MOD-bp) 72.2 % LVIDd 4.3 cm LVIDs [...] - 10.80 10*3/mm3 11/13/2024 12:36 PM EDT [facility] RBC 3.89 3.77 - 5.28 10*6/mm3 11/13/2024 12:36 PM EDT [facility] Hemoglobin 8.1(L) 12.0 - 15.9 g/dL 11/13/2024 12:36 PM EDT [facility] Hematocrit 29.1(L) 34.0 - 46.6 % 11/13/2024 12:36 PM EDT [facility] [facility] MCV 74.8(L) 79.0 - 97.0 fL 11/13/2024 12:36 PM EDT [facility] MCH 20.8(L) 26.6 - 33.0 pg 11/13/2024 12:36 PM EDT [facility] MCHC 27.8(L) 31.5 - 35.7 g/dL 11/13/2024 12:36 PM EDT [facility] RDW 19.0(H) 12.3 - 15.4 % 11/13/2024 12:36 PM EDT [facility] RDW-SD 51.3 37.0 - 54.0 fl 11/13/2024 12:36 PM EDT [facility] MPV 9.8 6.0 - 12.0 fL 11/13/2024 12:36 PM EDT [facility] Platelets 227 140 - 450 10*3/mm3 11/13/2024 12:36 PM EDT [facility] Neutrophil % 63.6 42.7 - 76.0 % 11/13/2024 12:36 PM EDT [facility] Lymphocyte % 23.3 19.6 - 45.3 % 11/13/2024 12:[facility] Monocyte % 8.9 5.0 - 12.0 % 11/13/2024 12:36 PM [facility] Eosinophil % 2.8 0.3 - 6.2 % 11/13/2024 12:36 PM [facility] Basophil % 0.7 0.0 - 1.5 % 11/13/2024 12:36 PM EDT [facility] Immature Grans % 0.7(H) 0.0 - 0.5 % 11/13/2024 12:36 PM [facility] Neutrophils, Absolute 3.44 1.70 - 7.00 10*3/mm3 11/13/2024 12:36 PM [facility] Lymphocytes, Absolute 1.26 0.70 - 3.10 10*3/mm3 11/13/2024 12:36 PM [facility] Monocytes, Absolute 0.48 0.10 - 0.90 10*3/mm3 11/13/2024 12:36 PM [facility] Eosinophils, Absolute 0.15 0.00 - 0.40 10*3/mm3 11/13/2024 12:36 PM EDT [facility] Basophils, Absolute 0.04 0.00 - 0.20 10*3/mm3 11/13/2024 12:36 PM [facility] Immature Grans, Absolute 0.04 0.00 - 0.05 10*3/mm3 11/13/2024 12:36 PM [facility] nRBC 0.0 0.0 - 0.2 /100 WBC 11/13/2024 12:36 PM EDT [facility] Blood Venipuncture / Unknown 11/13/2024 12:07 PM EDT 11/13/2024 12:26 PM EDT Aaliyah Abhijeet MIRANDA LAB BLOOD ORDERABLES Final Re sult [facility]
[address] [place] [address], * (ABNORMAL) Reticulocytes (11/13/2024 12:07 PM EDT) Pathologist [facility] [place] Reticulocyte % 2.78(H) 0.70 - 1.90 % 11/13/2024 12:32 PM EDT [facility] Reticulocyte Absolute 0.1081 0.0200 - 0.1300 10*6/mm3 11/13/2024 12:32 PM EDT [facility] Blood Venipuncture / Unknown 11/13/2024 12:07 PM EDT 11/13/2024 12:26 PM EDT Aaliyah Jha APRN LAB BLOOD ORDERABLES Final Re sult Performing Organization Address City/[facility]/ZIP Co de Phone Number [facility]
[address] [place] [address], * Folate RBC (11/13/2024 12:07 PM EDT) Folate, Hemolysate 538.0 Not Estab. ng/mL 11/16/2024 9:09 AM EDT [facility] Hematocrit 40.7 34.0 - 46.6 % 11/16/2024 9:09 AM EDT [facility] RBC Folate 1322 >498 ng/mL 11/16/2024 9:09 AM EDT [facility] Blood Venipuncture / Unknown 11/13/2024 12:07 PM EDT 11/13/2024 12:26 PM EDT Narrative [facility] - 11/16/2024 9:09 AM EDT Performed at: [address] [place] [id number] Neurodiagnostic Technologist: Gomez Crooks PhD, Phone: [phone] Aaliyah Jha APRN LAB BLOOD ORDERABLES Edited R esult - Final Performing Organization Address City/[facility]/ZIP Co de Phone Number [facility] [address] [place] [address], [place] [phone] * TSH (11/13/2024 12:07 PM EDT) TSH 2.770 0.270 - 4.200 uIU/mL 11/13/2024 12:56 PM EDT [facility] Blood Venipuncture / Unknown 11/13/2024 12:07 PM EDT 11/13/2024 12:26 PM EDT Aaliyah Jha APRN LAB BLOOD ORDERABLES Final Re sult Performing Organization Address City/[facility]/ZIP Co de Phone Number [facility]
[address] [place] [address], [place] [phone] * (ABNORMAL) Hemoglobin A1c (11/13/2024 12:07 PM EDT) Hemoglobin A1C 5.84(H) 4.80 - 5.60 % 11/13/2024 1:23 PM EDT [facility] Blood Venipuncture / Unknown 11/13/2024 12:07 PM EDT 11/13/2024 12:26 PM EDT Narrative [facility] - 11/13/2024 1:23 PM EDT Hemoglobin A1C Ranges: Increased Risk for Diabetes 5.7% to 6.4% Diabetes >= 6.5% Diabetic Goal < 7.0% Aaliyah Abhijeet SERVICE WRITER ADVISOR LAB BLOOD ORDERABLES Final Re sult Performing Organization Address City/[facility]/ZIP Co de Phone Number [facility]
[address] [place] [address], * Magnesium (11/13/2024 12:07 PM EDT) Magnesium 1.9 1.6 - 2.4 mg/dL 11/13/2024 12:56 PM EDT [facility] Blood Venipuncture / Unknown 11/13/2024 12:07 PM EDT 11/13/2024 12:26 PM EDT Aaliyah Jha APRN LAB BLOOD ORDERABLES Final Re sult Performing Organization Address [facility] Co de Phone Number [facility]
[address] [place] [address], * (ABNORMAL) Basic Metabolic Panel (11/13/2024 12:07 PM EDT) Glucose 100(H) 65 - 99 mg/dL 11/13/2024 12:56 PM EDT [facility] BUN 19.7 8.0 - 23.0 mg/dL 11/13/2024 12:56 PM EDT [facility] Creatinine 0.93 0.57 - 1.00 mg/dL 11/13/2024 12:56 PM EDT [facility] Sodium 143 136 - 145 mmol/L 11/13/2024 12:56 PM EDT [facility] Potassium 3.8 3.5 - 5.2 mmol/L 11/13/2024 12:56 PM EDT [facility] Chloride 102 98 - 107 mmol/L 11/13/2024 12:56 PM EDT [facility] CO2 31.1(H) 22.0 - 29.0 mmol/L 11/13/2024 12:56 PM EDT [facility] Calcium 8.6 8.6 - 10.5 mg/dL 11/13/2024 12:56 PM EDT [facility] BUN/Creatinine Ratio 21.2 7.0 - 25.0 11/13/2024 12:56 PM EDT [facility] Anion Gap 9.9 5.0 - 15.0 mmol/L 11/13/2024 12:56 PM EDT [facility] eGFR 67.9 >60.0 mL/min/1.7 3 11/13/2024 12:56 PM EDT [facility] Blood Venipuncture / Unknown 11/13/2024 12:07 PM EDT 11/13/2024 12:26 PM EDT Narrative [facility] - 11/13/2024 12:56 PM EDT GFR [...] race as a factor us Aaliyah Jha SERVICE WRITER ADVISOR LAB BLOOD ORDERABLES Final Re sult [facility]
[address] [place] [address], * Duplex Venous Lower Extremity - Bilateral [...] 12 Lead Dyspnea (11/13/2024 5:53 AM EDT) [facility] QT Interval 410 ms ECG QTC Interval [...] change was found Confirmed by ABDULLAHI HENDRICKSON ([id number]) on 11/13/2024 7:39:07 PM Referred By: Confirmed [...] change was found Confirmed by ABDULLAHI HENDRICKSON ([id number]) on 11/13/2024 7:39:07 PM Referred By: Confirmed By: ABDULLAHI HENDRICKSON Aaliyah Jha APRN ECG ORDERABLES Final Result ECG * Respiratory Panel PCR w/COVID-19(SARS-CoV-2) SIDRA/CHECO/SAUD/PAD/COR/ERIC In-House, SEQUINS STRINGER Swab in UTM/VTM, 2 HR TAT - Swab, Nasopharynx (11/13/2024 3:26 AM EDT) ADENOVIRUS, PCR Not Detected Not Detected [facility] 11/13/2024 4:48 AM EDT [facility] Coronavirus 229E Not Detected Not Detected [facility] 11/13/2024 4:48 AM EDT [facility] Coronavirus HKU1 Not Detected Not Detected [facility] 11/13/2024 4:48 AM EDT [facility] Coronavirus NL63 Not Detected Not Detected [facility] 11/13/2024 4:48 AM EDT [facility] Coronavirus OC43 Not Detected Not Detected [facility] 11/13/2024 4:48 AM EDT [facility] COVID19 Not Detected Not Detected - Ref. Range [facility] 11/13/2024 4:48 AM EDT [facility] Human Metapneumovirus Not Detected Not Detected [facility] 11/13/2024 4:48 AM EDT [facility] Human Rhinovirus/Enterov irus Not Detected Not Detected [facility] 11/13/2024 4:48 AM EDT [facility] Influenza A PCR Not Detected Not Detected [facility] 11/13/2024 4:48 AM EDT [facility] Influenza B PCR Not Detected Not Detected [facility] 11/13/2024 4:48 AM EDT [facility] Parainfluenza Virus 1 Not Detected Not Detected [facility] 11/13/2024 4:48 AM EDT [facility] Parainfluenza Virus 2 Not Detected Not Detected [facility] 11/13/2024 4:48 AM EDT [facility] Parainfluenza Virus 3 Not Detected Not Detected [facility] 11/13/2024 4:48 AM EDT [facility] Parainfluenza Virus 4 Not Detected Not Detected [facility] 11/13/2024 4:48 AM EDT [facility] RSV, PCR Not Detected Not Detected [facility] 11/13/2024 4:48 AM EDT [facility] Bordetella pertussis pcr Not Detected Not Detected [facility] 11/13/2024 4:48 AM EDT [facility] Bordetella parapertussis PCR Not Detected Not Detected [facility] 11/13/2024 4:48 AM EDT [facility] Chlamydophila pneumoniae PCR Not Detected Not Detected [facility] 11/13/2024 4:48 AM EDT [facility] Mycoplasma pneumo by PCR Not Detected Not Detected [facility] 11/13/2024 4:48 AM EDT [facility] Swab Nasopharyngeal structure / Unknown Collection / Unknown 11/13/2024 3:26 AM EDT 11/13/2024 4:00 AM EDT [facility] - 11/13/2024 4:48 AM EDT In [...] MICROBIOLOGY - GENERAL ORDERA BLES Final Result [facility]
[address] [place] [address], * (ABNORMAL) Blood Gas, Venous With Co-Ox (11/12/2024 11:16 PM EDT) Site Nurse/Dr Draw 11/12/2024 11:17 PM EDT [facility] pH, Venous 7.337 7.310 - 7.410 pH Units 11/12/2024 11:17 PM EDT [facility] pCO2, Venous 59.6(H) 41.0 - 51.0 mm Hg 11/12/2024 11:17 PM EDT [facility] Comment:83 Value above refer ence range pO2, Venous 30.4 27.0 - 53.0 mm Hg 11/12/2024 11:17 PM EDT [facility] HCO3, Venous 31.9(H) 22.0 - 28.0 mmol/L 11/12/2024 11:17 PM EDT [facility] Base Excess, Venous 5.0(H) -2.0 - 2.0 mmol/L 11/12/2024 11:17 PM EDT [facility] Hemoglobin, Blood Gas 9.3(L) 14 - 18 g/dL 11/12/2024 11:17 PM EDT [facility] Oxyhemoglobin Venous 48.3 % 06/2024 11:17 PM EDT [facility] Methemoglobin Venous 0.4 % 06/2024 11:17 PM EDT [facility] Carboxyhemoglobin Venous 1.7 % 11/12/2024 11:17 PM EDT [facility] CO2 Content 33.7(H) 22 - 33 mmol/L 11/12/2024 11:17 PM EDT [facility]ER[facility] Temperature 37.0 11/12/2024 11:17 PM EDT [facility] Barometric Pressure for Blood Gas 11/12/2024 11:17 PM EDT [facility] Comment:N/A Modality Nasal Cannula 11/12/2024 11:17 PM EDT [facility]ER[facility] FIO2 28 % 11/12/2024 11:17 PM EDT [facility] THER[facility] Rate 0 Breaths/ minute 11/12/2024 11:17 PM EDT [facility]ER[facility] PIP 0 cmH2O 11/12/2024 11:17 PM EDT [facility] Comment:Meter: [id number] [employer] Newspaper: [id number] IPAP 0 11/12/2024 11:17 PM EDT [facility]ER[facility] EPAP 0 11/12/2024 11:17 PM EDT [facility] THER[facility] Venous Blood 11/12/2024 11:1 6 PM EDT 11/12/2024 11:16 PM EDT us Vasu Mckeon MD LAB BLOOD ORDERABLES Fin al Result [facility]
[address] [place] [address], * CT Angiogram Chest Pulmonary Embolism (11/12/2024 7:46 PM EDT) Anatomical Region Laterality Modality Chest N/A Computed Tomogra phy 11/12/2024 8:22 PM EDT Impressions 11/12/2024 8:31 PM EDT No evidence of pulmonary embolus. No acute abnormality. Electronically Signed: Jed Machuca MD 11/12/2024 8:31 PM EDT Workstation ID: [id number] Hermann 11/12/2024 8:[address] ANGIOGRAM CHEST [...] MD 11/12/2024 8:31 PM EDT Workstation ID: [id number] Vasu Mckeon MD IMG CT ORDERABLES Final Result * COVID-19, FLU A/B, RSV PCR 1 HR TAT - Swab, Nasopharynx (11/12/2024 7:21 PM EDT) Pathologist [facility] [place] COVID19 Not Detected Not Detected - Ref. Range CEPHEID GENEXPERT 11/12/2024 8:24 PM EDT [facility] Influenza A PCR Not Detected Not Detected [facility] [employer]EXP[employer] 11/12/2024 8:24 PM EDT [facility] Influenza B PCR Not Detected Not Detected [facility] GENEXPERT 11/12/2024 8:24 PM EDT [facility] RSV, PCR Not Detected Not Detected CEPHEID GENEXPERT 11/12/2024 8:24 PM EDT [facility] Swab Nasopharyngeal structure / Unknown Collection / Unknown 11/12/2024 7:21 PM EDT 11/12/2024 7:46 PM EDT Vasu Mckeon MD MICROBIOLOGY - GENERAL O RDERABLES Final Result [facility]
[address] [place] [address], * Sodium, Urine, Random - Urine, Clean Catch (11/12/2024 7:20 PM EDT) Pathologist [facility] [place] Sodium, Urine <20 mmol/L 11/13/2024 3:37 AM EDT [facility] Urine Urine specimen obtained by clean catch procedure / Unknown Collection / Unknown 11/12/2024 7:20 PM EDT 11/12/2024 7:46 PM EDT [facility] - 11/13/2024 3:37 AM EDT Reference intervals for random urine have not been established. Clinical usage is dependent upon physician's interpretation in combination with other laboratory tests. us Aaliyah Jha APRN URINE ORDERABLES Final Result [facility]
[address] [place] [address], * Osmolality, Urine - Urine, Clean Catch (11/12/2024 7:20 PM EDT) Osmolality, Urine 837 300 - 1,100 mOsm/kg 11/13/2024 4:00 AM EDT [facility] Urine Urine specimen obtained by clean catch procedure / Unknown Collection / Unknown 11/12/2024 7:20 PM EDT 11/12/2024 7:46 PM EDT us Aaliyah Jha APRN URINE ORDERABLES Final Result [facility]
[address] [place] [address], * Creatinine Urine Random (kidney function) GFR component - Urine, Clean Catch (11/12/2024 7:20 PM EDT) Creatinine, Urine 276.6 mg/dL 11/13/2024 9:46 AM EDT [facility] Urine Urine specimen obtained by clean catch procedure / Unknown Collection / Unknown 11/12/2024 7:20 PM EDT 11/13/2024 3:13 AM EDT [facility] - 11/13/2024 9:46 AM EDT Reference intervals for random urine have not been established. Clinical usage is dependent upon physician's interpretation in combination with other laboratory tests. us Aaliyah Jha APRN URINE ORDERABLES Final Result Performing Organization Address City/[facility]/ZIP Co de Phone Number [facility]
[address] [place] [address], * Urine Culture - Urine, Urine, Clean Catch (11/12/2024 7:20 PM EDT) Urine Culture No growth [id number] 11/14/2024 12:26 PM EDT [facility] Urine Urine specimen obtained by clean catch procedure / Unknown Collection / Unknown 11/12/2024 7:20 PM EDT 11/13/2024 12:57 AM EDT Vasu Mckeon MD MICROBIOLOGY - GENERAL O RDERABLES Final Result Performing Organization Address City/[facility]/ZIP Co de Phone Number [facility]
[address] [place] [address], * (ABNORMAL) Urinalysis, Microscopic Only - Urine, Clean Catch (11/12/2024 7:20 PM EDT) RBC, UA 0-2 None Seen, 0-2 /HPF 11/12/2024 8:00 PM EDT [facility] WBC, UA 11-20(A) None Seen, 0-2 /HPF 11/12/2024 8:00 PM EDT [facility] Bacteria, UA None Seen None Seen /HPF 11/12/2024 8:00 PM EDT [facility] Squamous Epithelial Cells, UA 3-6(A) None Seen, 0-2 /HPF 11/12/2024 8:00 PM EDT [facility] Hyaline Casts, UA 0-2 None Seen /LPF 11/12/2024 8:00 PM EDT [facility] Methodology Automated Microscopy 11/12/2024 8:00 PM EDT [facility] Urine Urine specimen obtained by clean catch procedure / Unknown Collection / Unknown 11/12/2024 7:20 PM EDT 11/12/2024 7:46 PM EDT us Vasu Mckeon MD URINE ORDERABLES Final R esult [facility]
[address] [place] [address], * (ABNORMAL) Urinalysis With Microscopic If Indicated (No Culture) - Urine, Clean Catch (11/12/2024 7:20 PM EDT) Color, UA Yellow Yellow, Straw 11/12/2024 8:00 PM EDT [facility] Appearance, UA Clear Clear 11/12/2024 8:00 PM EDT [facility] pH, UA 5.5 5.0 - 8.0 11/12/2024 8:00 PM EDT [facility] Specific [place], UA >1.030(H) 1.005 - 1.030 11/12/2024 8:00 PM EDT [facility] Glucose, UA Negative Negative 11/12/2024 8:00 PM EDT [facility] Ketones, UA Negative Negative 11/12/2024 8:00 PM EDT [facility] Bilirubin, UA Negative Negative 11/12/2024 8:00 PM EDT [facility] Blood, UA Negative Negative 11/12/2024 8:00 PM EDT [facility] Protein, UA Trace(A) Negative 11/12/2024 8:00 PM EDT [facility] Leuk Esterase, UA Small (1+)(A) Negative 11/12/2024 8:00 PM EDT [facility] Nitrite, UA Negative Negative 11/12/2024 8:00 PM EDT [facility] Urobilinogen, UA 1.0 E.U./dL 0.2 - 1.0 E.U./dL 11/12/2024 8:00 PM EDT [facility] Urine Urine specimen obtained by clean catch procedure / Unknown Collection / Unknown 11/12/2024 7:20 PM EDT 11/12/2024 7:46 PM EDT Vasu Mckeon MD URINE ORDERABLES Final R esult [facility]
[address] [place] [address], * Ferritin (11/12/2024 7:16 PM EDT) Ferritin 13.80 13.00 - 150.00 ng/mL 11/13/2024 3:24 AM EDT [facility] Blood Venipuncture / Unknown 11/12/2024 7:16 PM EDT 11/13/2024 2:57 AM EDT Narrative [facility] - 11/13/2024 3:24 AM EDT Results may be falsely decreased if patient taking Biotin. Aaliyah Jha APRN LAB BLOOD ORDERABLES Final Re sult Performing Organization Address City/[facility]/ZIP Co de Phone Number [facility]
[address] [place] [address], * (ABNORMAL) Iron Profile w/o Ferritin (11/12/2024 7:16 PM EDT) Iron 21(L) 37 - 145 mcg/dL 11/13/2024 3:24 AM EDT [facility] Iron Saturation (TSAT) 4(L) 20 - 50 % 11/13/2024 3:24 AM EDT [facility] Transferrin 321 200 - 360 mg/dL 11/13/2024 3:24 AM EDT [facility] TIBC 478 298 - 536 mcg/dL 11/13/2024 3:24 AM EDT [facility] Blood Venipuncture / Unknown 11/12/2024 7:16 PM EDT 11/13/2024 2:57 AM EDT Aaliyahcolleen Jha APRN LAB BLOOD ORDERABLES Final Re sult Performing Organization Address [facility] Co de Phone Number [facility]
[address] [place] [address], * (ABNORMAL) High Sensitivity Troponin T 1Hr (11/12/2024 7:16 PM EDT) HS Troponin T 16(H) <14 ng/L 11/12/2024 7:53 PM EDT [facility] Troponin T Numeric Delta -1 ng/L 11/12/2024 7:53 PM EDT [facility] Troponin T % Delta -6 Abnormal if >/= 20% 11/12/2024 7:53 PM EDT [facility] Blood Line / Unknown 11/12/2024 7: 16 PM EDT 11/12/2024 7:20 PM EDT Narrative [facility] - 11/12/2024 7:53 PM EDT High [...] ORDERABLES Fin al Result Performing Organization Address [facility]/ZIP Co de Phone Number [facility]
[address] [place] [address], * XR Chest 1 View (11/12/2024 6:30 PM EDT) Anatomical Region Laterality Modality Body N/A Radiographic Tatyana ging 11/12/2024 7:00 PM EDT Impressions 11/12/2024 7:02 PM EDT Impression: 1. No acute cardiopulmonary disease. Electronically Signed: Arben Neely MD 11/12/2024 7:02 PM EDT Workstation ID: [id number] Narrative 11/12/2024 7:02 PM EDT XR CHEST [...] MD 11/12/2024 7:02 PM EDT Workstation ID: [id number] Vasu Mckeon MD IMG DIAGNOSTIC IMAGING O RDERABLES Final Result * (ABNORMAL) Vitamin B12 (11/12/2024 5:17 PM EDT) [facility] Vitamin B-12 1,669(H) 211 - 946 pg/mL 11/13/2024 9:54 AM EDT [facility] Blood Venipuncture / Unknown 11/12/2024 5:17 PM EDT 11/13/2024 2:59 AM EDT Narrative [facility] - 11/13/2024 9:54 AM EDT Results may be falsely increased if patient taking Biotin. Aaliyah Jha APRN LAB BLOOD ORDERABLES Final Re sult [facility]
[address] [place] [address], * Folate (11/12/2024 5:17 PM EDT) [facility] Folate >20.00 4.78 - 24.20 ng/mL 11/13/2024 9:54 AM EDT [facility] Blood Venipuncture / Unknown 11/12/2024 5:17 PM EDT 11/13/2024 2:59 AM EDT Narrative [facility] - 11/13/2024 9:54 AM EDT Results may be falsely increased if patient taking Biotin. Aaliyah Jha APRN LAB BLOOD ORDERABLES Final Re sult [facility]
[address] [place] [address], * Scan Slide (11/12/2024 5:17 PM EDT) Anisocytosis Slight/1+ None Seen 11/12/2024 6:07 PM EDT [facility] Hypochromia Slight/1+ None Seen 11/12/2024 6:07 PM EDT [facility] Microcytes Mod/2+ None Seen 11/12/2024 6:07 PM EDT [facility] WBC Morphology Normal Normal 11/12/2024 6:07 PM EDT [facility] Platelet Morphology Normal Normal 11/12/2024 6:07 PM EDT [facility] Blood Venipuncture / Unknown 11/12/2024 5:17 PM EDT 11/12/2024 5:17 PM EDT Vasu Mckeon MD LAB BLOOD ORDERABLES Fin al Result [facility]
[address] [place] [address], [place] [phone] * Magnesium (11/12/2024 5:17 PM EDT) Magnesium 1.9 1.6 - 2.4 mg/dL 11/12/2024 5:51 PM EDT [facility] Blood Venipuncture / Unknown 11/12/2024 5:17 PM EDT 11/12/2024 5:17 PM EDT Vasu Mckeon MD LAB BLOOD ORDERABLES Fin al Result Performing Organization Address City/[facility]/ZIP Co de Phone Number [facility]
[address] [place] [address], * Phosphorus (11/12/2024 5:17 PM EDT) Phosphorus 4.1 2.5 - 4.5 mg/dL 11/12/2024 5:51 PM EDT [facility] Blood Venipuncture / Unknown 11/12/2024 5:17 PM EDT 11/12/2024 5:17 PM EDT Vasu Mckeon MD LAB BLOOD ORDERABLES Fin al Result Performing Organization Address [facility] Co de Phone Number [facility]
[address] [place] [address], * TSH Rfx On Abnormal To Free T4 (11/12/2024 5:17 PM EDT) TSH 2.480 0.270 - 4.200 uIU/mL 11/12/2024 5:51 PM EDT [facility] Blood Venipuncture / Unknown 11/12/2024 5:17 PM EDT 11/12/2024 5:17 PM EDT Vasu Mckeon MD LAB BLOOD ORDERABLES Fin al Result Performing Organization Address City/[facility]/ZIP Co de Phone Number [facility]
[address] [place] [address], * Lipase (11/12/2024 5:17 PM EDT) Lipase 20 13 - 60 U/L 11/12/2024 5:51 PM EDT [facility] Blood Venipuncture / Unknown 11/12/2024 5:17 PM EDT 11/12/2024 5:17 PM EDT Vasu Mckeon MD LAB BLOOD ORDERABLES Fin al Result Performing Organization Address [facility] Phone Number [facility]
[address] [place] [address], * Lactic Acid, Plasma (11/12/2024 5:17 PM EDT) [facility] Lactate 1.6 0.5 - 2.0 mmol/L 11/12/2024 5:49 PM EDT [facility] Comment:Falsely depressed re sults may occur on samples drawn from patients receiving N-Acetylcysteine (NAC) or Metamizole. Blood Venipuncture / Unknown 11/12/2024 5:17 PM EDT 11/12/2024 5:17 PM EDT Vasu Mckeon MD LAB BLOOD ORDERABLES Fin al Result Performing Organization Address [facility] Phone Number [facility]
[address] [place] [address], * (ABNORMAL) D-dimer, Quantitative (11/12/2024 5:17 PM EDT) [facility] D-Dimer, Quantitative 10.36(H) 0.00 - 0.66 MCGFEU/mL 11/12/2024 6:00 PM EDT [facility] Blood Venipuncture / Unknown 11/12/2024 5:17 PM EDT 11/12/2024 5:17 PM EDT Narrative [facility] - 11/12/2024 6:00 PM EDT According to the assay car escort's published package insert, a normal (<0.50 MCGFEU/mL) D-dimer result in conjunction with a non-high clinical probability assessment, excludes deep vein thrombosis (DVT) and pulmonary embolism (PE) with high sensitivity. D-dimer values increase with age and this can make VTE exclusion of an older population difficult. To address this, the [employer], based on best available [...] and an 80 year old 0.80 MCGFEU/mL. Vasu Mckeon MD LAB BLOOD ORDERABLES [facility] al Result [facility]
[address] [place] [address] * (ABNORMAL) CBC Auto Differential (11/12/2024 5:17 PM EDT) [facility] WBC 5.82 3.40 - 10.80 10*3/mm3 11/12/2024 6:07 PM EDT [facility] RBC 4.33 3.77 - 5.28 10*6/mm3 11/12/2024 6:07 PM EDT [facility] Hemoglobin 9.0(L) 12.0 - 15.9 g/dL 11/12/2024 6:07 PM EDT [facility] Hematocrit 32.5(L) 34.0 - 46.6 % 11/12/2024 6:07 PM EDT [facility] MCV 75.1(L) 79.0 - 97.0 fL 11/12/2024 6:07 PM EDT [facility] MCH 20.8(L) 26.6 - 33.0 pg 11/12/2024 6:07 PM EDT [facility] MCHC 27.7(L) 31.5 - 35.7 g/dL 11/12/2024 6:07 PM EDT [facility] RDW 19.1(H) 12.3 - 15.4 % 11/12/2024 6:07 PM EDT [facility] RDW-SD 51.8 37.0 - 54.0 fl 11/12/2024 6:07 PM EDT [facility] MPV 9.5 6.0 - 12.0 fL 11/12/2024 6:07 PM EDT [facility] Platelets 240 140 - 450 10*3/mm3 11/12/2024 6:07 PM EDT [facility] Neutrophil % 58.8 42.7 - 76.0 % 11/12/2024 6:07 PM EDT [facility] Lymphocyte % 26.5 19.6 - 45.3 % 11/12/2024 6:07 PM EDT [facility] Monocyte % 7.6 5.0 - 12.0 % 11/12/2024 6:07 PM EDT [facility] Eosinophil % 5.5 0.3 - 6.2 % 11/12/2024 6:07 PM EDT [facility] Basophil % 0.7 0.0 - 1.5 % 11/12/2024 6:07 PM EDT [facility] Immature Grans % 0.9(H) 0.0 - 0.5 % 11/12/2024 6:07 PM EDT [facility] Neutrophils, Absolute 3.43 1.70 - 7.00 10*3/mm3 11/12/2024 6:07 PM EDT [facility] Lymphocytes, Absolute 1.54 0.70 - 3.10 10*3/mm3 11/12/2024 6:07 PM EDT [facility] Monocytes, Absolute 0.44 0.10 - 0.90 10*3/mm3 11/12/2024 6:07 PM EDT [facility] Eosinophils, Absolute 0.32 0.00 - 0.40 10*3/mm3 11/12/2024 6:07 PM EDT [facility] Basophils, Absolute 0.04 0.00 - 0.20 10*3/mm3 11/12/2024 6:07 PM EDT [facility] Immature Grans, Absolute 0.05 0.00 - 0.05 10*3/mm3 11/12/2024 6:07 PM EDT [facility] nRBC 0.0 0.0 - 0.2 /100 WBC 11/12/2024 6:07 PM EDT [facility] Blood Venipuncture / Unknown 11/12/2024 5:17 PM EDT 11/12/2024 5:17 PM EDT Narrative [facility] - 11/12/2024 6:07 PM EDT Appended report. These results have been appended to a previously verified report. Vasu Mckeon MD LAB BLOOD ORDERABLES Fin al Result [facility]
[address] [place] [address], * Light Blue Top (11/12/2024 5:17 PM EDT) Extra Tube Hold for add-ons. 11/12/2024 5:31 PM EDT [facility] Comment:Auto resulted Blood Venipuncture / Unknown 11/12/2024 5:17 PM EDT 11/12/2024 5:17 PM EDT Vasu Mckeon MD LAB BLOOD ORDER ONLY Fin al Result [facility]
[address] [place] [address], * Castellano Top (11/12/2024 5:17 PM EDT) Extra Tube Hold for add-ons. 11/12/2024 5:32 [facility] Comment:Auto resulted. Blood Venipuncture / Unknown 11/12/2024 5:17 PM EDT 11/12/2024 5:17 PM EDT Vasu Mckeon MD LAB BLOOD ORDER ONLY Fin al Result Performing Organization Address City/[facility]/ZIP Co de Phone Number [facility]
[address] [place] [address], [place] [phone] * Gold Top - SST (11/12/2024 5:17 PM EDT) Extra Tube Hold for add-ons. 11/12/2024 5:32 PM EDT [facility] Comment:Auto resulted. Blood Venipuncture / Unknown 11/12/2024 5:17 PM EDT 11/12/2024 5:17 PM EDT Vasu Mckeon MD LAB BLOOD ORDER ONLY Fin al Result Performing Organization Address [facility] Co de Phone Number [facility]
[address] [place] [address], [place] [phone] * Lavender Top (11/12/2024 5:17 PM EDT) Extra Tube hold for add-on 11/12/2024 5:31 PM EDT [facility] Comment:Auto resulted Blood Venipuncture / Unknown 11/12/2024 5:17 PM EDT 11/12/2024 5:17 PM EDT Vasu Mckeon MD LAB BLOOD ORDER ONLY Fin al Result Performing Organization Address City/[facility]/ZIP Co de Phone Number [facility]
[address] [place] [address], [place] [phone] * Green Top (Gel) (11/12/2024 5:17 PM EDT) Extra Tube Hold for add-ons. 11/12/2024 5:31 PM EDT [facility] Comment:Auto resulted. Blood Venipuncture / Unknown 11/12/2024 5:17 PM EDT 11/12/2024 5:17 PM EDT Vasu Mckeon MD LAB BLOOD ORDER ONLY Fin al Result Performing Organization Address City/[facility]/ZIP Co de Phone Number [facility]
[address] [place] [address], * (ABNORMAL) High Sensitivity Troponin T (11/12/2024 5:17 PM EDT) [facility] HS Troponin T 17(H) <14 ng/L 11/12/2024 5:51 PM EDT [facility] Blood Venipuncture / Unknown 11/12/2024 5:17 PM EDT 11/12/2024 5:17 PM EDT Narrative [facility] - 11/12/2024 5:51 PM EDT High [...] ORDERABLES Fin al Result Performing Organization Address City/[facility]/ZIP Co de Phone Number [facility]
[address] [place] [address], * BNP (11/12/2024 5:17 PM EDT) [facility] proBNP 247.0 0.0 - 900.0 pg/mL 11/12/2024 5:51 PM EDT [facility] Blood Venipuncture / Unknown 11/12/2024 5:17 PM EDT 11/12/2024 5:17 PM EDT Narrative [facility] - 11/12/2024 5:51 PM EDT This [...] MD LAB BLOOD ORDERABLES Fin al Result [facility]
[address] [place] [address], * (ABNORMAL) Comprehensive Metabolic Panel (11/12/2024 5:17 PM EDT) Glucose 96 65 - 99 mg/dL 11/12/2024 5:51 PM EDT [facility] BUN 24.7(H) 8.0 - 23.0 mg/dL 11/12/2024 5:51 PM EDT [facility] Creatinine 1.06(H) 0.57 - 1.00 mg/dL 11/12/2024 5:51 PM EDT [facility] Sodium 139 136 - 145 mmol/L 11/12/2024 5:51 PM EDT [facility] Potassium 4.4 3.5 - 5.2 mmol/L 11/12/2024 5:51 PM EDT [facility] Chloride 101 98 - 107 mmol/L 11/12/2024 5:51 PM EDT [facility] CO2 27.9 22.0 - 29.0 mmol/L 11/12/2024 5:51 PM EDT [facility] Calcium 9.1 8.6 - 10.5 mg/dL 11/12/2024 5:51 PM EDT [facility] Total Protein 6.4 6.0 - 8.5 g/dL 11/12/2024 5:51 PM EDT [facility] Albumin 4.0 3.5 - 5.2 g/dL 11/12/2024 5:51 PM EDT [facility] ALT (SGPT) 15 1 - 33 U/L 11/12/2024 5:51 PM EDT [facility] AST (SGOT) 27 1 - 32 U/L 11/12/2024 5:51 PM EDT [facility] Alkaline Phosphatase 113 39 - 117 U/L 11/12/2024 5:51 PM EDT [facility] Total Bilirubin 0.2 0.0 - 1.2 mg/dL 11/12/2024 5:51 PM EDT [facility] Globulin 2.4 gm/dL 11/12/2024 5:51 PM EDT [facility] Comment:Calculated Result A/G Ratio 1.7 g/dL 11/12/2024 5:51 PM T [facility] BUN/Creatinine Ratio 23.3 7.0 - 25.0 11/12/2024 5:51 PM T [facility] Anion Gap 10.1 5.0 - 15.0 mmol/L 11/12/2024 5:51 PM T [facility] eGFR 58.1(L) >60.0 mL/min/1.7 3 11/12/2024 5:51 PM T [facility] Blood Venipuncture / Unknown 11/12/2024 5:17 PM EDT 11/12/2024 5:17 PM EDT [facility] - 11/12/2024 5:51 PM EDT GFR [...] MD LAB BLOOD ORDERABLES Fin al Result [facility]
[address] [place] [address], * ECG 12 Lead Dyspnea (11/12/2024 4:45 PM EDT) QT Interval 404 ms ECG QTC Interval 445 ms ECG 11/12/2024 4:45 PM EDT 11/16/2024 1:16 PM EDT Narrative ECG - 11/16/2024 1:16 PM EDT Test [...] Mckeon MD ECG ORDERABLES Final Re sult ECG documented in this encounter Visit Diagnoses Diagnosis Respiratory failure with hypoxia- Primary Referred by health rn critical care Dyspnea on exertion Other dyspnea and respiratory [...] BPA Driven Protocol Open Order & Select S Electrolyte Replacement Protocol Algorithm to View Details [...] BPA Driven Protocol Open Order & Select [facility] Electrolyte Replacement Protocol Algorithm to View Details [...] As Needed, Line Care, Starting on Chantelle 9/4/25 at 1642 sodium chloride 0.9 % flush [...] drug alert 0902 (Given - Provider: Jill Altamirano, BERNICE) 0808 (Given - Provider: Jill Altamirano, BERNICE) budesonide (PULMICORT) nebulizer solution 0.5 mg 0.5 mg, Nebulization, Daily - RT, First dose on Sat11/13/24 at 0930, Include Respiratory Treatment Education Do not shake. Protect from light. 0940 (Given - Provider: Laine Hernandez, CLARENCE) 0730 (Given - Provider: Luz Maria Neely, CLARENCE)0930 (Canceled Entry - Provider: Luz Maria Neely, COD CLERK) bumetanide (BUMEX) injection 2 mg (COMPLETED) 2 mg, Intravenous, Once, On Chantelle 11/12/24 at 1728, For 1 dose, Hold for SBP less than 100, DBP less than 60. Give slow IV push over 1-2 minutes. 2148 (Given - Provider: Ghanshyam Soni, RN) cefTRIAXone (ROCEPHIN) 2,000 mg in sodium chloride [...] alike/sound alike drug alert, Indications: Uncomplicated Cystitis 0229 (New Bag - Provider: Ghanshyam Soni, RN) cetirizine (zyrTEC) tablet 10 mg 10 mg, Oral, Daily, First dose on Sat11/13/24 at 0900 0902 (Given - Provider: Jill Altamirano, RN) 0807 (Given - Provider: Jill Altamirano, RN) dicyclomine (BENTYL) capsule 10 mg 10 mg, Oral, 4 Times Daily Before Meals & Nightly, First dose on Sat11/13/24 at 0730 0902 (Given - Provider: Jill Altamirano, RN)1133 (Given - Provider: Jill Altamirano, RN)1702 (Given - Provider: Jill Altamirano, RN)2040 (Given - Provider: Merissa Wakefield, BERNICE) 0808 (Given - Provider: Jill Altamirano, RN)1112 (Not Given - Provider: Jill Altamirano, RN - Reason: Patient/family refused) iopamidol (ISOVUE-370) 76 % injection 75 mL (COMPLETED) 75 mL, Intravenous, Once in Imaging, On Chantelle 25 at 1952, For 1 dose 1946 (Given - Provider: Devon Rebolledo) ipratropium-albuterol (DUO-NEB) nebulizer solution 3 mL (COMPLETED) 3 mL, Nebulization, Once, On Sat11/12/24 at 1728, For 1 dose, Include Respiratory Treatment Education 2252 (Given - Provider: Narciso Melton, COD CLERK) ipratropium-albuterol (DUO-NEB) nebulizer solution 3 mL 3 mL, Nebulization, 4 Times Daily - RT, First dose on Sat11/13/24 at 0830, Include Respiratory Treatment Education 0940 (Given - Provider: Laine Hernandez COD CLERK)1334 (Given - Provider: Laine Hernandez COD CLERK)1651 (Given - Provider: Laine Hernandez COD CLERK)2019 (Given - Provider: Eusebio Jade, PRECISION LENS GENERATOR) 0729 (Given - Provider: Luz Maria Neely, COD CLERK)0733 (Canceled Entry - Provider: Luz Maria Neely RRT)1335 (Given - Provider: Luz Maria Neely, COD CLERK)1608 (Not Given - Provider: Luz Maria Neely RRT - Reason: Patient/family refused - Comment: Pt being D/C's waiting on transport) montelukast (SINGULAIR) tablet 10 mg 10 mg, Oral, Daily, First dose on Sat11/13/24 at 0900 0903 (Given - Provider: Jill Altamirano, BERNICE) 0809 (Given - Provider: Jill Altamirano, RN) pantoprazole (PROTONIX) EC tablet 40 mg 40 mg, Oral, 2 Times Daily Before Meals, First dose on Sat11/13/24 at 0730, Swallow whole; do not crush, split, or chew. 0903 (Given - Provider: Jill Altamirano, RN)1702 (Given - Provider: Jill Altamirano, RN) 0808 (Given - Provider: Jill Altamirano, [...] Wakefield RN) 0808 (Given - Provider: Jill Altamirano RN) rivaroxaban (XARELTO) tablet 15 mg 15 mg, Oral, Daily With Dinner, First dose on Sat11/13/24 at 1800, If giving by tube: suspend in 50mL water, administer, and immediately follow with enteral feeding. Administer doses 15mg or greater with food; doses of 2.5mg and 10mg may be administered without regard to meals., Indications: Atrial Fibrillation - requiring full anticoagulation 170 (Given - Provider: Jill Altamirano RN) sennosides-docusate (PERICOLACE) 8.6-50 MG per tablet 2 tablet(Linked Group 1) 2 tablet, Oral, 2 Times Daily, First dose on Sat11/13/24 at 0900, HOLD MEDICATION IF PATIENT HAS HAD BOWEL MOVEMENT. Start bowel management regimen if patient has not had a bowel movement after 12 hours. 09 (Given - Provider: Jill Altamirano RN)2040 (Given - Provider: Merissa Wakefield RN) 0808 (Given - Provider: Jill Altamirano RN) sodium chloride 0.9 % flush 10 mL 10 mL, Intravenous, Every 12 Hours Scheduled, First dose on Sat11/13/24 at 0900 0903 (Given - Provider: Jill Altamirano RN)2130 (Canceled Entry - Provider: Merissa Wakefield RN) 0810 (Given - Provider: Jill Altamirano, RN) spironolactone (ALDACTONE) tablet 25 mg 25 mg, Oral, Daily, First dose on Sat11/13/24 at 0900, Hold for SBP less than 100, DBP less than 60. Group 1 (Yellow) Hazardous Drug - See Handling Guide 0902 (Given - Provider: Jill Altamirano RN) 0808 (Given - Provider: Jill Altamirano, BERNICE) Sulfur Hexafluoride Microsph (LUMASON) 60.7-25 MG IV reconstituted suspension reconstituted suspension 2 mL (COMPLETED) 2 mL, Intravenous, Once in Imaging, On Sat11/14/24 at 1230, For 1 dose 1133 (Given - Provider: Shady Palmer, [facility]) venlafaxine XR (EFFEXOR-XR) 24 hr capsule 150 mg 150 mg, Oral, 2 Times Daily, First dose on Sat11/13/24 at 0900, Do not crush or chew the capsules or tablets. The drug may not work as designed if the capsule or tablet is crushed or chewed. Swallow whole. 901 (Given - Provider: Jill Altamirano, RN)2039 (Given - Provider: Merissa Wakefield RN) 808 (Given - Provider: Jill Altamirano, [...] RN)0917 (Not Given - Provider: Jill Altamirano, RN - Reason: Contraindicated)1133 (Given - Provider: Jill Altamirano RN)2044 (Given - Provider: Merissa Wakefield, BERNICE) 0624 (Given - Provider: Merissa Wakefield, BERNICE) ipratropium-albuterol (DUO-NEB) nebulizer solution 3 mL 3 mL, Nebulization, Every 4 Hours PRN, Wheezing, Shortness of Air, Starting on Sat11/13/24 at 0246 Magnesium Standard Dose Replacement - Follow Nurse / BPA Driven Protocol Open Order & Select [facility] Electrolyte Replacement Protocol Algorithm to View Details [...] BPA Driven Protocol Open Order & Select [facility] Electrolyte Replacement Protocol Algorithm to View Details [...] diarrhea documented in this encounter 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
--- OUTSIDE RECORDS SUMMARY | 2024-11-26 11:00 | XMS_ITS | Encounter Summary ---
Author Organization [facility] ystem Address [address] [place] [address] Care Team Providers Care Customer Orders Clerk Name Role Phone Sandra Orozco APRN Primary Care Provider Reason for Visit * Reason Comments Shortness of Breath Encounter Details Date Type Department Care Team (Latest Contact Info) Description 11/26/2024 11:00 AM EDT Office Visit [facility] C[facility]IOLOGY [address] [facility] [address], [place] [address] Dina Solano APRN [address] [facility] [address] [place] [address] Paroxysmal atrial fibrillation (Primary Dx); History of [...] = 0.6 oz pur e alcohol) former [facility] Utilities Answer Date Recorded In the past 12 months has [employer] electric, gas, oil, or water company threatened [...] care, and heating? Not very hard 11/13/2024 [facility] of Occupat ional Health - Occupational Stress [...] GED or equivalent No 11/13/2024 Preferred Language Argentine 11/13/2024 PHQ-2 Answer Date Recorded Patient Health [...] 11:00 AM EDTAssociated Problem(s): Paroxysmal atrial fibrillation [id number] Continue Xarelto 15 mg p.o. daily Continue [...] Sandra Orozco APRN Date: 11/26/2024 Department: Minh [facility] CARDIOLOGY [address] [facility] [address] [facility] [phone] Chief Complaint: Chief Complaint Patient presents with Shortness of Breath Problem list: Paroxysmal atrial fibrillation/History of ischemic CVA/TIAs status post loop explant [id number] 5 (Female, Age, CVA, PAD) PAF noted [...] to admission. She continues to see her developer trading systems and has a follow-up appointment scheduled. She [...] Plan Assessment & Plan Paroxysmal atrial fibrillation [id number] Continue Xarelto 15 mg p.o. daily Continue [...] 3 months (around 02/25/2025). Patient or patient insurance account representative verbalized consent for the use of Ambient Listening during the visit with Dina Solano APRN for chart documentation. 11/26/2024 10:42 EDT Dina Solano APRN [facility] Cardiology documented in this encounter Plan of Treatment Upcoming Encounters Date Type Department Care Team (Late st Contact Info) Description 02/16/2025 11:00 AM EST Office Visit [facility] CARDIOLOGY [address] [facility] [address] [place] [address] Dina Solano APRN [address] [facility] [address] [place] [address] Scheduled Orders Name Type Priority Associated Diagnoses [...] APRN LAB BLOOD ORDERABLES Final Re sult [facility]
[address] [place] [address], documented in this encounter Visit Diagnoses Diagnosis Paroxysmal atrial fibrillation- Primary Atrial fibrillation History of CVA (cerebrovascular accident) Transient ischemic attack (TIA), and cerebral infarction without residual deficits Chronic respiratory failure with hypoxia Hyperlipidemia LDL goal <55 Prediabetes Other abnormal glucose Anemia, unspecified type Chronic venous insufficiency of lower extremity Chronic obstructive pulmonary disease, unspecified COPD type documented in this encounter Care Teams Customer Orders Clerk Relationship Specialty Start Date End Date Sandra Orozco APRN [address] [address] PCP - General Internal Medicine 05/11/24 documented as of this encounter
--- OUTSIDE RECORDS SUMMARY | 2024-12-23 10:10 | XMS_ITS | Encounter Summary ---
Author Organization [facility] Address [address] [place] [address] Care Team Providers Care Campaign Director Name Role Phone Sandra Orozco APRN Primary Care Provider Encounter Details Date Type Department Care Team (Late st Contact Info) Description 11/30/2024 Readmission Management [facility] NURSE CALL CENTER [address] [place] [address] Christiano Gresham, RN Social History Tobacco Use Types Packs/Day Years Used Date Smoking Tobacco: Former Cigarettes 2 45 Q uit: 05/10/2023 Smokeless Tobacco: Never Comments:Liked to smoke Alcohol Use Standard Drinks/Week Comments Not Currently 0 (1 standard drink = 0.6 oz pur e alcohol) former [facility] Utilities Answer Date Recorded In the past 12 months has [employer], gas, oil, or water [employer] threatened to shut off services in your [...] care, and heating? Not very hard 11/13/2024 [facility] - Occupational Stress Questionnaire Answer Date [...] CHF Week 1 Survey Flowsheet Row [facility] the patient have one of the following disease processes/diagnoses(primary or secondary)? CHF CHF Week 1 attempt successful? No Unsuccessful attempts Attempt 2 Christiano Romero - Registered Nurse documented in this encounter Plan of Treatment Upcoming Encounters Date Type Department Care Team (Late st Contact Info) Description 02/16/2025 11:00 AM EST Office [facility] CARDIOLOGY [address] [facility] [address] [place] [address] Dina Solano APRN [address] [facility] [address] [place] [address] documented as of this encounter Visit Diagnoses Not on filedocumented in this encounter Care Teams Campaign Director Relationship Specialty Start Date End Date Sandra Orozco APRN [address] [address] PCP - General Internal Medicine 05/11/24 documented as of this encounter
--- OUTSIDE RECORDS SUMMARY | 2024-12-23 10:10 | XMS_ITS | Encounter Summary ---
Author Organization [facility] Address [address] [place] [address] Care Team Providers Care Mold Forms Builder Name Role Phone Sandra Orozco APRN Primary Care Provider [phone] Encounter Details Date Type Department Care Team (Latest Contact Info) Description 11/26/2024 Travel Social History Tobacco Use Types Packs/Day Years Used Date Smoking Tobacco: Former Cigarettes 2 45 Q uit: 05/10/2023 Smokeless Tobacco: Never Comments:Liked to smoke Alcohol Use Standard Drinks/Week Comments Not Currently 0 (1 standard drink = 0.6 oz pur e alcohol) former [facility] Utilities Answer Date Recorded In the past 12 months has [employer], gas, oil, or water company threatened [...] care, and heating? Not very hard 11/13/2024 [facility] [place] of Occupat ional Health - Occupational Stress [...] GED or equivalent No 11/13/2024 Preferred Language Bahamian 11/13/2024 PHQ-2 Answer Date Recorded Patient Health [...] Description 02/16/2025 11:00 AM EST Office Visit [facility] CARDIOLOGY [address] [facility] [address] [address] Dina Solano APRN [address] [facility] [address], [place] [address] documented as of this encounter Visit Diagnoses Not on filedocumented in this encounter Care Teams Mold Forms Builder Relationship Specialty Start Date End Date Sandra Orozco APRN [address] [place] [address] [address] PCP - General Internal Medicine 05/11/24 documented as of this encounter
--- OUTSIDE RECORDS SUMMARY | 2024-12-23 10:11 | XMS_ITS | Clinical Summary ---
[facility] Address [address] [place] [address] Care Team Providers Care Therapeutic Assistant Name Role Phone Sandra Orozco APRN Primary [...] all over Nortriptyline Swelling Low 04/15/2024 Poison Madison Extract Hives,Itching,Swell ing,Rash Low 04/15/2024 Poison oak/poison [...] Take 1 tablet by mouth Daily. Active dexlansoprazol e (Dexilant) 60 MG capsule Take 1 capsule [...] XR (EFFEXOR-XR) 150 MG 24 hr capsule Active Xarelto 15 MG tablet Take 1 tablet by mouth Daily With Dinner. 90 tablet 3 08/29/19 25 Active triamcinolone (KENALOG) 0.1 % cream Apply 1 Application topically to the appropriate area as directed 2 (Two) Times a Day. Active PHARMACY MEDS TO BED CONSULT Use Daily. 11/15/19 25 Active HYDROcodone-ac etaminophen (NORCO) 5-325 MG per tablet Take 1 tablet by mouth Every 4 (Four) Hours As Needed. 07/07/19 25 Active HYDROcodone-ac etaminophen (NORCO) 10-325 MG per tablet Take 1 tablet by mouth Every 4 (Four) Hours As Needed. 025 Discontinue d(Patient Reported Not Taking) Active Problems Problem Noted Date Diagnosed Date [...] of breath and lower extremity edema. 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 daily Continue [...] Assessment & Plan (07/16/2024 12:10 PM EDT): [id number] Continue Xarelto 15 mg p.o. daily, [...] Department Care Team Description 11/30/2024 Readmission Management [facility] [address] [place] [address] Christiano Gresham RN 11/26/2024 11:00 AM EDT Office Visit [facility] [address] [facility] [address] [place] [phone] Dina Solano APRN Paroxysmal atrial fibrillation (Primary Dx); History of CVA (cerebrovascular accident); Chronic respiratory failure with hypoxia; Hyperlipidemia LDL goal <55; Prediabetes; Anemia, unspecified type; Chronic venous insufficiency of lower extremity; Chronic obstructive pulmonary disease, unspecified COPD type 11/26/2024 Travel 11/23/2024 Readmission Management [facility] [address] [place] [address] Kaykay Farrar RN 11/16/2024 Readmission Management [facility] [address] [place] [address] Omaira Knapp RN 11/12/2024 9:36 PM EDT - 11/14/2024 4:38 PM EDT Hospital Encounter [address] [place] [address] Logan Araujo MD Butler, Jennifer, MD Barbato, Hayley R, DO West, Christopher R, MD Referred by health director career services (Primary Dx); Dyspnea on exertion; Chronic respiratory failure with hypoxia, on home O2 therapy; SMOOTH (obstructive sleep apnea); Elevated troponin; Moderate aortic valve regurgitation Discharge Disposition: Home or Self Care 11/12/2024 12:30 PM EDT Office Visit [facility] [address] [facility] [address] [place] [address] 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, 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, 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 Shortness of breath (Primary Dx); Generalized edema; Chronic respiratory failure with hypoxia; Paroxysmal atrial fibrillation; History of CVA (cerebrovascular accident); Moderate aortic valve regurgitation; Peripheral arterial disease 11/12/2024 Patient [place] [place] [facility] [address] [facility] [address] [place] [address] Dina Solano APRN 11/12/2024 Travel 11/10/2024 Telephone [facility] [address] [facility] [address] [place] [address] Christy Kirk MD from Last 3 Months Family History Medical History Relation Name Comments Hyperlipidemia Father Stanislaw Hypertension Father Stanislaw Anemia Mother Kera Shukla Arrhythmia Mother Kera Shukla Anemia Asthma Mother Kera Shukla Coronary artery disease Mother Kera Shukla Heart attack Mother Kera Shukla 2 different typ es of cancer. Heart stints, Heart disease Mother Kera Shukla Heart failure Mother Kera Shukla Relation Name Status Comments Father Stanislaw Mother Kera Shukla Social History Tobacco Use Types Packs/Day Years Used Date Smoking Tobacco: Former Cigarettes 2 45 Q uit: 05/10/2023 Smokeless Tobacco: Never Comments:Liked to smoke Alcohol Use Standard Drinks/Week Comments Not Currently 0 (1 standard drink = 0.6 oz pur e alcohol) former [facility] Utilities Answer Date Recorded In the past 12 months has e electric, gas, oil, or water [employer] threatened to shut off services in your [...] care, and heating? Not very hard 11/13/2024 [facility] [place] [facility] - Occupational Stress [...] GED or equivalent No 11/13/2024 Preferred Language Tajik 11/13/2024 PHQ-2 Answer Date Recorded Patient Health [...] Description 02/16/2025 11:00 AM EST Office Visit [facility] [address] [facility] [address] [place] [id number] Dina Solano APRN [address] [facility] [address] [place] [address] Health Maintenance Due Date Last Done Comments [...] 02/22/2023 COVID-19 Vaccine ( season) 11/09/202402/2021, 06/16/2020 LUNG CANCER SCREENING 11/12/2025 11/12/2024 LIPID PANEL 12/01/2025 12/01/2024, 07/06/2024 TDAP/TD VACCINES (4 - Td or Tdap) 11/09/2027 11/08/2017, 06/22/2009, 08/29/2001 ZOSTER VACCINE Completed 04/28/2024, 12/27/2023 Procedures Procedure Name Priority Date/Time Associated Diagnosis Comments LIPID PANEL Routine 12/01/2024 Hyperlipidemia LDL goal <55 ECHO COMPLETE W/ DOPPLER AND COLOR FLOW [...] EDT RESPIRATORY PANEL PCR W/ COVID-19 (SARS-COV-2), DISPLAY DESIGNER SWAB IN UTM/VTP, 2 HR TAT Routine 11/13/2024 3:26 AM EDT BLOOD GAS, VENOUS W/CO-OXIMETRY STAT 11/12/2024 11:[address] ANGIOGRAM CHEST PULMONARY EMBOLISM STAT 11/12/2024 7:46 PM EDT COVID-19/FLUA&B/RSV, DISPLAY DESIGNER SWAB IN TRANSPORT MEDIA 1 HR TAT [...] ECG 12-LEAD STAT 11/12/2024 4:45 PM EDT MAMMO SCREENING DIGITAL TOMOSYNTHESIS BILATERAL W CAD Routine 04/06/2015 9:03 AM EST from Last 3 Months or Most Recently Relevant to Health Maintenance Results * Lipid Panel (12/01/2024) Blood Dina Solano APRN LAB BLOOD ORDERABLES Final Re sult [facility]
[address] [place] [address], * ECHO COMPLETE W/ DOPPLER AND COLOR [...] - 10.80 10*3/mm3 11/13/2024 12:36 PM EDT [facility] RBC 3.89 3.77 - 5.28 10*6/mm3 11/13/2024 12:36 PM EDT [facility] Hemoglobin 8.1(L) 12.0 - 15.9 g/dL 11/13/2024 12:36 PM EDT [facility] Hematocrit 29.1(L) 34.0 - 46.6 % 11/13/2024 12:36 PM EDT [facility] MCV 74.8(L) 79.0 - 97.0 fL 11/13/2024 12:36 PM EDT [facility] MCH 20.8(L) 26.6 - 33.0 pg 11/13/2024 12:36 PM EDT [facility] MCHC 27.8(L) 31.5 - 35.7 g/dL 11/13/2024 12:36 PM EDT [facility] RDW 19.0(H) 12.3 - 15.4 % 11/13/2024 12:36 PM EDT [facility] RDW-SD 51.3 37.0 - 54.0 fl 11/13/2024 12:36 PM EDT [facility] MPV 9.8 6.0 - 12.0 fL 11/13/2024 12:36 PM EDT [facility] Platelets 227 140 - 450 10*3/mm3 11/13/2024 12:36 PM EDT [facility] Neutrophil % 63.6 42.7 - 76.0 % 11/13/2024 12:36 PM EDT [facility] Lymphocyte % 23.3 19.6 - 45.3 % 11/13/2024 12:36 PM EDT [facility] Monocyte % 8.9 5.0 - 12.0 % 11/13/2024 12:36 PM EDT [facility] Eosinophil % 2.8 0.3 - 6.2 % 11/13/2024 12:36 PM EDT [facility] Basophil % 0.7 0.0 - 1.5 % 11/13/2024 12:36 PM EDT [facility] Immature Grans % 0.7(H) 0.0 - 0.5 % 11/13/2024 12:36 PM EDT [facility] Neutrophils, Absolute 3.44 1.70 - 7.00 10*3/mm3 11/13/2024 12:36 PM EDT [facility] Lymphocytes, Absolute 1.26 0.70 - 3.10 10*3/mm3 11/13/2024 12:36 PM EDT [facility] Monocytes, Absolute 0.48 0.10 - 0.90 10*3/mm3 11/13/2024 12:36 PM EDT [facility] Eosinophils, Absolute 0.15 0.00 - 0.40 10*3/mm3 11/13/2024 12:36 PM EDT [facility] Basophils, Absolute 0.04 0.00 - 0.20 10*3/mm3 11/13/2024 12:36 PM EDT [facility] Immature Grans, Absolute 0.04 0.00 - 0.05 10*3/mm3 11/13/2024 12:36 PM EDT [facility] nRBC 0.0 0.0 - 0.2 /100 WBC 11/13/2024 12:36 PM EDT [facility] Blood Venipuncture / Unknown 11/13/2024 12:07 PM EDT 11/13/2024 12:26 PM EDT Aaliyah Jha APRN LAB BLOOD ORDERABLES Final Re sult Performing Organization Address City/[facility] [address]/ZIP Co de Phone Number [facility]
[address] [place] [address], * (ABNORMAL) Reticulocytes (11/13/2024 12:07 PM EDT) Reticulocyte % 2.78(H) 0.70 - 1.90 % 11/13/2024 12:32 PM EDT [facility] Reticulocyte Absolute 0.1081 0.0200 - 0.1300 10*6/mm3 11/13/2024 12:32 PM EDT [facility] Blood Venipuncture / Unknown 11/13/2024 12:07 PM EDT 11/13/2024 12:26 PM EDT Aaliyah Jha APRN LAB BLOOD ORDERABLES Final Re sult Performing Organization Address [facility] [address]/[facility] Co de Phone Number [facility]
[address] [place] [address], * TSH (11/13/2024 12:07 PM EDT) TSH 2.770 0.270 - 4.200 uIU/mL 11/13/2024 12:56 PM EDT [facility] Blood Venipuncture / Unknown 11/13/2024 12:07 PM EDT 11/13/2024 12:26 PM EDT Aaliyah Jha APRN LAB BLOOD ORDERABLES Final Re sult Performing Organization Address City/[facility] [address]/ZIP Co de Phone Number [facility]
[address] [place] [address], * Magnesium (11/13/2024 12:07 PM EDT) Only the most recent of2 resultswithin the time period is included. Pathologist [facility] Magnesium 1.9 1.6 - 2.4 mg/dL 11/13/2024 12:56 PM EDT [facility] Blood Venipuncture / Unknown 11/13/2024 12:07 PM EDT 11/13/2024 12:26 PM EDT Aaliyah Jha APRN LAB BLOOD ORDERABLES Final Re sult [facility]
[address] [place] [address], * (ABNORMAL) Hemoglobin A1c (11/13/2024 12:07 PM EDT) [facility] Hemoglobin A1C 5.84(H) 4.80 - 5.60 % 11/13/2024 1:23 PM EDT [facility] Blood Venipuncture / Unknown 11/13/2024 12:07 PM EDT 11/13/2024 12:26 PM EDT Narrative [facility] - 11/13/2024 1:23 PM EDT Hemoglobin A1C Ranges: Increased Risk for Diabetes 5.7% to 6.4% Diabetes >= 6.5% Diabetic Goal < 7.0% Aaliyah Jha APRN LAB BLOOD ORDERABLES Final Re sult [facility]
[address] [place] [address], * Folate RBC (11/13/2024 12:07 PM EDT) Pathologist [facility] Folate, Hemolysate 538.0 Not Estab. ng/mL 11/16/2024 9:09 AM EDT [facility] Hematocrit 40.7 34.0 - 46.6 % 11/16/2024 9:09 AM EDT [facility] RBC Folate 1322 >498 ng/mL 11/16/2024 9:09 AM EDT [facility] Blood Venipuncture / Unknown 11/13/2024 12:07 PM EDT 11/13/2024 12:26 PM EDT Narrative [facility] - 11/16/2024 9:09 AM EDT Performed at: 01 - [address] [id number] Backing In Machine Tender: Gomez Crooks PhD, Phone: [phone] us Aaliyah Jha APRN LAB BLOOD ORDERABLES Edited R esult - Final [facility] [address] [place] [id number], * (ABNORMAL) Basic Metabolic Panel (11/13/2024 12:07 PM EDT) Glucose 100(H) 65 - 99 mg/dL 11/13/2024 12:56 PM EDT [facility] BUN 19.7 8.0 - 23.0 mg/dL 11/13/2024 12:56 PM EDT [facility] Creatinine 0.93 0.57 - 1.00 mg/dL 11/13/2024 12:56 PM EDT [facility] Sodium 143 136 - 145 mmol/L 11/13/2024 12:56 PM EDT [facility] Potassium 3.8 3.5 - 5.2 mmol/L 11/13/2024 12:56 PM EDT [facility] Chloride 102 98 - 107 mmol/L 11/13/2024 12:56 PM EDT [facility] CO2 31.1(H) 22.0 - 29.0 mmol/L 11/13/2024 12:56 PM EDT [facility] Calcium 8.6 8.6 - 10.5 mg/dL 11/13/2024 12:56 PM EDT [facility] BUN/Creatinine Ratio 21.2 7.0 - 25.0 11/13/2024 12:56 PM EDT [facility] Anion Gap 9.9 5.0 - 15.0 mmol/L 11/13/2024 12:56 PM EDT [facility] eGFR 67.9 >60.0 mL/min/1.7 3 11/13/2024 12:56 PM EDT [facility] Blood Venipuncture / Unknown 11/13/2024 12:07 PM EDT 11/13/2024 12:26 PM EDT Narrative [facility] - 11/13/2024 12:56 PM [...] APRN LAB BLOOD ORDERABLES Final Re sult [facility]
[address] [place] [address], * Duplex Venous Lower Extremity - Bilateral [...] resultswithin the time period is included. Pathologist [facility] QT Interval 410 ms ECG QTC [...] change was found Confirmed by ABDULLAHI HENDRICKSON ([id number]) on 11/13/2024 7:39:07 PM Referred By: Confirmed [...] change was found Confirmed by ABDULLAHI HENDRICKSON ([id number]) on 11/13/2024 7:39:07 PM Referred By: Confirmed By: ABDULLAHI HENDRICKSON Aaliyah Jha APRN ECG ORDERABLES Final Result [facility] ECG * Respiratory Panel PCR w/COVID-19(SARS-CoV-2) SIDRA/CHECO/SAUD/PAD/COR/ERIC In-House, DISPLAY DESIGNER Swab in UTM/VTM, 2 HR TAT - Swab, Nasopharynx (11/13/2024 3:26 AM EDT) ADENOVIRUS, PCR Not Detected Not Detected [facility] 11/13/2024 4:48 AM EDT [facility] Coronavirus 229E Not Detected Not Detected [facility] 11/13/2024 4:48 AM EDT [facility] Coronavirus HKU1 Not Detected Not Detected [facility] 11/13/2024 4:48 AM EDT [facility] Coronavirus NL63 Not Detected Not Detected [facility] 11/13/2024 4:48 AM EDT [facility] Coronavirus OC43 Not Detected Not Detected [facility] 11/13/2024 4:48 AM EDT [facility] COVID19 Not Detected Not Detected - Ref. Range [facility] 11/13/2024 4:48 AM EDT [facility] Human Metapneumovirus Not Detected Not Detected [facility] 11/13/2024 4:48 AM EDT [facility] Human Rhinovirus/Enterov irus Not Detected Not Detected [facility] 11/13/2024 4:48 AM EDT [facility] Influenza A PCR Not Detected Not Detected [facility] 11/13/2024 4:48 AM EDT [facility] Influenza B PCR Not Detected Not Detected [facility] 11/13/2024 4:48 AM EDT [facility] Parainfluenza Virus 1 Not Detected Not Detected [facility] 11/13/2024 4:48 AM EDT [facility] Parainfluenza Virus 2 Not Detected Not Detected [facility] 11/13/2024 4:48 AM EDT [facility] Parainfluenza Virus 3 Not Detected Not Detected [facility] 11/13/2024 4:48 AM EDT [facility] Parainfluenza Virus 4 Not Detected Not Detected [facility] 11/13/2024 4:48 AM EDT [facility] RSV, PCR Not Detected Not Detected [facility] 11/13/2024 4:48 AM EDT [facility] Bordetella pertussis pcr Not Detected Not Detected [facility] 11/13/2024 4:48 AM EDT [facility] Bordetella parapertussis PCR Not Detected Not Detected [facility] 11/13/2024 4:48 AM EDT [facility] Chlamydophila pneumoniae PCR Not Detected Not Detected [facility] 11/13/2024 4:48 AM EDT [facility] Mycoplasma pneumo by PCR Not Detected Not Detected [facility] 11/13/2024 4:48 AM EDT [facility] Swab Nasopharyngeal structure / Unknown Collection / Unknown 11/13/2024 3:26 AM EDT 11/13/2024 4:00 AM EDT [facility] - 11/13/2024 4:48 AM EDT [...] MICROBIOLOGY - GENERAL ORDERA BLES Final Result [facility]
[address] [place] [address], * (ABNORMAL) Blood Gas, Venous With Co-Ox (11/12/2024 11:16 PM EDT) Site Nurse/Dr Draw 11/12/2024 11:17 PM EDT [facility] pH, Venous 7.337 7.310 - 7.410 pH Units 11/12/2024 11:17 PM EDT [facility] pCO2, Venous 59.6(H) 41.0 - 51.0 mm Hg 11/12/2024 11:17 PM EDT [facility] Comment:83 Value above refer ence range pO2, Venous 30.4 27.0 - 53.0 mm Hg 11/12/2024 11:17 PM EDT [facility] HCO3, Venous 31.9(H) 22.0 - 28.0 mmol/L 11/12/2024 11:17 PM EDT [facility] Base Excess, Venous 5.0(H) -2.0 - 2.0 mmol/L 11/12/2024 11:17 PM EDT [facility] Hemoglobin, Blood Gas 9.3(L) 14 - 18 g/dL 11/12/2024 11:17 PM EDT [facility] Oxyhemoglobin Venous 48.3 % 06/2024 11:17 PM EDT [facility] Methemoglobin Venous 0.4 % 06/2024 11:17 PM EDT [facility] Carboxyhemoglobin Venous 1.7 % 11/12/2024 11:17 PM EDT [facility] CO2 Content 33.7(H) 22 - 33 mmol/L 11/12/2024 11:17 PM EDT [facility] Temperature 37.0 11/12/2024 11:17 PM EDT [facility] Barometric Pressure for Blood Gas 11/12/2024 11:17 PM EDT [facility] Comment:N/A Modality Nasal Cannula 11/12/2024 11:17 PM EDT [facility] FIO2 28 % 11/12/2024 11:17 PM EDT [facility] Rate 0 Breaths/ minute 11/12/2024 11:17 PM EDT [facility] PIP 0 cmH2O 11/12/2024 11:17 PM EDT [facility] Comment:Meter: [id number] Geological E Logger: [id number] IPAP 0 11/12/2024 11:17 PM EDT [facility] EPAP 0 11/12/2024 11:17 PM EDT [facility] Venous Blood 11/12/2024 11:1 6 PM EDT 11/12/2024 11:16 PM EDT us Logan Araujo MD LAB BLOOD ORDERABLES Fin al Result [facility]
[address] [place] [address], * CT Angiogram Chest Pulmonary Embolism (11/12/2024 7:46 PM EDT) Anatomical Region Laterality Modality Chest N/A Computed Tomogra phy 11/12/2024 8:22 PM EDT Impressions 11/12/2024 8:31 PM EDT No evidence of pulmonary embolus. No acute abnormality. Electronically Signed: Jed Machuca MD 11/12/2024 8:31 PM EDT Workstation ID: [id number] Hermann 11/12/2024 8:[address] ANGIOGRAM [...] MD 11/12/2024 8:31 PM EDT Workstation ID: [id number] Logan Araujo MD IMG CT ORDERABLES Final Result * COVID-19, FLU A/B, RSV PCR 1 HR TAT - Swab, Nasopharynx (11/12/2024 7:21 PM EDT) Pathologist [facility] COVID19 Not Detected Not Detected - Ref. Range CEPHEID GENEXPERT 11/12/2024 8:24 PM EDT [facility] Influenza A PCR Not Detected Not Detected CEPHEID GENEXPERT 11/12/2024 8:24 PM EDT [facility] Influenza B PCR Not Detected Not Detected CEPHEID GENEXPERT 11/12/2024 8:24 PM EDT [facility] RSV, PCR Not Detected Not Detected CEPHEID GENEXPERT 11/12/2024 8:24 PM EDT [facility] Swab Nasopharyngeal structure / Unknown Collection / Unknown 11/12/2024 7:21 PM EDT 11/12/2024 7:46 PM EDT Logan Araujo MD MICROBIOLOGY - GENERAL O RDERABLES Final Result [facility]
[address] [place] [address], [place] [phone] * (ABNORMAL) Urinalysis, Microscopic Only - Urine, Clean Catch (11/12/2024 7:20 PM EDT) Pathologist [facility] RBC, UA 0-2 None Seen, 0-2 /HPF 11/12/2024 8:00 PM EDT [facility] WBC, UA 11-20(A) None Seen, 0-2 /HPF 11/12/2024 8:00 PM EDT [facility] Bacteria, UA None Seen None Seen /HPF 11/12/2024 8:00 PM EDT [facility] Squamous Epithelial Cells, UA 3-6(A) None Seen, 0-2 /HPF 11/12/2024 8:00 PM EDT [facility] Hyaline Casts, UA 0-2 None Seen /LPF 11/12/2024 8:00 PM EDT [facility] Methodology Automated Microscopy 11/12/2024 8:00 PM EDT [facility] Urine Urine specimen obtained by clean catch procedure / Unknown Collection / Unknown 11/12/2024 7:20 PM EDT 11/12/2024 7:46 PM EDT Logan Araujo MD URINE ORDERABLES Final R esult [facility]
[place] [address], * (ABNORMAL) Urinalysis With Microscopic If Indicated (No Culture) - Urine, Clean Catch (11/12/2024 7:20 PM EDT) Color, UA Yellow Yellow, Straw 11/12/2024 8:00 PM EDT [facility] Appearance, UA Clear Clear 11/12/2024 8:00 PM EDT [facility] pH, UA 5.5 5.0 - 8.0 11/12/2024 8:00 PM EDT [facility] Specific [place], UA >1.030(H) 1.005 - 1.030 11/12/2024 8:00 PM EDT [facility] Glucose, UA Negative Negative 11/12/2024 8:00 PM EDT [facility] Ketones, UA Negative Negative 11/12/2024 8:00 PM EDT [facility] Bilirubin, UA Negative Negative 11/12/2024 8:00 PM EDT [facility] Blood, UA Negative Negative 11/12/2024 8:00 PM EDT [facility] Protein, UA Trace(A) Negative 11/12/2024 8:00 PM EDT [facility] Leuk Esterase, UA Small (1+)(A) Negative 11/12/2024 8:00 PM EDT [facility] Nitrite, UA Negative Negative 11/12/2024 8:00 PM EDT [facility] Urobilinogen, UA 1.0 E.U./dL 0.2 - 1.0 E.U./dL 11/12/2024 8:00 PM EDT [facility] Urine Urine specimen obtained by clean catch procedure / Unknown Collection / Unknown 11/12/2024 7:20 PM EDT 11/12/2024 7:46 PM EDT Logan Araujo MD URINE ORDERABLES Final R esult Performing Organization Address City/[facility] [address]/ZIP Co de Phone Number [facility]
[address] [place] [address], * Sodium, Urine, Random - Urine, Clean Catch (11/12/2024 7:20 PM EDT) Sodium, Urine <20 mmol/L 11/13/2024 3:37 AM EDT [facility] Urine Urine specimen obtained by clean catch procedure / Unknown Collection / Unknown 11/12/2024 7:20 PM EDT 11/12/2024 7:46 PM EDT Narrative [facility] - 11/13/2024 3:37 AM EDT Reference intervals for random urine have not been established. Clinical usage is dependent upon physician's interpretation in combination with other laboratory tests. Aaliyah Jha APRN URINE ORDERABLES Final Result Performing Organization Address [facility] [address]/[facility] Co de Phone Number [facility]
[address] [place] [address], * Osmolality, Urine - Urine, Clean Catch (11/12/2024 7:20 PM EDT) Osmolality, Urine 837 300 - 1,100 mOsm/kg 11/13/2024 4:00 AM EDT [facility] Urine Urine specimen obtained by clean catch procedure / Unknown Collection / Unknown 11/12/2024 7:20 PM EDT 11/12/2024 7:46 PM EDT Aaliyah Jha APRN URINE ORDERABLES Final Result [facility]
[address] [place] [address], [place] [phone] * Creatinine Urine Random (kidney function) GFR component - Urine, Clean Catch (11/12/2024 7:20 PM EDT) Creatinine, Urine 276.6 mg/dL 11/13/2024 9:46 AM EDT [facility] Urine Urine specimen obtained by clean catch procedure / Unknown Collection / Unknown 11/12/2024 7:20 PM EDT 11/13/2024 3:13 AM EDT Narrative [facility] - 11/13/2024 9:46 AM EDT Reference intervals for random urine have not been established. Clinical usage is dependent upon physician's interpretation in combination with other laboratory tests. us Aaliyah Jha APRN URINE ORDERABLES Final Result [facility]
[address] [place] [address], [place] [phone] * Urine Culture - Urine, Urine, Clean Catch (11/12/2024 7:20 PM EDT) Urine Culture No growth YUMIKO 11/14/2024 12:26 PM EDT [facility] Urine Urine specimen obtained by clean catch procedure / Unknown Collection / Unknown 11/12/2024 7:20 PM EDT 11/13/2024 12:57 AM EDT Logan Araujo MD MICROBIOLOGY - GENERAL O RDERABLES Final Result Performing Organization Address [facility]/ZIP Co de Phone Number [facility]
[address] [place] [address], [place] [phone] * (ABNORMAL) High Sensitivity Troponin T 1Hr (11/12/2024 7:16 PM EDT) HS Troponin T 16(H) <14 ng/L 11/12/2024 7:53 PM EDT [facility] Troponin T Numeric Delta -1 ng/L 11/12/2024 7:53 PM EDT [facility] Troponin T % Delta -6 Abnormal if >/= 20% 11/12/2024 7:53 PM EDT [facility] Blood Line / Unknown 11/12/2024 7: 16 PM EDT 11/12/2024 7:20 PM EDT Narrative [facility] - 11/12/2024 7:53 PM [...] MD LAB BLOOD ORDERABLES Fin al Result [facility]
[address] [place] [address], [place] [phone] * (ABNORMAL) Iron Profile w/o Ferritin (11/12/2024 7:16 PM EDT) Iron 21(L) 37 - 145 mcg/dL 11/13/2024 3:24 AM EDT [facility] Iron Saturation (TSAT) 4(L) 20 - 50 % 11/13/2024 3:24 AM EDT [facility] Transferrin 321 200 - 360 mg/dL 11/13/2024 3:24 AM EDT [facility] TIBC 478 298 - 536 mcg/dL 11/13/2024 3:24 AM EDT [facility] Blood Venipuncture / Unknown 11/12/2024 7:16 PM EDT 11/13/2024 2:57 AM EDT Aaliyahcolleen Jha APRN LAB BLOOD ORDERABLES Final Re sult Performing Organization Address City/[facility] [address]/ZIP Co de Phone Number [facility]
[address] [place] [address], [place] [phone] * Ferritin (11/12/2024 7:16 PM EDT) Ferritin 13.80 13.00 - 150.00 ng/mL 11/13/2024 3:24 AM EDT [facility] Blood Venipuncture / Unknown 11/12/2024 7:16 PM EDT 11/13/2024 2:57 AM EDT Narrative [facility] - 11/13/2024 3:24 AM EDT Results may be falsely decreased if patient taking Biotin. Aaliyah Jha APRN LAB BLOOD ORDERABLES Final Re sult Performing Organization Address City/[facility] [address]/ZIP Co de Phone Number [facility]
[address] [place] [address], [place] [phone] * XR Chest 1 View (11/12/2024 6:30 PM EDT) Anatomical Region Laterality Modality Body N/A Radiographic Tatyana ging 11/12/2024 7:00 PM EDT Impressions 11/12/2024 7:02 PM EDT Impression: 1. No acute cardiopulmonary disease. Electronically Signed: Arben Neely MD 11/12/2024 7:02 PM EDT Workstation ID: [id number] Narrative 11/12/2024 7:02 PM EDT XR CHEST [...] MD 11/12/2024 7:02 PM EDT Workstation ID: [id number] Logan Araujo MD IMG DIAGNOSTIC IMAGING O RDERABLES Final Result * Castellano Top (11/12/2024 5:17 PM EDT) Pathologist [facility] Extra Tube Hold for add-ons. 11/12/2024 5:32 PM EDT [facility] Comment:Auto resulted. Blood Venipuncture / Unknown 11/12/2024 5:17 PM EDT 11/12/2024 5:17 PM EDT Logan Araujo MD LAB BLOOD ORDER ONLY Fin al Result [facility]
[address] [place] [address], * TSH Rfx On Abnormal To Free T4 (11/12/2024 5:17 PM EDT) Pathologist [facility] TSH 2.480 0.270 - 4.200 uIU/mL 11/12/2024 5:51 PM EDT [facility] Blood Venipuncture / Unknown 11/12/2024 5:17 PM EDT 11/12/2024 5:17 PM EDT Logan Araujo MD LAB BLOOD ORDERABLES Fin al Result [facility]
[address] [place] [address], [place] [phone] * Gold Top - SST (11/12/2024 5:17 PM EDT) Extra Tube Hold for add-ons. 11/12/2024 5:32 PM EDT [facility] Comment:Auto resulted. Blood Venipuncture / Unknown 11/12/2024 5:17 PM EDT 11/12/2024 5:17 PM EDT Logan Araujo MD LAB BLOOD ORDER ONLY Fin al Result Performing Organization Address [facility] [address]/[facility] Co de Phone Number [facility]
[address] [place] [address], [place] [phone] * Green Top (Gel) (11/12/2024 5:17 PM EDT) Extra Tube Hold for add-ons. 11/12/2024 5:31 PM EDT [facility] Comment:Auto resulted. Blood Venipuncture / Unknown 11/12/2024 5:17 PM EDT 11/12/2024 5:17 PM EDT Logan Araujo MD LAB BLOOD ORDER ONLY Fin al Result Performing Organization Address City/[facility] [address]/ZIP Co de Phone Number [facility]
[address] [place] [address], [place] [phone] * Scan Slide (11/12/2024 5:17 PM EDT) Anisocytosis Slight/1+ None Seen 11/12/2024 6:07 PM EDT [facility] Hypochromia Slight/1+ None Seen 11/12/2024 6:07 PM EDT [facility] Microcytes Mod/2+ None Seen 11/12/2024 6:07 PM EDT [facility] WBC Morphology Normal Normal 11/12/2024 6:07 PM EDT [facility] Platelet Morphology Normal Normal 11/12/2024 6:07 PM EDT [facility] Blood Venipuncture / Unknown 11/12/2024 5:17 PM EDT 11/12/2024 5:17 PM EDT Logan Araujo MD LAB BLOOD ORDERABLES Fin al Result Performing Organization Address City/[facility] [address]/ZIP Co de Phone Number [facility]
[address] [place] [address], [place] [phone] * Lavender Top (11/12/2024 5:17 PM EDT) Extra Tube hold for add-on 11/12/2024 5:31 PM EDT [facility] Comment:Auto resulted Blood Venipuncture / Unknown 11/12/2024 5:17 PM EDT 11/12/2024 5:17 PM EDT Logan Araujo MD LAB BLOOD ORDER ONLY Fin al Result [facility]
[address] [place] [address], [place] [phone] * Light Blue Top (11/12/2024 5:17 PM EDT) Extra Tube Hold for add-ons. 11/12/2024 5:31 PM EDT [facility] Comment:Auto resulted Blood Venipuncture / Unknown 11/12/2024 5:17 PM EDT 11/12/2024 5:17 PM EDT Logan Araujo MD LAB BLOOD ORDER ONLY Fin al Result Performing Organization Address City/[facility] [address]/ZIP Co de Phone Number [facility]
[address] [place] [address], * (ABNORMAL) High Sensitivity Troponin T (11/12/2024 5:17 PM EDT) Pathologist [facility] HS Troponin T 17(H) <14 ng/L 11/12/2024 5:51 PM EDT [facility] Blood Venipuncture / Unknown 11/12/2024 5:17 PM EDT 11/12/2024 5:17 PM EDT Narrative [facility] - 11/12/2024 5:51 PM EDT [...] ORDERABLES Fin al Result Performing Organization Address [facility] [address]/[facility] Co de Phone Number [facility]
[address] [place] [address], * (ABNORMAL) D-dimer, Quantitative (11/12/2024 5:17 PM EDT) Pathologist [facility] D-Dimer, Quantitative 10.36(H) 0.00 - 0.66 MCGFEU/mL 11/12/2024 6:00 PM EDT [facility] Blood Venipuncture / Unknown 11/12/2024 5:17 PM EDT 11/12/2024 5:17 PM EDT Narrative [facility] - 11/12/2024 6:00 PM EDT According to the assay bias cutter helper's published package insert, a normal (<0.50 MCGFEU/mL) D-dimer result in conjunction with a non-high clinical probability assessment, excludes deep vein thrombosis (DVT) and pulmonary embolism (PE) with high sensitivity. D-dimer values increase with age and this can make VTE exclusion of an older population difficult. To address this, the [employer], based on best available [...] ORDERABLES Fin al Result Performing Organization Address City/[facility] [address]/ZIP Co de Phone Number [facility]
[address] [place] [address], * Phosphorus (11/12/2024 5:17 PM EDT) Pathologist [facility] Phosphorus 4.1 2.5 - 4.5 mg/dL 11/12/2024 5:51 PM EDT [facility] Blood Venipuncture / Unknown 11/12/2024 5:17 PM EDT 11/12/2024 5:17 PM EDT Logan Araujo MD LAB BLOOD ORDERABLES Fin al Result Performing Organization Address City/[facility] [address]/ZIP Co de Phone Number [facility]
[address] [place] [address], * BNP (11/12/2024 5:17 PM EDT) proBNP 247.0 0.0 - 900.0 pg/mL 11/12/2024 5:51 PM EDT [facility] Blood Venipuncture / Unknown 11/12/2024 5:17 PM EDT 11/12/2024 5:17 PM EDT Narrative [facility] - 11/12/2024 5:51 PM EDT [...] ORDERABLES Fin al Result Performing Organization Address City/[facility] [address]/ZIP Co de Phone Number [facility]
[address] [place] [address], * Lipase (11/12/2024 5:17 PM EDT) Lipase 20 13 - 60 U/L 11/12/2024 5:51 PM EDT [facility] Blood Venipuncture / Unknown 11/12/2024 5:17 PM EDT 11/12/2024 5:17 PM EDT Logan Araujo MD LAB BLOOD ORDERABLES Fin al Result [facility]
[address] [place] [address], * Lactic Acid, Plasma (11/12/2024 5:17 PM EDT) Lactate 1.6 0.5 - 2.0 mmol/L 11/12/2024 5:49 PM EDT [facility] Comment:Falsely depressed re sults may occur on samples drawn from patients receiving N-Acetylcysteine (NAC) or Metamizole. Blood Venipuncture / Unknown 11/12/2024 5:17 PM EDT 11/12/2024 5:17 PM EDT Logan Araujo MD LAB BLOOD ORDERABLES Fin al Result Performing Organization Address City/[facility] [address]/ZIP Co de Phone Number [facility]
[address] [place] [address], [place] [phone] * Folate (11/12/2024 5:17 PM EDT) Folate >20.00 4.78 - 24.20 ng/mL 11/13/2024 9:54 AM EDT [facility] Blood Venipuncture / Unknown 11/12/2024 5:17 PM EDT 11/13/2024 2:59 AM EDT Narrative [facility] - 11/13/2024 9:54 AM EDT Results may be falsely increased if patient taking Biotin. Aaliyah Jha APRN LAB BLOOD ORDERABLES Final Re sult Performing Organization Address [facility] [address]/[facility] Co de Phone Number [facility]
[address] [place] [address], [place] [phone] * (ABNORMAL) Vitamin B12 (11/12/2024 5:17 PM EDT) Vitamin B-12 1,669(H) 211 - 946 pg/mL 11/13/2024 9:54 AM EDT [facility] Blood Venipuncture / Unknown 11/12/2024 5:17 PM EDT 11/13/2024 2:59 AM EDT Narrative [facility] - 11/13/2024 9:54 AM EDT Results may be falsely increased if patient taking Biotin. us Aaliyah Abhijeet MIRANDA LAB BLOOD ORDERABLES Final Re sult [facility]
[address] [place] [address], * (ABNORMAL) Comprehensive Metabolic Panel (11/12/2024 5:17 PM EDT) Glucose 96 65 - 99 mg/dL 11/12/2024 5:51 PM EDT [facility] BUN 24.7(H) 8.0 - 23.0 mg/dL 11/12/2024 5:51 PM EDT [facility] Creatinine 1.06(H) 0.57 - 1.00 mg/dL 11/12/2024 5:51 PM EDT [facility] Sodium 139 136 - 145 mmol/L 11/12/2024 5:51 PM EDT [facility] Potassium 4.4 3.5 - 5.2 mmol/L 11/12/2024 5:51 PM EDT [facility] Chloride 101 98 - 107 mmol/L 11/12/2024 5:51 PM EDT [facility] CO2 27.9 22.0 - 29.0 mmol/L 11/12/2024 5:51 PM EDT [facility] Calcium 9.1 8.6 - 10.5 mg/dL 11/12/2024 5:51 PM EDT [facility] Total Protein 6.4 6.0 - 8.5 g/dL 11/12/2024 5:51 PM EDT [facility] Albumin 4.0 3.5 - 5.2 g/dL 11/12/2024 5:51 PM EDT [facility] ALT (SGPT) 15 1 - 33 U/L 11/12/2024 5:51 PM EDT [facility] AST (SGOT) 27 1 - 32 U/L 11/12/2024 5:51 PM EDT [facility] Alkaline Phosphatase 113 39 - 117 U/L 11/12/2024 5:51 PM EDT [facility] Total Bilirubin 0.2 0.0 - 1.2 mg/dL 11/12/2024 5:51 PM EDT [facility] Globulin 2.4 gm/dL 11/12/2024 5:51 PM EDT [facility] Comment:Calculated Result A/G Ratio 1.7 g/dL 11/12/2024 5:51 PM EDT [facility] BUN/Creatinine Ratio 23.3 7.0 - 25.0 11/12/2024 5:51 PM EDT [facility] Anion Gap 10.1 5.0 - 15.0 mmol/L 11/12/2024 5:51 PM EDT [facility] eGFR 58.1(L) >60.0 mL/min/1.7 3 11/12/2024 5:51 PM EDT [facility] Blood Venipuncture / Unknown 11/12/2024 5:17 PM EDT 11/12/2024 5:17 PM EDT Narrative [facility] - 11/12/2024 5:51 PM EDT GFR [...] MD LAB BLOOD ORDERABLES Fin al Result [facility]
[address] [id number], * Mammo screening digital tomosynthesis bilateral (04/06/2015 [...] in patients with adenosis or dense breasts. [employer] For breast cancer detection in asymptomatic women- Age ACR Recommendations 35-40 Baseline Mammogram 40-49 Annual or Biannual Mammogram 50+ Annual Mammogram Annual physical and frequent self breast examination. Patient has been entered into an automatic reminder system. Addendum Reading Radiologist- DIYA GOEL Addendum Releasing Radiologist- DIYA GOEL Addendum Released Date Time- 04/19/15 1550 Addendum Otr Company Driver- Jaylen BILATERAL SCREENING MAMMOGRAM WITH TOMOSYNTHESIS PNL- [...] in patients with adenosis or dense breasts. [employer] For breast cancer detection in asymptomatic women- Age ACR Recommendations 35-40 Baseline Mammogram 40-49 Annual or Biannual Mammogram 50+ Annual Mammogram Annual physical and frequent self breast examination. Patient has been entered into an automatic reminder system. Reading Akash GOEL Releasing Akash GOEL Released Date Time- 04/06/15 1055 [employer]tr Company Driver- Dave Procedure Note Diya Goel Jr., MD [...] in patients with adenosis or dense breasts. [employer] For breast cancer detection in asymptomatic women- Age ACR Recommendations 35-40 Baseline Mammogram 40-49 Annual or Biannual Mammogram 50+ Annual Mammogram Annual physical and frequent self breast examination. Patient has been entered into an automatic reminder system. Addendum Reading Akash GOEL Addendum Releasing Akash GOEL Addendum Released Date Time- 04/19/15 1550 Addendum Otr Company Driver- Jaylen BILATERAL SCREENING MAMMOGRAM WITH TOMOSYNTHESIS PNL- [...] in patients with adenosis or dense breasts. [employer] For breast cancer detection in asymptomatic women- Age ACR Recommendations 35-40 Baseline Mammogram 40-49 Annual or Biannual Mammogram 50+ Annual Mammogram Annual physical and frequent self breast examination. Patient has been entered into an automatic reminder system. Reading Radiologist- DIYA GOEL Releasing Radiologist- DIYA GOEL Released Date Time- 04/06/15 5402 Fernando Acosta us Gregorio Mcgee MD IMG MAMMOGRAPHY ORDERABLES Edite d Result - Final from Last 3 Months or Most Recently Relevant to Health Maintenance Insurance [facility] MEDICARE A & B Advance Directives * CPR (Attempt to Resuscitate) (Latest Code Status on File) Date Activated Date Inactivated Comments 11/13/2024 2:01 AM 11/14/2024 6:43 PM Question Answer Comments Code Status (Patient has no pulse and is not breathing): CPR (Attempt to Resuscitate) Medical Interventions (Patie nt has pulse or is breathing): Full Support Care Teams Therapeutic Assistant Relationship Specialty Start Date End Date Sandra Orozco APRN [address] [place] [address] SANDER BERMUDEZ [address] PCP - General Internal Medicine 05/11/24
--- OUTSIDE RECORDS SUMMARY | 2024-12-23 10:11 | XMS_ITS | Encounter Summary ---
[facility] Address [address] [place] [address] Care Team Providers Care County Records Management Officer Name Role Phone Sandra Orozco APRN Primary Care Provider [phone] Encounter Details Date Type Department Care Team [...] heating? Not very hard 11/13/2024 [facility] [place] of Occupat ional Health - Occupational Stress [...] GED or equivalent No 11/13/2024 Preferred Language Bermudian 11/13/2024 PHQ-2 Answer Date Recorded Patient Health [...] 4:43 PM EDT Minna Gamez, BERNICE * Roy Suicide Severity Rating Scale (Screener/Recent Self-Report) Question [...] Description 02/16/2025 11:00 AM EST Office Visit [facility] [address] [facility] [address] [address] Dina Solano APRN [address] [facility] [address] [place] [address] documented as of this encounter Visit Diagnoses Not on filedocumented in this encounter Additional Health Concerns Infection Onset Date Last Indicated Resolved Time COVID Screen (preop/placement) 11/12/2024 11/12/2024 11/12/2024 8:24 PM EDT documented as of this encounter Care Teams County Records Management Officer Relationship Specialty Start Date End Date Sandra Orozco APRN [address] [place] [address] PCP - General Internal Medicine 05/11/24 documented as of this encounter
--- OUTSIDE RECORDS SUMMARY | 2024-12-23 10:11 | XMS_ITS | Encounter Summary ---
Author Organization [facility]stem Address [address] [place] [address] Care Team Providers Care Chemical Research Worker Name Role Phone Sandra Orozco APRN Primary Care Provider Encounter Details Date Type Department Care Team (Late st Contact Info) Description 11/10/2024 Telephone [facility] [address] [facility] [address] [place] [phone] Christy Kirk MD [address] [facility] [address] [place] [address] Social History Tobacco Use Types Packs/Day Years [...] SOONER APT. SHE CAN BE REACHED AT [phone] documented in this encounter Plan of Treatment Upcoming Encounters Date Type Department Care Team (Late st Contact Info) Description 02/16/2025 11:00 AM EST Office Visit [facility] [address] [facility] [address], [place] [address] Kalin Solano APRN [address] [facility] [address], [place] [address] documented as of this encounter Visit Diagnoses Not on filedocumented in this encounter Care Teams Chemical Research Worker Relationship Specialty Start Date End Date Sandra Orozco APRN [facility] [address] [place] [address] PCP - General Internal Medicine 05/11/24 documented as of this encounter
--- OUTSIDE RECORDS SUMMARY | 2024-12-23 10:11 | XMS_ITS | Encounter Summary ---
Author Organization [facility] ystem Address [address] [place] [address] Care Team Providers Care Concert Promoter Name Role Phone Sandra Orozco APRN Primary Care Provider [phone] Encounter Details Date Type Department Care Team (Late st Contact Info) Description 11/12/2024 Patient rounding ([facility] [address] [facility] [address], [place] [address] Dina Solano APRN [address] [facility] [address] [place] [address] Social History Tobacco Use Types Packs/Day Years Used Date Smoking Tobacco: Former Cigarettes Smokeless Tobacco: Never Comments:Smoked since 1973 Alcohol Use Standard Drinks/Week Comments Not Currently 0 (1 standard drink = 0.6 oz pur e alcohol) former [facility] Utilities Answer Date Recorded In the past 12 months has [employer], gas, oil, or water company threatened [...] care, and heating? Not very hard 11/13/2024 [facility] [place] of Occupat ional Health - Occupational Stress [...] GED or equivalent No 11/13/2024 Preferred Language Czech 11/13/2024 PHQ-2 Answer Date Recorded Patient Health [...] is Joaquina Sears, and I am the Water Control Supervisor for [facility] [place]. I would like to thank you for [...] with your visit with us as a [facility] facility? Over the next few days, you will be receiving a Patient Experience Survey. Please consider taking the survey, as it helps [facility] in improving their patient care. Thank you for taking the time to answer our questions today. I hope you have a good day. documented in this encounter Plan of Treatment Upcoming Encounters Date Type Department Care Team (Late st Contact Info) Description 02/16/2025 11:00 AM EST Office Visit [facility] C[facility] [address] [facility] [address] [place] [phone] Dina Solano APRN [address] [facility] [address] [place] [address] documented as of this encounter Visit Diagnoses Not on filedocumented in this encounter Care Teams Concert Promoter Relationship Specialty Start Date End Date Sandra Orozco APRN [facility] [address] [place] [address] PCP - General Internal Medicine 05/11/24 documented as of this encounter
--- OUTSIDE RECORDS SUMMARY | 2024-12-23 10:11 | XMS_ITS | Encounter Summary ---
Author Organization [facility] ystem Address [address] [place] [address] Care Team Providers Care Pocket Grinder Operator Name Role Phone Sandra Orozco APRN Primary Care Provider [phone] Encounter Details Date Type Department Care Team (Late st Contact Info) Description 11/16/2024 Readmission Management [facility] N[facility] [address] [place] [address] Omaira Knapp RN Social History Tobacco Use Types Packs/Day Years Used Date Smoking Tobacco: Former Cigarettes Smokeless Tobacco: Never Comments:Smoked since 1973 Alcohol Use Standard Drinks/Week Comments Not Currently 0 (1 standard drink = 0.6 oz pur e alcohol) former [facility] Utilities Answer Date Recorded In the past 12 months has [employer], gas, oil, or water [employer] threatened to shut off services in your [...] care, and heating? Not very hard 11/13/2024 [facility] Occup[facility] ional Health - Occupational [...] GED or equivalent No 11/13/2024 Preferred Language Paraguayan 11/13/2024 PHQ-2 Answer Date Recorded Patient Health [...] AM EDT Prep Survey Flowsheet Row Responses [facility] patient discharged from? [place] Is LACE score less than 10 ? [...] Description 02/16/2025 11:00 AM EST Office Visit [facility] [address] [facility] [address] [place] [address] Dina Solano APRN [address] [facility] [address] [place] [address] documented as of this encounter Visit Diagnoses Not on filedocumented in this encounter Care Teams Pocket Grinder Operator Relationship Specialty Start Date End Date Sandra Orozco APRN [address] [place] [address] [address] [place] [address] PCP - General Internal Medicine 05/11/24 documented as of this encounter
--- OUTSIDE RECORDS SUMMARY | 2024-12-23 10:11 | XMS_ITS | Encounter Summary ---
Author Organization [employer] ([place], [place], [place], [place]) Address [address] [place] [address] Care Team Providers Care Global Engineering Manager Name Role Phone Sandra Orozco RUBEN Primary Care Provider Encounter Details Date Type Department Care Team (Late st Contact Info) Description 03/01/2020 Transcribed Document [facility] [place] [facility] [place] [address] ProviderAide MD [address] [place] [address] Social History Tobacco Use Types Packs/Day [...] Historical MD Derek - 03/01/2020 11:34 AM CHICKEN TENDER DATE OF PROCEDURE: 03/01/2020 SURGEON: Noemi Mayfield [...] 18-gauge Tuohy needle was advanced by the unup-lc-cgimjlsjyd technique under direct fluoroscopic guidance into the [...] visit and the patient has been afebrile. /[id number] Noemi Mayfield MD, JELANI Pain Certified DELILAH/ANTHONY / KR / MODL /[id number] documented in this encounter Plan of Treatment Not on file documented as of this encounter Visit Diagnoses Not on filedocumented in this encounter Care Teams Global Engineering Manager Relationship Specialty Start Date End Date Sandra Orozco, FOOD SAFETY MANAGER [address] [place] [address] PCP - General Nurse Practitioner 01/24/22 documented as of this encounter
--- OUTSIDE RECORDS SUMMARY | 2024-12-23 10:11 | XMS_ITS | Encounter Summary ---
Author Organization [employer] ([place], [place], [place], [place]) Address [address] [place] [address] Care Team Providers Care Hand Cementer Name Role Phone Sandra Orozco RUBEN Primary Care Provider Encounter Details Date Type Department Care Team (Late st Contact Info) Description 01/25/2020 Transcribed Document [facility] [place] Family Medicine [address] [place] [address] ProviderAide MD [address] [place] [address] Social History Tobacco Use Types Packs/Day Years Used Date Smoking Tobacco: Never Assessed Comments Unknown Sex and Gender Information Value Date Recorded Sex Assigned at Not on file Legal Sex Female 2:35 PM CDT Gender Identity Not on file Sexual Orientation Not on file documented as of this encounter Miscellaneous Notes * Cerner Conversion Note - Historical ProviderMD - 01/25/2020 6:55 AM EDUCATION TRAINER DATE OF ADMISSION: 01/22/2020 HISTORY OF PRESENT [...] applying ice and heat, physical therapy, exercise, mkdh-[id number] medication, bed rest going to [facility], [...] to contact her primary physician and her smokehouse worker to see if we can hold the [...] visit and the patient has been afebrile. /[id number] Karim Chaparro, MD, JELANI Pain Certified KR/AQ / KR / MODL CC: MD Sandra Valero APRN Electronically signed by Interface, [facility] Conversion Director Of Regulatory Affairs Cerner at 06/27/2022 8:04 AM CDT documented in this encounter Plan of Treatment Not on file documented as of this encounter Visit Diagnoses Not on filedocumented in this encounter Care Teams Hand Cementer Relationship Specialty Start Date End Date Sandra Orozco, RUBEN [address] [address] PCP - General Nurse Practitioner 01/24/22 documented as of this encounter
--- OUTSIDE RECORDS SUMMARY | 2024-12-23 10:11 | XMS_ITS | Clinical Summary ---
Author Organization [employer] ([place], [place], [place], [place]) Address [address] [place] [address] Care Team Providers Care Superintendent Transportation Name Role Phone OrozcoKrysten randhawarafael MIRANDA Primary Care Provider Allergies Active Allergy [...] UP Levofloxacin Anxiety High 05/01/2011 SHAKES, CLIMBS AVREY, CANNOT SLEEP Naproxen Other (See Comments) High [...] your living situation today? I have a [facility] place to live 10/13/2023 Think [...] Do you speak a language other than [place]riot at [facility]? No 10/13/2023 Do you want [...] and Screening (12+) 10/13/2024 10/14/2023 COVID-19 VACCINE ( - 2024- season) 11/09/202402/2021, 06/16/2020 Influenza Vaccine (#1) 2024 02/22/2023 DTAP/TDAP/TD VACCINES (4 - T d or Tdap) 11/09/2027 11/08/2017, 06/22/2009, 08/29/2001 Medical Devices Implanted Type Area Antenna Machine Operator Device Identifier Shelf Expiration Date Model / Serial / Lot Sealant Durasl Spine 5ml [id number] - [id number] Implanted:Qty: 1 on 01/31/2022 by Emeka Fernández MD at [facility] IMPLANTS N/A: Back [employer] 07/09/[id number] / / [id number] Cement Spinal Confidence 2839-10-000 - [id number] Implanted:Qty: 2 on 10/14/2023 at [facility] IMPLANTS N/A: Back J &J:DEPUY:DEPUY SPINE 06/08/2025 0 [id number] Insurance MEDICARE PART A B GENERIC COMMERCIAL Advance Directives For more information, please contact: [phone] Documents on File Type Date Recorded Patient Social Media Community Manager Expl anation Advance Directives and Livin g Will 01/31/2022 8:44 AM * Full Code (Latest Code Status on File) Date Activated Date Inactivated Comments 10/12/2023 11:08 PM 10/15/2023 6:49 PM * Full Code Date Activated Date Inactivated Comments 01/31/2022 5:41 PM 02/01/2022 4:50 PM Healthcare Agents on File Name Relationship Healthcare Agent Relationshi p Communication Luis Anthony Son First Alternate Healthcare Decision-Maker Care Teams Superintendent Transportation Relationship Specialty Start Date End Date Sandar Orozco APRN [address] [place] [address] PCP - General Nurse Practitioner 01/24/22
--- OUTSIDE RECORDS SUMMARY | 2024-12-23 10:11 | XMS_ITS | Clinical Summary ---
Author Organization [facility] Address [address] [place] [address] Care Team Providers Care Picking Crew Supervisor Name Role Phone Adryan Cooper MD Primary Care Provider + [phone] Allergies Active Allergy Reactions Criticality Noted Date [...] tablet (5 mg). 05/28/2016 Active HYDROcodone-gudelia taminophen (Robbins) 10-325 MG tablet 1 tablet (10 mg [...] 2) 2008 [facility]-Breast Cancer Screening 04/06/201703/12, 04/06/2015 [id number] Vaccine ( season) 2024 01/20/2021, 06/16/2020 [facility]-Influenza [...] patient's age to complete this topic Insurance [id number] [facility] [place] [id number] [place] [address] COMBINED PRIORITY 1 CARD Care Teams Picking Crew Supervisor Relationship Specialty Start Date End Date Adryan Cooper MD [address] [place] [address] PCP - General 07/22/20
--- OUTSIDE RECORDS SUMMARY | 2024-12-23 10:11 | XMS_ITS | Referral Summary ---
Author Organization [employer] ([place], [place], [place], [place]) Address [address] [place] [address] Care Team Providers Care Spooler Rubber Strand Name Role Phone OrozcoKrystenrafael MIRANDA Primary Care [...] your living situation today? I have a [facility] place to live 10/13/2023 Think about the [...] Do you speak a language other than Belgian at [facility]? No 10/13/2023 Do you want help [...] on file Medical Devices Implanted Type Area Electrical Subcontractor Device Identifier Shelf Expiration Date Model / Serial / Lot Sealant Durasl Spine 5ml [id number] - [id number] Implanted:Qty: 1 on 01/31/2022 by Emeka Fernández MD at [facility] IMPLANTS N/A: Back [employer] 07/09/2023 [id number] / / [id number] Cement Spinal Confidence 2839-10-000 - [id number] Implanted:Qty: 2 on 10/14/2023 at [facility] IMPLANTS N/A: Back J &J:DEPUY:DEPUY SPINE 06/08/2025 0 / / [id number] Insurance MEDICARE PART A B GENERIC COMMERCIAL Advance Directives For more information, please contact: [phone] Documents on File Type Date Recorded Patient Market Risk Manager Expl anation Advance Directives and Marixa g Will 01/31/2022 8:44 AM * Full Code (Latest Code Status on File) Date Activated Date Inactivated Comments 10/12/2023 11:08 PM 10/15/2023 6:49 PM * Full Code Date Activated Date Inactivated Comments 01/31/2022 5:41 PM 02/01/2022 4:50 PM Healthcare Agents on File Name Relationship Healthcare Agent [facility] p Communication Luis Cruz Son First Alternate Healthcare Decision-Maker Care Teams Spooler Rubber Strand Relationship Specialty Start Date End Date Sandra Orozco, HUMAN FACTORS ERGONOMIST [address] [place] [address] PCP - General Nurse Practitioner 01/24/22
--- OUTSIDE RECORDS SUMMARY | 2024-12-23 10:11 | XMS_ITS | Encounter Summary ---
Author Organization [facility] Address [address] [place] [address] Care Team Providers Care Ornamental Metal Worker Helper Name Role Phone Sandra Orozco APRN Primary Care Provider [phone] Encounter Details Date Type Department Care Team (Late st Contact Info) Description 11/23/2024 Readmission Management [facility] NURSE CALL [facility] [address] [place] [address] Eloise Farrar RN Social History Tobacco Use Types Packs/Day Years Used Date Smoking Tobacco: Former Cigarettes Smokeless Tobacco: Never Comments:Smoked since 1973 Alcohol Use Standard Drinks/Week Comments Not Currently 0 (1 standard drink = 0.6 oz pur e alcohol) former [facility] Utilities Answer Date Recorded In the past 12 months has [employer], gas, oil, or water [employer] threatened to shut off services in your [...] care, and heating? Not very hard 11/13/2024 [facility] - Occupational [...] CHF Week 1 Survey Flowsheet Row Responses [facility] patient discharged from? [place] Does the patient have one of the following disease processes/diagnoses(primary or secondary)? CHF CHF Week 1 attempt successful? No Unsuccessful attempts Attempt 1 ELOISE Cruz - Registered Nurse documented in this encounter Plan of Treatment Upcoming Encounters Date Type Department Care Team (Late st Contact Info) Description 02/16/2025 11:00 AM EST Office Visit [facility] CARDIOLOGY [address] [facility] [address] [place] [address] Dina Solano APRN [address] [facility] [address] [place] [address] documented as of this encounter Visit Diagnoses Not on filedocumented in this encounter Care Teams Ornamental Metal Worker Helper Relationship Specialty Start Date End Date Sandra Orozco APRN [address] [facility] [address] [place] [address] PCP - General Internal Medicine 05/11/24 documented as of this encounter
[2024-12-23 10:40] VITALS: BP 118/73; PULSE 71; RESP 17; O2SAT 97
[2024-12-23] MEDS: IRON SUCROSE COMPLEX 200 MG in 0.9 % SODIUM CHLORIDE 100 ML 220 MG IV (10:40)
[2024-12-23 11:10] VITALS: BP 103/58; PULSE 70; RESP 17
== END 2024-12-23 23:59 | disposition home or self-care (01) ==
LOC: INF 10:00
PROVIDERS: PCP Nurse Practitioner Family; Visit Provider Nurse Practitioner Family
DX: D50.9 Iron deficiency anemia, unspecified (principal)
CPT/HCPCS: 96365; J1756

== ENCOUNTER 2024-12-25 10:42 | Outpatient (CLI) | payer MEDICARE, OTHER, SELFPAY ==
--- OUTSIDE RECORDS SUMMARY | 2024-11-12 12:30 | XMS_ITS | Encounter Summary ---
[facility] [address] [place] [address] Care Team Providers Care Principal Technical Architect Name Role Phone Sandra Orozco APRN Primary Care Provider Reason for Visit * Reason Comments Hyperlipidemia Chronic Venous Insufficiency Atrial Fibrillation Encounter Details Date Type Department Care Team (Late st Contact Info) Description 11/12/2024 12:30 PM EDT Office Visit [facility] [address] [facility] [address], [place] [address] Dina Solano APRN [address] [facility] [address] [place] [address] Shortness of breath (Primary Dx); Generalized edema; [...] = 0.6 oz pur e alcohol) former [facility] Utilities Answer Date Recorded In the past 12 months has [employer] electric, gas, oil, or water company threatened [...] care, and heating? Not very hard 11/13/2024 [facility] of Occupat ional Health - Occupational Stress [...] GED or equivalent No 11/13/2024 Preferred Language Citizen Of [place] 11/13/2024 PHQ-2 Answer Date Recorded Patient Health [...] of breath and lower extremity edema. Her doll surgeon was concerned about heart failure and advised [...] Orozco APRN Date: 11/12/2024 Department: [facility] [address] [place] [address] [address] [facility] [id number] Chief Complaint: Chief Complaint Patient presents with Hyperlipidemia Chronic Venous Insufficiency Atrial Fibrillation Problem list: Paroxysmal atrial fibrillation/History of ischemic CVA/TIAs status post loop explant [id number] (Female, Age, CVA, PAD) PAF noted [...] has been diagnosed with COPD by her doll surgeon who she was at a follow-up with [...] of breath and lower extremity edema. Her doll surgeon was concerned about heart failure and advised [...] evaluation. Patient reports she will go to [facility] this afternoon. Follow Up Return in about 2 weeks (around 11/26/2024) for With Me. Patient or patient b2b outside sales representative verbalized consent for the use of Ambient Listening during the visit with Dina Solano APRN for chart documentation. 11/12/2024 12:47 EDT Dina Solano APRN [facility] Cardiology documented in this encounter Plan of Treatment Upcoming Encounters Date Type Department Care Team (Late st Contact Info) Description 02/16/2025 11:00 AM EST Office Visit [facility]IOLOG[facility] [address] [facility] [address] [place] [address] Dina Solano APRN [address] [facility] [address] [place] [address] documented as of this encounter Visit Diagnoses Diagnosis Shortness of breath- Primary Generalized edema Edema Chronic respiratory failure with hypoxia Paroxysmal atrial fibrillation Atrial fibrillation History of CVA (cerebrovascular accident) Transient ischemic attack (TIA), and cerebral infarction without residual deficits Moderate aortic valve regurgitation Peripheral arterial disease Unspecified peripheral vascular disease documented in this encounter Care Teams Principal Technical Architect Relationship Specialty Start Date End Date Sandra Orozco APRN [address] [place] [id number] PCP - General Internal Medicine 05/11/24 documented as of this encounter
--- OUTSIDE RECORDS SUMMARY | 2024-11-12 21:36 | XMS_ITS | Encounter Summary ---
Author Organization [facility] Address [address] [place] [address] Care Team Providers Care Campaign Director Name Role Phone Sandra Orozco APRN Primary Care Provider Reason for Visit * Reason Comments Shortness of Breath * Auth/Cert Specialty Diagnoses / Procedures Referred By Contac t Referred To Contact Diagnoses Respiratory failure with hypoxia Referral ID Status Reason Start Date Expiration Date Visits Re quested Visits Authorized [id number] 1 1 Encounter Details Date Type Department Care Team (Late st Contact Info) Description 11/12/2024 9:36 PM EDT - 11/14/2024 4:38 PM EDT Hospital Encounter [address] [place] [id number] Vasu Mckeon MD [address] [place] [address] Domitila Villalobos MD [address] [facility] 4Th Floor [place], [place] [id number] Mel Palma DO [address] [place] [address] Vasu Luke MD [address] [address] Referred by health home care nurse (Primary Dx); Dyspnea on exertion; Chronic respiratory [...] = 0.6 oz pur e alcohol) former [facility] Utilities Answer Date Recorded In the past 12 months has [employer] electric, gas, oil, or water [employer] threatened to shut off services in your [...] care, and heating? Not very hard 11/13/2024 [facility] [place] [facility] Occup[facility] - Occupational Stress [...] GED or equivalent No 11/13/2024 Preferred Language Yi 11/13/2024 PHQ-2 Answer Date Recorded Patient Health [...] 11/12/2024 4:43 PM Minna Vazquez RN * [place] Suicide Severity Rating Scale (Screener/Recent Self-Report) Question [...] original note were not included. [facility] DISCHARGE SUMMARY Patient Name: Casi [...] outpatient labs/diagnostics: Pcp [address] Kirk ([facility]) ~1 week Regular pulmonary physician [...] motion Neuro: Face symmetric, speech clear, equal assembler and tester electronics, moves all extremities Cardiac: rrr Resp: slightly [...] Date/Time Respiratory Panel PCR w/COVID-19(SARS-CoV-2) SIDRA/CHECO/SAUD/PAD/COR/ERIC In-House, SALVAGE WINDER Swab in UTM/VTM, 2 HR TAT - Swab, Nasopharynx [[id number]] (Normal) Collected: 11/13/24 0326 Lab Status: Final [...] SCREENING ORDER (NO ISOLATION) - Swab, Nasopharynx [[id number]] (Normal) Collected: 11/12/24 192 Lab Status: Final result Specimen: Swab from Nasopharynx Updated: 11/12/242023 Narrative: The following orders were created for panel order COVID PRE-OP / PRE-PROCEDURE SCREENING ORDER (NO ISOLATION) - Swab, Nasopharynx. Procedure Abnormality Status --------- ------ COVID-19, FLU A/B, RSV P...[[id number]] Normal Final result Please view results for these tests on the individual orders. COVID-19, FLU A/B, RSV PCR 1 HR TAT - Swab, Nasopharynx [[id number]] (Normal) Collected: 11/12/241920 Lab Status: Final result Specimen: Swab from Nasopharynx Updated: 11/12/242023 COVID19 Not Detected Influenza A PCR Not Detected Influenza B PCR Not Detected RSV, PCR Not Detected Urine Culture - Urine, Urine, Clean Catch [[id number]] (Normal) Collected: 11/12/241919 Lab Status: Final result [...] MD 11/12/2024 8:31 PM EDT Workstation ID: [id number] XR Chest 1 View Result Date: 11/12/2024 XR CHEST 1 VW Date of Exam: 11/12/2024 6:28 PM EDT Indication: SOA triage protocol. Comparison: 07/16/2024 Findings: Heart size at the upper limits of normal. Pulmonary vessels normal. Lungs are clear. No pleural effusion. No pneumothorax. Impression: 1. No acute cardiopulmonary disease. Electronically Signed: Arben Neely MD 11/12/2024 7:02 PM EDT Workstation ID: [id number] Results for orders placed during the hospital [...] Comments) Swelling all over Nortriptyline Swelling Poison Norton Extract Hives, Itching, Swelling and Rash Poison [...] week Discharge Follow-up with Specialty: Dr. Kirk ([facility] cardiology) 1 week As directed Specialty: Dr. Kirk ([facility] cardiology) 1 week Discharge Follow-up with Specialty: regular roll filler (2 weeks or 1st available) As directed Specialty: regular roll filler (2 weeks or 1st available) Vasu Luke MD 11/14/24 Time Spent on Discharge: I spent 35 minutes on this discharge activity which included: lrqi-gu-dikumfevjhipv with the patient, reviewing the data in the system, coordination of the care with the nursing staff as well as consultants, documentation, and entering orders. * Libertad Urbano, PT - 11/14/2024 7:40 AM EDT Patient Name: Casi Cruz : 1960 Today's Date: 11/14/2024 Admit Date: 11/12/2024 Visit Dx: ICD-10-CM ICD-9-CM 1. Referred by health home care nurse Z02.89 V68.89 2. Dyspnea on exertion R06.09 [...] MODERATE BY ECHO Aortic regurgitation MODERATE BY [facility] ECHO Arthritis Asthma Chronic respiratory [...] RECORDER PLACEMENT: 11/06/2018- AE. LOOP RECORDER SERIAL #[id number] SINUS SURGERY General Information Row Name 11/14/24 [...] PT Physical Therapist Mobility Row Name 11/14/24 0794 Bed Mobility Bed Mobility supine-sit -LS Supine-Sit [place] (Bed Mobility) independent -LS Comment, (Bed Mobility) Pt transitioned supine to sit indep on flat bed surface without a rail. PerPT's clinical judgement, pt would be indep sit to supine as well. -LS Row Name 11/14/24 0740 Sit-Stand Transfer Sit-Stand [place] (Transfers) independent -LS Comment, (Sit-Stand Transfer) indep without AD -LS Row Name 11/14/24 0740 Gait/Stairs (Locomotion) [place] Level (Gait) independent -LS Patient was able [...] Therapist Physical Therapy Education Title: PT OT PRINT CUTTER Therapies (In Progress) Topic: Physical Therapy (Resolved) [...] Description Service Date Service Provider Modifiers Qty [id number] HC PT EVAL LOW COMPLEXITY 4 11/14/2024 [...] EDT Acute Care - Occupational Therapy Discharge [facility] Patient Name: Casi Cruz : 1960 Today's Date: 11/13/2024 Admit Date: 11/12/2024 Visit Dx: ICD-10-CM ICD-9-CM 1. Referred by health home care nurse Z02.89 V68.89 2. Dyspnea on exertion R06.09 [...] MODERATE BY ECHO Aortic regurgitation MODERATE BY [facility] ECHO Arthritis Asthma Chronic venous [...] RECORDER PLACEMENT: 11/06/2018- AE. LOOP RECORDER SERIAL #[id number] SINUS SURGERY General Information Row Name 11/13/24 [...] Name 11/13/24 142 Bed Mobility Bed Mobility ongjmn-vfe-mumpil -AN Rskjqo-Qot-Jcqach [place] (Bed Mobility) independent -AN [facility] 11/13/24 142 Transfers Transfers sit-stand transfer;stand-sit transfer -AN [facility] 11/13/24 142 Sit-Stand Transfer Sit-Stand [place] (Transfers) supervision -AN [facility] 11/13/24 142 Stand-Sit Transfer Stand-Sit [place] (Transfers) supervision -AN [facility] 11/13/24 142 Functional Mobility Functional Mobility- Ind. Level supervision required -AN [facility] 11/13/24 142 Activities of Daily Living BADL Assessment/Intervention lower body dressing;upper body dressing -AN [facility] 11/13/24 142 Lower Body Dressing Assessment/Training [place] Level (Lower Body Dressing) don;socks;independent -AN Position (Lower Body Dressing) edge of bed sitting -AN [facility] 11/13/241421 Upper Body Dressing Assessment/Training [place] Level (Upper Body Dressing) don;pajama/robe;independent -AN Position (Upper Body Dressing) edge of bed sitting -AN User Tierney (r) = Recorded By, (t) = Taken By, (c) = Cosigned By Initials Name Provider Type Che Poole OT Occupational Therapist Obj/Interventions [facility] Name 11/13/24 142 Sensory Assessment (Somatosensory) Sensory Assessment (Somatosensory) right UE -AN Sensory Subjective Reports numbness -AN Sensory Assessment hx of nerve damage -AN [facility] 11/13/24 142 Vision Assessment/Intervention Visual Impairment/Limitations WFL -AN [facility] 11/13/24 142 Range of Motion Comprehensive General Range of Motion no range of motion deficits identified -AN [facility] 11/13/24 142 Strength Comprehensive (MMT) General Manual Muscle Testing (MMT) Assessment no strength deficits identified -AN [facility] 11/13/24 142 Balance Balance Assessment sitting [...] Pain Rating 0/10 - no pain -AN [facility] Name 11/13/241425 Plan of Care Review [...] (OT) Anticipated Discharge Disposition (OT) home -AN [facility] Name 11/13/241425 Vital Signs Pre SpO2 (%) 95 -AN O2 Delivery Pre Treatment room air -AN O2 Delivery Intra Treatment room air -AN Post SpO2 (%) 95 -AN O2 Delivery Post Treatment room air -AN Pre Patient Position Supine -AN Intra Patient Position Standing -AN Post Patient Position Supine -AN [facility] 11/13/241425 Positioning and Restraints Pre-Treatment Position [...] Therapist Occupational Therapy Education Title: PT OT PRINT CUTTER Therapies (In Progress) Topic: Occupational Therapy (In [...] Description Service Date Service Provider Modifiers Qty [id number] HC OT EVAL LOW COMPLEXITY 3 11/13/2024 Che Velazquez OT GO 1 OT Discharge Summary Anticipated Discharge Disposition (OT): home Reason for Discharge: Independent Discharge Destination: Home Che Velazquez OT 11/13/2024 documented in this encounter Discharge Instructions * Attachments The following attachments cannot be sent through Care Everywhere. * Heart Failure and Exercise: What to Know (Yi) * Prednisone Tablets (Yi) documented in this encounter Medications at Time [...] nursing note reviewed. Exam conducted with a payroll secretary present. HENT: Mouth/Throat: Mouth: Mucous membranes are [...] Plan 1-acute on chronic hypoxic respiratory failure-resolved. -03-qtia-hxpm history of smoking-stopped last year -Likely COPD [...] original note were not included. [facility] ADMISSION FOLLOW-UP NOTE Patient admitted after midnight, H&P by my partner performed earlier on today's date reviewed. Interim findings, labs, and charting also reviewed. [facility] Problem List has been managed and [...] original note were not included. [facility] HISTORY AND PHYSICAL Patient Name: [...] urinary symptoms. Pt follows w/ Pulmonology in [place]. Pt was seen for evaluation this week [...] MODERATE BY ECHO Aortic regurgitation MODERATE BY [facility] ECHO Arthritis Asthma Chronic venous [...] RECORDER PLACEMENT: 11/06/2018- AE. LOOP RECORDER SERIAL #[id number] SINUS SURGERY Family History: family history includes [...] Comments) Swelling all over Nortriptyline Swelling Poison Norton Extract Hives, Itching, Swelling and Rash Poison [...] SCREENING ORDER (NO ISOLATION) - Swab, Nasopharynx [[id number]] (Normal) Collected: 11/12/241920 Lab Status: Final result Specimen: Swab from Nasopharynx Updated: 11/12/242023 Narrative: The following orders were created for panel order COVID PRE-OP / PRE-PROCEDURE SCREENING ORDER (NO ISOLATION) - Swab, Nasopharynx. Procedure Abnormality Status --------- ------ COVID-19, FLU A/B, RSV P...[[id number]] Normal Final result Please view results for these tests on the individual orders. COVID-19, FLU A/B, RSV PCR 1 HR TAT - Swab, Nasopharynx [[id number]] (Normal) Collected: 11/12/241920 Lab Status: Final result [...] MD 11/12/2024 8:31 PM EDT Workstation ID: [id number] XR Chest 1 View Result Date: 11/12/2024 XR CHEST 1 VW Date of Exam: 11/12/2024 6:28 PM EDT Indication: SOA triage protocol. Comparison: 07/16/2024 Findings: Heart size at the upper limits of normal. Pulmonary vessels normal. Lungs are clear. No pleural effusion. No pneumothorax. Impression: Impression: 1. No acute cardiopulmonary disease. Electronically Signed: Arben Neely MD 11/12/2024 7:02 PM EDT Workstation ID: [id number] Assessment & Plan Assessment & Plan Respiratory [...] scheduled nebs -pt follows w/ Pulmonary in [place]- seen this week and referred to Cardiology [...] Patient apparently was seen by pulmonology in [place] and was told that her lungs were [...] MODERATE BY ECHO Aortic regurgitation MODERATE BY [facility] ECHO Arthritis Asthma Chronic respiratory [...] RECORDER PLACEMENT: 11/06/2018- AE. LOOP RECORDER SERIAL #[id number] SINUS SURGERY Family History Problem Relation Age [...] Patient apparently was seen by pulmonology in [place] and was told that her lungs were [...] further evaluation per primary team or appropriate customer care voice consultant. 5. For SMOOTH on CPAP: Continue CPAP. 6. For acute on chronic hypoxemic respiratory failure: Back to baseline oxygen requirement after diuresis. Continue supplemental oxygen. Wean as tolerated. Electronically signed by: Michele Sanchez MD 11/13/24 18:31 EDT *. Please note that portions of this note were completed with [employer] - a voice recognition program. * Christy [...] has history of COPD with greater than 54-snzj-gels history of smoking. Quit 1 year ago. She encountered COVID several years ago followed by bilateral pulmonary atelectasis and chronic respiratory failure requiring home O2. She has mild to moderate aortic insufficiency on 2D echocardiogram from 2022 which was performed in [place]. Her last echo was over 2 years [...] MODERATE BY ECHO Aortic regurgitation MODERATE BY [facility] ECHO Arthritis Asthma Chronic venous [...] RECORDER PLACEMENT: 11/06/2018- AE. LOOP RECORDER SERIAL #[id number] SINUS SURGERY , Family History Problem Relation Age of Onset Coronary artery disease Mother Heart attack Mother Hyperlipidemia Father Hypertension Father , and Allergies: Celecoxib, Hydrocodone, Cipro [ciprofloxacin hcl], Dexamethasone, Gabapentin, Levofloxacin, Nitrofurantoin, Nortriptyline, Poison oak extract, Repatha [evolocumab], and Wound dressing adhesive Physical Exam Vitals and nursing note reviewed. Exam conducted with a payroll secretary present. HENT: Mouth/Throat: Mouth: Mucous membranes are [...] Plan 1-acute on chronic hypoxic respiratory failure -73-fcrl-abnr history of smoking-stopped last year -Likely COPD [...] room provided Taken 11/14/2024 0800 by Jill Atlamirano RN Infection Prevention: cohorting utilized environmental surveillance [...] wnl. Cardiolgy following, still monitor I&O's * Libretad Urbano, PT - 11/14/2024 7:40 AM EDT [...] Documentation Taken 11/13/2024 0800 by Jill Altamirano RNpediatric dental assistant Interventions: no interventions per patient request Intervention: [...] on Bumex, who was sent by her adult protective caseworker for worsening leg swelling and dyspnea. This [...] MODERATE BY ECHO Aortic regurgitation MODERATE BY [facility] ECHO Arthritis Asthma Chronic venous [...] RECORDER PLACEMENT: 11/06/2018- AE. LOOP RECORDER SERIAL #[id number] SINUS SURGERY FAMILY HISTORY Family History Problem [...] pH, UA 5.5 5.0 - 8.0 Specific [place], UA >1.030 (H) 1.005 - 1.030 Glucose, [...] MD 11/12/2024 8:31 PM EDT Workstation ID: [id number] XR Chest 1 View Result Date: 11/12/2024 XR CHEST 1 VW Date of Exam: 11/12/2024 6:28 PM EDT Indication: SOA triage protocol. Comparison: 07/16/2024 Findings: Heart size at the upper limits of normal. Pulmonary vessels normal. Lungs are clear. No pleural effusion. No pneumothorax. Impression: 1. No acute cardiopulmonary disease. Electronically Signed: Arben Neely MD 11/12/2024 7:02 PM EDT Workstation ID: [id number] I ordered and independently reviewed the above [...] [address] Angiogram Chest Pulmonary Embolism Emery Draw Comprehensive Metabolic Panel BNP High Sensitivity [...] on Bumex, who was sent by her adult protective caseworker for worsening leg swelling and dyspnea. This [...] 80s. I have contacted Dr. Kirk her adult protective caseworker who agrees with admission does not want any special orders at this time but will evaluate in the morning. Hospitalist team consulted for admission. [CC] ED Course User Index [CC] Vasu Mckeon MD Shared Decision Making: After my consideration of clinical presentation and any laboratory/radiology studies obtained, I discussed the findings with the patient/patient access representative who is in agreement with the treatment plan and the final disposition. Risks and benefits of discharge and/or observation/admission were discussed. OF 01:41 EDT VITALS: BP - 95/49 HR - 87 TEMP - 97.8 ??F (36.6 ??C) (Oral) O2 SATS - 95% DIAGNOSIS Final diagnoses: Referred by health home care nurse Dyspnea on exertion Chronic respiratory failure with [...] 11/13/2024 2:31 PM EDT Discharge Planning Assessment [facility] Patient Name: Casi Cruz Today's Date: [...] Name 11/13/24 1426 Plan Plan Home at OR Patient/Family in Agreement with Plan yes Plan Comments Spoke with patient at the bedside. Patient lives alone in a home in [facility]. Wears 2L of oxygen and CPAP provided by [facility]. Independent and ambulates with a straight cane as needed. Not current with and outpatient services. PCP is Sandra Orozco APRN. Pharmacy is [facility]. Insurance is Medicare A & B. Plan is home at [place] and has transportation. Denies concerns and needs [...] Office Visit [facility] [address] [address] Dina Solano APRN [address] [place] [address] documented as of this encounter Procedures Procedure [...] EDT RESPIRATORY PANEL PCR W/ COVID-19 (SARS-COV-2), SALVAGE WINDER SWAB IN UTM/VTP, 2 HR TAT Routine 11/13/2024 3:26 AM EDT BLOOD GAS, VENOUS W/CO-OXIMETRY STAT 11/12/2024 11:[address] ANGIOGRAM CHEST PULMONARY EMBOLISM STAT 11/12/2024 7:46 PM EDT COVID-19/FLUA&B/RSV, SALVAGE WINDER SWAB IN TRANSPORT MEDIA 1 HR TAT [...] AND COLOR FLOW (11/14/2024 11:32 AM EDT) [facility] EF(MOD-bp) 72.2 % LVIDd 4.3 cm LVIDs 2.7 cm IVSd 0.80 cm LVPWd 0.90 cm FS 36.5 % IVS/LVPW 0.89 cm ESV(cubed) 19.7 ml LV Sys Vol (BSA corrected) 14.7 cm2 EDV(cubed) 76.8 ml LV Sipmson Vol (BSA corrected) 50.2 cm2 LV mass(C)d [...] - 10.80 10*3/mm3 11/13/2024 12:36 PM EDT [facility] RBC 3.89 3.77 - 5.28 10*6/mm3 11/13/2024 12:36 PM EDT [facility] Hemoglobin 8.1(L) 12.0 - 15.9 g/dL 11/13/2024 12:36 PM EDT [facility] Hematocrit 29.1(L) 34.0 - 46.6 % 11/13/2024 12:36 PM EDT [facility] MCV 74.8(L) 79.0 - 97.0 fL 11/13/2024 12:36 PM EDT [facility] MCH 20.8(L) 26.6 - 33.0 pg 11/13/2024 12:36 PM EDT [facility] MCHC 27.8(L) 31.5 - 35.7 g/dL 11/13/2024 12:36 PM EDT [facility] RDW 19.0(H) 12.3 - 15.4 % 11/13/2024 12:36 PM EDT [facility] RDW-SD 51.3 37.0 - 54.0 fl 11/13/2024 12:36 PM EDT [facility] MPV 9.8 6.0 - 12.0 fL 11/13/2024 12:36 PM EDT [facility] Platelets 227 140 - 450 10*3/mm3 11/13/2024 12:36 PM EDT [facility] Neutrophil % 63.6 42.7 - 76.0 % 11/13/2024 12:36 PM EDT [facility] Lymphocyte % 23.3 19.6 - 45.3 % 11/[facility]24 12[facility] Monocyte % 8.9 5.0 - 12.0 % 11/13/2024 12:36 PM [facility] Eosinophil % 2.8 0.3 - 6.2 % 11/13/2024 12:36 PM [facility] Basophil % 0.7 0.0 - 1.5 % 11/13/2024 12:36 PM EDT [facility] Immature Grans % 0.7(H) 0.0 - 0.5 % 11/13/2024 12:36 PM [facility] Neutrophils, Absolute 3.44 1.70 - 7.00 10*3/mm3 11/13/2024 12:36 [facility] Lymphocytes, Absolute 1.26 0.70 - 3.10 10*3/mm3 11/13/2024 12:36 PM [facility] Monocytes, Absolute 0.48 0.10 - 0.90 10*3/mm3 11/13/2024 12:36 PM [facility] Eosinophils, Absolute 0.15 0.00 - 0.40 10*3/mm3 11/13/2024 12:36 PM EDT [facility] Basophils, Absolute 0.04 0.00 - 0.20 10*3/mm3 11/13/2024 12:36 PM [facility] Immature Grans, Absolute 0.04 0.00 - 0.05 10*3/mm3 11/13/2024 12:36 PM [facility] nRBC 0.0 0.0 - 0.2 /100 WBC 11/13/2024 12:36 PM EDT [facility] Blood Venipuncture / Unknown 11/13/2024 12:07 PM EDT 11/13/2024 12:26 PM EDT Aaliyah Abhijeet MIRANDA LAB BLOOD ORDERABLES Final Re sult [facility]
[address] [place] [address], * (ABNORMAL) Reticulocytes (11/13/2024 12:07 PM EDT) Pathologist [facility] Reticulocyte % 2.78(H) 0.70 - 1.90 % 11/13/2024 12:32 PM EDT [facility] Reticulocyte Absolute 0.1081 0.0200 - 0.1300 10*6/mm3 11/13/2024 12:32 PM EDT [facility] Blood Venipuncture / Unknown 11/13/2024 12:07 PM EDT 11/13/2024 12:26 PM EDT Aaliyah Jha APRN LAB BLOOD ORDERABLES Final Re sult Performing Organization Address City/[facility]/ZIP Co de Phone Number [facility]
[address] [place] [address], * Folate RBC (11/13/2024 12:07 PM EDT) Folate, Hemolysate 538.0 Not Estab. ng/mL 11/16/2024 9:09 AM EDT [facility] Hematocrit 40.7 34.0 - 46.6 % 11/16/2024 9:09 AM EDT [facility] RBC Folate 1322 >498 ng/mL 11/16/2024 9:09 AM EDT [facility] Blood Venipuncture / Unknown 11/13/2024 12:07 PM EDT 11/13/2024 12:26 PM EDT Narrative [facility] - 11/16/2024 9:09 AM EDT Performed at: [address] [place] [id number] Biological Plant Operator: Gomez Crooks PhD, Phone: [phone] Aaliyah Jha APRN LAB BLOOD ORDERABLES Edited R esult - Final Performing Organization Address City/[facility]/ZIP Co de Phone Number [facility] [address] [place] [address], [place] [phone] * TSH (11/13/2024 12:07 PM EDT) TSH 2.770 0.270 - 4.200 uIU/mL 11/13/2024 12:56 PM EDT [facility] Blood Venipuncture / Unknown 11/13/2024 12:07 PM EDT 11/13/2024 12:26 PM EDT Aaliyah Jha APRN LAB BLOOD ORDERABLES Final Re sult Performing Organization Address City/[facility]/ZIP Co de Phone Number [facility]
[address] [place] [address], [place] [phone] * (ABNORMAL) Hemoglobin A1c (11/13/2024 12:07 PM EDT) Hemoglobin A1C 5.84(H) 4.80 - 5.60 % 11/13/2024 1:23 PM EDT [facility] Blood Venipuncture / Unknown 11/13/2024 12:07 PM EDT 11/13/2024 12:26 PM EDT Narrative [facility] - 11/13/2024 1:23 PM EDT Hemoglobin A1C Ranges: Increased Risk for Diabetes 5.7% to 6.4% Diabetes >= 6.5% Diabetic Goal < 7.0% Aaliyah Abhijeet SUPERVISOR GRINDING LAB BLOOD ORDERABLES Final Re sult Performing Organization Address City/[facility]/ZIP Co de Phone Number [facility]
[address] [place] [address], * Magnesium (11/13/2024 12:07 PM EDT) Magnesium 1.9 1.6 - 2.4 mg/dL 11/13/2024 12:56 PM EDT [facility] Blood Venipuncture / Unknown 11/13/2024 12:07 PM EDT 11/13/2024 12:26 PM EDT Aaliyah Jha APRN LAB BLOOD ORDERABLES Final Re sult Performing Organization Address [facility] Co de Phone Number [facility]
[address] [place] [address], * (ABNORMAL) Basic Metabolic Panel (11/13/2024 12:07 PM EDT) Glucose 100(H) 65 - 99 mg/dL 11/13/2024 12:56 PM EDT [facility] BUN 19.7 8.0 - 23.0 mg/dL 11/13/2024 12:56 PM EDT [facility] Creatinine 0.93 0.57 - 1.00 mg/dL 11/13/2024 12:56 PM EDT [facility] Sodium 143 136 - 145 mmol/L 11/13/2024 12:56 PM EDT [facility] Potassium 3.8 3.5 - 5.2 mmol/L 11/13/2024 12:56 PM EDT [facility] Chloride 102 98 - 107 mmol/L 11/13/2024 12:56 PM EDT [facility] CO2 31.1(H) 22.0 - 29.0 mmol/L 11/13/2024 12:56 PM EDT [facility] Calcium 8.6 8.6 - 10.5 mg/dL 11/13/2024 12:56 PM EDT [facility] [facility] BUN/Creatinine Ratio 21.2 7.0 - 25.0 11/13/2024 12:56 PM EDT [facility] Anion Gap 9.9 5.0 - 15.0 mmol/L 11/13/2024 12:56 PM EDT [facility] eGFR 67.9 >60.0 mL/min/1.7 3 11/13/2024 12:56 PM EDT [facility] Blood Venipuncture / Unknown 11/13/2024 12:07 PM EDT 11/13/2024 12:26 PM EDT Narrative [facility] - 11/13/2024 12:56 PM EDT GFR [...] race as a factor us Aaliyah Jha SUPERVISOR [employer] LAB BLOOD ORDERABLES Final Re sult [facility]
[address] [place] [address], * Duplex Venous Lower Extremity - Bilateral [...] 12 Lead Dyspnea (11/13/2024 5:53 AM EDT) [facility] QT Interval 410 ms ECG QTC [...] change was found Confirmed by ABDULLAHI HENDRICKSON ([id number]) on 11/13/2024 7:39:07 PM Referred By: Confirmed [...] change was found Confirmed by ABDULLAHI HENDRICKSON ([id number]) on 11/13/2024 7:39:07 PM Referred By: Confirmed By: ABDULLAHI HENDRICKSON Aaliyah Jha APRN ECG ORDERABLES Final Result ECG * Respiratory Panel PCR w/COVID-19(SARS-CoV-2) SIDRA/CHECO/SAUD/PAD/COR/ERIC In-House, [facility]INDER Swab in UTM/VTM, 2 HR TAT - Swab, Nasopharynx (11/13/2024 3:26 AM EDT) ADENOVIRUS, PCR Not Detected Not Detected [facility] 11/13/2024 4:48 AM EDT [facility] Coronavirus 229E Not Detected Not Detected [facility] 11/13/2024 4:48 AM EDT [facility] Coronavirus HKU1 Not Detected Not Detected [facility] 11/13/2024 4:48 AM EDT [facility] Coronavirus NL63 Not Detected Not Detected [facility] 11/13/2024 4:48 AM EDT [facility] Coronavirus OC43 Not Detected Not Detected [facility] 11/13/2024 4:48 AM EDT [facility] COVID19 Not Detected Not Detected - Ref. Range [facility] 11/13/2024 4:48 AM EDT [facility] Human Metapneumovirus Not Detected Not Detected [facility] 11/13/2024 4:48 AM EDT [facility] Human Rhinovirus/Enterov irus Not Detected Not Detected [facility] 11/13/2024 4:48 AM EDT [facility] Influenza A PCR Not Detected Not Detected [facility] 11/13/2024 4:48 AM EDT [facility] Influenza B PCR Not Detected Not Detected [facility] 11/13/2024 4:48 AM EDT [facility] Parainfluenza Virus 1 Not Detected Not Detected [facility] 11/13/2024 4:48 AM EDT [facility] Parainfluenza Virus 2 Not Detected Not Detected [facility] 11/13/2024 4:48 AM EDT [facility] Parainfluenza Virus 3 Not Detected Not Detected [facility] 11/13/2024 4:48 AM EDT [facility] Parainfluenza Virus 4 Not Detected Not Detected [facility] 11/13/2024 4:48 AM EDT [facility] RSV, PCR Not Detected Not Detected [facility] 11/13/2024 4:48 AM EDT [facility] Bordetella pertussis pcr Not Detected Not Detected [facility] 11/13/2024 4:48 AM EDT [facility] Bordetella parapertussis PCR Not Detected Not Detected [facility] 11/13/2024 4:48 AM EDT [facility] Chlamydophila pneumoniae PCR Not Detected Not Detected [facility] 11/13/2024 4:48 AM EDT [facility] Mycoplasma pneumo by PCR Not Detected Not Detected [facility] 11/13/2024 4:48 AM EDT [facility] Swab Nasopharyngeal structure / Unknown Collection [...] MICROBIOLOGY - GENERAL ORDERA BLES Final Result [facility]
[address] [place] [address], * (ABNORMAL) Blood Gas, Venous With Co-Ox (11/12/2024 11:16 PM EDT) Site Nurse/Dr Draw 11/12/2024 11:17 PM EDT [facility] pH, Venous 7.337 7.310 - 7.410 pH Units 11/12/2024 11:17 PM EDT [facility] pCO2, Venous 59.6(H) 41.0 - 51.0 mm Hg 11/12/2024 11:17 PM EDT [facility] Comment:83 Value above refer ence range pO2, Venous 30.4 27.0 - 53.0 mm Hg 11/12/2024 11:17 PM EDT [facility] HCO3, Venous 31.9(H) 22.0 - 28.0 mmol/L 11/12/2024 11:17 PM EDT [facility] Base Excess, Venous 5.0(H) -2.0 - 2.0 mmol/L 11/12/2024 11:17 PM EDT [facility] Hemoglobin, Blood Gas 9.3(L) 14 - 18 g/dL 11/12/2024 11:17 PM EDT [facility] Oxyhemoglobin Venous 48.3 % 06/2024 11:17 PM EDT [facility] Methemoglobin Venous 0.4 % 06/2024 11:17 PM EDT [facility] Carboxyhemoglobin Venous 1.7 % 11/12/2024 11:17 PM EDT [facility] CO2 Content 33.7(H) 22 - 33 mmol/L 11/12/2024 11:17 PM EDT [facility] Temperature 37.0 11/12/2024 11:17 PM EDT [facility] Barometric Pressure for Blood Gas 11/12/2024 11:17 PM EDT [facility] Comment:N/A Modality Nasal Cannula 11/12/2024 11:17 PM EDT [facility] FIO2 28 % 11/12/2024 11:17 PM EDT [facility] Rate 0 Breaths/ minute 11/12/2024 11:17 PM EDT [facility] PIP 0 cmH2O 11/12/2024 11:17 PM EDT [facility] Comment:Meter: [id number] Forestry Engineer: [id number] IPAP 0 11/12/2024 11:17 PM EDT [facility] EPAP 0 11/12/2024 11:17 PM EDT [facility] Venous Blood 11/12/2024 11:1 6 PM EDT 11/12/2024 11:16 PM EDT us Vasu Mckeon MD LAB BLOOD ORDERABLES Fin al Result [facility]
[address] [place] [address], * CT Angiogram Chest Pulmonary Embolism (11/12/2024 7:46 PM EDT) Anatomical Region Laterality Modality Chest N/A Computed Tomogra phy 11/12/2024 8:22 PM EDT Impressions 11/12/2024 8:31 PM EDT No evidence of pulmonary embolus. No acute abnormality. Electronically Signed: Jed Machuca MD 11/12/2024 8:31 PM EDT Workstation ID: [id number] Hermann 11/12/2024 8:[address] ANGIOGRAM [...] MD 11/12/2024 8:31 PM EDT Workstation ID: [id number] Vasu Mckeon MD IMG CT ORDERABLES Final Result * COVID-19, FLU A/B, RSV PCR 1 HR TAT - Swab, Nasopharynx (11/12/2024 7:21 PM EDT) Pathologist [facility] COVID19 Not Detected Not Detected - Ref. Range CEPHEID GENEXPERT 11/12/2024 8:24 PM EDT [facility] Influenza A PCR Not Detected Not Detected [facility]EXP[facility] 11/12/2024 8:24 PM EDT [facility] Influenza B PCR Not Detected Not Detected [facility]EXP[facility] 11/12/2024 8:24 PM EDT [facility] RSV, PCR Not Detected Not Detected CEPHEID GENEXP[facility] 11/12/2024 8:24 PM EDT [facility] Swab Nasopharyngeal structure / Unknown Collection / Unknown 11/12/2024 7:21 PM EDT 11/12/2024 7:46 PM EDT Vasu Mckeon MD MICROBIOLOGY - GENERAL O RDERABLES Final Result [facility]
[address] [place] [address], * Sodium, Urine, Random - Urine, Clean Catch (11/12/2024 7:20 PM EDT) Pathologist [facility] Sodium, Urine <20 mmol/L 11/13/2024 3:37 AM EDT [facility] Urine Urine specimen obtained by clean catch procedure / Unknown Collection / Unknown 11/12/2024 7:20 PM EDT 11/12/2024 7:46 PM EDT [facility] - 11/13/2024 3:37 AM EDT Reference intervals for random urine have not been established. Clinical usage is dependent upon physician's interpretation in combination with other laboratory tests. us Aaliyah Jha APRN URINE ORDERABLES Final Result [facility]
[address] [place] [address], * Osmolality, Urine - Urine, Clean Catch (11/12/2024 7:20 PM EDT) Osmolality, Urine 837 300 - 1,100 mOsm/kg 11/13/2024 4:00 AM EDT [facility] Urine Urine specimen obtained by clean catch procedure / Unknown Collection / Unknown 11/12/2024 7:20 PM EDT 11/12/2024 7:46 PM EDT us Aaliyah Jha APRN URINE ORDERABLES Final Result [facility]
[address] [place] [address], * Creatinine Urine Random (kidney function) GFR component - Urine, Clean Catch (11/12/2024 7:20 PM EDT) Creatinine, Urine 276.6 mg/dL 11/13/2024 9:46 AM EDT [facility] Urine Urine specimen obtained by clean catch procedure / Unknown Collection / Unknown 11/12/2024 7:20 PM EDT 11/13/2024 3:13 AM EDT [facility] - 11/13/2024 9:46 AM EDT Reference intervals for random urine have not been established. Clinical usage is dependent upon physician's interpretation in combination with other laboratory tests. us Aaliyah Jha APRN URINE ORDERABLES Final Result Performing Organization Address City/[facility]/ZIP Co de Phone Number [facility]
[address] [place] [address], * Urine Culture - Urine, Urine, Clean Catch (11/12/2024 7:20 PM EDT) Urine Culture No growth [id number] 11/14/2024 12:26 PM EDT [facility] Urine Urine specimen obtained by clean catch procedure / Unknown Collection / Unknown 11/12/2024 7:20 PM EDT 11/13/2024 12:57 AM EDT Vasu Mckeon MD MICROBIOLOGY - GENERAL O RDERABLES Final Result Performing Organization Address City/[facility]/ZIP Co de Phone Number [facility]
[address] [place] [address], * (ABNORMAL) Urinalysis, Microscopic Only - Urine, Clean Catch (11/12/2024 7:20 PM EDT) RBC, UA 0-2 None Seen, 0-2 /HPF 11/12/2024 8:00 PM EDT [facility] WBC, UA 11-20(A) None Seen, 0-2 /HPF 11/12/2024 8:00 PM EDT [facility] Bacteria, UA None Seen None Seen /HPF 11/12/2024 8:00 PM EDT [facility] Squamous Epithelial Cells, UA 3-6(A) None Seen, 0-2 /HPF 11/12/2024 8:00 PM EDT [facility] Hyaline Casts, UA 0-2 None Seen /LPF 11/12/2024 8:00 PM EDT [facility] Methodology Automated Microscopy 11/12/2024 8:00 PM EDT [facility] Urine Urine specimen obtained by clean catch procedure / Unknown Collection / Unknown 11/12/2024 7:20 PM EDT 11/12/2024 7:46 PM EDT us Vasu Mckeon MD URINE ORDERABLES Final R esult [facility]
[address] [place] [address], * (ABNORMAL) Urinalysis With Microscopic If Indicated (No Culture) - Urine, Clean Catch (11/12/2024 7:20 PM EDT) Color, UA Yellow Yellow, Straw 11/12/2024 8:00 PM EDT [facility] Appearance, UA Clear Clear 11/12/2024 8:00 PM EDT [facility] pH, UA 5.5 5.0 - 8.0 11/12/2024 8:00 PM EDT [facility] Specific [place], UA >1.030(H) 1.005 - 1.030 11/12/2024 8:00 PM EDT [facility] Glucose, UA Negative Negative 11/12/2024 8:00 PM EDT [facility] Ketones, UA Negative Negative 11/12/2024 8:00 PM EDT [facility] Bilirubin, UA Negative Negative 11/12/2024 8:00 PM EDT [facility] Blood, UA Negative Negative 11/12/2024 8:00 PM EDT [facility] Protein, UA Trace(A) Negative 11/12/2024 8:00 PM EDT [facility] Leuk Esterase, UA Small (1+)(A) Negative 11/12/2024 8:00 PM EDT [facility] Nitrite, UA Negative Negative 11/12/2024 8:00 PM EDT [facility] Urobilinogen, UA 1.0 E.U./dL 0.2 - 1.0 E.U./dL 11/12/2024 8:00 PM EDT [facility] Urine Urine specimen obtained by clean catch procedure / Unknown Collection / Unknown 11/12/2024 7:20 PM EDT 11/12/2024 7:46 PM EDT Vasu Mckeon MD URINE ORDERABLES Final R esult [facility]
[address] [place] [address], * Ferritin (11/12/2024 7:16 PM EDT) Ferritin 13.80 13.00 - 150.00 ng/mL 11/13/2024 3:24 AM EDT [facility] Blood Venipuncture / Unknown 11/12/2024 7:16 PM EDT 11/13/2024 2:57 AM EDT Narrative [facility] - 11/13/2024 3:24 AM EDT Results may be falsely decreased if patient taking Biotin. Aaliyah Jha APRN LAB BLOOD ORDERABLES Final Re sult Performing Organization Address City/[facility]/ZIP Co de Phone Number [facility]
[address] [place] [address], * (ABNORMAL) Iron Profile w/o Ferritin (11/12/2024 7:16 PM EDT) Iron 21(L) 37 - 145 mcg/dL 11/13/2024 3:24 AM EDT [facility] Iron Saturation (TSAT) 4(L) 20 - 50 % 11/13/2024 3:24 AM EDT [facility] Transferrin 321 200 - 360 mg/dL 11/13/2024 3:24 AM EDT [facility] TIBC 478 298 - 536 mcg/dL 11/13/2024 3:24 AM EDT [facility] Blood Venipuncture / Unknown 11/12/2024 7:16 PM EDT 11/13/2024 2:57 AM EDT Aaliyahcolleen Jha APRN LAB BLOOD ORDERABLES Final Re sult Performing Organization Address [facility] Co de Phone Number [facility]
[address] [place] [address], * (ABNORMAL) High Sensitivity Troponin T 1Hr (11/12/2024 7:16 PM EDT) HS Troponin T 16(H) <14 ng/L 11/12/2024 7:53 PM EDT [facility] Troponin T Numeric Delta -1 ng/L 11/12/2024 7:53 PM EDT [facility] Troponin T % Delta -6 Abnormal if >/= 20% 11/12/2024 7:53 PM EDT [facility] Blood Line / Unknown 11/12/2024 7: 16 PM EDT 11/12/2024 7:20 PM EDT Narrative [facility] - 11/12/2024 7:53 PM EDT High [...] ORDERABLES Fin al Result Performing Organization Address [facility]/ZIP Co de Phone Number [facility]
[address] [place] [address], * XR Chest 1 View (11/12/2024 6:30 PM EDT) Anatomical Region Laterality Modality Body N/A Radiographic Tatyana ging 11/12/2024 7:00 PM EDT Impressions 11/12/2024 7:02 PM EDT Impression: 1. No acute cardiopulmonary disease. Electronically Signed: Arben Neely MD 11/12/2024 7:02 PM EDT Workstation ID: [id number] Narrative 11/12/2024 7:02 PM EDT XR CHEST [...] MD 11/12/2024 7:02 PM EDT Workstation ID: [id number] Vasu Mckeon MD IMG DIAGNOSTIC IMAGING O RDERABLES Final Result * (ABNORMAL) Vitamin B12 (11/12/2024 5:17 PM EDT) [facility] Vitamin B-12 1,669(H) 211 - 946 pg/mL 11/13/2024 9:54 AM EDT [facility] Blood Venipuncture / Unknown 11/12/2024 5:17 PM EDT 11/13/2024 2:59 AM EDT Narrative [facility] - 11/13/2024 9:54 AM EDT Results may be falsely increased if patient taking Biotin. Aaliyah Jha APRN LAB BLOOD ORDERABLES Final Re sult [facility]
[address] [place] [address], * Folate (11/12/2024 5:17 PM EDT) [facility] Folate >20.00 4.78 - 24.20 ng/mL 11/13/2024 9:54 AM EDT [facility] Blood Venipuncture / Unknown 11/12/2024 5:17 PM EDT 11/13/2024 2:59 AM EDT Narrative [facility] - 11/13/2024 9:54 AM EDT Results may be falsely increased if patient taking Biotin. Aaliyah Jha APRN LAB BLOOD ORDERABLES Final Re sult [facility]
[address] [place] [address], * Scan Slide (11/12/2024 5:17 PM EDT) Anisocytosis Slight/1+ None Seen 11/12/2024 6:07 PM EDT [facility] Hypochromia Slight/1+ None Seen 11/12/2024 6:07 PM EDT [facility] Microcytes Mod/2+ None Seen 11/12/2024 6:07 PM EDT [facility] WBC Morphology Normal Normal 11/12/2024 6:07 PM EDT [facility] Platelet Morphology Normal Normal 11/12/2024 6:07 PM EDT [facility] Blood Venipuncture / Unknown 11/12/2024 5:17 PM EDT 11/12/2024 5:17 PM EDT Vasu Mckeon MD LAB BLOOD ORDERABLES Fin al Result [facility]
[address] [place] [address], [place] [phone] * Magnesium (11/12/2024 5:17 PM EDT) Magnesium 1.9 1.6 - 2.4 mg/dL 11/12/2024 5:51 PM EDT [facility] Blood Venipuncture / Unknown 11/12/2024 5:17 PM EDT 11/12/2024 5:17 PM EDT Vasu Mckeon MD LAB BLOOD ORDERABLES Fin al Result Performing Organization Address City/[facility]/ZIP Co de Phone Number [facility]
[address] [place] [address], * Phosphorus (11/12/2024 5:17 PM EDT) Phosphorus 4.1 2.5 - 4.5 mg/dL 11/12/2024 5:51 PM EDT [facility] Blood Venipuncture / Unknown 11/12/2024 5:17 PM EDT 11/12/2024 5:17 PM EDT Vasu Mckeon MD LAB BLOOD ORDERABLES Fin al Result Performing Organization Address [facility] Co de Phone Number [facility]
[address] [place] [address], * TSH Rfx On Abnormal To Free T4 (11/12/2024 5:17 PM EDT) TSH 2.480 0.270 - 4.200 uIU/mL 11/12/2024 5:51 PM EDT [facility] Blood Venipuncture / Unknown 11/12/2024 5:17 PM EDT 11/12/2024 5:17 PM EDT Vasu Mckeon MD LAB BLOOD ORDERABLES Fin al Result Performing Organization Address City/[facility]/ZIP Co de Phone Number [facility]
[address] [place] [address], * Lipase (11/12/2024 5:17 PM EDT) Lipase 20 13 - 60 U/L 11/12/2024 5:51 PM EDT [facility] Blood Venipuncture / Unknown 11/12/2024 5:17 PM EDT 11/12/2024 5:17 PM EDT Vasu Mckeon MD LAB BLOOD ORDERABLES Fin al Result Performing Organization Address [facility] Phone Number [facility]
[address] [place] [address], * Lactic Acid, Plasma (11/12/2024 5:17 PM EDT) [facility] Lactate 1.6 0.5 - 2.0 mmol/L 11/12/2024 5:49 PM EDT [facility] Comment:Falsely depressed re sults may occur on samples drawn from patients receiving N-Acetylcysteine (NAC) or Metamizole. Blood Venipuncture / Unknown 11/12/2024 5:17 PM EDT 11/12/2024 5:17 PM EDT Vasu Mckeon MD LAB BLOOD ORDERABLES Fin al Result Performing Organization Address [facility] Phone Number [facility]
[address] [place] [address], * (ABNORMAL) D-dimer, Quantitative (11/12/2024 5:17 PM EDT) [facility] D-Dimer, Quantitative 10.36(H) 0.00 - 0.66 MCGFEU/mL 11/12/2024 6:00 PM EDT [facility] Blood Venipuncture / Unknown 11/12/2024 5:17 PM EDT 11/12/2024 5:17 PM EDT Narrative [facility] - 11/12/2024 6:00 PM EDT According to the assay shank boner's published package insert, a normal (<0.50 MCGFEU/mL) D-dimer result in conjunction with a non-high clinical probability assessment, excludes deep vein thrombosis (DVT) and pulmonary embolism (PE) with high sensitivity. D-dimer values increase with age and this can make VTE exclusion of an older population difficult. To address this, the [employer], based on best available [...] MCGFEU/mL. Vasu Mckeon MD LAB BLOOD ORDERABLES [facility] al Result [facility]
[address] [place] [address] * (ABNORMAL) CBC Auto Differential (11/12/2024 5:17 PM EDT) [facility] WBC 5.82 3.40 - 10.80 10*3/mm3 11/12/2024 6:07 PM EDT [facility] RBC 4.33 3.77 - 5.28 10*6/mm3 11/12/2024 6:07 PM EDT [facility] Hemoglobin 9.0(L) 12.0 - 15.9 g/dL 11/12/2024 6:07 PM EDT [facility] Hematocrit 32.5(L) 34.0 - 46.6 % 11/12/2024 6:07 PM EDT [facility] MCV 75.1(L) 79.0 - 97.0 fL 11/12/2024 6:07 PM EDT [facility] MCH 20.8(L) 26.6 - 33.0 pg 11/12/2024 6:07 PM EDT [facility] MCHC 27.7(L) 31.5 - 35.7 g/dL 11/12/2024 6:07 PM EDT [facility] RDW 19.1(H) 12.3 - 15.4 % 11/12/2024 6:07 PM EDT [facility] RDW-SD 51.8 37.0 - 54.0 fl 11/12/2024 6:07 PM EDT [facility] MPV 9.5 6.0 - 12.0 fL 11/12/2024 6:07 PM EDT [facility] Platelets 240 140 - 450 10*3/mm3 11/12/2024 6:07 PM EDT [facility] Neutrophil % 58.8 42.7 - 76.0 % 11/12/2024 6:07 PM EDT [facility] Lymphocyte % 26.5 19.6 - 45.3 % 11/12/2024 6:07 PM EDT [facility] Monocyte % 7.6 5.0 - 12.0 % 11/12/2024 6:07 PM EDT [facility] Eosinophil % 5.5 0.3 - 6.2 % 11/12/2024 6:07 PM EDT [facility] Basophil % 0.7 0.0 - 1.5 % 11/12/2024 6:07 PM EDT [facility] Immature Grans % 0.9(H) 0.0 - 0.5 % 11/12/2024 6:07 PM EDT [facility] Neutrophils, Absolute 3.43 1.70 - 7.00 10*3/mm3 11/12/2024 6:07 PM EDT [facility] Lymphocytes, Absolute 1.54 0.70 - 3.10 10*3/mm3 11/12/2024 6:07 PM EDT [facility] Monocytes, Absolute 0.44 0.10 - 0.90 10*3/mm3 11/12/2024 6:07 PM EDT [facility] Eosinophils, Absolute 0.32 0.00 - 0.40 10*3/mm3 11/12/2024 6:07 PM EDT [facility] Basophils, Absolute 0.04 0.00 - 0.20 10*3/mm3 11/12/2024 6:07 PM EDT [facility] Immature Grans, Absolute 0.05 0.00 - 0.05 10*3/mm3 11/12/2024 6:07 PM EDT [facility] nRBC 0.0 0.0 - 0.2 /100 WBC 11/12/2024 6:07 PM EDT [facility] Blood Venipuncture / Unknown 11/12/2024 5:17 PM EDT 11/12/2024 5:17 PM EDT Narrative [facility] - 11/12/2024 6:07 PM EDT Appended report. These results have been appended to a previously verified report. Vasu Mckeon MD LAB BLOOD ORDERABLES Fin al Result [facility]
[address] [place] [address], * Light Blue Top (11/12/2024 5:17 PM EDT) Extra Tube Hold for add-ons. 11/12/2024 5:31 PM EDT [facility] Comment:Auto resulted Blood Venipuncture / Unknown 11/12/2024 5:17 PM EDT 11/12/2024 5:17 PM EDT Vasu Mckeon MD LAB BLOOD ORDER ONLY Fin al Result [facility]
[address] [place] [address], * [place] Top (11/12/2024 5:17 PM EDT) Extra Tube Hold for add-ons. 11/[facility]2024 5:[facility]:Auto resulted. Blood Venipuncture / Unknown 11/12/2024 5:17 PM EDT 11/12/2024 5:17 PM EDT Vasu Mckeon MD LAB BLOOD ORDER ONLY Fin al Result Performing Organization Address City/[facility]/ZIP Co de Phone Number [facility]
[address] [place] [address], [place] [phone] * Gold Top - SST (11/12/2024 5:17 PM EDT) Extra Tube Hold for add-ons. 11/12/2024 5:32 PM EDT [facility] Comment:Auto resulted. Blood Venipuncture / Unknown 11/12/2024 5:17 PM EDT 11/12/2024 5:17 PM EDT Vasu Mckeon MD LAB BLOOD ORDER ONLY Fin al Result Performing Organization Address [facility] Co de Phone Number [facility]
[address] [place] [address], [place] [phone] * Lavender Top (11/12/2024 5:17 PM EDT) Extra Tube hold for add-on 11/12/2024 5:31 PM EDT [facility] Comment:Auto resulted Blood Venipuncture / Unknown 11/12/2024 5:17 PM EDT 11/12/2024 5:17 PM EDT Vasu Mckeon MD LAB BLOOD ORDER ONLY Fin al Result Performing Organization Address City/[facility]/ZIP Co de Phone Number [facility]
[address] [place] [address], [place] [phone] * Green Top (Gel) (11/12/2024 5:17 PM EDT) Extra Tube Hold for add-ons. 11/12/2024 5:31 PM EDT [facility] Comment:Auto resulted. Blood Venipuncture / Unknown 11/12/2024 5:17 PM EDT 11/12/2024 5:17 PM EDT Vasu Mckeon MD LAB BLOOD ORDER ONLY Fin al Result Performing Organization Address City/[facility]/ZIP Co de Phone Number [facility]
[address] [place] [address], * (ABNORMAL) High Sensitivity Troponin T (11/12/2024 5:17 PM EDT) [facility] HS Troponin T 17(H) <14 ng/L 11/12/2024 5:51 PM EDT [facility] Blood Venipuncture / Unknown 11/12/2024 5:17 PM EDT 11/12/2024 5:17 PM EDT Narrative [facility] - 11/12/2024 5:51 PM EDT High [...] ORDERABLES Fin al Result Performing Organization Address City/[facility]/ZIP Co de Phone Number [facility]
[address] [place] [address], * BNP (11/12/2024 5:17 PM EDT) [facility] proBNP 247.0 0.0 - 900.0 pg/mL 11/12/2024 5:51 PM EDT [facility] Blood Venipuncture / Unknown 11/12/2024 5:17 PM EDT 11/12/2024 5:17 PM EDT Narrative [facility] - 11/12/2024 5:51 PM EDT This [...] Interpretation NT-proBNP Concentration (pg/mL: <50 Positive >450 [place] 300-450 Negative <300 50-75 Positive >900 [place] 300-900 Negative <300 >75 Positive >1800 [place] 300-1800 Negative <300 us Vasu Mckeon MD LAB BLOOD ORDERABLES Fin al Result [facility]
[address] [place] [address], * (ABNORMAL) Comprehensive Metabolic Panel (11/12/2024 5:17 PM EDT) Glucose 96 65 - 99 mg/dL 11/12/2024 5:51 PM EDT [facility] BUN 24.7(H) 8.0 - 23.0 mg/dL 11/12/2024 5:51 PM EDT [facility] Creatinine 1.06(H) 0.57 - 1.00 mg/dL 11/12/2024 5:51 PM EDT [facility] Sodium 139 136 - 145 mmol/L 11/12/2024 5:51 PM EDT [facility] Potassium 4.4 3.5 - 5.2 mmol/L 11/12/2024 5:51 PM EDT [facility] Chloride 101 98 - 107 mmol/L 11/12/2024 5:51 PM EDT [facility] CO2 27.9 22.0 - 29.0 mmol/L 11/12/2024 5:51 PM EDT [facility] Calcium 9.1 8.6 - 10.5 mg/dL 11/12/2024 5:51 PM EDT [facility] Total Protein 6.4 6.0 - 8.5 g/dL 11/12/2024 5:51 PM EDT [facility] Albumin 4.0 3.5 - 5.2 g/dL 11/12/2024 5:51 PM EDT [facility] ALT (SGPT) 15 1 - 33 U/L 11/12/2024 5:51 PM EDT [facility] AST (SGOT) 27 1 - 32 U/L 11/12/2024 5:51 PM EDT [facility] Alkaline Phosphatase 113 39 - 117 U/L 11/12/2024 5:51 PM EDT [facility] Total Bilirubin 0.2 0.0 - 1.2 mg/dL 11/12/2024 5:51 PM EDT [facility] Globulin 2.4 gm/dL 11/12/2024 5:51 PM EDT [facility] Comment:Calculated Result A/G Ratio 1.7 g/dL 11/12/2024 5:51 PM T [facility] BUN/Creatinine Ratio 23.3 7.0 - 25.0 11/12/2024 5:51 PM T [facility] Anion Gap 10.1 5.0 - 15.0 mmol/L 11/12/2024 5:51 PM T [facility] eGFR 58.1(L) >60.0 mL/min/1.7 3 11/12/2024 5:51 PM T [facility] Blood Venipuncture / Unknown 11/12/2024 5:17 [...] MD LAB BLOOD ORDERABLES Fin al Result [facility]
[address] [place] [address], * ECG 12 Lead Dyspnea (11/12/2024 4:45 [...] failure with hypoxia- Primary Referred by health home care nurse Dyspnea on exertion Other dyspnea and respiratory [...] BPA Driven Protocol [facility] Electrolyte Replacement Protocol Algorithm to View [...] (Canceled Entry - Provider: Luz Maria Neely, SOFTWARE SALES EXECUTIVE) bumetanide (BUMEX) injection 2 mg (COMPLETED) 2 [...] Sat11/13/24 at 0900 0902 (Given - Provider: iJll Altamirano, RN) 0807 (Given - Provider: Jill [...] Education 2252 (Given - Provider: Narciso Melton, SOFTWARE SALES EXECUTIVE) ipratropium-albuterol (DUO-NEB) nebulizer solution 3 mL 3 mL, Nebulization, 4 Times Daily - RT, First dose on Sat11/13/24 at 0830, Include Respiratory Treatment Education 0940 (Given - Provider: Laine Hernandez SOFTWARE SALES EXECUTIVE)1334 (Given - Provider: Laine Hernandez SOFTWARE SALES EXECUTIVE)1651 (Given - Provider: Laine Hernadnez SOFTWARE SALES EXECUTIVE)2019 (Given - Provider: Eusebio Jade, CHIPPER MACHINE OPERATOR) 0729 (Given - Provider: Luz Maria Neely, SOFTWARE SALES EXECUTIVE)0733 (Canceled Entry - Provider: Luz Maria Neely RRT)1335 (Given - Provider: Luz Maria Neely, SOFTWARE SALES EXECUTIVE)1608 (Not Given - Provider: Luz Maria Neely [...] dose 1133 (Given - Provider: Shady Palmer, [facility]) venlafaxine XR (EFFEXOR-XR) 24 hr capsule 150 [...] BPA Driven Protocol [facility] Electrolyte Replacement Protocol Algorithm to View [...] BPA Driven Protocol [facility] Electrolyte Replacement Protocol Algorithm to View [...] diarrhea documented in this encounter Care Teams Campaign Director Relationship Specialty Start Date End Date Sandra Orozco APRN [address] [place] [address] [place] [address] PCP - General Internal Medicine 05/11/24 documented as of this encounter
--- OUTSIDE RECORDS SUMMARY | 2024-11-26 11:00 | XMS_ITS | Encounter Summary ---
Author Organization [facility] ystem Address [address] [place] [address] Care Team Providers Care Bilingual Nanny Name Role Phone Sandra Orozco APRN Primary Care Provider Reason for Visit * Reason Comments Shortness of Breath Encounter Details Date Type Department Care Team (Latest Contact Info) Description 11/26/2024 11:00 AM EDT Office Visit [facility] CARDIOLOGY [address] [facility] [address], [place] [address] Dina Solano APRN [address] [facility] [address] [place] [address] Paroxysmal atrial fibrillation (Primary Dx); History of [...] = 0.6 oz pur e alcohol) former [facility] Utilities Answer Date Recorded In the past 12 months has [employer] electric, gas, oil, or water company threatened [...] care, and heating? Not very hard 11/13/2024 [facility] [place] of Occupat ional Health - Occupational Stress [...] GED or equivalent No 11/13/2024 Preferred Language Panamanian 11/13/2024 PHQ-2 Answer Date Recorded Patient Health [...] 11:00 AM EDTAssociated Problem(s): Paroxysmal atrial fibrillation [id number] Continue Xarelto 15 mg p.o. daily Continue [...] Continue follow-up with pulmonary provider * Dina Solnao APRN - 11/26/2024 11:00 AM EDTAssociated Problem(s): [...] Sandra Orozco APRN Date: 11/26/2024 Department: Minh [facility] CARDIOLOGY [address] [facility] [address] [facility] [phone] Chief Complaint: Chief Complaint Patient presents with Shortness of Breath Problem list: Paroxysmal atrial fibrillation/History of ischemic CVA/TIAs status post loop explant [id number] 5 (Female, Age, CVA, PAD) PAF noted [...] to admission. She continues to see her cbx operator and has a follow-up appointment scheduled. She [...] Plan Assessment & Plan Paroxysmal atrial fibrillation [id number] Continue Xarelto 15 mg p.o. daily Continue [...] 3 months (around 02/25/2025). Patient or patient accounts payable representative verbalized consent for the use of Ambient Listening during the visit with Dina Solano APRN for chart documentation. 11/26/2024 10:42 EDT Dina Solano APRN [facility] Cardiology documented in this encounter Plan of Treatment Upcoming Encounters Date Type Department Care Team (Late st Contact Info) Description 02/16/2025 11:00 AM EST Office Visit [facility] CARDIOLOGY [address] [facility] [address] [place] [address] Dina Solano APRN [address] [facility] [address] [place] [address] Scheduled Orders Name Type Priority Associated Diagnoses [...] APRN LAB BLOOD ORDERABLES Final Re sult [facility]
[address] [place] [address], documented in this encounter Visit Diagnoses Diagnosis Paroxysmal atrial fibrillation- Primary Atrial fibrillation History of CVA (cerebrovascular accident) Transient ischemic attack (TIA), and cerebral infarction without residual deficits Chronic respiratory failure with hypoxia Hyperlipidemia LDL goal <55 Prediabetes Other abnormal glucose Anemia, unspecified type Chronic venous insufficiency of lower extremity Chronic obstructive pulmonary disease, unspecified COPD type documented in this encounter Care Teams Bilingual Nanny Relationship Specialty Start Date End Date Sandra Orozco APRN [address] [address] PCP - General Internal Medicine 05/11/24 documented as of this encounter
--- OUTSIDE RECORDS SUMMARY | 2024-12-25 10:47 | XMS_ITS | Encounter Summary ---
Author Organization [facility] Address [address] [place] [address] Care Team Providers Care Bobbin Collector Name Role Phone Sandra Orozco APRN Primary Care Provider Encounter Details Date Type Department Care Team (Late st Contact Info) Description 11/30/2024 Readmission Management [facility] N[facility] CALL [facility] [address] [place] [address] Christiano Gresham, RN Social History Tobacco Use Types Packs/Day Years Used Date Smoking Tobacco: Former Cigarettes 2 45 Q uit: 05/10/2023 Smokeless Tobacco: Never Comments:Liked to smoke Alcohol Use Standard Drinks/Week Comments Not Currently 0 (1 standard drink = 0.6 oz pur e alcohol) former [facility] Utilities Answer Date Recorded In the past 12 months has [employer], gas, oil, or water [employer]) threatened to shut off services in your [...] care, and heating? Not very hard 11/13/2024 [facility] - [facility] Stress Questionnaire Answer Date Recorded [...] GED or equivalent No 11/13/2024 Preferred Language Japanese 11/13/2024 PHQ-2 Answer Date Recorded Patient Health [...] CHF Week 1 Survey Flowsheet Row [facility]es [facility] Does the patient have one of the following disease processes/diagnoses(primary or secondary)? CHF CHF Week 1 attempt successful? No Unsuccessful attempts Attempt 2 Christiano Romero - Registered Nurse documented in this encounter Plan of Treatment Upcoming Encounters Date Type Department Care Team (Late st Contact Info) Description 02/16/2025 11:00 AM EST Office Visit [facility] CARDIOLOGY [address] [place] [address] Dina Solano APRN [address] [facility] [address] [place] [address] documented as of this encounter Visit Diagnoses Not on filedocumented in this encounter Care Teams Bobbin Collector Relationship Specialty Start Date End Date Sandra Orozco APRN [address] [address] PCP - General Internal Medicine 05/11/24 documented as of this encounter
--- OUTSIDE RECORDS SUMMARY | 2024-12-25 10:47 | XMS_ITS | Clinical Summary ---
[facility] Organization [facility] Address [address] [place] [address] Care Team Providers Care Occ Therapy Asst Name Role Phone Sandra Orozco APRN Primary [...] all over Nortriptyline Swelling Low 04/15/2024 Poison Valliant Extract Hives,Itching,Swell ing,Rash Low 04/15/2024 Poison oak/poison [...] of breath and lower extremity edema. 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 daily Continue [...] Assessment & Plan (07/16/2024 12:10 PM EDT): [id number] Continue Xarelto 15 mg p.o. daily, [...] Department Care Team Description 11/30/2024 Readmission Management [facility] [address] [place] [address] Christiano Gresham RN 11/26/2024 11:00 AM EDT Office Visit [facility] [address] [facility] [address] [place] [phone] Dina Solano APRN Paroxysmal atrial fibrillation (Primary Dx); History of CVA (cerebrovascular accident); Chronic respiratory failure with hypoxia; Hyperlipidemia LDL goal <55; Prediabetes; Anemia, unspecified type; Chronic venous insufficiency of lower extremity; Chronic obstructive pulmonary disease, unspecified COPD type 11/26/2024 Travel 11/23/2024 Readmission Management [facility] [address] [place] [address] Kaykay Farrar RN 11/16/2024 Readmission Management [facility] [address] [place] [address] Omaira Knapp RN 11/12/2024 9:36 PM EDT - 11/14/2024 4:38 PM EDT Hospital Encounter [address] [place] [address] Logan Araujo MD Butler, Jennifer, MD Barbato, Hayley R, DO West, Christopher R, MD Referred by health care aide (Primary Dx); Dyspnea on exertion; Chronic respiratory failure with hypoxia, on home O2 therapy; SMOOTH (obstructive sleep apnea); Elevated troponin; Moderate aortic valve regurgitation Discharge Disposition: Home or Self Care 11/12/2024 12:30 PM EDT Office Visit [facility] [address] [facility] [address] [place] [address] [place], Dina, [employer] Shortness of breath (Primary Dx); Generalized edema; Chronic respiratory failure with hypoxia; Paroxysmal atrial fibrillation; History of CVA (cerebrovascular accident); Moderate aortic valve regurgitation; Peripheral arterial disease 11/12/2024 Patient rounding ([facility] only) [facility] [address] [facility] [address] [place] [address] Dina Solano APRN 11/12/2024 Travel 11/10/2024 Telephone [facility] [address] [facility] [address] [place] [address] Christy Kirk MD from Last [...] has e electric, gas, oil, or water Poll Everywhere threatened to shut off services in your [...] and heating? Not very hard 11/13/2024 [facility] Occup[facility] ional [facility] - Occupational Stress [...] GED or equivalent No 11/13/2024 Preferred Language Somali 11/13/2024 PHQ-2 Answer Date Recorded Patient Health [...] AM EST Office Visit [facility] [address] [facility] [address] [place] [phone] Dina Solano APRN [address] [facility] [address] [place] [address] Health Maintenance Due Date Last Done Comments [...] EDT RESPIRATORY PANEL PCR W/ COVID-19 (SARS-COV-2), SIGNAL ENGINEER SWAB IN UTM/VTP, 2 HR TAT Routine 11/13/2024 3:26 AM EDT BLOOD GAS, VENOUS W/CO-OXIMETRY STAT 11/12/2024 11:[address] ANGIOGRAM CHEST PULMONARY EMBOLISM STAT 11/12/2024 7:46 PM EDT COVID-19/FLUA&B/RSV, SIGNAL ENGINEER SWAB IN TRANSPORT MEDIA 1 HR TAT [...] APRN LAB BLOOD ORDERABLES Final Re sult [facility]
[address] [place] [address], * ECHO COMPLETE W/ DOPPLER AND COLOR [...] - 10.80 10*3/mm3 11/13/2024 12:36 PM EDT [facility] RBC 3.89 3.77 - 5.28 10*6/mm3 11/13/2024 12:36 PM EDT [facility] Hemoglobin 8.1(L) 12.0 - 15.9 g/dL 11/13/2024 12:36 PM EDT [facility] Hematocrit 29.1(L) 34.0 - 46.6 % 11/13/2024 12:36 PM EDT [facility] MCV 74.8(L) 79.0 - 97.0 fL 11/13/2024 12:36 PM EDT [facility] MCH 20.8(L) 26.6 - 33.0 pg 11/13/2024 12:36 PM EDT [facility] MCHC 27.8(L) 31.5 - 35.7 g/dL 11/13/2024 12:36 PM EDT [facility] RDW 19.0(H) 12.3 - 15.4 % 11/13/2024 12:36 PM EDT [facility] RDW-SD 51.3 37.0 - 54.0 fl 11/13/2024 12:36 PM EDT [facility] MPV 9.8 6.0 - 12.0 fL 11/13/2024 12:36 PM EDT [facility] Platelets 227 140 - 450 10*3/mm3 11/13/2024 12:36 PM EDT [facility] Neutrophil % 63.6 42.7 - 76.0 % 11/13/2024 12:36 PM EDT [facility] Lymphocyte % 23.3 19.6 - 45.3 % 11/13/2024 12:36 PM EDT [facility] Monocyte % 8.9 5.0 - 12.0 % 11/13/2024 12:36 PM EDT [facility] Eosinophil % 2.8 0.3 - 6.2 % 11/13/2024 12:36 PM EDT [facility] Basophil % 0.7 0.0 - 1.5 % 11/13/2024 12:36 PM EDT [facility] Immature Grans % 0.7(H) 0.0 - 0.5 % 11/13/2024 12:36 PM EDT [facility] Neutrophils, Absolute 3.44 1.70 - 7.00 10*3/mm3 11/13/2024 12:36 PM EDT [facility] Lymphocytes, Absolute 1.26 0.70 - 3.10 10*3/mm3 11/13/2024 12:36 PM EDT [facility] Monocytes, Absolute 0.48 0.10 - 0.90 10*3/mm3 11/13/2024 12:36 PM EDT [facility] Eosinophils, Absolute 0.15 0.00 - 0.40 10*3/mm3 11/13/2024 12:36 PM EDT [facility] Basophils, Absolute 0.04 0.00 - 0.20 10*3/mm3 11/13/2024 12:36 PM EDT [facility] Immature Grans, Absolute 0.04 0.00 - 0.05 10*3/mm3 11/13/2024 12:36 PM EDT [facility] nRBC 0.0 0.0 - 0.2 /100 WBC 11/13/2024 12:36 PM EDT [facility] Blood Venipuncture / Unknown 11/13/2024 12:07 PM EDT 11/13/2024 12:26 PM EDT Aaliyah Jha APRN LAB BLOOD ORDERABLES Final Re sult Performing Organization Address City/[facility]/ZIP Co de Phone Number [facility]
[address] [place] [address], * (ABNORMAL) Reticulocytes (11/13/2024 12:07 PM EDT) Reticulocyte % 2.78(H) 0.70 - 1.90 % 11/13/2024 12:32 PM EDT [facility] Reticulocyte Absolute 0.1081 0.0200 - 0.1300 10*6/mm3 11/13/2024 12:32 PM EDT [facility] Blood Venipuncture / Unknown 11/13/2024 12:07 PM EDT 11/13/2024 12:26 PM EDT Aaliyah Jha APRN LAB BLOOD ORDERABLES Final Re sult Performing Organization Address [facility] Co de Phone Number [facility]
[address] [place] [address], * TSH (11/13/2024 12:07 PM EDT) TSH 2.770 0.270 - 4.200 uIU/mL 11/13/2024 12:56 PM EDT [facility] Blood Venipuncture / Unknown 11/13/2024 12:07 PM EDT 11/13/2024 12:26 PM EDT Aaliyah Jha APRN LAB BLOOD ORDERABLES Final Re sult Performing Organization Address City/[facility]/ZIP Co de Phone Number [facility]
[address] [place] [address], * Magnesium (11/13/2024 12:07 PM EDT) Only the most recent of2 resultswithin the time period is included. Pathologist [facility] Magnesium 1.9 1.6 - 2.4 mg/dL 11/13/2024 12:56 PM EDT [facility] Blood Venipuncture / Unknown 11/13/2024 12:07 PM EDT 11/13/2024 12:26 PM EDT Aaliyah Jha APRN LAB BLOOD ORDERABLES Final Re sult [facility]
[address] [place] [address], * (ABNORMAL) Hemoglobin A1c (11/13/2024 12:07 PM EDT) [facility] Hemoglobin A1C 5.84(H) 4.80 - 5.60 % 11/13/2024 1:23 PM EDT [facility] Blood Venipuncture / Unknown 11/13/2024 12:07 PM EDT 11/13/2024 12:26 PM EDT Narrative [facility] - 11/13/2024 1:23 PM EDT Hemoglobin A1C Ranges: Increased Risk for Diabetes 5.7% to 6.4% Diabetes >= 6.5% Diabetic Goal < 7.0% Aaliyah Jha APRN LAB BLOOD ORDERABLES Final Re sult [facility]
[address] [place] [address], * Folate RBC (11/13/2024 12:07 PM EDT) Pathologist [facility] Folate, Hemolysate 538.0 Not Estab. ng/mL 11/16/2024 9:09 AM EDT [facility] Hematocrit 40.7 34.0 - 46.6 % 11/16/2024 9:09 AM EDT [facility] RBC Folate 1322 >498 ng/mL 11/16/2024 9:09 AM EDT [facility] Blood Venipuncture / Unknown 11/13/2024 12:07 PM EDT 11/13/2024 12:26 PM EDT Narrative [facility] - 11/16/2024 9:09 AM EDT Performed at: 01 - [address] [id number] Risk Prevention Engineer: Gomez Crooks PhD, Phone: [phone] us Aaliyah Jha APRN LAB BLOOD ORDERABLES Edited R esult - Final [facility] [address] [place] [id number], * (ABNORMAL) Basic Metabolic Panel (11/13/2024 12:07 PM EDT) Glucose 100(H) 65 - 99 mg/dL 11/13/2024 12:56 PM EDT [facility] BUN 19.7 8.0 - 23.0 mg/dL 11/13/2024 12:56 PM EDT [facility] Creatinine 0.93 0.57 - 1.00 mg/dL 11/13/2024 12:56 PM EDT [facility] Sodium 143 136 - 145 mmol/L 11/13/2024 12:56 PM EDT [facility] Potassium 3.8 3.5 - 5.2 mmol/L 11/13/2024 12:56 PM EDT [facility] Chloride 102 98 - 107 mmol/L 11/13/2024 12:56 PM EDT [facility] CO2 31.1(H) 22.0 - 29.0 mmol/L 11/13/2024 12:56 PM EDT [facility] Calcium 8.6 8.6 - 10.5 mg/dL 11/13/2024 12:56 PM EDT [facility] BUN/Creatinine Ratio 21.2 7.0 - 25.0 11/13/2024 12:56 PM EDT [facility] Anion Gap 9.9 5.0 - 15.0 mmol/L 11/13/2024 12:56 PM EDT [facility] eGFR 67.9 >60.0 mL/min/1.7 3 11/13/2024 12:56 PM EDT [facility] Blood Venipuncture / Unknown 11/13/2024 12:07 PM EDT 11/13/2024 12:26 PM EDT Narrative [facility] - 11/13/2024 12:56 PM [...] APRN LAB BLOOD ORDERABLES Final Re sult [facility]
[address] [place] [address], * Duplex Venous Lower Extremity - Bilateral [...] the time period is included. Pathologist [facility] QT Interval 410 ms ECG [...] change was found Confirmed by ABDULLAHI HENDRICKSON ([id number]) on 11/13/2024 7:39:07 PM Referred By: Confirmed [...] change was found Confirmed by ABDULLAHI HENDRICKSON ([id number]) on 11/13/2024 7:39:07 PM Referred By: Confirmed By: ABDULLAHI HENDRICKSON Aaliyah Jha APRN ECG ORDERABLES Final Result [facility] ECG * Respiratory Panel PCR w/COVID-19(SARS-CoV-2) SIDRA/CHECO/SAUD/PAD/COR/ERIC In-House, SIGNAL ENGINEER Swab in UTM/VTM, 2 HR TAT - Swab, Nasopharynx (11/13/2024 3:26 AM EDT) ADENOVIRUS, PCR Not Detected Not Detected [facility] 11/13/2024 4:48 AM EDT [facility] Coronavirus 229E Not Detected Not Detected [facility] 11/13/2024 4:48 AM EDT [facility] Coronavirus HKU1 Not Detected Not Detected [facility] 11/13/2024 4:48 AM EDT [facility] Coronavirus NL63 Not Detected Not Detected [facility] 11/13/2024 4:48 AM EDT [facility] Coronavirus OC43 Not Detected Not Detected [facility] 11/13/2024 4:48 AM EDT [facility] COVID19 Not Detected Not Detected - Ref. Range [facility] 11/13/2024 4:48 AM EDT [facility] Human Metapneumovirus Not Detected Not Detected [facility] 11/13/2024 4:48 AM EDT [facility] Human Rhinovirus/Enterov irus Not Detected Not Detected [facility] 11/13/2024 4:48 AM EDT [facility] Influenza A PCR Not Detected Not Detected [facility] 11/13/2024 4:48 AM EDT [facility] Influenza B PCR Not Detected Not Detected [facility] 11/13/2024 4:48 AM EDT [facility] Parainfluenza Virus 1 Not Detected Not Detected [facility] 11/13/2024 4:48 AM EDT [facility] Parainfluenza Virus 2 Not Detected Not Detected [facility] 11/13/2024 4:48 AM EDT [facility] Parainfluenza Virus 3 Not Detected Not Detected [facility] 11/13/2024 4:48 AM EDT [facility] Parainfluenza Virus 4 Not Detected Not Detected [facility] 11/13/2024 4:48 AM EDT [facility] RSV, PCR Not Detected Not Detected [facility] 11/13/2024 4:48 AM EDT [facility] Bordetella pertussis pcr Not Detected Not Detected [facility] 11/13/2024 4:48 AM EDT [facility] Bordetella parapertussis PCR Not Detected Not Detected [facility] 11/13/2024 4:48 AM EDT [facility] Chlamydophila pneumoniae PCR Not Detected Not Detected [facility] 11/13/2024 4:48 AM EDT [facility] Mycoplasma pneumo by PCR Not Detected Not Detected [facility] 11/13/2024 4:48 AM EDT [facility] Swab Nasopharyngeal structure / Unknown Collection / Unknown 11/13/2024 3:26 AM EDT 11/13/2024 4:00 AM EDT [facility] - 11/13/2024 4:48 AM [...] MICROBIOLOGY - GENERAL ORDERA BLES Final Result [facility]
[address] [place] [address], * (ABNORMAL) Blood Gas, Venous With Co-Ox (11/12/2024 11:16 PM EDT) Site Nurse/Dr Draw 11/12/2024 11:17 PM EDT [facility] pH, Venous 7.337 7.310 - 7.410 pH Units 11/12/2024 11:17 PM EDT [facility] pCO2, Venous 59.6(H) 41.0 - 51.0 mm Hg 11/12/2024 11:17 PM EDT [facility] Comment:83 Value above refer ence range pO2, Venous 30.4 27.0 - 53.0 mm Hg 11/12/2024 11:17 PM EDT [facility] HCO3, Venous 31.9(H) 22.0 - 28.0 mmol/L 11/12/2024 11:17 PM EDT [facility] Base Excess, Venous 5.0(H) -2.0 - 2.0 mmol/L 11/12/2024 11:17 PM EDT [facility] Hemoglobin, Blood Gas 9.3(L) 14 - 18 g/dL 11/12/2024 11:17 PM EDT [facility] Oxyhemoglobin Venous 48.3 % 06/2024 11:17 PM EDT [facility] Methemoglobin Venous 0.4 % 06/2024 11:17 PM EDT [facility] Carboxyhemoglobin Venous 1.7 % 11/12/2024 11:17 PM EDT [facility] CO2 Content 33.7(H) 22 - 33 mmol/L 11/12/2024 11:17 PM EDT [facility] Temperature 37.0 11/12/2024 11:17 PM EDT [facility] Barometric Pressure for Blood Gas 11/12/2024 11:17 PM EDT [facility] Comment:N/A Modality Nasal Cannula 11/12/2024 11:17 PM EDT [facility] FIO2 28 % 11/12/2024 11:17 PM EDT [facility] Rate 0 Breaths/ minute 11/12/2024 11:17 PM EDT [facility] PIP 0 cmH2O 11/12/2024 11:17 PM EDT [facility] Comment:Meter: [id number] Senior Quality Control Inspector: [id number] IPAP 0 11/12/2024 11:17 PM EDT [facility] EPAP 0 11/12/2024 11:17 PM EDT [facility] Venous Blood 11/12/2024 11:1 6 PM EDT 11/12/2024 11:16 PM EDT us Lgoan Araujo MD LAB BLOOD ORDERABLES Fin al Result [facility]
[address] [place] [address], * CT Angiogram Chest Pulmonary Embolism (11/12/2024 7:46 PM EDT) Anatomical Region Laterality Modality Chest N/A Computed Tomogra phy 11/12/2024 8:22 PM EDT Impressions 11/12/2024 8:31 PM EDT No evidence of pulmonary embolus. No acute abnormality. Electronically Signed: Jed Machuca MD 11/12/2024 8:31 PM EDT Workstation ID: [id number] Hermann 11/12/2024 8:[address] ANGIOGRAM [...] MD 11/12/2024 8:31 PM EDT Workstation ID: [id number] Logan Araujo MD IMG CT ORDERABLES Final Result * COVID-19, FLU A/B, RSV PCR 1 HR TAT - Swab, Nasopharynx (11/12/2024 7:21 PM EDT) Pathologist [facility] COVID19 Not Detected Not Detected - Ref. Range [employer] 11/12/2024 8:24 PM EDT [facility] Influenza A PCR Not Detected Not Detected [employer] 11/12/2024 8:24 PM EDT [facility] Influenza B PCR Not Detected Not Detected [employer]ID [employer] 11/12/2024 8:24 PM EDT [facility] RSV, PCR Not Detected Not Detected [employer]ID [employer] 11/12/2024 8:24 PM EDT [facility] Swab Nasopharyngeal structure / Unknown Collection / Unknown 11/12/2024 7:21 PM EDT 11/12/2024 7:46 PM EDT Logan Araujo MD MICROBIOLOGY - GENERAL O RDERABLES Final Result [facility]
[address] [place] [address], [place] [phone] * (ABNORMAL) Urinalysis, Microscopic Only - Urine, Clean Catch (11/12/2024 7:20 PM EDT) Pathologist [facility] RBC, UA 0-2 None Seen, 0-2 /HPF 11/12/2024 8:00 PM EDT [facility] WBC, UA 11-20(A) None Seen, 0-2 /HPF 11/12/2024 8:00 PM EDT [facility] Bacteria, UA None Seen None Seen /HPF 11/12/2024 8:00 PM EDT [facility] Squamous Epithelial Cells, UA 3-6(A) None Seen, 0-2 /HPF 11/12/2024 8:00 PM EDT [facility] Hyaline Casts, UA 0-2 None Seen /LPF 11/12/2024 8:00 PM EDT [facility] Methodology Automated Microscopy 11/12/2024 8:00 PM EDT [facility] Urine Urine specimen obtained by clean catch procedure / Unknown Collection / Unknown 11/12/2024 7:20 PM EDT 11/12/2024 7:46 PM EDT Logan Araujo MD URINE ORDERABLES Final R esult [facility] [address] [place] [address], * (ABNORMAL) Urinalysis With Microscopic If Indicated (No Culture) - Urine, Clean Catch (11/12/2024 7:20 PM EDT) Color, UA Yellow Yellow, Straw 11/12/2024 8:00 PM EDT [facility] Appearance, UA Clear Clear 11/12/2024 8:00 PM EDT [facility] pH, UA 5.5 5.0 - 8.0 11/12/2024 8:00 PM EDT [facility] Specific [place], UA >1.030(H) 1.005 - 1.030 11/12/2024 8:00 PM EDT [facility] Glucose, UA Negative Negative 11/12/2024 8:00 PM EDT [facility] Ketones, UA Negative Negative 11/12/2024 8:00 PM EDT [facility] Bilirubin, UA Negative Negative 11/12/2024 8:00 PM EDT [facility] Blood, UA Negative Negative 11/12/2024 8:00 PM EDT [facility] Protein, UA Trace(A) Negative 11/12/2024 8:00 PM EDT [facility] Leuk Esterase, UA Small (1+)(A) Negative 11/12/2024 8:00 PM EDT [facility] Nitrite, UA Negative Negative 11/12/2024 8:00 PM EDT [facility] Urobilinogen, UA 1.0 E.U./dL 0.2 - 1.0 E.U./dL 11/12/2024 8:00 PM EDT [facility] Urine Urine specimen obtained by clean catch procedure / Unknown Collection / Unknown 11/12/2024 7:20 PM EDT 11/12/2024 7:46 PM EDT Logan Araujo MD URINE ORDERABLES Final R esult Performing Organization Address City/[facility]/ZIP Co de Phone Number [facility]
[address] [place] [address], * Sodium, Urine, Random - Urine, Clean Catch (11/12/2024 7:20 PM EDT) Sodium, Urine <20 mmol/L 11/13/2024 3:37 AM EDT [facility] Urine Urine specimen obtained by clean catch procedure / Unknown Collection / Unknown 11/12/2024 7:20 PM EDT 11/12/2024 7:46 PM EDT Narrative [facility] - 11/13/2024 3:37 AM EDT Reference intervals for random urine have not been established. Clinical usage is dependent upon physician's interpretation in combination with other laboratory tests. Aaliyah Jha APRN URINE ORDERABLES Final Result Performing Organization Address [facility] Co de Phone Number [facility]
[address] [place] [address], * Osmolality, Urine - Urine, Clean Catch (11/12/2024 7:20 PM EDT) Osmolality, Urine 837 300 - 1,100 mOsm/kg 11/13/2024 4:00 AM EDT [facility] Urine Urine specimen obtained by clean catch procedure / Unknown Collection / Unknown 11/12/2024 7:20 PM EDT 11/12/2024 7:46 PM EDT Aaliyah Jha APRN URINE ORDERABLES Final Result [facility]
[address] [place] [address], [place] [phone] * Creatinine Urine Random (kidney function) GFR component - Urine, Clean Catch (11/12/2024 7:20 PM EDT) Creatinine, Urine 276.6 mg/dL 11/13/2024 9:46 AM EDT [facility] Urine Urine specimen obtained by clean catch procedure / Unknown Collection / Unknown 11/12/2024 7:20 PM EDT 11/13/2024 3:13 AM EDT Narrative [facility] - 11/13/2024 9:46 AM EDT Reference intervals for random urine have not been established. Clinical usage is dependent upon physician's interpretation in combination with other laboratory tests. us Aaliyah Jha APRN URINE ORDERABLES Final Result [facility]
[address] [place] [address], [place] [phone] * Urine Culture - Urine, Urine, Clean Catch (11/12/2024 7:20 PM EDT) Urine Culture No growth YUMIKO 11/14/2024 12:26 PM EDT [facility] Urine Urine specimen obtained by clean catch procedure / Unknown Collection / Unknown 11/12/2024 7:20 PM EDT 11/13/2024 12:57 AM EDT Logan Araujo MD MICROBIOLOGY - GENERAL O RDERABLES Final Result Performing Organization Address [facility]/ZIP Co de Phone Number [facility]
[address] [place] [address], [place] [phone] * (ABNORMAL) High Sensitivity Troponin T 1Hr (11/12/2024 7:16 PM EDT) HS Troponin T 16(H) <14 ng/L 11/12/2024 7:53 PM EDT [facility] Troponin T Numeric Delta -1 ng/L 11/12/2024 7:53 PM EDT [facility] Troponin T % Delta -6 Abnormal if >/= 20% 11/12/2024 7:53 PM EDT [facility] Blood Line / Unknown 11/12/2024 7: 16 PM EDT 11/12/2024 7:20 PM EDT Narrative [facility] - 11/12/2024 7:53 PM [...] MD LAB BLOOD ORDERABLES Fin al Result [facility]
[address] [place] [address], [place] [phone] * (ABNORMAL) Iron Profile w/o Ferritin (11/12/2024 7:16 PM EDT) Iron 21(L) 37 - 145 mcg/dL 11/13/2024 3:24 AM EDT [facility] Iron Saturation (TSAT) 4(L) 20 - 50 % 11/13/2024 3:24 AM EDT [facility] Transferrin 321 200 - 360 mg/dL 11/13/2024 3:24 AM EDT [facility] TIBC 478 298 - 536 mcg/dL 11/13/2024 3:24 AM EDT [facility] Blood Venipuncture / Unknown 11/12/2024 7:16 PM EDT 11/13/2024 2:57 AM EDT Aaliyahcolleen Jha APRN LAB BLOOD ORDERABLES Final Re sult Performing Organization Address City/[facility]/ZIP Co de Phone Number [facility]
[address] [place] [address], [place] [phone] * Ferritin (11/12/2024 7:16 PM EDT) Ferritin 13.80 13.00 - 150.00 ng/mL 11/13/2024 3:24 AM EDT [facility] Blood Venipuncture / Unknown 11/12/2024 7:16 PM EDT 11/13/2024 2:57 AM EDT Narrative [facility] - 11/13/2024 3:24 AM EDT Results may be falsely decreased if patient taking Biotin. Aaliyah Jha APRN LAB BLOOD ORDERABLES Final Re sult Performing Organization Address City/[facility]/ZIP Co de Phone Number [facility]
[address] [place] [address], [place] [phone] * XR Chest 1 View (11/12/2024 6:30 PM EDT) Anatomical Region Laterality Modality Body N/A Radiographic Tatyana ging 11/12/2024 7:00 PM EDT Impressions 11/12/2024 7:02 PM EDT Impression: 1. No acute cardiopulmonary disease. Electronically Signed: Arben Neely MD 11/12/2024 7:02 PM EDT Workstation ID: [id number] Narrative 11/12/2024 7:02 PM EDT XR CHEST [...] MD 11/12/2024 7:02 PM EDT Workstation ID: [id number] Logan Araujo MD IMG DIAGNOSTIC IMAGING O RDERABLES Final Result * Castellano Top (11/12/2024 5:17 PM EDT) Pathologist [facility] Extra Tube Hold for add-ons. 11/12/2024 5:32 PM EDT [facility] Comment:Auto resulted. Blood Venipuncture / Unknown 11/12/2024 5:17 PM EDT 11/12/2024 5:17 PM EDT Logan Araujo MD LAB BLOOD ORDER ONLY Fin al Result [facility]
[address] [place] [address], * TSH Rfx On Abnormal To Free T4 (11/12/2024 5:17 PM EDT) Pathologist [facility] TSH 2.480 0.270 - 4.200 uIU/mL 11/12/2024 5:51 PM EDT [facility] Blood Venipuncture / Unknown 11/12/2024 5:17 PM EDT 11/12/2024 5:17 PM EDT Logan Araujo MD LAB BLOOD ORDERABLES Fin al Result [facility]
[address] [place] [address], [place] [phone] * Gold Top - SST (11/12/2024 5:17 PM EDT) Extra Tube Hold for add-ons. 11/12/2024 5:32 PM EDT [facility] Comment:Auto resulted. Blood Venipuncture / Unknown 11/12/2024 5:17 PM EDT 11/12/2024 5:17 PM EDT Logan Araujo MD LAB BLOOD ORDER ONLY Fin al Result Performing Organization Address [facility] Co de Phone Number [facility]
[address] [place] [address], [place] [phone] * Green Top (Gel) (11/12/2024 5:17 PM EDT) Extra Tube Hold for add-ons. 11/12/2024 5:31 PM EDT [facility] Comment:Auto resulted. Blood Venipuncture / Unknown 11/12/2024 5:17 PM EDT 11/12/2024 5:17 PM EDT Logan Araujo MD LAB BLOOD ORDER ONLY Fin al Result Performing Organization Address City/[facility]/ZIP Co de Phone Number [facility]
[address] [place] [address], [place] [phone] * Scan Slide (11/12/2024 5:17 PM EDT) Anisocytosis Slight/1+ None Seen 11/12/2024 6:07 PM EDT [facility] Hypochromia Slight/1+ None Seen 11/12/2024 6:07 PM EDT [facility] Microcytes Mod/2+ None Seen 11/12/2024 6:07 PM EDT [facility] WBC Morphology Normal Normal 11/12/2024 6:07 PM EDT [facility] Platelet Morphology Normal Normal 11/12/2024 6:07 PM EDT [facility] Blood Venipuncture / Unknown 11/12/2024 5:17 PM EDT 11/12/2024 5:17 PM EDT Logan Araujo MD LAB BLOOD ORDERABLES Fin al Result Performing Organization Address City/[facility]/ZIP Co de Phone Number [facility]
[address] [place] [address], [place] [phone] * Lavender Top (11/12/2024 5:17 PM EDT) Extra Tube hold for add-on 11/12/2024 5:31 PM EDT [facility] Comment:Auto resulted Blood Venipuncture / Unknown 11/12/2024 5:17 PM EDT 11/12/2024 5:17 PM EDT Logan Araujo MD LAB BLOOD ORDER ONLY Fin al Result [facility]
[address] [place] [address], [place] [phone] * Light Blue Top (11/12/2024 5:17 PM EDT) Extra Tube Hold for add-ons. 11/12/2024 5:31 PM EDT [facility] Comment:Auto resulted Blood Venipuncture / Unknown 11/12/2024 5:17 PM EDT 11/12/2024 5:17 PM EDT Logan Araujo MD LAB BLOOD ORDER ONLY Fin al Result Performing Organization Address City/[facility]/ZIP Co de Phone Number [facility]
[address] [place] [address], * (ABNORMAL) High Sensitivity Troponin T (11/12/2024 5:17 PM EDT) Pathologist [facility] HS Troponin T 17(H) <14 ng/L 11/12/2024 5:51 PM EDT [facility] Blood Venipuncture / Unknown 11/12/2024 5:17 PM EDT 11/12/2024 5:17 PM EDT Narrative [facility] - 11/12/2024 5:51 PM [...] ORDERABLES Fin al Result Performing Organization Address [facility] Co de Phone Number [facility]
[address] [place] [address], * (ABNORMAL) D-dimer, Quantitative (11/12/2024 5:17 PM EDT) Pathologist [facility] D-Dimer, Quantitative 10.36(H) 0.00 - 0.66 MCGFEU/mL 11/12/2024 6:00 PM EDT [facility] Blood Venipuncture / Unknown 11/12/2024 5:17 PM EDT 11/12/2024 5:17 PM EDT Narrative [facility] - 11/12/2024 6:00 PM EDT According to the assay double head machine operator's published package insert, a normal (<0.50 MCGFEU/mL) D-dimer result in conjunction with a non-high clinical probability assessment, excludes deep vein thrombosis (DVT) and pulmonary embolism (PE) with high sensitivity. D-dimer values increase with age and this can make VTE exclusion of an older population difficult. To address this, the [employer], based on best available [...] ORDERABLES Fin al Result Performing Organization Address City/[facility]/ZIP Co de Phone Number [facility]
[address] [place] [address], * Phosphorus (11/12/2024 5:17 PM EDT) Pathologist [facility] Phosphorus 4.1 2.5 - 4.5 mg/dL 11/12/2024 5:51 PM EDT [facility] Blood Venipuncture / Unknown 11/12/2024 5:17 PM EDT 11/12/2024 5:17 PM EDT Logan Araujo MD LAB BLOOD ORDERABLES Fin al Result Performing Organization Address City/[facility]/ZIP Co de Phone Number [facility]
[address] [place] [address], * BNP (11/12/2024 5:17 PM EDT) proBNP 247.0 0.0 - 900.0 pg/mL 11/12/2024 5:51 PM EDT [facility] Blood Venipuncture / Unknown 11/12/2024 5:17 PM EDT 11/12/2024 5:17 PM EDT Narrative [facility] - 11/12/2024 5:51 PM [...] ORDERABLES Fin al Result Performing Organization Address City/[facility]/ZIP Co de Phone Number [facility]
[address] [place] [address], * Lipase (11/12/2024 5:17 PM EDT) Lipase 20 13 - 60 U/L 11/12/2024 5:51 PM EDT [facility] Blood Venipuncture / Unknown 11/12/2024 5:17 PM EDT 11/12/2024 5:17 PM EDT Logan Araujo MD LAB BLOOD ORDERABLES Fin al Result [facility]
[address] [place] [address], * Lactic Acid, Plasma (11/12/2024 5:17 PM EDT) Lactate 1.6 0.5 - 2.0 mmol/L 11/12/2024 5:49 PM EDT [facility] Comment:Falsely depressed re sults may occur on samples drawn from patients receiving N-Acetylcysteine (NAC) or Metamizole. Blood Venipuncture / Unknown 11/12/2024 5:17 PM EDT 11/12/2024 5:17 PM EDT Logan Araujo MD LAB BLOOD ORDERABLES Fin al Result Performing Organization Address City/[facility]/ZIP Co de Phone Number [facility]
[address] [place] [address], [place] [phone] * Folate (11/12/2024 5:17 PM EDT) Folate >20.00 4.78 - 24.20 ng/mL 11/13/2024 9:54 AM EDT [facility] Blood Venipuncture / Unknown 11/12/2024 5:17 PM EDT 11/13/2024 2:59 AM EDT Narrative [facility] - 11/13/2024 9:54 AM EDT Results may be falsely increased if patient taking Biotin. Aaliyah Jha APRN LAB BLOOD ORDERABLES Final Re sult Performing Organization Address [facility] Co de Phone Number [facility]
[address] [place] [address], [place] [phone] * (ABNORMAL) Vitamin B12 (11/12/2024 5:17 PM [...] MIRANDA LAB BLOOD ORDERABLES Final Re sult [facility]
[address] [place] [address], * (ABNORMAL) Comprehensive Metabolic Panel (11/12/2024 5:17 PM EDT) Glucose 96 65 - 99 mg/dL 11/12/2024 5:51 PM EDT [facility] BUN 24.7(H) 8.0 - 23.0 mg/dL 11/12/2024 5:51 PM EDT [facility] Creatinine 1.06(H) 0.57 - 1.00 mg/dL 11/12/2024 5:51 PM EDT [facility] Sodium 139 136 - 145 mmol/L 11/12/2024 5:51 PM EDT [facility] Potassium 4.4 3.5 - 5.2 mmol/L 11/12/2024 5:51 PM EDT [facility] Chloride 101 98 - 107 mmol/L 11/12/2024 5:51 PM EDT [facility] CO2 27.9 22.0 - 29.0 mmol/L 11/12/2024 5:51 PM EDT [facility] Calcium 9.1 8.6 - 10.5 mg/dL 11/12/2024 5:51 PM EDT [facility] Total Protein 6.4 6.0 - 8.5 g/dL 11/12/2024 5:51 PM EDT [facility] Albumin 4.0 3.5 - 5.2 g/dL 11/12/2024 5:51 PM EDT [facility] ALT (SGPT) 15 1 - 33 U/L 11/12/2024 5:51 PM EDT [facility] AST (SGOT) 27 1 - 32 U/L 11/12/2024 5:51 PM EDT [facility] Alkaline Phosphatase 113 39 - 117 U/L 11/12/2024 5:51 PM EDT [facility] Total Bilirubin 0.2 0.0 - 1.2 mg/dL 11/12/2024 5:51 PM EDT [facility] Globulin 2.4 gm/dL 11/12/2024 5:51 PM EDT [facility] Comment:Calculated Result A/G Ratio 1.7 g/dL 11/12/2024 5:51 PM EDT [facility] BUN/Creatinine Ratio 23.3 7.0 - 25.0 11/12/2024 5:51 PM EDT [facility] Anion Gap 10.1 5.0 - 15.0 mmol/L 11/12/2024 5:51 PM EDT [facility] eGFR 58.1(L) >60.0 mL/min/1.7 3 11/12/2024 5:51 PM EDT [facility] Blood Venipuncture / Unknown 11/12/2024 5:17 PM EDT 11/12/2024 5:17 PM EDT Narrative [facility] - 11/12/2024 5:51 PM [...] MD LAB BLOOD ORDERABLES Fin al Result [facility]
[address] [id number], * Mammo screening digital tomosynthesis bilateral (04/06/2015 [...] in patients with adenosis or dense breasts. [employer] GUIDELIN[employer] For breast cancer detection in asymptomatic women- Age ACR Recommendations 35-40 Baseline Mammogram 40-49 Annual or Biannual Mammogram 50+ Annual Mammogram Annual physical and frequent self breast examination. Patient has been entered into an automatic reminder system. Addendum Reading Radiologist- DIYA GOEL Addendum Releasing Radiologist- DIYA GOEL Addendum Released Date Time- 04/19/15 1550 Addendum Investigator Internal Affairs- Jaylen BILATERAL SCREENING MAMMOGRAM WITH TOMOSYNTHESIS PNL- [...] in patients with adenosis or dense breasts. [employer] GUIDELIN[employer] For breast cancer detection in asymptomatic women- Age ACR Recommendations 35-40 Baseline Mammogram 40-49 Annual or Biannual Mammogram 50+ Annual Mammogram Annual physical and frequent self breast examination. Patient has been entered into an automatic reminder system. Reading Akash GOEL Releasing Akash GOEL Released Date Time- 04/06/15 1055 Investigator Internal Affairs- Dave Procedure Note Diya Goel Jr., MD [...] in patients with adenosis or dense breasts. [employer] GUIDELIN[employer] For breast cancer detection in asymptomatic women- Age ACR Recommendations 35-40 Baseline Mammogram 40-49 Annual or Biannual Mammogram 50+ Annual Mammogram Annual physical and frequent self breast examination. Patient has been entered into an automatic reminder system. Addendum Reading Akash GOEL Addendum Releasing Akash GOEL Addendum Released Date Time- 04/19/15 1550 Addendum Investigator Internal Affairs- Jaylen BILATERAL SCREENING MAMMOGRAM WITH TOMOSYNTHESIS PNL- [...] in patients with adenosis or dense breasts. [employer] GUIDELIN[employer] For breast cancer detection in asymptomatic women- Age ACR Recommendations 35-40 Baseline Mammogram 40-49 Annual or Biannual Mammogram 50+ Annual Mammogram Annual physical and frequent self breast examination. Patient has been entered into an automatic reminder system. Reading Radiologist- DIYA GOEL Releasing Radiologist- DIYA GOEL Released Date Time- 04/06/15 0402 Fernando Acosta us Gregorio Mcgee MD IMG MAMMOGRAPHY ORDERABLES Edite d Result - Final from Last 3 Months or Most Recently Relevant to Health Maintenance Insurance [facility] MEDICARE A & B Advance Directives * CPR (Attempt to Resuscitate) (Latest Code Status on File) Date Activated Date Inactivated Comments 11/13/2024 2:01 AM 11/14/2024 6:43 PM Question Answer Comments Code Status (Patient has no pulse and is not breathing): CPR (Attempt to Resuscitate) Medical Interventions (Patie nt has pulse or is breathing): Full Support Care Teams Occ Therapy Asst Relationship Specialty Start Date End Date Sandra Orozco APRN [address] [place] [address] SANDER BERMUDEZ [id number] PCP - General Internal Medicine 05/11/24
--- OUTSIDE RECORDS SUMMARY | 2024-12-25 10:47 | XMS_ITS | Encounter Summary ---
Author Organization [facility] ystem Address [address] [place] [address] Care Team Providers Care Casting Technician Name Role Phone Sandra Orozco APRN Primary Care Provider [phone] Encounter Details Date Type Department Care Team (Late st Contact Info) Description 11/16/2024 Readmission Management [facility] [address] [place] [address] Omaira Knapp RN Social History Tobacco Use Types Packs/Day Years Used Date Smoking Tobacco: Former Cigarettes Smokeless Tobacco: Never Comments:Smoked since 1973 Alcohol Use Standard Drinks/Week Comments Not Currently 0 (1 standard drink = 0.6 oz pur e alcohol) former [facility] Utilities Answer Date Recorded In the past 12 months has [employer], gas, oil, or water [employer] threatened to shut off services in your [...] care, and heating? Not very hard 11/13/2024 [facility] - Occupational [...] GED or equivalent No 11/13/2024 Preferred Language Kazakh 11/13/2024 PHQ-2 Answer Date Recorded Patient Health [...] AM EDT Prep Survey Flowsheet Row Responses [facility] patient discharged from? Tillar Is LACE score less than 10 ? [...] 11:00 AM EST Office Visit [facility] [address] [facility] [address] [place] [address] Dina Solano APRN [address] [facility] [address] [place] [address] documented as of this encounter Visit Diagnoses Not on filedocumented in this encounter Care Teams Casting Technician Relationship Specialty Start Date End Date Sandra Orozco APRN [address] [place] [address] [address] [place] [address] PCP - General Internal Medicine 05/11/24 documented as of this encounter
--- OUTSIDE RECORDS SUMMARY | 2024-12-25 10:47 | XMS_ITS | Continuity of Care Document ---
Author Organization [facility], PAIN MEDICINE [address] [place] [address] [address] Care [address] Patcher Name Role Phone GLADIS DELCID Primary Care Provider [phone] Assessment Encounter Date Assessment Date Assessment LastModified by Organization Details LastModified Time 10/27/2024 10/27/2024 Plan: I have personally reviewed this patient's MOHSEN report as per [place] medical board guidelines and it was found [...] The confirmation of urine testing on 08/25/24 was positive for hydrocodone, norhydrocodone, and hydromorphone. [...] medication. She states it allows her to be able to do what she needs to do. (Will increase medication to hydrocodone 5/325, 2x/day. [...] tablet daily at the next ov.) Dates: 11/01-12/01-12/31-May fill 10/30/24 Preventative Care: Referred by Winsome Gallagher APRN. Return to Clinic in two month to f/u on the treatment plan. [email or web address] Not available 10/27/2024 11:50:23 Plan of Treatment Reminders Order Date Submit Date Provider Last Modified By Organization Details Last Modified Time Details Appointments RECHECK 2024 10:00A M RAOUL KINSEY MD Not available Not available Not available Lab None recorded. Referral None recorded. Procedures None recorded. Surgeries None recorded. Imaging None recorded. Medication Orders hydrocodo ne 5 mg-acetam inophen 325 mg tablet 2024 025 [facility], [address] [place] [address], [id number], 10/27/2024 11:27:38 hydrocodo ne 5 mg-acetam inophen 325 mg tablet 2024 025 [facility], [address] [place] [address], [id number], 10/27/2024 11:27:38 Patient TargetsNo targets recorded. Patient InstructionsNo instructions recorded. Reason for Referral None Reported. 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 Procedures Surgical History Date Name Laterality Status Provider Name and Address Organization Details Recorded Time 04/10/19 Date of Last Mammogram completed Amira Hogan [facility] 05/04/2024 14:53:23 tonsillectomy completed [facility] Valerie [facility] 06/29/2021 11:07:23 partial hysterectomy completed [facility] Valerie [facility] 06/29/2021 11:07:41 cholecystectomy completed Kailey Valerie [facility] 06/29/2021 11:07:49 Unlisted px accessory sinus completed [facility] Valerie [facility] 06/29/2021 11:08:12 Unlisted px phrnx adnd/tnsl completed [facility] Valerie [facility] 06/29/2021 11:08:24 procedure on vein completed [facility] Valerie [facility] 06/29/2021 11:08:40 Appendectomy completed Amira Hogan [facility] 05/04/2024 14:53:09 Imaging Results None recorded. Procedure Notes None recorded. Medical Equipment None Reported. Allergies Allergen ID Allergen Name Allergen Category Reaction Reaction Severity Criticality Documentation Date Start Date Code Code System Note Provider Name and Address Organization Details Recorded Time 164503 Cipro medicatio n Not available Not available Not available 02/02/2016201156 3 RxNorm Comme nt: Creat ed By: Storm Bonner;Ruthie patrick Date: 2011 10:08 :22 AM; Not Available [facility] 6 12:52:49 [id number] Celebrex medicatio n Not available Not available Not available 02/03/20162011 08008 7 RxNorm Comme nt: Creat ed By: Storm Bonner;C reate d Date: 2011 10:08 :34 AM; Not [facility] 6 05:46:24 [id number] Levaquin medicatio n Not available Not available Not available 02/03/20162011 57047 2 RxNorm Comme nt: Creat ed By: Storm Bonner;C reate d Date: 2011 10:07 :37 AM; Not Available [facility] 6 08:06:37 462123 Macrobid medicatio n Not available Not available Not available 02/03/20162011 98293 1 RxNorm Comme nt: Creat ed By: Storm Bonner;C reate d Date: 2011 10:08 :04 AM; Not Available [facility] 6 08:06:37 977376 Product containin g penicilli n (product) medicatio n Not available Not available Not available 06/29/2021 80475 8001 SNOMED Kailey Valerie null, [facility] 2 11:02:22 [id number] gabapenti n medicatio n Not available Not available Not available 06/29/2021 91405 RxNorm Kailey Valerie null, [facility] 2 11:02:39 [id number] leflunomi de medicatio n Not available Not available Not available 06/29/2021 14186 RxNorm Kailey Valerie null, [facility] 2 11:02:54 232674 Naprosyn medicatio n Not available Not available Not available 06/29/2021 2 RxNorm Kailey Valerie null, [facility] 2 11:03:06 [id number] dextromet horphan hydrobrom mónica medicatio n Not available Not available Not available 05/04/2024 51763 0 RxNorm Amira Hogan [facility] 5 15:09:56 022378 Omnicef medicatio n Not available Not available Not available 05/04/2024 05971 RxNorm Amira Hogan [facility] 5 15:10:19 526884 nortripty line medicatio n Not available Not available Not available 05/04/2024 7531 RxNorm Amira Hogan [facility] 5 15:10:37 006206 Lyrica medicatio n Not available Not available Not available 05/04/2024 05990 1 RxNorm Amira Hogan [facility] 5 15:10:45 Medications Name Sig Start [...] Available prednison e 20 mg tablet TAKE 2 TABLETS BY MOUTH ONCE A DAY FOR 5 DAYS THEN RESUME YOUR LOW DOSE STEROIDS AFTER COMPLETI NG THIS HIGH 40MG/DAY DOSE active Not Available Not Available No t Available prednison e 5 mg tablet see attached instruct ions active Not Available Not Available No t Available clindamyc in HCl 150 mg capsule [...] ne 7.5 mg-acetam inophen 325 mg tablet Take 1 tablet 3 times a day by oral route as needed for 30 days. 2024 active Not Available Not Available Not Avai lable cephalexi n 500 mg capsule TAKE 1 [...] quency: daily;Me dication Descript ion: hydrochl orothiaz móncia-tria mterene; Dosage:1 ; Route:or al; refills: 0 [...] completed Not Available Not Available Not Available azelastin e 137 mcg (0.1 %) nasal spray INSTILL 1 SPRAY INTO EACH NOSTRIL EVERY 6 HOURS NEEDED FOR ALLERGY SYMPTOMS active Not Available Not Available No t Available Pulmicort 0.25 mg/2 mL suspensio n [...] active Not Available Not Available Not Available folic acid active Not Available Not Available Not Available [...] Available Pro Fe 180 mg iron capsule TAKE 1 CAPSULE BY MOUTH ONCE A DAY active Not Available Not Available No t Available Astepro 205.5 mcg (0.15 %) nasal [...] 0 Not Available Not Available Not Available Probiotic active Not Available Not Rebecca ilable Not Available Xarelto 15 mg tablet TAKE [...] saturation in Arterial blood by Pulse oximetry Heart rate Systolic And Diastolic Provider Name and Address Organization Details Last Updated DateTime 152.4 cm 34.8 kg/m2 80926.4 4 g 6 93 % 93 % 82 /min 122/66 mm[Hg] Malena Sotomayor [facility] 5 10:51:07 Social History Question Answer Notes LastModified by Organizat ion Details LastModified Time Tobacco Smoking Status [facility] 14:27:06 What Was The Date Of Your Most Recent Tobacco Screening? 12/22/2024 [email or web address] Information not available 12/22/2024 How Much Tobacco Do You Smoke? 0.5 [...] 06/29/2021 Are you currently employed? No disabled [place] [address] Information not available 05/04/2024 Mental Status None recorded. Family History Relationship Description Onset Age of this Age Resolved Age Notes LastModified by Organization Details LastModified Time Unspecified Relation Malignant neoplastic disease Not available 04/12 14:49:35 Unspecified Relation Diabetes mellitus [email or web address] Not available 04/12 14:49:35 Mother Familial cancer of breast [email or web address] Not available 04/12 14:49:35 Mother Malignant neoplasm of pancreas [email or web address] Not available 2024 14:51:13 Mother Chronic obstructive pulmonary disease Not available 2024 14:51:40 Father Hypercholest erolemia [email or web address] Not available 2024 14:51:58 Medical History Condition Response Other N Thyroid Disease N Kidney Stones N Blood Transfusion N Breast Cancer N Emphysema Y Colon/Rectal Disorders N Sexually Transmitted Disease N Glaucoma N Depression Y COPD Y Pneumonia Y Breast Problem Y Measles Y Varicose Veins Y Anxiety Disorder Y Attempted Suicide N Arthritis Y Hearing Loss Y Blood Clot Y Cancer N Stroke Y Crohn's Disease N Radiation Therapy N Blood Thinners Y High Cholesterol N Neurologic Disorder N Liver Disease N Fibromyalgia Y Headaches N Endocrine Disorder N Kidney Disease N Heart Problems Y Skin Problems Y Osteoporosis/Osteopenia Y Meningitis N Ulcers N Heart Attack ([place]) N Mental Illness Y Ovarian Cancer N Diabetes N Rheumatic Fever N Bleeding Disorder N Tuberculosis N AIDS/HIV N Congestive Heart Failure (CHF) Y Eczema N Diverticulitis N Asthma Y Epilepsy/Seizures N Sleep Apnea Y Thyroid Disorder N Hepatitis N Heart Disease N Osteoporosis Y Gynecological History Statement/Question Response # of Pregnancies [...] Diagnosis SNOMED-CT Code Diagnosis ICD10 Code Diagnosis IMO Codes Diagnosis Note [id number] RAOUL KINSEY MD PAIN MEDICINE [address] [facility] [place] [address] 10/27/2024 10:42:37 10/27/2024 11:09:07 Chronic low back pain 265140043 M54.50 Degenerati on of lumbar intervertebral disc 93499582 M51.362 Spinal hilda nosis of lumbar region 96377473 M48.062 Health Concerns Section Related Observation LastModified by Organization Detai ls LastModified Time None Recorded Concern Status LastModified by Organization Details LastModified Time None Recorded Payers Encounter Date Sequence Insurance Name Policy Number Policy Sanchez Covered Member ID Sanchez Member ID Guarantor Name 10/27/2024 1 [place] Casi Cruz [id number] Casi Cruz 10/27/2024 2 [employer]BINED [employer] - [employer] (MEDICARE SUPPLEMENT) Casi Cruz [id number] Casi Cruz Notes Date Note Type Note Provider Name and Address Organization Details Recorded Time 10/27/2024 text/html The pt complains of low back pain and multijoint pain. The pt did not have any new pain complaints. She is not going outside bc it is difficult to breathe with the humidity. (From ov on 06/25/24: The pt states [...] make be helping her.) (From ov on 10/15/24: The pt states she is having increased [...] bladder-leaks. She states she does take an nrwu-tov-khsimot stool softener/laxative. She states she has been using the stool softener/laxative more often because she was slightly constipated. The pt is sleeping approximately 2-3 hours per night. The pt is not working. The pt reports that she has not fallen since her last ov. The pt ambulates without an AD. The pt is accompanied by a friend at today s visit.Etoh-Denied. Tobacco-Denied. CBD-Denied. RAOUL KINSEY MD [address] [place], [address], [facility] 10/27/2024 11:51:05 OBGyn Episode No OBEpisode recorded.
--- OUTSIDE RECORDS SUMMARY | 2024-12-25 10:47 | XMS_ITS | Data Portability ---
Author Organization [facility] NASEEM Chandler SAWYER CLOSED Address [address] [place] [address] Care Team Providers Care Swat Team Member Name Role Phone GLADIS DELCID Primary Care Provider [phone] Assessment Encounter Date Assessment Date Assessment LastModified by Organization Details LastModified Time 06/25/2024 06/25/2024 Plan: I have personally reviewed this patient's MOHSEN report as per [place] medical board guidelines and it was found [...] ov.) Dates: 07/03-08/02- Preventative Care: Referred by Juanita Gallagher APRN. Return to Clinic in two month to f/u on the treatment plan. [email or web address] Not available 06/25/2024 12:11:48 08/25/2024 08/25/2024 Plan: I have personally reviewed this patient's MOHSEN report as per [facility] board guidelines and it was found [...] treatment plan. [email or web address] Not available 08/25/2024 11:04:56 10/27/2024 10/27/2024 Plan: I have personally reviewed this patient's MOHSEN report as per [place] medical board guidelines and it was found [...] 11/01-12/01-12/31-May fill 10/30/24 Preventative Care: Referred by Juanita Gallagher APRN. Return to Clinic in two month to f/u on the treatment plan. [email or web address] Not available 10/27/2024 11:50:23 12/22/2024 12/22/2024 Plan: I have personally reviewed this patient's MOHSEN report as per [place] medical board guidelines and it was found [...] injections have not helped her.) Medications: Will increase the pt's medication to hydrocodone 7.5/325, 3x/day. She states if the iron transfusion helps her pain, she will just cut back on her pain medication. She is aware she should take 2 tablets/day for the first ten days, then she can increase to 3x/day, if needed. (FRom ov on 10/27/24: Will continue norco 5/325, 3x/day. She does not have any problems with the pain medication. She states it allows her to be able to do what she needs to do.) (Will increase medication to hydrocodone 5/325, 2x/day. [...] tablet daily at the next ov.) Dates: 12/30-01/29- Preventative Care: Referred by Juanita Gallagher APRN. Return to Clinic in two month to f/u on the treatment plan. [email or web address] Not available 12/22/2024 13:29:13 Plan of Treatment Reminders Order Date Submit Date Provider Last Modified By Organization Details Last Modified Time Details Appointments RECHECK 2024 10:00A M RAOUL KINSEY MD Not available Not available Not available Lab None recorded. Referral None recorded. Procedures None recorded. Surgeries None recorded. Imaging None recorded. Medication Orders hydrocodo ne 7.5 mg-acetam inophen 325 mg tablet 2024 025 [facility], [address] [place] [address] [place], [id number], 12/22/2024 11:18:36 hydrocodo ne 7.5 mg-acetam inophen 325 mg tablet 2024 025 [facility], [address] [place] [address], [place], [id number], 12/22/2024 11:18:36 hydrocodo ne 5 mg-acetam inophen 325 mg tablet 2024 025 [facility], [address] [place] [address], [place], [id number], 10/27/2024 11:27:38 hydrocodo ne 5 mg-acetam inophen 325 mg tablet 2024 025 [facility], [address] [place] [address], [place], [phone], 10/27/2024 11:27:38 hydrocodo ne 5 mg-acetam inophen 325 mg tablet 2024 025 [facility], [address] [place] [address] [place], [id number], 08/25/2024 11:08:17 hydrocodo ne 5 mg-acetam inophen 325 mg tablet 2024 025 [facility], [address], [id number], 08/25/2024 11:08:18 hydrocodo ne 5 mg-acetam inophen 325 mg tablet 2024 025 [facility], [address], [id number], 06/25/2024 11:29:57 hydrocodo ne 5 mg-acetam inophen 325 mg tablet 2024 025 [facility], [address], [id number], 06/25/2024 11:29:56 Patient TargetsNo targets recorded. Patient InstructionsNo instructions recorded. Reason for Referral None Reported. Results Created Date Observation Date Name Description Value Unit Range Abnormal Flag Note LastModifiedBy Organization Detail LastModifiedTime 08/26/1908/27/2024 HIGH RISK DRUG PANEL gabapentin NEGATI VE NG/mL <1000 normal Not Available [facility] [address] [place], [address], 08/30/2024 17:49:46 08/26/19 25 08/27/2024 HIGH RISK DRUG PANEL pregabalin, qt ur NEGATI VE NG/mL <1000 normal Not Available [facility] [address] [place], [address], 08/30/2024 17:49:46 08/26/19 25 08/27/2024 HIGH RISK DRUG PANEL desmethyltra madol NEGATI VE NG/mL <100 normal Not Available [facility] [address] [place], [address], 08/30/2024 17:49:46 08/26/19 25 08/27/2024 HIGH RISK DRUG PANEL tramadol NEGATI VE NG/mL <100 normal Not Available [facility] [address] [place] [address], [address], 08/30/2024 17:49:46 08/26/19 25 08/27/2024 HIGH RISK DRUG PANEL tapentadol NEGATI VE NG/mL <50 normal Not Available [facility] [address] [place] [address], [address], 08/30/2024 17:49:46 08/26/19 25 08/27/2024 HIGH RISK DRUG PANEL nortapentado l NEGATI VE NG/mL <50 normal Not Available [facility] [address] [place] [address], [address], 08/30/2024 17:49:46 08/26/19 25 08/27/2024 HIGH RISK DRUG PANEL ethyl glucuronide NEGATI VE NG/mL <500 normal Not Available [facility] [address] [place] [address], [address], 08/30/2024 17:49:46 08/26/19 25 08/27/2024 HIGH RISK DRUG PANEL ethyl sulfate NEGATI VE NG/mL <100 normal Not Available [facility] [address] [place] [address], [address], 08/30/2024 17:49:46 08/26/19 25 08/27/2024 HIGH RISK DRUG PANEL buprenorphin e NEGATI VE NG/mL <2 normal Not Available [facility] [address] [place] [address], [address], 08/30/2024 17:49:46 08/26/19 25 08/27/2024 HIGH RISK DRUG PANEL norbuprenorp shadi NEGATI VE NG/mL <2 normal Not Available [facility] [address] [place] [address], [address], 08/30/2024 17:49:46 08/26/19 25 08/27/2024 HIGH RISK DRUG PANEL naloxone NEGATI VE NG/mL <2 normal Not Available [facility] [address] [place] [address], [address], 08/30/2024 17:49:46 08/26/19 25 08/30/2024 HIGH RISK DRUG PANEL amphetamines NEGATI VE NG/mL <500 normal Not Available [facility] [address] [place] [address], [address], 08/30/2024 17:49:46 08/26/19 25 08/30/2024 HIGH RISK DRUG PANEL barbiturates NEGATI VE NG/mL <300 normal Not Available [facility] [address] [place] [address], [address], 08/30/2024 17:49:46 08/26/19 25 08/30/2024 HIGH RISK DRUG PANEL benzodiazepi rufus NEGATI VE NG/mL <100 normal Not Available [facility] [address] [place] [address], [address], 08/30/2024 17:49:46 08/26/19 25 08/30/2024 HIGH RISK DRUG PANEL marijuana metabolite NEGATI VE NG/mL <20 normal Not Available [facility] [address] [place] [address], [address], 08/30/2024 17:49:46 08/26/19 25 08/30/2024 HIGH RISK DRUG PANEL cocaine metabolite NEGATI VE NG/mL <150 normal Not Available [facility] [address] [place] [address], [address], 08/30/2024 17:49:46 08/26/19 25 08/30/2024 HIGH RISK DRUG PANEL methadone metabolite NEGATI VE NG/mL <100 normal Not Available [facility] [address] [place] [address], [address], 08/30/2024 17:49:46 08/26/19 25 08/30/2024 HIGH RISK DRUG PANEL opiates POSITI VE NG/mL <100 abnormal Not Available [facility] [address] [place], [address], 08/30/2024 17:49:46 08/26/19 25 08/30/2024 HIGH RISK DRUG PANEL codeine NEGATI VE NG/mL <50 normal Not Available [facility] [address] [place] [address], [address], 08/30/2024 17:49:46 08/26/19 25 08/30/2024 HIGH RISK DRUG PANEL hydrocodone 3424 NG/mL <50 high Not Available [facility] [address] [place] [address], [address], 08/30/2024 17:49:46 08/26/19 25 08/30/2024 HIGH RISK DRUG PANEL hydromorphon e 186 NG/mL <50 high Not Available [facility] [address] [place] [address], [address], 08/30/2024 17:49:46 08/26/19 25 08/30/2024 HIGH RISK DRUG PANEL morphine NEGATI VE NG/mL <50 normal Not Available [facility] [address] [place] [address], [address], 08/30/2024 17:49:46 08/26/19 25 08/30/2024 HIGH RISK DRUG PANEL norhydrocodo ne 1612 NG/mL <50 high Not Available [facility] [address] [place] [address], [address], 08/30/2024 17:49:46 08/26/19 25 08/30/2024 HIGH RISK DRUG PANEL oxycodone NEGATI VE NG/mL <100 normal Not Available [facility] [address] [place] [address], [address], 08/30/2024 17:49:46 08/26/19 25 08/30/2024 HIGH RISK DRUG PANEL phencyclidin e NEGATI VE NG/mL <25 normal Not Available [facility] [address] [place] [address], [address], 08/30/2024 17:49:46 08/26/19 25 08/30/2024 HIGH RISK DRUG PANEL creatinine 226.2 mg/dL > or = 20.0 normal Not Available [facility] [address] [place], [address], 08/30/2024 17:49:46 08/26/19 25 08/30/2024 HIGH RISK DRUG PANEL specific gravity 1.012 > or = 1.003 normal Not Available [facility] [address] [place], [address], 08/30/2024 17:49:46 08/26/1908/30/2024 HIGH RISK DRUG PANEL pH 5.7 4.5-9. 0 normal Not Available [facility] [address] [place], [address], 08/30/2024 17:49:46 08/26/19 25 08/30/2024 HIGH RISK DRUG PANEL oxidant NEGATI VE mcg/m L <200 normal Not Available [facility] [address] [place], [address], 08/30/2024 17:49:46 08/26/1908/30/2024 HIGH RISK DRUG PANEL [...] condi tions . Opiat es Notes : [place] codon e, Norhy droco done, [place] morph one detec abbie is consi stent with the use of the drug [place] codon e. [place] morph one detec abbie is consi stent with the use of the drug [place] morph one. [place] morph one can be a presc ribed drug and is also a metab olite of [place] codon e. Confi rmati on testi ng Perfo rmed at: [facility] [address] [place] [address] Labor atory Direc tor: ZEUS DALTON George PEGUERO S CLIA: [id number] LDT Notes : Confi rmati on tests [...] M-F, 8am to 10pm EST Not Available [facility] [address] [place] [address], [address], 08/30/2024 17:49:46 08/26/19 25 08/30/2024 HIGH RISK DRUG PANEL fentanyl NEGATI VE NG/mL <0.5 normal Not Available [facility] [address] [place] [address], [address], 08/30/2024 17:49:46 08/26/19 25 08/30/2024 HIGH RISK DRUG PANEL heroin metabolite, qt ur NEGATI VE NG/mL <10 normal Not Available [facility] [address] [place] [address], [address], 08/30/2024 17:49:46 04/14/19 25 04/14/2024 XR, lumbo sacra l spine , 2 or 3 view, bendi ng only [facility] [address] [place] [address] [place] [address] Kirstieshashi morse Name: MARTHA morse : 959 eRi morse Orderi ng Provid er: LIA MORAES EXAM DATE: 2024 EXAM: XR LUMBAR SPINE [...] Edin Luke MD on 04/14/19 12:15 PM [email or web address] [facility] [address] [place], [address], 06/23/2024 15:57:27 Result Notes None recorded. Problems Name Problem SNOMED Code Status Onset Date Resolution Date Notes Provider Name and Address Organization Details Recorded Time Low back pain 011428040 Active Status: Active Not Available [facility] 7 06:47:46 Disorder of bone and articular cartilage 802406805 Active 2015 Status: Active Not Available [facility] 6 05:37:02 Lumbosacr al radiculop athy 9319393 Active 2015 From Automated Load;Provi boris: Lux Fernández; atus: Active Not Available [facility] 7 08:30:56 Problem Notes None recorded. Procedures Surgical History Date Name Laterality Status Provider Name and Address Organization Details Recorded Time 04/10/19 Date of Last Mammogram completed Amira Hogan [facility] 05/04/2024 14:53:23 tonsillectomy completed [facility] 06/29/2021 11:07:23 partial hysterectomy completed [facility] 06/29/2021 11:07:41 cholecystectomy completed [facility] 06/29/2021 11:07:49 Unlisted px accessory sinus completed Kailey Castellanodie [facility] 06/29/2021 11:08:12 Unlisted px phrnx adnd/tnsl completed Kailey Castellanodie [facility] 06/29/2021 11:08:24 procedure on vein completed Kailey Castellanodie Dina [facility] 06/29/2021 11:08:40 Appendectomy completed Amira Samira [facility] 05/04/2024 14:53:09 Imaging Results None recorded. Procedure Notes None recorded. Medical Equipment None Reported. Allergies Allergen ID Allergen Name Allergen Category Reaction Reaction Severity Criticality Documentation Date Start Date Code Code System Note Provider Name and Address Organization Details Recorded Time 22101015 Cipro medicatio n Not available Not available Not available 02/02/2016201156 3 RxNorm Comme nt: Creat ed By: Storm HigginsC reate d Date: 2011 10:08 :22 AM; Not Available [facility] 6 12:52:49 255823 Celebrex medicatio n Not available Not available Not available 02/03/20162011 37328 7 RxNorm Comme nt: Creat ed By: Storm HigginsC reate d Date: 2011 10:08 :34 AM; Not Available [facility] 6 05:46:24 975934 Levaquin medicatio n Not available Not available Not available 02/03/20162011 99298 2 RxNorm Comme nt: Creat ed By: Storm HigginsC reate d Date: 2011 10:07 :37 AM; Not Available [facility] 6 08:06:37 040830 Macrobid medicatio n Not available Not available Not available 02/03/20162011 60574 1 RxNorm Comme nt: Creat ed By: Storm HigginsC reate d Date: 2011 10:08 :04 AM; Not Available [facility] 6 08:06:37 694724 Product containin g penicilli n (product) medicatio n Not available Not available Not available 06/29/2021 62056 8001 SNOMED Kailey Valerie null, [facility] 2 11:02:22 079952 gabapenti n medicatio n Not available Not available Not available 06/29/2021 08362 RxNorm Kailey Valerie null, [facility] 2 11:02:39 055727 leflunomi de medicatio n Not available Not available Not available 06/29/2021 11268 RxNorm Kailey Valerie [facility] 2 11:02:54 539607 Naprosyn medicatio n Not available Not available Not available 06/29/2021 2 RxNorm [facility] 11:03:06 610866 dextromet horphan hydrobrom mónica medicatio n Not available Not available Not available 05/04/2024 74400 0 RxNorm Amira Hogan [facility] 5 15:09:56 253994 Omnicef medicatio n Not available Not available Not available 05/04/2024 26545 RxNorm Amira Hogan [facility] 5 15:10:19 527029 nortripty line medicatio n Not available Not available Not available 05/04/2024 7531 RxNorm Amira Hogan [facility] 5 15:10:37 858662 Lyrica medicatio n Not available Not available Not available 05/04/2024 35019 1 RxNorm Amira Hogan [facility] 5 15:10:45 Medications Name Sig Start Date [...] Updated DateTime 5 152.4 cm 35.3 kg/m2 13117.4 3 g 69 /min 86 % 86 % 110/50 mm[Hg] Amira Hogan [facility] 5 15:03:21 Date Recorded Body height Body mass index (BMI) Body weight Pain severity - 0-10 verbal numeric rating [Score] - Reported Oxygen saturation Oxygen saturation in Arterial blood by Pulse oximetry Inhaled oxygen flow rate Provider Name and Address Organization Details Last Updated DateTime 5 152.4 cm 35.7 kg/m2 15246.4 g 8 94 % 94 % 2 L/min [facility] 5 11:11:53 Date Recorded Body height Body mass index (BMI) Body weight Pain severity - 0-10 verbal numeric rating [Score] - Reported Oxygen saturation Oxygen saturation in Arterial blood by Pulse oximetry Inhaled oxygen flow rate Heart rate Systolic And Diastolic Provider Name and Address Organization Details Last Updated DateTime 5 152.4 cm 34.8 kg/m2 75836.4 4 g 9 94 % 94 % 1 L/min 79 /min 122/64 mm[Hg] [facility] 5 10:45:12 Date Recorded Body height Body mass index (BMI) Body weight Pain severity - 0-10 verbal numeric rating [Score] - Reported Oxygen saturation Oxygen saturation in Arterial blood by Pulse oximetry Heart rate Systolic And Diastolic Provider Name and Address Organization Details Last Updated DateTime 5 152.4 cm 34.8 kg/m2 47849.4 4 g 6 93 % 93 % 82 /min 122/66 mm[Hg] Malena Sotomayor [facility] 5 10:51:07 Date Recorded Body height Body mass index (BMI) Body weight Pain severity - 0-10 verbal numeric rating [Score] - Reported Oxygen saturation Oxygen saturation in Arterial blood by Pulse oximetry Inhaled oxygen flow rate Heart rate Systolic And Diastolic Provider Name and Address Organization Details Last Updated DateTime 5 152.4 cm 35 kg/m2 42528.0 3 g 9 90 % 90 % 2 L/min 73.02 /min 118/64 mm[Hg] Blanca Gannon [facility] 10:50:52 Social History Question Answer Notes LastModified by Organizat ion Details LastModified Time Tobacco Smoking Status [facility] 11/19/2023 14:27:06 What Was The [...] you currently employed? No disabled [place] [address] Information not available 05/04/2024 Mental Status None recorded. Family History Relationship Description Onset Age of this Age Resolved Age Notes LastModified by Organization Details LastModified Time Unspecified Relation Malignant neoplastic disease Not available 04/12 14:49:35 Unspecified Relation Diabetes mellitus [email or web address] Not available 04/12 14:49:35 Mother Familial cancer of breast [email or web address] Not available 04/12 14:49:35 Mother Malignant neoplasm of pancreas Not available 2024 14:51:13 Mother Chronic obstructive pulmonary disease [email or web address] Not available 2024 14:51:40 Father Hypercholest erolemia [email or web address] Not available 2024 14:51:58 Medical History Condition Response Other N Kidney Stones N Blood Transfusion N Emphysema Y Sexually Transmitted Disease N COPD Y Depression Y Pneumonia Y Anxiety Disorder Y Arthritis Y Blood Clot Y Cancer N Stroke Y Crohn's Disease N Neurologic Disorder N Headaches N Fibromyalgia Y Endocrine Disorder N Kidney Disease N Heart Problems Y Skin Problems Y Meningitis N Ulcers N Rheumatic Fever N Bleeding Disorder N Tuberculosis N AIDS/HIV N Asthma Y Thyroid Disorder N Hepatitis N Thyroid Disease N Breast Cancer N Colon/Rectal Disorders N Glaucoma N Breast Problem Y Measles Y Varicose Veins Y Attempted Suicide N Hearing Loss Y Radiation Therapy N Blood Thinners Y High Cholesterol N Liver Disease N Osteoporosis/Osteopenia Y Heart Attack ([place]) N Mental Illness Y Diabetes N Ovarian Cancer N Congestive Heart Failure (CHF) Y Eczema N Diverticulitis N Epilepsy/Seizures N Sleep Apnea Y Heart Disease N Osteoporosis Y Gynecological History [...] ICD10 Code Diagnosis IMO Codes Diagnosis Note [id number] LUX FERNÁNDEZ MD [facility] [address] [place] [address] 01/18/2020 12:49:41 01/18/2020 15:14:53 Lumbar radiculopathy 047150853 M54.16 Time spent reviewing images, discussing the diagnosis and coordinati ng care: 30min [id number] DILIP BILL PA-C [facility] [address] [place] [address] 06/29/2021 10:15:51 07/04/2021 09:16:52 Lumbar radiculopathy 881196925 M54.16 [id number] GLENDA TUTTLE PA-C [facility] [address] [place] [address] 11/20/2021 10:07:54 11/27/2021 14:55:22 Lumbar spondylosis 112135245 M47.896 [id number] LUX FERNÁNDEZ MD SURGERY SCHEDULE [address] [place] [address] 02/09/2022 09:11:14 02/09/2022 10:30:20 [id number] LUX FERNÁNDEZ MD [facility] [address] [place] [address] 02/14/2022 13:50:04 02/26/2022 16:15:54 [id number] LUX FERNÁNDEZ MD [facility] [address] [place] [address] 03/15/2022 09:39:55 03/16/2022 16:35:55 Postoperative care [id number] Z48.89 [id number] JUANITA VALDERRAMA APRN [facility] [address] [place] [address] 10/03/2023 12:25:46 10/04/2023 04:49:26 Lumbar radiculopathy 151428151 M54.16 Compressio n fracture of lumbar spine 584933892 M48.56XA Impairment of balance 38 4950353 R26.89 Poor manual dexterity 30 6331303 R29.898 [id number] LIA MORAES MD SURGERY SCHEDULE [address] [place] [address] 11/01/2023 13:01:26 11/05/2023 10:00:09 [id number] RAOUL KINSEY MD PAIN MEDICINE CLOSED [address] [place] [address] 1 11/19/2023 13:39:01 11/19/2023 15:00:53 Chronic low back pain 445879646 M54.50 Degenerati on of lumbar intervertebral disc 98449632 M51.36 Spinal hilda nosis of lumbar region 95446618 M48.062 [id number] RAOUL KINSEY MD [facility] CLOSED [address] [place] [address] 1 11/26/2023 12:42:31 11/26/2023 12:56:48 Chronic low back pain 012457365 M54.50 Degenerati on of lumbar intervertebral disc 37710701 M51.36 Spinal hilda nosis of lumbar region 96665208 M48.062 [id number] BIANCA ESPAÑA PA-C [facility] [address] [place] [address] 11/26/2023 13:56:01 11/27/2023 04:57:02 Postoperative visit 037597682 Z48.89 [id number] RAOUL KINSEY MD PAIN MEDICINE CLOSED [address] [place] [address] 12/24/2023 12:33:05 12/24/2023 13:02:45 Chronic low back pain 254397154 M54.50 The prescripti on to be filled on 12/27/23 was cancelled. The prescripti on sent to [facility] was cancelled. Degenerati on of lumbar intervertebral disc 27234968 M51.362 Spinal hilda nosis of lumbar region 21444032 M48.062 [id number] BIANCA ESPÑAA PA-C [facility] [address] [place] [address] 01/10/2024 09:40:04 01/11/2024 04:31:11 Lumbar radiculopathy 063130786 M54.16 [id number] RAOUL KINSEY MD PAIN MEDICINE CLOSED [address] [place] [address] 02/20/2024 12:35:26 02/20/2024 12:58:34 Chronic low back pain 507738847 M54.50 Degenerati on of lumbar intervertebral disc 52565245 M51.362 Spinal hilda nosis of lumbar region 71603989 M48.062 [id number] BIANCA ESPAÑA PA-C [facility] [address] [place] [address] 04/14/2024 13:13:45 04/15/2024 08:29:03 Lumbar radiculopathy 572775659 M54.16 [id number] RAOUL KINSEY MD PAIN MEDICINE CLOSED [address] [place] [address] 04/16/2024 11:04:40 04/16/2024 11:22:08 Chronic low back pain 900770557 M54.50 Degenerati on of lumbar intervertebral disc 42093067 M51.362 Spinal hilda nosis of lumbar region 52093648 M48.062 [id number] NIHARIKA BOCANEGRA APRN BREAST SURGERY SB [address] [place] [address] 1 05/04/2024 14:30:28 05/10/2024 04:08:11 Inversion of right nipple 4986329751 [id number] N64.59 Patient and I reviewed her medical [...] an as-needed basis. Decreased capillary filling time 79378156 R94.39 [id number] RAOUL KINSEY MD PAIN MEDICINE CLOSED [address] [place] [address] 1 06/25/2024 11:02:23 06/25/2024 11:26:16 Chronic low back pain 152198153 M54.50 Degenerati on of lumbar intervertebral disc 68477909 M51.362 Spinal hilda nosis of lumbar region 54971502 M48.062 [id number] RAOUL KINSEY MD PAIN MEDICINE [address] [place] [address] 1 08/25/2024 10:26:44 08/25/2024 10:55:10 Chronic low back pain 976388287 M54.50 Degenerati on of lumbar intervertebral disc 43270199 M51.362 Spinal hilda nosis of lumbar region 24338331 M48.062 [id number] RAOUL KINSEY MD PAIN MEDICINE [address] [address] 1 10/27/2024 10:42:37 10/27/2024 11:09:07 Chronic low back pain 983450206 M54.50 Degenerati on of lumbar intervertebral disc 41368482 M51.362 Spinal hilda nosis of lumbar region 48171820 M48.062 [id number] RAOUL KINSEY MD PAIN MEDICINE [address] [place] [address] 12/22/2024 10:37:41 12/22/2024 10:59:26 Chronic low back pain 304076427 M54.50 Degenerati on of lumbar intervertebral disc 63791448 M51.362 Spinal hilda nosis of lumbar region 87325286 M48.062 Health Concerns Section Related Observation LastModified by Organization Detai ls LastModified Time None Recorded Concern Status LastModified by Organization Details LastModified Time None Recorded Advance Directives Directive None Recorded Payers Insurance Date Sequence Insurance Name Policy Number Policy Sanchez Covered Member ID Sanchez Member ID Guarantor Name 12/19/2024 1 [place] ([place]ARE[place] Casi Cruz [id number] Casi Cruz 10/15/2023 2 COMBINED INSURANCE - [employer] (MEDICARE SUPPLEMENT) Casi Cruz [id number] Casi Cruz Notes Date Note Type Note Provider Name and Address Organization Details Recorded Time 05/04/2024 text/html Casi Cruz is a 63 yo female, new to our [...] mass. Family history of breast (late 60 s ) and pancreatic cancers in her mother, lymphoma in sister, and colon cancer in maternal aunt. Personal h/o left breast biopsy x1 and right breast cyst aspiration in past. Lifetime risk = 3.85% by elisabeth Kline. 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 CBD-Denied. 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 She states she does take an tbpt-vza-liwsbsj stool softener/laxative. She does not want to use anything regularly. The pt is sleeping approximately 2-3 hours per night. The pt is not working. The pt reports that she has not fallen since her last ov. The pt ambulates without an AD. The pt is accompanied by a friend at today s visit.Etoh-Denied. Tobacco-Denied. CBD-Denied. RAOUL KINSEY MD [address] [place] [address], [phone], [facility] 08/25/2024 11:07:39 10/27/2024 text/html The pt complains of low [...] bladder-leaks. She states she does take an ilmz-vnp-upnibdy stool softener/laxative. She states she has been [...] s visit.Etoh-Denied. Tobacco-Denied. CBD-Denied. RAOUL KINSEY MD [address] [place] [address], [phone], [facility] 10/27/2024 11:51:05 12/22/2024 text/html The pt complains of low back pain and multijoint pain. The pt did not have any new pain complaints. The pt would like to have an increased dose of pain medication. She states all of her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
--- OUTSIDE RECORDS SUMMARY | 2024-12-25 10:47 | XMS_ITS | Encounter Summary ---
Author Organization [facility] Address [address] [place] [address] Care Team Providers Care Manager Organizational Name Role Phone Sandra Orozco APRN Primary Care Provider [phone] Encounter Details Date Type Department Care Team (Latest Contact Info) Description 11/26/2024 Travel Social History Tobacco Use Types Packs/Day Years Used Date Smoking Tobacco: Former Cigarettes 2 45 Q uit: 05/10/2023 Smokeless Tobacco: Never Comments:Liked to smoke Alcohol Use Standard Drinks/Week Comments Not Currently 0 (1 standard drink = 0.6 oz pur e alcohol) former [facility] Utilities Answer Date Recorded In the past 12 months has [employer] electric, gas, oil, or water company threatened [...] care, and heating? Not very hard 11/13/2024 [facility] [place] of Occupat ional Health - Occupational Stress [...] GED or equivalent No 11/13/2024 Preferred Language Afghan 11/13/2024 PHQ-2 Answer Date Recorded Patient Health [...] Visit [facility] [address] [facility] [address], [place] [address] Dina Solano APRN [address] [facility] [address], [place] [address] documented as of this encounter Visit Diagnoses Not on filedocumented in this encounter Care Teams Manager Organizational Relationship Specialty Start Date End Date Sandra Orozco APRN [address] [place] [address] [address] PCP - General Internal Medicine 05/11/24 documented as of this encounter
--- OUTSIDE RECORDS SUMMARY | 2024-12-25 10:48 | XMS_ITS | Encounter Summary ---
Author Organization [facility] ystem Address [address] [place] [address] Care Team Providers Care Multicultural Manager Name Role Phone Sandra Orozco APRN Primary Care Provider [phone] Encounter Details Date Type Department Care Team (Late st Contact Info) Description 11/23/2024 Readmission Management [facility] [address] [place] [address] Eloise Farrar RN Social History Tobacco Use Types Packs/Day Years Used Date Smoking Tobacco: Former Cigarettes Smokeless Tobacco: Never Comments:Smoked since 1973 Alcohol Use Standard Drinks/Week Comments Not Currently 0 (1 standard drink = 0.6 oz pur e alcohol) former [facility] Utilities Answer Date Recorded In the past 12 months has [employer], gas, oil, or water [employer] threatened to shut off services in your [...] care, and heating? Not very hard 11/13/2024 [facility] of Occupat ional Health [...] CHF Week 1 Survey Flowsheet Row Responses [facility] patient discharged from? [place] Does the patient have one of the following disease processes/diagnoses(primary or secondary)? CHF CHF Week 1 attempt successful? No Unsuccessful attempts Attempt 1 ELOISE Cruz - Registered Nurse documented in this encounter Plan of Treatment Upcoming Encounters Date Type Department Care Team (Late st Contact Info) Description 02/16/2025 11:00 AM EST Office Visit [facility] C[facility]Y [address] [facility] [address] [place] [address] Dina Solano APRN [address] [facility] [address] [place] [address] documented as of this encounter Visit Diagnoses Not on filedocumented in this encounter Care Teams Multicultural Manager Relationship Specialty Start Date End Date Sandra Orozco APRN [address] [facility] [address] [facility] [address] [place] [address] PCP - General Internal Medicine 05/11/24 documented as of this encounter
--- OUTSIDE RECORDS SUMMARY | 2024-12-25 10:48 | XMS_ITS | Continuity of Care Document ---
Author Organization [facility], PAIN MEDICINE [address] [place] [address] Care Team Providers Care Personalized Living Manager Name Role Phone GLADIS DELCID Primary Care Provider Assessment Encounter Date Assessment Date Assessment LastModified by Organization Details LastModified Time 12/22/2024 12/22/2024 Plan: I have personally reviewed this patient's MOHSEN report as per [place] medical board guidelines and it was found [...] ov.) Dates: 12/30-01/29- Preventative Care: Referred by Winsome Gallagher APRN. [...] mg-acetam inophen 325 mg tablet 2024 025 [facility], [address] [place], [id number], 12/22/2024 11:18:36 hydrocodo ne 7.5 mg-acetam inophen 325 mg tablet [address] [facility], [address] [address] [place], [phone], 12/22/2024 11:18:36 Patient TargetsNo targets recorded. Patient InstructionsNo instructions recorded. Reason for Referral None Reported. Problems Name Problem SNOMED Code Status Onset Date Resolution Date Notes Provider Name and Address Organization Details Recorded Time Low back pain 369114952 Active Status: Active Not Available [facility] 7 06:47:46 Disorder of bone and articular cartilage 901057512 Active 2015 Status: Active Not Available [facility] 6 05:37:02 Lumbosacr al radiculop athy 3967863 Active 2015 From Automated Load;Provi boris: Emeka Fernández;St atus: Active Not Available [facility] 7 08:30:56 Problem Notes None recorded. Procedures Surgical History Date Name Laterality Status Provider Name and Address Organization Details Recorded Time 04/10/19 25 Date of Last Mammogram completed Amira Hogan [facility] 05/04/2024 14:53:23 tonsillectomy completed [facility] Valerie [facility] 06/29/2021 11:07:23 partial hysterectomy completed Kailey Valerie BOUCHER [facility] 06/29/2021 11:07:41 cholecystectomy completed Kailey BOUCHER [facility] 06/29/2021 11:07:49 Unlisted px accessory sinus completed Kailey BOUCHER [facility] 06/29/2021 11:08:12 Unlisted px phrnx adnd/tnsl completed Kailey BOUCHER [facility] 06/29/2021 11:08:24 procedure on vein completed [facility] Valerie Arroyo [facility] 06/29/2021 11:08:40 Appendectomy completed Amiradary Hogan [facility] 05/04/2024 14:53:09 Imaging Results None recorded. Procedure Notes None recorded. Medical Equipment None Reported. Allergies Allergen ID Allergen Name Allergen Category Reaction Reaction Severity Criticality Documentation Date Start Date Code Code System Note Provider Name and Address Organization Details Recorded Time 061213 Cipro medicatio n Not available Not available Not available 02/02/20162011 55832 3 RxNorm Comme nt: Creat ed By: Storm Bonner;C reate d Date: 2011 10:08 :22 AM; Not Available [facility] 6 12:52:49 729992 Celebrex medicatio n Not available Not available Not available 02/03/20162011 12366 7 RxNorm Comme nt: Creat ed By: Storm Bonner;C reate d Date: 2011 10:08 :34 AM; Not Available [facility] 6 05:46:24 629384 Levaquin medicatio n Not available Not available Not available 02/03/20162011 58197 2 RxNorm Comme nt: Creat ed By: Storm Bonner;C reate d Date: 2011 10:07 :37 AM; Not Available [facility] 6 08:06:37 949438 Macrobid medicatio n Not available Not available Not available 02/03/20162011 68784 1 RxNorm Comme nt: Creat ed By: Storm Bonner;C reate d Date: 2011 10:08 :04 AM; Not Available [facility] 6 08:06:37 929758 Product containin g penicilli n (product) medicatio n Not available Not available Not available 06/29/2021 56643 8001 SNOMED Kailey Valerie null, [facility] 2 11:02:22 889332 gabapenti n medicatio n Not available Not available Not available 06/29/2021 52488 RxNorm Kailey Valerie null, [facility] 2 11:02:39 691443 leflunomi de medicatio n Not available Not available Not available 06/29/2021 26343 RxNorm Kailey Valerie null, [facility] 2 11:02:54 110446 Naprosyn medicatio n Not available Not available Not available 06/29/202120291 2 RxNorm Kailey Valerie [facility] 2 11:03:06 970783 dextromet horphan hydrobrom mónica medicatio n Not available Not available Not available 05/04/2024 99091 0 RxNorm Amira Hogan [facility] 5 15:09:56 958690 Omnicef medicatio n Not available Not available Not available 05/04/2024 26462 RxNorm Amira Hogan [facility] 5 15:10:19 847496 nortripty line medicatio n Not available Not available Not available 05/04/2024 7531 RxNorm Amira Hogan [facility] 5 15:10:37 194967 Lyrica medicatio n Not available Not available Not available 05/04/2024 27393 1 RxNorm Amira Hogan [facility] [...] Updated DateTime 5 152.4 cm 35 kg/m2 65025.0 3 g 9 90 % 90 % 2 L/min 73.02 /min 118/64 mm[Hg] Blanca Gannon [facility] 10:50:52 Social History Question Answer Notes LastModified by Organizat ion Details LastModified Time Tobacco Smoking Status Former Smoker Blanca Gannon [facility] 11/19/2023 14:27:06 What Was The [...] 06/29/2021 Are you currently employed? No disabled [place] [address] Information not available 05/04/2024 Mental Status None recorded. Family History Relationship Description Onset Age of this Age Resolved Age Notes LastModified by Organization Details LastModified Time Unspecified Relation Malignant neoplastic disease [email or web address] Not available 04/12 14:49:35 Unspecified Relation Diabetes mellitus [email or web address] Not available 04/12 14:49:35 Mother Familial cancer of breast Not available 04/12 14:49:35 Mother Malignant neoplasm of pancreas [email or web address] Not available 2024 14:51:13 Mother Chronic obstructive pulmonary disease [email or web address] Not available 2024 14:51:40 Father Hypercholest erolemia [email or web address] Not available 2024 14:51:58 Medical History Condition Response Other N Thyroid Disease N Kidney Stones N Breast Cancer N Blood Transfusion N Emphysema Y Colon/Rectal Disorders N Sexually Transmitted Disease N Glaucoma N Depression Y COPD Y Pneumonia Y Breast Problem Y Measles Y Attempted Suicide N Varicose Veins Y Anxiety Disorder Y Hearing Loss Y Arthritis Y Blood Clot Y Cancer N Stroke Y Crohn's Disease N Radiation Therapy N Blood Thinners Y High Cholesterol N Neurologic Disorder N Liver Disease N Fibromyalgia Y Headaches N Kidney Disease N Endocrine Disorder N Heart Problems Y Skin Problems Y Osteoporosis/Osteopenia Y Meningitis N Heart Attack ([place]) N Ulcers N Mental Illness Y Diabetes N Ovarian Cancer N Rheumatic Fever N Bleeding Disorder N [...] ICD10 Code Diagnosis IMO Codes Diagnosis Note [id number] RAOUL KINSEY MD PAIN MEDICINE [address] [facility] [place] [address] 12/22/2024 10:37:41 12/22/2024 10:59:26 Chronic low back pain 165578374 M54.50 Degenerati on of lumbar intervertebral disc 17213937 M51.362 Spinal hilda nosis of lumbar region 33541074 M48.062 Health Concerns Section Related Observation LastModified by Organization Detai ls LastModified Time None Recorded Concern Status LastModified by Organization Details LastModified Time None Recorded Payers Encounter Date Sequence Insurance Name Policy Number Policy Sanchez Covered Member ID Sanchez Member ID Guarantor Name 12/22/2024 1 [place] Casi Cruz [id number] Casi Cruz 12/22/2024 2 COMBINED INSURANCE - [employer] (MEDICARE SUPPLEMENT) Casi Cruz [id number] Casi Cruz Notes Date Note Type Note Provider Name and Address Organization Details Recorded Time 12/22/2024 text/html The pt complains of low [...] bladder-leaks. She states she does take an fqae-rfo-govycwg stool softener/laxative. She states she has been [...] s visit.Etoh-Denied. Tobacco-Denied. CBD-Denied. RAOUL KINSEY MD [address] [place] [address], [place], [address], [place] [facility] 12/22/2024 13:29:43 OBGyn Episode No OBEpisode recorded.
--- OUTSIDE RECORDS SUMMARY | 2024-12-25 10:48 | XMS_ITS | Clinical Summary ---
Author Organization [facility] Address [address] [place] [address] Care Team Providers Care Rn Trauma Name Role Phone Adryan Cooper MD Primary Care Provider [phone] Allergies Active Allergy Reactions Criticality Noted Date [...] tablet (5 mg). 05/28/2016 Active HYDROcodone-gudelia taminophen (Lee) 10-325 MG tablet 1 tablet (10 mg [...] 2) 2008 [facility]-Breast Cancer Screening 04/06/201703/12, 04/06/2015 [id number] Vaccine ( season) 2024 01/20/2021, 06/16/2020 [facility]-Influenza [...] age to complete this [place] [address] COMBINED PRIORITY 1 CARD Care Teams Rn Trauma Relationship Specialty Start Date End Date Adryan Cooper MD [address] [place] [address] PCP - General 07/22/20
--- OUTSIDE RECORDS SUMMARY | 2024-12-25 10:48 | XMS_ITS | Encounter Summary ---
Author Organization [facility] ystem Address [address] [place] [address] Care Team Providers Care Regulator Tester Name Role Phone Sandra Orozco APRN Primary Care Provider [phone] Encounter Details Date Type Department Care Team (Late st Contact Info) Description 11/12/2024 Patient rounding ([facility] [address] [facility] [address], [place] [address] Dina Solano APRN [address] [facility] [address] [place] [address] Social History Tobacco Use Types Packs/Day Years Used Date Smoking Tobacco: Former Cigarettes Smokeless Tobacco: Never Comments:Smoked since 1973 Alcohol Use Standard Drinks/Week Comments Not Currently 0 (1 standard drink = 0.6 oz pur e alcohol) former [facility] Utilities Answer Date Recorded In the past 12 months has [employer] electric, gas, oil, or water company threatened [...] [facility] [place] of Occupat ional Health - Occupational Stress [...] GED or equivalent No 11/13/2024 Preferred Language Angolan 11/13/2024 PHQ-2 Answer Date Recorded Patient Health [...] is Joaquina Sears, and I am the Tuberculosis Specialist for [facility] [place]. I would like to thank you for [...] with your visit with us as a [facility] facility? Over the next few days, you will be receiving a Patient Experience Survey. Please consider taking the survey, as it helps [facility] in improving their patient care. Thank you for taking the time to answer our questions today. I hope you have a good day. documented in this encounter Plan of Treatment Upcoming Encounters Date Type Department Care Team (Late st Contact Info) Description 02/16/2025 11:00 AM EST Office Visit [facility] [address] [facility] [address] [place] [phone] Dina Solano APRN [address] [facility] [address] [place] [address] documented as of this encounter Visit Diagnoses Not on filedocumented in this encounter Care Teams Regulator Tester Relationship Specialty Start Date End Date Sandra Orozco APRN [facility] [address] [place] [address] PCP - General Internal Medicine 05/11/24 documented as of this encounter
--- OUTSIDE RECORDS SUMMARY | 2024-12-25 10:48 | XMS_ITS | Data Portability ---
Author Organization [facility] Office Address [address] [address] Care Team Providers Care Radio Television Technical Director Name Role Phone GLADIS DELCID Primary [...] to mix with alcohol, or self-escalate it. [email or web address] Not available 12/10/2021 19:02:32 Plan of Treatment Reminders Order Date Submit Date Provider Last Modified By Organization Details Last Modified Time Details Appointments None recorded. Lab None recorded. Referral None recorded. Procedures None recorded. Surgeries None recorded. Imaging None recorded. Medication Orders Cres[place] 10 mg-325 mg tablet 2021 022 PATRICK [facility], [facility] [place] [address] [place] [place], [id number], 17:21:53 tizanidine 2 mg tablet 2021 022 [facility] [address] [place], [id number], 2 16:55:31 Patient TargetsNo targets recorded. Patient Instructions Encounter Date Encounter Id Patient Instructions Last Modified By Organization Details Last Modified Time 12/06/2021 [id number] Patient is to us e non-pharmacologic measures for mild pain and use opioid as needed only for moderate pain, to use before pain is severe to be most effective. patient is to try heat, ice, rest, repositioning, tens, massage, stretching, walking, and meditation prior to opioid use. [email or web address] Not available 12/10/2021 19:03:33 Patient seen today incident to a physician s previously established diagnosis and plan of care. Follow-up care provided today under the plan of care of: Aaliyah Olson MD and supervision of: Aaliyah Olson MD. [email or web address] Not available 12/10/2021 19:03:54 Reason for Referral None Reported. 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 47388332 Active 2020 (M47.816) Spondylos is without myelopath y or radiculop athy, lumbar region Not Available [facility] 2 22:51:15 Lumbosacr al spondylos is without myelopath y 61672025 Active 2020 (M47.817) Spondylos is without myelopath y or radiculop athy, lumbosacr al region Not Available [facility] 2 22:51:15 Degenerat ion of lumbosacr al intervert ebral disc 51156084 Active 2020 (M51.37)O ther intervert ebral disc degenerat ion, lumbosacr al region Not Available [facility] 2 22:51:15 Lumbosacr al radiculop athy 6271671 Active 2020 (M54.17)R adiculopa thy, lumbosacr al region Not Available [facility] 2 22:51:15 Muscle pain 11486629 Active 2020 (M79.1)My algia Not Available [facility] 2 22:51:15 Pre-surge ry testing Active 2020 (Z01.812) Encounter for preproced ural laborator y examinati on Not Available [facility] 2 22:51:16 Opioid dependenc e 76818672 Active 2020 (F11.20)O pioid dependenc e, uncomplic ated Not Available [facility] 2 22:51:15 Long-term current use of opiate analgesic drug 78585153420 4108 Active 2020 (Z79.891) intermodal customer service (current) use of opiate analgesic Not Available [facility] 2 22:51:16 Lumbar spondylos is 949692863 Active 2020 (M47.26)O ther spondylos is with radiculop athy, lumbar region Not Available [facility] 2 22:51:15 Lumbosacr al spondylos is with radiculop athy 150925808 Active 2020 (M47.27)O ther spondylos is with radiculop athy, lumbosacr al region Not Available [facility] 2 22:51:15 Spasm of back muscles 797751123 Active 2021 [facility] 2 16:53:49 Problem Notes None recorded. Medical Equipment None Reported. Allergies Allergen ID Allergen Name Allergen Category Reaction Reaction Severity Criticality Documentation Date Start Date Code Code System Note Provider Name and Address Organization Details Recorded Time 85766 Celebrex medicatio n Not available Not available Not available 07/11/20212020 06134 7 RxNorm React ion: Blood in stool s(Mil d) Not Available [facility] 2 22:02:48 39945 leflunomi de Not available Not available Not available Not available 07/11/20212020 68394 RxNorm React ion: reall y bad sores (Mild ) Not Available [facility] 2 22:02:48 43082 Penicilli n Not available itching mild Not available 07/11/20212020 06314 RxNorm Not Available [facility] 2 22:02:48 77415 gabapenti n medicatio n Not available Not available Not available 07/11/20212020 71618 RxNorm React ion: BAD swell ing(M ild) Not Available [facility] 2 22:02:48 56078 nortripty line hydrochlo ride medicatio n Not available Not available Not available 07/11/2021202013 0 RxNorm Not Available [facility] 2 22:02:48 40412 Naprosyn medicatio n Not available Not available Not available 07/11/20212020 2 RxNorm React ion: throa t clos ed (M ild) Not Available [facility] 2 22:02:48 38173 Macrobid medicatio n Not available Not available Not available 07/11/20212020 32643 1 RxNorm React ion: hives and itchi ng(Mi ld) Not Available [facility] 2 22:02:48 Medications Name Sig Start Date [...] Updated DateTime 2 152.4 cm 28.1 kg/m2 57775.3 g 98.9 [degF] 62 /min 97 % [...] ICD10 Code Diagnosis IMO Codes Diagnosis Note [id number] Claribel Ramsay, RIVERBOAT MASTER [address] [place] [address] 12/06/2021 16:00:41 12/07/2021 16:37:14 Long-term current use of opiate analgesic drug 5251131663 44158 Z79.891 Patient is noted to be low risk for opioids due to: previous hx of compliance UDS reviewed on and is Appropriat e all previous MOHSEN reviewed and is Appropriat e Opioid dependence 791558 00 F11.20 Medication compliance : According to [...] follows none Lumbosacra l spondylosis with radiculopathy 060966585 M47.27 patient says she is able to usually make this this Rx last about 2 month is using only prn would like to come back in 2 months Spasm of back muscles 20 9843532 M62.830 stable with meds, no changes Health Concerns Section Related Observation LastModified by Organization Detai ls LastModified Time None Recorded Concern Status LastModified by Organization Details LastModified Time None Recorded Advance Directives Directive None Recorded Payers Insurance Date Sequence Insurance Name Policy Number Policy Sanchez Covered Member ID Sanchez Member ID Guarantor Name 12/06/2021 1 [place] Casi Cruz [id number] Casi Cruz 12/06/2021 2 COMBINED INSURANCE - [employer] (MEDICARE SUPPLEMENT) Casi Cruz [id number] Casi Cruz Notes Date Note Type Note Provider Name and Address Organization Details Recorded Time 12/06/2021 text/html ROS as noted in the HPI patient is seen for f/u visit chronic [...]
--- OUTSIDE RECORDS SUMMARY | 2024-12-25 10:48 | XMS_ITS | Encounter Summary ---
Author Organization [employer] ([place], [place], [place], [place]) Address [address] [place] [address] Care Team Providers Care Quality Improvement Consultant Name Role Phone Sandra Orozco RUBEN Primary Care Provider Encounter Details Date Type Department Care Team (Late st Contact Info) Description 03/01/2020 Transcribed Document [facility] Family Medicine [facility] [place] [address] ProviderAide MD [address] [place] [address] Social History Tobacco Use Types Packs/Day [...] Historical MD Derek - 03/01/2020 11:34 AM ZIPPER JOINER DATE OF PROCEDURE: 03/01/2020 SURGEON: Noemi Mayfield [...] 18-gauge Tuohy needle was advanced by the eyjo-po-chbbrclnht technique under direct fluoroscopic guidance into the [...] visit and the patient has been afebrile. /[id number] Noemi Mayfield MD, JELANI Pain Certified DELILAH/ANTHONY / KR / MODL /[id number] documented in this encounter Plan of Treatment Not on file documented as of this encounter Visit Diagnoses Not on filedocumented in this encounter Care Teams Quality Improvement Consultant Relationship Specialty Start Date End Date Sandra Orozco, SWING MANAGER [address] [place] [address] PCP - General Nurse Practitioner 01/24/22 documented as of this encounter
--- OUTSIDE RECORDS SUMMARY | 2024-12-25 10:48 | XMS_ITS | Encounter Summary ---
Author Organization [facility] Address [address] [place] [address] Care Team Providers Care Photo Mask Cleaner Name Role Phone Sandra Orozco APRN Primary Care Provider [phone] Encounter Details Date Type Department Care Team (Latest Contact Info) Description 11/12/2024 Travel Social History Tobacco Use Types Packs/Day Years Used Date Smoking Tobacco: Former Cigarettes Smokeless Tobacco: Never Comments:Smoked since 1973 Alcohol Use Standard Drinks/Week Comments Not Currently 0 (1 standard drink = 0.6 oz pur e alcohol) former [facility] Utilities Answer Date Recorded In the [...] care, and heating? Not very hard 11/13/2024 [facility] [place] of Occupat ional Health - Occupational Stress [...] 4:43 PM EDT Minna Gamez, BERNICE * [place] Suicide Severity Rating Scale (Screener/Recent Self-Report) Question [...] Description 02/16/2025 11:00 AM EST Office Visit [facility] [address] [facility] [address] [address] Dina Solano APRN [address] [facility] [address] [place] [address] documented as of this encounter Visit Diagnoses Not on filedocumented in this encounter Additional Health Concerns Infection Onset Date Last Indicated Resolved Time COVID Screen (preop/placement) 11/12/2024 11/12/2024 11/12/2024 8:24 PM EDT documented as of this encounter Care Teams Photo Mask Cleaner Relationship Specialty Start Date End Date Sandra Orozco APRN [address] [place] [address] PCP - General Internal Medicine 05/11/24 documented as of this encounter
--- OUTSIDE RECORDS SUMMARY | 2024-12-25 10:48 | XMS_ITS | Encounter Summary ---
Author Organization [employer] ([place], [place], [place], [place]) Address [address] [place] [address] Care Team Providers Care Ballroom Dancer Name Role Phone Sandra Orozco RUBEN Primary Care Provider Encounter Details Date Type Department Care Team (Late st Contact Info) Description 01/25/2020 Transcribed Document [facility] Family Medicine [address] [place] [address] ProviderAide MD [address] [place] [address] Social History Tobacco Use Types Packs/Day Years Used Date Smoking Tobacco: Never Assessed Comments Unknown Sex and Gender Information Value Date Recorded Sex Assigned at Not on file Legal Sex Female 2:35 PM CDT Gender Identity Not on file Sexual Orientation Not on file documented as of this encounter Miscellaneous Notes * Cerner Conversion Note - Historical ProviderMD - 01/25/2020 6:55 AM SUBASSEMBLY SUPERVISOR DATE OF ADMISSION: 01/22/2020 HISTORY OF PRESENT [...] applying ice and heat, physical therapy, exercise, qfbp-yaj-yjoulzi medication, bed rest going to [facility], [...] to contact her primary physician and her porter baggage to see if we can hold the [...] visit and the patient has been afebrile. /[id number] Karim Chaparro, MD, JELANI Pain Certified KR/AQ / KR / MODL CC: MD Sandra Valero APRN Electronically signed by Interface, [facility] Conversion Aerospace Engineer Cerner at 06/27/2022 8:04 AM CDT documented in this encounter Plan of Treatment Not on file documented as of this encounter Visit Diagnoses Not on filedocumented in this encounter Care Teams Ballroom Dancer Relationship Specialty Start Date End Date Sandra Orozco, RUBEN [address] [address] PCP - General Nurse Practitioner 01/24/22 documented as of this encounter
--- OUTSIDE RECORDS SUMMARY | 2024-12-25 10:48 | XMS_ITS | Clinical Summary ---
Author Organization [employer] ([place], [place], [place], [place]) Address [address] [place] [address] Care Team Providers Care Security Operations Manager Name Role Phone OrozcoKrysten randhawarafael MIRANDA Primary [...] your living situation today? I have a [facility] place to live 10/13/2023 Think about [...] Do you speak a language other than Bahamian at [facility]? No 10/13/2023 Do you want help [...] 06/22/2009, 08/29/2001 Medical Devices Implanted Type Area Commander Internal Affairs Device Identifier Shelf Expiration Date Model / Serial / Lot Sealant Durasl Spine 5ml [id number] - [id number] Implanted:Qty: 1 on 01/31/2022 by Emeka Fernández MD at [facility] IMPLANTS N/A: Back [employer] 07/09/2023539319 / / [id number] Cement Spinal Confidence 2839-10-000 - [id number] Implanted:Qty: 2 on 10/14/2023 at [facility] IMPLANTS N/A: Back J &J:DEPUY:DEPUY SPINE 06/08/2025 0 [id number] Insurance MEDICARE PART A B GENERIC COMMERCIAL Advance Directives For more information, please contact: [phone] Documents on File Type Date Recorded Patient Ticker Wirer Expl anation Advance Directives and Livin g [...] Son First Alternate Healthcare Decision-Maker Care Teams Security Operations Manager Relationship Specialty Start Date End Date Sandra Orozco APRN [address] [place] [address] PCP - General Nurse Practitioner 01/24/22
--- OUTSIDE RECORDS SUMMARY | 2024-12-25 10:48 | XMS_ITS | Encounter Summary ---
Author Organization [facility] Address [address] [place] [address] Care Team Providers Care Food Product Inspector Name Role Phone Sandra Orozco APRN Primary Care Provider Encounter Details Date Type Department Care Team (Late st Contact Info) Description 11/10/2024 Telephone [facility] CARDIOLOGY [address] [facility] [address] [place] [address] Christy Kirk MD [address] [facility] [address] [place] [address] Social History Tobacco Use Types Packs/Day Years [...] SOONER APT. SHE CAN BE REACHED AT [phone] documented in this encounter Plan of Treatment Upcoming Encounters Date Type Department Care Team (Late st Contact Info) Description 02/16/2025 11:00 AM EST Office Visit [facility] [address] [facility] [address], [place] [address] Kalin Solano APRN [address] [facility] [address], [place] [address] documented as of this encounter Visit Diagnoses Not on filedocumented in this encounter Care Teams Food Product Inspector Relationship Specialty Start Date End Date Sandra Orozco APRN [facility] [address] [place] [address] PCP - General Internal Medicine 05/11/24 documented as of this encounter
--- OUTSIDE RECORDS SUMMARY | 2024-12-25 10:48 | XMS_ITS | Referral Summary ---
Author Organization [employer] ([place], [place], [place], [place]) Address [address] [place] [address] Care Team Providers Care Contour Band Saw Operator Vertical Name Role Phone OrozcoKrystenrafael MIRANDA Primary Care [...] your living situation today? [facility] 10/13/2023 Think [...] Do you speak a language other than Lithuanian at [facility]? No 10/13/2023 Do you want [...] on file Medical Devices Implanted Type Area Supervisor Smoke Control Device Identifier Shelf Expiration Date Model / Serial / Lot Sealant Durasl Spine 5ml [id number] - [id number] Implanted:Qty: 1 on 01/31/2022 by Emeka Fernández MD at [facility] IMPLANTS N/A: Back [employer] 07/09/2023 [id number] / / [id number] Cement Spinal Confidence 2839-10-000 - [id number] Implanted:Qty: 2 on 10/14/2023 at [facility] IMPLANTS N/A: Back J &J:DEPUY:DEPUY SPINE 06/08/2025 0 / / [id number] Insurance MEDICARE PART A B GENERIC COMMERCIAL Advance Directives For more information, please contact: [phone] Documents on File Type Date Recorded Patient Foundry Worker Apprentice Expl anation Advance Directives and Marixa g Will 01/31/2022 8:44 AM * Full Code (Latest Code Status on File) Date Activated Date Inactivated Comments 10/12/2023 11:08 PM 10/15/2023 6:49 PM * Full Code Date Activated Date Inactivated Comments 01/31/2022 5:41 PM 02/01/2022 4:50 PM Healthcare Agents on File Name Relationship Healthcare Agent [facility] p Communication Luis Cruz Son First Alternate Healthcare Decision-Maker Care Teams Contour Band Saw Operator Vertical Relationship Specialty Start Date End Date Sandra Orozco, CASTING MACHINE OPERATOR HELPER [address] [place] [address] PCP - General Nurse Practitioner 01/24/22
[2024-12-25 11:00] VITALS: BP 106/60; PULSE 67; RESP 18; O2SAT 95
[2024-12-25] MEDS: IRON SUCROSE COMPLEX 200 MG in 0.9 % SODIUM CHLORIDE 100 ML 220 MG IV (11:00)
[2024-12-25 11:30] VITALS: BP 113/66; PULSE 64; RESP 17
== END 2024-12-25 23:59 | disposition home or self-care (01) ==
LOC: INF 10:44
PROVIDERS: PCP Nurse Practitioner Family; Visit Provider Nurse Practitioner Family
DX: D50.9 Iron deficiency anemia, unspecified (principal)
CPT/HCPCS: 96365; J1756

== ENCOUNTER 2024-12-28 10:45 | Outpatient (CLI) | payer MEDICARE, OTHER, SELFPAY ==
[2024-12-28 11:03] VITALS: BP 116/59; PULSE 72; RESP 18; TEMP 36.6; O2SAT 93
[2024-12-28] MEDS: IRON SUCROSE COMPLEX 200 MG in 0.9 % SODIUM CHLORIDE 100 ML 220 MG IV (11:03)
[2024-12-28] MEDS: SODIUM CHLORIDE 0.9% 10ML FLUSH SYRINGE 10 ML IV (11:35)
[2024-12-28 16:46] LABS: Coronavirus 19, PCR Not Detected (NotDetected); Influenza A, PCR Not Detected (NotDetected); Influenza B, PCR Not Detected (NotDetected)
== END 2024-12-28 23:59 | disposition home or self-care (01) ==
LOC: INF 10:46
PROVIDERS: PCP Nurse Practitioner Family; Visit Provider Nurse Practitioner Family
DX: D50.9 Iron deficiency anemia, unspecified (principal); R06.02 Shortness of breath; R05.9 Cough, unspecified
CPT/HCPCS: 87631; 96365; J1756

== ENCOUNTER 2024-12-30 10:48 | Outpatient (CLI) | payer MEDICARE, OTHER, SELFPAY ==
--- OUTSIDE RECORDS SUMMARY | 2024-11-12 12:30 | XMS_ITS | Encounter Summary ---
[facility] Address [address] [place] [address] Care Team Providers Care Assembler Lay Ups Name Role Phone Sandra Orozco APRN Primary Care Provider Reason for Visit * Reason Comments Hyperlipidemia Chronic Venous Insufficiency Atrial Fibrillation Encounter Details Date Type Department Care Team (Late st Contact Info) Description 11/12/2024 12:30 PM EDT Office Visit [facility] CARDIOLOGY [address] [facility] [address], [place] [address] Dina Solano APRN [address] [facility] [address] [place] [address] Shortness of breath (Primary Dx); Generalized edema; [...] Recorded In the past 12 months has [employer] electric, gas, oil, or water company threatened [...] care, and heating? Not very hard 11/13/2024 [facility] of Occupat ional Health - Occupational Stress [...] GED or equivalent No 11/13/2024 Preferred Language Costa Rican 11/13/2024 PHQ-2 Answer Date Recorded Patient Health [...] of breath and lower extremity edema. Her vocational case manager was concerned about heart failure and advised [...] Orozco APRN Date: 11/12/2024 Department: Minh RE[facility] CARDIOLOGY [address] [place] [address] [address] [facility] [phone] Chief Complaint: Chief Complaint Patient presents with Hyperlipidemia Chronic Venous Insufficiency Atrial Fibrillation Problem list: Paroxysmal atrial fibrillation/History of ischemic CVA/TIAs status post loop explant [id number] (Female, Age, CVA, PAD) PAF noted [...] has been diagnosed with COPD by her vocational case manager who she was at a follow-up with [...] of breath and lower extremity edema. Her vocational case manager was concerned about heart failure and advised [...] evaluation. Patient [facility] Follow Up Return in about 2 weeks (around 11/26/2024) for With Me. Patient or patient bilingual call center representative verbalized consent for the use of Ambient Listening during the visit with Dina Solano APRN for chart documentation. 11/12/2024 12:47 EDT Dina Solano APRN [facility] Cardiology documented in this encounter Plan of Treatment Upcoming Encounters Date Type Department Care Team (Late st Contact Info) Description 02/16/2025 11:00 AM EST Office Visit [facility] CARDIOLOG[facility] [address] [facility] [address] [place] [address] Dina Solano APRN [address] [facility] [address] [place] [address] documented as of this encounter Visit Diagnoses Diagnosis Shortness of breath- Primary Generalized edema Edema Chronic respiratory failure with hypoxia Paroxysmal atrial fibrillation Atrial fibrillation History of CVA (cerebrovascular accident) Transient ischemic attack (TIA), and cerebral infarction without residual deficits Moderate aortic valve regurgitation Peripheral arterial disease Unspecified peripheral vascular disease documented in this encounter Care Teams Assembler Lay Ups Relationship Specialty Start Date End Date Sandra Orozco APRN [address] [place] [id number] PCP - General Internal Medicine 05/11/24 documented as of this encounter
--- OUTSIDE RECORDS SUMMARY | 2024-11-12 21:36 | XMS_ITS | Encounter Summary ---
Author Organization [facility] Address [address] [place] [address] Care Team Providers Care Hide Splitter Name Role Phone Sandra Orozco APRN Primary Care Provider Reason for Visit * Reason Comments Shortness of Breath * Auth/Cert Specialty Diagnoses / Procedures Referred By Contac t Referred To Contact Diagnoses Respiratory failure with hypoxia Referral ID Status Reason Start Date Expiration Date Visits Re quested Visits Authorized [id number] 1 1 Encounter Details Date Type Department Care Team (Late st Contact Info) Description 11/12/2024 9:36 PM EDT - 11/14/2024 4:38 PM EDT Hospital Encounter [address] [place] [phone] Vsau Mckeon MD [address] [place] [address] Domitila Villalobos MD [address] [facility] [address] [place] [address] Mel Palma DO [address] [place] [address] Vasu Luke MD [address] [address] Referred by health child caregiver (Primary Dx); Dyspnea on exertion; Chronic [...] = 0.6 oz pur e alcohol) former [facility] Utilities Answer Date Recorded In the past 12 months has [employer] electric, gas, oil, or water [employer] threatened to shut off services in your [...] care, and heating? Not very hard 11/13/2024 [facility] [place] of Occupat ional Health - Occupational Stress [...] GED or equivalent No 11/13/2024 Preferred Language German 11/13/2024 PHQ-2 Answer Date Recorded Patient Health [...] Questionnaire-2 Score 0 11/13/2024 2:21 PM EDT aSsha Helms RN * Calculated C-SSRS Risk Score (Lifetime/Recent) Answer Date of Assessment Author No Risk Indicated 11/12/2024 4:43 PM Minna Vazquez RN * [place] Suicide Severity Rating Scale (Screener/Recent Self-Report) Question [...] from the original note were not included. [facility] Medicine Services DISCHARGE SUMMARY Patient Name: [...] outpatient labs/diagnostics: Pcp [address] 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 Procedure Abnormality Status --------- ------ COVID-19, FLU A/B, RSV P...[[id number]] Normal Final result Please view results for these tests on the individual orders. COVID-19, FLU A/B, RSV PCR 1 HR TAT - Swab, Nasopharynx [[id number]] (Normal) Collected: 11/12/241920 Lab Status: Final result Specimen: Swab from Nasopharynx Updated: 11/12/242023 COVID19 Not Detected Influenza A PCR Not Detected Influenza B PCR Not Detected RSV, PCR Not Detected Urine Culture - Urine, Urine, Clean Catch [[id number]] (Normal) Collected: 11/12/241919 Lab Status: Final result [...] MD 11/12/2024 8:31 PM EDT Workstation ID: [id number] XR Chest 1 View Result Date: 11/12/2024 XR CHEST 1 VW Date of Exam: 11/12/2024 6:28 PM EDT Indication: SOA triage protocol. Comparison: 07/16/2024 Findings: Heart size at the upper limits of normal. Pulmonary vessels normal. Lungs are clear. No pleural effusion. No pneumothorax. Impression: 1. No acute cardiopulmonary disease. Electronically Signed: Arben Neely MD 11/12/2024 7:02 PM EDT Workstation ID: [id number] Results for orders placed during the hospital [...] Comments) Swelling all over Nortriptyline Swelling Poison Palisade Extract Hives, Itching, Swelling and Rash Poison [...] week Discharge Follow-up with Specialty: Dr. Kirk ([facility]) 1 week As directed Specialty: Dr. Kirk ([facility]) 1 week Discharge Follow-up with Specialty: regular acidizer (2 weeks or 1st available) As directed Specialty: regular acidizer (2 weeks or 1st available) Vasu Luke MD 11/14/24 Time Spent on Discharge: I spent 35 minutes on this discharge activity which included: jarv-[id number]-[id number] with the patient, reviewing the data in the system, coordination of the care with the nursing staff as well as consultants, documentation, and entering orders. * Libertad Urbano, PT - 11/14/2024 7:40 AM EDT Patient Name: Casi Cruz : 1960 Today's Date: 11/14/2024 Admit Date: 11/12/2024 Visit Dx: ICD-10-CM ICD-9-CM 1. Referred by health child caregiver Z02.89 V68.89 2. Dyspnea on exertion [...] MODERATE BY ECHO Aortic regurgitation MODERATE BY [facility] ECHO Arthritis Asthma Chronic respiratory [...] RECORDER PLACEMENT: 11/06/2018- AE. LOOP RECORDER SERIAL #[id number] SINUS SURGERY General Information Row Name 11/14/24 [...] PT Physical Therapist Mobility Row Name 11/14/24 0791 Bed Mobility Bed Mobility supine-sit -LS Supine-Sit Page (Bed Mobility) independent -LS Comment, (Bed Mobility) Pt transitioned supine to sit indep on flat bed surface without a rail. PerPT's clinical judgement, pt would be indep sit to supine as well. -LS Row Name 11/14/24 0740 Sit-Stand Transfer Sit-Stand Page (Transfers) independent -LS Comment, (Sit-Stand Transfer) indep without AD -LS Row Name 11/14/24 0740 Gait/Stairs (Locomotion) Page Level (Gait) independent -LS Patient was able [...] Therapist Physical Therapy Education Title: PT OT STAMPING DIE MAKER Therapies (In Progress) Topic: Physical Therapy (Resolved) [...] Description Service Date Service Provider Modifiers Qty [id number] HC PT EVAL LOW COMPLEXITY 4 11/14/2024 [...] Dx: ICD-10-CM ICD-9-CM 1. Referred by health child caregiver Z02.89 V68.89 2. Dyspnea on exertion [...] MODERATE BY ECHO Aortic regurgitation MODERATE BY [facility] ECHO Arthritis Asthma Chronic venous [...] RECORDER PLACEMENT: 11/06/2018- AE. LOOP RECORDER SERIAL #[id number] SINUS SURGERY General Information Row Name 11/13/24 [...] Name 11/13/24 142 Bed Mobility Bed Mobility dptdog-bxv-urlooa -AN Ntfcff-Vsq-Pnmoer Page (Bed Mobility) independent -AN [facility] 11/13/24 142 Transfers Transfers sit-stand transfer;stand-sit transfer -AN [facility] 11/13/24 142 Sit-Stand Transfer Sit-Stand Page (Transfers) supervision -AN [facility] 11/13/24 142 Stand-Sit Transfer Stand-Sit Page (Transfers) supervision -AN [facility] 11/13/24 142 Functional Mobility Functional Mobility- Ind. Level supervision required -AN [facility] 11/13/24 142 Activities of Daily Living BADL Assessment/Intervention lower body dressing;upper body dressing -AN [facility] 11/13/24 142 Lower Body Dressing Assessment/Training Page Level (Lower Body Dressing) don;socks;independent -AN Position (Lower Body Dressing) edge of bed sitting -AN [facility] 11/13/241421 Upper Body Dressing Assessment/Training Page Level (Upper Body Dressing) don;pajama/robe;independent -AN Position (Upper Body Dressing) edge of bed sitting -AN User Tierney (r) = Recorded By, (t) = Taken By, (c) = Cosigned By Initials Name Provider Type Che Poole OT Occupational Therapist Obj/Interventions [facility] Name 11/13/24 142 Sensory Assessment (Somatosensory) Sensory Assessment (Somatosensory) right UE -AN Sensory Subjective Reports numbness -AN Sensory Assessment hx of nerve damage -AN [facility] 11/13/24 142 Vision Assessment/Intervention Visual Impairment/Limitations WFL -AN [facility] 11/13/24 142 Range of Motion Comprehensive General Range of Motion no range of motion deficits identified -AN [facility] 11/13/24 142 Strength Comprehensive (MMT) General Manual Muscle Testing (MMT) Assessment no strength deficits identified -AN [facility] 11/13/24 142 Balance Balance Assessment sitting static [...] Pain Rating 0/10 - no pain -AN [facility] Name 11/13/241425 Plan of Care Review [...] (OT) Anticipated Discharge Disposition (OT) home -AN [facility] Name 11/13/241425 Vital Signs Pre SpO2 (%) 95 -AN O2 Delivery Pre Treatment room air -AN O2 Delivery Intra Treatment room air -AN Post SpO2 (%) 95 -AN O2 Delivery Post Treatment room air -AN Pre Patient Position Supine -AN Intra Patient Position Standing -AN Post Patient Position Supine -AN [facility] 11/13/241425 Positioning and Restraints Pre-Treatment Position in [...] Therapist Occupational Therapy Education Title: PT OT STAMPING DIE MAKER Therapies (In Progress) Topic: Occupational Therapy (In [...] Description Service Date Service Provider Modifiers Qty [id number] HC OT EVAL LOW COMPLEXITY 3 11/13/2024 Che Velazquez OT GO 1 OT Discharge Summary Anticipated Discharge Disposition (OT): home Reason for Discharge: Independent Discharge Destination: Home Che Velazquez OT 11/13/2024 documented in this encounter Discharge Instructions * Attachments The following attachments cannot be sent through Care Everywhere. * Heart Failure and Exercise: What to Know (German) * Prednisone Tablets (German) documented in this encounter Medications at Time [...] nursing note reviewed. Exam conducted with a service delivery manager present. HENT: Mouth/Throat: Mouth: Mucous membranes [...] Plan 1-acute on chronic hypoxic respiratory failure-resolved. -95-ppen-kuwn history of smoking-stopped last year -Likely COPD [...] from the original note were not included. [facility] Medicine Services ADMISSION FOLLOW-UP NOTE Patient admitted after midnight, H&P by my partner performed earlier on today's date reviewed. Interim findings, labs, and charting also reviewed. The [facility] Hospital Problem List has been managed [...] from the original note were not included. [facility] Medicine Services HISTORY AND PHYSICAL Patient [...] urinary symptoms. Pt follows w/ Pulmonology in [place]. Pt was seen for evaluation this week [...] MODERATE BY ECHO Aortic regurgitation MODERATE BY [facility] ECHO Arthritis Asthma Chronic venous [...] RECORDER PLACEMENT: 11/06/2018- AE. LOOP RECORDER SERIAL #[id number] SINUS SURGERY Family History: family history includes [...] Comments) Swelling all over Nortriptyline Swelling Poison Palisade Extract Hives, Itching, Swelling and Rash Poison [...] SCREENING ORDER (NO ISOLATION) - Swab, Nasopharynx [[id number]] (Normal) Collected: 11/12/241920 Lab Status: Final result Specimen: Swab from Nasopharynx Updated: 11/12/242023 Narrative: The following orders were created for panel order COVID PRE-OP / PRE-PROCEDURE SCREENING ORDER (NO ISOLATION) - Swab, Nasopharynx. Procedure Abnormality Status --------- ------ COVID-19, FLU A/B, RSV P...[[id number]] Normal Final result Please view results for these tests on the individual orders. COVID-19, FLU A/B, RSV PCR 1 HR TAT - Swab, Nasopharynx [[id number]] (Normal) Collected: 11/12/241920 Lab Status: Final result [...] MD 11/12/2024 8:31 PM EDT Workstation ID: [id number] XR Chest 1 View Result Date: 11/12/2024 XR CHEST 1 VW Date of Exam: 11/12/2024 6:28 PM EDT Indication: SOA triage protocol. Comparison: 07/16/2024 Findings: Heart size at the upper limits of normal. Pulmonary vessels normal. Lungs are clear. No pleural effusion. No pneumothorax. Impression: Impression: 1. No acute cardiopulmonary disease. Electronically Signed: Arben Neely MD 11/12/2024 7:02 PM EDT Workstation ID: [id number] Assessment & Plan Assessment & Plan Respiratory [...] scheduled nebs -pt follows w/ Pulmonary in [place]- seen this week and referred to Cardiology [...] Patient apparently was seen by pulmonology in [place] and was told that her lungs were [...] MODERATE BY ECHO Aortic regurgitation MODERATE BY [facility] ECHO Arthritis Asthma Chronic respiratory [...] RECORDER PLACEMENT: 11/06/2018- AE. LOOP RECORDER SERIAL #[id number] SINUS SURGERY Family History Problem Relation Age [...] Patient apparently was seen by pulmonology in [place] and was told that her lungs were [...] further evaluation per primary team or appropriate sales operations consultant. 5. For SMOOTH on CPAP: Continue CPAP. 6. For acute on chronic hypoxemic respiratory failure: Back to baseline oxygen requirement after diuresis. Continue supplemental oxygen. Wean as tolerated. Electronically signed by: Michele Sanchez MD 11/13/24 18:31 EDT *. Please note that portions of this note were completed with [employer] - a voice recognition program. * Christy [...] has history of COPD with greater than 48-ikhq-prlc history of smoking. Quit 1 year ago. She encountered COVID several years ago followed by bilateral pulmonary atelectasis and chronic respiratory failure requiring home O2. She has mild to moderate aortic insufficiency on 2D echocardiogram from 2022 which was performed in [place]. Her last echo was over 2 years [...] MODERATE BY ECHO Aortic regurgitation MODERATE BY [facility] ECHO Arthritis Asthma Chronic venous [...] RECORDER PLACEMENT: 11/06/2018- AE. LOOP RECORDER SERIAL #[id number] SINUS SURGERY , Family History Problem Relation Age of Onset Coronary artery disease Mother Heart attack Mother Hyperlipidemia Father Hypertension Father , and Allergies: Celecoxib, Hydrocodone, Cipro [ciprofloxacin hcl], Dexamethasone, Gabapentin, Levofloxacin, Nitrofurantoin, Nortriptyline, Poison oak extract, Repatha [evolocumab], and Wound dressing adhesive Physical Exam Vitals and nursing note reviewed. Exam conducted with a service delivery manager present. HENT: Mouth/Throat: Mouth: Mucous membranes [...] Plan 1-acute on chronic hypoxic respiratory failure -25-tawm-howw history of smoking-stopped last year -Likely COPD [...] Documentation Taken 11/13/2024 0800 by Jill Altamirano RNclaims adjustor Interventions: no interventions per patient request Intervention: [...] on [employer], who was sent by her quality control tech raw materials for worsening leg swelling and dyspnea. This [...] MODERATE BY ECHO Aortic regurgitation MODERATE BY [facility] ECHO Arthritis Asthma Chronic venous [...] RECORDER PLACEMENT: 11/06/2018- AE. LOOP RECORDER SERIAL #[id number] SINUS SURGERY FAMILY HISTORY Family History Problem [...] pH, UA 5.5 5.0 - 8.0 Specific [place], UA >1.030 (H) 1.005 - 1.030 Glucose, [...] MD 11/12/2024 8:31 PM EDT Workstation ID: [id number] XR Chest 1 View Result Date: 11/12/2024 XR CHEST 1 VW Date of Exam: 11/12/2024 6:28 PM EDT Indication: SOA triage protocol. Comparison: 07/16/2024 Findings: Heart size at the upper limits of normal. Pulmonary vessels normal. Lungs are clear. No pleural effusion. No pneumothorax. Impression: 1. No acute cardiopulmonary disease. Electronically Signed: Arben Neely MD 11/12/2024 7:02 PM EDT Workstation ID: [id number] I ordered and independently reviewed the above [...] [address] Angiogram Chest Pulmonary Embolism [place] Draw Comprehensive Metabolic Panel BNP High Sensitivity [...] on [employer]ex, who was sent by her quality control tech raw materials for worsening leg swelling and dyspnea. This [...] 80s. I have contacted Dr. Kirk her quality control tech raw materials who agrees with admission does not want any special orders at this time but will evaluate in the morning. Hospitalist team consulted for admission. [CC] ED Course User Index [CC] Vasu Mckeon MD Shared Decision Making: After my consideration of clinical presentation and any laboratory/radiology studies obtained, I discussed the findings with the patient/patient retail field representative who is in agreement with the treatment plan and the final disposition. Risks and benefits of discharge and/or observation/admission were discussed. OF 01:41 EDT VITALS: BP - 95/49 HR - 87 TEMP - 97.8 ??F (36.6 ??C) (Oral) O2 SATS - 95% DIAGNOSIS Final diagnoses: Referred by health child caregiver Dyspnea on exertion Chronic respiratory failure [...] Name 11/13/24 1426 Plan Plan [place] Patient/Family in Agreement with Plan yes Plan Comments Spoke with patient at the bedside. Patient lives alone in a home [place] [facility]. Wears 2L of oxygen and CPAP provided by [employer]. Independent and ambulates with a straight cane as needed. Not current with and outpatient services. PCP is Sandra Orozco APRN. Pharmacy is [facility]. Insurance is Medicare A & B. Plan is home at [place] and has transportation. 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 SWAB IN TRANSPORT MEDIA 1 HR TAT [...] AND COLOR FLOW (11/14/2024 11:32 AM EDT) [facility] EF(MOD-bp) 72.2 % LVIDd 4.3 cm [...] - 10.80 10*3/mm3 11/13/2024 12:36 PM EDT [facility] RBC 3.89 3.77 - 5.28 10*6/mm3 11/13/2024 12:36 PM EDT [facility] Hemoglobin 8.1(L) 12.0 - 15.9 g/dL 11/13/2024 12:36 PM EDT [facility] Hematocrit 29.1(L) 34.0 - 46.6 % 11/13/2024 12:36 PM EDT [facility] MCV 74.8(L) 79.0 - 97.0 fL 11/13/2024 12:36 PM EDT [facility] MCH 20.8(L) 26.6 - 33.0 pg 11/13/2024 12:36 PM EDT [facility] MCHC 27.8(L) 31.5 - 35.7 g/dL 11/13/2024 12:36 PM EDT [facility] RDW 19.0(H) 12.3 - 15.4 % 11/13/2024 12:36 PM EDT [facility] RDW-SD 51.3 37.0 - 54.0 fl 11/13/2024 12:36 PM EDT [facility] MPV 9.8 6.0 - 12.0 fL 11/13/2024 12:36 PM EDT [facility] Platelets 227 140 - 450 10*3/mm3 11/13/2024 12:36 PM EDT [facility] Neutrophil % 63.6 42.7 - 76.0 % 11/13/2024 12:36 PM EDT [facility] Lymphocyte % 23.3 19.6 - 45.3 % 11/[facility] Monocyte % 8.9 5.0 - 12.0 % 11/13/2024 12:36 PM [facility] Eosinophil % 2.8 0.3 - 6.2 % 11/13/2024 12:36 PM [facility] Basophil % 0.7 0.0 - 1.5 % 11/13/2024 12:36 PM EDT [facility] Immature Grans % 0.7(H) 0.0 - 0.5 % 11/13/2024 12:36 PM [facility] Neutrophils, Absolute 3.44 1.70 - 7.00 10*3/mm3 11/13/2024 12:[facility] Lymphocytes, Absolute 1.26 0.70 - 3.10 10*3/mm3 11/13/2024 12:36 PM [facility] Monocytes, Absolute 0.48 0.10 - 0.90 10*3/mm3 11/13/2024 12:[facility] Eosinophils, Absolute 0.15 0.00 - 0.40 10*3/mm3 11/13/2024 12:36 PM EDT [facility] Basophils, Absolute 0.04 0.00 - 0.20 10*3/mm3 11/13/2024 12:[facility] Immature Grans, Absolute 0.04 0.00 - 0.05 10*3/mm3 11/13/2024 12:36 [facility] nRBC 0.0 0.0 - 0.2 /100 WBC 11/13/2024 12:36 PM EDT [facility] Blood Venipuncture / Unknown 11/13/2024 12:07 PM EDT 11/13/2024 12:26 PM EDT Aaliyah Abhijeet MIRANDA LAB BLOOD ORDERABLES Final Re sult [facility]
[address] [place] [address], * (ABNORMAL) Reticulocytes (11/13/2024 12:07 PM EDT) Pathologist [facility] Reticulocyte % 2.78(H) 0.70 - 1.90 % 11/13/2024 12:32 PM EDT [facility] Reticulocyte Absolute 0.1081 0.0200 - 0.1300 10*6/mm3 11/13/2024 12:32 PM EDT [facility] Blood Venipuncture / Unknown 11/13/2024 12:07 PM EDT 11/13/2024 12:26 PM EDT Aaliyah Jha APRN LAB BLOOD ORDERABLES Final Re sult Performing Organization Address City/[facility]/ZIP Co de Phone Number [facility]
[address] [place] [address], * Folate RBC (11/13/2024 12:07 PM EDT) Folate, Hemolysate 538.0 Not Estab. ng/mL 11/16/2024 9:09 AM EDT [facility] Hematocrit 40.7 34.0 - 46.6 % 11/16/2024 9:09 AM EDT [facility] RBC Folate 1322 >498 ng/mL 11/16/2024 9:09 AM EDT [facility] Blood Venipuncture / Unknown 11/13/2024 12:07 PM EDT 11/13/2024 12:26 PM EDT Narrative [facility] - 11/16/2024 9:09 AM EDT Performed at: [address] [place] [id number] Power Plant Inspector: Gomez Crooks PhD, Phone: [phone] Aaliyah Jha APRN LAB BLOOD ORDERABLES Edited R esult - Final Performing Organization Address City/[facility]/ZIP Co de Phone Number [facility] [address] [place] [address], [place] [phone] * TSH (11/13/2024 12:07 PM EDT) TSH 2.770 0.270 - 4.200 uIU/mL 11/13/2024 12:56 PM EDT [facility] Blood Venipuncture / Unknown 11/13/2024 12:07 PM EDT 11/13/2024 12:26 PM EDT Aaliyah Jha APRN LAB BLOOD ORDERABLES Final Re sult Performing Organization Address City/[facility]/ZIP Co de Phone Number [facility]
[address] [place] [address], [place] [phone] * (ABNORMAL) Hemoglobin A1c (11/13/2024 12:07 PM EDT) Hemoglobin A1C 5.84(H) 4.80 - 5.60 % 11/13/2024 1:23 PM EDT [facility] Blood Venipuncture / Unknown 11/13/2024 12:07 PM EDT 11/13/2024 12:26 PM EDT Narrative [facility] - 11/13/2024 1:23 PM EDT Hemoglobin A1C Ranges: Increased Risk for Diabetes 5.7% to 6.4% Diabetes >= 6.5% Diabetic Goal < 7.0% Aaliyah Abhijeet SOLE SCRAPER LAB BLOOD ORDERABLES Final Re sult Performing Organization Address City/[facility]/ZIP Co de Phone Number [facility]
[address] [place] [address], * Magnesium (11/13/2024 12:07 PM EDT) Magnesium 1.9 1.6 - 2.4 mg/dL 11/13/2024 12:56 PM EDT [facility] Blood Venipuncture / Unknown 11/13/2024 12:07 PM EDT 11/13/2024 12:26 PM EDT Aaliyah Jha APRN LAB BLOOD ORDERABLES Final Re sult Performing Organization Address [facility] Co de Phone Number [facility]
[address] [place] [address], * (ABNORMAL) Basic Metabolic Panel (11/13/2024 12:07 PM EDT) Glucose 100(H) 65 - 99 mg/dL 11/13/2024 12:56 PM EDT [facility] BUN 19.7 8.0 - 23.0 mg/dL 11/13/2024 12:56 PM EDT [facility] Creatinine 0.93 0.57 - 1.00 mg/dL 11/13/2024 12:56 PM EDT [facility] Sodium 143 136 - 145 mmol/L 11/13/2024 12:56 PM EDT [facility] Potassium 3.8 3.5 - 5.2 mmol/L 11/13/2024 12:56 PM EDT [facility] Chloride 102 98 - 107 mmol/L 11/13/2024 12:56 PM EDT [facility] CO2 31.1(H) 22.0 - 29.0 mmol/L 11/13/2024 12:56 PM EDT [facility] Calcium 8.6 8.6 - 10.5 mg/dL 11/13/2024 12:56 PM EDT [facility] BUN/Creatinine Ratio 21.2 7.0 - 25.0 11/13/2024 12:56 PM EDT [facility] Anion Gap 9.9 5.0 - 15.0 mmol/L 11/13/2024 12:56 PM EDT [facility] eGFR 67.9 >60.0 mL/min/1.7 3 11/13/2024 12:56 PM EDT [facility] Blood Venipuncture / Unknown 11/13/2024 12:07 PM EDT 11/13/2024 12:26 PM EDT Narrative [facility] - 11/13/2024 12:56 PM EDT [...] race as a factor us Aaliyah Jha SOLE SCRAPER LAB BLOOD ORDERABLES Final Re sult [facility]
[address] [place] [address], * Duplex Venous Lower Extremity - Bilateral [...] 12 Lead Dyspnea (11/13/2024 5:53 AM EDT) [facility] QT Interval 410 ms ECG QTC [...] change was found Confirmed by ABDULLAHI HENDRICKSON ([id number]) on 11/13/2024 7:39:07 PM Referred By: Confirmed [...] change was found Confirmed by ABDULLAHI HENDRICKSON ([id number]) on 11/13/2024 7:39:07 PM Referred By: Confirmed By: ABDULLAHI HENDRICKSON Aaliyah Jha APRN ECG ORDERABLES Final Result ECG * Respiratory Panel PCR w/COVID-19(SARS-CoV-2) SIDRA/CHECO/SAUD/PAD/COR/ERIC In-House, [employer] Swab in UTM/VTM, 2 HR TAT - Swab, Nasopharynx (11/13/2024 3:26 AM EDT) ADENOVIRUS, PCR Not Detected Not Detected [facility] 11/13/2024 4:48 AM EDT [facility] Coronavirus 229E Not Detected Not Detected [facility] 11/13/2024 4:48 AM EDT [facility] Coronavirus HKU1 Not Detected Not Detected [facility] 11/13/2024 4:48 AM EDT [facility] Coronavirus NL63 Not Detected Not Detected [facility] 11/13/2024 4:48 AM EDT [facility] Coronavirus OC43 Not Detected Not Detected [facility] 11/13/2024 4:48 AM EDT [facility] COVID19 Not Detected Not Detected - Ref. Range [facility] 11/13/2024 4:48 AM EDT [facility] Human Metapneumovirus Not Detected Not Detected [facility] 11/13/2024 4:48 AM EDT [facility] Human Rhinovirus/Enterov irus Not Detected Not Detected [facility] 11/13/2024 4:48 AM EDT [facility] Influenza A PCR Not Detected Not Detected [facility] 11/13/2024 4:48 AM EDT [facility] Influenza B PCR Not Detected Not Detected [facility] 11/13/2024 4:48 AM EDT [facility] Parainfluenza Virus 1 Not Detected Not Detected [facility] 11/13/2024 4:48 AM EDT [facility] Parainfluenza Virus 2 Not Detected Not Detected [facility] 11/13/2024 4:48 AM EDT [facility] Parainfluenza Virus 3 Not Detected Not Detected [facility] 11/13/2024 4:48 AM EDT [facility] Parainfluenza Virus 4 Not Detected Not Detected [facility] 11/13/2024 4:48 AM EDT [facility] RSV, PCR Not Detected Not Detected [facility] 11/13/2024 4:48 AM EDT [facility] Bordetella pertussis pcr Not Detected Not Detected [facility] 11/13/2024 4:48 AM EDT [facility] Bordetella parapertussis PCR Not Detected Not Detected [facility] 11/13/2024 4:48 AM EDT [facility] Chlamydophila pneumoniae PCR Not Detected Not Detected [facility] 11/13/2024 4:48 AM EDT [facility] Mycoplasma pneumo by PCR Not Detected Not Detected [facility] 11/13/2024 4:48 AM EDT [facility] Swab Nasopharyngeal structure / Unknown Collection / Unknown 11/13/2024 3:26 AM EDT 11/13/2024 4:00 AM EDT [facility] - 11/13/2024 4:48 AM EDT [...] MICROBIOLOGY - GENERAL ORDERA BLES Final Result [facility]
[address] [place] [address], * (ABNORMAL) Blood Gas, Venous With Co-Ox (11/12/2024 11:16 PM EDT) Site Nurse/Dr Draw 11/12/2024 11:17 PM EDT [facility] THERAPY pH, Venous 7.337 7.310 - 7.410 pH Units 11/12/2024 11:17 PM EDT [facility] THERAPY pCO2, Venous 59.6(H) 41.0 - 51.0 mm Hg 11/12/2024 11:17 PM EDT [facility]ER[facility] Comment:83 Value above refer ence range pO2, Venous 30.4 27.0 - 53.0 mm Hg 11/12/2024 11:17 PM EDT [facility] THERAPY HCO3, Venous 31.9(H) 22.0 - 28.0 mmol/L 11/12/2024 11:17 PM EDT [facility] THERAPY Base Excess, Venous 5.0(H) -2.0 - 2.0 mmol/L 11/12/2024 11:17 PM EDT [facility] THERAPY Hemoglobin, Blood Gas 9.3(L) 14 - 18 g/dL 11/12/2024 11:17 PM EDT [facility] THERAPY Oxyhemoglobin Venous 48.3 % 06/2024 11:17 PM EDT [facility] THERAP[facility] Methemoglobin Venous 0.4 % 06/2024 11:17 PM EDT [facility] THER[facility]Y Carboxyhemoglobin Venous 1.7 % 11/12/2024 11:17 PM EDT [facility] THERAPY CO2 Content 33.7(H) 22 - 33 mmol/L 11/12/2024 11:17 PM EDT [facility] THERAPY Temperature 37.0 11/12/2024 11:17 PM EDT [facility] THERAPY Barometric Pressure for Blood Gas 11/12/2024 11:17 PM EDT [facility] THERAP[facility] Comment:N/A Modality Nasal Cannula 11/12/2024 11:17 PM EDT [facility] THERAPY FIO2 28 % 11/12/2024 11:17 PM EDT [facility] THERAPY Rate 0 Breaths/ minute 11/12/2024 11:17 PM EDT [facility] THERAPY PIP 0 cmH2O 11/12/2024 11:17 PM EDT [facility] THERAPY Comment:Meter: [id number] Team Leader Surgery: [id number] IPAP 0 11/12/2024 11:17 PM EDT [facility] THERAPY EPAP 0 11/12/2024 11:17 PM EDT [facility] THERAPY Venous Blood 11/12/2024 11:1 6 PM EDT 11/12/2024 11:16 PM EDT us Vasu Mckeon MD LAB BLOOD ORDERABLES Fin al Result [facility] THERAPY
[address] [place] [address], * CT Angiogram Chest Pulmonary Embolism (11/12/2024 7:46 PM EDT) Anatomical Region Laterality Modality Chest N/A Computed Tomogra phy 11/12/2024 8:22 PM EDT Impressions 11/12/2024 8:31 PM EDT No evidence of pulmonary embolus. No acute abnormality. Electronically Signed: Jed Machuca MD 11/12/2024 8:31 PM EDT Workstation ID: [id number] Hermann 11/12/2024 8:[address] ANGIOGRAM [...] MD 11/12/2024 8:31 PM EDT Workstation ID: [id number] Vasu Mckeon MD IMG CT ORDERABLES Final Result * COVID-19, FLU A/B, RSV PCR 1 HR TAT - Swab, Nasopharynx (11/12/2024 7:21 PM EDT) Pathologist [facility] COVID19 Not Detected Not Detected - Ref. Range CEPHEID GENEXPERT 11/12/2024 8:24 PM EDT [facility] Influenza A PCR Not Detected Not Detected [facility]EXP[facility] 11/12/2024 8:24 PM EDT [facility] Influenza B PCR Not Detected Not Detected [facility]EXP[employer] 11/12/2024 8:24 PM EDT [facility] RSV, PCR Not Detected Not Detected CEPHEID GENEXP[employer] 11/12/2024 8:24 PM EDT [facility] Swab Nasopharyngeal structure / Unknown Collection / Unknown 11/12/2024 7:21 PM EDT 11/12/2024 7:46 PM EDT Vasu Mckeon MD MICROBIOLOGY - GENERAL O RDERABLES Final Result [facility]
[address] [place] [address], * Sodium, Urine, Random - Urine, Clean Catch (11/12/2024 7:20 PM EDT) Pathologist [facility] Sodium, Urine <20 mmol/L 11/13/2024 3:37 AM EDT [facility] Urine Urine specimen obtained by clean catch procedure / Unknown Collection / Unknown 11/12/2024 7:20 PM EDT 11/12/2024 7:46 PM EDT [facility] - 11/13/2024 3:37 AM EDT Reference intervals for random urine have not been established. Clinical usage is dependent upon physician's interpretation in combination with other laboratory tests. us Aaliyah Jha APRN URINE ORDERABLES Final Result [facility]
[address] [place] [address], * Osmolality, Urine - Urine, Clean Catch (11/12/2024 7:20 PM EDT) Osmolality, Urine 837 300 - 1,100 mOsm/kg 11/13/2024 4:00 AM EDT [facility] Urine Urine specimen obtained by clean catch procedure / Unknown Collection / Unknown 11/12/2024 7:20 PM EDT 11/12/2024 7:46 PM EDT us Aaliyah Jha APRN URINE ORDERABLES Final Result [facility]
[address] [place] [address], * Creatinine Urine Random (kidney function) GFR component - Urine, Clean Catch (11/12/2024 7:20 PM EDT) Creatinine, Urine 276.6 mg/dL 11/13/2024 9:46 AM EDT [facility] Urine Urine specimen obtained by clean catch procedure / Unknown Collection / Unknown 11/12/2024 7:20 PM EDT 11/13/2024 3:13 AM EDT [facility] - 11/13/2024 9:46 AM EDT Reference intervals for random urine have not been established. Clinical usage is dependent upon physician's interpretation in combination with other laboratory tests. us Aaliyah Jha APRN URINE ORDERABLES Final Result Performing Organization Address City/[facility]/ZIP Co de Phone Number [facility]
[address] [place] [address], * Urine Culture - Urine, Urine, Clean Catch (11/12/2024 7:20 PM EDT) Urine Culture No growth [id number] 11/14/2024 12:26 PM EDT [facility] Urine Urine specimen obtained by clean catch procedure / Unknown Collection / Unknown 11/12/2024 7:20 PM EDT 11/13/2024 12:57 AM EDT Vasu Mckeon MD MICROBIOLOGY - GENERAL O RDERABLES Final Result Performing Organization Address City/[facility]/ZIP Co de Phone Number [facility]
[address] [place] [address], * (ABNORMAL) Urinalysis, Microscopic Only - Urine, Clean Catch (11/12/2024 7:20 PM EDT) RBC, UA 0-2 None Seen, 0-2 /HPF 11/12/2024 8:00 PM EDT [facility] WBC, UA 11-20(A) None Seen, 0-2 /HPF 11/12/2024 8:00 PM EDT [facility] Bacteria, UA None Seen None Seen /HPF 11/12/2024 8:00 PM EDT [facility] Squamous Epithelial Cells, UA 3-6(A) None Seen, 0-2 /HPF 11/12/2024 8:00 PM EDT [facility] Hyaline Casts, UA 0-2 None Seen /LPF 11/12/2024 8:00 PM EDT [facility] Methodology Automated Microscopy 11/12/2024 8:00 PM EDT [facility] Urine Urine specimen obtained by clean catch procedure / Unknown Collection / Unknown 11/12/2024 7:20 PM EDT 11/12/2024 7:46 PM EDT us Vasu Mckeon MD URINE ORDERABLES Final R esult [facility]
[address] [place] [address], * (ABNORMAL) Urinalysis With Microscopic If Indicated (No Culture) - Urine, Clean Catch (11/12/2024 7:20 PM EDT) Color, UA Yellow Yellow, Straw 11/12/2024 8:00 PM EDT [facility] Appearance, UA Clear Clear 11/12/2024 8:00 PM EDT [facility] pH, UA 5.5 5.0 - 8.0 11/12/2024 8:00 PM EDT [facility] Specific [place], UA >1.030(H) 1.005 - 1.030 11/12/2024 8:00 PM EDT [facility] Glucose, UA Negative Negative 11/12/2024 8:00 PM EDT [facility] Ketones, UA Negative Negative 11/12/2024 8:00 PM EDT [facility] Bilirubin, UA Negative Negative 11/12/2024 8:00 PM EDT [facility] Blood, UA Negative Negative 11/12/2024 8:00 PM EDT [facility] Protein, UA Trace(A) Negative 11/12/2024 8:00 PM EDT [facility] Leuk Esterase, UA Small (1+)(A) Negative 11/12/2024 8:00 PM EDT [facility] Nitrite, UA Negative Negative 11/12/2024 8:00 PM EDT [facility] Urobilinogen, UA 1.0 E.U./dL 0.2 - 1.0 E.U./dL 11/12/2024 8:00 PM EDT [facility] Urine Urine specimen obtained by clean catch procedure / Unknown Collection / Unknown 11/12/2024 7:20 PM EDT 11/12/2024 7:46 PM EDT Vasu Mckeon MD URINE ORDERABLES Final R esult [facility]
[address] [place] [address], * Ferritin (11/12/2024 7:16 PM EDT) Ferritin 13.80 13.00 - 150.00 ng/mL 11/13/2024 3:24 AM EDT [facility] Blood Venipuncture / Unknown 11/12/2024 7:16 PM EDT 11/13/2024 2:57 AM EDT Narrative [facility] - 11/13/2024 3:24 AM EDT Results may be falsely decreased if patient taking Biotin. Aaliyah Jha APRN LAB BLOOD ORDERABLES Final Re sult Performing Organization Address City/[facility]/ZIP Co de Phone Number [facility]
[address] [place] [address], * (ABNORMAL) Iron Profile w/o Ferritin (11/12/2024 7:16 PM EDT) Iron 21(L) 37 - 145 mcg/dL 11/13/2024 3:24 AM EDT [facility] Iron Saturation (TSAT) 4(L) 20 - 50 % 11/13/2024 3:24 AM EDT [facility] Transferrin 321 200 - 360 mg/dL 11/13/2024 3:24 AM EDT [facility] TIBC 478 298 - 536 mcg/dL 11/13/2024 3:24 AM EDT [facility] Blood Venipuncture / Unknown 11/12/2024 7:16 PM EDT 11/13/2024 2:57 AM EDT Aaliyahcolleen Jha APRN LAB BLOOD ORDERABLES Final Re sult Performing Organization Address [facility] Co de Phone Number [facility]
[address] [place] [address], * (ABNORMAL) High Sensitivity Troponin T 1Hr (11/12/2024 7:16 PM EDT) HS Troponin T 16(H) <14 ng/L 11/12/2024 7:53 PM EDT [facility] Troponin T Numeric Delta -1 ng/L 11/12/2024 7:53 PM EDT [facility] Troponin T % Delta -6 Abnormal if >/= 20% 11/12/2024 7:53 PM EDT [facility] Blood Line / Unknown 11/12/2024 7: 16 PM EDT 11/12/2024 7:20 PM EDT Narrative [facility] - 11/12/2024 7:53 PM EDT [...] ORDERABLES Fin al Result Performing Organization Address [facility]/ZIP Co de Phone Number [facility]
[address] [place] [address], * XR Chest 1 View (11/12/2024 6:30 PM EDT) Anatomical Region Laterality Modality Body N/A Radiographic Tatyana ging 11/12/2024 7:00 PM EDT Impressions 11/12/2024 7:02 PM EDT Impression: 1. No acute cardiopulmonary disease. Electronically Signed: Arben Neeyl MD 11/12/2024 7:02 PM EDT Workstation ID: [id number] Narrative 11/12/2024 7:02 PM EDT XR CHEST [...] MD 11/12/2024 7:02 PM EDT Workstation ID: [id number] Vasu Mckeon MD IMG DIAGNOSTIC IMAGING O RDERABLES Final Result * (ABNORMAL) Vitamin B12 (11/12/2024 5:17 PM EDT) [facility] Vitamin B-12 1,669(H) 211 - 946 pg/mL 11/13/2024 9:54 AM EDT [facility] Blood Venipuncture / Unknown 11/12/2024 5:17 PM EDT 11/13/2024 2:59 AM EDT Narrative [facility] - 11/13/2024 9:54 AM EDT Results may be falsely increased if patient taking Biotin. Aaliyah Jha APRN LAB BLOOD ORDERABLES Final Re sult [facility]
[address] [place] [address], * Folate (11/12/2024 5:17 PM EDT) [facility] Folate >20.00 4.78 - 24.20 ng/mL 11/13/2024 9:54 AM EDT [facility] Blood Venipuncture / Unknown 11/12/2024 5:17 PM EDT 11/13/2024 2:59 AM EDT Narrative [facility] - 11/13/2024 9:54 AM EDT Results may be falsely increased if patient taking Biotin. Aaliyah Jha APRN LAB BLOOD ORDERABLES Final Re sult [facility]
[address] [place] [address], * Scan Slide (11/12/2024 5:17 PM EDT) Anisocytosis Slight/1+ None Seen 11/12/2024 6:07 PM EDT [facility] Hypochromia Slight/1+ None Seen 11/12/2024 6:07 PM EDT [facility] Microcytes Mod/2+ None Seen 11/12/2024 6:07 PM EDT [facility] WBC Morphology Normal Normal 11/12/2024 6:07 PM EDT [facility] Platelet Morphology Normal Normal 11/12/2024 6:07 PM EDT [facility] Blood Venipuncture / Unknown 11/12/2024 5:17 PM EDT 11/12/2024 5:17 PM EDT Vasu Mckeon MD LAB BLOOD ORDERABLES Fin al Result [facility]
[address] [place] [address], [place] [phone] * Magnesium (11/12/2024 5:17 PM EDT) Magnesium 1.9 1.6 - 2.4 mg/dL 11/12/2024 5:51 PM EDT [facility] Blood Venipuncture / Unknown 11/12/2024 5:17 PM EDT 11/12/2024 5:17 PM EDT Vasu Mckeon MD LAB BLOOD ORDERABLES Fin al Result Performing Organization Address City/[facility]/ZIP Co de Phone Number [facility]
[address] [place] [address], * Phosphorus (11/12/2024 5:17 PM EDT) Phosphorus 4.1 2.5 - 4.5 mg/dL 11/12/2024 5:51 PM EDT [facility] Blood Venipuncture / Unknown 11/12/2024 5:17 PM EDT 11/12/2024 5:17 PM EDT Vasu Mckeon MD LAB BLOOD ORDERABLES Fin al Result Performing Organization Address [facility] Co de Phone Number [facility]
[address] [place] [address], * TSH Rfx On Abnormal To Free T4 (11/12/2024 5:17 PM EDT) TSH 2.480 0.270 - 4.200 uIU/mL 11/12/2024 5:51 PM EDT [facility] Blood Venipuncture / Unknown 11/12/2024 5:17 PM EDT 11/12/2024 5:17 PM EDT Vasu Mckeon MD LAB BLOOD ORDERABLES Fin al Result Performing Organization Address City/[facility]/ZIP Co de Phone Number [facility]
[address] [place] [address], * Lipase (11/12/2024 5:17 PM EDT) Lipase 20 13 - 60 U/L 11/12/2024 5:51 PM EDT [facility] Blood Venipuncture / Unknown 11/12/2024 5:17 PM EDT 11/12/2024 5:17 PM EDT Vasu Mckeon MD LAB BLOOD ORDERABLES Fin al Result Performing Organization Address [facility] Phone Number [facility]
[address] [place] [address], * Lactic Acid, Plasma (11/12/2024 5:17 PM EDT) [facility] Lactate 1.6 0.5 - 2.0 mmol/L 11/12/2024 5:49 PM EDT [facility] Comment:Falsely depressed re sults may occur on samples drawn from patients receiving N-Acetylcysteine (NAC) or Metamizole. Blood Venipuncture / Unknown 11/12/2024 5:17 PM EDT 11/12/2024 5:17 PM EDT Vasu Mckeon MD LAB BLOOD ORDERABLES Fin al Result Performing Organization Address [facility] Phone Number [facility]
[address] [place] [address], * (ABNORMAL) D-dimer, Quantitative (11/12/2024 5:17 PM EDT) [facility] D-Dimer, Quantitative 10.36(H) 0.00 - 0.66 MCGFEU/mL 11/12/2024 6:00 PM EDT [facility] Blood Venipuncture / Unknown 11/12/2024 5:17 PM EDT 11/12/2024 5:17 PM EDT Narrative [facility] - 11/12/2024 6:00 PM EDT According to the assay solutions market consultant's published package insert, a normal (<0.50 MCGFEU/mL) D-dimer result in conjunction with a non-high clinical probability assessment, excludes deep vein thrombosis (DVT) and pulmonary embolism (PE) with high sensitivity. D-dimer values increase with age and this can make VTE exclusion of an older population difficult. To address this, the [employer], based on best available [...] MCGFEU/mL. Vasu Mckeon MD LAB BLOOD ORDERABLES [facility] al Result [facility]
[address] [place] [address] * (ABNORMAL) CBC Auto Differential (11/12/2024 5:17 PM EDT) [facility] WBC 5.82 3.40 - 10.80 10*3/mm3 11/12/2024 6:07 PM EDT [facility] RBC 4.33 3.77 - 5.28 10*6/mm3 11/12/2024 6:07 PM EDT [facility] Hemoglobin 9.0(L) 12.0 - 15.9 g/dL 11/12/2024 6:07 PM EDT [facility] Hematocrit 32.5(L) 34.0 - 46.6 % 11/12/2024 6:07 PM EDT [facility] MCV 75.1(L) 79.0 - 97.0 fL 11/12/2024 6:07 PM EDT [facility] MCH 20.8(L) 26.6 - 33.0 pg 11/12/2024 6:07 PM EDT [facility] MCHC 27.7(L) 31.5 - 35.7 g/dL 11/12/2024 6:07 PM EDT [facility] RDW 19.1(H) 12.3 - 15.4 % 11/12/2024 6:07 PM EDT [facility] RDW-SD 51.8 37.0 - 54.0 fl 11/12/2024 6:07 PM EDT [facility] MPV 9.5 6.0 - 12.0 fL 11/12/2024 6:07 PM EDT [facility] Platelets 240 140 - 450 10*3/mm3 11/12/2024 6:07 PM EDT [facility] Neutrophil % 58.8 42.7 - 76.0 % 11/12/2024 6:07 PM EDT [facility] Lymphocyte % 26.5 19.6 - 45.3 % 11/12/2024 6:07 PM EDT [facility] Monocyte % 7.6 5.0 - 12.0 % 11/12/2024 6:07 PM EDT [facility] Eosinophil % 5.5 0.3 - 6.2 % 11/12/2024 6:07 PM EDT [facility] Basophil % 0.7 0.0 - 1.5 % 11/12/2024 6:07 PM EDT [facility] Immature Grans % 0.9(H) 0.0 - 0.5 % 11/12/2024 6:07 PM EDT [facility] Neutrophils, Absolute 3.43 1.70 - 7.00 10*3/mm3 11/12/2024 6:07 PM EDT [facility] Lymphocytes, Absolute 1.54 0.70 - 3.10 10*3/mm3 11/12/2024 6:07 PM EDT [facility] Monocytes, Absolute 0.44 0.10 - 0.90 10*3/mm3 11/12/2024 6:07 PM EDT [facility] Eosinophils, Absolute 0.32 0.00 - 0.40 10*3/mm3 11/12/2024 6:07 PM EDT [facility] Basophils, Absolute 0.04 0.00 - 0.20 10*3/mm3 11/12/2024 6:07 PM EDT [facility] Immature Grans, Absolute 0.05 0.00 - 0.05 10*3/mm3 11/12/2024 6:07 PM EDT [facility] nRBC 0.0 0.0 - 0.2 /100 WBC 11/12/2024 6:07 PM EDT [facility] Blood Venipuncture / Unknown 11/12/2024 5:17 PM EDT 11/12/2024 5:17 PM EDT Narrative [facility] - 11/12/2024 6:07 PM EDT Appended report. These results have been appended to a previously verified report. Vasu Mckeon MD LAB BLOOD ORDERABLES Fin al Result [facility]
[address] [place] [address], * Light Blue Top (11/12/2024 5:17 PM EDT) Extra Tube Hold for add-ons. 11/12/2024 5:31 PM EDT [facility] Comment:Auto resulted Blood Venipuncture / Unknown 11/12/2024 5:17 PM EDT 11/12/2024 5:17 PM EDT Vasu Mckeon MD LAB BLOOD ORDER ONLY Fin al Result [facility]
[address] [place] [address], * [place] Top (11/12/2024 5:17 PM EDT) Extra Tube Hold for add-ons. 11/12/2024 5:[facility] Comment:Auto resulted. Blood Venipuncture / Unknown 11/12/2024 5:17 PM EDT 11/12/2024 5:17 PM EDT Vasu Mckeon MD LAB BLOOD ORDER ONLY Fin al Result Performing Organization Address City/[facility]/ZIP Co de Phone Number [facility]
[address] [place] [address], [place] [phone] * Gold Top - SST (11/12/2024 5:17 PM EDT) Extra Tube Hold for add-ons. 11/12/2024 5:32 PM EDT [facility] Comment:Auto resulted. Blood Venipuncture / Unknown 11/12/2024 5:17 PM EDT 11/12/2024 5:17 PM EDT Vasu Mckeon MD LAB BLOOD ORDER ONLY Fin al Result Performing Organization Address [facility]/[place] [facility] Co de Phone Number [facility]
[address] [place] [address], [place] [phone] * Lavender Top (11/12/2024 5:17 PM EDT) Extra Tube hold for add-on 11/12/2024 5:31 PM EDT [facility] Comment:Auto resulted Blood Venipuncture / Unknown 11/12/2024 5:17 PM EDT 11/12/2024 5:17 PM EDT Vasu Mckeon MD LAB BLOOD ORDER ONLY Fin al Result Performing Organization Address City/[facility]/ZIP Co de Phone Number [facility]
[address] [place] [address], [place] [phone] * Green Top (Gel) (11/12/2024 5:17 PM EDT) Extra Tube Hold for add-ons. 11/12/2024 5:31 PM EDT [facility] Comment:Auto resulted. Blood Venipuncture / Unknown 11/12/2024 5:17 PM EDT 11/12/2024 5:17 PM EDT Vasu Mckeon MD LAB BLOOD ORDER ONLY Fin al Result Performing Organization Address City/[facility]/ZIP Co de Phone Number [facility]
[address] [place] [address], * (ABNORMAL) High Sensitivity Troponin T (11/12/2024 5:17 PM EDT) [facility] HS Troponin T 17(H) <14 ng/L 11/12/2024 5:51 PM EDT [facility] Blood Venipuncture / Unknown 11/12/2024 5:17 PM EDT 11/12/2024 5:17 PM EDT Narrative [facility] - 11/12/2024 5:51 PM EDT [...] ORDERABLES Fin al Result Performing Organization Address City/[facility]/ZIP Co de Phone Number [facility]
[address] [place] [address], * BNP (11/12/2024 5:17 PM EDT) [facility] proBNP 247.0 0.0 - 900.0 pg/mL 11/12/2024 5:51 PM EDT [facility] Blood Venipuncture / Unknown 11/12/2024 5:17 PM EDT 11/12/2024 5:17 PM EDT Narrative [facility] - 11/12/2024 5:51 PM EDT [...] MD LAB BLOOD ORDERABLES Fin al Result [facility]
[address] [place] [address], * (ABNORMAL) Comprehensive Metabolic Panel (11/12/2024 5:17 PM EDT) Glucose 96 65 - 99 mg/dL 11/12/2024 5:51 PM EDT [facility] BUN 24.7(H) 8.0 - 23.0 mg/dL 11/12/2024 5:51 PM EDT [facility] Creatinine 1.06(H) 0.57 - 1.00 mg/dL 11/12/2024 5:51 PM EDT [facility] Sodium 139 136 - 145 mmol/L 11/12/2024 5:51 PM EDT [facility] Potassium 4.4 3.5 - 5.2 mmol/L 11/12/2024 5:51 PM EDT [facility] Chloride 101 98 - 107 mmol/L 11/12/2024 5:51 PM EDT [facility] CO2 27.9 22.0 - 29.0 mmol/L 11/12/2024 5:51 PM EDT [facility] Calcium 9.1 8.6 - 10.5 mg/dL 11/12/2024 5:51 PM EDT [facility] Total Protein 6.4 6.0 - 8.5 g/dL 11/12/2024 5:51 PM EDT [facility] Albumin 4.0 3.5 - 5.2 g/dL 11/12/2024 5:51 PM EDT [facility] ALT (SGPT) 15 1 - 33 U/L 11/12/2024 5:51 PM EDT [facility] AST (SGOT) 27 1 - 32 U/L 11/12/2024 5:51 PM EDT [facility] Alkaline Phosphatase 113 39 - 117 U/L 11/12/2024 5:51 PM EDT [facility] Total Bilirubin 0.2 0.0 - 1.2 mg/dL 11/12/2024 5:51 PM EDT [facility] Globulin 2.4 gm/dL 11/12/2024 5:51 PM EDT [facility] Comment:Calculated Result A/G Ratio 1.7 g/dL 11/12/2024 5:51 PM T [facility] BUN/Creatinine Ratio 23.3 7.0 - 25.0 11/12/2024 5:51 PM T [facility] Anion Gap 10.1 5.0 - 15.0 mmol/L 11/12/2024 5:51 PM T [facility] eGFR 58.1(L) >60.0 mL/min/1.7 3 11/12/2024 5:51 PM T [facility] Blood Venipuncture / Unknown 11/12/2024 5:17 PM EDT 11/12/2024 5:17 PM EDT [facility] - 11/12/2024 5:51 PM EDT [...] MD LAB BLOOD ORDERABLES Fin al Result [facility]
[address] [place] [address], * ECG 12 Lead Dyspnea (11/12/2024 4:45 [...] failure with hypoxia- Primary Referred by health child caregiver Dyspnea on exertion Other dyspnea and [...] BPA Driven Protocol Open [facility] & [facility] Electrolyte Replacement Protocol Algorithm to View [...] (Canceled Entry - Provider: Luz Maria Neely, TELE MARKETING EXECUTIVE) bumetanide (BUMEX) injection 2 mg (COMPLETED) [...] Education 2252 (Given - Provider: Narciso Melton, TELE MARKETING EXECUTIVE) ipratropium-albuterol (DUO-NEB) nebulizer solution 3 mL 3 mL, Nebulization, 4 Times Daily - RT, First dose on Sat11/13/24 at 0830, Include Respiratory Treatment Education 0940 (Given - Provider: Laine Hernandez TELE MARKETING EXECUTIVE)1334 (Given - Provider: Laine Hernandez TELE MARKETING EXECUTIVE)1651 (Given - Provider: Laine Hernandez TELE MARKETING EXECUTIVE)2019 (Given - Provider: Eusebio Jade, SHIPPING ASSOCIATE) 0729 (Given - Provider: Luz Maria Neely, TELE MARKETING EXECUTIVE)0733 (Canceled Entry - Provider: Luz Maria Neely RRT)1335 (Given - Provider: Luz Maria Neely, TELE MARKETING EXECUTIVE)1608 (Not Given - Provider: Luz Maria [...] dose 1133 (Given - Provider: Shady Palmer, [facility]) venlafaxine XR (EFFEXOR-XR) 24 hr capsule 150 [...] BPA Driven Protocol [facility] Electrolyte Replacement Protocol Algorithm to View [...] BPA Driven Protocol Open Order & [facility] Electrolyte Replacement Protocol Algorithm to View [...] diarrhea documented in this encounter Care Teams Hide Splitter Relationship Specialty Start Date End Date Sandra Orozco APRN [address] [place] [address] [place] [address] PCP - General Internal Medicine 05/11/24 documented as of this encounter
--- OUTSIDE RECORDS SUMMARY | 2024-11-26 11:00 | XMS_ITS | Encounter Summary ---
Author Organization [facility] ystem Address [address] [place] [address] Care Team Providers Care Assembly Riveter Name Role Phone Sandra Orozco APRN Primary Care Provider Reason for Visit * Reason Comments Shortness of Breath Encounter Details Date Type Department Care Team (Latest Contact Info) Description 11/26/2024 11:00 AM EDT Office Visit [facility] [address] [facility] [address], [place] [address] Dina Solano APRN [address] [facility] [address] [place] [address] Paroxysmal atrial fibrillation (Primary Dx); History of [...] = 0.6 oz pur e alcohol) former [facility] Utilities Answer Date Recorded In the past 12 months has [employer], gas, oil, or water company threatened [...] care, and heating? Not very hard 11/13/2024 [facility] [place] of Occupat ional Health - Occupational Stress [...] GED or equivalent No 11/13/2024 Preferred Language Sierra Leonean 11/13/2024 PHQ-2 Answer Date Recorded Patient Health [...] 11:00 AM EDTAssociated Problem(s): Paroxysmal atrial fibrillation [id number] Continue Xarelto 15 mg p.o. daily Continue [...] Sandra Orozco APRN Date: 11/26/2024 Department: [facility] [address] [facility] [address] [facility] [id number] Chief Complaint: Chief Complaint Patient presents with Shortness of Breath Problem list: Paroxysmal atrial fibrillation/History of ischemic CVA/TIAs status post loop explant [id number] (Female, Age, CVA, PAD) PAF noted [...] to admission. 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 She [...] Plan Assessment & Plan Paroxysmal atrial fibrillation [id number] Continue Xarelto 15 mg p.o. daily Continue [...] 3 months (around 02/25/2025). Patient or patient in store representative verbalized consent for the use of Ambient Listening during the visit with Dina Solano APRN for chart documentation. 11/26/2024 10:42 EDT Dina Solano APRN [facility] Cardiology documented in this encounter Plan of Treatment Upcoming Encounters Date Type Department Care Team (Late st Contact Info) Description 02/16/2025 11:00 AM EST Office Visit [facility] [address] [facility] [address] [place] [address] Dina Solano APRN [address] [facility] [address] [place] [address] Scheduled Orders Name Type Priority Associated Diagnoses [...] LAB BLOOD ORDERABLES Final Re sult [facility]
[address] [place] [address], documented in this encounter Visit Diagnoses Diagnosis Paroxysmal atrial fibrillation- Primary Atrial fibrillation History of CVA (cerebrovascular accident) Transient ischemic attack (TIA), and cerebral infarction without residual deficits Chronic respiratory failure with hypoxia Hyperlipidemia LDL goal <55 Prediabetes Other abnormal glucose Anemia, unspecified type Chronic venous insufficiency of lower extremity Chronic obstructive pulmonary disease, unspecified COPD type documented in this encounter Care Teams Assembly Riveter Relationship Specialty Start Date End Date Sandra Orozco APRN [address] [address] PCP - General Internal Medicine 05/11/24 documented as of this encounter
--- OUTSIDE RECORDS SUMMARY | 2024-12-30 11:05 | XMS_ITS | Encounter Summary ---
Author Organization [facility] Address [address] [place] [address] Care Team Providers Care Head Correction Officer Name Role Phone Sandra Orozco APRN Primary Care Provider [phone] Encounter Details Date Type Department Care Team (Latest Contact Info) Description 11/26/2024 Travel Social History Tobacco Use Types Packs/Day Years Used Date Smoking Tobacco: Former Cigarettes 2 45 Q uit: 05/10/2023 Smokeless Tobacco: Never Comments:Liked to smoke Alcohol Use Standard Drinks/Week Comments Not Currently 0 (1 standard drink = 0.6 oz pur e alcohol) former [facility] Utilities Answer Date Recorded In the past 12 months has [facility] electric, gas, oil, or water company threatened [...] care, and heating? Not very hard 11/13/2024 [facility] [place] of Occupat ional Health - Occupational Stress [...] GED or equivalent No 11/13/2024 Preferred Language Moldovan 11/13/2024 PHQ-2 Answer Date Recorded Patient Health [...] Description 02/16/2025 11:00 AM EST Office Visit [facility] C[facility] [address] [facility] [address], [place] [address] Dina Solano APRN [address] [facility] [address], [place] [address] documented as of this encounter Visit Diagnoses Not on filedocumented in this encounter Care Teams Head Correction Officer Relationship Specialty Start Date End Date Sandra Orozco APRN [address] [place] [address] [address] PCP - General Internal Medicine 05/11/24 documented as of this encounter
--- OUTSIDE RECORDS SUMMARY | 2024-12-30 11:06 | XMS_ITS | Clinical Summary ---
[facility] Address [address] [place] [address] Care Team Providers Care Housekeeper Nanny Name Role Phone Sandra Orozco APRN [...] all over Nortriptyline Swelling Low 04/15/2024 Poison Raymond Extract Hives,Itching,Swell ing,Rash Low 04/15/2024 Poison oak/poison [...] mouth Daily With Dinner. 90 tablet 3 5 Active triamcinolone (KENALOG) 0.1 % cream Apply 1 Application topically to the appropriate area as directed 2 (Two) Times a Day. Active PHARMACY MEDS TO BED CONSULT Use Daily. Active HYDROcodone-gudelia taminophen (NORCO) 5-325 MG per tablet Take 1 tablet by mouth Every 4 (Four) Hours As Needed. Active Active Problems Problem Noted Date Diagnosed [...] of breath and lower extremity edema. Her him analyst was concerned about heart failure and advised [...] Assessment & Plan (11/26/2024 2:20 PM EDT): [id number] Continue Xarelto 15 mg p.o. daily Continue [...] Assessment & Plan (07/16/2024 12:10 PM EDT): [id number] 5 Continue Xarelto 15 mg p.o. daily, [...] Department Care Team Description 11/30/2024 Readmission Management [facility] [address] [place] [address] Christiano Gresham RN 11/26/2024 11:00 AM EDT Office Visit [facility] [address] [place] [address] [address] [place] [address] Dina Solano APRN Paroxysmal atrial fibrillation (Primary Dx); History of CVA (cerebrovascular accident); Chronic respiratory failure with hypoxia; Hyperlipidemia LDL goal <55; Prediabetes; Anemia, unspecified type; Chronic venous insufficiency of lower extremity; Chronic obstructive pulmonary disease, unspecified COPD type 11/26/2024 Travel 11/23/2024 Readmission Management [facility] [address] [place] [address] Kaykay Farrar RN 11/16/2024 Readmission Management [facility] [address] [place] [address] Omaira Knapp RN 11/12/2024 9:36 PM EDT - 11/14/2024 4:38 PM EDT Hospital Encounter [address] [place] [id number] Logan Araujo MD Butler, Jennifer, MD Barbato, Hayley R, DO West, Christopher R, MD Referred by health acute care physician (Primary Dx); Dyspnea on exertion; Chronic respiratory failure with hypoxia, on home O2 therapy; SMOOTH (obstructive sleep apnea); Elevated troponin; Moderate aortic valve regurgitation Discharge Disposition: Home or Self Care 11/12/2024 12:30 PM EDT Office Visit [facility] [address] [place] [place] [address] [address] [address] Dina Solano APRN Shortness of breath (Primary Dx); Generalized edema; Chronic respiratory failure with hypoxia; Paroxysmal atrial fibrillation; History of CVA (cerebrovascular accident); Moderate aortic valve regurgitation; Peripheral arterial disease 11/12/2024 Patient rounding ([facility] only) [facility] [address] [place] [address] Dina Solano APRN 11/12/2024 Travel 11/10/2024 Telephone [facility] [address] [place] [address] Christy Kirk MD from Last 3 Months Family History Medical History Relation Name Comments Hyperlipidemia Father Stanislaw Hypertension Father Stanislaw Anemia Mother Kerajennifer Shukla Arrhythmia Mother Kerajennifer Shukla Anemia Asthma Mother Kera Citizen [place] Coronary artery disease Mother Kera Citizen [place] Heart attack Mother [place]era [place] 2 different typ es of cancer. Heart stints, Heart disease Mother Kera [place] Heart failure Mother Kerajennifer Shukla Relation Name Status Comments Father Stanislaw Mother Kera Shukla Social History Tobacco Use Types Packs/Day Years Used Date Smoking Tobacco: Former Cigarettes 2 45 Q uit: 05/10/2023 Smokeless Tobacco: Never Comments:Liked to smoke Alcohol Use Standard Drinks/Week Comments Not Currently 0 (1 standard drink = 0.6 oz pur e alcohol) former [facility] Utilities Answer Date Recorded In the past 12 months has [employer] electric, gas, oil, or water Andre Phillipe threatened to shut off services in your [...] care, and heating? Not very hard 11/13/2024 [place] [facility] - Occupational Stress [...] GED or equivalent No 11/13/2024 Preferred Language [place] 11/13/2024 PHQ-2 Answer Date Recorded Patient Health [...] 11:00 AM EST Office Visit [facility] [address] [phone] Dina Solano APRN [address] [place] [address] Health Maintenance Due Date Last Done Comments [...] EDT RESPIRATORY PANEL PCR W/ COVID-19 (SARS-COV-2), FILM MASKER SWAB IN UTM/VTP, 2 HR TAT Routine 11/13/2024 3:26 AM EDT BLOOD GAS, VENOUS W/CO-OXIMETRY STAT 11/12/2024 11:[address] ANGIOGRAM CHEST PULMONARY EMBOLISM STAT 11/12/2024 7:46 PM EDT COVID-19/FLUA&B/RSV, FILM MASKER SWAB IN TRANSPORT MEDIA 1 HR TAT [...] APRN LAB BLOOD ORDERABLES Final Re sult [facility]
[address] [place] [id number], * ECHO COMPLETE W/ DOPPLER AND COLOR [...] resultswithin the time period is included. Pathologist [facility] WBC 5.41 3.40 - 10.80 10*3/mm3 11/13/2024 12:36 PM EDT [facility] RBC 3.89 3.77 - 5.28 10*6/mm3 11/13/2024 12:36 PM EDT [facility] Hemoglobin 8.1(L) 12.0 - 15.9 g/dL 11/13/2024 12:36 PM EDT [facility] Hematocrit 29.1(L) 34.0 - 46.6 % 11/13/2024 12:36 PM EDT [facility] MCV 74.8(L) 79.0 - 97.0 fL 11/13/2024 12:36 PM EDT [facility] MCH 20.8(L) 26.6 - 33.0 pg 11/13/2024 12:36 PM EDT [facility] MCHC 27.8(L) 31.5 - 35.7 g/dL 11/13/2024 12:36 PM EDT [facility] RDW 19.0(H) 12.3 - 15.4 % 11/13/2024 12:36 PM EDT [facility] RDW-SD 51.3 37.0 - 54.0 fl 11/13/2024 12:36 PM EDT [facility] MPV 9.8 6.0 - 12.0 fL 11/13/2024 12:36 PM EDT [facility] Platelets 227 140 - 450 10*3/mm3 11/13/2024 12:36 PM EDT [facility] Neutrophil % 63.6 42.7 - 76.0 % 11/13/2024 12:36 PM EDT [facility] Lymphocyte % 23.3 19.6 - 45.3 % 11/13/2024 12:36 PM EDT [facility] Monocyte % 8.9 5.0 - 12.0 % 11/13/2024 12:36 PM EDT [facility] Eosinophil % 2.8 0.3 - 6.2 % 11/13/2024 12:36 PM EDT [facility] Basophil % 0.7 0.0 - 1.5 % 11/13/2024 12:36 PM T [facility] Immature Grans % 0.7(H) 0.0 - 0.5 % 11/13/2024 12:36 PM [facility] Neutrophils, Absolute 3.44 1.70 - 7.00 10*3/mm3 11/13/2024 12:36 PM T [facility] Lymphocytes, Absolute 1.26 0.70 - 3.10 10*3/mm3 11/13/2024 12:36 PM EDT [facility] Monocytes, Absolute 0.48 0.10 - 0.90 10*3/mm3 11/13/2024 12:36 PM EDT [facility] Eosinophils, Absolute 0.15 0.00 - 0.40 10*3/mm3 11/13/2024 12:36 PM [facility] Basophils, Absolute 0.04 0.00 - 0.20 10*3/mm3 11/13/2024 12:36 PM [facility] Immature Grans, Absolute 0.04 0.00 - 0.05 10*3/mm3 11/13/2024 12:36 PM [facility] nRBC 0.0 0.0 - 0.2 /100 WBC 11/13/2024 12:36 PM [facility] Blood Venipuncture / Unknown 11/13/2024 12:07 PM EDT 11/13/2024 12:26 PM EDT Aaliyah Jha RUBEN LAB BLOOD ORDERABLES Final Re sult [facility]
[address] [place] [address], * (ABNORMAL) Reticulocytes (11/13/2024 12:07 PM EDT) Reticulocyte % 2.78(H) 0.70 - 1.90 % 11/13/2024 12:32 PM EDT [facility] Reticulocyte Absolute 0.1081 0.0200 - 0.1300 10*6/mm3 11/13/2024 12:32 PM EDT [facility] Blood Venipuncture / Unknown 11/13/2024 12:07 PM EDT 11/13/2024 12:26 PM EDT Aaliyah Jha RUBEN LAB BLOOD ORDERABLES Final Re sult Performing Organization Address [facility]/ZIP Co de Phone Number [facility]
[address] [place] [address], * TSH (11/13/2024 12:07 PM EDT) TSH 2.770 0.270 - 4.200 uIU/mL 11/13/2024 12:56 PM EDT [facility] Blood Venipuncture / Unknown 11/13/2024 12:07 PM EDT 11/13/2024 12:26 PM EDT Aaliyah Jha RUBEN LAB BLOOD ORDERABLES Final Re sult Performing Organization Address City/[facility]/ZIP Co de Phone Number [facility]
[address] [place] [address], * Magnesium (11/13/2024 12:07 PM EDT) Only the most recent of2 resultswithin the time period is included. Magnesium 1.9 1.6 - 2.4 mg/dL 11/13/2024 12:56 PM EDT [facility] Blood Venipuncture / Unknown 11/13/2024 12:07 PM EDT 11/13/2024 12:26 PM EDT Aaliyah Jha APRN LAB BLOOD ORDERABLES Final Re sult Performing Organization Address [facility] Co de Phone Number [facility]
[address] [place] [address], * (ABNORMAL) Hemoglobin A1c (11/13/2024 12:07 PM EDT) Pathologist [facility] Hemoglobin A1C 5.84(H) 4.80 - 5.60 % 11/13/2024 1:23 PM EDT [facility] Blood Venipuncture / Unknown 11/13/2024 12:07 PM EDT 11/13/2024 12:26 PM EDT Narrative [facility] - 11/13/2024 1:23 PM EDT Hemoglobin A1C Ranges: Increased Risk for Diabetes 5.7% to 6.4% Diabetes >= 6.5% Diabetic Goal < 7.0% us Aaliyah Jha APRN LAB BLOOD ORDERABLES Final Re sult Performing Organization Address [facility] Co de Phone Number [facility]
[address] [place] [address], * Folate RBC (11/13/2024 12:07 PM EDT) Folate, Hemolysate 538.0 Not Estab. ng/mL 11/16/2024 9:09 AM EDT [facility] Hematocrit 40.7 34.0 - 46.6 % 11/16/2024 9:09 AM EDT [facility] RBC Folate 1322 >498 ng/mL 11/16/2024 9:09 AM EDT [facility] Blood Venipuncture / Unknown 11/13/2024 12:07 PM EDT 11/13/2024 12:26 PM EDT [facility]ative [facility] 11/16/2024 9:09 AM EDT Performed at: 01 - [facility] [address] [place], [place] [id number] Trip Motor Operator: Gomez Crooks PhD, Phone: [phone] us Aaliyah Jha APRN LAB BLOOD ORDERABLES Edited R esult - Final [facility] [address] [place] [address], [place] [phone] * (ABNORMAL) Basic Metabolic Panel (11/13/2024 12:07 PM EDT) Pathologist [facility] Glucose 100(H) 65 - 99 mg/dL 11/13/2024 12:56 PM EDT [facility] BUN 19.7 8.0 - 23.0 mg/dL 11/13/2024 12:56 PM EDT [facility] Creatinine 0.93 0.57 - 1.00 mg/dL 11/13/2024 12:56 PM EDT [facility] Sodium 143 136 - 145 mmol/L 11/13/2024 12:56 PM EDT [facility] Potassium 3.8 3.5 - 5.2 mmol/L 11/13/2024 12:56 PM EDT [facility] Chloride 102 98 - 107 mmol/L 11/13/2024 12:56 PM EDT [facility] CO2 31.1(H) 22.0 - 29.0 mmol/L 11/13/2024 12:56 PM EDT [facility] Calcium 8.6 8.6 - 10.5 mg/dL 11/13/2024 12:56 PM EDT [facility] BUN/Creatinine Ratio 21.2 7.0 - 25.0 11/13/2024 12:56 PM EDT [facility] Anion Gap 9.9 5.0 - 15.0 mmol/L 11/13/2024 12:56 PM EDT [facility] eGFR 67.9 >60.0 mL/min/1.7 3 11/13/2024 12:56 PM EDT [facility] Blood Venipuncture / Unknown 11/13/2024 12:07 PM EDT 11/13/2024 12:26 PM EDT Narrative [facility] - 11/13/2024 12:56 PM EDT GFR [...] include race as a factor Aaliyah Jha ENGINEERING GROUP MANAGER LAB BLOOD ORDERABLES Final Re sult [facility]
[address] [place] [address], * Duplex Venous Lower Extremity - Bilateral [...] of2 resultswithin the time period is included. [facility] QT Interval 410 ms ECG QTC Interval [...] change was found Confirmed by ABDULLAHI HENDRICKSON ([id number]) on 11/13/2024 7:39:07 PM Referred By: Confirmed [...] change was found Confirmed by ABDULLAHI HENDRICKSON ([id number]) on 11/13/2024 7:39:07 PM Referred By: Confirmed By: ABDULLAHI HENDRICKSON Aaliyah Jha APRN ECG ORDERABLES Final Result ECG * Respiratory Panel PCR w/COVID-19(SARS-CoV-2) SIDRA/CHECO/SAUD/PAD/COR/ERIC In-House, FILM MASKER Swab in UTM/VTM, 2 HR TAT - Swab, Nasopharynx (11/13/2024 3:26 AM EDT) ADENOVIRUS, PCR Not Detected Not Detected [facility] 11/13/2024 4:48 AM EDT [facility] Coronavirus 229E Not Detected Not Detected [facility] 11/13/2024 4:48 AM EDT [facility] Coronavirus HKU1 Not Detected Not Detected [facility] 11/13/2024 4:48 AM EDT [facility] Coronavirus NL63 Not Detected Not Detected [facility] 11/13/2024 4:48 AM EDT [facility] Coronavirus OC43 Not Detected Not Detected [facility] 11/13/2024 4:48 AM EDT [facility] COVID19 Not Detected Not Detected - Ref. Range [facility] 11/13/2024 4:48 AM EDT [facility] Human Metapneumovirus Not Detected Not Detected [facility] 11/13/2024 4:48 AM EDT [facility] Human Rhinovirus/Enterov irus Not Detected Not Detected [facility] 11/13/2024 4:48 AM EDT [facility] Influenza A PCR Not Detected Not Detected [facility] 11/13/2024 4:48 AM EDT [facility] Influenza B PCR Not Detected Not Detected [facility] 11/13/2024 4:48 AM EDT [facility] Parainfluenza Virus 1 Not Detected Not Detected [facility] 11/13/2024 4:48 AM EDT [facility] Parainfluenza Virus 2 Not Detected Not Detected [facility] 11/13/2024 4:48 AM EDT [facility] Parainfluenza Virus 3 Not Detected Not Detected [facility] 11/13/2024 4:48 AM EDT [facility] Parainfluenza Virus 4 Not Detected Not Detected [facility] 11/13/2024 4:48 AM EDT [facility] RSV, PCR Not Detected Not Detected [facility] 11/13/2024 4:48 AM EDT [facility] Bordetella pertussis pcr Not Detected Not Detected [facility] 11/13/2024 4:48 AM EDT [facility] Bordetella parapertussis PCR Not Detected Not Detected [facility] 11/13/2024 4:48 AM EDT [facility] Chlamydophila pneumoniae PCR Not Detected Not Detected [facility] 11/13/2024 4:48 AM EDT [facility] Mycoplasma pneumo by PCR Not Detected Not Detected [facility] 11/13/2024 4:48 AM EDT [facility] Swab Nasopharyngeal structure / Unknown Collection / Unknown 11/13/2024 3:26 AM EDT 11/13/2024 4:00 AM EDT Narrative [facility] - 11/13/2024 4:48 AM EDT In [...] ORDERA BLES Final Result [facility]
[address] [place] [address], * (ABNORMAL) Blood Gas, Venous With Co-Ox (11/12/2024 11:16 PM EDT) Site Nurse/Dr Stew 11/12/2024 11:17 PM EDT [facility] THERAP[facility] pH, Venous 7.337 7.310 - 7.410 pH Units 11/12/2024 11:17 PM EDT [facility]ER[facility] pCO2, Venous 59.6(H) 41.0 - 51.0 mm Hg 11/12/2024 11:17 PM EDT [facility] Comment:83 Value above refer ence range pO2, Venous 30.4 27.0 - 53.0 mm Hg 11/12/2024 11:17 PM EDT [facility]ER[facility] HCO3, Venous 31.9(H) 22.0 - 28.0 mmol/L 11/12/2024 11:17 PM EDT [facility]ER[facility] Base Excess, Venous 5.0(H) -2.0 - 2.0 mmol/L 11/12/2024 11:17 PM EDT [facility] Hemoglobin, Blood Gas 9.3(L) 14 - 18 g/dL 11/12/2024 11:17 PM EDT [facility] Oxyhemoglobin Venous 48.3 % 06/2024 11:17 PM EDT [facility] Methemoglobin Venous 0.4 % 06/2024 11:17 PM EDT [facility] Carboxyhemoglobin Venous 1.7 % 11/12/2024 11:17 PM EDT [facility] CO2 Content 33.7(H) 22 - 33 mmol/L 11/12/2024 11:17 PM EDT [facility] Temperature 37.0 11/12/2024 11:17 PM EDT [facility] Barometric Pressure for Blood Gas 11/12/2024 11:17 PM EDT [facility] Comment:N/A Modality Nasal Cannula 11/12/2024 11:17 PM EDT [facility] FIO2 28 % 11/12/2024 11:17 PM EDT [facility] Rate 0 Breaths/ minute 11/12/2024 11:17 PM EDT [facility] PIP 0 cmH2O 11/12/2024 11:17 PM EDT [facility] Comment:Meter: [id number] Installer Soft Top: [id number] IPAP 0 11/12/2024 11:17 PM EDT [facility] EPAP 0 11/12/2024 11:17 PM EDT [facility]ER[facility] Venous Blood 11/12/2024 11:1 6 PM EDT 11/12/2024 11:16 PM EDT us Logan Araujo MD LAB BLOOD ORDERABLES Fin al Result [facility]ER[facility]
[address] [place] [address], * CT Angiogram Chest Pulmonary Embolism (11/12/2024 7:46 PM EDT) Anatomical Region Laterality Modality Chest N/A Computed Tomogra phy 11/12/2024 8:22 PM EDT Impressions 11/12/2024 8:31 PM EDT No evidence of pulmonary embolus. No acute abnormality. Electronically Signed: Jed Machuca MD 11/12/2024 8:31 PM EDT Workstation ID: [id number] Narrative 11/12/2024 8:[address] ANGIOGRAM [...] MD 11/12/2024 8:31 PM EDT Workstation ID: [id number] Logan Araujo MD IMG CT ORDERABLES Final Result * COVID-19, FLU A/B, RSV PCR 1 HR TAT - Swab, Nasopharynx (11/12/2024 7:21 PM EDT) Pathologist [facility] COVID19 Not Detected Not Detected - Ref. Range CEPHEID GENEXPERT 11/12/2024 8:24 PM EDT [facility] Influenza A PCR Not Detected Not Detected CEPHEID GENEXPERT 11/12/2024 8:24 PM EDT [facility] Influenza B PCR Not Detected Not Detected CEPHEID GENEXPERT 11/12/2024 8:24 PM EDT [facility] RSV, PCR Not Detected Not Detected CEPHEID GENEXPERT 11/12/2024 8:24 PM EDT [facility] Swab Nasopharyngeal structure / Unknown Collection / Unknown 11/12/2024 7:21 PM EDT 11/12/2024 7:46 PM EDT Logan Araujo MD MICROBIOLOGY - GENERAL O RDERABLES Final Result [facility]
[address] [place] [address], * (ABNORMAL) Urinalysis, Microscopic Only - Urine, Clean Catch (11/12/2024 7:20 PM EDT) Pathologist [facility] RBC, UA 0-2 None Seen, 0-2 /HPF 11/12/2024 8:00 PM EDT [facility] WBC, UA 11-20(A) None Seen, 0-2 /HPF 11/12/2024 8:00 PM EDT [facility] Bacteria, UA None Seen None Seen /HPF 11/12/2024 8:00 PM EDT [facility] Squamous Epithelial Cells, UA 3-6(A) None Seen, 0-2 /HPF 11/12/2024 8:00 PM EDT [facility] Hyaline Casts, UA 0-2 None Seen /LPF 11/12/2024 8:00 PM EDT [facility] Methodology Automated Microscopy 11/12/2024 8:00 PM EDT [facility] Urine Urine specimen obtained by clean catch procedure / Unknown Collection / Unknown 11/12/2024 7:20 PM EDT 11/12/2024 7:46 PM EDT us Logan Araujo MD URINE ORDERABLES Final R esult [facility]
[id number] [place] [address], * (ABNORMAL) Urinalysis With Microscopic If Indicated (No Culture) - Urine, Clean Catch (11/12/2024 7:20 PM EDT) Color, UA Yellow Yellow, Straw 11/12/2024 8:00 PM EDT [facility] Appearance, UA Clear Clear 11/12/2024 8:00 PM EDT [facility] pH, UA 5.5 5.0 - 8.0 11/12/2024 8:00 PM EDT [facility] Specific [place], UA >1.030(H) 1.005 - 1.030 11/12/2024 8:00 PM EDT [facility] Glucose, UA Negative Negative 11/12/2024 8:00 PM EDT [facility] Ketones, UA Negative Negative 11/12/2024 8:00 PM EDT [facility] Bilirubin, UA Negative Negative 11/12/2024 8:00 PM EDT [facility] Blood, UA Negative Negative 11/12/2024 8:00 PM EDT [facility] Protein, UA Trace(A) Negative [facility] Leuk Esterase, UA Small (1+)(A) Negative 11/12/2024 8:00 PM EDT [facility] Nitrite, UA Negative Negative 11/12/2024 8:00 PM EDT [facility] Urobilinogen, UA 1.0 E.U./dL 0.2 - 1.0 E.U./dL 11/12/2024 8:00 PM EDT [facility] Urine Urine specimen obtained by clean catch procedure / Unknown Collection / Unknown 11/12/2024 7:20 PM EDT 11/12/2024 7:46 PM EDT Logan Araujo MD URINE ORDERABLES Final R esult Performing Organization Address City/[facility]/ZIP Co de Phone Number [facility]
[address] [place] [address], * Sodium, Urine, Random - Urine, Clean Catch (11/12/2024 7:20 PM EDT) Sodium, Urine <20 mmol/L 11/13/2024 3:37 AM EDT [facility] Urine Urine specimen obtained by clean catch procedure / Unknown Collection / Unknown 11/12/2024 7:20 PM EDT 11/12/2024 7:46 PM EDT Narrative [facility] - 11/13/2024 3:37 AM EDT Reference intervals for random urine have not been established. Clinical usage is dependent upon physician's interpretation in combination with other laboratory tests. Aaliyah Jha APRN URINE ORDERABLES Final Result Performing Organization Address [facility]/ZIP Co de Phone Number [facility]
[address] [place] [address], * Osmolality, Urine - Urine, Clean Catch (11/12/2024 7:20 PM EDT) Osmolality, Urine 837 300 - 1,100 mOsm/kg 11/13/2024 4:00 AM EDT [facility] Urine Urine specimen obtained by clean catch procedure / Unknown Collection / Unknown 11/12/2024 7:20 PM EDT 11/12/2024 7:46 PM EDT Aaliyah Jha RUBEN URINE ORDERABLES Final Result Performing Organization Address [facility] Phone Number [facility]
[address] [place] [address], * Creatinine Urine Random (kidney function) GFR component - Urine, Clean Catch (11/12/2024 7:20 PM EDT) Creatinine, Urine 276.6 mg/dL 11/13/2024 9:46 AM EDT [facility] Urine Urine specimen obtained by clean catch procedure / Unknown Collection / Unknown 11/12/2024 7:20 PM EDT 11/13/2024 3:13 AM EDT Narrative [facility] - 11/13/2024 9:46 AM EDT Reference intervals for random urine have not been established. Clinical usage is dependent upon physician's interpretation in combination with other laboratory tests. Aaliyah Jha APRN URINE ORDERABLES Final Result Performing Organization Address [facility] Co de Phone Number [facility]
[address] [place] [address], * Urine Culture - Urine, Urine, Clean Catch (11/12/2024 7:20 PM EDT) Urine Culture No growth YUMIKO 11/14/2024 12:26 PM EDT [facility] Urine Urine specimen obtained by clean catch procedure / Unknown Collection / Unknown 11/12/2024 7:20 PM EDT 11/13/2024 12:57 AM EDT Logan Araujo MD MICROBIOLOGY - GENERAL O RDERABLES Final Result Performing Organization Address [facility] Co de Phone Number [facility]
[address] [place] [address], [place] [phone] * (ABNORMAL) High Sensitivity Troponin T 1Hr (11/12/2024 7:16 PM EDT) HS Troponin T 16(H) <14 ng/L 11/12/2024 7:53 PM EDT [facility] Troponin T Numeric Delta -1 ng/L 11/12/2024 7:53 PM EDT [facility] Troponin T % Delta -6 Abnormal if >/= 20% 11/12/2024 7:53 PM EDT [facility] Blood Line / Unknown 11/12/2024 7: 16 PM EDT 11/12/2024 7:20 PM EDT [facility] - 11/12/2024 7:53 PM [...] ORDERABLES Fin al Result Performing Organization Address [facility]/ZIP Co de Phone Number [facility]
[address] [place] [address], [place] [phone] * (ABNORMAL) Iron Profile w/o Ferritin (11/12/2024 7:16 PM EDT) Iron 21(L) 37 - 145 mcg/dL 11/13/2024 3:24 AM EDT [facility] Iron Saturation (TSAT) 4(L) 20 - 50 % 11/13/2024 3:24 AM EDT [facility] Transferrin 321 200 - 360 mg/dL 11/13/2024 3:24 AM EDT [facility] TIBC 478 298 - 536 mcg/dL 11/13/2024 3:24 AM EDT [facility] Blood Venipuncture / Unknown 11/12/2024 7:16 PM EDT 11/13/2024 2:57 AM EDT Aaliyah Jha RUBEN LAB BLOOD ORDERABLES Final Re sult Performing Organization Address [facility] de Phone Number [facility]
[address] [place] [address], [place] [phone] * Ferritin (11/12/2024 7:16 PM EDT) Ferritin 13.80 13.00 - 150.00 ng/mL 11/13/2024 3:24 AM EDT [facility] Blood Venipuncture / Unknown 11/12/2024 7:16 PM EDT 11/13/2024 2:57 AM EDT Narrative [facility] - 11/13/2024 3:24 AM EDT Results may be falsely decreased if patient taking Biotin. Aaliyah Jha RUBEN LAB BLOOD ORDERABLES Final Re sult Performing Organization Address [facility] de Phone Number [facility]
[address] [place] [address], [place] [phone] * XR Chest 1 View (11/12/2024 6:30 PM EDT) Anatomical Region Laterality Modality Body N/A Radiographic Tatyana ging 11/12/2024 7:00 PM EDT Impressions 11/12/2024 7:02 PM EDT Impression: 1. No acute cardiopulmonary disease. Electronically Signed: Arben Neely MD 11/12/2024 7:02 PM EDT Workstation ID: [id number] Narrative 11/12/2024 7:02 PM EDT XR CHEST [...] MD 11/12/2024 7:02 PM EDT Workstation ID: [id number] Logan Araujo MD IMG DIAGNOSTIC IMAGING O RDERABLES Final Result * Castellano Top (11/12/2024 5:17 PM EDT) Extra Tube Hold for add-ons. 11/12/2024 5:32 PM EDT [facility] Comment:Auto resulted. Blood Venipuncture / Unknown 11/12/2024 5:17 PM EDT 11/12/2024 5:17 PM EDT Logan Araujo MD LAB BLOOD ORDER ONLY Fin al Result [facility]
[address] [place] [address], * TSH Rfx On Abnormal To Free T4 (11/12/2024 5:17 PM EDT) TSH 2.480 0.270 - 4.200 uIU/mL 11/12/2024 5:51 PM EDT [facility] Blood Venipuncture / Unknown 11/12/2024 5:17 PM EDT 11/12/2024 5:17 PM EDT Logan Araujo MD LAB BLOOD ORDERABLES Fin al Result Performing Organization Address City/[facility]/ZIP Co de Phone Number [facility]
[address] [place] [address], * Gold Top - SST (11/12/2024 5:17 PM EDT) Extra Tube Hold for add-ons. 11/12/2024 5:32 PM EDT [facility] Comment:Auto resulted. Blood Venipuncture / Unknown 11/12/2024 5:17 PM EDT 11/12/2024 5:17 PM EDT Logan Araujo MD LAB BLOOD ORDER ONLY Fin al Result Performing Organization Address [facility] Co de Phone Number [facility]
[address] [place] [address], * Green Top (Gel) (11/12/2024 5:17 PM EDT) Extra Tube Hold for add-ons. 11/12/2024 5:31 PM EDT [facility] Comment:Auto resulted. Blood Venipuncture / Unknown 11/12/2024 5:17 PM EDT 11/12/2024 5:17 PM EDT Logan Araujo MD LAB BLOOD ORDER ONLY Fin al Result Performing Organization Address City/[facility]/ZIP Co de Phone Number [facility]
[address] [place] [address], * Scan Slide (11/12/2024 5:17 PM EDT) Anisocytosis Slight/1+ None Seen 11/12/2024 6:07 PM EDT [facility] Hypochromia Slight/1+ None Seen 11/12/2024 6:07 PM EDT [facility] Microcytes Mod/2+ None Seen 11/12/2024 6:07 PM EDT [facility] WBC Morphology Normal Normal 11/12/2024 6:07 PM EDT [facility] Platelet Morphology Normal Normal 11/12/2024 6:07 PM EDT [facility] Blood Venipuncture / Unknown 11/12/2024 5:17 PM EDT 11/12/2024 5:17 PM EDT Logan Araujo MD LAB BLOOD ORDERABLES Fin al Result Performing Organization Address City/[facility]/ZIP Co de Phone Number [facility]
[address] [place] [address], * Lavender Top (11/12/2024 5:17 PM EDT) Extra Tube hold for add-on 11/12/2024 5:31 PM EDT [facility] Comment:Auto resulted Blood Venipuncture / Unknown 11/12/2024 5:17 PM EDT 11/12/2024 5:17 PM EDT Logan Araujo MD LAB BLOOD ORDER ONLY Fin al Result Performing Organization Address City/[facility]/ZIP Co de Phone Number [facility]
[address] [place] [address], [place] [phone] * Light Blue Top (11/12/2024 5:17 PM EDT) Extra Tube Hold for add-ons. 11/12/2024 5:31 PM EDT [facility] Comment:Auto resulted Blood Venipuncture / Unknown 11/12/2024 5:17 PM EDT 11/12/2024 5:17 PM EDT Logan Araujo MD LAB BLOOD ORDER ONLY Fin al Result Performing Organization Address City/[facility]/ZIP Co de Phone Number [facility]
[address] [place] [address], * (ABNORMAL) High Sensitivity Troponin T (11/12/2024 5:17 PM EDT) [facility] HS Troponin T 17(H) <14 ng/L 11/12/2024 5:51 PM EDT [facility] Blood Venipuncture / Unknown 11/12/2024 5:17 PM EDT 11/12/2024 5:17 PM EDT [facility] - 11/12/2024 5:51 PM [...] ORDERABLES Fin al Result Performing Organization Address [facility]/ZIP Co de Phone Number [facility]
[address] [place] [address], * (ABNORMAL) D-dimer, Quantitative (11/12/2024 5:17 PM EDT) [facility] D-Dimer, Quantitative 10.36(H) 0.00 - 0.66 MCGFEU/mL 11/12/2024 6:00 PM EDT [facility] Blood Venipuncture / Unknown 11/12/2024 5:17 PM EDT 11/12/2024 5:17 PM EDT [facility] - 11/12/2024 6:00 PM EDT According to the assay line service technician's published package insert, a normal (<0.50 MCGFEU/mL) D-dimer result in conjunction with a non-high clinical probability assessment, excludes deep vein thrombosis (DVT) and pulmonary embolism (PE) with high sensitivity. D-dimer values increase with age and this can make VTE exclusion of an older population difficult. To address this, the [employer], based on best available [...] 78 year old 0.80 MCGFEU/mL. us Logan Aruajo MD LAB BLOOD ORDERABLES Fin al Result Performing Organization Address City/[facility]/ZIP Co de Phone Number [facility]
[address] [place] [address], * Phosphorus (11/12/2024 5:17 PM EDT) Phosphorus 4.1 2.5 - 4.5 mg/dL 11/12/2024 5:51 PM EDT [facility] Blood Venipuncture / Unknown 11/12/2024 5:17 PM EDT 11/12/2024 5:17 PM EDT Logan Araujo MD LAB BLOOD ORDERABLES Fin al Result [facility]
[address] [place] [address], * BNP (11/12/2024 5:17 PM EDT) proBNP 247.0 0.0 - 900.0 pg/mL 11/12/2024 5:51 PM EDT [facility] Blood Venipuncture / Unknown 11/12/2024 5:17 PM EDT 11/12/2024 5:17 PM EDT Narrative [facility] - 11/12/2024 5:51 PM EDT This [...] ORDERABLES Fin al Result Performing Organization Address [facility] de Phone Number [facility]
[address] [place] [address], [place] [phone] * Lipase (11/12/2024 5:17 PM EDT) Lipase 20 13 - 60 U/L 11/12/2024 5:51 PM EDT [facility] Blood Venipuncture / Unknown 11/12/2024 5:17 PM EDT 11/12/2024 5:17 PM EDT Logan Araujo MD LAB BLOOD ORDERABLES Fin al Result Performing Organization Address [facility] de Phone Number [facility]
[address] [place] [address], [place] [phone] * Lactic Acid, Plasma (11/12/2024 5:17 PM EDT) Lactate 1.6 0.5 - 2.0 mmol/L 11/12/2024 5:49 PM EDT [facility] Comment:Falsely depressed re sults may occur on samples drawn from patients receiving N-Acetylcysteine (NAC) or Metamizole. Blood Venipuncture / Unknown 11/12/2024 5:17 PM EDT 11/12/2024 5:17 PM EDT Logan Araujo MD LAB BLOOD ORDERABLES Fin al Result [facility]
[address] [place] [address], * Folate (11/12/2024 5:17 PM EDT) Folate >20.00 4.78 - 24.20 ng/mL 11/13/2024 9:54 AM EDT [facility] Blood Venipuncture / Unknown 11/12/2024 5:17 PM EDT 11/13/2024 2:59 AM EDT Narrative [facility] - 11/13/2024 9:54 AM EDT Results may be falsely increased if patient taking Biotin. Aaliyha Jha APRN LAB BLOOD ORDERABLES Final Re sult Performing Organization Address [facility]/ZIP Co de Phone Number [facility]
[address] [place] [address], * (ABNORMAL) Vitamin B12 (11/12/2024 5:17 PM EDT) Vitamin B-12 1,669(H) 211 - 946 pg/mL 11/13/2024 9:54 AM EDT [facility] Blood Venipuncture / Unknown 11/12/2024 5:17 PM EDT 11/13/2024 2:59 AM EDT Narrative [facility] - 11/13/2024 9:54 AM EDT Results may be falsely increased if patient taking Biotin. Aaliyah Jha APRN LAB BLOOD ORDERABLES Final Re sult [facility]
[address] [place] [address], [place] [phone] * (ABNORMAL) Comprehensive Metabolic Panel (11/12/2024 5:17 PM EDT) [facility] Glucose 96 65 - 99 mg/dL 11/12/2024 5:51 PM EDT [facility] BUN 24.7(H) 8.0 - 23.0 mg/dL 11/12/2024 5:51 PM EDT [facility] Creatinine 1.06(H) 0.57 - 1.00 mg/dL 11/12/2024 5:51 PM EDT [facility] Sodium 139 136 - 145 mmol/L 11/12/2024 5:51 PM EDT [facility] Potassium 4.4 3.5 - 5.2 mmol/L 11/12/2024 5:51 PM EDT [facility] Chloride 101 98 - 107 mmol/L 11/12/2024 5:51 PM EDT [facility] CO2 27.9 22.0 - 29.0 mmol/L 11/12/2024 5:51 PM EDT [facility] Calcium 9.1 8.6 - 10.5 mg/dL 11/12/2024 5:51 PM EDT [facility] Total Protein 6.4 6.0 - 8.5 g/dL 11/12/2024 5:51 PM EDT [facility] Albumin 4.0 3.5 - 5.2 g/dL 11/12/2024 5:51 PM EDT [facility] ALT (SGPT) 15 1 - 33 U/L 11/12/2024 5:51 PM EDT [facility] AST (SGOT) 27 1 - 32 U/L 11/12/2024 5:51 PM EDT [facility] Alkaline Phosphatase 113 39 - 117 U/L 11/12/2024 5:51 PM EDT [facility] Total Bilirubin 0.2 0.0 - 1.2 mg/dL 11/12/2024 5:51 PM EDT [facility] Globulin 2.4 gm/dL 11/12/2024 5:51 PM EDT [facility] Comment:Calculated Result A/G Ratio 1.7 g/dL 11/12/2024 5:51 PM EDT [facility] BUN/Creatinine Ratio 23.3 7.0 - 25.0 11/12/2024 5:51 PM EDT [facility] Anion Gap 10.1 5.0 - 15.0 mmol/L 11/12/2024 5:51 PM EDT [facility] eGFR 58.1(L) >60.0 mL/min/1.7 3 11/12/2024 5:51 PM EDT [facility] Blood Venipuncture / Unknown 11/12/2024 5:17 PM EDT 11/12/2024 5:17 PM EDT Narrative [facility] - 11/12/2024 5:51 PM EDT GFR [...] ORDERABLES Fin al Result [facility]
[address] [place] [address], * Mammo screening digital tomosynthesis bilateral (04/06/2015 [...] in patients with adenosis or dense breasts. [employer] For breast cancer detection in asymptomatic women- Age ACR Recommendations 35-40 Baseline Mammogram 40-49 Annual or Biannual Mammogram 50+ Annual Mammogram Annual physical and frequent self breast examination. Patient has been entered into an automatic reminder system. Addendum Reading Radiologist- DIYA GOEL Addendum Releasing Radiologist- DIYA GOEL Addendum Released Date Time- 04/19/15 6340 Addendum Laser Engineer- Jaylen BILATERAL SCREENING MAMMOGRAM WITH TOMOSYNTHESIS PNL- [...] in patients with adenosis or dense breasts. [employer] For breast cancer detection in asymptomatic women- Age ACR Recommendations 35-40 Baseline Mammogram 40-49 Annual or Biannual Mammogram 50+ Annual Mammogram Annual physical and frequent self breast examination. Patient has been entered into an automatic reminder system. Reading Akash GOEL Releasing Akash GOEL Released Date Time- 04/06/15 1055 Fernando Acosta Procedure Note Diya Goel Jr., MD - [...] in patients with adenosis or dense breasts. [employer] For breast cancer detection in asymptomatic women- Age ACR Recommendations 35-40 Baseline Mammogram 40-49 Annual or Biannual Mammogram 50+ Annual Mammogram Annual physical and frequent self breast examination. Patient has been entered into an automatic reminder system. Addendum Reading RadiologistAndre GOEL Addendum Releasing SharAndre Romero KULDEEP Addendum Released Date Time- 04/19/15 1550 Addendum Laser EngineerAndre York BILATERAL SCREENING MAMMOGRAM WITH TOMOSYNTHESIS PNL- CLINICAL [...] in patients with adenosis or dense breasts. [employer] For breast cancer detection in asymptomatic women- Age ACR Recommendations 35-40 Baseline Mammogram 40-49 Annual or Biannual Mammogram 50+ Annual Mammogram Annual physical and frequent self breast examination. Patient has been entered into an automatic reminder system. Reading Radiologist- DIYA GOEL Releasing Radiologist- DIYA GOEL Released Date Time- 04/06/15 1055 Laser Engineer- C.B. Gregorio Mcgee MD [facility] [place] ORDERABLES Edite d Result - Final from Last 3 Months or Most Recently Relevant to Health Maintenance Insurance [facility] MEDICARE A & B Advance Directives * CPR (Attempt to Resuscitate) (Latest Code Status on File) Date Activated Date Inactivated Comments 11/13/2024 2:01 AM 11/14/2024 6:43 PM Question Answer Comments Code Status (Patient has no pulse and is not breathing): CPR (Attempt to Resuscitate) Medical Interventions (Patie nt has pulse or is breathing): Full Support Care Teams Housekeeper Nanny Relationship Specialty Start Date End Date Sandra Orozco APRN [address] [place] [address] SANDER BERMUDEZ [id number] PCP - General Internal Medicine 05/11/24
--- OUTSIDE RECORDS SUMMARY | 2024-12-30 11:06 | XMS_ITS | Encounter Summary ---
Author Organization [facility] ystem Address [address] [place] [address] Care Team Providers Care Dietetics Teacher Name Role Phone Sandra Orozco APRN Primary Care Provider [phone] Encounter Details Date Type Department Care Team (Late st Contact Info) Description 11/30/2024 Readmission Management [facility] [address] [place] [address] Christiano Gresham, RN Social History Tobacco Use Types Packs/Day Years Used Date Smoking Tobacco: Former Cigarettes 2 45 Q uit: 05/10/2023 Smokeless Tobacco: Never Comments:Liked to smoke Alcohol Use Standard Drinks/Week Comments Not Currently 0 (1 standard drink = 0.6 oz pur e alcohol) former [facility] Utilities Answer Date Recorded In the past 12 months has [employer], gas, oil, or water [employer] threatened to shut off services in [...] care, and heating? Not very hard 11/13/2024 [facility] Questionnaire Answer Date [...] Responses [facility] Does the patient have one of the following disease processes/diagnoses(primary or secondary)? CHF CHF Week 1 attempt successful? No Unsuccessful attempts Attempt 2 Christiano Romero - Registered Nurse documented in this encounter Plan of Treatment Upcoming Encounters Date Type Department Care Team (Late st Contact Info) Description 02/16/2025 11:00 AM EST Office Visit [facility] [address] [facility] [address] [place] [address] Dina Solano APRN [address] [facility] [address] [place] [address] documented as of this encounter Visit Diagnoses Not on filedocumented in this encounter Care Teams Dietetics Teacher Relationship Specialty Start Date End Date Sandra Orozco APRN [address] [address] PCP - General Internal Medicine 05/11/24 documented as of this encounter
--- OUTSIDE RECORDS SUMMARY | 2024-12-30 11:06 | XMS_ITS | Encounter Summary ---
Author Organization [facility] ystem Address [address] [place] [address] Care Team Providers Care Emergency Medicine Medical Director Name Role Phone Sandra Orozco APRN Primary Care Provider [phone] Encounter Details Date Type Department Care Team (Late st Contact Info) Description 11/16/2024 Readmission Management [facility] [address] [place] [address] Omaira Knapp RN Social History Tobacco Use Types Packs/Day Years Used Date Smoking Tobacco: Former Cigarettes Smokeless Tobacco: Never Comments:Smoked since 1973 Alcohol Use Standard Drinks/Week Comments Not Currently 0 (1 standard drink = 0.6 oz pur e alcohol) former [facility] Utilities Answer Date Recorded In the past 12 months has [employer], gas, oil, or water [employer] threatened to shut off services in your [...] care, and heating? Not very hard 11/13/2024 [facility] - [...] GED or equivalent No 11/13/2024 Preferred Language Liberian 11/13/2024 PHQ-2 Answer Date Recorded Patient Health [...] AM EDT Prep Survey Flowsheet Row Responses [facility] patient discharged from? [place] Is LACE score less than 10 ? [...] Description 02/16/2025 11:00 AM EST Office Visit [facility] CARDI[facility] [address] [facility] [address] [place] [address] Dina Solano APRN [address] [facility] [address] [place] [address] documented as of this encounter Visit Diagnoses Not on filedocumented in this encounter Care Teams Emergency Medicine Medical Director Relationship Specialty Start Date End Date Sandra Orozco APRN [address] [place] [address] [address] [place] [address] PCP - General Internal Medicine 05/11/24 documented as of this encounter
--- OUTSIDE RECORDS SUMMARY | 2024-12-30 11:06 | XMS_ITS | Encounter Summary ---
Author Organization [facility] ystem Address [address] [place] [address] Care Team Providers Care Thrasher Feeder Name Role Phone Sandra Orozco APRN Primary Care Provider [phone] Encounter Details Date Type Department Care Team (Late st Contact Info) Description 11/12/2024 Patient rounding ([facility] only) [facility] C[facility]IOLOG[facility] [address] [facility] [address], [place] [address] Dina Solano APRN [address] [facility] [address] [place] [address] Social History Tobacco Use Types Packs/Day Years Used Date Smoking Tobacco: Former Cigarettes Smokeless Tobacco: Never Comments:Smoked since 1973 Alcohol Use Standard Drinks/Week Comments Not Currently 0 (1 standard drink = 0.6 oz pur e alcohol) former [facility] Utilities Answer Date Recorded In the past 12 months has [employer] electric, gas, oil, or water company threatened [...] and heating? Not very hard 11/13/2024 [facility] [place] of Occupat ional Health - Occupational Stress [...] is Joaquina Sears, and I am the Cushion Mat Maker for [facility] Cardiology [place]. I would like to thank you for [...] with your visit with us as a [facility] facility? Over the next few days, you will be receiving a Patient Experience Survey. Please consider taking the survey, as it helps [facility] in improving their patient care. Thank you for taking the time to answer our questions today. I hope you have a good day. documented in this encounter Plan of Treatment Upcoming Encounters Date Type Department Care Team (Late st Contact Info) Description 02/16/2025 11:00 AM EST Office Visit [facility] C[facility] [address] [facility] [address] [place] [phone] Dina Solano APRN [address] [facility] [address] [place] [address] documented as of this encounter Visit Diagnoses Not on filedocumented in this encounter Care Teams Thrasher Feeder Relationship Specialty Start Date End Date Sandra Orozco APRN [facility] [address] [place] [address] PCP - General Internal Medicine 05/11/24 documented as of this encounter
--- OUTSIDE RECORDS SUMMARY | 2024-12-30 11:06 | XMS_ITS | Referral Summary ---
Author Organization [employer] ([place], [place], [place], [place]) Address [address] [place] [address] Care Team Providers Care Batter Out Name Role Phone OrozcoKrystenrafael MIRANDA Primary Care [...] your living situation today? I have a [facility] place to live 10/13/2023 Think about [...] Do you speak a language other than American at [facility]? No 10/13/2023 Do you [...] on file Medical Devices Implanted Type Area Contracting Specialist Device Identifier Shelf Expiration Date Model / Serial / Lot Sealant Durasl Spine 5ml [id number] - [id number] Implanted:Qty: 1 on 01/31/2022 by Emeka Fernández MD at [facility] IMPLANTS N/A: Back [employer] 07/09/2023 [id number] / / [id number] Cement Spinal Confidence 2839-10-000 - [id number] Implanted:Qty: 2 on 10/14/2023 at [facility] IMPLANTS N/A: Back J &J:DEPUY:DEPUY SPINE 06/08/2025 0 / / [id number] Insurance MEDICARE PART A B GENERIC COMMERCIAL Advance Directives For more information, please contact: [phone] Documents on File Type Date Recorded Patient Auto Carrier Driver Expl anation Advance Directives and Marixa g Will 01/31/2022 8:44 AM * Full Code (Latest Code Status on File) Date Activated Date Inactivated Comments 10/12/2023 11:08 PM 10/15/2023 6:49 PM * Full Code Date Activated Date Inactivated Comments 01/31/2022 5:41 PM 02/01/2022 4:50 PM Healthcare Agents on File Name Relationship Healthcare Agent [facility] p Communication Luis Cruz Son First Alternate Healthcare Decision-Maker Care Teams Batter Out Relationship Specialty Start Date End Date Sandra Orozco, PHYSICIAN ASSISTANT PRIMARY CARE [address] [place] [address] PCP - General Nurse Practitioner 01/24/22
--- OUTSIDE RECORDS SUMMARY | 2024-12-30 11:06 | XMS_ITS | Encounter Summary ---
Author Organization [facility] ystem Address [address] [place] [address] Care Team Providers Care Reception Name Role Phone Sandra Orozco APRN Primary Care Provider Encounter Details Date Type Department Care Team (Late st Contact Info) Description 11/10/2024 Telephone [facility] CARDIOLOGY [address] [facility] [address] [place] [phone] Christy Kirk MD [address] [facility] [address] [place] [address] Social History Tobacco Use Types Packs/Day Years [...] SOONER APT. SHE CAN BE REACHED AT [phone] documented in this encounter Plan of Treatment Upcoming Encounters Date Type Department Care Team (Late st Contact Info) Description 02/16/2025 11:00 AM EST Office Visit [facility] CARDIOLOGY [address] [facility] [address] [address] Kalin Solano APRN [address] [facility] [address], [place] [address] documented as of this encounter Visit Diagnoses Not on filedocumented in this encounter Care Teams Reception Relationship Specialty Start Date End Date Sandra Orozco APRN [facility]0 [address] [place] [address] PCP - General Internal Medicine 05/11/24 documented as of this encounter
--- OUTSIDE RECORDS SUMMARY | 2024-12-30 11:06 | XMS_ITS | Encounter Summary ---
[facility] Address [address] [place] [address] Care Team Providers Care Human Resources Operations Manager Name Role Phone Sandra Orozco APRN Primary Care Provider [phone] Encounter Details Date Type Department Care Team (Latest Contact Info) Description 11/12/2024 Travel Social History Tobacco Use Types Packs/Day Years Used Date Smoking Tobacco: Former Cigarettes Smokeless Tobacco: Never Comments:Smoked since 1973 Alcohol Use Standard Drinks/Week Comments Not Currently 0 (1 standard drink = 0.6 oz pur e alcohol) former [facility] Utilities Answer Date Recorded In the past [...] care, and heating? Not very hard 11/13/2024 [facility] [place] of Occupat ional Health - Occupational Stress [...] equivalent No 11/13/2024 Preferred Language Citizen Of [place] 11/13/2024 PHQ-2 Answer Date Recorded Patient Health [...] 4:43 PM EDT Minna Gamez, BERNICE * [place] Suicide Severity Rating Scale (Screener/Recent Self-Report) Question [...] Description 02/16/2025 11:00 AM EST Office Visit [facility] [address] [facility] [address], [place] [address] Dina Solano APRN [address] [facility] [address] [place] [address] documented as of this encounter Visit Diagnoses Not on filedocumented in this encounter Additional Health Concerns Infection Onset Date Last Indicated Resolved Time COVID Screen (preop/placement) 11/12/2024 11/12/2024 11/12/2024 8:24 PM EDT documented as of this encounter Care Teams Human Resources Operations Manager Relationship Specialty Start Date End Date Sandra Orozco APRN [address] [place] [address] PCP - General Internal Medicine 05/11/24 documented as of this encounter
--- OUTSIDE RECORDS SUMMARY | 2024-12-30 11:06 | XMS_ITS | Clinical Summary ---
Author Organization [facility] Address [address] [place] [address] Care Team Providers Care Dirt Shoveler Name Role Phone Adryan Cooper MD Primary Care Provider + [phone] Allergies Active Allergy Reactions Criticality Noted Date [...] tablet (5 mg). 05/28/2016 Active HYDROcodone-gudelia taminophen (Mulberry) 10-325 MG tablet 1 tablet (10 mg [...] 2) 2008 [facility]-Breast Cancer Screening 04/06/201703/12, 04/06/2015 [facility]-GLGAS-31 Vaccine ( season) 2024 01/20/2021, 06/16/2020 [facility]-Influenza [...] age to complete this topic [place] [address] COMBINED PRIORITY 1 CARD Care Teams Dirt Shoveler Relationship Specialty Start Date End Date Adryan Cooper MD [address] [place] [address] PCP - General 07/22/20
--- OUTSIDE RECORDS SUMMARY | 2024-12-30 11:07 | XMS_ITS | Encounter Summary ---
Author Organization [facility] ([place], [place], [place], [place]) Address [address] [place] [address] Care Team Providers Care Aluminizer Name Role Phone Sandra Orozco RUBEN Primary Care Provider Encounter Details Date Type Department Care Team (Late st Contact Info) Description 03/01/2020 Transcribed Document [place] [facility] [place] [address] ProviderAide MD [address] [place] [address] Social History Tobacco Use Types Packs/Day [...] Historical MD Derek - 03/01/2020 11:34 AM PLASTIC PRINTER DATE OF PROCEDURE: 03/01/2020 SURGEON: Noemi Mayfield [...] 18-gauge Tuohy needle was advanced by the gkah-bn-uxzcrppuhy technique under direct fluoroscopic guidance into the [...] visit and the patient has been afebrile. /[id number] Noemi [place] MD, JELANI Pain Certified DELILAH/ANTHONY / KR / MODL /[id number] documented in this encounter Plan of Treatment Not on file documented as of this encounter Visit Diagnoses Not on filedocumented in this encounter Care Teams Aluminizer Relationship Specialty Start Date End Date Sandra Orozco, INDIVIDUAL SMALL GROUP INSTRUCTOR [address] [place] [address] PCP - General Nurse Practitioner 01/24/22 documented as of this encounter
--- OUTSIDE RECORDS SUMMARY | 2024-12-30 11:07 | XMS_ITS | Clinical Summary ---
Author Organization [employer] ([place], [place], [place], [place]) Address [address] [place] [address] Care Team Providers Care Director Of Education Name Role Phone OrozcoKrysten randhawarafael MIRANDA Primary Care Provider [phone] Allergies Active Allergy Reactions Criticality Noted Date [...] your living situation today? I have a [facility] to live 10/13/2023 Think about the [...] Do you speak a language other than [place]an at [facility]? No 10/13/2023 Do you want help [...] 06/22/2009, 08/29/2001 Medical Devices Implanted Type Area Educational Programming Director Device Identifier Shelf Expiration Date Model / Serial / Lot Sealant Durasl Spine 5ml [id number] - [id number] Implanted:Qty: 1 on 01/31/2022 by Emeka Fernández MD at [facility] IMPLANTS N/A: Back [employer] 07/09/2023037839 / / [id number] Cement Spinal Confidence 2839-10-000 - [id number] Implanted:Qty: 2 on 10/14/2023 at [facility] IMPLANTS N/A: Back J &J:DEPUY:DEPUY SPINE 06/08/2025 0 [id number] Insurance MEDICARE PART A B GENERIC COMMERCIAL Advance Directives For more information, please contact: [phone] Documents on File Type Date Recorded Patient Rehabilitation Services Aide Expl anation Advance Directives and Livin g [...] Son First Alternate Healthcare Decision-Maker Care Teams Director Of Education Relationship Specialty Start Date End Date Sandra Orozco APRN [address] [place] [address] PCP - General Nurse Practitioner 01/24/22
--- OUTSIDE RECORDS SUMMARY | 2024-12-30 11:07 | XMS_ITS | Encounter Summary ---
Author Organization [facility] ystem Address [address] [place] [address] Care Team Providers Care Smoking Tobacco Cutter Operator Name Role Phone Sandra Orozco APRN Primary Care Provider [phone] Encounter Details Date Type Department Care Team (Late st Contact Info) Description 11/23/2024 Readmission Management [facility] [address] [place] [address] Eloise Farrar RN Social History Tobacco Use Types Packs/Day Years Used Date Smoking Tobacco: Former Cigarettes Smokeless Tobacco: Never Comments:Smoked since 1973 Alcohol Use Standard Drinks/Week Comments Not Currently 0 (1 standard drink = 0.6 oz pur e alcohol) former [facility] Utilities Answer Date Recorded In the past 12 months has [employer], gas, oil, or water [employer] threatened to shut off services in your [...] care, and heating? Not very hard 11/13/2024 [facility] of Occupat ional Health - Occupational Stress [...] GED or equivalent No 11/13/2024 Preferred Language Gambian 11/13/2024 PHQ-2 Answer Date Recorded Patient Health [...] CHF Week 1 Survey Flowsheet Row Responses [facility] patient discharged from? [place] Does the patient have one of the following disease processes/diagnoses(primary or secondary)? CHF CHF Week 1 attempt successful? No Unsuccessful attempts Attempt 1 ELOISE Cruz - Registered Nurse documented in this encounter Plan of Treatment Upcoming Encounters Date Type Department Care Team (Late st Contact Info) Description 02/16/2025 11:00 AM EST Office Visit [facility] CARDIOLOGY [address] [facility] [address] [place] [address] Dina Solano APRN 3000 [facility] [address] [place] [address] documented as of this encounter Visit Diagnoses Not on filedocumented in this encounter Care Teams Smoking Tobacco Cutter Operator Relationship Specialty Start Date End Date Sandra Orozco APRN [address] [facility] [address] [facility] [address] [place] [address] PCP - General Internal Medicine 05/11/24 documented as of this encounter
--- OUTSIDE RECORDS SUMMARY | 2024-12-30 11:07 | XMS_ITS | Encounter Summary ---
Author Organization [employer] ([place], [place], [place], [place]) Address [address] [place] [address] Care Team Providers Care Operations Manager Name Role Phone Sandra Orozco RUBEN Primary Care Provider Encounter Details Date Type Department Care Team (Late st Contact Info) Description 01/25/2020 Transcribed Document [facility] [address] [place] [address] ProviderAide MD [address] [place] [address] Social History Tobacco Use Types Packs/Day Years Used Date Smoking Tobacco: Never Assessed Comments Unknown Sex and Gender Information Value Date Recorded Sex Assigned at Not on file Legal Sex Female 2:35 PM CDT Gender Identity Not on file Sexual Orientation Not on file documented as of this encounter Miscellaneous Notes * Cerner Conversion Note - Historical ProviderMD - 01/25/2020 6:55 AM PRINCIPAL IOS DEVELOPER DATE OF ADMISSION: 01/22/2020 HISTORY OF PRESENT [...] applying ice and heat, physical therapy, exercise, tafd-ofk-zckdxpr medication, bed rest going to [facility] Clinic, [...] to contact her primary physician and her sheet pile driver operator to see if we can hold [...] visit and the patient has been afebrile. /[id number] Karim Chaparro, MD, JELANI Pain Certified KR/AQ / KR / MODL CC: MD Sandra Valero APRN Electronically signed by Interface, [facility] Conversion Front Counter Attendant Cerner at 06/27/2022 8:04 AM CDT documented in this encounter Plan of Treatment Not on file documented as of this encounter Visit Diagnoses Not on filedocumented in this encounter Care Teams Operations Manager Relationship Specialty Start Date End Date Sandra Orozco, RUBEN [address] [address] PCP - General Nurse Practitioner 01/24/22 documented as of this encounter
[2024-12-30 11:12] VITALS: BP 117/65; PULSE 81; RESP 18; O2SAT 96
[2024-12-30] MEDS: IRON SUCROSE COMPLEX 200 MG in 0.9 % SODIUM CHLORIDE 100 ML 220 MG IV (11:12)
[2024-12-30 11:50] VITALS: BP 114/64; PULSE 80; RESP 17
== END 2024-12-30 23:59 | disposition home or self-care (01) ==
LOC: INF 10:50
PROVIDERS: PCP Nurse Practitioner Family; Visit Provider Nurse Practitioner Family
DX: D50.9 Iron deficiency anemia, unspecified (principal)
CPT/HCPCS: 96365; J1756

== ENCOUNTER 2025-01-01 10:38 | Outpatient (CLI) | payer MEDICARE, OTHER, SELFPAY ==
--- OUTSIDE RECORDS SUMMARY | 2024-11-12 12:30 | XMS_ITS | Encounter Summary ---
[facility] [address] [place] [address] Care Team Providers Care Radio Television Technical Director Name Role Phone Sandra Orozco APRN Primary Care Provider [phone] Reason for Visit * Reason Comments Hyperlipidemia Chronic Venous Insufficiency Atrial Fibrillation Encounter Details Date Type Department Care Team (Late st Contact Info) Description 11/12/2024 12:30 PM EDT Office Visit [facility] [address] [facility] [address], [place] [address] Dina Solano APRN [address] [facility] [address] [place] [address] Shortness of breath (Primary Dx); Generalized edema; Chronic respiratory failure with hypoxia; Paroxysmal atrial fibrillation; History of CVA (cerebrovascular accident); Moderate aortic valve regurgitation; Peripheral arterial disease Social History Tobacco Use Types Packs/Day Years Used Date Smoking Tobacco: Former Cigarettes Smokeless Tobacco: Never Tobacco Cessation:Counseling Given: Not Answered Comments:Smoked since 1973 Alcohol Use Standard Drinks/Week Comments Not Currently 0 (1 standard drink = 0.6 oz pur e alcohol) former [facility] Utilities Answer Date Recorded In the past 12 months has [employer] electric, gas, oil, or water company threatened to shut off services in your home? No 11/13/2024 AUDIT-C Answer Date Recorded Q1: How often do you have a drink containing alcohol? Never 11/13/2024 Q2: How many drinks containi ng alcohol do you have on a typical day when you are drinking? Patient does not drink Q3: How often do you have si x or more drinks on one occasion? Never 11/13/2024 Overall Financial Resource Strain (CARDIA) Answe r Date Recorded How hard is it for you to pa y for the very basics like food, housing, medical care, and heating? Not very hard 11/13/2024 [facility] Occupat ional Health - Occupational Stress Questionnaire Answer Date Recorded Do you feel stress - tense, restless, nervous, or anxious, or unable to sleep at night because your mind is troubled all the time - these days? Not at all 11/13/2024 Exercise Vital Sign Answer Date Recorde d On average, how many days pe r week do you engage in moderate to strenuous exercise (like a brisk walk)? 0 days 11/13/2024 On average, how many minutes do you engage in exercise at this level? 0 min 11/13/2024 Hunger Vital Sign Answer Date Recorded Within the past 12 months, y ou worried that your food would run out before you got the money to buy more. Never true 11/14/19 25 Within the past 12 months, t he food you bought just didn't last and you didn't have money to get more. Never true 11/13/2024 PRAPARE - Transportation Answer Date Re corded In the past 12 months, has l ack of transportation kept you from medical appointments or from getting medications? No 07/2024 In the past 12 months, has l ack of transportation kept you from meetings, work, or from getting things needed for daily living? No 11/13/2024 Abuse Screen Answer Date Recorded Feels Unsafe at Home or Work/School no 11/13/2024 Feels Threatened by Someone no 07/2024 Does Anyone Try to Keep You From Having Contact with Others or Doing Things Outside Your Home? no 11/13/2024 Physical Signs of Abuse Present no 11/13/2024 Housing Stability Answer Date Recorded Current Living Arrangements home 07/2024 Potentially Unsafe Housing Conditions none 11/13/2024 Family and Community Support Answer Rex e Recorded If for any reason you need h elp with day-to-day activities such as bathing, preparing meals, shopping, managing finances, etc., do you get the help you need? I don't need any help 11/13/2024 How often do you feel lonely or isolated from those around you? Never 11/13/2024 Employment Answer Date Recorded Do you want help finding or keeping work or a job? I do not need or want help 11/13/2024 Disabilities Answer Date Recorded Difficulty Concentrating, Remembering or Making Decisions no 11/13/2024 Difficulty Managing Errands Independently no 11/13/2024 Education Answer Date Recorded Do you want help with school or training? For example, starting or completing job training or getting a high school diploma, GED or equivalent No 11/13/2024 Preferred Language Nigerian 11/13/2024 PHQ-2 Answer Date Recorded Patient Health Questionnaire-2 Score 0 11/13/2024 Comments No Sex and Gender Information Value Date Recorded Sex Assigned at Female 07/09/2024 8:35 PM EDT Legal Sex Female 8:53 AM EST Gender Identity Not on file Sexual Orientation Straight 07/09/2024 8: 35 PM EDT documented as of this encounter Last Filed Vital Signs Vital Sign Reading Time Taken Comments Blood Pressure 95/60 11/12/2024 11:14 AM EDT Pulse 89 11/12/2024 11:14 AM EDT Temperature - - Respiratory Rate - - Oxygen Saturation - - Inhaled Oxygen Concentration - - Weight 83.2 kg (183 lb 8 oz) 11/12/2024 11:14 AM EDT Height 152.4 cm (5') 11/12/2024 11:14 AM EDT Body Mass Index 35.84 11/12/2024 11:14 AM EDT documented in this encounter Progress Notes * Dina Solano APRN - 11/12/2024 12:30 PM EDTAssociated Problem(s): Paroxysmal atrial fibrillation Continue to monitor, continue Xarelto 50 mg p.o. daily * Dina Solano APRN - 11/12/2024 12:30 PM EDTAssociated Problem(s): History of CVA (cerebrovascular accident) Revisit next visit * Dina Solano APRN - 11/12/2024 12:30 PM EDTAssociated Problem(s): Moderate aortic valve regurgitation Was going to order 2D echo today, patient will be going to the hospital and will likely have 2D echo there. * Dina Solano APRN - 11/12/2024 12:30 PM EDTAssociated Problem(s): Peripheral arterial disease (Resolved 11/26/2024) Continue Xarelto 15 mg p.o. daily Patient previously intolerant to statins Consider Repatha * Dina Solano APRN - 11/12/2024 12:30 PM EDTAssociated Problem(s): Shortness of breath Patient presents to the office today after following up with pulmonology yesterday with concerns ofworsening shortness of breath and lower extremity edema. Her university lecturer was concerned about heart failure and advised her to contact our office. I offered to order chest x-ray, proBNP, CMP and 2D echo for patient but advised her it may take some time to get echo and lab results back. Patient reports she is feeling terrible and would like to just present to the emergency department for possibleadmission. * Dina Solano APRN - 11/12/2024 12:30 PM EDT Images from the original note were not included. Cardiology Established Patient Note Name: Casi Cruz : 1960 PCP: Sandra Orozco APRN Date: 11/12/2024 Department: [facility] [address] [place] [address] [address] [facility] [id number] Chief Complaint: Chief Complaint Patient presents with Hyperlipidemia Chronic Venous Insufficiency Atrial Fibrillation Problem list: Paroxysmal atrial fibrillation/History of ischemic CVA/TIAs status post loop explant [id number] (Female, Age, CVA, PAD) PAF noted on loop from 2019 2. Moderate AR 2D echo 01/2023 EF 55% moderate aortic valve regurgitation Cardiac PET 04/15/2020 summed stress score 0 summed difference score 0 no ischemia 3. Hyperlipidemia 4. Peripheral [...] interstitial edema. Subjective History of Present Illness History of Present Illness The patient is a female who presents for evaluation of fluid retention, shortness of breath. She reports experiencing swelling all over and has gained approximately 10 pounds due to fluid retention. This issue began a few weeks ago. Her weight had previously decreased to 173 pounds but has since increased to 183 pounds. She also reports generalized swelling and a feeling of bloating. She is currently taking Bumex 1 mg twice daily. She experiences cramps in her thighs, legs, and feet, which disrupt her sleep. She has difficulty lying flat at home and requires more oxygen than usual, currently using 2 liters. She has not been monitoring her blood pressure at home. She reports no fevers but does have a cough that produces some sputum. Patient reports severe dyspnea on exertion. She has been diagnosed with COPD by her university lecturer who she was at a follow-up with yesterday advised her to schedule an appointment here. Patient reports that a CT scan was done at some point on her chest, I donot have access to these records. Patient reports occasional palpitations with her atrial fibrillation. The following data was reviewed by: Dina Solano APRN on 11/12/2024: Lab Results Component Value Date GLUCOSE 77 07/16/2024 BUN 26 (H) 07/16/2024 CREATININE 0.84 07/16/2024 BCR 31.0 (H) 07/16/2024 K 4.2 07/16/2024 CO2 31.0 (H) 07/16/2024 CALCIUM 8.9 07/16/2024 No results found for: CHOL , CHLPL , TRIG , HDL , LDL , LDLDIRECT No results found for: WBC , RBC , HGB , HCT , MCV , PLT No results found for: TSH No results found for: HGBA1C No results found for: LPACHOL No results found for: MICROALBUR Objective Vital Signs: BP 95/60 (BP Location: Left arm, Patient Position: Sitting, Cuff Size: Adult) Pulse 89 Ht 152.4cm (60 ) Wt 83.2 kg (183 lb 8 oz) BMI 35.84 kg/m?? Estimated body mass index is 35.84 kg/m?? as calculated from the following: Height as of this encounter: 152.4 cm (60 ). Weight as of this encounter: 83.2 kg (183 lb 8 oz). Constitutional: Appearance: Healthy appearance. Eyes: Pupils: Pupils are equal, round, and reactive to light. HENT: Nose: Nose normal. Pulmonary: Effort: Pulmonary effort is normal. Breath sounds: Rales present. Cardiovascular: Normal rate. Regular rhythm. Murmurs: There is a systolic murmur. Pulses: Intact distal pulses. Edema: Peripheral edema present. Pretibial: bilateral edema of the pretibial area. Ankle: bilateral edema of the ankle. Feet: bilateral edema of the feet. Abdominal: General: Bowel sounds are normal. Musculoskeletal: Cervical back: Normal range of motion. Skin: General: Skin is warm and dry. Neurological: General: No focal deficit present. Mental Status: Alert and oriented to person, place and time. Gait: Gait is intact. Assessment and Plan Assessment & Plan Shortness of breath Patient presents to the office today after following up with pulmonology yesterday with concerns ofworsening shortness of breath and lower extremity edema. Her university lecturer was concerned about heart failure and advised her to contact our office. I offered to order chest x-ray, proBNP, CMP and 2D echo for patient but advised her it may take some time to get echo and lab results back. Patient reports she is feeling terrible and would like to just present to the emergency department for possibleadmission. Generalized edema Patient is on Bumex 1 mg p.o. twice daily, had patient on chosen to go to the emergency department would have obtain lab work and increased her Bumex to 2 mg p.o. twice daily. Patient reports she would prefer to go to the hospital for evaluation. Chronic respiratory failure with hypoxia Patient is generally requires 1 L nasal cannula, she reports she is now requiring 2 L and still feeling short of breath. Paroxysmal atrial fibrillation Continue to monitor, continue Xarelto 50 mg p.o. daily History of CVA (cerebrovascular accident) Revisit next visit Moderate aortic valve regurgitation Was going to order 2D echo today, patient will be going to the hospital and will likely have 2D echo there. Peripheral arterial disease Continue Xarelto 15 mg p.o. daily Patient previously intolerant to statins Consider Repatha Discussed with patient about next steps, I discussed with patient I can order labs, chest x-ray, 2Decho and increase diuretics based on lab results or patient can present to the emergency department. Patient reports she is feeling very poorly and would like to present to the emergency department for evaluation. Patient reports she will go to [facility] this afternoon. Follow Up Return in about 2 weeks (around 11/26/2024) for With Me. Patient or patient claims customer service representative verbalized consent for the use of Ambient Listening during the visit with Dina Solano APRN for chart documentation. 11/12/2024 12:47 EDT Dina Solano APRN [facility] Cardiology documented in this encounter Plan of Treatment Upcoming Encounters Date Type Department Care Team (Late st Contact Info) Description 02/16/2025 11:00 AM EST Office Visit [facility] [address] [facility] [address] [place] [phone] Dina Solano APRN [address] [facility] [address] [place] [address] documented as of this encounter Visit Diagnoses Diagnosis Shortness of breath- Primary Generalized edema Edema Chronic respiratory failure with hypoxia Paroxysmal atrial fibrillation Atrial fibrillation History of CVA (cerebrovascular accident) Transient ischemic attack (TIA), and cerebral infarction without residual deficits Moderate aortic valve regurgitation Peripheral arterial disease Unspecified peripheral vascular disease documented in this encounter Care Teams Radio Television Technical Director Relationship Specialty Start Date End Date Sandra Orozco APRN [address] [place] [id number] PCP - General Internal Medicine 05/11/24 documented as of this encounter
--- OUTSIDE RECORDS SUMMARY | 2024-11-12 21:36 | XMS_ITS | Encounter Summary ---
Author Organization [facility] Address [address] [place] [address] Care Team Providers Care Manager Baby Name Role Phone Sandra Orozco APRN Primary Care Provider Reason for Visit * Reason Comments Shortness of Breath * Auth/Cert Specialty Diagnoses / Procedures Referred By Contac t Referred To Contact Diagnoses Respiratory failure with hypoxia Referral ID Status Reason Start Date Expiration Date Visits Re quested Visits Authorized [id number] 1 1 Encounter Details Date Type Department Care Team (Late st Contact Info) Description 11/12/2024 9:36 PM EDT - 11/14/2024 4:38 PM EDT Hospital Encounter [address] [place] [phone] Vasu Mckeon MD [address] [place] [address] Domitila Villalobos MD [address] [facility] [address] [place] [address] Mel Palma DO [address] [place] [address] Vasu Luke MD [address] [address] Referred by health home care provider (Primary Dx); Dyspnea on exertion; Chronic respiratory [...] oz pur e alcohol) former [facility] Utilities Answer Date Recorded In the past 12 months has [employer] electric, gas, oil, or water [place] [employer] threatened to shut off services in your [...] care, and heating? Not very hard 11/13/2024 [facility] [place] of Occupat ional Health - Occupational Stress [...] GED or equivalent No 11/13/2024 Preferred Language Tamazight 11/13/2024 PHQ-2 Answer Date Recorded Patient Health [...] 11/12/2024 4:43 PM Minna Vazquez RN * [place] Suicide Severity Rating Scale (Screener/Recent Self-Report) Question [...] from the original note were not included. [facility] Medicine Services DISCHARGE SUMMARY Patient [...] outpatient labs/diagnostics: Pcp [address] Kirk ([facility]) ~1 week Regular pulmonary physician 1st [...] motion Neuro: Face symmetric, speech clear, equal apiculturist, moves all extremities Cardiac: rrr Resp: slightly [...] Date/Time Respiratory Panel PCR w/COVID-19(SARS-CoV-2) SIDRA/CHECO/SAUD/PAD/COR/ERIC In-House, COURT ADVOCATE Swab in UTM/VTM, 2 HR TAT - Swab, Nasopharynx [[id number]] (Normal) Collected: 11/13/24 0326 Lab Status: Final [...] SCREENING ORDER (NO ISOLATION) - Swab, Nasopharynx [[id number]] (Normal) Collected: 11/12/24 192 Lab Status: Final result Specimen: Swab from Nasopharynx Updated: 11/12/242023 Narrative: The following orders were created for panel order COVID PRE-OP / PRE-PROCEDURE SCREENING ORDER (NO ISOLATION) - Swab, Nasopharynx. Procedure Abnormality Status --------- ------ COVID-19, FLU A/B, RSV P...[[id number]] Normal Final result Please view results for these tests on the individual orders. COVID-19, FLU A/B, RSV PCR 1 HR TAT - Swab, Nasopharynx [[id number]] (Normal) Collected: 11/12/241920 Lab Status: Final result Specimen: Swab from Nasopharynx Updated: 11/12/242023 COVID19 Not Detected Influenza A PCR Not Detected Influenza B PCR Not Detected RSV, PCR Not Detected Urine Culture - Urine, Urine, Clean Catch [[id number]] (Normal) Collected: 11/12/241919 Lab Status: Final result [...] MD 11/12/2024 8:31 PM EDT Workstation ID: [id number] XR Chest 1 View Result Date: 11/12/2024 XR CHEST 1 VW Date of Exam: 11/12/2024 6:28 PM EDT Indication: SOA triage protocol. Comparison: 07/16/2024 Findings: Heart size at the upper limits of normal. Pulmonary vessels normal. Lungs are clear. No pleural effusion. No pneumothorax. Impression: 1. No acute cardiopulmonary disease. Electronically Signed: Arben Neely MD 11/12/2024 7:02 PM EDT Workstation ID: [id number] Results for orders placed during the hospital [...] Comments) Swelling all over Nortriptyline Swelling Poison Gilman Extract Hives, Itching, Swelling and Rash Poison [...] week Discharge Follow-up with Specialty: Dr. Kirk ([facility]) 1 week As directed Specialty: Dr. Kirk ([facility]) 1 week Discharge Follow-up with Specialty: regular purchasing and fiscal clerk (2 weeks or 1st available) As directed Specialty: regular purchasing and fiscal clerk (2 weeks or 1st available) Vasu Luke MD 11/14/24 Time Spent on Discharge: I spent 35 minutes on this discharge activity which included: fevu-[id number] with the patient, reviewing the data in the system, coordination of the care with the nursing staff as well as consultants, documentation, and entering orders. * Libertad Urbano, PT - 11/14/2024 7:40 AM EDT Patient Name: Casi Cruz : 1960 Today's Date: 11/14/2024 Admit Date: 11/12/2024 Visit Dx: ICD-10-CM ICD-9-CM 1. Referred by health home care provider Z02.89 V68.89 2. Dyspnea on exertion R06.09 [...] MODERATE BY ECHO Aortic regurgitation MODERATE BY THE MEDICAL CENTER ECHO Arthritis Asthma Chronic respiratory [...] RECORDER PLACEMENT: 11/06/2018- AE. LOOP RECORDER SERIAL #[id number] SINUS SURGERY General Information Row Name 11/14/24 [...] PT Physical Therapist Mobility Row Name 11/14/24 0771 Bed Mobility Bed Mobility supine-sit -LS Supine-Sit [place] (Bed Mobility) independent -LS Comment, (Bed Mobility) Pt transitioned supine to sit indep on flat bed surface without a rail. PerPT's clinical judgement, pt would be indep sit to supine as well. -LS Row Name 11/14/24 0740 Sit-Stand Transfer Sit-Stand [place] (Transfers) independent -LS Comment, (Sit-Stand Transfer) indep without AD -LS Row Name 11/14/24 0740 Gait/Stairs (Locomotion) [place] Level (Gait) independent -LS Patient was able [...] Therapist Physical Therapy Education Title: PT OT AUTO HEADLIGHT MECHANIC Therapies (In Progress) Topic: Physical Therapy (Resolved) [...] Description Service Date Service Provider Modifiers Qty [id number] HC PT EVAL LOW COMPLEXITY 4 11/14/2024 [...] EDT Acute Care - Occupational Therapy Discharge [facility] Patient Name: Casi Cruz : 1960 Today's Date: 11/13/2024 Admit Date: 11/12/2024 Visit Dx: ICD-10-CM ICD-9-CM 1. Referred by health home care provider Z02.89 V68.89 2. Dyspnea on exertion R06.09 [...] MODERATE BY ECHO Aortic regurgitation MODERATE BY THE [facility] ECHO Arthritis Asthma Chronic venous [...] RECORDER PLACEMENT: 11/06/2018- AE. LOOP RECORDER SERIAL #[id number] SINUS SURGERY General Information Row Name 11/13/24 [...] Name 11/13/24 142 Bed Mobility Bed Mobility sclatg-aab-vvtcru -AN Rnknou-Dub-Cslzbh [place] (Bed Mobility) independent -AN [facility] 11/13/24 142 Transfers Transfers sit-stand transfer;stand-sit transfer -AN [facility] 11/13/24 142 Sit-Stand Transfer Sit-Stand [place] (Transfers) supervision -AN [facility] 11/13/24 142 Stand-Sit Transfer Stand-Sit [place] (Transfers) supervision -AN [facility] 11/13/24 142 Functional Mobility Functional Mobility- Ind. Level supervision required -AN [facility] 11/13/24 142 Activities of Daily Living BADL Assessment/Intervention lower body dressing;upper body dressing -AN [facility] 11/13/24 142 Lower Body Dressing Assessment/Training [place] Level (Lower Body Dressing) don;socks;independent -AN Position (Lower Body Dressing) edge of bed sitting -AN [facility] 11/13/241421 Upper Body Dressing Assessment/Training [place] Level (Upper Body Dressing) don;pajama/robe;independent -AN Position (Upper Body Dressing) edge of bed sitting -AN User Tierney (r) = Recorded By, (t) = Taken By, (c) = Cosigned By Initials Name Provider Type Che Poole OT Occupational Therapist Obj/Interventions [facility] Name 11/13/24 142 Sensory Assessment (Somatosensory) Sensory Assessment (Somatosensory) right UE -AN Sensory Subjective Reports numbness -AN Sensory Assessment hx of nerve damage -AN [facility] 11/13/24 142 Vision Assessment/Intervention Visual Impairment/Limitations WFL -AN [facility] 11/13/24 142 Range of Motion Comprehensive General Range of Motion no range of motion deficits identified -AN [facility] 11/13/24 142 Strength Comprehensive (MMT) General Manual Muscle Testing (MMT) Assessment no strength deficits identified -AN [facility] 11/13/24 142 Balance Balance Assessment sitting [...] Pain Rating 0/10 - no pain -AN [facility] Name 11/13/241425 Plan of Care Review [...] (OT) Anticipated Discharge Disposition (OT) home -AN [facility] Name 11/13/241425 Vital Signs Pre SpO2 (%) 95 -AN O2 Delivery Pre Treatment room air -AN O2 Delivery Intra Treatment room air -AN Post SpO2 (%) 95 -AN O2 Delivery Post Treatment room air -AN Pre Patient Position Supine -AN Intra Patient Position Standing -AN Post Patient Position Supine -AN [facility] 11/13/241425 Positioning and Restraints Pre-Treatment Position [...] Therapist Occupational Therapy Education Title: PT OT AUTO HEADLIGHT MECHANIC Therapies (In Progress) Topic: Occupational Therapy (In [...] Description Service Date Service Provider Modifiers Qty [id number] HC OT EVAL LOW COMPLEXITY 3 11/13/2024 Che Velazquez OT GO 1 OT Discharge Summary Anticipated Discharge Disposition (OT): home Reason for Discharge: Independent Discharge Destination: Home Che Velazquze OT 11/13/2024 documented in this encounter Discharge Instructions * Attachments The following attachments cannot be sent through Care Everywhere. * Heart Failure and Exercise: What to Know (Tamazight) * Prednisone Tablets (Tamazight) documented in this encounter Medications at Time [...] nursing note reviewed. Exam conducted with a hand hose cutter present. HENT: Mouth/Throat: Mouth: Mucous membranes are [...] Plan 1-acute on chronic hypoxic respiratory failure-resolved. -15-cjlx-nfsg history of smoking-stopped last year -Likely COPD [...] from the original note were not included. [facility] Medicine Services ADMISSION FOLLOW-UP NOTE Patient admitted after midnight, H&P by my partner performed earlier on today's date reviewed. Interim findings, labs, and charting also reviewed. [facility] Hospital Problem List has been [...] from the original note were not included. [facility] Medicine Services HISTORY AND PHYSICAL [...] urinary symptoms. Pt follows w/ Pulmonology in [place]. Pt was seen for evaluation this week [...] MODERATE BY ECHO Aortic regurgitation MODERATE BY THE [facility] ECHO Arthritis Asthma Chronic venous [...] RECORDER PLACEMENT: 11/06/2018- AE. LOOP RECORDER SERIAL #[id number] SINUS SURGERY Family History: family history includes [...] Comments) Swelling all over Nortriptyline Swelling Poison Gilman Extract Hives, Itching, Swelling and Rash Poison [...] SCREENING ORDER (NO ISOLATION) - Swab, Nasopharynx [[id number]] (Normal) Collected: 11/12/241920 Lab Status: Final result Specimen: Swab from Nasopharynx Updated: 11/12/242023 Narrative: The following orders were created for panel order COVID PRE-OP / PRE-PROCEDURE SCREENING ORDER (NO ISOLATION) - Swab, Nasopharynx. Procedure Abnormality Status --------- ------ COVID-19, FLU A/B, RSV P...[[id number]] Normal Final result Please view results for these tests on the individual orders. COVID-19, FLU A/B, RSV PCR 1 HR TAT - Swab, Nasopharynx [[id number]] (Normal) Collected: 11/12/241920 Lab Status: Final result [...] MD 11/12/2024 8:31 PM EDT Workstation ID: [id number] XR Chest 1 View Result Date: 11/12/2024 XR CHEST 1 VW Date of Exam: 11/12/2024 6:28 PM EDT Indication: SOA triage protocol. Comparison: 07/16/2024 Findings: Heart size at the upper limits of normal. Pulmonary vessels normal. Lungs are clear. No pleural effusion. No pneumothorax. Impression: Impression: 1. No acute cardiopulmonary disease. Electronically Signed: Arben Neely MD 11/12/2024 7:02 PM EDT Workstation ID: [id number] Assessment & Plan Assessment & Plan Respiratory [...] scheduled nebs -pt follows w/ Pulmonary in [place]- seen this week and referred to Cardiology [...] Patient apparently was seen by pulmonology in [place] and was told that her lungs were [...] MODERATE BY ECHO Aortic regurgitation MODERATE BY THE [facility] ECHO Arthritis Asthma Chronic respiratory [...] RECORDER PLACEMENT: 11/06/2018- AE. LOOP RECORDER SERIAL #[id number] SINUS SURGERY Family History Problem Relation Age [...] home O2 therapy Shortness of breath Edema SOMOTH (obstructive sleep apnea) Anemia Stage 3a chronic [...] Patient apparently was seen by pulmonology in [place] and was told that her lungs were [...] further evaluation per primary team or appropriate child development consultant. 5. For SMOOTH on CPAP: Continue CPAP. 6. For acute on chronic hypoxemic respiratory failure: Back to baseline oxygen requirement after diuresis. Continue supplemental oxygen. Wean as tolerated. Electronically signed by: Michele Sanchez MD 11/13/24 18:31 EDT *. Please note that portions of this note were completed with Dataminr - a voice recognition program. * Chrsity Kirk MD - 11/13/2024 9:58 AM EDT [...] has history of COPD with greater than 40-lgos-rphu history of smoking. Quit 1 year ago. She encountered COVID several years ago followed by bilateral pulmonary atelectasis and chronic respiratory failure requiring home O2. She has mild to moderate aortic insufficiency on 2D echocardiogram from 2022 which was performed in [place]. Her last echo was over 2 years [...] MODERATE BY ECHO Aortic regurgitation MODERATE BY THE [facility] ECHO Arthritis Asthma Chronic venous [...] RECORDER PLACEMENT: 11/06/2018- AE. LOOP RECORDER SERIAL #[id number] SINUS SURGERY , Family History Problem Relation Age of Onset Coronary artery disease Mother Heart attack Mother Hyperlipidemia Father Hypertension Father , and Allergies: Celecoxib, Hydrocodone, Cipro [ciprofloxacin hcl], Dexamethasone, Gabapentin, Levofloxacin, Nitrofurantoin, Nortriptyline, Poison oak extract, Repatha [evolocumab], and Wound dressing adhesive Physical Exam Vitals and nursing note reviewed. Exam conducted with a hand hose cutter present. HENT: Mouth/Throat: Mouth: Mucous membranes are [...] Plan 1-acute on chronic hypoxic respiratory failure -60-ghqj-copo history of smoking-stopped last year -Likely COPD [...] Outcome: Progressing Flowsheets (Taken 11/14/2024 0740 by Lbiertad Urbano, PT) Outcome Evaluation: Pt is indep [...] position changed independently Taken 11/13/2024 0800 by Jlil Altamirano RN Body Position: [...] Documentation Taken 11/13/2024 0800 by Jill Altamirano RNocean freight forwarder Interventions: no interventions per patient request Intervention: [...] on Bumex, who was sent by her splitter head for worsening leg swelling and dyspnea. This [...] MODERATE BY ECHO Aortic regurgitation MODERATE BY THE [facility] ECHO Arthritis Asthma Chronic venous [...] RECORDER PLACEMENT: 11/06/2018- AE. LOOP RECORDER SERIAL #[id number] SINUS SURGERY FAMILY HISTORY Family History Problem [...] pH, UA 5.5 5.0 - 8.0 Specific [place], UA >1.030 (H) 1.005 - 1.030 Glucose, [...] MD 11/12/2024 8:31 PM EDT Workstation ID: [id number] XR Chest 1 View Result Date: 11/12/2024 XR CHEST 1 VW Date of Exam: 11/12/2024 6:28 PM EDT Indication: SOA triage protocol. Comparison: 07/16/2024 Findings: Heart size at the upper limits of normal. Pulmonary vessels normal. Lungs are clear. No pleural effusion. No pneumothorax. Impression: 1. No acute cardiopulmonary disease. Electronically Signed: Arben Neely MD 11/12/2024 7:02 PM EDT Workstation ID: [id number] I ordered and independently reviewed the above [...] [address] Angiogram Chest Pulmonary Embolism [place] Draw Comprehensive Metabolic Panel BNP High Sensitivity [...] shows history of COPD and CKD [CC] 1714 This is 64-year-old with COPD, chronic respiratory failure, aortic valve regurgitation on Bumex, who was sent by her splitter head for worsening leg swelling and dyspnea. This [...] 80s. I have contacted Dr. Kirk her splitter head who agrees with admission does not want any special orders at this time but will evaluate in the morning. Hospitalist team consulted for admission. [CC] ED Course User Index [CC] Vasu Mckeno MD Shared Decision Making: After my consideration of clinical presentation and any laboratory/radiology studies obtained, I discussed the findings with the patient/patient safety representative who is in agreement with the treatment plan and the final disposition. Risks and benefits of discharge and/or observation/admission were discussed. OF 01:41 EDT VITALS: BP - 95/49 HR - 87 TEMP - 97.8 ??F (36.6 ??C) (Oral) O2 SATS - 95% DIAGNOSIS Final diagnoses: Referred by health home care provider Dyspnea on exertion Chronic respiratory failure with [...] 11/13/2024 2:31 PM EDT Discharge Planning Assessment [facility] Patient Name: Casi Cruz Today's Date: [...] Name 11/13/24 1426 Plan Plan Home at NH Patient/Family in Agreement with Plan yes Plan Comments Spoke with patient at the bedside. Patient lives alone in a home in [facility]. Wears 2L of oxygen and CPAP provided by [facility]. Independent and ambulates with a straight cane as needed. Not current with and outpatient services. PCP is Sandra Orozco APRN. Pharmacy is [facility]. Insurance is Medicare A & B. Plan is home at NH and has transportation. Denies concerns and needs [...] Description 02/16/2025 11:00 AM EST Office Visit [facility] [address] [facility] [address], [place] [address] Dina Solano APRN [address] [facility] [address] [place] [address] documented as of this encounter Procedures Procedure [...] EDT RESPIRATORY PANEL PCR W/ COVID-19 (SARS-COV-2), COURT [facility] SWAB IN UTM/VTP, 2 HR TAT Routine 11/13/2024 3:26 AM EDT BLOOD GAS, VENOUS W/CO-OXIMETRY STAT 11/12/2024 11:[address] ANGIOGRAM CHEST PULMONARY EMBOLISM STAT 11/12/2024 7:46 PM EDT COVID-19/FLUA&B/RSV, COURT [facility] SWAB IN TRANSPORT MEDIA 1 HR TAT [...] AND COLOR FLOW (11/14/2024 11:32 AM EDT) [facility] EF(MOD-bp) 72.2 % LVIDd 4.3 cm [...] - 10.80 10*3/mm3 11/13/2024 12:36 PM EDT [facility] RBC 3.89 3.77 - 5.28 10*6/mm3 11/13/2024 12:36 PM EDT [facility] Hemoglobin 8.1(L) 12.0 - 15.9 g/dL 11/13/2024 12:36 PM EDT [facility] Hematocrit 29.1(L) 34.0 - 46.6 % 11/13/2024 12:36 PM EDT [facility] MCV 74.8(L) 79.0 - 97.0 fL 11/13/2024 12:36 PM EDT [facility] MCH 20.8(L) 26.6 - 33.0 pg 11/13/2024 12:36 PM EDT [facility] MCHC 27.8(L) 31.5 - 35.7 g/dL 11/13/2024 12:36 PM EDT [facility] RDW 19.0(H) 12.3 - 15.4 % 11/13/2024 12:36 PM EDT [facility] RDW-SD 51.3 37.0 - 54.0 fl 11/13/2024 12:36 PM EDT [facility] MPV 9.8 6.0 - 12.0 fL 11/13/2024 12:36 PM EDT [facility] Platelets 227 140 - 450 10*3/mm3 11/13/2024 12:36 PM EDT [facility] Neutrophil % 63.6 42.7 - 76.0 % 11/13/2024 12:36 PM EDT [facility] Lymphocyte % 23.3 19.6 - 45.3 % 11/13/2024 12:36 PM [facility] Monocyte % 8.9 5.0 - 12.0 % 11/13/2024 12:36 PM [facility] Eosinophil % 2.8 0.3 - 6.2 % 11/13/2024 12:36 PM [facility] Basophil % 0.7 0.0 - 1.5 % 11/13/2024 12:36 PM EDT [facility] Immature Grans % 0.7(H) 0.0 - 0.5 % 11/13/2024 12:36 PM [facility] Neutrophils, Absolute 3.44 1.70 - 7.00 10*3/mm3 11/13/2024 12:36 PM [facility] Lymphocytes, Absolute 1.26 0.70 - 3.10 10*3/mm3 11/13/2024 12:36 PM [facility] Monocytes, Absolute 0.48 0.10 - 0.90 10*3/mm3 11/13/2024 12:36 PM [facility] Eosinophils, Absolute 0.15 0.00 - 0.40 10*3/mm3 11/13/2024 12:36 PM EDT [facility] Basophils, Absolute 0.04 0.00 - 0.20 10*3/mm3 11/13/2024 12:36 PM [facility] Immature Grans, Absolute 0.04 0.00 - 0.05 10*3/mm3 11/13/2024 12:36 PM [facility] nRBC 0.0 0.0 - 0.2 /100 WBC 11/13/2024 12:36 PM EDT [facility] Blood Venipuncture / Unknown 11/13/2024 12:07 PM EDT 11/13/2024 12:26 PM EDT Aaliyah Abhijeet MIRANDA LAB BLOOD ORDERABLES Final Re sult [facility]
[address] [place] [address], * (ABNORMAL) Reticulocytes (11/13/2024 12:07 PM EDT) Pathologist [facility] Reticulocyte % 2.78(H) 0.70 - 1.90 % 11/13/2024 12:32 PM EDT [facility] Reticulocyte Absolute 0.1081 0.0200 - 0.1300 10*6/mm3 11/13/2024 12:32 PM EDT [facility] Blood Venipuncture / Unknown 11/13/2024 12:07 PM EDT 11/13/2024 12:26 PM EDT Aaliyah Jha APRN LAB BLOOD ORDERABLES Final Re sult Performing Organization Address City/[facility]/ZIP Co de Phone Number [facility]
[address] [place] [address], * Folate RBC (11/13/2024 12:07 PM EDT) Folate, Hemolysate 538.0 Not Estab. ng/mL 11/16/2024 9:09 AM EDT [facility] Hematocrit 40.7 34.0 - 46.6 % 11/16/2024 9:09 AM EDT [facility] RBC Folate 1322 >498 ng/mL 11/16/2024 9:09 AM EDT [facility] Blood Venipuncture / Unknown 11/13/2024 12:07 PM EDT 11/13/2024 12:26 PM EDT Narrative [facility] - 11/16/2024 9:09 AM EDT Performed at: [address] [place] [address] [phone] Organ Pipe Voicer: Gomez Crooks PhD, Phone: [phone] Aaliyah Jha APRN LAB BLOOD ORDERABLES Edited R esult - Final Performing Organization Address City/[facility]/ZIP Co de Phone Number [facility] [address] [place] [address], [place] [phone] * TSH (11/13/2024 12:07 PM EDT) TSH 2.770 0.270 - 4.200 uIU/mL 11/13/2024 12:56 PM EDT [facility] Blood Venipuncture / Unknown 11/13/2024 12:07 PM EDT 11/13/2024 12:26 PM EDT Aaliyah Jha APRN LAB BLOOD ORDERABLES Final Re sult Performing Organization Address City/[facility]/ZIP Co de Phone Number [facility]
[address] [place] [address], [place] [phone] * (ABNORMAL) Hemoglobin A1c (11/13/2024 12:07 PM EDT) Hemoglobin A1C 5.84(H) 4.80 - 5.60 % 11/13/2024 1:23 PM EDT [facility] Blood Venipuncture / Unknown 11/13/2024 12:07 PM EDT 11/13/2024 12:26 PM EDT Narrative [facility] - 11/13/2024 1:23 PM EDT Hemoglobin A1C Ranges: Increased Risk for Diabetes 5.7% to 6.4% Diabetes >= 6.5% Diabetic Goal < 7.0% Aaliyah Abhijeet PEAN[employer]OR LAB BLOOD ORDERABLES Final Re sult Performing Organization Address City/[facility]/ZIP Co de Phone Number [facility]
[address] [place] [address], * Magnesium (11/13/2024 12:07 PM EDT) Magnesium 1.9 1.6 - 2.4 mg/dL 11/13/2024 12:56 PM EDT [facility] Blood Venipuncture / Unknown 11/13/2024 12:07 PM EDT 11/13/2024 12:26 PM EDT Aaliyah Jha APRN LAB BLOOD ORDERABLES Final Re sult Performing Organization Address [facility] Co de Phone Number [facility]
[address] [place] [address], * (ABNORMAL) Basic Metabolic Panel (11/13/2024 12:07 PM EDT) Glucose 100(H) 65 - 99 mg/dL 11/13/2024 12:56 PM EDT [facility] BUN 19.7 8.0 - 23.0 mg/dL 11/13/2024 12:56 PM EDT [facility] Creatinine 0.93 0.57 - 1.00 mg/dL 11/13/2024 12:56 PM EDT [facility] Sodium 143 136 - 145 mmol/L 11/13/2024 12:56 PM EDT [facility] Potassium 3.8 3.5 - 5.2 mmol/L 11/13/2024 12:56 PM EDT [facility] Chloride 102 98 - 107 mmol/L 11/13/2024 12:56 PM EDT [facility] CO2 31.1(H) 22.0 - 29.0 mmol/L 11/13/2024 12:56 PM EDT [facility] Calcium 8.6 8.6 - 10.5 mg/dL 11/13/2024 12:56 PM EDT [facility] BUN/Creatinine Ratio 21.2 7.0 - 25.0 11/13/2024 12:56 PM EDT [facility] Anion Gap 9.9 5.0 - 15.0 mmol/L 11/13/2024 12:56 PM EDT [facility] eGFR 67.9 >60.0 mL/min/1.7 3 11/13/2024 12:56 PM EDT [facility] Blood Venipuncture / Unknown 11/13/2024 12:07 PM EDT 11/13/2024 12:26 PM EDT Narrative [facility] - 11/13/2024 12:56 PM EDT GFR [...] race as a factor us Aaliyah Jha PEANUT VENDOR LAB BLOOD ORDERABLES Final Re sult [facility]
[address] [place] [address], * Duplex Venous Lower Extremity - Bilateral [...] 12 Lead Dyspnea (11/13/2024 5:53 AM EDT) [facility] QT Interval 410 ms ECG QTC [...] change was found Confirmed by ABDULLAHI HENDRICKSON ([id number]) on 11/13/2024 7:39:07 PM Referred By: Confirmed [...] change was found Confirmed by ABDULLAHI HENDRICKSON ([id number]) on 11/13/2024 7:39:07 PM Referred By: Confirmed By: ABDULLAHI HENDRICKSON Aaliyah Jha APRN ECG ORDERABLES Final Result ECG * Respiratory Panel PCR w/COVID-19(SARS-CoV-2) SIDRA/CHECO/SAUD/PAD/COR/ERIC In-House, COURT [employer] Swab in UTM/VTM, 2 HR TAT - Swab, Nasopharynx (11/13/2024 3:26 AM EDT) ADENOVIRUS, PCR Not Detected Not Detected [facility]IO[facility]RE [facility] 11/13/2024 4:48 AM EDT [facility] Coronavirus 229E Not Detected Not Detected [facility]IO[facility]RE [facility] 11/13/2024 4:48 AM EDT [facility] Coronavirus HKU1 Not Detected Not Detected BIOFIRE [facility] 11/13/2024 4:48 AM EDT [facility] Coronavirus NL63 Not Detected Not Detected [facility] 11/13/2024 4:48 AM EDT [facility] Coronavirus OC43 Not Detected Not Detected [facility] 11/13/2024 4:48 AM EDT [facility] COVID19 Not Detected Not Detected - Ref. Range [facility] 11/13/2024 4:48 AM EDT [facility] Human Metapneumovirus Not Detected Not Detected [facility] 11/13/2024 4:48 AM EDT [facility] Human Rhinovirus/Enterov irus Not Detected Not Detected [facility] 11/13/2024 4:48 AM EDT [facility] Influenza A PCR Not Detected Not Detected [facility] 11/13/2024 4:48 AM EDT [facility] Influenza B PCR Not Detected Not Detected [facility] 11/13/2024 4:48 AM EDT [facility] Parainfluenza Virus 1 Not Detected Not Detected [facility]RE [facility] 11/13/2024 4:48 AM EDT [facility] Parainfluenza Virus 2 Not Detected Not Detected [facility] 11/13/2024 4:48 AM EDT [facility] Parainfluenza Virus 3 Not Detected Not Detected [facility]RE [facility] 11/13/2024 4:48 AM EDT [facility] Parainfluenza Virus 4 Not Detected Not Detected [facility] 11/13/2024 4:48 AM EDT [facility] RSV, PCR Not Detected Not Detected [facility] 11/13/2024 4:48 AM EDT [facility] Bordetella pertussis pcr Not Detected Not Detected [facility] 11/13/2024 4:48 AM EDT [facility] Bordetella parapertussis PCR Not Detected Not Detected [facility] 11/13/2024 4:48 AM EDT [facility] Chlamydophila pneumoniae PCR Not Detected Not Detected [facility] 11/13/2024 4:48 AM EDT [facility] Mycoplasma pneumo by PCR Not Detected Not Detected [facility] 11/13/2024 4:48 AM EDT [facility] Swab Nasopharyngeal structure / Unknown Collection / Unknown 11/13/2024 3:26 AM EDT 11/13/2024 4:00 AM EDT [facility]ORY - 11/13/2024 4:48 AM [...] MICROBIOLOGY - GENERAL ORDERA BLES Final Result [facility]
[address] [place] [address], * (ABNORMAL) Blood Gas, Venous With Co-Ox (11/12/2024 11:16 PM EDT) Site Nurse/Dr Draw 11/12/2024 11:17 PM EDT [facility] THER[facility]Y pH, Venous 7.337 7.310 - 7.410 pH Units 11/12/2024 11:17 PM EDT [facility]ER[facility] pCO2, Venous 59.6(H) 41.0 - 51.0 mm Hg 11/12/2024 11:17 PM EDT [facility] Comment:83 Value above refer ence range pO2, Venous 30.4 27.0 - 53.0 mm Hg 11/12/2024 11:17 PM EDT [facility] HCO3, Venous 31.9(H) 22.0 - 28.0 mmol/L 11/12/2024 11:17 PM EDT [facility] Base Excess, Venous 5.0(H) -2.0 - 2.0 mmol/L 11/12/2024 11:17 PM EDT [facility] Hemoglobin, Blood Gas 9.3(L) 14 - 18 g/dL 11/12/2024 11:17 PM EDT [facility] Oxyhemoglobin Venous 48.3 % 06/2024 11:17 PM EDT [facility] Methemoglobin Venous 0.4 % 06/2024 11:17 PM EDT [facility] Carboxyhemoglobin Venous 1.7 % 11/12/2024 11:17 PM EDT [facility] CO2 Content 33.7(H) 22 - 33 mmol/L 11/12/2024 11:17 PM EDT [facility] Temperature 37.0 11/12/2024 11:17 PM EDT [facility] Barometric Pressure for Blood Gas 11/12/2024 11:17 PM EDT [facility] Comment:N/A Modality Nasal Cannula 11/12/2024 11:17 PM EDT [facility] THER[facility] FIO2 28 % 11/12/2024 11:17 PM EDT [facility] THER[facility] Rate 0 Breaths/ minute 11/12/2024 11:17 PM EDT [facility]ER[facility] PIP 0 cmH2O 11/12/2024 11:17 PM EDT [facility] Comment:Meter: [id number] Ship Pilot Dispatcher: [id number] IPAP 0 11/12/2024 11:17 PM EDT [facility] THERAPY EPAP 0 11/12/2024 11:17 PM EDT [facility] THER[facility] Venous Blood 11/12/2024 11:1 6 PM EDT 11/12/2024 11:16 PM EDT us Vasu Mckeon MD LAB BLOOD ORDERABLES Fin al Result [facility]ER[facility]
[address] [place] [address], * CT Angiogram Chest Pulmonary Embolism (11/12/2024 7:46 PM EDT) Anatomical Region Laterality Modality Chest N/A Computed Tomogra phy 11/12/2024 8:22 PM EDT Impressions 11/12/2024 8:31 PM EDT No evidence of pulmonary embolus. No acute abnormality. Electronically Signed: Jed Machuca MD 11/12/2024 8:31 PM EDT Workstation ID: [id number] Hermann 11/12/2024 8:[address] ANGIOGRAM [...] MD 11/12/2024 8:31 PM EDT Workstation ID: [id number] Vasu Mckeon MD IMG CT ORDERABLES Final Result * COVID-19, FLU A/B, RSV PCR 1 HR TAT - Swab, Nasopharynx (11/12/2024 7:21 PM EDT) Pathologist [facility] COVID19 Not Detected Not Detected - Ref. Range CEPHEID GENEXPERT 11/12/2024 8:24 PM EDT [facility] Influenza A PCR Not Detected Not Detected CEPHEID GENEXPERT 11/12/2024 8:24 PM EDT [facility] Influenza B PCR Not Detected Not Detected CEPHEID GENEXPERT 11/12/2024 8:24 PM EDT [facility] RSV, PCR Not Detected Not Detected CEPHEID GENEXPERT 11/12/2024 8:24 PM EDT [facility] Swab Nasopharyngeal structure / Unknown Collection / Unknown 11/12/2024 7:21 PM EDT 11/12/2024 7:46 PM EDT Vasu Mckeon MD MICROBIOLOGY - GENERAL O RDERABLES Final Result [facility]
[address] [place] [address], * Sodium, Urine, Random - Urine, Clean Catch (11/12/2024 7:20 PM EDT) Pathologist [facility] Sodium, Urine <20 mmol/L 11/13/2024 3:37 AM EDT [facility] Urine Urine specimen obtained by clean catch procedure / Unknown Collection / Unknown 11/12/2024 7:20 PM EDT 11/12/2024 7:46 PM EDT [facility] - 11/13/2024 3:37 AM EDT Reference intervals for random urine have not been established. Clinical usage is dependent upon physician's interpretation in combination with other laboratory tests. us Aaliyah Jha APRN URINE ORDERABLES Final Result [facility]
[address] [place] [address], * Osmolality, Urine - Urine, Clean Catch (11/12/2024 7:20 PM EDT) Osmolality, Urine 837 300 - 1,100 mOsm/kg 11/13/2024 4:00 AM EDT [facility] Urine Urine specimen obtained by clean catch procedure / Unknown Collection / Unknown 11/12/2024 7:20 PM EDT 11/12/2024 7:46 PM EDT us Aaliyah Jha APRN URINE ORDERABLES Final Result [facility]
[address] [place] [address], * Creatinine Urine Random (kidney function) GFR component - Urine, Clean Catch (11/12/2024 7:20 PM EDT) Creatinine, Urine 276.6 mg/dL 11/13/2024 9:46 AM EDT [facility] Urine Urine specimen obtained by clean catch procedure / Unknown Collection / Unknown 11/12/2024 7:20 PM EDT 11/13/2024 3:13 AM EDT [facility]ATORY - 11/13/2024 9:46 AM EDT Reference intervals for random urine have not been established. Clinical usage is dependent upon physician's interpretation in combination with other laboratory tests. us Aaliyah Jha APRN URINE ORDERABLES Final Result Performing Organization Address City/[facility]/ZIP Co de Phone Number [facility]
[address] [place] [address], * Urine Culture - Urine, Urine, Clean Catch (11/12/2024 7:20 PM EDT) Urine Culture No growth [id number] 11/14/2024 12:26 PM EDT [facility] Urine Urine specimen obtained by clean catch procedure / Unknown Collection / Unknown 11/12/2024 7:20 PM EDT 11/13/2024 12:57 AM EDT Vasu Mckeon MD MICROBIOLOGY - GENERAL O RDERABLES Final Result Performing Organization Address City/[facility]/ZIP Co de Phone Number [facility]
[address] [place] [address], * (ABNORMAL) Urinalysis, Microscopic Only - Urine, Clean Catch (11/12/2024 7:20 PM EDT) RBC, UA 0-2 None Seen, 0-2 /HPF 11/12/2024 8:00 PM EDT [facility] WBC, UA 11-20(A) None Seen, 0-2 /HPF 11/12/2024 8:00 PM EDT [facility] Bacteria, UA None Seen None Seen /HPF 11/12/2024 8:00 PM EDT [facility] Squamous Epithelial Cells, UA 3-6(A) None Seen, 0-2 /HPF 11/12/2024 8:00 PM EDT [facility] Hyaline Casts, UA 0-2 None Seen /LPF 11/12/2024 8:00 PM EDT [facility] Methodology Automated Microscopy 11/12/2024 8:00 PM EDT [facility] Urine Urine specimen obtained by clean catch procedure / Unknown Collection / Unknown 11/12/2024 7:20 PM EDT 11/12/2024 7:46 PM EDT us Vasu Mckeon MD URINE ORDERABLES Final R esult [facility]
[address] [place] [address], * (ABNORMAL) Urinalysis With Microscopic If Indicated (No Culture) - Urine, Clean Catch (11/12/2024 7:20 PM EDT) Color, UA Yellow Yellow, Straw 11/12/2024 8:00 PM EDT [facility] Appearance, UA Clear Clear 11/12/2024 8:00 PM EDT [facility] pH, UA 5.5 5.0 - 8.0 11/12/2024 8:00 PM EDT [facility] Specific [place], UA >1.030(H) 1.005 - 1.030 11/12/2024 8:00 PM EDT [facility] Glucose, UA Negative Negative 11/12/2024 8:00 PM EDT [facility] Ketones, UA Negative Negative 11/12/2024 8:00 PM EDT [facility] Bilirubin, UA Negative Negative 11/12/2024 8:00 PM EDT [facility] Blood, UA Negative Negative 11/12/2024 8:00 PM EDT [facility] Protein, UA Trace(A) Negative 11/12/2024 8:00 PM EDT [facility] Leuk Esterase, UA Small (1+)(A) Negative 11/12/2024 8:00 PM EDT [facility] Nitrite, UA Negative Negative 11/12/2024 8:00 PM EDT [facility] Urobilinogen, UA 1.0 E.U./dL 0.2 - 1.0 E.U./dL 11/12/2024 8:00 PM EDT [facility] Urine Urine specimen obtained by clean catch procedure / Unknown Collection / Unknown 11/12/2024 7:20 PM EDT 11/12/2024 7:46 PM EDT Vasu Mckeon MD URINE ORDERABLES Final R esult [facility]
[address] [place] [address], * Ferritin (11/12/2024 7:16 PM EDT) Ferritin 13.80 13.00 - 150.00 ng/mL 11/13/2024 3:24 AM EDT [facility] Blood Venipuncture / Unknown 11/12/2024 7:16 PM EDT 11/13/2024 2:57 AM EDT Narrative [facility] - 11/13/2024 3:24 AM EDT Results may be falsely decreased if patient taking Biotin. Aaliyah Jha APRN LAB BLOOD ORDERABLES Final Re sult Performing Organization Address City/[facility]/ZIP Co de Phone Number [facility]
[address] [place] [address], * (ABNORMAL) Iron Profile w/o Ferritin (11/12/2024 7:16 PM EDT) Iron 21(L) 37 - 145 mcg/dL 11/13/2024 3:24 AM EDT [facility] Iron Saturation (TSAT) 4(L) 20 - 50 % 11/13/2024 3:24 AM EDT [facility] Transferrin 321 200 - 360 mg/dL 11/13/2024 3:24 AM EDT [facility] TIBC 478 298 - 536 mcg/dL 11/13/2024 3:24 AM EDT [facility] Blood Venipuncture / Unknown 11/12/2024 7:16 PM EDT 11/13/2024 2:57 AM EDT Aaliyahcolleen Jha APRN LAB BLOOD ORDERABLES Final Re sult Performing Organization Address [facility] Co de Phone Number [facility]
[address] [place] [address], * (ABNORMAL) High Sensitivity Troponin T 1Hr (11/12/2024 7:16 PM EDT) HS Troponin T 16(H) <14 ng/L 11/12/2024 7:53 PM EDT [facility] Troponin T Numeric Delta -1 ng/L 11/12/2024 7:53 PM EDT [facility] Troponin T % Delta -6 Abnormal if >/= 20% 11/12/2024 7:53 PM EDT [facility] Blood Line / Unknown 11/12/2024 7: 16 PM EDT 11/12/2024 7:20 PM EDT Narrative [facility] - 11/12/2024 7:53 PM EDT High [...] ORDERABLES Fin al Result Performing Organization Address [facility]/ZIP Co de Phone Number [facility]
[address] [place] [address], * XR Chest 1 View (11/12/2024 6:30 PM EDT) Anatomical Region Laterality Modality Body N/A Radiographic Tatyana ging 11/12/2024 7:00 PM EDT Impressions 11/12/2024 7:02 PM EDT Impression: 1. No acute cardiopulmonary disease. Electronically Signed: Arben Neely MD 11/12/2024 7:02 PM EDT Workstation ID: [id number] Narrative 11/12/2024 7:02 PM EDT XR CHEST [...] MD 11/12/2024 7:02 PM EDT Workstation ID: [id number] Vasu Mckeon MD IMG DIAGNOSTIC IMAGING O RDERABLES Final Result * (ABNORMAL) Vitamin B12 (11/12/2024 5:17 PM EDT) [facility] Vitamin B-12 1,669(H) 211 - 946 pg/mL 11/13/2024 9:54 AM EDT [facility] Blood Venipuncture / Unknown 11/12/2024 5:17 PM EDT 11/13/2024 2:59 AM EDT Narrative [facility] - 11/13/2024 9:54 AM EDT Results may be falsely increased if patient taking Biotin. Aaliyah Jha APRN LAB BLOOD ORDERABLES Final Re sult [facility]
[address] [place] [address], * Folate (11/12/2024 5:17 PM EDT) [facility] Folate >20.00 4.78 - 24.20 ng/mL 11/13/2024 9:54 AM EDT [facility] Blood Venipuncture / Unknown 11/12/2024 5:17 PM EDT 11/13/2024 2:59 AM EDT Narrative [facility] - 11/13/2024 9:54 AM EDT Results may be falsely increased if patient taking Biotin. Aaliyah Jha APRN LAB BLOOD ORDERABLES Final Re sult [facility]
[address] [place] [address], * Scan Slide (11/12/2024 5:17 PM EDT) Anisocytosis Slight/1+ None Seen 11/12/2024 6:07 PM EDT [facility] Hypochromia Slight/1+ None Seen 11/12/2024 6:07 PM EDT [facility] Microcytes Mod/2+ None Seen 11/12/2024 6:07 PM EDT [facility] WBC Morphology Normal Normal 11/12/2024 6:07 PM EDT [facility] Platelet Morphology Normal Normal 11/12/2024 6:07 PM EDT [facility] Blood Venipuncture / Unknown 11/12/2024 5:17 PM EDT 11/12/2024 5:17 PM EDT Vasu Mckeon MD LAB BLOOD ORDERABLES Fin al Result [facility]
[address] [place] [address], [place] [phone] * Magnesium (11/12/2024 5:17 PM EDT) Magnesium 1.9 1.6 - 2.4 mg/dL 11/12/2024 5:51 PM EDT [facility] Blood Venipuncture / Unknown 11/12/2024 5:17 PM EDT 11/12/2024 5:17 PM EDT Vasu Mckeon MD LAB BLOOD ORDERABLES Fin al Result Performing Organization Address City/[facility]/ZIP Co de Phone Number [facility]
[address] [place] [address], * Phosphorus (11/12/2024 5:17 PM EDT) Phosphorus 4.1 2.5 - 4.5 mg/dL 11/12/2024 5:51 PM EDT [facility] Blood Venipuncture / Unknown 11/12/2024 5:17 PM EDT 11/12/2024 5:17 PM EDT Vasu Mckeon MD LAB BLOOD ORDERABLES Fin al Result Performing Organization Address [facility] Co de Phone Number [facility]
[address] [place] [address], * TSH Rfx On Abnormal To Free T4 (11/12/2024 5:17 PM EDT) TSH 2.480 0.270 - 4.200 uIU/mL 11/12/2024 5:51 PM EDT [facility] Blood Venipuncture / Unknown 11/12/2024 5:17 PM EDT 11/12/2024 5:17 PM EDT Vasu Mckeon MD LAB BLOOD ORDERABLES Fin al Result Performing Organization Address City/[facility]/ZIP Co de Phone Number [facility]
[address] [place] [address], * Lipase (11/12/2024 5:17 PM EDT) Lipase 20 13 - 60 U/L 11/12/2024 5:51 PM EDT [facility] Blood Venipuncture / Unknown 11/12/2024 5:17 PM EDT 11/12/2024 5:17 PM EDT Vasu Mckeon MD LAB BLOOD ORDERABLES Fin al Result Performing Organization Address [facility] Phone Number [facility]
[address] [place] [address], * Lactic Acid, Plasma (11/12/2024 5:17 PM EDT) [facility] Lactate 1.6 0.5 - 2.0 mmol/L 11/12/2024 5:49 PM EDT [facility] Comment:Falsely depressed re sults may occur on samples drawn from patients receiving N-Acetylcysteine (NAC) or Metamizole. Blood Venipuncture / Unknown 11/12/2024 5:17 PM EDT 11/12/2024 5:17 PM EDT Vasu Mckeon MD LAB BLOOD ORDERABLES Fin al Result Performing Organization Address [facility] Phone Number [facility]
[address] [place] [address], * (ABNORMAL) D-dimer, Quantitative (11/12/2024 5:17 PM EDT) [facility] D-Dimer, Quantitative 10.36(H) 0.00 - 0.66 MCGFEU/mL 11/12/2024 6:00 PM EDT [facility] Blood Venipuncture / Unknown 11/12/2024 5:17 PM EDT 11/12/2024 5:17 PM EDT Narrative [facility] - 11/12/2024 6:00 PM EDT According to the assay structural engineering drafting officer's published package insert, a normal (<0.50 MCGFEU/mL) D-dimer result in conjunction with a non-high clinical probability assessment, excludes deep vein thrombosis (DVT) and pulmonary embolism (PE) with high sensitivity. D-dimer values increase with age and this can make VTE exclusion of an older population difficult. To address this, the [employer], based on best available [...] MCGFEU/mL. Vasu Mckeon MD LAB BLOOD ORDERABLES [facility] al Result [facility]
[address] [place] [address] * (ABNORMAL) CBC Auto Differential (11/12/2024 5:17 PM EDT) [facility] WBC 5.82 3.40 - 10.80 10*3/mm3 11/12/2024 6:07 PM EDT [facility] RBC 4.33 3.77 - 5.28 10*6/mm3 11/12/2024 6:07 PM EDT [facility] Hemoglobin 9.0(L) 12.0 - 15.9 g/dL 11/12/2024 6:07 PM EDT [facility] Hematocrit 32.5(L) 34.0 - 46.6 % 11/12/2024 6:07 PM EDT [facility] MCV 75.1(L) 79.0 - 97.0 fL 11/12/2024 6:07 PM EDT [facility] MCH 20.8(L) 26.6 - 33.0 pg 11/12/2024 6:07 PM EDT [facility] MCHC 27.7(L) 31.5 - 35.7 g/dL 11/12/2024 6:07 PM EDT [facility] RDW 19.1(H) 12.3 - 15.4 % 11/12/2024 6:07 PM EDT [facility] RDW-SD 51.8 37.0 - 54.0 fl 11/12/2024 6:07 PM EDT [facility] MPV 9.5 6.0 - 12.0 fL 11/12/2024 6:07 PM EDT [facility] Platelets 240 140 - 450 10*3/mm3 11/12/2024 6:07 PM EDT [facility] Neutrophil % 58.8 42.7 - 76.0 % 11/12/2024 6:07 PM EDT [facility] Lymphocyte % 26.5 19.6 - 45.3 % 11/12/2024 6:07 PM EDT [facility] Monocyte % 7.6 5.0 - 12.0 % 11/12/2024 6:07 PM EDT [facility] Eosinophil % 5.5 0.3 - 6.2 % 11/12/2024 6:07 PM EDT [facility] Basophil % 0.7 0.0 - 1.5 % 11/12/2024 6:07 PM EDT [facility] Immature Grans % 0.9(H) 0.0 - 0.5 % 11/12/2024 6:07 PM EDT [facility] Neutrophils, Absolute 3.43 1.70 - 7.00 10*3/mm3 11/12/2024 6:07 PM EDT [facility] Lymphocytes, Absolute 1.54 0.70 - 3.10 10*3/mm3 11/12/2024 6:07 PM EDT [facility] Monocytes, Absolute 0.44 0.10 - 0.90 10*3/mm3 11/12/2024 6:07 PM EDT [facility] Eosinophils, Absolute 0.32 0.00 - 0.40 10*3/mm3 11/12/2024 6:07 PM EDT [facility] Basophils, Absolute 0.04 0.00 - 0.20 10*3/mm3 11/12/2024 6:07 PM EDT [facility] Immature Grans, Absolute 0.05 0.00 - 0.05 10*3/mm3 11/12/2024 6:07 PM EDT [facility] nRBC 0.0 0.0 - 0.2 /100 WBC 11/12/2024 6:07 PM EDT [facility] Blood Venipuncture / Unknown 11/12/2024 5:17 PM EDT 11/12/2024 5:17 PM EDT Narrative [facility] - 11/12/2024 6:07 PM EDT Appended report. These results have been appended to a previously verified report. Vasu Mckeon MD LAB BLOOD ORDERABLES Fin al Result [facility]
[address] [place] [address], * Light Blue Top (11/12/2024 5:17 PM EDT) Extra Tube Hold for add-ons. 11/12/2024 5:31 PM EDT [facility] Comment:Auto resulted Blood Venipuncture / Unknown 11/12/2024 5:17 PM EDT 11/12/2024 5:17 PM EDT Vasu Mckeon MD LAB BLOOD ORDER ONLY Fin al Result [facility]
[address] [place] [address], * [place] Top (11/12/2024 5:17 PM EDT) Extra Tube Hold for add-ons. 11/12/2024 5:[facility] Comment:Auto resulted. Blood Venipuncture / Unknown 11/12/2024 5:17 PM EDT 11/12/2024 5:17 PM EDT Vasu Mckeon MD LAB BLOOD ORDER ONLY Fin al Result Performing Organization Address City/[facility]/ZIP Co de Phone Number [facility]
[address] [place] [address], [place] [phone] * Gold Top - SST (11/12/2024 5:17 PM EDT) Extra Tube Hold for add-ons. 11/12/2024 5:32 PM EDT [facility] Comment:Auto resulted. Blood Venipuncture / Unknown 11/12/2024 5:17 PM EDT 11/12/2024 5:17 PM EDT Vasu Mckeon MD LAB BLOOD ORDER ONLY Fin al Result Performing Organization Address [facility] Co de Phone Number [facility]
[address] [place] [address], [place] [phone] * Lavender Top (11/12/2024 5:17 PM EDT) Extra Tube hold for add-on 11/12/2024 5:31 PM EDT [facility] Comment:Auto resulted Blood Venipuncture / Unknown 11/12/2024 5:17 PM EDT 11/12/2024 5:17 PM EDT Vasu Mckeon MD LAB BLOOD ORDER ONLY Fin al Result Performing Organization Address City/[place] [facility]/ZIP Co de Phone Number [facility]
[address] [place] [address], [place] [phone] * Green Top (Gel) (11/12/2024 5:17 PM EDT) Extra Tube Hold for add-ons. 11/12/2024 5:31 PM EDT [facility] Comment:Auto resulted. Blood Venipuncture / Unknown 11/12/2024 5:17 PM EDT 11/12/2024 5:17 PM EDT Vasu Mckeon MD LAB BLOOD ORDER ONLY Fin al Result Performing Organization Address City/[facility]/ZIP Co de Phone Number [facility]
[address] [place] [address], * (ABNORMAL) High Sensitivity Troponin T (11/12/2024 5:17 PM EDT) [facility] HS Troponin T 17(H) <14 ng/L 11/12/2024 5:51 PM EDT [facility] Blood Venipuncture / Unknown 11/12/2024 5:17 PM EDT 11/12/2024 5:17 PM EDT Narrative [facility] - 11/12/2024 5:51 PM EDT High [...] Fin al Result Performing Organization Address City/[facility]/ZIP Co de Phone Number [facility]
[address] [place] [address], * BNP (11/12/2024 5:17 PM EDT) [facility] proBNP 247.0 0.0 - 900.0 pg/mL 11/12/2024 5:51 PM EDT [facility] Blood Venipuncture / Unknown 11/12/2024 5:17 PM EDT 11/12/2024 5:17 PM EDT Narrative [facility] - 11/12/2024 5:51 PM EDT This [...] MD LAB BLOOD ORDERABLES Fin al Result [facility]
[address] [place] [address], * (ABNORMAL) Comprehensive Metabolic Panel (11/12/2024 5:17 PM EDT) Glucose 96 65 - 99 mg/dL 11/12/2024 5:51 PM EDT [facility] BUN 24.7(H) 8.0 - 23.0 mg/dL 11/12/2024 5:51 PM EDT [facility] Creatinine 1.06(H) 0.57 - 1.00 mg/dL 11/12/2024 5:51 PM EDT [facility] Sodium 139 136 - 145 mmol/L 11/12/2024 5:51 PM EDT [facility] Potassium 4.4 3.5 - 5.2 mmol/L 11/12/2024 5:51 PM EDT [facility] Chloride 101 98 - 107 mmol/L 11/12/2024 5:51 PM EDT [facility] CO2 27.9 22.0 - 29.0 mmol/L 11/12/2024 5:51 PM EDT [facility] Calcium 9.1 8.6 - 10.5 mg/dL 11/12/2024 5:51 PM EDT [facility] Total Protein 6.4 6.0 - 8.5 g/dL 11/12/2024 5:51 PM EDT [facility] Albumin 4.0 3.5 - 5.2 g/dL 11/12/2024 5:51 PM EDT [facility] ALT (SGPT) 15 1 - 33 U/L 11/12/2024 5:51 PM EDT [facility] AST (SGOT) 27 1 - 32 U/L 11/12/2024 5:51 PM EDT [facility] Alkaline Phosphatase 113 39 - 117 U/L 11/12/2024 5:51 PM EDT [facility] Total Bilirubin 0.2 0.0 - 1.2 mg/dL 11/12/2024 5:51 PM EDT [facility] Globulin 2.4 gm/dL 11/12/2024 5:51 PM EDT [facility] Comment:Calculated Result A/G Ratio 1.7 g/dL 11/12/2024 5:51 PM T [facility] BUN/Creatinine Ratio 23.3 7.0 - 25.0 11/12/2024 5:51 PM T [facility] Anion Gap 10.1 5.0 - 15.0 mmol/L 11/12/2024 5:51 PM T [facility] eGFR 58.1(L) >60.0 mL/min/1.7 3 11/12/2024 5:51 PM T [facility] Blood Venipuncture / Unknown 11/12/2024 5:17 PM EDT 11/12/2024 5:17 PM EDT [facility] - 11/12/2024 5:51 [...] MD LAB BLOOD ORDERABLES Fin al Result [facility]
[address] [place] [address], * ECG 12 Lead Dyspnea (11/12/2024 4:45 [...] hypoxia- Primary Referred by health home care provider Dyspnea on exertion Other dyspnea and respiratory [...] Protocol Open Order & [facility] Electrolyte Replacement Protocol Algorithm to View [...] from light. 0940 (Given - Provider: Laine Hernandze, CLARENCE) 0730 (Given - Provider: Luz Maria Neely, CLARENCE)0930 (Canceled Entry - Provider: Luz Maria Neely, MENTAL HEALTH ADVANCED PRACTICE NURSE) bumetanide (BUMEX) injection 2 mg (COMPLETED) 2 [...] Education 2252 (Given - Provider: Narciso Melton, MENTAL HEALTH ADVANCED PRACTICE NURSE) ipratropium-albuterol (DUO-NEB) nebulizer solution 3 mL 3 mL, Nebulization, 4 Times Daily - RT, First dose on Sat11/13/24 at 0830, Include Respiratory Treatment Education 0940 (Given - Provider: Laine Hernandez MENTAL HEALTH ADVANCED PRACTICE NURSE)1334 (Given - Provider: Laine Hernandez MENTAL HEALTH ADVANCED PRACTICE NURSE)1651 (Given - Provider: Laine Hernandez MENTAL HEALTH ADVANCED PRACTICE NURSE)2019 (Given - Provider: Eusebio Jade, MEDICAL IMAGING TECH) 0729 (Given - Provider: Luz Maria Neely, MENTAL HEALTH ADVANCED PRACTICE NURSE)0733 (Canceled Entry - Provider: Luz Maria Neely RRT)1335 (Given - Provider: Luz Maria Neely, MENTAL HEALTH ADVANCED PRACTICE NURSE)1608 (Not Given - Provider: Luz Maria Neely [...] dose 1133 (Given - Provider: Shady Palmer, [facility]) venlafaxine XR (EFFEXOR-XR) 24 hr capsule 150 [...] Protocol Open Order & [facility] Electrolyte Replacement Protocol Algorithm to View [...] Protocol Open Order & [facility] Electrolyte Replacement Protocol Algorithm to View [...] diarrhea documented in this encounter Care Teams Manager Baby Relationship Specialty Start Date End Date Sandra Orozco APRN [address] [place] [address] [place] [address] PCP - General Internal Medicine 05/11/24 documented as of this encounter
--- OUTSIDE RECORDS SUMMARY | 2024-11-26 11:00 | XMS_ITS | Encounter Summary ---
Author Organization [facility] ystem Address [address] [place] [address] Care Team Providers Care Application Integration Engineer Name Role Phone Sandra Orozco APRN Primary Care Provider [phone] Reason for Visit * Reason Comments Shortness of Breath Encounter Details Date Type Department Care Team (Latest Contact Info) Description 11/26/2024 11:00 AM EDT Office Visit [facility] CARDIOLOGY [address] [facility] [address], [place] [address] Dina Solano APRN [address] [facility] [address] [place] [address] Paroxysmal atrial fibrillation (Primary Dx); History of [...] Recorded In the past 12 months has [employer], gas, oil, or water company threatened [...] care, and heating? Not very hard 11/13/2024 [facility] [place] of Occupat ional Health - Occupational Stress [...] GED or equivalent No 11/13/2024 Preferred Language Thai 11/13/2024 PHQ-2 Answer Date Recorded Patient Health [...] 11:00 AM EDTAssociated Problem(s): Paroxysmal atrial fibrillation [id number] Continue Xarelto 15 mg p.o. daily Continue [...] Sandra Orozco APRN Date: 11/26/2024 Department: Minh [facility] CARDIOLOGY [address] [facility] [address] [facility] [id number] Chief Complaint: Chief Complaint Patient presents with Shortness of Breath Problem list: Paroxysmal atrial fibrillation/History of ischemic CVA/TIAs status post loop explant [id number] 5 (Female, Age, CVA, PAD) PAF noted [...] to admission. She continues to see her stock trader and has a follow-up appointment scheduled. She [...] Plan Assessment & Plan Paroxysmal atrial fibrillation [id number] Continue Xarelto 15 mg p.o. daily Continue [...] 3 months (around 02/25/2025). Patient or patient auto service representative verbalized consent for the use of Ambient Listening during the visit with Dina Solano APRN for chart documentation. 11/26/2024 10:42 EDT Dina Solano APRN [facility] Cardiology documented in this encounter Plan of Treatment Upcoming Encounters Date Type Department Care Team (Late st Contact Info) Description 02/16/2025 11:00 AM EST Office Visit [facility] CARDIOLOGY [address] [facility] [address] [place] [address] Dina Solano APRN [address] [facility] [address] [place] [address] Scheduled Orders Name Type Priority Associated Diagnoses [...] APRN LAB BLOOD ORDERABLES Final Re sult [facility]
[address] [place] [address], documented in this encounter Visit Diagnoses Diagnosis Paroxysmal atrial fibrillation- Primary Atrial fibrillation History of CVA (cerebrovascular accident) Transient ischemic attack (TIA), and cerebral infarction without residual deficits Chronic respiratory failure with hypoxia Hyperlipidemia LDL goal <55 Prediabetes Other abnormal glucose Anemia, unspecified type Chronic venous insufficiency of lower extremity Chronic obstructive pulmonary disease, unspecified COPD type documented in this encounter Care Teams Application Integration Engineer Relationship Specialty Start Date End Date Sandra Orozco APRN [address] [address] PCP - General Internal Medicine 05/11/24 documented as of this encounter
--- OUTSIDE RECORDS SUMMARY | 2025-01-01 10:42 | XMS_ITS | Encounter Summary ---
Author Organization [facility] ystem Address [address] [place] [address] Care Team Providers Care Ramp And Cargo Supervisor Name Role Phone Sandra Orozco APRN Primary Care Provider Encounter Details Date Type Department Care Team (Late st Contact Info) Description 11/30/2024 Readmission Management [facility] [address] [place] [address] Christiano Gresham, RN Social History Tobacco Use Types Packs/Day Years Used Date Smoking Tobacco: Former Cigarettes 2 45 Q uit: 05/10/2023 Smokeless Tobacco: Never Comments:Liked to smoke Alcohol Use Standard Drinks/Week Comments Not Currently 0 (1 standard drink = 0.6 oz pur e alcohol) former [facility] Utilities Answer Date Recorded In the past 12 months has [employer], gas, oil, or water [employer] threatened to shut off services in your [...] hard 11/13/2024 [facility] - Occupational Stress Questionnaire Answer [...] CHF Week 1 Survey Flowsheet Row Responses [facility] Does the patient have one of the following disease processes/diagnoses(primary or secondary)? CHF CHF Week 1 attempt successful? No Unsuccessful attempts Attempt 2 Christiano Romero - Registered Nurse documented in this encounter Plan of Treatment Upcoming Encounters Date Type Department Care Team (Late st Contact Info) Description 02/16/2025 11:00 AM EST Office Visit [facility] CARDIOLOGY [address] [facility] [address] [place] [address] Dina Solano APRN [address] [facility] [address] [place] [address] documented as of this encounter Visit Diagnoses Not on filedocumented in this encounter Care Teams Ramp And Cargo Supervisor Relationship Specialty Start Date End Date Sandra Orozco APRN [address] [address] PCP - General Internal Medicine 05/11/24 documented as of this encounter
--- OUTSIDE RECORDS SUMMARY | 2025-01-01 10:42 | XMS_ITS | Encounter Summary ---
[facility] Address [address] [place] [address] Care Team Providers Care Lumpia Wrapper Maker Name Role Phone Sandra Orozco APRN Primary Care Provider [phone] Encounter Details Date Type Department Care Team (Latest Contact Info) Description 11/26/2024 Travel Social History Tobacco Use Types Packs/Day Years Used Date Smoking Tobacco: Former Cigarettes 2 45 Q uit: 05/10/2023 Smokeless Tobacco: Never Comments:Liked to smoke Alcohol Use Standard Drinks/Week Comments Not Currently 0 (1 standard drink = 0.6 oz pur e alcohol) former [facility] Utilities Answer Date Recorded In the past 12 months has [employer], gas, oil, or water company threatened [...] very hard 11/13/2024 [facility] [place] of Occupat ional Health - Occupational Stress [...] GED or equivalent No 11/13/2024 Preferred Language Congolese 11/13/2024 PHQ-2 Answer Date Recorded Patient Health [...] Description 02/16/2025 11:00 AM EST Office Visit [facility] CARDIOLOGY [address] [facility] [address] [address] Dina Solano APRN [address] [facility] [address] [address] documented as of this encounter Visit Diagnoses Not on filedocumented in this encounter Care Teams Lumpia Wrapper Maker Relationship Specialty Start Date End Date Sandra Orozco APRN [address] [place] [address] [address] PCP - General Internal Medicine 05/11/24 documented as of this encounter
--- OUTSIDE RECORDS SUMMARY | 2025-01-01 10:42 | XMS_ITS | Data Portability ---
Author Organization [facility] NASEEM Chandler DEL RIO CLOSED Address [address] [facility] [address] [place] [address] Care Team Providers Care Leach Tank Tender Name Role Phone GLADIS DELCID Primary Care Provider [phone] Assessment Encounter Date Assessment Date Assessment LastModified by Organization Details LastModified Time 06/25/2024 06/25/2024 Plan: I have personally reviewed this patient's MOHSEN report as per [place] medical board guidelines and it was found [...] reviewed this patient's MOHSEN report as per [place] medical board guidelines and it was found [...] reviewed this patient's MOHSEN report as per [place] medical board guidelines and it was found [...] mg-acetam inophen 325 mg tablet 2024 025 [facility], [address] [place] [address] [place], [id number], 12/22/2024 11:18:36 hydrocodo ne 7.5 mg-acetam inophen 325 mg tablet 2024 025 [facility], [address] [place] [address], [place], [phone], 12/22/2024 11:18:36 hydrocodo ne 5 mg-acetam inophen 325 mg tablet 2024 025 [facility], [address] [place] [address], [place], [phone], 10/27/2024 11:27:38 hydrocodo ne 5 mg-acetam inophen 325 mg tablet 2024 025 [facility], [address] [place] [address], [place], [id number], 10/27/2024 11:27:38 hydrocodo ne 5 mg-acetam inophen 325 mg tablet 2024 025 [facility], [address] [place] [address] [place], [id number], 08/25/2024 11:08:17 hydrocodo ne 5 mg-acetam inophen 325 mg tablet 2024 025 [facility], [address], [id number], 08/25/2024 11:08:18 hydrocodo ne 5 mg-acetam inophen 325 mg tablet 2024 025 [facility] 591, [address], [address], 06/25/2024 11:29:57 hydrocodo ne 5 mg-acetam inophen 325 mg tablet 2024 025 [facility] 591, [address], [address], 06/25/2024 11:29:56 Patient TargetsNo targets recorded. Patient InstructionsNo instructions recorded. Reason for Referral None Reported. Results Created Date Observation Date Name Description Value Unit Range Abnormal Flag Note LastModifiedBy Organization Detail LastModifiedTime 08/26/1908/27/2024 HIGH RISK DRUG PANEL gabapentin NEGATI VE NG/mL <1000 normal Not Available [facility] [address] [place], [address], 08/30/2024 17:49:46 08/26/19 25 08/27/2024 HIGH RISK DRUG PANEL pregabalin, qt ur NEGATI VE NG/mL <1000 normal Not Available [facility] [address] [place], [address], 08/30/2024 17:49:46 08/26/19 25 08/27/2024 HIGH RISK DRUG PANEL desmethyltra madol NEGATI VE NG/mL <100 normal Not Available [facility] [address] [place], [address], 08/30/2024 17:49:46 08/26/19 25 08/27/2024 HIGH RISK DRUG PANEL tramadol NEGATI VE NG/mL <100 normal Not Available [facility] [address] [place] [address], [address], 08/30/2024 17:49:46 08/26/19 25 08/27/2024 HIGH RISK DRUG PANEL tapentadol NEGATI VE NG/mL <50 normal Not Available [facility] [address] [place] [address], [address], 08/30/2024 17:49:46 08/26/19 25 08/27/2024 HIGH RISK DRUG PANEL nortapentado l NEGATI VE NG/mL <50 normal Not Available [facility] [address] [place] [address], [address], 08/30/2024 17:49:46 08/26/19 25 08/27/2024 HIGH RISK DRUG PANEL ethyl glucuronide NEGATI VE NG/mL <500 normal Not Available [facility] [address] [place] [address], [address], 08/30/2024 17:49:46 08/26/19 25 08/27/2024 HIGH RISK DRUG PANEL ethyl sulfate NEGATI VE NG/mL <100 normal Not Available [facility] [address] [place] [address], [address], 08/30/2024 17:49:46 08/26/19 25 08/27/2024 HIGH RISK DRUG PANEL buprenorphin e NEGATI VE NG/mL <2 normal Not Available [facility] [address] [place] [address], [address], 08/30/2024 17:49:46 08/26/19 25 08/27/2024 HIGH RISK DRUG PANEL norbuprenorp shadi NEGATI VE NG/mL <2 normal Not Available [facility] [address] [place] [address], [address], 08/30/2024 17:49:46 08/26/19 25 08/27/2024 HIGH RISK DRUG PANEL naloxone NEGATI VE NG/mL <2 normal Not Available [facility] [address] [place] [address], [address], 08/30/2024 17:49:46 08/26/19 25 08/30/2024 HIGH RISK DRUG PANEL amphetamines NEGATI VE NG/mL <500 normal Not Available [facility] [address] [place] [address], [address], 08/30/2024 17:49:46 08/26/19 25 08/30/2024 HIGH RISK DRUG PANEL barbiturates NEGATI VE NG/mL <300 normal Not Available [facility] [address] [place] [address], [address], 08/30/2024 17:49:46 08/26/19 25 08/30/2024 HIGH RISK DRUG PANEL benzodiazepi rufus NEGATI VE NG/mL <100 normal Not Available [facility] [address] [place] [address], [address], 08/30/2024 17:49:46 08/26/19 25 08/30/2024 HIGH RISK DRUG PANEL marijuana metabolite NEGATI VE NG/mL <20 normal Not Available [facility] [address] [place] [address], [address], 08/30/2024 17:49:46 08/26/19 25 08/30/2024 HIGH RISK DRUG PANEL cocaine metabolite NEGATI VE NG/mL <150 normal Not Available [facility] [address] [place] [address], [address], 08/30/2024 17:49:46 08/26/19 25 08/30/2024 HIGH RISK DRUG PANEL methadone metabolite NEGATI VE NG/mL <100 normal Not Available [facility] [address] [place] [address], [address], 08/30/2024 17:49:46 08/26/19 25 08/30/2024 HIGH RISK DRUG PANEL opiates POSITI VE NG/mL <100 abnormal Not Available [facility] [address] [place], [address], 08/30/2024 17:49:46 08/26/19 25 08/30/2024 HIGH RISK DRUG PANEL codeine NEGATI VE NG/mL <50 normal Not Available [facility] [address] [place] [address], [address], 08/30/2024 17:49:46 08/26/19 25 08/30/2024 HIGH RISK DRUG PANEL hydrocodone 3424 NG/mL <50 high Not Available [facility] [address] [place] [address], [address], 08/30/2024 17:49:46 08/26/19 25 08/30/2024 HIGH RISK DRUG PANEL hydromorphon e 186 NG/mL <50 high Not Available [facility] [address] [place] [address], [address], 08/30/2024 17:49:46 08/26/19 25 08/30/2024 HIGH RISK DRUG PANEL morphine NEGATI VE NG/mL <50 normal Not Available [facility] [address] [place] [address], [address], 08/30/2024 17:49:46 08/26/19 25 08/30/2024 HIGH RISK DRUG PANEL norhydrocodo ne 1612 NG/mL <50 high Not Available [facility] [address] [place] [address], [address], 08/30/2024 17:49:46 08/26/19 25 08/30/2024 HIGH RISK DRUG PANEL oxycodone NEGATI VE NG/mL <100 normal Not Available [facility] [address] [place] [address], [address], 08/30/2024 17:49:46 08/26/19 25 08/30/2024 HIGH RISK DRUG PANEL phencyclidin e NEGATI VE NG/mL <25 normal Not Available [facility] [address] [place] [address], [address], 08/30/2024 17:49:46 08/26/19 25 08/30/2024 HIGH RISK DRUG PANEL creatinine 226.2 mg/dL > or = 20.0 normal Not Available [facility] [address] [place], [address], 08/30/2024 17:49:46 08/26/19 25 08/30/2024 HIGH RISK DRUG PANEL specific gravity 1.012 > or = 1.003 normal Not Available [facility] [address] [place], [address], 08/30/2024 17:49:46 08/26/1908/30/2024 HIGH RISK DRUG PANEL pH 5.7 4.5-9. 0 normal Not Available [facility] [address] [place], [address], 08/30/2024 17:49:46 08/26/19 25 08/30/2024 HIGH RISK DRUG PANEL oxidant NEGATI VE mcg/m L <200 normal Not Available [facility] [address] [place], [address], 08/30/2024 17:49:46 08/26/1908/30/2024 HIGH RISK DRUG PANEL [...] condi tions . Opiat es Notes : Kaibeto codon e, Norhy droco done, Kaibeto morph one detec abbie is consi stent with the use of the drug Kaibeto codon e. Kaibeto morph one detec abbie is consi stent with the use of the drug Kaibeto morph one. Kaibeto morph one can be a presc ribed drug and is also a metab olite of Kaibeto codon e. Confi rmati on testi ng Perfo rmed at: [facility] [address] [place] [address] Labor atory Direc tor: ZEUS DALTON George PEGUERO S CLIA: [id number] LDT Notes : Confi rmati on tests [...] 8am to 10pm EST Not Available [facility] [address] [place] [address], [address], 08/30/2024 17:49:46 08/26/19 25 08/30/2024 HIGH RISK DRUG PANEL fentanyl NEGATI VE NG/mL <0.5 normal Not Available [facility] [address] [place] [address], [address], 08/30/2024 17:49:46 08/26/19 25 08/30/2024 HIGH RISK DRUG PANEL heroin metabolite, qt ur NEGATI VE NG/mL <10 normal Not Available [facility] [address] [place] [address], [address], 08/30/2024 17:49:46 04/14/19 25 04/14/2024 XR, lumbo sacra l spine , 2 or 3 view, bendi ng only [facility] [address] [place] [address] [place] [address] Kirstieshashi morse Name: MARTHA morse : 959 Rei morse Orderi ng Provid er: LIA MORAES [...] Edin Luke MD on 04/14/19 12:15 PM [email or web address] [facility] [address] [place], [address], 06/23/2024 15:57:27 Result Notes None recorded. Problems Name Problem SNOMED Code Status Onset Date Resolution Date Notes Provider Name and Address Organization Details Recorded Time Low back pain 614843456 Active Status: Active Not Available [facility] 7 06:47:46 Disorder of bone and articular cartilage 948781452 Active 2015 Status: Active Not Available [facility] 6 05:37:02 Lumbosacr al radiculop athy 3030405 Active 2015 From Automated Load;Provi boris: Lux Fernández; atus: Active Not Available [facility] 7 08:30:56 Problem Notes None recorded. Procedures Surgical History Date Name Laterality Status Provider Name and Address Organization Details Recorded Time 04/10/19 Date of Last Mammogram completed Amira Hogan [facility] 05/04/2024 14:53:23 tonsillectomy completed [facility] 06/29/2021 11:07:23 partial hysterectomy completed [facility] 06/29/2021 11:07:41 cholecystectomy completed [facility] 06/29/2021 11:07:49 Unlisted px accessory sinus completed Kailey Castellanodie [facility] 06/29/2021 11:08:12 Unlisted px phrnx adnd/tnsl completed Kailey Castellanodie [facility] 06/29/2021 11:08:24 procedure on vein completed Kailey Castellanodie Dian [facility] 06/29/2021 11:08:40 Appendectomy completed Amira Samira [facility] 05/04/2024 14:53:09 Imaging Results None recorded. Procedure [...] Not Available [facility] 6 12:52:49 [id number] Celebrex medicatio n Not available Not available Not available 02/03/20162011 60090 7 RxNorm Comme nt: Creat ed By: Storm HigginsC reate d Date: 2011 10:08 :34 AM; Not Available [facility] 6 05:46:24 463706 Levaquin medicatio n Not available Not available Not available 02/03/20162011 31173 2 RxNorm Comme nt: Creat ed By: Storm HigginsC reate d Date: 2011 10:07 :37 AM; Not Available [facility] 6 08:06:37 558897 Macrobid medicatio n Not available Not available Not available 02/03/20162011 50697 1 RxNorm Comme nt: Creat ed By: Storm HigginsC reate d Date: 2011 10:08 :04 AM; Not Available [facility] 6 08:06:37 289018 Product containin g penicilli n (product) medicatio n Not available Not available Not available 06/29/2021 22970 8001 SNOMED Kailey Valerie null, [facility] 2 11:02:22 713182 gabapenti n medicatio n Not available Not available Not available 06/29/2021 54700 RxNorm Kailey Valerie null, [facility] 2 11:02:39 853892 leflunomi de medicatio n Not available Not available Not available 06/29/2021 62909 RxNorm Kailey Valerie [facility] 2 11:02:54 831344 Naprosyn medicatio n Not available Not available Not available 06/29/2021 2 RxNorm [facility] 2 11:03:06 707160 dextromet horphan hydrobrom mónica medicatio n Not available Not available Not available 05/04/2024 22423 0 RxNorm Amira Hogan [facility] 5 15:09:56 772267 Omnicef medicatio n Not available Not available Not available 05/04/2024 34182 RxNorm Amira Hogan [facility] 5 15:10:19 826808 nortripty line medicatio n Not available Not available Not available 05/04/2024 7531 RxNorm Amira Hogan [facility] 5 15:10:37 259725 Lyrica medicatio n Not available Not available Not available 05/04/2024 45580 1 RxNorm Amira Hogan [facility] 5 15:10:45 Medications Name Sig Start Date [...] Updated DateTime 5 152.4 cm 35.3 kg/m2 09523.4 3 g 69 /min 86 % 86 % 110/50 mm[Hg] Amira Hogan [facility] 5 15:03:21 Date Recorded Body height Body mass index (BMI) Body weight Pain severity - 0-10 verbal numeric rating [Score] - Reported Oxygen saturation Oxygen saturation in Arterial blood by Pulse oximetry Inhaled oxygen flow rate Provider Name and Address Organization Details Last Updated DateTime 5 152.4 cm 35.7 kg/m2 00880.4 g 8 94 % 94 % 2 L/min [facility] 5 11:11:53 Date Recorded Body height Body mass index (BMI) Body weight Pain severity - 0-10 verbal numeric rating [Score] - Reported Oxygen saturation Oxygen saturation in Arterial blood by Pulse oximetry Inhaled oxygen flow rate Heart rate Systolic And Diastolic Provider Name and Address Organization Details Last Updated DateTime 5 152.4 cm 34.8 kg/m2 38348.4 4 g 9 94 % 94 % 1 L/min 79 /min 122/64 mm[Hg] [facility] 5 10:45:12 Date Recorded Body height Body mass index (BMI) Body weight Pain severity - 0-10 verbal numeric rating [Score] - Reported Oxygen saturation Oxygen saturation in Arterial blood by Pulse oximetry Heart rate Systolic And Diastolic Provider Name and Address Organization Details Last Updated DateTime 5 152.4 cm 34.8 kg/m2 85180.4 4 g 6 93 % 93 % 82 /min 122/66 mm[Hg] Malena Sotomayor [facility] 5 10:51:07 Date Recorded Body height Body mass index (BMI) Body weight Pain severity - 0-10 verbal numeric rating [Score] - Reported Oxygen saturation Oxygen saturation in Arterial blood by Pulse oximetry Inhaled oxygen flow rate Heart rate Systolic And Diastolic Provider Name and Address Organization Details Last Updated DateTime 5 152.4 cm 35 kg/m2 01263.0 3 g 9 90 % 90 % 2 L/min 73.02 /min 118/64 mm[Hg] Blanca Gannon [facility] 10:50:52 Social History Question Answer Notes LastModified by Organizat ion Details LastModified Time Tobacco Smoking Status Former Smoker [facility] 11/19/2023 14:27:06 What Was The Date Of [...] 06/29/2021 Are you currently employed? No disabled [email or web address] Information not available 05/04/2024 Mental Status None recorded. Family History Relationship Description Onset Age of this Age Resolved Age Notes LastModified by Organization Details LastModified Time Unspecified Relation Malignant neoplastic disease [email or web address] Not available 04/12 14:49:35 Unspecified Relation Diabetes mellitus [email or web address] Not available 04/12 14:49:35 Mother Familial cancer of breast [email or web address] Not available 04/12 14:49:35 Mother Malignant neoplasm of pancreas [email or web address] Not available 2024 14:51:13 Mother Chronic obstructive pulmonary disease [email or web address] Not available 2024 14:51:40 Father Hypercholest erolemia [email or web address] Not available 2024 14:51:58 Medical History Condition [...] Y Osteoporosis/Osteopenia Y Meningitis N Heart Attack (MS) N Ulcers N Mental Illness Y Diabetes [...] ICD10 Code Diagnosis IMO Codes Diagnosis Note [id number] LUX FERNÁNDEZ MD [facility] [address] [place] [address] 01/18/2020 12:49:41 01/18/2020 15:14:53 Lumbar radiculopathy 331401499 M54.16 Time spent reviewing images, discussing the diagnosis and coordinati ng care: 30min [id number] DILIP BILL PA-C [facility] [address] [place] [address] 06/29/2021 10:15:51 07/04/2021 09:16:52 Lumbar radiculopathy 214808787 M54.16 [id number] GLENDA TUTTLE PA-C [facility] [address] [place] [address] 11/20/2021 10:07:54 11/27/2021 14:55:22 Lumbar spondylosis 077869795 M47.896 [id number] LUX FERNÁNDEZ MD SURGERY SCHEDULE [address] [place] [address] 02/09/2022 09:11:14 02/09/2022 10:30:20 [id number] LUX FERNÁNDEZ MD [facility] [address] [place] [address] 02/14/2022 13:50:04 02/26/2022 16:15:54 [id number] LUX FERNÁNDEZ MD [facility] [address] [place] [address] 03/15/2022 09:39:55 03/16/2022 16:35:55 Postoperative care 314923396 Z48.89 [id number] UJANITA VALDERRAMA APRN [facility] [address] [place] [address] 10/03/2023 12:25:46 10/04/2023 04:49:26 Lumbar radiculopathy 736325250 M54.16 Compressio n fracture of lumbar spine 412777211 M48.56XA Impairment of balance 38 9367108 R26.89 Poor manual dexterity 30 2513910 R29.898 [id number] LIA MORAES MD SURGERY SCHEDULE [address] [place] [address] 11/01/2023 13:01:26 11/05/2023 10:00:09 [id number] RAOUL KINSEY MD [facility] CLOSED [address] [place] [address] 1 11/19/2023 13:39:01 11/19/2023 15:00:53 Chronic low back pain 047568213 M54.50 Degenerati on of lumbar intervertebral disc 74279176 M51.36 Spinal hilda nosis of lumbar region 36563147 M48.062 [id number] RAOUL KINSEY MD [facility] CLOSED [address] [place] [address] 11/26/2023 12:42:31 11/26/2023 12:56:48 Chronic low back pain 229173413 M54.50 Degenerati on of lumbar intervertebral disc 96320186 M51.36 Spinal hilda nosis of lumbar region 12072893 M48.062 [id number] BIANCA ESPAÑA PA-C [facility] [address] [facility] [facility] [address] [place] [address] 11/26/2023 13:56:01 11/27/2023 04:57:02 Postoperative visit 412102098 Z48.89 [id number] RAOUL KINSEY MD [facility] CLOSED [address] [place] [address] 12/24/2023 12:33:05 12/24/2023 13:02:45 Chronic low back pain 662337431 M54.50 The prescripti on to be filled on 12/27/23 was cancelled. The prescripti on sent to [facility] was cancelled. Degenerati on of lumbar intervertebral disc 90733026 M51.362 Spinal hilda nosis of lumbar region 49483271 M48.062 [id number] BIANCA ESPAÑA PA-C [facility] [address] [facility] [address] [place] [address] 01/10/2024 09:40:04 01/11/2024 04:31:11 Lumbar radiculopathy 904039939 M54.16 [id number] RAOUL KINSEY MD [facility] MED[facility]INE CLOSED [address] [place] [address] 02/20/2024 12:35:26 02/20/2024 12:58:34 Chronic low back pain 581418388 M54.50 Degenerati on of lumbar intervertebral disc 26922172 M51.362 Spinal hilda nosis of lumbar region 23966221 M48.062 [id number] BIANCA ESPAÑA PA-C [facility] [address] [facility] [address] [place] [address] 04/14/2024 13:13:45 04/15/2024 08:29:03 Lumbar radiculopathy 570852563 M54.16 [id number] RAOUL KINSEY MD [facility]IN MED[facility]INE CLOSED [address] [place] [address] 04/16/2024 11:04:40 04/16/2024 11:22:08 Chronic low back pain 959643163 M54.50 Degenerati on of lumbar intervertebral disc 85929385 M51.362 Spinal hilda nosis of lumbar region 91047708 M48.062 [id number] NIHARIKA BOCANEGRA APRN BREAST SURGERY SB [address] [place] [address] 1 05/04/2024 14:30:28 05/10/2024 04:08:11 Inversion of right nipple 9131350252 8761464 N64.59 Patient and I reviewed her medical [...] an as-needed basis. Decreased capillary filling time 71219101 R94.39 [id number] RAOUL KINSEY MD [facility]IN MEDICINE CLOSED [address] [place] [address] 1 06/25/2024 11:02:23 06/25/2024 11:26:16 Chronic low back pain 499190658 M54.50 Degenerati on of lumbar intervertebral disc 53772496 M51.362 Spinal hilda nosis of lumbar region 90347434 M48.062 [id number] RAOUL KINSEY MD PAIN MEDICINE [address] [place] [address] 1 08/25/2024 10:26:44 08/25/2024 10:55:10 Chronic low back pain 397349749 M54.50 Degenerati on of lumbar intervertebral disc 75963584 M51.362 Spinal hilda nosis of lumbar region 19835960 M48.062 [id number] RAOUL KINSEY MD PAIN MEDICINE [address] [place] [address] 10/27/2024 10:42:37 10/27/2024 11:09:07 Chronic low back pain 803418301 M54.50 Degenerati on of lumbar intervertebral disc 36337994 M51.362 Spinal hilda nosis of lumbar region 93331348 M48.062 [id number] RAOUL KINSEY MD PAIN MEDICINE [address] [place] [address] 12/22/2024 10:37:41 12/22/2024 10:59:26 Chronic low back pain 749792617 M54.50 Degenerati on of lumbar intervertebral disc 09698497 M51.362 Spinal hilda nosis of lumbar region 20581602 M48.062 Health Concerns Section Related Observation LastModified by Organization Detai ls LastModified Time None Recorded Concern Status LastModified by Organization Details LastModified Time None Recorded Advance Directives Directive None Recorded Payers Insurance Date Sequence Insurance Name Policy Number Policy Sanchez Covered Member ID Sanchez Member ID Guarantor Name 12/19/2024 1 [place] Casi Cruz [id number] Casi Cruz 10/15/2023 2 COMBINED INSURANCE - [employer] (MEDICARE SUPPLEMENT) Casi Cruz [id number] Casi Cruz Notes Date Note Type Note [...] Her mammogram was completed last month at [facility] (images and reports in PACS), resulted [...] = 3.85% by elisabeth Kline. 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 CBD-Denied. 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 She states she does take an qtnn-jgr-bitrzaj stool softener/laxative. She does not want to use anything regularly. The pt is sleeping approximately 2-3 hours per night. The pt is not working. The pt reports that she has not fallen since her last ov. The pt ambulates without an AD. The pt is accompanied by a friend at today s visit.Etoh-Denied. Tobacco-Denied. CBD-Denied. RAOUL KINSEY MD [address] [place] [address], [phone], [facility] 08/25/2024 11:07:39 10/27/2024 text/html The pt complains [...] bladder-leaks. She states she does take an nvrw-lwh-wozkljl stool softener/laxative. She states she has been [...] s visit.Etoh-Denied. Tobacco-Denied. CBD-Denied. 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 She states she does take an cvpr-zeu-hgxsrbt stool softener/laxative. She states she has been [...] s visit.Etoh-Denied. Tobacco-Denied. CBD-Denied. RAOUL KINSEY MD [address] [place] [address], [phone], [facility] 12/22/2024 13:29:43 OBGyn Episode No OBEpisode recorded.
--- OUTSIDE RECORDS SUMMARY | 2025-01-01 10:43 | XMS_ITS | Clinical Summary ---
Author Organization [facility] Address [address] [place] [address] Care Team Providers Care Sales Manager [place] Name Role Phone Adryan Cooper MD Primary Care Provider + [phone] Allergies Active Allergy Reactions Criticality Noted Date [...] tablet (5 mg). 05/28/2016 Active HYDROcodone-gudelia taminophen ([place]) 10-325 MG tablet 1 tablet (10 mg [...] 2) 2008 [facility]-Breast Cancer Screening 04/06/201703/12, 04/06/2015 [id number] Vaccine ( season) 2024 01/20/2021, 06/16/2020 [facility]-Influenza [...] age to complete this topic [place] [address] COMBINED PRIORITY 1 CARD Care Teams Sales Manager [place] Relationship Specialty Start Date End Date Adryan Cooper MD [address] [place] [address] PCP - General 07/22/20
--- OUTSIDE RECORDS SUMMARY | 2025-01-01 10:43 | XMS_ITS | Encounter Summary ---
Author Organization [facility] Address [address] [place] [address] Care Team Providers Care Land Economist Name Role Phone Sandra Orozco APRN Primary Care Provider Encounter Details Date Type Department Care Team (Late st Contact Info) Description 11/12/2024 Patient rounding ([facility] only) [facility] [address] [facility] [address] [address] Dina Solano APRN [address] [facility] [address] [place] [address] Social History Tobacco Use Types Packs/Day Years Used Date Smoking Tobacco: Former Cigarettes Smokeless Tobacco: Never Comments:Smoked since 1973 Alcohol Use Standard Drinks/Week Comments Not Currently 0 (1 standard drink = 0.6 oz pur e alcohol) former [facility] Utilities Answer Date Recorded In the past 12 months has Applyful electric, gas, oil, or water company threatened [...] care, and heating? Not very hard 11/13/2024 [facility] [place] [facility] Occupat ional [facility] - Occupational Stress [...] GED or equivalent No 11/13/2024 Preferred Language Hong [place]er 11/13/2024 PHQ-2 Answer Date Recorded Patient Health [...] is Joaquina Sears, and I am the Hr Analyst for [facility] [place]. I would like to thank you for [...] with your visit with us as a [facility] facility? Over the next few days, you will be receiving a Patient Experience Survey. Please consider taking the survey, as it helps [facility] in improving their patient care. Thank you for taking the time to answer our questions today. I hope you have a good day. documented in this encounter Plan of Treatment Upcoming Encounters Date Type Department Care Team (Late st Contact Info) Description 02/16/2025 11:00 AM EST Office Visit [facility] [address] [address] [place] [phone] Dina Solano APRN [address] [facility] [address] [place] [address] documented as of this encounter Visit Diagnoses Not on filedocumented in this encounter Care Teams Land Economist Relationship Specialty Start Date End Date Sandra Orozco APRN [facility] [address] [place] [address] PCP - General Internal Medicine 05/11/24 documented as of this encounter
--- OUTSIDE RECORDS SUMMARY | 2025-01-01 10:43 | XMS_ITS | Clinical Summary ---
[facility] Organization [facility] Address [address] [place] [address] Care Team Providers Care Blade Bender Furnace Tender Name Role Phone Sandra Orozco APRN Primary Care Provider [phone] Allergies Active Allergy Reactions Criticality Noted Date [...] all over Nortriptyline Swelling Low 04/15/2024 Poison [place] Extract Hives,Itching,Swell ing,Rash Low 04/15/2024 Poison oak/poison [...] of breath and lower extremity edema. Her backup administrator was concerned about heart failure and advised [...] Assessment & Plan (11/26/2024 2:20 PM EDT): [id number] Continue Xarelto 15 mg p.o. daily Continue [...] Assessment & Plan (07/16/2024 12:10 PM EDT): [id number] Continue Xarelto 15 mg p.o. daily, [...] Department Care Team Description 11/30/2024 Readmission Management [facility] [address] [place] [address] Christiano Gresham RN 11/26/2024 11:00 AM EDT Office Visit [facility] [address] [place] [address] [address] [place] [address] Dina Solano APRN Paroxysmal atrial fibrillation (Primary Dx); History of CVA (cerebrovascular accident); Chronic respiratory failure with hypoxia; Hyperlipidemia LDL goal <55; Prediabetes; Anemia, unspecified type; Chronic venous insufficiency of lower extremity; Chronic obstructive pulmonary disease, unspecified COPD type 11/26/2024 Travel 11/23/2024 Readmission Management [facility] [address] [place] [address] Kaykay Farrar RN 11/16/2024 Readmission Management [facility] [address] [place] [address] Omaira Knapp RN 11/12/2024 9:36 PM EDT - 11/14/2024 4:38 PM EDT Hospital Encounter [address] [place] [id number] Logan Araujo MD Butler, Jennifer, MD Barbato, Hayley R, DO West, Christopher R, MD Referred by health career developer (Primary Dx); Dyspnea on exertion; Chronic respiratory failure with hypoxia, on home O2 therapy; SMOOTH (obstructive sleep apnea); Elevated troponin; Moderate aortic valve regurgitation Discharge Disposition: Home or Self Care 11/12/2024 12:30 PM EDT Office Visit [facility] [address] [place] [address] [address], [place] [address] Dina Solano APRN Shortness of breath (Primary Dx); Generalized edema; Chronic respiratory failure with hypoxia; Paroxysmal atrial fibrillation; History of CVA (cerebrovascular accident); Moderate aortic valve regurgitation; Peripheral arterial disease 11/12/2024 [place] [place] [facility] [address] [place] [place] [address] Dina Solano APRN 11/12/2024 Travel 11/10/2024 Telephone [facility] [address] [place] [place] [address] Christy Kirk MD from Last 3 Months Family History Medical History Relation Name Comments Hyperlipidemia Father Stanislaw Hypertension Father Stanislaw Anemia Mother Kerajennifer Shukla Arrhythmia Mother Kerajennifer Shukla Anemia Asthma Mother Kera Pakistani Coronary artery disease Mother Kera Pakistani Heart attack Mother Kera Pakistani 2 different typ es of cancer. Heart stints, Heart disease Mother Kera Pakistani Heart failure Mother Kerajennifer Shukla Relation Name [...] Recorded In the past 12 months has [employer] electric, gas, oil, or water [employer] threatened to shut off services in your [...] care, and heating? Not very hard 11/13/2024 [facility] Occupat ional Health - Occupational Stress [...] 02/16/2025 11:00 AM EST Office Visit [facility] [address] [facility] [place] [phone] Dina Solano APRN [address] [facility] [address] [place] [address] Health Maintenance Due Date Last Done Comments [...] EDT RESPIRATORY PANEL PCR W/ COVID-19 (SARS-COV-2), CASE TECHNICIAN SWAB IN UTM/VTP, 2 HR TAT Routine 11/13/2024 3:26 AM EDT BLOOD GAS, VENOUS W/CO-OXIMETRY STAT 11/12/2024 11:[address] ANGIOGRAM CHEST PULMONARY EMBOLISM STAT 11/12/2024 7:46 PM EDT COVID-19/FLUA&B/RSV, CASE TECHNICIAN SWAB IN TRANSPORT MEDIA 1 HR [...] APRN LAB BLOOD ORDERABLES Final Re sult [facility]
[address] [place] [id number], * ECHO COMPLETE W/ DOPPLER AND COLOR [...] period is included. Pathologist [facility] WBC 5.41 3.40 - 10.80 10*3/mm3 11/13/2024 12:36 PM EDT [facility] RBC 3.89 3.77 - 5.28 10*6/mm3 11/13/2024 12:36 PM EDT [facility] Hemoglobin 8.1(L) 12.0 - 15.9 g/dL 11/13/2024 12:36 PM EDT [facility] Hematocrit 29.1(L) 34.0 - 46.6 % 11/13/2024 12:36 PM EDT [facility] MCV 74.8(L) 79.0 - 97.0 fL 11/13/2024 12:36 PM EDT [facility] MCH 20.8(L) 26.6 - 33.0 pg 11/13/2024 12:36 PM EDT [facility] MCHC 27.8(L) 31.5 - 35.7 g/dL 11/13/2024 12:36 PM EDT [facility] RDW 19.0(H) 12.3 - 15.4 % 11/13/2024 12:36 PM EDT [facility] RDW-SD 51.3 37.0 - 54.0 fl 11/13/2024 12:36 PM EDT [facility] MPV 9.8 6.0 - 12.0 fL 11/13/2024 12:36 PM EDT [facility] Platelets 227 140 - 450 10*3/mm3 11/13/2024 12:36 PM EDT [facility] Neutrophil % 63.6 42.7 - 76.0 % 11/13/2024 12:36 PM EDT [facility] Lymphocyte % 23.3 19.6 - 45.3 % 11/13/2024 12:36 PM EDT [facility] Monocyte % 8.9 5.0 - 12.0 % 11/13/2024 12:36 PM EDT [facility] Eosinophil % 2.8 0.3 - 6.2 % 11/13/2024 12:36 PM EDT [facility] Basophil % 0.7 0.0 - 1.5 % 11/13/2024 12:36 PM T [facility] Immature Grans % 0.7(H) 0.0 - 0.5 % 11/13/2024 12:36 PM [facility] Neutrophils, Absolute 3.44 1.70 - 7.00 10*3/mm3 11/13/2024 12:36 PM T [facility] Lymphocytes, Absolute 1.26 0.70 - 3.10 10*3/mm3 11/13/2024 12:36 PM EDT [facility] Monocytes, Absolute 0.48 0.10 - 0.90 10*3/mm3 11/13/2024 12:36 PM EDT [facility] Eosinophils, Absolute 0.15 0.00 - 0.40 10*3/mm3 11/13/2024 12:36 PM [facility] Basophils, Absolute 0.04 0.00 - 0.20 10*3/mm3 11/13/2024 12:36 PM [facility] Immature Grans, Absolute 0.04 0.00 - 0.05 10*3/mm3 11/13/2024 12:36 PM [facility] nRBC 0.0 0.0 - 0.2 /100 WBC 11/13/2024 12:36 PM [facility] Blood Venipuncture / Unknown 11/13/2024 12:07 PM EDT 11/13/2024 12:26 PM EDT Aaliyah Jha RUBEN LAB BLOOD ORDERABLES Final Re sult [facility]
[address] [place] [address], * (ABNORMAL) Reticulocytes (11/13/2024 12:07 PM EDT) Reticulocyte % 2.78(H) 0.70 - 1.90 % 11/13/2024 12:32 PM EDT [facility] Reticulocyte Absolute 0.1081 0.0200 - 0.1300 10*6/mm3 11/13/2024 12:32 PM EDT [facility] Blood Venipuncture / Unknown 11/13/2024 12:07 PM EDT 11/13/2024 12:26 PM EDT Aaliyah Jha RUBEN LAB BLOOD ORDERABLES Final Re sult Performing Organization Address [facility]/ZIP Co de Phone Number [facility]
[address] [place] [address], * TSH (11/13/2024 12:07 PM EDT) TSH 2.770 0.270 - 4.200 uIU/mL 11/13/2024 12:56 PM EDT [facility] Blood Venipuncture / Unknown 11/13/2024 12:07 PM EDT 11/13/2024 12:26 PM EDT Aaliyah Jha RUBEN LAB BLOOD ORDERABLES Final Re sult Performing Organization Address City/[facility]/ZIP Co de Phone Number [facility]
[address] [place] [address], * Magnesium (11/13/2024 12:07 PM EDT) Only the most recent of2 resultswithin the time period is included. Magnesium 1.9 1.6 - 2.4 mg/dL 11/13/2024 12:56 PM EDT [facility] Blood Venipuncture / Unknown 11/13/2024 12:07 PM EDT 11/13/2024 12:26 PM EDT Aaliyah Jha APRN LAB BLOOD ORDERABLES Final Re sult Performing Organization Address [facility] Co de Phone Number [facility]
[address] [place] [address], * (ABNORMAL) Hemoglobin A1c (11/13/2024 12:07 PM EDT) Pathologist [facility] Hemoglobin A1C 5.84(H) 4.80 - 5.60 % 11/13/2024 1:23 PM EDT [facility] Blood Venipuncture / Unknown 11/13/2024 12:07 PM EDT 11/13/2024 12:26 PM EDT Narrative [facility] - 11/13/2024 1:23 PM EDT Hemoglobin A1C Ranges: Increased Risk for Diabetes 5.7% to 6.4% Diabetes >= 6.5% Diabetic Goal < 7.0% us Aaliyah Jha APRN LAB BLOOD ORDERABLES Final Re sult Performing Organization Address [facility] Co de Phone Number [facility]
[address] [place] [address], * Folate RBC (11/13/2024 12:07 PM EDT) Folate, Hemolysate 538.0 Not Estab. ng/mL 11/16/2024 9:09 AM EDT [facility] Hematocrit 40.7 34.0 - 46.6 % 11/16/2024 9:09 AM EDT [facility] RBC Folate 1322 >498 ng/mL 11/16/2024 9:09 AM EDT [facility] Blood Venipuncture / Unknown 11/13/2024 12:07 PM EDT 11/13/2024 12:26 PM EDT N[facility]ative [facility] - 11/16/2024 9:09 AM EDT Performed at: 01 - [facility] [address] [place], [place] [id number] Business Continuity Director: Gomez Crooks PhD, Phone: [phone] us Aaliyah Jha APRN LAB BLOOD ORDERABLES Edited R esult - Final [facility] [address] [place] [address], [place] [phone] * (ABNORMAL) Basic Metabolic Panel (11/13/2024 12:07 PM EDT) Pathologist [facility] Glucose 100(H) 65 - 99 mg/dL 11/13/2024 12:56 PM EDT [facility] BUN 19.7 8.0 - 23.0 mg/dL 11/13/2024 12:56 PM EDT [facility] Creatinine 0.93 0.57 - 1.00 mg/dL 11/13/2024 12:56 PM EDT [facility] Sodium 143 136 - 145 mmol/L 11/13/2024 12:56 PM EDT [facility] Potassium 3.8 3.5 - 5.2 mmol/L 11/13/2024 12:56 PM EDT [facility] Chloride 102 98 - 107 mmol/L 11/13/2024 12:56 PM EDT [facility] CO2 31.1(H) 22.0 - 29.0 mmol/L 11/13/2024 12:56 PM EDT [facility] Calcium 8.6 8.6 - 10.5 mg/dL 11/13/2024 12:56 PM EDT [facility] BUN/Creatinine Ratio 21.2 7.0 - 25.0 11/13/2024 12:56 PM EDT [facility] Anion Gap 9.9 5.0 - 15.0 mmol/L 11/13/2024 12:56 PM EDT [facility] eGFR 67.9 >60.0 mL/min/1.7 3 11/13/2024 12:56 PM EDT [facility] Blood Venipuncture / Unknown 11/13/2024 12:07 PM EDT 11/13/2024 12:26 PM EDT Narrative [facility] - 11/13/2024 12:56 PM [...] include race as a factor Aaliyah Jha KILN CHARGER LAB BLOOD ORDERABLES Final Re sult [facility]
[address] [place] [address], * Duplex Venous Lower Extremity - Bilateral [...] of2 resultswithin the time period is included. [facility] QT Interval 410 ms ECG QTC [...] change was found Confirmed by ABDULLAHI HENDRICKSON ([id number]) on 11/13/2024 7:39:07 PM Referred By: Confirmed [...] change was found Confirmed by ABDULLAHI HENDRICKSON ([id number]) on 11/13/2024 7:39:07 PM Referred By: Confirmed By: ABDULLAHI HENDRICKSON Aaliyah Jha APRN ECG ORDERABLES Final Result ECG * Respiratory Panel PCR w/COVID-19(SARS-CoV-2) SIDRA/CHECO/SAUD/PAD/COR/ERIC In-House, CASE TECHNICIAN Swab in UTM/VTM, 2 HR TAT - Swab, Nasopharynx (11/13/2024 3:26 AM EDT) ADENOVIRUS, PCR Not Detected Not Detected [facility] 11/13/2024 4:48 AM EDT [facility] Coronavirus 229E Not Detected Not Detected [facility] 11/13/2024 4:48 AM EDT [facility] Coronavirus HKU1 Not Detected Not Detected [facility] 11/13/2024 4:48 AM EDT [facility] Coronavirus NL63 Not Detected Not Detected [facility] 11/13/2024 4:48 AM EDT [facility] Coronavirus OC43 Not Detected Not Detected [facility] 11/13/2024 4:48 AM EDT [facility] COVID19 Not Detected Not Detected - Ref. Range [facility] 11/13/2024 4:48 AM EDT [facility] Human Metapneumovirus Not Detected Not Detected [facility] 11/13/2024 4:48 AM EDT [facility] Human Rhinovirus/Enterov irus Not Detected Not Detected [facility] 11/13/2024 4:48 AM EDT [facility] Influenza A PCR Not Detected Not Detected [facility] 11/13/2024 4:48 AM EDT [facility] Influenza B PCR Not Detected Not Detected [facility] 11/13/2024 4:48 AM EDT [facility] Parainfluenza Virus 1 Not Detected Not Detected [facility] 11/13/2024 4:48 AM EDT [facility] Parainfluenza Virus 2 Not Detected Not Detected [facility] 11/13/2024 4:48 AM EDT [facility] Parainfluenza Virus 3 Not Detected Not Detected [facility] 11/13/2024 4:48 AM EDT [facility] Parainfluenza Virus 4 Not Detected Not Detected [facility] 11/13/2024 4:48 AM EDT [facility] RSV, PCR Not Detected Not Detected [facility] 11/13/2024 4:48 AM EDT [facility] Bordetella pertussis pcr Not Detected Not Detected [facility] 11/13/2024 4:48 AM EDT [facility] Bordetella parapertussis PCR Not Detected Not Detected [facility] 11/13/2024 4:48 AM EDT [facility] Chlamydophila pneumoniae PCR Not Detected Not Detected [facility] 11/13/2024 4:48 AM EDT [facility] Mycoplasma pneumo by PCR Not Detected Not Detected [facility] 11/13/2024 4:48 AM EDT [facility] Swab Nasopharyngeal structure / Unknown Collection / Unknown 11/13/2024 3:26 AM EDT 11/13/2024 4:00 AM EDT Narrative [facility] - 11/13/2024 4:48 AM EDT In [...] MICROBIOLOGY - GENERAL ORDERA BLES Final Result [facility]
[address] [place] [address], * (ABNORMAL) Blood Gas, Venous With Co-Ox (11/12/2024 11:16 PM EDT) Site Nurse/Dr Stew 11/12/2024 11:17 PM EDT [facility] pH, Venous 7.337 7.310 - 7.410 pH Units 11/12/2024 11:17 PM EDT [facility] pCO2, Venous 59.6(H) 41.0 - 51.0 mm Hg 11/12/2024 11:17 PM EDT [facility] Comment:83 Value above refer ence range pO2, Venous 30.4 27.0 - 53.0 mm Hg 11/12/2024 11:17 PM EDT [facility] HCO3, Venous 31.9(H) 22.0 - 28.0 mmol/L 11/12/2024 11:17 PM EDT [facility] Base Excess, Venous 5.0(H) -2.0 - 2.0 mmol/L 11/12/2024 11:17 PM EDT [facility] Hemoglobin, Blood Gas 9.3(L) 14 - 18 g/dL 11/12/2024 11:17 PM EDT [facility] Oxyhemoglobin Venous 48.3 % 06/2024 11:17 PM EDT [facility] Methemoglobin Venous 0.4 % 06/2024 11:17 PM EDT [facility] Carboxyhemoglobin Venous 1.7 % 11/12/2024 11:17 PM EDT [facility] CO2 Content 33.7(H) 22 - 33 mmol/L 11/12/2024 11:17 PM EDT [facility] Temperature 37.0 11/12/2024 11:17 PM EDT [facility] Barometric Pressure for Blood Gas 11/12/2024 11:17 PM EDT [facility] Comment:N/A Modality Nasal Cannula 11/12/2024 11:17 PM EDT [facility] FIO2 28 % 11/12/2024 11:17 PM EDT [facility] Rate 0 Breaths/ minute 11/12/2024 11:17 PM EDT [facility] PIP 0 cmH2O 11/12/2024 11:17 PM EDT [facility] Comment:Meter: [id number] Corporate Training Manager: [id number] IPAP 0 11/12/2024 11:17 PM EDT [facility] EPAP 0 11/12/2024 11:17 PM EDT [facility] Venous Blood 11/12/2024 11:1 6 PM EDT 11/12/2024 11:16 PM EDT us Logan Araujo MD LAB BLOOD ORDERABLES Fin al Result [facility]
[address] [place] [address], * CT Angiogram Chest Pulmonary Embolism (11/12/2024 7:46 PM EDT) Anatomical Region Laterality Modality Chest N/A Computed Tomogra phy 11/12/2024 8:22 PM EDT Impressions 11/12/2024 8:31 PM EDT No evidence of pulmonary embolus. No acute abnormality. Electronically Signed: Jed Machuca MD 11/12/2024 8:31 PM EDT Workstation ID: [id number] Narrative 11/12/2024 8:[address] ANGIOGRAM [...] MD 11/12/2024 8:31 PM EDT Workstation ID: [id number] Logan Araujo MD IMG CT ORDERABLES Final Result * COVID-19, FLU A/B, RSV PCR 1 HR TAT - Swab, Nasopharynx (11/12/2024 7:21 PM EDT) Pathologist [facility] COVID19 Not Detected Not Detected - Ref. Range CEPHEID GENEXPERT 11/12/2024 8:24 PM EDT [facility] Influenza A PCR Not Detected Not Detected CEPHEID GENEXPERT 11/12/2024 8:24 PM EDT [facility] Influenza B PCR Not Detected Not Detected CEPHEID GENEXPERT 11/12/2024 8:24 PM EDT [facility] RSV, PCR Not Detected Not Detected CEPHEID GENEXPERT 11/12/2024 8:24 PM EDT [facility] Swab Nasopharyngeal structure / Unknown Collection / Unknown 11/12/2024 7:21 PM EDT 11/12/2024 7:46 PM EDT Logan Araujo MD MICROBIOLOGY - GENERAL O RDERABLES Final Result [facility]
[address] [place] [address], * (ABNORMAL) Urinalysis, Microscopic Only - Urine, Clean Catch (11/12/2024 7:20 PM EDT) Pathologist [facility] RBC, UA 0-2 None Seen, 0-2 /HPF 11/12/2024 8:00 PM EDT [facility] WBC, UA 11-20(A) None Seen, 0-2 /HPF 11/12/2024 8:00 PM EDT [facility] Bacteria, UA None Seen None Seen /HPF 11/12/2024 8:00 PM EDT [facility] Squamous Epithelial Cells, UA 3-6(A) None Seen, 0-2 /HPF 11/12/2024 8:00 PM EDT [facility] Hyaline Casts, UA 0-2 None Seen /LPF 11/12/2024 8:00 PM EDT [facility] Methodology Automated Microscopy 11/12/2024 8:00 PM EDT [facility] Urine Urine specimen obtained by clean catch procedure / Unknown Collection / Unknown 11/12/2024 7:20 PM EDT 11/12/2024 7:46 PM EDT us Logan Araujo MD URINE ORDERABLES Final R esult [facility]
[address] [place] [address], * (ABNORMAL) Urinalysis With Microscopic If Indicated (No Culture) - Urine, Clean Catch (11/12/2024 7:20 PM EDT) Color, UA Yellow Yellow, Straw 11/12/2024 8:00 PM EDT [facility] Appearance, UA Clear Clear 11/12/2024 8:00 PM EDT [facility] pH, UA 5.5 5.0 - 8.0 11/12/2024 8:00 PM EDT [facility] Specific [place], UA >1.030(H) 1.005 - 1.030 11/12/2024 8:00 PM EDT [facility] Glucose, UA Negative Negative 11/12/2024 8:00 PM EDT [facility] Ketones, UA Negative Negative 11/12/2024 8:00 PM EDT [facility] Bilirubin, UA Negative Negative 11/12/2024 8:00 PM EDT [facility] Blood, UA Negative Negative 11/12/2024 8:00 PM EDT [facility] Protein, UA Trace(A) Negative 11/12[facility]2024 [facility] Leuk Esterase, UA Small (1+)(A) Negative 11/12/2024 8:00 PM EDT [facility] Nitrite, UA Negative Negative 11/12/2024 8:00 PM EDT [facility] Urobilinogen, UA 1.0 E.U./dL 0.2 - 1.0 E.U./dL 11/12/2024 8:00 PM EDT [facility] Urine Urine specimen obtained by clean catch procedure / Unknown Collection / Unknown 11/12/2024 7:20 PM EDT 11/12/2024 7:46 PM EDT Logan Araujo MD URINE ORDERABLES Final R esult Performing Organization Address City/[facility]/ZIP Co de Phone Number [facility]
[address] [place] [address], * Sodium, Urine, Random - Urine, Clean Catch (11/12/2024 7:20 PM EDT) Sodium, Urine <20 mmol/L 11/13/2024 3:37 AM EDT [facility] Urine Urine specimen obtained by clean catch procedure / Unknown Collection / Unknown 11/12/2024 7:20 PM EDT 11/12/2024 7:46 PM EDT Narrative [facility] - 11/13/2024 3:37 AM EDT Reference intervals for random urine have not been established. Clinical usage is dependent upon physician's interpretation in combination with other laboratory tests. Aaliyah Jha APRN URINE ORDERABLES Final Result Performing Organization Address [facility]/ZIP Co de Phone Number [facility]
[address] [place] [address], * Osmolality, Urine - Urine, Clean Catch (11/12/2024 7:20 PM EDT) Osmolality, Urine 837 300 - 1,100 mOsm/kg 11/13/2024 4:00 AM EDT [facility] Urine Urine specimen obtained by clean catch procedure / Unknown Collection / Unknown 11/12/2024 7:20 PM EDT 11/12/2024 7:46 PM EDT Aaliyah Jha RUBEN URINE ORDERABLES Final Result Performing Organization Address [facility] Phone Number [facility]
[address] [place] [address], * Creatinine Urine Random (kidney function) GFR component - Urine, Clean Catch (11/12/2024 7:20 PM EDT) Creatinine, Urine 276.6 mg/dL 11/13/2024 9:46 AM EDT [facility] Urine Urine specimen obtained by clean catch procedure / Unknown Collection / Unknown 11/12/2024 7:20 PM EDT 11/13/2024 3:13 AM EDT Narrative [facility] - 11/13/2024 9:46 AM EDT Reference intervals for random urine have not been established. Clinical usage is dependent upon physician's interpretation in combination with other laboratory tests. Aaliyah Jha APRN URINE ORDERABLES Final Result Performing Organization Address [facility] Co de Phone Number [facility]
[address] [place] [address], * Urine Culture - Urine, Urine, Clean Catch (11/12/2024 7:20 PM EDT) Urine Culture No growth YUMIKO 11/14/2024 12:26 PM EDT [facility] Urine Urine specimen obtained by clean catch procedure / Unknown Collection / Unknown 11/12/2024 7:20 PM EDT 11/13/2024 12:57 AM EDT Logan Araujo MD MICROBIOLOGY - GENERAL O RDERABLES Final Result Performing Organization Address [facility] Co de Phone Number [facility]
[address] [place] [address], [place] [phone] * (ABNORMAL) High Sensitivity Troponin T 1Hr (11/12/2024 7:16 PM EDT) HS Troponin T 16(H) <14 ng/L 11/12/2024 7:53 PM EDT [facility] Troponin T Numeric Delta -1 ng/L 11/12/2024 7:53 PM EDT [facility] Troponin T % Delta -6 Abnormal if >/= 20% 11/12/2024 7:53 PM EDT [facility] Blood Line / Unknown 11/12/2024 7: 16 PM EDT 11/12/2024 7:20 PM EDT [facility] - 11/12/2024 7:53 PM [...] injury due to an underlying chronic condition. oLgan Araujo MD LAB BLOOD ORDERABLES Fin al Result Performing Organization Address [facility]/ZIP Co de Phone Number [facility]
[address] [place] [address], [place] [phone] * (ABNORMAL) Iron Profile w/o Ferritin (11/12/2024 7:16 PM EDT) Iron 21(L) 37 - 145 mcg/dL 11/13/2024 3:24 AM EDT [facility] Iron Saturation (TSAT) 4(L) 20 - 50 % 11/13/2024 3:24 AM EDT [facility] Transferrin 321 200 - 360 mg/dL 11/13/2024 3:24 AM EDT [facility] TIBC 478 298 - 536 mcg/dL 11/13/2024 3:24 AM EDT [facility] Blood Venipuncture / Unknown 11/12/2024 7:16 PM EDT 11/13/2024 2:57 AM EDT Aaliyah Jha RUBEN LAB BLOOD ORDERABLES Final Re sult Performing Organization Address [facility] de Phone Number [facility]
[address] [place] [address], [place] [phone] * Ferritin (11/12/2024 7:16 PM EDT) Ferritin 13.80 13.00 - 150.00 ng/mL 11/13/2024 3:24 AM EDT [facility] Blood Venipuncture / Unknown 11/12/2024 7:16 PM EDT 11/13/2024 2:57 AM EDT Narrative [facility] - 11/13/2024 3:24 AM EDT Results may be falsely decreased if patient taking Biotin. Aaliyah Jha RUBEN LAB BLOOD ORDERABLES Final Re sult Performing Organization Address [facility] de Phone Number [facility]
[address] [place] [address], [place] [phone] * XR Chest 1 View (11/12/2024 6:30 PM EDT) Anatomical Region Laterality Modality Body N/A Radiographic Tatyana ging 11/12/2024 7:00 PM EDT Impressions 11/12/2024 7:02 PM EDT Impression: 1. No acute cardiopulmonary disease. Electronically Signed: Arben Neely MD 11/12/2024 7:02 PM EDT Workstation ID: [id number] Narrative 11/12/2024 7:02 PM EDT XR CHEST [...] MD 11/12/2024 7:02 PM EDT Workstation ID: [id number] [place] Araujo MD IMG DIAGNOSTIC IMAGING O RDERABLES Final Result * Castellano Top (11/12/2024 5:17 PM EDT) Extra Tube Hold for add-ons. 11/12/2024 5:32 PM EDT [facility] Comment:Auto resulted. Blood Venipuncture / Unknown 11/12/2024 5:17 PM EDT 11/12/2024 5:17 PM EDT [place] Araujo MD LAB BLOOD ORDER ONLY Fin al Result [facility]
[address] [place] [address], * TSH Rfx On Abnormal To Free T4 (11/12/2024 5:17 PM EDT) TSH 2.480 0.270 - 4.200 uIU/mL 11/12/2024 5:51 PM EDT [facility] Blood Venipuncture / Unknown 11/12/2024 5:17 PM EDT 11/12/2024 5:17 PM EDT [place] Araujo MD LAB BLOOD ORDERABLES Fin al Result Performing Organization Address City/[facility]/ZIP Co de Phone Number [facility]
[address] [place] [address], * Gold Top - SST (11/12/2024 5:17 PM EDT) Extra Tube Hold for add-ons. 11/12/2024 5:32 PM EDT [facility] Comment:Auto resulted. Blood Venipuncture / Unknown 11/12/2024 5:17 PM EDT 11/12/2024 5:17 PM EDT [place] Araujo MD LAB BLOOD ORDER ONLY Fin al Result Performing Organization Address [facility] Co de Phone Number [facility]
[address] [place] [address], * Green Top (Gel) (11/12/2024 5:17 PM EDT) Extra Tube Hold for add-ons. 11/12/2024 5:31 PM EDT [facility] Comment:Auto resulted. Blood Venipuncture / Unknown 11/12/2024 5:17 PM EDT 11/12/2024 5:17 PM EDT [place] Araujo MD LAB BLOOD ORDER ONLY Fin al Result Performing Organization Address City/[facility]/ZIP Co de Phone Number [facility]
[address] [place] [address], * Scan Slide (11/12/2024 5:17 PM EDT) Anisocytosis Slight/1+ None Seen 11/12/2024 6:07 PM EDT [facility] Hypochromia Slight/1+ None Seen 11/12/2024 6:07 PM EDT [facility] Microcytes Mod/2+ None Seen 11/12/2024 6:07 PM EDT [facility] WBC Morphology Normal Normal 11/12/2024 6:07 PM EDT [facility] Platelet Morphology Normal Normal 11/12/2024 6:07 PM EDT [facility] Blood Venipuncture / Unknown 11/12/2024 5:17 PM EDT 11/12/2024 5:17 PM EDT [place] Araujo MD LAB BLOOD ORDERABLES Fin al Result Performing Organization Address City/[facility]/ZIP Co de Phone Number [facility]
[address] [place] [address], * Lavender Top (11/12/2024 5:17 PM EDT) Extra Tube hold for add-on 11/12/2024 5:31 PM EDT [facility] Comment:Auto resulted Blood Venipuncture / Unknown 11/12/2024 5:17 PM EDT 11/12/2024 5:17 PM EDT [place] Araujo MD LAB BLOOD ORDER ONLY Fin al Result Performing Organization Address City/[facility]/ZIP Co de Phone Number [facility]
[address] [place] [address], [place] [phone] * Light Blue Top (11/12/2024 5:17 PM EDT) Extra Tube Hold for add-ons. 11/12/2024 5:31 PM EDT [facility] Comment:Auto resulted Blood Venipuncture / Unknown 11/12/2024 5:17 PM EDT 11/12/2024 5:17 PM EDT [place] Araujo MD LAB BLOOD ORDER ONLY Fin al Result Performing Organization Address City/[facility]/ZIP Co de Phone Number [facility]
[address] [place] [address], * (ABNORMAL) High Sensitivity Troponin T (11/12/2024 5:17 PM EDT) [facility] HS Troponin T 17(H) <14 ng/L 11/12/2024 5:51 PM EDT [facility] Blood Venipuncture / Unknown 11/12/2024 5:17 PM EDT 11/12/2024 5:17 PM EDT [facility] - 11/12/2024 5:51 [...] Fin al Result Performing Organization Address [facility]/ZIP Co de Phone Number [facility]
[address] [place] [address], * (ABNORMAL) D-dimer, Quantitative (11/12/2024 5:17 PM EDT) [facility] D-Dimer, Quantitative 10.36(H) 0.00 - 0.66 MCGFEU/mL 11/12/2024 6:00 PM EDT [facility] Blood Venipuncture / Unknown 11/12/2024 5:17 PM EDT 11/12/2024 5:17 PM EDT [facility] - 11/12/2024 6:00 PM EDT According to the assay asset management analyst's published package insert, a normal (<0.50 MCGFEU/mL) D-dimer result in conjunction with a non-high clinical probability assessment, excludes deep vein thrombosis (DVT) and pulmonary embolism (PE) with high sensitivity. D-dimer values increase with age and this can make VTE exclusion of an older population difficult. To address this, the [employer], based on best available [...] City/[facility]/ZIP Co de Phone Number [facility]
[address] [place] [address], * Phosphorus (11/12/2024 5:17 PM EDT) Phosphorus 4.1 2.5 - 4.5 mg/dL 11/12/2024 5:51 PM EDT [facility] Blood Venipuncture / Unknown 11/12/2024 5:17 PM EDT 11/12/2024 5:17 PM EDT [place] Araujo MD LAB BLOOD ORDERABLES Fin al Result [facility]
[address] [place] [address], * BNP (11/12/2024 5:17 PM EDT) proBNP 247.0 0.0 - 900.0 pg/mL 11/12/2024 5:51 PM EDT [facility] Blood Venipuncture / Unknown 11/12/2024 5:17 PM EDT 11/12/2024 5:17 PM EDT Narrative [facility] - 11/12/2024 5:51 PM [...] Fin al Result Performing Organization Address [facility] de Phone Number [facility]
[address] [place] [address], [place] [phone] * Lipase (11/12/2024 5:17 PM EDT) Lipase 20 13 - 60 U/L 11/12/2024 5:51 PM EDT [facility] Blood Venipuncture / Unknown 11/12/2024 5:17 PM EDT 11/12/2024 5:17 PM EDT [place] Araujo MD LAB BLOOD ORDERABLES Fin al Result Performing Organization Address [facility] de Phone Number [facility]
[address] [place] [address], [place] [phone] * Lactic Acid, Plasma (11/12/2024 5:17 PM EDT) Lactate 1.6 0.5 - 2.0 mmol/L 11/12/2024 5:49 PM EDT [facility] Comment:Falsely depressed re sults may occur on samples drawn from patients receiving N-Acetylcysteine (NAC) or Metamizole. Blood Venipuncture / Unknown 11/12/2024 5:17 PM EDT 11/12/2024 5:17 PM EDT [place] Araujo MD LAB BLOOD ORDERABLES Fin al Result [facility]
[address] [place] [address], * Folate (11/12/2024 5:17 PM EDT) Folate >20.00 4.78 - 24.20 ng/mL 11/13/2024 9:54 AM EDT [facility] Blood Venipuncture / Unknown 11/12/2024 5:17 PM EDT 11/13/2024 2:59 AM EDT Narrative [facility] - 11/13/2024 9:54 AM EDT Results may be falsely increased if patient taking Biotin. Aaliyah Jha APRN LAB BLOOD ORDERABLES Final Re sult Performing Organization Address [facility]/ZIP Co de Phone Number [facility]
[address] [place] [address], * (ABNORMAL) Vitamin B12 (11/12/2024 5:17 PM EDT) Vitamin B-12 1,669(H) 211 - 946 pg/mL 11/13/2024 9:54 AM EDT [facility] Blood Venipuncture / Unknown 11/12/2024 5:17 PM EDT 11/13/2024 2:59 AM EDT Narrative [facility] - 11/13/2024 9:54 AM EDT Results may be falsely increased if patient taking Biotin. Aaliyah Jha APRN LAB BLOOD ORDERABLES Final Re sult [facility]
[address] [place] [address], [place] [phone] * (ABNORMAL) Comprehensive Metabolic Panel (11/12/2024 5:17 PM EDT) [facility] Glucose 96 65 - 99 mg/dL 11/12/2024 5:51 PM EDT [facility] BUN 24.7(H) 8.0 - 23.0 mg/dL 11/12/2024 5:51 PM EDT [facility] Creatinine 1.06(H) 0.57 - 1.00 mg/dL 11/12/2024 5:51 PM EDT [facility] Sodium 139 136 - 145 mmol/L 11/12/2024 5:51 PM EDT [facility] Potassium 4.4 3.5 - 5.2 mmol/L 11/12/2024 5:51 PM EDT [facility] Chloride 101 98 - 107 mmol/L 11/12/2024 5:51 PM EDT [facility] CO2 27.9 22.0 - 29.0 mmol/L 11/12/2024 5:51 PM EDT [facility] Calcium 9.1 8.6 - 10.5 mg/dL 11/12/2024 5:51 PM EDT [facility] Total Protein 6.4 6.0 - 8.5 g/dL 11/12/2024 5:51 PM EDT [facility] Albumin 4.0 3.5 - 5.2 g/dL 11/12/2024 5:51 PM EDT [facility] ALT (SGPT) 15 1 - 33 U/L 11/12/2024 5:51 PM EDT [facility] AST (SGOT) 27 1 - 32 U/L 11/12/2024 5:51 PM EDT [facility] Alkaline Phosphatase 113 39 - 117 U/L 11/12/2024 5:51 PM EDT [facility] Total Bilirubin 0.2 0.0 - 1.2 mg/dL 11/12/2024 5:51 PM EDT [facility] Globulin 2.4 gm/dL 11/12/2024 5:51 PM EDT [facility] Comment:Calculated Result A/G Ratio 1.7 g/dL 11/12/2024 5:51 PM EDT [facility] BUN/Creatinine Ratio 23.3 7.0 - 25.0 11/12/2024 5:51 PM EDT [facility] Anion Gap 10.1 5.0 - 15.0 mmol/L 11/12/2024 5:51 PM EDT [facility] eGFR 58.1(L) >60.0 mL/min/1.7 3 11/12/2024 5:51 PM EDT [facility] Blood Venipuncture / Unknown 11/12/2024 5:17 PM EDT 11/12/2024 5:17 PM EDT Narrative [facility] - 11/12/2024 5:51 PM EDT GFR [...] MD LAB BLOOD ORDERABLES Fin al Result [facility]
[address] [place] [address], * Mammo screening digital tomosynthesis bilateral (04/06/2015 [...] in patients with adenosis or dense breasts. [employer] For breast cancer detection in asymptomatic women- Age ACR Recommendations 35-40 Baseline Mammogram 40-49 Annual or Biannual Mammogram 50+ Annual Mammogram Annual physical and frequent self breast examination. Patient has been entered into an automatic reminder system. Addendum Reading Radiologist- DIYA GOEL Addendum Releasing Radiologist- DIYA GOEL Addendum Released Date Time- 04/19/15 3820 Addendum Erector Operator- Jaylen BILATERAL SCREENING MAMMOGRAM WITH TOMOSYNTHESIS PNL- [...] in patients with adenosis or dense breasts. [employer] For breast cancer [...] in patients with adenosis or dense breasts. [employer] For breast cancer detection in asymptomatic women- Age ACR Recommendations 35-40 Baseline Mammogram 40-49 Annual or Biannual Mammogram 50+ Annual Mammogram Annual physical and frequent self breast examination. Patient has been entered into an automatic reminder system. Addendum Reading RadiologistAndre GOEL Addendum Releasing SharAndre Romero KULDEEP Addendum Released Date Time- 04/19/15 1550 Addendum Erector OperatorAndre York BILATERAL SCREENING MAMMOGRAM WITH TOMOSYNTHESIS PNL- [...] in patients with adenosis or dense breasts. [employer] For breast cancer detection in asymptomatic women- Age ACR Recommendations 35-40 Baseline Mammogram 40-49 Annual or Biannual Mammogram 50+ Annual Mammogram Annual physical and frequent self breast examination. Patient has been entered into an automatic reminder system. Reading Radiologist- DIYA GOEL Releasing Radiologist- DIYA GOEL Released Date Time- 04/06/15 1055 Erector Operator- C.B. Gregorio Mcgee MD [facility] MAMMOGRAPHY ORDERABLES Edite d Result - Final from Last 3 Months or Most Recently Relevant to Health Maintenance Insurance [facility] MEDICARE A & B Advance Directives * CPR (Attempt to Resuscitate) (Latest Code Status on File) Date Activated Date Inactivated Comments 11/13/2024 2:01 AM 11/14/2024 6:43 PM Question Answer Comments Code Status (Patient has no pulse and is not breathing): CPR (Attempt to Resuscitate) Medical Interventions (Patie nt has pulse or is breathing): Full Support Care Teams Blade Bender Furnace Tender Relationship Specialty Start Date End Date Sandra Orozco APRN [address] [place] [address] SANDER BERMUDEZ [id number] PCP - General Internal Medicine 05/11/24
--- OUTSIDE RECORDS SUMMARY | 2025-01-01 10:43 | XMS_ITS | Encounter Summary ---
Author Organization [facility] ystem Address [address] [place] [address] Care Team Providers Care Court Security Officer Name Role Phone Sandra Orozco APRN Primary Care Provider [phone] Encounter Details Date Type Department Care Team (Late st Contact Info) Description 11/10/2024 Telephone [facility] [address] [facility] [address] [place] [phone] Christy Kirk MD [address] [facility] [address] [place] [address] Social History Tobacco Use Types Packs/Day Years [...] SOONER APT. SHE CAN BE REACHED AT [phone] documented in this encounter Plan of Treatment Upcoming Encounters Date Type Department Care Team (Late st Contact Info) Description 02/16/2025 11:00 AM EST Office Visit [facility] [address] [facility] [address], [place] [address] Kalin Solano APRN [address] [facility] [address] [address] documented as of this encounter Visit Diagnoses Not on filedocumented in this encounter Care Teams Court Security Officer Relationship Specialty Start Date End Date Sandra Orozco APRN Pending sale to [facility] [place] [address] PCP - General Internal Medicine 05/11/24 documented as of this encounter
--- OUTSIDE RECORDS SUMMARY | 2025-01-01 10:43 | XMS_ITS | Referral Summary ---
Author Organization [employer] ([place], [place], [place], [place]) Address [address] [place] [address] Care Team Providers Care Nanotechnology Engineering Technician Name Role Phone OrozcoKrystenrafael MIRANDA Primary Care [...] your living situation today? I have a [facility] place to live 10/13/2023 Think [...] speak a language other than Citizen Of [place] at [facility]? No 10/13/2023 Do you want help [...] on file Medical Devices Implanted Type Area Sorter Lumber Straightener Device Identifier Shelf Expiration Date Model / Serial / Lot Sealant Durasl Spine 5ml [id number] - [id number] Implanted:Qty: 1 on 01/31/2022 by Emeka Fernández MD at [facility] IMPLANTS N/A: Back [employer] 07/09/2023 [id number] / / [id number] Cement Spinal Confidence 2839-10-000 - [id number] Implanted:Qty: 2 on 10/14/2023 at [facility] IMPLANTS N/A: Back J &J:DEPUY:DEPUY SPINE 06/08/2025 0 / / [id number] Insurance MEDICARE PART A B GENERIC COMMERCIAL Advance Directives For more information, please contact: [phone] Documents on File Type Date Recorded Patient Finish Production Manager Expl anation Advance Directives and Marixa g Will 01/31/2022 8:44 AM * Full Code (Latest Code Status on File) Date Activated Date Inactivated Comments 10/12/2023 11:08 PM 10/15/2023 6:49 PM * Full Code Date Activated Date Inactivated Comments 01/31/2022 5:41 PM 02/01/2022 4:50 PM Healthcare Agents on File Name Relationship Healthcare Agent [facility] p Communication Luis Cruz Son First Alternate Healthcare Decision-Maker Care Teams Nanotechnology Engineering Technician Relationship Specialty Start Date End Date Sandra Orozco, WIDE PIECE GOODS INSPECTOR [address] [place] [address] PCP - General Nurse Practitioner 01/24/22
--- OUTSIDE RECORDS SUMMARY | 2025-01-01 10:43 | XMS_ITS | Encounter Summary ---
Author Organization [facility] ystem Address [address] [place] [address] Care Team Providers Care Web Weaver Name Role Phone Sandra Orozco APRN Primary Care Provider [phone] Encounter Details Date Type Department Care Team (Late st Contact Info) Description 11/16/2024 Readmission Management [facility] NURSE CALL [facility] [address] [place] [address] Omaira Knapp RN Social History Tobacco Use Types Packs/Day Years Used Date Smoking Tobacco: Former Cigarettes Smokeless Tobacco: Never Comments:Smoked since 1973 Alcohol Use Standard Drinks/Week Comments Not Currently 0 (1 standard drink = 0.6 oz pur e alcohol) former [facility] Utilities Answer Date Recorded In the past 12 months has [employer]), gas, oil, or water [employer] threatened to shut off services in your [...] GED or equivalent No 11/13/2024 Preferred Language Rwandan 11/13/2024 PHQ-2 Answer Date Recorded Patient Health [...] AM EDT Prep Survey Flowsheet Row Responses [facility] patient discharged from? Avenue Is LACE score less than 10 ? [...] Description 02/16/2025 11:00 AM EST Office Visit [facility] [address] [facility] [address] [place] [address] Dina Solano APRN [address] [facility] [address] [place] [address] documented as of this encounter Visit Diagnoses Not on filedocumented in this encounter Care Teams Web Weaver Relationship Specialty Start Date End Date Sandra Orozco APRN [address] [place] [address] [address] [place] [address] PCP - General Internal Medicine 05/11/24 documented as of this encounter
--- OUTSIDE RECORDS SUMMARY | 2025-01-01 10:43 | XMS_ITS | Encounter Summary ---
[facility] Address [address] [place] [address] Care Team Providers Care Laborer Airport Maintenance Name Role Phone Sandra Orozco APRN Primary Care Provider [phone] Encounter Details Date Type Department Care Team (Latest Contact Info) Description 11/12/2024 Travel Social History Tobacco Use Types Packs/Day Years Used Date Smoking Tobacco: Former Cigarettes Smokeless Tobacco: Never Comments:Smoked since 1973 Alcohol Use Standard Drinks/Week Comments Not Currently 0 (1 standard drink = 0.6 oz pur e alcohol) former [facility] Utilities Answer Date Recorded In the [...] care, and heating? Not very hard 11/13/2024 [facility] of Occupat ional Health - Occupational Stress [...] 4:43 PM EDT Minna Gamez, BERNICE * [place] Suicide Severity Rating Scale (Screener/Recent Self-Report) Question [...] Description 02/16/2025 11:00 AM EST Office Visit [facility]ICAL [facility] [address] [facility] [address] [address] Dina Solano APRN [address] [facility] [address] [place] [address] documented as of this encounter Visit Diagnoses Not on filedocumented in this encounter Additional Health Concerns Infection Onset Date Last Indicated Resolved Time COVID Screen (preop/placement) 11/12/2024 11/12/2024 11/12/2024 8:24 PM EDT documented as of this encounter Care Teams Laborer Airport Maintenance Relationship Specialty Start Date End Date Sandra Orozco APRN [address] [place] [address] PCP - General Internal Medicine 05/11/24 documented as of this encounter
--- OUTSIDE RECORDS SUMMARY | 2025-01-01 10:44 | XMS_ITS | Encounter Summary ---
Author Organization [employer] ([place], [place], [place], [place]) Address [address] [place] [address] Care Team Providers Care Referral Management Liaison Name Role Phone Sandra Orozco RUBEN Primary Care Provider Encounter Details Date Type Department Care Team (Late st Contact Info) Description 01/25/2020 Transcribed Document [facility] Family Medicine [address] [place] [address] ProviderAide MD [address] [place] [address] Social History Tobacco Use Types Packs/Day Years Used Date Smoking Tobacco: Never Assessed Comments Unknown Sex and Gender Information Value Date Recorded Sex Assigned at Not on file Legal Sex Female 2:35 PM CDT Gender Identity Not on file Sexual Orientation Not on file documented as of this encounter Miscellaneous Notes * Cerner Conversion Note - Historical ProviderMD - 01/25/2020 6:55 AM SECTION CHIEF DATE OF ADMISSION: 01/22/2020 HISTORY OF [...] applying ice and heat, physical therapy, exercise, [id number] medication, bed rest going to Pain Clinic, [...] to contact her primary physician and her automatic vulcanizing operator to see if we can hold [...] visit and the patient has been afebrile. /[id number] Karim Chaparro, MD, JELANI Pain Certified KR/AQ / KR / MODL CC: MD Sandra Valero APRN Electronically signed by Interface, [facility] Conversion Rail Transportation Operator Cerner at 06/27/2022 8:04 AM CDT documented in this encounter Plan of Treatment Not on file documented as of this encounter Visit Diagnoses Not on filedocumented in this encounter Care Teams Referral Management Liaison Relationship Specialty Start Date End Date Sandra Orozco, RUBEN [address] [address] PCP - General Nurse Practitioner 01/24/22 documented as of this encounter
--- OUTSIDE RECORDS SUMMARY | 2025-01-01 10:44 | XMS_ITS | Continuity of Care Document ---
Author Organization [facility], PAIN MEDICINE [address] [place] [address] Care Team Providers Care Urban Forester Name Role Phone GLADIS DELCID Primary Care [...] 325 mg tablet 2024 025 PAT[facility], [address] [place], [id number], 12/22/2024 11:18:36 hydrocodo ne 7.5 mg-acetam inophen 325 [address] [facility], [address] [address] [place], [id number], 12/22/2024 11:18:36 Patient TargetsNo targets recorded. Patient InstructionsNo instructions recorded. Reason for Referral None Reported. 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 Procedures Surgical History Date Name Laterality Status Provider Name and Address Organization Details Recorded Time 04/10/19 25 Date of Last Mammogram completed Amira Hogan [facility] 05/04/2024 14:53:23 tonsillectomy completed [facility] Valerie [facility] 06/29/2021 11:07:23 partial hysterectomy completed Kailey Valerie BOUCHER [facility] 06/29/2021 11:07:41 cholecystectomy completed Kailey BOUCHER [facility] 06/29/2021 11:07:49 Unlisted px accessory sinus completed Kailey BOUCHER [facility] 06/29/2021 11:08:12 Unlisted px phrnx adnd/tnsl completed Kailey BOUCHER [facility] 06/29/2021 11:08:24 procedure on vein completed [facility] Valerie Arroyo [facility] 06/29/2021 11:08:40 Appendectomy completed Amiradary Hogan [facility] 05/04/2024 14:53:09 Imaging Results None recorded. Procedure Notes None recorded. Medical Equipment None Reported. Allergies Allergen ID Allergen Name Allergen Category Reaction Reaction Severity Criticality Documentation Date Start Date Code Code System Note Provider Name and Address Organization Details Recorded Time 918615 Cipro medicatio n Not available Not available Not available 02/02/20162011 66599 3 RxNorm Comme nt: Creat ed By: Storm Bonner;C reate d Date: 2011 10:08 :22 AM; Not Available [facility] 6 12:52:49 534186 Celebrex medicatio n Not available Not available Not available 02/03/20162011 97994 7 RxNorm Comme nt: Creat ed By: Storm Bonner;C reate d Date: 2011 10:08 :34 AM; Not Available [facility] 6 05:46:24 826374 Levaquin medicatio n Not available Not available Not available 02/03/20162011 47827 2 RxNorm Comme nt: Creat ed By: Storm Bonner;C reate d Date: 2011 10:07 :37 AM; Not Available [facility] 6 08:06:37 196207 Macrobid medicatio n Not available Not available Not available 02/03/20162011 29115 1 RxNorm Comme nt: Creat ed By: Storm Bonner;C reate d Date: 2011 10:08 :04 AM; Not Available [facility] 6 08:06:37 458990 Product containin g penicilli n (product) medicatio n Not available Not available Not available 06/29/2021 14019 8001 SNOMED Kailey Valerie null, [facility] 2 11:02:22 808837 gabapenti n medicatio n Not available Not available Not available 06/29/2021 51532 RxNorm Kailey Valerie null, [facility] 2 11:02:39 088778 leflunomi de medicatio n Not available Not available Not available 06/29/2021 61713 RxNorm Kailey Valerie null, [facility] 2 11:02:54 079883 Naprosyn medicatio n Not available Not available Not available 06/29/202120291 2 RxNorm Kailey Valerie [facility] 2 11:03:06 245161 dextromet horphan hydrobrom mónica medicatio n Not available Not available Not available 05/04/2024 01580 0 RxNorm Amira Hogan [facility] 5 15:09:56 101935 Omnicef medicatio n Not available Not available Not available 05/04/2024 00209 RxNorm Amira Hogan [facility] 5 15:10:19 017796 nortripty line medicatio n Not available Not available Not available 05/04/2024 7531 RxNorm Amira Hogan [facility] 5 15:10:37 344739 Lyrica medicatio n Not available Not available Not available 05/04/2024 15986 1 RxNorm Amira Hogan [facility] 5 15:10:45 Medications Name Sig [...] Updated DateTime 5 152.4 cm 35 kg/m2 81138.0 3 g 9 90 % 90 % 2 L/min 73.02 /min 118/64 mm[Hg] Blanca Gannon [facility] 10:50:52 Social History Question Answer Notes LastModified by Organizat ion Details LastModified Time Tobacco Smoking Status Former Smoker Blanca Gannon [facility] 11/19/2023 14:27:06 What Was The [...] 06/29/2021 Are you currently employed? No disabled [place] [address] Information not available 05/04/2024 Mental Status None recorded. Family History Relationship Description Onset Age of this Age Resolved Age Notes LastModified by Organization Details LastModified Time Unspecified Relation Malignant neoplastic disease [email or web address] Not available 04/12 14:49:35 Unspecified Relation Diabetes mellitus [email or web address] Not available 04/12 14:49:35 Mother Familial cancer of breast [email or web address] Not available 04/12 14:49:35 Mother Malignant neoplasm of pancreas [email or web address] Not available 2024 14:51:13 Mother Chronic obstructive pulmonary disease [email or web address] Not available 2024 14:51:40 Father Hypercholest erolemia [email or web address] Not available 2024 14:51:58 Medical History Condition [...] Y Meningitis N Ulcers N Heart Attack (DC) N Mental Illness Y Ovarian Cancer N [...] ICD10 Code Diagnosis IMO Codes Diagnosis Note [id number] RAOUL KINSEY MD PAIN MEDICINE [address] [facility] [place] [address] 12/22/2024 10:37:41 12/22/2024 10:59:26 Chronic low back pain 040231663 M54.50 Degenerati on of lumbar intervertebral disc 02214478 M51.362 Spinal hilda nosis of lumbar region 83477806 M48.062 Health Concerns Section Related Observation LastModified by Organization Detai ls LastModified Time None Recorded Concern Status LastModified by Organization Details LastModified Time None Recorded Payers Encounter Date Sequence Insurance Name Policy Number Policy Sanchez Covered Member ID Sanchez Member ID Guarantor Name 12/22/2024 1 [place] Casi Cruz [id number] Casi Cruz 12/22/2024 2 COMBINED INSURANCE - [place] [employer] (MEDICARE SUPPLEMENT) Casi Cruz [id number] Casi Cruz Notes Date Note Type Note [...] bladder-leaks. She states she does take an gyez-wmt-yeumola stool softener/laxative. She states she has been [...] s visit.Etoh-Denied. Tobacco-Denied. CBD-Denied. RAOUL KINSEY MD [address] [place] [address], [place], [address], [place] [facility] 12/22/2024 13:29:43 OBGyn Episode No OBEpisode recorded.
--- OUTSIDE RECORDS SUMMARY | 2025-01-01 10:44 | XMS_ITS | Encounter Summary ---
Author Organization [employer] ([place], [place], [place], [place]) Address [address] [place] [address] Care Team Providers Care Branch Service Leader Name Role Phone Sandra Orozco RUBEN Primary Care Provider Encounter Details Date Type Department Care Team (Late st Contact Info) Description 03/01/2020 Transcribed Document [facility] [place] [facility] [place] [address] ProviderAide MD [address] [place] [address] Social History Tobacco Use Types Packs/Day [...] Historical MD Derek - 03/01/2020 11:34 AM DOCUMENT PROCESSOR DATE OF PROCEDURE: 03/01/2020 SURGEON: Noemi Mayfield [...] 18-gauge Tuohy needle was advanced by the dypf-dv-gdydafgxim technique under direct fluoroscopic guidance into the [...] visit and the patient has been afebrile. /[id number] Noemi Mayfield MD, JELANI Pain Certified DELILAH/ANTHONY / KR / MODL /[id number] documented in this encounter Plan of Treatment Not on file documented as of this encounter Visit Diagnoses Not on filedocumented in this encounter Care Teams Branch Service Leader Relationship Specialty Start Date End Date Sandra Orozco, PHYSICIST [employer]OG[employer] [address] [place] [address] PCP - General Nurse Practitioner 01/24/22 documented as of this encounter
--- OUTSIDE RECORDS SUMMARY | 2025-01-01 10:44 | XMS_ITS | Data Portability ---
Author Organization [facility] Office Address [address] [address] Care Team Providers Care Bushing And Broach Operator Name Role Phone GLADIS DELCID Primary Care [...] to mix with alcohol, or self-escalate it. [email or web address] Not available 12/10/2021 19:02:32 Plan of Treatment Reminders Order Date Submit Date Provider Last Modified By Organization Details Last Modified Time Details Appointments None recorded. Lab None recorded. Referral None recorded. Procedures None recorded. Surgeries None recorded. Imaging None recorded. Medication Orders Morton 10 mg-325 mg tablet 2021 022 [facility], Replaced by [facility] [address] [place], [id number], 17:21:53 tizanidine 2 mg tablet 2021 022 [facility] [facility], [facility] by [facility] [address] [place], [id number], 2 16:55:31 Patient TargetsNo targets recorded. Patient Instructions Encounter Date Encounter Id Patient Instructions Last Modified By Organization Details Last Modified Time 12/06/2021 [id number] Patient is to us e non-pharmacologic measures [...] MD and supervision of: Aaliyah Olson MD. [email or web address] Not available 12/10/2021 19:03:54 Reason for Referral None Reported. Problems Name Problem SNOMED Code Status Onset Date Resolution Date Notes Provider Name and Address Organization Details Recorded Time Chronic pain 67792430 Active 2020 (G89.29)O ther chronic pain Not Available [facility] 2 22:51:15 Spondylos is without myelopath y 30290130 Active 2020 (M47.816) Spondylos is without myelopath y or radiculop athy, lumbar region Not Available [facility] 2 22:51:15 Lumbosacr al spondylos is without myelopath y 59812121 Active 2020 (M47.817) Spondylos is without myelopath y or radiculop athy, lumbosacr al region Not Available [facility] 2 22:51:15 Degenerat ion of lumbosacr al intervert ebral disc 74357148 Active 2020 (M51.37)O ther intervert ebral disc degenerat ion, lumbosacr al region Not Available [facility] 2 22:51:15 Lumbosacr al radiculop athy 3978374 Active 2020 (M54.17)R adiculopa thy, lumbosacr al region Not Available [facility] 2 22:51:15 Muscle pain 84953878 Active 2020 (M79.1)My algia Not Available [facility] 2 22:51:15 Pre-surge ry testing Active 2020 (Z01.812) Encounter for preproced ural laborator y examinati on Not Available [facility] 2 22:51:16 Opioid dependenc e 84705313 Active 2020 (F11.20)O pioid dependenc e, uncomplic ated Not Available [facility] 2 22:51:15 Long-term current use of opiate analgesic drug 20023882959 4108 Active 2020 (Z79.891) assistant terminal manager (current) use of opiate analgesic Not Available [facility] 2 22:51:16 Lumbar spondylos is 605143988 Active 2020 (M47.26)O ther spondylos is with radiculop athy, lumbar region Not Available [facility] 2 22:51:15 Lumbosacr al spondylos is with radiculop athy 498166471 Active 2020 (M47.27)O ther spondylos is with radiculop athy, lumbosacr al region Not Available [facility] 2 22:51:15 Spasm of back muscles 793959430 Active 2021 [facility] 2 16:53:49 Problem Notes None recorded. Medical Equipment None Reported. Allergies Allergen ID Allergen Name Allergen Category Reaction Reaction Severity Criticality Documentation Date Start Date Code Code System Note Provider Name and Address Organization Details Recorded Time 67717 Celebrex medicatio n Not available Not available Not available 07/11/20212020 74441 7 RxNorm React ion: Blood in stool s(Mil d) Not Available [facility] 2 22:02:48 35714 leflunomi de Not available Not available Not available Not available 07/11/20212020 91668 RxNorm React ion: reall y bad sores (Mild ) Not Available [facility] 2 22:02:48 93314 Penicilli n Not available itching mild Not available 07/11/20212020 39279 RxNorm Not Available [facility] 2 22:02:48 76457 gabapenti n medicatio n Not available Not available Not available 07/11/20212020 01101 RxNorm React ion: BAD swell ing(M ild) Not Available [facility] 2 22:02:48 48149 nortripty line hydrochlo ride medicatio n Not available Not available Not available 07/11/2021202013 0 RxNorm Not Available [facility] 2 22:02:48 74650 Naprosyn medicatio n Not available Not available Not available 07/11/20212020 2 RxNorm React ion: throa t clos ed (M ild) Not Available [facility] 2 22:02:48 04563 Macrobid medicatio n Not available Not available Not available 07/11/20212020 21006 1 RxNorm React ion: hives and itchi ng(Mi ld) Not Available [facility] 2 22:02:48 Medications Name Sig Start Date [...] Updated DateTime 2 152.4 cm 28.1 kg/m2 70675.3 g 98.9 [degF] 62 /min 97 % [...] ICD10 Code Diagnosis IMO Codes Diagnosis Note [id number] Claribel Ramsay, FLAVOR ROOM WORKER [address] [place] [address] 12/06/2021 16:00:41 12/07/2021 16:37:14 Long-term current use of opiate analgesic drug 9944801172 62545 Z79.891 Patient is noted to be low risk for opioids due to: previous hx of compliance UDS reviewed on and is Appropriat e all previous MOHSEN reviewed and is Appropriat e Opioid dependence 959884 00 F11.20 Medication compliance : According to [...] follows none Lumbosacra l spondylosis with radiculopathy 413485883 M47.27 patient says she is able to usually make this this Rx last about 2 month is using only prn would like to come back in 2 months Spasm of back muscles 20 4466893 M62.830 stable with meds, no changes Health Concerns Section Related Observation LastModified by Organization Detai ls LastModified Time None Recorded Concern Status LastModified by Organization Details LastModified Time None Recorded Advance Directives Directive None Recorded Payers Insurance Date Sequence Insurance Name Policy Number Policy Sanchez Covered Member ID Sanchez Member ID Guarantor Name 12/06/2021 1 [place] Casi Cruz [id number] Casi Cruz 12/06/2021 2 COMBINED INSURANCE - [place] [employer]MINISTRAT[employer] (MEDICARE SUPPLEMENT) Casi Cruz [id number] Casi Cruz Notes Date Note Type Note [...]
--- OUTSIDE RECORDS SUMMARY | 2025-01-01 10:44 | XMS_ITS | Clinical Summary ---
Author Organization [employer] ([place], [place], [place], [place]) Address [address] [place] [address] Care Team Providers Care Call Center Coordinator Name Role Phone OrozcoKrysten randhawarafael MIRANDA Primary Care Provider [phone] Allergies Active Allergy Reactions Criticality Noted Date [...] living situation today? I have a [facility] place to live 10/13/2023 Think about [...] Do you speak a language other than British at [facility]? No 10/13/2023 Do you want [...] 06/22/2009, 08/29/2001 Medical Devices Implanted Type Area Fire Protection Inspector Device Identifier Shelf Expiration Date Model / Serial / Lot Sealant Durasl Spine 5ml 056578 - [id number] Implanted:Qty: 1 on 01/31/2022 by Emeka Fernández MD at [facility] IMPLANTS N/A: Back [employer] 07/09/2023038127 / / [id number] Cement Spinal Confidence 2839-10-000 - [id number] Implanted:Qty: 2 on 10/14/2023 at [facility] IMPLANTS N/A: Back J &J:DEPUY:DEPUY SPINE 06/08/2025 0 [id number] Insurance MEDICARE PART A B GENERIC COMMERCIAL Advance Directives For more information, please contact: [phone] Documents on File Type Date Recorded Patient Echometer Engineer Expl anation Advance Directives and Livin [...] Son First Alternate Healthcare Decision-Maker Care Teams Call Center Coordinator Relationship Specialty Start Date End Date Sandra Orozco APRN [address] [place] [address] PCP - General Nurse Practitioner 01/24/22
--- OUTSIDE RECORDS SUMMARY | 2025-01-01 10:44 | XMS_ITS | Encounter Summary ---
Author Organization [facility] ystem Address [address] [place] [address] Care Team Providers Care Waiter/Waitress Bar Name Role Phone Sandra Orozco APRN Primary Care Provider [phone] Encounter Details Date Type Department Care Team (Late st Contact Info) Description 11/23/2024 Readmission Management [facility] NURSE CALL CENTER [address] [place] [address] Eloise Farrar RN Social History Tobacco Use Types Packs/Day Years Used Date Smoking Tobacco: Former Cigarettes Smokeless Tobacco: Never Comments:Smoked since 1973 Alcohol Use Standard Drinks/Week Comments Not Currently 0 (1 standard drink = 0.6 oz pur e alcohol) former [facility] Utilities Answer Date Recorded In the past 12 months has [employer], gas, oil, or water [employer] threatened to shut off services in your [...] GED or equivalent No 11/13/2024 Preferred Language Irish 11/13/2024 PHQ-2 Answer Date Recorded Patient Health [...] CHF Week 1 Survey Flowsheet Row Responses [facility] patient discharged from? [place] Does the patient have one of the following disease processes/diagnoses(primary or secondary)? CHF CHF Week 1 attempt successful? No Unsuccessful attempts Attempt 1 ELOISE Cruz - Registered Nurse documented in this encounter Plan of Treatment Upcoming Encounters Date Type Department Care Team (Late st Contact Info) Description 02/16/2025 11:00 AM EST Office Visit [facility] CARDIOLOGY [address] [facility] [address] [place] [address] Dina Solano APRN [address] [facility] [address] [place] [address] documented as of this encounter Visit Diagnoses Not on filedocumented in this encounter Care Teams Waiter/Waitress Bar Relationship Specialty Start Date End Date Sandra Orozco APRN [address] [facility] [address] [facility] [address] [place] [address] PCP - General Internal Medicine 05/11/24 documented as of this encounter
[2025-01-01 10:54] VITALS: BP 109/62; PULSE 73; RESP 20; TEMP 36.9; O2SAT 95
[2025-01-01] MEDS: IRON SUCROSE COMPLEX 200 MG in 0.9 % SODIUM CHLORIDE 100 ML 220 MG IV (10:54)
[2025-01-01] MEDS: SODIUM CHLORIDE 0.9% 10ML FLUSH SYRINGE 10 ML IV (10:55)
[2025-01-01 11:42] VITALS: BP 112/69; PULSE 70; RESP 20; O2SAT 96
== END 2025-01-01 23:59 | disposition home or self-care (01) ==
LOC: INF 10:40
PROVIDERS: PCP Nurse Practitioner Family; Visit Provider Nurse Practitioner Family
DX: D50.9 Iron deficiency anemia, unspecified (principal)
CPT/HCPCS: 96365; J1756

== ENCOUNTER 2025-01-06 09:50 | Outpatient (CLI) | payer MEDICARE, OTHER, SELFPAY ==
--- OUTSIDE RECORDS SUMMARY | 2024-11-12 12:30 | XMS_ITS | Encounter Summary ---
[facility] Address [address] [place] [address] Care Team Providers Care Cleaner Carpet And Upholstery Name Role Phone Sandra Orozco APRN Primary Care Provider Reason for Visit * Reason Comments Hyperlipidemia Chronic Venous Insufficiency Atrial Fibrillation Encounter Details Date Type Department Care Team (Late st Contact Info) Description 11/12/2024 12:30 PM EDT Office Visit [facility] CARDIOLOGY [address] [facility] [address], [place] [address] Dina Solano APRN 3000 [facility] [address] [place] [address] Shortness of breath (Primary Dx); Generalized edema; [...] = 0.6 oz pur e alcohol) former [place] Utilities Answer Date Recorded In the past 12 months has [employer] electric, gas, oil, or water company threatened [...] care, and heating? Not very hard 11/13/2024 [facility] of Occupat ional Health - Occupational [...] equivalent No 11/13/2024 Preferred Language Citizen Of [place] 11/13/2024 PHQ-2 Answer Date Recorded Patient Health [...] of breath and lower extremity edema. Her lining maker was concerned about heart failure and advised her to contact our office. I offered to order chest x-ray, proBNP, CMP and 2D echo for patient but advised her it may take some time to get echo and lab results back. Patient reports she is feeling terrible and would like to just present to the emergency department for possibleadmission. * Dina Sloano APRN - 11/12/2024 12:30 PM EDT Images from the original note were not included. Cardiology Established Patient Note Name: Casi Cruz : 1960 PCP: Sandra Orozco APRN Date: 11/12/2024 Department: Minh RE[facility] CARDIOLOGY [address] [place] [address] [address] [facility] [id number] Chief Complaint: Chief Complaint Patient presents with Hyperlipidemia Chronic Venous Insufficiency Atrial Fibrillation Problem list: Paroxysmal atrial fibrillation/History of ischemic CVA/TIAs status post loop explant [id number] (Female, Age, CVA, PAD) PAF noted [...] has been diagnosed with COPD by her lining maker who she was at a follow-up with [...] of breath and lower extremity edema. Her lining maker was concerned about heart failure and advised [...] evaluation. Patient reports she will go to [facility] this afternoon. Follow Up Return in about 2 weeks (around 11/26/2024) for With Me. Patient or patient sales representative printing supplies verbalized consent for the use of Ambient Listening during the visit with Dina Solano APRN for chart documentation. 11/12/2024 12:47 EDT Dina Solano APRN [facility] Cardiology documented in this encounter Plan of Treatment Upcoming Encounters Date Type Department Care Team (Late st Contact Info) Description 02/16/2025 11:00 AM EST Office Visit [facility] CARDIOLOGY [address] [facility] [address] [place] [address] Dina Solano APRN 3000 [facility] [address] [place] [address] documented as of this encounter Visit Diagnoses Diagnosis Shortness of breath- Primary Generalized edema Edema Chronic respiratory failure with hypoxia Paroxysmal atrial fibrillation Atrial fibrillation History of CVA (cerebrovascular accident) Transient ischemic attack (TIA), and cerebral infarction without residual deficits Moderate aortic valve regurgitation Peripheral arterial disease Unspecified peripheral vascular disease documented in this encounter Care Teams Cleaner Carpet And Upholstery Relationship Specialty Start Date End Date Sandra Orozco APRN [address] [place] [id number] PCP - General Internal Medicine 05/11/24 documented as of this encounter
--- OUTSIDE RECORDS SUMMARY | 2024-11-12 21:36 | XMS_ITS | Encounter Summary ---
[facility] Address [address] [place] [address] Care Team Providers Care Youth Specialist Name Role Phone Sandra Orozco APRN Primary Care Provider [phone] Reason for Visit * Reason Comments Shortness of Breath * Auth/Cert Specialty Diagnoses / Procedures Referred By Contac t Referred To Contact Diagnoses Respiratory failure with hypoxia Referral ID Status Reason Start Date Expiration Date Visits Re quested Visits Authorized [id number] 1 1 Encounter Details Date Type Department Care Team (Late st Contact Info) Description 11/12/2024 9:36 PM EDT - 11/14/2024 4:38 PM EDT Hospital Encounter [address] [place] [phone] Vasu Mckeon MD [address] [place] [address] Domitila Villalobos MD [address] [facility] 4[address] [place] [address] Mel Palma DO [address] [place] [address] Vasu Luke MD [address] [address] Referred by health landcare facilitator (Primary Dx); Dyspnea on exertion; Chronic respiratory [...] = 0.6 oz pur e alcohol) former [facility] Utilities Answer Date Recorded In the past 12 months has [employer] electric, gas, oil, or water [employer] threatened to shut off services in your [...] care, and heating? Not very hard 11/13/2024 [facility] of Occupat ional Health - Occupational Stress [...] GED or equivalent No 11/13/2024 Preferred Language Romansh 11/13/2024 PHQ-2 Answer Date Recorded Patient Health [...] 11/12/2024 4:43 PM Minna Vazquez RN * [place] Suicide Severity Rating Scale (Screener/Recent Self-Report) Question [...] from the original note were not included. [facility] Medicine Services DISCHARGE SUMMARY Patient Name: [...] -BLE duplex negative for dvt -on xarelto, b-luicta, bumex -cards followed; continue current meds and [...] outpatient labs/diagnostics: Pcp [address] [facility] ([facility]) ~1 week Regular pulmonary physician [...] motion Neuro: Face symmetric, speech clear, equal digital account coordinator, moves all extremities Cardiac: rrr Resp: slightly [...] Date/Time Respiratory Panel PCR w/COVID-19(SARS-CoV-2) SIDRA/CHECO/SAUD/PAD/COR/ERIC In-House, INSIDE SALES EXECUTIVE Swab in UTM/VTM, 2 HR TAT - Swab, Nasopharynx [[id number]] (Normal) Collected: 11/13/24 0326 Lab Status: Final [...] SCREENING ORDER (NO ISOLATION) - Swab, Nasopharynx [[id number]] (Normal) Collected: 11/12/24 192 Lab Status: Final result Specimen: Swab from Nasopharynx Updated: 11/12/242023 Narrative: The following orders were created for panel order COVID PRE-OP / PRE-PROCEDURE SCREENING ORDER (NO ISOLATION) - Swab, Nasopharynx. Procedure Abnormality Status --------- ------ COVID-19, FLU A/B, RSV P...[[id number]] Normal Final result Please view results for these tests on the individual orders. COVID-19, FLU A/B, RSV PCR 1 HR TAT - Swab, Nasopharynx [[id number]] (Normal) Collected: 11/12/241920 Lab Status: Final result Specimen: Swab from Nasopharynx Updated: 11/12/242023 COVID19 Not Detected Influenza A PCR Not Detected Influenza B PCR Not Detected RSV, PCR Not Detected Urine Culture - Urine, Urine, Clean Catch [[id number]] (Normal) Collected: 11/12/241919 Lab Status: Final result [...] MD 11/12/2024 8:31 PM EDT Workstation ID: [id number] XR Chest 1 View Result Date: 11/12/2024 XR CHEST 1 VW Date of Exam: 11/12/2024 6:28 PM EDT Indication: SOA triage protocol. Comparison: 07/16/2024 Findings: Heart size at the upper limits of normal. Pulmonary vessels normal. Lungs are clear. No pleural effusion. No pneumothorax. Impression: 1. No acute cardiopulmonary disease. Electronically Signed: Arben Neely MD 11/12/2024 7:02 PM EDT Workstation ID: [id number] Results for orders placed during the hospital [...] Comments) Swelling all over Nortriptyline Swelling Poison Orland Extract Hives, Itching, Swelling and Rash Poison [...] week Discharge Follow-up with Specialty: Dr. Kirk ([facility]) 1 week As directed Specialty: Dr. Kirk ([facility]) 1 week Discharge Follow-up with Specialty: regular construction rep (2 weeks or 1st available) As directed Specialty: regular construction rep (2 weeks or 1st available) Vasu Luke MD 11/14/24 Time Spent on Discharge: I spent 35 minutes on this discharge activity which included: dxyq-gy-gkdiyxfqfbyiv with the patient, reviewing the data in the system, coordination of the care with the nursing staff as well as consultants, documentation, and entering orders. * Libertad Urbano, PT - 11/14/2024 7:40 AM EDT Patient Name: Casi Cruz : 1960 Today's Date: 11/14/2024 Admit Date: 11/12/2024 Visit Dx: ICD-10-CM ICD-9-CM 1. Referred by health landcare facilitator Z02.89 V68.89 2. Dyspnea on exertion R06.09 [...] MODERATE BY ECHO Aortic regurgitation MODERATE BY [facility] ECHO Arthritis Asthma Chronic respiratory failure with [...] RECORDER PLACEMENT: 11/06/2018- AE. LOOP RECORDER SERIAL #[id number] SINUS SURGERY General Information Row Name 11/14/24 [...] PT Physical Therapist Mobility Row Name 11/14/24 0742 Bed Mobility Bed Mobility supine-sit -LS Supine-Sit Effie (Bed Mobility) independent -LS Comment, (Bed Mobility) Pt transitioned supine to sit indep on flat bed surface without a rail. PerPT's clinical judgement, pt would be indep sit to supine as well. -LS Row Name 11/14/24 0740 Sit-Stand Transfer Sit-Stand Effie (Transfers) independent -LS Comment, (Sit-Stand Transfer) indep without AD -LS Row Name 11/14/24 0740 Gait/Stairs (Locomotion) Effie Level (Gait) independent -LS Patient was able [...] Therapist Physical Therapy Education Title: PT OT COSTUME TECHNICIAN Therapies (In Progress) Topic: Physical Therapy (Resolved) [...] Description Service Date Service Provider Modifiers Qty [id number] HC PT EVAL LOW COMPLEXITY 4 11/14/2024 [...] EDT Acute Care - Occupational Therapy Discharge [facility] Patient Name: Casi Cruz : 1960 Today's Date: 11/13/2024 Admit Date: 11/12/2024 Visit Dx: ICD-10-CM ICD-9-CM 1. Referred by health landcare facilitator Z02.89 V68.89 2. Dyspnea on exertion R06.09 [...] MODERATE BY ECHO Aortic regurgitation MODERATE BY [facility] ECHO Arthritis Asthma Chronic venous insufficiency CKD [...] RECORDER PLACEMENT: 11/06/2018- AE. LOOP RECORDER SERIAL #[id number] SINUS SURGERY General Information Row Name 11/13/24 [...] Name 11/13/24 142 Bed Mobility Bed Mobility twqkis-cvb-lwklij -AN Rzhnyc-Ylc-Fjxgok Effie (Bed Mobility) independent -AN [facility] 11/13/24 142 Transfers Transfers sit-stand transfer;stand-sit transfer -AN [facility] 11/13/24 142 Sit-Stand Transfer Sit-Stand Effie (Transfers) supervision -AN [facility] 11/13/24 142 Stand-Sit Transfer Stand-Sit Effie (Transfers) supervision -AN [facility] 11/13/24 142 Functional Mobility Functional Mobility- Ind. Level supervision required -AN [facility] 11/13/24 142 Activities of Daily Living BADL Assessment/Intervention lower body dressing;upper body dressing -AN [facility] 11/13/24 142 Lower Body Dressing Assessment/Training Effie Level (Lower Body Dressing) don;socks;independent -AN Position (Lower Body Dressing) edge of bed sitting -AN [facility] 11/13/241421 Upper Body Dressing Assessment/Training Effie Level (Upper Body Dressing) don;pajama/robe;independent -AN Position (Upper Body Dressing) edge of bed sitting -AN User Tierney (r) = Recorded By, (t) = Taken By, (c) = Cosigned By Initials Name Provider Type Che Poole OT Occupational Therapist Obj/Interventions [facility] Name 11/13/24 142 Sensory Assessment (Somatosensory) Sensory Assessment (Somatosensory) right UE -AN Sensory Subjective Reports numbness -AN Sensory Assessment hx of nerve damage -AN [facility] 11/13/24 142 Vision Assessment/Intervention Visual Impairment/Limitations WFL -AN [facility] 11/13/24 142 Range of Motion Comprehensive General Range of Motion no range of motion deficits identified -AN [facility] 11/13/24 142 Strength Comprehensive (MMT) General Manual Muscle Testing (MMT) Assessment no strength deficits identified -AN [facility] 11/13/24 142 Balance Balance Assessment sitting [...] Pain Rating 0/10 - no pain -AN [facility] Name 11/13/241425 Plan of Care [...] (OT) Anticipated Discharge Disposition (OT) home -AN [facility] Name 11/13/241425 Vital Signs Pre SpO2 (%) 95 -AN O2 Delivery Pre Treatment room air -AN O2 Delivery Intra Treatment room air -AN Post SpO2 (%) 95 -AN O2 Delivery Post Treatment room air -AN Pre Patient Position Supine -AN Intra Patient Position Standing -AN Post Patient Position Supine -AN [facility] 11/13/241425 Positioning and Restraints Pre-Treatment Position [...] Therapist Occupational Therapy Education Title: PT OT COSTUME TECHNICIAN Therapies (In Progress) Topic: Occupational Therapy (In [...] Description Service Date Service Provider Modifiers Qty [id number] HC OT EVAL LOW COMPLEXITY 3 11/13/2024 Che Velazquez OT GO 1 OT Discharge Summary Anticipated Discharge Disposition (OT): home Reason for Discharge: Independent Discharge Destination: Home Che Velazquez OT 11/13/2024 documented in this encounter Discharge Instructions * Attachments The following attachments cannot be sent through Care Everywhere. * Heart Failure and Exercise: What to Know (Romansh) * Prednisone Tablets (Romansh) documented in this encounter Medications at Time [...] nursing note reviewed. Exam conducted with a curator of manuscripts present. HENT: Mouth/Throat: Mouth: Mucous membranes are [...] Plan 1-acute on chronic hypoxic respiratory failure-resolved. -93-slrt-fxkk history of smoking-stopped last year -Likely COPD [...] from the original note were not included. [facility] Medicine Services ADMISSION FOLLOW-UP NOTE Patient admitted after midnight, H&P by my partner performed earlier on today's date reviewed. Interim findings, labs, and charting also reviewed. [facility] Problem List has been [...] from the original note were not included. [facility] Medicine Services HISTORY AND PHYSICAL Patient [...] urinary symptoms. Pt follows w/ Pulmonology in [place]. Pt was seen for evaluation this week [...] MODERATE BY ECHO Aortic regurgitation MODERATE BY [facility] ECHO Arthritis Asthma Chronic venous insufficiency CKD [...] RECORDER PLACEMENT: 11/06/2018- AE. LOOP RECORDER SERIAL #[id number] SINUS SURGERY Family History: family history includes [...] Comments) Swelling all over Nortriptyline Swelling Poison Orland Extract Hives, Itching, Swelling and Rash Poison [...] SCREENING ORDER (NO ISOLATION) - Swab, Nasopharynx [[id number]] (Normal) Collected: 11/12/241920 Lab Status: Final result Specimen: Swab from Nasopharynx Updated: 11/12/242023 Narrative: The following orders were created for panel order COVID PRE-OP / PRE-PROCEDURE SCREENING ORDER (NO ISOLATION) - Swab, Nasopharynx. Procedure Abnormality Status --------- ------ COVID-19, FLU A/B, RSV P...[[id number]] Normal Final result Please view results for these tests on the individual orders. COVID-19, FLU A/B, RSV PCR 1 HR TAT - Swab, Nasopharynx [[id number]] (Normal) Collected: 11/12/241920 Lab Status: Final result [...] MD 11/12/2024 8:31 PM EDT Workstation ID: [id number] XR Chest 1 View Result Date: 11/12/2024 XR CHEST 1 VW Date of Exam: 11/12/2024 6:28 PM EDT Indication: SOA triage protocol. Comparison: 07/16/2024 Findings: Heart size at the upper limits of normal. Pulmonary vessels normal. Lungs are clear. No pleural effusion. No pneumothorax. Impression: Impression: 1. No acute cardiopulmonary disease. Electronically Signed: Arben Neely MD 11/12/2024 7:02 PM EDT Workstation ID: [id number] Assessment & Plan Assessment & Plan Respiratory [...] scheduled nebs -pt follows w/ Pulmonary in [place]- seen this week and referred to Cardiology [...] Patient apparently was seen by pulmonology in [place] and was told that her lungs were [...] MODERATE BY ECHO Aortic regurgitation MODERATE BY [facility] ECHO Arthritis Asthma Chronic respiratory failure with [...] RECORDER PLACEMENT: 11/06/2018- AE. LOOP RECORDER SERIAL #[id number] SINUS SURGERY Family History Problem Relation Age [...] Patient apparently was seen by pulmonology in [place] and was told that her lungs were [...] further evaluation per primary team or appropriate actuarial consultant. 5. For SMOOTH on CPAP: Continue CPAP. 6. For acute on chronic hypoxemic respiratory failure: Back to baseline oxygen requirement after diuresis. Continue supplemental oxygen. Wean as tolerated. Electronically signed by: Michele Sanchez MD 11/13/24 18:31 EDT *. Please note that portions of this note were completed with [employer] - a voice recognition program. * Christy [...] has history of COPD with greater than 35-enby-xeoc history of smoking. Quit 1 year ago. She encountered COVID several years ago followed by bilateral pulmonary atelectasis and chronic respiratory failure requiring home O2. She has mild to moderate aortic insufficiency on 2D echocardiogram from 2022 which was performed in [place]. Her last echo was over 2 years [...] MODERATE BY ECHO Aortic regurgitation MODERATE BY [facility] ECHO Arthritis Asthma Chronic venous insufficiency CKD [...] RECORDER PLACEMENT: 11/06/2018- AE. LOOP RECORDER SERIAL #[id number] SINUS SURGERY , Family History Problem Relation Age of Onset Coronary artery disease Mother Heart attack Mother Hyperlipidemia Father Hypertension Father , and Allergies: Celecoxib, Hydrocodone, Cipro [ciprofloxacin hcl], Dexamethasone, Gabapentin, Levofloxacin, Nitrofurantoin, Nortriptyline, Poison oak extract, Repatha [evolocumab], and Wound dressing adhesive Physical Exam Vitals and nursing note reviewed. Exam conducted with a curator of manuscripts present. HENT: Mouth/Throat: Mouth: Mucous membranes are [...] Plan 1-acute on chronic hypoxic respiratory failure -67-fhpx-onmq history of smoking-stopped last year -Likely COPD [...] position changed independently Taken 11/14/2024 0800 by Jlil Altamirano RN Body Position: position changed independently [...] Documentation Taken 11/13/2024 0800 by Jill Altamirano RNmetal trimmer Interventions: no interventions per patient request Intervention: [...] on Bumex, who was sent by her corrections cadet for worsening leg swelling and dyspnea. This [...] MODERATE BY ECHO Aortic regurgitation MODERATE BY [facility] ECHO Arthritis Asthma Chronic venous insufficiency CKD [...] RECORDER PLACEMENT: 11/06/2018- AE. LOOP RECORDER SERIAL #[id number] SINUS SURGERY FAMILY HISTORY Family History Problem [...] pH, UA 5.5 5.0 - 8.0 Specific Fabens, UA >1.030 (H) 1.005 - 1.030 Glucose, [...] MD 11/12/2024 8:31 PM EDT Workstation ID: [id number] XR Chest 1 View Result Date: 11/12/2024 XR CHEST 1 VW Date of Exam: 11/12/2024 6:28 PM EDT Indication: SOA triage protocol. Comparison: 07/16/2024 Findings: Heart size at the upper limits of normal. Pulmonary vessels normal. Lungs are clear. No pleural effusion. No pneumothorax. Impression: 1. No acute cardiopulmonary disease. Electronically Signed: Arben Neely MD 11/12/2024 7:02 PM EDT Workstation ID: [id number] I ordered and independently reviewed the above [...] [address] Angiogram Chest Pulmonary Embolism [place] Draw Comprehensive Metabolic Panel BNP High Sensitivity [...] on Bumex, who was sent by her corrections cadet for worsening leg swelling and dyspnea. This [...] 80s. I have contacted Dr. Kirk her corrections cadet who agrees with admission does not want any special orders at this time but will evaluate in the morning. Hospitalist team consulted for admission. [CC] ED Course User Index [CC] Vasu Mckeon MD Shared Decision Making: After my consideration of clinical presentation and any laboratory/radiology studies obtained, I discussed the findings with the patient/patient reimbursement representative who is in agreement with the treatment plan and the final disposition. Risks and benefits of discharge and/or observation/admission were discussed. OF 01:41 EDT VITALS: BP - 95/49 HR - 87 TEMP - 97.8 ??F (36.6 ??C) (Oral) O2 SATS - 95% DIAGNOSIS Final diagnoses: Referred by health landcare facilitator Dyspnea on exertion Chronic respiratory failure with [...] 11/13/2024 2:31 PM EDT Discharge Planning Assessment [facility] Patient Name: Casi Cruz Today's Date: 11/13/2024 [...] Name 11/13/24 1426 Plan [place] Patient/Family in Agreement with Plan yes Plan Comments Spoke with patient at the bedside. Patient lives alone in a home in [facility]. Wears 2L of oxygen and CPAP provided by [facility]. Independent and ambulates with a straight cane as needed. Not current with and outpatient services. PCP is Sandra Orozco APRN. Pharmacy is [facility]. Insurance is Medicare A & B. Plan is [place] and has transportation. Denies concerns and needs [...] Description 02/16/2025 11:00 AM EST Office Visit [facility] [address] [facility] [facility] [address], [place] [address] Dina Solano APRN [address] [facility] [address] [place] [address] documented as of this encounter Procedures Procedure [...] EDT RESPIRATORY PANEL PCR W/ COVID-19 (SARS-COV-2), INSIDE SALES EXECUTIVE SWAB IN UTM/VTP, 2 HR TAT Routine 11/13/2024 3:26 AM EDT BLOOD GAS, VENOUS W/CO-OXIMETRY STAT 11/12/2024 11:[address] ANGIOGRAM CHEST PULMONARY EMBOLISM STAT 11/12/2024 7:46 PM EDT COVID-19/FLUA&B/RSV, INSIDE SALES EXECUTIVE SWAB IN TRANSPORT MEDIA 1 HR TAT [...] AND COLOR FLOW (11/14/2024 11:32 AM EDT) [facility] EF(MOD-bp) 72.2 % LVIDd 4.3 cm [...] - 10.80 10*3/mm3 11/13/2024 12:36 PM EDT [facility] RBC 3.89 3.77 - 5.28 10*6/mm3 11/13/2024 12:36 PM EDT [facility] Hemoglobin 8.1(L) 12.0 - 15.9 g/dL 11/13/2024 12:36 PM EDT [facility] Hematocrit 29.1(L) 34.0 - 46.6 % 11/13/2024 12:36 PM EDT [facility] MCV 74.8(L) 79.0 - 97.0 fL 11/13/2024 12:36 PM EDT [facility] MCH 20.8(L) 26.6 - 33.0 pg 11/13/2024 12:36 PM EDT [facility] MCHC 27.8(L) 31.5 - 35.7 g/dL 11/13/2024 12:36 PM EDT [facility] RDW 19.0(H) 12.3 - 15.4 % 11/13/2024 12:36 PM EDT [facility] RDW-SD 51.3 37.0 - 54.0 fl 11/13/2024 12:36 PM EDT [facility] MPV 9.8 6.0 - 12.0 fL 11/13/2024 12:36 PM EDT [facility] Platelets 227 140 - 450 10*3/mm3 11/13/2024 12:36 PM EDT [facility] Neutrophil % 63.6 42.7 - 76.0 % 11/13/2024 12:36 PM EDT [facility] Lymphocyte % 23.3 19.6 - 45.3 % 11/13/2024 12:[facility] Monocyte % 8.9 5.0 - 12.0 % 11/13/2024 12:36 PM [facility] Eosinophil % 2.8 0.3 - 6.2 % 11/13/2024 12:36 PM [facility] Basophil % 0.7 0.0 - 1.5 % 11/13/2024 12:36 PM EDT [facility] Immature Grans % 0.7(H) 0.0 - 0.5 % 11/13/2024 12:36 PM [facility] Neutrophils, Absolute 3.44 1.70 - 7.00 10*3/mm3 11/13/2024 12:36 PM [facility] Lymphocytes, Absolute 1.26 0.70 - 3.10 10*3/mm3 11/13/2024 12:36 PM [facility] Monocytes, Absolute 0.48 0.10 - 0.90 10*3/mm3 11/13/2024 12:36 PM [facility] Eosinophils, Absolute 0.15 0.00 - 0.40 10*3/mm3 11/13/2024 12:36 PM EDT [facility] Basophils, Absolute 0.04 0.00 - 0.20 10*3/mm3 11/13/2024 12:36 PM [facility] Immature Grans, Absolute 0.04 0.00 - 0.05 10*3/mm3 11/13/2024 12:36 PM [facility] nRBC 0.0 0.0 - 0.2 /100 WBC 11/13/2024 12:36 PM EDT [facility] Blood Venipuncture / Unknown 11/13/2024 12:07 PM EDT 11/13/2024 12:26 PM EDT Aaliyah Abhijeet MIRANDA LAB BLOOD ORDERABLES Final Re sult [facility]
[address] [place] [address], * (ABNORMAL) Reticulocytes (11/13/2024 12:07 PM EDT) Pathologist [facility] Reticulocyte % 2.78(H) 0.70 - 1.90 % 11/13/2024 12:32 PM EDT [facility] Reticulocyte Absolute 0.1081 0.0200 - 0.1300 10*6/mm3 11/13/2024 12:32 PM EDT [facility] Blood Venipuncture / Unknown 11/13/2024 12:07 PM EDT 11/13/2024 12:26 PM EDT Aaliyah Jha APRN LAB BLOOD ORDERABLES Final Re sult Performing Organization Address City/[facility]/ZIP Co de Phone Number [facility]
[address] [place] [address], * Folate RBC (11/13/2024 12:07 PM EDT) Folate, Hemolysate 538.0 Not Estab. ng/mL 11/16/2024 9:09 AM EDT [facility] Hematocrit 40.7 34.0 - 46.6 % 11/16/2024 9:09 AM EDT [facility] RBC Folate 1322 >498 ng/mL 11/16/2024 9:09 AM EDT [facility] Blood Venipuncture / Unknown 11/13/2024 12:07 PM EDT 11/13/2024 12:26 PM EDT Narrative [facility] - 11/16/2024 9:09 AM EDT Performed at: [address] [place] [id number] Broadband Technician: Gomez Crooks PhD, Phone: [phone] Aaliyah Jha APRN LAB BLOOD ORDERABLES Edited R esult - Final Performing Organization Address City/[facility]/ZIP Co de Phone Number [facility] [address] [place] [address], [place] [phone] * TSH (11/13/2024 12:07 PM EDT) TSH 2.770 0.270 - 4.200 uIU/mL 11/13/2024 12:56 PM EDT [facility] Blood Venipuncture / Unknown 11/13/2024 12:07 PM EDT 11/13/2024 12:26 PM EDT Aaliyah Jha APRN LAB BLOOD ORDERABLES Final Re sult Performing Organization Address City/[facility]/ZIP Co de Phone Number [facility]
[address] [place] [address], [place] [phone] * (ABNORMAL) Hemoglobin A1c (11/13/2024 12:07 PM EDT) Hemoglobin A1C 5.84(H) 4.80 - 5.60 % 11/13/2024 1:23 PM EDT [facility] Blood Venipuncture / Unknown 11/13/2024 12:07 PM EDT 11/13/2024 12:26 PM EDT Narrative [facility] - 11/13/2024 1:23 PM EDT Hemoglobin A1C Ranges: Increased Risk for Diabetes 5.7% to 6.4% Diabetes >= 6.5% Diabetic Goal < 7.0% Aaliyah Abhijeet CREWMAN ARMOURED PERSONNEL CARRIER M113 LAB BLOOD ORDERABLES Final Re sult Performing Organization Address City/[facility]/ZIP Co de Phone Number [facility]
[address] [place] [address], * Magnesium (11/13/2024 12:07 PM EDT) Magnesium 1.9 1.6 - 2.4 mg/dL 11/13/2024 12:56 PM EDT [facility] Blood Venipuncture / Unknown 11/13/2024 12:07 PM EDT 11/13/2024 12:26 PM EDT Aaliyah Jha APRN LAB BLOOD ORDERABLES Final Re sult Performing Organization Address [facility] Co de Phone Number [facility]
[address] [place] [address], * (ABNORMAL) Basic Metabolic Panel (11/13/2024 12:07 PM EDT) Glucose 100(H) 65 - 99 mg/dL 11/13/2024 12:56 PM EDT [facility] BUN 19.7 8.0 - 23.0 mg/dL 11/13/2024 12:56 PM EDT [facility] Creatinine 0.93 0.57 - 1.00 mg/dL 11/13/2024 12:56 PM EDT [facility] Sodium 143 136 - 145 mmol/L 11/13/2024 12:56 PM EDT [facility] Potassium 3.8 3.5 - 5.2 mmol/L 11/13/2024 12:56 PM EDT [facility] Chloride 102 98 - 107 mmol/L 11/13/2024 12:56 PM EDT [facility] CO2 31.1(H) 22.0 - 29.0 mmol/L 11/13/2024 12:56 PM EDT [facility] Calcium 8.6 8.6 - 10.5 mg/dL 11/13/2024 12:56 PM EDT [facility] BUN/Creatinine Ratio 21.2 7.0 - 25.0 11/13/2024 12:56 PM EDT [facility] Anion Gap 9.9 5.0 - 15.0 mmol/L 11/13/2024 12:56 PM EDT [facility] eGFR 67.9 >60.0 mL/min/1.7 3 11/13/2024 12:56 PM EDT [facility] Blood Venipuncture / Unknown 11/13/2024 12:07 PM EDT 11/13/2024 12:26 PM EDT Narrative [facility] - 11/13/2024 12:56 PM EDT [...] race as a factor us Aaliyah Jha [employer]ERSON[employer]RIER [id number] LAB BLOOD ORDERABLES Final Re sult [facility]
[address] [place] [address], * Duplex Venous Lower Extremity - Bilateral [...] 12 Lead Dyspnea (11/13/2024 5:53 AM EDT) [facility] QT Interval 410 ms ECG QTC [...] change was found Confirmed by ABDULLAHI HENDRICKSON ([id number]) on 11/13/2024 7:39:07 PM Referred By: Confirmed [...] change was found Confirmed by ABDULLAHI HENDRICKSON ([id number]) on 11/13/2024 7:39:07 PM Referred By: Confirmed By: ABDULLAHI HENDRICKSON Aaliyah Jha APRN ECG ORDERABLES Final Result ECG * Respiratory Panel PCR w/COVID-19(SARS-CoV-2) SIDRA/CHECO/SAUD/PAD/COR/ERIC In-House, [employer] Swab in UTM/VTM, 2 HR TAT - Swab, Nasopharynx (11/13/2024 3:26 AM EDT) ADENOVIRUS, PCR Not Detected Not Detected [facility] 11/13/2024 4:48 AM EDT [facility] Coronavirus 229E Not Detected Not Detected [facility] 11/13/2024 4:48 AM EDT [facility] Coronavirus HKU1 Not Detected Not Detected [facility] 11/13/2024 4:48 AM EDT [facility] Coronavirus NL63 Not Detected Not Detected [facility] 11/13/2024 4:48 AM EDT [facility] Coronavirus OC43 Not Detected Not Detected [facility] 11/13/2024 4:48 AM EDT [facility] COVID19 Not Detected Not Detected - Ref. Range [facility] 11/13/2024 4:48 AM EDT [facility] Human Metapneumovirus Not Detected Not Detected [facility] 11/13/2024 4:48 AM EDT [facility] Human Rhinovirus/Enterov irus Not Detected Not Detected [facility] 11/13/2024 4:48 AM EDT [facility] Influenza A PCR Not Detected Not Detected [facility] 11/13/2024 4:48 AM EDT [facility] Influenza B PCR Not Detected Not Detected [facility] 11/13/2024 4:48 AM EDT [facility] Parainfluenza Virus 1 Not Detected Not Detected [facility] 11/13/2024 4:48 AM EDT [facility] Parainfluenza Virus 2 Not Detected Not Detected [facility] 11/13/2024 4:48 AM EDT [facility] Parainfluenza Virus 3 Not Detected Not Detected [facility] 11/13/2024 4:48 AM EDT [facility] Parainfluenza Virus 4 Not Detected Not Detected [facility] 11/13/2024 4:48 AM EDT [facility] RSV, PCR Not Detected Not Detected [facility] 11/13/2024 4:48 AM EDT [facility] Bordetella pertussis pcr Not Detected Not Detected [facility] 11/13/2024 4:48 AM EDT [facility] Bordetella parapertussis PCR Not Detected Not Detected [facility] 11/13/2024 4:48 AM EDT [facility] Chlamydophila pneumoniae PCR Not Detected Not Detected [facility] 11/13/2024 4:48 AM EDT [facility] Mycoplasma pneumo by PCR Not Detected Not Detected [facility] 11/13/2024 4:48 AM EDT [facility] Swab Nasopharyngeal structure / Unknown Collection / Unknown 11/13/2024 3:26 AM EDT 11/13/2024 4:00 AM EDT [facility] - 11/13/2024 4:48 AM [...] MICROBIOLOGY - GENERAL ORDERA BLES Final Result [facility]
[address] [place] [address], * (ABNORMAL) Blood Gas, Venous With Co-Ox (11/12/2024 11:16 PM EDT) Site Nurse/Dr Draw 11/12/2024 11:17 PM EDT [facility] THERAPY pH, Venous 7.337 7.310 - 7.410 pH Units 11/12/2024 11:17 PM EDT [facility] THERAPY pCO2, Venous 59.6(H) 41.0 - 51.0 mm Hg 11/12/2024 11:17 PM EDT [facility]ER[facility] Comment:83 Value above refer ence range pO2, Venous 30.4 27.0 - 53.0 mm Hg 11/12/2024 11:17 PM EDT [facility] THERAP[facility] HCO3, Venous 31.9(H) 22.0 - 28.0 mmol/L 11/12/2024 11:17 PM EDT [facility] THERAP[facility] Base Excess, Venous 5.0(H) -2.0 - 2.0 mmol/L 11/12/2024 11:17 PM EDT [facility] THERAP[facility] Hemoglobin, Blood Gas 9.3(L) 14 - 18 g/dL 11/12/2024 11:17 PM EDT [facility] THERAPY Oxyhemoglobin Venous 48.3 % 06/2024 11:17 PM EDT [facility] THER[facility] Methemoglobin Venous 0.4 % 06/2024 11:17 PM EDT [facility] THERAPY Carboxyhemoglobin Venous 1.7 % 11/12/2024 11:17 PM EDT [facility] THERAPY CO2 Content 33.7(H) 22 - 33 mmol/L 11/12/2024 11:17 PM EDT [facility] THERAPY Temperature 37.0 11/12/2024 11:17 PM EDT [facility] THERAPY Barometric Pressure for Blood Gas 11/12/2024 11:17 PM EDT [facility] THERAPY Comment:N/A Modality Nasal Cannula 11/12/2024 11:17 PM EDT [facility] THERAPY FIO2 28 % 11/12/2024 11:17 PM EDT [facility] THERAPY Rate 0 Breaths/ minute 11/12/2024 11:17 PM EDT [facility] THERAPY PIP 0 cmH2O 11/12/2024 11:17 PM EDT [facility] THERAPY Comment:Meter: [id number] File Clerk: [id number] IPAP 0 11/12/2024 11:17 PM EDT [facility] THERAPY EPAP 0 11/12/2024 11:17 PM EDT [facility] THERAPY Venous Blood 11/12/2024 11:1 6 PM EDT 11/12/2024 11:16 PM EDT us Vasu Mckeon MD LAB BLOOD ORDERABLES Fin al Result [facility] THERAPY
[address] [place] [address], * CT Angiogram Chest Pulmonary Embolism (11/12/2024 7:46 PM EDT) Anatomical Region Laterality Modality Chest N/A Computed Tomogra phy 11/12/2024 8:22 PM EDT Impressions 11/12/2024 8:31 PM EDT No evidence of pulmonary embolus. No acute abnormality. Electronically Signed: Jed Machuca MD 11/12/2024 8:31 PM EDT Workstation ID: [id number] Hermann 11/12/2024 8:[address] ANGIOGRAM [...] MD 11/12/2024 8:31 PM EDT Workstation ID: [id number] Vasu Mckeon MD IMG CT ORDERABLES Final Result * COVID-19, FLU A/B, RSV PCR 1 HR TAT - Swab, Nasopharynx (11/12/2024 7:21 PM EDT) Pathologist [facility] COVID19 Not Detected Not Detected - Ref. Range CEPHEID GENEXPERT 11/12/2024 8:24 PM EDT [facility] Influenza A PCR Not Detected Not Detected [facility] 11/12/2024 8:24 PM EDT [facility] Influenza B PCR Not Detected Not Detected [facility] [employer]EXP[employer] 11/12/2024 8:24 PM EDT [facility] RSV, PCR Not Detected Not Detected [facility] GENEXP[employer] 11/12/2024 8:24 PM EDT [facility] Swab Nasopharyngeal structure / Unknown Collection / Unknown 11/12/2024 7:21 PM EDT 11/12/2024 7:46 PM EDT Vasu Mckeon MD MICROBIOLOGY - GENERAL O RDERABLES Final Result [facility]
[address] [place] [address], * Sodium, Urine, Random - Urine, Clean Catch (11/12/2024 7:20 PM EDT) Pathologist [facility] Sodium, Urine <20 mmol/L 11/13/2024 3:37 AM EDT [facility] Urine Urine specimen obtained by clean catch procedure / Unknown Collection / Unknown 11/12/2024 7:20 PM EDT 11/12/2024 7:46 PM EDT [facility] - 11/13/2024 3:37 AM EDT Reference intervals for random urine have not been established. Clinical usage is dependent upon physician's interpretation in combination with other laboratory tests. us Aaliyah Jha APRN URINE ORDERABLES Final Result [facility]
[address] [place] [address], * Osmolality, Urine - Urine, Clean Catch (11/12/2024 7:20 PM EDT) Osmolality, Urine 837 300 - 1,100 mOsm/kg 11/13/2024 4:00 AM EDT [facility] Urine Urine specimen obtained by clean catch procedure / Unknown Collection / Unknown 11/12/2024 7:20 PM EDT 11/12/2024 7:46 PM EDT us Aaliyah Jha APRN URINE ORDERABLES Final Result [facility]
[address] [place] [address], * Creatinine Urine Random (kidney function) GFR component - Urine, Clean Catch (11/12/2024 7:20 PM EDT) Creatinine, Urine 276.6 mg/dL 11/13/2024 9:46 AM EDT [facility] Urine Urine specimen obtained by clean catch procedure / Unknown Collection / Unknown 11/12/2024 7:20 PM EDT 11/13/2024 3:13 AM EDT [facility] - 11/13/2024 9:46 AM EDT Reference intervals for random urine have not been established. Clinical usage is dependent upon physician's interpretation in combination with other laboratory tests. us Aaliyah Jha APRN URINE ORDERABLES Final Result Performing Organization Address City/[facility]/ZIP Co de Phone Number [facility]
[address] [place] [address], * Urine Culture - Urine, Urine, Clean Catch (11/12/2024 7:20 PM EDT) Urine Culture No growth [id number] 11/14/2024 12:26 PM EDT [facility] Urine Urine specimen obtained by clean catch procedure / Unknown Collection / Unknown 11/12/2024 7:20 PM EDT 11/13/2024 12:57 AM EDT Vasu Mckeon MD MICROBIOLOGY - GENERAL O RDERABLES Final Result Performing Organization Address City/[facility]/ZIP Co de Phone Number [facility]
[address] [place] [address], * (ABNORMAL) Urinalysis, Microscopic Only - Urine, Clean Catch (11/12/2024 7:20 PM EDT) RBC, UA 0-2 None Seen, 0-2 /HPF 11/12/2024 8:00 PM EDT [facility] WBC, UA 11-20(A) None Seen, 0-2 /HPF 11/12/2024 8:00 PM EDT [facility] Bacteria, UA None Seen None Seen /HPF 11/12/2024 8:00 PM EDT [facility] Squamous Epithelial Cells, UA 3-6(A) None Seen, 0-2 /HPF 11/12/2024 8:00 PM EDT [facility] Hyaline Casts, UA 0-2 None Seen /LPF 11/12/2024 8:00 PM EDT [facility] Methodology Automated Microscopy 11/12/2024 8:00 PM EDT [facility] Urine Urine specimen obtained by clean catch procedure / Unknown Collection / Unknown 11/12/2024 7:20 PM EDT 11/12/2024 7:46 PM EDT us Vasu Mckeon MD URINE ORDERABLES Final R esult [facility]
[address] [place] [address], * (ABNORMAL) Urinalysis With Microscopic If Indicated (No Culture) - Urine, Clean Catch (11/12/2024 7:20 PM EDT) Color, UA Yellow Yellow, Straw 11/12/2024 8:00 PM EDT [facility] Appearance, UA Clear Clear 11/12/2024 8:00 PM EDT [facility] pH, UA 5.5 5.0 - 8.0 11/12/2024 8:00 PM EDT [facility] Specific Fabens, UA >1.030(H) 1.005 - 1.030 11/12/2024 8:00 PM EDT [facility] Glucose, UA Negative Negative 11/12/2024 8:00 PM EDT [facility] Ketones, UA Negative Negative 11/12/2024 8:00 PM EDT [facility] Bilirubin, UA Negative Negative 11/12/2024 8:00 PM EDT [facility] Blood, UA Negative Negative 11/12/2024 8:00 PM EDT [facility] Protein, UA Trace(A) Negative 11/12/2024 8:00 PM EDT [facility] Leuk Esterase, UA Small (1+)(A) Negative 11/12/2024 8:00 PM EDT [facility] Nitrite, UA Negative Negative 11/12/2024 8:00 PM EDT [facility] Urobilinogen, UA 1.0 E.U./dL 0.2 - 1.0 E.U./dL 11/12/2024 8:00 PM EDT [facility] Urine Urine specimen obtained by clean catch procedure / Unknown Collection / Unknown 11/12/2024 7:20 PM EDT 11/12/2024 7:46 PM EDT Vasu Mckeon MD URINE ORDERABLES Final R esult [facility]
[address] [place] [address], * Ferritin (11/12/2024 7:16 PM EDT) Ferritin 13.80 13.00 - 150.00 ng/mL 11/13/2024 3:24 AM EDT [facility] Blood Venipuncture / Unknown 11/12/2024 7:16 PM EDT 11/13/2024 2:57 AM EDT Narrative [facility] - 11/13/2024 3:24 AM EDT Results may be falsely decreased if patient taking Biotin. Aaliyah Jha APRN LAB BLOOD ORDERABLES Final Re sult Performing Organization Address City/[facility]/ZIP Co de Phone Number [facility]
[address] [place] [address], * (ABNORMAL) Iron Profile w/o Ferritin (11/12/2024 7:16 PM EDT) Iron 21(L) 37 - 145 mcg/dL 11/13/2024 3:24 AM EDT [facility] Iron Saturation (TSAT) 4(L) 20 - 50 % 11/13/2024 3:24 AM EDT [facility] Transferrin 321 200 - 360 mg/dL 11/13/2024 3:24 AM EDT [facility] TIBC 478 298 - 536 mcg/dL 11/13/2024 3:24 AM EDT [facility] Blood Venipuncture / Unknown 11/12/2024 7:16 PM EDT 11/13/2024 2:57 AM EDT Aaliyahcolleen Jha APRN LAB BLOOD ORDERABLES Final Re sult Performing Organization Address [facility] Co de Phone Number [facility]
[address] [place] [address], * (ABNORMAL) High Sensitivity Troponin T 1Hr (11/12/2024 7:16 PM EDT) HS Troponin T 16(H) <14 ng/L 11/12/2024 7:53 PM EDT [facility] Troponin T Numeric Delta -1 ng/L 11/12/2024 7:53 PM EDT [facility] Troponin T % Delta -6 Abnormal if >/= 20% 11/12/2024 7:53 PM EDT [facility] Blood Line / Unknown 11/12/2024 7: 16 PM EDT 11/12/2024 7:20 PM EDT Narrative [facility] - 11/12/2024 7:53 PM EDT [...] ORDERABLES Fin al Result Performing Organization Address [facility]/ZIP Co de Phone Number [facility]
[address] [place] [address], * XR Chest 1 View (11/12/2024 6:30 PM EDT) Anatomical Region Laterality Modality Body N/A Radiographic Tatyana ging 11/12/2024 7:00 PM EDT Impressions 11/12/2024 7:02 PM EDT Impression: 1. No acute cardiopulmonary disease. Electronically Signed: Arben Neely MD 11/12/2024 7:02 PM EDT Workstation ID: [id number] Narrative 11/12/2024 7:02 PM EDT XR CHEST [...] MD 11/12/2024 7:02 PM EDT Workstation ID: [id number] Vasu Mckeon MD IMG DIAGNOSTIC IMAGING O RDERABLES Final Result * (ABNORMAL) Vitamin B12 (11/12/2024 5:17 PM EDT) [facility] Vitamin B-12 1,669(H) 211 - 946 pg/mL 11/13/2024 9:54 AM EDT [facility] Blood Venipuncture / Unknown 11/12/2024 5:17 PM EDT 11/13/2024 2:59 AM EDT Narrative [facility] - 11/13/2024 9:54 AM EDT Results may be falsely increased if patient taking Biotin. Aaliyah Jha APRN LAB BLOOD ORDERABLES Final Re sult [facility]
[address] [place] [address], * Folate (11/12/2024 5:17 PM EDT) [facility] Folate >20.00 4.78 - 24.20 ng/mL 11/13/2024 9:54 AM EDT [facility] Blood Venipuncture / Unknown 11/12/2024 5:17 PM EDT 11/13/2024 2:59 AM EDT Narrative [facility] - 11/13/2024 9:54 AM EDT Results may be falsely increased if patient taking Biotin. Aaliyah Jha APRN LAB BLOOD ORDERABLES Final Re sult [facility]
[address] [place] [address], * Scan Slide (11/12/2024 5:17 PM EDT) Anisocytosis Slight/1+ None Seen 11/12/2024 6:07 PM EDT [facility] Hypochromia Slight/1+ None Seen 11/12/2024 6:07 PM EDT [facility] Microcytes Mod/2+ None Seen 11/12/2024 6:07 PM EDT [facility] WBC Morphology Normal Normal 11/12/2024 6:07 PM EDT [facility] Platelet Morphology Normal Normal 11/12/2024 6:07 PM EDT [facility] Blood Venipuncture / Unknown 11/12/2024 5:17 PM EDT 11/12/2024 5:17 PM EDT Vasu Mckeon MD LAB BLOOD ORDERABLES Fin al Result [facility]
[address] [place] [address], [place] [phone] * Magnesium (11/12/2024 5:17 PM EDT) Magnesium 1.9 1.6 - 2.4 mg/dL 11/12/2024 5:51 PM EDT [facility] Blood Venipuncture / Unknown 11/12/2024 5:17 PM EDT 11/12/2024 5:17 PM EDT Vasu Mckeon MD LAB BLOOD ORDERABLES Fin al Result Performing Organization Address City/[facility]/ZIP Co de Phone Number [facility]
[address] [place] [address], * Phosphorus (11/12/2024 5:17 PM EDT) Phosphorus 4.1 2.5 - 4.5 mg/dL 11/12/2024 5:51 PM EDT [facility] Blood Venipuncture / Unknown 11/12/2024 5:17 PM EDT 11/12/2024 5:17 PM EDT Vasu Mckeon MD LAB BLOOD ORDERABLES Fin al Result Performing Organization Address [facility] Co de Phone Number [facility]
[address] [place] [address], * TSH Rfx On Abnormal To Free T4 (11/12/2024 5:17 PM EDT) TSH 2.480 0.270 - 4.200 uIU/mL 11/12/2024 5:51 PM EDT [facility] Blood Venipuncture / Unknown 11/12/2024 5:17 PM EDT 11/12/2024 5:17 PM EDT Vasu Mckeon MD LAB BLOOD ORDERABLES Fin al Result Performing Organization Address City/[facility]/ZIP Co de Phone Number [facility]
[address] [place] [address], * Lipase (11/12/2024 5:17 PM EDT) Lipase 20 13 - 60 U/L 11/12/2024 5:51 PM EDT [facility] Blood Venipuncture / Unknown 11/12/2024 5:17 PM EDT 11/12/2024 5:17 PM EDT Vasu Mckeon MD LAB BLOOD ORDERABLES Fin al Result Performing Organization Address [facility] Phone Number [facility]
[address] [place] [address], * Lactic Acid, Plasma (11/12/2024 5:17 PM EDT) [facility] Lactate 1.6 0.5 - 2.0 mmol/L 11/12/2024 5:49 PM EDT [facility] Comment:Falsely depressed re sults may occur on samples drawn from patients receiving N-Acetylcysteine (NAC) or Metamizole. Blood Venipuncture / Unknown 11/12/2024 5:17 PM EDT 11/12/2024 5:17 PM EDT Vasu Mckeon MD LAB BLOOD ORDERABLES Fin al Result Performing Organization Address [facility] Phone Number [facility]
[address] [place] [address], * (ABNORMAL) D-dimer, Quantitative (11/12/2024 5:17 PM EDT) [facility] D-Dimer, Quantitative 10.36(H) 0.00 - 0.66 MCGFEU/mL 11/12/2024 6:00 PM EDT [facility] Blood Venipuncture / Unknown 11/12/2024 5:17 PM EDT 11/12/2024 5:17 PM EDT Narrative [facility] - 11/12/2024 6:00 PM EDT According to the assay special machine stitcher's published package insert, a normal (<0.50 MCGFEU/mL) D-dimer result in conjunction with a non-high clinical probability assessment, excludes deep vein thrombosis (DVT) and pulmonary embolism (PE) with high sensitivity. D-dimer values increase with age and this can make VTE exclusion of an older population difficult. To address this, the [employer], based on best available [...] MCGFEU/mL. Vasu Mckeon MD LAB BLOOD ORDERABLES [facility] al Result [facility]
[address] [place] [address] * (ABNORMAL) CBC Auto Differential (11/12/2024 5:17 PM EDT) [facility] WBC 5.82 3.40 - 10.80 10*3/mm3 11/12/2024 6:07 PM EDT [facility] RBC 4.33 3.77 - 5.28 10*6/mm3 11/12/2024 6:07 PM EDT [facility] Hemoglobin 9.0(L) 12.0 - 15.9 g/dL 11/12/2024 6:07 PM EDT [facility] Hematocrit 32.5(L) 34.0 - 46.6 % 11/12/2024 6:07 PM EDT [facility] MCV 75.1(L) 79.0 - 97.0 fL 11/12/2024 6:07 PM EDT [facility] MCH 20.8(L) 26.6 - 33.0 pg 11/12/2024 6:07 PM EDT [facility] MCHC 27.7(L) 31.5 - 35.7 g/dL 11/12/2024 6:07 PM EDT [facility] RDW 19.1(H) 12.3 - 15.4 % 11/12/2024 6:07 PM EDT [facility] RDW-SD 51.8 37.0 - 54.0 fl 11/12/2024 6:07 PM EDT [facility] MPV 9.5 6.0 - 12.0 fL 11/12/2024 6:07 PM EDT [facility] Platelets 240 140 - 450 10*3/mm3 11/12/2024 6:07 PM EDT [facility] Neutrophil % 58.8 42.7 - 76.0 % 11/12/2024 6:07 PM EDT [facility] Lymphocyte % 26.5 19.6 - 45.3 % 11/12/2024 6:07 PM EDT [facility] Monocyte % 7.6 5.0 - 12.0 % 11/12/2024 6:07 PM EDT [facility] Eosinophil % 5.5 0.3 - 6.2 % 11/12/2024 6:07 PM EDT [facility] Basophil % 0.7 0.0 - 1.5 % 11/12/2024 6:07 PM EDT [facility] Immature Grans % 0.9(H) 0.0 - 0.5 % 11/12/2024 6:07 PM EDT [facility] Neutrophils, Absolute 3.43 1.70 - 7.00 10*3/mm3 11/12/2024 6:07 PM EDT [facility] Lymphocytes, Absolute 1.54 0.70 - 3.10 10*3/mm3 11/12/2024 6:07 PM EDT [facility] Monocytes, Absolute 0.44 0.10 - 0.90 10*3/mm3 11/12/2024 6:07 PM EDT [facility] Eosinophils, Absolute 0.32 0.00 - 0.40 10*3/mm3 11/12/2024 6:07 PM EDT [facility] Basophils, Absolute 0.04 0.00 - 0.20 10*3/mm3 11/12/2024 6:07 PM EDT [facility] Immature Grans, Absolute 0.05 0.00 - 0.05 10*3/mm3 11/12/2024 6:07 PM EDT [facility] nRBC 0.0 0.0 - 0.2 /100 WBC 11/12/2024 6:07 PM EDT [facility] Blood Venipuncture / Unknown 11/12/2024 5:17 PM EDT 11/12/2024 5:17 PM EDT Narrative [facility] - 11/12/2024 6:07 PM EDT Appended report. These results have been appended to a previously verified report. Vasu Mckeon MD LAB BLOOD ORDERABLES Fin al Result [facility]
[address] [place] [address], * Light Blue Top (11/12/2024 5:17 PM EDT) Extra Tube Hold for add-ons. 11/12/2024 5:31 PM EDT [facility] Comment:Auto resulted Blood Venipuncture / Unknown 11/12/2024 5:17 PM EDT 11/12/2024 5:17 PM EDT Vasu Mckeon MD LAB BLOOD ORDER ONLY Fin al Result [facility]
[address] [place] [address], * [place] Top (11/12/2024 5:17 PM EDT) Extra Tube Hold for add-ons. 11/[facility]2024 [facility] Comment:Auto resulted. Blood Venipuncture / Unknown 11/12/2024 5:17 PM EDT 11/12/2024 5:17 PM EDT Vasu Mckeon MD LAB BLOOD ORDER ONLY Fin al Result Performing Organization Address City/[facility]/ZIP Co de Phone Number [facility]
[address] [place] [address], [place] [phone] * Gold Top - SST (11/12/2024 5:17 PM EDT) Extra Tube Hold for add-ons. 11/12/2024 5:32 PM EDT [facility] Comment:Auto resulted. Blood Venipuncture / Unknown 11/12/2024 5:17 PM EDT 11/12/2024 5:17 PM EDT Vasu Mckeon MD LAB BLOOD ORDER ONLY Fin al Result Performing Organization Address [facility] Co de Phone Number [facility]
[address] [place] [address], [place] [phone] * Lavender Top (11/12/2024 5:17 PM EDT) Extra Tube hold for add-on 11/12/2024 5:31 PM EDT [facility] Comment:Auto resulted Blood Venipuncture / Unknown 11/12/2024 5:17 PM EDT 11/12/2024 5:17 PM EDT Vasu Mckeon MD LAB BLOOD ORDER ONLY Fin al Result Performing Organization Address City/[facility]/ZIP Co de Phone Number [facility]
[address] [place] [address], [place] [phone] * Green Top (Gel) (11/12/2024 5:17 PM EDT) Extra Tube Hold for add-ons. 11/12/2024 5:31 PM EDT [facility] Comment:Auto resulted. Blood Venipuncture / Unknown 11/12/2024 5:17 PM EDT 11/12/2024 5:17 PM EDT Vasu Mckeon MD LAB BLOOD ORDER ONLY Fin al Result Performing Organization Address City/[facility]/ZIP Co de Phone Number [facility]
[address] [place] [address], * (ABNORMAL) High Sensitivity Troponin T (11/12/2024 5:17 PM EDT) [facility] HS Troponin T 17(H) <14 ng/L 11/12/2024 5:51 PM EDT [facility] Blood Venipuncture / Unknown 11/12/2024 5:17 PM EDT 11/12/2024 5:17 PM EDT Narrative [facility] - 11/12/2024 5:51 PM EDT High [...] ORDERABLES Fin al Result Performing Organization Address City/[facility]/ZIP Co de Phone Number [facility]
[address] [place] [address], * BNP (11/12/2024 5:17 PM EDT) [facility] proBNP 247.0 0.0 - 900.0 pg/mL 11/12/2024 5:51 PM EDT [facility] Blood Venipuncture / Unknown 11/12/2024 5:17 PM EDT 11/12/2024 5:17 PM EDT Narrative [facility] - 11/12/2024 5:51 PM EDT This [...] MD LAB BLOOD ORDERABLES Fin al Result [facility]
[address] [place] [address], * (ABNORMAL) Comprehensive Metabolic Panel (11/12/2024 5:17 PM EDT) Glucose 96 65 - 99 mg/dL 11/12/2024 5:51 PM EDT [facility] BUN 24.7(H) 8.0 - 23.0 mg/dL 11/12/2024 5:51 PM EDT [facility] Creatinine 1.06(H) 0.57 - 1.00 mg/dL 11/12/2024 5:51 PM EDT [facility] Sodium 139 136 - 145 mmol/L 11/12/2024 5:51 PM EDT [facility] Potassium 4.4 3.5 - 5.2 mmol/L 11/12/2024 5:51 PM EDT [facility] Chloride 101 98 - 107 mmol/L 11/12/2024 5:51 PM EDT [facility] CO2 27.9 22.0 - 29.0 mmol/L 11/12/2024 5:51 PM EDT [facility] Calcium 9.1 8.6 - 10.5 mg/dL 11/12/2024 5:51 PM EDT [facility] Total Protein 6.4 6.0 - 8.5 g/dL 11/12/2024 5:51 PM EDT [facility] Albumin 4.0 3.5 - 5.2 g/dL 11/12/2024 5:51 PM EDT [facility] ALT (SGPT) 15 1 - 33 U/L 11/12/2024 5:51 PM EDT [facility] AST (SGOT) 27 1 - 32 U/L 11/12/2024 5:51 PM EDT [facility] Alkaline Phosphatase 113 39 - 117 U/L 11/12/2024 5:51 PM EDT [facility] Total Bilirubin 0.2 0.0 - 1.2 mg/dL 11/12/2024 5:51 PM EDT [facility] Globulin 2.4 gm/dL 11/12/2024 5:51 PM EDT [facility] Comment:Calculated Result A/G Ratio 1.7 g/dL 11/12/2024 5:51 PM T [facility] BUN/Creatinine Ratio 23.3 7.0 - 25.0 11/12/2024 5:51 PM T [facility] Anion Gap 10.1 5.0 - 15.0 mmol/L 11/12/2024 5:51 PM T [facility] eGFR 58.1(L) >60.0 mL/min/1.7 3 11/12/2024 5:51 PM T [facility] Blood Venipuncture / Unknown 11/12/2024 5:17 PM EDT 11/12/2024 5:17 PM EDT [facility] - 11/12/2024 5:51 PM [...] MD LAB BLOOD ORDERABLES Fin al Result [facility]
[address] [place] [address], * ECG 12 Lead Dyspnea (11/12/2024 4:45 [...] failure with hypoxia- Primary Referred by health landcare facilitator Dyspnea on exertion Other dyspnea and respiratory [...] BPA Driven Protocol Open Order & Select [facility] Electrolyte Replacement Protocol Algorithm to View [...] (Canceled Entry - Provider: Luz Maria Neely, CORRESPONDENCE CLERK) bumetanide (BUMEX) injection 2 mg (COMPLETED) [...] [place], BERNICE) 0808 (Given - Provider: Jill Altamriano, RN)1112 (Not Given - Provider: Jill Altamirano, [...] Education 2252 (Given - Provider: Narciso Melton, CORRESPONDENCE CLERK) ipratropium-albuterol (DUO-NEB) nebulizer solution 3 mL 3 mL, Nebulization, 4 Times Daily - RT, First dose on Sat11/13/24 at 0830, Include Respiratory Treatment Education 0940 (Given - Provider: Laine Hernandez CORRESPONDENCE CLERK)1334 (Given - Provider: Laine Hernandez CORRESPONDENCE CLERK)1651 (Given - Provider: Laine Hernandez CORRESPONDENCE CLERK)2019 (Given - Provider: Eusebio Jade, NIGHT SUPERVISOR) 0729 (Given - Provider: Luz Maria Neely, CORRESPONDENCE CLERK)0733 (Canceled Entry - Provider: Luz Maria Neely RRT)1335 (Given - Provider: Luz Maria Neely, CORRESPONDENCE CLERK)1608 (Not Given - Provider: Luz Maria [...] dose 1133 (Given - Provider: Shady Palmer, [facility]) venlafaxine XR (EFFEXOR-XR) 24 hr capsule [...] BPA Driven Protocol Open Order & [employer] [facility] Electrolyte Replacement Protocol Algorithm to View [...] BPA Driven Protocol Open Order & [employer] [facility] Electrolyte Replacement Protocol Algorithm to View [...] diarrhea documented in this encounter Care Teams Youth Specialist Relationship Specialty Start Date End Date Sandra Orozco APRN [address] [place] [address] [place] [address] PCP - General Internal Medicine 05/11/24 documented as of this encounter
--- OUTSIDE RECORDS SUMMARY | 2024-11-26 11:00 | XMS_ITS | Encounter Summary ---
Author Organization [facility] ystem Address [address] [place] [address] Care Team Providers Care Sod Farmer Name Role Phone Sandra Orozco APRN Primary Care Provider Reason for Visit * Reason Comments Shortness of Breath Encounter Details Date Type Department Care Team (Latest Contact Info) Description 11/26/2024 11:00 AM EDT Office Visit [facility] CARDIOLOGY [address] [facility] [address] [address] Dina Solano APRN 3000 [facility] [address] [place] [address] Paroxysmal atrial fibrillation (Primary Dx); History of [...] 0.6 oz pur e alcohol) former [facility] Utilities Answer Date Recorded In the past 12 months has [employer] electric, gas, oil, or water company threatened [...] and heating? Not very hard 11/13/2024 [facility] [place] of Occupat ional Health - Occupational Stress [...] GED or equivalent No 11/13/2024 Preferred Language Trinidadian 11/13/2024 PHQ-2 Answer Date Recorded Patient Health [...] 11:00 AM EDTAssociated Problem(s): Paroxysmal atrial fibrillation [id number] Continue Xarelto 15 mg p.o. daily Continue [...] Sandra Orozco APRN Date: 11/26/2024 Department: Minh [facility] CARDIOLOGY [address] [facility] [address] [facility] [id number] Chief Complaint: Chief Complaint Patient presents with Shortness of Breath Problem list: Paroxysmal atrial fibrillation/History of ischemic CVA/TIAs status post loop explant [id number] 5 (Female, Age, CVA, PAD) PAF noted [...] to admission. 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 She [...] Plan Assessment & Plan Paroxysmal atrial fibrillation [id number] Continue Xarelto 15 mg p.o. daily Continue [...] 3 months (around 02/25/2025). Patient or patient agency service representative verbalized consent for the use of Ambient Listening during the visit with Dina Solano APRN for chart documentation. 11/26/2024 10:42 EDT Dina Solano APRN [facility] Cardiology documented in this encounter Plan of Treatment Upcoming Encounters Date Type Department Care Team (Late st Contact Info) Description 02/16/2025 11:00 AM EST Office Visit [facility] CARDIOLOGY [address] [facility] [address] [place] [address] Dina Solano APRN 3000 [facility] [address] [place] [address] Scheduled Orders Name Type Priority Associated Diagnoses [...] APRN LAB BLOOD ORDERABLES Final Re sult [facility]
[address] [place] [address], documented in this encounter Visit Diagnoses Diagnosis Paroxysmal atrial fibrillation- Primary Atrial fibrillation History of CVA (cerebrovascular accident) Transient ischemic attack (TIA), and cerebral infarction without residual deficits Chronic respiratory failure with hypoxia Hyperlipidemia LDL goal <55 Prediabetes Other abnormal glucose Anemia, unspecified type Chronic venous insufficiency of lower extremity Chronic obstructive pulmonary disease, unspecified COPD type documented in this encounter Care Teams Sod Farmer Relationship Specialty Start Date End Date Sandra Orozco APRN [address] [address] PCP - General Internal Medicine 05/11/24 documented as of this encounter
[2025-01-06 14:13] LABS: Coronavirus 19, PCR Not Detected (NotDetected); Influenza A, PCR Not Detected (NotDetected); Influenza B, PCR Not Detected (NotDetected)
--- OUTSIDE RECORDS SUMMARY | 2025-01-07 14:18 | XMS_ITS | Encounter Summary ---
Author Organization [facility] ystem Address [address] [place] [address] Care Team Providers Care Tamping Machine Operator Road Forms Name Role Phone Sandra Orozco APRN Primary Care Provider Encounter Details Date Type Department Care Team (Late st Contact Info) Description 01/06/[address] [facility] C[facility] [address] [facility] [address], [place] [address] Dina Solano APRN [address] [facility] [address] [place] [address] Social History Tobacco Use Types Packs/Day Years Used Date Smoking Tobacco: Former Cigarettes 2 45 Q uit: 05/10/2023 Smokeless Tobacco: Never Comments:Liked to smoke Alcohol Use Standard Drinks/Week Comments Not Currently 0 (1 standard drink = 0.6 oz pur e alcohol) former [facility] Utilities Answer Date Recorded In the past 12 months has [employer], gas, oil, or water company threatened to [...] Not very hard 11/13/2024 [facility] [place] of Occupat ional Health - Occupational Stress [...] GED or equivalent No 11/13/2024 Preferred Language Northern Irish 11/13/2024 PHQ-2 Answer Date Recorded Patient Health Questionnaire-2 Score 0 11/13/2024 Comments No Sex and Gender Information Value Date Recorded Sex Assigned at Female 07/09/2024 8:35 PM EDT Legal Sex Female 8:53 AM EST Gender Identity Not on file Sexual Orientation Straight 07/09/2024 8: 35 PM EDT documented as of this encounter Miscellaneous Notes * Telephone Encounter - Tamar Moon APRN - 01/07/2025 10:32 AM EDT Uploaded to my chart * Telephone Encounter - Evi Juarez RegSched Rep - 01/06/2025 2:59 PM EDT REQUEST FOR CARDIAC CLEARANCE Caller name: Winnie/Brea Davidson [facility] needs a clearance for a dental cleaning Unable to fax. Email was given: [email or web address] Since the [facility] do not have access to a Fax machine, Winnie was told because of HIPAA concern it is possible our office can not send the Clearance by Email. We can mail to Patient or Patientmay pick it up; whichever is more convenient for the Patient. documented in this encounter Plan of Treatment Upcoming Encounters Date Type Department Care Team (Late st Contact Info) Description 02/16/2025 11:00 AM EST Office Visit [facility] C[facility] [address] [facility] [address] [place] [phone] Dina Solano APRN [address] [facility] [address] [place] [address] documented as of this encounter Visit Diagnoses Not on filedocumented in this encounter Care Teams Tamping Machine Operator Road Forms Relationship Specialty Start Date End Date Sandra Orozco APRN [address] [facility] [address] [place] [address] PCP - General Internal Medicine 05/11/24 documented as of this encounter
--- OUTSIDE RECORDS SUMMARY | 2025-01-07 14:19 | XMS_ITS | Encounter Summary ---
[facility] Address [address] [place] [address] Care Team Providers Care Gluer Machine Setup Operator Name Role Phone Sandra Orozco APRN Primary Care Provider [phone] Encounter Details Date Type Department Care Team [...] Recorded In the past 12 months has [employer], gas, oil, or water company threatened [...] heating? Not very hard 11/13/2024 [facility] of Occupat ional Health - Occupational Stress [...] GED or equivalent No 11/13/2024 Preferred Language Yemeni 11/13/2024 PHQ-2 Answer Date Recorded Patient Health [...] Visit [facility] [address] [facility] [address], [place] [address] Dina Solano APRN [address] [facility] [address], [place] [address] documented as of this encounter Visit Diagnoses Not on filedocumented in this encounter Care Teams Gluer Machine Setup Operator Relationship Specialty Start Date End Date Sandra Orozco APRN [address] [place] [address] [address] PCP - General Internal Medicine 05/11/24 documented as of this encounter
--- OUTSIDE RECORDS SUMMARY | 2025-01-07 14:19 | XMS_ITS | Encounter Summary ---
Author Organization [facility] ystem Address [address] [place] [address] Care Team Providers Care Database Specialist Name Role Phone Sandra Orozco APRN Primary Care Provider Encounter Details Date Type Department Care Team (Late st Contact Info) Description 11/12/2024 Patient rounding [place] [facility] [address] [facility] [address] [address] Dina Solano APRN [address] [facility] [address] [place] [address] Social History Tobacco Use Types Packs/Day Years Used Date Smoking Tobacco: Former Cigarettes Smokeless Tobacco: Never Comments:Smoked since 1973 Alcohol Use Standard Drinks/Week Comments Not Currently 0 (1 standard drink = 0.6 oz pur e alcohol) former [facility] Utilities Answer Date Recorded In the past 12 months has [employer] electric, gas, oil, or water company threatened [...] care, and heating? Not very hard 11/13/2024 [facility] [place] of Occupat ional Health - Occupational Stress [...] equivalent No 11/13/2024 Preferred Language Citizen Of [place] 11/13/2024 PHQ-2 Answer Date Recorded Patient Health [...] is Joaquina Sears, and I am the Hairspring Studder for [facility] [place]. I would like to thank you for [...] with your visit with us as a [facility] facility? Over the next few days, you will be receiving a Patient Experience Survey. Please consider taking the survey, as it helps [facility] in improving their patient care. Thank you for taking the time to answer our questions today. I hope you have a good day. documented in this encounter Plan of Treatment Upcoming Encounters Date Type Department Care Team (Late st Contact Info) Description 02/16/2025 11:00 AM EST Office Visit [facility] [address] [facility] [address] [place] [phone] Dina Solano APRN [address] [facility] [address] [place] [address] documented as of this encounter Visit Diagnoses Not on filedocumented in this encounter Care Teams Database Specialist Relationship Specialty Start Date End Date Sandra Orozco APRN [facility] [address] [place] [address] PCP - General Internal Medicine 05/11/24 documented as of this encounter
--- OUTSIDE RECORDS SUMMARY | 2025-01-07 14:19 | XMS_ITS | Encounter Summary ---
Author Organization [facility] ystem Address [address] [place] [address] Care Team Providers Care Inspector Plating Name Role Phone Sandra Orozco APRN Primary Care Provider [phone] Encounter Details Date Type Department Care Team (Late st Contact Info) Description 11/30/2024 Readmission Management [facility] [address] [place] [address] Christiano Gresham, RN Social History Tobacco Use Types Packs/Day Years Used Date Smoking Tobacco: Former Cigarettes 2 45 Q uit: 05/10/2023 Smokeless Tobacco: Never Comments:Liked to smoke Alcohol Use Standard Drinks/Week Comments Not Currently 0 (1 standard drink = 0.6 oz pur e alcohol) former [facility] Utilities Answer Date Recorded In the past 12 months has [employer], gas, oil, or water [employer] threatened to shut off services in your [...] care, and heating? Not very hard 11/13/2024 [facility] Stress Questionnaire Answer [...] GED or equivalent No 11/13/2024 Preferred Language Iranian 11/13/2024 PHQ-2 Answer Date Recorded Patient Health [...] Row Responses [facility] Visit [facility] [address] [facility] [address] [place] [address] Dina Solano APRN [address] [facility] [address] [place] [address] documented as of this encounter Visit Diagnoses Not on filedocumented in this encounter Care Teams Inspector Plating Relationship Specialty Start Date End Date Sandra Orozco APRN [address] [address] PCP - General Internal Medicine 05/11/24 documented as of this encounter
--- OUTSIDE RECORDS SUMMARY | 2025-01-07 14:19 | XMS_ITS | Encounter Summary ---
Author Organization [facility] ystem Address [address] [place] [address] Care Team Providers Care Plate Inspector Name Role Phone Sandra Orozco APRN Primary Care Provider [phone] Encounter Details Date Type Department Care Team (Late st Contact Info) Description 11/16/2024 Readmission Management [facility] [address] [place] [address] Omaira Knapp RN Social History Tobacco Use Types Packs/Day Years Used Date Smoking Tobacco: Former Cigarettes Smokeless Tobacco: Never Comments:Smoked since 1973 Alcohol Use Standard Drinks/Week Comments Not Currently 0 (1 standard drink = 0.6 oz pur e alcohol) former [facility] Utilities Answer Date Recorded In the past 12 months has [employer], gas, oil, or water [employer] threatened to shut off services in your [...] care, and heating? Not very hard 11/13/2024 [facility] of Occupat ional Health [...] GED or equivalent No 11/13/2024 Preferred Language Canadian 11/13/2024 PHQ-2 Answer Date Recorded Patient Health [...] AM EDT Prep Survey Flowsheet Row Responses [facility] patient discharged from? [place] Is LACE score less than 10 ? [...] Description 02/16/2025 11:00 AM EST Office Visit [facility] C[facility] [address] [facility] [address] [place] [address] Dina Solano APRN [address] [facility] [address] [place] [address] documented as of this encounter Visit Diagnoses Not on filedocumented in this encounter Care Teams Plate Inspector Relationship Specialty Start Date End Date Sandra Orozco APRN [address] [place] [address] [address] [place] [address] PCP - General Internal Medicine 05/11/24 documented as of this encounter
--- OUTSIDE RECORDS SUMMARY | 2025-01-07 14:19 | XMS_ITS | Clinical Summary ---
[facility] Address [address] [place] [address] Care Team Providers Care Admitting Coordinator Name Role Phone Sandra Orozco APRN Primary Care Provider [phone] Allergies Active Allergy Reactions Criticality Noted Date [...] all over Nortriptyline Swelling Low 04/15/2024 Poison [place] Extract Hives,Itching,Swell ing,Rash Low 04/15/2024 Poison oak/poison [...] of breath and lower extremity edema. Her director of occupational health was concerned about heart failure and advised [...] Assessment & Plan (11/26/2024 2:20 PM EDT): [id number] Continue Xarelto 15 mg p.o. daily Continue [...] Assessment & Plan (07/16/2024 12:10 PM EDT): [id number] Continue Xarelto 15 mg p.o. daily, [...] Encounters Date Type Department Care Team Description 01/06/2025 Telephone [facility] [address] [facility] [address], [place] [address] Dina Solano APRN 11/30/2024 Readmission Management [facility] [address] [place] [address] Christiano Gresham RN 11/26/2024 11:00 AM EDT Office Visit [facility] [address] [place] [address] [address], [place] [address] Dina Solano APRN Paroxysmal atrial fibrillation (Primary Dx); History of CVA (cerebrovascular accident); Chronic respiratory failure with hypoxia; Hyperlipidemia LDL goal <55; Prediabetes; Anemia, unspecified type; Chronic venous insufficiency of lower extremity; Chronic obstructive pulmonary disease, unspecified COPD type 11/26/2024 Travel 11/23/2024 Readmission Management [facility] [address] [place] [address] Kaykay Farrar RN 11/16/2024 Readmission Management [facility] [address] [place] [address] Omaira Knapp RN 11/12/2024 9:36 PM EDT - 11/14/2024 4:38 PM EDT Hospital Encounter [address] [place] [address] Logan Araujo MD Butler, Jennifer, MD Barbato, Hayley R, DO West, Christopher R, MD Referred by health healthcare account manager (Primary Dx); Dyspnea on exertion; Chronic respiratory failure with hypoxia, on home O2 therapy; SMOOTH (obstructive sleep apnea); Elevated troponin; Moderate aortic valve regurgitation Discharge Disposition: Home or Self Care 11/12/2024 12:30 PM EDT Office Visit [facility] [address] [facility] [address], [place] [address] Dina Solano APRN Shortness of breath (Primary Dx); Generalized edema; Chronic respiratory failure with hypoxia; Paroxysmal atrial fibrillation; History of CVA (cerebrovascular accident); Moderate aortic valve regurgitation; Peripheral arterial disease 11/12/2024 Patient rounding ([facility]) [facility] [address] [facility] [address] [place] [address] Dina Solano APRN 11/12/2024 Travel 11/10/2024 Telephone [facility] [address] [facility] [address] [place] [address] Christy Kirk MD from Last 3 Months Family History Medical History Relation Name Comments Hyperlipidemia Father Stanislaw Hypertension Father Stanislaw Anemia Mother Kerajennifer Shukla Arrhythmia Mother Kerajennifer Shukla Anemia Asthma Mother Kerajennifer Shukla Coronary artery disease Mother Kerajennifer Shukla Heart attack Mother Kera Shukla 2 [...] 0.6 oz pur e alcohol) former [facility] Utilities Answer Date Recorded In the past 12 months has e electric, gas, oil, or water mphoria threatened to shut off services in your [...] care, and heating? Not very hard 11/13/2024 [facility] [place] of Occupat ional Health - Occupational Stress [...] GED or equivalent No 11/13/2024 Preferred Language Luxembourger 11/13/2024 PHQ-2 Answer Date Recorded Patient Health [...] Description 02/16/2025 11:00 AM EST Office Visit [facility] [address] [facility] [address] [address] Dina Solano APRN [address] [facility] [address] [place] [address] Health Maintenance Due Date Last Done Comments [...] EDT RESPIRATORY PANEL PCR W/ COVID-19 (SARS-COV-2), FRONT DESK ASSISTANT SWAB IN UTM/VTP, 2 HR TAT Routine 11/13/2024 3:26 AM EDT BLOOD GAS, VENOUS W/CO-OXIMETRY STAT 11/12/2024 11:[address] ANGIOGRAM CHEST PULMONARY EMBOLISM STAT 11/12/2024 7:46 PM EDT COVID-19/FLUA&B/RSV, FRONT DESK ASSISTANT SWAB IN TRANSPORT MEDIA 1 HR TAT [...] Re sult [facility]
[address] [place] [address], * ECHO COMPLETE W/ DOPPLER AND COLOR [...] - 10.80 10*3/mm3 11/13/2024 12:36 PM EDT [facility] RBC 3.89 3.77 - 5.28 10*6/mm3 11/13/2024 12:36 PM EDT [facility] Hemoglobin 8.1(L) 12.0 - 15.9 g/dL 11/13/2024 12:36 PM EDT [facility] Hematocrit 29.1(L) 34.0 - 46.6 % 11/13/2024 12:36 PM EDT [facility] MCV 74.8(L) 79.0 - 97.0 fL 11/13/2024 12:36 PM EDT [facility] MCH 20.8(L) 26.6 - 33.0 pg 11/13/2024 12:36 PM EDT [facility] MCHC 27.8(L) 31.5 - 35.7 g/dL 11/13/2024 12:36 PM EDT [facility] RDW 19.0(H) 12.3 - 15.4 % 11/13/2024 12:36 PM EDT [facility] RDW-SD 51.3 37.0 - 54.0 fl 11/13/2024 12:36 PM EDT [facility] MPV 9.8 6.0 - 12.0 fL 11/13/2024 12:36 PM EDT [facility] Platelets 227 140 - 450 10*3/mm3 11/13/2024 12:36 PM [facility] Neutrophil % 63.6 42.7 - 76.0 % 11/13/2024 12:36 PM [facility] Lymphocyte % 23.3 19.6 - 45.3 % 11/13/2024 12:36 PM [facility] Monocyte % 8.9 5.0 - 12.0 % 11/13/2024 12:36 PM [facility] Eosinophil % 2.8 0.3 - 6.2 % 11/13/2024 12:36 PM [facility] Basophil % 0.7 0.0 - 1.5 % 11/13/2024 12:36 PM [facility] Immature Grans % 0.7(H) 0.0 - 0.5 % 11/13/2024 12:36 PM [facility] Neutrophils, Absolute 3.44 1.70 - 7.00 10*3/mm3 11/13/2024 12:36 PM [facility] Lymphocytes, Absolute 1.26 0.70 - 3.10 10*3/mm3 11/13/2024 12:36 PM [facility] Monocytes, Absolute 0.48 0.10 - 0.90 10*3/mm3 11/13/2024 12:36 PM [facility] Eosinophils, Absolute 0.15 0.00 - 0.40 10*3/mm3 11/13/2024 12:36 PM [facility] Basophils, Absolute 0.04 0.00 - 0.20 10*3/mm3 11/13/2024 12:36 PM [facility] Immature Grans, Absolute 0.04 0.00 - 0.05 10*3/mm3 11/13/2024 12:36 PM [facility] nRBC 0.0 0.0 - 0.2 /100 WBC 11/13/2024 12:36 PM EDT [facility] Blood Venipuncture / Unknown 11/13/2024 12:07 PM EDT 11/13/2024 12:26 PM EDT Aaliyah Jha APRN LAB BLOOD ORDERABLES Final Re sult Performing Organization Address City/[facility]/ZIP Co de Phone Number [facility]
[address] [place] [address], [place] [phone] * (ABNORMAL) Reticulocytes (11/13/2024 12:07 PM EDT) Reticulocyte % 2.78(H) 0.70 - 1.90 % 11/13/2024 12:32 PM EDT [facility] Reticulocyte Absolute 0.1081 0.0200 - 0.1300 10*6/mm3 11/13/2024 12:32 PM EDT [facility] Blood Venipuncture / Unknown 11/13/2024 12:07 PM EDT 11/13/2024 12:26 PM EDT Aaliyah Jha APRN LAB BLOOD ORDERABLES Final Re sult Performing Organization Address [facility] Co de Phone Number [facility]
[address] [place] [address], * TSH (11/13/2024 12:07 PM EDT) TSH 2.770 0.270 - 4.200 uIU/mL 11/13/2024 12:56 PM EDT [facility] Blood Venipuncture / Unknown 11/13/2024 12:07 PM EDT 11/13/2024 12:26 PM EDT Aaliyah Jha APRN LAB BLOOD ORDERABLES Final Re sult Performing Organization Address City/[facility]/ZIP Co de Phone Number [facility]
[address] [place] [address], * Magnesium (11/13/2024 12:07 PM EDT) Only the most recent of2 resultswithin the time period is included. Magnesium 1.9 1.6 - 2.4 mg/dL 11/13/2024 12:56 PM EDT [facility] Blood Venipuncture / Unknown 11/13/2024 12:07 PM EDT 11/13/2024 12:26 PM EDT Aaliyah Jha APRN LAB BLOOD ORDERABLES Final Re sult [facility]
[address] [place] [address], * (ABNORMAL) Hemoglobin A1c (11/13/2024 12:07 PM EDT) [facility] Hemoglobin A1C 5.84(H) 4.80 - 5.60 % 11/13/2024 1:23 PM EDT [facility] Blood Venipuncture / Unknown 11/13/2024 12:07 PM EDT 11/13/2024 12:26 PM EDT Narrative [facility] - 11/13/2024 1:23 PM EDT Hemoglobin A1C Ranges: Increased Risk for Diabetes 5.7% to 6.4% Diabetes >= 6.5% Diabetic Goal < 7.0% Aaliyah Jha APRN LAB BLOOD ORDERABLES Final Re sult [facility]
[address] [place] [address], * Folate RBC (11/13/2024 12:07 PM EDT) Pathologist [facility] Folate, Hemolysate 538.0 Not Estab. ng/mL 11/16/2024 9:09 AM EDT [facility] Hematocrit 40.7 34.0 - 46.6 % 11/16/2024 9:09 AM EDT [facility] RBC Folate 1322 >498 ng/mL 11/16/2024 9:09 AM EDT [facility] Blood Venipuncture / Unknown 11/13/2024 12:07 PM EDT 11/13/2024 12:26 PM EDT Narrative [facility] - 11/16/2024 9:09 AM EDT Performed at: 01 - [address] [id number] Transplant Worker: Gomez Crooks PhD, Phone: [phone] us Aaliyah Jha APRN LAB BLOOD ORDERABLES Edited R esult - Final [facility] [address] [place] [id number], * (ABNORMAL) Basic Metabolic Panel (11/13/2024 12:07 PM EDT) Glucose 100(H) 65 - 99 mg/dL 11/13/2024 12:56 PM EDT [facility] BUN 19.7 8.0 - 23.0 mg/dL 11/13/2024 12:56 PM EDT [facility] Creatinine 0.93 0.57 - 1.00 mg/dL 11/13/2024 12:56 PM EDT [facility] Sodium 143 136 - 145 mmol/L 11/13/2024 12:56 PM EDT [facility] Potassium 3.8 3.5 - 5.2 mmol/L 11/13/2024 12:56 PM EDT [facility] Chloride 102 98 - 107 mmol/L 11/13/2024 12:56 PM EDT [facility] CO2 31.1(H) 22.0 - 29.0 mmol/L 11/13/2024 12:56 PM EDT [facility] Calcium 8.6 8.6 - 10.5 mg/dL 11/13/2024 12:56 PM EDT [facility] BUN/Creatinine Ratio 21.2 7.0 - 25.0 11/13/2024 12:56 PM EDT [facility] Anion Gap 9.9 5.0 - 15.0 mmol/L 11/13/2024 12:56 PM EDT [facility] eGFR 67.9 >60.0 mL/min/1.7 3 11/13/2024 12:56 PM EDT [facility] Blood Venipuncture / Unknown 11/13/2024 12:07 PM EDT 11/13/2024 12:26 PM EDT Narrative [facility] - 11/13/2024 12:56 PM [...] race as a factor us Aaliyah Jha APRN LAB BLOOD ORDERABLES Final Re sult [facility]
[address] [place] [address], * Duplex Venous Lower Extremity - Bilateral [...] study is limited due to patient positioning. Logan Araujo MD CV VASCULAR ORDERABLES F inal Result * ECG 12 Lead Dyspnea (11/13/2024 5:53 AM EDT) Only the most recent of2 resultswithin the time period is included. Pathologist [facility] QT Interval 410 ms ECG QTC Interval [...] change was found Confirmed by ABDULLAHI HENDRICKSON ([id number]) on 11/13/2024 7:39:07 PM Referred By: Confirmed [...] change was found Confirmed by ABDULLAHI HENDRICKSON ([id number]) on 11/13/2024 7:39:07 PM Referred By: Confirmed By: ABDULLAHI HENDRICKSON us Aaliyah Jha APRN ECG ORDERABLES Final Result ECG * Respiratory Panel PCR w/COVID-19(SARS-CoV-2) SIDRA/CHECO/SAUD/PAD/COR/ERIC In-House, FRONT DESK ASSISTANT Swab in UTM/VTM, 2 HR TAT - Swab, Nasopharynx (11/13/2024 3:26 AM EDT) ADENOVIRUS, PCR Not Detected Not Detected [facility] 11/13/2024 4:48 AM EDT [facility] Coronavirus 229E Not Detected Not Detected [facility] 11/13/2024 4:48 AM EDT [facility] Coronavirus HKU1 Not Detected Not Detected [facility] 11/13/2024 4:48 AM EDT [facility] Coronavirus NL63 Not Detected Not Detected [facility] 11/13/2024 4:48 AM EDT [facility] Coronavirus OC43 Not Detected Not Detected [facility] 11/13/2024 4:48 AM EDT [facility] COVID19 Not Detected Not Detected - Ref. Range [facility] 11/13/2024 4:48 AM EDT [facility] Human Metapneumovirus Not Detected Not Detected [facility] 11/13/2024 4:48 AM EDT [facility] Human Rhinovirus/Enterov irus Not Detected Not Detected [facility] 11/13/2024 4:48 AM EDT [facility] Influenza A PCR Not Detected Not Detected [facility] 11/13/2024 4:48 AM EDT [facility] Influenza B PCR Not Detected Not Detected [facility] 11/13/2024 4:48 AM EDT [facility] Parainfluenza Virus 1 Not Detected Not Detected [facility] 11/13/2024 4:48 AM EDT [facility] Parainfluenza Virus 2 Not Detected Not Detected [facility] 11/13/2024 4:48 AM EDT [facility] Parainfluenza Virus 3 Not Detected Not Detected [facility] 11/13/2024 4:48 AM EDT [facility] Parainfluenza Virus 4 Not Detected Not Detected [facility] 11/13/2024 4:48 AM EDT [facility] RSV, PCR Not Detected Not Detected [facility] 11/13/2024 4:48 AM EDT [facility] Bordetella pertussis pcr Not Detected Not Detected [facility] 11/13/2024 4:48 AM EDT [facility] Bordetella parapertussis PCR Not Detected Not Detected [facility] 11/13/2024 4:48 AM EDT [facility] Chlamydophila pneumoniae PCR Not Detected Not Detected [facility] 11/13/2024 4:48 AM EDT [facility] Mycoplasma pneumo by PCR Not Detected Not Detected [facility] 11/13/2024 4:48 AM EDT [facility] Swab Nasopharyngeal structure / Unknown Collection / Unknown 11/13/2024 3:26 AM EDT 11/13/2024 4:00 AM EDT [facility] - 11/13/2024 4:48 AM EDT [...] MICROBIOLOGY - GENERAL ORDERA BLES Final Result [facility]
[address] [place] [address], * (ABNORMAL) Blood Gas, Venous With Co-Ox (11/12/2024 11:16 PM EDT) Site Nurse/Dr Draw 11/12/2024 11:17 PM EDT [facility] THERAP[facility] pH, Venous 7.337 7.310 - 7.410 pH Units 11/12/2024 11:17 PM EDT [facility] THER[facility] pCO2, Venous 59.6(H) 41.0 - 51.0 mm Hg 11/12/2024 11:17 PM EDT [facility]ER[facility] Comment:83 Value above refer ence range pO2, Venous 30.4 27.0 - 53.0 mm Hg 11/12/2024 11:17 PM EDT [facility]ER[facility] HCO3, Venous 31.9(H) 22.0 - 28.0 mmol/L 11/12/2024 11:17 PM EDT [facility]ER[facility] Base Excess, Venous 5.0(H) -2.0 - 2.0 mmol/L 11/12/2024 11:17 PM EDT [facility]ER[facility] Hemoglobin, Blood Gas 9.3(L) 14 - 18 g/dL 11/12/2024 11:17 PM EDT [facility] THERAP[facility] Oxyhemoglobin Venous 48.3 % 06/2024 11:17 PM EDT [facility] THERAPY Methemoglobin Venous 0.4 % 06/2024 11:17 PM EDT [facility]ER[facility] Carboxyhemoglobin Venous 1.7 % 11/12/2024 11:17 PM EDT [facility] THERAPY CO2 Content 33.7(H) 22 - 33 mmol/L 11/12/2024 11:17 PM EDT [facility] THERAPY Temperature 37.0 11/12/2024 11:17 PM EDT [facility] THERAPY Barometric Pressure for Blood Gas 11/12/2024 11:17 PM EDT [facility]ER[facility] Comment:N/A Modality Nasal Cannula 11/12/2024 11:17 PM EDT [facility] THERAPY FIO2 28 % 11/12/2024 11:17 PM EDT [facility] THERAPY Rate 0 Breaths/ minute 11/12/2024 11:17 PM EDT [facility] THERAPY PIP 0 cmH2O 11/12/2024 11:17 PM EDT [facility] THERAPY Comment:Meter: [id number] Clinical Writer: [id number] IPAP 0 11/12/2024 11:17 PM EDT [facility] THERAPY EPAP 0 11/12/2024 11:17 PM EDT [facility] THERAPY Venous Blood 11/12/2024 11:1 6 PM EDT 11/12/2024 11:16 PM EDT us Logan Araujo MD LAB BLOOD ORDERABLES Fin al Result [facility] THERAPY
[address] [place] [address], * CT Angiogram Chest Pulmonary Embolism (11/12/2024 7:46 PM EDT) Anatomical Region Laterality Modality Chest N/A Computed Tomogra phy 11/12/2024 8:22 PM EDT Impressions 11/12/2024 8:31 PM EDT No evidence of pulmonary embolus. No acute abnormality. Electronically Signed: Jed Machuca MD 11/12/2024 8:31 PM EDT Workstation ID: [id number] Hermann 11/12/2024 8:[address] ANGIOGRAM [...] MD 11/12/2024 8:31 PM EDT Workstation ID: [id number] Logan Araujo MD IMG CT ORDERABLES Final Result * COVID-19, FLU A/B, RSV PCR 1 HR TAT - Swab, Nasopharynx (11/12/2024 7:21 PM EDT) Pathologist [facility] COVID19 Not Detected Not Detected - Ref. Range [employer]PHE[employer] 11/12/2024 8:24 PM EDT [facility] Influenza A PCR Not Detected Not Detected [employer] 11/12/2024 8:24 PM EDT [facility] Influenza B PCR Not Detected Not Detected [employer] 11/12/2024 8:24 PM EDT [facility] RSV, PCR Not Detected Not Detected [employer] 11/12/2024 8:24 PM EDT [facility] Swab Nasopharyngeal structure / Unknown Collection / Unknown 11/12/2024 7:21 PM EDT 11/12/2024 7:46 PM EDT Logan Araujo MD MICROBIOLOGY - GENERAL O RDERABLES Final Result [facility]
[address] [place] [address], * (ABNORMAL) Urinalysis, Microscopic Only - Urine, Clean Catch (11/12/2024 7:20 PM EDT) Pathologist [facility] RBC, UA 0-2 None Seen, 0-2 /HPF 11/12/2024 8:00 PM EDT [facility] WBC, UA 11-20(A) None Seen, 0-2 /HPF 11/12/2024 8:00 PM EDT [facility] Bacteria, UA None Seen None Seen /HPF 11/12/2024 8:00 PM EDT [facility] Squamous Epithelial Cells, UA 3-6(A) None Seen, 0-2 /HPF 11/12/2024 8:00 PM EDT [facility] Hyaline Casts, UA 0-2 None Seen /LPF 11/12/2024 8:00 PM EDT [facility] Methodology Automated Microscopy 11/12/2024 8:00 PM EDT [facility] Urine Urine specimen obtained by clean catch procedure / Unknown Collection / Unknown 11/12/2024 7:20 PM EDT 11/12/2024 7:46 PM EDT Logan Araujo MD URINE ORDERABLES Final R esult [facility]
[address] [place] [address], * (ABNORMAL) Urinalysis With Microscopic If Indicated (No Culture) - Urine, Clean Catch (11/12/2024 7:20 PM EDT) Color, UA Yellow Yellow, Straw 11/12/2024 8:00 PM EDT [facility] Appearance, UA Clear Clear 11/12/2024 8:00 PM EDT [facility] pH, UA 5.5 5.0 - 8.0 11/12/2024 8:00 PM EDT [facility] Specific [place], UA >1.030(H) 1.005 - 1.030 11/12/2024 8:00 PM EDT [facility] Glucose, UA Negative Negative 11/12/2024 8:00 PM EDT [facility] Ketones, UA Negative Negative 11/12/2024 8:00 PM EDT [facility] Bilirubin, UA Negative Negative 11/12/2024 8:00 PM EDT [facility] Blood, UA Negative Negative 11/12/2024 8:00 PM EDT [facility] Protein, UA Trace(A) Negative 11/12/2024 8:00 PM EDT [facility] Leuk Esterase, UA Small (1+)(A) Negative 11/12/2024 8:00 PM EDT [facility] Nitrite, UA Negative Negative 11/12/2024 8:00 PM EDT [facility] Urobilinogen, UA 1.0 E.U./dL 0.2 - 1.0 E.U./dL 11/12/2024 8:00 PM EDT [facility] Urine Urine specimen obtained by clean catch procedure / Unknown Collection / Unknown 11/12/2024 7:20 PM EDT 11/12/2024 7:46 PM EDT Logan Araujo MD URINE ORDERABLES Final R esult Performing Organization Address City/[facility]/ZIP Co de Phone Number [facility]
[address] [place] [address], [place] [phone] * Sodium, Urine, Random - Urine, Clean Catch (11/12/2024 7:20 PM EDT) Sodium, Urine <20 mmol/L 11/13/2024 3:37 AM EDT [facility] Urine Urine specimen obtained by clean catch procedure / Unknown Collection / Unknown 11/12/2024 7:20 PM EDT 11/12/2024 7:46 PM EDT Narrative [facility] - 11/13/2024 3:37 AM EDT Reference intervals for random urine have not been established. Clinical usage is dependent upon physician's interpretation in combination with other laboratory tests. Aaliyah Jha APRN URINE ORDERABLES Final Result Performing Organization Address [facility]/ZIP Co de Phone Number [facility]
[address] [place] [address], [place] [phone] * Osmolality, Urine - Urine, Clean Catch (11/12/2024 7:20 PM EDT) Osmolality, Urine 837 300 - 1,100 mOsm/kg 11/13/2024 4:00 AM EDT [facility] Urine Urine specimen obtained by clean catch procedure / Unknown Collection / Unknown 11/12/2024 7:20 PM EDT 11/12/2024 7:46 PM EDT Aaliyah Jha APRN URINE ORDERABLES Final Result Performing Organization Address City/[facility]/ZIP Co de Phone Number [facility]
[address] [place] [address], [place] [phone] * Creatinine Urine Random (kidney function) GFR component - Urine, Clean Catch (11/12/2024 7:20 PM EDT) Creatinine, Urine 276.6 mg/dL 11/13/2024 9:46 AM EDT [facility] Urine Urine specimen obtained by clean catch procedure / Unknown Collection / Unknown 11/12/2024 7:20 PM EDT 11/13/2024 3:13 AM EDT Narrative [facility] - 11/13/2024 9:46 AM EDT Reference intervals for random urine have not been established. Clinical usage is dependent upon physician's interpretation in combination with other laboratory tests. us Aaliyah Jha APRN URINE ORDERABLES Final Result [facility]
[address] [place] [address], [place] [phone] * Urine Culture - Urine, Urine, Clean Catch (11/12/2024 7:20 PM EDT) Urine Culture No growth [id number] 11/14/2024 12:26 PM EDT [facility] Urine Urine specimen obtained by clean catch procedure / Unknown Collection / Unknown 11/12/2024 7:20 PM EDT 11/13/2024 12:57 AM EDT Logan Araujo MD MICROBIOLOGY - GENERAL O RDERABLES Final Result Performing Organization Address [facility]/ZIP Co de Phone Number [facility]
[address] [place] [address], [place] [phone] * (ABNORMAL) High Sensitivity Troponin T 1Hr (11/12/2024 7:16 PM EDT) HS Troponin T 16(H) <14 ng/L 11/12/2024 7:53 PM EDT [facility] Troponin T Numeric Delta -1 ng/L 11/12/2024 7:53 PM EDT [facility] Troponin T % Delta -6 Abnormal if >/= 20% 11/12/2024 7:53 PM EDT [facility] Blood Line / Unknown 11/12/2024 7: 16 PM EDT 11/12/2024 7:20 PM EDT Narrative [facility] - 11/12/2024 7:53 PM [...] MD LAB BLOOD ORDERABLES Fin al Result [facility]
[address] [place] [address], [place] [phone] * (ABNORMAL) Iron Profile w/o Ferritin (11/12/2024 7:16 PM EDT) Iron 21(L) 37 - 145 mcg/dL 11/13/2024 3:24 AM EDT [facility] Iron Saturation (TSAT) 4(L) 20 - 50 % 11/13/2024 3:24 AM EDT [facility] Transferrin 321 200 - 360 mg/dL 11/13/2024 3:24 AM EDT [facility] TIBC 478 298 - 536 mcg/dL 11/13/2024 3:24 AM EDT [facility] Blood Venipuncture / Unknown 11/12/2024 7:16 PM EDT 11/13/2024 2:57 AM EDT Aaliyahcolleen Jha APRN LAB BLOOD ORDERABLES Final Re sult Performing Organization Address City/[facility]/ZIP Co de Phone Number [facility]
[address] [place] [address], [place] [phone] * Ferritin (11/12/2024 7:16 PM EDT) Ferritin 13.80 13.00 - 150.00 ng/mL 11/13/2024 3:24 AM EDT [facility] Blood Venipuncture / Unknown 11/12/2024 7:16 PM EDT 11/13/2024 2:57 AM EDT Narrative [facility] - 11/13/2024 3:24 AM EDT Results may be falsely decreased if patient taking Biotin. Aaliyahcolleen Jha APRN LAB BLOOD ORDERABLES Final Re sult Performing Organization Address City/[facility]/ZIP Co de Phone Number [facility]
[address] [place] [address], [place] [phone] * XR Chest 1 View (11/12/2024 6:30 PM EDT) Anatomical Region Laterality Modality Body N/A Radiographic Tatyana ging 11/12/2024 7:00 PM EDT Impressions 11/12/2024 7:02 PM EDT Impression: 1. No acute cardiopulmonary disease. Electronically Signed: Arben Neely MD 11/12/2024 7:02 PM EDT Workstation ID: [id number] Narrative 11/12/2024 7:02 PM EDT XR CHEST [...] MD 11/12/2024 7:02 PM EDT Workstation ID: [id number] Logan Araujo MD IMG DIAGNOSTIC IMAGING O RDERABLES Final Result * Castellano Top (11/12/2024 5:17 PM EDT) Pathologist [facility] Extra Tube Hold for add-ons. 11/12/2024 5:32 PM EDT [facility] Comment:Auto resulted. Blood Venipuncture / Unknown 11/12/2024 5:17 PM EDT 11/12/2024 5:17 PM EDT Logan Araujo MD LAB BLOOD ORDER ONLY Fin al Result [facility]
[address] [place] [address], * TSH Rfx On Abnormal To Free T4 (11/12/2024 5:17 PM EDT) Pathologist [facility] TSH 2.480 0.270 - 4.200 uIU/mL 11/12/2024 5:51 PM EDT [facility] Blood Venipuncture / Unknown 11/12/2024 5:17 PM EDT 11/12/2024 5:17 PM EDT Logan Araujo MD LAB BLOOD ORDERABLES Fin al Result [facility]
[address] [place] [address], [place] [phone] * Gold Top - SST (11/12/2024 5:17 PM EDT) Extra Tube Hold for add-ons. 11/12/2024 5:32 PM EDT [facility] Comment:Auto resulted. Blood Venipuncture / Unknown 11/12/2024 5:17 PM EDT 11/12/2024 5:17 PM EDT Logan Araujo MD LAB BLOOD ORDER ONLY Fin al Result Performing Organization Address [facility]/ZIP Co de Phone Number [facility]
[address] [place] [address], [place] [phone] * Green Top (Gel) (11/12/2024 5:17 PM EDT) Extra Tube Hold for add-ons. 11/12/2024 5:31 PM EDT [facility] Comment:Auto resulted. Blood Venipuncture / Unknown 11/12/2024 5:17 PM EDT 11/12/2024 5:17 PM EDT Logan Araujo MD LAB BLOOD ORDER ONLY Fin al Result [facility]
[address] [place] [address], [place] [phone] * Scan Slide (11/12/2024 5:17 PM EDT) Anisocytosis Slight/1+ None Seen 11/12/2024 6:07 PM EDT [facility] Hypochromia Slight/1+ None Seen 11/12/2024 6:07 PM EDT [facility] Microcytes Mod/2+ None Seen 11/12/2024 6:07 PM EDT [facility] WBC Morphology Normal Normal 11/12/2024 6:07 PM EDT [facility] Platelet Morphology Normal Normal 11/12/2024 6:07 PM EDT [facility] Blood Venipuncture / Unknown 11/12/2024 5:17 PM EDT 11/12/2024 5:17 PM EDT Logan Araujo MD LAB BLOOD ORDERABLES Fin al Result Performing Organization Address City/[facility]/ZIP Co de Phone Number [facility]
[address] [place] [address], * Lavender Top (11/12/2024 5:17 PM EDT) Extra Tube hold for add-on 11/12/2024 5:31 PM EDT [facility] Comment:Auto resulted Blood Venipuncture / Unknown 11/12/2024 5:17 PM EDT 11/12/2024 5:17 PM EDT Logan Araujo MD LAB BLOOD ORDER ONLY Fin al Result [facility]
[address] [place] [address], [place] [phone] * Light Blue Top (11/12/2024 5:17 PM EDT) Extra Tube Hold for add-ons. 11/12/2024 5:31 PM EDT [facility] Comment:Auto resulted Blood Venipuncture / Unknown 11/12/2024 5:17 PM EDT 11/12/2024 5:17 PM EDT Logan Araujo MD LAB BLOOD ORDER ONLY Fin al Result Performing Organization Address City/[facility]/ZIP Co de Phone Number [facility]
[address] [place] [address], * (ABNORMAL) High Sensitivity Troponin T (11/12/2024 5:17 PM EDT) [facility] HS Troponin T 17(H) <14 ng/L 11/12/2024 5:51 PM EDT [facility] Blood Venipuncture / Unknown 11/12/2024 5:17 PM EDT 11/12/2024 5:17 PM EDT [facility] - 11/12/2024 5:51 PM EDT High [...] ORDERABLES Fin al Result Performing Organization Address City/[facility]/ZIP Co de Phone Number [facility]
[address] [place] [address], * (ABNORMAL) D-dimer, Quantitative (11/12/2024 5:17 PM EDT) [facility] D-Dimer, Quantitative 10.36(H) 0.00 - 0.66 MCGFEU/mL 11/12/2024 6:00 PM EDT [facility] Blood Venipuncture / Unknown 11/12/2024 5:17 PM EDT 11/12/2024 5:17 PM EDT Narrative [facility] - 11/12/2024 6:00 PM EDT According to the assay customer engineering specialist's published package insert, a normal (<0.50 MCGFEU/mL) D-dimer result in conjunction with a non-high clinical probability assessment, excludes deep vein thrombosis (DVT) and pulmonary embolism (PE) with high sensitivity. D-dimer values increase with age and this can make VTE exclusion of an older population difficult. To address this, the [employer], based on best available [...] ORDERABLES Fin al Result Performing Organization Address City/[facility]/ZIP Co de Phone Number [facility]
[address] [place] [address], * Phosphorus (11/12/2024 5:17 PM EDT) Phosphorus 4.1 2.5 - 4.5 mg/dL 11/12/2024 5:51 PM EDT [facility] Blood Venipuncture / Unknown 11/12/2024 5:17 PM EDT 11/12/2024 5:17 PM EDT us Logan Araujo MD LAB BLOOD ORDERABLES Fin al Result [facility]
[address] [place] [address], * BNP (11/12/2024 5:17 PM EDT) proBNP 247.0 0.0 - 900.0 pg/mL 11/12/2024 5:51 PM EDT [facility] Blood Venipuncture / Unknown 11/12/2024 5:17 PM EDT 11/12/2024 5:17 PM EDT Narrative [facility] - 11/12/2024 5:51 PM [...] MD LAB BLOOD ORDERABLES Fin al Result [facility]
[address] [place] [address], * Lipase (11/12/2024 5:17 PM EDT) Lipase 20 13 - 60 U/L 11/12/2024 5:51 PM EDT [facility] Blood Venipuncture / Unknown 11/12/2024 5:17 PM EDT 11/12/2024 5:17 PM EDT Logan Araujo MD LAB BLOOD ORDERABLES Fin al Result [facility]
[address] [place] [address], * Lactic Acid, Plasma (11/12/2024 5:17 PM EDT) Lactate 1.6 0.5 - 2.0 mmol/L 11/12/2024 5:49 PM EDT [facility] Comment:Falsely depressed re sults may occur on samples drawn from patients receiving N-Acetylcysteine (NAC) or Metamizole. Blood Venipuncture / Unknown 11/12/2024 5:17 PM EDT 11/12/2024 5:17 PM EDT Logan Araujo MD LAB BLOOD ORDERABLES Fin al Result Performing Organization Address City/[facility]/ZIP Co de Phone Number [facility]
[address] [place] [address], [place] [phone] * Folate (11/12/2024 5:17 PM EDT) Folate >20.00 4.78 - 24.20 ng/mL 11/13/2024 9:54 AM EDT [facility] Blood Venipuncture / Unknown 11/12/2024 5:17 PM EDT 11/13/2024 2:59 AM EDT Narrative [facility] - 11/13/2024 9:54 AM EDT Results may be falsely increased if patient taking Biotin. Aaliyah Jha APRN LAB BLOOD ORDERABLES Final Re sult Performing Organization Address [facility] Co de Phone Number [facility]
[address] [place] [address], * (ABNORMAL) Vitamin B12 (11/12/2024 5:17 PM EDT) Vitamin B-12 1,669(H) 211 - 946 pg/mL 11/13/2024 9:54 AM EDT [facility] Blood Venipuncture / Unknown 11/12/2024 5:17 PM EDT 11/13/2024 2:59 AM EDT Narrative [facility] - 11/13/2024 9:54 AM EDT Results may be falsely increased if patient taking Biotin. us Aaliyah Abhijeet MIRANDA LAB BLOOD ORDERABLES Final Re sult [facility]
[address] [place] [address], * (ABNORMAL) Comprehensive Metabolic Panel (11/12/2024 5:17 PM EDT) Glucose 96 65 - 99 mg/dL 11/12/2024 5:51 PM EDT [facility] BUN 24.7(H) 8.0 - 23.0 mg/dL 11/12/2024 5:51 PM EDT [facility] Creatinine 1.06(H) 0.57 - 1.00 mg/dL 11/12/2024 5:51 PM EDT [facility] Sodium 139 136 - 145 mmol/L 11/12/2024 5:51 PM EDT [facility] Potassium 4.4 3.5 - 5.2 mmol/L 11/12/2024 5:51 PM EDT [facility] Chloride 101 98 - 107 mmol/L 11/12/2024 5:51 PM EDT [facility] CO2 27.9 22.0 - 29.0 mmol/L 11/12/2024 5:51 PM EDT [facility] Calcium 9.1 8.6 - 10.5 mg/dL 11/12/2024 5:51 PM EDT [facility] Total Protein 6.4 6.0 - 8.5 g/dL 11/12/2024 5:51 PM EDT [facility] Albumin 4.0 3.5 - 5.2 g/dL 11/12/2024 5:51 PM EDT [facility] ALT (SGPT) 15 1 - 33 U/L 11/12/2024 5:51 PM EDT [facility] AST (SGOT) 27 1 - 32 U/L 11/12/2024 5:51 PM EDT [facility] Alkaline Phosphatase 113 39 - 117 U/L 11/12/2024 5:51 PM EDT [facility] Total Bilirubin 0.2 0.0 - 1.2 mg/dL 11/12/2024 5:51 PM EDT [facility] Globulin 2.4 gm/dL 11/12/2024 5:51 PM EDT [facility] Comment:Calculated Result A/G Ratio 1.7 g/dL 11/12/2024 5:51 PM EDT [facility] BUN/Creatinine Ratio 23.3 7.0 - 25.0 11/12/2024 5:51 PM EDT [facility] Anion Gap 10.1 5.0 - 15.0 mmol/L 11/12/2024 5:51 PM EDT [facility] eGFR 58.1(L) >60.0 mL/min/1.7 3 11/12/2024 5:51 PM EDT [facility] Blood Venipuncture / Unknown 11/12/2024 5:17 PM EDT 11/12/2024 5:17 PM EDT [facility] - 11/12/2024 5:51 PM EDT [...] MD LAB BLOOD ORDERABLES Fin al Result [facility]
[address] [place] [address], * Mammo screening digital tomosynthesis bilateral (04/06/2015 [...] in patients with adenosis or dense breasts. [employer] GUID[employer]IN[employer] For breast cancer detection in asymptomatic women- Age ACR Recommendations 35-40 Baseline Mammogram 40-49 Annual or Biannual Mammogram 50+ Annual Mammogram Annual physical and frequent self breast examination. Patient has been entered into an automatic reminder system. Addendum Reading Radiologist- DIYA GOEL Addendum Releasing Radiologist- DIYA OGEL Addendum Released Date Time- 04/19/15 1550 Addendum Detail Manager- Jaylen BILATERAL SCREENING MAMMOGRAM WITH TOMOSYNTHESIS [...] in patients with adenosis or dense breasts. [employer] GUIDELINES For breast cancer detection in asymptomatic women- Age ACR Recommendations 35-40 Baseline Mammogram 40-49 Annual or Biannual Mammogram 50+ Annual Mammogram Annual physical and frequent self breast examination. Patient has been entered into an automatic reminder system. Reading Akash GOEL Releasing Akash GOEL Released Date Time- 04/06/15 1055 Detail Manager- Dave Procedure Note Diya Goel Jr., [...] in patients with adenosis or dense breasts. [employer] GUIDELINES For breast cancer detection in asymptomatic women- Age ACR Recommendations 35-40 Baseline Mammogram 40-49 Annual or Biannual Mammogram 50+ Annual Mammogram Annual physical and frequent self breast examination. Patient has been entered into an automatic reminder system. Addendum Reading Akash GOEL Addendum Releasing Akash GOEL Addendum Released Date Time- 04/19/15 1550 Addendum Detail Manager- Jaylen BILATERAL SCREENING MAMMOGRAM WITH TOMOSYNTHESIS [...] in patients with adenosis or dense breasts. [employer] GUIDELINES For breast cancer detection in asymptomatic women- Age ACR Recommendations 35-40 Baseline Mammogram 40-49 Annual or Biannual Mammogram 50+ Annual Mammogram Annual physical and frequent self breast examination. Patient has been entered into an automatic reminder system. Reading Radiologist- DIYA GOEL Releasing Radiologist- DIYA GOEL Released Date Time- 04/06/15 6065 Fernando Acosta us Gregorio Mcgee MD [facility] MAMMOGRAPHY ORDERABLES Edite d Result - Final from Last 3 Months or Most Recently Relevant to Health Maintenance Insurance [facility] MEDICARE A & B Advance Directives * CPR (Attempt to Resuscitate) (Latest Code Status on File) Date Activated Date Inactivated Comments 11/13/2024 2:01 AM 11/14/2024 6:43 PM Question Answer Comments Code Status (Patient has no pulse and is not breathing): CPR (Attempt to Resuscitate) Medical Interventions (Patie nt has pulse or is breathing): Full Support Care Teams Admitting Coordinator Relationship Specialty Start Date End Date Sandra Orozco APRN [address] [facility] [address] [facility] [address] [place] [address] PCP - General Internal Medicine 05/11/24
--- OUTSIDE RECORDS SUMMARY | 2025-01-07 14:19 | XMS_ITS | Referral Summary ---
Author Organization [employer] ([place], [place], [place], [place]) Address [address] [place] [address] Care Team Providers Care Social Service Worker Name Role Phone OrozcoKrystenrafael MIRANDA Primary Care [...] your living situation today? I have a [facility] place to live 10/13/2023 [...] Do you speak a language other than [place]an at [facility]? No 10/13/2023 Do you want help [...] on file Medical Devices Implanted Type Area Upper Caser Device Identifier Shelf Expiration Date Model / Serial / Lot Sealant Durasl Spine 5ml [id number] - [id number] Implanted:Qty: 1 on 01/31/2022 by Emeka Fernández MD at [facility] IMPLANTS N/A: Back [employer] 07/09/2023 [id number] / / [id number] Cement Spinal Confidence 2839-10-000 - [id number] Implanted:Qty: 2 on 10/14/[address] [facility] IMPLANTS N/A: Back J &J:DEPUY:DEPUY SPINE 06/08/2025 0 / / [id number] Insurance MEDICARE PART A B GENERIC COMMERCIAL Advance Directives For more information, please contact: [phone] Documents on File Type Date Recorded Patient Tube Man Expl anation Advance Directives and Marixa g Will 01/31/2022 8:44 AM * Full Code (Latest Code Status on File) Date Activated Date Inactivated Comments 10/12/2023 11:08 PM 10/15/2023 6:49 PM * Full Code Date Activated Date Inactivated Comments 01/31/2022 5:41 PM 02/01/2022 4:50 PM Healthcare Agents on File Name Relationship Healthcare Agent [facility] p Communication Luis Cruz Son First Alternate Healthcare Decision-Maker Care Teams Social Service Worker Relationship Specialty Start Date End Date Sandra Orozco, CALCINER OPERATOR [address] [place] [address] PCP - General Nurse Practitioner 01/24/22
--- OUTSIDE RECORDS SUMMARY | 2025-01-07 14:20 | XMS_ITS | Encounter Summary ---
Author Organization [facility] Address [address] [place] [address] Care Team Providers Care Director Of Employer Services Name Role Phone Sandra Orozco APRN Primary Care Provider [phone] Encounter Details Date Type Department Care Team (Late st Contact Info) Description 11/10/2024 Telephone [facility] [address] [facility] [address] [place] [phone] Christy Kirk MD [address] [facility] [address] [place] [address] Social History Tobacco Use Types Packs/Day Years [...] Nick/ KALIN * Telephone Encounter - Karlee Benitse MA - 11/10/2024 2:11 PM EDT THE PATIENT CALLED AND NEEDS SOONER APT. SHE SAW LUNG DOCTOR TODAY AND HE TOLD HER SHE NEEDED A SOONER APT. SHE CAN BE REACHED AT [phone] documented in this encounter Plan of Treatment Upcoming Encounters Date Type Department Care Team (Late st Contact Info) Description 02/16/2025 11:00 AM EST Office Visit [facility] [address] [facility] [address] [address] Kalin Solano APRN [address] [facility] [address], [place] [address] documented as of this encounter Visit Diagnoses Not on filedocumented in this encounter Care Teams Director Of Employer Services Relationship Specialty Start Date End Date Sandra Orozco APRN [facility] [address] [place] [address] PCP - General Internal Medicine 05/11/24 documented as of this encounter
--- OUTSIDE RECORDS SUMMARY | 2025-01-07 14:20 | XMS_ITS | Encounter Summary ---
Author Organization [employer] ([place], [place], [place], [place]) Address [address] [place] [address] Care Team Providers Care Sports Medicine Trainer Name Role Phone Sandra Orozco RUBEN Primary Care Provider Encounter Details Date Type Department Care Team (Late st Contact Info) Description 01/25/2020 Transcribed Document [facility] [address] [place] [address] ProviderAide MD [address] [place] [address] Social History Tobacco Use Types Packs/Day Years Used Date Smoking Tobacco: Never Assessed Comments Unknown Sex and Gender Information Value Date Recorded Sex Assigned at Not on file Legal Sex Female 2:35 PM CDT Gender Identity Not on file Sexual Orientation Not on file documented as of this encounter Miscellaneous Notes * Cerner Conversion Note - Historical ProviderMD - 01/25/2020 6:55 AM MOLD BUNCH TRIMMER DATE OF ADMISSION: 01/22/2020 HISTORY OF PRESENT [...] applying ice and heat, physical therapy, exercise, rduc-swo-[id number] medication, bed rest going to [facility], [...] to contact her primary physician and her sales superintendent to see if we can hold the [...] visit and the patient has been afebrile. /[id number] Karim Chaparro, MD, JELANI Pain Certified KR/AQ / KR / MODL CC: MD Sandra Valero APRN Electronically signed by Interface, [facility] Conversion Automotive Glass Mechanic Cerner at 06/27/2022 8:04 AM CDT documented in this encounter Plan of Treatment Not on file documented as of this encounter Visit Diagnoses Not on filedocumented in this encounter Care Teams Sports Medicine Trainer Relationship Specialty Start Date End Date Sandra Orozco, RUBEN [address] [address] PCP - General Nurse Practitioner 01/24/22 documented as of this encounter
--- OUTSIDE RECORDS SUMMARY | 2025-01-07 14:20 | XMS_ITS | Clinical Summary ---
Author Organization [employer] ([place], [place], [place], [place]) Address [address] [place] [address] Care Team Providers Care Peoplesoft Consultant Name Role Phone OrozcoKrysten randhawarafael MIRANDA Primary [...] speak a language other than Czech at [facility]? No 10/13/2023 Do you want [...] 06/22/2009, 08/29/2001 Medical Devices Implanted Type Area Diesel Service Technician Device Identifier Shelf Expiration Date Model / Serial / Lot Sealant Durasl Spine 5ml [id number] - [id number] Implanted:Qty: 1 on 01/31/2022 by Emeka Fernández MD at [facility] IMPLANTS N/A: Back [employer] 07/09/[id number] / / [id number] Cement Spinal Confidence 2839-10-000 - [id number] Implanted:Qty: 2 on 10/14/2023 at [facility] IMPLANTS N/A: Back J &J:DEPUY:DEPUY SPINE 06/08/2025 [id number] Insurance MEDICARE PART A B GENERIC COMMERCIAL Advance Directives For more information, please contact: [phone] Documents on File Type Date Recorded Patient Intravenous Therapy Nurse Expl anation Advance Directives and Livin g [...] Son First Alternate Healthcare Decision-Maker Care Teams Peoplesoft Consultant Relationship Specialty Start Date End Date Sandra Orozco APRN [address] [place] [address] PCP - General Nurse Practitioner 01/24/22
--- OUTSIDE RECORDS SUMMARY | 2025-01-07 14:20 | XMS_ITS | Encounter Summary ---
Author Organization [employer] ([place], [place], [place], [place]) Address [address] [place] [address] Care Team Providers Care Leasing Specialist Name Role Phone Sandra Orozco RUBEN Primary Care Provider Encounter Details Date Type Department Care Team (Late st Contact Info) Description 03/01/2020 Transcribed Document [facility] [place] [facility] [place] [address] ProviderAide MD [address] [place] [address] Social History Tobacco Use Types Packs/Day [...] Historical MD Derek - 03/01/2020 11:34 AM DISTRIBUTION A CLASS LINEMAN DATE OF PROCEDURE: 03/01/2020 SURGEON: Noemi Mayfield [...] 18-gauge Tuohy needle was advanced by the [id number] technique under direct fluoroscopic guidance into the [...] visit and the patient has been afebrile. /[id number] Noemi Mayfield MD, JELANI Pain Certified DELILAH/ANTHONY / KR / MODL /[id number] documented in this encounter Plan of Treatment Not on file documented as of this encounter Visit Diagnoses Not on filedocumented in this encounter Care Teams Leasing Specialist Relationship Specialty Start Date End Date Sandra Orozco, MACHINE CLEANER [address] [place] [address] PCP - General Nurse Practitioner 01/24/22 documented as of this encounter
--- OUTSIDE RECORDS SUMMARY | 2025-01-07 14:20 | XMS_ITS | Encounter Summary ---
[facility] Address [address] [place] [address] Care Team Providers Care Siding Stapler Name Role Phone Sandra Orozco APRN Primary Care Provider [phone] Encounter Details Date Type Department Care Team (Latest Contact Info) Description 11/12/2024 Travel Social History Tobacco Use Types Packs/Day Years Used Date Smoking Tobacco: Former Cigarettes Smokeless Tobacco: Never Comments:Smoked since 1973 Alcohol Use Standard Drinks/Week Comments Not Currently 0 (1 standard drink = 0.6 oz pur e alcohol) former [facility] Utilities Answer Date Recorded In the past [...] heating? Not very hard 11/13/2024 [facility] [place] [facility] Occupat ional Health - Occupational Stress [...] 4:43 PM EDT Minna Gamez, BERNICE * [place] Suicide Severity Rating Scale (Screener/Recent Self-Report) Question [...] Description 02/16/2025 11:00 AM EST Office Visit [facility] [address] [facility] [address], [place] [address] Dina Solano APRN [address] [facility] [address] [place] [address] documented as of this encounter Visit Diagnoses Not on filedocumented in this encounter Additional Health Concerns Infection Onset Date Last Indicated Resolved Time COVID Screen (preop/placement) 11/12/2024 11/12/2024 11/12/2024 8:24 PM EDT documented as of this encounter Care Teams Siding Stapler Relationship Specialty Start Date End Date Sandra Orozco APRN [address] [place] [id number] PCP - General Internal Medicine 05/11/24 documented as of this encounter
--- OUTSIDE RECORDS SUMMARY | 2025-01-07 14:20 | XMS_ITS | Encounter Summary ---
Author Organization [facility] ystem Address [address] [address] Care Team Providers Care Real Estate Professional Name Role Phone Sandra Orozco APRN Primary Care Provider [phone] Encounter Details Date Type Department Care Team (Late st Contact Info) Description 11/23/2024 Readmission Management [facility] [address] [place] [address] Eloise Farrar RN Social History Tobacco Use Types Packs/Day Years Used Date Smoking Tobacco: Former Cigarettes Smokeless Tobacco: Never Comments:Smoked since 1973 Alcohol Use Standard Drinks/Week Comments Not Currently 0 (1 standard drink = 0.6 oz pur e alcohol) former [facility] Utilities Answer Date Recorded In the past 12 months has [employer], gas, oil, or water HBCS threatened to shut off services in your [...] heating? Not very hard 11/13/2024 [facility] Occupat ional Health - Occupational [...] GED or equivalent No 11/13/2024 Preferred Language Cuban 11/13/2024 PHQ-2 Answer Date Recorded Patient Health [...] CHF Week 1 Survey Flowsheet Row Responses [facility] patient discharged from? [place] Does the patient have one of the following disease processes/diagnoses(primary or secondary)? CHF CHF Week 1 attempt successful? No Unsuccessful attempts Attempt 1 ELOISE Cruz - Registered Nurse documented in this encounter Plan of Treatment Upcoming Encounters Date Type Department Care Team (Late st Contact Info) Description 02/16/2025 11:00 AM EST Office Visit [facility] CARDIOLOGY [address] [place] [address] Dina Solano APRN [address] [facility] [address] [place] [address] documented as of this encounter Visit Diagnoses Not on filedocumented in this encounter Care Teams Real Estate Professional Relationship Specialty Start Date End Date Sandra Orozco APRN [address] [facility] [address] [facility] [address] [place] [address] PCP - General Internal Medicine 05/11/24 documented as of this encounter
--- OUTSIDE RECORDS SUMMARY | 2025-01-07 14:20 | XMS_ITS | Clinical Summary ---
Author Organization [facility] Address [address] [place] [address] Care Team Providers Care Director Of [employer] Name Role Phone Adryan Cooper MD Primary Care Provider + [phone] Allergies Active Allergy Reactions Criticality Noted Date [...] tablet (5 mg). 05/28/2016 Active HYDROcodone-gudelia taminophen ([place]) 10-325 MG tablet 1 tablet (10 mg [...] 2) 2008 [facility]-Breast Cancer Screening 04/06/201703/12, 04/06/2015 [id number] Vaccine ( season) 2024 01/20/2021, 06/16/2020 [facility]-Influenza [...] MEDICARE COMBINED PRIORITY 1 CARD Care Teams Director Of [employer] Relationship Specialty Start Date End Date Adryan Cooper MD [address] [place] [address] PCP - General 07/22/20
== END 2025-01-06 23:59 | disposition home or self-care (01) ==
LOC: LAB.DROPOF 01-07 14:09
PROVIDERS: PCP Nurse Practitioner Family; Visit Provider Nurse Practitioner Family
DX: R05.1 Acute cough (principal)
CPT/HCPCS: 87631

== ENCOUNTER 2025-01-15 11:56 | Outpatient (CLI) | payer MEDICARE, OTHER, SELFPAY ==
--- OUTSIDE RECORDS SUMMARY | 2024-11-26 10:00 | XMS_ITS | Encounter Summary ---
Author Organization [facility] ystem Address [address] [place] [address] Care Team Providers Care Concaver Name Role Phone Sandra Orozco APRN Primary Care Provider Reason for Visit * Reason Comments Shortness of Breath Encounter Details Date Type Department Care Team (Latest Contact Info) Description 11/26/2024 11:00 AM EDT Office Visit [facility] CARDIOLOGY [address] [facility] [address] [address] Dina Solano APRN [address] [facility] [address] [place] [address] Paroxysmal atrial fibrillation (Primary Dx); History of [...] 0.6 oz pur e alcohol) former [facility] Utilities Answer Date Recorded In the past 12 months has [employer], gas, oil, or water company threatened [...] care, and heating? Not very hard 11/13/2024 [facility] [place] of Occupat ional Health - Occupational Stress [...] GED or equivalent No 11/13/2024 Preferred Language Latvian 11/13/2024 PHQ-2 Answer Date Recorded Patient Health [...] 11:00 AM EDTAssociated Problem(s): Paroxysmal atrial fibrillation [id number] Continue Xarelto 15 mg p.o. daily Continue [...] Sandra Orozco APRN Date: 11/26/2024 Department: Minh [facility] CARDIOLOGY [address] [facility] [address] [facility] [id number] Chief Complaint: Chief Complaint Patient presents with Shortness of Breath Problem list: Paroxysmal atrial fibrillation/History of ischemic CVA/TIAs status post loop explant [id number] (Female, Age, CVA, PAD) PAF noted [...] to admission. 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 She [...] Plan Assessment & Plan Paroxysmal atrial fibrillation [id number] Continue Xarelto 15 mg p.o. daily Continue [...] 3 months (around 02/25/2025). Patient or patient international representative verbalized consent for the use of Ambient Listening during the visit with Dina Solano APRN for chart documentation. 11/26/2024 10:42 EDT Dina Solano APRN [facility] Cardiology documented in this encounter Plan of Treatment Upcoming Encounters Date Type Department Care Team (Late st Contact Info) Description 02/16/2025 11:00 AM EST Office Visit [facility] CARDIOLOGY [address] [facility] [address] [place] [address] Dina Solano APRN [address] [facility] [address] [place] [address] Scheduled Orders Name Type Priority Associated Diagnoses [...] APRN LAB BLOOD ORDERABLES Final Re sult [facility]
[address] [place] [address], documented in this encounter Visit Diagnoses Diagnosis Paroxysmal atrial fibrillation- Primary Atrial fibrillation History of CVA (cerebrovascular accident) Transient ischemic attack (TIA), and cerebral infarction without residual deficits Chronic respiratory failure with hypoxia Hyperlipidemia LDL goal <55 Prediabetes Other abnormal glucose Anemia, unspecified type Chronic venous insufficiency of lower extremity Chronic obstructive pulmonary disease, unspecified COPD type documented in this encounter Care Teams Concaver Relationship Specialty Start Date End Date Sandra Orozco APRN [address] [address] PCP - General Internal Medicine 05/11/24 documented as of this encounter
[2025-01-15 14:00] LABS: Hematocrit 42.0 % (37.0-47.0); Hemoglobin 12.5 g/dL (12.2-16.2); Immature Granulocytes % 0.6 %; Mean Corpuscular HGB Conc 29.8 g/dL (31.8-35.4); Mean Corpuscular Hemoglobin 25.0 pg (27.0-31.2); Mean Corpuscular Volume 84.0 fl (81-99); Nucleated Red Blood Cells % 0 %; Platelet Count 198 K/mm3 (142-424); Red Blood Count 5.00 M/mm3 (4.20-5.40); Red Cell Distribution Width-SD 79.3 fL; White Blood Count 8.1 K/mm3 (4.8-10.8)
[2025-01-15 14:33] LABS: Iron 84 ug/dL (37-170)
[2025-01-15 14:43] LABS: Total Iron Binding Capacity 311 ug/dL (265-497)
[2025-01-15 15:09] LABS: Ferritin 75.7 ng/ml (11.1-264)
[2025-01-15 15:10] LABS: Hemoglobin A1C 4.6 % (4.0-6.0)
--- OUTSIDE RECORDS SUMMARY | 2025-01-18 11:59 | XMS_ITS | Clinical Summary ---
Author Organization [facility] Address [address] [place] [address] Care Team Providers Care Report Analyst Name Role Phone Adryan Cooper MD Primary Care Provider + [phone] Allergies Active Allergy Reactions Criticality Noted Date [...] tablet (5 mg). 05/28/2016 Active HYDROcodone-gudelia taminophen ([place]) 10-325 MG tablet 1 tablet (10 mg [...] 2) 2008 [facility]-Breast Cancer Screening 04/06/201703/12, 04/06/2015 [id number] Vaccine ( season) 2024 01/20/2021, 06/16/2020 [facility]-Influenza [...] age to complete this topic [place] [address] COMBINED PRIORITY 1 CARD Care Teams Report Analyst Relationship Specialty Start Date End Date Adryan Cooper MD [address] [place] [address] PCP - General 07/22/20
--- OUTSIDE RECORDS SUMMARY | 2025-01-18 11:59 | XMS_ITS | Data Portability ---
Author Organization [facility] Office Address [address] [address] Care Team Providers Care Rubber Cutter Name Role Phone GLADIS DELCID Primary Care Provider [phone] Assessment Encounter Date Assessment Date Assessment LastModified [...] to mix with alcohol, or self-escalate it. [email or web address] Not available 12/10/2021 19:02:32 Plan of Treatment Reminders Order Date Submit Date Provider Last Modified By Organization Details Last Modified Time Details Appointments None recorded. Lab None recorded. Referral None recorded. Procedures None recorded. Surgeries None recorded. Imaging None recorded. Medication Orders Cascade 10 mg-325 mg tablet 2021 022 [facility], [facility] [place] [address] [place], [id number], 17:21:53 tizanidine 2 mg tablet 2021 022 [facility] [address] [place], [id number], 2 16:55:31 Patient TargetsNo targets recorded. Patient Instructions Encounter Date Encounter Id Patient Instructions Last Modified By Organization Details Last Modified Time 12/06/2021 [id number] Patient is to us e non-pharmacologic measures for mild pain and use opioid as needed only for moderate pain, to use before pain is severe to be most effective. patient is to try heat, ice, rest, repositioning, tens, massage, stretching, walking, and meditation prior to opioid use. [email or web address] Not available 12/10/2021 19:03:33 Patient seen today incident to a physician s previously established diagnosis and plan of care. Follow-up care provided today under the plan of care of: Aaliyah Olson MD and supervision of: Aaliyah Olson MD. [email or web address] Not available 12/10/2021 19:03:54 Reason for Referral None Reported. Problems Name Problem SNOMED Code Status Onset Date Resolution Date Notes Provider Name and Address Organization Details Recorded Time Chronic pain 44621979 Active 2020 (G89.29)O ther chronic pain Not Available [facility] 2 22:51:15 Spondylos is without myelopath y 62506342 Active 2020 (M47.816) Spondylos is without myelopath y or radiculop athy, lumbar region Not Available [facility] 22:51:15 Lumbosacr al spondylos is without myelopath y 12187467 Active 2020 (M47.817) Spondylos is without myelopath y or radiculop athy, lumbosacr al region Not Available [facility] 2 22:51:15 Degenerat ion of lumbosacr al intervert ebral disc 57532270 Active 2020 (M51.37)O ther intervert ebral disc degenerat ion, lumbosacr al region Not Available [facility] 2 22:51:15 Lumbosacr al radiculop athy 1225209 Active 2020 (M54.17)R adiculopa thy, lumbosacr al region Not Available [facility] 2 22:51:15 Muscle pain 31165152 Active 2020 (M79.1)My algia Not Available [facility] 2 22:51:15 Pre-surge ry testing Active 2020 (Z01.812) Encounter for preproced ural laborator y examinati on Not Available [facility] 2 22:51:16 Opioid dependenc e 31131255 Active 2020 (F11.20)O pioid dependenc e, uncomplic ated Not Available [facility] 2 22:51:15 Long-term current use of opiate analgesic drug 71458176131 4108 Active 2020 (Z79.891) 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 2 16:53:49 Problem Notes None recorded. Medical Equipment None Reported. Allergies Allergen ID Allergen Name Allergen Category Reaction Reaction Severity Criticality Documentation Date Start Date Code Code System Note Provider Name and Address Organization Details Recorded Time 80032 Celebrex medicatio n Not available Not available Not available 07/11/20212020 86375 7 RxNorm React ion: Blood in stool s(Mil d) Not Available [facility] 2 22:02:48 49895 leflunomi de Not available Not available Not available Not available 07/11/20212020 60288 RxNorm React ion: reall y bad sores (Mild ) Not Available [facility] 2 22:02:48 81383 Penicilli n Not available itching mild Not available 07/11/20212020 21625 RxNorm Not Available [facility] 2 22:02:48 29755 gabapenti n medicatio n Not available Not available Not available 07/11/20212020 34673 RxNorm React ion: BAD swell ing(M ild) Not Available [facility] 2 22:02:48 76191 nortripty line hydrochlo ride medicatio n Not available Not available Not available 07/11/2021202013 0 RxNorm Not Available [facility] 2 22:02:48 02695 Naprosyn medicatio n Not available Not available Not available 07/11/20212020 2 RxNorm React ion: throa t clos ed (M ild) Not Available [facility] 2 22:02:48 73788 Macrobid medicatio n Not available Not available Not available 07/11/20212020 36473 1 RxNorm React ion: hives and itchi ng(Mi ld) Not Available [facility] 2 22:02:48 Medications Name Sig Start Date [...] Rapid test - PLease FAX results to [phone] DX Z01.812 2021 active Not Available Not Available Not Avai lable Vitals Date Recorded Body height Body mass index (BMI) Body weight Body temperature Heart rate Oxygen saturation Oxygen saturation in Arterial blood by Pulse oximetry Systolic And Diastolic Provider Name and Address Organization Details Last Updated DateTime 2 152.4 cm 28.1 kg/m2 00949.3 g 98.9 [degF] 62 /min 97 % [...] ICD10 Code Diagnosis IMO Codes Diagnosis Note [id number] Claribel Ramsay, PATTERN CHART WRITER [address] [place] [address] 12/06/2021 16:00:41 12/07/2021 16:37:14 Long-term current use of opiate analgesic drug 4899073107 51258 Z79.891 Patient is noted to be low risk for opioids due to: previous hx of compliance UDS reviewed on and is Appropriat e all previous MOHSEN reviewed and is Appropriat e Opioid dependence 910714 00 F11.20 Medication compliance : According to [...] follows none Lumbosacra l spondylosis with radiculopathy 896857184 M47.27 patient says she is able to usually make this this Rx last about 2 month is using only prn would like to come back in 2 months Spasm of back muscles 20 3050482 M62.830 stable with meds, no changes Health Concerns Section Related Observation LastModified by Organization Detai ls LastModified Time None Recorded Concern Status LastModified by Organization Details LastModified Time None Recorded Advance Directives Directive None Recorded Payers Insurance Date Sequence Insurance Name Policy Number Policy Sanchez Covered Member ID Sanchez Member ID Guarantor Name 12/06/2021 1 [place] Casi Cruz [id number] Casi Cruz 12/06/2021 2 COMBINED INSURANCE - [employer] (MEDICARE SUPPLEMENT) Casi Cruz [id number] Casi Cruz Notes Date Note Type Note [...]
--- OUTSIDE RECORDS SUMMARY | 2025-01-18 11:59 | XMS_ITS | Encounter Summary ---
Author Organization [facility] ystem Address [address] [place] [address] Care Team Providers Care Lineman Apprentice Name Role Phone Sandra Orozco APRN Primary Care Provider Encounter Details Date Type Department Care Team (Late st Contact Info) Description 01/06/[address] [facility] C[facility] [address] [facility] [address], [place] [address] Dina Solano APRN [address] [facility] [address] [place] [address] Social History Tobacco Use Types Packs/Day Years Used Date Smoking Tobacco: Former Cigarettes 2 45 Q uit: 05/10/2023 Smokeless Tobacco: Never Comments:Liked to smoke Alcohol Use Standard Drinks/Week Comments Not Currently 0 (1 standard drink = 0.6 oz pur e alcohol) former [facility] Utilities Answer Date Recorded In the past 12 months has [employer], gas, oil, or water company threatened to [...] care, and heating? Not very hard 11/13/2024 [facility] [place] of Occupat ional Health - Occupational Stress [...] GED or equivalent No 11/13/2024 Preferred Language Cape Verdean 11/13/2024 PHQ-2 Answer Date Recorded Patient Health [...] FOR CARDIAC CLEARANCE Caller name: Winnie/Brea Davidson [facility] needs a clearance for a dental cleaning Unable to fax. Email was given: [email or web address] Since the [employer] do not have [...] AM EST Office Visit [facility] [address] [facility] [address] [place] [phone] Dina Solano APRN [address] [facility] [address] [place] [address] documented as of this encounter Visit Diagnoses Not on filedocumented in this encounter Care Teams Lineman Apprentice Relationship Specialty Start Date End Date Sandra Orozco APRN [address] [facility] [address] [place] [address] PCP - General Internal Medicine 05/11/24 documented as of this encounter
--- OUTSIDE RECORDS SUMMARY | 2025-01-18 11:59 | XMS_ITS | Clinical Summary ---
[facility] Address [address] [place] [address] Care Team Providers Care Quartz Mounter Name Role Phone Sandra Orozco APRN Primary [...] all over Nortriptyline Swelling Low 04/15/2024 Poison Arcadia Extract Hives,Itching,Swell ing,Rash Low 04/15/2024 Poison oak/poison [...] of breath and lower extremity edema. 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 daily Continue [...] Assessment & Plan (07/16/2024 12:10 PM EDT): [id number] Continue Xarelto 15 mg p.o. daily, [...] Type Department Care Team Description 01/06/2025 Telephone [facility] [address] [facility] [address], [place] [address] Dina Solano APRN 11/30/2024 Readmission Management [facility] [address] [place] [address] Christiano Gresham RN 11/26/2024 11:00 AM EDT Office Visit [facility] [address] [place] [address] [address], [place] [address] Dina Solano APRN Paroxysmal atrial fibrillation (Primary Dx); History of CVA (cerebrovascular accident); Chronic respiratory failure with hypoxia; Hyperlipidemia LDL goal <55; Prediabetes; Anemia, unspecified type; Chronic venous insufficiency of lower extremity; Chronic obstructive pulmonary disease, unspecified COPD type 11/26/2024 Travel 11/23/2024 Readmission Management [facility] [address] [place] [address] Kaykay Farrar RN 11/16/2024 Readmission Management [facility] [address] [place] [address] Omaira Knapp RN 11/12/2024 9:36 PM EDT - 11/14/2024 4:38 PM EDT Hospital Encounter [address] [place] [address] Logan Araujo MD Butler, Jennifer, MD Barbato, Hayley R, DO West, Christopher R, MD Referred by health care team coordinator scheduler (Primary Dx); Dyspnea on exertion; Chronic respiratory failure with hypoxia, on home O2 therapy; SMOOTH (obstructive sleep apnea); Elevated troponin; Moderate aortic valve regurgitation Discharge Disposition: Home or Self Care 11/12/2024 12:30 PM EDT Office Visit [facility] [address] [facility] [address], [place] [address] Dina Solano APRN Shortness of breath (Primary Dx); Generalized edema; Chronic respiratory failure with hypoxia; Paroxysmal atrial fibrillation; History of CVA (cerebrovascular accident); Moderate aortic valve regurgitation; Peripheral arterial disease 11/12/2024 Patient rounding ([facility] only) [facility] [address] [facility] [address] [place] [address] Dina Solano APRN 11/12/2024 Travel 11/10/2024 Telephone [facility] [address] [facility] [address] [place] [address] Christy Kirk MD from Last [...] = 0.6 oz pur e alcohol) former [facility] Utilities Answer Date Recorded In the past 12 months has e electric, gas, oil, or water [employer] threatened to shut off services in your [...] care, and heating? Not very hard 11/13/2024 [facility] [place] of Occupat ional Health - Occupational Stress [...] GED or equivalent No 11/13/2024 Preferred Language Vietnamese 11/13/2024 PHQ-2 Answer Date Recorded Patient Health [...] EST Office Visit [facility] [address] [facility] [address], [place] [address] Dina Solano APRN [address] [facility] [address] [place] [address] Health Maintenance Due Date Last Done Comments [...] EDT RESPIRATORY PANEL PCR W/ COVID-19 (SARS-COV-2), CREW DIRECTOR SWAB IN UTM/VTP, 2 HR TAT Routine 11/13/2024 3:26 AM EDT BLOOD GAS, VENOUS W/CO-OXIMETRY STAT 11/12/2024 11:[address] ANGIOGRAM CHEST PULMONARY EMBOLISM STAT 11/12/2024 7:46 PM EDT COVID-19/FLUA&B/RSV, CREW DIRECTOR SWAB IN TRANSPORT MEDIA 1 HR TAT [...] Re sult [facility]
[address] [place] [address], * ECHO COMPLETE W/ DOPPLER AND COLOR [...] - 10.80 10*3/mm3 11/13/2024 12:36 PM EDT [facility] RBC 3.89 3.77 - 5.28 10*6/mm3 11/13/2024 12:36 PM EDT [facility] Hemoglobin 8.1(L) 12.0 - 15.9 g/dL 11/13/2024 12:36 PM EDT [facility] Hematocrit 29.1(L) 34.0 - 46.6 % 11/13/2024 12:36 PM EDT [facility] MCV 74.8(L) 79.0 - 97.0 fL 11/13/2024 12:36 PM EDT [facility] MCH 20.8(L) 26.6 - 33.0 pg 11/13/2024 12:36 PM EDT [facility] MCHC 27.8(L) 31.5 - 35.7 g/dL 11/13/2024 12:36 PM EDT [facility] RDW 19.0(H) 12.3 - 15.4 % 11/13/2024 12:36 PM EDT [facility] RDW-SD 51.3 37.0 - 54.0 fl 11/13/2024 12:36 PM EDT [facility] MPV 9.8 6.0 - 12.0 fL 11/13/2024 12:36 PM EDT [facility] Platelets 227 140 - 450 10*3/mm3 11/13/2024 12:36 PM [facility] Neutrophil % 63.6 42.7 - 76.0 % 11/13/2024 12:36 PM [facility] Lymphocyte % 23.3 19.6 - 45.3 % 11/13/2024 12:36 PM [facility] Monocyte % 8.9 5.0 - 12.0 % 11/13/2024 12:36 PM [facility] Eosinophil % 2.8 0.3 - 6.2 % 11/13/2024 12:36 PM [facility] Basophil % 0.7 0.0 - 1.5 % 11/13/2024 12:36 PM [facility] Immature Grans % 0.7(H) 0.0 - 0.5 % 11/13/2024 12:36 PM [facility] Neutrophils, Absolute 3.44 1.70 - 7.00 10*3/mm3 11/13/2024 12:36 PM [facility] Lymphocytes, Absolute 1.26 0.70 - 3.10 10*3/mm3 11/13/2024 12:36 PM [facility] Monocytes, Absolute 0.48 0.10 - 0.90 10*3/mm3 11/13/2024 12:36 PM [facility] Eosinophils, Absolute 0.15 0.00 - 0.40 10*3/mm3 11/13/2024 12:36 PM [facility] Basophils, Absolute 0.04 0.00 - 0.20 10*3/mm3 11/13/2024 12:36 PM [facility] Immature Grans, Absolute 0.04 0.00 - 0.05 10*3/mm3 11/13/2024 12:36 PM [facility] nRBC 0.0 0.0 - 0.2 /100 WBC 11/13/2024 12:36 PM EDT [facility] Blood Venipuncture / Unknown 11/13/2024 12:07 PM EDT 11/13/2024 12:26 PM EDT Aaliyah Jha APRN LAB BLOOD ORDERABLES Final Re sult Performing Organization Address City/[facility]/ZIP Co de Phone Number [facility]
[address] [place] [address], [place] [phone] * (ABNORMAL) Reticulocytes (11/13/2024 12:07 PM EDT) Reticulocyte % 2.78(H) 0.70 - 1.90 % 11/13/2024 12:32 PM EDT [facility] Reticulocyte Absolute 0.1081 0.0200 - 0.1300 10*6/mm3 11/13/2024 12:32 PM EDT [facility] Blood Venipuncture / Unknown 11/13/2024 12:07 PM EDT 11/13/2024 12:26 PM EDT Aaliyah Jha APRN LAB BLOOD ORDERABLES Final Re sult Performing Organization Address [facility] Co de Phone Number [facility]
[address] [place] [address], * TSH (11/13/2024 12:07 PM EDT) TSH 2.770 0.270 - 4.200 uIU/mL 11/13/2024 12:56 PM EDT [facility] Blood Venipuncture / Unknown 11/13/2024 12:07 PM EDT 11/13/2024 12:26 PM EDT Aaliyah Jha APRN LAB BLOOD ORDERABLES Final Re sult Performing Organization Address City/[facility]/ZIP Co de Phone Number [facility]
[address] [place] [address], * Magnesium (11/13/2024 12:07 PM EDT) Only the most recent of2 resultswithin the time period is included. Magnesium 1.9 1.6 - 2.4 mg/dL 11/13/2024 12:56 PM EDT [facility] Blood Venipuncture / Unknown 11/13/2024 12:07 PM EDT 11/13/2024 12:26 PM EDT Aaliyah Jha APRN LAB BLOOD ORDERABLES Final Re sult [facility]
[address] [place] [address], * (ABNORMAL) Hemoglobin A1c (11/13/2024 12:07 PM EDT) [facility] Hemoglobin A1C 5.84(H) 4.80 - 5.60 % 11/13/2024 1:23 PM EDT [facility] Blood Venipuncture / Unknown 11/13/2024 12:07 PM EDT 11/13/2024 12:26 PM EDT Narrative [facility] - 11/13/2024 1:23 PM EDT Hemoglobin A1C Ranges: Increased Risk for Diabetes 5.7% to 6.4% Diabetes >= 6.5% Diabetic Goal < 7.0% Aaliyah Jha APRN LAB BLOOD ORDERABLES Final Re sult [facility]
[address] [place] [address], * Folate RBC (11/13/2024 12:07 PM EDT) Pathologist [facility] Folate, Hemolysate 538.0 Not Estab. ng/mL 11/16/2024 9:09 AM EDT [facility] Hematocrit 40.7 34.0 - 46.6 % 11/16/2024 9:09 AM EDT [facility] RBC Folate 1322 >498 ng/mL 11/16/2024 9:09 AM EDT [facility] Blood Venipuncture / Unknown 11/13/2024 12:07 PM EDT 11/13/2024 12:26 PM EDT Narrative [facility] - 11/16/2024 9:09 AM EDT Performed at: 01 - [address] [id number] Brake Lining Maker: Gomez Crooks PhD, Phone: [phone] us Aaliyah Jha APRN LAB BLOOD ORDERABLES Edited R esult - Final [facility] [address] [place] [address], * (ABNORMAL) Basic Metabolic Panel (11/13/2024 12:07 PM EDT) Glucose 100(H) 65 - 99 mg/dL 11/13/2024 12:56 PM EDT [facility] BUN 19.7 8.0 - 23.0 mg/dL 11/13/2024 12:56 PM EDT [facility] Creatinine 0.93 0.57 - 1.00 mg/dL 11/13/2024 12:56 PM EDT [facility] Sodium 143 136 - 145 mmol/L 11/13/2024 12:56 PM EDT [facility] Potassium 3.8 3.5 - 5.2 mmol/L 11/13/2024 12:56 PM EDT [facility] Chloride 102 98 - 107 mmol/L 11/13/2024 12:56 PM EDT [facility] CO2 31.1(H) 22.0 - 29.0 mmol/L 11/13/2024 12:56 PM EDT [facility] Calcium 8.6 8.6 - 10.5 mg/dL 11/13/2024 12:56 PM EDT [facility] BUN/Creatinine Ratio 21.2 7.0 - 25.0 11/13/2024 12:56 PM EDT [facility] Anion Gap 9.9 5.0 - 15.0 mmol/L 11/13/2024 12:56 PM EDT [facility] eGFR 67.9 >60.0 mL/min/1.7 3 11/13/2024 12:56 PM EDT [facility] Blood Venipuncture / Unknown 11/13/2024 12:07 PM EDT 11/13/2024 12:26 PM EDT Narrative [facility] - 11/13/2024 12:56 PM [...] Final Re sult [facility]
[address] [place] [address], * Duplex Venous Lower Extremity - Bilateral [...] resultswithin the time period is included. Pathologist [facility] QT Interval 410 ms ECG QTC [...] change was found Confirmed by ABDULLAHI HENDRICKSON ([id number]) on 11/13/2024 7:39:07 PM Referred By: Confirmed [...] change was found Confirmed by ABDULLAHI HENDRICKSON ([id number]) on 11/13/2024 7:39:07 PM Referred By: Confirmed By: ABDULLAHI HENDRICKSON us Aaliyah Jha APRN ECG ORDERABLES Final Result ECG * Respiratory Panel PCR w/COVID-19(SARS-CoV-2) SIDRA/CHECO/SAUD/PAD/COR/ERIC In-House, CREW DIRECTOR Swab in UTM/VTM, 2 HR TAT - Swab, Nasopharynx (11/13/2024 3:26 AM EDT) ADENOVIRUS, PCR Not Detected Not Detected [facility] 11/13/2024 4:48 AM EDT [facility] Coronavirus 229E Not Detected Not Detected [facility] 11/13/2024 4:48 AM EDT [facility] Coronavirus HKU1 Not Detected Not Detected [facility] 11/13/2024 4:48 AM EDT [facility] Coronavirus NL63 Not Detected Not Detected [facility] 11/13/2024 4:48 AM EDT [facility] Coronavirus OC43 Not Detected Not Detected [facility] 11/13/2024 4:48 AM EDT [facility] COVID19 Not Detected Not Detected - Ref. Range [facility] 11/13/2024 4:48 AM EDT [facility] Human Metapneumovirus Not Detected Not Detected [facility] 11/13/2024 4:48 AM EDT [facility] Human Rhinovirus/Enterov irus Not Detected Not Detected [facility] 11/13/2024 4:48 AM EDT [facility] Influenza A PCR Not Detected Not Detected [facility] 11/13/2024 4:48 AM EDT [facility] Influenza B PCR Not Detected Not Detected [facility] 11/13/2024 4:48 AM EDT [facility] Parainfluenza Virus 1 Not Detected Not Detected [facility] 11/13/2024 4:48 AM EDT [facility] Parainfluenza Virus 2 Not Detected Not Detected [facility] 11/13/2024 4:48 AM EDT [facility] Parainfluenza Virus 3 Not Detected Not Detected [facility] 11/13/2024 4:48 AM EDT [facility] Parainfluenza Virus 4 Not Detected Not Detected [facility] 11/13/2024 4:48 AM EDT [facility] RSV, PCR Not Detected Not Detected [facility] 11/13/2024 4:48 AM EDT [facility] Bordetella pertussis pcr Not Detected Not Detected [facility] 11/13/2024 4:48 AM EDT [facility] Bordetella parapertussis PCR Not Detected Not Detected [facility] 11/13/2024 4:48 AM EDT [facility] Chlamydophila pneumoniae PCR Not Detected Not Detected [facility] 11/13/2024 4:48 AM EDT [facility] Mycoplasma pneumo by PCR Not Detected Not Detected [facility] 11/13/2024 4:48 AM EDT [facility] Swab Nasopharyngeal structure / Unknown Collection / Unknown 11/13/2024 3:26 AM EDT 11/13/2024 4:00 AM EDT [facility] - 11/13/2024 4:48 AM EDT [...] MICROBIOLOGY - GENERAL ORDERA BLES Final Result [facility]
[address] [place] [address], * (ABNORMAL) Blood Gas, Venous With Co-Ox (11/12/2024 11:16 PM EDT) Site Nurse/Dr Draw 11/12/2024 11:17 PM EDT [facility] pH, Venous 7.337 7.310 - 7.410 pH Units 11/12/2024 11:17 PM EDT [facility] pCO2, Venous 59.6(H) 41.0 - 51.0 mm Hg 11/12/2024 11:17 PM EDT [facility] Comment:83 Value above refer ence range pO2, Venous 30.4 27.0 - 53.0 mm Hg 11/12/2024 11:17 PM EDT [facility] HCO3, Venous 31.9(H) 22.0 - 28.0 mmol/L 11/12/2024 11:17 PM EDT [facility] Base Excess, Venous 5.0(H) -2.0 - 2.0 mmol/L 11/12/2024 11:17 PM EDT [facility] Hemoglobin, Blood Gas 9.3(L) 14 - 18 g/dL 11/12/2024 11:17 PM EDT [facility] Oxyhemoglobin Venous 48.3 % 06/2024 11:17 PM EDT [facility] Methemoglobin Venous 0.4 % 06/2024 11:17 PM EDT [facility] Carboxyhemoglobin Venous 1.7 % 11/12/2024 11:17 PM EDT [facility] CO2 Content 33.7(H) 22 - 33 mmol/L 11/12/2024 11:17 PM EDT [facility] Temperature 37.0 11/12/2024 11:17 PM EDT [facility] Barometric Pressure for Blood Gas 11/12/2024 11:17 PM EDT [facility] Comment:N/A Modality Nasal Cannula 11/12/2024 11:17 PM EDT [facility] FIO2 28 % 11/12/2024 11:17 PM EDT [facility] Rate 0 Breaths/ minute 11/12/2024 11:17 PM EDT [facility] PIP 0 cmH2O 11/12/2024 11:17 PM EDT [facility] Comment:Meter: [id number] [place]: [id number] IPAP 0 11/12/2024 11:17 PM EDT [facility] EPAP 0 11/12/2024 11:17 PM EDT [facility] Venous Blood 11/12/2024 11:1 6 PM EDT 11/12/2024 11:16 PM EDT us Logan Araujo MD LAB BLOOD ORDERABLES Fin al Result [facility]
[address] [place] [address], * CT Angiogram Chest Pulmonary Embolism (11/12/2024 7:46 PM EDT) Anatomical Region Laterality Modality Chest N/A Computed Tomogra phy 11/12/2024 8:22 PM EDT Impressions 11/12/2024 8:31 PM EDT No evidence of pulmonary embolus. No acute abnormality. Electronically Signed: Jed Machuca MD 11/12/2024 8:31 PM EDT Workstation ID: [id number] Hermann 11/12/2024 8:[address] ANGIOGRAM [...] MD 11/12/2024 8:31 PM EDT Workstation ID: [id number] Logan Araujo MD IMG CT ORDERABLES Final Result * COVID-19, FLU A/B, RSV PCR 1 HR TAT - Swab, Nasopharynx (11/12/2024 7:21 PM EDT) Pathologist [facility] COVID19 Not Detected Not Detected - Ref. Range [facility]P[employer] 11/12/2024 8:24 PM EDT [facility] Influenza A PCR Not Detected Not Detected [facility] [employer] 11/12/2024 8:24 PM EDT [facility] Influenza B PCR Not Detected Not Detected [facility] [employer] 11/12/2024 8:24 PM EDT [facility] RSV, PCR Not Detected Not Detected [facility] [employer] 11/12/2024 8:24 PM EDT [facility] Swab Nasopharyngeal structure / Unknown Collection / Unknown 11/12/2024 7:21 PM EDT 11/12/2024 7:46 PM EDT Logan Araujo MD MICROBIOLOGY - GENERAL O RDERABLES Final Result [facility]
[address] [place] [address], * (ABNORMAL) Urinalysis, Microscopic Only - Urine, Clean Catch (11/12/2024 7:20 PM EDT) Pathologist [facility] RBC, UA 0-2 None Seen, 0-2 /HPF 11/12/2024 8:00 PM EDT [facility] WBC, UA 11-20(A) None Seen, 0-2 /HPF 11/12/2024 8:00 PM EDT [facility] Bacteria, UA None Seen None Seen /HPF 11/12/2024 8:00 PM EDT [facility] Squamous Epithelial Cells, UA 3-6(A) None Seen, 0-2 /HPF 11/12/2024 8:00 PM EDT [facility] Hyaline Casts, UA 0-2 None Seen /LPF 11/12/2024 8:00 PM EDT [facility] Methodology Automated Microscopy 11/12/2024 8:00 PM EDT [facility] Urine Urine specimen obtained by clean catch procedure / Unknown Collection / Unknown 11/12/2024 7:20 PM EDT 11/12/2024 7:46 PM EDT Logan Araujo MD URINE ORDERABLES Final R esult [facility]
[address] [place] [address], * (ABNORMAL) Urinalysis With Microscopic If Indicated (No Culture) - Urine, Clean Catch (11/12/2024 7:20 PM EDT) Color, UA Yellow Yellow, Straw 11/12/2024 8:00 PM EDT [facility] Appearance, UA Clear Clear 11/12/2024 8:00 PM EDT [facility] pH, UA 5.5 5.0 - 8.0 11/12/2024 8:00 PM EDT [facility] Specific [place], UA >1.030(H) 1.005 - 1.030 11/12/2024 8:00 PM EDT [facility] Glucose, UA Negative Negative 11/12/2024 8:00 PM EDT [facility] Ketones, UA Negative Negative 11/12/2024 8:00 PM EDT [facility] Bilirubin, UA Negative Negative 11/12/2024 8:00 PM EDT [facility] Blood, UA Negative Negative 11/12/2024 8:00 PM EDT [facility] Protein, UA Trace(A) Negative 11/12/2024 8:00 PM EDT [facility] Leuk Esterase, UA Small (1+)(A) Negative 11/12/2024 8:00 PM EDT [facility] Nitrite, UA Negative Negative 11/12/2024 8:00 PM EDT [facility] Urobilinogen, UA 1.0 E.U./dL 0.2 - 1.0 E.U./dL 11/12/2024 8:00 PM EDT [facility] Urine Urine specimen obtained by clean catch procedure / Unknown Collection / Unknown 11/12/2024 7:20 PM EDT 11/12/2024 7:46 PM EDT Logan Araujo MD URINE ORDERABLES Final R esult Performing Organization Address City/[facility]/ZIP Co de Phone Number [facility]
[address] [place] [address], [place] [phone] * Sodium, Urine, Random - Urine, Clean Catch (11/12/2024 7:20 PM EDT) Sodium, Urine <20 mmol/L 11/13/2024 3:37 AM EDT [facility] Urine Urine specimen obtained by clean catch procedure / Unknown Collection / Unknown 11/12/2024 7:20 PM EDT 11/12/2024 7:46 PM EDT Narrative [facility] - 11/13/2024 3:37 AM EDT Reference intervals for random urine have not been established. Clinical usage is dependent upon physician's interpretation in combination with other laboratory tests. Aaliyah Jha APRN URINE ORDERABLES Final Result Performing Organization Address [facility]/ZIP Co de Phone Number [facility]
[address] [place] [address], [place] [phone] * Osmolality, Urine - Urine, Clean Catch (11/12/2024 7:20 PM EDT) Osmolality, Urine 837 300 - 1,100 mOsm/kg 11/13/2024 4:00 AM EDT [facility] Urine Urine specimen obtained by clean catch procedure / Unknown Collection / Unknown 11/12/2024 7:20 PM EDT 11/12/2024 7:46 PM EDT Aaliyah Jha APRN URINE ORDERABLES Final Result Performing Organization Address City/[facility]/ZIP Co de Phone Number [facility]
[address] [place] [address], [place] [phone] * Creatinine Urine Random (kidney function) GFR component - Urine, Clean Catch (11/12/2024 7:20 PM EDT) Creatinine, Urine 276.6 mg/dL 11/13/2024 9:46 AM EDT [facility] Urine Urine specimen obtained by clean catch procedure / Unknown Collection / Unknown 11/12/2024 7:20 PM EDT 11/13/2024 3:13 AM EDT Narrative [facility] - 11/13/2024 9:46 AM EDT Reference intervals for random urine have not been established. Clinical usage is dependent upon physician's interpretation in combination with other laboratory tests. us Aaliyah Jha APRN URINE ORDERABLES Final Result [facility]
[address] [place] [address], [place] [phone] * Urine Culture - Urine, Urine, Clean Catch (11/12/2024 7:20 PM EDT) Urine Culture No growth [id number] 11/14/2024 12:26 PM EDT [facility] Urine Urine specimen obtained by clean catch procedure / Unknown Collection / Unknown 11/12/2024 7:20 PM EDT 11/13/2024 12:57 AM EDT Logan Araujo MD MICROBIOLOGY - GENERAL O RDERABLES Final Result Performing Organization Address [facility]/ZIP Co de Phone Number [facility]
[address] [place] [address], [place] [phone] * (ABNORMAL) High Sensitivity Troponin T 1Hr (11/12/2024 7:16 PM EDT) HS Troponin T 16(H) <14 ng/L 11/12/2024 7:53 PM EDT [facility] Troponin T Numeric Delta -1 ng/L 11/12/2024 7:53 PM EDT [facility] Troponin T % Delta -6 Abnormal if >/= 20% 11/12/2024 7:53 PM EDT [facility] Blood Line / Unknown 11/12/2024 7: 16 PM EDT 11/12/2024 7:20 PM EDT Narrative [facility] - 11/12/2024 7:53 PM [...] MD LAB BLOOD ORDERABLES Fin al Result [facility]
[address] [place] [address], [place] [phone] * (ABNORMAL) Iron Profile w/o Ferritin (11/12/2024 7:16 PM EDT) Iron 21(L) 37 - 145 mcg/dL 11/13/2024 3:24 AM EDT [facility] Iron Saturation (TSAT) 4(L) 20 - 50 % 11/13/2024 3:24 AM EDT [facility] Transferrin 321 200 - 360 mg/dL 11/13/2024 3:24 AM EDT [facility] TIBC 478 298 - 536 mcg/dL 11/13/2024 3:24 AM EDT [facility] Blood Venipuncture / Unknown 11/12/2024 7:16 PM EDT 11/13/2024 2:57 AM EDT Aaliyahcolleen Jha APRN LAB BLOOD ORDERABLES Final Re sult Performing Organization Address City/[facility]/ZIP Co de Phone Number [facility]
[address] [place] [address], [place] [phone] * Ferritin (11/12/2024 7:16 PM EDT) Ferritin 13.80 13.00 - 150.00 ng/mL 11/13/2024 3:24 AM EDT [facility] Blood Venipuncture / Unknown 11/12/2024 7:16 PM EDT 11/13/2024 2:57 AM EDT Narrative [facility] - 11/13/2024 3:24 AM EDT Results may be falsely decreased if patient taking Biotin. Aaliyahcolleen Jha APRN LAB BLOOD ORDERABLES Final Re sult Performing Organization Address City/[facility]/ZIP Co de Phone Number [facility]
[address] [place] [address], [place] [phone] * XR Chest 1 View (11/12/2024 6:30 PM EDT) Anatomical Region Laterality Modality Body N/A Radiographic Tatyana ging 11/12/2024 7:00 PM EDT Impressions 11/12/2024 7:02 PM EDT Impression: 1. No acute cardiopulmonary disease. Electronically Signed: Arben Neely MD 11/12/2024 7:02 PM EDT Workstation ID: [id number] Narrative 11/12/2024 7:02 PM EDT XR CHEST [...] MD 11/12/2024 7:02 PM EDT Workstation ID: [id number] Logan Araujo MD IMG DIAGNOSTIC IMAGING O RDERABLES Final Result * Castell[place] Top (11/12/2024 5:17 PM EDT) Pathologist [facility] Extra Tube Hold for add-ons. 11/12/2024 5:32 PM EDT [facility] Comment:Auto resulted. Blood Venipuncture / Unknown 11/12/2024 5:17 PM EDT 11/12/2024 5:17 PM EDT Logan Araujo MD LAB BLOOD ORDER ONLY Fin al Result [facility]
[address] [place] [address], * TSH Rfx On Abnormal To Free T4 (11/12/2024 5:17 PM EDT) Pathologist [facility] TSH 2.480 0.270 - 4.200 uIU/mL 11/12/2024 5:51 PM EDT [facility] Blood Venipuncture / Unknown 11/12/2024 5:17 PM EDT 11/12/2024 5:17 PM EDT Logan Araujo MD LAB BLOOD ORDERABLES Fin al Result [facility]
[address] [place] [address], [place] [phone] * Gold Top - SST (11/12/2024 5:17 PM EDT) Extra Tube Hold for add-ons. 11/12/2024 5:32 PM EDT [facility] Comment:Auto resulted. Blood Venipuncture / Unknown 11/12/2024 5:17 PM EDT 11/12/2024 5:17 PM EDT Logan Araujo MD LAB BLOOD ORDER ONLY Fin al Result Performing Organization Address [facility]/ZIP Co de Phone Number [facility]
[address] [place] [address], [place] [phone] * Green Top (Gel) (11/12/2024 5:17 PM EDT) Extra Tube Hold for add-ons. 11/12/2024 5:31 PM EDT [facility] Comment:Auto resulted. Blood Venipuncture / Unknown 11/12/2024 5:17 PM EDT 11/12/2024 5:17 PM EDT Logan Araujo MD LAB BLOOD ORDER ONLY Fin al Result [facility]
[address] [place] [address], [place] [phone] * Scan Slide (11/12/2024 5:17 PM EDT) Anisocytosis Slight/1+ None Seen 11/12/2024 6:07 PM EDT [facility] Hypochromia Slight/1+ None Seen 11/12/2024 6:07 PM EDT [facility] Microcytes Mod/2+ None Seen 11/12/2024 6:07 PM EDT [facility] WBC Morphology Normal Normal 11/12/2024 6:07 PM EDT [facility] Platelet Morphology Normal Normal 11/12/2024 6:07 PM EDT [facility] Blood Venipuncture / Unknown 11/12/2024 5:17 PM EDT 11/12/2024 5:17 PM EDT Logan Araujo MD LAB BLOOD ORDERABLES Fin al Result Performing Organization Address City/[facility]/ZIP Co de Phone Number [facility]
[address] [place] [address], * Lavender Top (11/12/2024 5:17 PM EDT) Extra Tube hold for add-on 11/12/2024 5:31 PM EDT [facility] Comment:Auto resulted Blood Venipuncture / Unknown 11/12/2024 5:17 PM EDT 11/12/2024 5:17 PM EDT Logan Araujo MD LAB BLOOD ORDER ONLY Fin al Result [facility]
[address] [place] [address], [place] [phone] * Light Blue Top (11/12/2024 5:17 PM EDT) Extra Tube Hold for add-ons. 11/12/2024 5:31 PM EDT [facility] Comment:Auto resulted Blood Venipuncture / Unknown 11/12/2024 5:17 PM EDT 11/12/2024 5:17 PM EDT Logan Araujo MD LAB BLOOD ORDER ONLY Fin al Result Performing Organization Address [facility]/ZIP Co de Phone Number [facility]
[address] [place] [address], * (ABNORMAL) High Sensitivity Troponin T (11/12/2024 5:17 PM EDT) [facility] HS Troponin T 17(H) <14 ng/L 11/12/2024 5:51 PM EDT [facility] Blood Venipuncture / Unknown 11/12/2024 5:17 PM EDT 11/12/2024 5:17 PM EDT [facility] - 11/12/2024 5:51 PM EDT [...] ORDERABLES Fin al Result Performing Organization Address City/[facility]/ZIP Co de Phone Number [facility]
[address] [place] [address], * (ABNORMAL) D-dimer, Quantitative (11/12/2024 5:17 PM EDT) [facility] D-Dimer, Quantitative 10.36(H) 0.00 - 0.66 MCGFEU/mL 11/12/2024 6:00 PM EDT [facility] Blood Venipuncture / Unknown 11/12/2024 5:17 PM EDT 11/12/2024 5:17 PM EDT Narrative [facility] - 11/12/2024 6:00 PM EDT According to the assay lead applications developer's published package insert, a normal (<0.50 MCGFEU/mL) D-dimer result in conjunction with a non-high clinical probability assessment, excludes deep vein thrombosis (DVT) and pulmonary embolism (PE) with high sensitivity. D-dimer values increase with age and this can make VTE exclusion of an older population difficult. To address this, the [employer], based on best available [...] ORDERABLES Fin al Result Performing Organization Address [facility]/ZIP Co de Phone Number [facility]
[address] [place] [address], * Phosphorus (11/12/2024 5:17 PM EDT) Phosphorus 4.1 2.5 - 4.5 mg/dL 11/12/2024 5:51 PM EDT [facility] Blood Venipuncture / Unknown 11/12/2024 5:17 PM EDT 11/12/2024 5:17 PM EDT us Logan Araujo MD LAB BLOOD ORDERABLES Fin al Result [facility]
[address] [place] [address], * BNP (11/12/2024 5:17 PM EDT) proBNP 247.0 0.0 - 900.0 pg/mL 11/12/2024 5:51 PM EDT [facility] Blood Venipuncture / Unknown 11/12/2024 5:17 PM EDT 11/12/2024 5:17 PM EDT Narrative [facility] - 11/12/2024 5:51 PM [...] MD LAB BLOOD ORDERABLES Fin al Result [facility]
[address] [place] [address], * Lipase (11/12/2024 5:17 PM EDT) Lipase 20 13 - 60 U/L 11/12/2024 5:51 PM EDT [facility] Blood Venipuncture / Unknown 11/12/2024 5:17 PM EDT 11/12/2024 5:17 PM EDT Logan Araujo MD LAB BLOOD ORDERABLES Fin al Result [facility]
[address] [place] [address], * Lactic Acid, Plasma (11/12/2024 5:17 PM EDT) Lactate 1.6 0.5 - 2.0 mmol/L 11/12/2024 5:49 PM EDT [facility] Comment:Falsely depressed re sults may occur on samples drawn from patients receiving N-Acetylcysteine (NAC) or Metamizole. Blood Venipuncture / Unknown 11/12/2024 5:17 PM EDT 11/12/2024 5:17 PM EDT Logan Araujo MD LAB BLOOD ORDERABLES Fin al Result Performing Organization Address City/[facility]/ZIP Co de Phone Number [facility]
[address] [place] [address], [place] [phone] * Folate (11/12/2024 5:17 PM EDT) Folate >20.00 4.78 - 24.20 ng/mL 11/13/2024 9:54 AM EDT [facility] Blood Venipuncture / Unknown 11/12/2024 5:17 PM EDT 11/13/2024 2:59 AM EDT Narrative [facility] - 11/13/2024 9:54 AM EDT Results may be falsely increased if patient taking Biotin. Aaliyah Jha APRN LAB BLOOD ORDERABLES Final Re sult Performing Organization Address [facility] Co de Phone Number [facility]
[address] [place] [address], * (ABNORMAL) Vitamin B12 (11/12/2024 5:17 PM EDT) Vitamin B-12 1,669(H) 211 - 946 pg/mL 11/13/2024 9:54 AM EDT [facility] Blood Venipuncture / Unknown 11/12/2024 5:17 PM EDT 11/13/2024 2:59 AM EDT Narrative [facility] - 11/13/2024 9:54 AM EDT Results may be falsely increased if patient taking Biotin. us Aaliyah Abhijeet MIRANDA LAB BLOOD ORDERABLES Final Re sult [facility]
[address] [place] [address], * (ABNORMAL) Comprehensive Metabolic Panel (11/12/2024 5:17 PM EDT) Glucose 96 65 - 99 mg/dL 11/12/2024 5:51 PM EDT [facility] BUN 24.7(H) 8.0 - 23.0 mg/dL 11/12/2024 5:51 PM EDT [facility] Creatinine 1.06(H) 0.57 - 1.00 mg/dL 11/12/2024 5:51 PM EDT [facility] Sodium 139 136 - 145 mmol/L 11/12/2024 5:51 PM EDT [facility] Potassium 4.4 3.5 - 5.2 mmol/L 11/12/2024 5:51 PM EDT [facility] Chloride 101 98 - 107 mmol/L 11/12/2024 5:51 PM EDT [facility] CO2 27.9 22.0 - 29.0 mmol/L 11/12/2024 5:51 PM EDT [facility] Calcium 9.1 8.6 - 10.5 mg/dL 11/12/2024 5:51 PM EDT [facility] Total Protein 6.4 6.0 - 8.5 g/dL 11/12/2024 5:51 PM EDT [facility] Albumin 4.0 3.5 - 5.2 g/dL 11/12/2024 5:51 PM EDT [facility] ALT (SGPT) 15 1 - 33 U/L 11/12/2024 5:51 PM EDT [facility] AST (SGOT) 27 1 - 32 U/L 11/12/2024 5:51 PM EDT [facility] Alkaline Phosphatase 113 39 - 117 U/L 11/12/2024 5:51 PM EDT [facility] Total Bilirubin 0.2 0.0 - 1.2 mg/dL 11/12/2024 5:51 PM EDT [facility] Globulin 2.4 gm/dL 11/12/2024 5:51 PM EDT [facility] Comment:Calculated Result A/G Ratio 1.7 g/dL 11/12/2024 5:51 PM EDT [facility] BUN/Creatinine Ratio 23.3 7.0 - 25.0 11/12/2024 5:51 PM EDT [facility] Anion Gap 10.1 5.0 - 15.0 mmol/L 11/12/2024 5:51 PM EDT [facility] eGFR 58.1(L) >60.0 mL/min/1.7 3 11/12/2024 5:51 PM EDT [facility] Blood Venipuncture / Unknown 11/12/2024 5:17 PM EDT 11/12/2024 5:17 PM EDT [facility] - 11/12/2024 5:51 PM EDT [...] MD LAB BLOOD ORDERABLES Fin al Result [facility]
[address] [place] [address], * Mammo screening digital tomosynthesis bilateral (04/06/2015 [...] in patients with adenosis or dense breasts. [employer] For breast cancer detection in asymptomatic women- Age ACR Recommendations 35-40 Baseline Mammogram 40-49 Annual or Biannual Mammogram 50+ Annual Mammogram Annual physical and frequent self breast examination. Patient has been entered into an automatic reminder system. Addendum Reading Radiologist- DIYA GOEL Addendum Releasing Radiologist- DIYA GOEL Addendum Released Date Time- 04/19/15 1550 Addendum City Designer- Jaylen BILATERAL SCREENING MAMMOGRAM WITH TOMOSYNTHESIS PNL- [...] in patients with adenosis or dense breasts. [employer] For breast cancer detection in asymptomatic women- Age ACR Recommendations 35-40 Baseline Mammogram 40-49 Annual or Biannual Mammogram 50+ Annual Mammogram Annual physical and frequent self breast examination. Patient has been entered into an automatic reminder system. Reading Akash GOEL Releasing Akash GOEL Released Date Time- 04/06/15 1055 City Designer- Dave Procedure Note Diya Goel Jr., MD [...] in patients with adenosis or dense breasts. [employer]UID[employer] For breast cancer detection in asymptomatic women- Age ACR Recommendations 35-40 Baseline Mammogram 40-49 Annual or Biannual Mammogram 50+ Annual Mammogram Annual physical and frequent self breast examination. Patient has been entered into an automatic reminder system. Addendum Reading Akash GOEL Addendum Releasing Akash GOEL Addendum Released Date Time- 04/19/15 1550 Addendum City Designer- Jaylen BILATERAL SCREENING MAMMOGRAM WITH TOMOSYNTHESIS PNL- [...] in patients with adenosis or dense breasts. [employer] For breast cancer detection in asymptomatic women- Age ACR Recommendations 35-40 Baseline Mammogram 40-49 Annual or Biannual Mammogram 50+ Annual Mammogram Annual physical and frequent self breast examination. Patient has been entered into an automatic reminder system. Reading Radiologist- DIYA GOEL Releasing Radiologist- DIYA GOEL Released Date Time- 04/06/15 6019 Fernando Acosta us Gregorio Mcgee MD [facility] [place] Edite d Result - Final from Last 3 Months or Most Recently Relevant to Health Maintenance Insurance [facility] MEDICARE A & B Advance Directives * CPR (Attempt to Resuscitate) (Latest Code Status on File) Date Activated Date Inactivated Comments 11/13/2024 2:01 AM 11/14/2024 6:43 PM Question Answer Comments Code Status (Patient has no pulse and is not breathing): CPR (Attempt to Resuscitate) Medical Interventions (Patie nt has pulse or is breathing): Full Support Care Teams Quartz Mounter Relationship Specialty Start Date End Date Sandra Orozco APRN [address] [facility] [address] [facility] [address] [place] [address] PCP - General Internal Medicine 05/11/24
--- OUTSIDE RECORDS SUMMARY | 2025-01-18 11:59 | XMS_ITS | Data Portability ---
Author Organization [facility] NASEEM Chandler [place] [facility] Address [address] [place] [address] Care Team Providers Care Telephone Sales Representative Name Role Phone GLADIS DELCID Primary Care Provider Assessment Encounter Date Assessment Date Assessment LastModified by Organization Details LastModified Time 06/25/2024 06/25/2024 Plan: I have personally reviewed this patient's MOHSEN report as per [place] medical board guidelines and it was found [...] reviewed this patient's MOHSEN report as per [facility] board guidelines and it was found to [...] reviewed this patient's MOHSEN report as per [place] medical board guidelines and it was found [...] reviewed this patient's MOHSEN report as per [place] medical board guidelines and it was found [...] mg-acetam inophen 325 mg tablet 2024 025 [facility], [address] [place] [address] [place], [id number], 12/22/2024 11:18:36 hydrocodo ne 7.5 mg-acetam inophen 325 mg tablet 2024 025 [facility], [address] [place] [address], [place], [id number], 12/22/2024 11:18:36 hydrocodo ne 5 mg-acetam inophen 325 mg tablet 2024 025 [facility], [address] [place] [address], [place], [phone], 10/27/2024 11:27:38 hydrocodo ne 5 mg-acetam inophen 325 mg tablet 2024 025 [facility], [address] [place] [address], [place], [phone], 10/27/2024 11:27:38 hydrocodo ne 5 mg-acetam inophen 325 mg tablet 2024 025 [facility], [address] [place] [address] [place], [phone], 08/25/2024 11:08:17 hydrocodo ne 5 mg-acetam inophen 325 mg tablet 2024 025 [facility], [address], [phone], 08/25/2024 11:08:18 hydrocodo ne 5 mg-acetam inophen 325 mg tablet 2024 025 [facility] 591, [address], [id number], 06/25/2024 11:29:57 hydrocodo ne 5 mg-acetam inophen 325 mg tablet 2024 025 [facility] 591, [address], [address], 06/25/2024 11:29:56 Patient TargetsNo targets recorded. Patient InstructionsNo instructions recorded. Reason for Referral None Reported. Results Created Date Observation Date Name Description Value Unit Range Abnormal Flag Note LastModifiedBy Organization Detail LastModifiedTime 08/26/1908/27/2024 HIGH RISK DRUG PANEL gabapentin NEGATI VE NG/mL <1000 normal Not Available [facility] [address] [place], [address], 08/30/2024 17:49:46 08/26/19 25 08/27/2024 HIGH RISK DRUG PANEL pregabalin, qt ur NEGATI VE NG/mL <1000 normal Not Available [facility] [address] [place], [address], 08/30/2024 17:49:46 08/26/19 25 08/27/2024 HIGH RISK DRUG PANEL desmethyltra madol NEGATI VE NG/mL <100 normal Not Available [facility] [address] [place], [address], 08/30/2024 17:49:46 08/26/19 25 08/27/2024 HIGH RISK DRUG PANEL tramadol NEGATI VE NG/mL <100 normal Not Available [facility] [address] [place] [address], [address], 08/30/2024 17:49:46 08/26/19 25 08/27/2024 HIGH RISK DRUG PANEL tapentadol NEGATI VE NG/mL <50 normal Not Available [facility] [address] [place] [address], [address], 08/30/2024 17:49:46 08/26/19 25 08/27/2024 HIGH RISK DRUG PANEL nortapentado l NEGATI VE NG/mL <50 normal Not Available [facility] [address] [place] [address], [address], 08/30/2024 17:49:46 08/26/19 25 08/27/2024 HIGH RISK DRUG PANEL ethyl glucuronide NEGATI VE NG/mL <500 normal Not Available [facility] [address] [place] [address], [address], 08/30/2024 17:49:46 08/26/19 25 08/27/2024 HIGH RISK DRUG PANEL ethyl sulfate NEGATI VE NG/mL <100 normal Not Available [facility] [address] [place] [address], [address], 08/30/2024 17:49:46 08/26/19 25 08/27/2024 HIGH RISK DRUG PANEL buprenorphin e NEGATI VE NG/mL <2 normal Not Available [facility] [address] [place] [address], [address], 08/30/2024 17:49:46 08/26/19 25 08/27/2024 HIGH RISK DRUG PANEL norbuprenorp shadi NEGATI VE NG/mL <2 normal Not Available [facility] [address] [place] [address], [address], 08/30/2024 17:49:46 08/26/19 25 08/27/2024 HIGH RISK DRUG PANEL naloxone NEGATI VE NG/mL <2 normal Not Available [facility] [address] [place] [address], [address], 08/30/2024 17:49:46 08/26/19 25 08/30/2024 HIGH RISK DRUG PANEL amphetamines NEGATI VE NG/mL <500 normal Not Available [facility] [address] [place] [address], [address], 08/30/2024 17:49:46 08/26/19 25 08/30/2024 HIGH RISK DRUG PANEL barbiturates NEGATI VE NG/mL <300 normal Not Available [facility] [address] [place] [address], [address], 08/30/2024 17:49:46 08/26/19 25 08/30/2024 HIGH RISK DRUG PANEL benzodiazepi rufus NEGATI VE NG/mL <100 normal Not Available [facility] [address] [place] [address], [address], 08/30/2024 17:49:46 08/26/19 25 08/30/2024 HIGH RISK DRUG PANEL marijuana metabolite NEGATI VE NG/mL <20 normal Not Available [facility] [address] [place] [address], [address], 08/30/2024 17:49:46 08/26/19 25 08/30/2024 HIGH RISK DRUG PANEL cocaine metabolite NEGATI VE NG/mL <150 normal Not Available [facility] [address] [place] [address], [address], 08/30/2024 17:49:46 08/26/19 25 08/30/2024 HIGH RISK DRUG PANEL methadone metabolite NEGATI VE NG/mL <100 normal Not Available [facility] [address] [place] [address], [address], 08/30/2024 17:49:46 08/26/19 25 08/30/2024 HIGH RISK DRUG PANEL opiates POSITI VE NG/mL <100 abnormal Not Available [facility] [address] [place], [address], 08/30/2024 17:49:46 08/26/19 25 08/30/2024 HIGH RISK DRUG PANEL codeine NEGATI VE NG/mL <50 normal Not Available [facility] [address] [place] [address], [address], 08/30/2024 17:49:46 08/26/19 25 08/30/2024 HIGH RISK DRUG PANEL hydrocodone 3424 NG/mL <50 high Not Available [facility] [address] [place] [address], [address], 08/30/2024 17:49:46 08/26/19 25 08/30/2024 HIGH RISK DRUG PANEL hydromorphon e 186 NG/mL <50 high Not Available [facility] [address] [place] [address], [address], 08/30/2024 17:49:46 08/26/19 25 08/30/2024 HIGH RISK DRUG PANEL morphine NEGATI VE NG/mL <50 normal Not Available [facility] [address] [place] [address], [address], 08/30/2024 17:49:46 08/26/19 25 08/30/2024 HIGH RISK DRUG PANEL norhydrocodo ne 1612 NG/mL <50 high Not Available [facility] [address] [place] [address], [address], 08/30/2024 17:49:46 08/26/19 25 08/30/2024 HIGH RISK DRUG PANEL oxycodone NEGATI VE NG/mL <100 normal Not Available [facility] [address] [place] [address], [address], 08/30/2024 17:49:46 08/26/19 25 08/30/2024 HIGH RISK DRUG PANEL phencyclidin e NEGATI VE NG/mL <25 normal Not Available [facility] [address] [place] [address], [address], 08/30/2024 17:49:46 08/26/19 25 08/30/2024 HIGH RISK DRUG PANEL creatinine 226.2 mg/dL > or = 20.0 normal Not Available [facility] [address] [place], [address], 08/30/2024 17:49:46 08/26/19 25 08/30/2024 HIGH RISK DRUG PANEL specific gravity 1.012 > or = 1.003 normal Not Available [facility] [address] [place], [address], 08/30/2024 17:49:46 08/26/1908/30/2024 HIGH RISK DRUG PANEL pH 5.7 4.5-9. 0 normal Not Available [facility] [address] [place], [address], 08/30/2024 17:49:46 08/26/19 25 08/30/2024 HIGH RISK DRUG PANEL oxidant NEGATI VE mcg/m L <200 normal Not Available [facility] [address] [place], [address], 08/30/2024 17:49:46 08/26/1908/30/2024 HIGH RISK DRUG PANEL [...] condi tions . Opiat es Notes : Whatley codon e, Norhy droco done, Whatley morph one detec abbie is consi stent with the use of the drug Whatley codon e. Whatley morph one detec abbie is consi stent with the use of the drug Whatley morph one. Whatley morph one can be a presc ribed drug and is also a metab olite of Whatley codon e. Confi rmati on testi ng Perfo rmed at: [facility] [address] [place] [address] Labor atory Direc tor: ZEUS DALTON George PEGUERO S CLIA: [id number] LDT Notes : Confi rmati on tests [...] M-F, 8am to 10pm EST Not Available [facility] [address] [place] [address], [address], 08/30/2024 17:49:46 08/26/19 25 08/30/2024 HIGH RISK DRUG PANEL fentanyl NEGATI VE NG/mL <0.5 normal Not Available [facility] [address] [place] [address], [address], 08/30/2024 17:49:46 08/26/19 25 08/30/2024 HIGH RISK DRUG PANEL heroin metabolite, qt ur NEGATI VE NG/mL <10 normal Not Available [facility] [address] [place] [address], [address], 08/30/2024 17:49:46 04/14/19 25 04/14/2024 XR, lumbo sacra l spine , 2 or 3 view, bendi ng only [facility] [address] [place] [address] [place] [address] Kirstieshashi morse Name: MARTHA morse : [phone] [...] Edin Luke MD on 04/14/19 12:15 PM [facility] [address] [place], [address], 06/23/2024 15:57:27 Result Notes None recorded. Problems Name Problem SNOMED Code Status Onset Date Resolution Date Notes Provider Name and Address Organization Details Recorded Time Low back pain 364446901 Active Status: Active Not Available [facility] 7 06:47:46 Disorder of bone and articular cartilage 182506543 Active 2015 Status: Active Not Available [facility] 6 05:37:02 Lumbosacr al radiculop athy 0407014 Active 2015 From Automated Load;Provi boris: Lux Fernández; atus: Active Not Available [facility] 7 08:30:56 Problem Notes None recorded. Procedures Surgical History Date Name Laterality Status Provider Name and Address Organization Details Recorded Time 04/10/19 Date of Last Mammogram completed Amira Hogan [facility] 05/04/2024 14:53:23 tonsillectomy completed [facility] 06/29/2021 11:07:23 partial hysterectomy completed [facility] 06/29/2021 11:07:41 cholecystectomy completed [facility] 06/29/2021 11:07:49 Unlisted px accessory sinus completed Kailey Castellanodie [facility] 06/29/2021 11:08:12 Unlisted px phrnx adnd/tnsl completed Kailey Castellanodie [facility] 06/29/2021 11:08:24 procedure on vein completed Kailey Castellanodie [facility] 06/29/2021 11:08:40 Appendectomy completed Amira Samira [facility] 05/04/2024 14:53:09 Imaging Results [...] 10:08 :22 AM; Not Available [facility] 6 12:52:49 594644 Celebrex medicatio n Not available Not available Not available 02/03/20162011 06189 7 RxNorm Comme nt: Creat ed By: Storm HigginsC reate d Date: 2011 10:08 :34 AM; Not Available [facility] 6 05:46:24 733642 Levaquin medicatio n Not available Not available Not available 02/03/20162011 08900 2 RxNorm Comme nt: Creat ed By: Storm HigginsC reate d Date: 2011 10:07 :37 AM; Not Available [facility] 6 08:06:37 328880 Macrobid medicatio n Not available Not available Not available 02/03/20162011 01366 1 RxNorm Comme nt: Creat ed By: Storm HigginsC reate d Date: 2011 10:08 :04 AM; Not Available [facility] 6 08:06:37 630075 Product containin g penicilli n (product) medicatio n Not available Not available Not available 06/29/2021 14534 8001 SNOMED Kailey Valerie null, [facility] 2 11:02:22 [id number] gabapenti n medicatio n Not available Not available Not available 06/29/2021 95419 RxNorm Kailey Valerie null, [facility] 2 11:02:39 997210 leflunomi de medicatio n Not available Not available Not available 06/29/2021 01089 RxNorm Kailey Valerie [facility] 2 11:02:54 691919 Naprosyn medicatio n Not available Not available Not available 06/29/2021 2 [facility] 11:03[facility]06 122006 dextromet horphan hydrobrom mónica medicatio n Not available Not available Not available 05/04/2024 89031 0 RxNorm Amira Hogan [facility] 5 15:09:56 355325 Omnicef medicatio n Not available Not available Not available 05/04/2024 91426 RxNorm Amira Hogan [facility] 5 15:10:19 404732 nortripty line medicatio n Not available Not available Not available 05/04/2024 7531 RxNorm Amira Hogan [facility] 5 15:10:37 860222 Lyrica medicatio n Not available Not available Not available 05/04/2024 33526 1 RxNorm Amira Hogan [facility] 5 15:10:45 Medications Name Sig Start [...] t Available azithromy catalina 250 mg tablet TAKE 2 TABLETS BY MOUTH ON DAY 1, THEN TAKE 1 TABLET DAILY ON DAYS 2 THROUGH 5 active Not Available Not Available No t Available pravastat in 40 mg tablet Daily [...] mg tablet TAKE 1 TABLET BY MOUTH 2 TIMES A DAY FOR 10 DAYS active Not Available Not [...] mg tablet TAKE 1 TABLET BY MOUTH 2 TO 3 times DAILY active Not Available Not Available No t Available cephalexi n 500 mg capsule TAKE [...] Available Not Available cefdinir 300 mg capsule TAKE 1 CAPSULE BY MOUTH 2 TIMES A DAY FOR 10 DAYS active Not Available Not Available No t Available dicyclomi ne 10 mg capsule active [...] Updated DateTime 5 152.4 cm 35.3 kg/m2 05879.4 3 g 69 /min 86 % 86 % 110/50 mm[Hg] Amira Hogan [facility] 5 15:03:21 Date Recorded Body height Body mass index (BMI) Body weight Pain severity - 0-10 verbal numeric rating [Score] - Reported Oxygen saturation Oxygen saturation in Arterial blood by Pulse oximetry Inhaled oxygen flow rate Provider Name and Address Organization Details Last Updated DateTime 5 152.4 cm 35.7 kg/m2 11437.4 g 8 94 % 94 % 2 L/min [facility] 5 11:11:53 Date Recorded Body height Body mass index (BMI) Body weight Pain severity - 0-10 verbal numeric rating [Score] - Reported Oxygen saturation Oxygen saturation in Arterial blood by Pulse oximetry Inhaled oxygen flow rate Heart rate Systolic And Diastolic Provider Name and Address Organization Details Last Updated DateTime 5 152.4 cm 34.8 kg/m2 31741.4 4 g 9 94 % 94 % 1 L/min 79 /min 122/64 mm[Hg] [facility] 5 10:45:12 Date Recorded Body height Body mass index (BMI) Body weight Pain severity - 0-10 verbal numeric rating [Score] - Reported Oxygen saturation Oxygen saturation in Arterial blood by Pulse oximetry Heart rate Systolic And Diastolic Provider Name and Address Organization Details Last Updated DateTime 5 152.4 cm 34.8 kg/m2 64174.4 4 g 6 93 % 93 % 82 /min 122/66 mm[Hg] Malena Caikarie [facility] 5 10:51:07 Date Recorded Body height Body mass index (BMI) Body weight Pain severity - 0-10 verbal numeric rating [Score] - Reported Oxygen saturation Oxygen saturation in Arterial blood by Pulse oximetry Inhaled oxygen flow rate Heart rate Systolic And Diastolic Provider Name and Address Organization Details Last Updated DateTime 5 152.4 cm 35 kg/m2 21649.0 3 g 9 90 % 90 % 2 L/min 73.02 /min 118/64 mm[Hg] [facility] 10:50:52 Social History Question Answer Notes LastModified by Organizat ion Details LastModified Time Tobacco Smoking Status Former Smoker Blanca Gannon [facility] 11/19/2023 14:27:06 What Was The Date [...] 06/29/2021 Are you currently employed? No disabled [place] [address] Information not available 05/04/2024 Mental Status None recorded. Family History Relationship Description Onset Age of this Age Resolved Age Notes LastModified by Organization Details LastModified Time Unspecified Relation Malignant neoplastic disease Not available 04/12 14:49:35 Unspecified Relation Diabetes mellitus [email or web address] Not available 04/12 14:49:35 Mother Familial cancer of breast [email or web address] Not available 04/12 14:49:35 Mother Malignant neoplasm of pancreas [email or web address] Not available 2024 14:51:13 Mother Chronic obstructive pulmonary disease [email or web address] Not available 2024 14:51:40 Father Hypercholest erolemia [email or web address] Not available 2024 14:51:58 Medical History Condition Response Other N Thyroid Disease N Kidney Stones N Breast Cancer N Blood Transfusion N Emphysema Y Colon/Rectal Disorders N Sexually Transmitted Disease N Depression Y COPD Y Glaucoma N Pneumonia Y Breast Problem Y Measles Y Anxiety Disorder Y Varicose Veins Y Attempted Suicide N Arthritis Y Hearing Loss Y Blood Clot Y Cancer N Stroke Y Crohn's Disease N Radiation Therapy N Blood Thinners Y High Cholesterol N Neurologic Disorder N Liver Disease N Headaches N Fibromyalgia Y Kidney Disease N Endocrine Disorder N Heart Problems Y Skin Problems Y Osteoporosis/Osteopenia Y Meningitis N Ulcers N Heart Attack (IN) N Mental Illness Y Ovarian Cancer N [...] ICD10 Code Diagnosis IMO Codes Diagnosis Note [id number] LUX FERNÁNDEZ MD [facility] [address] [place] [address] 0 01/18/2020 12:49:41 01/18/2020 15:14:53 Lumbar radiculopathy 606522511 M54.16 Time spent reviewing images, discussing the diagnosis and coordinati ng care: 30min [id number] DILIP BILL PA-C [facility] [address] 0 06/29/2021 10:15:51 07/04/2021 09:16:52 Lumbar radiculopathy 310326543 M54.16 [id number] GLENDA TUTTLE PA-C [facility] [address] [place] [address] 11/20/2021 10:07:54 11/27/2021 14:55:22 Lumbar spondylosis 314308752 M47.896 [id number] LUX FERNÁNDEZ MD SURGERY SCHEDULE [address] [place] [address] 02/09/2022 09:11:14 02/09/2022 10:30:20 [id number] LUX FERNÁNDEZ MD [facility] [address] [place] [address] 02/14/2022 13:50:04 02/26/2022 16:15:54 [id number] LUX FERNÁNDEZ MD [facility]UROSURG [facility] [address] [place] [address] 03/15/2022 09:39:55 03/16/2022 16:35:55 Postoperative care 566456802 Z48.89 [id number] JUANITA VALDERRAMA APRN [facility] [address] [place] [address] 10/03/2023 12:25:46 10/04/2023 04:49:26 Lumbar radiculopathy 940612013 M54.16 Compressio n fracture of lumbar spine 005542781 M48.56XA Impairment of balance 38 0585941 R26.89 Poor manual dexterity 30 3662458 R29.898 [id number] LIA MORAES MD SURGERY SCHEDULE [address] [place] [address] 11/01/2023 13:01:26 11/05/2023 10:00:09 [id number] RAOUL KINSEY MD [facility] CLOSED [address] [place] [address] 1 11/19/2023 13:39:01 11/19/2023 15:00:53 Chronic low back pain 174641436 M54.50 Degenerati on of lumbar intervertebral disc 19890810 M51.36 Spinal hilda nosis of lumbar region 51513474 M48.062 [id number] RAOUL KINSEY MD [facility] CLOSED [address] [place] [address] 1 11/26/2023 12:42:31 11/26/2023 12:56:48 Chronic low back pain 102577256 M54.50 Degenerati on of lumbar intervertebral disc 54621507 M51.36 Spinal hilda nosis of lumbar region 52213216 M48.062 [id number] BIANCA ESPAÑA PA-C NE[facility]OSUR[facility] [address] [place] [address] 11/26/2023 13:56:01 11/27/2023 04:57:02 Postoperative visit 785800009 Z48.89 [id number] RAOUL KINSEY MD [facility] CLOSED [address] [place] [address] 12/24/2023 12:33:05 12/24/2023 13:02:45 Chronic low back pain 666833175 M54.50 The prescripti on to be filled on 12/27/23 was cancelled. The prescripti on sent to [facility] was cancelled. Degenerati on of lumbar intervertebral disc 52977460 M51.362 Spinal hilda nosis of lumbar region 87996912 M48.062 [id number] BIANCA ESPAÑA PA-C [facility] [address] [facility] [place] [address] 0 01/10/2024 09:40:04 01/11/2024 04:31:11 Lumbar radiculopathy 149445754 M54.16 [id number] RAOUL KINSEY MD [facility] CLOSED [address] [place] [address] 02/20/2024 12:35:26 02/20/2024 12:58:34 Chronic low back pain 349442972 M54.50 Degenerati on of lumbar intervertebral disc 30339063 M51.362 Spinal hilda nosis of lumbar region 37600615 M48.062 [id number] BIANCA ESPAÑA PA-C [facility] [address] [address] [place] [address] 04/14/2024 13:13:45 04/15/2024 08:29:03 Lumbar radiculopathy 618773399 M54.16 [id number] RAOUL KINSEY MD [facility] CLOSED [address] [place] [address] 04/16/2024 11:04:40 04/16/2024 11:22:08 Chronic low back pain 844615214 M54.50 Degenerati on of lumbar intervertebral disc 78039187 M51.362 Spinal hilda nosis of lumbar region 12689374 M48.062 [id number] NIHARIKA [place] [address] [place] [address] 1 05/04/2024 14:30:28 05/10/2024 04:08:11 Inversion of right nipple 2007564715 [id number] N64.59 Patient and I reviewed her medical [...] an as-needed basis. Decreased capillary filling time 37584458 R94.39 [id number] RAOUL KINSEY MD [facility] CLOSED [address] [place] [address] 1 06/25/2024 11:02:23 06/25/2024 11:26:16 Chronic low back pain 088078973 M54.50 Degenerati on of lumbar intervertebral disc 16744187 M51.362 Spinal hilda nosis of lumbar region 74221329 M48.062 [id number] RAOUL KINSEY MD PAIN MEDICINE [address] [place] [address] 1 08/25/2024 10:26:44 08/25/2024 10:55:10 Chronic low back pain 855525487 M54.50 Degenerati on of lumbar intervertebral disc 61233062 M51.362 Spinal hilda nosis of lumbar region 41884163 M48.062 [id number] RAOUL KINSEY MD PAIN MEDICINE [address] [place] [address] 1 10/27/2024 10:42:37 10/27/2024 11:09:07 Chronic low back pain 374168849 M54.50 Degenerati on of lumbar intervertebral disc 98326261 M51.362 Spinal hilda nosis of lumbar region 52021171 M48.062 [id number] RAOUL KINSEY MD PAIN MEDICINE [address] [place] [address] 1 12/22/2024 10:37:41 12/22/2024 10:59:26 Chronic low back pain 861763293 M54.50 Degenerati on of lumbar intervertebral disc 27076060 M51.362 Spinal hilda nosis of lumbar region 40370036 M48.062 Health Concerns Section Related Observation LastModified by Organization Detai ls LastModified Time None Recorded Concern Status LastModified by Organization Details LastModified Time None Recorded Advance Directives Directive None Recorded Payers Insurance Date Sequence Insurance Name Policy Number Policy Sanchez Covered Member ID Sanchez Member ID Guarantor Name 12/19/2024 1 [place] Casi Cruz [id number] Casi Cruz 10/15/2023 2 [employer]ED [employer]ANCE - [employer] (MEDICARE SUPPLEMENT) Casi Cruz [id number] Casi Cruz Notes Date Note Type Note [...] past. Lifetime risk = 3.85% by Raisa, elisabeth. NIHARIKA BOCANEGRA APRN [address] [place], [address], [facility] 05/09/2024 18:34:17 06/25/2024 text/html The pt complains [...] 6 months ago. CBD-Denied. 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 She states she does take an dyse-vvi-qwuscpu stool softener/laxative. She does not want to use anything regularly. The pt is sleeping approximately 2-3 hours per night. The pt is not working. The pt reports that she has not fallen since her last ov. The pt ambulates without an AD. The pt is accompanied by a friend at today s visit.Etoh-Denied. Tobacco-Denied. CBD-Denied. RAOUL KINSEY MD [address] [place] [address], [phone], [facility] 08/25/2024 11:07:39 10/27/2024 text/html The pt complains [...] bladder-leaks. She states she does take an pgke-xwg-ucwdcxq stool softener/laxative. She states she has been [...] s visit.Etoh-Denied. Tobacco-Denied. CBD-Denied. RAOUL KINSEY MD [address] [place] [address], [phone], [facility] 10/27/2024 11:51:05 12/22/2024 text/html The pt complains [...] bladder-leaks. She states she does take an mief-bqi-cnpsgxf stool softener/laxative. She states she has been [...] s visit.Etoh-Denied. Tobacco-Denied. CBD-Denied. RAOUL KINSEY MD [facility] [place], [address], [facility] 12/22/2024 13:29:43 OBGyn Episode No OBEpisode recorded.
--- OUTSIDE RECORDS SUMMARY | 2025-01-18 11:59 | XMS_ITS | Encounter Summary ---
[facility] Address [address] [place] [address] Care Team Providers Care Enrollment Management Director Name Role Phone Sandra Orozco APRN Primary Care Provider [phone] Encounter Details Date Type Department Care Team (Latest Contact Info) Description 11/26/2024 Travel Social History Tobacco Use Types Packs/Day Years Used Date Smoking Tobacco: Former Cigarettes 2 45 Q uit: 05/10/2023 Smokeless Tobacco: Never Comments:Liked to smoke Alcohol Use Standard Drinks/Week Comments Not Currently 0 (1 standard drink = 0.6 oz pur e alcohol) former [facility] Utilities Answer Date Recorded In the past 12 months has [employer], gas, oil, or water company threatened [...] heating? Not very hard 11/13/2024 [facility] of Occupat ional Health - Occupational Stress [...] 11:00 AM EST Office Visit [facility] [place] [facility] [address] [facility] [address], [place] [address] Dina [place] APRN [address] [facility] [address], [place] [address] documented as of this encounter Visit Diagnoses Not on filedocumented in this encounter Care Teams Enrollment Management Director Relationship Specialty Start Date End Date Sandra Orozco APRN [address] [place] [address] [address] PCP - General Internal Medicine 05/11/24 documented as of this encounter
--- OUTSIDE RECORDS SUMMARY | 2025-01-18 11:59 | XMS_ITS | Encounter Summary ---
Author Organization [facility] ystem Address [address] [place] [address] Care Team Providers Care Bowling Alley Floors Installer Name Role Phone Sandra Orozco APRN Primary Care Provider Encounter Details Date Type Department Care Team (Late st Contact Info) Description 11/30/2024 Readmission Management [facility] [address] [place] [address] Christiano Gresham, RN Social History Tobacco Use Types Packs/Day Years Used Date Smoking Tobacco: Former Cigarettes 2 45 Q uit: 05/10/2023 Smokeless Tobacco: Never Comments:Liked to smoke Alcohol Use Standard Drinks/Week Comments Not Currently 0 (1 standard drink = 0.6 oz pur e alcohol) former [facility] Utilities Answer Date Recorded In the past 12 months has [employer], gas, oil, or water [employer] threatened to shut off services in your [...] care, and heating? Not very hard 11/13/2024 [facility] - [facility]ational Stress Questionnaire Answer Date [...] Flowsheet Row [facility]es [facility] Does the patient have one of the following disease processes/diagnoses(primary or secondary)? CHF CHF Week 1 attempt successful? No Unsuccessful attempts Attempt 2 Christiano Romero - Registered Nurse documented in this encounter Plan of Treatment Upcoming Encounters Date Type Department Care Team (Late st Contact Info) Description 02/16/2025 11:00 AM EST Office Visit [facility] C[facility]IOLOGY [address] [facility] [address] [place] [address] Dina [place] APRN [address] [facility] [address] [place] [address] documented as of this encounter Visit Diagnoses Not on filedocumented in this encounter Care Teams Bowling Alley Floors Installer Relationship Specialty Start Date End Date Sandra Orozco APRN [address] [address] PCP - General Internal Medicine 05/11/24 documented as of this encounter
--- OUTSIDE RECORDS SUMMARY | 2025-01-18 12:00 | XMS_ITS | Encounter Summary ---
Author Organization [facility] ystem Address [address] [place] [address] Care Team Providers Care Recreation Worker Name Role Phone Sandra Orozco APRN Primary Care Provider [phone] Encounter Details Date Type Department Care Team (Late st Contact Info) Description 11/23/2024 Readmission Management [facility] [address] [place] [address] Eloise Farrar RN Social History Tobacco Use Types Packs/Day Years Used Date Smoking Tobacco: Former Cigarettes Smokeless Tobacco: Never Comments:Smoked since 1973 Alcohol Use Standard Drinks/Week Comments Not Currently 0 (1 standard drink = 0.6 oz pur e alcohol) former [facility] Utilities Answer Date Recorded In the past 12 months has [employer], gas, oil, or water [employer] threatened to shut off services in your [...] care, and heating? Not very hard 11/13/2024 [facility] of Occupat ional Health - Occupational Stress [...] GED or equivalent No 11/13/2024 Preferred Language Azerbaijani 11/13/2024 PHQ-2 Answer Date Recorded Patient Health [...] CHF Week 1 Survey Flowsheet Row Responses [facility] patient discharged from? [place] Does the patient have one of the following disease processes/diagnoses(primary or secondary)? CHF CHF Week 1 attempt successful? No Unsuccessful attempts Attempt 1 ELOISE Cruz - Registered Nurse documented in this encounter Plan of Treatment Upcoming Encounters Date Type Department Care Team (Late st Contact Info) Description 02/16/2025 11:00 AM EST Office Visit [facility] [address] [facility] [address] [place] [address] Dina [place] APRN 3000 [facility] [address] [place] [address] documented as of this encounter Visit Diagnoses Not on filedocumented in this encounter Care Teams Recreation Worker Relationship Specialty Start Date End Date Sandra Orozco APRN 12[address] [facility] [address] [facility] [address] [place] [address] PCP - General Internal Medicine 05/11/24 documented as of this encounter
--- OUTSIDE RECORDS SUMMARY | 2025-01-18 12:00 | XMS_ITS | Continuity of Care Document ---
Author Organization [facility], PAIN MEDICINE [address] [place] [address] Care Team Providers Care Director Of Product Design Name Role Phone GLADIS DELCID Primary Care [...] 325 mg tablet 2024 025 [facility], [address] [place], [id number], 12/22/2024 11:18:36 hydrocodo ne 7.5 mg-acetam inophen 325 mg tablet 2024 025 [facility], [address] [address] [place], [id number], 12/22/2024 11:18:36 Patient TargetsNo targets recorded. Patient InstructionsNo instructions recorded. Reason for Referral None Reported. 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 Procedures Surgical History Date Name Laterality Status Provider Name and Address Organization Details Recorded Time 04/10/19 25 Date of Last Mammogram completed Amira Hogan [facility] 05/04/2024 14:53:23 tonsillectomy completed [facility] Valerie [facility] 06/29/2021 11:07:23 partial hysterectomy completed Kailey Valerie BOUCHER [facility] 06/29/2021 11:07:41 cholecystectomy completed Kailey BOUCHER [facility] 06/29/2021 11:07:49 Unlisted px accessory sinus completed Kailey BOUCHER [facility] 06/29/2021 11:08:12 Unlisted px phrnx adnd/tnsl completed Kailey BOUCHER [facility] 06/29/2021 11:08:24 procedure on vein completed [facility] Valerie Arroyo [facility] 06/29/2021 11:08:40 Appendectomy completed Amiradary Hogan [facility] 05/04/2024 14:53:09 Imaging Results None recorded. Procedure Notes None recorded. Medical Equipment None Reported. Allergies Allergen ID Allergen Name Allergen Category Reaction Reaction Severity Criticality Documentation Date Start Date Code Code System Note Provider Name and Address Organization Details Recorded Time 897346 Cipro medicatio n Not available Not available Not available 02/02/20162011 12698 3 RxNorm Comme nt: Creat ed By: Storm Bonner;C reate d Date: 2011 10:08 :22 AM; Not Available [facility] 6 12:52:49 611455 Celebrex medicatio n Not available Not available Not available 02/03/20162011 61224 7 RxNorm Comme nt: Creat ed By: Storm Bonner;C reate d Date: 2011 10:08 :34 AM; Not Available [facility] 6 05:46:24 476553 Levaquin medicatio n Not available Not available Not available 02/03/20162011 36728 2 RxNorm Comme nt: Creat ed By: Storm Bonner;C reate d Date: 2011 10:07 :37 AM; Not Available [facility] 6 08:06:37 273296 Macrobid medicatio n Not available Not available Not available 02/03/20162011 54835 1 RxNorm Comme nt: Creat ed By: Storm Bonner;C reate d Date: 2011 10:08 :04 AM; Not Available [facility] 6 08:06:37 644930 Product containin g penicilli n (product) medicatio n Not available Not available Not available 06/29/2021 27351 8001 SNOMED Kailey Valerie null, [facility] 2 11:02:22 662381 gabapenti n medicatio n Not available Not available Not available 06/29/2021 76807 RxNorm Kailey Valerie null, [facility] 2 11:02:39 019343 leflunomi de medicatio n Not available Not available Not available 06/29/2021 60588 RxNorm Kailey Valerie null, [facility] 2 11:02:54 208473 Naprosyn medicatio n Not available Not available Not available 06/29/202120291 2 RxNorm Kailey Valerie [facility] 2 11:03:06 532426 dextromet horphan hydrobrom mónica medicatio n Not available Not available Not available 05/04/2024 94554 0 RxNorm Amira Hogan [facility] 5 15:09:56 941095 Omnicef medicatio n Not available Not available Not available 05/04/2024 84998 RxNorm Amira Hogan [facility] 5 15:10:19 441364 nortripty line medicatio n Not available Not available Not available 05/04/2024 7531 RxNorm Amira Hogan [facility] 5 15:10:37 994369 Lyrica medicatio n Not available Not available Not available 05/04/2024 04996 1 RxNorm Amira Hogan [facility] 5 15:10:45 Medications Name Sig Start [...] quency: daily;Me dication Descript ion: hydrochl orothiaz móniac-tria mterene; Dosage:1 ; Route:or al; refills: 0 [...] Organization Details Last Updated DateTime 152.4 cm 35 kg/m2 50743.0 3 g 9 90 % 90 % 2 L/min 73.02 /min 118/64 mm[Hg] Blanca Gannon [facility] 10:50:52 Social History Question Answer Notes LastModified by Organizat ion Details LastModified Time Tobacco Smoking Status Former Smoker Blanca Gannon [facility] 11/19/2023 14:27:06 What Was The Date [...] 06/29/2021 Are you currently employed? No disabled [place] [address] Information not available 05/04/2024 Mental Status None recorded. Family History Relationship Description Onset Age of this Age Resolved Age Notes LastModified by Organization Details LastModified Time Unspecified Relation Malignant neoplastic disease Not available 04/12 14:49:35 Unspecified Relation Diabetes mellitus [id number] Not available 04/12 14:49:35 Mother Familial cancer of breast [id number] Not available 04/12 14:49:35 Mother Malignant neoplasm of pancreas [id number] Not available 2024 14:51:13 Mother Chronic obstructive pulmonary disease [id number] Not available 2024 14:51:40 Father Hypercholest erolemia [id number] Not available 2024 14:51:58 Medical History Condition [...] Y Meningitis N Ulcers N Heart Attack ([place]) N Mental Illness Y Ovarian Cancer N [...] ICD10 Code Diagnosis IMO Codes Diagnosis Note [id number] RAOUL KINSEY MD [facility] [address] [place] [address] 12/22/2024 10:37:41 12/22/2024 10:59:26 Chronic low back pain 404649636 M54.50 Degenerati on of lumbar intervertebral disc 76902892 M51.362 Spinal hilda nosis of lumbar region 20127496 M48.062 Health Concerns Section Related Observation LastModified by Organization Detai ls LastModified Time None Recorded Concern Status LastModified by Organization Details LastModified Time None Recorded Payers Encounter Date Sequence Insurance Name Policy Number Policy Sanchez Covered Member ID Sanchez Member ID Guarantor Name 12/22/2024 1 [place] aCsi Cruz [id number] Casi Cruz 12/22/2024 2 [employer]BINED [employer]ANCE - [employer] (MEDICARE SUPPLEMENT) Casi Cruz [id number] Casi Cruz Notes Date Note Type Note [...] bladder-leaks. She states she does take an bgud-ptz-yjfqgvn stool softener/laxative. She states she has been [...] s visit.Etoh-Denied. Tobacco-Denied. CBD-Denied. RAOUL KINSEY MD [address] [place] [address], [phone], [facility] 12/22/2024 13:29:43 OBGyn Episode No OBEpisode recorded.
== END 2025-01-15 23:59 ==
LOC: LAB.DROPOF 01-18 11:57
PROVIDERS: PCP Nurse Practitioner Family; Visit Provider Nurse Practitioner Family
DX: D50.9 Iron deficiency anemia, unspecified (principal); R73.03 Prediabetes
CPT/HCPCS: 82728; 83036; 83540; 83550; 85025

== ENCOUNTER 2025-01-29 11:15 | Outpatient (CLI) | payer MEDICARE, OTHER, SELFPAY ==
--- OUTSIDE RECORDS SUMMARY | 2024-11-26 10:00 | XMS_ITS | Encounter Summary ---
Author Organization [facility] ystem Address [address] [place] [address] Care Team Providers Care Shoe Fitter Name Role Phone Sandra Orozco APRN Primary Care Provider Reason for Visit * Reason Comments Shortness of Breath Encounter Details Date Type Department Care Team (Latest Contact Info) Description 11/26/2024 11:00 AM EDT Office Visit [facility] CARDIOLOGY [address] [facility] [address], [place] [address] Dina Solano APRN [address] [facility] [address] [place] [address] Paroxysmal atrial fibrillation (Primary Dx); History of [...] = 0.6 oz pur e alcohol) former [facility] Utilities Answer Date Recorded In the past 12 months has [employer] electric, gas, oil, or water company threatened [...] care, and heating? Not very hard 11/13/2024 [facility] [place] of Occupat ional Health - Occupational Stress [...] GED or equivalent No 11/13/2024 Preferred Language Georgian 11/13/2024 PHQ-2 Answer Date Recorded Patient Health [...] 11:00 AM EDTAssociated Problem(s): Paroxysmal atrial fibrillation [id number] Continue Xarelto 15 mg p.o. daily Continue [...] pulmonary disease) Continue follow-up with pulmonary * Dina Solano APRN - 11/26/2024 11:00 AM EDT Images from the original note were not included. Cardiology Established Patient Note Name: Casi Cruz : 1960 PCP: Sandra Orozco APRN Date: 11/26/2024 Department: Minh [facility] C[facility]OLOGY [address] [facility] [address] [facility] [address] Chief Complaint: Chief Complaint Patient presents with Shortness of Breath Problem list: Paroxysmal atrial fibrillation/History of ischemic CVA/TIAs status post loop explant [id number] (Female, Age, CVA, PAD) PAF noted [...] to admission. She continues to see her house mover and has a follow-up appointment scheduled. She [...] Plan Assessment & Plan Paroxysmal atrial fibrillation [id number] Continue Xarelto 15 mg p.o. daily Continue [...] 3 months (around 02/25/2025). Patient or patient membership sales representative verbalized consent for the use of Ambient Listening during the visit with Dina Solano APRN for chart documentation. 11/26/2024 10:42 EDT Dina Solano APRN [facility] Cardiology documented in this encounter Plan of Treatment Upcoming Encounters Date Type Department Care Team (Late st Contact Info) Description 02/16/2025 11:00 AM EST Office Visit [facility] CARDIOLOGY [address] [facility] [address] [place] [address] Dina Solano APRN [address] [facility] [address] [place] [address] Scheduled Orders Name Type Priority Associated Diagnoses Orde r Schedule Lipid Panel Lab Routine Hyperlipidemia LDL goal <55 Expected: 12/01/2024 (Approximate), Expires: 11/26/2025 Lipoprotein A (LPA) Lab Routine Hyperlipidemia LDL goal <55 Expected: 12/26/2024 (Approximate), Expires: 11/26/2025 High Sensitivity CRP Lab Routine Hyperlipidemia LDL goal <55 Expected: 12/26/2024 (Approximate), Expires: 11/26/2025 Hemoglobin A1c Lab Routine Prediabetes Expected: 12/01/2024 (Approximate), Expires: 11/26/2025 Comprehensive Metabolic Panel Lab Routine Paroxysmal atrial fibrillation History of CVA (cerebrovascular accident) Expected: 02/25/2025 (Approximate), Expires: 11/26/2025 CBC & Differential Lab Panel Routine Anemia, unspecified type Expected: 02/25/2025 (Approximate), Expires: 11/26/2025 Comprehensive Metabolic Panel Lab Routine Paroxysmal atrial fibrillation Expected: 12/01/2024 (Approximate), Expires: 11/26/2025 documented as of this encounter Procedures Procedure Name Priority Date/Time Associated Diagnosis Comments LIPID PANEL Routine 12/01/2024 Hyperlipidemia LDL goal <55 documented in this encounter Results * Lipid Panel (12/01/2024) Blood us Dina Solano APRN LAB BLOOD ORDERABLES Final Re sult [facility]
[address] [place] [address], documented in this encounter Visit Diagnoses Diagnosis Paroxysmal atrial fibrillation- Primary Atrial fibrillation History of CVA (cerebrovascular accident) Transient ischemic attack (TIA), and cerebral infarction without residual deficits Chronic respiratory failure with hypoxia Hyperlipidemia LDL goal <55 Prediabetes Other abnormal glucose Anemia, unspecified type Chronic venous insufficiency of lower extremity Chronic obstructive pulmonary disease, unspecified COPD type documented in this encounter Care Teams Shoe Fitter Relationship Specialty Start Date End Date Sandra Orozco APRN [address] [address] PCP - General Internal Medicine 05/11/24 documented as of this encounter
--- OUTSIDE RECORDS SUMMARY | 2025-01-29 11:18 | XMS_ITS | Encounter Summary ---
Author Organization [facility] ystem Address [address] [place] [address] Care Team Providers Care Physical Trainer Name Role Phone Sandra Orozco APRN Primary Care Provider [phone] Encounter Details Date Type Department Care Team (Late st Contact Info) Description 01/06/[address] [facility] CARDIOLOGY [address] [facility] [address], [place] [address] Dina [place] APRN [address] [facility] [address] [place] [address] Social History Tobacco Use Types Packs/Day Years Used Date Smoking Tobacco: Former Cigarettes 2 45 Q uit: 05/10/2023 Smokeless Tobacco: Never Comments:Liked to smoke Alcohol Use Standard Drinks/Week Comments Not Currently 0 (1 standard drink = 0.6 oz pur e alcohol) former [facility] Utilities Answer Date Recorded In the past 12 months has [employer], gas, oil, or water company threatened to [...] care, and heating? Not very hard 11/13/2024 [facility] of Occupat ional Health - Occupational Stress [...] FOR CARDIAC CLEARANCE Caller name: Winnie/Brea Davidson [facility] needs a clearance for a dental cleaning Unable to fax. Email was given: [email or web address] Since the [employer] do not [...] AM EST Office Visit [facility] C[facility]IOLOG[facility] [address] [facility] [address] [place] [address] Dina [place] APRN [address] [facility] [address] [place] [address] documented as of this encounter Visit Diagnoses Not on filedocumented in this encounter Care Teams Physical Trainer Relationship Specialty Start Date End Date Sandra Orozco APRN [address] [facility] [address] [place] [address] PCP - General Internal Medicine 05/11/24 documented as of this encounter
--- OUTSIDE RECORDS SUMMARY | 2025-01-29 11:18 | XMS_ITS | Encounter Summary ---
Author Organization [facility] ystem Address [address] [place] [address] Care Team Providers Care Tree And Shrub Worker Name Role Phone Sandra Orozco APRN Primary Care Provider Encounter Details Date Type Department Care Team (Late st Contact Info) Description 11/30/2024 Readmission Management [facility] NURSE CALL CENTER [address] [place] [address] Christiano Gresham, RN Social History Tobacco Use Types Packs/Day Years Used Date Smoking Tobacco: Former Cigarettes 2 45 Q uit: 05/10/2023 Smokeless Tobacco: Never Comments:Liked to smoke Alcohol Use Standard Drinks/Week Comments Not Currently 0 (1 standard drink = 0.6 oz pur e alcohol) former [facility] Utilities Answer Date Recorded In the past 12 months has [employer], gas, oil, or water [employer] threatened to shut off services in your [...] care, and heating? Not very hard 11/13/2024 [facility] - Occupational Stress Questionnaire Answer Date [...] GED or equivalent No 11/13/2024 Preferred Language Belizean 11/13/2024 PHQ-2 Answer Date Recorded Patient Health [...] CHF Week 1 Survey Flowsheet Row Responses [facility] [place] the patient have one of the following disease processes/diagnoses(primary or secondary)? CHF CHF Week 1 attempt successful? No Unsuccessful attempts Attempt 2 Christiano Romero - Registered Nurse documented in this encounter Plan of Treatment Upcoming Encounters Date Type Department Care Team (Late st Contact Info) Description 02/16/2025 11:00 AM EST Office Visit [facility] CARDIOLOGY [address] [facility] [address] [place] [address] Dina [place] APRN 3000 [facility] [address] [place] [address] documented as of this encounter Visit Diagnoses Not on filedocumented in this encounter Care Teams Tree And Shrub Worker Relationship Specialty Start Date End Date Sandra Orozco APRN [address] [address] PCP - General Internal Medicine 05/11/24 documented as of this encounter
--- OUTSIDE RECORDS SUMMARY | 2025-01-29 11:19 | XMS_ITS | Encounter Summary ---
Author Organization [employer] ([place], [place], [place], [place], [place]) Address [address] [place] [address] Care Team Providers Care Student Life Vice President Name Role Phone OrozcoSheri randhawaagustin MIRANDA Primary Care Provider Encounter Details Date Type Department Care Team (Late st Contact Info) Description 03/01/2020 Transcribed Document [facility] Family Medicine [facility] [place] [address] ProviderAide MD [address] [place] [address] Social History Tobacco Use Types Packs/Day [...] Aide Reed MD - 03/01/2020 11:34 AM FURNACE FEEDER DATE OF PROCEDURE: 03/01/2020 SURGEON: Noemi Mayfield [...] 18-gauge Tuohy needle was advanced by the hpiy-us-jaucsrzmip technique under direct fluoroscopic guidance into the [...] visit and the patient has been afebrile. /[id number] Noemi Mayfield MD, JELANI Pain Certified DELILAH/ANTHONY / KR / MODL /[id number] documented in this encounter Plan of Treatment Not on file documented as of this encounter Visit Diagnoses Not on filedocumented in this encounter Care Teams Student Life Vice President Relationship Specialty Start Date End Date Sandra Orozco, SUPERVISOR [employer]ING [employer] FINISHING [address] [place] [address] PCP - General Nurse Practitioner 01/24/22 documented as of this encounter
--- OUTSIDE RECORDS SUMMARY | 2025-01-29 11:19 | XMS_ITS | Data Portability ---
Author Organization [facility] NASEEM Chandler WANCHESE CLOSED Address [address] [place] [address] Care Team Providers Care Shoe Shiner Name Role Phone GLADIS DELCID Primary Care Provider Assessment Encounter Date Assessment Date Assessment LastModified by Organization Details LastModified Time 06/25/2024 06/25/2024 Plan: I have personally reviewed this patient's MOHSEN report as per [place] medical board guidelines and it was [...] reviewed this patient's MOHSEN report as per [facility] board guidelines and it was found [...] reviewed this patient's MOHSEN report as per [place] medical board guidelines and it was [...] reviewed this patient's MOHSEN report as per [place] medical board guidelines and it was [...] 325 mg tablet 2024 025 [facility], [address] [place] [address] [place], [id number], 12/22/2024 11:18:36 hydrocodo ne 7.5 mg-acetam inophen 325 mg tablet 2024 025 [facility], [address] [place] [address], [place], [id number], 12/22/2024 11:18:36 hydrocodo ne 5 mg-acetam inophen 325 mg tablet 2024 025 [facility], [address] [place] [address], [place], [id number], 10/27/2024 11:27:38 hydrocodo ne 5 mg-acetam inophen 325 mg tablet 2024 025 [facility], [address] [place] [address], [place], [id number], 10/27/2024 11:27:38 hydrocodo ne 5 mg-acetam inophen 325 mg tablet 2024 025 [facility], [address] [place] [address] [place], [id number], 08/25/2024 11:08:17 hydrocodo ne 5 mg-acetam inophen 325 mg tablet 2024 025 [facility], [address], [id number], 08/25/2024 11:08:18 hydrocodo ne 5 mg-acetam inophen 325 mg tablet 2024 025 [facility] 591, [address], [id number], 06/25/2024 11:29:57 hydrocodo ne 5 mg-acetam inophen 325 mg tablet 2024 025 [facility] 591, [address], [id number], 06/25/2024 11:29:56 Patient TargetsNo targets recorded. Patient InstructionsNo instructions recorded. Reason for Referral None Reported. Results Created Date Observation Date Name Description Value Unit Range Abnormal Flag Note LastModifiedBy Organization Detail LastModifiedTime 08/26/1908/27/2024 HIGH RISK DRUG PANEL gabapentin NEGATI VE NG/mL <1000 normal Not Available [facility] [address] [place], [address], 08/30/2024 17:49:46 08/26/19 25 08/27/2024 HIGH RISK DRUG PANEL pregabalin, qt ur NEGATI VE NG/mL <1000 normal Not Available [facility] [address] [place], [address], 08/30/2024 17:49:46 08/26/19 25 08/27/2024 HIGH RISK DRUG PANEL desmethyltra madol NEGATI VE NG/mL <100 normal Not Available [facility] [address] [place], [address], 08/30/2024 17:49:46 08/26/19 25 08/27/2024 HIGH RISK DRUG PANEL tramadol NEGATI VE NG/mL <100 normal Not Available [facility] [address] [place] [address], [address], 08/30/2024 17:49:46 08/26/19 25 08/27/2024 HIGH RISK DRUG PANEL tapentadol NEGATI VE NG/mL <50 normal Not Available [facility] [address] [place] [address], [address], 08/30/2024 17:49:46 08/26/19 25 08/27/2024 HIGH RISK DRUG PANEL nortapentado l NEGATI VE NG/mL <50 normal Not Available [facility] [address] [place] [address], [address], 08/30/2024 17:49:46 08/26/19 25 08/27/2024 HIGH RISK DRUG PANEL ethyl glucuronide NEGATI VE NG/mL <500 normal Not Available [facility] [address] [place] [address], [address], 08/30/2024 17:49:46 08/26/19 25 08/27/2024 HIGH RISK DRUG PANEL ethyl sulfate NEGATI VE NG/mL <100 normal Not Available [facility] [address] [place] [address], [address], 08/30/2024 17:49:46 08/26/19 25 08/27/2024 HIGH RISK DRUG PANEL buprenorphin e NEGATI VE NG/mL <2 normal Not Available [facility] [address] [place] [address], [address], 08/30/2024 17:49:46 08/26/19 25 08/27/2024 HIGH RISK DRUG PANEL norbuprenorp shadi NEGATI VE NG/mL <2 normal Not Available [facility] [address] [place] [address], [address], 08/30/2024 17:49:46 08/26/19 25 08/27/2024 HIGH RISK DRUG PANEL naloxone NEGATI VE NG/mL <2 normal Not Available [facility] [address] [place] [address], [address], 08/30/2024 17:49:46 08/26/19 25 08/30/2024 HIGH RISK DRUG PANEL amphetamines NEGATI VE NG/mL <500 normal Not Available [facility] [address] [place] [address], [address], 08/30/2024 17:49:46 08/26/19 25 08/30/2024 HIGH RISK DRUG PANEL barbiturates NEGATI VE NG/mL <300 normal Not Available [facility] [address] [place] [address], [address], 08/30/2024 17:49:46 08/26/19 25 08/30/2024 HIGH RISK DRUG PANEL benzodiazepi rufus NEGATI VE NG/mL <100 normal Not Available [facility] [address] [place] [address], [address], 08/30/2024 17:49:46 08/26/19 25 08/30/2024 HIGH RISK DRUG PANEL marijuana metabolite NEGATI VE NG/mL <20 normal Not Available [facility] [address] [place] [address], [address], 08/30/2024 17:49:46 08/26/19 25 08/30/2024 HIGH RISK DRUG PANEL cocaine metabolite NEGATI VE NG/mL <150 normal Not Available [facility] [address] [place] [address], [address], 08/30/2024 17:49:46 08/26/19 25 08/30/2024 HIGH RISK DRUG PANEL methadone metabolite NEGATI VE NG/mL <100 normal Not Available [facility] [address] [place] [address], [address], 08/30/2024 17:49:46 08/26/19 25 08/30/2024 HIGH RISK DRUG PANEL opiates POSITI VE NG/mL <100 abnormal Not Available [facility] [address] [place], [address], 08/30/2024 17:49:46 08/26/19 25 08/30/2024 HIGH RISK DRUG PANEL codeine NEGATI VE NG/mL <50 normal Not Available [facility] [address] [place] [address], [address], 08/30/2024 17:49:46 08/26/19 25 08/30/2024 HIGH RISK DRUG PANEL hydrocodone 3424 NG/mL <50 high Not Available [facility] [address] [place] [address], [address], 08/30/2024 17:49:46 08/26/19 25 08/30/2024 HIGH RISK DRUG PANEL hydromorphon e 186 NG/mL <50 high Not Available [facility] [address] [place] [address], [address], 08/30/2024 17:49:46 08/26/19 25 08/30/2024 HIGH RISK DRUG PANEL morphine NEGATI VE NG/mL <50 normal Not Available [facility] [address] [place] [address], [address], 08/30/2024 17:49:46 08/26/19 25 08/30/2024 HIGH RISK DRUG PANEL norhydrocodo ne 1612 NG/mL <50 high Not Available [facility] [address] [place] [address], [address], 08/30/2024 17:49:46 08/26/19 25 08/30/2024 HIGH RISK DRUG PANEL oxycodone NEGATI VE NG/mL <100 normal Not Available [facility] [address] [place] [address], [address], 08/30/2024 17:49:46 08/26/19 25 08/30/2024 HIGH RISK DRUG PANEL phencyclidin e NEGATI VE NG/mL <25 normal Not Available [facility] [address] [place] [address], [address], 08/30/2024 17:49:46 08/26/19 25 08/30/2024 HIGH RISK DRUG PANEL creatinine 226.2 mg/dL > or = 20.0 normal Not Available [facility] [address] [place], [address], 08/30/2024 17:49:46 08/26/19 25 08/30/2024 HIGH RISK DRUG PANEL specific gravity 1.012 > or = 1.003 normal Not Available [facility] [address] [place], [address], 08/30/2024 17:49:46 08/26/1908/30/2024 HIGH RISK DRUG PANEL pH 5.7 4.5-9. 0 normal Not Available [facility] [address] [place], [address], 08/30/2024 17:49:46 08/26/19 25 08/30/2024 HIGH RISK DRUG PANEL oxidant NEGATI VE mcg/m L <200 normal Not Available [facility] [address] [place], [address], 08/30/2024 17:49:46 08/26/1908/30/2024 HIGH RISK DRUG PANEL [...] condi tions . Opiat es Notes : Houston codon e, Norhy droco done, Houston morph one detec abbie is consi stent with the use of the drug [place] codon e. [place] morph one detec abbie is consi stent with the use of the drug [place] morph one. Houston morph one can be a presc ribed drug and is also a metab olite of [place] codon e. Confi rmati on testi ng Perfo rmed at: [facility] [place] [address] [place] [address] Labor atory Direc tor: ZEUS DALTON George PEGUERO S CLIA: [id number] LDT Notes : Confi rmati on tests [...] M-F, 8am to 10pm EST Not Available [facility] [address] [place] [address], [address], 08/30/2024 17:49:46 08/26/19 25 08/30/2024 HIGH RISK DRUG PANEL fentanyl NEGATI VE NG/mL <0.5 normal Not Available [facility] [address] [place] [address], [address], 08/30/2024 17:49:46 08/26/19 25 08/30/2024 HIGH RISK DRUG PANEL heroin metabolite, qt ur NEGATI VE NG/mL <10 normal Not Available [facility] [address] [place] [address], [address], 08/30/2024 17:49:46 04/14/19 25 04/14/2024 XR, lumbo sacra l spine , 2 or 3 view, bendi ng only [facility] [address] [place] [address] [place] [address] Kirstieshashi morse Name: MARTHA morse : [phone] [...] Edin Luke MD on 04/14/19 12:15 PM [email or web address] [facility] [address] [place], [address], 06/23/2024 15:57:27 Result Notes None recorded. Problems Name Problem SNOMED Code Status Onset Date Resolution Date Notes Provider Name and Address Organization Details Recorded Time Low back pain 588180304 Active Status: Active Not Available [facility] 7 06:47:46 Disorder of bone and articular cartilage 164245287 Active 2015 Status: Active Not Available [facility] 6 05:37:02 Lumbosacr al radiculop athy 5522742 Active 2015 From Automated Load;Provi boris: Lux Fernández; atus: Active Not Available [facility] 7 08:30:56 Problem Notes None recorded. Procedures Surgical History Date Name Laterality Status Provider Name and Address Organization Details Recorded Time 04/10/19 Date of Last Mammogram completed Amira Hogan [facility] 05/04/2024 14:53:23 tonsillectomy completed [facility] 06/29/2021 11:07:23 partial hysterectomy completed [facility] 06/29/2021 11:07:41 cholecystectomy completed [facility] 06/29/2021 11:07:49 Unlisted px accessory sinus completed Kailey Castellanodie [facility] 06/29/2021 11:08:12 Unlisted px phrnx adnd/tnsl completed Kailey Castellanodie [facility] 06/29/2021 11:08:24 procedure on vein completed Kailey Castellanodie Dina [facility] 06/29/2021 11:08:40 Appendectomy completed Amira Samira [facility] 05/04/2024 14:53:09 Imaging Results [...] 2011 10:08 :22 AM; Not Available [facility] 6 12:52:49 043251 Celebrex medicatio n Not available Not available Not available 02/03/20162011 78604 7 RxNorm Comme nt: Creat ed By: Storm HigginsC reate d Date: 2011 10:08 :34 AM; Not Available [facility] 6 05:46:24 291026 Levaquin medicatio n Not available Not available Not available 02/03/20162011 13457 2 RxNorm Comme nt: Creat ed By: Storm HigginsC reate d Date: 2011 10:07 :37 AM; Not Available [facility] 6 08:06:37 898276 Macrobid medicatio n Not available Not available Not available 02/03/20162011 22471 1 RxNorm Comme nt: Creat ed By: Storm HigginsC reate d Date: 2011 10:08 :04 AM; Not Available [facility] 6 08:06:37 320886 Product containin g penicilli n (product) medicatio n Not available Not available Not available 06/29/2021 35643 8001 SNOMED Kailey Valerie null, [facility] 2 11:02:22 961195 gabapenti n medicatio n Not available Not available Not available 06/29/2021 62790 RxNorm Kailey Valerie null, [facility] 2 11:02:39 016907 leflunomi de medicatio n Not available Not available Not available 06/29/2021 22447 RxNorm Kailey Valerie [facility] 2 11:02:54 633364 Naprosyn medicatio n Not available Not available Not available 06/29/2021 2 Rx[facility] 11:03:06 024936 dextromet horphan hydrobrom mónica medicatio n Not available Not available Not available 05/04/2024 84185 0 RxNorm Amira Hogan [facility] 5 15:09:56 559590 Omnicef medicatio n Not available Not available Not available 05/04/2024 03983 RxNorm Amira Hogan [facility] 5 15:10:19 029551 nortripty line medicatio n Not available Not available Not available 05/04/2024 7531 RxNorm Amira Hogan [facility] 5 15:10:37 508744 Lyrica medicatio n Not available Not available Not available 05/04/2024 03882 1 RxNorm Amira Hogan [facility] 5 15:10:45 Medications Name Sig Start [...] (BMI) Body weight Heart rate Oxygen saturation Systolic And Diastolic Provider Name and Address Organization Details Last Updated DateTime 5 152.4 cm 35.3 kg/m2 58443.4 3 g 69 /min 86 % 110/50 mm[Hg] Amira Hogan [facility] 5 15:03:21 Date Recorded Body height Body mass index (BMI) Body weight Pain severity - 0-10 verbal numeric rating [Score] - Reported Oxygen saturation Inhaled oxygen flow rate Provider Name and Address Organization Details Last Updated DateTime 5 152.4 cm 35.7 kg/m2 44352.4 g 8 94 % 2 L/min Blancalalo Gannon [facility] 5 11:11:53 Date Recorded Body height Body mass index (BMI) Body weight Pain severity - 0-10 verbal numeric rating [Score] - Reported Oxygen saturation Inhaled oxygen flow rate Heart rate Systolic And Diastolic Provider Name and Address Organization Details Last Updated DateTime 5 152.4 cm 34.8 kg/m2 27036.4 4 g 9 94 % 1 L/min 79 /min 122/64 mm[Hg] Blancalalo Gannon [facility] 5 10:45:12 Date Recorded Body height Body mass index (BMI) Body weight Pain severity - 0-10 verbal numeric rating [Score] - Reported Oxygen saturation Heart rate Systolic And Diastolic Provider Name and Address Organization Details Last Updated DateTime 5 152.4 cm 34.8 kg/m2 56036.4 4 g 6 93 % 82 /min 122/66 mm[Hg] Malena Sotomayor [facility] 5 10:51:07 Date Recorded Body height Body mass index (BMI) Body weight Pain severity - 0-10 verbal numeric rating [Score] - Reported Oxygen saturation Inhaled oxygen flow rate Heart rate Systolic And Diastolic Provider Name and Address Organization Details Last Updated DateTime 5 152.4 cm 35 kg/m2 24542.0 3 g 9 90 % 2 L/min 73.02 /min 118/64 mm[Hg] Blacna Gannon [facility] 5 10:50:52 Social History Question Answer Notes LastModified by Organizat ion Details LastModified Time Tobacco Smoking Status Former Smoker Blanca G[facility] 11/19/2023 14:27:06 What Was The Date [...] 06/29/2021 Are you currently employed? No disabled [place] [id number] Information not available 05/04/2024 Mental Status None recorded. Family History Relationship Description Onset Age of this Age Resolved Age Notes LastModified by Organization Details LastModified Time Unspecified Relation Malignant neoplastic disease [email or web address] Not available 04/12 14:49:35 Unspecified Relation Diabetes mellitus Not available 04/12 14:49:35 Mother Familial cancer of breast [id number] Not available 04/12 14:49:35 Mother Malignant neoplasm of pancreas [email or web address] Not available 2024 14:51:13 Mother Chronic obstructive pulmonary disease [email or web address] Not available 2024 14:51:40 Father Hypercholest erolemia [email or web address] Not available 2024 14:51:58 Medical History Condition [...] Y Osteoporosis/Osteopenia Y Meningitis N Heart Attack ([place]) N Ulcers N Mental Illness Y Diabetes [...] ICD10 Code Diagnosis IMO Codes Diagnosis Note [id number] LUX FERNÁNDEZ MD [facility] [address] [place] [address] 01/18/2020 12:49:41 01/18/2020 15:14:53 Lumbar radiculopathy 896134604 M54.16 Time spent reviewing images, discussing the diagnosis and coordinati ng care: 30min [id number] DILIP BILL PA-C [facility] [address] [place] [address] 06/29/2021 10:15:51 07/04/2021 09:16:52 Lumbar radiculopathy 025929639 M54.16 [id number] GLENDA TUTTLE PA-C [facility] [address] [place] [address] 11/20/2021 10:07:54 11/27/2021 14:55:22 Lumbar spondylosis 455405594 M47.896 [id number] LUX FERNÁNDEZ MD SURGERY SCHEDULE [address] [place] [address] 02/09/2022 09:11:14 02/09/2022 10:30:20 [id number] LUX FERNÁNDEZ MD [facility] [address] [place] [address] 02/14/2022 13:50:04 02/26/2022 16:15:54 [id number] LUX FERNÁNDEZ MD [facility] [address] [place] [address] 03/15/2022 09:39:55 03/16/2022 16:35:55 Postoperative care 985443959 Z48.89 [id number] JUANITA VALDERRAMA APRN [facility] [address] [place] [address] 10/03/2023 12:25:46 10/04/2023 04:49:26 Lumbar radiculopathy 630748276 M54.16 Compressio n fracture of lumbar spine 878576351 M48.56XA Impairment of balance 38 7672728 R26.89 Poor manual dexterity 30 7579045 R29.898 [id number] LIA MORAES MD SURGERY SCHEDULE [address] [place] [address] 11/01/2023 13:01:26 11/05/2023 10:00:09 [id number] RAOUL KINSEY MD PAIN MEDICINE CLOSED [address] [place] [address] 1 11/19/2023 13:39:01 11/19/2023 15:00:53 Chronic low back pain 457527615 M54.50 Degenerati on of lumbar intervertebral disc 48298774 M51.36 Spinal hilda nosis of lumbar region 71399601 M48.062 [id number] RAOUL KINSEY MD [facility] CLOSED [address] [place] [address] 1 11/26/2023 12:42:31 11/26/2023 12:56:48 Chronic low back pain 993246534 M54.50 Degenerati on of lumbar intervertebral disc 59154256 M51.36 Spinal hilda nosis of lumbar region 79118529 M48.062 [id number] BIANCA ESPAÑA PA-C [facility] [address] [place] [address] 11/26/2023 13:56:01 11/27/2023 04:57:02 Postoperative visit 622941732 Z48.89 [id number] RAOUL KINSEY MD [facility] MEDICINE CLOSED [address] [place] [address] 12/24/2023 12:33:05 12/24/2023 13:02:45 Chronic low back pain 624105922 M54.50 The prescripti on to be filled on 12/27/23 was cancelled. The prescripti on sent to [facility] was cancelled. Degenerati on of lumbar intervertebral disc 23505635 M51.362 Spinal hilda nosis of lumbar region 22857688 M48.062 [id number] BIANCA ESPAÑA PA-C [facility] [address] [place] [address] 0 01/10/2024 09:40:04 01/11/2024 04:31:11 Lumbar radiculopathy 049044886 M54.16 [id number] RAOUL KINSEY MD PAIN MEDICINE CLOSED [address] [place] [address] 1 02/20/2024 12:35:26 02/20/2024 12:58:34 Chronic low back pain 582210519 M54.50 Degenerati on of lumbar intervertebral disc 98357244 M51.362 Spinal hilda nosis of lumbar region 45643617 M48.062 [id number] BIANCA ESPAÑA PA-C [facility] [address] [place] [address] 04/14/2024 13:13:45 04/15/2024 08:29:03 Lumbar radiculopathy 101114812 M54.16 [id number] RAOUL KINSEY MD PAIN MEDICINE CLOSED [address] [place] [address] 1 04/16/2024 11:04:40 04/16/2024 11:22:08 Chronic low back pain 096925371 M54.50 Degenerati on of lumbar intervertebral disc 54089093 M51.362 Spinal hilda nosis of lumbar region 44311147 M48.062 [id number] NIHARIKA BOCANEGRA, [place] [address] [place] [address] 1 05/04/2024 14:30:28 05/10/2024 04:08:11 Inversion of right nipple 5580960913 8210444 N64.59 Patient and I reviewed her medical [...] an as-needed basis. Decreased capillary filling time 83604530 R94.39 [id number] RAOUL KINSEY MD PAIN MEDICINE [facility] [address] [place] [address] 06/25/2024 11:02:23 06/25/2024 11:26:16 Chronic low back pain 205584684 M54.50 Degenerati on of lumbar intervertebral disc 30385068 M51.362 Spinal hilda nosis of lumbar region 81704399 M48.062 [id number] RAOUL KINSEY MD PAIN MEDICINE [address] [place] [address] 08/25/2024 10:26:44 08/25/2024 10:55:10 Chronic low back pain 120508493 M54.50 Degenerati on of lumbar intervertebral disc 36859640 M51.362 Spinal hilda nosis of lumbar region 58946164 M48.062 [id number] RAOUL KINSEY MD PAIN MEDICINE [address] [place] [address] 10/27/2024 10:42:37 10/27/2024 11:09:07 Chronic low back pain 780044871 M54.50 Degenerati on of lumbar intervertebral disc 65563407 M51.362 Spinal hilda nosis of lumbar region 53860700 M48.062 [id number] RAOUL KINSEY MD PAIN MEDICINE [address] [place] [address] 12/22/2024 10:37:41 12/22/2024 10:59:26 Chronic low back pain 250787096 M54.50 Degenerati on of lumbar intervertebral disc 71067134 M51.362 Spinal hilda nosis of lumbar region 06522542 M48.062 Health Concerns Section Related Observation LastModified by Organization Detai ls LastModified Time None Recorded Concern Status LastModified by Organization Details LastModified Time None Recorded Advance Directives Directive None Recorded Payers Insurance Date Sequence Insurance Name Policy Number Policy Sanchez Covered Member ID Sanchez Member ID Guarantor Name 12/19/2024 1 [place] Casi Cruz [id number] Casi Cruz 10/15/2023 2 [employer]ED [employer]ANCE - [employer] (MEDICARE SUPPLEMENT) Casi Cruz [id number] Casi Cruz Notes Date Note Type Note [...] Her mammogram was completed last month at [facility] (images and reports in PACS), [...] risk = 3.85% by Raisa, v8. NIHARIKA BOCANEGRA APRN [address] [place], [address], [facility] 05/09/2024 18:34:17 06/25/2024 text/html The pt [...] 6 months ago. CBD-Denied. 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 She states she does take an yldh-nuz-zjjaonv stool softener/laxative. She does not want to use anything regularly. The pt is sleeping approximately 2-3 hours per night. The pt is not working. The pt reports that she has not fallen since her last ov. The pt ambulates without an AD. The pt is accompanied by a friend at today s visit.Etoh-Denied. Tobacco-Denied. CBD-Denied. 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 She states she does take an sdai-brd-aqxwhhz stool softener/laxative. She states she has been [...] s visit.Etoh-Denied. Tobacco-Denied. CBD-Denied. RAOUL KINSEY MD [address] [place] [address], [phone], [facility] 10/27/2024 11:51:05 12/22/2024 text/html The pt [...] bladder-leaks. She states she does take an gkgg-wiq-zxcugdg stool softener/laxative. She states she has been [...] visit.Etoh-Denied. Tobacco-Denied. CBD-Denied. RAOUL KINSEY MD [address] [place], [address], [facility] 12/22/2024 13:29:43 OBGyn Episode No OBEpisode recorded.
--- OUTSIDE RECORDS SUMMARY | 2025-01-29 11:19 | XMS_ITS | Clinical Summary ---
Author Organization [facility] Address [address] [place] [address] Care Team Providers Care Vegetable Tester Name Role Phone Adryan Cooper MD Primary Care Provider [phone] Allergies Active Allergy Reactions Criticality Noted Date [...] tablet (5 mg). 05/28/2016 Active HYDROcodone-gudelia taminophen (Gibbon) 10-325 MG tablet 1 tablet (10 mg of hydrocodone). 05/01/2023 Active dicyclomine (Bentyl) 10 MG capsule 1 capsule (10 mg). 03/27/2023 Active dexlansoprazole (Dexilant) [address] capsule 1 capsule (60 mg). 05/28/2016 Active fluconazole (Diflucan) 100 MG tablet 1 tablet (100 mg). 08/16/2023 Active Encounters Date Type Department Care Team Description 01/26/2025 Telephone [facility] [address] [place] [address] Sam Flores from Last 3 Months Family History Medical [...] 10/10/2023 10:50 AM EDT Plan of Treatment Upcoming Encounters Date Type Department Care Team (Late st Contact Info) Description 02/11/2025 9:00 AM EST Office Visit [facility] [address] [place] [address] Sam Flores Health Maintenance Due Date Last Done Comments [facility]-Bone Density Scan 1958 [facility]-Depression Screening 1958 [facility]-Hepatitis C Screening 1958 [facility]-Medicare Annual Wellness (AWV) 1958 [facility]-Infant/Child/Adol SDOH Screenings 1958 [facility]- SDOH Screenings 1976 [facility]-Adult SDOH Screenings 1976 CT Colonography 2003 Colonoscopy 2003 FIT-DNA 2003 FIT 2003 FOBT 2003 Sigmoidoscopy 2003 [facility]-Colorectal Cancer Screening 2003 [facility]-Pneumococcal Vaccine: 50 + Years (1 of 1 - PCV) 2008 [facility]-Breast Cancer Screening 04/06/201703/12, 04/06/2015 ZER-KGHAM-[id number] Vaccine (3 - season) 2024 01/20/2021, 06/16/2020 [facility]-Influenza Vaccine (#1) 11/09/202412/26, 02/22/2023 [facility]-DTaP,Tdap,and Td Vaccine s (3 - Td or Tdap) 11/09/2027 11/08/2017, 06/22/2009, 08/29/2001 [facility]-RSV Vaccine: 60+ Years o r (1 - 1-dose 75+ series) 2033 [facility]-Obesity Intervention Completed 024, 10/10/2023 [facility]-Zoster Vaccines Completed 04/28/2024, 12/27/2023 HPV Vaccines Aged Out No longer eligi [...] patient's age to complete this topic Insurance [employer] [place] [id number] MEDICARE COMBINED PRIORITY 1 CARD Care Teams Vegetable Tester Relationship Specialty Start Date End Date Adryan Cooper MD [address] [place] [address] PCP - General 07/22/20
--- OUTSIDE RECORDS SUMMARY | 2025-01-29 11:19 | XMS_ITS | Encounter Summary ---
Author Organization [facility] Address [address] [place] [address] Care Team Providers Care Dye Can Operator Name Role Phone Adryan Cooper MD Primary Care Provider [phone] Encounter Details Date Type Department Care Team ([facility] Contact Info) Description 01/26/2025 Telephone [facility] [address] [place] [address] Sam Flores Social History Tobacco Use Types Packs/Day Years Used Date Smoking Tobacco: Former Cigarettes Comments Unknown Sex and Gender Information Value Date Recorded Sex Assigned at Not on file Legal Sex Female 8:24 PM EDT Gender Identity Not on file Sexual Orientation Not on file documented as of this encounter Miscellaneous Notes * Telephone Encounter - Domitila Garcias - 01/26/2025 11:50 AM EST . documented in this encounter Plan of Treatment Upcoming Encounters Date Type Department Care Team (Late Contact Info) Description 02/11/2025 9:00 AM EST Office Visit [facility] [address] [place] [id number] Sam Flores documented as of this encounter Visit Diagnoses Not on filedocumented in this encounter Additional Health Concerns Assessment Noted Time A Body Mass Index follow-up plan has been documented for the patient 11/12/2023 11:43 AM EDT documented as of this encounter Care Teams Dye Can Operator Relationship Specialty Start Date End Date Adryan Cooper MD [address] [place], [place] [address] PCP - General 07/22/20 documented as of this encounter
--- OUTSIDE RECORDS SUMMARY | 2025-01-29 11:19 | XMS_ITS | Clinical Summary ---
Author Organization [employer] ([place], [place], [place], [place], [place]) Address [address] [place] [address] Care Team Providers Care Tight Barrel Inspector Name Role Phone Ernesto Sandra MIRANDA Primary Care Provider [phone] Allergies Active Allergy Reactions Criticality Noted Date [...] your living situation today? [facility] 10/13/2023 Think about [...] speak a language other than [place] at [facility]? No [...] 06/22/2009, 08/29/2001 Medical Devices Implanted Type Area Entertainer & Comic Device Identifier Shelf Expiration Date Model / Serial / Lot Sealant Durasl Spine 5ml [id number] - [id number] Implanted:Qty: 1 on 01/31/2022 by Emeka Fernández MD at [facility] IMPLANTS N/A: Back [employer] 07/09/[id number] / / [id number] Cement Spinal Confidence 2839-10-000 - [id number] Implanted:Qty: 2 on 10/14/2023 at [facility] IMPLANTS N/A: Back J &J:DEPUY:DEPUY SPINE 06/08/2025 0 / / [id number] Insurance MEDICARE PART A B GENERIC COMMERCIAL Advance Directives For more information, please contact: [phone] Documents on File Type Date Recorded Patient Necktie Centralizing Machine Operator Expl anation Advance Directives and Livin [...] Son First Alternate Healthcare Decision-Maker Care Teams Tight Barrel Inspector Relationship Specialty Start Date End Date Sandra Orozco [employer] [address] [place] [address] PCP - General Nurse Practitioner 01/24/22
--- OUTSIDE RECORDS SUMMARY | 2025-01-29 11:19 | XMS_ITS | Referral Summary ---
Author Organization [employer] ([place], [place], [place], [place], [place]) Address [address] [place] [address] Care Team Providers Care Patient Accounts Specialist Name Role Phone Ernesto Sandra MIRANDA Primary Care Provider [phone] Allergies Active Allergy Reactions Criticality Noted Date [...] Do you speak a language other than Danish at [facility]? No [...] file Medical Devices Implanted Type Area Senior Design Engineer Device Identifier Shelf Expiration Date Model / Serial / Lot Sealant Durasl Spine 5ml [id number] - [id number] Implanted:Qty: 1 on 01/31/2022 by Emeka Fernández MD at [facility] IMPLANTS N/A: Back [employer] 07/09/[id number] / / [id number] Cement Spinal Confidence 2839-10-000 - [id number] Implanted:Qty: 2 on 10/14/2023 at [facility] IMPLANTS N/A: Back J &J:DEPUY:DEPUY SPINE 06/08/2025 0 / / [id number] Insurance MEDICARE PART A B GENERIC COMMERCIAL Advance Directives For more information, please contact: [phone] Documents on File Type Date Recorded Patient Security Business Analyst Expl anation Advance Directives and Marixa singh Will 01/31/2022 8:44 AM * Full Code (Latest Code Status on File) Date Activated Date Inactivated Comments 10/12/2023 11:08 PM 10/15/2023 6:49 PM * Full Code Date Activated Date Inactivated Comments 01/31/2022 5:41 PM 02/01/2022 4:50 PM Healthcare Agents on File Name Relationship Healthcare Agent Relationshi p Communication Luis Cruz Son First Alternate Healthcare Decision-Maker Care Teams Patient Accounts Specialist Relationship Specialty Start Date End Date Sandra Orozco, RUBEN [address] [id number] PCP - General Nurse Practitioner 01/24/22
--- OUTSIDE RECORDS SUMMARY | 2025-01-29 11:19 | XMS_ITS | Encounter Summary ---
Author Organization [employer] ([place], [place], [place], [place], [place]) Address [address] [place] [address] Care Team Providers Care Supervisor Advice Name Role Phone OrozcoSheri randhawaagustin MIRANDA Primary Care Provider [phone] Encounter Details Date Type Department Care Team (Late st Contact Info) Description 01/25/2020 Transcribed Document [facility] Family Medicine [address] [place] [address] ProviderAide MD [address] [place] [address] Social History Tobacco Use Types Packs/Day Years Used Date Smoking Tobacco: Never Assessed Comments Unknown Sex and Gender Information Value Date Recorded Sex Assigned at Not on file Legal Sex Female 2:35 PM CDT Gender Identity Not on file Sexual Orientation Not on file documented as of this encounter Miscellaneous Notes * Cerner Conversion Note - Historical ProviderMD - 01/25/2020 6:55 AM RN TRAVELING DATE OF ADMISSION: 01/22/2020 HISTORY OF PRESENT [...] applying ice and heat, physical therapy, exercise, [id number] medication, bed rest going to [facility], [...] to contact her primary physician and her vp talent management to see if we can hold the [...] visit and the patient has been afebrile. /[id number] Karim Chaparro, MD, JELANI Pain Certified KR/AQ / KR / MODL CC: MD Sandra Valero APRN Electronically signed by [facility] Conversion Dye Feeder Cerner at 06/27/2022 8:04 AM CDT documented in this encounter Plan of Treatment Not on file documented as of this encounter Visit Diagnoses Not on filedocumented in this encounter Care Teams Supervisor Advice Relationship Specialty Start Date End Date Sandra Orozco APRN [address] [address] PCP - General Nurse Practitioner 01/24/22 documented as of this encounter
--- OUTSIDE RECORDS SUMMARY | 2025-01-29 11:19 | XMS_ITS | Clinical Summary ---
[facility] Address [address] [place] [address] Care Team Providers Care Systems Support Specialist Name Role Phone Sandra Orozco APRN [...] all over Nortriptyline Swelling Low 04/15/2024 Poison [place] Extract Hives,Itching,Swell ing,Rash Low 04/15/2024 Poison oak/poison [...] of breath and lower extremity edema. Her manager hospitality was concerned about heart failure and advised [...] Assessment & Plan (11/26/2024 2:20 PM EDT): [id number] Continue Xarelto 15 mg p.o. daily Continue [...] Assessment & Plan (07/16/2024 12:10 PM EDT): [id number] Continue Xarelto 15 mg p.o. daily, [...] Type Department Care Team Description 01/06/2025 Telephone [facility] [address] [facility] [address], [place] [address] Dina Solano APRN 11/30/2024 Readmission Management [facility] [address] [place] [address] Christiano Gresham RN 11/26/2024 11:00 AM EDT Office Visit [facility] [address] [place] [address] [address], [place] [address] Dina Solano APRN Paroxysmal atrial fibrillation (Primary Dx); History of CVA (cerebrovascular accident); Chronic respiratory failure with hypoxia; Hyperlipidemia LDL goal <55; Prediabetes; Anemia, unspecified type; Chronic venous insufficiency of lower extremity; Chronic obstructive pulmonary disease, unspecified COPD type 11/26/2024 Travel 11/23/2024 Readmission Management [facility] [address] [place] [address] Kaykay Farrar RN 11/16/2024 Readmission Management [facility] [address] [place] [address] Omaira Knapp RN 11/12/2024 9:36 PM EDT - 11/14/2024 4:38 PM EDT Hospital Encounter [address] [place] [address] Logan rAaujo MD Butler, Jennifer, MD Barbato, Hayley R, DO West, Christopher R, MD Referred by health hospice care consultant (Primary Dx); Dyspnea on exertion; Chronic respiratory failure with hypoxia, on home O2 therapy; SMOOTH (obstructive sleep apnea); Elevated troponin; Moderate aortic valve regurgitation Discharge Disposition: Home or Self Care 11/12/2024 12:30 PM EDT Office Visit [facility] [address] [facility] [address], [place] [address] Dina Solano APRN Shortness of breath (Primary Dx); Generalized edema; Chronic respiratory failure with hypoxia; Paroxysmal atrial fibrillation; History of CVA (cerebrovascular accident); Moderate aortic valve regurgitation; Peripheral arterial disease 11/12/2024 Patient rounding ([facility]) [facility] [address] [facility] [address] [place] [address] Dina Solano APRN 11/12/2024 Travel 11/10/2024 Telephone [facility] [address] [facility] [address] [place] [address] Christy Kirk MD from Last [...] = 0.6 oz pur e alcohol) [facility] Utilities Answer Date Recorded In the past 12 months has e electric, gas, oil, or water [employer] threatened to shut off services in your [...] care, and heating? Not very hard 11/13/2024 [facility] [place] [facility] Occupat ional Health - Occupational Stress [...] GED or equivalent No 11/13/2024 Preferred Language Lithuanian 11/13/2024 PHQ-2 Answer Date Recorded Patient Health [...] Description 02/16/2025 11:00 AM EST Office Visit [facility] [address] [facility] [address] [address] Dina Solano APRN [address] [facility] [address] [place] [address] Health Maintenance Due Date Last Done Comments [...] EDT RESPIRATORY PANEL PCR W/ COVID-19 (SARS-COV-2), POLICE RESERVES COMMANDER SWAB IN UTM/VTP, 2 HR TAT Routine 11/13/2024 3:26 AM EDT BLOOD GAS, VENOUS W/CO-OXIMETRY STAT 11/12/2024 11:[address] ANGIOGRAM CHEST PULMONARY EMBOLISM STAT 11/12/2024 7:46 PM EDT COVID-19/FLUA&B/RSV, POLICE RESERVES COMMANDER SWAB IN TRANSPORT MEDIA 1 HR TAT [...] Final Re sult [facility]
[address] [place] [address], * ECHO COMPLETE W/ DOPPLER AND COLOR [...] - 10.80 10*3/mm3 11/13/2024 12:36 PM EDT [facility] RBC 3.89 3.77 - 5.28 10*6/mm3 11/13/2024 12:36 PM EDT [facility] Hemoglobin 8.1(L) 12.0 - 15.9 g/dL 11/13/2024 12:36 PM EDT [facility] Hematocrit 29.1(L) 34.0 - 46.6 % 11/13/2024 12:36 PM EDT [facility] MCV 74.8(L) 79.0 - 97.0 fL 11/13/2024 12:36 PM EDT [facility] MCH 20.8(L) 26.6 - 33.0 pg 11/13/2024 12:36 PM EDT [facility] MCHC 27.8(L) 31.5 - 35.7 g/dL 11/13/2024 12:36 PM EDT [facility] RDW 19.0(H) 12.3 - 15.4 % 11/13/2024 12:36 PM EDT [facility] RDW-SD 51.3 37.0 - 54.0 fl 11/13/2024 12:36 PM EDT [facility] MPV 9.8 6.0 - 12.0 fL 11/13/2024 12:36 PM EDT [facility] Platelets 227 140 - 450 10*3/mm3 11/13/2024 12:36 PM [facility] Neutrophil % 63.6 42.7 - 76.0 % 11/13/2024 12:36 PM [facility] Lymphocyte % 23.3 19.6 - 45.3 % 11/13/2024 12:36 PM [facility] Monocyte % 8.9 5.0 - 12.0 % 11/13/2024 12:36 PM [facility] Eosinophil % 2.8 0.3 - 6.2 % 11/13/2024 12:36 PM [facility] Basophil % 0.7 0.0 - 1.5 % 11/13/2024 12:36 PM [facility] Immature Grans % 0.7(H) 0.0 - 0.5 % 11/13/2024 12:36 PM [facility] Neutrophils, Absolute 3.44 1.70 - 7.00 10*3/mm3 11/13/2024 12:36 PM [facility] Lymphocytes, Absolute 1.26 0.70 - 3.10 10*3/mm3 11/13/2024 12:36 PM [facility] Monocytes, Absolute 0.48 0.10 - 0.90 10*3/mm3 11/13/2024 12:36 PM [facility] Eosinophils, Absolute 0.15 0.00 - 0.40 10*3/mm3 11/13/2024 12:36 PM [facility] Basophils, Absolute 0.04 0.00 - 0.20 10*3/mm3 11/13/2024 12:36 PM [facility] Immature Grans, Absolute 0.04 0.00 - 0.05 10*3/mm3 11/13/2024 12:36 PM [facility] nRBC 0.0 0.0 - 0.2 /100 WBC 11/13/2024 12:36 PM EDT [facility] Blood Venipuncture / Unknown 11/13/2024 12:07 PM EDT 11/13/2024 12:26 PM EDT Aaliyah Jha APRN LAB BLOOD ORDERABLES Final Re sult Performing Organization Address City/[facility]/ZIP Co de Phone Number [facility]
[address] [place] [address], [place] [phone] * (ABNORMAL) Reticulocytes (11/13/2024 12:07 PM EDT) Reticulocyte % 2.78(H) 0.70 - 1.90 % 11/13/2024 12:32 PM EDT [facility] Reticulocyte Absolute 0.1081 0.0200 - 0.1300 10*6/mm3 11/13/2024 12:32 PM EDT [facility] Blood Venipuncture / Unknown 11/13/2024 12:07 PM EDT 11/13/2024 12:26 PM EDT Aaliyah Jha APRN LAB BLOOD ORDERABLES Final Re sult Performing Organization Address [facility] Co de Phone Number [facility]
[address] [place] [address], * TSH (11/13/2024 12:07 PM EDT) TSH 2.770 0.270 - 4.200 uIU/mL 11/13/2024 12:56 PM EDT [facility] Blood Venipuncture / Unknown 11/13/2024 12:07 PM EDT 11/13/2024 12:26 PM EDT Aaliyah Jha APRN LAB BLOOD ORDERABLES Final Re sult Performing Organization Address City/[facility]/ZIP Co de Phone Number [facility]
[address] [place] [address], * Magnesium (11/13/2024 12:07 PM EDT) Only the most recent of2 resultswithin the time period is included. Magnesium 1.9 1.6 - 2.4 mg/dL 11/13/2024 12:56 PM EDT [facility] Blood Venipuncture / Unknown 11/13/2024 12:07 PM EDT 11/13/2024 12:26 PM EDT Aaliyah Jha APRN LAB BLOOD ORDERABLES Final Re sult [facility]
[address] [place] [address], * (ABNORMAL) Hemoglobin A1c (11/13/2024 12:07 PM EDT) [facility] Hemoglobin A1C 5.84(H) 4.80 - 5.60 % 11/13/2024 1:23 PM EDT [facility] Blood Venipuncture / Unknown 11/13/2024 12:07 PM EDT 11/13/2024 12:26 PM EDT Narrative [facility] - 11/13/2024 1:23 PM EDT Hemoglobin A1C Ranges: Increased Risk for Diabetes 5.7% to 6.4% Diabetes >= 6.5% Diabetic Goal < 7.0% Aaliyah Jha APRN LAB BLOOD ORDERABLES Final Re sult [facility]
[address] [place] [address], * Folate RBC (11/13/2024 12:07 PM EDT) Pathologist [facility] [place] Folate, Hemolysate 538.0 Not Estab. ng/mL 11/16/2024 9:09 AM EDT [facility] Hematocrit 40.7 34.0 - 46.6 % 11/16/2024 9:09 AM EDT [facility] RBC Folate 1322 >498 ng/mL 11/16/2024 9:09 AM EDT [facility] Blood Venipuncture / Unknown 11/13/2024 12:07 PM EDT 11/13/2024 12:26 PM EDT Narrative [facility] - 11/16/2024 9:09 AM EDT Performed at: 01 - [address] [id number] Plaster Die Maker: Gomez Crooks PhD, Phone: [phone] us Aaliyah Jha APRN LAB BLOOD ORDERABLES Edited R esult - Final [facility] [address] [place] [id number], * (ABNORMAL) Basic Metabolic Panel (11/13/2024 12:07 PM EDT) Glucose 100(H) 65 - 99 mg/dL 11/13/2024 12:56 PM EDT [facility] BUN 19.7 8.0 - 23.0 mg/dL 11/13/2024 12:56 PM EDT [facility] Creatinine 0.93 0.57 - 1.00 mg/dL 11/13/2024 12:56 PM EDT [facility] Sodium 143 136 - 145 mmol/L 11/13/2024 12:56 PM EDT [facility] Potassium 3.8 3.5 - 5.2 mmol/L 11/13/2024 12:56 PM EDT [facility] Chloride 102 98 - 107 mmol/L 11/13/2024 12:56 PM EDT [facility] CO2 31.1(H) 22.0 - 29.0 mmol/L 11/13/2024 12:56 PM EDT [facility] Calcium 8.6 8.6 - 10.5 mg/dL 11/13/2024 12:56 PM EDT [facility] BUN/Creatinine Ratio 21.2 7.0 - 25.0 11/13/2024 12:56 PM EDT [facility] Anion Gap 9.9 5.0 - 15.0 mmol/L 11/13/2024 12:56 PM EDT [facility] eGFR 67.9 >60.0 mL/min/1.7 3 11/13/2024 12:56 PM EDT [facility] Blood Venipuncture / Unknown 11/13/2024 12:07 PM EDT 11/13/2024 12:26 PM EDT Narrative [facility] - 11/13/2024 12:56 PM EDT GFR [...] APRN LAB BLOOD ORDERABLES Final Re sult [facility]
[address] [place] [address], * Duplex Venous Lower Extremity - Bilateral [...] resultswithin the time period is included. Pathologist [facility] [place] QT Interval 410 ms ECG QTC Interval [...] change was found Confirmed by ABDULLAHI HENDRICKSON ([id number]) on 11/13/2024 7:39:07 PM Referred By: Confirmed [...] change was found Confirmed by ABDULLAHI HENDRICKSON ([id number]) on 11/13/2024 7:39:07 PM Referred By: Confirmed By: ABDULLAHI HENDRICKSON us Aaliyah Jha APRN ECG ORDERABLES Final Result ECG * Respiratory Panel PCR w/COVID-19(SARS-CoV-2) SIDRA/CHECO/SAUD/PAD/COR/ERIC In-House, POLICE RESERVES COMMANDER Swab in UTM/VTM, 2 HR TAT - Swab, Nasopharynx (11/13/2024 3:26 AM EDT) ADENOVIRUS, PCR Not Detected Not Detected [facility] 11/13/2024 4:48 AM EDT [facility] Coronavirus 229E Not Detected Not Detected [facility] 11/13/2024 4:48 AM EDT [facility] Coronavirus HKU1 Not Detected Not Detected [facility] 11/13/2024 4:48 AM EDT [facility] Coronavirus NL63 Not Detected Not Detected [facility] 11/13/2024 4:48 AM EDT [facility] Coronavirus OC43 Not Detected Not Detected [facility] 11/13/2024 4:48 AM EDT [facility] COVID19 Not Detected Not Detected - Ref. Range [facility] 11/13/2024 4:48 AM EDT [facility] Human Metapneumovirus Not Detected Not Detected [facility] 11/13/2024 4:48 AM EDT [facility] Human Rhinovirus/Enterov irus Not Detected Not Detected [facility] 11/13/2024 4:48 AM EDT [facility] Influenza A PCR Not Detected Not Detected [facility] 11/13/2024 4:48 AM EDT [facility] Influenza B PCR Not Detected Not Detected [facility] 11/13/2024 4:48 AM EDT [facility] Parainfluenza Virus 1 Not Detected Not Detected [facility] 11/13/2024 4:48 AM EDT [facility] Parainfluenza Virus 2 Not Detected Not Detected [facility] 11/13/2024 4:48 AM EDT [facility] Parainfluenza Virus 3 Not Detected Not Detected [facility] 11/13/2024 4:48 AM EDT [facility] Parainfluenza Virus 4 Not Detected Not Detected [facility] 11/13/2024 4:48 AM EDT [facility] RSV, PCR Not Detected Not Detected [facility] 11/13/2024 4:48 AM EDT [facility] Bordetella pertussis pcr Not Detected Not Detected [facility] 11/13/2024 4:48 AM EDT [facility] Bordetella parapertussis PCR Not Detected Not Detected [facility] 11/13/2024 4:48 AM EDT [facility] Chlamydophila pneumoniae PCR Not Detected Not Detected [facility] 11/13/2024 4:48 AM EDT [facility] Mycoplasma pneumo by PCR Not Detected Not Detected [facility] 11/13/2024 4:48 AM EDT [facility] Swab Nasopharyngeal structure / Unknown Collection / Unknown 11/13/2024 3:26 AM EDT 11/13/2024 4:00 AM EDT [facility] - 11/13/2024 4:48 AM [...] MICROBIOLOGY - GENERAL ORDERA BLES Final Result [facility]
[address] [place] [address], * (ABNORMAL) Blood Gas, Venous With Co-Ox (11/12/2024 11:16 PM EDT) Site Nurse/Dr Draw 11/12/2024 11:17 PM EDT [facility] pH, Venous 7.337 7.310 - 7.410 pH Units 11/12/2024 11:17 PM EDT [facility] pCO2, Venous 59.6(H) 41.0 - 51.0 mm Hg 11/12/2024 11:17 PM EDT [facility] Comment:83 Value above refer ence range pO2, Venous 30.4 27.0 - 53.0 mm Hg 11/12/2024 11:17 PM EDT [facility] HCO3, Venous 31.9(H) 22.0 - 28.0 mmol/L 11/12/2024 11:17 PM EDT [facility] Base Excess, Venous 5.0(H) -2.0 - 2.0 mmol/L 11/12/2024 11:17 PM EDT [facility] Hemoglobin, Blood Gas 9.3(L) 14 - 18 g/dL 11/12/2024 11:17 PM EDT [facility] Oxyhemoglobin Venous 48.3 % 06/2024 11:17 PM EDT [facility] Methemoglobin Venous 0.4 % 06/2024 11:17 PM EDT [facility] Carboxyhemoglobin Venous 1.7 % 11/12/2024 11:17 PM EDT [facility] CO2 Content 33.7(H) 22 - 33 mmol/L 11/12/2024 11:17 PM EDT [facility] Temperature 37.0 11/12/2024 11:17 PM EDT [facility] Barometric Pressure for Blood Gas 11/12/2024 11:17 PM EDT [facility] Comment:N/A Modality Nasal Cannula 11/12/2024 11:17 PM EDT [facility] FIO2 28 % 11/12/2024 11:17 PM EDT [facility] Rate 0 Breaths/ minute 11/12/2024 11:17 PM EDT [facility] PIP 0 cmH2O 11/12/2024 11:17 PM EDT [facility] Comment:Meter: [id number] Bond Trader: [id number] IPAP 0 11/12/2024 11:17 PM EDT [facility] EPAP 0 11/12/2024 11:17 PM EDT [facility] Venous Blood 11/12/2024 11:1 6 PM EDT 11/12/2024 11:16 PM EDT us Logan Araujo MD LAB BLOOD ORDERABLES Fin al Result [facility]
[address] [place] [address], * CT Angiogram Chest Pulmonary Embolism (11/12/2024 7:46 PM EDT) Anatomical Region Laterality Modality Chest N/A Computed Tomogra phy 11/12/2024 8:22 PM EDT Impressions 11/12/2024 8:31 PM EDT No evidence of pulmonary embolus. No acute abnormality. Electronically Signed: Jed Machuca MD 11/12/2024 8:31 PM EDT Workstation ID: [id number] Hermann 11/12/2024 8:[address] ANGIOGRAM [...] MD 11/12/2024 8:31 PM EDT Workstation ID: [id number] Logan Araujo MD IMG CT ORDERABLES Final Result * COVID-19, FLU A/B, RSV PCR 1 HR TAT - Swab, Nasopharynx (11/12/2024 7:21 PM EDT) Pathologist [facility] [place] COVID19 Not Detected Not Detected - Ref. Range CEPHEID GENEXPERT 11/12/2024 8:24 PM EDT [facility] Influenza A PCR Not Detected Not Detected CEPHEID GENEXPERT 11/12/2024 8:24 PM EDT [facility] Influenza B PCR Not Detected Not Detected CEPHEID GENEXPERT 11/12/2024 8:24 PM EDT [facility] RSV, PCR Not Detected Not Detected CEPHEID GENEXPERT 11/12/2024 8:24 PM EDT [facility] Swab Nasopharyngeal structure / Unknown Collection / Unknown 11/12/2024 7:21 PM EDT 11/12/2024 7:46 PM EDT Logan Araujo MD MICROBIOLOGY - GENERAL O RDERABLES Final Result [facility]
[address] [place] [address], * (ABNORMAL) Urinalysis, Microscopic Only - Urine, Clean Catch (11/12/2024 7:20 PM EDT) Pathologist [facility] [place] RBC, UA 0-2 None Seen, 0-2 /HPF 11/12/2024 8:00 PM EDT [facility] WBC, UA 11-20(A) None Seen, 0-2 /HPF 11/12/2024 8:00 PM EDT [facility] Bacteria, UA None Seen None Seen /HPF 11/12/2024 8:00 PM EDT [facility] Squamous Epithelial Cells, UA 3-6(A) None Seen, 0-2 /HPF 11/12/2024 8:00 PM EDT [facility] Hyaline Casts, UA 0-2 None Seen /LPF 11/12/2024 8:00 PM EDT [facility] Methodology Automated Microscopy 11/12/2024 8:00 PM EDT [facility] Urine Urine specimen obtained by clean catch procedure / Unknown Collection / Unknown 11/12/2024 7:20 PM EDT 11/12/2024 7:46 PM EDT Logan Araujo MD URINE ORDERABLES Final R esult [facility]
[address] [place] [address], * (ABNORMAL) Urinalysis With Microscopic If Indicated (No Culture) - Urine, Clean Catch (11/12/2024 7:20 PM EDT) Color, UA Yellow Yellow, Straw 11/12/2024 8:00 PM EDT [facility] Appearance, UA Clear Clear 11/12/2024 8:00 PM EDT [facility] pH, UA 5.5 5.0 - 8.0 11/12/2024 8:00 PM EDT [facility] Specific [place], UA >1.030(H) 1.005 - 1.030 11/12/2024 8:00 PM EDT [facility] Glucose, UA Negative Negative 11/12/2024 8:00 PM EDT [facility] Ketones, UA Negative Negative 11/12/2024 8:00 PM EDT [facility] Bilirubin, UA Negative Negative 11/12/2024 8:00 PM EDT [facility] Blood, UA Negative Negative 11/12/2024 8:00 PM EDT [facility] Protein, UA Trace(A) Negative 11/12/2024 8:00 PM EDT [facility] Leuk Esterase, UA Small (1+)(A) Negative 11/12/2024 8:00 PM EDT [facility] Nitrite, UA Negative Negative 11/12/2024 8:00 PM EDT [facility] Urobilinogen, UA 1.0 E.U./dL 0.2 - 1.0 E.U./dL 11/12/2024 8:00 PM EDT [facility] Urine Urine specimen obtained by clean catch procedure / Unknown Collection / Unknown 11/12/2024 7:20 PM EDT 11/12/2024 7:46 PM EDT Logan Araujo MD URINE ORDERABLES Final R esult Performing Organization Address City/[facility]/ZIP Co de Phone Number [facility]
[address] [place] [address], [place] [phone] * Sodium, Urine, Random - Urine, Clean Catch (11/12/2024 7:20 PM EDT) Sodium, Urine <20 mmol/L 11/13/2024 3:37 AM EDT [facility] Urine Urine specimen obtained by clean catch procedure / Unknown Collection / Unknown 11/12/2024 7:20 PM EDT 11/12/2024 7:46 PM EDT Narrative [facility] - 11/13/2024 3:37 AM EDT Reference intervals for random urine have not been established. Clinical usage is dependent upon physician's interpretation in combination with other laboratory tests. Alaiyah Jha APRN URINE ORDERABLES Final Result Performing Organization Address [facility]/ZIP Co de Phone Number [facility]
[address] [place] [address], [place] [phone] * Osmolality, Urine - Urine, Clean Catch (11/12/2024 7:20 PM EDT) Osmolality, Urine 837 300 - 1,100 mOsm/kg 11/13/2024 4:00 AM EDT [facility] Urine Urine specimen obtained by clean catch procedure / Unknown Collection / Unknown 11/12/2024 7:20 PM EDT 11/12/2024 7:46 PM EDT Aaliyah Jha APRN URINE ORDERABLES Final Result Performing Organization Address City/[facility]/ZIP Co de Phone Number [facility]
[address] [place] [address], [place] [phone] * Creatinine Urine Random (kidney function) GFR [...] Aaliyah Jha APRN URINE ORDERABLES Final Result [facility]
[address] [place] [address], [place] [phone] * Urine Culture - Urine, Urine, Clean Catch (11/12/2024 7:20 PM EDT) Urine Culture No growth [id number] 11/14/2024 12:26 PM EDT [facility] Urine Urine specimen obtained by clean catch procedure / Unknown Collection / Unknown 11/12/2024 7:20 PM EDT 11/13/2024 12:57 AM EDT Logan Araujo MD MICROBIOLOGY - GENERAL O RDERABLES Final Result Performing Organization Address [facility]/ZIP Co de Phone Number [facility]
[address] [place] [address], [place] [phone] * (ABNORMAL) High Sensitivity Troponin T 1Hr (11/12/2024 7:16 PM EDT) HS Troponin T 16(H) <14 ng/L 11/12/2024 7:53 PM EDT [facility] Troponin T Numeric Delta -1 ng/L 11/12/2024 7:53 PM EDT [facility] Troponin T % Delta -6 Abnormal if >/= 20% 11/12/2024 7:53 PM EDT [facility] Blood Line / Unknown 11/12/2024 7: 16 PM EDT 11/12/2024 7:20 PM EDT Narrative [facility] - 11/12/2024 7:53 PM EDT High [...] MD LAB BLOOD ORDERABLES Fin al Result [facility]
[address] [place] [address], [place] [phone] * (ABNORMAL) Iron Profile w/o Ferritin (11/12/2024 7:16 PM EDT) Iron 21(L) 37 - 145 mcg/dL 11/13/2024 3:24 AM EDT [facility] Iron Saturation (TSAT) 4(L) 20 - 50 % 11/13/2024 3:24 AM EDT [facility] Transferrin 321 200 - 360 mg/dL 11/13/2024 3:24 AM EDT [facility] TIBC 478 298 - 536 mcg/dL 11/13/2024 3:24 AM EDT [facility] Blood Venipuncture / Unknown 11/12/2024 7:16 PM EDT 11/13/2024 2:57 AM EDT Aaliyahcolleen Jha APRN LAB BLOOD ORDERABLES Final Re sult Performing Organization Address City/[facility]/ZIP Co de Phone Number [facility]
[address] [place] [address], [place] [phone] * Ferritin (11/12/2024 7:16 PM EDT) Ferritin 13.80 13.00 - 150.00 ng/mL 11/13/2024 3:24 AM EDT [facility] Blood Venipuncture / Unknown 11/12/2024 7:16 PM EDT 11/13/2024 2:57 AM EDT Narrative [facility] - 11/13/2024 3:24 AM EDT Results may be falsely decreased if patient taking Biotin. Aaliyahcolleen Jha APRN LAB BLOOD ORDERABLES Final Re sult Performing Organization Address City/[facility]/ZIP Co de Phone Number [facility]
[address] [place] [address], [place] [phone] * XR Chest 1 View (11/12/2024 6:30 PM EDT) Anatomical Region Laterality Modality Body N/A Radiographic Tatyana ging 11/12/2024 7:00 PM EDT Impressions 11/12/2024 7:02 PM EDT Impression: 1. No acute cardiopulmonary disease. Electronically Signed: Arben Neely MD 11/12/2024 7:02 PM EDT Workstation ID: [id number] Narrative 11/12/2024 7:02 PM EDT XR CHEST [...] MD 11/12/2024 7:02 PM EDT Workstation ID: [id number] Logan Araujo MD IMG DIAGNOSTIC IMAGING O RDERABLES Final Result * Castellano Top (11/12/2024 5:17 PM EDT) Pathologist [facility] [place] Extra Tube Hold for add-ons. 11/12/2024 5:32 PM EDT [facility] Comment:Auto resulted. Blood Venipuncture / Unknown 11/12/2024 5:17 PM EDT 11/12/2024 5:17 PM EDT Logan Araujo MD LAB BLOOD ORDER ONLY Fin al Result [facility]
[address] [place] [address], * TSH Rfx On Abnormal To Free T4 (11/12/2024 5:17 PM EDT) Pathologist [facility] [place] TSH 2.480 0.270 - 4.200 uIU/mL 11/12/2024 5:51 PM EDT [facility] Blood Venipuncture / Unknown 11/12/2024 5:17 PM EDT 11/12/2024 5:17 PM EDT Logan Araujo MD LAB BLOOD ORDERABLES Fin al Result [facility]
[address] [place] [address], [place] [phone] * Gold Top - SST (11/12/2024 5:17 PM EDT) Extra Tube Hold for add-ons. 11/12/2024 5:32 PM EDT [facility] Comment:Auto resulted. Blood Venipuncture / Unknown 11/12/2024 5:17 PM EDT 11/12/2024 5:17 PM EDT Logan Araujo MD LAB BLOOD ORDER ONLY Fin al Result Performing Organization Address [facility]/ZIP Co de Phone Number [facility]
[address] [place] [address], [place] [phone] * Green Top (Gel) (11/12/2024 5:17 PM EDT) Extra Tube Hold for add-ons. 11/12/2024 5:31 PM EDT [facility] Comment:Auto resulted. Blood Venipuncture / Unknown 11/12/2024 5:17 PM EDT 11/12/2024 5:17 PM EDT Logan Araujo MD LAB BLOOD ORDER ONLY Fin al Result [facility]
[address] [place] [address], [place] [phone] * Scan Slide (11/12/2024 5:17 PM EDT) Anisocytosis Slight/1+ None Seen 11/12/2024 6:07 PM EDT [facility] Hypochromia Slight/1+ None Seen 11/12/2024 6:07 PM EDT [facility] Microcytes Mod/2+ None Seen 11/12/2024 6:07 PM EDT [facility] WBC Morphology Normal Normal 11/12/2024 6:07 PM EDT [facility] Platelet Morphology Normal Normal 11/12/2024 6:07 PM EDT [facility] Blood Venipuncture / Unknown 11/12/2024 5:17 PM EDT 11/12/2024 5:17 PM EDT Logan Araujo MD LAB BLOOD ORDERABLES Fin al Result Performing Organization Address City/[facility]/ZIP Co de Phone Number [facility]
[address] [place] [address], * Lavender Top (11/12/2024 5:17 PM EDT) Extra Tube hold for add-on 11/12/2024 5:31 PM EDT [facility] Comment:Auto resulted Blood Venipuncture / Unknown 11/12/2024 5:17 PM EDT 11/12/2024 5:17 PM EDT Logan Araujo MD LAB BLOOD ORDER ONLY Fin al Result [facility]
[address] [place] [address], [place] [phone] * Light Blue Top (11/12/2024 5:17 PM EDT) Extra Tube Hold for add-ons. 11/12/2024 5:31 PM EDT [facility] Comment:Auto resulted Blood Venipuncture / Unknown 11/12/2024 5:17 PM EDT 11/12/2024 5:17 PM EDT Logan Araujo MD LAB BLOOD ORDER ONLY Fin al Result Performing Organization Address City/[facility]/ZIP Co de Phone Number [facility]
[address] [place] [address], * (ABNORMAL) High Sensitivity Troponin T (11/12/2024 5:17 PM EDT) [facility] HS Troponin T 17(H) <14 ng/L 11/12/2024 5:51 PM EDT [facility] Blood Venipuncture / Unknown 11/12/2024 5:17 PM EDT 11/12/2024 5:17 PM EDT [facility] - 11/12/2024 5:51 PM [...] ORDERABLES Fin al Result Performing Organization Address City/[facility]/ZIP Co de Phone Number [facility]
[address] [place] [address], * (ABNORMAL) D-dimer, Quantitative (11/12/2024 5:17 PM EDT) [facility] D-Dimer, Quantitative 10.36(H) 0.00 - 0.66 MCGFEU/mL 11/12/2024 6:00 PM EDT [facility] Blood Venipuncture / Unknown 11/12/2024 5:17 PM EDT 11/12/2024 5:17 PM EDT Narrative [facility] - 11/12/2024 6:00 PM EDT According to the assay returned materials inspector's published package insert, a normal (<0.50 MCGFEU/mL) D-dimer result in conjunction with a non-high clinical probability assessment, excludes deep vein thrombosis (DVT) and pulmonary embolism (PE) with high sensitivity. D-dimer values increase with age and this can make VTE exclusion of an older population difficult. To address this, the [employer], based on best available [...] ORDERABLES Fin al Result Performing Organization Address City/[facility]/ZIP Co de Phone Number [facility]
[address] [place] [address], * Phosphorus (11/12/2024 5:17 PM EDT) Phosphorus 4.1 2.5 - 4.5 mg/dL 11/12/2024 5:51 PM EDT [facility] Blood Venipuncture / Unknown 11/12/2024 5:17 PM EDT 11/12/2024 5:17 PM EDT us Logan Araujo MD LAB BLOOD ORDERABLES Fin al Result [facility]
[address] [place] [address], * BNP (11/12/2024 5:17 PM EDT) proBNP 247.0 0.0 - 900.0 pg/mL 11/12/2024 5:51 PM EDT [facility] Blood Venipuncture / Unknown 11/12/2024 5:17 PM EDT 11/12/2024 5:17 PM EDT Narrative [facility] - 11/12/2024 5:51 PM EDT This [...] MD LAB BLOOD ORDERABLES Fin al Result [facility]
[address] [place] [address], * Lipase (11/12/2024 5:17 PM EDT) Lipase 20 13 - 60 U/L 11/12/2024 5:51 PM EDT [facility] Blood Venipuncture / Unknown 11/12/2024 5:17 PM EDT 11/12/2024 5:17 PM EDT Logan Araujo MD LAB BLOOD ORDERABLES Fin al Result [facility]
[address] [place] [address], * Lactic Acid, Plasma (11/12/2024 5:17 PM EDT) Lactate 1.6 0.5 - 2.0 mmol/L 11/12/2024 5:49 PM EDT [facility] Comment:Falsely depressed re sults may occur on samples drawn from patients receiving N-Acetylcysteine (NAC) or Metamizole. Blood Venipuncture / Unknown 11/12/2024 5:17 PM EDT 11/12/2024 5:17 PM EDT Logan Araujo MD LAB BLOOD ORDERABLES Fin al Result Performing Organization Address City/[facility]/ZIP Co de Phone Number [facility]
[address] [place] [address], [place] [phone] * Folate (11/12/2024 5:17 PM EDT) Folate [...] ORDERABLES Final Re sult Performing Organization Address [facility] Co de Phone Number [facility]
[address] [place] [address], * (ABNORMAL) Vitamin B12 (11/12/2024 5:17 PM [...] MIRANDA LAB BLOOD ORDERABLES Final Re sult [facility]
[address] [place] [address], * (ABNORMAL) Comprehensive Metabolic Panel (11/12/2024 5:17 PM EDT) Glucose 96 65 - 99 mg/dL 11/12/2024 5:51 PM EDT [facility] BUN 24.7(H) 8.0 - 23.0 mg/dL 11/12/2024 5:51 PM EDT [facility] Creatinine 1.06(H) 0.57 - 1.00 mg/dL 11/12/2024 5:51 PM EDT [facility] Sodium 139 136 - 145 mmol/L 11/12/2024 5:51 PM EDT [facility] Potassium 4.4 3.5 - 5.2 mmol/L 11/12/2024 5:51 PM EDT [facility] Chloride 101 98 - 107 mmol/L 11/12/2024 5:51 PM EDT [facility] CO2 27.9 22.0 - 29.0 mmol/L 11/12/2024 5:51 PM EDT [facility] Calcium 9.1 8.6 - 10.5 mg/dL 11/12/2024 5:51 PM EDT [facility] Total Protein 6.4 6.0 - 8.5 g/dL 11/12/2024 5:51 PM EDT [facility] Albumin 4.0 3.5 - 5.2 g/dL 11/12/2024 5:51 PM EDT [facility] ALT (SGPT) 15 1 - 33 U/L 11/12/2024 5:51 PM EDT [facility] AST (SGOT) 27 1 - 32 U/L 11/12/2024 5:51 PM EDT [facility] Alkaline Phosphatase 113 39 - 117 U/L 11/12/2024 5:51 PM EDT [facility] Total Bilirubin 0.2 0.0 - 1.2 mg/dL 11/12/2024 5:51 PM EDT [facility] Globulin 2.4 gm/dL 11/12/2024 5:51 PM EDT [facility] Comment:Calculated Result A/G Ratio 1.7 g/dL 11/12/2024 5:51 PM EDT [facility] BUN/Creatinine Ratio 23.3 7.0 - 25.0 11/12/2024 5:51 PM EDT [facility] Anion Gap 10.1 5.0 - 15.0 mmol/L 11/12/2024 5:51 PM EDT [facility] eGFR 58.1(L) >60.0 mL/min/1.7 3 11/12/2024 5:51 PM EDT [facility] Blood Venipuncture / Unknown 11/12/2024 5:17 PM EDT 11/12/2024 5:17 PM EDT [facility] - 11/12/2024 5:51 PM [...] MD LAB BLOOD ORDERABLES Fin al Result [facility]
[address] [place] [address], * Mammo screening digital tomosynthesis bilateral (04/06/2015 [...] in patients with adenosis or dense breasts. [employer] For breast cancer detection in asymptomatic women- Age ACR Recommendations 35-40 Baseline Mammogram 40-49 Annual or Biannual Mammogram 50+ Annual Mammogram Annual physical and frequent self breast examination. Patient has been entered into an automatic reminder system. Addendum Reading Radiologist- DIYA GOEL Addendum Releasing Radiologist- DIYA GOEL Addendum Released Date Time- 04/19/15 1550 Addendum Washer Operator- Jaylen BILATERAL SCREENING MAMMOGRAM WITH TOMOSYNTHESIS [...] in patients with adenosis or dense breasts. [employer] For breast cancer detection in asymptomatic women- Age ACR Recommendations 35-40 Baseline Mammogram 40-49 Annual or Biannual Mammogram 50+ Annual Mammogram Annual physical and frequent self breast examination. Patient has been entered into an automatic reminder system. Reading Akash GOEL Releasing Akash GOEL Released Date Time- 04/06/15 1055 Washer Operator- Dave Procedure Note Diya Goel Jr., MD [...] in patients with adenosis or dense breasts. [employer] For breast cancer detection in asymptomatic women- Age ACR Recommendations 35-40 Baseline Mammogram 40-49 Annual or Biannual Mammogram 50+ Annual Mammogram Annual physical and frequent self breast examination. Patient has been entered into an automatic reminder system. Addendum Reading Akash GOEL Addendum Releasing Akash GOEL Addendum Released Date Time- 04/19/15 1550 Addendum Washer Operator- Jaylne BILATERAL SCREENING MAMMOGRAM WITH TOMOSYNTHESIS PNL- CLINICAL [...] in patients with adenosis or dense breasts. [employer] For breast cancer detection in asymptomatic women- Age ACR Recommendations 35-40 Baseline Mammogram 40-49 Annual or Biannual Mammogram 50+ Annual Mammogram Annual physical and frequent self breast examination. Patient has been entered into an automatic reminder system. Reading Radiologist- DIYA GOEL Releasing Radiologist- DIYA GOEL Released Date Time- 04/06/15 8284 Fernando Acosta us Gregorio Mcgee MD [facility] MAMMOGRAPHY ORDERABLES Edite d Result - Final from Last 3 Months or Most Recently Relevant to Health Maintenance Insurance [facility] MEDICARE A & B Advance Directives * CPR (Attempt to Resuscitate) (Latest Code Status on File) Date Activated Date Inactivated Comments 11/13/2024 2:01 AM 11/14/2024 6:43 PM Question Answer Comments Code Status (Patient has no pulse and is not breathing): CPR (Attempt to Resuscitate) Medical Interventions (Patie nt has pulse or is breathing): Full Support Care Teams Systems Support Specialist Relationship Specialty Start Date End Date Sandra Orozco APRN [address] [facility] [address] [facility] [address] [place] [address] PCP - General Internal Medicine 05/11/24
--- OUTSIDE RECORDS SUMMARY | 2025-01-29 11:19 | XMS_ITS | Continuity of Care Document ---
Author Organization [facility], PAIN MEDICINE [address] [place] [address] Care Team Providers Care Power Distribution Engineer Name Role Phone GLADIS DELCID Primary Care [...] 325 mg tablet 2024 025 [facility], [address] [place], [phone], 12/22/2024 11:18:36 hydrocodo ne 7.5 mg-acetam inophen 325 mg tablet 2024 025 [facility], [address] [address] [place], [phone], 12/22/2024 11:18:36 Patient TargetsNo targets recorded. Patient InstructionsNo instructions recorded. Reason for Referral None Reported. Problems Name Problem SNOMED Code Status Onset Date Resolution Date Notes Provider Name and Address Organization Details Recorded Time Low back pain 955891074 Active Status: Active Not Available [facility] 7 06:47:46 Disorder of bone and articular cartilage 114761902 Active 2015 Status: Active Not Available [facility] 6 05:37:02 Lumbosacr al radiculop athy 4640474 Active 2015 From Automated Load;Provi boris: Emeka Fernández;St atus: Active Not Available [facility] 7 08:30:56 Problem Notes None recorded. Procedures Surgical History Date Name Laterality Status Provider Name and Address Organization Details Recorded Time 04/10/19 25 Date of Last Mammogram completed Amira Hogan [facility] 05/04/2024 14:53:23 tonsillectomy completed [facility] Valerie [facility] 06/29/2021 11:07:23 partial hysterectomy completed Kailey Valerie [facility] 06/29/2021 11:07:41 cholecystectomy completed Kailey [facility] 06/29/2021 11:07:49 Unlisted px accessory sinus completed Kailey [facility] 06/29/2021 11:08:12 Unlisted px phrnx adnd/tnsl completed Kailey [facility] 06/29/2021 11:08:24 procedure on vein completed [facility] Valerie Arroyo [facility] 06/29/2021 11:08:40 Appendectomy completed Amiradary Hogan [facility] 05/04/2024 14:53:09 Imaging Results None recorded. Procedure Notes None recorded. Medical Equipment None Reported. Allergies Allergen ID Allergen Name Allergen Category Reaction Reaction Severity Criticality Documentation Date Start Date Code Code System Note Provider Name and Address Organization Details Recorded Time 902923 Cipro medicatio n Not available Not available Not available 02/02/20162011 22033 3 RxNorm Comme nt: Creat ed By: Storm Bonner;C reate d Date: 2011 10:08 :22 AM; Not Available [facility] 6 12:52:49 854140 Celebrex medicatio n Not available Not available Not available 02/03/20162011 50644 7 RxNorm Comme nt: Creat ed By: Storm Bonner;C reate d Date: 2011 10:08 :34 AM; Not Available [facility] 6 05:46:24 779511 Levaquin medicatio n Not available Not available Not available 02/03/20162011 59216 2 RxNorm Comme nt: Creat ed By: Storm Bonner;C reate d Date: 2011 10:07 :37 AM; Not Available [facility] 6 08:06:37 397985 Macrobid medicatio n Not available Not available Not available 02/03/20162011 12633 1 RxNorm Comme nt: Creat ed By: Storm Bonner;C reate d Date: 2011 10:08 :04 AM; Not Available [facility] 6 08:06:37 662957 Product containin g penicilli n (product) medicatio n Not available Not available Not available 06/29/2021 67669 8001 SNOMED Kailey Valerie null, [facility] 2 11:02:22 838202 gabapenti n medicatio n Not available Not available Not available 06/29/2021 75293 RxNorm Kailey Valerie null, [facility] 2 11:02:39 219809 leflunomi de medicatio n Not available Not available Not available 06/29/2021 47465 RxNorm Kailey Valerie null, [facility] 2 11:02:54 601089 Naprosyn medicatio n Not available Not available Not available 06/29/202120291 2 RxNorm Kailey Valerie [facility] 2 11:03:06 113887 dextromet horphan hydrobrom mónica medicatio n Not available Not available Not available 05/04/2024 45817 0 RxNorm Amira Hogan [facility] 5 15:09:56 219673 Omnicef medicatio n Not available Not available Not available 05/04/2024 03049 RxNorm Amira Hogan [facility] 5 15:10:19 031778 nortripty line medicatio n Not available Not available Not available 05/04/2024 7531 RxNorm Amira Hogan [facility] 5 15:10:37 255300 Lyrica medicatio n Not available Not available Not available 05/04/2024 44667 1 RxNorm Amira Hogan [facility] 5 15:10:45 Medications Name Sig Start [...] Last Updated DateTime 152.4 cm 35 kg/m2 11837.0 3 g 9 90 % 2 L/min 73.02 /min 118/64 mm[Hg] Blanca Gannon [facility] 10:50:52 Social History Question Answer Notes LastModified by Organizat ion Details LastModified Time Tobacco Smoking Status Former Smoker Blanca Gannon [facility] 11/19/2023 14:27:06 What Was The Date [...] 06/29/2021 Are you currently employed? No disabled [place] [address] Information not available 05/04/2024 Mental Status None recorded. Family History Relationship Description Onset Age of this Age Resolved Age Notes LastModified by Organization Details LastModified Time Unspecified Relation Malignant neoplastic disease [email or web address] Not available 04/12 14:49:35 Unspecified Relation Diabetes mellitus [email or web address] Not available 04/12 14:49:35 Mother Familial cancer of breast Not available 04/12 14:49:35 Mother Malignant neoplasm of pancreas Not available 2024 14:51:13 Mother Chronic obstructive pulmonary disease [email or web address] Not available 2024 14:51:40 Father Hypercholest erolemia [email or web address] Not available 2024 14:51:58 Medical History Condition [...] Liver Disease N Osteoporosis/Osteopenia Y Heart Attack ([place]) N Mental Illness Y Diabetes N Ovarian [...] ICD10 Code Diagnosis IMO Codes Diagnosis Note [id number] RAOUL KINSEY MD [facility] [address] [place] [address] 12/22/2024 10:37:41 12/22/2024 10:59:26 Chronic low back pain 672701740 M54.50 Degenerati on of lumbar intervertebral disc 69014175 M51.362 Spinal hilda nosis of lumbar region 91251220 M48.062 Health Concerns Section Related Observation LastModified by Organization Detai ls LastModified Time None Recorded Concern Status LastModified by Organization Details LastModified Time None Recorded Payers Encounter Date Sequence Insurance Name Policy Number Policy Sanchez Covered Member ID Sanchez Member ID Guarantor Name 12/22/2024 1 [place] Casi Cruz [id number] Casi Cruz 12/22/2024 2 COMBINED INS[employer]ANCE - [employer] (MEDICARE SUPPLEMENT) Casi Cruz [id number] Casi Cruz Notes Date Note Type Note [...] 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 She states she does take an hhyf-tko-clymzmr stool softener/laxative. She states she has been [...] s visit.Etoh-Denied. Tobacco-Denied. CBD-Denied. RAOUL KINSEY MD [facility] [place], [address], [facility] 12/22/2024 13:29:43 OBGyn Episode No OBEpisode recorded.
--- OUTSIDE RECORDS SUMMARY | 2025-01-29 11:19 | XMS_ITS | Data Portability ---
Author Organization [facility] - Clint Frye MD [facility] Address [address] [place] [id number] Care Team Providers Care Interpreter Translator Name Role Phone GLADIS DELCID Primary Care [...] to mix with alcohol, or self-escalate it. [email or web address] Not available 12/10/2021 19:02:32 Plan of Treatment Reminders Order Date Submit Date Provider Last Modified By Organization Details Last Modified Time Details Appointments None recorded. Lab None recorded. Referral None recorded. Procedures None recorded. Surgeries None recorded. Imaging None recorded. Medication Orders [place] 10 mg-325 mg tablet 2021 022 [facility], [facility] [address] [place], [id number], 17:21:53 tizanidine 2 mg tablet 2021 022 [facility], [address] [facility] [address] [place], [id number], 16:55:31 Patient TargetsNo targets recorded. Patient Instructions Encounter Date Encounter Id Patient Instructions Last Modified By Organization Details Last Modified Time 12/06/2021 [id number] Patient is to us e non-pharmacologic measures for mild pain and use opioid as needed only for moderate pain, to use before pain is severe to be most effective. patient is to try heat, ice, rest, repositioning, tens, massage, stretching, walking, and meditation prior to opioid use. [email or web address] Not available 12/10/2021 19:03:33 Patient seen today incident to a physician s previously established diagnosis and plan of care. Follow-up care provided today under the plan of care of: Aaliyah Olson MD and supervision of: Aaliyah Olson MD. [email or web address] Not available 12/10/2021 19:03:54 Reason for Referral None Reported. Problems Name Problem SNOMED Code Status Onset Date Resolution Date Notes Provider Name and Address Organization Details Recorded Time Chronic pain 50284601 Active 2020 (G89.29)O ther chronic pain Not Available [facility] 2 22:51:15 Spondylos is without myelopath y 63359847 Active 2020 (M47.816) Spondylos is without myelopath y or radiculop athy, lumbar region Not Available [facility] 2 22:51:15 Lumbosacr al spondylos is without myelopath y 04331689 Active 2020 (M47.817) Spondylos is without myelopath y or radiculop athy, lumbosacr al region Not Available [facility] 2 22:51:15 Degenerat ion of lumbosacr al intervert ebral disc 72572338 Active 2020 (M51.37)O ther intervert ebral disc degenerat ion, lumbosacr al region Not Available [facility] 2 22:51:15 Lumbosacr al radiculop athy 4986753 Active 2020 (M54.17)R adiculopa thy, lumbosacr al region Not Available [facility] 2 22:51:15 Muscle pain 49227299 Active 2020 (M79.1)My algia Not Available [facility] 2 22:51:15 Pre-surge ry testing Active 2020 (Z01.812) Encounter for preproced ural laborator y examinati on Not Available [facility] 2 22:51:16 Opioid dependenc e 16878541 Active 2020 (F11.20)O pioid dependenc e, uncomplic ated Not Available [facility] 2 22:51:15 Long-term current use of opiate analgesic drug 37270199830 4108 Active 2020 (Z79.891) 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 2 16:53:49 Problem Notes None recorded. Medical Equipment None Reported. Allergies Allergen ID Allergen Name Allergen Category Reaction Reaction Severity Criticality Documentation Date Start Date Code Code System Note Provider Name and Address Organization Details Recorded Time 12460 Celebrex medicatio n Not available Not available Not available 07/11/20212020 76527 7 RxNorm React ion: Blood in stool s(Mil d) Not Available [facility] 2 22:02:48 05321 leflunomi de Not available Not available Not available Not available 07/11/20212020 75302 RxNorm React ion: reall y bad sores (Mild ) Not Available [facility] 2 22:02:48 69521 Penicilli n Not available itching mild Not available 07/11/20212020 47986 RxNorm Not Available [facility] 2 22:02:48 65762 gabapenti n medicatio n Not available Not available Not available 07/11/20212020 62969 RxNorm React ion: BAD swell ing(M ild) Not Available [facility] 2 22:02:48 06169 nortripty line hydrochlo ride medicatio n Not available Not available Not available 07/11/2021202013 0 RxNorm Not Available [facility] 2 22:02:48 65189 Naprosyn medicatio n Not available Not available Not available 07/11/20212020 2 RxNorm React ion: throa t clos ed (M ild) Not Available [facility] 2 22:02:48 50692 Macrobid medicatio n Not available Not available Not available 07/11/20212020 61248 1 RxNorm React ion: hives and itchi ng(Mi ld) Not Available [facility] 2 22:02:48 Medications Name Sig Start [...] Rapid test - PLease FAX results to [phone] DX Z01.812 2021 active Not Available Not Available Not Avai lable Vitals Date Recorded Body height Body mass index (BMI) Body weight Body temperature Heart rate Oxygen saturation Systolic And Diastolic Provider Name and Address Organization Details Last Updated DateTime 2 152.4 cm 28.1 kg/m2 15088.3 g 98.9 [degF] 62 /min 97 % 101/69 mm[Hg] Barb FRYE M.D., [...] ICD10 Code Diagnosis IMO Codes Diagnosis Note [id number] Claribel Ramsay, DOBIE MAN [address] [facility] [address] [place] [address] 12/06/2021 16:00:41 12/07/2021 16:37:14 Long-term current use of opiate analgesic drug 9150796765 62252 Z79.891 Patient is noted to be low risk for opioids due to: previous hx of compliance UDS reviewed on and is Appropriat e all previous MOHSEN reviewed and is Appropriat e Opioid dependence 196487 00 F11.20 Medication compliance : According to [...] follows none Lumbosacra l spondylosis with radiculopathy 723399234 M47.27 patient says she is able to usually make this this Rx last about 2 month is using only prn would like to come back in 2 months Spasm of back muscles 20 1989212 M62.830 stable with meds, no changes Health Concerns Section Related Observation LastModified by Organization Detai ls LastModified Time None Recorded Concern Status LastModified by Organization Details LastModified Time None Recorded Advance Directives Directive None Recorded Payers Insurance Date Sequence Insurance Name Policy Number Policy Sanchez Covered Member ID Sanchez Member ID Guarantor Name 12/06/2021 1 [place] Casi Cruz [id number] Casi Cruz 12/06/2021 2 [employer]BINED INSURANCE - [employer] (MEDICARE SUPPLEMENT) Casi Cruz [id number] Casi Cruz Notes Date Note Type Note [...]
[2025-01-29 11:37] VITALS: BP 115/67; PULSE 69; RESP 20; TEMP 36.3; O2SAT 95
[2025-01-29] MEDS: DENOSUMAB 60 MG/ML SYRINGE SUBCUT (11:37)
== END 2025-01-29 23:59 | disposition home or self-care (01) ==
LOC: INF 11:17
PROVIDERS: PCP Nurse Practitioner Family; Visit Provider Nurse Practitioner Family
DX: M85.80 Other specified disorders of bone density and structure, unspecified site (principal)
CPT/HCPCS: 96372; J0897

== ENCOUNTER 2025-02-10 11:13 | Outpatient (CLI) | payer MEDICARE, OTHER, SELFPAY ==
--- OUTSIDE RECORDS SUMMARY | 2024-11-26 10:00 | XMS_ITS | Encounter Summary ---
Author Organization [facility] ystem Address [address] [place] [address] Care Team Providers Care Admitting Interviewer Name Role Phone Sandra Orozco APRN Primary Care Provider Reason for Visit * Reason Comments Shortness of Breath Encounter Details Date Type Department Care Team (Latest Contact Info) Description 11/26/2024 11:00 AM EDT Office Visit [facility] CARDIOLOGY [address] [facility] [address], [place] [address] Dina Solano APRN [address] [place] [address] Paroxysmal atrial fibrillation (Primary Dx); History of CVA (cerebrovascular accident); Chronic respiratory failure with hypoxia; Hyperlipidemia LDL goal <55; Prediabetes; Anemia, unspecified type; Chronic venous insufficiency of lower extremity; Chronic obstructive pulmonary disease, unspecified COPD type Social History Tobacco Use Types Packs/Day Years Used Date Smoking Tobacco: Former Cigarettes 2 45 Q uit: 05/10/2023 Smokeless Tobacco: Never Comments:Liked to smoke Alcohol Use Standard Drinks/Week Comments Not Currently 0 (1 standard drink = 0.6 oz pur e alcohol) former [facility] Utilities Answer Date Recorded In the past 12 months has [employer] electric, gas, oil, or water company threatened [...] care, and heating? Not very hard 11/13/2024 [facility] of Occupat ional Health - Occupational Stress [...] GED or equivalent No 11/13/2024 Preferred Language Icelandic 11/13/2024 PHQ-2 Answer Date Recorded Patient Health [...] Sign Reading Time Taken Comments Blood Pressure 137/78 11/26/2024 10:27 AM EDT Pulse 78 11/26/2024 10:27 AM EDT Temperature - - Respiratory Rate - - Oxygen Saturation - - Inhaled Oxygen Concentration - - Weight 83.9 kg (185 lb) 11/26/2024 10:27 AM EDT Height 152.4 cm (5') 11/26/2024 10:27 AM EDT Body Mass Index 36.13 11/26/2024 10:27 AM EDT documented in this encounter Progress Notes * Dina Solano APRN - 11/26/2024 11:00 AM EDTAssociated Problem(s): Paroxysmal atrial fibrillation [id number] Continue Xarelto 15 mg p.o. daily Continue bisoprolol 5 mg p.o. daily Orders: Comprehensive Metabolic Panel; Future Comprehensive Metabolic Panel; Future * Dina Solano APRN - 11/26/2024 11:00 AM EDTAssociated Problem(s): History of CVA (cerebrovascular accident) Continue Xarelto 15 mg p.o. daily Orders: Comprehensive Metabolic Panel; Future * Dina Solano APRN - 11/26/2024 11:00 AM EDTAssociated Problem(s): Hyperlipidemia LDL goal <55 History of statin intolerance Consider Repatha Orders: Lipid Panel; Future Lipoprotein A (LPA); Future High Sensitivity CRP; Future Lipid Panel; Future * Dina Solano APRN - 11/26/2024 11:00 AM EDTAssociated Problem(s): Respiratory failure with hypoxia Continue follow-up with pulmonary provider * Dina Solano APRN - 11/26/2024 11:00 AM EDTAssociated Problem(s): Anemia Insurance pending iron infusions Orders: CBC & Differential; Future * Dina Solano APRN - 11/26/2024 11:00 AM EDTAssociated Problem(s): Chronic venous insufficiency of lower extremity Compression hose, leg elevation, exercise and weight loss * Dina Solano APRN - 11/26/2024 11:00 AM EDTAssociated Problem(s): COPD (chronic obstructive pulmonary disease) Continue follow-up with pulmonary * Naman Harrington RegSched Rep - 11/26/2024 11:00 AM EDTAddended by: NAMAN HARRINGTON on: 02/10/2025 10:04 AM Modules accepted: Orders * Dina Solano APRN - 11/26/2024 11:00 AM EDT Images from the original note were not included. Cardiology Established Patient Note Name: Casi Anthony : 1960 PCP: Sandra Orozco APRN Date: 11/26/2024 Department: Min[facility] C[facility]IOLOG[facility] [address] [facility] [address] [facility] [address] Chief Complaint: Chief Complaint Patient presents with Shortness of Breath Problem list: Paroxysmal atrial fibrillation/History of ischemic CVA/TIAs status post loop explant [id number] (Female, Age, CVA, PAD) PAF noted on loop from 2019 2. Moderate AR 2D echo 01/2023 EF 55% moderate aortic valve regurgitation Cardiac PET 04/15/2020 summed stress score 0 summed difference score 0 no ischemia 3. Hyperlipidemia 4. Claudication Abdominal duplex 10/2022 diffuse plaque noted in [...] cath closure, incidental finding of interstitial edema. 6. Chronic respiratory failure requiring constant oxygen supplementation 7. COPD Subjective History of Present Illness Casi Cruz is a 64 y.o. female who presents today for follow-up post hospital admission patientwas recently admitted for acute HFpEF, acute on chronic hypoxic respiratory failure. History of Present Illness She was recently hospitalized for 2 nights acute hypoxic respiratory failure and concern for CHF. Hemoglobin levels were found to be low during her hospital stay, prompting a repeat test on 11/23/2024. She reports no known bleeding or chest pain. Currently, she is on 2 liters of oxygen, an increasefrom her usual 1 liter prior to admission. She continues to see her health companion and has a follow-up appointment scheduled. She is on blood thinners and reports no bleeding. An echocardiogram was performed upon her discharge on 11/13/2024, revealing aortic valve sclerosis without stenosis, normal EF. She has been aware of a heart murmur for several years. She has a history of intolerance to statin medications and Repatha. From cardiac standpoint patient reports she is improved, does complain of fatigue which she expresses concern over her anemia, hoping this will resolve once patient is approved for infusions. The following data was reviewed by: Dina Solano APRN on 11/26/2024: Lab Results Component Value Date GLUCOSE 100 (H) 11/13/2024 BUN 19.7 11/13/2024 CREATININE 0.93 11/13/2024 BCR 21.2 11/13/2024 K 3.8 11/13/2024 CO2 31.1 (H) 11/13/2024 CALCIUM 8.6 11/13/2024 ALBUMIN 4.0 11/12/2024 AST 27 11/12/2024 ALT 15 11/12/2024 No results found for: CHOL , CHLPL , TRIG , HDL , LDL , LDLDIRECT Lab Results Component Value Date WBC 5.41 11/13/2024 RBC 3.89 11/13/2024 HGB 8.1 (L) 11/13/2024 HCT 40.7 11/13/2024 HCT 29.1 (L) 11/13/2024 MCV 74.8 (L) 11/13/2024 PLT 227 11/13/2024 Lab Results Component Value Date TSH 2.770 11/13/2024 Lab Results Component Value Date HGBA1C 5.84 (H) 11/13/2024 No results found for: LPACHOL No results found for: MICROALBUR Objective Vital Signs: BP 137/78 (BP Location: Right arm, Patient Position: Sitting, Cuff Size: Adult) Pulse 78 Ht 152.4 cm (60 ) Wt 83.9 kg (185 lb) BMI 36.13 kg/m?? Estimated body mass index is 36.13 kg/m?? as calculated from the following: Height as of this encounter: 152.4 cm (60 ). Weight as of this encounter: 83.9 kg (185 lb). Constitutional: Appearance: Healthy appearance. Eyes: Pupils: Pupils are equal, round, and reactive to light. Pulmonary: Effort: Pulmonary effort is normal. Breath sounds: Normal breath sounds. Cardiovascular: Normal rate. Regular rhythm. Murmurs: There is a systolic murmur. Pulses: Intact distal pulses. Edema: Feet: bilateral trace edema of the feet. Abdominal: General: Bowel sounds are normal. Skin: General: Skin is warm and dry. Neurological: General: No focal deficit present. Assessment and Plan Assessment & Plan Paroxysmal atrial fibrillation [id number] Continue Xarelto 15 mg p.o. daily Continue bisoprolol 5 mg p.o. daily Orders: Comprehensive Metabolic Panel; Future Comprehensive Metabolic Panel; Future History of CVA (cerebrovascular accident) Continue Xarelto 15 mg p.o. daily Orders: Comprehensive Metabolic Panel; Future Chronic respiratory failure with hypoxia Continue follow-up with pulmonary provider Hyperlipidemia LDL goal <55 History of statin intolerance Consider Repatha Orders: Lipid Panel; Future Lipoprotein A (LPA); Future High Sensitivity CRP; Future Lipid Panel; Future Prediabetes Orders: Hemoglobin A1c; Future Anemia, unspecified type Insurance pending iron infusions Orders: CBC & Differential; Future Chronic venous insufficiency of lower extremity Compression hose, leg elevation, exercise and weight loss Chronic obstructive pulmonary disease, unspecified COPD type Continue follow-up with pulmonary Follow Up Return in about 3 months (around 02/25/2025). Patient or patient installation service representative verbalized consent for the use of Ambient Listening during the visit with Dina Solano APRN for chart documentation. 11/26/2024 10:42 EDT Dina Solano APRN [facility] Cardiology documented in this encounter Plan of Treatment Upcoming Encounters Date Type Department Care Team (Late st Contact Info) Description 02/16/2025 11:00 AM EST Office Visit [facility] C[facility]IOLOGY [address] [facility] [address] [place] [id number] Dina Solano APRN [address] [place] [address] Scheduled Orders Name Type Priority Associated Diagnoses Orde r Schedule Comprehensive Metabolic Panel Lab Routine Paroxysmal atrial fibrillation Expected: 12/01/2024 (Approximate), Expires: 11/26/2025 CBC & Differential Lab Panel Routine Anemia, unspecified type Expected: 02/25/2025 (Approximate), Expires: 11/26/2025 Comprehensive Metabolic Panel Lab Routine Paroxysmal atrial fibrillation History of CVA (cerebrovascular accident) Expected: 02/25/2025 (Approximate), Expires: 11/26/2025 Hemoglobin A1c Lab Routine Prediabetes Expected: 12/01/2024 (Approximate), Expires: 11/26/2025 High Sensitivity CRP Lab Routine Hyperlipidemia LDL goal <55 Expected: 12/26/2024 (Approximate), Expires: 11/26/2025 Lipoprotein A (LPA) Lab Routine Hyperlipidemia LDL goal <55 Expected: 12/26/2024 (Approximate), Expires: 11/26/2025 Lipid Panel Lab Routine Hyperlipidemia LDL goal <55 Expected: 12/01/2024 (Approximate), Expires: 11/26/2025 documented as of this encounter Procedures Procedure Name Priority Date/Time Associated Diagnosis Comments LIPID PANEL Routine 12/01/2024 Hyperlipidemia LDL goal <55 documented in this encounter Results * Lipid Panel (12/01/2024) Blood us Dina Solano APRN LAB BLOOD ORDERABLES Final Re sult [facility]
[address] [place] [address], documented in this encounter Visit Diagnoses Diagnosis Paroxysmal atrial fibrillation- Primary Atrial fibrillation History of CVA (cerebrovascular accident) Transient ischemic attack (TIA), and cerebral infarction without residual deficits Chronic respiratory failure with hypoxia Hyperlipidemia LDL goal <55 Prediabetes Other abnormal glucose Anemia, unspecified type Chronic venous insufficiency of lower extremity Chronic obstructive pulmonary disease, unspecified COPD type Paroxysmal atrial fibrillation- Primary Atrial fibrillation Moderate aortic valve regurgitation Hyperlipidemia LDL goal <55 Chronic venous insufficiency of lower extremity Chronic respiratory failure with hypoxia Chronic obstructive pulmonary disease, unspecified COPD type documented in this encounter Care Teams Admitting Interviewer Relationship Specialty Start Date End Date Sandra Orozco APRN [address] [place] [address] PCP - General Internal Medicine 05/11/24 documented as of this encounter
--- OUTSIDE RECORDS SUMMARY | 2025-02-10 11:25 | XMS_ITS | Clinical Summary ---
[facility] Address [address] [place] [address] Care Team Providers Care Abrasive Sawyer Name Role Phone Sandra Orozco APRN Primary Care Provider [phone] Allergies Active Allergy Reactions Criticality Noted Date [...] all over Nortriptyline Swelling Low 04/15/2024 Poison Carlisle Extract Hives,Itching,Swell ing,Rash Low 04/15/2024 Poison oak/poison [...] of breath and lower extremity edema. Her tire specialist was concerned about heart failure and advised [...] Assessment & Plan (11/26/2024 2:20 PM EDT): [id number] Continue Xarelto 15 mg p.o. daily Continue [...] Assessment & Plan (07/16/2024 12:10 PM EDT): [id number] Continue Xarelto 15 mg p.o. daily, [...] Encounters Date Type Department Care Team Description 02/10/2025 Telephone [facility] [address] [facility] [address], [place] [address] Dina Solano APRN [facility] - LAB ORDERS 01/06/2025 Telephone [facility] [address] [facility] [address], [place] [address] Dina Solano APRN 11/30/2024 Readmission Management [facility] [address] [place] [address] Christiano Gresham RN 11/26/2024 11:00 AM EDT Office Visit [facility] [address] [place], [place] [phone] Dina Solano APRN Paroxysmal atrial fibrillation (Primary Dx); History of CVA (cerebrovascular accident); Chronic respiratory failure with hypoxia; Hyperlipidemia LDL goal <55; Prediabetes; Anemia, unspecified type; Chronic venous insufficiency of lower extremity; Chronic obstructive pulmonary disease, unspecified COPD type 11/26/2024 Travel 11/23/2024 Readmission Management [facility] [address] [place] [address] Kaykay Farrar RN 11/16/2024 Readmission Management [facility] [address] [place] [address] Omaira Knapp RN 11/12/2024 9:36 PM EDT - 11/14/2024 4:38 PM EDT Hospital Encounter [address] [place] [address] Logan Araujo MD Butler, Jennifer, MD Barbato, Hayley R, DO West, Christopher R, MD Referred by health career services coordinator (Primary Dx); Dyspnea on exertion; Chronic respiratory failure with hypoxia, on home O2 therapy; SMOOTH (obstructive sleep apnea); Elevated troponin; Moderate aortic valve regurgitation Discharge Disposition: Home or Self Care 11/12/2024 12:30 PM EDT Office Visit [facility] [address] [facility] [address] [place] [address] Dina Solano APRN Shortness of breath (Primary Dx); Generalized edema; Chronic respiratory failure with hypoxia; Paroxysmal atrial fibrillation; History of CVA (cerebrovascular accident); Moderate aortic valve regurgitation; Peripheral arterial disease 11/12/2024 Patient rounding ([facility] only) [facility] [address] [facility] [address] [place] [address] Dina Solano APRN 11/12/2024 Travel from Last 3 Months Family History Medical History Relation Name Comments Hyperlipidemia Father Stanislaw Hypertension Father Stanislaw Anemia Mother Kera Shukla Arrhythmia Mother Kera Shukla Anemia Asthma Mother Kerajennifer Shukla Coronary [...] = 0.6 oz pur e alcohol) former [facility] Utilities Answer Date Recorded In the past 12 months has e electric, gas, oil, or water [employer] threatened to shut off services in your [...] care, and heating? Not very hard 11/13/2024 [facility] of Occupat ional Health - Occupational Stress [...] GED or equivalent No 11/13/2024 Preferred Language Maltese 11/13/2024 PHQ-2 Answer Date Recorded Patient Health [...] Description 02/16/2025 11:00 AM EST Office Visit [facility] [address] [facility] [address], [place] [address] Dina Solano APRN [address] [facility] [address] [place] [address] Health Maintenance Due Date Last Done Comments [...] LIPID PANEL 12/01/2025 12/01/2024, 07/06/2024 TDAP/TD VACCINES (3 - Td or Tdap) 11/09/2027 11/08/2017, [...] EDT RESPIRATORY PANEL PCR W/ COVID-19 (SARS-COV-2), RANGE MASTER SWAB IN UTM/VTP, 2 HR TAT Routine 11/13/2024 3:26 AM EDT BLOOD GAS, VENOUS W/CO-OXIMETRY STAT 11/12/2024 11:[address] ANGIOGRAM CHEST PULMONARY EMBOLISM STAT 11/12/2024 7:46 PM EDT COVID-19/FLUA&B/RSV, RANGE MASTER SWAB IN TRANSPORT MEDIA 1 HR TAT [...] APRN LAB BLOOD ORDERABLES Final Re sult [facility]
[address] [place] [address], * ECHO COMPLETE W/ DOPPLER AND COLOR [...] - 10.80 10*3/mm3 11/13/2024 12:36 PM EDT [facility] RBC 3.89 3.77 - 5.28 10*6/mm3 11/13/2024 12:36 PM EDT [facility] Hemoglobin 8.1(L) 12.0 - 15.9 g/dL 11/13/2024 12:36 PM EDT [facility] Hematocrit 29.1(L) 34.0 - 46.6 % 11/13/2024 12:36 PM EDT [facility] MCV 74.8(L) 79.0 - 97.0 fL 11/13/2024 12:36 PM EDT [facility] MCH 20.8(L) 26.6 - 33.0 pg 11/13/2024 12:36 PM EDT [facility] MCHC 27.8(L) 31.5 - 35.7 g/dL 11/13/2024 12:36 PM EDT [facility] RDW 19.0(H) 12.3 - 15.4 % 11/13/2024 12:36 PM EDT [facility] RDW-SD 51.3 37.0 - 54.0 fl 11/13/2024 12:36 PM EDT [facility] MPV 9.8 6.0 - 12.0 fL 11/13/2024 12:36 PM EDT [facility] Platelets 227 140 - 450 10*3/mm3 11/13/2024 12:36 PM EDT [facility] Neutrophil % 63.6 42.7 - 76.0 % 11/13/2024 12:36 PM T [facility] Lymphocyte % 23.3 19.6 - 45.3 % 11/13/2024 12:36 PM EDT [facility] Monocyte % 8.9 5.0 - 12.0 % 11/13/2024 12:36 PM T [facility] Eosinophil % 2.8 0.3 - 6.2 % 11/13/2024 12:36 PM [facility] Basophil % 0.7 0.0 - 1.5 % 11/13/2024 12:36 PM [facility] Immature Grans % 0.7(H) 0.0 - 0.5 % 11/13/2024 12:36 PM [facility] Neutrophils, Absolute 3.44 1.70 - 7.00 10*3/mm3 11/13/2024 12:36 PM T [facility] Lymphocytes, Absolute 1.26 0.70 - 3.10 10*3/mm3 11/13/2024 12:36 PM [facility] Monocytes, Absolute 0.48 0.10 - 0.90 10*3/mm3 11/13[facility]24 [facility] Eosinophils, Absolute 0.15 0.00 - 0.40 10*3/mm3 11/13/2024 12:36 PM T [facility] Basophils, Absolute 0.04 0.00 - 0.20 10*3/mm3 11/13/2024 12:36 PM [facility] Immature Grans, Absolute 0.04 0.00 - 0.05 10*3/mm3 11/13/2024 12:36 PM T [facility] nRBC 0.0 0.0 - 0.2 /100 WBC 11/13/2024 12:36 PM EDT [facility] Blood Venipuncture / Unknown 11/13/2024 12:07 PM EDT 11/13/2024 12:26 PM EDT Aaliyah Jha APRN LAB BLOOD ORDERABLES Final Re sult Performing Organization Address City/[facility]/ZIP Co de Phone Number [facility]
[address] [place] [address], * (ABNORMAL) Reticulocytes (11/13/2024 12:07 PM EDT) Reticulocyte % 2.78(H) 0.70 - 1.90 % 11/13/2024 12:32 PM EDT [facility] Reticulocyte Absolute 0.1081 0.0200 - 0.1300 10*6/mm3 11/13/2024 12:32 PM EDT [facility] Blood Venipuncture / Unknown 11/13/2024 12:07 PM EDT 11/13/2024 12:26 PM EDT Aaliyah Jha APRN LAB BLOOD ORDERABLES Final Re sult Performing Organization Address [facility] Co de Phone Number [facility]
[address] [place] [address], * TSH (11/13/2024 12:07 PM EDT) TSH 2.770 0.270 - 4.200 uIU/mL 11/13/2024 12:56 PM EDT [facility] Blood Venipuncture / Unknown 11/13/2024 12:07 PM EDT 11/13/2024 12:26 PM EDT Aaliyah Jha APRN LAB BLOOD ORDERABLES Final Re sult Performing Organization Address City/[facility]/ZIP Co de Phone Number [facility]
[address] [place] [address], * Magnesium (11/13/2024 12:07 PM EDT) Only the most recent of2 resultswithin the time period is included. Pathologist [facility] Magnesium 1.9 1.6 - 2.4 mg/dL 11/13/2024 12:56 PM EDT [facility] Blood Venipuncture / Unknown 11/13/2024 12:07 PM EDT 11/13/2024 12:26 PM EDT Aaliyah Jha APRN LAB BLOOD ORDERABLES Final Re sult [facility]
[address] [place] [address], * (ABNORMAL) Hemoglobin A1c (11/13/2024 12:07 PM EDT) [facility] Hemoglobin A1C 5.84(H) 4.80 - 5.60 % 11/13/2024 1:23 PM EDT [facility] Blood Venipuncture / Unknown 11/13/2024 12:07 PM EDT 11/13/2024 12:26 PM EDT Narrative [facility] - 11/13/2024 1:23 PM EDT Hemoglobin A1C Ranges: Increased Risk for Diabetes 5.7% to 6.4% Diabetes >= 6.5% Diabetic Goal < 7.0% Aaliyah Jha APRN LAB BLOOD ORDERABLES Final Re sult [facility]
[address] [place] [address], * Folate RBC (11/13/2024 12:07 PM EDT) Pathologist [facility] Folate, Hemolysate 538.0 Not Estab. ng/mL 11/16/2024 9:09 AM EDT [facility] Hematocrit 40.7 34.0 - 46.6 % 11/16/2024 9:09 AM EDT [facility] RBC Folate 1322 >498 ng/mL 11/16/2024 9:09 AM EDT [facility] Blood Venipuncture / Unknown 11/13/2024 12:07 PM EDT 11/13/2024 12:26 PM EDT Narrative [facility] - 11/16/2024 9:09 AM EDT Performed at: 01 - [address] [id number] [employer] Food Server: Gomez Crooks PhD, Phone: [phone] us Aaliyah Jha APRN LAB BLOOD ORDERABLES Edited R esult - Final [facility] [address] [place] [id number], * (ABNORMAL) Basic Metabolic Panel (11/13/2024 12:07 PM EDT) Glucose 100(H) 65 - 99 mg/dL 11/13/2024 12:56 PM EDT [facility] BUN 19.7 8.0 - 23.0 mg/dL 11/13/2024 12:56 PM EDT [facility] Creatinine 0.93 0.57 - 1.00 mg/dL 11/13/2024 12:56 PM EDT [facility] Sodium 143 136 - 145 mmol/L 11/13/2024 12:56 PM EDT [facility] Potassium 3.8 3.5 - 5.2 mmol/L 11/13/2024 12:56 PM EDT [facility] Chloride 102 98 - 107 mmol/L 11/13/2024 12:56 PM EDT [facility] CO2 31.1(H) 22.0 - 29.0 mmol/L 11/13/2024 12:56 PM EDT [facility] Calcium 8.6 8.6 - 10.5 mg/dL 11/13/2024 12:56 PM EDT [facility] BUN/Creatinine Ratio 21.2 7.0 - 25.0 11/13/2024 12:56 PM EDT [facility] Anion Gap 9.9 5.0 - 15.0 mmol/L 11/13/2024 12:56 PM EDT [facility] eGFR 67.9 >60.0 mL/min/1.7 3 11/13/2024 12:56 PM EDT [facility] Blood Venipuncture / Unknown 11/13/2024 12:07 PM EDT 11/13/2024 12:26 PM EDT Narrative [facility] - 11/13/2024 12:56 PM EDT [...] Final Re sult [facility]
[address] [place] [address], * Duplex Venous Lower Extremity - Bilateral [...] the time period is included. Pathologist [facility] QT Interval 410 ms ECG QTC Interval [...] change was found Confirmed by ABDULLAHI HENDRICKSON ([id number]) on 11/13/2024 7:39:07 PM Referred By: Confirmed [...] change was found Confirmed by ABDULLAHI HENDRICKSON ([id number]) on 11/13/2024 7:39:07 PM Referred By: Confirmed By: ABDULLAHI HENDRICKSON Aaliyah Jha APRN ECG ORDERABLES Final Result [facility] ECG * Respiratory Panel PCR w/COVID-19(SARS-CoV-2) SIDRA/CHECO/SAUD/PAD/COR/ERIC In-House, RANGE MASTER Swab in UTM/VTM, 2 HR TAT - Swab, Nasopharynx (11/13/2024 3:26 AM EDT) ADENOVIRUS, PCR Not Detected Not Detected [facility]IO[facility]RE [facility] 11/13/2024 4:48 AM EDT [facility] Coronavirus 229E Not Detected Not Detected [facility]RE [facility] 11/13/2024 4:48 AM EDT [facility] Coronavirus HKU1 Not Detected Not Detected [facility] 11/13/2024 4:48 AM EDT [facility] Coronavirus NL63 Not Detected Not Detected [facility] 11/13/2024 4:48 AM EDT [facility] Coronavirus OC43 Not Detected Not Detected [facility] 11/13/2024 4:48 AM EDT [facility] COVID19 Not Detected Not Detected - Ref. Range [facility] 11/13/2024 4:48 AM EDT [facility] Human Metapneumovirus Not Detected Not Detected [facility] 11/13/2024 4:48 AM EDT [facility] Human Rhinovirus/Enterov irus Not Detected Not Detected [facility] 11/13/2024 4:48 AM EDT [facility] Influenza A PCR Not Detected Not Detected [facility] 11/13/2024 4:48 AM EDT [facility] Influenza B PCR Not Detected Not Detected [facility] 11/13/2024 4:48 AM EDT [facility] Parainfluenza Virus 1 Not Detected Not Detected [facility] 11/13/2024 4:48 AM EDT [facility] Parainfluenza Virus 2 Not Detected Not Detected [facility] 11/13/2024 4:48 AM EDT [facility] Parainfluenza Virus 3 Not Detected Not Detected [facility] 11/13/2024 4:48 AM EDT [facility] Parainfluenza Virus 4 Not Detected Not Detected [facility] 11/13/2024 4:48 AM EDT [facility] RSV, PCR Not Detected Not Detected [facility] 11/13/2024 4:48 AM EDT [facility] Bordetella pertussis pcr Not Detected Not Detected [facility] 11/13/2024 4:48 AM EDT [facility] Bordetella parapertussis PCR Not Detected Not Detected [facility] 11/13/2024 4:48 AM EDT [facility] Chlamydophila pneumoniae PCR Not Detected Not Detected [facility] 11/13/2024 4:48 AM EDT [facility] Mycoplasma pneumo by PCR Not Detected Not Detected [facility] 11/13/2024 4:48 AM EDT [facility] Swab Nasopharyngeal structure / Unknown Collection / Unknown 11/13/2024 3:26 AM EDT 11/13/2024 4:00 AM EDT [facility] - 11/13/2024 4:48 AM [...] MICROBIOLOGY - GENERAL ORDERA BLES Final Result [facility]
[address] [place] [address], * (ABNORMAL) Blood Gas, Venous With Co-Ox (11/12/2024 11:16 PM EDT) Site Nurse/Dr Draw 11/12/2024 11:17 PM EDT [facility] pH, Venous 7.337 7.310 - 7.410 pH Units 11/12/2024 11:17 PM EDT [facility] pCO2, Venous 59.6(H) 41.0 - 51.0 mm Hg 11/12/2024 11:17 PM EDT [facility] Comment:83 Value above refer ence range pO2, Venous 30.4 27.0 - 53.0 mm Hg 11/12/2024 11:17 PM EDT [facility] HCO3, Venous 31.9(H) 22.0 - 28.0 mmol/L 11/12/2024 11:17 PM EDT [facility] Base Excess, Venous 5.0(H) -2.0 - 2.0 mmol/L 11/12/2024 11:17 PM EDT [facility] Hemoglobin, Blood Gas 9.3(L) 14 - 18 g/dL 11/12/2024 11:17 PM EDT [facility] Oxyhemoglobin Venous 48.3 % 06/2024 11:17 PM EDT [facility] Methemoglobin Venous 0.4 % 06/2024 11:17 PM EDT [facility] Carboxyhemoglobin Venous 1.7 % 11/12/2024 11:17 PM EDT [facility] CO2 Content 33.7(H) 22 - 33 mmol/L 11/12/2024 11:17 PM EDT [facility] Temperature 37.0 11/12/2024 11:17 PM EDT [facility] Barometric Pressure for Blood Gas 11/12/2024 11:17 PM EDT [facility] Comment:N/A Modality Nasal Cannula 11/12/2024 11:17 PM EDT [facility] FIO2 28 % 11/12/2024 11:17 PM EDT [facility] Rate 0 Breaths/ minute 11/12/2024 11:17 PM EDT [facility] PIP 0 cmH2O 11/12/2024 11:17 PM EDT [facility] Comment:Meter: [id number] Color Control Operator: [id number] IPAP 0 11/12/2024 11:17 PM EDT [facility] EPAP 0 11/12/2024 11:17 PM EDT [facility] Venous Blood 11/12/2024 11:1 6 PM EDT 11/12/2024 11:16 PM EDT us Logan Araujo MD LAB BLOOD ORDERABLES Fin al Result [facility]
[address] [place] [address], * CT Angiogram Chest Pulmonary Embolism (11/12/2024 7:46 PM EDT) Anatomical Region Laterality Modality Chest N/A Computed Tomogra phy 11/12/2024 8:22 PM EDT Impressions 11/12/2024 8:31 PM EDT No evidence of pulmonary embolus. No acute abnormality. Electronically Signed: Jed Machuca MD 11/12/2024 8:31 PM EDT Workstation ID: [id number] Hermann 11/12/2024 8:[address] ANGIOGRAM [...] MD 11/12/2024 8:31 PM EDT Workstation ID: [id number] Logan Araujo MD IMG CT ORDERABLES Final Result * COVID-19, FLU A/B, RSV PCR 1 HR TAT - Swab, Nasopharynx (11/12/2024 7:21 PM EDT) Pathologist [facility] COVID19 Not Detected Not Detected - Ref. Range CEPHEID GENEXPERT 11/12/2024 8:24 PM EDT [facility] Influenza A PCR Not Detected Not Detected CEPHEID GENEXPERT 11/12/2024 8:24 PM EDT [facility] Influenza B PCR Not Detected Not Detected CEPHEID GENEXPERT 11/12/2024 8:24 PM EDT [facility] RSV, PCR Not Detected Not Detected CEPHEID GENEXPERT 11/12/2024 8:24 PM EDT [facility] Swab Nasopharyngeal structure / Unknown Collection / Unknown 11/12/2024 7:21 PM EDT 11/12/2024 7:46 PM EDT Logan Araujo MD MICROBIOLOGY - GENERAL O RDERABLES Final Result [facility]
[address] [place] [address], [place] [phone] * (ABNORMAL) Urinalysis, Microscopic Only - Urine, Clean Catch (11/12/2024 7:20 PM EDT) Pathologist [facility] RBC, UA 0-2 None Seen, 0-2 /HPF 11/12/2024 8:00 PM EDT [facility] WBC, UA 11-20(A) None Seen, 0-2 /HPF 11/12/2024 8:00 PM EDT [facility] Bacteria, UA None Seen None Seen /HPF 11/12/2024 8:00 PM EDT [facility] Squamous Epithelial Cells, UA 3-6(A) None Seen, 0-2 /HPF 11/12/2024 8:00 PM EDT [facility] Hyaline Casts, UA 0-2 None Seen /LPF 11/12/2024 8:00 PM EDT [facility] Methodology Automated Microscopy 11/12/2024 8:00 PM EDT [facility] Urine Urine specimen obtained by clean catch procedure / Unknown Collection / Unknown 11/12/2024 7:20 PM EDT 11/12/2024 7:46 PM EDT Logan Araujo MD URINE ORDERABLES Final R esult [facility] [place] [address], * (ABNORMAL) Urinalysis With Microscopic If Indicated (No Culture) - Urine, Clean Catch (11/12/2024 7:20 PM EDT) Color, UA Yellow Yellow, Straw 11/12/2024 8:00 PM EDT [facility] Appearance, UA Clear Clear 11/12/2024 8:00 PM EDT [facility] pH, UA 5.5 5.0 - 8.0 11/12/2024 8:00 PM EDT [facility] Specific [place], UA >1.030(H) 1.005 - 1.030 11/12/2024 8:00 PM EDT [facility] Glucose, UA Negative Negative 11/12/2024 8:00 PM EDT [facility] Ketones, UA Negative Negative 11/12/2024 8:00 PM EDT [facility] Bilirubin, UA Negative Negative 11/12/2024 8:00 PM EDT [facility] Blood, UA Negative Negative 11/12/2024 8:00 PM EDT [facility] Protein, UA Trace(A) Negative 11/12/2024 8:00 PM EDT [facility] Leuk Esterase, UA Small (1+)(A) Negative 11/12/2024 8:00 PM EDT [facility] Nitrite, UA Negative Negative 11/12/2024 8:00 PM EDT [facility] Urobilinogen, UA 1.0 E.U./dL 0.2 - 1.0 E.U./dL 11/12/2024 8:00 PM EDT [facility] Urine Urine specimen obtained by clean catch procedure / Unknown Collection / Unknown 11/12/2024 7:20 PM EDT 11/12/2024 7:46 PM EDT Logan Araujo MD URINE ORDERABLES Final R esult Performing Organization Address City/[facility]/ZIP Co de Phone Number [facility]
[address] [place] [address], * Sodium, Urine, Random - Urine, Clean Catch (11/12/2024 7:20 PM EDT) Sodium, Urine <20 mmol/L 11/13/2024 3:37 AM EDT [facility] Urine Urine specimen obtained by clean catch procedure / Unknown Collection / Unknown 11/12/2024 7:20 PM EDT 11/12/2024 7:46 PM EDT Narrative [facility] - 11/13/2024 3:37 AM EDT Reference intervals for random urine have not been established. Clinical usage is dependent upon physician's interpretation in combination with other laboratory tests. Aaliyah Jha APRN URINE ORDERABLES Final Result Performing Organization Address [facility]/ZIP Co de Phone Number [facility]
[address] [place] [address], * Osmolality, Urine - Urine, Clean Catch (11/12/2024 7:20 PM EDT) Osmolality, Urine 837 300 - 1,100 mOsm/kg 11/13/2024 4:00 AM EDT [facility] Urine Urine specimen obtained by clean catch procedure / Unknown Collection / Unknown 11/12/2024 7:20 PM EDT 11/12/2024 7:46 PM EDT Aaliyah Jha APRN URINE ORDERABLES Final Result Performing Organization Address City/[facility]/ZIP Co de Phone Number [facility]
[address] [place] [address], [place] [phone] * Creatinine Urine Random (kidney function) GFR component - Urine, Clean Catch (11/12/2024 7:20 PM EDT) Creatinine, Urine 276.6 mg/dL 11/13/2024 9:46 AM EDT [facility] Urine Urine specimen obtained by clean catch procedure / Unknown Collection / Unknown 11/12/2024 7:20 PM EDT 11/13/2024 3:13 AM EDT Narrative [facility] - 11/13/2024 9:46 AM EDT Reference intervals for random urine have not been established. Clinical usage is dependent upon physician's interpretation in combination with other laboratory tests. us Aaliyah Jha APRN URINE ORDERABLES Final Result [facility]
[address] [place] [address], [place] [phone] * Urine Culture - Urine, Urine, Clean Catch (11/12/2024 7:20 PM EDT) Urine Culture No growth YUMIKO 11/14/2024 12:26 PM EDT [facility] Urine Urine specimen obtained by clean catch procedure / Unknown Collection / Unknown 11/12/2024 7:20 PM EDT 11/13/2024 12:57 AM EDT Logan Araujo MD MICROBIOLOGY - GENERAL O RDERABLES Final Result Performing Organization Address City/[facility]/ZIP Co de Phone Number [facility]
[address] [place] [address], [place] [phone] * (ABNORMAL) High Sensitivity Troponin T 1Hr (11/12/2024 7:16 PM EDT) HS Troponin T 16(H) <14 ng/L 11/12/2024 7:53 PM EDT [facility] Troponin T Numeric Delta -1 ng/L 11/12/2024 7:53 PM EDT [facility] Troponin T % Delta -6 Abnormal if >/= 20% 11/12/2024 7:53 PM EDT [facility] Blood Line / Unknown 11/12/2024 7: 16 PM EDT 11/12/2024 7:20 PM EDT Narrative [facility] - 11/12/2024 7:53 PM EDT [...] MD LAB BLOOD ORDERABLES Fin al Result [facility]
[address] [place] [address], [place] [phone] * (ABNORMAL) Iron Profile w/o Ferritin (11/12/2024 7:16 PM EDT) Iron 21(L) 37 - 145 mcg/dL 11/13/2024 3:24 AM EDT [facility] Iron Saturation (TSAT) 4(L) 20 - 50 % 11/13/2024 3:24 AM EDT [facility] Transferrin 321 200 - 360 mg/dL 11/13/2024 3:24 AM EDT [facility] TIBC 478 298 - 536 mcg/dL 11/13/2024 3:24 AM EDT [facility] Blood Venipuncture / Unknown 11/12/2024 7:16 PM EDT 11/13/2024 2:57 AM EDT Aaliyahcolleen Jha APRN LAB BLOOD ORDERABLES Final Re sult Performing Organization Address City/[facility]/ZIP Co de Phone Number [facility]
[address] [place] [address], [place] [phone] * Ferritin (11/12/2024 7:16 PM EDT) Ferritin 13.80 13.00 - 150.00 ng/mL 11/13/2024 3:24 AM EDT [facility] Blood Venipuncture / Unknown 11/12/2024 7:16 PM EDT 11/13/2024 2:57 AM EDT Narrative [facility] - 11/13/2024 3:24 AM EDT Results may be falsely decreased if patient taking Biotin. Aaliyah Jha APRN LAB BLOOD ORDERABLES Final Re sult Performing Organization Address City/[facility]/ZIP Co de Phone Number [facility]
[address] [place] [address], [place] [phone] * XR Chest 1 View (11/12/2024 6:30 PM EDT) Anatomical Region Laterality Modality Body N/A Radiographic Tatyana ging 11/12/2024 7:00 PM EDT Impressions 11/12/2024 7:02 PM EDT Impression: 1. No acute cardiopulmonary disease. Electronically Signed: Arben Neely MD 11/12/2024 7:02 PM EDT Workstation ID: [id number] Narrative 11/12/2024 7:02 PM EDT XR CHEST [...] MD 11/12/2024 7:02 PM EDT Workstation ID: [id number] Logan Araujo MD IMG DIAGNOSTIC IMAGING O RDERABLES Final Result * Castellano Top (11/12/2024 5:17 PM EDT) Pathologist [facility] Extra Tube Hold for add-ons. 11/12/2024 5:32 PM EDT [facility] Comment:Auto resulted. Blood Venipuncture / Unknown 11/12/2024 5:17 PM EDT 11/12/2024 5:17 PM EDT Logan Araujo MD LAB BLOOD ORDER ONLY Fin al Result [facility]
[address] [place] [address], * TSH Rfx On Abnormal To Free T4 (11/12/2024 5:17 PM EDT) Pathologist [facility] TSH 2.480 0.270 - 4.200 uIU/mL 11/12/2024 5:51 PM EDT [facility] Blood Venipuncture / Unknown 11/12/2024 5:17 PM EDT 11/12/2024 5:17 PM EDT Logan Araujo MD LAB BLOOD ORDERABLES Fin al Result Performing Organization Address City/[facility]/ZIP Co de Phone Number [facility]
[address] [place] [address], [place] [phone] * Gold Top - SST (11/12/2024 5:17 PM EDT) Extra Tube Hold for add-ons. 11/12/2024 5:32 PM EDT [facility] Comment:Auto resulted. Blood Venipuncture / Unknown 11/12/2024 5:17 PM EDT 11/12/2024 5:17 PM EDT Logan Araujo MD LAB BLOOD ORDER ONLY Fin al Result Performing Organization Address [facility] Co de Phone Number [facility]
[address] [place] [address], [place] [phone] * Green Top (Gel) (11/12/2024 5:17 PM EDT) Extra Tube Hold for add-ons. 11/12/2024 5:31 PM EDT [facility] Comment:Auto resulted. Blood Venipuncture / Unknown 11/12/2024 5:17 PM EDT 11/12/2024 5:17 PM EDT Logan Araujo MD LAB BLOOD ORDER ONLY Fin al Result Performing Organization Address City/[facility]/ZIP Co de Phone Number [facility]
[address] [place] [address], [place] [phone] * Scan Slide (11/12/2024 5:17 PM EDT) Anisocytosis Slight/1+ None Seen 11/12/2024 6:07 PM EDT [facility] Hypochromia Slight/1+ None Seen 11/12/2024 6:07 PM EDT [facility] Microcytes Mod/2+ None Seen 11/12/2024 6:07 PM EDT [facility] WBC Morphology Normal Normal 11/12/2024 6:07 PM EDT [facility] Platelet Morphology Normal Normal 11/12/2024 6:07 PM EDT [facility] Blood Venipuncture / Unknown 11/12/2024 5:17 PM EDT 11/12/2024 5:17 PM EDT Logan Araujo MD LAB BLOOD ORDERABLES Fin al Result Performing Organization Address City/[facility]/ZIP Co de Phone Number [facility]
[address] [place] [address], [place] [phone] * Lavender Top (11/12/2024 5:17 PM EDT) Extra Tube hold for add-on 11/12/2024 5:31 PM EDT [facility] Comment:Auto resulted Blood Venipuncture / Unknown 11/12/2024 5:17 PM EDT 11/12/2024 5:17 PM EDT Logan Araujo MD LAB BLOOD ORDER ONLY Fin al Result [facility]
[address] [place] [address], [place] [phone] * Light Blue Top (11/12/2024 5:17 PM EDT) Extra Tube Hold for add-ons. 11/12/2024 5:31 PM EDT [facility] Comment:Auto resulted Blood Venipuncture / Unknown 11/12/2024 5:17 PM EDT 11/12/2024 5:17 PM EDT Logan Araujo MD LAB BLOOD ORDER ONLY Fin al Result Performing Organization Address City/[facility]/ZIP Co de Phone Number [facility]
[address] [place] [address], * (ABNORMAL) High Sensitivity Troponin T (11/12/2024 5:17 PM EDT) [facility] HS Troponin T 17(H) <14 ng/L 11/12/2024 5:51 PM EDT [facility] Blood Venipuncture / Unknown 11/12/2024 5:17 PM EDT 11/12/2024 5:17 PM EDT [facility] - 11/12/2024 5:51 PM [...] ORDERABLES Fin al Result Performing Organization Address [facility]/ZIP Co de Phone Number [facility]
[address] [place] [address], * (ABNORMAL) D-dimer, Quantitative (11/12/2024 5:17 PM EDT) [facility] D-Dimer, Quantitative 10.36(H) 0.00 - 0.66 MCGFEU/mL 11/12/2024 6:00 PM EDT [facility] Blood Venipuncture / Unknown 11/12/2024 5:17 PM EDT 11/12/2024 5:17 PM EDT Narrative [facility] - 11/12/2024 6:00 PM EDT According to the assay boom crane operator's published package insert, a normal (<0.50 MCGFEU/mL) D-dimer result in conjunction with a non-high clinical probability assessment, excludes deep vein thrombosis (DVT) and pulmonary embolism (PE) with high sensitivity. D-dimer values increase with age and this can make VTE exclusion of an older population difficult. To address this, the [employer], based on best available [...] ORDERABLES Fin al Result Performing Organization Address City/[facility]/ZIP Co de Phone Number [facility]
[address] [place] [address], * Phosphorus (11/12/2024 5:17 PM EDT) Pathologist [facility] Phosphorus 4.1 2.5 - 4.5 mg/dL 11/12/2024 5:51 PM EDT [facility] Blood Venipuncture / Unknown 11/12/2024 5:17 PM EDT 11/12/2024 5:17 PM EDT Logan Araujo MD LAB BLOOD ORDERABLES Fin al Result Performing Organization Address City/[facility]/ZIP Co de Phone Number [facility]
[address] [place] [address], [place] [phone] * BNP (11/12/2024 5:17 PM EDT) proBNP 247.0 0.0 - 900.0 pg/mL 11/12/2024 5:51 PM EDT [facility] Blood Venipuncture / Unknown 11/12/2024 5:17 PM EDT 11/12/2024 5:17 PM EDT Narrative [facility] - 11/12/2024 5:51 PM EDT [...] MD LAB BLOOD ORDERABLES Fin al Result [facility]
[address] [place] [address], * Lipase (11/12/2024 5:17 PM EDT) Lipase 20 13 - 60 U/L 11/12/2024 5:51 PM EDT [facility] Blood Venipuncture / Unknown 11/12/2024 5:17 PM EDT 11/12/2024 5:17 PM EDT Logan Araujo MD LAB BLOOD ORDERABLES Fin al Result [facility]
[address] [place] [address], * Lactic Acid, Plasma (11/12/2024 5:17 PM EDT) Lactate 1.6 0.5 - 2.0 mmol/L 11/12/2024 5:49 PM EDT [facility] Comment:Falsely depressed re sults may occur on samples drawn from patients receiving N-Acetylcysteine (NAC) or Metamizole. Blood Venipuncture / Unknown 11/12/2024 5:17 PM EDT 11/12/2024 5:17 PM EDT Logan Araujo MD LAB BLOOD ORDERABLES Fin al Result Performing Organization Address City/[facility]/ZIP Co de Phone Number [facility]
[address] [place] [address], [place] [phone] * Folate (11/12/2024 5:17 PM EDT) Folate >20.00 4.78 - 24.20 ng/mL 11/13/2024 9:54 AM EDT [facility] Blood Venipuncture / Unknown 11/12/2024 5:17 PM EDT 11/13/2024 2:59 AM EDT Narrative [facility] - 11/13/2024 9:54 AM EDT Results may be falsely increased if patient taking Biotin. Aaliyah Jha APRN LAB BLOOD ORDERABLES Final Re sult Performing Organization Address [facility] Co de Phone Number [facility]
[address] [place] [address], * (ABNORMAL) Vitamin B12 (11/12/2024 5:17 PM EDT) Vitamin B-12 1,669(H) 211 - 946 pg/mL 11/13/2024 9:54 AM EDT [facility] Blood Venipuncture / Unknown 11/12/2024 5:17 PM EDT 11/13/2024 2:59 AM EDT Narrative [facility] - 11/13/2024 9:54 AM EDT Results may be falsely increased if patient taking Biotin. us Aaliyah Jha RUBEN LAB BLOOD ORDERABLES Final Re sult [facility]
[address] [place] [address], * (ABNORMAL) Comprehensive Metabolic Panel (11/12/2024 5:17 PM EDT) Glucose 96 65 - 99 mg/dL 11/12/2024 5:51 PM EDT [facility] BUN 24.7(H) 8.0 - 23.0 mg/dL 11/12/2024 5:51 PM EDT [facility] Creatinine 1.06(H) 0.57 - 1.00 mg/dL 11/12/2024 5:51 PM EDT [facility] Sodium 139 136 - 145 mmol/L 11/12/2024 5:51 PM EDT [facility] Potassium 4.4 3.5 - 5.2 mmol/L 11/12/2024 5:51 PM EDT [facility] Chloride 101 98 - 107 mmol/L 11/12/2024 5:51 PM EDT [facility] CO2 27.9 22.0 - 29.0 mmol/L 11/12/2024 5:51 PM EDT [facility] Calcium 9.1 8.6 - 10.5 mg/dL 11/12/2024 5:51 PM EDT [facility] Total Protein 6.4 6.0 - 8.5 g/dL 11/12/2024 5:51 PM EDT [facility] Albumin 4.0 3.5 - 5.2 g/dL 11/12/2024 5:51 PM EDT [facility] ALT (SGPT) 15 1 - 33 U/L 11/12/2024 5:51 PM EDT [facility] AST (SGOT) 27 1 - 32 U/L 11/12/2024 5:51 PM EDT [facility] Alkaline Phosphatase 113 39 - 117 U/L 11/12/2024 5:51 PM EDT [facility] Total Bilirubin 0.2 0.0 - 1.2 mg/dL 11/12/2024 5:51 PM EDT [facility] Globulin 2.4 gm/dL 11/12/2024 5:51 PM EDT [facility] Comment:Calculated Result A/G Ratio 1.7 g/dL 11/12/2024 5:51 PM EDT [facility] BUN/Creatinine Ratio 23.3 7.0 - 25.0 11/12/2024 5:51 PM EDT [facility] Anion Gap 10.1 5.0 - 15.0 mmol/L 11/12/2024 5:51 PM EDT [facility] eGFR 58.1(L) >60.0 mL/min/1.7 3 11/12/2024 5:51 PM EDT [facility] Blood Venipuncture / Unknown 11/12/2024 5:17 PM EDT 11/12/2024 5:17 PM EDT [facility] - 11/12/2024 5:51 PM [...] MD LAB BLOOD ORDERABLES Fin al Result [facility]
[address] [place] [address], * Mammo screening digital tomosynthesis bilateral (04/06/2015 [...] in patients with adenosis or dense breasts. [employer] GUIDELIN[employer] For breast cancer detection in asymptomatic women- Age ACR Recommendations 35-40 Baseline Mammogram 40-49 Annual or Biannual Mammogram 50+ Annual Mammogram Annual physical and frequent self breast examination. Patient has been entered into an automatic reminder system. Addendum Reading Radiologist- DIYA GOEL Addendum Releasing Radiologist- DIYA GOEL Addendum Released Date Time- 04/19/15 1550 Addendum Archery Equipment Hay Sorter- Jaylen BILATERAL SCREENING MAMMOGRAM WITH TOMOSYNTHESIS PNL- [...] in patients with adenosis or dense breasts. [employer] GUIDELIN[employer] For breast cancer detection in asymptomatic women- Age ACR Recommendations 35-40 Baseline Mammogram 40-49 Annual or Biannual Mammogram 50+ Annual Mammogram Annual physical and frequent self breast examination. Patient has been entered into an automatic reminder system. Reading Akash GOEL Releasing Akash GOEL Released Date Time- 04/06/15 1055 Archery Equipment Hay Sorter- Dave Procedure Note Diya Goel Jr., MD [...] in patients with adenosis or dense breasts. [employer] GUID[employer]IN[employer] For breast cancer detection in asymptomatic women- Age ACR Recommendations 35-40 Baseline Mammogram 40-49 Annual or Biannual Mammogram 50+ Annual Mammogram Annual physical and frequent self breast examination. Patient has been entered into an automatic reminder system. Addendum Reading Akash GOEL Addendum Releasing Akash GOEL Addendum Released Date Time- 04/19/15 1550 Addendum Archery Equipment Hay Sorter- Jaylen BILATERAL SCREENING MAMMOGRAM WITH TOMOSYNTHESIS PNL- [...] in patients with adenosis or dense breasts. [employer] GUID[employer]IN[employer] For breast cancer detection in asymptomatic women- Age ACR Recommendations 35-40 Baseline Mammogram 40-49 Annual or Biannual Mammogram 50+ Annual Mammogram Annual physical and frequent self breast examination. Patient has been entered into an automatic reminder system. Reading Radiologist- DIYA GOEL Releasing Radiologist- DIYA GOEL Released Date Time- 04/06/15 0332 Fernando Acosta us Gregorio Mcgee MD IMG MAMMOGRAPHY ORDERABLES Edite d Result - Final from Last 3 Months or Most Recently Relevant to Health Maintenance Insurance [facility] MEDICARE A & B Advance Directives * CPR (Attempt to Resuscitate) (Latest Code Status on File) Date Activated Date Inactivated Comments 11/13/2024 2:01 AM 11/14/2024 6:43 PM Question Answer Comments Code Status (Patient has no pulse and is not breathing): CPR (Attempt to Resuscitate) Medical Interventions (Patie nt has pulse or is breathing): Full Support Care Teams Abrasive Sawyer Relationship Specialty Start Date End Date Sandra Orozco APRN [address] [place] [address] [address] [place] [address] PCP - General Internal Medicine 05/11/24
--- OUTSIDE RECORDS SUMMARY | 2025-02-10 11:25 | XMS_ITS | Encounter Summary ---
Author Organization [facility]stem Address [address] [place] [address] Care Team Providers Care Electrophysiology Nurse Practitioner Name Role Phone Sandra Orozco APRN Primary Care Provider Encounter Details Date Type Department Care Team (Late st Contact Info) Description 01/06/[address] [facility] [address] [facility] [address] [address] Dina Solano APRN [address] [facility] [address] [place] [address] Social History Tobacco Use Types Packs/Day Years Used Date Smoking Tobacco: Former Cigarettes 2 45 Q uit: 05/10/2023 Smokeless Tobacco: Never Comments:Liked to smoke Alcohol Use Standard Drinks/Week Comments Not Currently 0 (1 standard drink = 0.6 oz pur e alcohol) former [facility] Utilities Answer Date Recorded In the past 12 months has [employer], gas, oil, or water company threatened to [...] care, and heating? Not very hard 11/13/2024 [facility] - Occupational Stress [...] GED or equivalent No 11/13/2024 Preferred Language Emirati 11/13/2024 PHQ-2 Answer Date Recorded Patient Health [...] FOR CARDIAC CLEARANCE Caller name: Winnie/Brea Davidson [facility] needs a clearance for a dental cleaning Unable to fax. Email was given: [email or web address] Since the Dental School do not [...] Visit [facility] [address] [address] [place] [phone] Dina Solano APRN [address] [facility] [address] [place] [address] documented as of this encounter Visit Diagnoses Not on filedocumented in this encounter Care Teams Electrophysiology Nurse Practitioner Relationship Specialty Start Date End Date Sandra Orozco APRN [address] [facility] [address] [place] [address] PCP - General Internal Medicine 05/11/24 documented as of this encounter
--- OUTSIDE RECORDS SUMMARY | 2025-02-10 11:26 | XMS_ITS | Encounter Summary ---
Author Organization [employer] ([place], [place], [place], [place], [place]) Address [address] [place] [address] Care Team Providers Care Admin Prog Coord Name Role Phone OrozcoSheri randhawaagustin MIRANDA Primary Care Provider Encounter Details Date Type Department Care Team (Late st Contact Info) Description 03/01/2020 Transcribed Document [facility] Family Medicine [facility] [place] [address] ProviderAide MD [address] [place] [address] Social History Tobacco Use Types Packs/Day [...] Aide Reed MD - 03/01/2020 11:34 AM TRACK VEHICLE REPAIRER DATE OF PROCEDURE: 03/01/2020 SURGEON: Noemi Mayfield [...] 18-gauge Tuohy needle was advanced by the qeah-rm-rkalrrewsv technique under direct fluoroscopic guidance into the [...] visit and the patient has been afebrile. /[id number] Noemi Mayfield MD, JELANI Pain Certified DELILAH/ANTHONY / KR / MODL /[id number] documented in this encounter Plan of Treatment Not on file documented as of this encounter Visit Diagnoses Not on filedocumented in this encounter Care Teams Admin Prog Coord Relationship Specialty Start Date End Date Sandra Orozco, CARDIOVASCULAR INVASIVE SPECIALIST [address] [place] [address] PCP - General Nurse Practitioner 01/24/22 documented as of this encounter
--- OUTSIDE RECORDS SUMMARY | 2025-02-10 11:26 | XMS_ITS | Referral Summary ---
Author Organization [email or web address] ([place], [place], [place], [place], [place]) Address [address] [place] [address] Care Team Providers Care Senior Coldfusion Developer Name Role Phone Ernesto Sandra MIRANDA Primary Care Provider [phone] Allergies Active Allergy Reactions Criticality Noted Date [...] your living situation today? I have a [facility] place to live 10/13/2023 Think about [...] Do you speak a language other than [facility]? No 10/13/2023 Do you [...] on file Medical Devices Implanted Type Area Ibm Mainframe Systems Programmer Device Identifier Shelf Expiration Date Model / Serial / Lot Sealant Durasl Spine 5ml [id number] - [id number] Implanted:Qty: 1 on 01/31/2022 by Emeka Fernández MD at [facility] IMPLANTS N/A: Back [employer] 07/09/[id number] / / [id number] Cement Spinal Confidence 2839-10-000 - [id number] Implanted:Qty: 2 on 10/14/2023 at [facility] IMPLANTS N/A: Back J &J:DEPUY:DEPUY SPINE 06/08/2025 0 / / [id number] Insurance MEDICARE PART A B GENERIC COMMERCIAL Advance Directives For more information, please contact: [phone] Documents on File Type Date Recorded Patient Orthopedic Assistant Expl anation Advance Directives and Marixa singh [...] Son First Alternate Healthcare Decision-Maker Care Teams Senior Coldfusion Developer Relationship Specialty Start Date End Date Sandra Orozco, RUBEN [address] [place] [place] [id number] PCP - General Nurse Practitioner 01/24/22
--- OUTSIDE RECORDS SUMMARY | 2025-02-10 11:26 | XMS_ITS | Encounter Summary ---
Author Organization [facility] yste Address [address] [place] [address] Care Team Providers Care Hotel Maintenance Worker Name Role Phone Sandra Orozco APRN Primary Care Provider Reason for Visit * Reason Onset Date Comments [facility] - LAB ORDERS 02/10/2025 Encounter Details Date Type Department Care Team (Late st Contact Info) Description 02/10/[address] [facility] [address] [facility] [address], [place] [address] Dina Solano APRN [address] [facility] [address] [place], [place] [id number] [facility] - LAB ORDERS Social History Tobacco Use Types Packs/Day Years Used Date Smoking Tobacco: Former Cigarettes 2 45 Q uit: 05/10/2023 Smokeless Tobacco: Never Comments:Liked to smoke Alcohol Use Standard Drinks/Week Comments Not Currently 0 (1 standard drink = 0.6 oz pur e alcohol) former [facility] Utilities Answer Date Recorded In the past 12 months has [employer] electric, gas, oil, or water company threatened [...] care, and heating? Not very hard 11/13/2024 [facility] - Occupational Stress Questionnaire Answer Date [...] GED or equivalent No 11/13/2024 Preferred Language Mauritanian 11/13/2024 PHQ-2 Answer Date Recorded Patient Health Questionnaire-2 Score 0 11/13/2024 Comments No Sex and Gender Information Value Date Recorded Sex Assigned at Female 07/09/2024 8:35 PM EDT Legal Sex Female 8:53 AM EST Gender Identity Not on file Sexual Orientation Straight 07/09/2024 8: 35 PM EDT documented as of this encounter Miscellaneous Notes * Telephone Encounter - Naman Harrington RegSched Rep - 02/10/2025 10:08 AM EST [facility] [phone] * Telephone Encounter - Maki Banerjee RegSched Rep - 02/10/2025 10:00 AM EST Caller: Casi Cruz Relationship: Self Best call back number: [phone]* What form or medical record are you requesting: LAB ORDERS Who is requesting this form or medical record from you: [facility] How would you like to receive the form or medical records (pick-up, mail, fax): FAX If fax, what is the fax number: [phone]* Timeframe paperwork needed: KENAN, HAS BEEN FASTING AND WOULD LIKE LABS DRAWN THIS MORNING. documented in this encounter Plan of Treatment Upcoming Encounters Date Type Department Care Team (Late st Contact Info) Description 02/16/2025 11:00 AM EST Office Visit [facility] [address] [facility] [address] [place] [phone] Dina Solano APRN [address] [facility] [address] [place] [address] documented as of this encounter Visit Diagnoses Not on filedocumented in this encounter Care Teams Hotel Maintenance Worker Relationship Specialty Start Date End Date Sandra Orozco, RUBEN [address] [id number] PCP - General Internal Medicine 05/11/24 documented as of this encounter
--- OUTSIDE RECORDS SUMMARY | 2025-02-10 11:26 | XMS_ITS | Clinical Summary ---
Author Organization [facility] Address [address] [place] [address] Care Team Providers Care Single Ending Machine Operator Name Role Phone Adryan Cooper MD Primary Care Provider [phone] Allergies Active Allergy Reactions Criticality Noted Date [...] tablet (5 mg). 05/28/2016 Active HYDROcodone-gudelia taminophen (Mesa) 10-325 MG tablet 1 tablet (10 mg of hydrocodone). 05/01/2023 Active dicyclomine (Bentyl) 10 MG capsule 1 capsule (10 mg). 03/27/2023 Active dexlansoprazole (Dexilant) [address] capsule 1 capsule (60 mg). 05/28/2016 Active fluconazole (Diflucan) 100 MG tablet 1 tablet (100 mg). 08/16/2023 Active Encounters Date Type Department Care Team Description 01/26/2025 Telephone [facility] [address] [place] [address] Sam Flores from Last 3 Months Family [...] Office Visit [facility] [address] [place] [address] Sam Flores Health Maintenance Due Date Last [...] PCV) 2008 [facility]-Breast Cancer Screening 04/06/201703/12, 04/06/2015 [id number] Vaccine (3 - season) 2024 01/20/2021, 06/16/2020 [...] complete this topic Insurance [place] [id number] MEDICARE COMBINED PRIORITY 1 CARD Care Teams Single Ending Machine Operator Relationship Specialty Start Date End Date Adryan Cooper MD [address] [place] [address] PCP - General 07/22/20
--- OUTSIDE RECORDS SUMMARY | 2025-02-10 11:26 | XMS_ITS | Clinical Summary ---
Author Organization [employer] ([place], [place], [place], [place], [place]) Address [address] [place] [address] Care Team Providers Care Farmworker Fur Name Role Phone Ernesto Sandra MIRANDA Primary Care Provider Allergies Active Allergy [...] your living situation today? I have a [facility] place to live 10/13/2023 Think about [...] Do you speak a language other than Scottish at [facility]? No [...] 06/22/2009, 08/29/2001 Medical Devices Implanted Type Area Drafter Automotive Design Device Identifier Shelf Expiration Date Model / Serial / Lot Sealant Durasl Spine 5ml [id number] - [id number] Implanted:Qty: 1 on 01/31/2022 by Emeka Fernández MD at [facility] IMPLANTS N/A: Back [employer] 07/09/[id number] / / [id number] Cement Spinal Confidence 2839-10-000 - [id number] Implanted:Qty: 2 on 10/14/2023 at [facility] IMPLANTS N/A: Back J &J:DEPUY:DEPUY SPINE 06/08/2025 0 / / [id number] Insurance MEDICARE PART A B GENERIC COMMERCIAL Advance Directives For more information, please contact: [phone] Documents on File Type Date Recorded Patient Concrete Hopper Operator Expl anation Advance Directives and Livin [...] Son First Alternate Healthcare Decision-Maker Care Teams Farmworker Fur Relationship Specialty Start Date End Date Sandra Orozco ELECTRONIC MAINTENANCE SUPERVISOR [address] [place] [address] PCP - General Nurse Practitioner 01/24/22
--- OUTSIDE RECORDS SUMMARY | 2025-02-10 11:26 | XMS_ITS | Encounter Summary ---
Author Organization [employer] ([place], [place], [place], [place], [place]) Address [address] [place] [address] Care Team Providers Care Health Center Assistant Name Role Phone OrozcoSheri randhawaagustin MIRANDA Primary Care Provider Encounter Details Date Type Department Care Team (Late st Contact Info) Description 01/25/2020 Transcribed Document [facility] [facility] [address] [place] [address] ProviderAide MD [address] [place] [address] Social History Tobacco Use Types Packs/Day Years Used Date Smoking Tobacco: Never Assessed Comments Unknown Sex and Gender Information Value Date Recorded Sex Assigned at Not on file Legal Sex Female 2:35 PM CDT Gender Identity Not on file Sexual Orientation Not on file documented as of this encounter Miscellaneous Notes * Cerner Conversion Note - Historical ProviderMD - 01/25/2020 6:55 AM EXCEL EXPERT DATE OF ADMISSION: 01/22/2020 HISTORY OF PRESENT [...] applying ice and heat, physical therapy, exercise, [id number] medication, bed rest going to [facility], [...] to contact her primary physician and her curriculum coach to see if we can hold the [...] visit and the patient has been afebrile. /[id number] Karim Chaparro, MD, JELANI Pain Certified KR/AQ / KR / MODL CC: MD Sandra Valero APRN Electronically signed by [facility], [facility] Conversion Knitter Mechanic Cerner at 06/27/2022 8:04 AM CDT documented in this encounter Plan of Treatment Not on file documented as of this encounter Visit Diagnoses Not on filedocumented in this encounter Care Teams Health Center Assistant Relationship Specialty Start Date End Date Sandra Orozco APRN [address] [address] PCP - General Nurse Practitioner 01/24/22 documented as of this encounter
--- OUTSIDE RECORDS SUMMARY | 2025-02-10 11:26 | XMS_ITS | Encounter Summary ---
Author Organization [facility] Address [address] [place] [address] Care Team Providers Care Tapper Balance Wheel Screw Hole Name Role Phone Adryan Cooper MD Primary Care Provider [phone] Encounter Details Date Type Department Care Team ([facility] Contact Info) Description 01/26/2025 Telephone [facility] [address] [place] [address] Sam Flores Social History Tobacco Use Types [...] Office Visit [facility] [address] [place] [phone] Sam Flores documented as of this encounter Visit Diagnoses Not on filedocumented in this encounter Additional Health Concerns Assessment Noted Time A Body Mass Index follow-up plan has been documented for the patient 11/12/2023 11:43 AM EDT documented as of this encounter Care Teams Tapper Balance Wheel Screw Hole Relationship Specialty Start Date End Date Adryan Cooper MD [address] [place], [place] [address] PCP - General 07/22/20 documented as of this encounter
[2025-02-10 11:59] LABS: Hematocrit 39.4 % (37.0-47.0); Hemoglobin 12.3 g/dL (12.2-16.2); Immature Granulocytes % 1.5 %; Mean Corpuscular HGB Conc 31.2 g/dL (31.8-35.4); Mean Corpuscular Hemoglobin 27.3 pg (27.0-31.2); Mean Corpuscular Volume 87.4 fl (81-99); Nucleated Red Blood Cells % 0 %; Platelet Count 175 K/mm3 (142-424); Red Blood Count 4.51 M/mm3 (4.20-5.40); Red Cell Distribution Width-SD 77.2 fL; White Blood Count 5.9 K/mm3 (4.8-10.8)
[2025-02-10 12:53] LABS: Alanine Aminotransferase 17 U/L (12-78); Albumin Level 4.0 g/dl (3.5-5.0); Albumin/Globulin Ratio 1.7 (1.1-1.8); Alkaline Phosphatase 109 U/L (38-126); Anion Gap 5.2 mEq/L (5-15); Aspartate Amino Transferase 31 U/L (14-36); Bilirubin,Total 0.4 mg/dl (0.2-1.3); Blood Urea Nitrogen 20 mg/dl (7-17); Calcium 8.8 mg/dl (8.4-10.2); Carbon Dioxide 32 mmol/L (22.0-30.0); Chloride 100 mmol/L (98-107); Cholesterol 193 mg/dl (140-200); Creatinine,Serum 0.90 mg/dl (0.52-1.04); Estimated Glomerular Filt Rate 63 ml/min (>60); GFR (African American) 76 ML/MIN (>60); Globulin 2.3 g/dL (1.3-3.2); Glucose 86 mg/dl (74-100); HDL Cholesterol 48 mg/dl (40-60); Potassium 4.2 mmoL/L (3.5-5.1); Sodium 133 mmol/L (136-145); Total Protein,Serum 6.3 g/dl (6.3-8.2); Triglycerides 89 mg/dl (30-150)
[2025-02-10 22:29] LABS: Hemoglobin A1C 5.0 % (4.0-6.0)
[2025-02-11 12:13] LABS: C-Reactive Protein, Cardiac 4.85 mg/L (0.00-3.00)
== END 2025-02-10 23:59 | disposition home or self-care (01) ==
LOC: LAB 11:22
PROVIDERS: PCP Nurse Practitioner Family; Visit Provider Nurse Practitioner Family
DX: D64.9 Anemia, unspecified (principal); R73.03 Prediabetes; E78.5 Hyperlipidemia, unspecified; I48.0 Paroxysmal atrial fibrillation; Z86.73 Personal history of transient ischemic attack (TIA), and cerebral infarction without residual deficits
CPT/HCPCS: 36415; 80053; 80061; 83036; 83695; 85025; 86141

== ENCOUNTER 2025-03-08 11:32 | Outpatient (CLI) | payer MEDICARE, OTHER, SELFPAY ==
--- OUTSIDE RECORDS SUMMARY | 2024-11-26 10:00 | XMS_ITS | Encounter Summary ---
Author Organization [facility] ystem Address [address] [place] [address] Care Team Providers Care President Practicing Urologist Name Role Phone Sandra Orozco APRN Primary Care Provider [phone] Reason for Visit * Reason Comments Shortness of Breath Encounter Details Date Type Department Care Team (Latest Contact Info) Description 11/26/2024 11:00 AM EDT Office Visit [facility] CARDIOLOGY [address] [facility] [address], [place] [address] Dina Solano APRN [address] [facility] [address] [place] [address] Paroxysmal atrial fibrillation (Primary Dx); History of [...] = 0.6 oz pur e alcohol) former [facility] Utilities Answer Date Recorded In the past 12 months has [employer] electric, gas, oil, or water company threatened [...] care, and heating? Not very hard 11/13/2024 [facility] of Occupat ional Health - Occupational Stress [...] GED or equivalent No 11/13/2024 Preferred Language Sammarinese 11/13/2024 PHQ-2 Answer Date Recorded Patient Health [...] 11:00 AM EDTAssociated Problem(s): Paroxysmal atrial fibrillation [id number] Continue Xarelto 15 mg p.o. daily Continue [...] Sandra Orozco APRN Date: 11/26/2024 Department: Minh [facility] C[facility]IOLOG[facility] [address] [facility] [address] [facility] [address] Chief Complaint: Chief Complaint Patient presents with Shortness of Breath Problem list: Paroxysmal atrial fibrillation/History of ischemic CVA/TIAs status post loop explant [id number] (Female, Age, CVA, PAD) PAF noted [...] to admission. She continues to see her flavor tank tender and has a follow-up appointment scheduled. She [...] Plan Assessment & Plan Paroxysmal atrial fibrillation [id number] Continue Xarelto 15 mg p.o. daily Continue [...] 3 months (around 02/25/2025). Patient or patient b2b outside sales representative verbalized consent for the use of Ambient Listening during the visit with Dina Solano APRN for chart documentation. 11/26/2024 10:42 EDT Dina Solano APRN [facility] Cardiology documented in this encounter Plan of Treatment Upcoming Encounters Date Type Department Care Team (Late st Contact Info) Description 08/17/2025 12:00 PM EDT Office Visit [facility] CARDIOLOGY [address] [facility] [address], [place] [address] Christy Kirk MD [address] [place] [facility] [address] [place] [address] documented as of this encounter Procedures Procedure Name Priority Date/Time Associated Diagnosis Comments LIPID PANEL Routine 12/01/2024 Hyperlipidemia LDL goal <55 documented in this encounter Results * Lipid Panel (02/10/2025 2:24 PM EST) Blood Dina Solano APRN LAB BLOOD ORDERABLES Final Re sult Performing Organization Address [facility] de Phone Number [facility] * Lipoprotein A (LPA) (02/10/2025) Blood Dina Solano APRN LAB BLOOD ORDERABLES Final Re sult Performing Organization Address [facility] Co de Phone Number [facility] * Hemoglobin A1c (02/10/2025) Blood Dina Solano APRN LAB BLOOD ORDERABLES Final Re sult Performing Organization Address [facility] Co de Phone Number [facility] * Comprehensive Metabolic Panel (02/10/2025) Blood Dina Solano APRN LAB BLOOD ORDERABLES Final Re sult Performing Organization Address [facility]/State/ZIP Co de Phone Number [facility] * CBC & Differential (02/10/2025) Blood Dina [employer] TELETYPESETTER MONITOR LAB BLOOD ORDERABLES Final Re sult Performing Organization Address [facility] Co de Phone Number [facility] * Lipid Panel (12/01/2024) Blood [employer] TELETYPESETTER MONITOR LAB BLOOD ORDERABLES Final Re sult Performing Organization Address City/[facility]/ZIP Co de Phone Number [facility]
[address] [place] [address], documented in this encounter Visit Diagnoses Diagnosis Paroxysmal atrial fibrillation- Primary Atrial fibrillation History of CVA (cerebrovascular accident) Transient ischemic attack (TIA), and cerebral infarction without residual deficits Chronic respiratory failure with hypoxia Hyperlipidemia LDL goal <55 Prediabetes Other abnormal glucose Anemia, unspecified type Chronic venous insufficiency of lower extremity Chronic obstructive pulmonary disease, unspecified COPD type documented in this encounter Care Teams President Practicing Urologist Relationship Specialty Start Date End Date Sandra Orozco APRN [address] [place] [address] PCP - General Internal Medicine 05/11/24 documented as of this encounter
--- OUTSIDE RECORDS SUMMARY | 2025-02-11 09:00 | XMS_ITS | Encounter Summary ---
Author Organization [facility] Address [address] [place] [address] Care Team Providers Care Rural Carrier Name Role Phone Adryan Cooper MD Primary Care Provider [phone] Reason for Referral * Consultation (Routine) - Authorized Specialty Diagnoses / Procedures Referred By Kane morse Referred To Contact Oral Surgery Diagnoses Dental caries Rey Moser DMD [address] [facility] [address] [place] [address] Phone: tel: fax: [facility] [address] [address] Phone: tel: fax: Referral ID Status Reason Start Date Expiration Date Visits Requested Visits Authorized [id number] Authorized Specialty Services Required 02/11/2025 08/13/2026 1 1 Reason for Visit * Reason Comments Encounter for Dental Examination I was referred for some cavities. This tooth (points to #20) has rotted and a piece broke off. Encounter Details Date Type Department Care Team (Late st Contact Info) Description 02/11/2025 9:00 AM EST Office Visit [facility] [address] [place] [address] Sam Flores Encounter for dental examination (Primary Dx); Dental caries Social History Tobacco Use Types Packs/Day Years Used Date Smoking Tobacco: Former Cigarettes Smokeless Tobacco: Never Tobacco Cessation:Counseling Given: Not Answered Alcohol Use Standard Drinks/Week Comments Not Currently 0 (1 standard drink = 0.6 oz pur e alcohol) Comments Unknown Sex and Gender Information Value Date Recorded Sex Assigned at Not on file Legal Sex Female 8:24 PM EDT Gender Identity Not on file Sexual Orientation Not on file documented as of this encounter Last Filed Vital Signs Vital Sign Reading Time Taken Comments Blood Pressure 111/69 02/11/2025 9:33 AM EST Pulse 70 02/11/2025 9:33 AM EST Temperature - - Respiratory Rate - - Oxygen Saturation - - Inhaled Oxygen Concentration - - Weight - - Height - - Body Mass Index - - documented in this encounter Functional Status * Dental Vitals Question Answer Date of Assessment Author BP 111/69 02/11/2025 9:33 AM EST Sam Carranza Pulse 70 02/11/2025 9:33 AM EST Sam Carranza * Dental Vitals Question Answer Date of Assessment Author BP 111/69 02/11/2025 9:33 AM EST Sam Carranza Pulse 70 02/11/2025 9:33 AM EST Sam Carranza documented as of this encounter Mental Status * Dental Vitals Question Answer Entry Date Author BP 111/69 02/11/2025 9:33 AM EST Sam Carranza Pulse 70 02/11/2025 9:33 AM EST Sam Carranza documented in this encounter Miscellaneous Notes * Progress Notes - Sam Flores - 02/11/2025 9:00 AM EST Images from the original note were not included. (S) Subjective: Patient presents to the OD clinic for their first appointment. The patient's chief complaint is: Chief Complaint Patient presents with Encounter for Dental Examination I was referred for some cavities. This tooth (points to #20) has rotted and a piece broke off. . History of Chief Complaint: Pt was referred from [facility] for evaluation of restorative treatment for #20 DL, 26 O, 29 D, and 30. Pt will return to [facility] for cleanings. Medical History: Past Medical History[1] Stability of Significant Medical Condition(s): Under the care of a Primary Care Provider Medications: Current Medications[2] Past Surgical History: Surgical History[3] Social History:Tobacco Use History[4] Social History Substance and Sexual Activity Alcohol Use Not Currently Social History Substance and Sexual Activity Drug Use Never Allergies: Allergies[5] (O) Objective: Vitals: Vitals: 02/11/25 0933 BP: 111/69 Pulse: 70 ASA: III Contraindications for Treatment: None Modifications Required for Treatment: Pt brings oxygen tank to appts. Extraoral and Soft Tissue Examination: Completed at this appointment. Extraoral Findings: Facial Symmetry Normal Skin Normal TMJ Normal Masticatory Muscles Normal Lymph Nodes Normal Thyroid Gland Normal Cranial Nerve Exam Normal Intraoral Findings: Lips Normal Labial and Buccal Mucosa Normal Vestibules and Alveolar Mucosa Abnormal/Variance: Right lingual desi. Gingiva Normal Hard and Soft Palate Normal Tonsillar Pillars, [place] Tonsils, Posterior Pharynx (Waldeyer's Ring) Normal Tongue Normal Floor of Mouth Normal Hard Tissue Findings: Missing #1-3, 13-17, and 32. Existing amalgam restorations: #4 DO, 12 DO, 18 SANDRINE, 19 O, 20 DO, 30 O, and 31 O. Caries: #20 DOBL, 26 DFL, #29 DL, #30 L. Attrition #6-11. Periodontal Findings: Probing depths mostly 1-4 mm. Pocket of 6 mm on distal lingual of #20 and class 2 mobility. Bleeding on probin.0%. Other Findings: Dry mouth (A) Assessment: Diagnosis: 1. Encounter for dental examination 2. Dental caries Comments: (P) Plan: Today the following processes were performed: Informed consent signed, Reviewed medical history, Reviewed medication history, Reviewed dental history, Reviewed allergies, Performed clinical examination, Completed odontogram, Completed periodontal charting, Referred patient to oral surgery for extraction of #20 and #26, Approved treatment plan, and Took patient to complete financial arrangements Additional Details: Evaluate #28 M and D for caries at next visit. Radiographic Interpretation Film Ordered: Panoramic and 4 BW Date Ordered: 01/22/25 Radiographic Indications: Radiographs taken at [facility] and imported into patient chart. Radiographic Observations: Maxillofacial Structures (including bone, sinus, TMJ): Pneumatization of maxillary sinuses. Dentition: Missing #1-3, 13-17, and 32. Existing amalgam restorations: #4 DO, 12 DO, 18 O and B/L, 19 O, 20 DO, 30 O, and 31 O. Caries: #20 DO, 26 D root, #29 D, #30 B/L. Marginal Periodontium: Moderate horizontal bone loss Apical Periodontium: WNL Other: Calcified stylohyoid ligaments Radiographic Interpretation/Diagnosis: Missing teeth, existing restorations, and caries. (D) Disposition: Patient will return to clinic for: #29 DL and #30 L composite restorations. Student Providers assigned: Sam Flores [1] Past Medical History: Diagnosis Date Personal history of other diseases of the circulatory system History of heart valve abnormality Personal history of other diseases of the digestive system History of gastroesophageal reflux (GERD) Personal history of other diseases of the digestive system History of irritable bowel syndrome Personal history of other diseases of the musculoskeletal system and connective tissue H/O degenerative disc disease Personal history of other diseases of the musculoskeletal system and connective tissue History of fibromyalgia Personal history of other diseases of the musculoskeletal system and connective tissue History of rheumatoid arthritis Personal history of other diseases of the musculoskeletal system and connective tissue History of spinal stenosis Personal history of other diseases of the nervous system and sense organs History of restless legs syndrome Personal history of other diseases of the nervous system and sense organs History of sleep apnea Personal history of other diseases of the respiratory system History of chronic obstructive lung disease Personal history of other mental and behavioral disorders History of depression Personal history of transient ischemic attack (TIA), and cerebral infarction without residual deficits History of transient cerebral ischemia Unspecified urinary incontinence Bladder leak [2] Current Outpatient Medications: albuterol (2.5 MG/3ML) 0.083% nebulizer solution, 3 mL (2.5 mg)., Disp: , Rfl: albuterol 108 (90 Base) MCG/ACT inhaler, Every 4 (Four) to 6 (six) hours., Disp: , Rfl: bumetanide (Bumex) 1 MG tablet, 1 tablet (1 mg)., Disp: , Rfl: dexlansoprazole (Dexilant) [address] capsule, 1 capsule (60 mg)., Disp: , Rfl: dicyclomine (Bentyl) 10 MG capsule, 1 capsule (10 mg)., Disp: , Rfl: fluconazole (Diflucan) 100 MG tablet, 1 tablet (100 mg)., Disp: , Rfl: HYDROcodone-acetaminophen (Prosper) 10-325 MG tablet, 1 tablet (10 mg of hydrocodone)., Disp: , Rfl: levocetirizine (Xyzal) 5 MG tablet, 1 tablet (5 mg)., Disp: , Rfl: montelukast (Singulair) 10 MG tablet, 1 tablet (10 mg)., Disp: , Rfl: potassium chloride ER (Micro-K) 10 MEQ ER capsule, 1 capsule (10 mEq)., Disp: , Rfl: pramipexole (Mirapex) 1 MG tablet, , Disp: , Rfl: spironolactone (Aldactone) 25 MG tablet, 1 tablet (25 mg)., Disp: , Rfl: tiZANidine (Zanaflex) 4 MG tablet, 1 tablet (4 mg)., Disp: , Rfl: venlafaxine XR (Effexor-XR) 150 MG 24 hr capsule, 2 capsules (300 mg)., Disp: , Rfl: Xarelto 15 MG tablet, TAKE ONE (15 MG) TABLET BY MOUTH DAILY, Disp: , Rfl: ASPIRIN 81 MG chewable tablet, , Disp: , Rfl: budesonide (Pulmicort) 1 MG/2ML nebulizer solution, INHALE 1 VIAL TWICE DAILY (Patient not taking: Reported on 02/11/2025), Disp: , Rfl: busPIRone (Buspar) 15 MG tablet, , Disp: , Rfl: [3] Past Surgical History: Procedure Laterality Date CHOLECYSTECTOMY N/A Cholecystectomy Laparoscopic from [employer] HYSTERECTOMY N/A Hysterectomy from [employer] MYRINGOTOMY W/ TUBES N/A myringotomy with tube placement from [employer] TONSILLECTOMY N/A Tonsillectomy from [employer] [4] Social History Tobacco Use Smoking Status Former Types: Cigarettes Smokeless Tobacco Never [5] Allergies Allergen Reactions Cefdinir Itching and Unknown - Patient states they do not know rxn details Celecoxib Other - please document in the comment field and Unknown - Patient states they do not know rxn details GI BLEED Dexamethasone Other - please document in the comment field SHAKES REALLY BAD Formoterol Anaphylaxis Gabapentin Swelling and Unknown - Patient states they do not know rxn details LEG SWELLING Glycopyrrolate Anaphylaxis Leflunomide Other - please document in the comment field and Unknown - Patient states they do not know rxn details REALLY BAD SORE THROAT, TINGLING IN HANDS, FELT LIKE THROAT WAS CLOSING UP Levofloxacin Other - please document in the comment field, Anxiety and Unknown - Patient states they do not know rxn details SHAKES, CLIMBS AVERY, CANNOT SLEEP Naproxen Other - please document in the comment field, Swelling and Unknown - Patient states they do not know rxn details SORE THROAT, HANDS TINGLING, FELT LIKE THROAT WAS CLOSING UP Nitrofurantoin Hives, Itching and Unknown - Patient states they do not know rxn details Nortriptyline Other - please document in the comment field SWELLING, TROUBLE TALKING, CRAMPS & WEAKNESS Penicillins Hives, Itching and Unknown - Patient states they do not know rxn details Tramadol Other - please document in the comment field Vancomycin Other - please document in the comment field Cosigned by Rey Moser DMD at 02/12/2025 4:28 PM EST Associated attestation - Rey Moser DMD - 02/12/2025 4:28 PM EST I was present with the dental student for the service. I personally examined the patient, authorized the procedures that were performed, and evaluated the performance of the procedure after it was completed. Rey Moser DMD documented in this encounter Plan of Treatment Upcoming Encounters Date Type Department Care Team (Late st Contact Info) Description 04/09/2025 12:30 PM EST Evaluation [facility] [address] [address] 04/15/2025 2:00 PM EST Office Visit [facility] [address] [place] [address] Sam Flores Scheduled Orders Name Type Priority Associated Diagnoses Orde r Schedule 29 DL 29 DL RESIN-BASED COMPOSITE - 2 SURFACES, POSTERIOR Dental Routine [address] arting 02/11/2025 30 L(V) 30 L(V) RESIN-BASED COMPOSITE - 1 SURFACE, POSTERIOR Dental Routine 1 Occurrenc es starting 02/11/2025 Scheduled Referrals Name Type Priority Associated Diagnoses Order Schedule Referral to Oral Maxillofacial Surgery Outpatient Referral Routine Dental caries Expected: 02/11/2025 (Approximate), Expires: 08/15/2026 documented as of this encounter Procedures Procedure Name Priority Date/Time Associated Diagnosis Comments COMPREHENSIVE ORAL EVALUATION - NEW OR ESTABLISHED PATIENT Routine 02/11/2025 9:00 AM EST Encounter for dental examination Dental caries 31 O AM[facility] FILLING Routine 02/11/2025 12:00 AM EST 30 O AMAL[facility]AM FILLING Routine 02/11/2025 12:00 AM EST 20 DO AMALGAM FILLING Routine 02/11/2025 12:00 AM EST 19 O AMAL[place]AM FILLING Routine 02/11/2025 12:00 AM EST 18 SANDRINE AMAL[facility]AM FILLING Routine 02/11/2025 12:00 AM EST 12 DO AMAL[facility]AM FILLING Routine 02/11/2025 12:00 AM EST 4 DO AMALGAM FILLING Routine 02/11/2025 12:00 AM EST documented in this encounter Visit Diagnoses Diagnosis Encounter for dental examination- Primary Dental caries Unspecified dental caries documented in this encounter Additional Health Concerns Assessment Noted Time A Body Mass Index follow-up plan has been documented for the patient 11/12/2023 11:43 AM EDT documented as of this encounter Care Teams Rural Carrier Relationship Specialty Start Date End Date Adryan Cooper MD [facility] [address] PCP - General 07/22/20 documented as of this encounter
--- OUTSIDE RECORDS SUMMARY | 2025-02-16 11:00 | XMS_ITS | Encounter Summary ---
Author Organization [facility] ystem Address [address] [place] [address] Care Team Providers Care Finisher Map And Chart Name Role Phone Sandra Orozco APRN Primary Care Provider Reason for Visit * Reason Comments Hyperlipidemia Hypertension Encounter Details Date Type Department Care Team (Latest Contact Info) Description 02/16/2025 11:00 AM EST Office Visit [facility] CARDIOLOGY [address] [facility] [address], [place] [address] Dina Solano APRN [address] [facility] [address] [place] [address] Paroxysmal atrial fibrillation (Primary Dx); Moderate aortic valve regurgitation; Hyperlipidemia LDL goal <55; Chronic venous insufficiency of lower extremity; Chronic respiratory failure with hypoxia; Chronic obstructive pulmonary disease, unspecified COPD type; Anemia, unspecified type Social History Tobacco Use Types Packs/Day Years Used Date Smoking Tobacco: Former Cigarettes 2 45 Q uit: 05/10/2023 Smokeless Tobacco: Never Comments:Liked to smoke Alcohol Use Standard Drinks/Week Comments Not Currently 0 (1 standard drink = 0.6 oz pur e alcohol) former [facility] Utilities Answer Date Recorded In the past 12 months has [employer], gas, oil, or water company threatened [...] care, and heating? Not very hard 11/13/2024 [facility] - Occupational [...] Sign Reading Time Taken Comments Blood Pressure 114/63 02/16/2025 10:57 AM EST Pulse 73 02/16/2025 10:57 AM EST Temperature - - Respiratory Rate - - Oxygen Saturation - - Inhaled Oxygen Concentration - - Weight 82.6 kg (182 lb 3.2 oz) 02/16/2025 10:57 AM EST Height 152.4 cm (5') 02/16/2025 10:57 AM EST Body Mass Index 35.58 02/16/2025 10:57 AM EST documented in this encounter Progress Notes * Dina Solano APRN - 02/16/2025 11:00 AM ESTAssociated Problem(s): Paroxysmal atrial fibrillation [id number] HX CVA Continue Xarelto 15 mg p.o. daily Continue bisoprolol 5 mg p.o. daily Orders: Comprehensive Metabolic Panel; Future Comprehensive Metabolic Panel; Future CBC (No Diff); Future * Dina Solano APRN - 02/16/2025 11:00 AM ESTAssociated Problem(s): Moderate aortic valve regurgitation RVNV Asymptomatic * Dina Solano APRN - 02/16/2025 11:00 AM ESTAssociated Problem(s): Hyperlipidemia LDL goal <55 History of statin intolerance Not Afford Repatha Orders: Lipid Panel; Future * Dina Solano APRN - 02/16/2025 11:00 AM ESTAssociated Problem(s): Chronic venous insufficiency of lower extremity Encouraged compression hose use * Dina Solano APRN - 02/16/2025 11:00 AM ESTAssociated Problem(s): Respiratory failure with hypoxia Continue follow-up with pulmonary Supplemental oxygen 2 L nasal cannula * Dina Solano APRN - 02/16/2025 11:00 AM ESTAssociated Problem(s): COPD (chronic obstructive pulmonary disease) Follow-up with pulmonary * Dina Solano APRN - 02/16/2025 11:00 AM ESTAssociated Problem(s): Anemia Improved on labs 02/2025 * Dina Solano APRN - 02/16/2025 11:00 AM EST Images from the original note were not included. Cardiology Established Patient Note Name: Casi Cruz : 1960 PCP: Sandra Orozco APRN Date: 02/16/2025 Department: Minh BOUCHER [facility] CARDIOLOGY [address] [facility] [address] [facility] [address] Chief Complaint: Chief Complaint Patient presents with Hyperlipidemia Hypertension Problem list: Paroxysmal atrial fibrillation/History of ischemic CVA/TIAs status post loop explant [id number] (Female, Age, CVA, PAD) PAF noted [...] y.o. female who presents today for routine 3-month follow-up. History of Present Illness Overall patient is doing well. No changes since the last visit, remains on 2 L nasal cannula. Currently, she is not on any statin therapy due to intolerance of pravastatin, simvastatin, rosuvastatin. She has previously tried Repatha but found it too expensive. Also was unable to tolerate Zetia. She reports experiencing shortness of breath, which she attributes to physical exertion such as walking. She continues to receive care from a organic chemist. Her last echocardiogram was conducted in 11/2024. She has been experiencing persistent swelling in her feet. She has not increased her diuretic dosage but takes an occasional dose if the swelling does not subside. She is considering increasing her spironolactone dosage, we discussed we do not think her blood pressure would tolerate this. She has been monitoring her blood pressure at home, which typically reads around 90 when she is at rest. She is not currently taking Jardiance or Farxiga. She has been supplementing with potassium when she takes an extra diuretic pill, caution with this as she is also spironolactone. She has been attempting to elevate her legs and use compression hose but is looking for a pair that will not take into her legs. She has not been regularly weighing herself. FAMILY HISTORY - Son: Difficulty tolerating statin drugs The following data was reviewed by: Dina Solano APRN on 02/16/2025: Lab Results Component Value Date GLUCOSE 100 [...] found for: MICROALBUR Objective Vital Signs: BP 114/63 (BP Location: Left arm, Patient Position: Sitting) Pulse 73 Ht 152.4 cm (60 ) Wt 82.6 kg (182 lb 3.2 oz) BMI 35.58 kg/m?? Estimated body mass index is 35.58 kg/m?? as calculated from the following: Height as of this encounter: 152.4 cm (60 ). Weight as of this encounter: 82.6 kg (182 lb 3.2 oz). Constitutional: Appearance: Healthy appearance. Eyes: Pupils: Pupils are equal, round, and reactive to light. Pulmonary: Effort: Pulmonary effort is normal. Breath sounds: No wheezing. Comments: 2L NC Cardiovascular: Normal rate. Regular rhythm. Murmurs: There is a systolic murmur. Pulses: Intact distal pulses. Edema: Peripheral edema present. Ankle: bilateral trace edema of the ankle. Feet: bilateral trace edema of the feet. Abdominal: General: Bowel sounds are normal. Skin: General: Skin is warm and dry. Neurological: General: No focal deficit present. Assessment and Plan Assessment & Plan Paroxysmal atrial fibrillation [id number] 6 HX CVA Continue Xarelto 15 mg p.o. daily Continue bisoprolol 5 mg p.o. daily Orders: Comprehensive Metabolic Panel; Future Comprehensive Metabolic Panel; Future CBC (No Diff); Future Moderate aortic valve regurgitation RVNV Asymptomatic Hyperlipidemia LDL goal <55 History of statin intolerance Not Afford Repatha Orders: Lipid Panel; Future Chronic venous insufficiency of lower extremity Encouraged compression hose use Chronic respiratory failure with hypoxia Continue follow-up with pulmonary Supplemental oxygen 2 L nasal cannula Chronic obstructive pulmonary disease, unspecified COPD type Follow-up with pulmonary Anemia, unspecified type Improved on labs 02/2025 Summary: Repeat FLP prior to next visit, difficult to initiate medication due to intolerance and affordability. Follow Up Return in about 6 months (around 08/17/2025). Patient or patient claims representative verbalized consent for the use of Ambient Listening during the visit with Dina Solano APRN for chart documentation. 02/16/2025 14:08 EST Dina Solano APRN [facility] Cardiology documented in this encounter Plan of Treatment Upcoming Encounters Date Type Department Care Team (Late st Contact Info) Description 08/17/2025 12:00 PM EDT Office Visit [facility] CARDIOLOGY [address] [facility] [address], [place] [address] [phone] Christy Kirk MD [address] [facility] [address] [place] [address] Scheduled Orders Name Type Priority Associated Diagnoses Orde r Schedule Comprehensive Metabolic Panel Lab Routine Paroxysmal atrial fibrillation Expected: 05/17/2025 (Approximate), Expires: 05/17/2026 Comprehensive Metabolic Panel Lab Routine Paroxysmal atrial fibrillation Expected: 08/15/2025 (Approximate), Expires: 02/16/2026 CBC (No Diff) Lab Routine Paroxysmal atrial fibrillation Expected: 08/15/2025 (Approximate), Expires: 02/16/2026 Lipid Panel Lab Routine Hyperlipidemia LDL goal <55 Expected: 08/15/2025 (Approximate), Expires: 02/16/2026 documented as of this encounter Visit Diagnoses Diagnosis Paroxysmal atrial fibrillation- Primary Atrial fibrillation Moderate aortic valve regurgitation Hyperlipidemia LDL goal <55 Chronic venous insufficiency of lower extremity Chronic respiratory failure with hypoxia Chronic obstructive pulmonary disease, unspecified COPD type Anemia, unspecified type documented in this encounter Care Teams Finisher Map And Chart Relationship Specialty Start Date End Date Sandra Orozco APRN [address] [place] [address] SANDER BERMUDEZ [address] PCP - General Internal Medicine 05/11/24 documented as of this encounter
--- OUTSIDE RECORDS SUMMARY | 2025-02-24 09:00 | XMS_ITS | Encounter Summary ---
Author Organization [facility] Address [address] [place] [address] Care Team Providers Care Biomedical Service Engineer Name Role Phone Adryan Cooper MD Primary Care Provider [phone] Reason for Visit * Reason Comments Dental Pain Since Saturday this one in the front is hurting Encounter Details Date Type Department Care Team ([facility] st Contact Info) Description 02/24/2025 9:00 AM EST Office Visit [facility] [address] [place] [address] Kirstie Webb Pain due to dental caries (Primary Dx) Social History Tobacco Use Types Packs/Day Years Used Date Smoking Tobacco: Former Cigarettes Smokeless Tobacco: Never Alcohol Use Standard Drinks/Week Comments Not Currently [...] Sign Reading Time Taken Comments Blood Pressure 104/61 02/24/2025 9:13 AM EST Pulse 73 02/24/2025 9:13 AM EST Temperature - - Respiratory Rate - - Oxygen Saturation - - Inhaled Oxygen Concentration - - Weight - - Height - - Body Mass Index - - documented in this encounter Functional Status * Dental Vitals Question Answer Date of Assessment Author BP 104/61 02/24/2025 9:13 AM EST Massey onKirstie P Pulse 73 02/24/2025 9:13 AM EST Massey onKirstie P * Dental Vitals [place] [address] 02/24/2025 9:13 AM EST Massey on, Kirstie P Pulse 73 02/24/2025 9:13 AM EST Massey on, Kirstie P documented as of this encounter Mental Status * Dental Vitals Question Answer Entry Date Author BP 104/61 02/24/2025 9:13 AM EST Massey on, Kirstie P Pulse 73 02/24/2025 9:13 AM EST Massey on, Kirstie P documented in this encounter Miscellaneous Notes * Progress Notes - Kirstie Webb P - 02/24/2025 9:00 AM EST Images from the original note were not included. SHAPED Note (S) Section: Comp Care Coverage: Dr. Moser (H) Health: No Changes to History Vitals: 02/24/25 0913 BP: 104/61 Pulse: 73 (A) Assessment: Chief Complaint Patient presents with Dental Pain Since Saturday this one in the front is hurting (P/E) Planned and Executed Treatment: Consent signed and medical history reviewed. Pt presented to clinic with pain on #26 that has been occurring since Saturday. Tooth is non restorable. Pt sensitive to percussion and palpation (symp apical periodontitis) and there was not response to cold testing (necrosis). PA taken. Pt elected to have tooth extracted. #26 extracted in [facility]. Radiographic Interpretation Film Ordered: PA Date Ordered: 02/24/25 Radiographic Indications: pain, caries Radiographic Observations: Maxillofacial Structures (including bone, sinus, TMJ): n/a Dentition: caries #26 Marginal Periodontium: WNL Apical Periodontium: WNL Radiographic Interpretation/Diagnosis: D caries #26 Additional Images or Diagnostic Test Recommended: n/a (D) Disposition: Pt take to [facility] for extraction of #26 Cosigned by Rey Moser DMD at 02/25/2025 4:18 PM EST Associated attestation - Rey Moser DMD - 02/25/2025 4:18 PM EST I was present with the dental student for the service. I personally examined the patient, authorized the procedures that were performed, and evaluated the performance of the procedure after it was completed. Rey Moser DMD documented in this encounter Plan of Treatment Upcoming Encounters Date Type Department Care Team (Late st Contact Info) Description 04/09/2025 12:30 PM EST Evaluation [facility] [address] [address] 04/15/2025 2:00 PM EST Office Visit [facility] [address] [place] [address] Sam Flores documented as of this encounter Procedures Procedure Name Priority Date/Time Associated Diagnosis Comments 26 INTRAORAL - PERIAPICAL FIRST RADIOGRAPHIC IMAGE Routine 02/24/2025 9:00 AM EST Pain due to dental caries LIMITED ORAL EVALUATION - PROBLEM FOCUSED Routine 02/24/2025 9:00 AM EST Pain due to dental caries documented in this encounter Visit Diagnoses Diagnosis Pain due to dental caries- Primary documented in this encounter Additional Health Concerns Assessment Noted Time A Body Mass Index follow-up plan has been documented for the patient 02/24/2025 12:24 PM EST documented as of this encounter Care Teams Biomedical Service Engineer Relationship Specialty Start Date End Date Adryan Cooper MD [facility] [address] [address] PCP - General 07/22/20 documented as of this encounter
--- OUTSIDE RECORDS SUMMARY | 2025-02-24 11:00 | XMS_ITS | Encounter Summary ---
Author Organization [facility] Address [address] [place] [address] Care Team Providers Care Towel Distributor Name Role Phone Adryan Cooper MD Primary Care Provider Encounter Details Date Type Department Care Team (Late st Contact Info) Description 02/24/2025 11:00 AM EST Office Visit [facility] [address] [place] [address] Care, Dentistry Urgent Pain due to dental caries (Primary Dx) [...] as of this encounter Miscellaneous Notes * Progress Notes - Kirstie Webb P - 02/24/2025 11:00 AM EST Urgent Care Assessment Patient presented to [facility] due to pain on #26, vitals were taken on the 2nd floor and patient was then brought up to [facility] for extraction. No imaging or eval was completed in [facility] chair. Dental Pain This is a new problem. The current episode started in the past 7 days. The pain is at a severity of6/10. She has tried nothing for the symptoms. ROS Negative for: chest pain, fever, and fatigue Positive for: Shortness of breath, Patient has oxygen tank Patient is alert, awake, and well oriented. Medical/Surgical/Social/Family History I have reviewed and updated the patient history. Current Medications[1] No orders of the defined types were placed in this encounter. Allergies Cefdinir, Celecoxib, Dexamethasone, Formoterol, Gabapentin, Glycopyrrolate, Leflunomide, Levofloxacin, Naproxen, Nitrofurantoin, Nortriptyline, Penicillins, Tramadol, and Vancomycin Tobacco Use History[2] Patient reports that she does not currently use alcohol. Visit Vitals Smoking Status Former BP 104/61 Pulse 73 Assessment/Diagnosis: Tooth/teeth # : 26 Pulpal diagnosis: Pulp Necrosis Apical diagnosis: Symptomatic apical periodontitis Other diagnosis: Non restorable Plan/Procedure: Ext #26 Procedure Report Tooth #/Area: 26 Tooth/Teeth Prognosis: Hopeless Procedure: extract #26 Consent Obtained: Yes Anesthesia: 2% Lidocaine w/1:100,000 Epi 1.7mL - 3.5 - SHAY, Infiltration, and PDL N2O: No Description of Procedure: Profound Anesthesia achieved via: 2% Lidocaine w/1:100,000 Epi 1.7mL - 3.5 carpules - SHAY, Infiltration, and PDL. Throat pack placed an then removed to allow patient O2 levels to stabilize. A periosteal was used to separate tooth #26 from the gingival tissue. The tooth wasluxated from the socket using elevators of different sizes. Clinical crown fractured and flap was placed to allow for visualization by Shay Bird. Tooth was extracted from the socket with forceps. The socket was curetted and rinsed with saline. 3-0 Vicryl sutures placed. Hemostasis achieved. The patient was given gauze to bite on and was given post op instructions, verbally and written. Her oxygen tank ran out before the extraction began. Patients O2 levels were monitored throughout the procedure. Patient paid in kaplan on 1st floor. Complications: None Post-op Instructions: Verbal and Written Medications Prescribed: n/a OTC: Patient advised to take the prescribed analgesic given to here by her primary care physician. Follow up: As needed [1] Current Outpatient Medications: albuterol (2.5 MG/3ML) 0.083% nebulizer solution, 3 mL (2.5 mg)., Disp: , Rfl: albuterol 108 (90 Base) MCG/ACT inhaler, Every 4 (Four) to 6 (six) hours., Disp: , Rfl: ASPIRIN 81 MG chewable tablet, , Disp: , Rfl: budesonide (Pulmicort) 1 MG/2ML nebulizer solution, INHALE 1 VIAL TWICE DAILY (Patient not taking: Reported on 02/11/2025), Disp: , Rfl: bumetanide (Bumex) 1 MG tablet, 1 tablet (1 mg)., Disp: , Rfl: busPIRone (Buspar) 15 MG tablet, , Disp: , Rfl: dexlansoprazole (Dexilant) [address] capsule, 1 capsule (60 mg)., Disp: , Rfl: dicyclomine (Bentyl) 10 MG capsule, 1 capsule (10 mg)., Disp: , Rfl: fluconazole (Diflucan) 100 MG tablet, 1 tablet (100 mg)., Disp: , Rfl: HYDROcodone-acetaminophen (Raymond) 10-325 MG tablet, 1 tablet (10 mg [...] TABLET BY MOUTH DAILY, Disp: , Rfl: [2] Social History Tobacco Use Smoking Status Former Types: Cigarettes Smokeless Tobacco Never Cosigned by Rodrigo Bai DDS at 02/24/2025 2:12 PM EST Associated attestation - Rodrigo Bai DDS - 02/24/2025 2:12 PM EST I saw and evaluated the patient with the student. I discussed the case with the students and agree with the findings and plan as documented. documented in this encounter Plan of Treatment Upcoming Encounters Date Type Department Care Team (Late st Contact Info) Description 04/09/2025 12:30 PM EST Evaluation [facility] [address] [address] 04/15/2025 2:00 PM EST Office Visit [facility] [address] [place] [address] Sam Flores documented as of this encounter Procedures Procedure Name Priority Date/Time Associated Diagnosis Comments 26 EXTRACTION, ERUPTED TOOTH OR EXPOSED ROOT (ELEVATION AND/OR FORCEPS REMOVAL) Routine 02/24/2025 11:00 AM EST Pain due to dental caries documented in this encounter Visit Diagnoses Diagnosis Pain due to dental caries- Primary documented in this encounter Additional Health Concerns Assessment Noted Time A Body Mass Index follow-up plan has been documented for the patient 02/24/2025 12:24 PM EST documented as of this encounter Care Teams Towel Distributor Relationship Specialty Start Date End Date Adryan Cooper MD [facility] [address] [address] PCP - General 07/22/20 documented as of this encounter
--- OUTSIDE RECORDS SUMMARY | 2025-03-09 09:56 | XMS_ITS | Encounter Summary ---
Author Organization [facility] Address [address] [place] [address] Care Team Providers Care Ceramics Test Engineer Name Role Phone Adryan Cooper MD Primary Care Provider [phone] Encounter Details Date Type Department Care Team (Latest Contact Info) Description 02/24/2025 Travel Social History Tobacco Use Types Packs/Day [...] on file documented as of this encounter Functional Status * Communicable Disease Screening Question Answer Date of Assessment Author Have you been in contact wit h someone who was sick? No / Unsure 02/24/2025 8:54 AM EST Franck Alexander Do you have any of the following new or worsening symptoms? None of these 02/24/2025 8:54 AM EST Franck Alexander A * Travel Screening Question Answer Date of Assessment Author Have you traveled [place] or domestically in the last month? No 02/24/2025 8:54 AM EST Franck Cedeno documented as of this encounter Mental Status * Communicable Disease Screening Question Answer Entry Date Author Have you been in contact wit h someone who was sick? No / Unsure 02/24/2025 8:54 AM EST Franck Alexander A Do you have any of the following new or worsening symptoms? None of these 02/24/2025 8:54 AM EST Franck Alexander A * Travel Screening Question Answer Entry Date Author Have you traveled [place] or domestically in the last month? No 02/24/2025 8:54 AM EST InFranck solis documented in this encounter Plan of Treatment Upcoming Encounters Date Type Department Care Team (Late st Contact Info) Description 04/09/2025 12:30 PM EST Evaluation [facility] [address] [phone] 04/15/2025 2:00 PM EST Office Visit [facility] [address] [place] [address] Sam Flores documented as of this encounter Visit Diagnoses Not on filedocumented in this encounter Additional Health Concerns Assessment Noted Time A Body Mass Index follow-up plan has been documented for the patient 02/24/2025 12:24 PM EST documented as of this encounter Care Teams Ceramics Test Engineer Relationship Specialty Start Date End Date Adryan Cooper MD [facility] [address] PCP - General 07/22/20 documented as of this encounter
--- OUTSIDE RECORDS SUMMARY | 2025-03-09 09:56 | XMS_ITS | Encounter Summary ---
Author Organization [facility] Address [address] [place] [address] Care Team Providers Care Diabetes Specialist Name Role Phone Adryan Cooper MD Primary Care Provider [phone] Encounter Details Date Type Department Care Team (Late Contact Info) Description 02/22/2025 Telephone [facility] [address] [place] [address] Amanda Deras, DMD [address] [address] Social History Tobacco Use Types Packs/Day Years [...] encounter Miscellaneous Notes * Telephone Encounter - Liz Sloan - 02/22/2025 8:07 AM EST . documented in this encounter Plan of Treatment Upcoming Encounters Date Type Department Care Team (Late Contact Info) Description 04/09/2025 12:30 PM EST Evaluation [facility] [address] [address] 04/15/2025 2:00 PM EST Office Visit [facility] [address] [facility] [address] Sam Flores documented as of this encounter Visit Diagnoses Not on filedocumented in this encounter Additional Health Concerns Assessment Noted Time A Body Mass Index follow-up plan has been documented for the patient 11/12/2023 11:43 AM EDT documented as of this encounter Care Teams Diabetes Specialist Relationship Specialty Start Date End Date Adryan Cooper MD [facility] [address] PCP - General 07/22/20 documented as of this encounter
--- OUTSIDE RECORDS SUMMARY | 2025-03-09 09:56 | XMS_ITS | Encounter Summary ---
Author Organization [facility] Address [address] [place] [address] Care Team Providers Care Loan Coordinator Name Role Phone Adryan Cooper MD Primary Care Provider [phone] Encounter Details Date Type Department Care Team (Latest Contact Info) Description 02/11/2025 Travel Social History Tobacco Use Types Packs/Day [...] someone who was sick? No / Unsure 02/11/2025 8:44 AM EST Franck Alexander Do you have any of the following new or worsening symptoms? None of these 02/11/2025 8:44 AM EST Franck Alexander A * Travel Screening Question Answer Date of Assessment Author Have you traveled [place] or domestically in the last month? No 02/11/2025 8:44 AM EST Franck Cedeno documented as of this encounter Mental Status * Communicable Disease Screening Question Answer Entry Date Author Have you been in contact wit h someone who was sick? No / Unsure 02/11/2025 8:44 AM EST Franck Alexander A Do you have any of the following new or worsening symptoms? None of these 02/11/2025 8:44 AM EST Franck Alexander A * Travel Screening Question Answer Entry Date Author Have you traveled [place] or domestically in the last month? No 02/11/2025 8:44 AM EST InFranck solis documented in this encounter Plan of Treatment Upcoming Encounters Date Type Department Care Team (Late st Contact Info) Description 04/09/2025 12:30 PM EST Evaluation [facility] [address] [address] 04/15/2025 2:00 PM EST Office Visit [facility] [address] [place] [address] Sam Flores documented as of this encounter Visit Diagnoses Not on filedocumented in this encounter Additional Health Concerns Assessment Noted Time A Body Mass Index follow-up plan has been documented for the patient 11/12/2023 11:43 AM EDT documented as of this encounter Care Teams Loan Coordinator Relationship Specialty Start Date End Date Adryan Cooper MD [facility] [address] PCP - General 07/22/20 documented as of this encounter
--- OUTSIDE RECORDS SUMMARY | 2025-03-09 09:56 | XMS_ITS ---
Laboratory report Created on: February 09, 2025 JACKELYN GRECO : 1960 Sex: Female Author Organization Unknown PROBLEMS Problems List Code Description RESULTS Laboratory Orders Date Order Code Test 2024-08-24 [id number] CORTISOL, URINAR Y FREE Laboratory Results Date LOINC Test Value Unit Reference Range Interpre tation 2024-08-24 06177-3 CORTISOL,F,UG/L,U 1 UG/L UNDEFINED 2024-08-24 2147-7 CORTISOL,F,UG/24HR,U 1 UG/24 HR 6-42 L
--- OUTSIDE RECORDS SUMMARY | 2025-03-09 09:56 | XMS_ITS | Encounter Summary ---
Author Organization [facility] Address [address] [place] [address] Care Team Providers Care Thermostat Repairer Name Role Phone Adryan Cooper MD Primary Care Provider [phone] Encounter Details Date Type Department Care Team (Latest Contact Info) Description 02/23/2025 Travel Social History Tobacco Use Types Packs/Day [...] as of this encounter Functional Status * Travel Screening Question Answer Date of Assessment Author Have you traveled [place] or domestically in the last month? No 02/23/2025 10:14 AM EST Mych art, Generic documented as of this encounter Mental Status * Travel Screening Question Answer Entry Date Author Have you traveled [place] or domestically in the last month? No 02/23/2025 10:14 AM EST Mych art, Generic documented in this encounter Plan of Treatment Upcoming Encounters Date Type Department Care Team (Late st Contact Info) Description 04/09/2025 12:30 PM EST Evaluation [facility] [address] [address] 04/15/2025 2:00 PM EST Office Visit [facility] [address] [place] [address] Sam Flores documented as of this encounter Visit Diagnoses Not on filedocumented in this encounter Additional Health Concerns Assessment Noted Time A Body Mass Index follow-up plan has been documented for the patient 11/12/2023 11:43 AM EDT documented as of this encounter Care Teams Thermostat Repairer Relationship Specialty Start Date End Date Adryan Cooper MD [facility] [id number] PCP - General 07/22/20 documented as of this encounter
--- OUTSIDE RECORDS SUMMARY | 2025-03-09 09:56 | XMS_ITS ---
Laboratory report Created on: February 13, 2025 JACKELYN GRECO : 1960 Sex: Female Author Name KALIN COLEMAN [employer] Unknown PROBLEMS Problems List Code Description RESULTS Laboratory Orders Date Order Code Test 2025-02-10 [id number] LIPOPROTEIN (A) 2025-02-10 683283 C-REACTIVE PROTE IN, CARDIAC Laboratory Results Date LOINC Test Value Unit Reference Range Interpre tation 2025-02-10 54272-0 LIPOPROTEIN (A) 214.6 NMOL/L <75.0 H 2025-02-10 92288-4 C-REACTIVE PROTE IN, CARDIAC 4.85 MG/L 0.00-3.00 H
--- OUTSIDE RECORDS SUMMARY | 2025-03-09 09:56 | XMS_ITS ---
Laboratory report Created on: February 09, 2025 FANNIE JACKELYN : 1960 Sex: Female Author Organization Unknown PROBLEMS Problems List Code Description RESULTS Laboratory Orders Date Order Code Test 2023-12-16 [id number] ALK PHOS ISOENZY ME Laboratory Results Date LOINC Test Value Unit Reference Range Interpre tation 2023-12-16 6768-6 ALKALINE PHOSPHATASE 230 IU/L 44-121 H 2023-12-16 83973-4 LIVER FRACTION: 14 % 18-85 L 2023-12-16 14758-9 BONE FRACTION: 29 % 14-68 2023-12-16 80740-6 INTESTINAL FRAC: 56 % 0-18 H
--- OUTSIDE RECORDS SUMMARY | 2025-03-09 09:56 | XMS_ITS ---
Laboratory report Created on: February 09, 2025 JACKELYN GRECO : 1960 Sex: Female Author Organization Unknown PROBLEMS Problems List Code Description RESULTS Laboratory Orders Date Order Code Test 2024-08-18 [id number] ACTH, PLASMA Laboratory Results Date LOINC Test Value Unit Reference Range Interpre tation 2024-08-18 2141-0 ACTH, PLASMA 12 PG/ML 7.2-63.3
--- OUTSIDE RECORDS SUMMARY | 2025-03-09 09:57 | XMS_ITS ---
Laboratory report Created on: February 09, 2025 JACKELYN GRECO : 1960 Sex: Female Author Organization Unknown PROBLEMS Problems List Code Description RESULTS Laboratory Orders Date Order Code Test 2024-06-22 [id number] ACUTE HEPATITIS 2024-06-22 [id number] RHEUMATOID FACTO R (RF) 2024-06-22 [id number] MARSHALL BY IFA RFX T ITER/PATTERN Laboratory Results Date LOINC Test Value Unit Reference Range Interpre tation 2024-06-22 54404-8 HEP A AB, IGM N NEGATIVE 2024-06-22 5196-1 HBSAG SCREEN N NEGATIVE 2024-06-22 15841-6 HEP B CORE AB, IGM N NEGATIVE 2024-06-22 66498-9 HCV AB NR NON REACTIVE 2024-06-22 19897-3 RHEUMATOID FACTOR (RF) 16.6 IU/ML <14.0 H 2024-06-22 57786-3 MARSHALL BY IFA RFX TITER/PATTERN N
--- OUTSIDE RECORDS SUMMARY | 2025-03-09 09:57 | XMS_ITS | Encounter Summary ---
Author Organization [employer] ([place], [place], [place], [place], [place]) Address [address] [place] [address] Care Team Providers Care Art Therapist Name Role Phone OrozcoSheri randhawaagustin MIRANDA Primary Care Provider Encounter Details Date Type Department Care Team (Late st Contact Info) Description 01/25/2020 Transcribed Document [facility] Family Medicine [address] [place] [address] ProviderAide MD [address] [place] [address] Social History Tobacco Use Types Packs/Day Years Used Date Smoking Tobacco: Never Assessed Comments Unknown Sex and Gender Information Value Date Recorded Sex Assigned at Not on file Legal Sex Female 2:35 PM CDT Gender Identity Not on file Sexual Orientation Not on file documented as of this encounter Miscellaneous Notes * Cerner Conversion Note - Historical ProviderMD - 01/25/2020 6:55 AM MARINE BIOLOGIST DATE OF ADMISSION: 01/22/2020 HISTORY OF PRESENT [...] applying ice and heat, physical therapy, exercise, zmip-kja-lmzecuy medication, bed rest going to Pain Clinic, [...] to contact her primary physician and her supervisor smoke control to see if we can hold the [...] visit and the patient has been afebrile. /[id number] Karim Chaparro, MD, JELANI Pain Certified KR/AQ / KR / MODL CC: MD Sandra Valero APRN Electronically signed by [facility], [facility] Conversion Medical Photographer Cerner at 06/27/2022 8:04 AM CDT documented in this encounter Plan of Treatment Not on file documented as of this encounter Visit Diagnoses Not on filedocumented in this encounter Care Teams Art Therapist Relationship Specialty Start Date End Date Sandra Orozco APRN [address] [address] PCP - General Nurse Practitioner 01/24/22 documented as of this encounter
--- OUTSIDE RECORDS SUMMARY | 2025-03-09 09:57 | XMS_ITS ---
Laboratory report Created on: February 09, 2025 JACKELYN GRECO : 1960 Sex: Female Author Name ROMI MARTI Organization Unknown PROBLEMS Problems List Code Description RESULTS Laboratory Orders Date Order Code Test 2024-11-13 [id number] FOLATE, RBC Laboratory Results Date LOINC Test Value Unit Reference Range Interpre tation 2024-11-13 2282-2 FOLATE, HEMOLYSATE 538 NG/ML 2024-11-13 4544-3 HEMATOCRIT 40.7 % 34.0-46.6 2024-11-13 2283-0 FOLATE, RBC 1322 NG/ML >498
--- OUTSIDE RECORDS SUMMARY | 2025-03-09 09:57 | XMS_ITS | Data Portability ---
Author Organization [facility] [employer] - Clint Frye MD [facility] Address [address] [place] [address] Care Team Providers Care Microfilm Camera Operator Name Role Phone GLADIS DELCID Primary [...] to mix with alcohol, or self-escalate it. [email or web address] Not available 12/10/2021 19:02:32 Plan of Treatment Reminders Order Date Submit Date Provider Last Modified By Organization Details Last Modified Time Details Appointments None recorded. Lab None recorded. Referral None recorded. Procedures None recorded. Surgeries None recorded. Imaging None recorded. Medication Orders Amery 10 mg-325 mg tablet 2021 022 [facility], [facility] [address] [place] [place], [id number], 17:21:53 tizanidine 2 mg tablet 2021 022 [facility], [address] [facility] [address] [place], [id number], 16:55:31 Patient TargetsNo targets recorded. Patient Instructions Encounter Date Encounter Id Patient Instructions Last Modified By Organization Details Last Modified Time 12/06/2021 [id number] Patient is to us e non-pharmacologic measures [...] MD and supervision of: Aaliyah Olson MD. [email or web address] Not available 12/10/2021 19:03:54 Reason for Referral None Reported. Problems Name Problem SNOMED Code Status Onset Date Resolution Date Notes Provider Name and Address Organization Details Recorded Time Chronic pain 36427342 Active 2020 (G89.29)O ther chronic pain Not Available [facility] 2 22:51:15 Spondylos is without myelopath y 47190262 Active 2020 (M47.816) Spondylos is without myelopath y or radiculop athy, lumbar region Not Available [facility] 2 22:51:15 Lumbosacr al spondylos is without myelopath y 41434441 Active 2020 (M47.817) Spondylos is without myelopath y or radiculop athy, lumbosacr al region Not Available [facility] 2 22:51:15 Degenerat ion of lumbosacr al intervert ebral disc 54918917 Active 2020 (M51.37)O ther intervert ebral disc degenerat ion, lumbosacr al region Not Available [facility] 2 22:51:15 Lumbosacr al radiculop athy 5126301 Active 2020 (M54.17)R adiculopa thy, lumbosacr al region Not Available [facility] 2 22:51:15 Muscle pain 80216256 Active 2020 (M79.1)My algia Not Available [facility] 2 22:51:15 Pre-surge ry testing Active 2020 (Z01.812) Encounter for preproced ural laborator y examinati on Not Available [facility] 2 22:51:16 Opioid dependenc e 00180719 Active 2020 (F11.20)O pioid dependenc e, uncomplic ated Not Available [facility] 2 22:51:15 Long-term current use of opiate analgesic drug 41396002792 4108 Active 2020 (Z79.891) oysterman (current) use of opiate analgesic Not Available [facility] 2 22:51:16 Lumbar spondylos is 495706687 Active 2020 (M47.26)O ther spondylos is with radiculop athy, lumbar region Not Available [facility] 2 22:51:15 Lumbosacr al spondylos is with radiculop athy 857073955 Active 2020 (M47.27)O ther spondylos is with radiculop athy, lumbosacr al region Not Available [facility] 2 22:51:15 Spasm of back muscles 865086094 Active 2021 [facility] 2 16:53:49 Problem Notes None recorded. Medical Equipment None Reported. Allergies Allergen ID Allergen Name Allergen Category Reaction Reaction Severity Criticality Documentation Date Start Date Code Code System Note Provider Name and Address Organization Details Recorded Time 63189 Celebrex medicatio n Not available Not available Not available 07/11/20212020 88966 7 RxNorm React ion: Blood in stool s(Mil d) Not Available [facility] 2 22:02:48 05009 leflunomi de Not available Not available Not available Not available 07/11/20212020 86538 RxNorm React ion: reall y bad sores (Mild ) Not Available [facility] 2 22:02:48 57740 Penicilli n Not available itching mild Not available 07/11/20212020 22533 RxNorm Not Available [facility] 2 22:02:48 83921 gabapenti n medicatio n Not available Not available Not available 07/11/20212020 17478 RxNorm React ion: BAD swell ing(M ild) Not Available [facility] 2 22:02:48 96860 nortripty line hydrochlo ride medicatio n Not available Not available Not available 07/11/2021202013 0 RxNorm Not Available [facility] 2 22:02:48 36078 Naprosyn medicatio n Not available Not available Not available 07/11/20212020 2 RxNorm React ion: throa t clos ed (M ild) Not Available [facility] 2 22:02:48 33155 Macrobid medicatio n Not available Not available Not available 07/11/20212020 93927 1 RxNorm React ion: hives and itchi ng(Mi ld) Not Available [facility] 2 22:02:48 Medications Name Sig [...] Updated DateTime 2 152.4 cm 28.1 kg/m2 10593.3 g 98.9 [degF] 62 /min 97 % [...] ICD10 Code Diagnosis IMO Codes Diagnosis Note [id number] Claribel Ramsay, SALVAGE ENGINEER [address] [facility] [address] [place] [address] 12/06/2021 16:00:41 12/07/2021 16:37:14 Long-term current use of opiate analgesic drug [id number] 48446 Z79.891 Patient is noted to be low risk for opioids due to: previous hx of compliance UDS reviewed on and is Appropriat e all previous MOHSEN reviewed and is Appropriat e Opioid dependence 677874 00 F11.20 Medication compliance : According to [...] follows none Lumbosacra l spondylosis with radiculopathy 355155833 M47.27 patient says she is able to usually make this this Rx last about 2 month is using only prn would like to come back in 2 months Spasm of back muscles 20 9904554 M62.830 stable with meds, no changes Health Concerns Section Related Observation LastModified by Organization Detai ls LastModified Time None Recorded Concern Status LastModified by Organization Details LastModified Time None Recorded Advance Directives Directive None Recorded Payers Insurance Date Sequence Insurance Name Policy Number Policy Sanchez Covered Member ID Sanchez Member ID Guarantor Name 12/06/2021 1 [place] Casi Cruz [id number] Casi Cruz 12/06/2021 2 COMBINED INSURANCE - [employer] (MEDICARE SUPPLEMENT) Casi Cruz [id number] Casi Cruz Notes Date Note Type Note [...]
--- OUTSIDE RECORDS SUMMARY | 2025-03-09 09:57 | XMS_ITS | Encounter Summary ---
Author Organization [employer] ([place], [place], [place], [place]) Address [address] [place] [address] Care Team Providers Care Training And Development Project Leader Name Role Phone OrozcoSheri randhawaagustin MIRANDA Primary Care Provider Encounter Details Date Type Department Care Team (Late st Contact Info) Description 03/01/2020 Transcribed Document [facility] [place] [address] ProviderAide MD [address] [place] [address] Social History Tobacco Use Types Packs/Day [...] Aide Reed MD - 03/01/2020 11:34 AM STEM DRYER MAINTAINER DATE OF PROCEDURE: 03/01/2020 SURGEON: Noemi [...] 18-gauge Tuohy needle was advanced by the [id number] technique under direct fluoroscopic guidance into the [...] visit and the patient has been afebrile. /[id number] Noemi Mayfield MD, JELANI Pain Certified DELILAH/ANTHONY / KR / MODL /[id number] documented in this encounter Plan of Treatment Not on file documented as of this encounter Visit Diagnoses Not on filedocumented in this encounter Care Teams Training And Development Project Leader Relationship Specialty Start Date End Date Snadra Orozco, GENERAL SUPERINTENDENT [address] [place] [address] PCP - General Nurse Practitioner 01/24/22 documented as of this encounter
--- OUTSIDE RECORDS SUMMARY | 2025-03-09 09:57 | XMS_ITS ---
Laboratory report Created on: February 09, 2025 JACKELYN GRECO : 1960 Sex: Female Author Organization Unknown PROBLEMS Problems List Code Description RESULTS Laboratory Orders Date Order Code Test 2024-09-18 [id number] VITAMIN B1 (THIA MINE), BLOOD Laboratory Results Date LOINC Test Value Unit Reference Range Interpre tation 2024-09-18 00947-6 VIT B1, WHOLE BLOOD 79.8 NMOL/L 66.5-200. 0
--- OUTSIDE RECORDS SUMMARY | 2025-03-09 09:57 | XMS_ITS ---
Laboratory report Created on: February 09, 2025 JACKELYN GRECO : 1960 Sex: Female Author Organization Unknown PROBLEMS Problems List Code Description RESULTS Laboratory Orders Date Order Code Test 2024-09-18 800078 VITAMIN B6, URMILA ARCOS Laboratory Results Date LOINC Test Value Unit Reference Range Interpre tation 2024-09-18 58118-2 VITAMIN B6 2.1 UG/L 3.4-65.2 L
--- OUTSIDE RECORDS SUMMARY | 2025-03-09 09:57 | XMS_ITS ---
Laboratory report Created on: February 09, 2025 JACKELYN GRECO : 1960 Sex: Female Author Organization Unknown PROBLEMS Problems List Code Description RESULTS Laboratory Orders Date Order Code Test 2023-06-05 [id number] ANTINUCLEAR AB M ULTIPLEX RFX 9 Laboratory Results Date LOINC Test Value Unit Reference Range Interpre tation 2023-06-05 8061-4 MARSHALL DIRECT N NEGATIVE
--- OUTSIDE RECORDS SUMMARY | 2025-03-09 09:57 | XMS_ITS | Clinical Summary ---
[facility] Address [address] [place] [address] Care Team Providers Care Tightening Machine Operator Name Role Phone Sandra Orozco APRN [...] Swelling all over Nortriptyline Swelling Low 04/15/2024 Penicillins Itching Low 04/18/2020 Poison Monroe Extract Hives,Itching,Swell ing,Rash Low 04/15/2024 Poison oak/poison [...] PHARMACY MEDS TO BED CONSULT Use Daily. 5 Active HYDROcodone-gudelia taminophen (NORCO) 5-325 MG per tablet Take 1 tablet by mouth Every 4 (Four) Hours As Needed. 5 Active ALBUTEROL SULFATE ER PO Take by mouth. A ctive Active Problems Problem Noted Date Diagnosed Date Respiratory failure with hypoxia 11/13/2024 Assessment & Plan (02/16/2025 1:43 PM EST): Continue follow-up with pulmonary Supplemental oxygen 2 L nasal cannula Assessment & Plan (11/26/2024 10:50 AM EDT): Continue follow-up with pulmonary provider Edema 11/13/2024 SMOOTH (obstructive sleep apnea) 11/13/2024 Anemia 11/13/2024 Assessment & Plan (02/16/2025 1:43 PM EST): Improved on labs 02/2025 Assessment & Plan (11/26/2024 2:20 PM EDT): Insurance pending iron infusions Orders: CBC & Differential; Future Stage 3a chronic kidney disease 11/13/2024 Elevated troponin 11/13/2024 Pyuria 11/13/2024 COPD (chronic obstructive pulmonary disease) 07/2024 Assessment & Plan (02/16/2025 1:43 PM EST): Follow-up with pulmonary Assessment & Plan (11/26/2024 2:20 PM EDT): Continue follow-up with pulmonary GERD without esophagitis 11/13/2024 Anxiety associated with depression 11/13/2024 Primary hypertension 11/13/2024 Shortness of breath 11/12/2024 Assessment & Plan (11/12/2024 12:51 PM EDT): Patient presents to the office today after following up with pulmonology yesterday with concerns of worsening shortness of breath and lower extremity edema. Her it admin was concerned about heart failure and advised [...] Paroxysmal atrial fibrillation 07/16/2024 Assessment & Plan (02/16/2025 1:43 PM EST): [id number] HX CVA Continue Xarelto 15 mg p.o. daily Continue bisoprolol 5 mg p.o. daily Orders: Comprehensive Metabolic Panel; Future Comprehensive Metabolic Panel; Future CBC (No Diff); Future Assessment & Plan (11/26/2024 2:20 PM EDT): [id number] Continue Xarelto 15 mg p.o. daily Continue [...] Assessment & Plan (07/16/2024 12:10 PM EDT): [id number] Continue Xarelto 15 mg p.o. daily, [...] aortic valve regurgitation 05/09/2024 Assessment & Plan (02/16/2025 1:43 PM EST): RVNV Asymptomatic Assessment & Plan (11/12/2024 12:51 PM EDT): [...] LDL goal <55 05/09/2024 Assessment & Plan (02/16/2025 1:43 PM EST): History of statin intolerance Not Afford Repatha Orders: Lipid Panel; Future Assessment & Plan (11/26/2024 10:50 AM EDT): [...] of lower extremity 05/09/2024 Assessment & Plan (02/16/2025 1:43 PM EST): Encouraged compression hose use Assessment & Plan (11/26/2024 2:20 PM EDT): [...] Encounters Date Type Department Care Team Description 02/16/2025 11:00 AM EST Office Visit [facility] [address] [facility] [place] [address] Dina Solano APRN Paroxysmal atrial fibrillation (Primary Dx); Moderate aortic valve regurgitation; Hyperlipidemia LDL goal <55; Chronic venous insufficiency of lower extremity; Chronic respiratory failure with hypoxia; Chronic obstructive pulmonary disease, unspecified COPD type; Anemia, unspecified type 02/16/2025 Travel 02/10/2025 Telephone [facility] [address] [facility] [address] [facility] [address] [place] [address] Dina Solano APRN [facility] - LAB ORDERS 01/06/2025 Telephone [facility] [address] [place] [address] Dina Solano APRN from Last 3 Months Family History Medical [...] Shukla Relation Name Status Comments Father Stanislaw Shukla Social History Tobacco Use Types Packs/Day Years Used Date Smoking Tobacco: Former Cigarettes 2 45 Q uit: 05/10/2023 Smokeless Tobacco: Never Comments:Liked to smoke Alcohol Use Standard Drinks/Week Comments Not Currently 0 (1 standard drink = 0.6 oz pur e alcohol) former [facility] Utilities Answer Date Recorded [...] care, and heating? Not very hard 11/13/2024 [facility] - Occupational Stress [...] GED or equivalent No 11/13/2024 Preferred Language Yoruba 11/13/2024 PHQ-2 Answer Date Recorded Patient Health [...] Pulse 73 02/16/2025 10:57 AM EST Temperature 36.7 C (98.1 F) 11/14/2024 7:00 AM EDT Respiratory Rate 16 11/14/2024 7:00 AM EDT Oxygen Saturation 95% 11/13/2024 1:35 PM EDT Inhaled Oxygen Concentration - - Weight 82.6 kg (182 lb 3.2 oz) 02/16/2025 10:57 AM EST Height 152.4 cm (5') 02/16/2025 10:57 AM EST Body Mass Index 35.58 02/16/2025 10:57 AM EST Plan of Treatment Upcoming Encounters Date Type Department Care Team (Late st Contact Info) Description 08/17/2025 12:00 PM EDT Office Visit [facility] [address] [facility] [address] [id number] Christy Kirk MD [address] [place] [address] Health Maintenance Due Date Last Done Comments [...] VACCINE 10/09/2024 12/27/2023, 02/22/2023 COVID-19 Vaccine ( - 2024- season) 11/09/202402/2021, 06/16/2020 LUNG CANCER SCREENING 11/12/2025 11/12/2024 LIPID PANEL 02/10/2026 02/10/2025, 11/10, 07/06/2024 TDAP/TD VACCINES (3 - Td or Tdap) 11/09/2027 11/08/2017, 06/22/2009, 08/29/2001 ZOSTER VACCINE Completed 04/28/2024, 12/27/2023 Procedures Procedure Name Priority Date/Time Associated Diagnosis Comments LIPID PANEL Routine 02/10/2025 2:24 PM EST Hyperlipidemia LDL goal <55 CBC AND DIFFERENTIAL Routine 02/10/2025 Anemia, unspecified type LIPOPROTEIN A (LPA) Routine 02/10/2025 Hyperlipidemia LDL goal <55 HEMOGLOBIN A1C Routine 02/10/2025 Prediabetes COMPREHENSIVE METABOLIC PANEL Routine 02/10/2025 Paroxysmal atrial fibrillation History of CVA (cerebrovascular accident) CT ANGIOGRAM CHEST PULMONARY EMBOLISM STAT 11/12/2024 7:46 PM EDT MAMMO SCREENING DIGITAL TOMOSYNTHESIS BILATERAL W CAD Routine 04/06/2015 9:03 AM EST from Last 3 Months or Most Recently Relevant to Health Maintenance Results * Lipid Panel (02/10/2025 2:24 PM EST) Blood SETiTN LAB BLOOD ORDERABLES Final Re sult Performing Organization Address [facility] Co de Phone Number [facility] * Lipoprotein A (LPA) (02/10/2025) Blood SETiTN LAB BLOOD ORDERABLES Final Re sult Performing Organization Address [facility]/ZIP Co de Phone Number [facility] * CBC & Differential (02/10/2025) Blood SETiTN LAB BLOOD ORDERABLES Final Re sult Performing Organization Address [facility] Co de Phone Number [facility] * Hemoglobin A1c (02/10/2025) Blood Dina Solano APRN LAB BLOOD ORDERABLES Final Re sult [facility] * Comprehensive Metabolic Panel (02/10/2025) Blood Dina Solano APRN LAB BLOOD ORDERABLES Final Re sult Performing Organization Address [facility] Co de Phone Number [facility] * CT Angiogram Chest Pulmonary Embolism (11/12/2024 7:46 PM EDT) Anatomical Region Laterality Modality Chest N/A Computed Tomogra phy 11/12/2024 8:22 PM EDT Impressions 11/12/2024 8:31 PM EDT No evidence of pulmonary embolus. No acute abnormality. Electronically Signed: Jed Machuca MD 11/12/2024 8:31 PM EDT Workstation ID: [id number] Narrative 11/12/2024 8:[address] ANGIOGRAM [...] MD 11/12/2024 8:31 PM EDT Workstation ID: [id number] us Logan Araujo MD IMG CT ORDERABLES Final Result * Mammo screening digital tomosynthesis bilateral (04/06/2015 [...] in patients with adenosis or dense breasts. [employer] For breast cancer detection in asymptomatic women- Age ACR Recommendations 35-40 Baseline Mammogram 40-49 Annual or Biannual Mammogram 50+ Annual Mammogram Annual physical and frequent self breast examination. Patient has been entered into an automatic reminder system. Addendum Reading Akash DIYA LIGHT Addendum Releasing Akash LIGHT Addendum Released Date Time- 04/19/15 1550 Addendum Sand Technologist- Jaylen BILATERAL SCREENING MAMMOGRAM WITH TOMOSYNTHESIS PNL- [...] in patients with adenosis or dense breasts. [employer] For breast cancer detection in asymptomatic women- Age ACR Recommendations 35-40 Baseline Mammogram 40-49 Annual or Biannual Mammogram 50+ Annual Mammogram Annual physical and frequent self breast examination. Patient has been entered into an automatic reminder system. Reading Akash DIYA Romero KULDEEP Releasing Akash LIGHT Released Date Time- 04/06/15 [...] in patients with adenosis or dense breasts. [employer] For breast cancer detection in asymptomatic women- Age ACR Recommendations 35-40 Baseline Mammogram 40-49 Annual or Biannual Mammogram 50+ Annual Mammogram Annual physical and frequent self breast examination. Patient has been entered into an automatic reminder system. Addendum Reading Radiologist- DIYA LIGHT Addendum Releasing Radiologist- DIYA LIGHT Addendum Released Date Time- 04/19/15 1550 Addendum Sand Technologist- Jaylen BILATERAL SCREENING MAMMOGRAM WITH TOMOSYNTHESIS PNL- [...] in patients with adenosis or dense breasts. [employer] For breast cancer detection in asymptomatic women- Age ACR Recommendations 35-40 Baseline Mammogram 40-49 Annual or Biannual Mammogram 50+ Annual Mammogram Annual physical and frequent self breast examination. Patient has been entered into an automatic reminder system. Reading Radiologist- DIYA LIGHT Releasing Radiologist- DIYA LIGHT Released Date Time- 04/06/15 1055 Sand Technologist- Dave Gregorio Mcgee MD [facility] MAMMOGRAPHY ORDERABLES Edite d Result - [...] or is breathing): Full Support Care Teams Tightening Machine Operator Relationship Specialty Start Date End Date Sandra Orozco APRN [address] [place] [id number] PCP - General Internal Medicine 05/11/24
--- OUTSIDE RECORDS SUMMARY | 2025-03-09 09:57 | XMS_ITS ---
Laboratory report Created on: February 09, 2025 JACKELYN GRECO : 1960 Sex: Female Author Organization Unknown PROBLEMS Problems List Code Description RESULTS Laboratory Orders Date Order Code Test 2023-09-28 [id number] SALIVARY CORTISO L X4, TIMED Laboratory Results Date LOINC Test Value Unit Reference Range Interpre tation 2023-09-28 30085-4 #1 SALIVARY CORTISOL .121 UG/DL 2023-09-28 40557-6 #2 SALIVARY CORTISOL .085 UG/DL 2023-09-28 [id number] #3 SALIVARY CORTISOL .074 UG/DL 2023-09-28 57734-1 #4 SALIVARY CORTISOL .064 UG/DL
--- OUTSIDE RECORDS SUMMARY | 2025-03-09 09:57 | XMS_ITS | Encounter Summary ---
Author Organization [facility] yste Address [address] [place] [address] Care Team Providers Care Science Liaison Name Role Phone Sandra Orozco APRN Primary Care Provider Reason for Visit * Reason Onset Date Comments [facility] - LAB ORDERS 02/10/2025 Encounter Details Date Type Department Care Team (Late st Contact Info) Description 02/10/2025 Telephone [facility] [address] [facility] [address], [place] [address] Dina Solano APRN [address] [facility] [address] [place], [place] [id number] [facility] - LAB ORDERS Social History Tobacco Use Types Packs/Day Years Used Date Smoking Tobacco: Former Cigarettes 2 45 Q uit: 05/10/2023 Smokeless Tobacco: Never Comments:Liked to smoke Alcohol Use Standard Drinks/Week Comments Not Currently 0 (1 standard drink = 0.6 oz pur e alcohol) former [facility] Utilities Answer Date Recorded In the past 12 months has [facility] electric, gas, oil, or water company threatened [...] care, and heating? Not very hard 11/13/2024 [facility] - Occupational Stress Questionnaire Answer Date Recorded [...] GED or equivalent No 11/13/2024 Preferred Language Ghanaian 11/13/2024 PHQ-2 Answer Date Recorded Patient Health [...] 10:08 AM EST FAXED LAB ORDERS TO [facility] [phone] * Telephone Encounter - Maki Banerjee RegSched Rep - 02/10/2025 10:00 AM EST Caller: Casi Cruz Relationship: Self Best call back number: [phone]* What form or medical record are you requesting: LAB ORDERS Who is requesting this form or medical record from you: [facility] How would you like to receive the form or medical records (pick-up, mail, fax): FAX If fax, what is the fax number: [phone]* Timeframe paperwork needed: KENAN, HAS BEEN FASTING AND WOULD LIKE LABS DRAWN THIS MORNING. documented in this encounter Plan of Treatment Upcoming Encounters Date Type Department Care Team (Late st Contact Info) Description 08/17/2025 12:00 PM EDT Office Visit [facility] [address] [facility] [address], [place] [address] Christy Kirk MD [address] [facility] [address] [place], [place] [id number] documented as of this encounter Visit Diagnoses Not on filedocumented in this encounter Care Teams Science Liaison Relationship Specialty Start Date End Date Sandra Orzoco APRN [address] [address] PCP - General Internal Medicine 05/11/24 documented as of this encounter
--- OUTSIDE RECORDS SUMMARY | 2025-03-09 09:57 | XMS_ITS | Data Portability ---
Author Organization [facility] NASEEM [place] Address [address] [place] [address] Care Team Providers Care Cork Tile Floor Layer Name Role Phone GLADIS DELCID Primary Care Provider Assessment Encounter Date Assessment Date Assessment LastModified by Organization Details LastModified Time 06/25/2024 06/25/2024 Plan: I have personally reviewed this patient's MOHSEN report as per [place] medical board guidelines and it was found [...] reviewed this patient's MOHSEN report as per [facility] board guidelines and it was found [...] reviewed this patient's MOHSEN report as per [place] medical board guidelines and it was found [...] reviewed this patient's MOHSEN report as per [place] medical board guidelines and it was found [...] treatment plan. [email or web address] Not available 12/22/2024 13:29:13 02/18/2025 02/18/2025 Plan: I have personally reviewed this patient's MOHSEN report as per [facility] board guidelines and it was found [...] have not helped her.) Medications: Will continue the pt's medication to hydrocodone 7.5/325, 3x/day. The pt denies any problems with the medication. She states the three pills/day do help her move more. (From ov on 12/22/24: She states if the iron transfusion helps her pain, she will just cut back on her pain medication. She is aware she should take 2 tablets/day for the first ten days, then she can increase to 3x/day, if needed.) (FRom ov on 10/27/24: Will continue norco [...] tablet daily at the next ov.) Dates: 02/28-03/30-04/29, May fill 02/26/25. Preventative Care: Referred by Juanita Gallagher APRN. Return to Clinic in two month to f/u on the treatment plan. [email or web address] Not available 02/18/2025 12:12:19 Plan of Treatment Reminders Order Date Submit Date Provider Last Modified By Organization Details Last Modified Time Details Appointments RECHECK 2025 10:45A M RAOUL KINSEY MD Not available Not available Not available Lab None recorded. Referral None recorded. Procedures None recorded. Surgeries None recorded. Imaging None recorded. Medication Orders hydrocodo ne 7.5 mg-acetam inophen 325 mg tablet 2024 025 [facility], [address] [place] [address] [place], [id number], 02/18/2025 10:47:53 hydrocodo ne 7.5 mg-acetam inophen 325 mg tablet 2024 025 [facility], [address] [place], [place] [address], [id number], 02/18/2025 10:47:53 hydrocodo ne 7.5 mg-acetam inophen 325 mg tablet 2024 025 [facility], [address] [place] [address], [place], [id number], 12/22/2024 11:18:36 hydrocodo ne 7.5 mg-acetam inophen 325 mg tablet 2024 025 [facility], [address] [place] [address], [place], [id number], 12/22/2024 11:18:36 hydrocodo ne 5 mg-acetam inophen 325 mg tablet 2024 025 [facility], [address] [place] [address], [place], [id number], 10/27/2024 11:27:38 hydrocodo ne 5 mg-acetam inophen 325 mg tablet 2024 025 [facility], [address] [place] [address], [place], [id number], 10/27/2024 11:27:38 hydrocodo ne 5 mg-acetam inophen 325 mg tablet 2024 025 [facility], [address] [place] [address], [place], [id number], 08/25/2024 11:08:17 hydrocodo ne 5 mg-acetam inophen 325 mg tablet 2024 025 [facility], [address] [place] [address], [place], [id number], 08/25/2024 11:08:18 hydrocodo ne 5 mg-acetam inophen 325 mg tablet 2024 025 [facility] 591, [address], [address], 06/25/2024 11:29:57 hydrocodo ne 5 mg-acetam inophen 325 mg tablet 2024 025 [facility], [address], [address], 06/25/2024 11:29:56 Patient TargetsNo targets recorded. Patient InstructionsNo instructions recorded. Reason for Referral None Reported. Results Created Date Observation Date Name Description Value Unit Range Abnormal Flag Note LastModifiedBy Organization Detail LastModifiedTime 08/26/1908/27/2024 HIGH RISK DRUG PANEL gabapentin NEGATI VE NG/mL <1000 normal Not Available [facility] [address] [place] [address], [phone], 08/30/2024 17:49:46 08/26/19 25 08/27/2024 HIGH RISK DRUG PANEL pregabalin, qt ur NEGATI VE NG/mL <1000 normal Not Available [facility] [address] [place] [address], [address], 08/30/2024 17:49:46 08/26/19 25 08/27/2024 HIGH RISK DRUG PANEL desmethyltra madol NEGATI VE NG/mL <100 normal Not Available [facility] [address] [place] [address], [address], 08/30/2024 17:49:46 08/26/19 25 08/27/2024 HIGH RISK DRUG PANEL tramadol NEGATI VE NG/mL <100 normal Not Available [facility] [address] [place] [address], [address], 08/30/2024 17:49:46 08/26/19 25 08/27/2024 HIGH RISK DRUG PANEL tapentadol NEGATI VE NG/mL <50 normal Not Available [facility] [address] [place] [address], [address], 08/30/2024 17:49:46 08/26/19 25 08/27/2024 HIGH RISK DRUG PANEL nortapentado l NEGATI VE NG/mL <50 normal Not Available [facility] [address] [place] [address], [address], 08/30/2024 17:49:46 08/26/19 25 08/27/2024 HIGH RISK DRUG PANEL ethyl glucuronide NEGATI VE NG/mL <500 normal Not Available [facility] [address] [place] [address], [address], 08/30/2024 17:49:46 08/26/19 25 08/27/2024 HIGH RISK DRUG PANEL ethyl sulfate NEGATI VE NG/mL <100 normal Not Available [facility] [address] [place] [address], [address], 08/30/2024 17:49:46 08/26/19 25 08/27/2024 HIGH RISK DRUG PANEL buprenorphin e NEGATI VE NG/mL <2 normal Not Available [facility] [address] [place] [address], [address], 08/30/2024 17:49:46 08/26/19 25 08/27/2024 HIGH RISK DRUG PANEL norbuprenorp shadi NEGATI VE NG/mL <2 normal Not Available [facility] [address] [place] [address], [address], 08/30/2024 17:49:46 08/26/19 25 08/27/2024 HIGH RISK DRUG PANEL naloxone NEGATI VE NG/mL <2 normal Not Available [facility] [address] [place] [address], [address], 08/30/2024 17:49:46 08/26/19 25 08/30/2024 HIGH RISK DRUG PANEL amphetamines NEGATI VE NG/mL <500 normal Not Available [facility] [address] [place] [address], [address], 08/30/2024 17:49:46 08/26/19 25 08/30/2024 HIGH RISK DRUG PANEL barbiturates NEGATI VE NG/mL <300 normal Not Available [facility] [address] [place] [address], [address], 08/30/2024 17:49:46 08/26/19 25 08/30/2024 HIGH RISK DRUG PANEL benzodiazepi rufus NEGATI VE NG/mL <100 normal Not Available [facility] [address] [place] [address], [address], 08/30/2024 17:49:46 08/26/19 25 08/30/2024 HIGH RISK DRUG PANEL marijuana metabolite NEGATI VE NG/mL <20 normal Not Available [facility] [address] [place] [address], [address], 08/30/2024 17:49:46 08/26/19 25 08/30/2024 HIGH RISK DRUG PANEL cocaine metabolite NEGATI VE NG/mL <150 normal Not Available [facility] [address] [place] [address], [address], 08/30/2024 17:49:46 08/26/19 25 08/30/2024 HIGH RISK DRUG PANEL methadone metabolite NEGATI VE NG/mL <100 normal Not Available [facility] [address] [place] [address], [address], 08/30/2024 17:49:46 08/26/19 25 08/30/2024 HIGH RISK DRUG PANEL opiates POSITI VE NG/mL <100 abnormal Not Available [facility] [address] [place] [address], [address], 08/30/2024 17:49:46 08/26/19 25 08/30/2024 HIGH RISK DRUG PANEL codeine NEGATI VE NG/mL <50 normal Not Available [facility] [address] [place] [address], [address], 08/30/2024 17:49:46 08/26/19 25 08/30/2024 HIGH RISK DRUG PANEL hydrocodone 3424 NG/mL <50 high Not Available [facility] [address] [place] [address], [address], 08/30/2024 17:49:46 08/26/19 25 08/30/2024 HIGH RISK DRUG PANEL hydromorphon e 186 NG/mL <50 high Not Available [facility] [address] [place] [address], [address], 08/30/2024 17:49:46 08/26/19 25 08/30/2024 HIGH RISK DRUG PANEL morphine NEGATI VE NG/mL <50 normal Not Available [facility] [address] [place] [address], [address], 08/30/2024 17:49:46 08/26/19 25 08/30/2024 HIGH RISK DRUG PANEL norhydrocodo ne 1612 NG/mL <50 high Not Available [facility] [address] [place] [address], [address], 08/30/2024 17:49:46 08/26/19 25 08/30/2024 HIGH RISK DRUG PANEL oxycodone NEGATI VE NG/mL <100 normal Not Available [facility] [address] [place] [address], [address], 08/30/2024 17:49:46 08/26/19 25 08/30/2024 HIGH RISK DRUG PANEL phencyclidin e NEGATI VE NG/mL <25 normal Not Available [facility] [address] [place] [address], [address], 08/30/2024 17:49:46 08/26/19 25 08/30/2024 HIGH RISK DRUG PANEL creatinine 226.2 mg/dL > or = 20.0 normal Not Available [facility] [address] [place] [address], [address], 08/30/2024 17:49:46 08/26/19 25 08/30/2024 HIGH RISK DRUG PANEL specific gravity 1.012 > or = 1.003 normal Not Available [facility] [address] [place], [address], 08/30/2024 17:49:46 08/26/1908/30/2024 HIGH RISK DRUG PANEL pH 5.7 4.5-9. 0 normal Not Available [facility] [address] [place], [address], 08/30/2024 17:49:46 08/26/1908/30/2024 HIGH RISK DRUG PANEL oxidant NEGATI VE mcg/m L <200 normal Not Available [facility] [address] [place], [address], 08/30/2024 17:49:46 08/26/1908/30/2024 HIGH RISK DRUG PANEL [...] condi tions . Opiat es Notes : Ponca codon e, Norhy droco done, Ponca morph one detec abbie is consi stent with the use of the drug Ponca codon e. Ponca morph one detec abbie is consi stent with the use of the drug Ponca morph one. Ponca morph one can be a presc ribed drug and is also a metab olite of Ponca codon e. Confi rmati on testi ng Perfo rmed at: [facility] [address] [place] [address] Labor atory Direc tor: ZEUS [place] V MARIELENA S CLIA: [id number] LDT Notes : Confi rmati on tests [...] 8am to 10pm EST Not Available [facility] [address] [place] [address], [address], 08/30/2024 17:49:46 08/26/1908/30/2024 HIGH RISK DRUG PANEL fentanyl NEGATI VE NG/mL <0.5 normal Not Available [facility] [address] [place], [address], 08/30/2024 17:49:46 08/26/1908/30/2024 HIGH RISK DRUG PANEL heroin metabolite, qt ur NEGATI VE NG/mL <10 normal Not Available [facility] [address] [place], [address], 08/30/2024 17:49:46 Result Notes None recorded. 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 Procedures Surgical History Date Name Laterality Status Provider Name and Address Organization Details Recorded Time 04/10/19 Date of Last Mammogram completed Amira Hogan [facility] 05/04/2024 14:53:23 tonsillectomy completed [facility] 06/29/2021 11:07:23 partial hysterectomy completed [facility] 06/29/2021 11:07:41 cholecystectomy completed [facility] 06/29/2021 11:07:49 Unlisted px accessory sinus completed Kailey Padilla [facility] 06/29/2021 11:08:12 Unlisted px phrnx adnd/tnsl completed Kailey Padilla [facility] 06/29/2021 11:08:24 procedure on vein completed Kailey Valerie Arroyo [facility] 06/29/2021 11:08:40 Appendectomy completed [facility] [...] Date: 2011 10:08 :22 AM; Not Available [facility] 6 12:52:49 036238 Celebrex medicatio n Not available Not available Not available 02/03/20162011 05616 7 RxNorm Comme nt: Creat ed By: Storm HigginsC reate d Date: 2011 10:08 :34 AM; Not Available [facility] 6 05:46:24 350935 Levaquin medicatio n Not available Not available Not available 02/03/20162011 80557 2 RxNorm Comme nt: Creat ed By: Storm HigginsC reate d Date: 2011 10:07 :37 AM; Not Available [facility] 6 08:06:37 716478 Macrobid medicatio n Not available Not available Not available 02/03/20162011 42185 1 RxNorm Comme nt: Creat ed By: Storm HigginsC reate d Date: 2011 10:08 :04 AM; Not Available [facility] 6 08:06:37 896663 Product containin g penicilli n (product) medicatio n Not available Not available Not available 06/29/2021 67133 8001 SNOMED Kailey Valerie null, [facility] 2 11:02:22 996192 gabapenti n medicatio n Not available Not available Not available 06/29/2021 10337 RxNorm Kailey Valerie null, [facility] 2 11:02:39 385788 leflunomi de medicatio n Not available Not available Not available 06/29/2021 50603 RxNorm Kailey Valerie null, [facility] 2 11:02:54 568691 Naprosyn medicatio n Not available Not available Not available 06/29/2021 2 RxNorm Kailey Valerie null, [facility] 2 11:03:06 820847 dextromet horphan hydrobrom mónica medicatio n Not available Not available Not available 05/04/2024 88495 0 RxNorm Amira Hogan [facility] 5 15:09:56 314990 Omnicef medicatio n Not available Not available Not available 05/04/2024 14761 RxNorm Amira Hogan [facility], [facility] 5 15:10:19 373716 nortripty line medicatio n Not available Not available Not available 05/04/2024 7531 RxNorm Amira Hogan [facility], [facility] 5 15:10:37 968736 Lyrica medicatio n Not available Not available Not available 05/04/2024 64910 1 RxNorm Amira Hogan null, [facility] 5 15:10:45 401727 celecoxib medicatio n gi bleed Not available high 02/18/20252024 26297 7 RxNorm Not Available luz - External Data Service - prod 5 04:22:37 098883 dexametha sone medicatio n other Not available low 02/18/20252024 3264 RxNorm Off rona ce Not Available luz - External Data Service - prod 5 04:22:37 802262 hydrocodo ne Not available hives itching other swelling Not available Not available Not available Not available high 02/18/20252024 5489 RxNorm Abdom inal pain, diffi culty swall owing Not Available luz - External Data Service - prod 5 04:22:37 636358 levofloxa catalina medicatio n other Not available low 02/18/20252024 51482 RxNorm Shake s Not Available luz - External Data Service - prod 5 04:22:37 539563 nitrofura ntoin medicatio n other Not available low 02/18/20252024 7454 RxNorm Swell ing all over Not Available luz - External Data Service - prod 5 04:22:37 901337 evolocuma b medicatio n other Not available low 02/18/20252024 83901 84 RxNorm Ever ythin g it had liste d Not Available luz - External Data Service - prod 5 04:22:37 356695 Penicilli n Not available itching mild Not available 02/18/20252020 61781 RxNorm Not Available luz - External Data [employer] - prod 5 04:22:49 226744 nortripty line hydrochlo ride medicatio n Not available Not available Not available 02/18/20252020 21229 0 RxNorm Not Available luz - External Data Service - prod 5 04:22:49 401232 cefdinir medicatio n Not available Not available high 02/18/20252021 16438 RxNorm Not Available luz - External Data Service - prod 5 04:22:56 345582 ciproflox acin medicatio n Not available Not available high 02/18/20252011 2551 RxNorm Not Available luz - [employer] Data [employer] - prod 5 04:22:56 750942 naproxen medicatio n Not available Not available high 02/18/20252021 7258 RxNorm SORE THROA T, HANDS TINGL ING, FELT LIKE THROA T WAS CLOSI NG UP Not Available luz - [email or web address] Data Service - prod 5 04:22:56 771419 nitrofura ntoin, macrocrys tals / nitrofura ntoin, monohydra te medicatio n Not available Not available high 02/18/20252011 44672 2 RxNorm Not Available luz - External Data Service - prod 5 04:22:56 876079 formotero l Not available anaphylax is Not available high 02/18/20252023 93397 RxNorm Not Available luz - [employer] Data Service - prod 5 04:23:02 339324 tramadol medicatio n other Not available low 02/18/20252023 83744 RxNorm Not Available luz [employer] Data Service - prod 5 04:23:02 115645 vancomyci n medicatio n other Not available low 02/18/20252023 15721 RxNorm Not Available luz - [email or web address] Data [employer] - prod 5 04:23:02 Medications Name Sig Start Date Stop Date [...] Available azithromy catalina 250 mg tablet TAKE 1 TABLET BY MOUTH EVERY Saturday AND SATURDAY active Not Available Not Available No t [...] Not Available clarithro mycin 500 mg tablet TAKE 1 TABLET BY MOUTH 2 TIMES A DAY WITH FOOD FOR 7 DAYS FOR INFECTIO N 02/15 completed Not Available Not Available Not Available [...] completed Not Available Not Available Not Available prednisol one acetate 1 % eye drops,samm pension instill 1 drop into BOTH eyes 3 TIMES A DAY FOR 7 DAYS active Not Available Not Available No t Available dipyridam ole 75 mg tablet Two [...] TABLET BY MOUTH 3 TIMES A DAY NEEDED active Not Available Not Available No t [...] Updated DateTime 5 152.4 cm 35.7 kg/m2 54664.4 g 8 94 % 2 L/min Blanca Gannon [facility] 5 11:11:53 Date Recorded Body height Body mass index (BMI) Body weight Pain severity - 0-10 verbal numeric rating [Score] - Reported Oxygen saturation Inhaled oxygen flow rate Heart rate Systolic And Diastolic Provider Name and Address Organization Details Last Updated DateTime 5 152.4 cm 34.8 kg/m2 42668.4 4 g 9 94 % 1 L/min 79 /min 122/64 mm[Hg] Blanca Gannon [facility] 5 10:45:12 Date Recorded Body height Body mass index (BMI) Body weight Pain severity - 0-10 verbal numeric rating [Score] - Reported Oxygen saturation Heart rate Systolic And Diastolic Provider Name and Address Organization Details Last Updated DateTime 5 152.4 cm 34.8 kg/m2 82045.4 4 g 6 93 % 82 /min 122/66 mm[Hg] Malena Sotomayor [facility] 5 10:51:07 Date Recorded Body height Body mass index (BMI) Body weight Pain severity - 0-10 verbal numeric rating [Score] - Reported Oxygen saturation Inhaled oxygen flow rate Heart rate Systolic And Diastolic Provider Name and Address Organization Details Last Updated DateTime 5 152.4 cm 35 kg/m2 73435.0 3 g 9 90 % 2 L/min 73.02 /min 118/64 mm[Hg] Blancalalo Gannon [facility] 5 10:50:52 Date Recorded Body height Pain severity - 0-10 verbal numeric rating [Score] - Reported Systolic And Diastolic Provider Name and Address Organization Details Last Updated DateTime 02/18/2025 152.4 cm 8 128/68 mm[Hg] Blanca Gannon [facility] 02/18/2025 10:08:51 Social History Question Answer Notes LastModified by [...] 06/29/2021 Are you currently employed? No disabled [place] [address] Information not available 05/04/2024 Mental Status None recorded. Family History Relationship Description Onset Age of this Age Resolved Age Notes LastModified by Organization Details LastModified Time Unspecified Relation Malignant neoplastic disease [email or web address] Not available 04/12 14:49:35 Unspecified Relation Diabetes mellitus [email or web address] Not available 04/12 14:49:35 Mother Familial cancer of breast [id number] Not available 04/12 14:49:35 Mother Malignant neoplasm of pancreas [email or web address] Not available 2024 14:51:13 Mother Chronic obstructive pulmonary disease [email or web address] Not available 2024 14:51:40 Father Hypercholest erolemia [...] Y Meningitis N Ulcers N Heart Attack (CA) N Mental Illness Y Ovarian Cancer N Diabetes N Rheumatic Fever N Bleeding Disorder N Tuberculosis N AIDS/HIV N Congestive Heart Failure (CHF) Y Eczema N Diverticulitis N Asthma Y Epilepsy/Seizures N Sleep Apnea Y Thyroid Disorder N Hepatitis N Heart Disease N Hypertension N Osteoporosis Y Gynecological History Statement/Question Response [...] ICD10 Code Diagnosis IMO Codes Diagnosis Note [id number] LUX FERNÁNDEZ MD [facility] [address] [place] [address] 01/18/2020 12:49:41 01/18/2020 15:14:53 Lumbar radiculopathy 701079560 M54.16 Time spent reviewing images, discussing the diagnosis and coordinati ng care: 30min [id number] DILIP BILL PA-C [facility] [address] [place] [address] 0 06/29/2021 10:15:51 07/04/2021 09:16:52 Lumbar radiculopathy 158006366 M54.16 [id number] GLENDA TUTTLE PA-C [facility] [address] [place] [address] 0 11/20/2021 10:07:54 11/27/2021 14:55:22 Lumbar spondylosis 573034099 M47.896 [id number] LUX FERNÁNDEZ MD SURGERY SCHEDULE [address] [place] [address] 02/09/2022 09:11:14 02/09/2022 10:30:20 [id number] LUX FERNÁNDEZ MD [facility] [address] [place] [address] 02/14/2022 13:50:04 02/26/2022 16:15:54 [id number] LUX FERNÁNDEZ MD [facility] [address] [place] [address] 03/15/2022 09:39:55 03/16/2022 16:35:55 Postoperative care [id number] Z48.89 [id number] JUANITA VALDERRAMA APRN [facility] [address] [place] [address] 10/03/2023 12:25:46 10/04/2023 04:49:26 Lumbar radiculopathy 999438543 M54.16 Compressio n fracture of lumbar spine 903840434 M48.56XA Impairment of balance 38 4435661 R26.89 Poor manual dexterity 30 9484773 R29.898 [id number] LIA MORAES MD SURGERY SCHEDULE [address] [place] [address] 1 11/01/2023 13:01:26 11/05/2023 10:00:09 [id number] RAOUL KINSEY MD PAIN MEDICINE CLOSED [address] [place] [address] 1 11/19/2023 13:39:01 11/19/2023 15:00:53 Chronic low back pain 590983580 M54.50 Degenerati on of lumbar intervertebral disc 53263642 M51.36 Spinal hilda nosis of lumbar region 35509584 M48.062 [id number] RAOUL KINSEY MD PAIN MEDICINE CLOSED [address] [place] [address] 1 11/26/2023 12:42:31 11/26/2023 12:56:48 Chronic low back pain 402867884 M54.50 Degenerati on of lumbar intervertebral disc 11068879 M51.36 Spinal hilda nosis of lumbar region 82217164 M48.062 [id number] BIANCA ESPAÑA PA-C NEUROSURG [facility] CLOSED [address] [facility] [place] [address] 11/26/2023 13:56:01 11/27/2023 04:57:02 Postoperative visit 628564309 Z48.89 [id number] RAOUL KINSEY MD PAIN MEDICINE CLOSED [address] [place] [address] 1 12/24/2023 12:33:05 12/24/2023 13:02:45 Chronic low back pain 807992402 M54.50 The prescripti on to be filled on 12/27/23 was cancelled. The prescripti on sent to [facility] was cancelled. Degenerati on of lumbar intervertebral disc 76528020 M51.362 Spinal hilda nosis of lumbar region 14053509 M48.062 [id number] BIANCA ESPAÑA PA-C [facility] [address] [facility] [address] [place] [address] 0 01/10/2024 09:40:04 01/11/2024 04:31:11 Lumbar radiculopathy 116531265 M54.16 [id number] RAOUL KINSEY MD PAIN MEDICINE CLOSED [address] [place] [address] 1 02/20/2024 12:35:26 02/20/2024 12:58:34 Chronic low back pain [id number] M54.50 Degenerati on of lumbar intervertebral disc 04074226 M51.362 Spinal hilda nosis of lumbar region [id number] M48.062 [id number] BIANCA ESPAÑA PA-C NEUROSURG NATALI [facility] CLOSED [address] [place] [address] 0 04/14/2024 13:13:45 04/15/2024 08:29:03 Lumbar radiculopathy [id number] M54.16 [id number] RAOUL KINSEY MD PAIN MEDICINE CLOSED [address] [place] [address] 1 04/16/2024 11:04:40 04/16/2024 11:22:08 Chronic low back pain [id number] M54.50 Degenerati on of lumbar intervertebral disc 41267745 M51.362 Spinal hilda nosis of lumbar region 36321609 M48.062 [id number] NIHARIK[place] [address] [place] [address] 1 05/04/2024 14:30:28 05/10/2024 04:08:11 Inversion of right nipple [id number] N64.59 Patient and I reviewed her medical [...] an as-needed basis. Decreased capillary filling time [id number] R94.39 [id number] RAOUL KINSEY MD PAIN MEDICINE CLOSED [address] [place] [address] 1 06/25/2024 11:02:23 06/25/2024 11:26:16 Chronic low back pain 388721219 M54.50 Degenerati on of lumbar intervertebral disc 69129088 M51.362 Spinal hilda nosis of lumbar region 66958434 M48.062 [id number] RAOUL KINSEY MD PAIN MEDICINE [address] [place] [address] 1 08/25/2024 10:26:44 08/25/2024 10:55:10 Chronic low back pain 430155366 M54.50 Degenerati on of lumbar intervertebral disc 98299915 M51.362 Spinal hilda nosis of lumbar region 14801971 M48.062 [id number] RAOUL KINSEY MD PAIN MEDICINE [address] [place] [address] 1 10/27/2024 10:42:37 10/27/2024 11:09:07 Chronic low back pain 429222863 M54.50 Degenerati on of lumbar intervertebral disc 84448595 M51.362 Spinal hilda nosis of lumbar region 59969753 M48.062 [id number] RAOUL KINSEY MD PAIN MEDICINE [address] [place] [address] 1 12/22/2024 10:37:41 12/22/2024 10:59:26 Chronic low back pain [id number] M54.50 Degenerati on of lumbar intervertebral disc 20492963 M51.362 Spinal hilda nosis of lumbar region 18845591 M48.062 [id number] RAOUL KINSEY MD PAIN MEDICINE [address] [place] [address] 1 02/18/2025 09:39:23 02/18/2025 10:15:56 Chronic low back pain 114015086 M54.50 Degenerati on of lumbar intervertebral disc 19503312 M51.362 Spinal hilda nosis of lumbar region 64793496 M48.062 Health Concerns Section Related Observation LastModified by Organization Detai ls LastModified Time None Recorded Concern Status LastModified by Organization Details LastModified Time None Recorded Advance Directives Directive None Recorded Payers Insurance Date Sequence Insurance Name Policy Number Policy Sanchez Covered Member ID Sanchez Member ID Guarantor Name 02/15/2025 1 [place] Casi Cruz [id number] Casi Cruz 02/15/2025 2 COMBINED INSURANCE - [employer] (MEDICARE SUPPLEMENT) Casi Cruz [id number] Casi Cruz Notes Date Note Type Note [...] 6 months ago. CBD-Denied. 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 She states she does take an yabe-hui-dcrcfnv stool softener/laxative. She does not want to use anything regularly. The pt is sleeping approximately 2-3 hours per night. The pt is not working. The pt reports that she has not fallen since her last ov. The pt ambulates without an AD. The pt is accompanied by a friend at today s visit.Etoh-Denied. Tobacco-Denied. CBD-Denied. RAOUL KINSEY MD [address] [place] [address], [phone], [facility] 08/25/2024 11:07:39 10/27/2024 text/html The pt [...] bladder-leaks. She states she does take an oapw-jgv-examecz stool softener/laxative. She states she has been [...] s visit.Etoh-Denied. Tobacco-Denied. CBD-Denied. 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 She states she does take an ageg-yxd-zxuwvjt stool softener/laxative. She states she has been [...] s visit.Etoh-Denied. Tobacco-Denied. CBD-Denied. RAOUL KINSEY MD [address] [place] [address], [phone], [facility] 12/22/2024 13:29:43 02/18/2025 text/html The pt complains of low back pain and multijoint pain. The pt did not have any new pain complaints. She is having problems with dry eyes. She is having more difficulty breathing secondary to the cold weather. (From ov on 12/22/24: The pt would like to have an increased dose of pain medication. She states all of her joints and her back hurts. She states she is having an iron transfusion on 12/23/24. The pt's son fxed his pelvis-anterior and posterior, and fxed L5. He has undergone sx on his pelvis bc it was unstable. He is still in the hospital, today.) (From ov on 06/25/24: The pt states [...] bladder-leaks. She states she does take an vfdy-wda-koyzooc stool softener/laxative. She states she has been [...] MD [facility] [place], [phone], [facility] 02/18/2025 12:12:48 OBGyn Episode No OBEpisode recorded.
--- OUTSIDE RECORDS SUMMARY | 2025-03-09 09:57 | XMS_ITS | Clinical Summary ---
Author Organization [facility] Address [address] [place] [address] Care Team Providers Care Gas Appliance Repairer Name Role Phone Adryan Cooper MD Primary Care Provider [phone] Allergies Active Allergy Reactions Criticality Noted Date [...] tablet (5 mg). 05/28/2016 Active HYDROcodone-gudelia taminophen (Linwood) 10-325 MG tablet 1 tablet (10 mg of hydrocodone). 05/01/2023 Active dicyclomine (Bentyl) 10 MG capsule 1 capsule (10 mg). 03/27/2023 Active dexlansoprazole (Dexilant) [address] capsule 1 capsule (60 mg). 05/28/2016 Active fluconazole (Diflucan) 100 MG tablet 1 tablet (100 mg). 08/16/2023 Active Active Problems No known active problems Encounters Date Type Department Care Team Description 02/24/2025 11:00 AM EST Office Visit [facility] [address] [place] [address] Care, Dentistry Urgent Pain due to dental caries (Primary Dx) 02/24/2025 9:00 AM EST Office Visit [facility] [address] [place] [phone] Kirstie Webb Pain due to dental caries (Primary Dx) 02/24/2025 Travel 02/23/2025 Travel 02/22/2025 Telephone [facility] [address] [place] [address] Amanda Deras, EDYTA 02/11/2025 9:00 AM EST Office Visit [facility] [address] [place] [address] Sam Flores Encounter for dental examination (Primary Dx); Dental caries 02/11/2025 Travel 01/26/2025 Telephone [facility] [address] [place] [address] Sam Flores from Last 3 Months Family [...] Description 04/09/2025 12:30 PM EST Evaluation [facility] [address] [address] 04/15/2025 2:00 PM EST Office Visit [facility] [address] [place] [address] Sam Flores Health Maintenance Due Date Last Done Comments Dental Prophylaxis 1958 Dental X-Ray: Bitewings 1958 Dental X-Ray: Full Mouth 1958 [facility]-Bone Density Scan 1958 [facility]-Depression Screening 1958 [facility]-Hepatitis C Screening 1958 [facility]-Medicare Annual Wellness (AWV) 1958 [facility]-Infant/Child/Adol SDOH Screenings 1958 [facility]- SDOH Screenings 1976 [facility]-Adult SDOH Screenings 1976 CT Colonography 2003 Colonoscopy 2003 FIT-DNA 2003 FIT 2003 FOBT 2003 Sigmoidoscopy 2003 [facility]-Colorectal Cancer Screening 2003 [facility]-Pneumococcal Vaccine: 50 + Years (1 of 1 - PCV) 2008 [facility]-Breast Cancer Screening 04/06/201703/12, 04/06/2015 WXA-NPJPI-35 Vaccine (3 - 2024- season) 2024 01/20/2021, 06/16/2020 [facility]-Influenza Vaccine (#1) 11/09/202412/26, 02/22/2023 Dental Oral Exam 08/13/2025 02/11/2025 [facility]-Diabetes: Hemoglobin A1C 11/13/2025 11/13/2024 [facility]-DTaP,Tdap,and Td Vaccine s (3 - Td or Tdap) 11/09/2027 11/08/2017, 06/22/2009, 08/29/2001 [facility]-RSV Vaccine: 60+ Years o r (1 - 1-dose 75+ series) 2033 [facility]-Zoster Vaccines Completed 04/28/2024, 12/27/2023 [facility]-Obesity Intervention Completed 025, 11/12/2023, 10/10/2023 HPV Vaccines (No Doses Required) Completed [facility]-HIB Vaccines Aged Out No longer e [...] on patient's age to complete this topic Procedures Procedure Name Priority Date/Time Associated Diagnosis Comments 26 EXTRACTION, ERUPTED TOOTH OR EXPOSED ROOT (ELEVATION AND/OR FORCEPS REMOVAL) Routine 02/24/2025 11:00 AM EST Pain due to dental caries LIMITED ORAL EVALUATION - PROBLEM FOCUSED Routine 02/24/2025 9:00 AM EST Pain due to dental caries 26 INTRAORAL - PERIAPICAL FIRST RADIOGRAPHIC IMAGE Routine 02/24/2025 9:00 AM EST Pain due to dental caries COMPREHENSIVE ORAL EVALUATION - NEW OR ESTABLISHED [...] AMALGAM FILLING Routine 02/11/2025 12:00 AM EST from Last 3 Months Insurance SANDER [id number] MEDICARE [facility] PRIORITY 1 CARD Care Teams Gas Appliance Repairer Relationship Specialty Start Date End Date Adryan Cooper MD [facility] [id number] PCP - General 07/22/20
--- OUTSIDE RECORDS SUMMARY | 2025-03-09 09:57 | XMS_ITS | Encounter Summary ---
Author Organization [facility] Address [address] [place] [address] Care Team Providers Care City Controller Name Role Phone Sandra Orozco APRN Primary Care Provider [phone] Encounter Details Date Type Department Care Team (Latest Contact Info) Description 02/16/2025 Travel Social History Tobacco Use Types Packs/Day Years Used Date Smoking Tobacco: Former Cigarettes 2 45 Q uit: 05/10/2023 Smokeless Tobacco: Never Comments:Liked to smoke Alcohol Use Standard Drinks/Week Comments Not Currently 0 (1 standard drink = 0.6 oz pur e alcohol) former 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 company threatened [...] Not very hard 11/13/2024 [facility] [place] of Occupat ional Health - Occupational Stress [...] Description 08/17/2025 12:00 PM EDT Office Visit [facility] [address] [facility] [address] [place] [phone] Christy Kirk MD [address] [facility] [address] [place] [address] documented as of this encounter Visit Diagnoses Not on filedocumented in this encounter Care Teams City Controller Relationship Specialty Start Date End Date Sandra Orozco APRN [address] [place] [address] [address] PCP - General Internal Medicine 05/11/24 documented as of this encounter
--- OUTSIDE RECORDS SUMMARY | 2025-03-09 09:57 | XMS_ITS | Clinical Summary ---
Author Organization [employer] ([place], [place], [place], [place], [place]) Address [address] [place] [address] Care Team Providers Care Canoe Maker Name Role Phone Ernesto Sandra MIRANDA Primary [...] your living situation today? I have a [facility] place to live 10/13/2023 Think [...] Do you speak a language other than Uzbek at [facility]? No 10/13/2023 Do you want [...] 06/22/2009, 08/29/2001 Medical Devices Implanted Type Area Balloon Artist Device Identifier Shelf Expiration Date Model / Serial / Lot Sealant Durasl Spine 5ml [id number] - [id number] Implanted:Qty: 1 on 01/31/2022 by Emeka Fernández MD at [facility] IMPLANTS N/A: Back [employer] 07/09/[id number] / / [id number] Cement Spinal Confidence 2839-10-000 - [id number] Implanted:Qty: 2 on 10/14/2023 at [facility] IMPLANTS N/A: Back J &J:DEPUY:DEPUY SPINE 06/08/2025 0 / / [id number] Insurance MEDICARE PART A B GENERIC COMMERCIAL Advance Directives For more information, please contact: [phone] Documents on File Type Date Recorded Patient Truck Hop Expl anation Advance Directives and Livin g [...] Son First Alternate Healthcare Decision-Maker Care Teams Canoe Maker Relationship Specialty Start Date End Date Sandra Orozco CARDIOPULMONARY TECHNOLOGIST CHIEF [address] [place] [address] PCP - General Nurse Practitioner 01/24/22
--- OUTSIDE RECORDS SUMMARY | 2025-03-09 09:57 | XMS_ITS | Encounter Summary ---
Author Organization [facility] Address [address] [place] [address] Care Team Providers Care Director Of Clinical Services Name Role Phone Adryan Cooper MD Primary Care Provider [phone] Encounter Details Date Type Department Care Team (Late Contact Info) Description 01/26/2025 Telephone [facility] [address] [place] [address] Sam Flores Social History Tobacco Use Types [...] Description 04/09/2025 12:30 PM EST Evaluation [facility] [address] [phone] 04/15/2025 2:00 PM EST Office Visit [facility] [address] [place] [address] Sam Flores documented as of this encounter Visit Diagnoses Not on filedocumented in this encounter Additional Health Concerns Assessment Noted Time A Body Mass Index follow-up plan has been documented for the patient 11/12/2023 11:43 AM EDT documented as of this encounter Care Teams Director Of Clinical Services Relationship Specialty Start Date End Date Adryan Cooper MD Counts Include [address] [facility] [address] PCP - General 07/22/20 documented as of this encounter
--- OUTSIDE RECORDS SUMMARY | 2025-03-09 09:57 | XMS_ITS | Referral Summary ---
Author Organization [employer] ([place], [place], [place], [place], [place]) Address [address] [place] [address] Care Team Providers Care Medical Liaison Name Role Phone Ernesto Sandra MIRANDA Primary Care Provider [phone] Allergies Active Allergy Reactions Criticality Noted Date [...] your living situation today? I have a [facility] place to live 10/13/2023 [...] speak a language other than Indonesian at [facility]? No 10/13/2023 [...] on file Medical Devices Implanted Type Area Veterans' Coordinator Device Identifier Shelf Expiration Date Model / Serial / Lot Sealant Durasl Spine 5ml [id number] - [id number] Implanted:Qty: 1 on 01/31/2022 by Emeka Fernández MD at [facility] IMPLANTS N/A: Back [employer] 07/09/[id number] / / [id number] Cement Spinal Confidence 2839-10-000 - [id number] Implanted:Qty: 2 on 10/14/2023 at [facility] IMPLANTS N/A: Back J &J:DEPUY:DEPUY SPINE 06/08/2025 0 / / [id number] Insurance MEDICARE PART A B GENERIC COMMERCIAL Advance Directives For more information, please contact: [phone] Documents on File Type Date Recorded Patient Customer Sales Distributor Expl anation Advance Directives and Marixa singh [...] Son First Alternate Healthcare Decision-Maker Care Teams Medical Liaison Relationship Specialty Start Date End Date Sandra Orozco, RUBEN [address] [id number] PCP - General Nurse Practitioner 01/24/22
--- OUTSIDE RECORDS SUMMARY | 2025-03-09 09:57 | XMS_ITS | Continuity of Care Document ---
Author Organization [facility], PAIN MEDICINE [address] [place] [address] Care Team Providers Care Marine Biologist Name Role Phone GLADIS DELCID Primary Care Provider Assessment Encounter Date Assessment Date Assessment LastModified by Organization Details LastModified Time 02/18/2025 02/18/2025 Plan: I have personally reviewed [...] May fill 02/26/25. Preventative Care: Referred by Winsome Gallagher APRN. Return to Clinic in two month to f/u on the treatment plan. [email or web address] Not available 02/18/2025 12:12:19 Plan of Treatment Reminders Order Date Submit Date Provider Last Modified By Organization Details Last Modified Time Details Appointments RECHECK 2025 10:45A Matt KINSEY MD Not available Not available Not available Lab None recorded. Referral None recorded. Procedures None recorded. Surgeries None recorded. Imaging None recorded. Medication Orders hydrocodo ne 7.5 mg-acetam inophen 325 mg tablet 2024 025 LUZHONORIO [facility], [address] [facility] [address] [place], [id number], 02/18/2025 10:47:53 hydrocodo ne 7.5 mg-acetam inophen 325 mg tablet 2024 025 FONTANELLE [facility], [address] [facility] [address] [place], [id number], 02/18/2025 10:47:53 Patient TargetsNo targets recorded. Patient InstructionsNo instructions recorded. Reason for Referral None Reported. Problems Name Problem SNOMED Code Status Onset Date Resolution Date Notes Provider Name and Address Organization Details Recorded Time Low back pain 006334781 Active Status: Active Not Available [facility] 7 06:47:46 Disorder of bone and articular cartilage 836777426 Active 2015 Status: Active Not Available [facility] 6 05:37:02 Lumbosacr al radiculop athy 1795349 Active 2015 From Automated Load;Provi boris: Emeka Fernández;St atus: Active Not Available [facility] 7 08:30:56 Problem Notes None recorded. Procedures Surgical History Date Name Laterality Status Provider Name and Address Organization Details Recorded Time 04/10/19 25 Date of Last Mammogram completed Amira Hogan [facility] 05/04/2024 14:53:23 tonsillectomy completed Kailey [facility] 06/29/2021 11:07:23 partial hysterectomy completed Kailey BOUCHER [facility] 06/29/2021 11:07:41 cholecystectomy completed Kailey [facility] 06/29/2021 11:07:49 Unlisted px accessory sinus completed Kailey [facility] 06/29/2021 11:08:12 Unlisted px phrnx adnd/tnsl [facility] 06/29/2021 11:08:24 procedure on vein completed Kailey Arroyo [facility] 06/29/2021 11:08:40 Appendectomy completed Amira Hogan [facility] 05/04/2024 14:53:09 Imaging Results None recorded. Procedure Notes None recorded. Medical Equipment None Reported. Allergies Allergen ID Allergen Name Allergen Category Reaction Reaction Severity Criticality Documentation Date Start Date Code Code System Note Provider Name and Address Organization Details Recorded Time 299414 Cipro medicatio n Not available Not available Not available 02/02/20162011 34442 3 RxNorm Comme nt: Creat ed By: Storm Bonner;Ruthie reate d Date: 2011 10:08 :22 AM; Not Available [facility] 6 12:52:49 171472 Celebrex medicatio n Not available Not available Not available 02/03/20162011 11546 7 RxNorm Comme nt: Creat ed By: Storm Bonner;C reate d Date: 2011 10:08 :34 AM; Not Available [facility] 6 05:46:24 307716 Levaquin medicatio n Not available Not available Not available 02/03/20162011 97665 2 RxNorm Comme nt: Creat ed By: Storm Bonner;C reate d Date: 2011 10:07 :37 AM; Not Available [facility] 6 08:06:37 762212 Macrobid medicatio n Not available Not available Not available 02/03/20162011 76848 1 RxNorm Comme nt: Creat ed By: Storm Bonner;C reate d Date: 2011 10:08 :04 AM; Not Available [facility] 6 08:06:37 145694 Product containin g penicilli n (product) medicatio n Not available Not available Not available 06/29/2021 54547 8001 [facility]ED [facility] 11:[facility]22 567886 gabapenti n medicatio n Not available Not available Not available 06/29/2021 84295 [facility] 2 11:02:39 336097 leflunomi de medicatio n Not available Not available Not available 06/29/2021 02093 RxNorm Kailey Valerie null, [facility] 2 11:02:54 704938 Naprosyn medicatio n Not available Not available Not available 06/29/2021 36397 2 RxNorm Kailey Valerie null, [facility] 2 11:03:06 177950 dextromet horphan hydrobrom mónica medicatio n Not available Not available Not available 05/04/2024 96731 0 RxNorm Amira Hogan [facility], [facility] 5 15:09:56 164292 Omnicef medicatio n Not available Not available Not available 05/04/2024 24148 RxNorm Amira Hogan null, [facility] 5 15:10:19 788329 nortripty line medicatio n Not available Not available Not available 05/04/2024 7531 RxNorm Amira Hogan [facility], [facility] 5 15:10:37 269295 Lyrica medicatio n Not available Not available Not available 05/04/2024 77204 1 RxNorm Amiradary Hogan [facility], [facility] 5 15:10:45 312880 celecoxib medicatio n gi bleed Not available high 02/18/20252024 10694 7 RxNorm Not Available luz - External Data [employer] - prod 5 04:22:37 973704 dexametha sone medicatio n other Not available low 02/18/20252024 3264 RxNorm Off rona ce Not Available luz - External Data Service - prod 5 04:22:37 615612 hydrocodo ne Not available hives itching other swelling Not available Not available Not available Not available high 02/18/20252024 5489 RxNorm Abdom inal pain, diffi culty swall owing Not Available luz - External Data Service - prod 5 04:22:37 489536 levofloxa catalina medicatio n other Not available low 02/18/20252024 36610 RxNorm Shake s Not Available luz - External Data Service - prod 5 04:22:37 520163 nitrofura ntoin medicatio n other Not available low 02/18/20252024 7454 RxNorm Swell ing all over Not Available luz - External Data Service - prod 5 04:22:37 713212 evolocuma b medicatio n other Not available low 02/18/20252024 60511 84 RxNorm Ever ythin g it had liste d Not Available luz - External Data Service - prod 5 04:22:37 926138 Penicilli n Not available itching mild Not available 02/18/20252020 17889 RxNorm Not Available luz - External Data Service - prod 5 04:22:49 068727 nortripty line hydrochlo ride medicatio n Not available Not available Not available 02/18/20252020 06940 0 RxNorm Not Available luz - External Data Service - prod 5 04:22:49 692580 cefdinir medicatio n Not available Not available high 02/18/20252021 43761 RxNorm Not Available luz - External Data [employer] - prod 5 04:22:56 484147 ciproflox acin medicatio n Not available Not available high 02/18/20252011 2551 RxNorm Not Available luz - External Data Service - prod 5 04:22:56 291936 naproxen medicatio n Not available Not available high 02/18/20252021 7258 RxNorm SORE THROA T, HANDS TINGL ING, FELT LIKE THROA T WAS CLOSI NG UP Not Available luz - External Data Service - prod 5 04:22:56 049989 nitrofura ntoin, macrocrys tals / nitrofura ntoin, monohydra te medicatio n Not available Not available high 02/18/20252011 86099 2 RxNorm Not Available luz - External Data Service - prod 5 04:22:56 898731 formotero l Not available anaphylax is Not available high 02/18/20252023 05507 RxNorm Not Available luz - [employer] - prod 5 04:23:02 703055 tramadol medicatio n other Not available low 02/18/20252023 99719 RxNorm Not Available luz - [employer] - prod 5 04:23:02 903189 vancomyci n medicatio n other Not available low 02/18/20252023 47853 RxNorm Not Available luz [email or web address] External Data Service - [facility] 5 04:23:02 Medications Name Sig Start Date [...] Not Available Vitals Date Recorded Body height Pain severity - 0-10 verbal numeric rating [Score] - Reported Systolic And Diastolic Provider Name and Address Organization Details Last Updated DateTime 02/18/2025 152.4 cm 8 128/68 mm[Hg] Blanca Gannon [facility] 02/18/2025 10:08:51 Social History Question Answer Notes LastModified by Organizat ion Details LastModified Time Tobacco Smoking Status Former Smoker Blanca Gannon [facility] 11/19/2023 14:27:06 What Was The [...] 06/29/2021 Are you currently employed? No disabled [place] [address] Information not available 05/04/2024 Mental Status None recorded. Family History Relationship Description Onset Age of this Age Resolved Age Notes LastModified by Organization Details LastModified Time Unspecified Relation Malignant neoplastic disease [email or web address] Not available 04/12 14:49:35 Unspecified Relation Diabetes mellitus [email or web address] Not available 04/12 14:49:35 Mother Familial cancer of breast Not available 04/12 14:49:35 Mother Malignant neoplasm of pancreas [email or web address] Not available 2024 14:51:13 Mother Chronic obstructive pulmonary disease [email or web address] Not available 2024 14:51:40 Father Hypercholest erolemia [email or web address] Not available 2024 14:51:58 Medical History Condition Response Other N Thyroid Disease N Kidney Stones N Blood Transfusion N Breast Cancer N Emphysema Y Colon/Rectal Disorders N Sexually Transmitted Disease N COPD Y Depression Y Glaucoma N Pneumonia Y Breast Problem [...] Y Meningitis N Ulcers N Heart Attack ([place]) N Mental Illness Y Ovarian Cancer N [...] ICD10 Code Diagnosis IMO Codes Diagnosis Note [id number] RAOUL KINSEY MD PAIN MEDICINE [address] [place] [address] 02/18/2025 09:39:23 02/18/2025 10:15:56 Chronic low back pain 955658464 M54.50 Degenerati on of lumbar intervertebral disc 02892113 M51.362 Spinal hilda nosis of lumbar region 36949897 M48.062 Health Concerns Section Related Observation LastModified by Organization Detai ls LastModified Time None Recorded Concern Status LastModified by Organization Details LastModified Time None Recorded Payers Encounter Date Sequence Insurance Name Policy Number Policy Sanchez Covered Member ID Sanchez Member ID Guarantor Name 02/18/2025 1 [place] ([place]ARE) Casi Cruz [id number] Casi Cruz 02/18/2025 2 COMBINED INSURANCE - [place] [employer] (MEDICARE SUPPLEMENT) Casi Cruz [id number] Casi Cruz Notes Date Note Type Note Provider Name and Address Organization Details Recorded Time 02/18/2025 text/html The pt complains of low [...] 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 She states she does take an isjp-pye-ybbeixi stool softener/laxative. She states she has been [...] s visit.Etoh-Denied. Tobacco-Denied. CBD-Denied. RAOUL KINSEY MD [facility] [place], [address], [facility] 02/18/2025 12:12:48 OBGyn Episode No OBEpisode recorded.
--- OUTSIDE RECORDS SUMMARY | 2025-03-09 09:57 | XMS_ITS ---
Laboratory report Created on: February 09, 2025 JACKELYN GRECO : 1960 Sex: Female Author Organization Unknown PROBLEMS Problems List Code Description RESULTS Laboratory Orders Date Order Code Test 2023-09-14 [id number] CORTISOL 2023-09-14 471783 ACTH, PLASMA Laboratory Results Date LOINC Test Value Unit Reference Range Interpre tation 2023-09-14 2143-6 CORTISOL 3.1 UG/DL 6.2-19.4 L 2023-09-14 2141-0 ACTH, PLASMA 10 PG/ML 7.2-63.3
--- OUTSIDE RECORDS SUMMARY | 2025-03-09 09:57 | XMS_ITS ---
Laboratory report Created on: February 09, 2025 JACKELYN GRECO : 1960 Sex: Female Author Organization Unknown PROBLEMS Problems List Code Description RESULTS Laboratory Orders Date Order Code Test 2024-10-05 [id number] RHEUMATOID FACTO R (RF) 2024-10-05 [id number] MARSHALL BY IFA RFX T ITER/PATTERN Laboratory Results Date LOINC Test Value Unit Reference Range Interpre tation 2024-10-05 68181-4 RHEUMATOID FACTOR (RF) 13.3 IU/ML <14.0 2024-10-05 34393-4 MARSHALL BY IFA RFX TITER/PATTERN N
--- OUTSIDE RECORDS SUMMARY | 2025-03-09 09:58 | XMS_ITS | Continuity of Care Document ---
Author Organization [facility] Clini c, PAIN MEDICINE [address] [place] [address] Care Team Providers Care Calender Wind Up Helper Name Role Phone GLADIS DELCID Primary Care Provider [phone] Assessment Encounter Date Assessment Date Assessment LastModified [...] inophen 325 mg tablet 2024 025 LUZ [facility], [address] [place], [phone], 12/22/2024 11:18:36 hydrocodo ne 7.5 mg-acetam inophen 325 mg tablet 2024 025 [facility], [address] [place] [address] [address] [place], [id number], 12/22/2024 11:18:36 Patient TargetsNo targets recorded. Patient InstructionsNo instructions recorded. Reason for Referral None Reported. 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 Procedures Surgical History Date Name Laterality Status Provider Name and Address Organization Details Recorded Time 04/10/19 25 Date of Last Mammogram completed Amira Hogan [facility] 05/04/2024 14:53:23 tonsillectomy completed [facility] Valerie [facility] 06/29/2021 11:07:23 partial hysterectomy completed Kailey Valerie BOUCHER [facility] 06/29/2021 11:07:41 cholecystectomy completed Kailey BOUCHER [facility] 06/29/2021 11:07:49 Unlisted px accessory sinus completed Kailey BOUCHER [facility] 06/29/2021 11:08:12 Unlisted px phrnx adnd/tnsl completed Kailey BOUCHER [facility] 06/29/2021 11:08:24 procedure on vein completed [facility] Valerie Arroyo [facility] 06/29/2021 11:08:40 Appendectomy completed Amiradary Hogan [facility] 05/04/2024 14:53:09 Imaging Results None recorded. Procedure Notes None recorded. Medical Equipment None Reported. Allergies Allergen ID Allergen Name Allergen Category Reaction Reaction Severity Criticality Documentation Date Start Date Code Code System Note Provider Name and Address Organization Details Recorded Time 724826 Cipro medicatio n Not available Not available Not available 02/02/20162011 44350 3 RxNorm Comme nt: Creat ed By: Storm Bonner;C reate d Date: 2011 10:08 :22 AM; Not Available [facility] 6 12:52:49 178084 Celebrex medicatio n Not available Not available Not available 02/03/20162011 26288 7 RxNorm Comme nt: Creat ed By: Storm Bonner;C reate d Date: 2011 10:08 :34 AM; Not Available [facility] 6 05:46:24 122206 Levaquin medicatio n Not available Not available Not available 02/03/20162011 94565 2 RxNorm Comme nt: Creat ed By: Storm Bonner;C reate d Date: 2011 10:07 :37 AM; Not Available [facility] 6 08:06:37 455249 Macrobid medicatio n Not available Not available Not available 02/03/20162011 00120 1 RxNorm Comme nt: Creat ed By: Storm Bonner;C reate d Date: 2011 10:08 :04 AM; Not Available [facility] 6 08:06:37 697438 Product containin g penicilli n (product) medicatio n Not available Not available Not available 06/29/2021 94859 8001 SNOMED Kailey Valerie null, [facility] 2 11:02:22 939257 gabapenti n medicatio n Not available Not available Not available 06/29/2021 98865 RxNorm Kailey Valerie null, [facility] 2 11:02:39 511511 leflunomi de medicatio n Not available Not available Not available 06/29/2021 14847 RxNorm Kailey Valerie null, [facility] 2 11:02:54 213420 Naprosyn medicatio n Not available Not available Not available 06/29/2021 87550 2 RxNorm Kailey Valerie null, [facility] 2 11:03:06 590499 dextromet horphan hydrobrom mónica medicatio n Not available Not available Not available 05/04/2024 34334 0 RxNorm Amira Hogan null, [facility] 5 15:09:56 322718 Omnicef medicatio n Not available Not available Not available 05/04/2024 46725 RxNorm Amira Hogan null, [facility] 5 15:10:19 580453 nortripty line medicatio n Not available Not available Not available 05/04/2024 7531 RxNorm Amira Hogan null, [facility] 5 15:10:37 284670 Lyrica medicatio n Not available Not available Not available 05/04/2024 72745 1 RxNorm Amira Hogan [facility], [facility] 5 15:10:45 352866 celecoxib medicatio n gi bleed Not available high 02/18/20252024 85516 7 RxNorm Not Available luz - External Data Service - prod 5 04:22:37 065011 dexametha sone medicatio n other Not available low 02/18/20252024 3264 RxNorm Off rona ce Not Available luz - External Data Service - prod 5 04:22:37 221739 hydrocodo ne Not available hives itching other swelling Not available Not available Not available Not available high 02/18/20252024 5489 RxNorm Abdom inal pain, diffi culty swall owing Not Available luz - External Data Service - prod 5 04:22:37 556742 levofloxa catalina medicatio n other Not available low 02/18/20252024 61021 RxNorm Shake s Not Available luz - External Data Service - prod 5 04:22:37 778292 nitrofura ntoin medicatio n other Not available low 02/18/20252024 7454 RxNorm Swell ing all over Not Available luz - External Data Service - prod 5 04:22:37 489288 evolocuma b medicatio n other Not available low 02/18/20252024 24511 84 RxNorm Ever ythin g it had liste d Not Available luz - External Data Service - prod 5 04:22:37 975769 Penicilli n Not available itching mild Not available 02/18/20252020 62390 RxNorm Not Available luz - External Data Service - prod 5 04:22:49 639679 nortripty line hydrochlo ride medicatio n Not available Not available Not available 02/18/20252020 95839 0 RxNorm Not Available luz - External Data Service - prod 5 04:22:49 602476 cefdinir medicatio n Not available Not available high 02/18/20252021 18562 RxNorm Not Available luz - External Data Service - prod 5 04:22:56 713776 ciproflox acin medicatio n Not available Not available high 02/18/20252011 2551 RxNorm Not Available luz - External Data Service - prod 5 04:22:56 550872 naproxen medicatio n Not available Not available high 02/18/20252021 7258 RxNorm SORE THROA T, HANDS TINGL ING, FELT LIKE THROA T WAS CLOSI NG UP Not Available luz - External Data Service - prod 5 04:22:56 155092 nitrofura ntoin, macrocrys tals / nitrofura ntoin, monohydra te medicatio n Not available Not available high 02/18/20252011 59732 2 RxNorm Not Available luz - External Data Service - prod 5 04:22:56 364395 formotero l Not available anaphylax is Not available high 02/18/20252023 67717 RxNorm Not Available luz - External Data Service - prod 5 04:23:02 131656 tramadol medicatio n other Not available low 02/18/20252023 08114 RxNorm Not Available luz - External Data Service - prod 5 04:23:02 435289 vancomyci n medicatio n other Not available low 02/18/20252023 34797 RxNorm Not Available luz - External Data Service - prod 5 04:23:02 Medications [...] Last Updated DateTime 152.4 cm 35 kg/m2 40061.0 3 g 9 90 % 2 L/min 73.02 /min 118/64 mm[Hg] Blanca Gannon [facility] 5 10:50:52 Social History Question Answer Notes LastModified by Organizat ion Details LastModified Time Tobacco Smoking Status Former Smoker Blanca Gannon [facility] 11/19/2023 14:27:06 What Was The [...] 06/29/2021 Are you currently employed? No disabled [place] [address] Information not available 05/04/2024 Mental Status None recorded. Family History Relationship Description Onset Age of this Age Resolved Age Notes LastModified by Organization Details LastModified Time Unspecified Relation Malignant neoplastic disease [email or web address] Not available 04/12 14:49:35 Unspecified Relation Diabetes mellitus [email or web address] Not available 04/12 14:49:35 Mother Familial cancer of breast [email or web address] Not available 04/12 14:49:35 Mother Malignant neoplasm of pancreas [email or web address] Not available 2024 14:51:13 Mother Chronic obstructive pulmonary disease [id number] Not available 2024 14:51:40 Father Hypercholest erolemia [email or web address] Not available 2024 14:51:58 Medical History Condition [...] Y Osteoporosis/Osteopenia Y Meningitis N Heart Attack ([place]) N Ulcers N Mental Illness Y Diabetes [...] ICD10 Code Diagnosis IMO Codes Diagnosis Note [id number] RAOUL KINSEY MD PAIN MEDICINE [address] [place] [address] 12/22/2024 10:37:41 12/22/2024 10:59:26 Chronic low back pain 324407903 M54.50 Degenerati on of lumbar intervertebral disc 69519731 M51.362 Spinal hilda nosis of lumbar region 53458275 M48.062 Health Concerns Section Related Observation LastModified by Organization Detai ls LastModified Time None Recorded Concern Status LastModified by Organization Details LastModified Time None Recorded Payers Encounter Date Sequence Insurance Name Policy Number Policy Sanchez Covered Member ID Sanchez Member ID Guarantor Name 12/22/2024 1 [place] Casi Cruz [id number] Casi Cruz 12/22/2024 2 COMBINED INSURANCE - [place] [employer] (MEDICARE SUPPLEMENT) Casi Cruz [id number] Casi Cruz Notes Date Note Type Note [...] bladder-leaks. She states she does take an oaeo-jnt-lvpymoc stool softener/laxative. She states she has been [...] s visit.Etoh-Denied. Tobacco-Denied. CBD-Denied. RAOUL KINSEY MD [facility] [place], [address], [facility] 12/22/2024 13:29:43 OBGyn Episode No OBEpisode recorded.
--- OUTSIDE RECORDS SUMMARY | 2025-03-09 09:58 | XMS_ITS ---
Laboratory report Created on: February 09, 2025 JACKELYN GRECO : 1960 Sex: Female Author Organization Unknown PROBLEMS Problems List Code Description RESULTS Laboratory Orders Date Order Code Test 2024-07-06 [id number] LIPOPROTEIN (A) 2024-07-06 725746 C-REACTIVE PROTE IN, CARDIAC Laboratory Results Date LOINC Test Value Unit Reference Range Interpre tation 2024-07-06 10060-3 LIPOPROTEIN (A) 148.3 NMOL/L <75.0 H 2024-07-06 04764-6 C-REACTIVE PROTE IN, CARDIAC 4.39 MG/L 0.00-3.00 H
== END 2025-03-08 23:59 | disposition home or self-care (01) ==
LOC: LAB.DROPOF 03-09 09:49
PROVIDERS: PCP Nurse Practitioner Family; Visit Provider Nurse Practitioner
DX: N39.0 Urinary tract infection, site not specified (principal)
CPT/HCPCS: 87086; 87088